=== PATIENT | female | born 1965 | race Caucasian/White ===

== ENCOUNTER 2022-08-24 14:33 | Outpatient (CLI) | payer OTHER, SELFPAY ==
--- NOTE | ~2022-08-24 | XR_ITS ---
XR abdomen/kub 1V DATE: 08/24/2022 15:13 INDICATION: Right flank pain, right groin pain TECHNIQUE: 3 supine AP views COMPARISON: None FINDINGS: Surgical clips overlie the right pelvic area. There is a prominent amount of fecal material in the colon. No bowel obstruction is evident. Associat ed as are intact. No visceromegaly is detected. The lung bases appear clear of infiltrate or consolidation. Heart size appears within normal range. There is asymmetric severe right hip osteoarthritis with suggestion of possible avascular necrosis ri ght femoral head. Moderately severe left hip osteoarthritis. There is mild rotatory dextroscoliosis and prominent multilevel degenerative disc disease of the lumb ar spine. There is degenerative spurring of the lower thoracic spine. IMPRESSION: Prominent amount of fecal material within the colon Surgical clips, right pelvic area Bilateral hip osteoarthritis, very severe the right, moderately severe on the left Suggestion of avascular necrosis of right femoral head Reviewed, dictated and finalized at [facility]. Reviewed, dictated and finalized at location A. 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
--- NOTE | ~2022-08-24 | XR_ITS ---
XR hip RT min 2V DATE: 08/24/2022 15:13 INDICATION: Fall one and half years ago with right groin pain for last few months TECHNIQUE: AP and lateral views of right COMPARISON: 02/16/2010 pelvis FINDINGS: There is severe right hip joint space narrowing, the joint space virtually obliterated. The re is degenerative spurring at the acetabulum and femoral head. There is extensive degenerative cysti c change of the right acetabulum and right femoral head. No fracture or dislocation or bone destruction is noted otherwise. Surgical clips overlie the right pelvis. Right femoral artery prominent calcifications. IMPRESSION: Severe right hip osteoarthritis Reviewed, dictated and finalized at location A. N PEGGER
== END 2022-08-24 14:34 | disposition home or self-care (01) ==
LOC: CHSIMG 14:38
PROVIDERS: PCP Physician Assistant; Visit Provider Physician Assistant
DX: R10.31 Right lower quadrant pain (principal); M16.0 Bilateral primary osteoarthritis of hip; Z96.89 Presence of other specified functional implants
CPT/HCPCS: 73502; 74018

== ENCOUNTER 2023-01-22 15:53 | Outpatient (CLI) | payer OTHER, SELFPAY ==
[2023-01-22 16:33] LABS: Partial Thromboplastin Time 28.3 SEC (23.90-30.70); Prothrombin Time 10.9 Seconds (9.50-12.10)
== END 2023-01-22 15:54 | disposition home or self-care (01) ==
LOC: CHSLAB 15:56
PROVIDERS: PCP Physician Assistant
DX: M16.11 Unilateral primary osteoarthritis, right hip (principal); Z51.81 Encounter for therapeutic drug level monitoring
CPT/HCPCS: 36415; 85610; 85730; 87081

== ENCOUNTER 2023-04-30 13:51 | Outpatient (RCR) | payer OTHER, SELFPAY ==
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
--- NOTE | 2023-04-30 14:43 | OPREHPOC ---
Outpatient Therapy Plan of Care This is a Multidisciplinary Plan of Care that may contain components documented by all disciplines (PT, OT, and ST.) PT Problem 1 PT Problem #1 Knowledge Deficit PT Goal 1 Goal Indepnedent with a HEP addressing c-spine mobility and core strength Target Visit 2 PT Problem 2 PT Problem #2 Pain PT Goal 1 Goal Pt. will provide pain reports of 2/10 at worst with prolonged standing and sitting activities. Target Visit 12 PT Goal 2 Goal Pt. will improve her NDI score by 10-20% indicating improved function. Target Visit 12 PT Problem 3 PT Problem #3 Impaired Range of Motion PT Goal 1 Goal Pt. will present with 70 degrees right c-spine rotation and 35 degrees right lateral flexion of the c-spine to improve visual field. Target Visit 12 PT Problem 4 PT Problem #4 Impaired Strength PT Goal 1 Goal Pt. will improve neck strength to good (4/5) to allow for improved postural awareness.
== END 2023-05-14 23:59 | disposition home or self-care (01) ==
LOC: CHSPT 13:51
PROVIDERS: Visit Provider Physician Assistant
DX: M54.2 Cervicalgia (principal)
CPT/HCPCS: 97014; 97110; 97140; 97161; G0283

== ENCOUNTER 2023-05-22 18:33 | Inpatient (IN) | payer OTHER, SELFPAY ==
[2023-05-22] VITALS (7 sets, daily range): BP systolic 126–150; BP diastolic 67–100; PULSE 93–101; RESP 15–20; TEMP 36.6–37.2; O2SAT 97–100
--- NOTE | ~2023-05-22 | XR_ITS ---
EXAMINATION: XR ankle RT 2V INDICATION: Right ankle pain TECHNIQUE: Two views of the right ankle are obtained. COMPARISON: None available FINDINGS: There are changes of transmetatarsal amputation of the first toe. There is diffuse soft tis gonzalo swelling of the foot. There are advanced degenerative changes of the midfoot and at the talocalca rekha articulation. No definite fracture is identified. There is osteopenia of the calcaneus. IMPRESSION: 1. Advanced degenerative changes of the foot, changes of prior amputation in the toes, and diffuse so ft tissue swelling with possible osteomyelitis of the calcaneus. Reviewed, dictated and finalized at location F. IMPRESSION: 1. Advanced degenerative changes of the foot, changes of prior amputation in th e toes, and diffuse soft tissue swelling with possible osteomyelitis of the velvet caneus.
--- NOTE | ~2023-05-22 | XR_ITS ---
EXAMINATION: XR foot RT 2V INDICATION: Right foot pain TECHNIQUE: Two views of the right foot are obtained. COMPARISON: None available FINDINGS: There are changes of transmetatarsal amputation of the first toe. There is amputation of th e second toe through the middle phalanx. There is diffuse soft tissue swelling of the foot. There are advanced degenerative changes of the midfoot and at the talocalcaneal articulation. No definite frac ture is identified. There is osteopenia of the calcaneus. IMPRESSION: 1. Advanced degenerative changes of the foot, changes of prior amputation in the toes, and diffuse so ft tissue swelling with possible osteomyelitis of the calcaneus. Reviewed, dictated and finalized at location F. IMPRESSION: 1. Advanced degenerative changes of the foot, changes of prior amputation in th e toes, and diffuse soft tissue swelling with possible osteomyelitis of the velvet caneus.
--- NOTE | ~2023-05-22 | XR_ITS ---
EXAMINATION: XR chest 1V portable INDICATION: Chest pain TECHNIQUE: Portable AP chest at 2036 hours COMPARISON: None available FINDINGS: The lungs are free of acute opacities. No pleural effusion or pneumothorax. The cardiomedia stinal silhouette is normal. IMPRESSION: 1. No acute cardiopulmonary abnormality. Reviewed, dictated and finalized at location F.
--- NOTE | ~2023-05-22 | XR_ITS ---
EXAMINATION: XR hip RT 2V w AP pelvis INDICATION: Right hip pain TECHNIQUE: AP view of the pelvis and two views of the right hip are obtained on four radiographs COMPARISON: 08/24/2022 FINDINGS: There are changes of interval right total hip arthroplasty. The femoral component is supero laterally dislocated relative to the acetabular component. No fracture is identified. There are surgi velvet clips in the right pelvis. Calcified atherosclerosis is noted. There is severe lumbar spondylosis . IMPRESSION: 1. Superolateral dislocation of the femoral component of the right hip arthroplasty. Reviewed, dictated and finalized at location F. IMPRESSION: 1. Superolateral dislocation of the femoral component of the right hip arthropl astmariza.
--- NOTE | ~2023-05-22 | XR_ITS ---
EXAMINATION: XR hip RT 1V INDICATION: Post reduction TECHNIQUE: AP view of the right hip is obtained. COMPARISON: 2033 hours FINDINGS: The previously described dislocated right hip arthroplasty has been reduced. Alignment is n ormal. No fracture is identified. There are surgical clips in the right pelvis. Calcified atheroscler osis is noted. IMPRESSION: 1. Reduced right hip arthroplasty dislocation. Reviewed, dictated and finalized at location F.
[2023-05-22] MEDS: fentaNYL CITRATE INJ (*CRX) 100 MCG/2 ML VIAL IV PUSH (18:54)
--- NOTE | 2023-05-22 19:32 | PC.NURSE ---
This RN assumed care of pt at this time.
--- NOTE | 2023-05-22 19:55 | ECG_ITS ---
Measurements Intervals Blessing Rate: 93 P: 56 MD: 200 QRS: 59 QRSD: 115 T: 62 QT: 383 QTc: 477 Interpretive Statements SINUS RHYTHM MODERATE INTRAVENTRICULAR CONDUCTION DELAY [105+ ms QRS DURATION, 80+ ms Q/S IN V1/V2, NO Q AND 60+ ms R IN I/aVL/V5/V6] ABNORMAL ECG NO PREVIOUS ECG AVAILABLE FOR COMPARISON Electronically Signed On 05-23-2023 10:28:21 CDT by Jesse Gilman M.D.
[2023-05-22 20:14] LABS: Basophils Percent Auto 0.5 % (0.2-1.2); Eosinophils Absolute Auto 0.1 K/mm3 (0-0.3); Eosinophils Percent Auto 1.8 % (0-4.4); Hematocrit 36.5 % (37.0-47.0); Hemoglobin 11.9 g/dL (12.0-15.0); Immature Granulocyte Absolute 0.01 K/mm3 (0.00-0.031); Immature Granulocyte Percent A 0.2 % (0-0.5); Lymphocytes Absolute Auto 0.93 K/mm3 (0.9-3.2); Lymphocytes Percent Auto 21.5 % (18.3-44.2); Mean Corpuscular HGB Conc 32.6 g/dl (32-36); Mean Corpuscular Hemoglobin 28.5 pg (26-34); Mean Corpuscular Volume 87.5 fl (80-100); Mean Platelet Volume 7.9 fl (7.4-10.4); Monocytes Absolute Auto 0.5 K/mm3 (0.1-0.6); Monocytes Percent Auto 10.9 % (2.6-8.5); Neutrophils Absolute Auto 2.8 K/mm3 (1.3-6.7); Neutrophils Percent Auto 65.1 % (45.5-73.1); Platelet Count Result 136 k/mm3 (150-375); Red Blood Count 4.17 M/mm3 (4.2-5.4); Red Cell Distribution Width 13.5 % (11.5-14.5); White Blood Count 4.3 K/mm3 (4.5-10.0)
[2023-05-22 20:24] LABS: Alanine Aminotransferase 25 U/L (6-35); Albumin Level 3.9 g/dL (3.5-5.1); Alkaline Phosphatase 112 U/L (38-126); Anion Gap 5 mmol/L (8-16); Aspartate Amino Transferase 55 U/L (14-36); Bilirubin,Total 1.1 mg/dL (0.2-1.3); Blood Urea Nitrogen 13 mg/dL (7-17); Calcium 8.9 mg/dL (8.4-10.2); Carbon Dioxide 29 mmol/L (22-30); Chloride 102 mmol/L (98-107); Estimated Glomerular Filt Rate > 60; Glucose 166 mg/dL (65-110); INR 1.2; Potassium 3.7 mmol/L (3.4-5.0); Prothrombin Time 15.8 Seconds (11.1-14.7); Sodium 136 mmol/L (137-145)
[2023-05-22 20:25] LABS: Partial Thromboplastin Time 33.6 SECONDS (22.3-36.8)
[2023-05-22 20:30] LABS: Ethanol < 10 mg/dL (<10)
--- NOTE | 2023-05-22 21:29 | ED.GENADULT ---
[facility] - General Adult General Chief complaint: Extremity Injury, Lower Stated complaint: HIP DISLOCATION Time Seen by Provider: 05/22/23 19:13 History of Present Illness HPI narrative: Patient brought to the emergency department by EMS. She is complaining of severe right hip pain. States she was getting out of her car when she felt a pop. She believes her hip is dislocated. Also is very swollen right foot appears deformed with scabbed over wounds. She states the wounds have been there for a long time. She is a history of diabetes. Patient appears very anxious and continues to twitch. Denies drug use. States it is from her psych medication Related Data Allergies Allergy/AdvReac Type Severity Reaction Status Date / Time naproxen Allergy Unknown Verified 04/24/23 13:57 Review of Systems Review of Systems: Review of systems negative except for what is documented in the [facility] Family History Family History (System 04/24/23 @ 13:57 by Serena Loaiza) Other Cerebrovascular accident Diabetes mellitus Family history of cardiovascular disease Family history of malignant neoplasm Hypertension Social History Social History (System 04/24/23 @ 13:57 by Serena Loaiza) Smoking status: Light tobacco smoker Alcohol intake: current Exam Narrative: GENERAL: Well-appearing, well-nourished, poor hygiene and twitching HEAD: Normocephalic, atraumatic. EYES: PERRLA and EOMI. ENT: Nares clear, no rhinorrhea or epistaxis. Mucous membranes moist. NECK: Supple. CHEST: Clear to auscultation. No respiratory distress. HEART: Regular rate and rhythm. ABDOMEN: Soft, nontender, nondistended. EXTREMITIEs right leg externally rotated. right foot. swollen with superficial wounds with matting in them SKIN: Warm, dry, no rash. NEURO: No focal deficits. Alert and oriented x3. PSYCH: Normal mood and affect. Course Vital Signs Vital signs: Vital Signs Temperature 36.6 C 05/22/23 18:33 Pulse Rate 93 05/22/23 18:33 Respiratory Rate 20 05/22/23 18:33 Blood Pressure 150/100 H 05/22/23 18:33 Pulse Oximetry 97 05/22/23 18:33 Oxygen Delivery Room Air 05/22/23 18:33 Temperature 36.7 C 05/22/23 23:30 Pulse Rate 98 05/23/23 00:21 Respiratory Rate 16 05/23/23 00:21 Blood Pressure 122/69 05/23/23 00:21 Pulse Oximetry 100 05/23/23 00:21 Oxygen Delivery Room Air 05/22/23 23:30 Procedures Orthopedic Joint Reduction Joint #1: Orthopedic Joint Reduction Date: 05/23/23 Analgesia: procedural sedation Pre-Procedure Neuro Vascular Exam: normal Shoulder Technique Used (if applicable): traction/counter-traction Post-reduction neuro exam: intact Post-reduction vascular: intact Post Reduction X-Ray Obtained: Yes Post Reduction X-Ray Results: reduced Splint Applied: No Patient Tolerated Procedure: well Procedural Sedation Procedural Sedation #1: Presedation Evaluation: Pt alert and oriented Procedure: right hip reduction Time Out: see RN note Informed Consent Obtained: yes Equipment in Room: bag and mask, capnography, monitor car operator, oxygen and pulse oximeter Fentanyl dose (mcg): 50 IV Etomidate dose (mg): 10 Patient Tolerated Procedure: well Complications: none Total Sedation Time (min): 8 Medical Decision Making MDM Narrative Medical decision making narrative: Superolateral dislocation of femoral component of the prosthesis on hip x-ray Foot x-ray shows likely osteomyelitis of calcaneus of right foot. Plan to sedate and reduce hip dislocation then admit for IV antibiotics for osteomyelitis [id number] Patient sedated with ketamine and fentanyl and then the right hip was reduced. Patient tolerated the sedation and procedure well. She continues to exhibit tweaking behavior. She became very aggressive stating that I accused her of using street drugs . Her
[2023-05-22] MEDS: fentaNYL CITRATE INJ (*CRX) 100 MCG/2 ML VIAL 50 MCG IV PUSH (23:00)
[2023-05-22 23:01] LABS: Appearance Urine Clear (Clear); Bacteria Urine None Seen /hpf; Bilirubin Urine Negative (Negative); Blood Urine 3+ (Negative); Color Urine Yellow (Yellow); Glucose Urine UA Negative (Negative); Ketones Urine Negative (Negative); Leukocyte Esterase Ur Negative LEU/UL (Negative); Nitrate Urine Negative (Negative); Non Pathogenic Casts 0-2; Protein Urine Negative (Negative); RBC Urine >100 /hpf (0-2); Squamous Epithelial Cell Urine None seen /hpf (Few); WBC Urine 0-5 /hpf
[2023-05-22 23:03] LABS: Add Urine Microscopic? YES
[2023-05-22] MEDS: ETOMIDATE 20 MG/10 ML AMPUL IV PUSH (23:08)
[2023-05-22 23:10] LABS: Barbiturate Screen Urine Negative (Negative); Benzodiazepines Screen Urine Negative (Negative)
[2023-05-22 23:14] LABS: Cannabinoid Screen Urine Positive (Negative); Cocaine Screen Urine Negative (Negative); Methadone Screen Urine Negative (Negative); Opiate Screen Urine Positive (Negative); Phencyclidine Screen Urine Negative (Negative)
[2023-05-22 23:42] LABS: Amphetamine Screen Urine Positive (Negative)
[2023-05-23 00:21] VITALS: BP 122/69; PULSE 98; RESP 16; O2SAT 100
[2023-05-23] MEDS: ENTER PT WEIGHT XX (00:21)
--- NOTE | 2023-05-23 01:50 | PM.IMHP ---
H&P: HPI History of Present Illness Date/Time: 05/23/23 01:50 Chief Complaint: Right hip pain Narrative: This is a 58-year-old female with past medical history significant for type 2 diabetes mellitus, dystonia, amphetamine use, right diabetic foot. Patient comes to the emergency room due to right hip pain. In emergency room patient was found to have a dislocated right hip was successfully reduced in the emergency room. PATIENT HAS BEEN IN HER USUAL STATE OF HEALTH, DENIES ANY FEVERS, RIGORS, CHILLS, NAUSEA, VOMITING, DIARRHEA. HOWEVER SHE WAS NOTED TO HAVE A RIGHT FOOT A SCAB AND SOME SWELLING AND REDNESS. X-RAY OF THE FOOT SHOWED OSTEOMYELITIS PATIENT IS BEEN ADMITTED FOR FURTHER EVALUATION MANAGEMENT AND TREATMENT. Review of Systems Review of Systems: Right hip dislocation, right hip pain. Constitutional: Constitutional: Denies chills, Denies fever(s), Denies malaise, Denies night sweats and Denies poor appetite Eyes: Eyes: Denies change in vision ENT: Denies dysphagia and Denies odynophagia Cardiovascular: Cardiovascular: Denies chest pain, Denies leg edema, Denies radiating jaw, neck or arm pain and Denies palpitations Gastrointestinal: Gastrointestinal: Denies abdominal pain, Denies dyspepsia, Denies diarrhea, Denies nausea and Denies vomiting Genitourinary: Genitourinary: Denies dysuria and Denies flank pain Musculoskeletal: Musculoskeletal: Denies back pain and Reports arthralgias Integumentary/Breasts: Skin/Breast: Denies rash Neurologic: Denies focal weakness and Denies Sensory deficit (Neuro) Psychiatric: Psychiatric: Reports no additional psychiatric complaints and Reports as per HPI Endocrine: Endocrine: Denies cold intolerance, Denies fatigue, Denies flushing, Denies heat intolerance, Denies polyphagia, Denies polydipsia and Denies palpitations Hematologic/Lymphatic: Hematologic/Lymphatic: Reports no additional hematologic/lymphatic complaints and Reports as per HPI Allergic/Immunologic: Allergic/Immunologic: Reports no additional allergic/immunologic complaints and Reports as per HPI PMF Family History Family History (System 04/24/23 @ 13:57 by Serena Loaiza) Other Cerebrovascular accident Diabetes mellitus Family history of cardiovascular disease Family history of malignant neoplasm Hypertension Social History Social History (System 04/24/23 @ 13:57 by Serena Loaiza) Smoking packs per day: 0.1 Smoking cigarettes per day: 2.0 Years smoked: 40 Smoking pack-years: 4.00 Smoking status: Current every day smoker Tobacco type: cigarettes Alcohol intake: never Substance use: current Substance use type: marijuana Lack of Transportation: No Lack of Food: Never True Current Housing: I Have Housing Concerned About Future Housing: No Difficulty Paying Gas/Electric Bills: No Difficulty Paying for Meds: No Currently Unemployed: No Education: High School Diploma/GED Difficulty w/ Childcare or Family Care: No Spiritual care concerns: No Meds Home Medications and Allergies Home Medications Medication Instructions Recorded Confirmed Type cyclobenzaprine 10 mg tablet 10 mg PO BID 05/23/23 05/23/23 History gabapentin 300 mg capsule 300 mg PO TID 05/23/23 05/23/23 History glipizide 10 mg tablet 10 mg PO BID 05/23/23 05/23/23 History insulin detemir U-100 100 unit/mL 10 unit subcut HS 05/23/23 05/23/23 History (3 mL) subcutaneous pen meloxicam 15 mg tablet 15 mg PO HS 05/23/23 05/23/23 History Allergies Allergy/AdvReac Type Severity Reaction Status Date / Time naproxen Allergy Unknown Verified 04/24/23 13:57 Vital Signs Vital Signs - 24 hr 05/22/23 18:33 05/22/23 19:22 05/22/23 23:04 Temperature 97.9 F Pulse Rate 93 96 99 Pulse Rate [Monitor] Respiratory Rate 20 20 15 Blood Pressure 150/100 H 144/93 H 133/76 Blood Pressure [Left Arm] Pulse Oximetry 97 100 97 Oxygen Delivery Room Air 05/22/23 23:06 05/22/23
[2023-05-23 01:56] VITALS: BMI 30.9
[2023-05-23 02:00] VITALS: BP 148/68; PULSE 105; RESP 18; TEMP 36.3; O2SAT 98
--- NOTE | 2023-05-23 02:00 | ADMGEN ---
This patient, Farzana Bran, was admitted to [facility] Surg Room 306-02. Patient/family oriented to hospital policies and general routines including ID bracelet, bed and alarms, visiting hours, pain management, procedures, bathroom and other care routines, personal items, smoking policy, room service/diet, and visiting hours. Information on how to activate the Rapid Response Team has been discussed. Patient/Family are encouraged to report perceived risks to care and to ask questions if they do not understand what they are told or what they should do.
--- NOTE | 2023-05-23 04:30 | PC.NURSE ---
Patient was escorted out of the facility by charge nurse and two PCT's. Security notified of AMA status and patient disposition.
--- NOTE | 2023-05-23 04:32 | PC.NURSE ---
patient became very agitated because she was not allowed to leave the floor and smoke a cigarette, patient stated she is a grown ass woman and should be able to do what she wants RN and other staff attempted to de-escalate situation, patient still was agitated and wanted to leave. RN gave AMA papers and explained the risks of leaving AMA, patient still wanted to leave, patient signed the papers, and RN removed IV. Patients ride wasn't going to be here until 0500, patient waited in room and started to become very belligerent with RN and staff, patient was cussing at staff, RN and staff escorted patient out, she refused a wheel chair and wanted to walk herself out and patient was screaming at staff i need more babysitters because i obviously don't have enough Patient was escorted from hospital, security was notified, along with mushroom press operator that patient was not allowed to enter the premise unless it was back through ED.
--- NOTE | 2023-05-24 19:52 | P.PNCROSS_ITS ---
Event Note Event Note Event Note: I WAS CALLED TO THE PATIENT'S ROOM AFTER PATIENT INSISTED IN SPEAKING TO THE DO CTOR SHE WAS WANTING TO GO OUTSIDE TO SMOKE A CIGARETTE SHE WAS ADVISED THAT OUR FACILITY IS A SMOKE-FREE FACILITY AND THAT WE CANNOT ALLOW HER TO GO OUTSIDE TO DO SUCH A THING PATIENT EXPRESSED THIS CONTENT AND DECIDED TO LEAVE AMA PATIENT WITH DECISION MAKING CAPACITY. I CAME TO THE ROOM I.E. BRIEFLY TALKED TO THE PATIENT I ASKED HER IF SHE WOULD LIKE A NICOTINE PATCH INSTEAD SHE SAID NO I WANT CIGARETTE . PATIENT LEFT AMA
== END 2023-05-23 04:30 | disposition left against medical advice (07) | DRG 349 ==
LOC: ANHED 05-23 00:51 → ANH3MEDSUR 05-23 01:15
PROVIDERS: Admitting Provider Internal Medicine; Emergency Provider Emergency Medicine; Visit Provider Internal Medicine
DX: T84.020A Dislocation of internal right hip prosthesis, initial encounter (principal); E11.69 Type 2 diabetes mellitus with other specified complication; M86.9 Osteomyelitis, unspecified; G24.9 Dystonia, unspecified; F15.90 Other stimulant use, unspecified, uncomplicated; F17.210 Nicotine dependence, cigarettes, uncomplicated; Z79.4 Long term (current) use of insulin
CPT/HCPCS: 27265; 36415; 71045; 73501; 73502; 73600; 73620; 80053; 80307; 81001; 85025; 85610; 85730; 93005; 96374; 96375; 96376; 99285; J3010; J7030

== ENCOUNTER 2024-04-21 19:42 | Emergency (ER) | payer MEDICARE, MEDICAID, SELFPAY ==
[2024-04-21] VITALS (17 sets, daily range): BP systolic 107–158; BP diastolic 61–78; PULSE 94–105; RESP 13–21; TEMP 36.6–36.7; O2SAT 93–98
--- NOTE | ~2024-04-21 | CT_ITS ---
EXAMINATION: CT brain wo con DATE: 04/21/2024 21:32 INDICATION: head injury . TECHNIQUE: Computed tomography (CT) of the head was performed without intravenous contrast. The mA wa s adjusted according to patient size. Iterative reconstruction technique was employed. The dose-lengt h product was 605.33 mGy-cm. COMPARISON: None. FINDINGS: No acute intracranial hemorrhage or extra-axial fluid collection. No hydrocephalus, mass, or herniation. No acute ischemic infarct. Unremarkable dural venous sinus attenuation. No acute osseous abnormality. The aerated spaces are clear. Bilateral lens replacements. Arterial intracranial calcifications. IMPRESSION: No acute intracranial process. Reviewed, dictated and finalized at location K.
--- NOTE | ~2024-04-21 | CT_ITS ---
EXAMINATION: CT lumbar spine wo con DATE: 04/21/2024 21:32 INDICATION: fall . TECHNIQUE: Computed tomography (CT) of the lumbar spine was performed without intravenous contrast. A utomated exposure control and iterative reconstruction technique were employed. The dose-length produ ct was 1399.35 mGy-cm. COMPARISON: None. FINDINGS: Vertically oriented fracture line through the anterior portion of the T11 vertebral body, j ust barely extending to the left lateral aspect of the vertebral body into the middle column. The ant erior portion of the fracture involves the superior and inferior endplates with extension into the T1 1-T12 disc space. Mild anterior wedging at this level. Vertebral body heights otherwise maintained. Moderate scoliosis. Multilevel moderate-severe degenerative disc disease, most pronounced at L4-5 and L5-S1. 12 mm anterolisthesis at L5-S1. Multilevel minimal grade 1 listheses at multiple additional l evels in the lumbar spine. Bilateral pars defects at L5. Multilevel mild and moderate degrees of mid and lower lumbar facet arthropathy. Severe bilateral neural foraminal narrowing at L5-S1 secondary to degenerative disc and facet changes. Severe central canal narrowing at L2-3 and L3-4 secondary to de generative disc and facet changes. Distended urinary bladder. Incompletely visualized right hip arthroplasty hardware. Surgical clips in the right pelvis. Mild right ureterectasis. Right adrenal adenoma. IMPRESSION: Split type vertebral body fracture involving T11, with marginal involvement of the middle column, pos sibly indicating an unstable injury, and likely traumatic involvement of the T11-T12 disc. Grade 2 anterolisthesis at L5-S1. Bilateral chronic appearing pars defects at L5. Multilevel severe d egenerative disc disease. Severe central canal narrowing at L2-3 and L3-4 secondary to degenerative c hanges. Severe bilateral neural foraminal narrowing at L5-S1 secondary to degenerative changes. Distended urinary bladder with right ureterectasis, correlate for clinical findings of urinary retent ion. Reviewed, dictated and finalized at location K. IMPRESSION: Split type vertebral body fracture involving T11, with marginal involvement of the middle column, possibly indicating an unstable injury, and likely traumatic involvement of the T11-T12 disc. Grade 2 anterolisthesis at L5-S1. Bilateral chronic appearing pars defects at L 5. Multilevel severe degenerative disc disease. Severe central canal narrowing at L2-3 and L3-4 secondary to degenerative changes. Severe bilateral neural for aminal narrowing at L5-S1 secondary to degenerative changes. Distended urinary bladder with right ureterectasis, correlate for clinical find ings of urinary retention.
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
[2024-04-21] MEDS: HYDROcodone/acetaminophen (*CRX) 7.5-325 MG TABLET 1 TAB PO (20:59)
[2024-04-21 21:13] LABS: Basophils Percent Auto 0.5 % (0.2-1.2); Eosinophils Absolute Auto 0.1 K/mm3 (0-0.3); Eosinophils Percent Auto 3.6 % (0-4.4); Hematocrit 38.9 % (37.0-47.0); Hemoglobin 12.8 g/dL (12.0-15.0); Immature Granulocyte Absolute 0.01 K/mm3 (0.00-0.031); Immature Granulocyte Percent A 0.3 % (0-0.5); Lymphocytes Absolute Auto 0.98 K/mm3 (0.9-3.2); Lymphocytes Percent Auto 25.3 % (18.3-44.2); Mean Corpuscular HGB Conc 32.9 g/dl (32-36); Mean Corpuscular Hemoglobin 28.4 pg (26-34); Mean Corpuscular Volume 86.3 fl (80-100); Monocytes Absolute Auto 0.5 K/mm3 (0.1-0.6); Monocytes Percent Auto 12.4 % (2.6-8.5); Neutrophils Absolute Auto 2.2 K/mm3 (1.3-6.7); Neutrophils Percent Auto 57.9 % (45.5-73.1); Platelet Count Result 128 k/mm3 (150-375); Red Blood Count 4.51 M/mm3 (4.2-5.4); Red Cell Distribution Width 13.9 % (11.5-14.5); White Blood Count 3.9 K/mm3 (4.5-10.0)
[2024-04-21 21:28] LABS: Alanine Aminotransferase 22 U/L (6-35); Albumin Level 3.7 g/dL (3.5-5.1); Alkaline Phosphatase 201 U/L (38-126); Anion Gap 8 mmol/L (4-12); Aspartate Amino Transferase 37 U/L (14-36); Bilirubin,Total 0.4 mg/dL (0.2-1.3); Blood Urea Nitrogen 9 mg/dL (7-17); Calcium 8.8 mg/dL (8.4-10.2); Carbon Dioxide 29 mmol/L (22-30); Chloride 99 mmol/L (98-107); Estimated CRCL calculation 108 ml/min; Estimated Glomerular Filt Rate > 60; Glucose 134 mg/dL (65-110); Potassium 3.8 mmol/L (3.4-5.0); Sodium 136 mmol/L (137-145)
--- NOTE | 2024-04-21 21:50 | PC.NURSE ---
Pt called out using call light stating she needed to use the restroom. Pt reports she stands and pivots to use restroom at home. This RN offered pt bedside commode, bedpan or external female catheter. Pt refuses to stand, roll over, or use purewick. Pt requests catheter being placed. Patient educated that if she is able to use restroom standing and pivoting at home we typically do not place catheters. EDP made aware.
[2024-04-22] VITALS (13 sets, daily range): BP systolic 101–129; BP diastolic 62–76; PULSE 100–106; RESP 13–25; O2SAT 98–99
[2024-04-22] MEDS: HYDROcodone/acetaminophen (*CRX) 7.5-325 MG TABLET 1 TAB PO (02:09)
== END 2024-04-22 03:45 ==
PROVIDERS: Emergency Provider Registered Nurse
DX: S06.0X9A Concussion with loss of consciousness of unspecified duration, initial encounter (principal); G89.29 Other chronic pain; W05.0XXA Fall from non-moving wheelchair, initial encounter
CPT/HCPCS: 36415; 70450; 72131; 80053; 85025; 99284; A9270

== ENCOUNTER 2024-08-16 12:14 | Emergency (ER) | payer MEDICARE, MEDICAID, SELFPAY ==
[2024-08-16] VITALS (16 sets, daily range): BP systolic 80–122; BP diastolic 49–72; PULSE 108–121; RESP 16–25; TEMP 37.9; O2SAT 89–97
--- NOTE | ~2024-08-16 | CT_ITS ---
EXAMINATION: CT brain wo con DATE: 08/16/2024 13:36 INDICATION: Unresponsive. Altered mental status. TECHNIQUE: Computed tomography (CT) of the head was performed without intravenous contrast. The mA wa s adjusted according to patient size. Iterative reconstruction technique was employed. Exam dose: 68 1.00 mGy-cm total exam DLP. COMPARISON: None FINDINGS: No intracranial mass lesion or hemorrhage, midline shift or mass effect. Normal ventricular size. No subdural or epidural hematoma. No fracture or bone destruction of the cranial vault. 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 IMPRESSION: No significant intracranial abnormality Reviewed, dictated and finalized at Location A. Reviewed, dictated and finalized at location A. UNICATIONS STATION MANAGER
--- NOTE | ~2024-08-16 | XR_ITS ---
XR chest 1V portable DATE: 08/16/2024 13:36 INDICATION: Hypoxia. Altered mental status. TECHNIQUE: Portable upright AP chest on 08/16/2024 at 1323 hours COMPARISON: 05/22/2023 AP portable chest FINDINGS: There is patchy consolidation in the left mid and particularly left lower lung field and to a lesser extent right lower lung. Bilateral pneumonia is suspected. Aspiration pneumonitis is less l ikely. Heart size appears normal. Mild aortic unfolding. No hilar or mediastinal enlargement. No pleural effusion or pulmonary vascular congestion or pneumothorax is detected. IMPRESSION: Left mid and bilateral lower lung infiltrates suggesting bilateral pneumonia Reviewed, dictated and finalized at location A. L MOLDER
--- NOTE | 2024-08-16 12:32 | ED_ITS ---
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 The patient received 2 mg of Narcan without any improvement mental status. On arrival to the ED the patient is awake. The patient is following verbal commands. She moves all her limbs. She is sluggish. -- right lower extremity wound measuring 2 cm-- crusted -- left lower extremity swelling -- Fever. Temperature was noted to be 37.9 in the ED. -- oxygen saturation was noted to be 88%. Patient denied shortness of breath the patient lives at home by herself and moves around using a wheelchair. When EMS went to her house they have found drug paraphernalia. She was noted to be unresponsive and lying in the bed. MD complaint: altered mental status Context: drug abuse Treatments prior to arrival: IV fluid, oxygen and other ( Narcan 2 mg) Related Data Home Medications ?Medication ?Instructions ?Recorded ?Confirmed ?Last Taken ?Type cyclobenzaprine 10 mg tablet 10 mg PO BID 05/23/23 05/23/23 Unknown History gabapentin 300 mg capsule 300 mg PO TID 05/23/23 05/23/23 Unknown History glipizide 10 mg tablet 10 mg PO BID 05/23/23 05/23/23 Unknown History insulin detemir U-100 100 unit/mL 10 unit subcut 05/23/23 05/23/23 Unknown History (3 mL) subcutaneous pen meloxicam 15 mg tablet 15 mg PO HS 05/23/23 05/23/23 Unknown History Allergies Allergy/AdvReac Type Severity Reaction Status Date / Time naproxen Allergy Unknown Hives Verified 08/16/24 13:08 Review of Systems 2 Review of Systems: in no distress. Constitutional: Constitutional: Reports as per HPI, Reports no additional constitutional complaints and Reports fever(s) Eyes: Eyes: Reports as per HPI and Reports no additional eye complaints ENT: Reports system reviewed and no additional complaints, except as documented and Reports as per HPI Cardiovascular: Cardiovascular: Reports as per HPI and Reports no additional cardiovascular complaints Respiratory: Respiratory: Reports as per HPI and Reports no additional respiratory complaints Gastrointestinal: Gastrointestinal: Reports as per HPI and Reports no additional gastrointestinal complaints Genitourinary: Genitourinary: Reports no additional female genitourinary complaints and Reports as per HPI Musculoskeletal: Musculoskeletal: Reports no additional musculoskeletal complaints and Reports as per HPI Comments: Chronic low back pain Integumentary/Breasts: Skin/Breast: Reports system reviewed and no additional complaints, except as docu Comments: right leg has a 2 cm ulcer Neurologic: Reports system reviewed and no additional complaints, except as documented, Reports as per HPI and Reports confusion Psychiatric: Psychiatric: Reports no additional psychiatric complaints and Reports as per HPI Endocrine: Endocrine: Reports no additional endocrine complaints and Reports as per HPI Hematologic/Lymphatic: Hematologic/Lymphatic: Reports no additional hematologic/lymphatic complaints and Reports as per HPI Allergic/Immunologic: Allergic/Immunologic: Reports no additional allergic/immunologic complaints and Reports as per HPI PMFSH Past Medical History Medical History (Updated 08/16/24 @ 16:07 by Antonio Goyal MD) Cervical vertebral fusion TBI (traumatic brain injury) Family History Family History Other Cerebrovascular accident Diabetes mellitus Family history of cardiovascular disease Family history of malignant neoplasm Hypertension Social History Social History Smoking packs per day: 0.1 Smoking cigarettes per day: 2.0 Years smoked: 40 Smoking pack-years: 4.00 Smoking status: Current every day smoker Tobacco type: cigarettes Alcohol intake: never Substance use: current Substance use type: marijuana Lack of Transportation: No Lack of Food: Never True Current Housing: I Have Housing Concerned About Future Housing: No Difficulty Paying Gas/Electric Bills: No Difficulty Paying for Meds: No Currently Unemployed: No Education: High School Diploma/GED Difficulty w/ Childcare or Family Care: No Spiritual care concerns: No Exam 2 Narrative: temperature of 37.9? oxygen saturation of 89% on room air pulse is 121. Blood pressure 122/59 Const: General: ill appearing Orientation/consciousness: patient oriented x3 Limitations: altered mental status Other: patient is drowsy and sluggish. HENMT: Head: normal to inspection Ears: external ears normal F michael/Nose/Sinus: Normal external nose present Face and sinus: normal facial exam Mouth: Yes dry mucous membranes ( Oral crusts which are erythematous.) Throat: posterior oropharynx normal Eyes: Conjunctivae: conjunctivae normal Pupils: Equal, round and reactive pupils present EOM: EOMs intact bilaterally Direct Ophthalmoscopy: no photophobia Neck: Neck: normal visual inspection, no lymphadenopathy and no meningeal signs Chest: Chest palpation & inspection: normal inspection of the chest Resp: Effort & Inspection: normal respiratory effort Auscultation: d iminished lung sounds Cardio: Rate: regular rate Rhythm: regular rhythm GI: GI Palp: Yes Soft to palpation Other: No tenderness/ rigidity /rebound. : General: Yes no CVA tenderness Back/Spine/Pelvis: Back: no CVA tenderness Skin: General skin exam: normal color Other: 2 cm ulcer in the right lower leg. Neuro: General: patient oriented x3, moves all extremities, no meningeal signs, no focal motor deficits and CN's II-XI intact bilaterally Cranial nerves: Yes Nystagmus not present Speech: normal speech Gait exam (Neuro): Normal gait present Extrem: Other: swelling of the left lower extremity Course Course Emergency Course: unresponsiveness-- with spontaneous resolution. CT of the head did not show any acute findings. Normal ammonia level. Sepsis secondary to UTI/bilateral lung infiltrates-- patient has been cultured and received vancomycin and cefepime. Patient was noted to have elevated lactate and received 3 L of IV fluids. Diabetes mellitus with hyperglycemia. No anion gap acute renal failure (secondary to prerenal, sepsis, rhabdo, NSAID)/ metabolic acidosis-- BUN/ creatinine was noted to be 38/1.8. Baseline creatinine is 0.6. acute hypoxic respiratory failure secondary to bilateral lung infiltrates /positive D-dimer. Negative for influenza/ RSV /COVID. elevated troponin of 74.5 / elevated proBNP of 3219. EKG did not show any acute findings. Vital Signs Vital signs: Vital Signs Temperature 37.9 C H 08/16/24 12:14 Pulse Rate 121 H 08/16/24 12:14 Respiratory Rate 16 08/16/24 12:14 Blood Pressure 122/59 L 08/16/24 12:14 Pulse Oximetry 89 L 08/16/24 12:14 Oxygen Delivery Room Air 08/16/24 12:14 Temperature 37.9 C H 08/16/24 12:14 Pulse Rate 109 H 08/16/24 16:01 Respiratory Rate 21 H 08/16/24 16:01 Blood Pressure 111/58 L 08/16/24 16:01 Pulse Oximetry 94 08/16/24 16:01 Oxygen Delivery Nasal Cannula 08/16/24 16:01 Oxygen Flow Rate 3 08/16/24 16:01 MDM - Altered Mental Status MDM Narrative Medical decision making narrative: Altered mental status sepsis secondary to UTI/ pneumonia acute renal failure acute hypoxic respiratory failure secondary to bilateral pneumonia, positive D-dimer elevated CK Differential Diagnosis Differential diagnosis: Likely alcoholic intoxication and altered mental status Medical Records Attestation: I reviewed the patient's medical records. Lab Data Attestation: I reviewed the patient's lab results. 08/16/24 12:57 08/16/24 15:27 Labs: Lab Results 08/16/24 08/16/24 08/16/24 Range/Units 12:57 13:45 15:27 WBC 16.6 H (4.8-10.8) K/mm3 RBC 4.53 (4.20-5.40) M/mm3 Hgb 12.9 (12.0-15.0) g/dL Hct 39.0 (35.0-49.0) % MCV 86.1 (78.0-102.0) fL MCH 28.5 (27.0-31.0) pg MCHC 33.1 (32-36) g/dL RDW 16.0 H (11.6-14.4) % Plt Count 111 L (150-420) K/mm3 MPV 9.4 (9.2-11.8) fl Immature Gran % (Auto) Not Reportable Neut % (Auto) Not Reportable Lymph % (Auto) Not Reportable [place] % (Auto) Not Reportable Eos % (Auto) Not Reportable Baso % (Auto) Not Reportable Lymph # (Auto) Not Reportable [place] # (Auto) Not Reportable Eos # (Auto) Not Reportable Baso # (Auto) Not Reportable Abs Immat Gran (auto) Not Reportable Absolute Neuts (auto) Not Reportable Absolute Nucleated RBC Not Reportable Total Counted 100 Neutrophils % (Manual) 84 H (46-73) % Band Neutrophils % 6 (0-6) % Lymphocytes % (Manual) 5 L (18-44) % Monocytes % (Manual) 4 (3-9) % Metamyelocytes % 1 % Nucleated RBC % Not Reportable Abs Neuts (Manual) 14.94 H (1.7-7.2) K/mm3 Abs Lymphs (Manual) 0.83 L (1.1-4.5) K/mm3 Abs Monocytes (Manual) 0.66 (0.1-0.90) K/mm3 Nucleated RBCs 1 % Platelet Estimate Slightly decreased (Adequate) Schistocytes Not Reportable PT 16.9 H (9.50-12.1) Seconds INR 1.6 APTT 33.2 H (23.9-30.70) Sec D-Dimer 11.83 H* (0.19-0.50) mg/L Sodium 135 L 138 (136-145) mmol/L Potassium 3.5 4.2 (3.5-5.1) mmol/L Chloride 98 102 (98-108) mmol/L Carbon Dioxide 20 L 24 (21-32) mmol/L Anion Gap 17 H 12 (4-12) mmol/L BUN 33 H 33 H (7-18) mg/dL Creatinine 1.80 H 1.78 H (0.55-1.02) mg/dL Estim Creat Clear Calc 37 38 ml/min Estimated GFR 29 L 29 L (59 - ) Glucose 260 H 252 H (70-99) mg/dL Calculated Osmolality 296 H 302 H (285-295) mOsm/kg Lactic Acid 6.3 H 6.1 H (0.4-2.0) mmol/L Calcium 8.3 L 7.9 L (8.5-10.1) mg/dL Magnesium 1.5 L (1.8-2.4) mg/dL Total Bilirubin 2.1 H (0.00-1.00) mg/dL AST 113 H (15-37) U/L ALT 35 (14-59) U/L Alkaline Phosphatase 118 H (46-116) U/L Ammonia 31 (11-32) umol/L Total Creatine Kinase 2251 H (26-192) U/L Troponin I 74.5 H* 65.3 H* (0.00-60.4) ng/L NT-Pro-B Natriuret Pep 3219 H (0-125) pg/mL Total Protein 7.8 (6.4-8.2) g/dL Albumin 2.4 L (3.4-5.0) g/dL Lipase 27 (16-77) U/L TSH 0.11 L (0.36-3.74) uIU/mL Urine Color Dark joseph (Yellow) Urine Appearance Cloudy A (Clear) Urine pH 5.5 (5.0-8.0) Ur Specific [place] >= 1.030 H (1.010-1.020) Urine Protein 3+ H (Negative) Urine Glucose (UA) Negative (Negative) Urine Ketones Trace H (Negative) Ur Blood (Man) 3+ H (Negative) Urine Nitrate Positive H (Negative) Urine Bilirubin 1+ H (Negative) Urine Urobilinogen 1.0 (0.2-1.0) mg/dL Leukocyte Esterase Rfl 1+ H (Negative) UDAY/UL Urine RBC 11-20 H (0-2) /hpf Urine WBC 21-30 H (0-3) /hpf Urine Bacteria 4+ H (None) /hpf Urine Opiates Screen Negative (Negative) Urine Methadone Screen Negative (Negative) Ur Barbiturates Screen Negative (Negative) Ur Phencyclidine Scrn Negative (Negative) Ur Amphetamine Screen Negative (Negative) U Benzodiazepines Scrn Negative (Negative) Urine Cocaine Screen Negative (Negative) U Cannabinoids Screen Negative (Negative) Influenza A (RT-PCR) Negative (Negative) Influenza B (RT-PCR) Negative (Negative) RSV (RT-PCR) Negative (Negative) SARS-CoV-2 RNA (RT-PCR) Negative (Negative) ABG Data ABG results: 08/16/24 12:57 Puncture Site Right radial ABG pH 7.46 H ABG pCO2 25.5 L ABG pO2 72.8 L ABG PO2/FiO2 Ratio Not Reportable ABG HCO3 17.9 L ABG O2 Saturation 94.0 L ABG O2 Content 18.1 ABG Base Excess -4.2 L A-a Gradient Not Reportable Oxyhemoglobin 93.2 L O2 Delivery Device Nasal cannula O2 Liters/Min 3.0 Discharge Plan Discharge Clinical Impression: Altered mental status Qualifiers: Altered mental status type: disorientation Qualified Code(s): R41.0 - Disorientation, unspecified Acute renal failure Qualifiers: Acute renal failure type: unspecified Qualified Code(s): N17.9 - Acute kidney failure, unspecified Acute respiratory failure Qualifiers: Respiratory failure complication: hypoxia Qualified Code(s): J96.01 - Acute respiratory failure with hypoxia Bilateral pneumonia Qualifiers: Pneumonia type: due to unspecified organism Lung location: unspecified part of lung Qualified Code(s): J18.9 - Pneumonia, unspecified organism Additional Instructions: transfer patient to [facility] Patient Language: Khmer Prescriptions: No Action cyclobenzaprine 10 mg tablet 10 mg PO BID meloxicam 15 mg tablet 15 mg PO HS glipizide 10 mg tablet 10 mg PO BID gabapentin 300 mg capsule 300 mg PO TID Levemir FlexTouch U100 Insulin 100 unit/mL (3 mL) insulin pen 10 unit SUBCUT HS Follow-up/Referrals: UNKNOWN,DOCTOR [Primary Care Provider] - Time of Disposition: 16:40
--- NOTE | 2024-08-16 12:32 | PC.NURSE ---
PATIENT IS NOW ANSWERING QUESTIONS, PATIENT OPEN EYES SPONTANEOUSLY. PATIENT DENIES DOING ANY DRUGS AT HOME.
--- NOTE | 2024-08-16 12:44 | ECG_ITS ---
Test Date: 2024-08-16 13:11:52 Measurements Intervals [place] Rate: 113 P: -20 NH: 153 QRS: 78 QRSD: 113 T: 52 QT: 371 QTc: 510 Interpretive Statements SINUS TACHYCARDIA MODERATE INTRAVENTRICULAR CONDUCTION DELAY [110+ ms QRS DURATION] No previous ECG available for comparison Electronically Signed On 08-19-2024 17:41:37 BALLISTIC TECHNICIAN by Jony Orellana M.D.
[2024-08-16] MEDS: LACTATED RINGERS 1,000 ML 999 ML IV CONT (13:00)
--- NOTE | 2024-08-16 13:03 | PC.NURSE ---
LAB HAS FINISHED DRAWING BLOOD AND ABG. REILLY BARRON, AT THE BEDSIDE COMPLETING EKG. WILL PAGE CT WHEN EKG IS FINISHED
[2024-08-16 13:11] LABS: Hemoglobin 12.9 g/dL (12.0-15.0); Mean Corpuscular HGB Conc 33.1 g/dL (32-36); Mean Corpuscular Hemoglobin 28.5 pg (27.0-31.0); Mean Corpuscular Volume 86.1 fL (78.0-102.0); Mean Platelet Volume 9.4 fl (9.2-11.8); Platelet Count Result 111 K/mm3 (150-420); Red Blood Count 4.53 M/mm3 (4.20-5.40); White Blood Count 16.6 K/mm3 (4.8-10.8)
[2024-08-16 13:12] LABS: Base Excess ABG -4.2 mmol/L (0-2); HCO3 ABG 17.9 mmol/L (23-29); Oxygen Content ABG 18.1 %vol (16.0-22.0); Oxyhemoglobin 93.2 % (94-100); PCO2 ABG 25.5 mmHg (35-45); PO2 ABG 72.8 mmHg (80-90); pH ABG 7.46 (7.35-7.45)
[2024-08-16 13:17] LABS: Device NASAL CANNULA; Modified Allen's Test Pass; Site Drawn RIGHT RADIAL
--- NOTE | 2024-08-16 13:21 | PC.NURSE ---
PATIENT TRANSPORTED TO CT VIA STRETCHER
[2024-08-16 13:27] LABS: Band Neutrophils Percent 6 % (0-6); Lymphocytes Absolute Manual 0.83 K/mm3 (1.1-4.5); Lymphocytes Percent Manual 5 % (18-44); Monocytes Absolute Manual 0.66 K/mm3 (0.1-0.90); Monocytes Percent Manual 4 % (3-9); Neutrophils Absolute Manual 14.94 K/mm3 (1.7-7.2); Neutrophils Percent Manual 84 % (46-73); Total Cells Counted 100
[2024-08-16 13:28] LABS: Lactic Acid Reflex 6.3 mmol/L (0.4-2.0); Metamyelocytes Percent 1 %; Nucleated Red Blood Cells 1 %; Platelet Estimate Slightly Decreased (Adequate)
[2024-08-16 13:29] LABS: INR 1.6; Partial Thromboplastin Time 33.2 Sec (23.9-30.70); Prothrombin Time 16.9 Seconds (9.50-12.1)
[2024-08-16 13:31] LABS: D Dimer 11.83 mg/L (0.19-0.50)
[2024-08-16 13:37] LABS: Alanine Aminotransferase 35 U/L (14-59); Albumin Level 2.4 g/dL (3.4-5.0); Alkaline Phosphatase 118 U/L (46-116); Ammonia 31 umol/L (11-32); Anion Gap 17 mmol/L (4-12); Aspartate Amino Transferase 113 U/L (15-37); Bilirubin,Total 2.1 mg/dL (0.00-1.00); Blood Urea Nitrogen 33 mg/dL (7-18); Calcium 8.3 mg/dL (8.5-10.1); Carbon Dioxide 20 mmol/L (21-32); Chloride 98 mmol/L (98-108); Creatine Kinase 2251 U/L (26-192); Estimated CRCL calculation 37 ml/min; Estimated Glomerular Filt Rate 29; Glucose 260 mg/dL (70-99); Lipase 27 U/L (16-77); Magnesium 1.5 mg/dL (1.8-2.4); NT Pro B Type Natriuretic Pept 3219 pg/mL (0-125); Osmolality Calculated 296 mOsm/kg (285-295); Potassium 3.5 mmol/L (3.5-5.1); Sodium 135 mmol/L (136-145); Thyroid Stimulating Hormone 0.11 uIU/mL (0.36-3.74); Total Protein 7.8 g/dL (6.4-8.2)
[2024-08-16 13:38] LABS: Troponin I 74.5 ng/L (0.00-60.4)
[2024-08-16 13:43] LABS: Influenza A QL RT-PCR Negative (Negative); Influenza B QL RT-PCR Negative (Negative); RSV RNA, RT-PCR Negative (Negative); SARS-CoV-2 RNA PCR Negative (Negative)
--- NOTE | 2024-08-16 13:45 | PC.NURSE ---
DAUGHTER CALLED AND SPOKE WITH MARKOS COSTA. REPORTS THAT INVOICE CODER WENT TO THE HOME TO CHECK ON HER AND SHE IS THE ONE WHO CALLED 911. EMS WENT TO HOME YESTERDAY FOR ASSIST UP.
[2024-08-16 13:50] LABS: Appearance Urine Cloudy (Clear); Bilirubin Urine 1+ (Negative); Blood Urine 3+ (Negative); Glucose Urine UA Negative (Negative); Ketones Urine Trace (Negative); Leukocyte Esterase Ur 1+ LEU/UL (Negative); Nitrate Urine Positive (Negative); Protein Urine 3+ (Negative); Specific Grav Ur >= 1.030 (1.010-1.020); pH Urine 5.5 (5.0-8.0)
[2024-08-16 13:54] LABS: Add Urine Microscopic? YES; Bacteria Urine 4+ /hpf; Color Urine Dark Amber (Yellow); WBC Urine 21-30 /hpf (0-3)
[2024-08-16 13:56] LABS: Amphetamine Screen Urine Negative (Negative); Barbiturate Screen Urine Negative (Negative); Benzodiazepines Screen Urine Negative (Negative); Cannabinoid Screen Urine Negative (Negative); Cocaine Screen Urine Negative (Negative); Methadone Screen Urine Negative (Negative); Opiate Screen Urine Negative (Negative); Phencyclidine Screen Urine Negative (Negative)
[2024-08-16] MEDS: SODIUM CHLORIDE 0.9% IV 1,000 ML 999 ML IV CONT (14:20)
[2024-08-16] MEDS: CEFEPIME 2 GM/NS 50 ML 2 GM/50 ML BAG IVPB (14:21)
--- NOTE | 2024-08-16 14:29 | PC.NURSE ---
PATIENT IS RESTING ON STRETCHER. SOLID WASTE FACILITY OPERATOR IN PLACE. ROLLINS CATHETER DRAINING DARK SOPHIE URINE. IV INFUSING TO LEFT WRIST. PATIENT RESPONSIVE TO PAINFUL STIMULI. ER PROVIDER AWARE OF ALL UPDATES AND VITAL SIGNS
[2024-08-16] MEDS: VANCOMYCIN 1,000 MG/NS 250 ML 1,000 MG/250 ML BAG 250 MG IVPB (15:02)
[2024-08-16] MEDS: INSULIN HUMAN REGULAR (*BKC) 1,000 UNITS/10 ML VIAL 8 UNITS SUB-Q (15:06)
--- NOTE | 2024-08-16 15:16 | PC.NURSE ---
NOTIFIED JENNIFER WITH LAB THAT THERE ARE BLOOD WORK ORDERS FOR 1500
[2024-08-16 15:51] LABS: Anion Gap 12 mmol/L (4-12); Blood Urea Nitrogen 33 mg/dL (7-18); Calcium 7.9 mg/dL (8.5-10.1); Carbon Dioxide 24 mmol/L (21-32); Chloride 102 mmol/L (98-108); Estimated CRCL calculation 38 ml/min; Estimated Glomerular Filt Rate 29; Glucose 252 mg/dL (70-99); Lactic Acid Reflex 6.1 mmol/L (0.4-2.0); Osmolality Calculated 302 mOsm/kg (285-295); Potassium 4.2 mmol/L (3.5-5.1); Sodium 138 mmol/L (136-145)
[2024-08-16 15:53] LABS: Troponin I 65.3 ng/L (0.00-60.4)
[2024-08-16 16:05] LABS: Reflex Lactic Acid Yes or No Add Lactic
--- NOTE | 2024-08-21 14:41 | PC.NURSE ---
PRELIMINARY BLOOD CULTURE RESULTS X2: NO GROWTH TO DATE
--- NOTE | 2024-08-21 14:49 | PC.NURSE ---
PRELIMINARY URINE CULTURE RESULTS: GREATER THAN 100,000 CFU/ML OS ESCHERICHIA COLI. JULISSA MON AT [facility] IN [place] NOTIFIED OF RESULTS. [phone].
--- NOTE | 2024-08-22 13:12 | PC.NURSE ---
FINAL URINE CULTURE REPORT; ESCHERICHIA COLI; PATIENT TRANSFERED TO [facility] IN [place]. FAXED REPORT TO [phone], PATIENT IS NOW IN ROOM 611
--- OUTSIDE RECORDS SUMMARY | 2024-08-23 18:33 | XMS_ITS | Encounter Summary ---
Author Organization [facility] Health Address [address] [place] [address] Care Team Providers Care [employer] Name Role Phone Unavailable Primary Care Provider Unavailabl e Encounter Details Date Type Department Care Team (Late st Contact Info) Description 12/18/2023 Orders Only [facility] 5N ACUTE [address] [place] [id number] Mignon Montoya MD [address] [place] [address] Pain, unspecified Social History Tobacco Use Types Packs/Day Years Used Date Smoking Tobacco: Every Day Cigarettes Smokeless Tobacco: Never Alcohol Use Standard Drinks/Week Comments Yes 0 (1 standard drink = 0.6 oz pur e alcohol) occ AUDIT-C Answer Date Recorded Q1: How often do you have a drink containing alc ohol? Monthly or less 12/17/2023 Q2: How many drinks containi ng alcohol do you have on a typical day when you are drinking? 3 or 4 12/17/2023 Q3: How often do you have si x or more drinks on one occasion? Monthly 12/17/2023 Overall Financial Resource Strain (CARDIA) Answe r Date Recorded How hard is it for you to pa y for the very basics like food, housing, medical care, and heating? Somewhat hard 12/17/2023 [facility] [place] [facility] Occupat ional [facility] - Occupational Stress Questionnaire Answer Date Recorded Do you feel stress - tense, restless, nervous, or anxious, or unable to sleep at night because your mind is troubled all the time - these days? Not at all 12/17/2023 Hunger Vital Sign Answer Date Recorded Within the past 12 months, y ou worried that your food would run out before you got the money to buy more. Sometimes true Within the past 12 months, t he food you bought just didn't last and you didn't have money to get more. Sometimes true 01/2024 PRAPARE - Transportation Answer Date Re corded In the past 12 months, has l ack of transportation kept you from medical appointments or from getting medications? No 01/2024 In the past 12 months, has l ack of transportation kept you from meetings, work, or from getting things needed for daily living? No 12/17/2023 Housing Stability Vital Sign Answer Compa e Recorded In the last 12 months, was t here a time when you were not able to pay the mortgage or rent on time? No 12/17/2023 In the last 12 months, how many places have you lived? 1 12/17/2023 In the last 12 months, was t here a time when you did not have a steady place to sleep or slept in a retirement (including now)? No 12/17/2023 Sex and Gender Information Value Date Recorded Sex Assigned at Not on file Gender Identity Not on file Sexual Orientation Not on file documented as of this encounter Functional Status Functional Status Response Date of Assess ment Is person deaf or have serious hearing difficult y? No 12/17/2023 Is person blind or have serious difficulty seein g? No 12/17/2023 Does person have serious dif ficulty walking/climbing stairs? Yes 12/17/2023 Does person have difficulty dressing/bathing? Ye s 12/17/2023 Does person have difficulty doing errands alone? Yes 12/17/2023 Cognitive Status Response Date of Assessm ent Does person have difficulty concentrating/remembering/making decisions? No 12/17/2023 documented as of this encounter Plan of Treatment Not on file documented as of this encounter Visit Diagnoses Diagnosis Pain, unspecified documented in this encounter Additional Health Concerns Infection Onset Date Last Indicated Resolved Time COVID-19 Under Investigation 12/14/2023 12/14/2023 12/25/2023 4:33 AM CDT MRSA Hx 12/17/2023 12/17/2023 documented as of this encounter
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
--- OUTSIDE RECORDS SUMMARY | 2024-08-23 18:33 | XMS_ITS | Encounter Summary ---
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 your treatment and rehabilitation. Here aresome steps you can take to make your adjustment easier: ?? Take good care of yourself. Get regular exercise and eat a healthy diet. Get regular hours of sleep. ?? Have an active social life. Let your friends and family become part of your recovery. Take advantage of their help and emotional support. ?? Find ways to reduce your stress. Ideas include deep breathing, recreation, massage, meditation, music, and spending quality time with loved ones. ?? Be patient with your recovery. Everybody?s brain recovers at its own pace. Give yourself more time to do the things you need to do. ?? Don?t treat your symptoms with alcohol or drugs. These substances make symptoms worse. And they'll slow down the healing process. Adjusting to life after TBI is hard. But it does get better. Remember that you're not alone. Work with your healthcare team and get support from friends and family. Let your healthcare provider know about any symptoms of adjustment disorder. Treatment is available and it works. Last Reviewed Date: 2021 ?? [id number] [employer]. All rights reserved. This information is not intended as a substitute for professional medical care. Always follow your healthcare professional's instructions. * Clinical References AVS - Jose Rafael Carreon APRN-CNP - 12/18/2023 3:25 PM CDT 12798 Substance Abuse and Traumatic Brain Injury A traumatic brain injury (TBI) is a shock or blow to your head that changes the way your brain works. A TBI can change the way you think, feel, and act. Substance abuse is using a substance, like alcohol or a drug, in an uncontrolled way that hurts you or those around you. Many people with a TBI also have problems with substance abuse. Substance abuse can lead to a TBI. Studies show that at least 3 in 10 people hospitalized for a TBIhave a history of substance abuse. This relationship can work in the opposite way, as well. Having a TBI can lead to substance abuse, even if you haven?t had a problem with substance abuse in the past. Alcohol is the most common type of substance abuse problem seen in people with a TBI. Why substance abuse leads to TBI Just like a TBI, substance abuse changes the way you think, act, and feel. Being intoxicated affects your vision, coordination, and judgment. This can lead to risky behavior and poor decisions that cause TBI accidents and injuries. Why TBI leads to substance abuse Symptoms of a TBI include slowed thinking, mood swings, depression, anxiety, and headaches. Living with these symptoms can be very frustrating. Some people try to ease their problems with alcohol or drugs. This is very dangerous. A TBI may make your brain more easily affected by alcohol and drugs. The dangers of misusing alcohol or drugs after a TBI If you've been diagnosed with a TBI, you need to know how dangerous it is to try to ease your symptoms with alcohol or drugs. Mixing a TBI with misuse of alcohol or drugs raises your risk for: ?? Slower recovery ?? TBI symptoms getting worse ?? Making bad decisions ?? Having another TBI ?? Seizures ?? Family and job problems ?? Suicide What to do Knowing the dangers of substance abuse after TBI is the first step. Many people who've had a substance abuse problem in the past actually stop using drugs and alcohol after a TBI because they understand the dangers. Here are ferro steps to take: ?? Be honest with your healthcare team. Let them know if you're having problems with alcohol or drugs. ?? Stick with your treatment program. People in supervised treatment are less likely to have substance abuse problems. ?? Don?t spend too much time alone. Have friends and family take part in your recovery. ?? Join a support group. Ask your healthcare provider if you need help finding one. ?? Don?t get discouraged. Knowing that the symptoms of TBI usually go away in time will help you have a successful recovery. It may be tempting to ease the symptoms and frustration of recovering from a TBI by drinking alcohol or taking drugs. But this only makes things worse. Be patient with your brain. It takes time to heal. Remember that most people do recover. Last Reviewed Date: 2021 ?? [id number] [employer]. All rights reserved. This information is not intended as a substitute for professional medical care. Always follow your healthcare professional's instructions. * Clinical References AVS - Jose Rafael Carreon APRN-CNP - 12/18/2023 3:25 PM CDT Images from the original note were not included. [id number] Head Trauma (Traumatic Brain Injury) Head trauma can be fatal. The effects caused by some types of head trauma may not appear right away. So, it?s important to get immediate medical attention and continued monitoring at home for any head injury. Don't move a person with a head injury unless it is necessary to save their life. Call 911 and waitfor help. Head trauma often comes with a severe neck injury. Sudden movements can result in paralysis. Call 911 Call 911 right away after a head blow that results in: ?? Prolonged loss of consciousness (more than a few seconds) or prolonged drowsiness ?? Memory problems or confusion ?? Severe headache ?? Nausea or vomiting ?? Pupils dilated or different sizes ?? Blurred or double vision ?? Severe bleeding ?? Blood or watery fluid leaking from the nose or ears ?? A broken skull or a soft spot on the skull ?? Slow breathing ?? Loss of balance, vertigo, or loss of coordination ?? Weakness of or trouble using an arm or leg ?? Slurred speech ?? Seizure ?? Sensitivity to light or sound ?? Hearing problems, such as ringing in the ears What to expect in the ER Here is what will happen: ?? A neurological exam is done. This is a series of simple questions and tests that evaluate the nervous system. During this exam, the following are assessed: o Reflexes o Movement o Response to commands o Vision, hearing, and speech o Coordination and balance o Response to pain o Mental state ?? The healthcare provider shines a bright light into the eyes to check how the pupils respond. This can reveal more about any head injuries. ?? A head CT scan may be done. This test combines X-rays and computer scans to create detailed images of the brain to detect bleeding, swelling, brain injury, and skull fractures. ?? An MRI scan may be done on the head. This test detects minute bleeding (micro hemorrhage), bruising, swelling, and scarring that may not be visible on CT scanning. ?? In some cases, a brain perfusion single photon emission computed tomography (SPECT) may be done.This measures cerebral blood flow and activity patterns to evaluate traumatic head injuries. Treatment for head trauma Many factors?including the size, severity, and location of the brain injury?affect how a TBI is treated and how quickly a person might recover. Here is what is generally done: ?? Sometimes, severe head injuries cause bleeding on or in the brain that needs to be treated rightaway with surgery. In certain cases, the injured person will be watched closely and taken for surgery only if the injuries become worse. After surgery, special care is needed to prevent further braindamage. ?? Minor head trauma may need little treatment beyond pain control and observation. The healthcare provider may suggest using cold packs to reduce swelling and pain. Once you are home After treatment for head trauma, know which symptoms to watch for. Then call for medical help. At home, call 911 right away if the affected person: ?? Becomes very drowsy or confused ?? Has a headache or trouble seeing ?? Has a stiff neck or muscle weakness ?? Vomits ?? Has seizures ?? Has bruising around the eyes or behind the ears ?? Has any blood or clear fluid coming out of the ears or nose Other considerations For mild head trauma, the person may need to take a short time off from work or school, although usually no more than 2 to 3 days. Ask their healthcare provider for written instructions about when they can safely return to work, school, sports, or other activities, such as driving a car, riding a bike, or working with heavy machinery. Make an appointment for a follow-up visit with their healthcare provider to check their progress. Ask their healthcare provider about new or persistent symptoms and how to treat them. Pay attention to any new signs or symptoms even if they seem unrelated to the injury (for example, mood swings or unusual feelings of irritability) These symptoms may be related even if they occurredseveral weeks after the injury. Last Reviewed Date: 2023 ?? [id number] [employer]. All rights reserved. This information is not intended as a substitute for professional medical care. Always follow your healthcare professional's instructions. documented in this encounter Plan of Treatment Scheduled Orders Name Type Priority Associated Diagnoses Orde r Schedule CT HEAD WO CONTRAST Imaging Routine Traumatic injury of head, initial encounter Expected: 01/15/2024, Expires: 12/14/2024 Scheduled Referrals Name Type Priority Associated Diagnoses Orde r Schedule Referral to Home Health Care Outpatient Referral Routine Post-traumatic subdural hematoma, without loss of consciousness, initial encounter (HCC) Traumatic brain injury, without loss of consciousness, initial encounter (HCC) Ordered: 12/18/2023 Ambulatory referral to Occupational Therapy Outpatient Referral Routine Subarachnoid hemorrhage (HCC) Traumatic brain injury, with loss of consciousness of 31 minutes to 59 minutes, sequela (HCC) 1 Occurrences starting 12/18/2023 until 12/17/2024 Referral to Physical Therapy Outpatient Referral Routine Subarachnoid hemorrhage (HCC) Traumatic brain injury, with loss of consciousness of 31 minutes to 59 minutes, sequela (HCC) Expected: 12/20/2023, Expires: 12/17/2024 Ref to [facility] Outpatient Referral Routine Diabetes mellitus due to underlying condition with hyperosmolarity without coma, without long-term current use of insulin (HCC) 1 Occurrences starting 12/18/2023 until 12/17/2024 documented as of this encounter Procedures Procedure Name Priority Date/Time Associated Diagnosis Comments GLUCOSE - POINT OF CARE Routine 12/18/2023 7:12 PM CDT GLUCOSE - POINT OF CARE Routine 12/18/2023 7:12 PM CDT GLUCOSE - POINT OF CARE Routine 12/18/2023 5:08 PM CDT GLUCOSE - POINT OF CARE Routine 12/18/2023 5:05 PM CDT GLUCOSE - POINT OF CARE Routine 12/18/2023 5:02 PM CDT GLUCOSE - POINT OF CARE Routine 12/18/2023 5:01 PM CDT GLUCOSE - POINT OF CARE Routine 12/18/2023 11:35 AM CDT GLUCOSE - POINT OF CARE Routine 12/18/2023 7:53 AM CDT GLUCOSE - POINT OF CARE Routine 12/18/2023 5:06 AM CDT GLUCOSE - POINT OF CARE Routine 12/18/2023 12:10 AM CDT GLUCOSE - POINT OF CARE Routine 12/17/2023 8:40 PM CDT GLUCOSE - POINT OF CARE Routine 12/17/2023 4:05 PM CDT GLUCOSE - POINT OF CARE Routine 12/17/2023 12:16 PM CDT GLUCOSE - POINT OF CARE Routine 12/17/2023 7:32 AM CDT GLUCOSE - POINT OF CARE Routine 12/16/2023 4:59 PM CDT GLUCOSE - POINT OF CARE Routine 12/16/2023 12:00 PM CDT GLUCOSE - POINT OF CARE Routine 12/16/2023 8:12 AM CDT GLUCOSE - POINT OF CARE Routine 12/16/2023 6:41 AM CDT GLUCOSE - POINT OF CARE Routine 12/15/2023 10:31 PM CDT GLUCOSE - POINT OF CARE Routine 12/15/2023 4:58 PM CDT GLUCOSE - POINT OF CARE Routine 12/15/2023 2:18 PM CDT GLUCOSE - POINT OF CARE Routine 12/15/2023 9:[address] HEAD WO CONTRAST STAT 12/15/2023 9 :42 AM CDT Traumatic injury of head, initial encounter GLUCOSE - POINT OF CARE Routine 12/14/2023 11:[address] HEAD WO CONTRAST STAT 12/14/2023 1 0:31 PM CDT Traumatic injury of head, initial encounter XR CHEST 1VW PORTABLE STAT 12/14/2023 8:52 PM CDT SOB (shortness of breath) CBC W AUTO DIFFERENTIAL STAT 12/14/2023 8:48 PM CDT COMPREHENSIVE METABOLIC PANEL STAT 12/14/2023 8:48 PM CDT PHOSPHORUS BLOOD STAT 12/14/2023 8:48 PM CDT MAGNESIUM BLOOD STAT 12/14/2023 8:48 PM CDT documented in this encounter Results * (ABNORMAL) GLUCOSE - POINT OF CARE (12/18/2023 7:12 PM CDT) Glucose WB/POC 118(H) 70 - 115 mg/dL 12/20/2023 11:37 AM CDT [facility] Specimen Type Arterial 12/20/2023 11:37 AM CDT [facility] Blood BLOOD SPECIMEN / Unknown 12/18/2023 7:12 PM CDT 12/20/2023 11:37 AM CDT Ho Parada MD LAB - POINT OF CARE ORDERABLES [facility] [address] [place] [address], [facility] [phone] * (ABNORMAL) GLUCOSE - POINT OF CARE (12/18/2023 7:12 PM CDT) Glucose WB/POC 118(H) 70 - 115 mg/dL 12/20/2023 11:36 AM CDT [facility] Specimen Type Arterial 12/20/2023 11:36 AM CDT [facility] Blood BLOOD SPECIMEN / Unknown 12/18/2023 7:12 PM CDT 12/20/2023 11:36 AM CDT Ho Parada MD LAB - POINT OF CARE ORDERABLES [address] [address], [place] [phone] * GLUCOSE - POINT OF CARE (12/18/2023 5:08 PM CDT) Glucose WB/POC 95 70 - 115 mg/dL 12/20/2023 11:37 AM CDT [facility] Specimen Type Arterial 12/20/2023 11:37 AM CDT [facility] Blood BLOOD SPECIMEN / Unknown 12/18/2023 5:08 PM CDT 12/20/2023 11:37 AM CDT Ho Parada MD LAB - POINT OF CARE ORDERABLES [address] [address], [place] [phone] * GLUCOSE - POINT OF CARE (12/18/2023 5:05 PM CDT) Glucose WB/POC 87 70 - 115 mg/dL 12/20/2023 11:38 AM CDT [facility] Specimen Type Arterial 12/20/2023 11:38 AM CDT [facility] Blood BLOOD SPECIMEN / Unknown 12/18/2023 5:05 PM CDT 12/20/2023 11:38 AM CDT Ho Parada MD LAB - POINT OF CARE ORDERABLES [address] [address], [place] [phone] * GLUCOSE - POINT OF CARE (12/18/2023 5:02 PM CDT) Glucose WB/POC 95 70 - 115 mg/dL 12/20/2023 11:38 AM CDT [facility] Specimen Type Arterial 12/20/2023 11:38 AM CDT [facility] Blood BLOOD SPECIMEN / Unknown 12/18/2023 5:02 PM CDT 12/20/2023 11:38 AM CDT Ho Parada MD LAB - POINT OF CARE ORDERABLES [address] [address], [place] [phone] * GLUCOSE - POINT OF CARE (12/18/2023 5:01 PM CDT) Glucose WB/POC 94 70 - 115 mg/dL 12/20/2023 11:38 AM CDT [facility] Specimen Type Arterial 12/20/2023 11:38 AM CDT [facility] Blood BLOOD SPECIMEN / Unknown 12/18/2023 5:01 PM CDT 12/20/2023 11:38 AM CDT Ho Parada MD LAB - POINT OF CARE ORDERABLES Performing Organization Address City/[facility]/ZIP Co de Phone Number [address] [address], [place] [phone] * (ABNORMAL) GLUCOSE - POINT OF CARE (12/18/2023 11:35 AM CDT) Glucose WB/POC 327(H) 70 - 115 mg/dL 12/18/2023 11:45 AM CDT [facility] Specimen Type Arterial 12/18/2023 11:45 AM CDT [facility] Blood BLOOD SPECIMEN / Unknown 12/18/2023 11:35 AM CDT 12/18/2023 11:45 AM CDT Ho Parada MD LAB - POINT OF CARE ORDERABLES [facility] [address] [place] [address], [place] [phone] * (ABNORMAL) GLUCOSE - POINT OF CARE (12/18/2023 7:53 AM CDT) Glucose WB/POC 277(H) 70 - 115 mg/dL 12/18/2023 8:07 AM CDT [facility] Specimen Type Arterial 12/18/2023 8:07 AM CDT [facility] Blood BLOOD SPECIMEN / Unknown 12/18/2023 7:53 AM CDT 12/18/2023 8:07 AM CDT Ho Parada MD LAB - POINT OF CARE ORDERABLES [address] [address], [place] [phone] * (ABNORMAL) GLUCOSE - POINT OF CARE (12/18/2023 5:06 AM CDT) Glucose WB/POC 336(H) 70 - 115 mg/dL 12/18/2023 5:08 AM CDT [facility] Specimen Type Cap Fingerstick 2023 5:08 AM CDT [facility] Blood BLOOD SPECIMEN / Unknown 12/18/2023 5:06 AM CDT 12/18/2023 5:08 AM CDT Ho Parada MD LAB - POINT OF CARE ORDERABLES [address] [address], [place] [phone] * (ABNORMAL) GLUCOSE - POINT OF CARE (12/18/2023 12:10 AM CDT) Glucose WB/POC 328(H) 70 - 115 mg/dL 12/18/2023 12:11 AM CDT [facility] Specimen Type Cap Fingerstick 2023 12:11 AM CDT [facility] Blood BLOOD SPECIMEN / Unknown 12/18/2023 12:10 AM CDT 12/18/2023 12:11 AM CDT Ho Parada MD LAB - POINT OF CARE ORDERABLES [facility] [address] [place] [address], [place] [phone] * (ABNORMAL) GLUCOSE - POINT OF CARE (12/17/2023 8:40 PM CDT) Glucose WB/POC 393(H) 70 - 115 mg/dL 12/17/2023 8:41 PM CDT [facility] Specimen Type Cap Fingerstick 2023 8:41 PM CDT [facility] Blood BLOOD SPECIMEN / Unknown 12/17/2023 8:40 PM CDT 12/17/2023 8:41 PM CDT Ho Parada MD LAB - POINT OF CARE ORDERABLES Performing Organization Address City/[facility]/ZIP Co de Phone Number [address] [address], [place] [phone] * (ABNORMAL) GLUCOSE - POINT OF CARE (12/17/2023 4:05 PM CDT) Glucose WB/POC 294(H) 70 - 115 mg/dL 12/17/2023 4:10 PM CDT [facility] Specimen Type Arterial 12/17/2023 4:10 PM CDT [facility] Blood BLOOD SPECIMEN / Unknown 12/17/2023 4:05 PM CDT 12/17/2023 4:10 PM CDT Ho Parada MD LAB - POINT OF CARE ORDERABLES [address] [address], [place] [phone] * (ABNORMAL) GLUCOSE - POINT OF CARE (12/17/2023 12:16 PM CDT) Glucose WB/POC 315(H) 70 - 115 mg/dL 12/17/2023 12:21 PM CDT [facility] Specimen Type Arterial 12/17/2023 12:21 PM CDT [facility] Blood BLOOD SPECIMEN / Unknown 12/17/2023 12:16 PM CDT 12/17/2023 12:21 PM CDT Ho Parada MD LAB - POINT OF CARE ORDERABLES [facility] [address] [place] [address], [place] [phone] * (ABNORMAL) GLUCOSE - POINT OF CARE (12/17/2023 7:32 AM CDT) Glucose WB/POC 278(H) 70 - 115 mg/dL 12/17/2023 7:37 AM CDT [facility] Specimen Type Arterial 12/17/2023 7:37 AM CDT [facility] Blood BLOOD SPECIMEN / Unknown 12/17/2023 7:32 AM CDT 12/17/2023 7:37 AM CDT Ho Parada MD LAB - POINT OF CARE ORDERABLES Performing Organization Address City/[facility]/ZIP Co de Phone Number [address] [address], [place] [phone] * (ABNORMAL) GLUCOSE - POINT OF CARE (12/16/2023 4:59 PM CDT) Glucose WB/POC 252(H) 70 - 115 mg/dL 12/16/2023 5:04 PM CDT [facility] Specimen Type Cap Fingerstick 2023 5:04 PM CDT [facility] Blood BLOOD SPECIMEN / Unknown 12/16/2023 4:59 PM CDT 12/16/2023 5:04 PM CDT Ho Parada MD LAB - POINT OF CARE ORDERABLES [facility] [address] [place] [address], [place] [phone] * (ABNORMAL) GLUCOSE - POINT OF CARE (12/16/2023 12:00 PM CDT) Glucose WB/POC 385(H) 70 - 115 mg/dL 12/16/2023 12:05 PM CDT [facility] Specimen Type Cap Fingerstick 2023 12:05 PM CDT [facility] Blood BLOOD SPECIMEN / Unknown 12/16/2023 12:00 PM CDT 12/16/2023 12:05 PM CDT Ho Parada MD LAB - POINT OF CARE ORDERABLES [facility] [address] [place] [address], [place] [phone] * (ABNORMAL) GLUCOSE - POINT OF CARE (12/16/2023 8:12 AM CDT) Glucose WB/POC 194(H) 70 - 115 mg/dL 12/16/2023 8:17 AM CDT [facility] Specimen Type Cap Fingerstick 2023 8:17 AM CDT [facility] Blood BLOOD SPECIMEN / Unknown 12/16/2023 8:12 AM CDT 12/16/2023 8:16 AM CDT Ho Parada MD LAB - POINT OF CARE ORDERABLES [facility] [address] [place] [address], [place] [phone] * (ABNORMAL) GLUCOSE - POINT OF CARE (12/16/2023 6:41 AM CDT) Glucose WB/POC 217(H) 70 - 115 mg/dL 12/16/2023 6:42 AM CDT [facility] Specimen Type Cap Fingerstick 2023 6:42 AM CDT [facility] Blood BLOOD SPECIMEN / Unknown 12/16/2023 6:41 AM CDT 12/16/2023 6:42 AM CDT Ho Parada MD LAB - POINT OF CARE ORDERABLES [facility] [address] [place] [address], [place] [phone] * (ABNORMAL) GLUCOSE - POINT OF CARE (12/15/2023 10:31 PM CDT) Glucose WB/POC 205(H) 70 - 115 mg/dL 12/15/2023 10:38 PM CDT [facility] Specimen Type Cap Fingerstick 2023 10:38 PM CDT [facility] Blood BLOOD SPECIMEN / Unknown 12/15/2023 10:31 PM CDT 12/15/2023 10:38 PM CDT Ho Parada MD LAB - POINT OF CARE ORDERABLES [address] [address], [place] [phone] * (ABNORMAL) GLUCOSE - POINT OF CARE (12/15/2023 4:58 PM CDT) Glucose WB/POC 218(H) 70 - 115 mg/dL 12/15/2023 5:03 PM CDT [facility] Specimen Type Arterial 12/15/2023 5:03 PM CDT [facility] Blood BLOOD SPECIMEN / Unknown 12/15/2023 4:58 PM CDT 12/15/2023 5:03 PM CDT Ho Parada MD LAB - POINT OF CARE ORDERABLES [address] [address], [place] [phone] * (ABNORMAL) GLUCOSE - POINT OF CARE (12/15/2023 2:18 PM CDT) Glucose WB/POC 240(H) 70 - 115 mg/dL 12/15/2023 2:23 PM CDT [facility] Specimen Type Cap Fingerstick 2023 2:23 PM CDT [facility] Blood BLOOD SPECIMEN / Unknown 12/15/2023 2:18 PM CDT 12/15/2023 2:23 PM CDT Ho Parada MD LAB - POINT OF CARE ORDERABLES [facility] [address] [place] [address], [place] [phone] * (ABNORMAL) GLUCOSE - POINT OF CARE (12/15/2023 9:47 AM CDT) Glucose WB/POC 253(H) 70 - 115 mg/dL 12/15/2023 9:52 AM CDT [facility] Specimen Type Arterial 12/15/2023 9:52 AM CDT [facility] Blood BLOOD SPECIMEN / Unknown 12/15/2023 9:47 AM CDT 12/15/2023 9:52 AM CDT Ho Parada MD LAB - POINT OF CARE ORDERABLES [facility] [address] [place] [address], [place] [phone] * CT HEAD WO CONTRAST (12/15/2023 9:42 AM CDT) Anatomical Region Laterality Modality Head Computed Tomogra phy 12/15/2023 10:5 6 AM CDT Impressions 12/15/2023 1:33 PM CDT IMPRESSION: 1. Grossly unchanged multi compartmental hemorrhages secondary to TBI with intraparenchymal hematoma/hemorrhagic contusion in the right frontal lobe as compared to 12/14/2023 measuring 1.4 x 0.7 cm with surrounding vasogenic edema. Local mass affect with effacement of the of the adjacent sylvian fissure/cistern. 2. Grossly unchanged small volume subarachnoid blood products along the right temporal lobe. 3. Multiple fractures are better visualized on prior CT facial bones dated 12/10/2023. Report dictated by Jeaneth Ferrari MD (marketing services vice president). I, Greg Molina MD have personally reviewed and interpreted this examination/study. > Interpreting Provider: Greg Molina MD on 12/15/2023 1:33 PM Narrative 12/15/2023 1:33 PM CDT PROCEDURE: ??CT HEAD WO CONTRAST, DATE/TIME OF EXAM: ??12/15/2023 9:42 AM, LOCATION ??[facility] INDICATION: [id number]: Traumatic injury of head, initial encounter ADDITIONAL CLINICAL INFORMATION: Ordering Provider Reason For Exam: ??r/o increased size of SDH EXAMINATION: Computed tomography (CT) of the head without contrast TECHNIQUE: CT of the head was performed without contrast according to standard protocol. COMPARISON: Comparison is made with a CT head dated 12/14/2023 FINDINGS: Grossly unchanged appearance of intraparenchymal hematoma in the right temporal lobe measuring 1.4 x 0.7 cm with surrounding vasogenic edema (series 3, image 14) previously measuring 1.4 x 0.7 cm (series 2, image 14) on similar remeasurement. Local mass effect is present with effacement of the adjacent sylvian fissure, grossly unchanged from prior. Small volume subarachnoid blood products are also seen along the right temporal lobe. Redemonstration of small foci of pneumocephalus along the right frontal convexity (series 5, image 55). There is mild cerebral volume loss with associated ex vacuo ventricular dilatation. The basal cisterns are patent. No midline shift is seen. The bryan-white matter differentiation is normal. There is vascular calcification of the carotid siphons. Mild opacification of the right frontal sinus, ethmoid air cells, right maxillary sinus and right sphenoid sinus, grossly unchanged from prior. 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 The visualized portions of the orbits. Redemonstration of multiple fractures previously described on CT facial bones dated 12/10/2023. Procedure Note Greg Molina MD - 12/15/2023 PROCEDURE: CT HEAD WO CONTRAST, DATE/TIME OF EXAM: 12/15/2023 9:42 AM, LOCATION [facility] INDICATION: S09.90XA: Traumatic injury of head, initial encounter ADDITIONAL CLINICAL INFORMATION: Ordering Provider Reason For Exam: r/o increased size of SDH EXAMINATION: Computed tomography (CT) of the head without contrast TECHNIQUE: CT of the head was performed without contrast according to standard protocol. COMPARISON: Comparison is made with a CT head dated 12/14/2023 FINDINGS: Grossly unchanged appearance of intraparenchymal hematoma in the right temporal lobe measuring 1.4 x 0.7 cm with surrounding vasogenic edema (series 3, image 14) previously measuring 1.4 x 0.7 cm (series 2, image14) on similar remeasurement. Local mass effect is present with effacementof the adjacent sylvian fissure, grossly unchanged from prior. Small volume subarachnoid blood products are also seen along the right temporal lobe. Redemonstration of small foci of pneumocephalus along the right frontal convexity (series 5, image 55). There is mild cerebral volume loss with associated ex vacuo ventricular dilatation. The basal cisterns are patent. No midline shift is seen. The bryan-white matter differentiation is normal. There is vascular calcification of the carotid siphons. Mild opacification of the right frontal sinus, ethmoid air cells, right maxillary sinus and right sphenoid sinus, grossly unchanged from prior. 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 The visualized portions of the orbits. Redemonstration of multiple fractures previously described on CT facial bones dated 12/10/2023. IMPRESSION: 1. Grossly unchanged multi compartmental hemorrhages secondary to TBIwith intraparenchymal hematoma/hemorrhagic contusion in the right frontallobe as compared to 12/14/2023 measuring 1.4 x 0.7 cm with surroundingvasogenic edema. Local mass affect with effacement of the of the adjacent sylvian fissure/cistern. 2. Grossly unchanged small volume subarachnoid blood products along the right temporal lobe. 3. Multiple fractures are better visualized on prior CT facial bonesdated 12/10/2023. Report dictated by Jeaneth Ferrari MD (marketing services vice president). I, Greg Molina MD have personally reviewed and interpreted this examination/study. > Interpreting Provider: Greg Molina MD on 12/15/2023 1:33 PM Frida Berrios SHORTS SIFTER-DIRECTOR OF SAFETY CT ORDERABLES * (ABNORMAL) GLUCOSE - POINT OF CARE (12/14/2023 11:42 PM CDT) Glucose WB/POC 297(H) 70 - 115 mg/dL 12/14/2023 11:43 PM CDT [facility] Specimen Type Cap Fingerstick 2023 11:43 PM CDT [facility] Blood BLOOD SPECIMEN / Unknown 12/14/2023 11:42 PM CDT 12/14/2023 11:43 PM CDT Ho Parada MD LAB - POINT OF CARE ORDERABLES [address] [address], [facility] [phone] * CT HEAD WO CONTRAST (12/14/2023 10:31 PM CDT) Anatomical Region Laterality Modality Head Computed Tomogra phy 12/14/2023 10:2 9 PM CDT Impressions 12/14/2023 10:58 PM CDT IMPRESSION: 1.Multi compartmental hemorrhages secondary to TBI with an interval increase in size of the intraparenchymal hematoma/hemorrhagic contusion in the right temporal lobe measuring 1.2 x 0.8 cm with surrounding vasogenic edema (series 3 image 26). 2.This is causing local mass effect with compression of the adjacent sylvian fissure/cistern. 3.Small volume subarachnoid blood products are also seen along the right temporal lobe. 4.Multiple fractures are better are better characterized on prior CT facial bones dated 12/10/2023. These findings were discussed in detail with the patient's care provider, Dr Ricardo by Dr. Lalita Roblero via telephone at 12/14/2023 10:40 PM with readback comprehension and verification. The report is dictated by Lalita Roblero Dr, MD (marketing services vice president) I, Greg Molina MD have personally reviewed and interpreted this examination/study. > Interpreting Provider: Greg Molina MD on 12/14/2023 10:58 PM Narrative 12/14/2023 10:58 PM CDT PROCEDURE: ??CT HEAD WO CONTRAST, DATE/TIME OF EXAM: ??12/14/2023 10:32 PM, LOCATION ??[facility] INDICATION: S09.90XA: Traumatic injury of head, initial encounter ADDITIONAL CLINICAL INFORMATION: Ordering Provider Reason For Exam: ??head trauma Technologist Note: Additional: EXAMINATION: Computed tomography (CT) of the head without contrast TECHNIQUE: CT of the head was performed without contrast according to standard protocol. CT dose reduction technique was used, including Automated Exposure Control. COMPARISON: CT head without contrast dated 12/11/2023. FINDINGS: Interval increase in size of the intraparenchymal hematoma in the right temporal lobe measuring 1.2 x 0.8 cm with surrounding vasogenic edema (series 3 image 26). This is causing local mass effect with compression of the adjacent sylvian fissure/cistern. Small volume subarachnoid blood products are also seen along the right temporal lobe. Redemonstration of a small foci of pneumocephalus along the right frontal lobe (series 4 image 56). There is mild cerebral volume loss with associated ex vacuo ventricular dilatation. Suprasellar cistern is patent. The bryan-white matter differentiation is normal. There is vascular calcification of the carotid siphons. The orbits appear normal. 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 Opacification of the right frontal sinus, ethmoid air cells,, sphenoid sinus and right maxillary sinus. The mastoid air cells are clear. No soft tissue abnormality is identified. Redemonstration of multiple fractures as described on prior CT facial bones dated 12/10/2023. Procedure Note Greg Molina MD - 12/14/2023 PROCEDURE: CT HEAD WO CONTRAST, DATE/TIME OF EXAM: 12/14/2023 10:32 PM, LOCATION [facility] INDICATION: S09.90XA: Traumatic injury of head, initial encounter ADDITIONAL CLINICAL INFORMATION: Ordering Provider Reason For Exam: head trauma Technologist Note: Additional: EXAMINATION: Computed tomography (CT) of the head without contrast TECHNIQUE: CT of the head was performed without contrast according to standard protocol. CT dose reduction technique was used, including Automated Exposure Control. COMPARISON: CT head without contrast dated 12/11/2023. FINDINGS: Interval increase in size of the intraparenchymal hematoma in the right temporal lobe measuring 1.2 x 0.8 cm with surrounding vasogenic edema (series 3 image 26). This is causing local mass effect with compressionof the adjacent sylvian fissure/cistern. Small volume subarachnoid blood products are also seen along the right temporal lobe. Redemonstration ofa small foci of pneumocephalus along the right frontal lobe (series 4image 56). There is mild cerebral volume loss with associated ex vacuo ventricular dilatation. Suprasellar cistern is patent. The bryan-white matter differentiation is normal. There is vascular calcification of thecarotid siphons. The orbits appear normal. 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 Opacification of the right frontal sinus, ethmoid air cells,, sphenoid sinus and right maxillary sinus. The mastoid air cells are clear. Nosoft tissue abnormality is identified. Redemonstration of multiple fractures as described on prior CT facialbones dated 12/10/2023. IMPRESSION: 1.Multi compartmental hemorrhages secondary to TBI with an interval increase in size of the intraparenchymal hematoma/hemorrhagic contusionin the right temporal lobe measuring 1.2 x 0.8 cm with surroundingvasogenic edema (series 3 image 26). 2.This is causing local mass effect with compression of the adjacent sylvian fissure/cistern. 3.Small volume subarachnoid blood products are also seen along the right temporal lobe. 4.Multiple fractures are better are better characterized on prior CTfacial bones dated 12/10/2023. These findings were discussed in detail with the patient's careprovider, Bi by Dr. Lalita Roblero via telephone at 12/14/2023 10:40 PM with readback comprehension and verification. The report is dictated by Lalita Roblero Dr, MD (marketing services vice president) I, Greg Molina MD have personally reviewed and interpreted this examination/study. > Interpreting Provider: Greg Molina MD on 12/14/2023 10:58 PM Fani Cao MD CT ORDERABLES * XR CHEST 1VW PORTABLE (12/14/2023 8:52 PM CDT) Anatomical Region Laterality Modality Chest Radiographic Evelina ging 12/14/2023 8:55 PM CDT Narrative 12/14/2023 8:58 PM CDT PROCEDURE: ??XR CHEST 1VW PORTABLE, DATE/TIME OF EXAM: ??12/14/2023 8:52 PM, LOCATION ??[facility] INDICATION: R06.02: SOB (shortness of breath) ADDITIONAL CLINICAL INFORMATION: Ordering Provider Reason For Exam: ??sob Technologist Note: Additional: COMPARISON: 12/10/2023 FINDINGS/IMPRESSION: Mild interstitial opacity could be pulmonary edema. No focal consolidation, pleural effusion, or pneumothorax. Report dictated by Deepak Goddard DO (marketing services vice president). Bernardino Linares MD have personally reviewed and interpreted this examination/study. > Interpreting Provider: Bernardino Key MD on 12/14/2023 8:58 PM Procedure Note Bernardino Key MD - 12/14/2023 PROCEDURE: XR CHEST 1VW PORTABLE, DATE/TIME OF EXAM: 12/14/2023 8:52 PM, LOCATION [facility] INDICATION: R06.02: SOB (shortness of breath) ADDITIONAL CLINICAL INFORMATION: Ordering Provider Reason For Exam: sob Technologist Note: Additional: COMPARISON: 12/10/2023 FINDINGS/IMPRESSION: Mild interstitial opacity could be pulmonary edema.No focal consolidation, pleural effusion, or pneumothorax. Report dictated by Deepak Goddard DO (marketing services vice president). Bernardino Linares MD have personally reviewed and interpreted this examination/study. > Interpreting Provider: Bernardino Key MD on 12/14/2023 8:58 PM Fani Cao MD DIAGNOSTIC IMAGING O RDERABLES * PHOSPHORUS BLOOD (12/14/2023 8:48 PM CDT) Phosphorus 3.4 2.9 - 5.1 mg/dL 12/14/2023 9:28 PM CDT [facility] Blood BLOOD SPECIMEN / Unknown Venipuncture / Unknown 12/14/2023 8:48 PM CDT 12/14/2023 8:57 PM CDT Omer Carr MD LAB - CHEMISTRY [facility] [address] [place] [address], [place] [phone] * MAGNESIUM BLOOD (12/14/2023 8:48 PM CDT) [facility] Magnesium 2.0 1.6 - 2.6 mg/dL 12/14/2023 9:28 PM [facility] Blood BLOOD SPECIMEN / Unknown Venipuncture / Unknown 12/14/2023 8:48 PM CDT 12/14/2023 8:57 PM CDT Omer Carr MD LAB - CHEMISTRY [facility] [address] [place] [address], [facility] [phone] * (ABNORMAL) COMPREHENSIVE METABOLIC PANEL (12/14/2023 8:48 PM CDT) [facility] BUN 24 7 - 26 mg/dL 12/14/2023 9:33 PM [facility] Creatinine 0.65 0.56 - 0.96 mg/dL 12/14/2023 9:33 PM [facility] Sodium 137 136 - 145 mmol/L 12/14/2023 9:33 PM [facility] Potassium 4.2 3.5 - 4.5 mmol/L 12/14/2023 9:33 PM [facility] Chloride 101 98 - 107 mmol/L 12/14/2023 9:33 PM [facility] CO2 26 22 - 29 mmol/L 12/14/2023 9:33 PM [facility] Glucose 246(H) 70 - 115 mg/dL 12/14/2023 9:33 PM [facility] Calcium 10.3(H) 8.4 - 10.2 mg/dL 12/14/2023 9:33 PM [facility] Protein Total 7.8 6.0 - 8.3 g/dL 12/14/2023 9:33 PM [facility] Albumin 3.1(L) 3.4 - 5.0 g/dL 12/14/2023 9:33 PM [facility] Bilirubin Total 0.6 0.2 - 1.2 mg/dL 12/14/2023 9:33 PM [facility] Alkaline Phosphatase 135 40 - 150 U/L 12/14/2023 9:33 PM [facility] ALT 17 5 - 55 U/L 12/14/2023 9:33 PM [facility] AST 26 5 - 34 U/L 12/14/2023 9:33 PM [facility] Anion Gap 10 6 - 16 12/14/2023 9:33 PM [facility] BUN/Creatinine Ratio 37(H) 7 - 23 12/14/2023 9:33 PM [facility] Osmolality Calculated 296(H) 275 - 295 mOsm/kg 12/14/2023 9:33 PM [facility] Albumin/Globulin Ratio 0.7(L) 1.1 - 2.3 12/14/2023 9:33 PM [facility] eGFR by CKD-EPI >90 >=90 mL/min/1.7 3 m2 12/14/2023 9:33 PM [facility] Blood BLOOD SPECIMEN / Unknown Venipuncture / Unknown 12/14/2023 8:48 PM CDT 12/14/2023 8:57 PM CDT Omer Carr MD LAB - CHEMISTRY [facility] Organization Address City/State/[facility] Co de Phone Number [facility] [address] [place] [id number], [facility] [phone] * CBC W AUTO DIFFERENTIAL (12/14/2023 8:48 PM CDT) WBC 7.8 4.0 - 10.7 x10E9/L 12/14/2023 9:03 PM [facility] RBC Count 4.21 3.90 - 5.20 x10E12/L 12/14/2023 9:03 PM [facility] Hemoglobin 12.6 11.9 - 15.8 g/dL 12/14/2023 9:03 PM [facility] Hematocrit 35.4 34.8 - 46.1 % 12/14/2023 9:03 PM [facility] MCV 84.1 80.0 - 98.0 fL 12/14/2023 9:03 PM [facility] MCH 29.9 26.7 - 33.6 pg 12/14/2023 9:03 PM [facility] MCHC 35.6 31.7 - 36.3 g/dL 12/14/2023 9:03 PM [facility] RDW-CV 13.4 11.3 - 14.8 % 12/14/2023 9:03 PM [facility] Platelet Count 227 150 - 420 x10E9/L 12/14/2023 9:03 PM [facility] MPV 8.6 7.8 - 11.4 fL 12/14/2023 9:03 PM [facility] Neutrophil % 64.1 41.0 - 74.0 % 12/14/2023 9:03 PM [facility] Lymphocyte % 24.6 17.0 - 47.0 % 12/14/2023 9:03 PM [facility] Monocyte % 9.3 3.0 - 11.0 % 12/14/2023 9:03 PM [facility] Eosinophil % 1.3 0.0 - 7.0 % 12/14/2023 9:03 PM [facility] Basophil % 0.4 0.0 - 1.6 % 12/14/2023 9:03 PM [facility] Immature Granulocytes % 0.3 0.0 - 1.0 % 12/14/2023 9:03 PM [facility] Neutrophil Absolute 4.98 1.60 - 7.50 x10E9/L 12/14/2023 9:03 PM [facility] Lymphocyte Absolute 1.91 1.00 - 4.40 x10E9/L 12/14/2023 9:03 PM [facility] Monocyte Absolute 0.72 0.15 - 1.00 x10E9/L 12/14/2023 9:03 PM [facility] Eosinophil Absolute 0.10 0.00 - 0.60 x10E9/L 12/14/2023 9:03 PM CDT [facility] Basophil Absolute 0.03 0.00 - 0.13 x10E9/L 12/14/2023 9:03 PM CDT [facility] Blood BLOOD SPECIMEN / Unknown Venipuncture / Unknown 12/14/2023 8:48 PM CDT 12/14/2023 8:57 PM CDT Omer Carr MD LAB - HEMATOLOGY ORD ERABLES [facility] [address] [place] [address], [facility] [phone] documented in this encounter Visit Diagnoses Diagnosis Acute pain- Primary SOB (shortness of breath) Shortness of breath Traumatic injury of head, initial encounter Post-traumatic subdural hematoma, without loss of consciousness, initial encounter (HCC) Traumatic brain injury, without loss of consciousness, initial encounter (HCC) Subarachnoid hemorrhage (HCC) Subarachnoid hemorrhage Traumatic brain injury, with loss of consciousness of 31 minutes to 59 minutes, sequela (HCC) Diabetes mellitus due to underlying condition with hyperosmolarity without coma, without long-term current use of insulin (HCC) SOB (shortness of breath) Shortness of breath Traumatic injury of head, initial encounter Impaired mobility and ADLs Mechanical problems with limbs documented in this encounter Administered Medications Inactive Administered Medications - up to 3 most recent administrations Medication Order MAR Action Action Date Dose Rate Site 0.9% NaCl injection 1-10 mL 1-10 mL, Intracatheter, PRN, Other, peripheral line flush, Starting on Sun12/14/23 at 2022, Until Sun12/18/23 at 1716, Flush peripheral IV catheter with 1-10 mL of normal saline before and after medications and prn to clear blood from the line or to verify patency. 0.9% NaCl injection 1-10 mL 1-10 mL, Intracatheter, PRN, Other, peripheral line flush, Starting on Sun12/14/23 at 2213, Until Sun12/18/23 at 1716, Flush peripheral IV catheter with 1-10 mL of normal saline before and after medications and prn to clear blood from the line or to verify patency. 0.9% NaCl injection 3 mL 3 mL, Intracatheter, EVERY 8 HOURS, First dose on Sun12/14/23 at 2200, Until Discontinued, Flush peripheral IV catheter with 3 mL of normal saline every 8 hours. $ Given 12/16/2023 8:10 PM CDT 3 mL $ Given 12/15/2023 8:25 PM CDT 3 mL $ Given 12/15/2023 2:22 PM CDT 3 mL 0.9% NaCl injection 3 mL 3 mL, Intracatheter, EVERY 8 HOURS, First dose on Sun12/14/23 at 2245, Until Discontinued, Flush peripheral IV catheter with 3 mL of normal saline every 8 hours. $ Given 12/17/2023 8:11 PM CDT 3 mL $ Given 12/16/2023 12:11 PM CDT 3 mL $ Given 12/16/2023 8:40 AM CDT 3 mL acetaminophen (Tylenol) tablet 650 mg 650 mg, Oral, EVERY 6 HOURS, First dose on Sun12/14/23 at 2300, Until Discontinued, Patient preference for lesser PRN pain meds may be honored when the patient requests a less strong medication, a lower dose, or a less intrusive route of administration when the lesser drug, dose and route have been ordered for the patient. This patient request must be documented in the MAR. If both oral and IV options are ordered for the same pain severity, give oral first unless patient cannot tolerate oral intake $ Given 12/17/2023 12:42 PM CDT 650 mg $ Given 12/16/2023 5:04 PM CDT 650 mg $ Given 12/16/2023 11:31 AM CDT 650 mg amoxicillin-clavulanate (Augmentin) tablet 875 mg 875 mg, Oral, 2 TIMES DAILY, 6 doses, First dose on Sun12/14/23 at 2300, Last dose on Sun12/17/23 at 0900, Administer with food to decrease GI side effects., Indication for anti-infective therapy: Risk of Infection $ Given 12/17/2023 9:38 AM CDT 875 mg $ Given 12/16/2023 8:07 PM CDT 875 mg $ Given 12/16/2023 8:42 AM CDT 875 mg bacitracin topical ointment Topical, 2 TIMES DAILY, First dose on Sun12/15/23 at 0900, Until Discontinued, Apply to face abrasions $ Given 12/18/2023 8:03 AM CDT $ Given 12/17/2023 8:10 PM CDT $ Given 12/17/2023 9:42 AM CDT dextrose 10 % IV bolus 12.5 g, at 468.75 mL/hr, Intravenous, PRN, Other, Bedside Glucose less than 70 mg/dL -If NOT able to eat and/or NPO and with IV Access, Starting on Sun12/14/23 at 2217, Until Sun12/18/23 at 1717, If NOT able to eat and/or NPO and with IV Access: For Bedside Glucose 54-69 mg/dL give 12.5 g Dextrose IV STAT For Bedside Glucose LESS than 54 mg/dl verify with a second Bedside Glucose (from a different site) and give 25 g Dextrose IV STAT Re-check and Re-treat blood glucose EVERY , 10-25 minutes until blood glucose GREATER than or equal to 80 mg/dl. NOTIFY PROVIDER OF HYPOGLYCEMIC EVENT. dextrose 10 % IV bolus 25 g, at 937.5 mL/hr, Intravenous, PRN, Other, Bedside Glucose less than 70 mg/dL -If NOT able to eat and/or NPO and with IV Access, Starting on Sun12/14/23 at 2217, Until Sun12/18/23 at 1717, If NOT able to eat and/or NPO and with IV Access: For Bedside Glucose 54-69 mg/dL - give 12.5 g Dextrose IV STAT For Bedside Glucose LESS than 54 mg/dl - verify with a second Bedside Glucose (from a different site) and give 25 g Dextrose IV STAT Re-check and Re-treat blood glucose EVERY - 10-25 minutes until blood glucose GREATER than or equal to 80 mg/dl. - If repeat bedside glucose 54-79 give 12.5 g Dextrose IV STAT NOTIFY PROVIDER OF HYPOGLYCEMIC EVENT. enoxaparin (Lovenox) injection 30 mg 30 mg, Subcutaneous, EVERY 12 HOURS, First dose (after last modification) on Sun12/16/23 at 0900, Until Discontinued, (for prefilled syringes) do not expel air bubble from the syringe prior to the injection Remind Patient to not rub injection site. Could cause hematoma. $ Given 12/17/2023 9:41 AM CDT 30 mg Abd Right Lower Quadrant $ Given 12/16/2023 8:39 AM CDT 30 mg Ab dominal Tissue enoxaparin (Lovenox) injection 40 mg 40 mg, Subcutaneous, DAILY, First dose on Sun12/15/23 at 0900, Until Discontinued, (for prefilled syringes) do not expel air bubble from the syringe prior to the injection Remind Patient to not rub injection site. Could cause hematoma. $ Given 12/15/2023 9:48 AM CDT 40 mg Abd Right Upper Quadrant glucagon (Glucagen) injection 1 mg 1 mg, Subcutaneous, PRN, Bedside Glucose less than 70 mg/dL - If NOT able to eat and/or NPO and withOUT IV Access, Starting on Sun12/14/23 at 2217, Until Sun12/18/23 at 1717, If NOT able to eat and/or NPO and NO IV Access: For Bedside glucose 54-69 mg/dL ? - Give 1 mg subcutaneous For Bedside Glucose LESS than 54 mg/dl ? -?verify with a second bedside glucose (from a different site) ? -?Give 1 mg subcutaneous Re-check and Re-treat blood glucose EVERY 10-25 minutes until blood glucose GREATER than or equal to 80 mg/dl.? NOTIFY PROVIDER OF HYPOGLYCEMIC EVENT. Reconstitute vial with 1 mL of sterile water for injection for a final concentration of 1 mg/mL; shake vial gently; use immediately and discard unused portion glucose (Diabetic Use) oral gel Oral, PRN, Other, Bedside Glucose less than 70 mg/dL, Starting on Sun12/14/23 at 2217, Until Sun12/18/23 at 1717, If able to take oral medications: For Bedside Glucose 54 - 69 mg/dL Give 15 grams of oral carbohydrates - 1 glucose gel (see MAR) If patient refuses glucose gel, then offer: - 4 ounces of fruit juice OR - 4 ounces non-diet soda OR - 8 ounces of fat-free milk For Bedside Glucose LESS than 54 mg/dL verify with a second Bedside Glucose (from a different site) - If pt is symptomatic, do not delay treatment - If accuracy of the POC glucose is in question, confirm glucose with a STAT laboratory test Give 30 grams of oral carbohydrates - 2 glucose gels (see MAR) If patient refuses glucose gel, then offer: - 8 ounces of fruit juice OR - 8 ounces non-diet soda OR - 16 ounces of fat-free milk Re-check and Re-treat blood glucose EVERY 10-25 minutes until blood glucose GREATER than or equal to 80 mg/dl. - If on recheck, bedside glucose 54-79 mg/dL - Give 15 grams of oral carbohydrates (see above for choices) NOTIFY PROVIDER OF HYPOGLYCEMIC EVENT. insulin aspart (NovoLOG) pen 0-12 Units 0-12 Units, Subcutaneous, 3 TIMES DAILY WITH MEALS, First dose on Sun12/15/23 at 0800, Until Discontinued, Low Dose: Correction Insulin Bedside glucose should be done within 30-60 minutes of correction insulin administration. BG (mg/dL) Corrective Action LESS than 70 follow Hypoglycemic guidelines, 70-180 NO Correction insulin, 181-220 GIVE 4 units of insulin, 221-260 GIVE 6 units of insulin, 261-300 GIVE 8 units of insulin, 301-350 GIVE 10 units of insulin, Greater than 350 GIVE 12 units of insulin and notify physician. If the patient is NPO: DO NOT HOLD correction insulin If patient is eating meals and has orders for Mealtime insulin, combine and give at the same time. $ Given 12/17/2023 5:05 PM CDT 8 Units Abd Left Upper Quadrant $ Given 12/17/2023 12:44 PM CDT 10 Units A bd Left Upper Quadrant $ Given 12/17/2023 9:39 AM CDT 8 Units Ab d Left Upper Quadrant insulin aspart (NovoLOG) pen 0-12 Units 0-12 Units, Subcutaneous, 3 TIMES DAILY WITH MEALS, First dose on Sun12/18/23 at 0800, Until Discontinued, Standard Dose: Correction Insulin Bedside glucose should be done within 30-60 minutes of correction insulin administration. BG (mg/dL) Corrective Action LESS than 70 follow Hypoglycemic guidelines, 70-140 NO Correction insulin, 141-180 GIVE 2 units of insulin, 181-220 GIVE 4 units of insulin, 221-260 GIVE 6 units of insulin, 261-300 GIVE 8 units of insulin, 301-350 GIVE 10 units of insulin Greater than 350 GIVE 12 units of insulin and notify physician., If the patient is NPO; DO NOT HOLD correction insulin If patient is eating meals and has orders for Mealtime insulin, combine and give at the same time. $ Given 12/18/2023 12:22 PM CDT 10 Units Abd Left Upper Quadrant $ Given 12/18/2023 8:02 AM CDT 8 Units Le ft Arm insulin aspart (NovoLOG) pen 0-5 Units 0-5 Units, Subcutaneous, AT BEDTIME, First dose on Sun12/18/23 at 2100, Until Discontinued, Standard Dose: Correction Insulin Bedside glucose should be done within 30-60 minutes of correction insulin administration. BG (mg/dL) Corrective Action LESS than 70 follow Hypoglycemic guidelines, 70-180 NO Correction insulin, 181-220 GIVE 1 units of insulin, 221-260 GIVE 2 units of insulin, 261-300 GIVE 3 units of insulin, 301-350 GIVE 4 units of insulin Greater than 350 GIVE 5 units of insulin and notify physician. If the patient is NPO; DO NOT HOLD correction insulin If patient is eating meals and has orders for Mealtime insulin, combine and give at the same time. insulin aspart (NovoLOG) pen 5 Units 5 Units, Subcutaneous, 3 TIMES DAILY WITH MEALS, First dose on Sun12/15/23 at 0800, Until Discontinued, Hold MEALTIME insulin if patient is NPO or eating less than 50% of meal -OR- If carb intake for the meal is less than 30 grams. $ Given 12/16/2023 5:00 PM CDT 5 Units Left Arm $ Given 12/16/2023 12:10 PM CDT 5 Units R ight Arm $ Given 12/16/2023 8:38 AM CDT 5 Units Le ft Arm insulin aspart (NovoLOG) pen 6 Units 6 Units, Subcutaneous, 3 TIMES DAILY WITH MEALS, First dose (after last modification) on Sun12/17/23 at 0800, Until Discontinued, Hold MEALTIME insulin if patient is NPO or eating less than 50% of meal. -OR- if carb intake for the meal is less than 30 grams. $ Given 12/17/2023 5:05 PM CDT 6 Units Right Arm $ Given 12/17/2023 12:44 PM CDT 6 Units L eft Arm $ Given 12/17/2023 9:40 AM CDT 6 Units Ab d Right Upper Quadrant insulin aspart (NovoLOG) pen 7 Units 7 Units (rounded from 6.545 Units = 0.07 Units/kg ? 93.5 kg), Subcutaneous, 3 TIMES DAILY WITH MEALS, First dose on Sun12/18/23 at 0800, Until Discontinued, Hold MEALTIME insulin if patient is NPO or eating less than 50% of meal. -OR- if carb intake for the meal is less than 30 grams. $ Given 12/18/2023 12:22 PM CDT 7 Units Abd Left Lower Quadr ant $ Given 12/18/2023 8:02 AM CDT 7 Units Le ft Arm insulin glargine (Lantus) pen 10 Units 10 Units, Subcutaneous, AT BEDTIME, First dose (after last modification) on Sun12/15/23 at 2100, Until Discontinued, Obtain current Blood Glucose if necessary . WASTE DISPOSAL INSTRUCTIONS: Black Bin Disposal required. $ Given 12/16/2023 8:08 PM CDT 10 Units Abdominal Tissue $ Given 12/15/2023 8:25 PM CDT 10 Units Ab dominal Tissue insulin glargine (Lantus) pen 14 Units 14 Units (rounded from 14.025 Units = 0.15 Units/kg ? 93.5 kg), Subcutaneous, AT BEDTIME, First dose on Sun12/17/23 at 2100, Until Discontinued, DO NOT HOLD even if patient is NPO . WASTE DISPOSAL INSTRUCTIONS: Black Bin Disposal required. $ Given 12/17/2023 8:10 PM CDT 14 Units Abdominal Tissue insulin glargine (Lantus) pen 19 Units 19 Units (rounded from 18.7 Units = 0.2 Units/kg ? 93.5 kg), Subcutaneous, AT BEDTIME, First dose on Sun12/18/23 at 2100, Until Discontinued, DO NOT HOLD even if patient is NPO Consider calling physician for dose reduction if patient is made NPO. . WASTE DISPOSAL INSTRUCTIONS: Black Bin Disposal required. insulin glargine (Lantus) pen 5 Units 5 Units, Subcutaneous, AT BEDTIME, First dose on Sun12/14/23 at 2300, Until Discontinued, Obtain current Blood Glucose if necessary . WASTE DISPOSAL INSTRUCTIONS: Black Bin Disposal required. $ Given 12/14/2023 11:42 PM CDT 5 Units Abdominal Tissue levETIRAcetam (Keppra) tablet 500 mg 500 mg, Oral, 2 TIMES DAILY, 14 doses, First dose on Sun12/15/23 at 1115, Last dose on Sun12/21/23 at 2100, Do not crush or chew because of TASTE only. $ Given 12/18/2023 8:03 AM CDT 500 mg $ Given 12/17/2023 8:10 PM CDT 500 mg $ Given 12/17/2023 9:38 AM CDT 500 mg OLANZapine (ZyPREXA) tablet 10 mg 10 mg, Oral, DAILY PRN, agitation and anxiety, Starting on 12/15/23 at 0549, Until 12/17/23 at 1422 $ Given 12/16/2023 8:07 PM CDT 10 mg $ Given 12/16/2023 8:38 AM CDT 10 mg $ Given 12/15/2023 8:24 PM CDT 10 mg OLANZapine (ZyPREXA) tablet 5 mg 5 mg, Oral, DAILY PRN, agitation and anxiety, Starting on Sun12/17/23 at 1421, Until Sun12/18/23 at 1717 ondansetron (disintegrating) (Zofran ODT) tablet 4 mg 4 mg, Oral, EVERY 6 HOURS PRN, Nausea/Vomiting, Starting on Sun12/14/23 at 2216, Until Sun12/18/23 at 1717, Dissolved orally on tongue ondansetron (Zofran) injection 4 mg 4 mg, Intravenous, EVERY 6 HOURS PRN, Nausea/Vomiting, Starting on Sun12/14/23 at 2216, Until Sun12/18/23 at 1717, Administer IV if patient is NPO, actively vomiting, or unable to swallow. oxyCODONE (immediate release) (Roxicodone) tablet 2.5 mg 2.5 mg, Oral, EVERY 4 HOURS PRN, Mild Pain, Starting on Sun12/14/23 at 2215, Until Sun12/18/23 at 1717, Patient preference for lesser PRN pain meds may be honored when the patient requests a less strong medication, a lower dose, or a less intrusive route of administration when the lesser drug, dose and route have been ordered for the patient. This patient request must be documented in the MAR. If both oral and IV options are ordered for the same pain severity, give oral first unless patient cannot tolerate oral intake oxyCODONE (immediate release) (Roxicodone) tablet 5 mg 5 mg, Oral, EVERY 4 HOURS PRN, Moderate Pain, Starting on Sun12/14/23 at 2215, Until Sun12/18/23 at 1717, Patient preference for lesser PRN pain meds may be honored when the patient requests a less strong medication, a lower dose, or a less intrusive route of administration when the lesser drug, dose and route have been ordered for the patient. This patient request must be documented in the MAR. If both oral and IV options are ordered for the same pain severity, give oral first unless patient cannot tolerate oral intake $ Given 12/16/2023 8:39 AM CDT 5 mg $ Given 12/15/2023 8:24 PM CDT 5 mg QUEtiapine (SEROquel) tablet 50 mg 50 mg, Oral, 2 TIMES DAILY, First dose on 12/15/23 at 0000, Until Discontinued $ Given 12/14/2023 11:35 PM CDT 50 m g senna (Senokot) tablet 8.6 mg 8.6 mg, Oral, DAILY, First dose on Sun12/17/23 at 0900, Until Discontinued $ Given 12/18/2023 8:03 AM CDT 8.6 mg $ Given 12/17/2023 9:38 AM CDT 8.6 mg traZODone (Desyrel) tablet 50 mg 50 mg, Oral, AT BEDTIME, First dose on 12/15/23 at 0000, Until Discontinued $ Given 12/17/2023 8:10 PM CDT 50 mg $ Given 12/16/2023 8:08 PM CDT 50 mg $ Given 12/15/2023 8:24 PM CDT 50 mg documented in this encounter Active and Recently Administered Medications Times are shown in CDT. Scheduled Medication Order 12/16/2023 12/17/2023 12/18/2023 0.9% NaCl injection 3 mL(Linked Group 1) 3 mL, Intracatheter, EVERY 8 HOURS, First dose on Sun12/14/23 at 2200, Until Discontinued, Flush peripheral IV catheter with 3 mL of normal saline every 8 hours. 0840 (Not Administered - Provider: Jose Luis Merlos RN - Reason: See Comments - Comment: double entry)1211 (Not Administered - Provider: Jose Luis Merlos RN - Reason: Other - Comment: double entry)2009 ($ Given - Provider: Italo Smith RN) 0942 (Not Administered - Provider: Shandra Arechiga RN - Reason: See Comments)1420 (Not Administered - Provider: Shandra Arechiga RN - Reason: See Comments) 0017 (Not Administered - Provider: Italo Smith RN - Reason: Other)0549 (Not Administered - Provider: Italo Smith RN - Reason: Patient sleeping)1412 (Not Administered - Provider: Mignon Rocha RN - Reason: Refused-Patient) 0.9% NaCl injection 3 mL(Linked Group 2) 3 mL, Intracatheter, EVERY 8 HOURS, First dose on Sun12/14/23 at 2245, Until Discontinued, Flush peripheral IV catheter with 3 mL of normal saline every 8 hours. 0840 ($ Given - Provider: Jose Luis Merlos RN)1211 ($ Given - Provider: Jose Luis Merlos RN)2015 (Not Administered - Provider: Italo Smith RN - Reason: Other) 0941 (Not Administered - Provider: Shandra Arechiga RN - Reason: See Comments)1420 (Not Administered - Provider: Shandra Arechiga RN - Reason: See Comments)2010 ($ Given - Provider: Italo Smith RN) 0549 (Not Administered - Provider: Italo Smith RN - Reason: Patient sleeping)1412 (Not Administered - Provider: Mignon Rocha RN - Reason: Refused-Patient) acetaminophen (Tylenol) tablet 650 mg 650 mg, Oral, EVERY 6 HOURS, First dose on Sun12/14/23 at 2300, Until Discontinued, Patient preference for lesser PRN pain meds may be honored when the patient requests a less strong medication, a lower dose, or a less intrusive route of administration when the lesser drug, dose and route have been ordered for the patient. This patient request must be documented in the MAR. If both oral and IV options are ordered for the same pain severity, give oral first unless patient cannot tolerate oral intake 0500 (Not Administered - Provider: Italo Smith RN - Reason: Other)1131 ($ Given - Provider: Jose Luis Merlos RN)1704 ($ Given - Provider: Jose Luis Merlos RN) 0333 (Not Administered - Provider: Italo Smith RN - Reason: Refused-Patient)0606 (Not Administered - Provider: Italo Smith RN - Reason: Other)1242 ($ Given - Provider: Shandra Arechiga RN)1707 (Not Administered - Provider: Shandra Arechiga RN - Reason: Refused-Patient) 0017 (Not Administered - Provider: Italo Smith RN - Reason: Refused-Patient)0527 (Not Administered - Provider: Italo Smith RN - Reason: Other)1119 (Not Administered - Provider: Mignon Rocha RN - Reason: Refused-Patient) amoxicillin-clavulanate (Augmentin) tablet 875 mg (COMPLETED) 875 mg, Oral, 2 TIMES DAILY, 6 doses, First dose on Sun12/14/23 at 2300, Last dose on Sun12/17/23 at 0900, Administer with food to decrease GI side effects., Indication for anti-infective therapy: Risk of Infection 0842 ($ Given - Provider: Jose Luis Merlos RN)2006 ($ Given - Provider: Italo Smith RN) 0938 ($ Given - Provider: Shandra Arechiga RN) bacitracin topical ointment Topical, 2 TIMES DAILY, First dose on Sun12/15/23 at 0900, Until Discontinued, Apply to face abrasions 0839 ($ Given - Provider: Jose Luis Merlos RN)2009 ($ Given - Provider: Italo Smith RN) 0942 ($ Given - Provider: Shandra Arechiga RN)2009 ($ Given - Provider: Italo Smith RN) 0803 ($ Given - Provider: Mignon Rocha RN) enoxaparin (Lovenox) injection 30 mg 30 mg, Subcutaneous, EVERY 12 HOURS, First dose (after last modification) on Sun12/16/23 at 0900, Until Discontinued, (for prefilled syringes) do not expel air bubble from the syringe prior to the injection Remind Patient to not rub injection site. Could cause hematoma. 0839 ($ Given - Provider: Jose Luis Merlos RN)2014 (Not Administered - Provider: Italo Smith RN - Reason: Refused-Patient) 0941 ($ Given - Provider: Shandra Arechiga RN)2010 (Not Administered - Provider: Italo Smith RN - Reason: Refused-Patient) 0803 (Not Administered - Provider: Mignon Rocha RN - Reason: Refused-Patient) insulin aspart (NovoLOG) pen 0-12 Units (CANCELED) 0-12 Units, Subcutaneous, 3 TIMES DAILY WITH MEALS, First dose on Sun12/15/23 at 0800, Until Discontinued, Low Dose: Correction Insulin Bedside glucose should be done within 30-60 minutes of correction insulin administration. BG (mg/dL) Corrective Action LESS than 70 follow Hypoglycemic guidelines, 70-180 NO Correction insulin, 181-220 GIVE 4 units of insulin, 221-260 GIVE 6 units of insulin, 261-300 GIVE 8 units of insulin, 301-350 GIVE 10 units of insulin, Greater than 350 GIVE 12 units of insulin and notify physician. If the patient is NPO: DO NOT HOLD correction insulin If patient is eating meals and has orders for Mealtime insulin, combine and give at the same time. 0838 ($ Given - Provider: Jose Luis Merlos RN)1210 ($ Given - Provider: Jose Luis Merlos RN)1701 ($ Given - Provider: Jose Luis Merols RN) 0939 ($ Given - Provider: Shandra Arechiga RN)1244 ($ Given - Provider: Shandra Arechiga RN)1705 ($ Given - Provider: Shandra Arechiga RN) insulin aspart (NovoLOG) pen 0-12 Units 0-12 Units, Subcutaneous, 3 TIMES DAILY WITH MEALS, First dose on Sun12/18/23 at 0800, Until Discontinued, Standard Dose: Correction Insulin Bedside glucose should be done within 30-60 minutes of correction insulin administration. BG (mg/dL) Corrective Action LESS than 70 follow Hypoglycemic guidelines, 70-140 NO Correction insulin, 141-180 GIVE 2 units of insulin, 181-220 GIVE 4 units of insulin, 221-260 GIVE 6 units of insulin, 261-300 GIVE 8 units of insulin, 301-350 GIVE 10 units of insulin Greater than 350 GIVE 12 units of insulin and notify physician., If the patient is NPO; DO NOT HOLD correction insulin If patient is eating meals and has orders for Mealtime insulin, combine and give at the same time. 0802 ($ Given - Provider: Mignon Rocha RN)1222 ($ Given - Provider: Mignon Rocha RN) insulin aspart (NovoLOG) pen 0-5 Units 0-5 Units, Subcutaneous, AT BEDTIME, First dose on Sun12/18/23 at 2100, Until Discontinued, Standard Dose: Correction Insulin Bedside glucose should be done within 30-60 minutes of correction insulin administration. BG (mg/dL) Corrective Action LESS than 70 follow Hypoglycemic guidelines, 70-180 NO Correction insulin, 181-220 GIVE 1 units of insulin, 221-260 GIVE 2 units of insulin, 261-300 GIVE 3 units of insulin, 301-350 GIVE 4 units of insulin Greater than 350 GIVE 5 units of insulin and notify physician. If the patient is NPO; DO NOT HOLD correction insulin If patient is eating meals and has orders for Mealtime insulin, combine and give at the same time. insulin aspart (NovoLOG) pen 5 Units (CANCELED) 5 Units, Subcutaneous, 3 TIMES DAILY WITH MEALS, First dose on Sun12/15/23 at 0800, Until Discontinued, Hold MEALTIME insulin if patient is NPO or eating less than 50% of meal -OR- If carb intake for the meal is less than 30 grams. 0838 ($ Given - Provider: Jose Luis Merlos RN)1210 ($ Given - Provider: Jose Luis Merlos RN)1700 ($ Given - Provider: Jose Luis Merlos RN) insulin aspart (NovoLOG) pen 6 Units (CANCELED) 6 Units, Subcutaneous, 3 TIMES DAILY WITH MEALS, First dose (after last modification) on Sun12/17/23 at 0800, Until Discontinued, Hold MEALTIME insulin if patient is NPO or eating less than 50% of meal. -OR- if carb intake for the meal is less than 30 grams. 0940 ($ Given - Provider: Shandra Arechiga RN)1244 ($ Given - Provider: Shandra Arechiga RN)1705 ($ Given - Provider: Shandra Arechiga, RN) insulin aspart (NovoLOG) pen 7 Units 7 Units (rounded from 6.545 Units = 0.07 Units/kg ? 93.5 kg), Subcutaneous, 3 TIMES DAILY WITH MEALS, First dose on Sun12/18/23 at 0800, Until Discontinued, Hold MEALTIME insulin if patient is NPO or eating less than 50% of meal. -OR- if carb intake for the meal is less than 30 grams. 0802 ($ Given - Provider: Mignon Rocha RN)1222 ($ Given - Provider: Mignon Aj, RN) insulin glargine (Lantus) pen 10 Units (CANCELED) 10 Units, Subcutaneous, AT BEDTIME, First dose (after last modification) on Sun12/15/23 at 2100, Until Discontinued, Obtain current Blood Glucose if necessary . WASTE DISPOSAL INSTRUCTIONS: Black Bin Disposal required. 2007 ($ Given - Provider: Italo Smith RN) insulin glargine (Lantus) pen 14 Units (CANCELED) 14 Units (rounded from 14.025 Units = 0.15 Units/kg ? 93.5 kg), Subcutaneous, AT BEDTIME, First dose on Sun12/17/23 at 2100, Until Discontinued, DO NOT HOLD even if patient is NPO . WASTE DISPOSAL INSTRUCTIONS: Black Bin Disposal required. 2009 ($ Given - Provider: Italo Smith RN) insulin glargine (Lantus) pen 19 Units 19 Units (rounded from 18.7 Units = 0.2 Units/kg ? 93.5 kg), Subcutaneous, AT BEDTIME, First dose on Sun12/18/23 at 2100, Until Discontinued, DO NOT HOLD even if patient is NPO Consider calling physician for dose reduction if patient is made NPO. . WASTE DISPOSAL INSTRUCTIONS: Black Bin Disposal required. levETIRAcetam (Keppra) tablet 500 mg 500 mg, Oral, 2 TIMES DAILY, 14 doses, First dose on Sun12/15/23 at 1115, Last dose on Sun12/21/23 at 2100, Do not crush or chew because of TASTE only. 0839 ($ Given - Provider: Jose Luis Merlos RN)2006 ($ Given - Provider: Italo Smith RN) 937 ($ Given - Provider: Shandra Arechiga, JULISSA)2009 ($ Given - Provider: Italo Smith RN) 802 ($ Given - Provider: Mignon Rocha, JULISSA) senna (Senokot) tablet 8.6 mg 8.6 mg, Oral, DAILY, First dose on Sun12/17/23 at 0900, Until Discontinued 937 ($ Given - Provider: Shandra Arechiga, RN) 802 ($ Given - Provider: Mignon Rocha, RN) traZODone (Desyrel) tablet 50 mg 50 mg, Oral, AT BEDTIME, First dose on Sun12/15/23 at 0000, Until Discontinued 2007 ($ Given - Provider: Italo Smith, RN) 2009 ($ Given - Provider: Italo Smith, RN) PRN Medication Order 12/16/2023 12/17/2023 12/18/2023 0.9% NaCl injection 1-10 mL(Linked Group 1) 1-10 mL, Intracatheter, PRN, Other, peripheral line flush, Starting on Sun12/14/23 at 2023, Until Sun12/18/23 at 1717, Flush peripheral IV catheter with 1-10 mL of normal saline before and after medications and prn to clear blood from the line or to verify patency. 0.9% NaCl injection 1-10 mL(Linked Group 2) 1-10 mL, Intracatheter, PRN, Other, peripheral line flush, Starting on Sun12/14/23 at 2214, Until Sun12/18/23 at 1717, Flush peripheral IV catheter with 1-10 mL of normal saline before and after medications and prn to clear blood from the line or to verify patency. dextrose 10 % IV bolus(Linked Group 3) 12.5 g, at 468.75 mL/hr, Intravenous, PRN, Other, Bedside Glucose less than 70 mg/dL -If NOT able to eat and/or NPO and with IV Access, Starting on Sun12/14/23 at 2217, Until Sun12/18/23 at 1717, If NOT able to eat and/or NPO and with IV Access: For Bedside Glucose 54-69 mg/dL give 12.5 g Dextrose IV STAT For Bedside Glucose LESS than 54 mg/dl verify with a second Bedside Glucose (from a different site) and give 25 g Dextrose IV STAT Re-check and Re-treat blood glucose EVERY , 10-25 minutes until blood glucose GREATER than or equal to 80 mg/dl. NOTIFY PROVIDER OF HYPOGLYCEMIC EVENT. dextrose 10 % IV bolus(Linked Group 3) 25 g, at 937.5 mL/hr, Intravenous, PRN, Other, Bedside Glucose less than 70 mg/dL -If NOT able to eat and/or NPO and with IV Access, Starting on Sun12/14/23 at 2217, Until Sun12/18/23 at 1717, If NOT able to eat and/or NPO and with IV Access: For Bedside Glucose 54-69 mg/dL - give 12.5 g Dextrose IV STAT For Bedside Glucose LESS than 54 mg/dl - verify with a second Bedside Glucose (from a different site) and give 25 g Dextrose IV STAT Re-check and Re-treat blood glucose EVERY - 10-25 minutes until blood glucose GREATER than or equal to 80 mg/dl. - If repeat bedside glucose 54-79 give 12.5 g Dextrose IV STAT NOTIFY PROVIDER OF HYPOGLYCEMIC EVENT. glucagon (Glucagen) injection 1 mg(Linked Group 3) 1 mg, Subcutaneous, PRN, Bedside Glucose less than 70 mg/dL - If NOT able to eat and/or NPO and withOUT IV Access, Starting on Sun12/14/23 at 2217, Until Sun12/18/23 at 1717, If NOT able to eat and/or NPO and NO IV Access: For Bedside glucose 54-69 mg/dL ? - Give 1 mg subcutaneous For Bedside Glucose LESS than 54 mg/dl ? -?verify with a second bedside glucose (from a different site) ? -?Give 1 mg subcutaneous Re-check and Re-treat blood glucose EVERY 10-25 minutes until blood glucose GREATER than or equal to 80 mg/dl.? NOTIFY PROVIDER OF HYPOGLYCEMIC EVENT. Reconstitute vial with 1 mL of sterile water for injection for a final concentration of 1 mg/mL; shake vial gently; use immediately and discard unused portion glucose (Diabetic Use) oral gel Oral, PRN, Other, Bedside Glucose less than 70 mg/dL, Starting on Sun12/14/23 at 2217, Until Sun12/18/23 at 1717, If able to take oral medications: For Bedside Glucose 54 - 69 mg/dL Give 15 grams of oral carbohydrates - 1 glucose gel (see MAR) If patient refuses glucose gel, then offer: - 4 ounces of fruit juice OR - 4 ounces non-diet soda OR - 8 ounces of fat-free milk For Bedside Glucose LESS than 54 mg/dL verify with a second Bedside Glucose (from a different site) - If pt is symptomatic, do not delay treatment - If accuracy of the POC glucose is in question, confirm glucose with a STAT laboratory test Give 30 grams of oral carbohydrates - 2 glucose gels (see MAR) If patient refuses glucose gel, then offer: - 8 ounces of fruit juice OR - 8 ounces non-diet soda OR - 16 ounces of fat-free milk Re-check and Re-treat blood glucose EVERY 10-25 minutes until blood glucose GREATER than or equal to 80 mg/dl. - If on recheck, bedside glucose 54-79 mg/dL - Give 15 grams of oral carbohydrates (see above for choices) NOTIFY PROVIDER OF HYPOGLYCEMIC EVENT. OLANZapine (ZyPREXA) tablet 10 mg (CANCELED) 10 mg, Oral, DAILY PRN, agitation and anxiety, Starting on 12/15/23 at 0549, Until 12/17/23 at 1422 0838 ($ Given - Provider: Jose Luis Merlos RN)2006 ($ Given - Provider: Italo Smith RN) OLANZapine (ZyPREXA) tablet 5 mg 5 mg, Oral, DAILY PRN, agitation and anxiety, Starting on Sun12/17/23 at 1421, Until Sun12/18/23 at 1717 ondansetron (disintegrating) (Zofran ODT) tablet 4 mg(Linked Group 4) 4 mg, Oral, EVERY 6 HOURS PRN, Nausea/Vomiting, Starting on Sun12/14/23 at 2216, Until Sun12/18/23 at 1717, Dissolved orally on tongue ondansetron (Zofran) injection 4 mg(Linked Group 4) 4 mg, Intravenous, EVERY 6 HOURS PRN, Nausea/Vomiting, Starting on Sun12/14/23 at 2216, Until Sun12/18/23 at 1717, Administer IV if patient is NPO, actively vomiting, or unable to swallow. oxyCODONE (immediate release) (Roxicodone) tablet 2.5 mg(Linked Group 5) 2.5 mg, Oral, EVERY 4 HOURS PRN, Mild Pain, Starting on Sun12/14/23 at 2215, Until Sun12/18/23 at 1717, Patient preference for lesser PRN pain meds may be honored when the patient requests a less strong medication, a lower dose, or a less intrusive route of administration when the lesser drug, dose and route have been ordered for the patient. This patient request must be documented in the MAR. If both oral and IV options are ordered for the same pain severity, give oral first unless patient cannot tolerate oral intake 0839 (See Alternative - Provider: Jose Luis Merlos RN) oxyCODONE (immediate release) (Roxicodone) tablet 5 mg(Linked Group 5) 5 mg, Oral, EVERY 4 HOURS PRN, Moderate Pain, Starting on Sun12/14/23 at 2215, Until Sun12/18/23 at 1717, Patient preference for lesser PRN pain meds may be honored when the patient requests a less strong medication, a lower dose, or a less intrusive route of administration when the lesser drug, dose and route have been ordered for the patient. This patient request must be documented in the MAR. If both oral and IV options are ordered for the same pain severity, give oral first unless patient cannot tolerate oral intake 0839 ($ Given - Provider: Jose Luis Merlos RN) Linked Groups Order Group 1: SALINE LOCK, INSERT AND MAINTAIN (CANCELED) Routine, CONTINUOUS, Starting on Sun12/14/23 at 2030, Until Specified, New collection, Task Completed: Yes And 0.9% NaCl injection 3 mLJump to med 3 mL, Intracatheter, EVERY 8 HOURS, First dose on Sun12/14/23 at 2200, Until Discontinued, Flush peripheral IV catheter with 3 mL of normal saline every 8 hours. And 0.9% NaCl injection 1-10 mLJump to med 1-10 mL, Intracatheter, PRN, Other, peripheral line flush, Starting on Sun12/14/23 at 2023, Until Sun12/18/23 at 1717, Flush peripheral IV catheter with 1-10 mL of normal saline before and after medications and prn to clear blood from the line or to verify patency. Group 2: SALINE LOCK, INSERT AND MAINTAIN (CANCELED) Routine, CONTINUOUS, Starting on Sun12/14/23 at 2215, Until Specified, New collection, Task Completed: Yes And 0.9% NaCl injection 3 mLJump to med 3 mL, Intracatheter, EVERY 8 HOURS, First dose on Sun12/14/23 at 2245, Until Discontinued, Flush peripheral IV catheter with 3 mL of normal saline every 8 hours. And 0.9% NaCl injection 1-10 mLJump to med 1-10 mL, Intracatheter, PRN, Other, peripheral line flush, Starting on Sun12/14/23 at 2214, Until Sun12/18/23 at 171, Flush peripheral IV catheter with 1-10 mL of normal saline before and after medications and prn to clear blood from the line or to verify patency. Group 3: dextrose 10 % IV bolusJump to med 12.5 g, at 468.75 mL/hr, Intravenous, PRN, Other, Bedside Glucose less than 70 mg/dL -If NOT able to eat and/or NPO and with IV Access, Starting on Sun12/14/23 at 2217, Until Sun12/18/23 at 1716, If NOT able to eat and/or NPO and with IV Access: For Bedside Glucose 54-69 mg/dL give 12.5 g Dextrose IV STAT For Bedside Glucose LESS than 54 mg/dl verify with a second Bedside Glucose (from a different site) and give 25 g Dextrose IV STAT Re-check and Re-treat blood glucose EVERY , 10-25 minutes until blood glucose GREATER than or equal to 80 mg/dl. NOTIFY PROVIDER OF HYPOGLYCEMIC EVENT. Or dextrose 10 % IV bolusJump to med 25 g, at 937.5 mL/hr, Intravenous, PRN, Other, Bedside Glucose less than 70 mg/dL -If NOT able to eat and/or NPO and with IV Access, Starting on Sun12/14/23 at 2217, Until Sun12/18/23 at 1716, If NOT able to eat and/or NPO and with IV Access: For Bedside Glucose 54-69 mg/dL - give 12.5 g Dextrose IV STAT For Bedside Glucose LESS than 54 mg/dl - verify with a second Bedside Glucose (from a different site) and give 25 g Dextrose IV STAT Re-check and Re-treat blood glucose EVERY - 10-25 minutes until blood glucose GREATER than or equal to 80 mg/dl. - If repeat bedside glucose 54- 79 give 12.5 g Dextrose IV STAT NOTIFY PROVIDER OF HYPOGLYCEMIC EVENT. Or glucagon (Glucagen) injection 1 mgJump to med 1 mg, Subcutaneous, PRN, Bedside Glucose less than 70 mg/dL - If NOT able to eat and/or NPO and withOUT IV Access, Starting on Sun12/14/23 at 2217, Until Sun12/18/23 at 1716, If NOT able to eat and/or NPO and NO IV Access: For Bedside glucose 54-69 mg/dL ? - Give 1 mg subcutaneous For Bedside Glucose LESS than 54 mg/dl ? -?verify with a second bedside glucose (from a different site) ? - ?Give 1 mg subcutaneous Re-check and Re-treat blood glucose EVERY 10-25 minutes until blood glucose GREATER than or equal to 80 mg/dl.? NOTIFY PROVIDER OF HYPOGLYCEMIC EVENT. Reconstitute vial with 1 mL of sterile water for injection for a final concentration of 1 mg/mL; shake vial gently; use immediately and discard unused portion Group 4: ondansetron (disintegrating) (Zofran ODT) tablet 4 mgJump to med 4 mg, Oral, EVERY 6 HOURS PRN, Nausea/Vomiting, Starting on Sun12/14/23 at 2216, Until Sun12/18/23 at 1717, Dissolved orally on tongue Or ondansetron (Zofran) injection 4 mgJump to med 4 mg, Intravenous, EVERY 6 HOURS PRN, Nausea/Vomiting, Starting on Sun12/14/23 at 2216, Until Sun12/18/23 at 1717, Administer IV if patient is NPO, actively vomiting, or unable to swallow. Group 5: oxyCODONE (immediate release) (Roxicodone) tablet 2.5 mgJump to med 2.5 mg, Oral, EVERY 4 HOURS PRN, Mild Pain, Starting on Sun12/14/23 at 2215, Until Sun12/18/23 at 1717, Patient preference for lesser PRN pain meds may be honored when the patient requests a less strong medication, a lower dose, or a less intrusive route of administration when the lesser drug, dose and route have been ordered for the patient. This patient request must be documented in the MAR. If both oral and IV options are ordered for the same pain severity, give oral first unless patient cannot tolerate oral intake Or oxyCODONE (immediate release) (Roxicodone) tablet 5 mgJump to med 5 mg, Oral, EVERY 4 HOURS PRN, Moderate Pain, Starting on Sun12/14/23 at 2215, Until Sun12/18/23 at 1717, Patient preference for lesser PRN pain meds may be honored when the patient requests a less strong medication, a lower dose, or a less intrusive route of administration when the lesser drug, dose and route have been ordered for the patient. This patient request must be documented in the MAR. If both oral and IV options are ordered for the same pain severity, give oral first unless patient cannot tolerate oral intake documented in this encounter Additional Health Concerns Infection Onset Date Last Indicated Resolved Time COVID-19 Under Investigation 12/14/2023 12/14/2023 12/25/2023 4:33 AM CDT MRSA Hx 12/17/2023 12/17/2023 documented as of this encounter
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
--- OUTSIDE RECORDS SUMMARY | 2024-08-23 18:33 | XMS_ITS | Encounter Summary ---
Author Organization [facility] Address [address] [place] [address] Care Team Providers Care Meter Reading Clerk Name Role Phone Unavailable Primary Care Provider Unavailabl e Reason for Visit * Reason Onset Date Comments Transitional Care 12/20/2023 This RN contac phill patient to ensure she had follow up. Patient states she is going to see PCP, Wiliam Pacheco, couldn't give details. Encounter Details Date Type Department Care Team (Late st Contact Info) Description 12/20/2023 Telephone Transitional Care at [address] [address] Ruba Mary, educational aide (This RN contacted patient to ensure she had follow up. Patient states she is going to see PCP, Wiliam Pacheco, couldn't give details.) Social History Tobacco Use Types Packs/Day Years [...] medical care, and heating? Somewhat hard 12/17/2023 [facility] [place] of Occupat ional Health - Occupational Stress [...] place to sleep or slept in a m[facility]p (including now)? No 12/17/2023 Sex and Gender [...] documented as of this encounter Visit Diagnoses Not on filedocumented in this encounter Additional Health Concerns Infection Onset Date Last Indicated Resolved Time COVID-19 Under Investigation 12/14/2023 12/14/2023 12/25/2023 4:33 AM CDT MRSA Hx 12/17/2023 12/17/2023 documented as of this encounter
--- OUTSIDE RECORDS SUMMARY | 2024-08-23 18:33 | XMS_ITS | Encounter Summary ---
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 Somewhat hard 12/17/[address] [facility] [place] of Occupat ional Health - Occupational Stress [...] No 12/17/2023 documented as of this encounter Miscellaneous Notes * Telephone Encounter - Sabrina Fu RNFA - 12/24/2023 10:07 AM CDT Returning patients call. M. PRS contact information given. ERICA Tong 12/24/2023 10:07 AM documented in this encounter Plan of Treatment Not on file documented as of this encounter Visit Diagnoses Not on filedocumented in this encounter Additional Health Concerns Infection Onset Date Last Indicated Resolved Time COVID-19 Under Investigation 12/14/2023 12/14/2023 12/25/2023 4:33 AM CDT MRSA Hx 12/17/2023 12/17/2023 documented as of this encounter
--- OUTSIDE RECORDS SUMMARY | 2024-08-23 18:33 | XMS_ITS | Encounter Summary ---
Author Organization [facility] Address [address] [place] [address] Care Team Providers Care Hr Manager Name Role Phone Unavailable Primary Care Provider Unavailabl e Reason for Visit * Reason Comments Transitional Care Encounter Details Date Type Department Care Team (Late st Contact Info) Description 12/19/2023 Transitional Care Transitional Care at [address] [address] Ruba Mary, care services manager Social History Tobacco Use Types Packs/Day Years [...] medical care, and heating? Somewhat hard 12/17/2023 [facility] [place] of Occupat ional Health - Occupational Stress [...] place to sleep or slept in a skilled nursing (including now)? No 12/17/2023 Sex and Gender [...] encounter Miscellaneous Notes * Telephone Encounter - Ruba Mary RN - 12/19/2023 10:45 AM CDT RN 48 hour post discharge follow-up contact by telephone: Patient with recent IP discharge from [facility] on 12/18/23 . This RN contacted Farzana Bran by telephone ([phone]) to complete 48 hour post-discharge follow-up contact for [facility] appointment. 1) How are you feeling? Patient states she is feeling ok 2) How is your mobility? Patient states mobility is limited 3) New concerns or problems? No 4) Have you had to go the ER for any reason? No 5) Any questions about your discharge diagnosis and instructions? No 6) Do you have a follow up appointment made? Patient is contacting her PCP today and trying to set up inpatient rehab. This RN to call back tomorrow. 7) Do you currently have home health, any questions about home care? No 8) Have you filled all of your RX's? Yes 9) Any questions or concerns that we can help you with? No Farzana Bran denied any questions related to diet, medications, or condition at this time. Patient was encouraged to call this teletypewriter operator with questions, concerns, barriers to care, and/or additional resources if needed. Patient verbalized understanding and agreement with plan. This RN will continue to provide post-discharge monitoring until patient completes [facility] follow up. Call Duration: 5 min Ruba Mary RN, BSN [employer], [facility] Office: [phone] 12/19/2023 documented in this encounter Plan of Treatment Not on file documented as of this encounter Visit Diagnoses Not on filedocumented in this encounter Additional Health Concerns Infection Onset Date Last Indicated Resolved Time COVID-19 Under Investigation 12/14/2023 12/14/2023 12/25/2023 4:33 AM CDT MRSA Hx 12/17/2023 12/17/2023 documented as of this encounter
--- OUTSIDE RECORDS SUMMARY | 2024-08-23 18:33 | XMS_ITS | Referral Summary ---
Author Organization [facility] Address [address] [place] [address] Care Team Providers Care College Associate Name Role Phone Unavailable Primary Care Provider Unavailabl e Source Comments [facility],non-owned Affiliates and Associated Physician Practices is amultiple site organization consisting of ambulatory clinics and hospital sitesin [place], [place], [place] and [place]. This disclosure is being madepursuant to the Care Everywhere program and may not contain all information available regarding this patient. Last updated 18.[facility] [employer] Allergies Active Allergy Reactions Criticality Noted Date [...] medical care, and heating? Somewhat hard 12/17/2023 [facility] [place] of Occupat ional Health - Occupational Stress [...] place to sleep or slept in a nursing home (including now)? No 12/17/2023 Sex and Gender [...] Mass Index 29.57 12/14/2023 11:39 PM CDT Functional Status Functional Status Response Date of [...] person have difficulty concentrating/remembering/making decisions? No 12/17/2023 Plan of Treatment Not on file Procedures Procedure Name Priority Date/Time Associated Diagnosis Comments GLUCOSE - POINT OF CARE Routine 12/18/2023 12:10 AM CDT from Last 3 Months or Most Recently Relevant to Health Maintenance Results * (ABNORMAL) GLUCOSE - POINT OF CARE (12/18/2023 12:10 AM CDT) Glucose WB/POC 328(H) 70 - 115 mg/dL 12/18/2023 12:11 AM CDT [facility] Specimen Type Cap Fingerstick 2023 12:11 AM CDT [facility] Blood BLOOD SPECIMEN / Unknown 12/18/2023 12:10 AM CDT 12/18/2023 12:11 AM CDT Ho Parada MD LAB - POINT OF CARE ORDERABLES [facility] [address] [place] [address], [facility] [phone] from Last 3 Months or Most Recently [...]
--- OUTSIDE RECORDS SUMMARY | 2024-08-23 18:33 | XMS_ITS | Patient Health Summary ---
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 TECHNIQUE: CT of the temporal bones was performed without contrast according to standard protocol. CT dose reduction technique was used, including Automated Exposure Control. COMPARISON: No prior study is available for comparison at the time ofthis dictation. FINDINGS: Right temporal bone: The mastoid air cells are clear. the externalauditory canal and auricle appear normal. The tympanic membrane is normal. The middle ear cavity including the middle ear ossicles, scutum andPrussak's space appear normal. The bony labyrinth including the cochlea and the semicircular canals, internal auditory canal, and petrous apex appear normal. The carotid canal, jugular foramen, and course of the facialnerve appear normal. Left temporal bone: The mastoid air cells are clear. the externalauditory canal and auricle appear normal. The tympanic membrane is normal. The middle ear cavity including the middle ear ossicles, scutum andPrussak's space appear normal. The bony labyrinth including the cochlea and the semicircular canals, internal auditory canal, and petrous apex appear normal. The carotid canal, jugular foramen, and course of the facialnerve appear normal. Please refer to prior CTs for detail evaluation of the right-sidedmiddle cranial fossa fractures of fractures along the right greater wing of the sphenoid, right maxillofacial fractures. IMPRESSION: 1.No evidence of acute fracture of the bilateral temporal bones. The report is dictated by Juventino Pierre MD, (Cytologist) I, Gosia Wilson MD have personally reviewed and interpreted this examination/study. > Interpreting Provider: Gosia Wilson MD on 12/11/2023 2:13 PM Snehal Miller MD CT ORDERABLES * (ABNORMAL) HEMOGLOBIN A1C (12/11/2023 5:13 AM CDT) Hemoglobin A1c 8.4(H) <=5.6 % 12/11/2023 9:24 AM CDT [facility] Estimated Average Glucose 194 mg/dL 12/11/2023 9:24 AM CDT [facility] Comment: HbA1c Interpretation: Normal : < 5.7% Pre-diabetes: 5.7-6.4% Diabetes: Equal to or greater than 6.5% Test results diagnostic of diabetes should be repeated for confirmation. Treatment target values recommended by ADA and other clinical organizations should be used to evaluate metabolic control in patients. Reference: [place] [employer], Standards of Care in Diabetes -2020 In patients 70 years and older consider HbA1c target range of 7.0-7.5% (Reference: Mata Flowers, et al. JAMDA. 2012) The Sebia assay for the measurement of HbA1c is a National Glycohemoglobin Standardization Program (NGSP) certified method. Blood BLOOD SPECIMEN / Unknown Venipuncture / Unknown 12/11/2023 5:13 AM CDT 12/11/2023 5:26 AM CDT Ganesh Diaz MD LAB - CHEMISTRY ORD ERABLES [facility] [address] [place] [id number], [facility] [phone] * (ABNORMAL) URINE DRUG SCREEN IMMUNOASSAY (12/10/2023 10:30 PM CDT) Amphetamines Screen Urine Positive(A) Negative : < 1000 ng/mL 12/10/2023 10:53 PM CDT [facility] Comment: Positive urine amphetamine screening results should be confirmed by another generally accepted non-immunological method such as gas chromatography or mass spectrometry. ? Barbiturates Screen Urine Negative Negative : < 200 ng/mL 12/10/2023 10:53 PM [facility] Benzodiazepine Screen Urine Positive(A) Negative : < 200 ng/mL 12/10/2023 10:53 PM [facility] Comment: Positive urine benzodiazepine screening results should be confirmed by another generally accepted non-immunological method such as gas chromatography or mass spectrometry. ? Opiates Urine Negative Negative : < 300 ng/mL 12/10/2023 10:53 PM [facility] Cocaine Metabolites Urine Negative Negative : < 300 ng/mL 12/10/2023 10:53 PM [facility] Phencyclidine Screen Urine Negative Negative : < 25 ng/ml 12/10/2023 10:53 PM [facility] Cannabinoids Screen Urine Positive(A) Negative : <50 ng/mL 12/10/2023 10:53 PM [facility] Comment:Positive urine canna binoids (THC) screening results should be confirmed by another generally accepted non-immunological method such as gas chromatography or mass spectrometry. Methadone Screen Urine Negative Negative : < 300 ng/mL 12/10/2023 10:53 PM [facility] Fentanyl Screen Urine Negative Negative : <1.5 ng/mL 12/10/2023 10:53 PM [facility] Urine URINE / Unknown Collection / Unknown 12/10/2023 10:30 PM CDT 12/10/2023 10:33 PM CDT [facility] - 12/10/2023 10:53 PM CDT The Urine Toxicology Screening Panel does not screen for Propoxyphene, Meprobamate, Carisoprodol, Trazodone, [id number] medications and/or volatiles (Acetone, Isopropanol, Methanol or Ethylene Glycol). Ethanol, Salicylate, Acetaminophen, Tricyclic Antidepressants and several therapeutic drugs may be individually assayed in serum or plasma specimen. Toxicology testing by the [facility] is an aid to medical diagnosis and treatment of patients. No documented chain of custody was maintained. Results are intended to be used for clinical purposes only. ? Francois Osborn MD LAB - URINE CHEMISTR Y ORDERABLES Performing Organization Address [facility] de Phone Number [facility] [address] [place] [address], [place] [phone] * BLOOD TYPE VERIFICATION (12/10/2023 8:09 PM CDT) ABO Rh O NEG 12/10/2023 8:4 9 PM CDT [facility] Blood Bank BLOOD SPECIMEN / Unknown Lab Venipuncture / Unknown 12/10/2023 8:09 PM CDT 12/10/2023 8:26 PM CDT Chichi Peña MD LAB - BLOOD BANK ORD ERABLES Performing Organization Address [facility] de Phone Number [facility] [address] [place] [address], [place] [phone] * CT CHEST ABDOMEN PELVIS W CONT - Abdomen-pelvis trauma, blunt or penetrating (12/10/2023 7:56 PM CDT) Anatomical Region Laterality Modality Chest, Abdomen, Pelvis Computed Tomography 12/10/2023 7:53 PM CDT Impressions 12/10/2023 8:46 PM CDT Impression: 1.No acute visceral, vascular, or osseus injury identified in the chest, abdomen, or pelvis. 2.Chronic bilateral L5 pars interarticularis defects. 3.The liver is shrunken with a nodular surface contour. In conjunction with splenic varices and splenomegaly, findings may represent diffuse hepatic parenchymal disease and elevated portal venous pressures. 4.Indeterminant adrenal lesions bilaterally measuring 1.9 cm on the left and 1.7 cm on the right respectively. Adrenal protocol CT/MRI can be obtained for further evaluation if clinically appropriate. > Dictated by Jimmy Murphy DO (vice president network). I, Jamshid Geller MD have personally reviewed and interpreted this examination/study. > Interpreting Provider: Jamshid Geller MD on 12/10/2023 8:46 PM Narrative 12/10/2023 8:46 PM CDT PROCEDURE: ??CT CHEST ABDOMEN PELVIS W CONT, DATE/TIME OF EXAM: ??12/10/2023 7:58 PM, LOCATION ??[facility] INDICATION: Trauma ADDITIONAL CLINICAL INFORMATION: Ordering Provider Reason For Exam: Technologist Note: Additional: COMPARISON: None. TECHNIQUE: CT of the chest, abdomen, and pelvis was performed after the uneventful administration of 100 mL of Isovue 370 intravenous contrast according to standard protocol. Findings: Chest: Lower Neck and Axillae: Hypoattenuating lesion in the right thyroid lobe measuring up to 0.9 cm (series 3, image 24). No axillary lymphadenopathy. Lungs: Mild bibasilar subsegmental atelectasis is present. No focal consolidation. Calcified granuloma in the right middle lobe (series 3, image 93). No suspicious pulmonary nodules are identified. No pleural fluid or pneumothorax is present. Heart and Pericardium: The cardiac chambers are normal in size. No pericardial fluid or thickening is present. The coronary arteries are atherosclerotic. Mediastinum and Nidhi: No mediastinal hemorrhage is present. No enlarged lymph nodes are present. Thoracic Vasculature: The aorta and its branch vessels are atherosclerotic. Abdomen/pelvis: Liver: The liver is shrunken with a nodular surface contour. The left hemiliver is hypertrophied. No focal hepatic lesion is identified. Gallbladder and Bile Ducts: Multiple gallstones are seen. No wall thickening or pericholecystic fluid. Spleen: Multiple calcified granulomas are noted in the spleen, likely sequelae of prior granulomatous disease. The spleen is enlarged measuring up to 15 cm in maximum craniocaudal dimension. Pancreas: Fatty atrophy of the pancreas. Adrenals: Left adrenal lesion measuring 1.9 cm (series 7, image 41). Right adrenal lesion measuring 1.7 cm (series 7, image 33). Kidneys: Normal. Gastrointestinal: The stomach and visualized loops of large and small bowel are unremarkable. Normal appendix. Mesentery/Peritoneum/Retroperitoneum: No free intraperitoneal air. No free fluid in the abdomen or pelvis. Multiple clips are noted in the right pelvis. Bladder: Normal. Reproductive Organs: The uterus is normal. Abdominal Vasculature: Extensive atherosclerotic calcification of the aorta and its branch vessels. Splenic varices are noted. Bones: Bone windows demonstrate no suspicious lytic or blastic lesions. The visible osseous structures are intact. Degenerative changes are seen in the spine. Chronic bilateral L5 pars interarticularis defects. Grade 1 anterolisthesis of L5 on S1. Retrolisthesis of L4 on L5. Right hip prosthesis with adjacent streak artifact obscuring soft tissue and osseous detail. Soft tissues: Normal. Procedure Note Jamshid Geller MD - 12/10/2023 PROCEDURE: CT CHEST ABDOMEN PELVIS W CONT, DATE/TIME OF EXAM:12/10/2023 7:58 PM, LOCATION [facility] INDICATION: Trauma ADDITIONAL CLINICAL INFORMATION: Ordering Provider Reason For Exam: Technologist Note: Additional: COMPARISON: None. TECHNIQUE: CT of the chest, abdomen, and pelvis was performed after the uneventful administration of 100 mL of Isovue 370 intravenous contrast according to standard protocol. Findings: Chest: Lower Neck and Axillae: Hypoattenuating lesion in the right thyroid lobe measuring up to 0.9 cm (series 3, image 24). No axillary lymphadenopathy. Lungs: Mild bibasilar subsegmental atelectasis is present. No focalconsolidation. Calcified granuloma in the right middle lobe (series 3, image 93). No suspicious pulmonary nodules are identified. No pleural fluid or pneumothorax is present. Heart and Pericardium: The cardiac chambers are normal in size. No pericardial fluid orthickening is present. The coronary arteries are atherosclerotic. Mediastinum and Nidhi: No mediastinal hemorrhage is present. No enlarged lymph nodes arepresent. Thoracic Vasculature: The aorta and its branch vessels are atherosclerotic. Abdomen/pelvis: Liver: The liver is shrunken with a nodular surface contour. The left hemiliveris hypertrophied. No focal hepatic lesion is identified. Gallbladder and Bile Ducts: Multiple gallstones are seen. No wall thickening or pericholecystic fluid. Spleen: Multiple calcified granulomas are noted in the spleen, likely sequelaeof prior granulomatous disease. The spleen is enlarged measuring up to 15cm in maximum craniocaudal dimension. Pancreas: Fatty atrophy of the pancreas. Adrenals: Left adrenal lesion measuring 1.9 cm (series 7, image 41). Right adrenal lesion measuring 1.7 cm (series 7, image 33). Kidneys: Normal. Gastrointestinal: The stomach and visualized loops of large and small bowel areunremarkable. Normal appendix. Mesentery/Peritoneum/Retroperitoneum: No free intraperitoneal air. No free fluid in the abdomen or pelvis. Multiple clips are noted in the right pelvis. Bladder: Normal. Reproductive Organs: The uterus is normal. Abdominal Vasculature: Extensive atherosclerotic calcification of the aorta and its branch vessels. Splenic varices are noted. Bones: Bone windows demonstrate no suspicious lytic or blastic lesions. The visible osseous structures are intact. Degenerative changes are seen inthe spine. Chronic bilateral L5 pars interarticularis defects. Grade 1 anterolisthesis of L5 on S1. Retrolisthesis of L4 on L5. Right hip prosthesis with adjacent streak artifact obscuring soft tissue andosseous detail. Soft tissues: Normal. Impression: 1.No acute visceral, vascular, or osseus injury identified in the chest, abdomen, or pelvis. 2.Chronic bilateral L5 pars interarticularis defects. 3.The liver is shrunken with a nodular surface contour. In conjunctionwith splenic varices and splenomegaly, findings may represent diffuse hepatic parenchymal disease and elevated portal venous pressures. 4.Indeterminant adrenal lesions bilaterally measuring 1.9 cm on the left and 1.7 cm on the right respectively. Adrenal protocol CT/MRI can be obtained for further evaluation if clinically appropriate. > Dictated by Jimmy Murphy DO (vice president network). I, Jamshid Geller MD have personally reviewed and interpreted this examination/study. > Interpreting Provider: Jamshid Geller MD on 12/10/2023 8:46 PM Francois Osborn MD CT ORDERABLES * CT LUMBAR SPINE WO CONTRAST - T/L-spine trauma, Spine fracture (12/10/2023 7:56 PM CDT) Anatomical Region Laterality Modality Spine Computed Tomogra phy 12/10/2023 8:01 PM CDT Impressions 12/11/2023 12:03 AM CDT IMPRESSION: 1.Sequela of TBI with multi-compartmental intracranial [...] detail with the patient's care provider, Drs. ??Chan and Marck by Dr. Ferrari via telephone at 12/10/2023 8:50 PM with readback comprehension and verification. ?? The report is dictated by Jeaneth Ferrari MD (vice president network) I, Giovani Wynne MD have personally reviewed and interpreted this examination/study. > Interpreting Provider: Giovani Wynne MD on 12/11/2023 12:03 AM Narrative 12/11/2023 12:03 AM CDT PROCEDURE: ??CT HEAD WO CONTRAST, CT FACIAL BONES WO CONTRAST, CT LUMBAR SPINE WO CONTRAST, CT THORACIC SPINE WO CONTRAST, CT CERVICAL SPINE WO CONTRAST, DATE/TIME OF EXAM: ??12/10/2023 7:58 PM, LOCATION ??[facility] INDICATION: Trauma EXAMINATION: 1.Computed tomography (CT) of the head without contrast 2.CT of the maxillofacial bones, orbits, and paranasal sinuses without contrast 3.CT of the cervical spine without contrast 4.CT of the thoracic spine without contrast 5.CT of the lumbar spine without contrast TECHNIQUE: CT of the head, cervical spine, and maxillofacial bones, orbits, and paranasal sinuses was performed without contrast according to standard protocol. Reformatted axial, sagittal, and coronal images of the thoracic and lumbar spine were obtained by the technologist from a concurrently performed body CT and sent to the workstation for review. CT dose reduction technique was used, including Automated Exposure Control. COMPARISON: No prior study is available for comparison at the time of this dictation. FINDINGS: Head: Sequela of TBI with multi-compartmental intracranial hemorrhages and hemorrhagic contusions, including small volume subarachnoid hemorrhage along the left cerebral convexity sulci and the posterior left temporal lobe, series 2, image 17) small volume hemorrhagic contusions, extra-axial hemorrhages, and small foci of gas are seen along the anterior right frontal orbital region, (series 3, image 22). Similar finding is also hemorrhagic contusions, extra-axial hemorrhages and foci of gas are noted along the anterior right temporal convexity. Additional small volume diffuse subarachnoid hemorrhages are suspected along the right cerebral convexity sulci. Small volume extra-axial hemorrhages are suspected along the anterior left frontal convexity, with associated small focus of extra-axial pneumocephalus and associated with hemorrhagic contusion. Small volume extra-axial, subdural hemorrhage along the left frontal convexity measuring approximately 3-4 mm, (series 6, image 23). Small volume subdural hemorrhage adjacent to the gyri recti. As mentioned above, there are multiple foci of pneumocephalus present in the bilateral frontal lobes adjacent to the lesser wing of the sphenoid. There is mild effacement of the frontal horn of the right lateral ventricle. The basal cisterns are slightly effaced. Borderline low-lying cerebellar tonsils with subtle crowding at the level of the foramen magnum but normal enoc tonsillar herniation. No midline shift is seen. The bryan-white matter differentiation otherwise appears normal. Periventricular white matter hypoattenuation is a nonspecific finding that may be indicative of chronic small vessel ischemic disease. There is atherosclerotic calcification of the carotid siphons. There is a mildly displaced fracture of the right frontal bone, involving the anterior and the lateral miranda of the right frontal sinus, extending along the right frontal bone and the squamous portion of the right temporal bone. There are multiple, nondisplaced or minimally displaced fractures of the floor of the anterior cranial fossa. There are multiple fractures of the central skull base involving the sphenoid bones. There are minimally displaced fractures of the posterior skull base, involving the left jugular foramen and adjacent temporal occipital bone. There are multiple comminuted fractures of the squamous portion of the right temporal bone, extending along the floor of the anterior cranial fossa and the roof of the right orbit. Maxillofacial: There are multiple craniofacial fractures as follows: *Foci of gas along the floor of the left anterior cranial fossa overlaying the left orbital roof suggestive of an occult fracture of the left orbital roof. *There are minimally displaced fractures of the left cribriform plate of ethmoid bone. *There is a minimally displaced fracture of the jhon nereida. *Suspected nondisplaced or minimally displaced fractures of the nasal bones. *There are multiple, mildly displaced fractures of the central skull base involving the miranda of the sphenoid sinus, worse on the right side with mildly displaced fractures, involving the miranda of the right sphenoid sinus and the right foramen ovale. There is fracture involvement of the right carotid canal. *There are mildly or moderately displaced fractures of the floor of the right anterior cranial fossa, involving the roof of the right orbit, extending near 0 right orbital apex. There is possibly a fracture of the anterior clinoid processes. Small amount of gas and fat stranding/small hemorrhage along the extraconal space along the roof of the right orbit. *There are fractures of the right sphenoid wing, involving the lateral wall of the right orbit and the miranda of the right optic canal *There are multiple fractures of the floor of the right middle cranial fossa. *There are multiple, comminuted, angulated, depressed fractures of the anterior wall of the right maxillary sinus. *There are comminuted, moderately displaced fractures of the posterolateral wall of the right maxillary sinus with displaced bone fragments inside the sinus and extensive hemorrhage and foci of gas within the right maxillary sinus. Extensive soft tissue swelling and lacerations overlaying the right cheek/right premaxillary region. *There are comminuted minimally displaced fractures of the medial wall of the right maxillary sinus. There are minimally displaced or nondisplaced fractures of the floor of the right maxillary sinus. There is chronic periosteal thickening of the right maxillary sinus. *There is a comminuted, mildly displaced blowout fracture of the right inferior orbital wall, involving the infraorbital foramen. Extra ocular fat stranding and extraocular gas are seen along the inferior portion of the right orbit. No extra ocular muscle entrapment. *Suspected fracture of the right lamina papyracea. *Acute fracture of the right zygomatic process extending to the temporal bone and frontal process of the temporal bone. *As mentioned above, there is a mildly displaced fracture through the greater wing of the sphenoid and temporal fossa with associated foci of pneumocephalus. *Mildly displaced fracture of the body of the sphenoid, as explained above. *There is a minimally displaced or nondisplaced fracture of the right temporal bone. Opacification and small foci of air of the right maxillary sinus, bilateral sphenoid sinuses, ethmoid air cells and right frontal sinus likely representing blood products. Small foci of air within the right foramen rotundum. There several foci of air and fat stranding of the right retrobulbar fat. There is a facial soft tissue swelling, involving the right face and the right right periorbital region as well as the right temporal region with associated subcutaneous emphysema. 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 The the globes, left optic nerve, left retrobulbar fat and extraocular muscles appear normal. The nasal septum is deviated to the left with a septal spur in contact with the medial wall of the left maxillary sinus. Findings dental caries, missing teeth, and prevertebral lucencies. The hard palate, mandible, and temporomandibular joints appear normal. The mastoid air cells are clear. Cervical spine: Straightening of the cervical lordosis. Trace anterolisthesis of C4 on C5. The alignment is otherwise maintained. The prevertebral soft tissue is normal in thickness. The bones are mildly osteopenic. Vertebral bodies are normal in height without evidence of acute fracture. Multiple foci of air are present within the vertebral bodies of C5, C6 . Other than middle atlantoaxial joint osteoarthritis, the craniocervical junction appears normal. There is moderate to severe multilevel degenerative disc disease. Borderline developmental cervical spinal canal stenosis and superimposed multilevel degenerative disc and joint disease resulting in moderate spinal canal stenosis at multiple levels.. There are varying degrees of moderate to severe multiple facet osteoarthritis. There are varying degrees of moderate to severe multilevel uncovertebral joint osteoarthritis with the same degree of neural foraminal stenosis at these levels. There is atherosclerotic calcification of the carotid bifurcations. There is paraseptal emphysema in the lung apices. Thoracic spine: There is mild dextrocurvature of the thoracic spine. The mineralization of the bones is normal. Vertebral bodies are normal in height without evidence of acute fracture. There is advanced multilevel degenerative disc disease most notable at T2-T3. Vacuum phenomenon is present at multiple levels in the lower thoracic spine. The high-grade central canal is patent. There are varying degrees of up to moderate facet osteoarthritis with the same degree of neural foraminal stenosis at these levels. Apical centrilobular emphysema is present. Lumbar spine: There is mild dextrocurvature of the lumbar spine. Minimal levocurvature of the lumbosacral junction. Grade 1 anterolisthesis of L4 on L5. Grade 1 anterolisthesis of L5 on S1. Bilateral L5 pars interarticulares defects. The bones are mildly osteopenic. Vertebral bodies are normal in height without evidence of acute fracture. There is up to severe multilevel degenerative disc disease with vacuum phenomenon at multiple levels. The central canal is moderately stenotic at with posterior syndesmophytes present at L2-L3 and L5-L6. There are varying degrees of up to moderate facet osteoarthritis with the same degree of neural foraminal stenosis at these levels. There is atherosclerotic calcification of the abdominal aorta and its branch vessels. Partially visualized right hip arthroplasty. Atherosclerosis of the abdominal aorta and bilateral common iliacs. Procedure Note Giovani Wynne MD - 12/11/2023 PROCEDURE: CT HEAD WO CONTRAST, CT FACIAL BONES WO CONTRAST, CT LUMBAR SPINE WO CONTRAST, CT THORACIC SPINE WO CONTRAST, CT CERVICAL SPINE WO CONTRAST, DATE/TIME OF EXAM: 12/10/2023 7:58 PM, LOCATION [facility] INDICATION: Trauma EXAMINATION: 1.Computed tomography (CT) of the head without contrast 2.CT of the maxillofacial bones, orbits, and paranasal sinuses without contrast 3.CT of the cervical spine without contrast 4.CT of the thoracic spine without contrast 5.CT of the lumbar spine without contrast TECHNIQUE: CT of the head, cervical spine, and maxillofacial bones,orbits, and paranasal sinuses was performed without contrast according tostandard protocol. Reformatted axial, sagittal, and coronal images of thethoracic and lumbar spine were obtained by the technologist from a concurrently performed body CT and sent to the workstation for review. CT dosereduction technique was used, including Automated Exposure Control. COMPARISON: No prior study is available for comparison at the time ofthis dictation. FINDINGS: Head: Sequela of TBI with multi-compartmental intracranial hemorrhages and hemorrhagic contusions, including small volume subarachnoid hemorrhage along the left cerebral convexity sulci and the posterior left temporal lobe, series 2, image 17) small volume hemorrhagic contusions,extra-axial hemorrhages, and small foci of gas are seen along the anterior right frontal orbital region, (series 3, image 22). Similar finding is also hemorrhagic contusions, extra-axial hemorrhages and foci of gas arenoted along the anterior right temporal convexity. Additional small volume diffuse subarachnoid hemorrhages are suspected along the right cerebral convexity sulci. Small volume extra-axial hemorrhages are suspectedalong the anterior left frontal convexity, with associated small focus of extra-axial pneumocephalus and associated with hemorrhagic contusion.Small volume extra-axial, subdural hemorrhage along the left frontal convexity measuring approximately 3-4 mm, (series 6, image 23). Small volumesubdural hemorrhage adjacent to the gyri recti. As mentioned above, there are multiple foci of pneumocephalus present in the bilateral frontal lobes adjacent to the lesser wing of the sphenoid. There is mild effacement of the frontal horn of the right lateral ventricle. The basal cisterns are slightly effaced. Borderline low-lying cerebellar tonsils with subtle crowding at the level of the foramenmagnum but normal enoc tonsillar herniation. No midline shift is seen. The bryan-white matter differentiation otherwise appears normal.Periventricular white matter hypoattenuation is a nonspecific finding that may be indicative of chronic small vessel ischemic disease. There is atherosclerotic calcification of the carotid siphons. There is a mildly displaced fracture of the right frontal bone, involving the anterior and the lateral miranda of the right frontal sinus, extending along the right frontal bone and the squamous portion of the right temporal bone. Thereare multiple, nondisplaced or minimally displaced fractures of the floor ofthe anterior cranial fossa. There are multiple fractures of the centralskull base involving the sphenoid bones. There are minimally displacedfractures of the posterior skull base, involving the left jugular foramen and adjacent temporal occipital bone. There are multiple comminutedfractures of the squamous portion of the right temporal bone, extending along the floor of the anterior cranial fossa and the roof of the right orbit. Maxillofacial: There are multiple craniofacial fractures as follows: *Foci of gas along the floor of the left anterior cranial fossaoverlaying the left orbital roof suggestive of an occult fracture of the leftorbital roof. *There are minimally displaced fractures of the left cribriform plate of ethmoid bone. *There is a minimally displaced fracture of the jhon nereida. *Suspected nondisplaced or minimally displaced fractures of the nasal bones. *There are multiple, mildly displaced fractures of the central skullbase involving the miranda of the sphenoid sinus, worse on the right side with mildly displaced fractures, involving the miranda of the right sphenoidsinus and the right foramen ovale. There is fracture involvement of the right carotid canal. *There are mildly or moderately displaced fractures of the floor of the right anterior cranial fossa, involving the roof of the right orbit, extending near 0 right orbital apex. There is possibly a fracture of the anterior clinoid processes. Small amount of gas and fat stranding/small hemorrhage along the extraconal space along the roof of the right orbit. *There are fractures of the right sphenoid wing, involving the lateralwall of the right orbit and the miranda of the right optic canal *There are multiple fractures of the floor of the right middle cranial fossa. *There are multiple, comminuted, angulated, depressed fractures of the anterior wall of the right maxillary sinus. *There are comminuted, moderately displaced fractures of theposterolateral wall of the right maxillary sinus with displaced bone fragments insidethe sinus and extensive hemorrhage and foci of gas within the rightmaxillary sinus. Extensive soft tissue swelling and lacerations overlaying theright cheek/right premaxillary region. *There are comminuted minimally displaced fractures of the medial wallof the right maxillary sinus. There are minimally displaced or nondisplaced fractures of the floor of the right maxillary sinus. There is chronic periosteal thickening of the right maxillary sinus. *There is a comminuted, mildly displaced blowout fracture of the right inferior orbital wall, involving the infraorbital foramen. Extra ocularfat stranding and extraocular gas are seen along the inferior portion of the right orbit. No extra ocular muscle entrapment. *Suspected fracture of the right lamina papyracea. *Acute fracture of the right zygomatic process extending to the temporal bone and frontal process of the temporal bone. *As mentioned above, there is a mildly displaced fracture through the greater wing of the sphenoid and temporal fossa with associated foci of pneumocephalus. *Mildly displaced fracture of the body of the sphenoid, as explainedabove. *There is a minimally displaced or nondisplaced fracture of the right temporal bone. Opacification and small foci of air of the right maxillary sinus,bilateral sphenoid sinuses, ethmoid air cells and right frontal sinus likely representing blood products. Small foci of air within the right foramen rotundum. There several foci of air and fat stranding of the right retrobulbar fat. There is a facial soft tissue swelling, involving the right face and the right right periorbital region as well as the right temporal region with associated subcutaneous emphysema. 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 The the globes, left optic nerve, left retrobulbar fat and extraocular muscles appear normal. The nasal septum is deviated to the left with a septal spur in contact with the medial wall of the left maxillary sinus. Findings dental caries, missing teeth, and prevertebral lucencies. Thehard palate, mandible, and temporomandibular joints appear normal. Themastoid air cells are clear. Cervical spine: Straightening of the cervical lordosis. Trace anterolisthesis of C4 onC5. The alignment is otherwise maintained. The prevertebral soft tissue is normal in thickness. The bones are mildly osteopenic. Vertebral bodiesare normal in height without evidence of acute fracture. Multiple foci ofair are present within the vertebral bodies of C5, C6 . Other than middle atlantoaxial joint osteoarthritis, the craniocervical junction appears normal. There is moderate to severe multilevel degenerative discdisease. Borderline developmental cervical spinal canal stenosis and superimposed multilevel degenerative disc and joint disease resulting in moderatespinal canal stenosis at multiple levels.. There are varying degrees ofmoderate to severe multiple facet osteoarthritis. There are varying degrees of moderate to severe multilevel uncovertebral joint osteoarthritis withthe same degree of neural foraminal stenosis at these levels. There is atherosclerotic calcification of the carotid bifurcations.There is paraseptal emphysema in the lung apices. Thoracic spine: There is mild dextrocurvature of the thoracic spine. The mineralizationof the bones is normal. Vertebral bodies are normal in height withoutevidence of acute fracture. There is advanced multilevel degenerative discdisease most notable at T2-T3. Vacuum phenomenon is present at multiple levelsin the lower thoracic spine. The high-grade central canal is patent. Thereare varying degrees of up to moderate facet osteoarthritis with the samedegree of neural foraminal stenosis at these levels. Apical centrilobular emphysema is present. Lumbar spine: There is mild dextrocurvature of the lumbar spine. Minimal levocurvatureof the lumbosacral junction. Grade 1 anterolisthesis of L4 on L5. Grade 1 anterolisthesis of L5 on S1. Bilateral L5 pars interarticulares defects. The bones are mildly osteopenic. Vertebral bodies are normal in height without evidence of acute fracture. There is up to severe multilevel degenerative disc disease with vacuum phenomenon at multiple levels. The central canal is moderately stenotic at with posterior syndesmophytes present at L2-L3 and L5-L6. There are varying degrees of up to moderate facet osteoarthritis with the same degree of neural foraminal stenosisat these levels. There is atherosclerotic calcification of the abdominal aorta and its branch vessels. Partially visualized right hip arthroplasty. Atherosclerosis of the abdominal aorta and bilateral common iliacs. 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 No midline shift is identified. 2.Multiple cranial and the skull base fractures as detailed above. 3.Extensive facial bone fractures, including right zygomaticomaxillary complex spectrum, and multiple right orbital wall fractures with right inferior orbital wall blowout fracture, involving the right infraorbital foramen as well as suspected right temporal bone fracture. A dedicatedCT of the temporal bones is recommended for further evaluation. 4.Multilevel changes as described above in the cervical, thoracic and lumbar spine without acute findings. These findings were discussed in detail with the patient's careprovider, Drs. Giles and Marck by Dr. Ferrari via telephone at 12/10/2023 8:50 PM with readback comprehension and verification. The report is dictated by Jeaneth Frerari MD (vice president network) I, Giovani Wynne MD have personally reviewed and interpretedthis examination/study. > Interpreting Provider: Giovani Wynne MD on 12/11/2023 12:03 AM Francois Osborn MD CT ORDERABLES * CT THORACIC SPINE WO CONTRAST - T/L-spine trauma, spine fracture (12/10/2023 7:56 PM CDT) Anatomical Region Laterality Modality Spine Computed Tomogra phy 12/10/2023 8:01 PM CDT Impressions 12/11/2023 12:03 AM CDT IMPRESSION: 1.Sequela of TBI with multi-compartmental intracranial [...] detail with the patient's care provider, Drs. ??Chan and Marck by Dr. Ferrari via telephone at 12/10/2023 8:50 PM with readback comprehension and verification. ?? The report is dictated by Jeaneth Ferrari MD (vice president network) I, Giovani Wynne MD have personally reviewed and interpreted this examination/study. > Interpreting Provider: Giovani Wynne MD on 12/11/2023 12:03 AM Narrative 12/11/2023 12:03 AM CDT PROCEDURE: ??CT HEAD WO CONTRAST, CT FACIAL BONES WO CONTRAST, CT LUMBAR SPINE WO CONTRAST, CT THORACIC SPINE WO CONTRAST, CT CERVICAL SPINE WO CONTRAST, DATE/TIME OF EXAM: ??12/10/2023 7:58 PM, LOCATION ??[facility] INDICATION: Trauma EXAMINATION: 1.Computed tomography (CT) of the head without contrast 2.CT of the maxillofacial bones, orbits, and paranasal sinuses without contrast 3.CT of the cervical spine without contrast 4.CT of the thoracic spine without contrast 5.CT of the lumbar spine without contrast TECHNIQUE: CT of the head, cervical spine, and maxillofacial bones, orbits, and paranasal sinuses was performed without contrast according to standard protocol. Reformatted axial, sagittal, and coronal images of the thoracic and lumbar spine were obtained by the technologist from a concurrently performed body CT and sent to the workstation for review. CT dose reduction technique was used, including Automated Exposure Control. COMPARISON: No prior study is available for comparison at the time of this dictation. FINDINGS: Head: Sequela of TBI with multi-compartmental intracranial hemorrhages and hemorrhagic contusions, including small volume subarachnoid hemorrhage along the left cerebral convexity sulci and the posterior left temporal lobe, series 2, image 17) small volume hemorrhagic contusions, extra-axial hemorrhages, and small foci of gas are seen along the anterior right frontal orbital region, (series 3, image 22). Similar finding is also hemorrhagic contusions, extra-axial hemorrhages and foci of gas are noted along the anterior right temporal convexity. Additional small volume diffuse subarachnoid hemorrhages are suspected along the right cerebral convexity sulci. Small volume extra-axial hemorrhages are suspected along the anterior left frontal convexity, with associated small focus of extra-axial pneumocephalus and associated with hemorrhagic contusion. Small volume extra-axial, subdural hemorrhage along the left frontal convexity measuring approximately 3-4 mm, (series 6, image 23). Small volume subdural hemorrhage adjacent to the gyri recti. As mentioned above, there are multiple foci of pneumocephalus present in the bilateral frontal lobes adjacent to the lesser wing of the sphenoid. There is mild effacement of the frontal horn of the right lateral ventricle. The basal cisterns are slightly effaced. Borderline low-lying cerebellar tonsils with subtle crowding at the level of the foramen magnum but normal enoc tonsillar herniation. No midline shift is seen. The bryan-white matter differentiation otherwise appears normal. Periventricular white matter hypoattenuation is a nonspecific finding that may be indicative of chronic small vessel ischemic disease. There is atherosclerotic calcification of the carotid siphons. There is a mildly displaced fracture of the right frontal bone, involving the anterior and the lateral miranda of the right frontal sinus, extending along the right frontal bone and the squamous portion of the right temporal bone. There are multiple, nondisplaced or minimally displaced fractures of the floor of the anterior cranial fossa. There are multiple fractures of the central skull base involving the sphenoid bones. There are minimally displaced fractures of the posterior skull base, involving the left jugular foramen and adjacent temporal occipital bone. There are multiple comminuted fractures of the squamous portion of the right temporal bone, extending along the floor of the anterior cranial fossa and the roof of the right orbit. Maxillofacial: There are multiple craniofacial fractures as follows: *Foci of gas along the floor of the left anterior cranial fossa overlaying the left orbital roof suggestive of an occult fracture of the left orbital roof. *There are minimally displaced fractures of the left cribriform plate of ethmoid bone. *There is a minimally displaced fracture of the jhon nereida. *Suspected nondisplaced or minimally displaced fractures of the nasal bones. *There are multiple, mildly displaced fractures of the central skull base involving the miranda of the sphenoid sinus, worse on the right side with mildly displaced fractures, involving the miranda of the right sphenoid sinus and the right foramen ovale. There is fracture involvement of the right carotid canal. *There are mildly or moderately displaced fractures of the floor of the right anterior cranial fossa, involving the roof of the right orbit, extending near 0 right orbital apex. There is possibly a fracture of the anterior clinoid processes. Small amount of gas and fat stranding/small hemorrhage along the extraconal space along the roof of the right orbit. *There are fractures of the right sphenoid wing, involving the lateral wall of the right orbit and the miranda of the right optic canal *There are multiple fractures of the floor of the right middle cranial fossa. *There are multiple, comminuted, angulated, depressed fractures of the anterior wall of the right maxillary sinus. *There are comminuted, moderately displaced fractures of the posterolateral wall of the right maxillary sinus with displaced bone fragments inside the sinus and extensive hemorrhage and foci of gas within the right maxillary sinus. Extensive soft tissue swelling and lacerations overlaying the right cheek/right premaxillary region. *There are comminuted minimally displaced fractures of the medial wall of the right maxillary sinus. There are minimally displaced or nondisplaced fractures of the floor of the right maxillary sinus. There is chronic periosteal thickening of the right maxillary sinus. *There is a comminuted, mildly displaced blowout fracture of the right inferior orbital wall, involving the infraorbital foramen. Extra ocular fat stranding and extraocular gas are seen along the inferior portion of the right orbit. No extra ocular muscle entrapment. *Suspected fracture of the right lamina papyracea. *Acute fracture of the right zygomatic process extending to the temporal bone and frontal process of the temporal bone. *As mentioned above, there is a mildly displaced fracture through the greater wing of the sphenoid and temporal fossa with associated foci of pneumocephalus. *Mildly displaced fracture of the body of the sphenoid, as explained above. *There is a minimally displaced or nondisplaced fracture of the right temporal bone. Opacification and small foci of air of the right maxillary sinus, bilateral sphenoid sinuses, ethmoid air cells and right frontal sinus likely representing blood products. Small foci of air within the right foramen rotundum. There several foci of air and fat stranding of the right retrobulbar fat. There is a facial soft tissue swelling, involving the right face and the right right periorbital region as well as the right temporal region with associated subcutaneous emphysema. 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 The the globes, left optic nerve, left retrobulbar fat and extraocular muscles appear normal. The nasal septum is deviated to the left with a septal spur in contact with the medial wall of the left maxillary sinus. Findings dental caries, missing teeth, and prevertebral lucencies. The hard palate, mandible, and temporomandibular joints appear normal. The mastoid air cells are clear. Cervical spine: Straightening of the cervical lordosis. Trace anterolisthesis of C4 on C5. The alignment is otherwise maintained. The prevertebral soft tissue is normal in thickness. The bones are mildly osteopenic. Vertebral bodies are normal in height without evidence of acute fracture. Multiple foci of air are present within the vertebral bodies of C5, C6 . Other than middle atlantoaxial joint osteoarthritis, the craniocervical junction appears normal. There is moderate to severe multilevel degenerative disc disease. Borderline developmental cervical spinal canal stenosis and superimposed multilevel degenerative disc and joint disease resulting in moderate spinal canal stenosis at multiple levels.. There are varying degrees of moderate to severe multiple facet osteoarthritis. There are varying degrees of moderate to severe multilevel uncovertebral joint osteoarthritis with the same degree of neural foraminal stenosis at these levels. There is atherosclerotic calcification of the carotid bifurcations. There is paraseptal emphysema in the lung apices. Thoracic spine: There is mild dextrocurvature of the thoracic spine. The mineralization of the bones is normal. Vertebral bodies are normal in height without evidence of acute fracture. There is advanced multilevel degenerative disc disease most notable at T2-T3. Vacuum phenomenon is present at multiple levels in the lower thoracic spine. The high-grade central canal is patent. There are varying degrees of up to moderate facet osteoarthritis with the same degree of neural foraminal stenosis at these levels. Apical centrilobular emphysema is present. Lumbar spine: There is mild dextrocurvature of the lumbar spine. Minimal levocurvature of the lumbosacral junction. Grade 1 anterolisthesis of L4 on L5. Grade 1 anterolisthesis of L5 on S1. Bilateral L5 pars interarticulares defects. The bones are mildly osteopenic. Vertebral bodies are normal in height without evidence of acute fracture. There is up to severe multilevel degenerative disc disease with vacuum phenomenon at multiple levels. The central canal is moderately stenotic at with posterior syndesmophytes present at L2-L3 and L5-L6. There are varying degrees of up to moderate facet osteoarthritis with the same degree of neural foraminal stenosis at these levels. There is atherosclerotic calcification of the abdominal aorta and its branch vessels. Partially visualized right hip arthroplasty. Atherosclerosis of the abdominal aorta and bilateral common iliacs. Procedure Note Giovani Wynne MD - 12/11/2023 PROCEDURE: CT HEAD WO CONTRAST, CT FACIAL BONES WO CONTRAST, CT LUMBAR SPINE WO CONTRAST, CT THORACIC SPINE WO CONTRAST, CT CERVICAL SPINE WO CONTRAST, DATE/TIME OF EXAM: 12/10/2023 7:58 PM, LOCATION [facility] INDICATION: Trauma EXAMINATION: 1.Computed tomography (CT) of the head without contrast 2.CT of the maxillofacial bones, orbits, and paranasal sinuses without contrast 3.CT of the cervical spine without contrast 4.CT of the thoracic spine without contrast 5.CT of the lumbar spine without contrast TECHNIQUE: CT of the head, cervical spine, and maxillofacial bones,orbits, and paranasal sinuses was performed without contrast according tostandard protocol. Reformatted axial, sagittal, and coronal images of thethoracic and lumbar spine were obtained by the technologist from a concurrently performed body CT and sent to the workstation for review. CT dosereduction technique was used, including Automated Exposure Control. COMPARISON: No prior study is available for comparison at the time ofthis dictation. FINDINGS: Head: Sequela of TBI with multi-compartmental intracranial hemorrhages and hemorrhagic contusions, including small volume subarachnoid hemorrhage along the left cerebral convexity sulci and the posterior left temporal lobe, series 2, image 17) small volume hemorrhagic contusions,extra-axial hemorrhages, and small foci of gas are seen along the anterior right frontal orbital region, (series 3, image 22). Similar finding is also hemorrhagic contusions, extra-axial hemorrhages and foci of gas arenoted along the anterior right temporal convexity. Additional small volume diffuse subarachnoid hemorrhages are suspected along the right cerebral convexity sulci. Small volume extra-axial hemorrhages are suspectedalong the anterior left frontal convexity, with associated small focus of extra-axial pneumocephalus and associated with hemorrhagic contusion.Small volume extra-axial, subdural hemorrhage along the left frontal convexity measuring approximately 3-4 mm, (series 6, image 23). Small volumesubdural hemorrhage adjacent to the gyri recti. As mentioned above, there are multiple foci of pneumocephalus present in the bilateral frontal lobes adjacent to the lesser wing of the sphenoid. There is mild effacement of the frontal horn of the right lateral ventricle. The basal cisterns are slightly effaced. Borderline low-lying cerebellar tonsils with subtle crowding at the level of the foramenmagnum but normal enoc tonsillar herniation. No midline shift is seen. The bryan-white matter differentiation otherwise appears normal.Periventricular white matter hypoattenuation is a nonspecific finding that may be indicative of chronic small vessel ischemic disease. There is atherosclerotic calcification of the carotid siphons. There is a mildly displaced fracture of the right frontal bone, involving the anterior and the lateral miranda of the right frontal sinus, extending along the right frontal bone and the squamous portion of the right temporal bone. Thereare multiple, nondisplaced or minimally displaced fractures of the floor ofthe anterior cranial fossa. There are multiple fractures of the centralskull base involving the sphenoid bones. There are minimally displacedfractures of the posterior skull base, involving the left jugular foramen and adjacent temporal occipital bone. There are multiple comminutedfractures of the squamous portion of the right temporal bone, extending along the floor of the anterior cranial fossa and the roof of the right orbit. Maxillofacial: There are multiple craniofacial fractures as follows: *Foci of gas along the floor of the left anterior cranial fossaoverlaying the left orbital roof suggestive of an occult fracture of the leftorbital roof. *There are minimally displaced fractures of the left cribriform plate of ethmoid bone. *There is a minimally displaced fracture of the jhon nereida. *Suspected nondisplaced or minimally displaced fractures of the nasal bones. *There are multiple, mildly displaced fractures of the central skullbase involving the miranda of the sphenoid sinus, worse on the right side with mildly displaced fractures, involving the miranda of the right sphenoidsinus and the right foramen ovale. There is fracture involvement of the right carotid canal. *There are mildly or moderately displaced fractures of the floor of the right anterior cranial fossa, involving the roof of the right orbit, extending near 0 right orbital apex. There is possibly a fracture of the anterior clinoid processes. Small amount of gas and fat stranding/small hemorrhage along the extraconal space along the roof of the right orbit. *There are fractures of the right sphenoid wing, involving the lateralwall of the right orbit and the miranda of the right optic canal *There are multiple fractures of the floor of the right middle cranial fossa. *There are multiple, comminuted, angulated, depressed fractures of the anterior wall of the right maxillary sinus. *There are comminuted, moderately displaced fractures of theposterolateral wall of the right maxillary sinus with displaced bone fragments insidethe sinus and extensive hemorrhage and foci of gas within the rightmaxillary sinus. Extensive soft tissue swelling and lacerations overlaying theright cheek/right premaxillary region. *There are comminuted minimally displaced fractures of the medial wallof the right maxillary sinus. There are minimally displaced or nondisplaced fractures of the floor of the right maxillary sinus. There is chronic periosteal thickening of the right maxillary sinus. *There is a comminuted, mildly displaced blowout fracture of the right inferior orbital wall, involving the infraorbital foramen. Extra ocularfat stranding and extraocular gas are seen along the inferior portion of the right orbit. No extra ocular muscle entrapment. *Suspected fracture of the right lamina papyracea. *Acute fracture of the right zygomatic process extending to the temporal bone and frontal process of the temporal bone. *As mentioned above, there is a mildly displaced fracture through the greater wing of the sphenoid and temporal fossa with associated foci of pneumocephalus. *Mildly displaced fracture of the body of the sphenoid, as explainedabove. *There is a minimally displaced or nondisplaced fracture of the right temporal bone. Opacification and small foci of air of the right maxillary sinus,bilateral sphenoid sinuses, ethmoid air cells and right frontal sinus likely representing blood products. Small foci of air within the right foramen rotundum. There several foci of air and fat stranding of the right retrobulbar fat. There is a facial soft tissue swelling, involving the right face and the right right periorbital region as well as the right temporal region with associated subcutaneous emphysema. 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 The the globes, left optic nerve, left retrobulbar fat and extraocular muscles appear normal. The nasal septum is deviated to the left with a septal spur in contact with the medial wall of the left maxillary sinus. Findings dental caries, missing teeth, and prevertebral lucencies. Thehard palate, mandible, and temporomandibular joints appear normal. Themastoid air cells are clear. Cervical spine: Straightening of the cervical lordosis. Trace anterolisthesis of C4 onC5. The alignment is otherwise maintained. The prevertebral soft tissue is normal in thickness. The bones are mildly osteopenic. Vertebral bodiesare normal in height without evidence of acute fracture. Multiple foci ofair are present within the vertebral bodies of C5, C6 . Other than middle atlantoaxial joint osteoarthritis, the craniocervical junction appears normal. There is moderate to severe multilevel degenerative discdisease. Borderline developmental cervical spinal canal stenosis and superimposed multilevel degenerative disc and joint disease resulting in moderatespinal canal stenosis at multiple levels.. There are varying degrees ofmoderate to severe multiple facet osteoarthritis. There are varying degrees of moderate to severe multilevel uncovertebral joint osteoarthritis withthe same degree of neural foraminal stenosis at these levels. There is atherosclerotic calcification of the carotid bifurcations.There is paraseptal emphysema in the lung apices. Thoracic spine: There is mild dextrocurvature of the thoracic spine. The mineralizationof the bones is normal. Vertebral bodies are normal in height withoutevidence of acute fracture. There is advanced multilevel degenerative discdisease most notable at T2-T3. Vacuum phenomenon is present at multiple levelsin the lower thoracic spine. The high-grade central canal is patent. Thereare varying degrees of up to moderate facet osteoarthritis with the samedegree of neural foraminal stenosis at these levels. Apical centrilobular emphysema is present. Lumbar spine: There is mild dextrocurvature of the lumbar spine. Minimal levocurvatureof the lumbosacral junction. Grade 1 anterolisthesis of L4 on L5. Grade 1 anterolisthesis of L5 on S1. Bilateral L5 pars interarticulares defects. The bones are mildly osteopenic. Vertebral bodies are normal in height without evidence of acute fracture. There is up to severe multilevel degenerative disc disease with vacuum phenomenon at multiple levels. The central canal is moderately stenotic at with posterior syndesmophytes present at L2-L3 and L5-L6. There are varying degrees of up to moderate facet osteoarthritis with the same degree of neural foraminal stenosisat these levels. There is atherosclerotic calcification of the abdominal aorta and its branch vessels. Partially visualized right hip arthroplasty. Atherosclerosis of the abdominal aorta and bilateral common iliacs. 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 No midline shift is identified. 2.Multiple cranial and the skull base fractures as detailed above. 3.Extensive facial bone fractures, including right zygomaticomaxillary complex spectrum, and multiple right orbital wall fractures with right inferior orbital wall blowout fracture, involving the right infraorbital foramen as well as suspected right temporal bone fracture. A dedicatedCT of the temporal bones is recommended for further evaluation. 4.Multilevel changes as described above in the cervical, thoracic and lumbar spine without acute findings. These findings were discussed in detail with the patient's careprovider, Drs. Giles and Marck by Dr. Ferrari via telephone at 12/10/2023 8:50 PM with readback comprehension and verification. The report is dictated by Jeaneth Ferrari MD (vice president network) I, Giovani Wynne MD have personally reviewed and interpretedthis examination/study. > Interpreting Provider: Giovani Wynne MD on 12/11/2023 12:03 AM Francois Osborn MD CT ORDERABLES * CT CERVICAL SPINE WO CONTRAST - C-Spine Trauma, Spine fracture (12/10/2023 7:56 PM CDT) Anatomical Region Laterality Modality Spine Computed Tomogra phy 12/10/2023 8:01 PM CDT Impressions 12/11/2023 12:03 AM CDT IMPRESSION: 1.Sequela of TBI with multi-compartmental intracranial [...] detail with the patient's care provider, Drs. ??Chan and Marck by Dr. Ferrari via telephone at 12/10/2023 8:50 PM with readback comprehension and verification. ?? The report is dictated by Jeaneth Ferrari MD (vice president network) I, Giovani Wynne MD have personally reviewed and interpreted this examination/study. > Interpreting Provider: Giovani Wynne MD on 12/11/2023 12:03 AM Narrative 12/11/2023 12:03 AM CDT PROCEDURE: ??CT HEAD WO CONTRAST, CT FACIAL BONES WO CONTRAST, CT LUMBAR SPINE WO CONTRAST, CT THORACIC SPINE WO CONTRAST, CT CERVICAL SPINE WO CONTRAST, DATE/TIME OF EXAM: ??12/10/2023 7:58 PM, LOCATION ??[facility] INDICATION: Trauma EXAMINATION: 1.Computed tomography (CT) of the head without contrast 2.CT of the maxillofacial bones, orbits, and paranasal sinuses without contrast 3.CT of the cervical spine without contrast 4.CT of the thoracic spine without contrast 5.CT of the lumbar spine without contrast TECHNIQUE: CT of the head, cervical spine, and maxillofacial bones, orbits, and paranasal sinuses was performed without contrast according to standard protocol. Reformatted axial, sagittal, and coronal images of the thoracic and lumbar spine were obtained by the technologist from a concurrently performed body CT and sent to the workstation for review. CT dose reduction technique was used, including Automated Exposure Control. COMPARISON: No prior study is available for comparison at the time of this dictation. FINDINGS: Head: Sequela of TBI with multi-compartmental intracranial hemorrhages and hemorrhagic contusions, including small volume subarachnoid hemorrhage along the left cerebral convexity sulci and the posterior left temporal lobe, series 2, image 17) small volume hemorrhagic contusions, extra-axial hemorrhages, and small foci of gas are seen along the anterior right frontal orbital region, (series 3, image 22). Similar finding is also hemorrhagic contusions, extra-axial hemorrhages and foci of gas are noted along the anterior right temporal convexity. Additional small volume diffuse subarachnoid hemorrhages are suspected along the right cerebral convexity sulci. Small volume extra-axial hemorrhages are suspected along the anterior left frontal convexity, with associated small focus of extra-axial pneumocephalus and associated with hemorrhagic contusion. Small volume extra-axial, subdural hemorrhage along the left frontal convexity measuring approximately 3-4 mm, (series 6, image 23). Small volume subdural hemorrhage adjacent to the gyri recti. As mentioned above, there are multiple foci of pneumocephalus present in the bilateral frontal lobes adjacent to the lesser wing of the sphenoid. There is mild effacement of the frontal horn of the right lateral ventricle. The basal cisterns are slightly effaced. Borderline low-lying cerebellar tonsils with subtle crowding at the level of the foramen magnum but normal enoc tonsillar herniation. No midline shift is seen. The bryan-white matter differentiation otherwise appears normal. Periventricular white matter hypoattenuation is a nonspecific finding that may be indicative of chronic small vessel ischemic disease. There is atherosclerotic calcification of the carotid siphons. There is a mildly displaced fracture of the right frontal bone, involving the anterior and the lateral miranda of the right frontal sinus, extending along the right frontal bone and the squamous portion of the right temporal bone. There are multiple, nondisplaced or minimally displaced fractures of the floor of the anterior cranial fossa. There are multiple fractures of the central skull base involving the sphenoid bones. There are minimally displaced fractures of the posterior skull base, involving the left jugular foramen and adjacent temporal occipital bone. There are multiple comminuted fractures of the squamous portion of the right temporal bone, extending along the floor of the anterior cranial fossa and the roof of the right orbit. Maxillofacial: There are multiple craniofacial fractures as follows: *Foci of gas along the floor of the left anterior cranial fossa overlaying the left orbital roof suggestive of an occult fracture of the left orbital roof. *There are minimally displaced fractures of the left cribriform plate of ethmoid bone. *There is a minimally displaced fracture of the jhon nereida. *Suspected nondisplaced or minimally displaced fractures of the nasal bones. *There are multiple, mildly displaced fractures of the central skull base involving the miranda of the sphenoid sinus, worse on the right side with mildly displaced fractures, involving the miranda of the right sphenoid sinus and the right foramen ovale. There is fracture involvement of the right carotid canal. *There are mildly or moderately displaced fractures of the floor of the right anterior cranial fossa, involving the roof of the right orbit, extending near 0 right orbital apex. There is possibly a fracture of the anterior clinoid processes. Small amount of gas and fat stranding/small hemorrhage along the extraconal space along the roof of the right orbit. *There are fractures of the right sphenoid wing, involving the lateral wall of the right orbit and the miranda of the right optic canal *There are multiple fractures of the floor of the right middle cranial fossa. *There are multiple, comminuted, angulated, depressed fractures of the anterior wall of the right maxillary sinus. *There are comminuted, moderately displaced fractures of the posterolateral wall of the right maxillary sinus with displaced bone fragments inside the sinus and extensive hemorrhage and foci of gas within the right maxillary sinus. Extensive soft tissue swelling and lacerations overlaying the right cheek/right premaxillary region. *There are comminuted minimally displaced fractures of the medial wall of the right maxillary sinus. There are minimally displaced or nondisplaced fractures of the floor of the right maxillary sinus. There is chronic periosteal thickening of the right maxillary sinus. *There is a comminuted, mildly displaced blowout fracture of the right inferior orbital wall, involving the infraorbital foramen. Extra ocular fat stranding and extraocular gas are seen along the inferior portion of the right orbit. No extra ocular muscle entrapment. *Suspected fracture of the right lamina papyracea. *Acute fracture of the right zygomatic process extending to the temporal bone and frontal process of the temporal bone. *As mentioned above, there is a mildly displaced fracture through the greater wing of the sphenoid and temporal fossa with associated foci of pneumocephalus. *Mildly displaced fracture of the body of the sphenoid, as explained above. *There is a minimally displaced or nondisplaced fracture of the right temporal bone. Opacification and small foci of air of the right maxillary sinus, bilateral sphenoid sinuses, ethmoid air cells and right frontal sinus likely representing blood products. Small foci of air within the right foramen rotundum. There several foci of air and fat stranding of the right retrobulbar fat. There is a facial soft tissue swelling, involving the right face and the right right periorbital region as well as the right temporal region with associated subcutaneous emphysema. 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 The the globes, left optic nerve, left retrobulbar fat and extraocular muscles appear normal. The nasal septum is deviated to the left with a septal spur in contact with the medial wall of the left maxillary sinus. Findings dental caries, missing teeth, and prevertebral lucencies. The hard palate, mandible, and temporomandibular joints appear normal. The mastoid air cells are clear. Cervical spine: Straightening of the cervical lordosis. Trace anterolisthesis of C4 on C5. The alignment is otherwise maintained. The prevertebral soft tissue is normal in thickness. The bones are mildly osteopenic. Vertebral bodies are normal in height without evidence of acute fracture. Multiple foci of air are present within the vertebral bodies of C5, C6 . Other than middle atlantoaxial joint osteoarthritis, the craniocervical junction appears normal. There is moderate to severe multilevel degenerative disc disease. Borderline developmental cervical spinal canal stenosis and superimposed multilevel degenerative disc and joint disease resulting in moderate spinal canal stenosis at multiple levels.. There are varying degrees of moderate to severe multiple facet osteoarthritis. There are varying degrees of moderate to severe multilevel uncovertebral joint osteoarthritis with the same degree of neural foraminal stenosis at these levels. There is atherosclerotic calcification of the carotid bifurcations. There is paraseptal emphysema in the lung apices. Thoracic spine: There is mild dextrocurvature of the thoracic spine. The mineralization of the bones is normal. Vertebral bodies are normal in height without evidence of acute fracture. There is advanced multilevel degenerative disc disease most notable at T2-T3. Vacuum phenomenon is present at multiple levels in the lower thoracic spine. The high-grade central canal is patent. There are varying degrees of up to moderate facet osteoarthritis with the same degree of neural foraminal stenosis at these levels. Apical centrilobular emphysema is present. Lumbar spine: There is mild dextrocurvature of the lumbar spine. Minimal levocurvature of the lumbosacral junction. Grade 1 anterolisthesis of L4 on L5. Grade 1 anterolisthesis of L5 on S1. Bilateral L5 pars interarticulares defects. The bones are mildly osteopenic. Vertebral bodies are normal in height without evidence of acute fracture. There is up to severe multilevel degenerative disc disease with vacuum phenomenon at multiple levels. The central canal is moderately stenotic at with posterior syndesmophytes present at L2-L3 and L5-L6. There are varying degrees of up to moderate facet osteoarthritis with the same degree of neural foraminal stenosis at these levels. There is atherosclerotic calcification of the abdominal aorta and its branch vessels. Partially visualized right hip arthroplasty. Atherosclerosis of the abdominal aorta and bilateral common iliacs. Procedure Note Giovani Wynne MD - 12/11/2023 PROCEDURE: CT HEAD WO CONTRAST, CT FACIAL BONES WO CONTRAST, CT LUMBAR SPINE WO CONTRAST, CT THORACIC SPINE WO CONTRAST, CT CERVICAL SPINE WO CONTRAST, DATE/TIME OF EXAM: 12/10/2023 7:58 PM, LOCATION [facility] INDICATION: Trauma EXAMINATION: 1.Computed tomography (CT) of the head without contrast 2.CT of the maxillofacial bones, orbits, and paranasal sinuses without contrast 3.CT of the cervical spine without contrast 4.CT of the thoracic spine without contrast 5.CT of the lumbar spine without contrast TECHNIQUE: CT of the head, cervical spine, and maxillofacial bones,orbits, and paranasal sinuses was performed without contrast according tostandard protocol. Reformatted axial, sagittal, and coronal images of thethoracic and lumbar spine were obtained by the technologist from a concurrently performed body CT and sent to the workstation for review. CT dosereduction technique was used, including Automated Exposure Control. COMPARISON: No prior study is available for comparison at the time ofthis dictation. FINDINGS: Head: Sequela of TBI with multi-compartmental intracranial hemorrhages and hemorrhagic contusions, including small volume subarachnoid hemorrhage along the left cerebral convexity sulci and the posterior left temporal lobe, series 2, image 17) small volume hemorrhagic contusions,extra-axial hemorrhages, and small foci of gas are seen along the anterior right frontal orbital region, (series 3, image 22). Similar finding is also hemorrhagic contusions, extra-axial hemorrhages and foci of gas arenoted along the anterior right temporal convexity. Additional small volume diffuse subarachnoid hemorrhages are suspected along the right cerebral convexity sulci. Small volume extra-axial hemorrhages are suspectedalong the anterior left frontal convexity, with associated small focus of extra-axial pneumocephalus and associated with hemorrhagic contusion.Small volume extra-axial, subdural hemorrhage along the left frontal convexity measuring approximately 3-4 mm, (series 6, image 23). Small volumesubdural hemorrhage adjacent to the gyri recti. As mentioned above, there are multiple foci of pneumocephalus present in the bilateral frontal lobes adjacent to the lesser wing of the sphenoid. There is mild effacement of the frontal horn of the right lateral ventricle. The basal cisterns are slightly effaced. Borderline low-lying cerebellar tonsils with subtle crowding at the level of the foramenmagnum but normal enoc tonsillar herniation. No midline shift is seen. The bryan-white matter differentiation otherwise appears normal.Periventricular white matter hypoattenuation is a nonspecific finding that may be indicative of chronic small vessel ischemic disease. There is atherosclerotic calcification of the carotid siphons. There is a mildly displaced fracture of the right frontal bone, involving the anterior and the lateral miranda of the right frontal sinus, extending along the right frontal bone and the squamous portion of the right temporal bone. Thereare multiple, nondisplaced or minimally displaced fractures of the floor ofthe anterior cranial fossa. There are multiple fractures of the centralskull base involving the sphenoid bones. There are minimally displacedfractures of the posterior skull base, involving the left jugular foramen and adjacent temporal occipital bone. There are multiple comminutedfractures of the squamous portion of the right temporal bone, extending along the floor of the anterior cranial fossa and the roof of the right orbit. Maxillofacial: There are multiple craniofacial fractures as follows: *Foci of gas along the floor of the left anterior cranial fossaoverlaying the left orbital roof suggestive of an occult fracture of the leftorbital roof. *There are minimally displaced fractures of the left cribriform plate of ethmoid bone. *There is a minimally displaced fracture of the jhon nereida. *Suspected nondisplaced or minimally displaced fractures of the nasal bones. *There are multiple, mildly displaced fractures of the central skullbase involving the miranda of the sphenoid sinus, worse on the right side with mildly displaced fractures, involving the miranda of the right sphenoidsinus and the right foramen ovale. There is fracture involvement of the right carotid canal. *There are mildly or moderately displaced fractures of the floor of the right anterior cranial fossa, involving the roof of the right orbit, extending near 0 right orbital apex. There is possibly a fracture of the anterior clinoid processes. Small amount of gas and fat stranding/small hemorrhage along the extraconal space along the roof of the right orbit. *There are fractures of the right sphenoid wing, involving the lateralwall of the right orbit and the miranda of the right optic canal *There are multiple fractures of the floor of the right middle cranial fossa. *There are multiple, comminuted, angulated, depressed fractures of the anterior wall of the right maxillary sinus. *There are comminuted, moderately displaced fractures of theposterolateral wall of the right maxillary sinus with displaced bone fragments insidethe sinus and extensive hemorrhage and foci of gas within the rightmaxillary sinus. Extensive soft tissue swelling and lacerations overlaying theright cheek/right premaxillary region. *There are comminuted minimally displaced fractures of the medial wallof the right maxillary sinus. There are minimally displaced or nondisplaced fractures of the floor of the right maxillary sinus. There is chronic periosteal thickening of the right maxillary sinus. *There is a comminuted, mildly displaced blowout fracture of the right inferior orbital wall, involving the infraorbital foramen. Extra ocularfat stranding and extraocular gas are seen along the inferior portion of the right orbit. No extra ocular muscle entrapment. *Suspected fracture of the right lamina papyracea. *Acute fracture of the right zygomatic process extending to the temporal bone and frontal process of the temporal bone. *As mentioned above, there is a mildly displaced fracture through the greater wing of the sphenoid and temporal fossa with associated foci of pneumocephalus. *Mildly displaced fracture of the body of the sphenoid, as explainedabove. *There is a minimally displaced or nondisplaced fracture of the right temporal bone. Opacification and small foci of air of the right maxillary sinus,bilateral sphenoid sinuses, ethmoid air cells and right frontal sinus likely representing blood products. Small foci of air within the right foramen rotundum. There several foci of air and fat stranding of the right retrobulbar fat. There is a facial soft tissue swelling, involving the right face and the right right periorbital region as well as the right temporal region with associated subcutaneous emphysema. 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 The the globes, left optic nerve, left retrobulbar fat and extraocular muscles appear normal. The nasal septum is deviated to the left with a septal spur in contact with the medial wall of the left maxillary sinus. Findings dental caries, missing teeth, and prevertebral lucencies. Thehard palate, mandible, and temporomandibular joints appear normal. Themastoid air cells are clear. Cervical spine: Straightening of the cervical lordosis. Trace anterolisthesis of C4 onC5. The alignment is otherwise maintained. The prevertebral soft tissue is normal in thickness. The bones are mildly osteopenic. Vertebral bodiesare normal in height without evidence of acute fracture. Multiple foci ofair are present within the vertebral bodies of C5, C6 . Other than middle atlantoaxial joint osteoarthritis, the craniocervical junction appears normal. There is moderate to severe multilevel degenerative discdisease. Borderline developmental cervical spinal canal stenosis and superimposed multilevel degenerative disc and joint disease resulting in moderatespinal canal stenosis at multiple levels.. There are varying degrees ofmoderate to severe multiple facet osteoarthritis. There are varying degrees of moderate to severe multilevel uncovertebral joint osteoarthritis withthe same degree of neural foraminal stenosis at these levels. There is atherosclerotic calcification of the carotid bifurcations.There is paraseptal emphysema in the lung apices. Thoracic spine: There is mild dextrocurvature of the thoracic spine. The mineralizationof the bones is normal. Vertebral bodies are normal in height withoutevidence of acute fracture. There is advanced multilevel degenerative discdisease most notable at T2-T3. Vacuum phenomenon is present at multiple levelsin the lower thoracic spine. The high-grade central canal is patent. Thereare varying degrees of up to moderate facet osteoarthritis with the samedegree of neural foraminal stenosis at these levels. Apical centrilobular emphysema is present. Lumbar spine: There is mild dextrocurvature of the lumbar spine. Minimal levocurvatureof the lumbosacral junction. Grade 1 anterolisthesis of L4 on L5. Grade 1 anterolisthesis of L5 on S1. Bilateral L5 pars interarticulares defects. The bones are mildly osteopenic. Vertebral bodies are normal in height without evidence of acute fracture. There is up to severe multilevel degenerative disc disease with vacuum phenomenon at multiple levels. The central canal is moderately stenotic at with posterior syndesmophytes present at L2-L3 and L5-L6. There are varying degrees of up to moderate facet osteoarthritis with the same degree of neural foraminal stenosisat these levels. There is atherosclerotic calcification of the abdominal aorta and its branch vessels. Partially visualized right hip arthroplasty. Atherosclerosis of the abdominal aorta and bilateral common iliacs. 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 No midline shift is identified. 2.Multiple cranial and the skull base fractures as detailed above. 3.Extensive facial bone fractures, including right zygomaticomaxillary complex spectrum, and multiple right orbital wall fractures with right inferior orbital wall blowout fracture, involving the right infraorbital foramen as well as suspected right temporal bone fracture. A dedicatedCT of the temporal bones is recommended for further evaluation. 4.Multilevel changes as described above in the cervical, thoracic and lumbar spine without acute findings. These findings were discussed in detail with the patient's careprovider, Drs. Giles and Marck by Dr. Ferrari via telephone at 12/10/2023 8:50 PM with readback comprehension and verification. The report is dictated by Jeaneth Ferrari MD (vice president network) I, Giovani Wynne MD have personally reviewed and interpretedthis examination/study. > Interpreting Provider: Giovani Wynne MD on 12/11/2023 12:03 AM Francois Osborn MD CT ORDERABLES * CT FACIAL BONES WO CONTRAST - Facial trauma, fx suspected, blunt (12/10/2023 7:56 PM CDT) Anatomical Region Laterality Modality Head Computed Tomogra phy 12/10/2023 8:01 PM CDT Impressions 12/11/2023 12:03 AM CDT IMPRESSION: 1.Sequela of TBI with multi-compartmental intracranial [...] detail with the patient's care provider, Drs. ??Chan and Marck by Dr. Ferrari via telephone at 12/10/2023 8:50 PM with readback comprehension and verification. ?? The report is dictated by Jeaneth Ferrari MD (vice president network) I, Giovani Wynne MD have personally reviewed and interpreted this examination/study. > Interpreting Provider: Giovani Wynne MD on 12/11/2023 12:03 AM Narrative 12/11/2023 12:03 AM CDT PROCEDURE: ??CT HEAD WO CONTRAST, CT FACIAL BONES WO CONTRAST, CT LUMBAR SPINE WO CONTRAST, CT THORACIC SPINE WO CONTRAST, CT CERVICAL SPINE WO CONTRAST, DATE/TIME OF EXAM: ??12/10/2023 7:58 PM, LOCATION ??[facility] INDICATION: Trauma EXAMINATION: 1.Computed tomography (CT) of the head without contrast 2.CT of the maxillofacial bones, orbits, and paranasal sinuses without contrast 3.CT of the cervical spine without contrast 4.CT of the thoracic spine without contrast 5.CT of the lumbar spine without contrast TECHNIQUE: CT of the head, cervical spine, and maxillofacial bones, orbits, and paranasal sinuses was performed without contrast according to standard protocol. Reformatted axial, sagittal, and coronal images of the thoracic and lumbar spine were obtained by the technologist from a concurrently performed body CT and sent to the workstation for review. CT dose reduction technique was used, including Automated Exposure Control. COMPARISON: No prior study is available for comparison at the time of this dictation. FINDINGS: Head: Sequela of TBI with multi-compartmental intracranial hemorrhages and hemorrhagic contusions, including small volume subarachnoid hemorrhage along the left cerebral convexity sulci and the posterior left temporal lobe, series 2, image 17) small volume hemorrhagic contusions, extra-axial hemorrhages, and small foci of gas are seen along the anterior right frontal orbital region, (series 3, image 22). Similar finding is also hemorrhagic contusions, extra-axial hemorrhages and foci of gas are noted along the anterior right temporal convexity. Additional small volume diffuse subarachnoid hemorrhages are suspected along the right cerebral convexity sulci. Small volume extra-axial hemorrhages are suspected along the anterior left frontal convexity, with associated small focus of extra-axial pneumocephalus and associated with hemorrhagic contusion. Small volume extra-axial, subdural hemorrhage along the left frontal convexity measuring approximately 3-4 mm, (series 6, image 23). Small volume subdural hemorrhage adjacent to the gyri recti. As mentioned above, there are multiple foci of pneumocephalus present in the bilateral frontal lobes adjacent to the lesser wing of the sphenoid. There is mild effacement of the frontal horn of the right lateral ventricle. The basal cisterns are slightly effaced. Borderline low-lying cerebellar tonsils with subtle crowding at the level of the foramen magnum but normal enoc tonsillar herniation. No midline shift is seen. The bryan-white matter differentiation otherwise appears normal. Periventricular white matter hypoattenuation is a nonspecific finding that may be indicative of chronic small vessel ischemic disease. There is atherosclerotic calcification of the carotid siphons. There is a mildly displaced fracture of the right frontal bone, involving the anterior and the lateral miranda of the right frontal sinus, extending along the right frontal bone and the squamous portion of the right temporal bone. There are multiple, nondisplaced or minimally displaced fractures of the floor of the anterior cranial fossa. There are multiple fractures of the central skull base involving the sphenoid bones. There are minimally displaced fractures of the posterior skull base, involving the left jugular foramen and adjacent temporal occipital bone. There are multiple comminuted fractures of the squamous portion of the right temporal bone, extending along the floor of the anterior cranial fossa and the roof of the right orbit. Maxillofacial: There are multiple craniofacial fractures as follows: *Foci of gas along the floor of the left anterior cranial fossa overlaying the left orbital roof suggestive of an occult fracture of the left orbital roof. *There are minimally displaced fractures of the left cribriform plate of ethmoid bone. *There is a minimally displaced fracture of the jhon nereida. *Suspected nondisplaced or minimally displaced fractures of the nasal bones. *There are multiple, mildly displaced fractures of the central skull base involving the miranda of the sphenoid sinus, worse on the right side with mildly displaced fractures, involving the miranda of the right sphenoid sinus and the right foramen ovale. There is fracture involvement of the right carotid canal. *There are mildly or moderately displaced fractures of the floor of the right anterior cranial fossa, involving the roof of the right orbit, extending near 0 right orbital apex. There is possibly a fracture of the anterior clinoid processes. Small amount of gas and fat stranding/small hemorrhage along the extraconal space along the roof of the right orbit. *There are fractures of the right sphenoid wing, involving the lateral wall of the right orbit and the miranda of the right optic canal *There are multiple fractures of the floor of the right middle cranial fossa. *There are multiple, comminuted, angulated, depressed fractures of the anterior wall of the right maxillary sinus. *There are comminuted, moderately displaced fractures of the posterolateral wall of the right maxillary sinus with displaced bone fragments inside the sinus and extensive hemorrhage and foci of gas within the right maxillary sinus. Extensive soft tissue swelling and lacerations overlaying the right cheek/right premaxillary region. *There are comminuted minimally displaced fractures of the medial wall of the right maxillary sinus. There are minimally displaced or nondisplaced fractures of the floor of the right maxillary sinus. There is chronic periosteal thickening of the right maxillary sinus. *There is a comminuted, mildly displaced blowout fracture of the right inferior orbital wall, involving the infraorbital foramen. Extra ocular fat stranding and extraocular gas are seen along the inferior portion of the right orbit. No extra ocular muscle entrapment. *Suspected fracture of the right lamina papyracea. *Acute fracture of the right zygomatic process extending to the temporal bone and frontal process of the temporal bone. *As mentioned above, there is a mildly displaced fracture through the greater wing of the sphenoid and temporal fossa with associated foci of pneumocephalus. *Mildly displaced fracture of the body of the sphenoid, as explained above. *There is a minimally displaced or nondisplaced fracture of the right temporal bone. Opacification and small foci of air of the right maxillary sinus, bilateral sphenoid sinuses, ethmoid air cells and right frontal sinus likely representing blood products. Small foci of air within the right foramen rotundum. There several foci of air and fat stranding of the right retrobulbar fat. There is a facial soft tissue swelling, involving the right face and the right right periorbital region as well as the right temporal region with associated subcutaneous emphysema. 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 The the globes, left optic nerve, left retrobulbar fat and extraocular muscles appear normal. The nasal septum is deviated to the left with a septal spur in contact with the medial wall of the left maxillary sinus. Findings dental caries, missing teeth, and prevertebral lucencies. The hard palate, mandible, and temporomandibular joints appear normal. The mastoid air cells are clear. Cervical spine: Straightening of the cervical lordosis. Trace anterolisthesis of C4 on C5. The alignment is otherwise maintained. The prevertebral soft tissue is normal in thickness. The bones are mildly osteopenic. Vertebral bodies are normal in height without evidence of acute fracture. Multiple foci of air are present within the vertebral bodies of C5, C6 . Other than middle atlantoaxial joint osteoarthritis, the craniocervical junction appears normal. There is moderate to severe multilevel degenerative disc disease. Borderline developmental cervical spinal canal stenosis and superimposed multilevel degenerative disc and joint disease resulting in moderate spinal canal stenosis at multiple levels.. There are varying degrees of moderate to severe multiple facet osteoarthritis. There are varying degrees of moderate to severe multilevel uncovertebral joint osteoarthritis with the same degree of neural foraminal stenosis at these levels. There is atherosclerotic calcification of the carotid bifurcations. There is paraseptal emphysema in the lung apices. Thoracic spine: There is mild dextrocurvature of the thoracic spine. The mineralization of the bones is normal. Vertebral bodies are normal in height without evidence of acute fracture. There is advanced multilevel degenerative disc disease most notable at T2-T3. Vacuum phenomenon is present at multiple levels in the lower thoracic spine. The high-grade central canal is patent. There are varying degrees of up to moderate facet osteoarthritis with the same degree of neural foraminal stenosis at these levels. Apical centrilobular emphysema is present. Lumbar spine: There is mild dextrocurvature of the lumbar spine. Minimal levocurvature of the lumbosacral junction. Grade 1 anterolisthesis of L4 on L5. Grade 1 anterolisthesis of L5 on S1. Bilateral L5 pars interarticulares defects. The bones are mildly osteopenic. Vertebral bodies are normal in height without evidence of acute fracture. There is up to severe multilevel degenerative disc disease with vacuum phenomenon at multiple levels. The central canal is moderately stenotic at with posterior syndesmophytes present at L2-L3 and L5-L6. There are varying degrees of up to moderate facet osteoarthritis with the same degree of neural foraminal stenosis at these levels. There is atherosclerotic calcification of the abdominal aorta and its branch vessels. Partially visualized right hip arthroplasty. Atherosclerosis of the abdominal aorta and bilateral common iliacs. Procedure Note Giovani Wynne MD - 12/11/2023 PROCEDURE: CT HEAD WO CONTRAST, CT FACIAL BONES WO CONTRAST, CT LUMBAR SPINE WO CONTRAST, CT THORACIC SPINE WO CONTRAST, CT CERVICAL SPINE WO CONTRAST, DATE/TIME OF EXAM: 12/10/2023 7:58 PM, LOCATION [facility] INDICATION: Trauma EXAMINATION: 1.Computed tomography (CT) of the head without contrast 2.CT of the maxillofacial bones, orbits, and paranasal sinuses without contrast 3.CT of the cervical spine without contrast 4.CT of the thoracic spine without contrast 5.CT of the lumbar spine without contrast TECHNIQUE: CT of the head, cervical spine, and maxillofacial bones,orbits, and paranasal sinuses was performed without contrast according tostandard protocol. Reformatted axial, sagittal, and coronal images of thethoracic and lumbar spine were obtained by the technologist from a concurrently performed body CT and sent to the workstation for review. CT dosereduction technique was used, including Automated Exposure Control. COMPARISON: No prior study is available for comparison at the time ofthis dictation. FINDINGS: Head: Sequela of TBI with multi-compartmental intracranial hemorrhages and hemorrhagic contusions, including small volume subarachnoid hemorrhage along the left cerebral convexity sulci and the posterior left temporal lobe, series 2, image 17) small volume hemorrhagic contusions,extra-axial hemorrhages, and small foci of gas are seen along the anterior right frontal orbital region, (series 3, image 22). Similar finding is also hemorrhagic contusions, extra-axial hemorrhages and foci of gas arenoted along the anterior right temporal convexity. Additional small volume diffuse subarachnoid hemorrhages are suspected along the right cerebral convexity sulci. Small volume extra-axial hemorrhages are suspectedalong the anterior left frontal convexity, with associated small focus of extra-axial pneumocephalus and associated with hemorrhagic contusion.Small volume extra-axial, subdural hemorrhage along the left frontal convexity measuring approximately 3-4 mm, (series 6, image 23). Small volumesubdural hemorrhage adjacent to the gyri recti. As mentioned above, there are multiple foci of pneumocephalus present in the bilateral frontal lobes adjacent to the lesser wing of the sphenoid. There is mild effacement of the frontal horn of the right lateral ventricle. The basal cisterns are slightly effaced. Borderline low-lying cerebellar tonsils with subtle crowding at the level of the foramenmagnum but normal enoc tonsillar herniation. No midline shift is seen. The bryan-white matter differentiation otherwise appears normal.Periventricular white matter hypoattenuation is a nonspecific finding that may be indicative of chronic small vessel ischemic disease. There is atherosclerotic calcification of the carotid siphons. There is a mildly displaced fracture of the right frontal bone, involving the anterior and the lateral miranda of the right frontal sinus, extending along the right frontal bone and the squamous portion of the right temporal bone. Thereare multiple, nondisplaced or minimally displaced fractures of the floor ofthe anterior cranial fossa. There are multiple fractures of the centralskull base involving the sphenoid bones. There are minimally displacedfractures of the posterior skull base, involving the left jugular foramen and adjacent temporal occipital bone. There are multiple comminutedfractures of the squamous portion of the right temporal bone, extending along the floor of the anterior cranial fossa and the roof of the right orbit. Maxillofacial: There are multiple craniofacial fractures as follows: *Foci of gas along the floor of the left anterior cranial fossaoverlaying the left orbital roof suggestive of an occult fracture of the leftorbital roof. *There are minimally displaced fractures of the left cribriform plate of ethmoid bone. *There is a minimally displaced fracture of the jhon nereida. *Suspected nondisplaced or minimally displaced fractures of the nasal bones. *There are multiple, mildly displaced fractures of the central skullbase involving the miranda of the sphenoid sinus, worse on the right side with mildly displaced fractures, involving the miranda of the right sphenoidsinus and the right foramen ovale. There is fracture involvement of the right carotid canal. *There are mildly or moderately displaced fractures of the floor of the right anterior cranial fossa, involving the roof of the right orbit, extending near 0 right orbital apex. There is possibly a fracture of the anterior clinoid processes. Small amount of gas and fat stranding/small hemorrhage along the extraconal space along the roof of the right orbit. *There are fractures of the right sphenoid wing, involving the lateralwall of the right orbit and the miranda of the right optic canal *There are multiple fractures of the floor of the right middle cranial fossa. *There are multiple, comminuted, angulated, depressed fractures of the anterior wall of the right maxillary sinus. *There are comminuted, moderately displaced fractures of theposterolateral wall of the right maxillary sinus with displaced bone fragments insidethe sinus and extensive hemorrhage and foci of gas within the rightmaxillary sinus. Extensive soft tissue swelling and lacerations overlaying theright cheek/right premaxillary region. *There are comminuted minimally displaced fractures of the medial wallof the right maxillary sinus. There are minimally displaced or nondisplaced fractures of the floor of the right maxillary sinus. There is chronic periosteal thickening of the right maxillary sinus. *There is a comminuted, mildly displaced blowout fracture of the right inferior orbital wall, involving the infraorbital foramen. Extra ocularfat stranding and extraocular gas are seen along the inferior portion of the right orbit. No extra ocular muscle entrapment. *Suspected fracture of the right lamina papyracea. *Acute fracture of the right zygomatic process extending to the temporal bone and frontal process of the temporal bone. *As mentioned above, there is a mildly displaced fracture through the greater wing of the sphenoid and temporal fossa with associated foci of pneumocephalus. *Mildly displaced fracture of the body of the sphenoid, as explainedabove. *There is a minimally displaced or nondisplaced fracture of the right temporal bone. Opacification and small foci of air of the right maxillary sinus,bilateral sphenoid sinuses, ethmoid air cells and right frontal sinus likely representing blood products. Small foci of air within the right foramen rotundum. There several foci of air and fat stranding of the right retrobulbar fat. There is a facial soft tissue swelling, involving the right face and the right right periorbital region as well as the right temporal region with associated subcutaneous emphysema. 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 The the globes, left optic nerve, left retrobulbar fat and extraocular muscles appear normal. The nasal septum is deviated to the left with a septal spur in contact with the medial wall of the left maxillary sinus. Findings dental caries, missing teeth, and prevertebral lucencies. Thehard palate, mandible, and temporomandibular joints appear normal. Themastoid air cells are clear. Cervical spine: Straightening of the cervical lordosis. Trace anterolisthesis of C4 onC5. The alignment is otherwise maintained. The prevertebral soft tissue is normal in thickness. The bones are mildly osteopenic. Vertebral bodiesare normal in height without evidence of acute fracture. Multiple foci ofair are present within the vertebral bodies of C5, C6 . Other than middle atlantoaxial joint osteoarthritis, the craniocervical junction appears normal. There is moderate to severe multilevel degenerative discdisease. Borderline developmental cervical spinal canal stenosis and superimposed multilevel degenerative disc and joint disease resulting in moderatespinal canal stenosis at multiple levels.. There are varying degrees ofmoderate to severe multiple facet osteoarthritis. There are varying degrees of moderate to severe multilevel uncovertebral joint osteoarthritis withthe same degree of neural foraminal stenosis at these levels. There is atherosclerotic calcification of the carotid bifurcations.There is paraseptal emphysema in the lung apices. Thoracic spine: There is mild dextrocurvature of the thoracic spine. The mineralizationof the bones is normal. Vertebral bodies are normal in height withoutevidence of acute fracture. There is advanced multilevel degenerative discdisease most notable at T2-T3. Vacuum phenomenon is present at multiple levelsin the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
--- OUTSIDE RECORDS SUMMARY | 2024-08-23 18:34 | XMS_ITS | Encounter Summary ---
Author Organization [facility] Health Address [address] [facility] [address] [facility] [place] [address] Care Team Providers Care Housing Coordinator Name Role Phone Unavailable Primary Care Provider Unavailabl e Encounter Details Date Type Department Care Team (Late st Contact Info) Description 12/10/2023 Ophth Exam [facility] - Ophthalmology [address] [place] [address] Ho Anthony MD [address] [facility] [place] [address] Social History Tobacco Use Types Packs/Day Years Used Date Smoking Tobacco: Every Day Cigarettes Smokeless Tobacco: Never Alcohol Use Standard Drinks/Week Comments Yes 0 (1 standard drink = 0.6 oz pur e alcohol) occ AUDIT-C Answer Date Recorded Q1: How often do you have a drink containing alc ohol? 2-4 times a month 12/10/2023 Q2: How many drinks containi ng alcohol do you have on a typical day when you are drinking? 1 or 2 12/10/2023 Q3: How often do you have si x or more drinks on one occasion? Never 12/10/2023 Overall Financial Resource Strain (CARDIA) Answe r Date Recorded How hard is it for you to pa y for the very basics like food, housing, medical care, and heating? Somewhat hard 12/11/2023 [facility] [place] [facility] - Occupational Stress Questionnaire Answer Date Recorded Do you feel stress - tense, restless, nervous, or anxious, or unable to sleep at night because your mind is troubled all the time - these days? Not at all 12/11/2023 Hunger Vital Sign Answer Date Recorded Within the past 12 months, y ou worried that your food would run out before you got the money to buy more. Sometimes true Within the past 12 months, t he food you bought just didn't last and you didn't have money to get more. Sometimes true PRAPARE - Transportation Answer Date Re corded In the past 12 months, has l ack of transportation kept you from medical appointments or from getting medications? No 11/13 In the past 12 months, has l ack of transportation kept you from meetings, work, or from getting things needed for daily living? No 12/11/2023 Housing Stability Vital Sign Answer Compa e Recorded In the last 12 months, was t here a time when you were not able to pay the mortgage or rent on time? No 12/11/2023 In the last 12 months, how many places have you lived? 1 12/11/2023 In the last 12 months, was t here a time when you did not have a steady place to sleep or slept in a care home (including now)? No 12/11/2023 Sex and Gender Information Value Date Recorded Sex Assigned at Not on file Gender Identity Not on file Sexual Orientation Not on file documented as of this encounter Plan of Treatment Not on file documented as of this encounter Visit Diagnoses Not on filedocumented in this encounter Additional Health Concerns Infection Onset Date Last Indicated Resolved Time COVID-19 Under Investigation 12/14/2023 12/14/2023 12/25/2023 4:33 AM CDT MRSA Hx 12/17/2023 12/17/2023 documented as of this encounter
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
--- OUTSIDE RECORDS SUMMARY | 2024-08-23 18:34 | XMS_ITS | Encounter Summary ---
Author Organization [facility] Address [address] [place] [address]. 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 Gender Identity Not on file Sexual Orientation Not on file documented as of this encounter Plan of Treatment Not on file documented as of this encounter Procedures Procedure Name Priority Date/Time Associated Diagnosis Comments URINALYSIS Nurse Collected Priority 12/09/2015 12:10 PM CDT documented in this encounter Results * (ABNORMAL) URINALYSIS (12/09/2015 12:10 PM CDT) COLOR (U) YELLOW 12/09/2015 12:55 PM CDT [facility] TRANSPARENCY HAZY 12/09/2015 12:55 PM CDT [facility] SPECIFIC GRAVITY (U) 1.016 1.002 - 1.035 12/09/2015 12:55 PM CDT [facility] U PH 5.0 5 - 8 12/09/2015 12:55 PM CDT [facility] PROTEIN (U) NEGATIVE NEGATIVE 12/09/2015 12:55 PM CDT [facility] URINE GLUCOSE NEGATIVE NEGATIVE MG/DL 12/09/2015 12:55 PM CDT [facility] KETONES MG/DL (U) TRACE(A) NEGATIVE 12/09/2015 12:55 PM CDT [facility] BILIRUBIN (U) NEGATIVE NEGATIVE 12/09/2015 12:55 PM CDT [facility] BLOOD (U) SMALL(A) NEGATIVE 12/09/2015 12:55 PM CDT [facility] NITRITES POSITIVE(A) NEGATIVE 12/09/2015 12:55 PM CDT [facility] UROBILINOGEN NORMAL 0 - 1 EU/DL 12/09/2015 12:55 PM CDT [facility] LEUKOCYTES (U) SMALL(A) NEGATIVE 12/09/2015 12:55 PM CDT [facility] RBC/HPF 4 /HPF 12/09/2015 12:55 PM CDT [facility] WBC/HPF 74 /HPF 12/09/2015 12:55 PM CDT [facility] BACTERIA (U) PRESENT /HPF 12/09/2015 12:55 PM CDT [facility] SQUAMOUS EPITHELIALS 4 12/09/2015 12:55 PM CDT [facility] URINE SPECIMEN / Unknown 12/09/2015 12:10 PM CDT 12/09/2015 12:33 PM CDT us Generic Conversion Md BENNETT URINE ORDERABLES Final Result [facility] [place] [address], [id number] documented in this encounter Visit Diagnoses Not on filedocumented in this encounter Additional Health Concerns Infection Onset Date Last Indicated Resolved Time MRSA 07/06/2017 07/06/2017 documented as of this encounter
--- OUTSIDE RECORDS SUMMARY | 2024-08-23 18:34 | XMS_ITS | Encounter Summary ---
Author Organization [facility] Address [address] [place] [address]. 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
--- OUTSIDE RECORDS SUMMARY | 2024-08-23 18:34 | XMS_ITS | Encounter Summary ---
Author Organization [facility] Address [address] [place] [address]. 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 Gender Identity Not on file Sexual Orientation Not on file documented as of this encounter Plan of Treatment Not on file documented as of this encounter Procedures Procedure Name Priority Date/Time Associated Diagnosis Comments BMP WITHOUT GLUCOSE STAT 12/09/2015 1 2:10 PM CDT documented in this encounter Results * (ABNORMAL) BMP WITHOUT GLUCOSE (12/09/2015 12:10 PM CDT) SODIUM S/P/B 136 135 - 147 MMOL/L 12/09/2015 12:58 PM CDT [facility] POTASSIUM S/P/B 4.1 3.5 - 5.0 MMOL/L 12/09/2015 12:58 PM CDT [facility] CHLORIDE S/P/B 102 98 - 107 MMOL/L 12/09/2015 12:58 PM CDT [facility] CO2 20.0(L) 22 - 29 MMOL/L 12/09/2015 12:58 PM CDT [facility] BUN 9 7 - 19 MG/DL 12/09/2015 12:58 PM CDT [facility] CREATININE S/P/B 0.72 0.60 - 1.10 MG/DL 12/09/2015 12:58 PM CDT [facility] CALCIUM S/P/B 9.7 8.4 - 10.2 MG/DL 12/09/2015 12:58 PM CDT [facility] ANION GAP 14.0 MMOL/L 12/09/2015 12:58 PM CDT [facility] EGFR NON-AFR. AMER. 86 >60 ML/MIN/1.7 3 M2 12/09/2015 12:58 PM CDT [facility] EGFR AFR. AMER. 105 >60 ML/MIN/1.7 3 M2 12/09/2015 12:58 PM CDT [facility] PLASMA SPECIMEN / Unknown 12/09/2015 12:10 PM CDT 12/09/2015 12:32 PM CDT us Generic Conversion Md [facility] Final R esult [facility] [place] [address], [id number] documented in this encounter Visit Diagnoses Not on filedocumented in this encounter Additional Health Concerns Infection Onset Date Last Indicated Resolved Time MRSA 07/06/2017 07/06/2017 documented as of this encounter
--- OUTSIDE RECORDS SUMMARY | 2024-08-23 18:34 | XMS_ITS | Encounter Summary ---
Author Organization [facility] Address [address] [place] [address]. [place] [address] [place] [address] Care Team Providers Care Hospice Care Consultant Name Role Phone Unavailable Primary Care Provider Unavailabl e Encounter Details Date Type Department Care Team (Late st Contact Info) Description 01/09/[address] 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
--- OUTSIDE RECORDS SUMMARY | 2024-08-23 18:34 | XMS_ITS | Encounter Summary ---
Author Organization [facility] Address [address] [place] [address]. 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
--- OUTSIDE RECORDS SUMMARY | 2024-08-23 18:34 | XMS_ITS | Encounter Summary ---
Author Organization [facility] Address [address] [place] [address]. 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
--- OUTSIDE RECORDS SUMMARY | 2024-08-23 18:34 | XMS_ITS | Encounter Summary ---
Author Organization [facility] Address [address] [place] [address]. 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
--- OUTSIDE RECORDS SUMMARY | 2024-08-23 18:34 | XMS_ITS | Encounter Summary ---
Author Organization [facility] Address [address] [place] [address]. 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
--- OUTSIDE RECORDS SUMMARY | 2024-08-23 18:34 | XMS_ITS | Encounter Summary ---
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 (CANCELED) 0-12 Units, Subcutaneous, EVERY 6 HOURS, First dose on Sun12/11/23 at 0000, Until Discontinued, Standard Dose: Correction Insulin BG (mg/dL) Corrective Action LESS than 70 follow Hypoglycemic guidelines 70-140 NO Correction insulin 141-180 GIVE 2 units of insulin 181-220 GIVE 4 units of insulin 221-260 GIVE 6 units of insulin 261-300 GIVE 8 units of insulin 301-350 GIVE 10 units of insulin Greater than 350 GIVE 12 units of insulin and notify physician. DO NOT HOLD if Patient is NPO. If patient has orders for Mealtime insulin combine and give at same time 0208 ($ Given - Provider: Kenzie Lang, RN)0641 ($ Given - Provider: Kenzie Lang, RN) insulin aspart (NovoLOG) pen 0-12 Units 0-12 Units, Subcutaneous, 3 TIMES DAILY WITH MEALS, First dose (after last modification) on Sun12/12/23 at 1200, Until Discontinued, Standard Dose: Correction Insulin BG (mg/dL) Corrective Action LESS than 70 follow Hypoglycemic guidelines 70-140 NO Correction insulin 141-180 GIVE 2 units of insulin 181-220 GIVE 4 units of insulin 221-260 GIVE 6 units of insulin 261-300 GIVE 8 units of insulin 301-350 GIVE 10 units of insulin Greater than 350 GIVE 12 units of insulin and notify physician. DO NOT HOLD if Patient is NPO. If patient has orders for Mealtime insulin combine and give at same time 1246 ($ Given - Provider: Beka Peters RN)1713 ($ Given - Provider: Beka Peters RN) 0902 (Not Administered - Provider: Mignon Rocha RN - Reason: Other - Comment: bs 134)1238 ($ Given - Provider: Mignon Rocha RN)1644 (Not Administered - Provider: Mignon Rocha RN - Reason: Other - Comment: patient is violent and yelling at staff) 0833 ($ Given - Provider: Sveta Monroy RN)1215 ($ Given - Provider: Sveta Monroy RN)1728 ($ Given - Provider: Sveta Monroy RN) insulin aspart (NovoLOG) pen 5 Units 5 Units, Subcutaneous, 3 TIMES DAILY WITH MEALS, First dose on Sun12/14/23 at 1800, Until Discontinued, Hold MEALTIME insulin if patient is NPO or eating less than 50% of meal -OR- If carb intake for the meal is less than 30 grams. 1728 ($ Given - Provider: Sveta Monroy RN) insulin glargine (Lantus) pen 5 Units 5 Units, Subcutaneous, AT BEDTIME, First dose on Sun12/14/23 at 2100, Until Discontinued, Obtain current Blood Glucose if necessary . WASTE DISPOSAL INSTRUCTIONS: Black Bin Disposal required. melatonin tablet 6 mg 6 mg, Oral, AT BEDTIME, First dose on Sun12/14/23 at 2100, Until Discontinued nicotine (Nicoderm CQ) patch 21 mg 21 mg, Administer over 24 Hours, DAILY, First dose on Sun12/13/23 at 1630, Until Discontinued, Remove old patch before applying new patch. This patch may contain metal and is not compatible with MRI. Notify radiology of patch location upon arrival to MRI. . WASTE DISPOSAL INSTRUCTIONS: P-Listed item. Special Disposal Required. . 1625 ($ Applied - Provider: Mignon Rocha RN - Comment: daughter hugged and placed it) 0826 (Not Administered - Provider: Sveta Monroy RN - Reason: Refused-Patient)0835 (Not Administered - Provider: Sveta Monroy RN - Reason: See Comments - Comment: not on) OLANZapine (ZyPREXA) injection 5 mg (COMPLETED) 5 mg, Intramuscular, ONCE, 1 dose, On Sun12/13/23 at 1630, Monitor for orthostatic hypotension prior to the administration. Reconstitute with 2.1 mL of sterile water to give approximately 5 mg/mL concentration. 1626 ($ Given - Provider: Mignon Rocha RN) OLANZapine (ZyPREXA) injection 5 mg (COMPLETED) 5 mg, Intramuscular, ONCE, 1 dose, On Sun12/14/23 at 1400, Monitor for orthostatic hypotension prior to the administration. Reconstitute with 2.1 mL of sterile water to give approximately 5 mg/mL concentration. 1351 ($ Given - Provider: Sveta Monroy, RN) polyethylene glycol 3350 (Miralax) packet 17 g 17 g, Oral, DAILY, First dose on Sun12/11/23 at 0900, Until Discontinued, Mix in 8 ounces of water, juice, soda, coffee or tea prior to administration 0815 ($ Given - Provider: Beka Peters RN) 0900 ($ Given - Provider: Mignon Rocha RN) 0835 ($ Given - Provider: Sveta Monroy, JULISSA) senna-docusate (Senokot-S) tablet 1 tablet 1 tablet, Oral, DAILY, First dose on Sun12/13/23 at 0900, Until Discontinued 0900 ($ Given - Provider: Mignon Rocha RN) 0826 ($ Given - Provider: Sveta Monroy RN) sodium phosphate 15 mmol in dextrose 5 % 255 mL bolus (COMPLETED) 15 mmol, at 42.5 mL/hr, Administer over 6 Hours, Intravenous, ONCE, 1 dose, On Sun12/12/23 at 0700 0824 ($ New Bag/Syringe - Provider: Beka Peters RN)1446 (Stopped - Provider: Beka Peters RN) traZODone (Desyrel) tablet 50 mg 50 mg, Oral, AT BEDTIME, First dose on Sun12/14/23 at 2100, Until Discontinued PRN Medication Order 12/12/2023 12/13/2023 12/14/2023 0.9% NaCl injection 1-10 mL(Linked Group 1) 1-10 mL, Intracatheter, PRN, Other, peripheral line flush, Starting on Sun12/10/23 at 1913, Until Sun12/14/23 at 2007, Flush peripheral IV catheter with 1-10 mL of normal saline before and after medications and prn to clear blood from the line or to verify patency. acetaminophen (Tylenol) tablet 650 mg 650 mg, Oral, EVERY 6 HOURS PRN, Mild Pain, Starting on Sun12/10/23 at 2201, Until Sun12/14/23 at 2006, Patient preference for lesser PRN pain meds [...] first unless patient cannot tolerate oral intake 0819 ($ Given - Provider: Beka Peters, RN) 0058 ($ Given - Provider: Isabella Richter, JULISSA) 0826 ($ Given - Provider: Sveta Monroy RN) cyclobenzaprine (Flexeril) tablet 10 mg 10 mg, Oral, 3 TIMES DAILY PRN, Muscle Spasms, Starting on Sun12/12/23 at 0638, Until Sun12/14/23 at 2006 dextrose 10 % IV bolus(Linked Group 2) 12.5 g, at 468.75 mL/hr, Intravenous, PRN, Other, Bedside Glucose less than 70 mg/dL -If NOT able to eat and/or NPO and with IV Access, Starting on Sun12/10/23 at 2222, Until Sun12/14/23 at 2006, If NOT able to eat and/or NPO [...] EVENT. dextrose 10 % IV bolus(Linked Group 2) 25 g, at 937.5 mL/hr, Intravenous, PRN, Other, Bedside Glucose less than 70 mg/dL -If NOT able to eat and/or NPO and with IV Access, Starting on Sun12/10/23 at 2222, Until Sun12/14/23 at 2006, If NOT able to eat and/or NPO [...] EVENT. glucagon (Glucagen) injection 1 mg(Linked Group 2) 1 mg, Subcutaneous, PRN, Bedside Glucose less than 70 mg/dL - If NOT able to eat and/or NPO and withOUT IV Access, Starting on Sun12/10/23 at 2222, Until Sun12/14/23 at 2006, If NOT able to eat and/or NPO [...] Glucose less than 70 mg/dL, Starting on Sun12/10/23 at 2222, Until Sun12/14/23 at 2006, If able to take oral medications: For [...] for choices) NOTIFY PROVIDER OF HYPOGLYCEMIC EVENT. hydrOXYzine HCl (Atarax) tablet 25 mg 25 mg, Oral, 3 TIMES DAILY PRN, Anxiety, Starting on Sun12/10/23 at 2229, Until Sun12/14/23 at 2006 2149 ($ Given - Provider: Isabella Richter, JULISSA) OLANZapine (ZyPREXA) injection 10 mg(Linked Group 3) 10 mg, Intramuscular, EVERY 6 HOURS PRN, Agitation, severe non-redirectable agitation, Starting on Sun12/14/23 at 1347, Until Sun12/14/23 at 2006, Monitor for orthostatic hypotension prior to the administration. Reconstitute with 2.1 mL of sterile water to give approximately 5 mg/mL concentration. OLANZapine (ZyPREXA) tablet 10 mg(Linked Group 3) 10 mg, Oral, EVERY 6 HOURS PRN, severe non-redirectable agitation, Starting on Sun12/14/23 at 1347, Until Sun12/14/23 at 2006 oxyCODONE (immediate release) (Roxicodone) tablet 10 mg(Linked Group 4) 10 mg, Oral, EVERY 4 HOURS PRN, Severe Pain, Starting on Sun12/10/23 at 2200, Until Sun12/14/23 at 2006, Patient preference for lesser PRN pain meds [...] first unless patient cannot tolerate oral intake 0645 (See Alternative - Provider: Kenzie Lang RN) 8 (See Alternative - Provider: Isabella Richter RN) oxyCODONE (immediate release) (Roxicodone) tablet 5 mg(Linked Group 4) 5 mg, Oral, EVERY 4 HOURS PRN, Moderate Pain, Starting on Sun12/10/23 at 2200, Until Sun12/14/23 at 2006, Patient preference for lesser PRN pain meds [...] first unless patient cannot tolerate oral intake 0645 ($ Given - Provider: Kenzie Lang, RN) 2148 ($ Given - Provider: Isabella Richter, JULISSA) No Frequency Medication Order 12/12/2023 12/13/2023 12/14/2023 sterile water for injection (preservative free) injection ADS Med (COMPLETED) 1 dose, Starting on Sun12/14/23 at 1345, Until Sun12/14/23 at 1351, Created by cabinet override 1351 ($ New Bag/Syri nge - Provider: Sveta Monroy RN) Linked Groups Order Group 1: SALINE LOCK, INSERT AND MAINTAIN (CANCELED) Routine, CONTINUOUS, Starting on Sun12/10/23 at 1915, Until Specified, New collection, Task Completed: Yes And 0.9% NaCl injection 3 mLJump to med 3 mL, Intracatheter, EVERY 8 HOURS, First dose on Sun12/10/23 at 2200, Until Discontinued, Flush peripheral IV catheter with 3 mL of normal saline every 8 hours. And 0.9% NaCl injection 1-10 mLJump to med 1-10 mL, Intracatheter, PRN, Other, peripheral line flush, Starting on Sun12/10/23 at 1913, Until Sun12/14/23 at 2006, Flush peripheral IV catheter with 1-10 mL of normal saline before and after medications and prn to clear blood from the line or to verify patency. Group 2: dextrose 10 % IV bolusJump to med 12.5 g, at 468.75 mL/hr, Intravenous, PRN, Other, Bedside Glucose less than 70 mg/dL -If NOT able to eat and/or NPO and with IV Access, Starting on Sun12/10/23 at 2222, Until Sun12/14/23 at 2006, If NOT able to eat and/or NPO [...] NPO and with IV Access, Starting on Sun12/10/23 at 2222, Until Sun12/14/23 at 2006, If NOT able to eat and/or NPO [...] NPO and withOUT IV Access, Starting on Sun12/10/23 at 2222, Until Sun12/14/23 at 2006, If NOT able to eat and/or NPO and NO IV Access: For Bedside glucose 54- 69 mg/dL ? - Give 1 mg subcutaneous [...] use immediately and discard unused portion Group 3: OLANZapine (ZyPREXA) injection 10 mgJump to med 10 mg, Intramuscular, EVERY 6 HOURS PRN, Agitation, severe non-redirectable agitation, Starting on Sun12/14/23 at 1347, Until Sun12/14/23 at 2006, Monitor for orthostatic hypotension prior to the administration. Reconstitute with 2.1 mL of sterile water to give approximately 5 mg/mL concentration. Or OLANZapine (ZyPREXA) tablet 10 mgJump to med 10 mg, Oral, EVERY 6 HOURS PRN, severe non-redirectable agitation, Starting on Sun12/14/23 at 1347, Until Sun12/14/23 at 2006 Group 4: oxyCODONE (immediate release) (Roxicodone) tablet 5 mgJump to med 5 mg, Oral, EVERY 4 HOURS PRN, Moderate Pain, Starting on Sun12/10/23 at 2200, Until Sun12/14/23 at 2006, Patient preference for lesser PRN pain meds [...] intake Or oxyCODONE (immediate release) (Roxicodone) tablet 10 mgJump to med 10 mg, Oral, EVERY 4 HOURS PRN, Severe Pain, Starting on Sun12/10/23 at 2200, Until Sun12/14/23 at 2006, Patient preference for lesser PRN pain meds [...] Investigation 12/14/2023 12/14/2023 12/25/2023 4:33 AM CDT documented as of this encounter
--- OUTSIDE RECORDS SUMMARY | 2024-08-23 18:34 | XMS_ITS | Encounter Summary ---
Author Organization [facility] Address [address] [place] [address]. 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
--- OUTSIDE RECORDS SUMMARY | 2024-08-23 18:34 | XMS_ITS | Clinical Summary ---
Author Organization [facility] Address [address] [place] [address]. [place], [place] [address] [place] [address] Care Team Providers Care Car Seat Coverer Name Role Phone Nayana Garber Primary Care Provider [phone] Allergies Active Allergy Reactions Criticality Noted Date Comments Naproxen Hives 12/07/2023 Medications gabapentin (NEURONTIN) 300 MG capsule Take 2 capsules (600 mg total) by mouth 3 (three) times daily as needed. Active meloxicam (MOBIC) 15 MG tablet Take 1 tablet (15 mg total) by mouth daily. Active cyclobenzaprine (FLEXERIL) 10 MG tablet Take 1 tablet (10 mg total) by mouth 2 (two) times daily as needed for Muscle Spasms. Active glipiZIDE XL 10 MG 24 hr tablet Take 1 tablet (10 mg total) by mouth 2 (two) times a day. Do not break or crush tablet Active Multiple Vitamin (MULTIVITAMIN ADULT OR) Take 1 tablet by mouth daily. Active insulin glargine (LANTUS SOLOSTAR) 100 UNIT/ML injection (PEN) Inject 10 Units into the skin nightly at bedtime. 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 Gender Identity Not on file Sexual [...] Mass Index 27.9 01/14/2024 8:00 AM CDT Plan of Treatment Health Maintenance Due Date Last Done Comments Cervical Cancer Screening Pa p Smear (Age 30 to 64) Every 3 Years 1967 Colorectal Cancer Screening Colonoscopy (10 Years) 1967 Annual Physical 1970 Hepatitis C 1985 Hepatitis B Vaccines (1 of 3 - 19+ 3-dose series) 1986 Cervical Cancer Screening Pa p with HPV Testing (Age 30 to 64) Every 5 Years 1997 Cervical Cancer Screening wi th HPV 1997 Mammogram Screening 2007 Lung Cancer Screening 2017 Zoster Vaccines (1 of 2) 2017 COVID-19 Vaccine ( - 2023-2 5 season) 2024 08/17/2022, 04/07/2022, 03/14/2022 Influenza Adult (#1) 2024 08/17/2022, 07/24/2017, 05/25/2016 DTaP, Tdap and Td Vaccines ( 2 - Td or Tdap) 12/09/2033 12/10/2023 Meningococcal Vaccine Aged Out No mayela reymundo eligible based on patient's age to complete this topic Pneumococcal Vaccine: Pediatrics (0 to 5 Years) and At-Risk Patients (6 to 64 Years) Aged Out No longer eligible b ased on patient's age to complete this topic RSV Immunizations Under 20 Months Aged Out No longer eligible b ased on patient's age to complete this topic Additional Health Concerns Infection Onset Date Last Indicated MRSA 07/06/2017 07/06/[address] [place] [address] Care Teams Car Seat Coverer Relationship Specialty Start Date End Date Nayana Garber PA [address] [place] [address] PCP - General PHYSICIAN SUPERVISOR MELT [employer]SE 12/07/23
--- OUTSIDE RECORDS SUMMARY | 2024-08-23 18:34 | XMS_ITS | Encounter Summary ---
Author Organization [facility] Address [address] [place] [address]. 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 Gender Identity Not on file Sexual Orientation Not on file documented as of this encounter Plan of Treatment Not on file documented as of this encounter Procedures Procedure Name Priority Date/Time Associated Diagnosis Comments POCT GLUCOSE - BUSH DOCKED DEVICE Routine 12/09/2015 12:09 PM CDT documented in this encounter Results * (ABNORMAL) POCT glucose (12/09/2015 12:09 PM CDT) GLUCOSE POC 205(H) 70 - 109 12/10/2015 6:28 AM CDT [facility] ORDERS INTERFACE WHOLE BLOOD SPECIMEN / Unknown 12/09/2015 12:09 PM CDT 12/10/2015 6:28 AM CDT us Generic Conversion Md BENNETT POCT ORDERABLES - DEVIC E Final Result [facility] [place] [address], documented in this encounter Visit Diagnoses Not on filedocumented in this encounter Additional Health Concerns Infection Onset Date Last Indicated Resolved Time MRSA 07/06/2017 07/06/2017 documented as of this encounter
--- OUTSIDE RECORDS SUMMARY | 2024-08-23 18:34 | XMS_ITS | Encounter Summary ---
Author Organization [facility] Address [address] [place] [address]. 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
--- OUTSIDE RECORDS SUMMARY | 2024-08-23 18:34 | XMS_ITS | Encounter Summary ---
Author Organization [facility] Address [address] [place] [address]. [place] [address] [place] [address] Care Team Providers Care Project Systems Engineer Name Role Phone Nayana Garber Primary Care Provider [phone] Reason for Visit * Auth/Cert Specialty Diagnoses / Procedures Referred By Rebekah geiger Referred To Contact Diagnoses BONE SPUR M25.775 Procedures RESECTION OF BONE LEFT GREAT TOE Marcell Caceres DPM [address] [place] [address] Phone: tel: fax: Referral ID Status Reason Start Date Expiration Date Visits Re quested Visits Authorized [id number] 1 1 Encounter Details Date Type Department Care Team (Latest Contact Info) Description 01/14/2024 7:34 AM CDT - 01/14/2024 9:50 AM CDT Hospital Encounter [facility] [place], [place] [id number] Marcell Caceres DPM [address] [place] [address] Discharge Disposition: Home or Self Care (Routine Discharge) Social History Tobacco Use Types Packs/Day Years Used Date Smoking Tobacco: Former Cigarettes 1 30 1 - 2020 Smokeless Tobacco: Never Alcohol Use Standard Drinks/Week Comments Not Currently 0 (1 standard drink = 0.6 oz pur e alcohol) Comments No Sex and Gender Information Value Date Recorded Sex Assigned at Not on file 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 Exam Filed Vitals: 12/07/23 1126 Weight: 88.5 kg (195 lb) Height: [...] documented in this encounter Nursing Notes * Cindy Pizano RN - 01/14/2024 9:14 AM CDT Patient's daughter, Malinda, called and updated on procedure completion. CINDY PIZANO RN documented in this encounter OR Notes * Op Note - Marcell Ccaeres DPM - 01/14/2024 9:25 AM CDT Post-Operative Note Surgeon: Dr. MRACELL CACERES DPM Preoperative Diagnosis: Hypertrohpic bone left [...] 12/13 LCS CXD 12/13SCHED BY FAX 11/27/2023 YOANDY Special Needs LOCAL POCT GLUCOSE - BUSH DOCKED DEVICE Routine 01/14/2024 8:28 AM CDT documented in this encounter Results * (ABNORMAL) POCT glucose (01/14/2024 8:28 AM CDT) GLUCOSE POC 138(H) 70 - 99 mg/dL 01/14/2024 8:31 AM CDT [facility] 01/14/2024 8:28 AM CDT us Marcell Caceres DPM POCT ORDERABLES - DEVICE Final Result [facility] [address] [place] [address], documented in this encounter Visit Diagnoses Diagnosis Bone spur- Primary Exostosis of unspecified site documented in this encounter Administered Medications documented in this encounter Active and Recently [...] documented as of this encounter Care Teams Project Systems Engineer Relationship Specialty Start Date End Date Nayana Garber PA [address] [place] [address] PCP - General PHYSICIAN HORSE TRADER 12/07/23 documented as of this encounter
--- OUTSIDE RECORDS SUMMARY | 2024-08-23 18:34 | XMS_ITS | Encounter Summary ---
Author Organization [facility] Address [address] [place] [address]. 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
--- OUTSIDE RECORDS SUMMARY | 2024-08-23 18:34 | XMS_ITS | Encounter Summary ---
Author Organization [facility] Address [address] [place] [address]. 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
--- OUTSIDE RECORDS SUMMARY | 2024-08-23 18:34 | XMS_ITS | Encounter Summary ---
Author Organization [facility] Address [address] [facility] [place] [address] Care Team Providers Care Care Program Resident Name Role Phone Unavailable Primary Care Provider Unavailabl e Encounter Details Date Type Department Care Team (Latest Contact Info) Description 12/11/2023 Travel Social History Tobacco Use Types Packs/Day [...] medical care, and heating? Somewhat hard 12/11/2023 [facility] [place] [facility] - Occupational Stress [...] place to sleep or slept in a alf (including now)? No 12/11/2023 Sex and Gender Information Value Date Recorded Sex Assigned at Not on file Gender Identity Not on file Sexual Orientation Not on file documented as of this encounter Plan of Treatment Not on file documented as of this encounter Visit Diagnoses Not on filedocumented in this encounter
--- OUTSIDE RECORDS SUMMARY | 2024-08-23 18:34 | XMS_ITS | Encounter Summary ---
Author Organization [facility] Address [address] [place] [address]. 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
--- OUTSIDE RECORDS SUMMARY | 2024-08-23 18:34 | XMS_ITS | Encounter Summary ---
Author Organization [facility] Address [address] [place] [address]. 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1 36.0 - 47.0 % 12/09/2015 12:48 PM CDT HS LAB ORDERS INTERFACE MCV 89.9 78.0 - 100.0 FL 12/09/2015 12:48 PM CDT HS LAB ORDERS INTERFACE MCH 30.6 27.0 - 31.0 PG 12/09/2015 12:[address] [facility] ORDERS INTERFACE MCHC 34.0 33.0 - 36.0 G/DL 12/09/2015 12:[address] [facility] ORDERS INTERFACE RDW 13.2 11.5 - 14.5 % 12/09/2015 12:[address] [facility] ORDERS INTERFACE PLT 179 150 - 350 x10'3/uL 12/09/2015 12:[address] [facility] ORDERS INTERFACE MPV 9.1 7.4 - 10.4 FL 12/09/2015 12:[address] [facility] ORDERS INTERFACE ABS. NEUTROPHILS TOTAL 5.16 1.60 - 8.30 x10'3/uL 12/09/2015 12:[address] [facility] ORDERS INTERFACE ABS. LYMPHOCYTES 2.14 0.80 - 4.70 x10'3/uL 12/09/2015 12:[address] [facility] ORDERS INTERFACE ABS. MONOCYTES 0.61 0.00 - 1.50 x10'3/uL 12/09/2015 12:[address] [facility] ORDERS INTERFACE ABS. EOSINOPHILS 0.13 0.00 - 0.40 x10'3/uL 12/09/2015 12:[address] [facility] ORDERS INTERFACE ABS. BASOPHILS 0.05 0.00 - 0.20 x10'3/uL 12/09/2015 12:[address] [facility] ORDERS INTERFACE ABS. IMMATURE GRANULOCYTES 0.03 0.00 - 0.03 x10'3/uL 12/09/2015 12:[address] [facility] ORDERS INTERFACE ABS. NUCLEATED RBC'S 0.00 0.0 x10'3/uL 12/09/2015 12:[address] [facility] LAB ORDERS INTERFACE PLASMA SPECIMEN / Unknown 12/09/2015 12:10 PM CDT 12/09/2015 12:32 PM CDT us Generic Conversion [facility] Final R esult [facility] [place] [address], documented in this encounter Visit Diagnoses Not on filedocumented in this encounter Additional Health Concerns Infection Onset Date Last Indicated Resolved Time MRSA 07/06/2017 07/06/2017 documented as of this encounter
--- OUTSIDE RECORDS SUMMARY | 2024-08-23 18:34 | XMS_ITS | Encounter Summary ---
Author Organization [facility] Address [address] [place] [address] Care Team Providers Care Electrical Tester Name Role Phone Unavailable Primary Care Provider Unavailabl e Encounter Details Date Type Department Care Team (Late st Contact Info) Description 12/11/2023 Ophth Exam [facility] - Ophthalmology [address] [place] [phone] Miya Crooks MD [address] [place] [phone] Social History Tobacco Use Types Packs/Day Years [...] medical care, and heating? Somewhat hard 12/11/2023 [facility] [place] of Occupat ional Health - Occupational Stress [...] place to sleep or slept in a half-way (including now)? No 12/11/2023 Sex and Gender [...]
--- OUTSIDE RECORDS SUMMARY | 2024-08-23 18:34 | XMS_ITS | Encounter Summary ---
Author Organization [facility] Address [address] [place] [address]. 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
--- OUTSIDE RECORDS SUMMARY | 2024-08-23 18:34 | XMS_ITS | Encounter Summary ---
Author Organization [facility] Address [address] [place] [address]. 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
--- OUTSIDE RECORDS SUMMARY | 2024-08-23 18:34 | XMS_ITS | Encounter Summary ---
Author Organization [facility] Address [address] [place] [address]. 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
--- OUTSIDE RECORDS SUMMARY | 2024-08-23 18:34 | XMS_ITS | Encounter Summary ---
Author Organization [facility] Address [address] [place] [address]. 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
--- OUTSIDE RECORDS SUMMARY | 2024-08-23 18:34 | XMS_ITS | Encounter Summary ---
Author Organization [facility] Address [address] [place] [address]. 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
--- OUTSIDE RECORDS SUMMARY | 2024-08-23 18:36 | XMS_ITS | Encounter Summary ---
Author Organization [facility] Healthcare Address [address] [place] [address] Care Team Providers Care Cross Tie Turner Name Role Phone No, Physician Primary Care Provider [phone] Reason for Referral * Diagnostic Imaging (Routine) - Closed Specialty Diagnoses / Procedures Referred By Contac t Referred To Contact Diagnoses S/P cervical spinal fusion Procedures XR Spine Cervical 2 or 3 Views Craol Monae NP [address] [place] [address] Phone: tel: fax: [address] [address] [place] [address] Referral ID Status Reason Start Date Expiration Date Visits Re quested Visits Authorized [id number] Closed 05/22/2024 06/21/2025 1 1 Reason for Visit * Diagnostic Imaging (Routine) - Closed Specialty Diagnoses / Procedures Referred By Contac t Referred To Contact Diagnoses S/P cervical spinal fusion Procedures XR Spine Cervical 2 or 3 Views Carol Monae NP [address] [place] [address] Phone: tel: fax: [address] [place] [address] Referral ID Status Reason Start Date Expiration Date Visits Re quested Visits Authorized [id number] Closed 05/22/2024 06/21/2025 1 1 Encounter Details Date Type Department Care Team (Latest Contact Info) Description 06/06/2024 12:28 PM CDT - 06/06/2024 11:59 PM CDT Hospital Encounter [id number] [address] [facility] [address] [place] [address] S/P cervical spinal fusion Discharge Disposition: Discharge to home or self care Social History Tobacco Use Types Packs/Day Years Used Date Smoking Tobacco: Former Cigarettes [facility] Utilities Answer Date Recorded In the past 12 months has th e electric, gas, oil, or water [employer] threatened to shut off services in your home? No 04/10/2024 Social Connection and Isolat ion Panel [NHANES] Answer Date Recorded In a typical week, how many times do you talk on the phone with family, friends, or neighbors? More than three times a week 04/10/2024 How often do you get togethe r with friends or relatives? More than three times a week 04/10/2024 How often do you attend [facility] or jainism services? Patient unable to answer 04/10/2024 Do you belong to any clubs o r organizations such as hindu groups, unions, fraternal or athletic groups, or school groups? Patient declined 04/10/2024 How often do you attend meet ings of the clubs or organizations you belong to? Patient declined 04/10/2024 Are you , , di vorced, , never , or living with a partner? 04/10/2024 Overall Financial Resource Strain (CARDIA) Answe r Date Recorded How hard is it for you to pa y for the very basics like food, housing, medical care, and heating? Hard 04/10/2024 PHQ-2 Answer Date Recorded PHQ-2 Total Score 0 03/12/2024 Hunger Vital Sign Answer Date Recorded Within the past 12 months, y ou worried that your food would run out before you got the money to buy more. Patient unable to answer 03/12/2024 Within the past 12 months, t he food you bought just didn't last and you didn't have money to get more. Patient unable to answer 03/12/2024 PRAPARE - Transportation Answer Date Re corded In the past 12 months, has l ack of transportation kept you from medical appointments or from getting medications? No 03/14 In the past 12 months, has l ack of transportation kept you from meetings, work, or from getting things needed for daily living? No 04/10/2024 Housing Stability Vital Sign Answer Compa e Recorded In the last 12 months, was t here a time when you were not able to pay the mortgage or rent on time? Patient unable to answer 03/12/2024 In the past 12 months, how m any times have you moved where you were living? 0 03/12/2024 At any time in the past 12 m [facility], were you homeless or living in a [place] [facility] (including now)? Patient unable to answer 03/12/2024 Personal Safety Answer Date Recorded Have you ever been in or are you currently in a harmful physical or emotional relationship or is someone making you feel afraid or unsafe? 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 04/08/2024 bacitracin 500 unit/gram ointment Apply 1 Application topically 3 (three) times a day 12/14/2023 blood glucose diagnostic (glucose blood) strip Use as directed up to four times a day. 04/08/2024 blood-glucose meter (OneTouch Ultra2 Meter) [facility] Inject 1 Units under the skin 2 (two) times a day 11/12/2023 blood-glucose meter kit Use as directed. 04/08/2024 cyclobenzaprine (FLEXERIL) 10 mg tablet Take 1 tablet (10 mg total) by mouth 3 (three) times a day as needed for muscle spasms 02/12/2024 glipiZIDE (GLUCOTROL) 10 mg tablet Take 1 tablet (10 mg total) by mouth 2 (two) times a day before breakfast and lunch 02/29/2024 glucose 4 gram chewable tablet Chew 4 tablets as directed by provider for low blood sugar. My repeat every 15 minutes as needed. 04/08/2024 hydrOXYzine (ATARAX) 50 mg tablet Take 1 tablet (50 mg total) by mouth every 4 (four) hours as needed for itching or anxiety 04/08/2024 insulin glargine (LANTUS) 100 unit/mL (3 mL) pen for injection Inject 25 Units under the skin daily 04/08/2024 insulin lispro (HumaLOG) 100 unit/mL pen for injection Inject 15 Units under the skin 3 (three) times a day with meals (plus blood glucose mg/dL 150-199: 2 units, 200-249: 4 units, 250-299: 6 units, 300-349: 8 units, 350 or greater: 10 units. Notify provider for blood glucose greater than 299 mg/dL. Max daily dose 75) Refer to After Visit Summary for Sliding Scale Insulin Instructions. 04/08/2024 lancets misc Use as directed up to 4 times a day. 04/08/2024 lidocaine (ASPERCREME) 4 % adhesive patch,medicated Place 2 patches on the skin daily 04/09/2024 meloxicam (MOBIC) 15 mg tablet Take 1 tablet (15 mg total) by mouth daily 02/29/2024 methocarbamoL (ROBAXIN) 750 mg tablet Take 1 tablet (750 mg total) by mouth 4 (four) times a day as needed for muscle spasms 20 tablet 04/08/2024 omeprazole (PriLOSEC) 40 mg capsule Take 1 capsule (40 mg total) by mouth daily 02/29/2024 OneTouch Ultra Test strip 1 each by other route 3 (three) times a day 11/15/2023 oxyCODONE (ROXICODONE) 15 mg immediate release tabletIndication s:Pain Take 0.5 tablets (7.5 mg total) by mouth every 6 (six) hours as needed for pain 15 tablet 04/18/2024 pen needle, diabetic (Pen Needle) 31 gauge x 5/16 needle Use as directed once a day 04/08/2024 pen needle, diabetic 31 gauge x 5/16 needle Use as directed 3 times a day 04/08/2024 polyethylene glycol (MIRALAX) 17 gram packet Take 1 packet (17 g total) by mouth 2 (two) times a day 04/08/2024 pregabalin (LYRICA) 150 mg capsule Take 1 capsule (150 mg total) by mouth 3 (three) times a day 90 capsule 1 04/08/2024 senna-docusate (PERICOLACE) 8.6-50 mg Take 1 tablet by mouth 2 (two) times a day 04/08/2024 documented as of this encounter Discharge Disposition Disposition Code Departure Means Destination Discharge to home or self care documented in this encounter Plan of Treatment Not on file documented as of this encounter Procedures Procedure Name Priority Date/Time Associated Diagnosis Comments XR SPINE CERVICAL 2 OR 3 VIEWS Schedule Routine, Read Routine (OP Routine) 06/06/2024 12:47 PM CDT S/P cervical spinal fusion documented in this encounter Results * XR Spine Cervical 2 or 3 Views (06/06/2024 12:47 PM CDT) Anatomical Region Laterality Modality Spine N/A Computed Radiogr aphy 06/06/2024 2:01 PM CDT Impressions 06/06/2024 2:15 PM CDT Unchanged posterior decompression and instrumented spinal fusion of C2-T2. ?? Dictated by: Ping Kenney M.D. The radiology attending physician has personally reviewed this study, and had reviewed and/or edited this written report and agrees with it. Electronically signed by: Deepak Goddard D.O. Narrative 06/06/2024 2:15 PM CDT EXAMINATION: XR SPINE CERVICAL 2 OR 3 VIEWS HISTORY: ??Neck pain FINDINGS: 3 radiographs of the cervical spine are read with comparison to 05/07/2024. Unchanged posterior decompression and instrumented spinal fusion of C2-T2. ??Instrumentation is intact. ??Prevertebral soft tissues are within normal limits. ??Vertebral body heights are maintained. Procedure Note Deepak Goddard, - 06/06/2024 EXAMINATION: XR SPINE CERVICAL 2 OR 3 VIEWS HISTORY: Neck pain FINDINGS: 3 radiographs of the cervical spine are read with comparison to 05/07/2024. Unchanged posterior decompression and instrumented spinal fusion of C2-T2. Instrumentation is intact. Prevertebral soft tissues are within normal limits. Vertebral body heights are maintained. IMPRESSION: Unchanged posterior decompression and instrumented spinal fusion of C2-T2. Dictated by: Ping Kenney M.D. The radiology attending physician has personally reviewed this study, and had reviewed and/or edited this written report and agrees with it. Electronically signed by: Deepak Goddard D.O. us Carol Monae NP IMG XR PROCEDURES Final Result documented in this encounter Visit Diagnoses Diagnosis S/P cervical spinal fusion Arthrodesis status documented in this encounter Additional Health Concerns Infection Onset Date Last Indicated Resolved Time MRSA Comment:IP reviewed 03/10/2024 [facility] Added from external infection. Source: [facility]. 07/06/2017 documented as of this encounter Care Teams Cross Tie Turner Relationship Specialty Start Date End Date No, Physician PCP - General 04/10/24 documented as of this encounter
--- OUTSIDE RECORDS SUMMARY | 2024-08-23 18:36 | XMS_ITS | Encounter Summary ---
Author Organization [facility] Healthcare Address [address] [place] [address] Care Team Providers Care Visitor Services Associate Name Role Phone No, Physician Primary Care Provider [phone] Encounter Details Date Type Department Care Team (Latest Contact Info) Description 04/10/2024 1:47 AM CDT - 04/10/2024 11:59 PM CDT Hospital Encounter [facility] Emergency, Room R Discharge Disposition: Discharge to home or self care Social History Tobacco Use Types Packs/Day Years Used Date Smoking Tobacco: Every Day Cigarettes [facility] Utilities Answer Date Recorded In the past 12 months has [employer] electric, gas, oil, or water company threatened to shut off services in your [...] week 04/10/2024 How often do you attend chur ch or spiritism services? Patient unable to answer 04/10/2024 Do you belong to any clubs o r organizations such as worship groups, unions, fraternal or athletic groups, or [...] any time in the past 12 m [facility], were you homeless or living in a [facility] (including now)? Patient unable to answer 03/12/2024 Personal Safety Answer Date Recorded Have you ever been in or are you currently in a harmful physical or emotional relationship or is someone making you feel afraid or unsafe? 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 04/08/2024 blood-glucose meter (OneTouch Ultra2 Meter) misc Inject 1 Units under the skin 2 [...] times a day 90 capsule 1 04/08/2024 semaglutide 0.25 mg or 0.5 mg (2 mg/3 mL) pen injector injectionIndicat ions:type 2 diabetes mellitus Inject 0.25 mg under the skin every 7 days 03/17/2024 senna-docusate (PERICOLACE) 8.6-50 mg Take 1 tablet by mouth 2 (two) times a day 04/08/2024 traZODone (DESYREL) 50 mg tablet Take 1 tablet (50 mg total) by mouth nightly 04/08/2024 insulin glargine (LANTUS, SEMGLEE) 100 unit/mL vial for injectionIndicat ions:Diabetes Mellitus Inject 30 Units under the skin every morning 04/09/2024 oxyCODONE (ROXICODONE) 15 mg immediate release tabletIndication s:Pain Take 0.5 tablets (7.5 mg total) by mouth every 6 (six) hours as needed for pain 15 tablet 04/08/2024 4 documented as of this encounter Discharge Disposition Disposition Code Departure Means Destination Discharge to home or self care documented in this encounter Plan of Treatment Not on file documented as of this encounter Visit Diagnoses Not on filedocumented in this encounter Additional Health Concerns Infection Onset Date Last Indicated Resolved Time MRSA Comment:IP reviewed 03/10/2024 Postive last at [facility] on 01/23/24 Added from external infection. Source: [facility] - [facility], [facility]. 07/06/2017 Ring Surveillance 03/29/2024 03/29/2024 04/18/2024 12:36 PM CDT documented as of this encounter Care Teams Visitor Services Associate Relationship Specialty Start Date End Date No, Physician PCP - General 04/10/24 documented as of this encounter
--- OUTSIDE RECORDS SUMMARY | 2024-08-23 18:36 | XMS_ITS | Encounter Summary ---
Author Organization [facility] Address [address] [facility] [address] [place] [address] Phone Care Team Providers Care Steward/Stewardess Railroad Dining Car Name Role Phone No, Physician Primary Care Provider Reason for Referral * Consultation (Routine) - Pending Review Specialty Diagnoses / Procedures Referred By Rebekah geiger Referred To Contact Physical Therapy Diagnoses S/P cervical spinal fusion Marcio Tapia MD [address] [place] [address] Phone: tel: fax: External Order Referral ID Status Reason Start Date Expiration Date Visits Requested Visits Authorized [id number] Pending Review Specialty Services Required 05/08/2024 06/07/2025 24 24 Question Answer PTRFR PT Evaluate and Treat Therapy options discussed with patient? Yes Location provided for therapy services is: Patient requested/Patient preferred Please select the performing region: External Order [171] # of visits: 24 Comments Right hand strengthen Encounter Details Date Type Department Care Team (Late st Contact Info) Description 05/07/[address] [place] [id number] [facility] Medical Office [address] [place] [address] Marcio Tapia MD [address] [place] [address] Social History Tobacco Use Types Packs/Day Years Used Date Smoking Tobacco: Every Day Cigarettes [facility] Utilities Answer Date Recorded In the past 12 months has th e electric, gas, oil, or water company threatened [...] often do you attend chur ch or uatsdin services? Patient unable to answer 04/10/2024 Do you belong to any clubs o r organizations such as anglican groups, unions, fraternal or athletic groups, or [...] any time in the past 12 m [facility], were you homeless or living in a correction (including now)? Patient unable to answer 03/12/2024 Personal Safety Answer Date Recorded Have you ever been in or are you currently in a harmful physical or emotional relationship or is someone making you feel afraid or unsafe? 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 - 06/03/2024 2:45 PM CDT Pt called and requesting to send text message for her appt details, Thanks * Telephone Encounter - Aida Mari CMA - 05/08/2024 1:13 PM CDT Attempted to speak with patient to schedule 4 wk f/u appt w MR Felix GARCIA for pt to call back to confirmappt details Appointment reminder and PT script has been mailed to address on file * Telephone Encounter - Aida Mari CMA - 05/07/2024 9:03 AM CDT Per the patient's most recent office visit, the provider's plan is as follows... Follow-up: 4 wk f/u with an [facility] In Person ... with XR Cervical AP and LAT at next appointment. Imaging/Diagnostics: XR Cervical AP and LAT Indication - 4 wk post op Protocol - General/Normal Location - [facility] Expected Time Frame - day of appt Other orders: Referral to Physical Therapy (for right hand strengthen) - Location: EXT and Referralfor Home Health - if transportation issues for PT HOME PT to be placed if patient has issues w regular PT due to transportation. Pt would like to be notified of their scheduled appointments via Phone call documented in this encounter Plan of Treatment Scheduled Referrals Name Type Priority Associated Diagnoses Order Schedule Ambulatory referral order to Physical Therapy - Outpatient Referral Routine S/P cervical spinal fusion Expected: 05/22/2024 (Approximate), Expires: 05/08/2025 documented as of this encounter Visit Diagnoses Diagnosis S/P cervical spinal fusion- Primary Arthrodesis status documented in this encounter Additional Health Concerns Infection Onset Date Last Indicated Resolved Time MRSA Comment:IP reviewed 03/10/2024 Postive last at [facility] on 01/23/24 Added from external infection. Source: [facility] - [facility]. 07/06/2017 documented as of this encounter Care Teams Steward/Stewardess Railroad Dining Car Relationship Specialty Start Date End Date No, Physician PCP - General 04/10/24 documented as of this encounter
--- OUTSIDE RECORDS SUMMARY | 2024-08-23 18:36 | XMS_ITS | Encounter Summary ---
Author Organization [facility] Address [address] [place] [address] Phone Care Team Providers Care Refrigerating Engineer Head Name Role Phone No, Physician Primary Care Provider [phone] Reason for Referral * Diagnostic Imaging (Routine) - Closed Specialty Diagnoses / Procedures Referred By Rebekah t Referred To Contact Diagnoses S/P cervical spinal fusion Procedures XR Spine Cervical 2 or 3 Views Carol Monae NP [address] [place] [address] Phone: tel: fax: [address] [address] Referral ID Status Reason Start Date Expiration Date Visits Re quested Visits Authorized [id number] Closed 05/22/2024 06/21/2025 1 1 Encounter Details Date Type Department Care Team (Late st Contact Info) Description 05/22/2024 Orders Only [facility] [address] [facility] Medical Office [address] [place] [address] Carol Monae NP [address] [place] [address] S/P cervical spinal fusion (Primary Dx) Social History Tobacco Use Types Packs/Day Years Used Date Smoking Tobacco: Every Day Cigarettes [facility] Utilities Answer Date Recorded In the past [...] often do you attend chur ch or confucianism services? 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 Procedure Note Deepak Goddard, DO - 06/06/2024 EXAMINATION: XR SPINE CERVICAL 2 [...] by: Deepak Goddard D.O. us Carol Monae ENVIRONMENTAL ASSOCIATE IMG XR PROCEDURES Final Result documented in this encounter Visit Diagnoses Diagnosis S/P cervical spinal fusion- Primary Arthrodesis status S/P cervical spinal fusion Arthrodesis status documented in this encounter Additional Health Concerns Infection Onset Date Last Indicated Resolved Time MRSA Comment:IP reviewed 03/10/2024 Postive last at [facility] on 01/23/24 Added from external infection. Source: [facility] - [facility], [facility]. 07/06/2017 documented as of this encounter Care Teams Refrigerating Engineer Head Relationship Specialty Start Date End Date No, Physician PCP - General 04/10/24 documented as of this encounter
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
--- OUTSIDE RECORDS SUMMARY | 2024-08-23 18:36 | XMS_ITS | Encounter Summary ---
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 function Outcome: Progressing Flowsheets (Taken 04/17/20242099) Maintains or returns to baseline bowel function: Assess bowel function, evaluate bowel sounds and signs of abdominal distention Goal: Maintains adequate nutritional intake Outcome: Progressing Flowsheets (Taken 04/17/20242099) Maintains adequate nutritional intake: Assist with meals as needed Problem: Infection Goal: Absence of infection during hospitalization Outcome: Progressing Flowsheets (Taken 04/17/20242099) Absence of infection during hospitalization: Monitor lab/diagnostic results * Plan of Care - Nayana Chacon RN - 04/17/2024 6:30 PM CDT Problem: Discharge Planning Goal: Understanding discharge needs will improve Outcome: Ongoing Flowsheets (Taken 04/17/2024845) Understanding of discharge needs will improve: Identify discharge learning needs (meds, wound care,etc.) Problem: Skin Integrity Impairment Risk Goal: Mobility will improve Outcome: Ongoing Flowsheets (Taken 04/17/2024845) Mobility will improve: Encourage mobilization to extent of ability, assist with range of motion as needed Goal: Understanding of ways to prevent future skin breakdown will improve Outcome: Ongoing Flowsheets (Taken 04/17/2024845) Understanding of ways to prevent future skin breakdown will improve: Discuss treatments to protect skin integrity Goal: Nutritional status will improve Outcome: Ongoing Flowsheets (Taken 04/17/2024845) Nutritional status will improve: Assess nutritional status Goal: Risk for impaired skin integrity will decrease Outcome: Ongoing Flowsheets (Taken 04/17/2024845) Risk for impaired skin integrity will decrease: Identify risk factors for impaired skin integrity and/or pressure injuries Problem: Fall Risk Goal: Ability to state ways to decrease the risk of falls will improve Outcome: Ongoing Flowsheets (Taken 04/17/2024845) Ability to state ways to decrease the risk of falls will improve: Teach fall prevention measures Goal: Will remain free from falls Outcome: Ongoing Flowsheets (Taken 04/17/2024845) Will remain free from falls: Assess risk factors for falls Goal: Will remain free from injury from falls Outcome: Ongoing Flowsheets (Taken 04/17/2024845) Will remain free from injury from falls: Provide safe environment for conduction of activities of daily living in hospital environment Problem: Neurosensory Goal: Achieves stable or improved neurological status Outcome: Ongoing Flowsheets (Taken 04/17/2024845) Achieves Stable or Improved Neurological Status: Assess for and report changes in neurological status Goal: Achieves maximal functionality and self care Outcome: Ongoing Flowsheets (Taken 04/17/2024845) Achieves maximal functionality and self care: Encourage and assist patient to increase activity andself care with guidance from therapies Problem: Lack of Knowledge Goal: Ability to develop a pain control plan will improve Outcome: Ongoing Flowsheets (Taken 04/17/2024845) Ability to develop a pain control plan will improve: Explain causes of pain and how long pain can be expected to last Problem: Medication Goal: Satisfaction with pain management medication regimen will improve Outcome: Ongoing Flowsheets (Taken 04/17/2024845) Satisfaction with pain management medication regimen will improve: Evaluate medication effects Problem: Sensory Goal: Ability to identify factors that increase pain levels will improve while working to decrease the patient's pain levels Outcome: Ongoing Flowsheets (Taken 04/17/2024845) Ability to identify factors that increase pain levels will improve while working to decrease patients pain levels: Assess pain status Problem: Coping Goal: Ability to cope will improve Outcome: Ongoing Flowsheets (Taken 04/17/2024845) Ability to cope will Improve: Assess beliefs of pain Problem: Health Behavior Goal: Identification of resources available to assist in meeting health care needs will improve Outcome: Ongoing Problem: Lack of Knowledge Goal: Ability to describe self care measures that may prevent or decrease complications related to Type 2 Diabetes will improve Outcome: Ongoing Problem: Health Nutrition Goal: Nutritional intake and knowledge related to Diabetes will improve Outcome: Ongoing Problem: Skin/Tissue Integrity Goal: Skin integrity remains intact Outcome: Ongoing Flowsheets (Taken 04/17/2024845) Skin integrity remains intact: Assess and document risk factors for pressure injury development Goal: Incisions, wounds, or drain sites healing without S/S of infection Outcome: Ongoing Flowsheets (Taken 04/17/2024845) Incision(s), Wound(s) or Drain Site(s) healing without S/S of infection: Assess and document risk factors for pressure injury development Problem: Musculoskeletal Goal: Return mobility to safest level of function Outcome: Ongoing Flowsheets (Taken 04/17/2024845) Return mobility to safest level of function: Assist with transfers and ambulation using safe patient handling equipment as needed Goal: Maintain proper alignment of affected body part Outcome: Ongoing Flowsheets (Taken 04/17/2024845) Maintain proper alignment of affected body part: Support and protect limb and body alignment per provider's orders Goal: Mobility, ROM and muscle strength will improve Outcome: Ongoing Flowsheets (Taken 04/17/2024845) Mobility, ROM and muscle strength will improve: Encourage mobilization to extent of ability Problem: Gastrointestinal Goal: Maintains or returns to baseline bowel function Outcome: Ongoing Flowsheets (Taken 04/17/2024845) Maintains or returns to baseline bowel function: Assess bowel function, evaluate bowel sounds and signs of abdominal distention Goal: Maintains adequate nutritional intake Outcome: Ongoing Flowsheets (Taken 04/17/2024845) Maintains adequate nutritional intake: Assist with meals as needed Problem: Infection Goal: Absence of infection during hospitalization Outcome: Ongoing Flowsheets (Taken 04/17/2024845) Absence of infection during hospitalization: Monitor lab/diagnostic results Goals: Clinical Goals for the Shift: will tolerate food and fluids well and will 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 Patient has been medicated for pain as requested * Plan of Care - Lay Mckeon MSW - 04/17/2024 2:12 PM CDT [facility] spoke with admissions (Elizabeth ) from [facility] in regards of referral. Elizabeth states to [facility] they are able to accept pt. For SNF pending pt.'s insurance authorization through pt.'s insurance ([facility]). [employer]PER met with pt. At outside to discuss DC plans. Pt. States to [facility] she is agreeable for [facility]. Elizabeth (Admissions) with [place], [place] is starting authorization from pt.'s insurance ([facility]) today 04/17/24. [employer] HELPER will f/u. * [facility] Note - Lay Mckeon MSW - 04/17/2024 11:16 AM CDT Images from the original note were not included. Patient Information: Meds and Admin Active Only All Meds/Most Recent Administrations acetaminophen (TYLENOL) tablet 1,000 mg [[id number]] Ordering Provider: Deya Meredith MD Status: Completed (Past End Date/Time) Ordered On: 04/10/24220 Starts/Ends: 04/10/24221 - 04/10/24235 Ordered Dose (Remaining/Total): 1,000 mg (0/1) Route: oral Frequency: Once Ordered Rate/Order Duration: -- / -- Timestamps Action Dose Route Other Information 04/10/24235 Given 1,000 mg oral Performed by: Sveta Ward RN Scanned Package: 69785-234-02, 17506-678-37 HYDROmorphone (DILAUDID) injection 1 mg [[id number]] Ordering Provider: Deya Meredith MD Status: Completed (Past End Date/Time) Ordered On: 04/10/24220 Starts/Ends: 04/10/24221 - 04/10/24237 Ordered Dose (Remaining/Total): 1 mg (0/1) Route: intravenous Frequency: Once Ordered Rate/Order Duration: -- / 2 Minutes Line Med Link Info Comment Peripheral IV 04/10/24 20 G Anterior;Left Forearm 04/10/24235 by Sveta Ward RN -- Timestamps Action Dose / Duration Route Other Information 04/10/24235 Given 1 mg 2 Minutes intravenous Performed by: Sveta Ward RN Scanned Package: 5813-8986-65 pregabalin (LYRICA) capsule 100 mg [[id number]] Ordering Provider: Deya Meredith MD Status: Dispensed Ordered On: 04/10/24223 Start: 04/10/24224 Ordered Dose (Remaining/Total): 100 mg (--/--) Route: oral Frequency: 3 times daily Ordered Rate/Order Duration: -- / -- Timestamps Action Dose Route Other Information 04/17/2447 Given 100 mg oral Performed by: Nayana Chacon RN Scanned Package: 28267-414-66 methocarbamoL (ROBAXIN) tablet 750 mg [[id number]] Ordering Provider: Deya Meredith MD Status: Dispensed Ordered On: 04/10/24223 Start: 04/10/24224 Ordered Dose (Remaining/Total): 750 mg (--/--) Route: oral Frequency: 3 times daily Ordered Rate/Order Duration: -- / -- Timestamps Action Dose Route Other Information 04/17/24846 Given 750 mg oral Performed by: Nayana Chacon RN Scanned Package: 29237-561-05, 87756-297-63 acetaminophen (TYLENOL) tablet 1,000 mg [[id number]] Ordering Provider: Deya Meredith MD Status: Dispensed Ordered On: 04/10/24224 Start: 04/10/24225 Ordered Dose (Remaining/Total): 1,000 mg (--/--) Route: oral Frequency: Every 6 hours Ordered Rate/Order Duration: -- / -- Timestamps Action Dose Route Other Information 04/17/24846 Given 1,000 mg oral Performed by: Nayana Chacon RN Scanned Package: 20547-497-21, 99551-075-55 polyethylene glycol (MIRALAX) packet 17 g [[id number]] Ordering Provider: Deya Meredith MD Status: Verified Ordered On: 04/10/24557 Start: 04/10/24557 Ordered Dose (Remaining/Total): 17 g (--/--) Route: oral Frequency: Daily PRN Ordered Rate/Order Duration: -- / -- (No admins scheduled or recorded for this medication) sodium chloride 0.9% flush 0.5-20 mL [[id number]] Ordering Provider: Zara Beckman MD Status: Verified Ordered On: 04/10/24613 Start: 04/10/24 1400 Ordered Dose (Remaining/Total): 0.5-20 mL (--/--) Route: intra-catheter Frequency: Every 8 hours Ordered Rate/Order Duration: -- / -- Admin Instructions: Flush volume based on line type and size. Timestamps Action Dose Route Other Information 04/17/24613 Given 10 mL intra-catheter Performed by: Becky Orellana RN sodium chloride 0.9% flush 0.5-20 mL [[id number]] Ordering Provider: Zara Beckman MD Status: Verified Ordered On: 04/10/24613 Start: 04/10/24613 Ordered Dose (Remaining/Total): 0.5-20 mL (--/--) Route: intra-catheter Frequency: As needed Ordered Rate/Order Duration: -- / -- Admin Instructions: Flush volume based on line type and size. Flush before and after each use. (No admins scheduled or recorded for this medication) lidocaine (LIDODERM) 5 % patch 2 patch [[id number]] Ordering Provider: Deya Meredith MD Status: Dispensed Ordered On: 04/10/24623 Start: 04/10/242099 Ordered Dose (Remaining/Total): 2 patch (--/--) Route: transdermal Frequency: Nightly Ordered Rate/Order Duration: -- / 12 Hours Admin Instructions: Do not cover the holes on the top side of the patch. Question Answer Comment Apply to affected area:: chest -- Timestamps Action Dose / Duration Route / Site Other Information 04/16/242026 Medication Applied 2 patch 12 Hours transdermal Right Shoulder Performed by: Becky Orellana RN Scanned Package: [id number], [address]-1 dextrose gel in packet 15 g [[id number]] Ordering Provider: Kelle Arauz MD Status: Verified Ordered On: 04/10/24727 Start: 04/10/24722 Ordered Dose (Remaining/Total): 15 g (--/--) Route: oral Frequency: Every 15 min PRN Ordered Rate/Order Duration: -- / -- Admin Instructions: If patient is alert and able to eat/drink, give 15 gm glucose or one juice (4 fluid ounces) NOT ORANGE JUICE. After treatment for hypoglycemia, recheck BG followed by treatment every 15 minutes until the BG is greater than 100 mg/dL. Then check BG 1 hour post-treatment. If BG isless than 100 mg/dL, repeat Q15 minute BG checks and treatment. Call MD for each episode of hypoglycemia. (No admins scheduled or recorded for this medication) dextrose (D10W) 10% bolus 250 mL [[id number]] Ordering Provider: Kelle Arauz MD Status: Verified Ordered On: 04/10/24727 Start: 04/10/24722 Ordered Dose (Remaining/Total): 250 mL (--/--) Route: intravenous Frequency: Every 15 min PRN Ordered Rate/Order Duration: 1,000 mL/hr / 15 Minutes Admin Instructions: After treatment for hypoglycemia, recheck BG followed by treatment every 15 minutes until the BG is greater than 100 mg/dL. Then check BG 1 hour post treatment. If BG is less anjr086 mg/dL, repeat Q15 minute BG checks and treatment. Call MD for each episode of hypoglycemia. (No admins scheduled or recorded for this medication) glucagon injection 1 mg [[id number]] Ordering Provider: Kelle Arauz MD Status: Verified Ordered On: 04/10/24727 Start: 04/10/24722 Ordered Dose (Remaining/Total): 1 mg (--/--) Route: intramuscular Frequency: Every 30 min PRN Ordered Rate/Order Duration: -- / -- Admin Instructions: After Glucagon is administered, position patient on side if possible to avoid aspiration. Obtain IV access. Follow glucagon treatment with glucose treatment or IV dextrose. After treatment for hypoglycemia, recheck BG followed by treatment every 15 minutes until the BG isgreater than 100 mg/dL. Then check BG 1 hour post treatment. If BG is less than 100 mg/dL, repeat Q15 minute BG checks and treatment. Call MD for each episode of hypoglycemia. Reconstitute 1 mg vial with 1 mL SWFI. Use immediately following reconstitution. (No admins scheduled or recorded for this medication) insulin glargine (LANTUS, SEMGLEE) 100 unit/mL injection 20 Units [[id number]] Ordering Provider: Kelle Arauz MD Status: Dispensed Ordered On: 04/10/24727 Start: 04/10/242099 Ordered Dose (Remaining/Total): 20 Units (--/--) Route: subcutaneous Frequency: Nightly Ordered Rate/Order Duration: -- / -- Admin Instructions: Do not hold if NPO. Do not mix with other insulins Timestamps Action Dose Route / Site Other Information 04/16/242025 Given 20 Units subcutaneous Left Upper Arm Performed by: Becky Orellana RN Scanned Package: [id number] insulin lispro (HumaLOG, ADMELOG) 100 unit/mL injection 10 Units [[id number]] Ordering Provider: Kelle Arauz MD Status: Dispensed Ordered On: 04/10/24 0728 Start: 04/10/24 0800 Ordered Dose (Remaining/Total): 10 Units (--/--) Route: subcutaneous Frequency: 3 times daily with meals Ordered Rate/Order Duration: -- / -- Admin Instructions: If BG greater than or equal to 100 mg/dL, give dose with meals when tray arrives in the room. If BG less than 100 mg/dL or history of poor intake, give after meals. If patient eating less than 50% of meal, call MD for holding or reducing meal insulin dose. Hold prandial insulin if NPO, unable to eat, or if BG less than 70 mg/dL. Timestamps Action Dose Route / Site Other Information 04/17/24 0847 Given 10 Units subcutaneous Left Upper Arm Performed by: Nayana Chacon RN Scanned Package: [id number] enoxaparin (LOVENOX) syringe 40 mg [[id number]] Ordering Provider: Radha Aguilar MD Status: Dispensed Ordered On: 04/10/24 171 Start: 04/10/24 2100 Ordered Dose (Remaining/Total): 40 mg (--/--) Route: subcutaneous Frequency: Daily (for enoxaparin) Ordered Rate/Order Duration: -- / -- Timestamps Action Dose Route / Site Other Information 04/16/242026 Given 40 mg subcutaneous Left Upper Abdomen Performed by: Becky Orellana RN Scanned Package: [id number] insulin lispro (HumaLOG, ADMELOG) 100 unit/mL injection 0-10 Units [[id number]] Ordering Provider: Geetha Mario MD Status: Dispensed Ordered On: 04/11/24 1233 Start: 04/11/24 1800 Ordered Dose (Remaining/Total): 0-10 Units (--/--) Route: subcutaneous Frequency: 3 times daily with meals Ordered Rate/Order Duration: -- / -- Admin Instructions: Blood glucose mg/dL: 149 or less: No insulin 150-199: add 2 unit 200-249: add 4 units 250-299: add 6 units 300-349: add 8 units and notify physician for adjustment of insulin orders. 350-399: add 10 units and notify physician for adjustment of insulin orders. Over 400: Notify physician for adjustment of insulin orders. Do NOT hold for NPO Status Timestamps Action Dose Route / Site Other Information 04/16/24 1701 Given 6 Units subcutaneous Left Upper Arm Performed by: Nayana Chacon RN Scanned Package: [id number] insulin lispro (HumaLOG, ADMELOG) 100 unit/mL injection 0-5 Units [[id number]] Ordering Provider: Geetha Mario MD Status: Dispensed Ordered On: 04/11/24 1233 Start: 04/11/242099 Ordered Dose (Remaining/Total): 0-5 Units (--/--) Route: subcutaneous Frequency: Nightly Ordered Rate/Order Duration: -- / -- Admin Instructions: Blood glucose mg/dL: 149 or less: No insulin 150-199: add 1 unit 200-249: add 2 units 250-299: add 3 units 300-349: add 4 units and notify physician for adjustment of insulin orders. 350-399: add 5 units and notify physician for adjustment of insulin orders. Over 400: Notify physician for adjustment of insulin orders. Do NOT hold for NPO Status Timestamps Action Dose Route / Site Other Information 04/15/242014 Given 1 Units subcutaneous Right Lower Abdomen Performed by: Marizol Quezada RN Scanned Package: [id number] oxyCODONE (ROXICODONE) tablet 7.5 mg [[id number]] Ordering Provider: Kelle Arauz MD Status: Dispensed Ordered On: 04/15/24 175 Start: 04/15/24 175 Ordered Dose (Remaining/Total): 7.5 mg (--/--) Route: oral Frequency: Every 6 hours PRN Ordered Rate/Order Duration: -- / -- Timestamps Action Dose Route Other Information 04/17/24 0952 Given 7.5 mg oral Performed by: Nayana Chacon RN Scanned Package: [id number] , Wound Info Only Active Wound Assessment Active Wound / Pressure injury / Stevenson / Negative Pressure Wound / Incision Wound 03/09/24 Toe D1, great Anterior;Left Ulceration (non-pressure ulcer) wound assessed 03/10/24--will not follow Date First Assessed 03/09/24 Site Toe D1, great Time First Assessed 0600 Days 39 Location Orientation: Anterior;Left Additional wound location identifiers: Ulceration (non-pressureulcer) wound assessed 03/10/24--will not follow Assessments Row Name 04/17/24 0845 04/16/24 1945 04/16/24 0845 04/15/24 2100 04/15/241999 Dressing Status Clean/Dry/Intact New -- New;Changed Clean/Dry/Intact Site Assessment -- Clean -- -- -- Interventions -- -- -- Cleansed -- Dressing Gauze Gauze Gauze Gauze;Other (Comment) -- Wound 03/13/24 Incision Back Date First Assessed 03/13/24 Site Back Time First Assessed 2138 Days 34 Primary Wound Type: Incision Assessments Wound 03/18/24 MASD (Moisture associated skin damage) Groin Anterior;Left Date First Assessed 03/18/24 Site Groin Time First Assessed 1703 Days 29 Present on Original Admission: N Primary Wound Type: MASD Location Orientation: Anterior;Left Assessments Wound 03/19/24 MASD (Moisture associated skin damage) Perineum Posterior redness, tender Date First Assessed 03/19/24 Site Perineum Time First Assessed 1200 Days 28 Present on Original Admission: N per pt Primary Wound Type: MASD Location Orientation: Posterior Additional wound location identifiers: redness, tender Assessments , Vitals Info Only Vital Signs 04/16 0704/17 0659 04/17 0704/17 1116 Most Recent Temp (??C) 36.1 - 36.4 36.5 36.5 (97.7) 04/17 729 Pulse 86 - 95 89 89 04/17 729 Resp 16 - 20 18 18 04/17 729 SpO2 (%) 96 - 98 94 94 04/17 729 BP 103/72 - 137/71 118/65 118/65 04/17 729 MAP (mmHg) 80 - 87 76 76 04/17 729 , Oxygen Info Only Default Flowsheet Data (most recent) Endurance Tests No documentation. 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 Problem: Discharge Planning Goal: Understanding discharge needs will improve Outcome: Progressing Flowsheets (Taken 04/16/20241944) Understanding of discharge needs will improve: Identify discharge learning needs (meds, wound care,etc.) Problem: Skin Integrity Impairment Risk Goal: Mobility will improve Outcome: Progressing Flowsheets (Taken 04/16/20241944) Mobility will improve: Encourage mobilization to extent of ability, assist with range of motion as needed Goal: Understanding of ways to prevent future skin breakdown will improve Outcome: Progressing Flowsheets (Taken 04/16/20241944) Understanding of ways to prevent future skin breakdown will improve: Discuss treatments to protect skin integrity Goal: Nutritional status will improve Outcome: Progressing Flowsheets (Taken 04/16/20241944) Nutritional status will improve: Assess nutritional status Goal: Risk for impaired skin integrity will decrease Outcome: Progressing Flowsheets (Taken 04/16/20241944) Risk for impaired skin integrity will decrease: Identify risk factors for impaired skin integrity and/or pressure injuries Problem: Fall Risk Goal: Ability to state ways to decrease the risk of falls will improve Outcome: Progressing Flowsheets (Taken 04/16/20241944) Ability to state ways to decrease the risk of falls will improve: Teach fall prevention measures Goal: Will remain free from falls Outcome: Progressing Flowsheets (Taken 04/16/20241944) Will remain free from falls: Assess risk factors for falls Goal: Will remain free from injury from falls Outcome: Progressing Flowsheets (Taken 04/16/20241944) Will remain free from injury from falls: Provide safe environment for conduction of activities of daily living in hospital environment Problem: Neurosensory Goal: Achieves stable or improved neurological status Outcome: Progressing Flowsheets (Taken 04/16/20241944) Achieves Stable or Improved Neurological Status: Assess for and report changes in neurological status Goal: Achieves maximal functionality and self care Outcome: Progressing Flowsheets (Taken 04/16/20241944) Achieves maximal functionality and self care: Encourage and assist patient to increase activity andself care with guidance from therapies Problem: Lack of Knowledge Goal: Ability to develop a pain control plan will improve Outcome: Progressing Flowsheets (Taken 04/16/20241944) Ability to develop a pain control plan will improve: Explain causes of pain and how long pain can be expected to last Problem: Medication Goal: Satisfaction with pain management medication regimen will improve Outcome: Progressing Flowsheets (Taken 04/16/20241944) Satisfaction with pain management medication regimen will improve: Evaluate medication effects Problem: Sensory Goal: Ability to identify factors that increase pain levels will improve while working to decrease the patient's pain levels Outcome: Progressing Flowsheets (Taken 04/16/20241944) Ability to identify factors that increase pain levels will improve while working to decrease patients pain levels: Assess pain status Problem: Coping Goal: Ability to cope will improve Outcome: Progressing Flowsheets (Taken 04/16/20241944) Ability to cope will Improve: Assess beliefs of pain Problem: Health Behavior Goal: Identification of resources available to assist in meeting health care needs will improve Outcome: Progressing Flowsheets (Taken 04/13/2024837 by Angie Rodriguez RN) Identification of resources available to assist in meeting health care needs will improve: Collaborate with all therapies Problem: Lack of Knowledge Goal: Ability to describe self care measures that may prevent or decrease complications related to Type 2 Diabetes will improve Outcome: Progressing Flowsheets (Taken 04/13/2024837 by Angie Rodriguez, JULISSA) Ability to describe self care measures that may prevent or decrease complications related to Type 2Diabetes will improve: Teach risks of complications of diabetes Problem: Health Nutrition Goal: Nutritional intake and knowledge related to Diabetes will improve Outcome: Progressing Flowsheets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 to assist in meeting health care needs will improve Outcome: Progressing Problem: Lack of Knowledge Goal: Ability to describe self care measures that may prevent or decrease complications related to Type 2 Diabetes will improve Outcome: Progressing Problem: Health Nutrition Goal: Nutritional intake and knowledge related to Diabetes will improve Outcome: Progressing Problem: Skin/Tissue Integrity Goal: Skin integrity remains intact Outcome: Progressing Goal: Incisions, wounds, or drain sites healing without S/S of infection Outcome: Progressing Problem: Musculoskeletal Goal: Return mobility to safest level of function Outcome: Progressing Goal: Maintain proper alignment of affected body part Outcome: Progressing Goal: Mobility, ROM and muscle strength will improve Outcome: Progressing Problem: Gastrointestinal Goal: Maintains or returns to baseline bowel function Outcome: Progressing Goal: Maintains adequate nutritional intake Outcome: Progressing Problem: Infection Goal: Absence of infection during hospitalization Outcome: Progressing Goals: Clinical Goals for the Shift: Pain adequately controlled, VS stable, labs wnl, no skin breakdown, no falls or injuries. [facility] Patient Centered Goal for Treatment: return to baseline Summary: Medicated for pain as ordered with mod relief noted. VS stable overnight. Pt turns well inbed, wore c-collar through night. Blood sugars in mid-high 100s. Continue with current plan of care, assist with ADLs as needed, notify MD as needed of changes. * Plan of Aaron - Angie Rodriguez RN - 04/12/2024 5:42 PM CDT Problem: Discharge Planning Goal: Understanding discharge needs will improve Outcome: Ongoing Problem: Skin Integrity Impairment Risk Goal: Mobility will improve Outcome: Ongoing Goal: Understanding of ways to prevent future skin breakdown will improve Outcome: Ongoing Goal: Nutritional status will improve Outcome: Ongoing Goal: Risk for impaired skin integrity will decrease Outcome: Ongoing Problem: Fall Risk Goal: Ability to state ways to decrease the risk of falls will improve Outcome: Ongoing Goal: Will remain free from falls Outcome: Ongoing Goal: Will remain free from injury from falls Outcome: Ongoing Problem: Neurosensory Goal: Achieves stable or improved neurological status Outcome: Ongoing Goal: Achieves maximal functionality and self care Outcome: Ongoing Problem: Lack of Knowledge Goal: Ability to develop a pain control plan will improve Outcome: Ongoing Problem: Medication Goal: Satisfaction with pain management medication regimen will improve Outcome: Ongoing Problem: Sensory Goal: Ability to identify factors that increase pain levels will improve while working to decrease the patient's pain levels Outcome: Ongoing Problem: Coping Goal: Ability to cope will improve Outcome: Ongoing Problem: Health Behavior Goal: Identification of resources available to assist in meeting health care needs will improve Outcome: Ongoing Problem: Lack of Knowledge Goal: Ability to describe self care measures that may prevent or decrease complications related to Type 2 Diabetes will improve Outcome: Ongoing Problem: Health Nutrition Goal: Nutritional intake and knowledge related to Diabetes will improve Outcome: Ongoing Problem: Skin/Tissue Integrity Goal: Skin integrity remains intact Outcome: Ongoing Goal: Incisions, wounds, or drain sites healing without S/S of infection Outcome: Ongoing Problem: Musculoskeletal Goal: Return mobility to safest level of function Outcome: Ongoing Goal: Maintain proper alignment of affected body part Outcome: Ongoing Goal: Mobility, ROM and muscle strength will improve Outcome: Ongoing Problem: Gastrointestinal Goal: Maintains or returns to baseline bowel function Outcome: Ongoing Goal: Maintains adequate nutritional intake Outcome: Ongoing Problem: Infection Goal: Absence of infection during hospitalization Outcome: Ongoing Goals: Clinical Goals for the Shift: Stable vital signs, adequate pain control, improved activity tolerance, free from fall or injury. [employer] Specialist Patient Centered Goal for Treatment: return to baseline Summary: Took over care of pt at approximately 1400. Pt had complaints of pain, PRN and scheduled medications given for relief. Wound dressing change done this shift. Pt free of falls and injuries since receiving care. Pt currently resting comfortably in bed with call light within reach. * Plan of Care - Kalpana Jackson RN - 04/11/2024 3:33 PM CDT Problem: Discharge Planning Goal: Understanding discharge needs will improve Outcome: Progressing Flowsheets (Taken 04/11/2024425 by Haley Pablo RN) Understanding of discharge needs will improve: Discuss information regarding discharge instructions Problem: Skin Integrity Impairment Risk Goal: Mobility will improve Outcome: Progressing Flowsheets (Taken 04/11/2024425 by Haley Pablo, JULISSA) Mobility will improve: Encourage turning and repositioning, assist as needed Goal: Understanding of ways to prevent future skin breakdown will improve Outcome: Progressing Flowsheets (Taken 04/11/2024425 by Haley Pablo, JULISSA) Understanding of ways to prevent future skin breakdown will improve: Discuss treatments to protect skin integrity Goal: Nutritional status will improve Outcome: Progressing Flowsheets (Taken 04/11/2024425 by Haley Pablo, JULISSA) Nutritional status will improve: Monitor intake and output Goal: Risk for impaired skin integrity will decrease Outcome: Progressing Flowsheets (Taken 04/11/2024425 by Haley Pablo, JULISSA) Risk for impaired skin integrity will decrease: Identify risk factors for impaired skin integrity and/or pressure injuries Problem: Fall Risk Goal: Ability to state ways to decrease the risk of falls will improve Outcome: Progressing Flowsheets (Taken 04/11/2024425 by Haley Pablo, JULISSA) Ability to state ways to decrease the risk of falls will improve: Teach fall prevention measures Goal: Will remain free from falls Outcome: Progressing Flowsheets (Taken 04/11/2024425 by Haley Pablo RN) Will remain free from falls: Assess risk factors for falls Goal: Will remain free from injury from falls Outcome: Progressing Flowsheets (Taken 04/11/2024425 by Haley Pablo RN) Will remain free from injury from falls: Provide safe environment for conduction of activities of daily living in hospital environment Problem: Neurosensory Goal: Achieves stable or improved neurological status Outcome: Progressing Meganharman (Taken 04/11/2024425 by Haley Pablo RN) Achieves Stable or Improved Neurological Status: Assess for and report changes in neurological status Goal: Achieves maximal functionality and self care Outcome: Progressing Flowsheets (Taken 04/10/2024 1359) Achieves maximal functionality and self care: Monitor swallowing and airway patency with patient fatigue and changes in neurological status Encourage and assist patient to increase activity and self care with guidance from therapies Problem: Lack of Knowledge Goal: Ability to develop a pain control plan will improve Outcome: Progressing Flowsharman (Taken 04/11/2024425 by Haley Pablo RN) Ability to develop a pain control plan will improve: Educate pain scale for assessing level of pain Problem: Medication Goal: Satisfaction with pain management medication regimen will improve Outcome: Progressing Flowsharman (Taken 04/11/2024425 by Haley Pablo RN) Satisfaction with pain management medication regimen will improve: Evaluate medication effects Problem: Sensory Goal: Ability to identify factors that increase pain levels will improve while working to decrease the patient's pain levels Outcome: Progressing Flowsharman (Taken 04/11/2024425 by Haley Pablo, RN) Ability to identify factors that increase pain levels will improve while working to decrease patients pain levels: Assess pain status Problem: Coping Goal: Ability to cope will improve Outcome: Progressing Flowsharman (Taken 04/11/2024425 by Haley Pablo RN) Ability to cope will Improve: Provide emotional support Problem: Health Behavior Goal: Identification of resources available to assist in meeting health care needs will improve Outcome: Progressing Flowsharman (Taken 04/11/2024425 by Haley Pablo, JULISSA) Identification of resources available to assist in meeting health care needs will improve: Collaborate with all therapies Goals: Clinical Goals for the Shift: vss, safety, comfort [employer] Specialist Patient Centered Goal for Treatment: regain and keep control of pain, re establish goals with PT, discharge to an approprate rehab facility who can also maintain contol over pain Summary: No injuries this shift. Up in wheelchair most of the day. C- collar and clam shell type ofback brace in place when up. Medicated for pain with scheduled and PRN medications. To complete dressing to great toe. Working well with all therapy. Tolerating diet well. FSBS as ordered. Sliding scale parameters adjusted. * [facility] Note - Lay Mckeon MSW - 04/11/2024 12:05 PM CDT Images from the original note were not included. Patient Information: Meds and Admin Active Only All Meds/Most Recent Administrations acetaminophen (TYLENOL) tablet 1,000 mg [[id number]] Ordering Provider: Deya Meredith MD Status: Completed (Past End Date/Time) Ordered On: 04/10/24220 Starts/Ends: 04/10/24221 - 04/10/24235 Ordered Dose (Remaining/Total): 1,000 mg (0/1) Route: oral Frequency: Once Ordered Rate/Order Duration: -- / -- Timestamps Action Dose Route Other Information 04/10/24235 Given 1,000 mg oral Performed by: Sveta Ward RN Scanned Package: 96303-827-40, 24400-606-36 HYDROmorphone (DILAUDID) injection 1 mg [[id number]] Ordering Provider: Deya Meredith MD Status: Completed (Past End Date/Time) Ordered On: 04/10/24220 Starts/Ends: 04/10/24221 - 04/10/24237 Ordered Dose (Remaining/Total): 1 mg (0/1) Route: intravenous Frequency: Once Ordered Rate/Order Duration: -- / 2 Minutes Line Med Link Info Comment Peripheral IV 04/10/24 20 G Anterior;Left Forearm 04/10/24235 by Sveta Ward RN -- Timestamps Action Dose / Duration Route Other Information 04/10/24235 Given 1 mg 2 Minutes intravenous Performed by: Sveta Ward RN Scanned Package: 9765-0668-41 pregabalin (LYRICA) capsule 100 mg [[id number]] Ordering Provider: Deya Meredith MD Status: Dispensed Ordered On: 04/10/24223 Start: 04/10/24224 Ordered Dose (Remaining/Total): 100 mg (--/--) Route: oral Frequency: 3 times daily Ordered Rate/Order Duration: -- / -- Timestamps Action Dose Route Other Information 04/11/24800 Given 100 mg oral Performed by: Kalpana Jackson RN Scanned Package: 36182-642-99 methocarbamoL (ROBAXIN) tablet 750 mg [[id number]] Ordering Provider: Deya Meredith MD Status: Dispensed Ordered On: 04/10/24223 Start: 04/10/24224 Ordered Dose (Remaining/Total): 750 mg (--/--) Route: oral Frequency: 3 times daily Ordered Rate/Order Duration: -- / -- Timestamps Action Dose Route Other Information 04/11/24800 Given 750 mg oral Performed by: Kalpana Jackson RN Scanned Package: 60779-422-70, 39925-135-91 oxyCODONE (ROXICODONE) tablet 7.5 mg [[id number]] Ordering Provider: Deya Meredith MD Status: Dispensed Ordered On: 04/10/24223 Start: 04/10/24222 Ordered Dose (Remaining/Total): 7.5 mg (--/--) Route: oral Frequency: Every 8 hours PRN Ordered Rate/Order Duration: -- / -- Timestamps Action Dose Route Other Information 04/11/24800 Given 7.5 mg oral Performed by: Kalpana Jackson RN Scanned Package: 73316-132-39, 15277-219-46 acetaminophen (TYLENOL) tablet 1,000 mg [[id number]] Ordering Provider: Deya Meredith MD Status: Dispensed Ordered On: 04/10/24224 Start: 04/10/24225 Ordered Dose (Remaining/Total): 1,000 mg (--/--) Route: oral Frequency: Every 6 hours Ordered Rate/Order Duration: -- / -- Timestamps Action Dose Route Other Information 04/11/24 0801 Given 1,000 mg oral Performed by: Kalpana Jackson RN Scanned Package: 30222-012-07, 29053-391-60 polyethylene glycol (MIRALAX) packet 17 g [[id number]] Ordering Provider: Deya Meredith MD Status: Verified Ordered On: 04/10/24557 Start: 04/10/24557 Ordered Dose (Remaining/Total): 17 g (--/--) Route: oral Frequency: Daily PRN Ordered Rate/Order Duration: -- / -- (No admins scheduled or recorded for this medication) sodium chloride 0.9% flush 0.5-20 mL [[id number]] Ordering Provider: Zara Beckman MD Status: Verified Ordered On: 04/10/24613 Start: 04/10/24 1400 Ordered Dose (Remaining/Total): 0.5-20 mL (--/--) Route: intra-catheter Frequency: Every 8 hours Ordered Rate/Order Duration: -- / -- Admin Instructions: Flush volume based on line type and size. Timestamps Action Dose Route Other Information 04/10/242151 Given 10 mL intra-catheter Performed by: Haley Pablo RN Scanned Package: [id number] sodium chloride 0.9% flush 0.5-20 mL [[id number]] Ordering Provider: Zara Beckman MD Status: Verified Ordered On: 04/10/24613 Start: 04/10/24613 Ordered Dose (Remaining/Total): 0.5-20 mL (--/--) Route: intra-catheter Frequency: As needed Ordered Rate/Order Duration: -- / -- Admin Instructions: Flush volume based on line type and size. Flush before and after each use. (No admins scheduled or recorded for this medication) lidocaine (LIDODERM) 5 % patch 2 patch [[id number]] Ordering Provider: Deya Meredith MD Status: Dispensed Ordered On: 04/10/24623 Start: 04/10/24 2100 Ordered Dose (Remaining/Total): 2 patch (--/--) Route: transdermal Frequency: Nightly Ordered Rate/Order Duration: -- / 12 Hours Admin Instructions: Do not cover the holes on the top side of the patch. Question Answer Comment Apply to affected area:: chest -- Timestamps Action Dose / Duration Route / Site Other Information 04/10/242145 Medication Applied 2 patch 12 Hours transdermal Right Arm Performed by: Haley Pablo RN Comments: right arm right back/shoulder Scanned Package: [address]-3 dextrose gel in packet 15 g [[id number]] Ordering Provider: Kelle Arauz MD Status: Verified Ordered On: 04/10/24727 Start: 04/10/24722 Ordered Dose (Remaining/Total): 15 g (--/--) Route: oral Frequency: Every 15 min PRN Ordered Rate/Order Duration: -- / -- Admin Instructions: If patient is alert and able to eat/drink, give 15 gm glucose or one juice (4 fluid ounces) NOT ORANGE JUICE. After treatment for hypoglycemia, recheck BG followed by treatment every 15 minutes until the BG is greater than 100 mg/dL. Then check BG 1 hour post-treatment. If BG isless than 100 mg/dL, repeat Q15 minute BG checks and treatment. Call MD for each episode of hypoglycemia. (No admins scheduled or recorded for this medication) dextrose (D10W) 10% bolus 250 mL [[id number]] Ordering Provider: Kelle Arauz MD Status: Verified Ordered On: 04/10/24727 Start: 04/10/24722 Ordered Dose (Remaining/Total): 250 mL (--/--) Route: intravenous Frequency: Every 15 min PRN Ordered Rate/Order Duration: 1,000 mL/hr / 15 Minutes Admin Instructions: After treatment for hypoglycemia, recheck BG followed by treatment every 15 minutes until the BG is greater than 100 mg/dL. Then check BG 1 hour post treatment. If BG is less [id number] mg/dL, repeat Q15 minute BG checks and treatment. Call MD for each episode of hypoglycemia. (No admins scheduled or recorded for this medication) glucagon injection 1 mg [[id number]] Ordering Provider: Kelle Arauz MD Status: Verified Ordered On: 04/10/24727 Start: 04/10/24722 Ordered Dose (Remaining/Total): 1 mg (--/--) Route: intramuscular Frequency: Every 30 min PRN Ordered Rate/Order Duration: -- / -- Admin Instructions: After Glucagon is administered, position patient on side if possible to avoid aspiration. Obtain IV access. Follow glucagon treatment with glucose treatment or IV dextrose. After treatment for hypoglycemia, recheck BG followed by treatment every 15 minutes until the BG isgreater than 100 mg/dL. Then check BG 1 hour post treatment. If BG is less than 100 mg/dL, repeat Q15 minute BG checks and treatment. Call MD for each episode of hypoglycemia. Reconstitute 1 mg vial with 1 mL SWFI. Use immediately following reconstitution. (No admins scheduled or recorded for this medication) insulin glargine (LANTUS, SEMGLEE) 100 unit/mL injection 20 Units [[id number]] Ordering Provider: Kelle Arauz MD Status: Dispensed Ordered On: 04/10/24727 Start: 04/10/242099 Ordered Dose (Remaining/Total): 20 Units (--/--) Route: subcutaneous Frequency: Nightly Ordered Rate/Order Duration: -- / -- Admin Instructions: Do not hold if NPO. Do not mix with other insulins Timestamps Action Dose Route / Site Other Information 04/10/242146 Given 20 Units subcutaneous Left Lower Abdomen Performed by: Haley Pablo RN Scanned Package: [id number] insulin lispro (HumaLOG, ADMELOG) 100 unit/mL injection 10 Units [[id number]] Ordering Provider: Kelle Arauz MD Status: Dispensed Ordered On: 04/10/24727 Start: 04/10/24 08 Ordered Dose (Remaining/Total): 10 Units (--/--) Route: subcutaneous Frequency: 3 times daily with meals Ordered Rate/Order Duration: -- / -- Admin Instructions: If BG greater than or equal to 100 mg/dL, give dose with meals when tray arrives in the room. If BG less than 100 mg/dL or history of poor intake, give after meals. If patient eating less than 50% of meal, call MD for holding or reducing meal insulin dose. Hold prandial insulin if NPO, unable to eat, or if BG less than 70 mg/dL. Timestamps Action Dose Route / Site Other Information 04/11/24 1153 Given 10 Units subcutaneous Left Upper Arm Performed by: Kalpana Jackson RN Scanned Package: [id number] insulin lispro (HumaLOG, ADMELOG) 100 unit/mL injection 0-5 Units [[id number]] Ordering Provider: Kelle Arauz MD Status: Dispensed Ordered On: 04/10/24727 Start: 04/10/24 0800 Ordered Dose (Remaining/Total): 0-5 Units (--/--) Route: subcutaneous Frequency: 3 times daily with meals Ordered Rate/Order Duration: -- / -- Admin Instructions: Blood glucose mg/dL: 149 or less: No insulin 150-199: add 1 unit 200-249: add 2 units 250-299: add 3 units 300-349: add 4 units and notify physician for adjustment of insulin orders. 350-399: add 5 units and notify physician for adjustment of insulin orders. Over 400: Notify physician for adjustment of insulin orders. Do NOT hold for NPO Status Timestamps Action Dose Route / Site Other Information 04/11/24 115 Given 1 Units subcutaneous Left Upper Arm Performed by: Kalpana Jackson RN Scanned Package: [id number] insulin lispro (HumaLOG, ADMELOG) 100 unit/mL injection 0-4 Units [[id number]] Ordering Provider: Kelle Arauz MD Status: Dispensed Ordered On: 04/10/24727 Start: 04/10/24 2100 Ordered Dose (Remaining/Total): 0-4 Units (--/--) Route: subcutaneous Frequency: Nightly Ordered Rate/Order Duration: -- / -- Admin Instructions: Blood glucose mg/dL: 199 or less: No insulin 200-249: add 1 unit 250-299: add 2 units 300-349: add 3 units and notify physician for adjustment of insulin orders. 350- 399: add 4 units and notify physician for adjustment of insulin orders. Over 400: Notify physician for adjustment of insulin orders. Do NOT hold for NPO Status Timestamps Action Dose Route / Site Other Information 04/10/24 2145 Given 1 Units subcutaneous Left Lower Abdomen Performed by: Haley Pablo RN Scanned Package: [id number] enoxaparin (LOVENOX) syringe 40 mg [[id number]] Ordering Provider: Radha Aguilar MD Status: Dispensed Ordered On: 04/10/24 1713 Start: 04/10/24 2100 Ordered Dose (Remaining/Total): 40 mg (--/--) Route: subcutaneous Frequency: Daily (for enoxaparin) Ordered Rate/Order Duration: -- / -- Timestamps Action Dose Route / Site Other Information 04/10/24 2145 Given 40 mg subcutaneous Left Lower Abdomen Performed by: Haley Pablo RN Scanned Package: 29409-760-03 , Wound Info Only Active Wound Assessment Active Wound / Pressure injury / Stevenson / Negative Pressure Wound / Incision Wound 03/09/24 Toe D1, great Anterior;Left Ulceration (non-pressure ulcer) wound assessed 03/10/24--will not follow Date First Assessed 03/09/24 Site Toe D1, great Time First Assessed 0600 Days 33 Location Orientation: Anterior;Left Additional wound location identifiers: Ulceration (non-pressureulcer) wound assessed 03/10/24--will not follow Wound 03/13/24 Incision Back Date First Assessed 03/13/24 Site Back Time First Assessed 2138 Days 28 Primary Wound Type: Incision Wound 03/18/24 MASD (Moisture associated skin damage) Groin Anterior;Left Date First Assessed 03/18/24 Site Groin Time First Assessed 1703 Days 23 Present on Original Admission: N Primary Wound Type: MASD Location Orientation: Anterior;Left Wound 03/19/24 MASD (Moisture associated skin damage) Perineum Posterior redness, tender Date First Assessed 03/19/24 Site Perineum Time First Assessed 1200 Days 23 Present on Original Admission: N per pt Primary Wound Type: MASD Location Orientation: Posterior Additional wound location identifiers: redness, tender Wound 03/22/24 Blister Flank Right;Lower;Lateral Date First Assessed 03/22/24 Site Flank Time First Assessed 0900 Days 20 Primary Wound Type: Blister Location Orientation: Right;Lower;Lateral , Vitals Info Only Vital Signs 04/10 0704/11 0659 04/11 0704/11 1205 Most Recent Temp (??C) 36.2 - 36.7 36.2 36.2 (97.2) 04/11 801 Pulse 81 - 99 89 89 04/11 801 Resp 16 - 18 18 18 04/11 801 SpO2 (%) 98 98 98 04/11 801 BP 120/71 - 136/88 130/78 130/78 04/11 801 , Oxygen Info Only Default Flowsheet Data (most recent) Endurance Tests No documentation. Default Flowsheet Data (Last 48 Hours) Oxygen Row Name 04/11/24 0805 04/11/24 0801 04/10/24 2318 04/10/24 1357 04/10/24 0817 Oxygen Therapy/Pulse Ox O2 Therapy None (Room air) None (Room air) None (Room air) None (Room air) None (Room air) SpO2 -- 98 % -- 98 % 98 % Patient Activity At rest -- -- -- -- Row Name 04/10/24 0620 04/10/24 0555 04/10/24 0215 Oxygen Therapy/Pulse Ox O2 Therapy None (Room air) -- None (Room air) SpO2 98 % 95 % 96 % * Plan of Care - Lay Mckeon MSW - 04/11/2024 12:00 PM CDT VENEER CLIPPER HELPER met with pt. At bedside to discuss DC plans. VENEER CLIPPER HELPER states PT and OT are recommending inpatient acute rehab. Pt. States she is agreeable for inpatient acute rehab. Pt. Voiced she would like a referral sent to [facility] in [place], [place] for acute rehab. VENEER CLIPPER HELPER will send a referral to [facility] in [place], [place]. Pt. States if she can't get into acute rehab then she would like to go to a SNF where her daughter (Malinda) lives in [place], [place] or [place], [place]. VENEER CLIPPER HELPER will f/u. * Plan of Care - Haley Pablo RN - 04/11/2024 4:28 AM CDT Problem: Discharge Planning Goal: Understanding discharge needs will improve Outcome: Ongoing Flowsheets (Taken 04/11/2024425) Understanding of discharge needs will improve: Discuss information regarding discharge instructions Problem: Skin Integrity Impairment Risk Goal: Mobility will improve Outcome: Ongoing Flowsheets (Taken 04/11/2024425) Mobility will improve: Encourage turning and repositioning, assist as needed Goal: Understanding of ways to prevent future skin breakdown will improve Outcome: Ongoing Flowsheets (Taken 04/11/2024425) Understanding of ways to prevent future skin breakdown will improve: Discuss treatments to protect skin integrity Goal: Nutritional status will improve Outcome: Ongoing Flowsheets (Taken 04/11/2024425) Nutritional status will improve: Monitor intake and output Goal: Risk for impaired skin integrity will decrease Outcome: Ongoing Flowsheets (Taken 04/11/2024425) Risk for impaired skin integrity will decrease: Identify risk factors for impaired skin integrity and/or pressure injuries Problem: Fall Risk Goal: Ability to state ways to decrease the risk of falls will improve Outcome: Ongoing Flowsheets (Taken 04/11/2024425) Ability to state ways to decrease the risk of falls will improve: Teach fall prevention measures Goal: Will remain free from falls Outcome: Ongoing Flowsheets (Taken 04/11/2024425) Will remain free from falls: Assess risk factors for falls Goal: Will remain free from injury from falls Outcome: Ongoing Flowsheets (Taken 04/11/2024425) Will remain free from injury from falls: Provide safe environment for conduction of activities of daily living in hospital environment Problem: Neurosensory Goal: Achieves stable or improved neurological status Outcome: Ongoing Flowsheets (Taken 04/11/2024425) Achieves Stable or Improved Neurological Status: Assess for and report changes in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 POCT GLUCOSE DEVICE Routine 04/14/2024 8 :06 AM CDT POCT GLUCOSE DEVICE Routine 04/14/2024 2 :42 AM CDT POCT GLUCOSE DEVICE Routine 04/13/2024 1 0:32 PM CDT POCT GLUCOSE DEVICE Routine 04/13/2024 4 :35 PM CDT POCT GLUCOSE DEVICE Routine 04/13/2024 1 1:39 AM CDT POCT GLUCOSE DEVICE Routine 04/13/2024 8 :25 AM CDT POCT GLUCOSE DEVICE Routine 04/13/2024 2 :39 AM CDT POCT GLUCOSE DEVICE Routine 04/12/2024 9 :00 PM CDT POCT GLUCOSE DEVICE Routine 04/12/2024 4 :48 PM CDT POCT GLUCOSE DEVICE Routine 04/12/2024 1 2:15 PM CDT POCT GLUCOSE DEVICE Routine 04/12/2024 8 :18 AM CDT POCT GLUCOSE DEVICE Routine 04/12/2024 2 :11 AM CDT POCT GLUCOSE DEVICE Routine 04/11/2024 8 :46 PM CDT POCT GLUCOSE DEVICE Routine 04/11/2024 5 :00 PM CDT POCT GLUCOSE DEVICE Routine 04/11/2024 1 1:16 AM CDT POCT GLUCOSE DEVICE Routine 04/11/2024 8 :12 AM CDT POCT GLUCOSE DEVICE Routine 04/11/2024 2 :03 AM CDT POCT GLUCOSE DEVICE Routine 04/10/2024 9 :40 PM CDT POCT GLUCOSE DEVICE Routine 04/10/2024 5 :03 PM CDT POCT GLUCOSE DEVICE Routine 04/10/2024 1 0:59 AM CDT POCT GLUCOSE DEVICE Routine 04/10/2024 8 :50 AM CDT EGFR STAT 04/10/2024 4:23 AM CDT DIFFERENTIAL AUTO STAT 04/10/2024 4:2 3 AM CDT CBC WITH AUTO DIFFERENTIAL STAT 04/10/2024 4:23 AM CDT COMPREHENSIVE METABOLIC PANEL STAT 04/10/2024 4:23 AM CDT POCT GLUCOSE DEVICE Routine 04/10/2024 3 :00 AM CDT documented in this encounter Results * POCT glucose (04/18/2024 11:42 AM CDT) Glucose, POC 150 70 - 199 mg/dL Blood 04/18/2024 11:4 2 AM CDT 04/18/2024 11:42 AM CDT us Ho Miller Jr., MD LAB POCT ORDERABLES - DEVICE Final Result [facility] ([place]) [address] [place] [address] [email or web address] [address] * (ABNORMAL) POCT glucose (04/18/2024 7:43 AM CDT) Glucose, POC 224(H) 70 - 199 mg/dL Blood 04/18/2024 7:43 AM CDT 04/18/2024 7:43 AM CDT us Ho Miller Jr., MD LAB POCT ORDERABLES - DEVICE Final Result [facility] ([place]) 1 [facility] [place] [address] * POCT glucose (04/18/2024 2:09 AM CDT) Glucose, POC 186 70 - 199 mg/dL Blood 04/18/2024 2:09 AM CDT 04/18/2024 2:09 AM CDT Ho Miller Jr., MD LAB POCT ORDERABLES - DEVICE Final Result Performing Organization Address [facility] de Phone Number [facility] ([place]) 1 [facility] [place] [address] * POCT glucose (04/17/2024 8:28 PM CDT) Glucose, POC 195 70 - 199 mg/dL Blood 04/17/2024 8:28 PM CDT 04/17/2024 8:28 PM CDT Ho Miller Jr., MD LAB POCT ORDERABLES - DEVICE Final Result Performing Organization Address [facility] de Phone Number [facility] ([place]) 1 [facility] [place] [address] * (ABNORMAL) POCT glucose (04/17/2024 4:25 PM CDT) Glucose, POC 239(H) 70 - 199 mg/dL Blood 04/17/2024 4:25 PM CDT 04/17/2024 4:25 PM CDT Ho Miller Jr., MD LAB POCT ORDERABLES - DEVICE Final Result Performing Organization Address [facility] de Phone Number [facility] ([place]) 1 [facility] [place] [address] * POCT glucose (04/17/2024 11:47 AM CDT) Glucose, POC 199 70 - 199 mg/dL Blood 04/17/2024 11:4 7 AM CDT 04/17/2024 11:47 AM CDT Ho Miller Jr., MD LAB POCT ORDERABLES - DEVICE Final Result [facility] ([place]) 1 [facility] [place] [address] * POCT glucose (04/17/2024 7:31 AM CDT) Glucose, POC 144 70 - 199 mg/dL Blood 04/17/2024 7:31 AM CDT 04/17/2024 7:31 AM CDT us Ho Miller Jr., MD LAB POCT ORDERABLES - DEVICE Final Result Performing Organization Address [facility] Co de Phone Number [facility] ([place]) 1 [facility] [place] [address] * POCT glucose (04/17/2024 1:57 AM CDT) Glucose, POC 144 70 - 199 mg/dL Blood 04/17/2024 1:57 AM CDT 04/17/2024 1:57 AM CDT us Ho Miller Jr., MD LAB POCT ORDERABLES - DEVICE Final Result Performing Organization Address City/[facility]/ZIP Co de Phone Number [facility] ([place]) 1 [facility] [place] [address] * POCT glucose (04/16/2024 8:03 PM CDT) Glucose, POC 135 70 - 199 mg/dL Blood 04/16/2024 8:03 PM CDT 04/16/2024 8:03 PM CDT Ho Miller Jr., MD LAB POCT ORDERABLES - DEVICE Final Result [facility] ([place]) 1 [facility] [place] [address] * (ABNORMAL) POCT glucose (04/16/2024 4:30 PM CDT) Glucose, POC 264(H) 70 - 199 mg/dL Blood 04/16/2024 4:30 PM CDT 04/16/2024 4:30 PM CDT Ho Miller Jr., MD LAB POCT ORDERABLES - DEVICE Final Result Performing Organization Address City/[facility]/ZIP Co de Phone Number [facility] ([place]) 1 [facility] [place] [address] * POCT glucose (04/16/2024 11:36 AM CDT) Glucose, POC 146 70 - 199 mg/dL Blood 04/16/2024 11:3 6 AM CDT 04/16/2024 11:36 AM CDT us Ho Miller Jr., MD LAB POCT ORDERABLES - DEVICE Final Result Performing Organization Address [facility] de Phone Number [facility] ([place]) 1 [facility] [place] [address] * POCT glucose (04/16/2024 7:40 AM CDT) Glucose, POC 161 70 - 199 mg/dL Blood 04/16/2024 7:40 AM CDT 04/16/2024 7:40 AM CDT Ho Miller Jr., MD LAB POCT ORDERABLES - DEVICE Final Result Performing Organization Address [facility] Co de Phone Number [facility] ([place]) 1 [facility] [place] [address] * POCT glucose (04/16/2024 2:03 AM CDT) Glucose, POC 149 70 - 199 mg/dL Blood 04/16/2024 2:03 AM CDT 04/16/2024 2:03 AM CDT Ho Miller Jr., MD LAB POCT ORDERABLES - DEVICE Final Result Performing Organization Address [facility] Co de Phone Number [facility] ([place]) 1 [facility] [place] [address] * POCT glucose (04/15/2024 8:03 PM CDT) Glucose, POC 160 70 - 199 mg/dL Blood 04/15/2024 8:03 PM CDT 04/15/2024 8:03 PM CDT us oH Miller Jr., MD LAB POCT ORDERABLES - DEVICE Final Result Performing Organization Address [facility] Phone Number [facility] ([place]) 1 [facility] [place] [address] * POCT glucose (04/15/2024 5:07 PM CDT) Glucose, POC 137 70 - 199 mg/dL Blood 04/15/2024 5:07 PM CDT 04/15/2024 5:07 PM CDT us Ho Miller Jr., MD LAB POCT ORDERABLES - DEVICE Final Result Performing Organization Address [facility] Co de Phone Number [facility] ([place]) 1 [facility] [place] [address] * POCT glucose (04/15/2024 11:44 AM CDT) Glucose, POC 181 70 - 199 mg/dL Blood 04/15/2024 11:4 4 AM CDT 04/15/2024 11:44 AM CDT Ho Miller Jr., MD LAB POCT ORDERABLES - DEVICE Final Result Performing Organization Address [facility] de Phone Number [facility] ([place]) 1 [facility] [place] [address] * eGFR (04/15/2024 9:33 AM CDT) [facility] eGFR >90 >=60 mL/min/1. 73 m2 Comment: [...] LAB BLOOD ORDERABLE S Final Result [facility] ([place]) 1 [facility] [place] [address] * Differential, auto (04/15/2024 9:33 AM CDT) Pathologist [facility] Neutrophil abs 1.9 1.5 - 6.5 K/cumm Imm gran abs 0.0 0.0 - 0.1 K/cumm [facility] ([place]) Lymphocyte abs 1.0 0.8 - 3.3 K/cumm [facility] ([place]) Monocyte abs 0.3 0.2 - 0.8 K/cumm [facility] ([place]) Eosinophil abs 0.1 0.0 - 0.5 K/cumm [facility] ([place]) Basophil abs 0.0 0.0 - 0.1 K/cumm [facility] ([place]) Neutrophil pct 56.6 % [facility] ([place]) Comment: Interpretive Data Percent cell count reference ranges are not reported, since discordance with absolute values may lead to misinterpretation of CBC data. Current Interpretive Data was last revised on 2017. Imm gran pct 0.0 % [facility] ([place]) Comment: Interpretive Data Percent cell count reference ranges are not reported, since discordance with absolute values may lead to misinterpretation of CBC data. Current Interpretive Data was last revised on 2017. Lymphocyte pct 30.6 % [facility] ([place]) Comment: Interpretive Data Percent cell count reference ranges are not reported, since discordance with absolute values may lead to misinterpretation of CBC data. Current Interpretive Data was last revised on 2017. Monocyte pct 9.2 % [facility] ([place]) Comment: Interpretive Data Percent cell count reference ranges are not reported, since discordance with absolute values may lead to misinterpretation of CBC data. Current Interpretive Data was last revised on 2017. Eosinophil pct 3.0 % [facility] ([place]) Comment: Interpretive Data Percent cell count reference ranges are not reported, since discordance with absolute values may lead to misinterpretation of CBC data. Current Interpretive Data was last revised on 2017. Basophil pct 0.6 % [facility] ([place]) Comment: Interpretive Data Percent cell count reference ranges are not reported, since discordance with absolute values may lead to misinterpretation of CBC data. Current Interpretive Data was last revised on 2017. Blood 04/15/2024 9:33 AM CDT 04/15/2024 9:38 AM CDT us Ho Miller Jr., MD LAB BLOOD ORDERABLE S Final Result [facility] ([place]) 1 [facility] [email or web address] [address] * (ABNORMAL) Basic metabolic panel (04/15/2024 9:33 AM CDT) Sodium 135 135 - 145 mmol/L Potassium, pl 4.1 3.3 - 4.9 mmol/L [facility] ([place]) Chloride 102 97 - 110 mmol/L [facility] ([place]) CO2 22 22 - 32 mmol/L [facility] ([place]) Anion gap 11 2 - 15 mmol/L [facility] ([place]) BUN 11 6 - 25 mg/dL [facility] ([place]) Creatinine 0.49(L) 0.60 - 1.10 mg/dL [facility] ([place]) Glucose 267(H) 70 - 199 mg/dL [facility] ([place]) Comment: Interpretive Data Fasting glucose >/= 126 mg/dl is diagnostic for diabetes. ?? Fasting is defined as no caloric intake for at least 8 hours. Fasting glucose between 100 mg/dl to 125 mg/dl is diagnostic of prediabetes. In a patient with classic symptoms of hyperglycemia or hyperglycemic crisis, a random glucose >/= 200 mg/dl is diagnostic for diabetes. In the absence of unequivocal hyperglycemia, results should be confirmed by repeat testing. The classification and Diagnosis of Diabetes Diabetes Care 2021; 46: S19-S40. Current interpretive data was last revised 2022. Calcium 8.9 8.5 - 10.3 mg/dL [facility] ([place]) Blood 04/15/2024 9:33 AM CDT 04/15/2024 9:38 AM CDT us Ho Miller Jr., MD LAB BLOOD ORDERABLE S Final Result [facility] ([place]) 1 [facility] [place] [address] * (ABNORMAL) CBC with auto differential (04/15/2024 9:33 AM CDT) WBC 3.4(L) 3.8 - 9.9 K/cumm Hgb 12.0 11.9 - 15.5 g/dL [facility] ([place]) Hct 36.0 35.6 - 45.5 % [facility] ([place]) Plt 168 150 - 400 K/cumm [facility] ([place]) MPV 8.0(L) 9.1 - 12.3 fL [facility] ([place]) RBC 4.27 3.90 - 5.20 M/cumm [facility] ([place]) MCV 84.3 81.3 - 96.4 fL [facility] ([place]) MCH 28.1 27.1 - 33.3 pg [facility] ([place]) MCHC 33.3 32.3 - 35.7 g/dL [facility] ([place]) RDW CV 14.3 11.1 - 14.9 % [facility] RDW SD 43.7 35.7 - 48.1 fL [facility] NRBC abs 0.00 0.00 - 0.01 K/cumm [facility] Blood 04/15/2024 9:33 AM CDT 04/15/2024 9:38 AM CDT us Ho Miller Jr., MD LAB BLOOD ORDERABLE S Final Result Performing Organization Address [facility]/ZIP Co de Phone Number [facility] ([place]) 1 [facility] [place] [address] * POCT glucose (04/15/2024 8:09 AM CDT) Glucose, POC 161 70 - 199 mg/dL Blood 04/15/2024 8:09 AM CDT 04/15/2024 8:09 AM CDT us Ho Miller Jr., MD LAB POCT ORDERABLES - DEVICE Final Result Performing Organization Address [facility]/ZIP Co de Phone Number [facility] ([place]) 1 [facility] [place] [address] * POCT glucose (04/15/2024 2:31 AM CDT) Glucose, POC 155 70 - 199 mg/dL Blood 04/15/2024 2:31 AM CDT 04/15/2024 2:31 AM CDT Geetha Mario MD LAB POCT ORDERABLES - DEV ICE Final Result [facility] ([place]) [address] [place] [address] * POCT glucose (04/14/2024 8:55 PM CDT) Glucose, POC 184 70 - 199 mg/dL Blood 04/14/2024 8:55 PM CDT 04/14/2024 8:55 PM CDT Geetha Mario MD LAB POCT ORDERABLES - DEV ICE Final Result Performing Organization Address [facility]/ZIP Co de Phone Number [facility] ([place]) 1 [facility] [place] [address] * POCT glucose (04/14/2024 4:57 PM CDT) Glucose, POC 162 70 - 199 mg/dL Blood 04/14/2024 4:57 PM CDT 04/14/2024 4:57 PM CDT Geetha Mario MD LAB POCT ORDERABLES - DEV ICE Final Result [facility] ([place]) 1 [facility] [place] [address] * POCT glucose (04/14/2024 11:47 AM CDT) Glucose, POC 172 70 - 199 mg/dL Blood 04/14/2024 11:4 7 AM CDT 04/14/2024 11:47 AM CDT Geetha Mario MD LAB POCT ORDERABLES - DEV ICE Final Result Performing Organization Address [facility]/ZIP Co de Phone Number [facility] ([place]) 1 [facility] [place] [address] * POCT glucose (04/14/2024 8:06 AM CDT) Glucose, POC 189 70 - 199 mg/dL Blood 04/14/2024 8:06 AM CDT 04/14/2024 8:06 AM CDT Geetha Mario MD LAB POCT ORDERABLES - DEV ICE Final Result Performing Organization Address [facility] Co de Phone Number [facility] ([place]) 1 [facility] [place] [address] * POCT glucose (04/14/2024 2:42 AM CDT) Glucose, POC 138 70 - 199 mg/dL Blood 04/14/2024 2:42 AM CDT 04/14/2024 2:42 AM CDT Geetha Mario MD LAB POCT ORDERABLES - DEV ICE Final Result Performing Organization Address [facility]/ZIP Co de Phone Number [facility] ([place]) 1 [facility] [place] [address] * POCT glucose (04/13/2024 10:32 PM CDT) Glucose, POC 94 70 - 199 mg/dL Blood 04/13/2024 10:3 2 PM CDT 04/13/2024 10:32 PM CDT Geetha Mario MD LAB POCT ORDERABLES - DEV ICE Final Result [facility] ([place]) 1 [facility] [place] [address] * (ABNORMAL) POCT glucose (04/13/2024 4:35 PM CDT) Glucose, POC 314(H) 70 - 199 mg/dL Blood 04/13/2024 4:35 PM CDT 04/13/2024 4:35 PM CDT Geetha Mario MD LAB POCT ORDERABLES - DEV ICE Final Result Performing Organization Address [facility]/ZIP Co de Phone Number [facility] ([place]) 1 [facility] [place] [address] * POCT glucose (04/13/2024 11:39 AM CDT) Glucose, POC 185 70 - 199 mg/dL Blood 04/13/2024 11:3 9 AM CDT 04/13/2024 11:39 AM CDT Geetha Mario MD LAB POCT ORDERABLES - DEV ICE Final Result [facility] ([place]) 1 [facility] [place] [address] * POCT glucose (04/13/2024 8:25 AM CDT) Glucose, POC 171 70 - 199 mg/dL Blood 04/13/2024 8:25 AM CDT 04/13/2024 8:25 AM CDT Geetha Mario MD LAB POCT ORDERABLES - DEV ICE Final Result [facility] ([place]) [address] [place] [address] * POCT glucose (04/13/2024 2:39 AM CDT) Glucose, POC 192 70 - 199 mg/dL Blood 04/13/2024 2:39 AM CDT 04/13/2024 2:39 AM CDT Geetha Mario MD LAB POCT ORDERABLES - DEV ICE Final Result [facility] ([place]) [address] [place] [address] * POCT glucose (04/12/2024 9:00 PM CDT) Glucose, POC 168 70 - 199 mg/dL Blood 04/12/2024 9:00 PM CDT 04/12/2024 9:00 PM CDT Geetha Mario MD LAB POCT ORDERABLES - DEV ICE Final Result [facility] ([place]) 1 [facility] [place] [address] * POCT glucose (04/12/2024 4:48 PM CDT) Glucose, POC 127 70 - 199 mg/dL Blood 04/12/2024 4:48 PM CDT 04/12/2024 4:48 PM CDT Geetha Mario MD LAB POCT ORDERABLES - DEV ICE Final Result [facility] ([place]) 1 [facility] [place] [address] * (ABNORMAL) POCT glucose (04/12/2024 12:15 PM CDT) Glucose, POC 249(H) 70 - 199 mg/dL Blood 04/12/2024 12:1 5 PM CDT 04/12/2024 12:15 PM CDT us Geetha Mario MD LAB POCT ORDERABLES - DEV ICE Final Result Performing Organization Address [facility] Co de Phone Number [facility] ([place]) 1 [facility] [place] [address] * POCT glucose (04/12/2024 8:18 AM CDT) Glucose, POC 152 70 - 199 mg/dL Blood 04/12/2024 8:18 AM CDT 04/12/2024 8:18 AM CDT us Geetha Mario MD LAB POCT ORDERABLES - DEV ICE Final Result Performing Organization Address [facility] Co de Phone Number [facility] ([place]) 1 [facility] [place] [address] * POCT glucose (04/12/2024 2:11 AM CDT) Glucose, POC 175 70 - 199 mg/dL Blood 04/12/2024 2:11 AM CDT 04/12/2024 2:11 AM CDT us Geetha Mario MD LAB POCT ORDERABLES - DEV ICE Final Result Performing Organization Address [facility] Co de Phone Number [facility] ([place]) 1 [facility] [place] [address] * POCT glucose (04/11/2024 8:46 PM CDT) Glucose, POC 193 70 - 199 mg/dL Blood 04/11/2024 8:46 PM CDT 04/11/2024 8:46 PM CDT us Geetha Mario MD LAB POCT ORDERABLES - DEV ICE Final Result [facility] ([place]) 1 [facility] [place] [address] * POCT glucose (04/11/2024 5:00 PM CDT) Glucose, POC 186 70 - 199 mg/dL Blood 04/11/2024 5:00 PM CDT 04/11/2024 5:00 PM CDT us Geetha Mario MD LAB POCT ORDERABLES - DEV ICE Final Result Performing Organization Address [facility]/ZIP Co de Phone Number [facility] ([place]) 1 [facility] [place] [address] * POCT glucose (04/11/2024 11:16 AM CDT) Glucose, POC 154 70 - 199 mg/dL Blood 04/11/2024 11:1 6 AM CDT 04/11/2024 11:16 AM CDT Geetha Mario MD LAB POCT ORDERABLES - DEV ICE Final Result Performing Organization Address [facility]/ZIP Co de Phone Number [facility] ([place]) 1 [facility] [place] [address] * (ABNORMAL) POCT glucose (04/11/2024 8:12 AM CDT) Glucose, POC 201(H) 70 - 199 mg/dL Blood 04/11/2024 8:12 AM CDT 04/11/2024 8:12 AM CDT Geetha Mario MD LAB POCT ORDERABLES - DEV ICE Final Result [facility] ([place]) 1 [facility] [place] [address] * POCT glucose (04/11/2024 2:03 AM CDT) Glucose, POC 136 70 - 199 mg/dL Blood 04/11/2024 2:03 AM CDT 04/11/2024 2:03 AM CDT Geetha Mario MD LAB POCT ORDERABLES - DEV ICE Final Result [facility] ([place]) 1 [facility] [place] [address] * (ABNORMAL) POCT glucose (04/10/2024 9:40 PM CDT) Glucose, POC 207(H) 70 - 199 mg/dL Blood 04/10/2024 9:40 PM CDT 04/10/2024 9:40 PM CDT Geetha Mario MD LAB POCT ORDERABLES - DEV ICE Final Result Performing Organization Address [facility]/ZIP Co de Phone Number [facility] ([place]) 1 [facility] [place] [address] * (ABNORMAL) POCT glucose (04/10/2024 5:03 PM CDT) Glucose, POC 200(H) 70 - 199 mg/dL Blood 04/10/2024 5:03 PM CDT 04/10/2024 5:03 PM CDT Geetha Mario MD LAB POCT ORDERABLES - DEV ICE Final Result [facility] ([place]) 1 [facility] [place] [address] * POCT glucose (04/10/2024 10:59 AM CDT) Glucose, POC 156 70 - 199 mg/dL Blood 04/10/2024 10:5 9 AM CDT 04/10/2024 10:59 AM CDT Geetha Mario MD LAB POCT ORDERABLES - DEV ICE Final Result Performing Organization Address [facility] Co de Phone Number [facility] ([place]) 1 [facility] [place] [address] * POCT glucose (04/10/2024 8:50 AM CDT) Glucose, POC 175 70 - 199 mg/dL Blood 04/10/2024 8:50 AM CDT 04/10/2024 8:50 AM CDT Geetha Mario MD LAB POCT ORDERABLES - DEV ICE Final Result Performing Organization Address [facility] de Phone Number [facility] ([place]) 1 [facility] [place] [address] * eGFR (04/10/2024 4:23 AM CDT) eGFR >90 >=60 mL/min/1. 73 [...] glomerular filtration rate is determined by the 2021 CKD-EPI equation recommended by the National Kidney [...] interpretive data was last reviewed 2021. Blood 04/10/2024 4:23 AM CDT 04/10/2024 4:35 AM CDT us Deya Meredith MD LAB BLOOD ORDERABLES Fin al Result [facility] ([place]) 1 [facility] [place] [address] * Differential, auto (04/10/2024 4:23 AM CDT) Neutrophil abs 2.3 1.5 - 6.5 K/cumm Imm gran abs 0.0 0.0 - 0.1 K/cumm [facility] ([place]) Lymphocyte abs 1.2 0.8 - 3.3 K/cumm [facility] ([place]) Monocyte abs 0.5 0.2 - 0.8 K/cumm [facility] ([place]) Eosinophil abs 0.1 0.0 - 0.5 K/cumm [facility] ([place]) Basophil abs 0.0 0.0 - 0.1 K/cumm [facility] ([place]) Neutrophil pct 55.3 % [facility] ([place]) Comment: Interpretive Data Percent cell count reference ranges are not reported, since discordance with absolute values may lead to misinterpretation of CBC data. Current Interpretive Data was last revised on 2017. Imm gran pct 0.2 % [facility] ([place]) Comment: Interpretive Data Percent cell count reference ranges are not reported, since discordance with absolute values may lead to misinterpretation of CBC data. Current Interpretive Data was last revised on 2017. Lymphocyte pct 29.7 % [facility] ([place]) Comment: Interpretive Data Percent cell count reference ranges are not reported, since discordance with absolute values may lead to misinterpretation of CBC data. Current Interpretive Data was last revised on 2017. Monocyte pct 12.4 % [facility] ([place]) Comment: Interpretive Data Percent cell count reference ranges are not reported, since discordance with absolute values may lead to misinterpretation of CBC data. Current Interpretive Data was last revised on 2017. Eosinophil pct 1.9 % [facility] ([place]) Comment: Interpretive Data Percent cell count reference ranges are not reported, since discordance with absolute values may lead to misinterpretation of CBC data. Current Interpretive Data was last revised on 2017. Basophil pct 0.5 % [facility] ([place]) Comment: Interpretive Data Percent cell count reference ranges are not reported, since discordance with absolute values may lead to misinterpretation of CBC data. Current Interpretive Data was last revised on 2017. Blood 04/10/2024 4:23 AM CDT 04/10/2024 4:35 AM CDT Deya Meredith MD LAB BLOOD ORDERABLES Fin al Result [facility] ([place]) 1 [facility] Department [place] [address] * (ABNORMAL) Comprehensive metabolic panel (04/10/2024 4:23 AM CDT) Sodium 139 135 - 145 mmol/L Potassium, pl 3.6 3.3 - 4.9 mmol/L [facility] ([place] Chloride 103 97 - 110 mmol/L [facility]) CO2 23 22 - 32 mmol/L [facility] ([place]) Anion gap 13 2 - 15 mmol/L [facility] ([place]) BUN 12 6 - 25 mg/dL [facility] ([place]) Creatinine 0.45(L) 0.60 - 1.10 mg/dL [facility] ([place] Glucose 145 70 - 199 mg/dL [facility] ([place] Comment: Interpretive Data Fasting glucose >/= 126 mg/dl is diagnostic for diabetes. ?? Fasting is defined as no caloric intake for at least 8 hours. Fasting glucose between 100 mg/dl to 125 mg/dl is diagnostic of prediabetes. In a patient with classic symptoms of hyperglycemia or hyperglycemic crisis, a random glucose >/= 200 mg/dl is diagnostic for diabetes. In the absence of unequivocal hyperglycemia, results should be confirmed by repeat testing. The classification and Diagnosis of Diabetes Diabetes Care 2021; 46: S19-S40. Current interpretive data was last revised 2022. Calcium 8.8 8.5 - 10.3 mg/dL [facility] ([place]) Bilirubin, total 0.5 0.1 - 1.2 mg/dL [facility] ([place]) Protein, pl 7.4 6.5 - 8.5 g/dL [facility] ([place]) Albumin 3.5 3.5 - 5.0 g/dL [facility] ([place]) Alk phos 215(H) 40 - 130 Units/L [facility] ([place]) ALT 20 7 - 45 Units/L [facility] ([place]) AST 25 10 - 45 Units/L [facility] ([place]) Blood 04/10/2024 4:23 AM CDT 04/10/2024 4:35 AM CDT us Deya Meredith MD LAB BLOOD ORDERABLES Fin al Result [facility] ([place]) 1 [facility] Department [place] [address] * (ABNORMAL) CBC with auto differential (04/10/2024 4:23 AM CDT) WBC 4.2 3.8 - 9.9 K/cumm Hgb 11.4(L) 11.9 - 15.5 g/dL [facility] ([place]) Hct 34.0(L) 35.6 - 45.5 % [facility] ([place]) Plt 158 150 - 400 K/cumm [facility] ([place]) MPV 8.6(L) 9.1 - 12.3 fL [facility] ([place]) RBC 4.08 3.90 - 5.20 M/cumm [facility] ([place]) MCV 83.3 81.3 - 96.4 fL [facility] ([place]) MCH 27.9 27.1 - 33.3 pg [facility] ([place]) MCHC 33.5 32.3 - 35.7 g/dL [facility] ([place]) RDW CV 14.6 11.1 - 14.9 % [facility] ([place]) RDW SD 44.7 35.7 - 48.1 fL [facility] ([place]) NRBC abs 0.00 0.00 - 0.01 K/cumm [facility] ([place]) Blood 04/10/2024 4:23 AM CDT 04/10/2024 4:35 AM CDT Deya Meredith MD LAB BLOOD ORDERABLES Fin al Result [facility] ([place]) 1 [facility] [email or web address] [address] * POCT glucose (04/10/2024 3:00 AM CDT) Glucose, POC 150 70 - 199 mg/dL Blood 04/10/2024 3:00 AM CDT 04/10/2024 3:00 AM CDT Deya Meredith MD LAB POCT ORDERABLES - DE VICE Final Result Performing Organization Address City/[facility]/ZIP Co de Phone Number [facility] ([place]) 1 [facility] [email or web address] [address] documented in this encounter Visit Diagnoses Diagnosis Uncontrolled pain- Primary Uncontrolled pain Other closed nondisplaced fracture of fifth cervical vertebra, initial encounter (HCC) Closed unstable burst fracture of eleventh thoracic vertebra with routine healing, subsequent encounter Multiple rib fractures involving four or more ribs Type 2 diabetes mellitus with diabetic neuropathy, with long-term current use of insulin (HCC) Chronic anemia Unspecified anemia Other closed nondisplaced fracture of fifth cervical vertebra with routine healing, subsequent encounter [S12.371D] Multiple rib fractures involving four or more ribs Closed unstable burst fracture of T11 vertebra (HCC) Closed fracture of cervical vertebra (CMS/HCC) (HCC) Closed fracture of cervical vertebra, unspecified level without mention of spinal cord injury Type 2 diabetes mellitus with diabetic neuropathy, with long-term current use of insulin (HCC) Chronic anemia Unspecified anemia documented in this encounter Admitting Diagnoses Diagnosis Uncontrolled pain documented in this encounter Administered Medications Inactive Administered Medications - up to 3 most recent administrations Medication Order MAR Action Action Date Dose Rate Site acetaminophen (TYLENOL) tablet 1,000 mg 1,000 mg, oral, Once, On Sarah 04/10/24 at 0222, For 1 dose Given 04/10/2024 2:36 AM CDT 1,000 mg acetaminophen (TYLENOL) tablet 1,000 mg 1,000 mg, oral, Every 6 hours, First dose on Sarah 04/10/24 at 0226 Given 04/18/2024 1:59 PM CDT 1,000 mg Given 04/18/2024 8:20 AM CDT 1,000 mg Given 04/17/2024 3:29 PM CDT 1,000 mg dextrose (D10W) 10% bolus 250 mL 250 mL, intravenous, at 1,000 mL/hr, Administer over 15 Minutes, Every 15 min PRN, blood glucose less than 70 mg/dL and UNABLE to swallow/take PO glucose/juice., Starting on Sarah 04/10/24 at 0723, After treatment for hypoglycemia, recheck BG followed by treatment every 15 minutes until the BG is greater than 100 mg/dL. Then check BG 1 hour post treatment. If BG is less than 100 mg/dL, repeat Q15 minute BG checks and treatment. Call MD for each episode of hypoglycemia., Indications: hypoglycemic disorderIndications:hypoglycemi c disorder dextrose gel in packet 15 g 15 g, oral, Every 15 min PRN, low blood sugar, blood glucose less than 70 mg/dL, Starting on Sarah 04/10/24 at 0723, If patient is alert and able to eat/drink, give 15 gm glucose or one juice (4 fluid ounces) NOT ORANGE JUICE. After treatment for hypoglycemia, recheck BG followed by treatment every 15 minutes until the BG is greater than 100 mg/dL. Then check BG 1 hour post-treatment. If BG is less than 100 mg/dL, repeat Q15 minute BG checks and treatment. Call MD for each episode of hypoglycemia., Indications: hypoglycemic disorderIndications:hypoglycemi c disorder enoxaparin (LOVENOX) syringe 40 mg 40 mg, subcutaneous, Daily (for enoxaparin), First dose on Sun04/10/24 at 2100, Indications: Deep Vein Thrombosis PreventionIndications:Deep Vein Thrombosis Prevention Given 04/17/2024 8:35 PM CDT 40 mg Left Upper Abdomen Given 04/16/2024 8:27 PM CDT 40 mg Le ft Upper Abdomen Given 04/15/2024 8:08 PM CDT 40 mg Ri ght Lower Abdomen glucagon injection 1 mg 1 mg, intramuscular, Every 30 min PRN, low blood sugar, blood glucose less than 70 mg/dL AND no IV access AND unable to take PO glucose/juice., Starting on Sun04/10/24 at 0723, After Glucagon is administered, position patient on side if possible to avoid aspiration. Obtain IV access. Follow glucagon treatment with glucose treatment or IV dextrose. After treatment for hypoglycemia, recheck BG followed by treatment every 15 minutes until the BG is greater than 100 mg/dL. Then check BG 1 hour post treatment. If BG is less than 100 mg/dL, repeat Q15 minute BG checks and treatment. Call MD for each episode of hypoglycemia. Reconstitute 1 mg vial with 1 mL SWFI. Use immediately following reconstitution. HYDROmorphone (DILAUDID) injection 1 mg 1 mg, intravenous, Administer over 2 Minutes, Once, On Sun04/10/24 at 0222, For 1 dose, Indications: PainIndications:Pain Given 04/10/2024 2:36 AM CDT 1 mg insulin glargine (LANTUS, SEMGLEE) 100 unit/mL injection 20 Units 20 Units, subcutaneous, Nightly, First dose on Sun04/10/24 at 2100, Do not hold if NPO. Do not mix with other insulins, Indications: Diabetes MellitusIndications:Diabetes Mellitus Given 04/17/2024 8:35 PM CDT 20 Units Right Upper Arm Given 04/16/2024 8:26 PM CDT 20 Units Le ft Upper Arm Given 04/15/2024 8:08 PM CDT 20 Units Ri ght Lower Abdomen insulin lispro (HumaLOG, ADMELOG) 100 unit/mL injection 0-10 Units 0-10 Units, subcutaneous, 3 times daily with meals, First dose on Sun04/11/24 at 1800, Blood glucose mg/dL: 149 or less: No insulin 150-199: add 2 unit 200-249: add 4 units 250-299: add 6 units 300-349: add 8 units and notify physician for adjustment of insulin orders. 350-399: add 10 units and notify physician for adjustment of insulin orders. Over 400: Notify physician for adjustment of insulin orders. Do NOT hold for NPO Status, Indications: Diabetes MellitusIndications:Diabetes Mellitus Given 04/18/2024 12:11 PM CDT 2 Units Left Lower Abdomen Given 04/18/2024 8:20 AM CDT 4 Units Le ft Lower Abdomen Given 04/17/2024 5:01 PM CDT 4 Units Le ft Upper Arm insulin lispro (HumaLOG, ADMELOG) 100 unit/mL injection 0-4 Units 0-4 Units, subcutaneous, Nightly, First dose on Sarah 04/10/24 at 2100, Blood glucose mg/dL: 199 or less: No insulin 200-249: add 1 unit 250-299: add 2 units 300-349: add 3 units and notify physician for adjustment of insulin orders. 350-399: add 4 units and notify physician for adjustment of insulin orders. Over 400: Notify physician for adjustment of insulin orders. Do NOT hold for NPO Status, Indications: Diabetes MellitusIndications:Diabetes Mellitus Given 04/10/2024 9:45 PM CDT 1 Units Left Lower Abdomen insulin lispro (HumaLOG, ADMELOG) 100 unit/mL injection 0-5 Units 0-5 Units, subcutaneous, 3 times daily with meals, First dose on Sarah 04/10/24 at 0800, Blood glucose mg/dL: 149 or less: No insulin 150-199: add 1 unit 200-249: add 2 units 250-299: add 3 units 300-349: add 4 units and notify physician for adjustment of insulin orders. 350-399: add 5 units and notify physician for adjustment of insulin orders. Over 400: Notify physician for adjustment of insulin orders. Do NOT hold for NPO Status, Indications: Diabetes MellitusIndications:Diabetes Mellitus Given 04/11/2024 11:53 AM CDT 1 Units Left Upper Arm Given 04/11/2024 8:36 AM CDT 2 Units Le ft Upper Arm Given 04/10/2024 5:23 PM CDT 2 Units Le ft Upper Arm insulin lispro (HumaLOG, ADMELOG) 100 unit/mL injection 0-5 Units 0-5 Units, subcutaneous, Nightly, First dose on Sun04/11/24 at 2100, Blood glucose mg/dL: 149 or less: No insulin 150-199: add 1 unit 200-249: add 2 units 250-299: add 3 units 300-349: add 4 units and notify physician for adjustment of insulin orders. 350-399: add 5 units and notify physician for adjustment of insulin orders. Over 400: Notify physician for adjustment of insulin orders. Do NOT hold for NPO Status, Indications: Diabetes MellitusIndications:Diabetes Mellitus Given 04/17/2024 8:36 PM CDT 1 Units Left Upper Abdomen Given 04/15/2024 8:15 PM CDT 1 Units Ri ght Lower Abdomen Given 04/14/2024 8:59 PM CDT 1 Units Ri ght Upper Arm insulin lispro (HumaLOG, ADMELOG) 100 unit/mL injection 10 Units 10 Units, subcutaneous, 3 times daily with meals, First dose on Sun04/10/24 at 0800, If BG greater than or equal to 100 mg/dL, give dose with meals when tray arrives in the room. If BG less than 100 mg/dL or history of poor intake, give after meals. If patient eating less than 50% of meal, call MD for holding or reducing meal insulin dose. Hold prandial insulin if NPO, unable to eat, or if BG less than 70 mg/dL., Indications: Diabetes MellitusIndications:Diabetes Mellitus Given 04/18/2024 12:10 PM CDT 10 Units Left Lower Abdomen Given 04/18/2024 8:20 AM CDT 10 Units Le ft Lower Abdomen Given 04/17/2024 5:01 PM CDT 10 Units Le ft Upper Arm lidocaine (LIDODERM) 5 % patch 2 patch 2 patch, transdermal, Administer over 12 Hours, Every 24 hours, First dose on Sun04/10/24 at 0225, Do not cover the holes on the top side of the patch., Apply to affected area: chest Medication Applied 04/10/2024 2:35 AM CDT 2 patches Back lidocaine (LIDODERM) 5 % patch 2 patch 2 patch, transdermal, Administer over 12 Hours, Nightly, First dose (after last modification) on Sun04/10/24 at 2100, Do not cover the holes on the top side of the patch., Apply to affected area: chest Medication Applied 04/17/2024 8:36 PM CDT 2 patches Right Shoulder Medication Applied 04/16/2024 8:27 PM CDT 2 patches Right Shoulder Medication Applied 04/15/2024 8:09 PM CDT 2 patches Right Arm methocarbamoL (ROBAXIN) tablet 750 mg 750 mg, oral, 3 times daily, First dose on Sun04/10/24 at 0225 Given 04/18/2024 8:20 AM CDT 750 mg Given 04/17/2024 8:35 PM CDT 750 mg Given 04/17/2024 3:29 PM CDT 750 mg oxyCODONE (ROXICODONE) tablet 7.5 mg 7.5 mg, oral, Every 8 hours PRN, 1st line for pain, Starting on Sun04/10/24 at 0223, Indications: PainIndications:Pain Given 04/15/2024 5:54 PM CDT 7.5 mg Given 04/15/2024 9:48 AM CDT 7.5 mg Given 04/15/2024 1:25 AM CDT 7.5 mg oxyCODONE (ROXICODONE) tablet 7.5 mg 7.5 mg, oral, Every 6 hours PRN, 1st line for pain, Starting on Sun04/15/24 at 1759, Indications: PainIndications:Pain Given 04/18/2024 2:40 PM CDT 7.5 mg Given 04/18/2024 8:46 AM CDT 7.5 mg Given 04/18/2024 2:42 AM CDT 7.5 mg pregabalin (LYRICA) capsule 100 mg 100 mg, oral, 3 times daily, First dose on Sun04/10/24 at 0225 Given 04/18/2024 8:20 AM CDT 100 mg Given 04/17/2024 8:35 PM CDT 100 mg Given 04/17/2024 3:30 PM CDT 100 mg sodium chloride 0.9% flush 0.5-20 mL 0.5-20 mL, intra-catheter, Every 8 hours, First dose on Sun04/10/24 at 1400, Flush volume based on line type and size. Given 04/18/2024 5:52 AM CDT 10 mL Given 04/17/2024 8:36 PM CDT 10 mL Given 04/17/2024 3:33 PM CDT 10 mL sodium chloride 0.9% flush 0.5-20 mL 0.5-20 mL, intra-catheter, As needed, line care, Starting on Sarah 04/10/24 at 0614, Flush volume based on line type and size. Flush before and after each use. documented in this encounter Discontinued Medications Medication Sig Discontinue Reason Start Date End Da te gabapentin (NEURONTIN) 300 mg capsule Take 1 capsule (300 mg total) by mouth 3 (three) times a day Alternate therapy 02/29/2024 04/10/2024 oxyCODONE (ROXICODONE) 15 mg immediate release tabletIndications:Pain Take 0.5 tablets (7.5 mg total) by mouth every 6 (six) hours as needed for pain 04/08/2024 04/18/2024 insulin glargine (LANTUS, SEMGLEE) 100 unit/mL vial for injectionIndications:D iabetes Mellitus Inject 30 Units under the skin every morning Stop Taking at Discharge 04/09/2024 04/18/2024 documented as of this encounter Active and Recently Administered Medications Times are shown in CDT. Scheduled Medication Order 04/16/2024 04/17/2024 04/18/2024 acetaminophen (TYLENOL) tablet 1,000 mg 1,000 mg, oral, Every 6 hours, First dose on Sarah 04/10/24 at 0226 0706 (Given - Provider: Marizol Quezada RN)0837 (Given - Provider: Nayana Chacon RN)1424 (Given - Provider: Stefania Yanez)2024 (Given - Provider: Becky Orellana, JULISSA) 0145 (Not Given - Provider: Becky Orellana RN - Reason: Patient/family refused - Comment: oxycodone given as per patient's request.)0847 (Given - Provider: Nayana Chacon RN)1529 (Given - Provider: Nayana Chacon RN)2033 (Not Given - Provider: Becky Orellana RN - Reason: Patient/family refused - Comment: oxycodone given) 0243 (Not Given - Provider: Becky Orellana RN - Reason: Patient/family refused - Comment: oxycodone given)0820 (Given - Provider: Alexus Parnell, JULISSA)1359 (Given - Provider: Alexus Parnell, RN) enoxaparin (LOVENOX) syringe 40 mg 40 mg, subcutaneous, Daily (for enoxaparin), First dose on Sun04/10/24 at 2100, Indications: Deep Vein Thrombosis Prevention 2026 (Given - Provider: Becky Orellana, JULISSA) 2034 (Given - Provider: Becky Orellana, JULISSA) insulin glargine (LANTUS, SEMGLEE) 100 unit/mL injection 20 Units 20 Units, subcutaneous, Nightly, First dose on Sun04/10/24 at 2100, Do not hold if NPO. Do not mix with other insulins, Indications: Diabetes Mellitus 2025 (Given - Provider: Becky Orellana RN) 2034 (Given - Provider: Bceky Orellana, JULISSA) insulin lispro (HumaLOG, ADMELOG) 100 unit/mL injection 0-10 Units 0-10 Units, subcutaneous, 3 times daily with meals, First dose on Sun04/11/24 at 1800, Blood glucose mg/dL: 149 or less: No insulin 150-199: add 2 unit 200-249: add 4 units 250-299: add 6 units 300-349: add 8 units and notify physician for adjustment of insulin orders. 350-399: add 10 units and notify physician for adjustment of insulin orders. Over 400: Notify physician for adjustment of insulin orders. Do NOT hold for NPO Status, Indications: Diabetes Mellitus 0841 (Given - Provider: Nayana Chacon RN)1155 (Not Given - Provider: Nayana Chacon RN - Reason: Order parameters not met)1701 (Given - Provider: Nayana Chacon RN) 0848 (Not Given - Provider: Nayana Chacon RN - Reason: Order parameters not met)1211 (Given - Provider: Nayana Chacon RN)1701 (Given - Provider: Nayana Chacon RN) 0820 (Given - Provider: Alexus Parnell, JULISSA)1211 (Given - Provider: Alexus Parnell, RN) insulin lispro (HumaLOG, ADMELOG) 100 unit/mL injection 0-5 Units 0-5 Units, subcutaneous, Nightly, First dose on Sun04/11/24 at 2100, Blood glucose mg/dL: 149 or less: No insulin 150-199: add 1 unit 200-249: add 2 units 250-299: add 3 units 300-349: add 4 units and notify physician for adjustment of insulin orders. 350-399: add 5 units and notify physician for adjustment of insulin orders. Over 400: Notify physician for adjustment of insulin orders. Do NOT hold for NPO Status, Indications: Diabetes Mellitus 2015 (Not Given - Provider: Becky Orellana RN - Reason: Order parameters not met) 2035 (Given - Provider: Becky Orellana, RN) insulin lispro (HumaLOG, ADMELOG) 100 unit/mL injection 10 Units 10 Units, subcutaneous, 3 times daily with meals, First dose on Sun04/10/24 at 0800, If BG greater than or equal to 100 mg/dL, give dose with meals when tray arrives in the room. If BG less than 100 mg/dL or history of poor intake, give after meals. If patient eating less than 50% of meal, call MD for holding or reducing meal insulin dose. Hold prandial insulin if NPO, unable to eat, or if BG less than 70 mg/dL., Indications: Diabetes Mellitus 0840 (Given - Provider: Nayana Chacon RN)1225 (Given - Provider: Nayana Chacon RN)1701 (Given - Provider: Nayana Chacon RN) 0847 (Given - Provider: Nayana Chacon, JULISSA)1211 (Given - Provider: Nayana Chacon RN)1701 (Given - Provider: Nayana Chacon RN) 0820 (Given - Provider: Alexus Parnell, RN)1210 (Given - Provider: Alexus Parnell, RN) lidocaine (LIDODERM) 5 % patch 2 patch 2 patch, transdermal, Administer over 12 Hours, Nightly, First dose (after last modification) on Sarah 04/10/24 at 2100, Do not cover the holes on the top side of the patch., Apply to affected area: chest 0840 (Medication Removed - Provider: Nayana Chacon RN)2026 (Medication Applied - Provider: Becky Orellana, JULISSA) 0954 (Medication Removed - Provider: Nayana Chacon RN)2035 (Medication Applied - Provider: Becky Orellana RN) 0826 (Medication Removed - Provider: Alexus Parnell, JULISSA) methocarbamoL (ROBAXIN) tablet 750 mg 750 mg, oral, 3 times daily, First dose on Sarah 04/10/24 at 0225 0838 (Given - Provider: Nayana Chacon RN)1600 (Given - Provider: Stefania Yanez)2025 (Given - Provider: Becky Orellana RN) 0847 (Given - Provider: Nayana Chacon RN)1529 (Given - Provider: Nayana Chacon RN)2034 (Given - Provider: Becky Orellana RN) 0820 (Given - Provider: Alexus Parnell, JULISSA) pregabalin (LYRICA) capsule 100 mg 100 mg, oral, 3 times daily, First dose on Sarah 04/10/24 at 0225 0840 (Given - Provider: Nayana Chacon RN)1600 (Given - Provider: Stefania Yanez)2025 (Given - Provider: Becky Orellana RN) 0847 (Given - Provider: Nayana Chacon RN)1530 (Given - Provider: Nayana Chacon RN)2034 (Given - Provider: Becky Orellana, JULISSA) 0820 (Given - Provider: Alexus Parnell RN) sodium chloride 0.9% flush 0.5-20 mL 0.5-20 mL, intra-catheter, Every 8 hours, First dose on Sarah 04/10/24 at 1400, Flush volume based on line type and size. 0642 (Not Given - Provider: Marizol Quezada RN - Reason: Other - Comment: pt sleeping)1227 (Given - Provider: Nayana Chacon, JULISSA)2026 (Given - Provider: Becky Orellana, RN) 0614 (Given - Provider: Becky Orellana, JULISSA)1533 (Given - Provider: Nayana Chacon RN - Comment: pt off the floor)2035 (Given - Provider: Becky Orellana, RN) 0552 (Given - Provider: Becky Orellana, JULISSA)1422 (Not Given - Provider: Alexus Parnell RN - Reason: Loss of IV access) PRN Medication Order 04/16/2024 04/17/2024 04/18/2024 dextrose (D10W) 10% bolus 250 mL(Linked Group 1) 250 mL, intravenous, at 1,000 mL/hr, Administer over 15 Minutes, Every 15 min PRN, blood glucose less than 70 mg/dL and UNABLE to swallow/take PO glucose/juice., Starting on Sarah 04/10/24 at 0723, After treatment for hypoglycemia, recheck BG followed by treatment every 15 minutes until the BG is greater than 100 mg/dL. Then check BG 1 hour post treatment. If BG is less than 100 mg/dL, repeat Q15 minute BG checks and treatment. Call MD for each episode of hypoglycemia., Indications: hypoglycemic disorder dextrose gel in packet 15 g(Linked Group 1) 15 g, oral, Every 15 min PRN, low blood sugar, blood glucose less than 70 mg/dL, Starting on Sarah 04/10/24 at 0723, If patient is alert and able to eat/drink, give 15 gm glucose or one juice (4 fluid ounces) NOT ORANGE JUICE. After treatment for hypoglycemia, recheck BG followed by treatment every 15 minutes until the BG is greater than 100 mg/dL. Then check BG 1 hour post-treatment. If BG is less than 100 mg/dL, repeat Q15 minute BG checks and treatment. Call MD for each episode of hypoglycemia., Indications: hypoglycemic disorder glucagon injection 1 mg 1 mg, intramuscular, Every 30 min PRN, low blood sugar, blood glucose less than 70 mg/dL AND no IV access AND unable to take PO glucose/juice., Starting on Sarah 04/10/24 at 0723, After Glucagon is administered, position patient on side if possible to avoid aspiration. Obtain IV access. Follow glucagon treatment with glucose treatment or IV dextrose. After treatment for hypoglycemia, recheck BG followed by treatment every 15 minutes until the BG is greater than 100 mg/dL. Then check BG 1 hour post treatment. If BG is less than 100 mg/dL, repeat Q15 minute BG checks and treatment. Call MD for each episode of hypoglycemia. Reconstitute 1 mg vial with 1 mL SWFI. Use immediately following reconstitution. oxyCODONE (ROXICODONE) tablet 7.5 mg 7.5 mg, oral, Every 6 hours PRN, 1st line for pain, Starting on Sun04/15/24 at 1759, Indications: Pain 0158 (Given - Provider: Marizol Quezada, RN)0839 (Given - Provider: Nayana Chacon, JULISSA)1600 (Given - Provider: Stefania Yanez) 0143 (Given - Provider: Becky Orellana, JULISSA)0952 (Given - Provider: Nayana Chacon, JULISSA)1529 (Given - Provider: Nayana Chacon RN)2035 (Given - Provider: Becky Orellana, JULISSA) 0242 (Given - Provider: Becky Orellana, JULISSA)0846 (Given - Provider: Alexus Parnell, JULISSA)1440 (Given - Provider: Alexus Parnell, JULISSA) polyethylene glycol (MIRALAX) packet 17 g 17 g, oral, Daily PRN, constipation, Starting on Sun04/10/24 at 0558, Indications: constipation sodium chloride 0.9% flush 0.5-20 mL 0.5-20 mL, intra-catheter, As needed, line care, Starting on Sun04/10/24 at 0614, Flush volume based on line type and size. Flush before and after each use. Linked Groups Order Group 1: dextrose gel in packet 15 gJump to med 15 g, oral, Every 15 min PRN, low blood sugar, blood glucose less than 70 mg/dL, Starting on Sun04/10/24 at 0723, If patient is alert and able to eat/drink, give 15 gm glucose or one juice (4 fluid ounces) NOT ORANGE JUICE. After treatment for hypoglycemia, recheck BG followed by treatment every 15 minutes until the BG is greater than 100 mg/dL. Then check BG 1 hour post-treatment. If BG is less than 100 mg/dL, repeat Q15 minute BG checks and treatment. Call MD for each episode of hypoglycemia., Indications: hypoglycemic disorder Or dextrose (D10W) 10% bolus 250 mLJump to med 250 mL, intravenous, at 1,000 mL/hr, Administer over 15 Minutes, Every 15 min PRN, blood glucose less than 70 mg/dL and UNABLE to swallow/take PO glucose/juice., Starting on Sarah 04/10/24 at 0723, After treatment for hypoglycemia, recheck BG followed by treatment every 15 minutes until the BG is greater than 100 mg/dL. Then check BG 1 hour post treatment. If BG is less than 100 mg/dL, repeat Q15 minute BG checks and treatment. Call MD for each episode of hypoglycemia., Indications: hypoglycemic disorder documented in this encounter Orders Medications Ordered That Taco ht Not Have Been Administered Count Last Ordered Date First Ordered Date dextrose (D10W) 10% bolus 250 mL 04/10/20 dextrose gel in packet 15 g 04/10/2024 glucagon injection 1 mg 04/10/2024 polyethylene glycol (MIRALAX) packet 17 g 04/10/2024 sodium chloride 0.9% flush 0.5-20 mL 03/14 Lab Orders Without Results Count Last Ordered D ate First Ordered Date POCT GLUCOSE DEVICE 30 04/17/2024 04/10/20 Nursing Count Last Ordered Date First Orde red Date DISCHARGE ACTIVITY 04/18/2024 DISCHARGE CALL PROVIDER 8 04/18/2024 DISCHARGE INSTRUCTIONS 04/18/2024 MISCELLANEOUS NURSING CARE ORDER (SPECIFY) 04/10/2024 NOTIFY PROVIDER (SPECIFY) 04/10/[address]24 PL[address] SEQUENTIAL COMPRESSION DEVICE 04/10 WEIGH PATIENT 1 04/10/2024 Admission Count Last Ordered Date First Orde red Date ADMIT TO INPATIENT 1 04/12/2024 INITIATE OBSERVATION SERVICES 04/10/2024 Discharge Count Last Ordered Date First Orde red Date DISCHARGE PATIENT 1 04/18/2024 CORE MEASURES Count Last Ordered Date First Ord ered Date REASON FOR NO VTE PROPHYLAXI S - HOSPITAL ADMISSION - MEDICATIONS 04/10/2024 documented in this encounter Additional Health Concerns Infection Onset Date Last Indicated Resolved Time MRSA Comment:IP reviewed 03/10/2024 Postive last at [facility] on 01/23/24 Added from external infection. Source: [facility] - [facility], [facility]. 07/06/2017 Ring Surveillance 03/29/2024 03/29/2024 04/18/2024 12:36 PM CDT documented as of this encounter Care Teams Orthotic Technician Relationship Specialty Start Date End Date No, Physician PCP - General 04/10/24 documented as of this encounter
--- OUTSIDE RECORDS SUMMARY | 2024-08-23 18:36 | XMS_ITS | Encounter Summary ---
Author Organization [facility] Healthcare Address [address] [place] [address] Care Team Providers Care Sheet Ironworker Name Role Phone No, Physician Primary Care Provider [phone] Reason for Referral * Diagnostic Imaging (Routine) - Closed Specialty Diagnoses / Procedures Referred By Contac t Referred To Contact Diagnoses S/P cervical spinal fusion Procedures XR Spine Cervical 2 or 3 Views Marcio Tapia MD [address] [place] [address] Phone: tel: fax: [place] [address] [place] [address] Referral ID Status Reason Start Date Expiration Date Visits Re quested Visits Authorized [id number] Closed 04/21/2024 05/21/2025 1 1 Reason for Visit * Diagnostic Imaging (Routine) - Closed Specialty Diagnoses / Procedures Referred By Contac t Referred To Contact Diagnoses S/P cervical spinal fusion Procedures XR Spine Cervical 2 or 3 Views Marcio Tapia MD [address] [place] [address] Phone: tel: fax: [place] [address] [place] [address] Referral ID Status Reason Start Date Expiration Date Visits Re quested Visits Authorized [id number] Closed 04/21/2024 05/21/2025 1 1 Encounter Details Date Type Department Care Team (Latest Contact Info) Description 05/07/2024 12:30 PM CDT - 05/07/2024 11:59 PM CDT Hospital Encounter [id number] [address] [facility] [address] [place] [address] S/P cervical spinal fusion Discharge Disposition: Discharge to home or self care Social History Tobacco Use Types Packs/Day Years Used Date Smoking Tobacco: Every Day Cigarettes [facility] Utilities Answer Date Recorded In the past 12 months has th e [employer], gas, oil, or water company threatened to [...] 04/10/2024 How often do you attend chur or alevism services? Patient unable to answer 04/10/2024 Do you belong to any clubs o r organizations such as uatsdin groups, unions, fraternal or athletic groups, or [...] any time in the past 12 m [facility], were you homeless or living in a retirement (including now)? Patient unable to answer 03/12/2024 Personal Safety Answer Date Recorded Have you ever been in or are you currently in a harmful physical or emotional relationship or is someone making you feel afraid or unsafe? 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 04/08/2024 blood-glucose meter (OneTouch Ultra2 Meter) mis Inject 1 Units under the skin 2 [...] nightly 04/08/2024 documented as of this encounter Discharge Disposition Disposition Code Departure Means Destination Discharge to home or self care documented in this encounter Plan of Treatment Not on file documented as of this encounter Procedures Procedure Name Priority Date/Time Associated Diagnosis Comments XR SPINE CERVICAL 2 OR 3 VIEWS Schedule Routine, Read Routine (OP Routine) 05/07/2024 1:25 PM CDT S/P cervical spinal fusion documented in this encounter Results * XR Spine Cervical 2 or 3 Views (05/07/2024 1:25 PM CDT) Anatomical Region Laterality Modality Spine N/A Computed Radiogr aphy 05/07/2024 2:29 PM CDT Impressions 05/07/2024 2:53 PM CDT Unchanged posterior decompression and instrumented spinal fusion of C2-T2. Dictated by: Ping Kenney M.D. The radiology attending physician has personally reviewed this study, and had reviewed and/or edited this written report and agrees with it. Electronically signed by: Robin Orta D.O. Narrative 05/07/2024 2:53 PM CDT EXAMINATION: XR SPINE CERVICAL 2 OR 3 VIEWS HISTORY: Postoperative evaluation for cervical spinal fusion, history of C5, C6 transverse foramina fracture and C7 lamina fracture. FINDINGS: 3 views of the cervical spine are read with comparison to 03/15/2024. Unchanged posterior decompression and instrumented spinal fusion of C2-T2. Instrumentation is intact. ??Drain has been removed in the interim. ??No significant prevertebral soft tissue swelling. ??Body heights are maintained. ??Bulky anterior cervical osteophytes. Procedure Note Robin Orta, - 05/07/2024 EXAMINATION: XR SPINE CERVICAL 2 OR 3 VIEWS HISTORY: Postoperative evaluation for cervical spinal fusion, history of C5, C6 transverse foramina fracture and C7 lamina fracture. FINDINGS: 3 views of the cervical spine are read with comparison to 03/15/2024. Unchanged posterior decompression and instrumented spinal fusion of C2-T2. Instrumentation is intact. Drain has been removed in the interim. No significant prevertebral soft tissue swelling. Body heights are maintained. Bulky anterior cervical osteophytes. IMPRESSION: Unchanged posterior decompression and instrumented spinal fusion of C2-T2. Dictated by: Ping Kenney M.D. The radiology attending physician has personally reviewed this study, and had reviewed and/or edited this written report and agrees with it. Electronically signed by: Robin Orta D.O. Marcio Tapia MD IMG XR PROCEDURES Final Result documented in this encounter Visit Diagnoses Diagnosis S/P cervical spinal fusion Arthrodesis status documented in this encounter Additional Health Concerns Infection Onset Date Last Indicated Resolved Time MRSA Comment:IP reviewed 03/10/2024 Postive last at [facility] on 01/23/24 Added from external infection. Source: [facility] - [facility], [facility]. 07/06/2017 documented as of this encounter Care Teams Sheet Ironworker Relationship Specialty Start Date End Date No, Physician PCP - General 04/10/24 documented as of this encounter
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
--- OUTSIDE RECORDS SUMMARY | 2024-08-23 18:36 | XMS_ITS | Encounter Summary ---
Author Organization [facility] Address [address] [facility] [address] [place] [address] Phone Care Team Providers Care Insole And Outsole Preparer Name Role Phone No, Physician Primary Care Provider [phone] Reason for Referral * Diagnostic Imaging (Routine) - Closed Specialty Diagnoses / Procedures Referred By Contac t Referred To Contact Diagnoses S/P cervical spinal fusion Procedures XR Spine Cervical 2 or 3 Views Marcio Tapia MD [address] [place] [address] Phone: tel: fax: [address] [address] Referral ID Status Reason Start Date Expiration Date Visits Re quested Visits Authorized [id number] Closed 04/21/2024 05/21/2025 1 1 Encounter Details Date Type Department Care Team (Late st Contact Info) Description 04/21/2024 Orders Only [facility] Neurosurgery [facility] [address] [place] [address] Marcio Tapia MD [address] [place] [address] S/P cervical spinal fusion (Primary Dx) Social History Tobacco Use Types Packs/Day Years Used Date Smoking Tobacco: Every Day Cigarettes [employer] Utilities Answer Date Recorded In the past [...] often do you attend chur ch or rastafarian services? Patient unable to answer 04/10/2024 Do [...] any time in the past 12 m [facility], were you homeless or living in a long-term (including now)? Patient unable to answer 03/12/2024 Personal Safety Answer Date Recorded Have you ever been in or are you currently in a harmful physical or emotional relationship or is someone making you feel afraid or unsafe? 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 Procedure Note Robin Orta, DO - 05/07/2024 EXAMINATION: XR SPINE CERVICAL 2 [...] MRSA Comment:IP reviewed 03/10/2024 Postive last at [facility] on 01/23/24 Added from external infection. Source: [facility] - [facility], [facility]. 07/06/2017 documented as of this encounter Care Teams Insole And Outsole Preparer Relationship Specialty Start Date End Date No, Physician PCP - General 04/10/24 documented as of this encounter
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
--- OUTSIDE RECORDS SUMMARY | 2024-08-23 18:36 | XMS_ITS | Encounter Summary ---
Author Organization [facility] Address [address] [place] [address] Care Team Providers Care Milk Collector Name Role Phone No, Physician Primary Care Provider [phone] Encounter Details Date Type Department Care Team (Latest Contact Info) Description 04/18/2024 3:57 PM CDT - 04/18/2024 11:59 PM CDT Hospital Encounter [facility] Emergency, Room R Discharge Disposition: Discharge to home or self care Social History Tobacco Use Types Packs/Day Years Used Date Smoking Tobacco: Every Day Cigarettes [facility] Utilities Answer Date Recorded In the past 12 months has [employer] electric, gas, oil, or water company threatened [...] often do you attend chur ch or yazidi services? 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 Source: [facility] - [facility], [facility]. 07/06/2017 documented as of this encounter Care Teams Milk Collector Relationship Specialty Start Date End Date No, Physician PCP - General 04/10/24 documented as of this encounter
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
--- OUTSIDE RECORDS SUMMARY | 2024-08-23 18:38 | XMS_ITS | Encounter Summary ---
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 Outcome: Progressing 04/06/2024 050 by Lila Barclay RN Outcome: Progressing Goal: Ability to maintain intracranial pressure will improve 04/06/2024 0502 by Lila Barclay RN Outcome: Progressing 04/06/2024 050 by Lila Barclay RN Outcome: Progressing Problem: Musculoskeletal Goal: Maintain proper alignment of affected body part 04/06/2024 0502 by Lila Barclay RN Outcome: Progressing 04/06/2024 050 by Lila Barclay RN Outcome: Progressing Goal: Return mobility to safest level of function 04/06/2024 0502 by Lila Barclay RN Outcome: Progressing 04/06/2024 050 by Lila Barclay RN Outcome: Progressing Goal: Return ADL status to a safe level of function 04/06/2024 0502 by Lila Barclay RN Outcome: Progressing 04/06/2024 050 by Lila Barclay RN Outcome: Progressing Goal: Ability to perform activities at highest level will improve 04/06/2024 0502 by Lila Barclay RN Outcome: Progressing 04/06/2024 050 by Lila Barclay RN Outcome: Progressing Goal: Mobility, ROM and muscle strength will improve 04/06/2024 0502 by Lila Barclay RN Outcome: Progressing 04/06/2024 050 by Lila Braclay RN Outcome: Progressing Problem: Infection Goal: Absence of infection during hospitalization 04/06/2024 0502 by Lila Barclay RN Outcome: Progressing 04/06/2024 050 by Lila Barclay RN Outcome: Progressing Goal: Absence of fever/infection during anticipated neutropenic period 04/06/2024 0502 by Lila Barclay RN Outcome: Progressing 04/06/2024 050 by Lila Barclay RN Outcome: Progressing Problem: Metabolic/Fluid and Electrolytes Goal: Glucose maintained within prescribed range 04/06/2024 0502 by Lila Barclay RN Outcome: Progressing 04/06/2024 050 by Lila Barclay RN Outcome: Progressing Problem: Skin/Tissue Integrity Goal: Skin integrity remains intact 04/06/2024 0502 by Lila Barclay RN Outcome: Progressing 04/06/2024 050 by Lila Barclay RN Outcome: Progressing Goal: Incisions, wounds, or drain sites healing without S/S of infection 04/06/2024 0502 by Lila Barclay RN Outcome: Progressing 04/06/2024 050 by Lila Barclay RN Outcome: Progressing Problem: Activity Goal: Patient's tolerance of increased activity will improve 04/06/2024 050 by Lila Barclay RN Outcome: Progressing 04/06/2024 050 by Lila Barclay RN Outcome: Progressing Goal: Patient will maintain or regain ADL function 04/06/2024 050 by Lila Barclay RN Outcome: Progressing 04/06/2024 050 by Lila Barclay RN Outcome: Progressing Goals: Clinical Goals for the Shift: pain management, q2 turn, monitor vitals, and Blood glucose. [facility] Goal for Treatment: Mobility, Pain management Summary: Pt is awake and resting. Pain management provided. VSS, Blood glucose staple. pt is A&Ox4. * Plan of Care - Brooke Junior RN - 04/05/2024 4:30 PM CDT Goals: Clinical Goals for the Shift: VSS, Prevent Falls,Pain Control, Promote rest, monitor wounds [facility] Goal for Treatment: Mobility, Pain management Summary: VSS, safety maintained, [place] in place and aligned, pain controlled by medication, pt call light within reach, pt denies needs at this time. Problem: Discharge Planning Goal: Understanding discharge needs will improve Outcome: Progressing Problem: Skin Integrity Impairment Risk Goal: Mobility will improve Outcome: Progressing Goal: Understanding of ways to prevent future skin breakdown will improve Outcome: Progressing Goal: Nutritional status will improve Outcome: Progressing Goal: Risk for impaired skin integrity will decrease Outcome: Progressing Problem: Lack of Knowledge Goal: [...] prevent or decrease complications related to Type 1 Diabetes will improve Outcome: Progressing Goal: Ability to describe self care measures that may prevent or decrease complications related to Type 2 Diabetes will improve Outcome: Progressing Problem: Health Nutrition Goal: Nutritional intake and knowledge related to Diabetes will improve Outcome: Progressing Problem: Neurosensory Goal: Achieves stable or improved neurological status Outcome: Progressing Goal: Remains free of injury related to seizures activity Outcome: Progressing Goal: Achieves maximal functionality and self care Outcome: Progressing Goal: Ability to maintain intracranial pressure will improve Outcome: Progressing Problem: Musculoskeletal Goal: Maintain proper alignment of affected body part Outcome: Progressing Goal: Return mobility to safest level of function Outcome: Progressing Goal: Return ADL status to a safe level of function Outcome: Progressing Goal: Ability to perform activities at highest level will improve Outcome: Progressing Goal: Mobility, ROM and muscle strength will improve Outcome: Progressing Problem: Infection Goal: Absence of infection during hospitalization Outcome: Progressing Goal: Absence of fever/infection during anticipated neutropenic period Outcome: Progressing Problem: Metabolic/Fluid and Electrolytes Goal: Glucose maintained within prescribed range Outcome: Progressing Problem: Fall Risk Goal: Ability to state ways to decrease the risk of falls will improve Outcome: Progressing Goal: Will remain free from falls Outcome: Progressing Goal: Will remain free from injury from falls Outcome: Progressing Problem: Skin/Tissue Integrity Goal: Skin integrity remains intact Outcome: Progressing Goal: Incisions, wounds, or drain sites healing without S/S of infection Outcome: Progressing Problem: Activity Goal: Patient's tolerance of increased activity will improve Outcome: Progressing Goal: Patient will maintain or regain ADL function Outcome: Progressing * Plan of Care - Aditi Pandya RN - 04/05/2024 3:31 AM CDT Problem: Discharge Planning Goal: Understanding discharge needs will improve Outcome: Ongoing Flowsheets (Taken 04/04/2024444) Understanding of discharge needs will improve: Discuss information regarding discharge instructions Identify discharge learning needs (meds, wound care, etc.) Arrange for needed discharge resources and transportation as appropriate Identify discharge barriers Problem: Skin Integrity Impairment Risk Goal: Mobility will improve Outcome: Ongoing Flowsheets (Taken 04/04/2024444) Mobility will improve: Encourage turning and repositioning, assist as needed Encourage mobilization to extent of ability, assist with range of motion as needed Assess circulation, sensation and/or motion of extremity Goal: Understanding of ways to prevent future skin breakdown will improve Outcome: Ongoing Flowsheets (Taken 03/30/2024 2341 by Leighann Solitario) Understanding of ways to prevent future skin breakdown will improve: Discuss treatments to protect skin integrity Discuss treatment plan for related conditions Goal: Nutritional status will improve Outcome: Ongoing Goal: Risk for impaired skin integrity will decrease Outcome: Ongoing Flowsheets (Taken 04/04/2024444) Risk for impaired skin integrity will decrease: Identify risk factors for impaired skin integrity and/or pressure injuries Monitor skin integrity, appearance and temperature Implement precautions to protect skin integrity Use moisturizing agent to dry skin Float heels off surface Problem: Fall Risk Goal: Ability to state ways to decrease the risk of falls will improve Outcome: Ongoing Goal: Will remain free from falls Outcome: Ongoing Goal: Will remain free from injury from falls Outcome: Ongoing Problem: Medication Goal: Satisfaction with pain management medication regimen will improve Outcome: Ongoing Problem: Sensory Goal: Ability to identify factors that increase pain levels will improve while working to decrease the patient's pain levels Outcome: Ongoing Goals: Clinical Goals for the Shift: VSS, Prevent Falls,Pain Control, Promote rest, monitor wounds [facility] Goal for Treatment: Mobility, Pain management Summary: * Plan of Care - Desi Wang RN - 04/04/2024 9:43 AM CDT CM placed call to [place] at [phone], asked for Akanksha. No answer. Left voicemail message. CM to bedside to discuss discharge planning. Patient currently working with staff in room. CM to follow for discharge needs. * Plan of Care - Aditi Pandya RN - 04/04/2024 4:47 AM CDT Problem: Skin Integrity Impairment Risk Goal: Mobility will improve Outcome: Progressing Flowsheets (Taken 04/04/2024444) Mobility will improve: Encourage turning and repositioning, assist as needed Encourage mobilization to extent of ability, assist with range of motion as needed Assess circulation, sensation and/or motion of extremity Goal: Understanding of ways to prevent future skin breakdown will improve Outcome: Progressing Flowsheets (Taken 03/30/2024 234 by Leighann Solitario) Understanding of ways to prevent future skin breakdown will improve: Discuss treatments to protect skin integrity Discuss treatment plan for related conditions Goal: Nutritional status will improve Outcome: Progressing Goal: Risk for impaired skin integrity will decrease Outcome: Progressing Flowsheets (Taken 04/04/2024444) Risk for impaired skin integrity will decrease: Identify risk factors for impaired skin integrity and/or pressure injuries Monitor skin integrity, appearance and temperature Implement precautions to protect skin integrity Use moisturizing agent to dry skin Float heels off surface Problem: Fall Risk Goal: Ability to state ways to decrease the risk of falls will improve Outcome: Progressing Flowsheets (Taken 04/04/2024444) Ability to state ways to decrease the risk of falls will improve: Teach fall prevention measures Goal: Will remain free from falls Outcome: Progressing Flowsheets (Taken 03/30/2024 234 by Leighann Solitario) Will remain free from falls: Assess risk factors for falls Implement fall prevention measures Goal: Will remain free from injury from falls Outcome: Progressing Flowsheets (Taken 03/30/2024 1056 by Buffy Washington) Will remain free from injury from falls: Provide safe environment for conduction of activities of daily living in hospital environment Problem: Lack of Knowledge Goal: Ability to develop a pain control plan will improve Outcome: Progressing Flowsheets (Taken 04/04/2024444) Ability to develop a pain control plan will improve: Explain causes of pain and how long pain can be expected to last Teach information regarding pain management Educate pain scale for assessing level of pain Problem: Medication Goal: Satisfaction with pain management medication regimen will improve Outcome: Progressing Flowsheets (Taken 04/04/2024444) Satisfaction with pain management medication regimen will improve: Monitor patient controlled analgesia or anesthesia Manage analgesics Problem: Sensory Goal: Ability to identify factors that increase pain levels will improve while working to decrease the patient's pain levels Outcome: Progressing Flowsheets (Taken 04/04/2024444) Ability to identify factors that increase pain levels will improve while working to decrease patients pain levels: Assess pain status Problem: Health Behavior Goal: Identification of resources available to assist in meeting health care needs will improve Outcome: Progressing Problem: Lack of Knowledge Goal: Ability to describe self care measures that may prevent or decrease complications related to Type 1 Diabetes will improve Outcome: Progressing Goal: Ability to describe self care measures that may prevent or decrease complications related to Type 2 Diabetes will improve Outcome: Progressing Problem: Health Nutrition Goal: Nutritional intake and knowledge related to Diabetes will improve Outcome: Progressing Problem: Musculoskeletal Goal: Maintain proper alignment of affected body part Outcome: Progressing Flowsheets (Taken 04/04/2024444) Maintain proper alignment of affected body part: Support and protect limb and body alignment per provider's orders Instruct and reinforce with patient and family use of appropriate assistive device and precautions (e.g. spinal or hip dislocation precautions) Goal: Return mobility to safest level of function Outcome: Progressing Goal: Return ADL status to a safe level of function Outcome: Progressing Goal: Ability to perform activities at highest level will improve Outcome: Progressing Goal: Mobility, ROM and muscle strength will improve Outcome: Progressing Problem: Infection Goal: Absence of infection during hospitalization Outcome: Progressing Goal: Absence of fever/infection during anticipated neutropenic period Outcome: Progressing Problem: Metabolic/Fluid and Electrolytes Goal: Glucose maintained within prescribed range Outcome: Progressing Problem: Skin/Tissue Integrity Goal: Skin integrity remains intact Outcome: Progressing Flowsheets (Taken 04/04/2024444) Skin integrity remains intact: Assess and document risk factors for pressure injury development Assess and document skin integrity Monitor for areas of redness and/or skin breakdown Goal: Incisions, wounds, or drain sites healing without S/S of infection Outcome: Progressing Problem: Activity Goal: Patient's tolerance of increased activity will improve Outcome: Progressing Goal: Patient will maintain or regain ADL function Outcome: Progressing Goals: Clinical Goals for the Shift: VSS, Prevent Falls,Pain Control, Promote rest, monitor wounds [facility] Goal for Treatment: Mobility, Pain management * Plan of Care - Joaquina Cox - 04/02/2024 10:29 PM CDT Goals: Clinical Goals for the Shift: VSS, Prevent Falls,Pain Control, Promote rest, monitor wounds [facility] Goal for Treatment: Mobility, Pain management Summary: No new changes. Problem: Discharge Planning Goal: Understanding discharge needs [...] from injury from falls Outcome: Progressing Problem: Lack of Knowledge Goal: [...] care needs will improve Outcome: Progressing Problem: Health Nutrition Goal: Nutritional intake and knowledge related to Diabetes will improve Outcome: Progressing Problem: Neurosensory Goal: Achieves stable or improved neurological status Outcome: Progressing Goal: Remains free of injury related to seizures activity Outcome: Progressing Goal: Achieves maximal functionality and self care Outcome: Progressing Goal: Ability to maintain intracranial pressure will improve Outcome: Progressing Problem: Musculoskeletal Goal: Maintain proper alignment of affected body part Outcome: Progressing Goal: Return mobility to safest level of function Outcome: Progressing Goal: Return ADL status to a safe level of function Outcome: Progressing Goal: Ability to perform activities at highest level will improve Outcome: Progressing Goal: Mobility, ROM and muscle strength will improve Outcome: Progressing Problem: Infection Goal: Absence of infection during hospitalization Outcome: Progressing Goal: Absence of fever/infection during anticipated neutropenic period Outcome: Progressing Problem: Metabolic/Fluid and Electrolytes Goal: Glucose maintained within prescribed range Outcome: Progressing Problem: Skin/Tissue Integrity Goal: Skin integrity remains intact Outcome: Progressing Goal: Incisions, wounds, or drain sites healing without S/S of infection Outcome: Progressing Problem: Activity Goal: Patient's tolerance of increased activity will improve Outcome: Progressing Goal: Patient will maintain or regain ADL function Outcome: Progressing * [facility]IN Note - Desi Wang RN - 04/02/2024 4:25 PM CDT Images from the original note were not included. Patient Information: Wound Info Only Active Wound Assessment Active Wound / Pressure injury / [place] / Negative Pressure Wound / Incision Wound 03/09/24 Toe D1, great Anterior;Left Ulceration (non-pressure ulcer) wound assessed 03/10/24--will not follow Date First Assessed 03/09/24 Site Toe D1, great Time First Assessed 0600 Days 24 Location Orientation: Anterior;Left Additional wound location identifiers: Ulceration (non-pressureulcer) wound assessed 03/10/24--will not follow Assessments Row Name 04/02/24 0800 04/01/24 0900 Dressing Status Clean/Dry/Intact Clean/Dry/Intact;Changed Site Assessment HOLLY Clean;Color appropriate for ethnicity Wound 03/13/24 Incision Back Date First Assessed 03/13/24 Site Back Time First Assessed 8 Days 19 Primary Wound Type: Incision Assessments Row Name 04/02/24 0800 04/01/24 0900 Dressing Status Clean/Dry/Intact Clean/Dry/Intact Wound 03/18/24 MASD (Moisture associated skin damage) Groin Anterior;Left Date First Assessed 03/18/24 Site Groin Time First Assessed 1703 Days 14 Present on Original Admission: N Primary Wound Type: MASD Location Orientation: Anterior;Left Assessments Row Name 04/02/24 0800 04/01/24 0900 Dressing Status Open to Air Open to Air Site Assessment Intact;[place] Red;Intact Wound 03/19/24 MASD (Moisture associated skin damage) Perineum Posterior redness, tender Date First Assessed 03/19/24 Site Perineum Time First Assessed 1200 Days 14 Present on Original Admission: N per pt Primary Wound Type: MASD Location Orientation: Posterior Additional wound location identifiers: redness, tender Assessments Row Name 04/02/24 0800 04/01/24 0900 Dressing Status Open to Air Open to Air Site Assessment Dusky;Excoriated;Fragile Dusky;Excoriated;Fragile Wound 03/22/24 Blister Flank Right;Lower;Lateral Date First Assessed 03/22/24 Site Flank Time First Assessed 0900 Days 11 Primary Wound Type: Blister Location Orientation: Right;Lower;Lateral Assessments * [facility]IN Note - Desi Wang RN - 04/02/2024 4:25 PM CDT Images from the original note were not included. Patient Information: OT Eval and Treat Last 72 Hours OT Evaluation No documentation. OT Treatment Row Name 04/02/24 1456 04/01/24 1442 03/31/24 1330 03/26/24 1635 Session Type Treatment -ER Treatment -ER Treatment -ER -- OT Received On 04/02/24 -ER 04/01/24 -ER 03/31/24 -ER -- Safe Environment Arm band checked;Patient found in supine;Gait belt utilized for all out of bed mobility -ER Arm band checked;Patient found in supine;Gait belt utilized for all out of bed mobility -ER Arm band checked;Patient found in supine;Gait belt utilized for all out of bed mobility -ER -- Subjective Agreeable to Therapy -ER Agreeable to Therapy -ER Agreeable to Therapy -ER -- OT Missed Visit Reason -- -- -- Other (comment) -CE Family/Caregiver Present No -ER No -ER No -ER -- Precautions Fall risk;Cervical spine;Spinal/Back -ER Fall risk;Spinal/Back;Cervical spine -ER Fall risk;Cervical spine;Spinal/Back -ER -- Weight Bearing Restrictions Yes -ER Yes -ER Yes -ER -- RUE Weight Bearing WBAT -ER WBAT -ER WBAT -ER -- LUE Weight Bearing WBAT -ER WBAT -ER WBAT -ER -- RLE Weight Bearing WBAT -ER WBAT -ER WBAT -ER -- LLE Weight Bearing WBAT -ER WBAT -ER WBAT with post-op shoe -ER -- Braces/Orthoses Other CTLSO, bilateral post op shoes -ER Other CTLSO, bilateral post op shoes -ER Other CTLSO -ER -- Precaution Handout Issued No -ER No -ER No -ER -- Precaution Comments pt demonstrates understanding of precautions -ER reviewed precautions; pt demonstrates understanding of precautions -ER verbally reviewed precautions and states understanding -ER -- Pain Assessment 0-10 -ER 0-10 -ER 0-10 -ER -- Pain Score 8 -ER 4 -ER 9 -ER -- Pain Location Arm -ER Arm -ER Back (Lumbar) -ER -- Pain Interventions RN Notified -LOGISTICS OFFICER Notified -LOGISTICS OFFICER Notified -ER -- Balance Yes -ER Yes -ER Yes -ER -- Static Sitting-Balance Support Feet supported -ER Feet supported -ER Feet supported -ER -- Static Sitting-Sitting Surface Chair -ER Chair -ER Chair -ER -- Static Sitting-Level of Assistance Independent -ER Distant supervision -ER Distant supervision -ER -- Static Sitting-Comment/# of Minutes -- safety -ER safety -ER -- Dynamic Sitting-Balance Support Feet supported -ER Feet supported -ER Feet supported -ER -- Dynamic Sitting-Balance Reaching for objects -ER Reaching for objects -ER Reaching for objects -ER -- Dynamic Sitting-Sitting Surface Chair -ER Chair -ER Chair -ER -- Dynamic Sitting-Level of Assistance Distant supervision -ER Distant supervision -ER Distant supervision -ER -- Dynamic Sitting-Comments safety -ER safety -ER safety -ER -- Static Standing-Balance Support Bilateral upper extremity supported -ER Bilateral upper extremity supported -ER Bilateral upper extremity supported -ER -- Static Standing-Standing Surface Floor -ER Floor -ER Floor -ER -- Static Standing-Level of Assistance Distant supervision -ER Close supervision - ER Close supervision-ER -- Static Standing-Comment/# of Minutes safety -ER safety -ER safety -ER -- Dynamic Standing-Balance Support Bilateral upper extremity supported -ER Bilateral upper extremity supported -ER Bilateral upper extremity supported -ER -- Dynamic Standing-Balance Forward lean;Reaching for objects -ER Forward lean;Reaching for objects -ER Forward lean -ER -- Dynamic Standing-Standing Surface Floor -ER Floor -ER Floor -ER -- Dynamic Standing-Level of Assistance Close supervision -ER Close supervision -ER Contact guard -ER -- Dynamic Standing-Comments safety -ER safety -ER safety/steayding -ER -- ADLS (WDL) X -ER X -ER X -ER -- Grooming: Where assessed Standing at sink -ER Standing at sink -ER -- -- Grooming: Level of assistance Standby Assist -ER Contact Guard Assist -ER -- -- Grooming: Assistance with Safety -ER Increased time to complete;Balance -ER -- -- LE Dressing: Where assessed -- -- Chair -ER -- LE Dressing: Level of assistance -- -- Maximum Assist -ER -- LE Dressing: Assistance with -- -- Increased time to complete;Supervision/safety;Verbal cueing;Requires assistive device for steadying;Don/doff R sock;Don/doff L sock;Thread RLE into pants;Thread LLEinto pants;Thread RLE into underwear;Thread LLE into underwear;Pull up over hips;Maintains precautions -ER -- Toileting: Where assessed -- Bedside Commode -ER -- -- Toileting: Level of assistance -- Standby Assist -ER -- -- Toileting: Assistance with -- Increased time to complete;Balance -ER -- -- Room Mobility: Where assessed chair <> bathroom -ER chair <> bathroom sink -ER chair <> door way -ER -- Health Management: Equipment Walker -ER Walker -ER Walker -ER -- Room Mobility: Level of Assistance Contact Guard Assist -ER Contact Guard Assist -ER Contact Guard Assist -ER -- Room Mobility comment safety/steadying -ER safety/steadying -ER safety/steadying -ER -- Bed Mobility No -ER No -ER No -ER -- Transfer Yes -ER Yes -ER Yes -ER -- Transfer From 1 Sit -ER Sit -ER Sit -ER -- Transfer Type 1 To and from -ER To and from -ER To and from -ER -- Transfer to 1 Stand -ER Stand -ER Stand -ER -- Technique 1 Sit to stand;Stand to sit -ER Sit to stand;Stand to sit -ER Sit to stand;Stand to sit -ER -- Transfer Device 1 Wheeled walker -ER Wheeled walker -ER Wheeled walker -ER -- Transfer Level of Assistance 1 Standby Assist -ER Standby Assist -ER Contact Guard Assist -ER -- Trials/Comments 1 safety -ER safety -ER safety/steadying -ER -- Toilet Transfer From -- Chair with arms -ER -- -- Toilet Transfer Type -- To and from -ER -- -- Toilet Transfer to -- Standard bedside commode -ER -- -- Toilet Transfer Technique -- Ambulating -ER -- -- Toilet Transfer: Equipment -- Wheeled walker -ER -- -- Toilet Transfers -- Contact guard -ER -- -- Toilet Transfers Comments -- safety/steayding -ER -- -- Arousal/Alertness Alert -ER Alert -ER Alert -ER -- Attention Span Appears intact -ER Appears intact -ER Appears intact -ER -- Memory Appears intact -ER Appears intact -ER Appears intact -ER -- Current communication Appears Intact -ER Appears Intact -ER Appears Intact -ER -- Orientation Oriented X4 (person, place, time, situation) -ER Oriented X4 (person, place, time, situation) -ER Oriented X4 (person, place, time, situation) -ER -- Following Commands Follows all commands and directions without difficulty -ER Follows all commands and directions without difficulty -ER Follows all commands and directions without difficulty -ER -- Safety Judgment Good awareness of safety precautions -ER Good awareness of safety precautions -ER Good awareness of safety precautions -ER -- Awareness of Errors Good awareness of errors made -ER Good awareness of errors made -ER Good awareness of errors made -ER -- Insight Fully aware of deficits -ER Fully aware of deficits -ER Fully aware of deficits -ER -- Problem Solving Able to problem solve independently -ER Able to problem solve independently -ER Able to problem solve independently -ER -- Compliance/Behavior Easy to engage;Tearful -ER Easy to engage -ER Easy to engage -ER -- Perseveration Not present -ER Not present -ER Not present -ER -- Comments -- -- Further mobility and ADL intervention limited this session 2/2 pt's elevated pain and emotions. Pt tearful when talking about a recent family loss and her frustration with her RUE weakness. RN notified and states team is aware of pt's RUE weakness/pain. Will continue to follow pt forOT services to progress functional mobiltiy and independence with ADLs -ER Patient declined therapyon this date d/t family emergency. Upon therapist entering room, patient stated I have had a horrible day. I got the news earlier that my nephew was found in his house. Patient was very upset.Therapist asked if patient would like to see spiritual care, and she said she already saw them thismorning. Will attempt to see again at another time/date. -CE Putting on and taking off regular lower body clothing 2 -ER 2 -ER 2 -ER -- Bathing 2 -ER 2 -ER 2 -ER -- Toileting 3 -ER 3 -ER 2 -ER -- Putting on and taking off upper body clothing 3 -ER 3 -ER 2 -ER -- Personal Grooming 3 -ER 3 -ER 3 -ER -- Eating Meals 4 -ER 4 -ER 4 -ER -- Total Score (range 6-24) 17 -ER 17 -ER 15 -ER -- Score Interpretation 37.26 -ER 37.26 -ER 34.69 -ER -- Safe Environment End of Therapy Session Patient left in recliner;Chair alarm in place and activated;Call light within reach;Overbed table within reach -ER Patient left in recliner;Chair alarm in place and activated;RN notified;Call light within reach;Overbed table within reach -ER Patient left in recliner;RN notified;Call light within reach;Overbed table within reach;Chair alarm in place and activated -ER -- Problem List Decreased upper extremity range of motion;Decreased upper extremity strength;Decreasedendurance;Decreased balance;Decreased functional mobility;Decreased ADL independence;Decreased IADLindependence;Decreased fine motor control;Decreased frequency/variety of movement;Pain -ER Decreased upper extremity range of motion;Decreased upper extremity strength;Decreased endurance;Decreased balance;Decreased functional mobility;Decreased ADL independence;Decreased IADL independence;Decreased fine motor control;Decreased frequency/variety of movement;Pain -ER Decreased upper extremity range of motion;Decreased upper extremity strength;Decreased endurance;Decreased balance;Decreased functional mobility;Decreased ADL independence;Decreased IADL independence;Decreased fine motor control;Decreased frequency/variety of movement;Pain -ER -- Barriers to Discharge Current Mobility Status;Current ADL Status;Decreased caregiver support -ER Current Mobility Status;Current ADL Status;Decreased caregiver support -ER Current Mobility Status;Current ADL Status;Decreased caregiver support -ER -- Barrier Comments fall risk -ER fall risk -ER fall risk -ER -- Plan Continue with current plan;If this is the last note, consider this the discharge summary -ER Continue with current plan;If this is the last note, consider this the discharge summary -ER Continuewith current plan;If this is the last note, consider this the discharge summary -ER -- OT Recommendation Alf Facility -ER Alf Facility -ER Alf Facility -ER -- Patient at high risk for Falls;Readmission;Injury due to decreased ability to care for self;Injury due to reduced functional status;Injury due to balance deficits;Injury at home as patient has not returned to prior level of function;Developing impaired skin integrity -ER Falls;Readmission;Injury due to decreased ability to care for self;Injury due to reduced functional status;Injury due to balance deficits;Injury at home as patient has not returned to prior level of function;Developing impairedskin integrity -ER Falls;Readmission;Injury due to decreased ability to care for self;Injury due to reduced functional status;Injury due to balance deficits;Injury at home as patient has not returnedto prior level of function;Developing impaired skin integrity -ER -- Recommend SNF due to Risk of injury at home;Unable to safely care for self in the home;Skilled therapy needed to address care for self in the home;Skilled therapy needed to address functional deficits;Skilled therapy needed for patient to return to prior level of independence -ER Risk of injury at home;Unable to safely care for self in the home;Skilled therapy needed to address care for self in the home;Skilled therapy needed to address functional deficits;Skilled therapy needed for patient to return to prior level of independence -ER Risk of injury at home;Unable to safely care for self in the home;Skilled therapy needed to address care for self in the home;Skilled therapy needed to address functional deficits;Skilled therapy needed for patient to return to prior level of independence -ER -- OT Frequency during current admission 5-7x/wk -ER 5-7x/wk -ER 5-7x/wk -ER -- Treatment/Interventions during current admission ADL/IADL retraining;Balance Training;Bed mobility;Compensatory technique education;Endurance training;Functional activity;Functional mobility training;Functional transfer training;Strengthening;Therapeutic exercise;Therapeutic activity;Transfer traini ng -ER ADL/IADL retraining;Balance Training;Bed mobility;Compensatory technique education;Endurancetraining;Functional activity;Functional mobility training;Functional transfer training;Strengthening;Therapeutic exercise;Therapeutic activity;Transfer training -ER ADL/IADL retraining;Balance Training;Bed mobility;Compensatory technique education;Endurance training;Functional activity;Functional mobility training;Functional transfer training;Strengthening;Therapeutic exercise;Therapeutic activity;Transfer training -ER -- Progress during current admission Progressing toward goals -ER Progressing toward goals -ER Progressing toward goals -ER -- OT - Next Appointment 04/03/24 -ER 04/02/24 -ER 04/01/24 -ER -- OT Evaluation Complete Yes -ER Yes -ER Yes -ER -- Start Time 1456 -ER 1442 -ER 1330 -ER -- Stop Time 1519 -ER 1505 -ER 1357 -ER -- Time Calculation (min) 23 min -ER 23 min -ER 27 min -ER -- User Ferro (r) = Recorded By, (t) = Taken By, (c) = Cosigned By Initials Name Effective Dates ER Karuna Justice, OT 07/02/23 - CE Montse Marte 01/29/24 - OT Notes 03/31/2024 3:56 PM Progress Notes signed by Karuna Justice OT 04/01/2024 3:43 PM Progress Notes signed by Karuna Justice, OT 04/02/2024 3:54 PM Progress Notes signed by Karuna Justice, OT , PT Eval and Treat Last 72 Hours PT Evaluation No documentation. PT TREATMENT (Last 168 Hours) PT Treatment Row Name 04/02/24 0943 04/01/24 1139 04/01/24 0841 03/31/24 0954 03/30/24 1156 PT Last Visit Session Type Treatment -AK Treatment -AK -- Treatment - -- Safe Environment Arm band checked;Gait belt utilized for all out of bed mobility;Patient found in supine -AK Arm band checked;Gait belt utilized for all out of bed mobility;Patient found sitting at edge of bed -AK -- Patient found in supine;Arm band checked;Session completed bedside;Gait belt not utilized, see comment d/t TLSO -MH -- Subjective Agreeable to Therapy -AK Agreeable to Therapy -AK -- Agreeable to Therapy -MH -- Subjective Comment -- -- -- My right arm is hurting a lot. It has been hurting for a couple of days. I am limited in how far I can straighten it due to pain. -MH -- PT Missed Visit Reason -- -- Patient declined due to timing (before breakfast), stated WAREHOUSE STOCK CLERK could return after breakfast -AK -- Patient declined Pat in tears & reported being in significant pain 04/22, 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 -AK Family/Caregiver Present No -AK No -AK -- No - -- Precautions Precautions Fall risk;Cervical spine;Spinal/Back -AK Fall risk;Spinal/Back;Cervical spine -AK -- Fall risk;Cervical spine;Spinal/Back - -- Weight Bearing Restrictions Yes -AK Yes -AK -- Yes - -- RUE Weight Bearing WBAT -AK WBAT -AK -- WBAT - -- LUE Weight Bearing WBAT -AK WBAT -AK -- WBAT - -- RLE Weight Bearing WBAT -AK WBAT -AK -- WBAT - -- LLE Weight Bearing WBAT -AK WBAT -AK -- WBAT in post op shoe - -- Braces/Orthoses Other CTLSO, bilateral post op shoes -WY Other CTLSO, was donned prior to WAREHOUSE STOCK CLERK entering room, donned throughout session; Bilat post-op shoes -WY -- Other CTLSO - -- Precaution Comments Pat able to state & demonstrate spinal precautions -WY reviewed precautionsprior to mobility -WY -- Verbally reviewed precautions and states understanding. - -- Activity Tolerance Activity Tolerance Comments kendell 13 -AK kendell not assessed -WY -- Kendell: SH () - -- Pain Assessment Pain Assessment 0-10 -WY 0-10 -WY -- -- -- Pain Interventions RN Notified [facility]x -PHU RN Notified [facility] (by Pat) -WY -- -- -- Cognition Arousal/Alertness -- -- -- Alert;Appropriate responses to stimuli - -- Orientation -- -- -- Oriented X4 (person, place, time, situation) - -- Following Commands -- -- -- Follows all commands and directions without difficulty - -- Balance Balance -- Yes -AK -- -- -- Static Sitting Balance Static Sitting-Balance Support -- -- -- Feet supported;No upper extremity supported - -- Static Sitting-Sitting Surface -- -- -- Chair;Bed - -- Static Sitting-Level of Assistance -- -- -- Distant supervision - -- Static Sitting-Comment/# of Minutes -- -- -- safety - -- Static Standing Balance Static Standing-Balance Support -- Bilateral upper extremity supported WW -WY -- Bilateral upper extremity supported - -- Static Standing-Standing Surface -- Floor -AK -- Floor - -- Static Standing-Level of Assistance -- Close supervision -WY -- Close supervision - -- Static Standing-Comment/# of Minutes -- safety -WY -- safety, with walker - -- Dynamic Standing Balance Dynamic Standing-Balance Support -- Unilateral upper extremity supported WW -AK -- -- -- Dynamic Standing-Balance -- Forward lean;Reaching for objects -AK -- -- -- Dynamic Standing-Standing Surface -- Floor -AK -- -- -- Dynamic Standing-Level of Assistance -- Minimum assistance -WY -- -- -- Dynamic Standing-Comments -- assist with balance as Pat reaching for items on counter -WY -- -- -- Bed Mobility Bed Mobility Yes -AK No -AK -- -- -- Bed Mobility 1 Bed Mobility From 1 Supine -AK -- -- Supine - -- Bed Mobility Type 1 To and from -WY -- -- To and from - -- Bed Mobility to 1 Rolling right;Rolling left -WY -- -- Rolling right;Rolling left - -- Level of Assistance 1 Standby Assist;Minimal verbal cues;Minimal tactile cues - WY -- -- Standby Assist;Minimal verbal cues - -- Bed Mobility Comments 1 HOB flat, cues for logroll technique -AK -- -- cues for positioning - -- Bed Mobility 2 Bed Mobility From 2 Supine -AK -- -- Side lying-left - -- Bed Mobility Type 2 To -AK -- -- To - -- Bed Mobility to 2 Edge of Bed -AK -- -- Edge of Bed - -- Level of Assistance 2 Minimum Assist;Minimal verbal cues;Minimal tactile cues - WY -- -- Minimum Assist;Minimal verbal cues - -- Bed Mobility Comments 2 HOB flat; cues for logroll technique; assist with force production for roll, trunk elevation -AK -- -- assist maneuvering BLE and trunk - -- Transfers Transfer Yes -AK Yes -AK -- -- -- Transfer 1 Transfer From 1 Bed;Commode-[place] -[place] Sit -AK -- Sit - -- Transfer Type 1 To -AK To and from -AK -- To and from - -- Transfer to 1 Commode-standard;Chair with arms -AK Stand -WY -- Stand - -- Technique 1 Ambulation -AK Sit to stand;Stand to sit -AK -- Sit to stand;Stand to sit - -- Transfer Device 1 Wheeled walker -AK Wheeled walker -AK -- Wheeled walker - -- Transfer Level of Assistance 1 Standby Assist -WY Contact Guard Assist;Minimal verbal cues -WY -- Minimum Assist;Minimal verbal cues - -- Trials/Comments 1 cues for technique, hand placement, no LOB with mobility this date; WAREHOUSE STOCK CLERK performedperineal care. -WY safety, cues for technique & proper WW fit; x2 reps -WY -- assist with forceproduction, balance, and cues for positioning. -MH -- Transfers 2 Transfer From 2 -- -- -- Bed - -- Transfer Type 2 -- -- -- To - -- Transfer to 2 -- -- -- Commode-standard - -- Technique 2 -- -- -- Stand and step - -- Transfer Device 2 -- -- -- Wheeled walker - -- Transfer Level of Assistance 2 -- -- -- Minimum Assist;Minimal verbal cues - -- Trials/Comments 2 -- -- -- assist steadying - -- Ambulation Functional Ambulation Category 3 -AK 2 -AK -- 2 -MH -- Ambulation Yes -AK Yes -AK -- Yes - -- Ambulation 1 Distance (ft) 1 100 -AK 50 -AK -- 40 -MH -- Surface 1 Level tile -AK Level tile -AK -- Level tile - -- Device 1 Wheeled walker -AK Wheeled walker -WY -- Wheeled walker - -- Assistance 1 Standby Assist;Minimal verbal cues -WY Minimum Assist;Minimal verbal cues -WY -- Minimum Assist;Minimal verbal cues - -- Gait: Requires assist with 1 -- Maintaining balance -WY -- Maintaining balance - -- Gait: Requires verbal cues to 1 Use assistive device safely;Improve upright posture;Pace activity -WY Use assistive device safely;Pace activity -WY -- Use assistive device safely;Improve upright posture - -- Gait Deviations 1 Antalgic;Base of support - decreased;[place] - decreased;Heel strike - decreased;Step length - decreased -AK Antalgic;[place] - decreased;Step length - decreased;Turns - difficulty -AK -- Antalgic;[place] - decreased;Posture - flexed;Step length - decreased - -- Ambulation Comments 1 1 seated break while using toilet -AK 2 LOB during turns & reaching for objects on couter -AK -- limited distance d/t RUE pain. RN and team notified - -- Stairs Stairs No -AK No -AK -- No - -- Basic Mobility - 6 Click How much difficulty does the patient have: Turning over in bed 3 -AK 3 -AK -- 3 -MH -- How much difficulty does the patient currently have: Sitting down and standing up from a chair witharms? 3 -AK 3 -AK -- 3 -MH -- How much difficulty does the patient have: Moving from lying on back to sitting on the side of the bed? 3 -AK 3 -AK -- 3 -MH -- How much difficulty does the patient have: Moving to and from a bed to a chair including wheelchair? 3 -AK 3 -AK -- 3 -MH -- How much help does the patient currently need: Walk in hospital room? 3 -AK 3 - AK -- 3 -MH -- How much help from another person does the patient currently need: Climbing 3-5 steps with a railing? 2 -AK 2 -AK -- 2 - -- Total 6 Click Score (range 6-24) 17 -AK 17 -AK -- 17 - -- Score Interpretation -- -- -- 39.67 - -- Safe Environment End of Therapy Session Safe Environment End of Therapy Session -- Patient left in chair;Chair alarm in place and activated;RN notified;Call light within reach;Overbed table within reach -AK -- Patient left in recliner;RN notified;Chair alarm in place and activated;Call light within reach;Overbed table within reach - -- Assessment Prognosis -- -- -- Good - -- Problem List -- -- -- Gait deviations;Impaired balance;Decreased mobility;Pain;Orthopedic restrictions - -- Barriers to Discharge -- -- -- Current Mobility Status - -- Plan Plan Continue with current plan -[place] Continue with current plan -[place] -- Continue with current plan;Ifthis is the last note, consider this the discharge summary - -- Recommendation/Plan PT Recommendation/Plan Alf Facility per PT -AK Alf Facility per PT -AK -- Alf Facility - -- Patient at high risk for -- -- -- Falls;Readmission;Injury due to reduced functional status;Injury at home as patient has not returned to prior level of function - -- Recommend Inpatient Rehab/Acute Rehab due to -- -- -- -- - -- Recommend SNF due to -- -- -- Risk of injury at home;Unable to safely care for self in the home;Skilled therapy needed to address functional deficits;Skilled therapy needed for patient to return to prior level of independence - -- PT Recommendation/Plan Comments -- -- -- Patient agreeable with PT POC - -- PT Frequency during current admission 5-7x/wk per PT -AK 5-7x/wk per PT -[place] -- 5-7x/wk - -- Treatment/Interventions during current admission -- -- -- Balance Training;Bed mobility;Functional transfer training;Gait training;Stair training;Therapeutic exercise;Therapeutic activity - -- Progress during current admission -- -- -- No functional improvements - -- Time Calculation Start Time 0943 -W[place] 1139 -AK -- 0954 - -- Stop Time 1011 -AK 1208 -AK -- 1032 - -- Time Calculation (min) 28 min -WY 29 min -W[place] -- 38 min - -- Row Name 03/28/24 1431 03/27/24 1353 PT Last Visit Session Type Treatment -SETH (r) MS (c) -- Safe Environment Patient found sitting in chair;Arm band checked;Gait belt utilized for all out of bed mobility -SETH (r) MS (c) -- Subjective Agreeable to Therapy -SETH (r) MS (c) -- PT Missed Visit Reason -- Patient declined pt nephew and she states she feels too sad to participate in therapy today. -NG Family/Caregiver Present No -SETH (r) MS (c) -- Current Functional Status PT Functional Mobility Interventions: Transfers, education, body mechanics, and therapeutic exercise. -SETH (r) MS (c) -- Precautions Precautions Fall risk;Cervical spine;Spinal/Back -SETH (r) MS (c) -- Weight Bearing Restrictions Yes -SETH (r) MS (c) -- RUE Weight Bearing WBAT -SETH (r) MS (c) -- LUE Weight Bearing WBAT -SETH (r) MS (c) -- RLE Weight Bearing WBAT -SETH (r) MS (c) -- LLE Weight Bearing WBAT post-op shoe -SETH (r) MS (c) -- Braces/Orthoses -- CTLSO, donned prior to treatment session -SETH (r) MS (c) -- Precaution Handout Issued No -SETH (r) MS (c) -- Precaution Comments Verbally reviewed and maintained precautions throughout treatment session -SETH (r) MS (c) -- Cognition Arousal/Alertness Alert;Appropriate responses to stimuli -SETH (r) MS (c) -- Balance Balance Yes -SETH (r) MS (c) -- Static Sitting Balance Static Sitting-Balance Support No upper extremity supported -SETH (r) MS (c) -- Static Sitting-Sitting Surface Chair -SETH (r) MS (c) -- Static Sitting-Level of Assistance Distant supervision -SETH (r) MS (c) -- Static Sitting-Comment/# of Minutes Safety -SETH (r) MS (c) -- Static Standing Balance Static Standing-Balance Support Bilateral upper extremity supported WW -SETH (r) MS (c) -- Static Standing-Standing Surface Floor -SETH (r) MS (c) -- Static Standing-Level of Assistance Close supervision -SETH (r) MS (c) -- Static Standing-Comment/# of Minutes Safety -SETH (r) MS (c) -- Seated Seated-Exercises Lower extremity;Specific exercises -SETH (r) MS (c) -- Seated-Exercise Type Ankle pumps;Glut sets;Long arc quads B LE -SETH (r) MS (c) -- Reps/Sets 1x10 -SETH (r) MS (c) -- Seated-Motion AROM -SETH (r) MS (c) -- Seated-Exercise Comments 5 sec hold for glute sets -SETH (r) MS (c) -- Bed Mobility Bed Mobility No -SETH (r) MS (c) -- Transfers Transfer Yes -SETH (r) MS (c) -- Transfer 1 Transfer From 1 Sit -SETH (r) MS (c) -- Transfer Type 1 To and from -SETH (r) MS (c) -- Transfer to 1 Stand -SETH (r) MS (c) -- Technique 1 Sit to stand;Stand to sit -SETH (r) MS (c) -- Transfer Device 1 Wheeled walker -SETH (r) MS (c) -- Transfer Level of Assistance 1 Contact Guard Assist -SETH (r) MS (c) -- Trials/Comments 1 CGA for safety and cueing for use of WW -SETH (r) MS (c) -- Ambulation Functional Ambulation Category 2 -SETH (r) MS (c) -- Ambulation Yes -SETH (r) MS (c) -- Ambulation 1 Distance (ft) 1 80 -SETH (r) MS (c) -- Surface 1 Level tile -SETH (r) MS (c) -- Device 1 Wheeled walker -SETH (r) MS (c) -- Assistance 1 Minimum Assist -SETH (r) MS (c) -- Gait: Requires assist with 1 Maintaining balance -SETH (r) MS (c) -- Gait: Requires verbal cues to 1 Pace activity;Improve upright posture -SETH (r) MS (c) -- Gait Deviations 1 Antalgic;Base of support - decreased;Laurel - decreased;Heel strike - decreased;Posture - flexed;Step length - decreased;Turns - difficulty - SETH (r) MS (c) -- Quality of Gait 1 Reciprocal gait pattern -SETH (r) MS (c) -- Ambulation Comments 1 Pt noted slight fatique but also reported wanting to walk further next time -SETH (r) MS (c) -- Stairs Stairs No -SETH (r) MS (c) -- Basic Mobility - 6 Click How much difficulty does the patient have: Turning over in bed 3 -SETH (r) MS (c) -- How much difficulty does the patient currently have: Sitting down and standing up from a chair witharms? 4 -SETH (r) MS (c) -- How much difficulty does the patient have: Moving from lying on back to sitting on the side of the bed? 3 -SETH (r) MS (c) -- How much difficulty does the patient have: Moving to and from a bed to a chair including wheelchair? 3 -SETH (r) MS (c) -- How much help does the patient currently need: Walk in hospital room? 3 -SETH (r) MS (c) -- How much help from another person does the patient currently need: Climbing 3-5 steps with a railing? 2 -SETH (r) MS (c) -- Total 6 Click Score (range 6-24) 18 -SETH -- Score Interpretation 41.05 -SETH (r) MS (c) -- Safe Environment End of Therapy Session Safe Environment End of Therapy Session Patient left in chair;Chair alarm in place and activated;Call light within reach;Overbed table within reach -SETH (r) MS (c) -- Assessment Prognosis Good -SETH (r) MS (c) -- Problem List Gait deviations;Decreased strength;Decreased range of motion;Decreased endurance;Impaired balance;Decreased mobility -SETH (r) MS (c) -- Barriers to Discharge Current Mobility Status -SETH (r) MS (c) -- Plan Plan Continue with current plan;If this is the last note, consider this the discharge summary -SETH (r) MS (c) -- Recommendation/Plan PT Recommendation/Plan Alf Facility -SETH (r) MS (c) -- Patient at high risk for Falls;Readmission;Injury due to decreased ability to care for self;Injury due to reduced functional status;Injury at home as patient has not returned to prior level of function -SETH (r) MS (c) -- Recommend SNF due to Risk of injury at home;Unable to safely care for self in the home;Skilled therapy needed to address functional deficits;Skilled therapy needed for patient to return to prior level of independence -SETH (r) MS (c) -- PT Frequency during current admission 5-7x/wk -SETH (r) MS (c) -- Treatment/Interventions during current admission Balance Training;Functional transfer training;Gaittraining;Therapeutic activity;Strengthening -SETH (r) MS (c) -- PT Equipment Recommended Other (Comment) To be determined at next continuum of care -SETH (r) MS (c) -- Progress during current admission Progressing toward goals -SETH (r) MS (c) -- Time Calculation Start Time 1431 -SETH (r) MS (c) -- Stop Time 1458 -SETH (r) MS (c) -- Time Calculation (min) 27 min -SETH -- User Ferro (r) = Recorded By, (t) = Taken By, (c) = Cosigned By Initials Name Effective Dates [place] Mignon Toussaint, WAREHOUSE STOCK CLERK 07/14/19 - [facility] Wilber Skinner 02/05/24 - Mukul Quigley, PT 12/22/21 - Johan Amezcua, PT 05/05/19 - Moira Padilla, PT 07/21/20 - PT Notes 03/31/2024 11:22 AM Progress Notes signed by Mukul Quigley, PT * [facility] Note - Desi Wang RN - 04/02/2024 4:24 PM CDT Patient Information: Meds and Admin Active Only All Meds/Most Recent Administrations acetaminophen (TYLENOL) tablet 1,000 mg [[id number]] Ordering Provider: Rosalio Calixto MD Status: Completed (Past End Date/Time) Ordered On: 03/08/241836 Starts/Ends: 03/08/241837 - 03/08/241855 Ordered Dose (Remaining/Total): 1,000 mg (0/1) Route: oral Frequency: Once Ordered Rate/Order Duration: -- / -- Timestamps Action Dose Route Other Information 03/08/241855 Given 1,000 mg oral Performed by: Brionna Pitt RN Scanned Package: 0356-8065-59, 1460-3380-92 droPERidol (INAPSINE) injection 1.25 mg [[id number]] Ordering Provider: Rosalio Calixto MD Status: Completed (Past End Date/Time) Ordered On: 03/08/241838 Starts/Ends: 03/08/241839 - 03/08/241855 Ordered Dose (Remaining/Total): 1.25 mg (0/1) Route: intravenous Frequency: Once Ordered Rate/Order Duration: -- / -- Admin Instructions: If administered IV push, administer over 5 min for adults. Line Med Link Info Comment Peripheral IV 03/08/24 20 G Distal;Left;Posterior Forearm 03/08/241855 by Brionna Pitt RN -- Timestamps Action Dose Route Other Information 03/08/241855 Given 1.25 mg intravenous Performed by: Brionna Pitt RN Scanned Package: 3670-8646-14 fentaNYL (SUBLIMAZE) preservative free injection 50 mcg [[id number]] Ordering Provider: Rosalio Calixto MD Status: Completed (Past End Date/Time) Ordered On: 03/08/241845 Starts/Ends: 03/08/241845 - 03/09/24302 Ordered Dose (Remaining/Total): 50 mcg (0/3) Route: intravenous Frequency: Every 1 hour PRN Ordered Rate/Order Duration: -- / -- Line Med Link Info Comment Peripheral IV 03/08/24 20 G Distal;Left;Posterior Forearm 03/08/242139 by Brionna Pitt RN -- Timestamps Action Dose Route Other Information 03/09/24302 Given 50 mcg intravenous Performed by: Brionna Pitt RN Scanned Package: 3234-2315-42 ioversoL (OPTIRAY 350) syringe 100 mL [[id number]] Ordering Provider: Rosalio Calixto MD Status: Completed (Past End Date/Time) Ordered On: 03/08/242000 Starts/Ends: 03/08/242000 - 03/08/242000 Ordered Dose (Remaining/Total): 100 mL (0/1) Route: intravenous Frequency: Once in imaging Ordered Rate/Order Duration: -- / -- Line Med Link Info Comment Peripheral IV 03/08/24 20 G Distal;Left;Posterior Forearm 03/08/242000 by Chayo Diaz, RT -- Timestamps Action Dose Route Other Information 03/08/242000 Contrast Given 100 mL intravenous Performed by: Chayo Diaz RT ioversoL (OPTIRAY 350) syringe 125 mL [[id number]] Ordering Provider: Rosalio Calixto MD Status: Completed (Past End Date/Time) Ordered On: 03/08/242321 Starts/Ends: 03/08/242321 - 03/08/242353 Ordered Dose (Remaining/Total): 125 mL (0/1) Route: intravenous Frequency: Once in imaging Ordered Rate/Order Duration: -- / -- Line Med Link Info Comment Peripheral IV 03/08/24 20 G Distal;Left;Posterior Forearm 03/08/242353 by Sheyla Hill RT -- Timestamps Action Dose Route Other Information 03/08/242353 Contrast Given 120 mL intravenous Performed by: Sheyla Hill, RT gadoterate meglumine injection 14 mL [[id number]] Ordering Provider: Rosalio Calixto MD Status: Completed (Past End Date/Time) Ordered On: 03/09/24203 Starts/Ends: 03/09/24203 - 03/09/24203 Ordered Dose (Remaining/Total): 14 mL (0/1) Route: intravenous Frequency: Once in imaging Ordered Rate/Order Duration: -- / -- Line Med Link Info Comment Peripheral IV 03/08/24 20 G Distal;Left;Posterior Forearm 03/09/24203 by Haley Hart RT -- Timestamps Action Dose Route Other Information 03/09/24203 Contrast Given 14 mL intravenous Performed by: Haley Hart RT insulin lispro (HumaLOG, ADMELOG) 100 unit/mL injection 4 Units [[id number]] Ordering Provider: Ho An MD Status: Completed (Past End Date/Time) Ordered On: 03/09/24332 Starts/Ends: 03/09/24333 - 03/09/24342 Ordered Dose (Remaining/Total): 4 Units (0/1) Route: subcutaneous Frequency: Once Ordered Rate/Order Duration: -- / -- Timestamps Action Dose Route / Site Other Information 03/09/24342 Given 4 Units subcutaneous Left Lower Abdomen Performed by: Brionna Pitt RN Scanned Package: 4609-1608-40 droPERidol (INAPSINE) injection 1.25 mg [[id number]] Ordering Provider: Ho An MD Status: Completed (Past End Date/Time) Ordered On: 03/09/24423 Starts/Ends: 03/09/24424 - 03/09/24426 Ordered Dose (Remaining/Total): 1.25 mg (0/1) Route: intravenous Frequency: Once Ordered Rate/Order Duration: -- / -- Admin Instructions: If administered IV push, administer over 5 min for adults. Line Med Link Info Comment Peripheral IV 03/09/24 20 G Left Antecubital 03/09/24426 by Odilia Vega RN -- Timestamps Action Dose Route Other Information 03/09/24426 Given 1.25 mg intravenous Performed by: Odilia Vega RN Scanned Package: 6351-7833-88 sodium chloride 0.9% flush 0.5-20 mL [[id number]] Ordering Provider: Ericka Estes MD Status: Verified Ordered On: 03/09/24608 Start: 03/09/24644 Ordered Dose (Remaining/Total): 0.5-20 mL (--/--) Route: intra-catheter Frequency: Every 8 hours scheduled Ordered Rate/Order Duration: -- / -- Admin Instructions: Flush volume based on line type and size. Timestamps Action Dose Route Other Information 04/01/24 06 Given 10 mL intra-catheter Performed by: Jose Arechiga RN Scanned Package: [id number] sodium chloride 0.9% flush 0.5-20 mL [[id number]] Ordering Provider: Ericka Estes MD Status: Verified Ordered On: 03/09/24608 Start: 03/09/24606 Ordered Dose (Remaining/Total): 0.5-20 mL (--/--) Route: intra-catheter Frequency: As needed Ordered Rate/Order Duration: -- / -- Admin Instructions: Flush volume based on line type and size. Flush before and after each use. Timestamps Action Dose Route Other Information 03/25/24 0635 Given 10 mL intra-catheter Performed by: Isha Cox RN Scanned Package: [id number] Carrier Fluids for Secondary Infusion - 0.9% Sodium Chloride [[id number]] Ordering Provider: Ericka Estes MD Status: Dispensed Ordered On: 03/09/24 0609 Start: 03/09/24 0607 Ordered Dose (Remaining/Total): 30 mL (--/--) Route: intravenous Frequency: As needed Ordered Rate/Order Duration: -- / -- Admin Instructions: 0-250 ml/hr to flush line after IV infusions when no maintenance IV ordered. Infuse 30mL at the same rate as the secondary infusion. Run as primary IV, not intended for KVO. Line Med Link Info Comment Peripheral IV 03/11/24 20 G Left Forearm 03/11/24 1233 by Soco Schwarz RN -- Timestamps Action Dose Route Other Information 03/11/24 123 Given 3 mL intravenous Performed by: Soco Schwarz RN Comments: art line set up lidocaine (PF) (XYLOCAINE) 10 mg/mL (1 %) preservative free injection 200 mg [[id number]] Ordering Provider: Varun Song MD Status: Completed (Past End Date/Time) Ordered On: 03/09/24 1240 Starts/Ends: 03/09/24 1315 - 03/09/24 1312 Ordered Dose (Remaining/Total): 20 mL (0/1) Route: infiltration Frequency: Once Ordered Rate/Order Duration: -- / -- Timestamps Action Dose Route Other Information 03/09/24 1312 Given 200 mg infiltration Performed by: Keyonna Hernandez RN HYDROmorphone (DILAUDID) injection 0.5 mg [[id number]] Ordering Provider: Varun Song MD Status: Completed (Past End Date/Time) Ordered On: 03/09/24 1309 Starts/Ends: 03/09/24 1345 - 03/09/24 1314 Ordered Dose (Remaining/Total): 0.5 mg (0/1) Route: intravenous Frequency: Once Ordered Rate/Order Duration: -- / 2 Minutes Timestamps Action Dose / Duration Route Other Information 03/09/24 1312 Given 0.5 mg 2 Minutes intravenous Performed by: Keyonna Hernandez RN Comments: halo placement droPERidol (INAPSINE) injection 1.25 mg [[id number]] Ordering Provider: Varun Song MD Status: Dispensed (Past End Date/Time) Ordered On: 03/09/241335 Starts/Ends: 03/09/241414 - 03/10/241414 Ordered Dose (Remaining/Total): 1.25 mg (1/1) Route: intravenous Frequency: Once Ordered Rate/Order Duration: -- / -- Admin Instructions: If administered IV push, administer over 5 min for adults. (No admins scheduled or recorded for this medication) HYDROmorphone (DILAUDID) injection 0.5 mg [[id number]] Ordering Provider: Varun Song MD Status: Completed (Past End Date/Time) Ordered On: 03/09/241336 Starts/Ends: 03/09/241414 - 03/09/241335 Ordered Dose (Remaining/Total): 0.5 mg (0/1) Route: intravenous Frequency: Once Ordered Rate/Order Duration: -- / 2 Minutes Timestamps Action Dose / Duration Route Other Information 03/09/241333 Given 0.5 mg 2 Minutes intravenous Performed by: Keyonna Hernandez RN Comments: halo placement methocarbamoL (ROBAXIN) tablet 500 mg [[id number]] Ordering Provider: Bernardino Gleason MD Status: Completed (Past End Date/Time) Ordered On: 03/09/242042 Starts/Ends: 03/09/242114 - 03/09/242122 Ordered Dose (Remaining/Total): 500 mg (0/1) Route: oral Frequency: Once Ordered Rate/Order Duration: -- / -- Timestamps Action Dose Route Other Information 03/09/242122 Given 500 mg oral Performed by: Haley Varner RN Scanned Package: 41340-157-03 magnesium sulfate 2 g/50 mL in water (premix) 2 g [[id number]] Ordering Provider: Bernardino Gleason MD Status: Completed (Past End Date/Time) Ordered On: 03/09/242134 Starts/Ends: 03/09/242214 - 03/09/242326 Ordered Dose (Remaining/Total): 2 g (0/1) Route: intravenous Frequency: Once Ordered Rate/Order Duration: -- / 60 Minutes Timestamps Action Dose / Duration Route Other Information 03/09/242226 New Bag 2 g 60 Minutes intravenous Performed by: Haley Varner RN Scanned Package: 56271-766-27 potassium chloride (KLOR-CON) packet 20 mEq [[id number]] Ordering Provider: Bernardino Gleason MD Status: Completed (Past End Date/Time) Ordered On: 03/09/242134 Starts/Ends: 03/09/242214 - 03/10/24 0514 Ordered Dose (Remaining/Total): 20 mEq (0/3) Route: feeding tube Frequency: Every 4 hours Ordered Rate/Order Duration: -- / -- Admin Instructions: Total dose = 60 mEq. Recommend to dilute each 15 mL with at least 6 ounces of water or juice prior to administration. Dissolve one packet in at least 120 mL of cold water or otherbeverage prior to administration. Timestamps Action Dose Route Other Information 03/10/24 0514 Given 20 mEq feeding tube Performed by: Haley Varner RN Scanned Package: [address]-5 HYDROmorphone (DILAUDID) injection 0.5 mg [[id number]] Ordering Provider: Bernardino Gleason MD Status: Completed (Past End Date/Time) Ordered On: 03/10/24 0507 Starts/Ends: 03/10/24 0545 - 03/10/24 0516 Ordered Dose (Remaining/Total): 0.5 mg (0/1) Route: intravenous Frequency: Once Ordered Rate/Order Duration: -- / 2 Minutes Timestamps Action Dose / Duration Route Other Information 03/10/24 0514 Given 0.5 mg 2 Minutes intravenous Performed by: Haley Varner RN Scanned Package: 04955-298-28 magnesium sulfate 2 g/50 mL in water (premix) 2 g [[id number]] Ordering Provider: Yunier Leach MD Status: Completed (Past End Date/Time) Ordered On: 03/10/24 1309 Starts/Ends: 03/10/24 1345 - 03/10/24 1537 Ordered Dose (Remaining/Total): 2 g (0/1) Route: intravenous Frequency: Once Ordered Rate/Order Duration: -- / 60 Minutes Line Med Link Info Comment Peripheral IV 03/09/24 20 G Left Antecubital 03/10/24 1437 by Darius Ghosh RN -- Timestamps Action Dose / Duration Route Other Information 03/10/24 1437 New Bag 2 g 60 Minutes intravenous Performed by: Darius Ghosh RN Scanned Package: 52420-644-10 potassium chloride (KLOR-CON) packet 40 mEq [[id number]] Ordering Provider: Yunier Leach MD Status: Completed (Past End Date/Time) Ordered On: 03/10/24 1430 Starts/Ends: 03/10/24 174 - 03/10/242042 Ordered Dose (Remaining/Total): 40 mEq (0/2) Route: oral Frequency: Every 4 hours Ordered Rate/Order Duration: -- / -- Admin Instructions: Total dose = 120 mEq. Recommend to dilute each 15 mL with at least 6 ounces of water or juice prior to administration. Dissolve one packet in at least 120 mL of cold water or other beverage prior to administration. Timestamps Action Dose Route Other Information 03/10/242042 Given 40 mEq oral Performed by: Janett Ledezma RN Scanned Package: [address]-3, [address]-1 sodium chloride 0.9% bolus 1,000 mL [[id number]] Ordering Provider: Eloise Knapp MD Status: Completed (Past End Date/Time) Ordered On: 03/11/24 1045 Starts/Ends: 03/11/24 113 - 03/11/24 113 Ordered Dose (Remaining/Total): 1,000 mL (0/1) Route: intravenous Frequency: Once Ordered Rate/Order Duration: -- / -- Line Med Link Info Comment Peripheral IV 03/09/24 20 G Left Antecubital 03/11/24 1139 by Soco Schwarz RN-- Timestamps Action Dose Route Other Information 03/11/24 113 New Bag 1,000 mL intravenous Performed by: Soco Schwarz RN Scanned Package: 2001-9208-58, 7802-1349-61 magnesium sulfate 2 g/50 mL in water (premix) 2 g [[id number]] Ordering Provider: Jane Hoover MD Status: Completed (Past End Date/Time) Ordered On: 03/12/24 0132 Starts/Ends: 03/12/24 0215 - 03/12/24 0341 Ordered Dose (Remaining/Total): 2 g (0/1) Route: intravenous Frequency: Once Ordered Rate/Order Duration: -- / 60 Minutes Line Med Link Info Comment Peripheral IV 03/08/24 20 G Distal;Left;Posterior Forearm 03/12/24 024 by Janett Ledezma RN -- Timestamps Action Dose / Duration Route Other Information 03/12/24 024 New Bag 2 g 60 Minutes intravenous Performed by: Janett Ledezma RN Scanned Package: 45804-045-53 senna-docusate (PERICOLACE) 8.6-50 mg per tablet 1 tablet [[id number]] Ordering Provider: Ericka Estes MD Status: Dispensed Ordered On: 03/12/24 0954 Start: 03/12/24 2100 Ordered Dose (Remaining/Total): 1 tablet (--/--) Route: oral Frequency: 2 times daily Ordered Rate/Order Duration: -- / -- Timestamps Action Dose Route Other Information 04/02/24 0915 Given 1 tablet oral Performed by: Alyx Ma RN Scanned Package: 1416-3368-95 lidocaine (PF) (XYLOCAINE) 10 mg/mL (1 %) preservative free injection 10-20 mg [[id number]] Ordering Provider: Jane Hoover MD Status: Completed (Past End Date/Time) Ordered On: 03/12/24 1832 Starts/Ends: 03/12/24 191 - 03/12/24 213 Ordered Dose (Remaining/Total): 1-2 mL (0/1) Route: subcutaneous Frequency: Once Ordered Rate/Order Duration: -- / -- Admin Instructions: Administer to insertion site prior to procedure of local anesthesia. Administervolume needed to infiltrate site. Timestamps Action Dose Route / Site Other Information 03/12/242129 Given by Other 20 mg subcutaneous Left Forearm Performed by: Janett Ledezma RN Comments: IV Therapy PICC sodium chloride 0.9% flush 5-10 mL [[id number]] Ordering Provider: Ericka Estes MD Status: Verified Ordered On: 03/12/241831 Start: 03/12/242099 Ordered Dose (Remaining/Total): 5-10 mL (--/--) Route: intra-catheter Frequency: Every 12 hours scheduled Ordered Rate/Order Duration: -- / -- Admin Instructions: Flush volume based on line type, size, and protocol. Timestamps Action Dose Route Other Information 03/27/242139 Given 10 mL intra-catheter Performed by: Clifford Lindsey RN sodium chloride 0.9% flush 5-20 mL [[id number]] Ordering Provider: Ericka Estes MD Status: Verified Ordered On: 03/12/241831 Start: 03/12/241827 Ordered Dose (Remaining/Total): 5-20 mL (--/--) Route: intra-catheter Frequency: As needed Ordered Rate/Order Duration: -- / -- Admin Instructions: Flush volume based on line type, size, and protocol. (No admins scheduled or recorded for this medication) sodium chloride 0.9% flush 5-10 mL [[id number]] Ordering Provider: Ericka Estes MD Status: Verified Ordered On: 03/12/241831 Start: 03/12/242099 Ordered Dose (Remaining/Total): 5-10 mL (--/--) Route: intra-catheter Frequency: Every 12 hours scheduled Ordered Rate/Order Duration: -- / -- Admin Instructions: Flush volume based on line type, size, and protocol. Timestamps Action Dose Route Other Information 03/27/242139 Given 10 mL intra-catheter Performed by: Clifford Lindsey RN sodium chloride 0.9% flush 5-20 mL [[id number]] Ordering Provider: Ericka Estes MD Status: Verified Ordered On: 03/12/241831 Start: 03/12/241830 Ordered Dose (Remaining/Total): 5-20 mL (--/--) Route: intra-catheter Frequency: As needed Ordered Rate/Order Duration: -- / -- Admin Instructions: Flush volume based on line type, size, and protocol. (No admins scheduled or recorded for this medication) acetaminophen (TYLENOL) tablet 1,000 mg [[id number]] Ordering Provider: Ericka Estes MD Status: Dispensed Ordered On: 03/13/24 1120 Start: 03/13/24 1200 Ordered Dose (Remaining/Total): 1,000 mg (--/--) Route: oral Frequency: Every 6 hours scheduled Ordered Rate/Order Duration: -- / -- Timestamps Action Dose Route Other Information 04/02/24 1156 Given 1,000 mg oral Performed by: Alyx Ma RN Scanned Package: [id number], 1346-4386-72 magnesium sulfate 2 g/50 mL in water (premix) 2 g [[id number]] Ordering Provider: Johnny Corcoran MD Status: Completed (Past End Date/Time) Ordered On: 03/13/24 1122 Starts/Ends: 03/13/24 1200 - 03/13/24 1306 Ordered Dose (Remaining/Total): 2 g (0/1) Route: intravenous Frequency: Once Ordered Rate/Order Duration: -- / 60 Minutes Timestamps Action Dose / Duration Route Other Information 03/13/24 1206 New Bag 2 g 60 Minutes intravenous Performed by: Kenyatta Dumont RN Scanned Package: 41365-203-33 ceFAZolin (ANCEF) 1 gram/10 mL in sterile water (premix) 1,000 mg [[id number]] Ordering Provider: Ericka Estes MD Status: Completed (Past End Date/Time) Ordered On: 03/14/24 1101 Starts/Ends: 03/14/24 1130 - 03/15/24 0556 Ordered Dose (Remaining/Total): 1,000 mg (0/3) Route: intravenous Frequency: Every 8 hours scheduled Ordered Rate/Order Duration: 200 mL/hr / 3 Minutes Timestamps Action Dose / Rate / Duration Route Other Information 03/15/24 0553 Given 1,000 mg 200 mL/hr 3 Minutes intravenous Performed by: June Guerrero RN Scanned Package: 3972-5824-83 miconazole (SECURA THICK) 2 % cream [[id number]] Ordering Provider: Linda Haile MD Status: Verified (Past End Date/Time) Ordered On: 03/14/24 0011 Starts/Ends: 03/14/24 0045 - 03/27/242058 Ordered Dose (Remaining/Total): -- (03/09) Route: topical Frequency: 2 times daily Ordered Rate/Order Duration: -- / -- Question Answer Comment Apply to affected area:: rash -- Timestamps Action Dose / Rate / Duration Route Other Information 03/27/24 0831 Given -- topical Performed by: Mala Lion Scanned Package: 73776-452-73 haloperidol (HALDOL) 5 mg/mL injection - ADS Override Pull [[id number]] Status: Dispensed (Past End Date/Time) Ordered On: 03/14/24451 Starts/Ends: 03/14/24 045 - 03/14/241658 Ordered Dose (Remaining/Total): -- (08/13) Route: -- Frequency: -- Ordered Rate/Order Duration: -- / -- Admin Instructions: Created by cabinet override Note to pharmacy: Created by cabinet override (No admins scheduled or recorded for this medication) linezolid (ZYVOX) tablet 600 mg [[id number]] Ordering Provider: Vince Allen MD Status: Completed (Past End Date/Time) Ordered On: 03/14/24 1155 Starts/Ends: 03/14/24 1230 - 03/14/242113 Ordered Dose (Remaining/Total): 600 mg (0/2) Route: oral Frequency: 2 times daily Ordered Rate/Order Duration: -- / -- Timestamps Action Dose Route Other Information 03/14/242113 Given 600 mg oral Performed by: June Guerrero RN Scanned Package: 30158-527-83 benzocaine-menthoL (CHLORASEPTIC) lozenge 1 lozenge [[id number]] Ordering Provider: Linda Haile MD Status: Dispensed Ordered On: 03/15/24436 Start: 03/15/24436 Ordered Dose (Remaining/Total): 1 lozenge (--/--) Route: mouth/throat Frequency: Every 3 hours PRN Ordered Rate/Order Duration: -- / -- Timestamps Action Dose Route Other Information 03/25/24 1224 Given 1 lozenge mouth/throat Performed by: Liberty Taylor RN Scanned Package: [id number] dextrose gel in packet 15 g [[id number]] Ordering Provider: Linda Haile MD Status: Verified Ordered On: 03/16/24850 Start: 03/16/24845 Ordered Dose (Remaining/Total): 15 g (--/--) Route: [...] medication) dextrose (D10W) 10% bolus 250 mL [[id number]] Ordering Provider: Linda Haile MD Status: Verified Ordered On: 03/16/24850 Start: 03/16/24845 Ordered Dose (Remaining/Total): 250 mL (--/--) Route: intravenous Frequency: Every 15 min PRN Ordered Rate/Order Duration: 1,000 mL/hr / 15 Minutes Admin Instructions: After treatment for hypoglycemia, recheck BG followed by treatment every 15 minutes until the BG is greater than 100 mg/dL. Then check BG 1 hour post treatment. If BG is less [id number] mg/dL, repeat Q15 minute BG checks and treatment. Call MD for each episode of hypoglycemia. (No admins scheduled or recorded for this medication) glucagon injection 1 mg [[id number]] Ordering Provider: Linda Haile MD Status: Verified Ordered On: 03/16/24850 Start: 03/16/24845 Ordered Dose (Remaining/Total): 1 mg (--/--) Route: [...] admins scheduled or recorded for this medication) oxyCODONE (ROXICODONE) tablet 7.5 mg [[id number]] Ordering Provider: Vince Allen MD Status: Dispensed Ordered On: 03/17/24 1037 Start: 03/17/24 1036 Ordered Dose (Remaining/Total): 7.5 mg (--/--) Route: oral Frequency: Every 4 hours PRN Ordered Rate/Order Duration: -- / -- Timestamps Action Dose Route Other Information 04/02/24 1321 Given 7.5 mg oral Performed by: Alyx Ma RN Scanned Package: 25386-675-67 hydrOXYzine (ATARAX) tablet 50 mg [[id number]] Ordering Provider: Demetri Serrano MD Status: Dispensed Ordered On: 03/17/24 1634 Start: 03/17/24 1634 Ordered Dose (Remaining/Total): 50 mg (--/--) Route: oral Frequency: Every 4 hours PRN Ordered Rate/Order Duration: -- / -- Timestamps Action Dose Route Other Information 03/30/24 2025 Given 50 mg oral Performed by: Leighann Solitario Scanned Package: [id number], 59217-388-62 enoxaparin (LOVENOX) syringe 30 mg [[id number]] Ordering Provider: Xochitl Esquivel NP Status: Dispensed Ordered On: 03/18/24 1152 Start: 03/18/24 2100 Ordered Dose (Remaining/Total): 30 mg (--/--) Route: subcutaneous Frequency: Every 12 hours scheduled Ordered Rate/Order Duration: -- / -- Timestamps Action Dose Route / Site Other Information 04/02/24 0915 Given 30 mg subcutaneous Right Lower Abdomen Performed by: Alyx Ma RN Scanned Package: 11092-451-41 lidocaine (ASPERCREME) 4 % patch 2 patch [[id number]] Ordering Provider: Xochitl Esquivel NP Status: Dispensed Ordered On: 03/18/24 1152 Start: 03/18/24 1230 Ordered Dose (Remaining/Total): 2 patch (--/--) Route: transdermal Frequency: Every 24 hours Ordered Rate/Order Duration: -- / 12 Hours Question Answer Comment Apply to affected area:: shoulder -- Laterality: Bilateral -- Timestamps Action Dose / Duration Route / Site Other Information 04/02/24 1320 Medication Applied 2 patch 12 Hours transdermal Right Arm Performed by: Alyx Ma RN Scanned Package: 0526-4346-70, 3549-4058-43 traZODone (DESYREL) tablet 50 mg [[id number]] Ordering Provider: Xochitl Esquivel NP Status: Dispensed Ordered On: 03/18/24 1529 Start: 03/18/24 2100 Ordered Dose (Remaining/Total): 50 mg (--/--) Route: oral Frequency: Nightly Ordered Rate/Order Duration: -- / -- Timestamps Action Dose Route Other Information 04/01/24 214 Given 50 mg oral Performed by: Jose Arechiga RN Scanned Package: 21943-023-26 polyethylene glycol (MIRALAX) packet 17 g [[id number]] Ordering Provider: Xochitl Esquivel NP Status: Dispensed Ordered On: 03/19/24 0903 Start: 03/19/24 2100 Ordered Dose (Remaining/Total): 17 g (--/--) Route: oral Frequency: 2 times daily Ordered Rate/Order Duration: -- / -- Timestamps Action Dose Route Other Information 04/02/24 0915 Given 17 g oral Performed by: Alyx Ma RN Scanned Package: 34531-860-79 bisacodyL (DULCOLAX) suppository 10 mg [[id number]] Ordering Provider: Xochitl Esquivel NP Status: Dispensed (Past End Date/Time) Ordered On: 03/19/24 0915 Starts/Ends: 03/19/24 1000 - 03/20/24 1000 Ordered Dose (Remaining/Total): 10 mg (1/1) Route: rectal Frequency: Once Ordered Rate/Order Duration: -- / -- (No admins scheduled or recorded for this medication) HYDROmorphone (DILAUDID) injection 0.2 mg [[id number]] Ordering Provider: Demetri Serrano MD Status: Completed (Past End Date/Time) Ordered On: 03/21/24 0528 Starts/Ends: 03/21/24 06 - 03/21/24 0545 Ordered Dose (Remaining/Total): 0.2 mg (0/1) Route: intravenous Frequency: Once Ordered Rate/Order Duration: -- / 2 Minutes Timestamps Action Dose / Duration Route Other Information 03/21/24 0543 Given 0.2 mg 2 Minutes intravenous Performed by: Elizabeth Bell RN Scanned Package: 10556-514-56 insulin glargine (LANTUS, SEMGLEE) 100 unit/mL injection 2 Units [[id number]] Ordering Provider: Demetri Serrano MD Status: Completed (Past End Date/Time) Ordered On: 03/23/24 132 Starts/Ends: 03/23/24 1322 - 03/23/24 1338 Ordered Dose (Remaining/Total): 2 Units (0/1) Route: subcutaneous Frequency: Once Ordered Rate/Order Duration: -- / -- Admin Instructions: Do not hold if NPO. Do not mix with other insulins Timestamps Action Dose Route / Site Other Information 03/23/24 1338 Given 2 Units subcutaneous Right Upper Arm Performed by: Dilcia Torres, JULISSA Scanned Package: [id number] insulin glargine (LANTUS, SEMGLEE) 100 unit/mL injection 30 Units [[id number]] Ordering Provider: Ximena Diaz NP Status: Dispensed Ordered On: 03/25/24 0725 Start: 03/25/24 09 Ordered Dose (Remaining/Total): 30 Units (--/--) Route: subcutaneous Frequency: Every morning Ordered Rate/Order Duration: -- / -- Admin Instructions: Do not hold if NPO. Do not mix with other insulins Timestamps Action Dose Route / Site Other Information 04/02/24 0918 Given 30 Units subcutaneous Left Upper Abdomen Performed by: Alyx Ma RN Scanned Package: [id number] insulin lispro (HumaLOG, ADMELOG) 100 unit/mL injection 2 Units [[id number]] Ordering Provider: Ximena Diaz NP Status: Verified Ordered On: 03/25/24 0737 Start: 03/25/24 0734 Ordered Dose (Remaining/Total): 2 Units (--/--) Route: subcutaneous Frequency: Every 6 hours PRN Ordered Rate/Order Duration: -- / -- Admin Instructions: Please give with snacks. (No admins scheduled or recorded for this medication) insulin lispro (HumaLOG, ADMELOG) 100 unit/mL injection 20 Units [[id number]] Ordering Provider: Ximena Diaz NP Status: Dispensed Ordered On: 03/25/2445 Start: 03/25/24829 Ordered Dose (Remaining/Total): 20 Units (--/--) Route: subcutaneous Frequency: 3 times [...] Action Dose Route / Site Other Information 04/02/24 1321 Given 20 Units subcutaneous Right Upper Arm Performed by: Alyx Ma RN Scanned Package: 2596-6932-71 oxyCODONE (ROXICODONE) tablet 5 mg [[id number]] Ordering Provider: Demetri Serrano MD Status: Completed (Past End Date/Time) Ordered On: 03/28/24 1127 Starts/Ends: 03/28/24 1200 - 03/28/24 1214 Ordered Dose (Remaining/Total): 5 mg (0/1) Route: oral Frequency: Once Ordered Rate/Order Duration: -- / -- Timestamps Action Dose Route Other Information 03/28/24 1214 Given 5 mg oral Performed by: Lorena Acevedo RN Scanned Package: 01287-289-09 methocarbamoL (ROBAXIN) tablet 1,000 mg [[id number]] Ordering Provider: Karuna Mitchell NP Status: Dispensed Ordered On: 03/28/24 1352 Start: 03/28/24 1700 Ordered Dose (Remaining/Total): 1,000 mg (--/--) Route: oral Frequency: 4 times daily Ordered Rate/Order Duration: -- / -- Timestamps Action Dose Route Other Information 04/02/24 1606 Given 1,000 mg oral Performed by: Alyx Ma RN Scanned Package: 82381-542-33, 77712-969-53 insulin lispro (HumaLOG, ADMELOG) 100 unit/mL injection 0-10 Units [[id number]] Ordering Provider: Messi Hummel MD Status: Dispensed Ordered On: 03/29/24 1006 Start: 03/29/24 1200 Ordered Dose (Remaining/Total): 0-10 Units (--/--) Route: subcutaneous Frequency: 5 times daily (with meals, nightly, and 0200) Ordered Rate/Order Duration: -- / -- Admin [...] Action Dose Route / Site Other Information 04/02/24 1323 Given 2 Units subcutaneous Right Upper Arm Performed by: Alyx Ma RN Scanned Package: [id number] miconazole 2 % cream [[id number]] Ordering Provider: Riki Isidro MD Status: Dispensed (Past End Date/Time) Ordered On: 08/18/24 2154 Starts/Ends: 03/30/24 2230 - 03/31/24 0859 Ordered Dose (Remaining/Total): -- (08/13) Route: topical Frequency: 2 times daily Ordered Rate/Order Duration: -- / -- Question Answer Comment Apply to affected area:: diaper area -- (No admins scheduled or recorded for this medication) pregabalin (LYRICA) capsule 150 mg [[id number]] Ordering Provider: Johan Ulloa MD Status: Dispensed Ordered On: 03/31/24 1102 Start: 03/31/24 1600 Ordered Dose (Remaining/Total): 150 mg (--/--) Route: oral Frequency: 3 times daily Ordered Rate/Order Duration: -- / -- Timestamps Action Dose Route Other Information 04/02/24 1606 Given 150 mg oral Performed by: Alyx Ma RN Scanned Package: [id number] * Plan of Care - Desi Wang RN - 04/02/2024 4:20 PM CDT CM placed call to [facility] at [phone]. Spoke with Akanksha. Updates sent via [employer], refaxed to [phone]. Will review today & follow up with CM tomorrow. * Plan of Care - Jose Arechiga RN - 04/02/2024 4:02 AM CDT Goals: Clinical Goals for the Shift: vss, prevent falls/ injury, control pain, esnure rest, monitor las/ 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 Goal for Treatment: Mobility, Pain management Summary: Problem: Skin Integrity Impairment Risk Goal: Mobility [...] from injury from falls Outcome: Progressing Problem: Lack of Knowledge Goal: Ability to develop a pain control plan will improve Outcome: Progressing Problem: Sensory Goal: Ability to identify factors that increase pain levels will improve while working to decrease the patient's pain levels Outcome: Progressing Problem: Coping Goal: Ability to cope will improve Outcome: Progressing Problem: Lack of Knowledge Goal: Ability to describe self care measures that may prevent or decrease complications related to Type 1 Diabetes will improve Outcome: Progressing Goal: Ability to describe self care measures that may prevent or decrease complications related to Type 2 Diabetes will improve Outcome: Progressing Problem: Neurosensory Goal: Achieves stable or improved neurological status Outcome: Progressing Goal: Remains free of injury related to seizures activity Outcome: Progressing Goal: Achieves maximal functionality and self care Outcome: Progressing Goal: Ability to maintain intracranial pressure will improve Outcome: Progressing Problem: Musculoskeletal Goal: Maintain proper alignment of affected body part Outcome: Progressing Goal: Return mobility to safest level of function Outcome: Progressing Goal: Return ADL status to a safe level of function Outcome: Progressing Goal: Ability to perform activities at highest level will improve Outcome: Progressing Goal: Mobility, ROM and muscle strength will improve Outcome: Progressing Problem: Activity Goal: Patient's tolerance of increased activity will improve Outcome: Progressing Goal: Patient will maintain or regain ADL function Outcome: Progressing * Plan of Aaron - Alyx Ma RN - 04/01/2024 6:05 PM CDT Problem: Discharge Planning Goal: Understanding discharge needs will improve Outcome: Progressing Problem: Skin Integrity Impairment Risk Goal: Mobility will improve Outcome: Progressing Goal: Understanding of ways to prevent future skin breakdown will improve Outcome: Progressing Goal: Nutritional status will improve Outcome: Progressing Goal: Risk for impaired skin integrity will decrease Outcome: Progressing Problem: Lack of Knowledge Goal: [...] prevent or decrease complications related to Type 1 Diabetes will improve Outcome: Progressing Goal: Ability to describe self care measures that may prevent or decrease complications related to Type 2 Diabetes will improve Outcome: Progressing Problem: Health Nutrition Goal: Nutritional intake and knowledge related to Diabetes will improve Outcome: Progressing Problem: Neurosensory Goal: Achieves stable or improved neurological status Outcome: Progressing Goal: Remains free of injury related to seizures activity Outcome: Progressing Goal: Achieves maximal functionality and self care Outcome: Progressing Goal: Ability to maintain intracranial pressure will improve Outcome: Progressing Problem: Musculoskeletal Goal: Maintain proper alignment of affected body part Outcome: Progressing Goal: Return mobility to safest level of function Outcome: Progressing Goal: Return ADL status to a safe level of function Outcome: Progressing Goal: Ability to perform activities at highest level will improve Outcome: Progressing Goal: Mobility, ROM and muscle strength will improve Outcome: Progressing Problem: Infection Goal: Absence of infection during hospitalization Outcome: Progressing Goal: Absence of fever/infection during anticipated neutropenic period Outcome: Progressing Problem: Metabolic/Fluid and Electrolytes Goal: Glucose maintained within prescribed range Outcome: Progressing Problem: Fall Risk Goal: Ability to state ways to decrease the risk of falls will improve Outcome: Progressing Goal: Will remain free from falls Outcome: Progressing Goal: Will remain free from injury from falls Outcome: Progressing Problem: Skin/Tissue Integrity Goal: Skin integrity remains intact Outcome: Progressing Goal: Incisions, wounds, or drain sites healing without S/S of infection Outcome: Progressing Problem: Activity Goal: Patient's tolerance of increased activity will improve Outcome: Progressing Goal: Patient will maintain or regain ADL function Outcome: Progressing Goals: Clinical Goals for the Shift: vss, prevent falls/ injury, control pain, esnure rest, monitor las/ 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 Goal for Treatment: Mobility, Pain management * Plan of Care - Jose Arechiga RN - 04/01/2024 2:35 AM CDT Goals: Clinical Goals for the Shift: vss, prevent falls/ injury, control pain, esnure rest, monitor las/ surgical wounds [facility] Goal for Treatment: Mobility, Pain management Summary: Problem: Skin Integrity Impairment Risk Goal: Mobility will improve 04/01/2024 023 by Jose Arechiga RN Outcome: Progressing 04/01/2024 023 by Jose Arechiga RN Outcome: Progressing Goal: Understanding of ways to prevent future skin breakdown will improve 04/01/2024 023 by Jose Arechiga RN Outcome: Progressing 04/01/2024 023 by Jose Arechiga RN Outcome: Progressing Goal: Nutritional status will improve 04/01/2024 023 by Jose Arechiga RN Outcome: Progressing 04/01/2024 023 by Jose Arechiga RN Outcome: Progressing Goal: Risk for impaired skin integrity will decrease 04/01/2024234 by Jose Arechiga RN Outcome: Progressing 04/01/2024233 by Jose Arechiga RN Outcome: Progressing Problem: Fall Risk Goal: Ability to state ways to decrease the risk of falls will improve 04/01/2024234 by Jose Arechiga RN Outcome: Progressing 04/01/2024 023 by Jose Arechiga RN Outcome: Progressing Goal: Will remain free from falls 04/01/2024 023 by Jose Arechiga RN Outcome: Progressing 04/01/2024 023 by Jose Arechiga RN Outcome: Progressing Goal: Will remain free from injury from falls 04/01/2024234 by Jose Arechiga RN Outcome: Progressing 04/01/2024 023 by Jose Arechiga RN Outcome: Progressing Problem: Lack of Knowledge Goal: Ability to develop a pain control plan will improve 04/01/2024234 by Jose Arechiga RN Outcome: Progressing 04/01/2024 023 by Jose Arechiga RN Outcome: Progressing Problem: Sensory Goal: Ability to identify factors that increase pain levels will improve while working to decrease the patient's pain levels 04/01/2024234 by Jose Arechiga RN Outcome: Progressing 04/01/2024 023 by Jose Arechiga RN Outcome: Progressing Problem: Medication Goal: Satisfaction with pain management medication regimen will improve 04/01/2024234 by Jose Arechiga RN Outcome: Progressing 04/01/2024233 by Jose Arechiga RN Outcome: Progressing Problem: Health Behavior Goal: Identification of resources available to assist in meeting health care needs will improve 04/01/2024234 by Arechiga, Jose, RN Outcome: Progressing 04/01/2024233 by Jose Arechiga RN Outcome: Progressing Problem: Lack of Knowledge Goal: Ability to describe self care measures that may prevent or decrease complications related to Type 1 Diabetes will improve 04/01/2024234 by Jose Arechiga RN Outcome: Progressing 04/01/2024233 by Jose Arechiga RN Outcome: Progressing Goal: Ability to describe self care measures that may prevent or decrease complications related to Type 2 Diabetes will improve 04/01/2024234 by Jose Arechiga RN Outcome: Progressing 04/01/2024233 by Jose Arechiga RN Outcome: Progressing Problem: Health Nutrition Goal: Nutritional intake and knowledge related to Diabetes will improve 04/01/2024234 by Jose Arechiga RN Outcome: Progressing 04/01/2024233 by Jose Arechiga RN Outcome: Progressing Problem: Neurosensory Goal: Achieves stable or improved neurological status 04/01/2024234 by Jose Arechiga RN Outcome: Progressing 04/01/2024233 by Jose Arechiga RN Outcome: Progressing Goal: Remains free of injury related to seizures activity 04/01/2024234 by Jose Arechiga RN Outcome: Progressing 04/01/2024233 by Jose Arechiga RN Outcome: Progressing Goal: Achieves maximal functionality and self care 04/01/2024234 by Jose Arechiga RN Outcome: Progressing 04/01/2024233 by Jose Arechiga RN Outcome: Progressing Goal: Ability to maintain intracranial pressure will improve 04/01/2024234 by Jose Arechiga RN Outcome: Progressing 04/01/2024233 by Jose Arechiga RN Outcome: Progressing Problem: Musculoskeletal Goal: Maintain proper alignment of affected body part 04/01/2024234 by Jose Arechiga RN Outcome: Ongoing 04/01/2024233 by Jose Arechiga RN Outcome: Progressing Goal: Return mobility to safest level of function 04/01/2024234 by Jose Arechiga RN Outcome: Ongoing 04/01/2024233 by Jose Arechiga RN Outcome: Ongoing Goal: Return ADL status to a safe level of function 04/01/2024234 by Jose Arechiga RN Outcome: Ongoing 04/01/2024233 by Jose Arechiga RN Outcome: Progressing Goal: Ability to perform activities at highest level will improve 04/01/2024234 by Jose Arechiga RN Outcome: Ongoing 04/01/2024233 by Jose Arechiga RN Outcome: Progressing Goal: Mobility, ROM and muscle strength will improve 04/01/2024234 by Jose Arechiga RN Outcome: Ongoing 04/01/2024233 by Jose Arechiga RN Outcome: Progressing Problem: Infection Goal: Absence of infection during hospitalization 04/01/2024 023 by Jose Arechiga RN Outcome: Progressing 04/01/2024233 by Jose Arechiga RN Outcome: Progressing Goal: Absence of fever/infection during anticipated neutropenic period 04/01/2024 023 by Jose Arechiga RN Outcome: Progressing 04/01/2024 023 by Jose Arechiga RN Outcome: Progressing Problem: Skin/Tissue Integrity Goal: Skin integrity remains intact 04/01/2024234 by Jose Arechiga RN Outcome: Progressing 04/01/2024233 by Jose Arechiga RN Outcome: Progressing Goal: Incisions, wounds, or drain sites healing without S/S of infection 04/01/2024234 by Jose Arechiga RN Outcome: Progressing 04/01/2024233 by Jose Arechiga RN Outcome: Progressing Problem: Activity Goal: Patient's tolerance of increased activity will improve 04/01/2024234 by Jose Arechiga RN Outcome: Progressing 04/01/2024233 by Jose Arechiga RN Outcome: Progressing Goal: Patient will maintain or regain ADL function 04/01/2024234 by Jose Arechiga RN Outcome: Progressing 04/01/2024233 by Jose Arechiga RN Outcome: Progressing * Plan of Care - Alyx Ma RN - 03/31/2024 5:31 PM CDT Problem: Discharge Planning Goal: Understanding discharge needs will improve Outcome: Progressing Problem: Skin Integrity Impairment Risk Goal: Mobility will improve Outcome: Progressing Goal: Understanding of ways to prevent future skin breakdown will improve Outcome: Progressing Goal: Nutritional status will improve Outcome: Progressing Goal: Risk for impaired skin integrity will decrease Outcome: Progressing Problem: Lack of Knowledge Goal: [...] prevent or decrease complications related to Type 1 Diabetes will improve Outcome: Progressing Goal: Ability to describe self care measures that may prevent or decrease complications related to Type 2 Diabetes will improve Outcome: Progressing Problem: Health Nutrition Goal: Nutritional intake and knowledge related to Diabetes will improve Outcome: Progressing Problem: Neurosensory Goal: Achieves stable or improved neurological status Outcome: Progressing Goal: Remains free of injury related to seizures activity Outcome: Progressing Goal: Achieves maximal functionality and self care Outcome: Progressing Goal: Ability to maintain intracranial pressure will improve Outcome: Progressing Problem: Musculoskeletal Goal: Maintain proper alignment of affected body part Outcome: Progressing Goal: Return mobility to safest level of function Outcome: Progressing Goal: Return ADL status to a safe level of function Outcome: Progressing Goal: Ability to perform activities at highest level will improve Outcome: Progressing Goal: Mobility, ROM and muscle strength will improve Outcome: Progressing Problem: Infection Goal: Absence of infection during hospitalization Outcome: Progressing Goal: Absence of fever/infection during anticipated neutropenic period Outcome: Progressing Problem: Metabolic/Fluid and Electrolytes Goal: Glucose maintained within prescribed range Outcome: Progressing Problem: Fall Risk Goal: Ability to state ways to decrease the risk of falls will improve Outcome: Progressing Goal: Will remain free from falls Outcome: Progressing Goal: Will remain free from injury from falls Outcome: Progressing Problem: Skin/Tissue Integrity Goal: Skin integrity remains intact Outcome: Progressing Goal: Incisions, wounds, or drain sites healing without S/S of infection Outcome: Progressing Problem: Activity Goal: Patient's tolerance of increased activity will improve Outcome: Progressing Goal: Patient will maintain or regain ADL function Outcome: Progressing Goals: Clinical Goals for the Shift: vss, prevent falls/ injury, control pain, esnure rest, monitor las/ surgical wounds [facility] Goal for Treatment: Mobility, Pain management * SHONDA Peña - Desi Wang RN - 03/31/2024 10:24 AM CDT Images from the original note were not included. Patient Information: Wound Info Only Active Wound Assessment Active Wound / Pressure injury / Stevenson / Negative Pressure Wound / Incision Wound 03/09/24 Toe D1, great Anterior;Left Ulceration (non-pressure ulcer) wound assessed 03/10/24--will not follow Date First Assessed 03/09/24 Site Toe D1, great Time First Assessed 0600 Days 22 Location Orientation: Anterior;Left Additional wound location identifiers: Ulceration (non-pressureulcer) wound assessed 03/10/24--will not follow Assessments Row Name 03/30/24193903/30/24 16003/30/2484103/29/242036 Dressing Status Clean/Dry/Intact Changed Clean/Dry/Intact -- Site Assessment HOLLY Eschar HOLLY HOLLY Natalie-wound Assessment HOLLY Dry;Calloused HOLLY HOLLY Interventions -- Cleansed -- -- Dressing -- Other (Comment) foam, kerlix, tape Foam;Gauze -- Wound 03/13/24 Incision Back Date First Assessed 03/13/24 Site Back Time First Assessed 2138 Days 17 Primary Wound Type: Incision Assessments Row Name 03/30/24193903/30/24 16003/30/2484103/29/242036 Dressing Status Clean/Dry/Intact -- Clean/Dry/Intact -- Site Assessment HOLLY -- HOLLY HOLLY Natalie-wound Assessment HOLLY -- HOLLY HOLLY Wound 03/18/24 MASD (Moisture associated skin damage) Groin Anterior;Left Date First Assessed 03/18/24 Site Groin Time First Assessed 1703 Days 12 Present on Original Admission: N Primary Wound Type: MASD Location Orientation: Anterior;Left Assessments Row Name 03/30/24193903/30/24 1602 03/30/2442 03/29/242036 Dressing Status Open to Air -- -- -- Site Assessment [place];Red -- [place];Brown HOLLY Natalie-wound Assessment HOLLY -- -- HOLLY Interventions Cleansed;Site care;Protective ointment -- Cleansed;Site care -- Dressing Open to air -- Open to air -- Wound Status Evolving -- Healing -- Wound 03/19/24 MASD (Moisture associated skin damage) Perineum Posterior redness, tender Date First Assessed 03/19/24 Site Perineum Time First Assessed 1200 Days 11 Present on Original Admission: N per pt Primary Wound Type: MASD Location Orientation: Posterior Additional wound location identifiers: redness, tender Assessments Row Name 03/30/24 1940 03/30/24 1602 03/30/24 0842 03/29/242036 Dressing Status Dry;Intact -- -- -- Site Assessment [place] -- [place];Brown HOLLY Natalie-wound Assessment HOLLY -- -- HOLLY Interventions Cleansed;Site care;Protective ointment -- Cleansed;Site care -- Dressing Open to air -- Open to air -- Wound Status Evolving -- Healing -- Wound 03/22/24 Blister Flank Right;Lower;Lateral Date First Assessed 03/22/24 Site Flank Time First Assessed 0900 Days 9 Primary Wound Type: Blister Location Orientation: Right;Lower;Lateral Assessments Row Name 03/30/24193903/30/24 16003/30/24 0842 03/29/242036 Site Assessment Dry;Intact -- -- HOLLY Natalie-wound Assessment Color appropriate for ethnicity -- -- HOLLY Dressing Open to air -- -- -- * [facility]IN Note - Desi Wang RN - 03/31/2024 10:24 AM CDT Images from the original note were not included. Patient Information: OT Eval and Treat Last 72 Hours OT Evaluation No documentation. OT Treatment Row Name 03/26/24 1635 03/24/24 1112 Session Type -- Treatment - OT Received On -- 03/24/24 - Safe Environment -- Arm band checked;Patient found sitting in chair;Gait belt not utilized, see comment Spinal precautions - Subjective -- Agreeable to Therapy - OT Missed Visit Reason Other (comment) -CE -- Family/Caregiver Present -- No - Precautions -- Fall risk;Cervical spine - Weight Bearing Restrictions -- Yes - LLE Weight Bearing -- WBAT Post op shoe donned - Braces/Orthoses -- Other CTLSO brace donned throughout entirety of session - Precaution Comments -- Verbally reviewed precautions; Patient demonstrated carryover during ADLs/mobility with minimal cues. - Pain Assessment -- 0-10 - Pain Score -- 4 - Pain Location -- Back (Lumbar) - Pain Interventions -- Other (Comment) Declined, patient reports pain is controlled at this time - Static Sitting-Balance Support -- No upper extremity supported;Feet supported - Static Sitting-Sitting Surface -- Chair - Static Sitting-Level of Assistance -- Distant supervision - Dynamic Sitting-Balance Support -- No upper extremity supported;Feet supported - Dynamic Sitting-Balance -- Lateral lean;Forward lean;Reaching for objects;Reaching across midline - Dynamic Sitting-Sitting Surface -- Chair - Dynamic Sitting-Level of Assistance -- Close supervision - Static Standing-Balance Support -- Bilateral upper extremity supported - Static Standing-Standing Surface -- Floor - Static Standing-Level of Assistance -- Contact guard - Static Standing-Comment/# of Minutes -- Guarding assistance for instability affecting balance - Dynamic Standing-Balance Support -- No upper extremity supported;Unilateral upper extremity supported Prop support on elbows with prolonged activity - Dynamic Standing-Balance -- Lateral lean;Forward lean;Reaching for objects;Reaching across midline Standing during grooming task - Dynamic Standing-Standing Surface -- Floor - Dynamic Standing-Level of Assistance -- Minimum assistance - Dynamic Standing-Comments -- LE weakness/balance; Post op shoe affecting balance as shoe not available - Grooming: Where assessed -- Standing at sink - Grooming: Level of assistance -- Minimum Assist Set up task; Decreased dexterity/ROM/coordination of R UE; Min balance - Grooming: Assistance with -- Balance;Safety;Increased time to complete - LE Dressing: Where assessed -- Sitting;Chair - LE Dressing: Level of assistance -- Maximum Assist Max task; Min balance - LE Dressing: Assistance with -- Don/doff R sock;Don/doff L sock;Thread RLE into pants;Thread LLE into pants;Fasteners;Balance;Safety;Use of adaptive equipment - Toileting: Where assessed -- Bedside Commode - Toileting: Level of assistance -- Moderate Assist Mod task Min balance - Toileting: Assistance with -- Clothing management up;Clothing management down;Posterior;Balance;Safety -MD Room Mobility: Where assessed -- To/from doorway and around room -MD Health Management: Equipment -- Walker -MD Room Mobility: Level of Assistance -- Minimum Assist -MD Room Mobility comment -- Assist for balance/unsteadiness -MD Bed Mobility -- No -MD Transfer -- Yes -MD Transfer From 1 -- Sit -MD Transfer Type 1 -- To and from -MD Transfer to 1 -- Stand -MD Technique 1 -- Sit to stand;Stand to sit -MD Transfer Device 1 -- Wheeled walker -MD Transfer Level of Assistance 1 -- Minimum Assist -MD Trials/Comments 1 -- Assist for balance, controlled descent and force production -MD Toilet Transfer From -- Chair with arms -MD Toilet Transfer Type -- To and from -MD Toilet Transfer to -- Standard bedside commode -MD Toilet Transfer Technique -- Ambulating -MD Toilet Transfer: Equipment -- Wheeled walker -MD Toilet Transfers -- Minimal assistance -MD Toilet Transfers Comments -- Assist for balance, controlled descent and force production -MD Arousal/Alertness -- Alert;Appropriate responses to stimuli -MD Attention Span -- Appears intact -MD Current communication -- Appears Intact -MD Orientation -- Oriented X4 (person, place, time, situation) -MD Following Commands -- Follows all commands and directions without difficulty -MD Safety Judgment -- Good awareness of safety precautions -MD Awareness of Errors -- Good awareness of errors made -MD Insight -- Fully aware of deficits -MD Problem Solving -- Able to problem solve independently -MD Compliance/Behavior -- Easy to engage -MD Comments Patient declined therapy on this date d/t family emergency. Upon therapist entering room, patient stated I have had a horrible day. I got the news earlier that my nephew was found in his house. Patient was very upset. Therapist asked if patient would like to see spiritual care, and she said she already saw them this morning. Will attempt to see again at another time/date. -CE Patient would continue to benefit from continued skilled OT to address functional deficits during acute stay. -MD Putting on and taking off regular lower body clothing -- 2 -MD Bathing -- 2 -MD Toileting -- 2 -MD Putting on and taking off upper body clothing -- 2 -MD Personal Grooming -- 3 -MD Eating Meals -- 4 -MD Total Score (range 6-24) -- 15 -MD Score Interpretation -- 34.69 -MD Safe Environment End of Therapy Session -- Patient left in chair;Call light within reach;Overbed table within reach - Problem List -- Decreased upper extremity strength;Decreased upper extremity range of motion;Decreased balance;Decreased sensation;Decreased fine motor control;Decreased functional mobility;DecreasedADL independence;Decreased IADL independence;Decreased UE function -MD Barriers to Discharge -- Current Mobility Status;Current ADL Status - Barrier Comments -- Fall risk -MD Plan -- Continue with current plan;If this is the last note, consider this the discharge summary - OT Recommendation -- Alf Facility -MD Patient at high risk for -- Falls;Readmission;Injury due to decreased ability to care for self;Injury due to reduced functional status;Injury due to balance deficits;Injury at home as patient has notreturned to prior level of function -MD Recommend SNF due to -- Risk of injury at home;Unable to safely care for self in the home;Skilled therapy needed to address care for self in the home;Skilled therapy needed to address functional deficits;Skilled therapy needed for patient to return to prior level of independence - OT Frequency during current admission -- 5-7x/wk -MD Treatment/Interventions during current admission -- ADL/IADL retraining;Balance Training;Functionalactivity;Functional mobility training;Functional transfer training;Strengthening;Therapeutic activity;Therapeutic exercise - Progress during current admission -- Progressing toward goals - OT - Next Appointment -- 03/25/24 - OT - OK to Discharge -- No -MD Start Time -- 111 - Stop Time -- 1150 - Time Calculation (min) -- 38 min - User Ferro (r) = Recorded By, (t) = Taken By, (c) = Cosigned By Initials Name Effective Dates Montse Raines 01/29/24 - Ana Martin, OT 05/05/19 - OT Notes Notes from 03/29/24 through 03/31/24 No notes of this type exist for this encounter. , PT Eval and Treat Last 72 Hours PT Evaluation Row Name 03/25/24 1112 Session Type Treatment -LM Subjective Agreeable to Therapy -LM User Ferro (r) = Recorded By, (t) = Taken By, (c) = Cosigned By Initials Name Effective Dates LM Micheal Ruba L., PT 07/14/19 - PT TREATMENT (Last 168 Hours) PT Treatment Row Name 03/30/24 1156 03/28/24 1431 03/27/24 1353 03/25/24 1112 PT Last Visit Session Type -- Treatment -SETH (r) MS (c) -- -- Safe Environment -- Patient found sitting in chair;Arm band checked;Gait belt utilized for all out of bed mobility -SETH (r) MS (c) -- Arm band checked;Patient found in supine;Gait belt utilized for all out of bed mobility -LM Subjective -- Agreeable to Therapy -SETH (r) MS (c) -- -- PT Missed Visit Reason Patient declined Pat in tears & reported being in significant pain 04/22,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 -AK -- Patient declined pt nephew and she states she feels too sad to participate in therapy today. -NG -- Family/Caregiver Present -- No -SETH (r) MS (c) -- No -LM Current Functional Status PT Functional Mobility -- Interventions: Transfers, education, body mechanics, and therapeutic exercise. -SETH (r) MS (c) -- -- Precautions Precautions -- Fall risk;Cervical spine;Spinal/Back -SETH (r) MS (c) -- Fall risk;Cervical spine;Spinal/Back -LM Weight Bearing Restrictions -- Yes -SETH (r) MS (c) -- Yes -LM RUE Weight Bearing -- WBAT -SETH (r) MS (c) -- -- LUE Weight Bearing -- WBAT -SETH (r) MS (c) -- -- RLE Weight Bearing -- WBAT -SETH (r) MS (c) -- -- LLE Weight Bearing -- WBAT post-op shoe -SETH (r) MS (c) -- WBAT with post op shoe -LM Braces/Orthoses -- -- CTLSO, donned prior to treatment session -SETH (r) MS (c) -- Other CTLSO, mari prior to OOB mobility -LM Precaution Handout Issued -- No -SETH (r) MS (c) -- -- Precaution Comments -- Verbally reviewed and maintained precautions throughout treatment session -SETH (r) MS (c) -- verbally reviewed precautions with patient -LM Activity Tolerance Activity Tolerance Comments -- -- -- kendell: somewhat hard -LM Pain Assessment Pain Assessment -- -- -- 0-10 -LM Pain Score -- -- -- 8 -LM Pain Location -- -- -- Neck -LM Pain Interventions -- -- -- Declines -LM Cognition Arousal/Alertness -- Alert;Appropriate responses to stimuli -SETH (r) MS (c) -- Alert -LM Orientation -- -- -- Oriented X4 (person, place, time, situation) -LM Following Commands -- -- -- Follows all commands and directions without difficulty -LM Compliance/Behavior -- -- -- Easy to engage -LM Balance Balance -- Yes -SETH (r) MS (c) -- -- Static Sitting Balance Static Sitting-Balance Support -- No upper extremity supported -SETH (r) MS (c) -- Bilateral upper extremity supported;Feet supported -LM Static Sitting-Sitting Surface -- Chair -SETH (r) MS (c) -- Bed;Chair -LM Static Sitting-Level of Assistance -- Distant supervision -SETH (r) MS (c) -- Distant supervision -LM Static Sitting-Comment/# of Minutes -- Safety -SETH (r) MS (c) -- for safety -LM Static Standing Balance Static Standing-Balance Support -- Bilateral upper extremity supported WW -SETH (r) MS (c) -- Bilateral upper extremity supported with walker -LM Static Standing-Standing Surface -- Floor -SETH (r) MS (c) -- Floor -LM Static Standing-Level of Assistance -- Close supervision -SETH (r) MS (c) -- Close supervision -LM Static Standing-Comment/# of Minutes -- Safety -SETH (r) MS (c) -- for safety -LM Seated Seated-Exercises -- Lower extremity;Specific exercises -SETH (r) MS (c) -- -- Seated-Exercise Type -- Ankle pumps;Glut sets;Long arc quads B LE -SETH (r) MS (c) -- -- Reps/Sets -- 1x10 -SETH (r) MS (c) -- -- Seated-Motion -- AROM -SETH (r) MS (c) -- -- Seated-Exercise Comments -- 5 sec hold for glute sets -SETH (r) MS (c) -- -- Bed Mobility Bed Mobility -- No -SETH (r) MS (c) -- -- Bed Mobility 1 Bed Mobility From 1 -- -- -- Supine -LM Bed Mobility Type 1 -- -- -- To and from -LM Bed Mobility to 1 -- -- -- Rolling right;Rolling left -LM Level of Assistance 1 -- -- -- Minimum Assist;Minimal verbal cues -LM Bed Mobility Comments 1 -- -- -- 2 reps to right and 1 rep to left; requires min assist to roll to left for trunk rotation due to R arm weakness; able to roll to right with SBA -LM Bed Mobility 2 Bed Mobility From 2 -- -- -- Side lying-right -LM Bed Mobility Type 2 -- -- -- To -LM Bed Mobility to 2 -- -- -- Edge of Bed -LM Level of Assistance 2 -- -- -- Minimum Assist;Minimal verbal cues -LM Bed Mobility Comments 2 -- -- -- with HOB flat; assist to elevate trunk; limited due to right arm weakness -LM Transfers Transfer -- Yes -SETH (r) MS (c) -- -- Transfer 1 Transfer From 1 -- Sit -SETH (r) MS (c) -- Sit -LM Transfer Type 1 -- To and from -SETH (r) MS (c) -- To and from -LM Transfer to 1 -- Stand -SETH (r) MS (c) -- Stand -LM Technique 1 -- Sit to stand;Stand to sit -SETH (r) MS (c) -- -- Transfer Device 1 -- Wheeled walker -SETH (r) MS (c) -- Wheeled walker -LM Transfer Level of Assistance 1 -- Contact Guard Assist -SETH (r) MS (c) -- Minimum Assist;Minimal verbal cues -LM Trials/Comments 1 -- CGA for safety and cueing for use of WW -SETH (r) MS (c) -- with UE support; assist for force production and to control descent -LM Ambulation Functional Ambulation Category -- 2 -SETH (r) MS (c) -- -- Ambulation -- Yes -SETH (r) MS (c) -- -- Ambulation 1 Distance (ft) 1 -- 80 -SETH (r) MS (c) -- 20 -LM Surface 1 -- Level tile -SETH (r) MS (c) -- Level tile -LM Device 1 -- Wheeled walker -SETH (r) MS (c) -- Wheeled walker -LM Assistance 1 -- Minimum Assist -SETH (r) MS (c) -- Minimum Assist;Minimal verbal cues -LM Gait: Requires assist with 1 -- Maintaining balance -SETH (r) MS (c) -- Maintaining balance -LM Gait: Requires verbal cues to 1 -- Pace activity;Improve upright posture -SETH (r) MS (c) -- Pace activity -LM Gait Deviations 1 -- Antalgic;Base of support - decreased;Laurel - decreased;Heel strike - decreased;Posture - flexed;Step length - decreased;Turns - difficulty -SETH (r) MS (c) -- Antalgic;Base of support - decreased;[place] - decreased;Heel strike - decreased;Posture - flexed;Step length - decreased;Turns - difficulty -LM Quality of Gait 1 -- Reciprocal gait pattern -SETH (r) MS (c) -- requires cues to improve upright posture -LM Ambulation Comments 1 -- Pt noted slight fatique but also reported wanting to walk further next time -SETH (r) MS (c) -- Gait distance limited by c/o fatigue and patient reports discomfort from walkingwith L post op shoe and no shoe to right foot. -LM Stairs Stairs -- No -SETH (r) MS (c) -- No -LM Other Comments Other PT Comments -- -- -- Patient states she has been waiting on family or friends to bring her shoes, but they've been unable. Therapist contacted [employer] to order post-op shoe for right foot in order to correct leg length discrepancy from left post op shoe and to make ambulation more comfortable. -LM Basic Mobility - 6 Click How much difficulty does the patient have: Turning over in bed -- 3 -SETH (r) MS (c) -- 3 -LM How much difficulty does the patient currently have: Sitting down and standing up from a chair witharms? -- 4 -SETH (r) MS (c) -- 3 -LM How much difficulty does the patient have: Moving from lying on back to sitting on the side of the bed? -- 3 -SETH (r) MS (c) -- 3 -LM How much difficulty does the patient have: Moving to and from a bed to a chair including wheelchair? -- 3 -SETH (r) MS (c) -- 3 -LM How much help does the patient currently need: Walk in hospital room? -- 3 -SETH (r) MS (c) -- 3 -LM How much help from another person does the patient currently need: Climbing 3-5 steps with a railing? -- 2 -SETH (r) MS (c) -- 2 -LM Total 6 Click Score (range 6-24) -- 18 -SETH -- 17 -LM Score Interpretation -- 41.05 -SETH (r) MS (c) -- -- Safe Environment End of Therapy Session Safe Environment End of Therapy Session -- Patient left in chair;Chair alarm in place and activated;Call light within reach;Overbed table within reach -SETH (r) MS (c) -- Patient left in recliner;RN notified;Chair alarm in place and activated;Call light within reach;Overbed table within reach - Assessment Prognosis -- Good -SETH (r) MS (c) -- -- Problem List -- Gait deviations;Decreased strength;Decreased range of motion;Decreased endurance;Impaired balance;Decreased mobility -SETH (r) MS (c) -- -- Barriers to Discharge -- Current Mobility Status -SETH (r) MS (c) -- -- Plan Plan -- Continue with current plan;If this is the last note, consider this the discharge summary -SETH (r) MS (c) -- Continue with current plan;If this is the last note, consider this the discharge summary -LM Recommendation/Plan PT Recommendation/Plan -- Alf Facility -SETH (r) MS (c) -- Alf Facility - Patient at high risk for -- Falls;Readmission;Injury due to decreased ability to care for self;Injury due to reduced functional status;Injury at home as patient has not returned to prior level of function -SETH (r) MS (c) -- Falls;Readmission;Injury due to decreased ability to care for self;Injury due to reduced functional status;Injury at home as patient has not returned to prior level of function-LM Recommend SNF due to -- Risk of injury at home;Unable to safely care for self in the home;Skilled therapy needed to address functional deficits;Skilled therapy needed for patient to return to prior level of independence -SETH (r) MS (c) -- Risk of injury at home;Unable to safely care for self in the home;Skilled therapy needed to address functional deficits;Skilled therapy needed for patient to return to prior level of independence -LM PT Frequency during current admission -- 5-7x/wk -SETH (r) MS (c) -- 5-7x/wk -LM Treatment/Interventions during current admission -- Balance Training;Functional transfer training;Gait training;Therapeutic activity;Strengthening -SETH (r) MS (c) -- -- PT Equipment Recommended -- Other (Comment) To be determined at next continuum of care -SETH (r) MS (c) -- -- Progress during current admission -- Progressing toward goals -SETH (r) MS (c) -- Slow progress, decreased activity tolerance -LM Time Calculation Start Time -- 1431 -SETH (r) MS (c) -- 1112 -LM Stop Time -- 1458 -SETH (r) MS (c) -- 1142 -LM Time Calculation (min) -- 27 min -SETH -- 30 min -LM User Ferro (r) = Recorded By, (t) = Taken By, (c) = Cosigned By Initials Name Effective Dates [place] NorbertMignon, WAREHOUSE STOCK CLERK 07/14/19 - SETH Wilber SkinnerFelix 02/05/24 - MS Johan Garcia, PT 05/05/19 - NG Moira Mobley, PT 07/21/20 - LM Ruba Burton, PT 07/14/19 - PT Notes Notes from 03/29/24 through 03/31/24 No notes of this type exist for this encounter. * [facility] Note - Desi Wang RN - 03/31/2024 10:24 AM CDT Patient Information: Meds and Admin Active Only All Meds/Most Recent Administrations acetaminophen (TYLENOL) tablet 1,000 mg [[id number]] Ordering Provider: Rosalio Calixto MD Status: Completed (Past End Date/Time) Ordered On: 03/08/241836 Starts/Ends: 03/08/241837 - 03/08/241855 Ordered Dose (Remaining/Total): 1,000 mg (0/1) Route: oral Frequency: Once Ordered Rate/Order Duration: -- / -- Timestamps Action Dose Route Other Information 03/08/241855 Given 1,000 mg oral Performed by: Brionna Pitt RN Scanned Package: 1425-3687-04, 4809-2156-12 droPERidol (INAPSINE) injection 1.25 mg [[id number]] Ordering Provider: Rosalio Calixto MD Status: Completed (Past End Date/Time) Ordered On: 03/08/241838 Starts/Ends: 03/08/241839 - 03/08/241855 Ordered Dose (Remaining/Total): 1.25 mg (0/1) Route: intravenous Frequency: Once Ordered Rate/Order Duration: -- / -- Admin Instructions: If administered IV push, administer over 5 min for adults. Line Med Link Info Comment Peripheral IV 03/08/24 20 G Distal;Left;Posterior Forearm 03/08/241855 by Brionna Pitt RN -- Timestamps Action Dose Route Other Information 03/08/241855 Given 1.25 mg intravenous Performed by: Brionna Pitt RN Scanned Package: 2057-9626-82 fentaNYL (SUBLIMAZE) preservative free injection 50 mcg [[id number]] Ordering Provider: Rosalio Calixto MD Status: Completed (Past End Date/Time) Ordered On: 03/08/241845 Starts/Ends: 03/08/241845 - 03/09/24 0303 Ordered Dose (Remaining/Total): 50 mcg (0/3) Route: intravenous Frequency: Every 1 hour PRN Ordered Rate/Order Duration: -- / -- Line Med Link Info Comment Peripheral IV 03/08/24 20 G Distal;Left;Posterior Forearm 03/08/242139 by Brionna Pitt RN -- Timestamps Action Dose Route Other Information 03/09/24 0303 Given 50 mcg intravenous Performed by: Brionna Pitt RN Scanned Package: 8473-8614-99 ioversoL (OPTIRAY 350) syringe 100 mL [[id number]] Ordering Provider: Rosalio Calixto MD Status: Completed (Past End Date/Time) Ordered On: 03/08/242000 Starts/Ends: 03/08/242000 - 03/08/242000 Ordered Dose (Remaining/Total): 100 mL (0/1) Route: intravenous Frequency: Once in imaging Ordered Rate/Order Duration: -- / -- Line Med Link Info Comment Peripheral IV 03/08/24 20 G Distal;Left;Posterior Forearm 03/08/242000 by Chayo Diaz RT -- Timestamps Action Dose Route Other Information 03/08/242000 Contrast Given 100 mL intravenous Performed by: Chayo Diaz RT ioversoL (OPTIRAY 350) syringe 125 mL [[id number]] Ordering Provider: Rosalio Calixto MD Status: Completed (Past End Date/Time) Ordered On: 03/08/242321 Starts/Ends: 03/08/242321 - 03/08/242353 Ordered Dose (Remaining/Total): 125 mL (0/1) Route: intravenous Frequency: Once in imaging Ordered Rate/Order Duration: -- / -- Line Med Link Info Comment Peripheral IV 03/08/24 20 G Distal;Left;Posterior Forearm 03/08/242353 by Sheyla Hill RT -- Timestamps Action Dose Route Other Information 03/08/242353 Contrast Given 120 mL intravenous Performed by: Sheyla Hill, RT gadoterate meglumine injection 14 mL [[id number]] Ordering Provider: Rosalio Calixto MD Status: Completed (Past End Date/Time) Ordered On: 03/09/24203 Starts/Ends: 03/09/24203 - 03/09/24203 Ordered Dose (Remaining/Total): 14 mL (0/1) Route: intravenous Frequency: Once in imaging Ordered Rate/Order Duration: -- / -- Line Med Link Info Comment Peripheral IV 03/08/24 20 G Distal;Left;Posterior Forearm 03/09/24203 by Haley Hart RT -- Timestamps Action Dose Route Other Information 03/09/24203 Contrast Given 14 mL intravenous Performed by: Haley Hart RT insulin lispro (HumaLOG, ADMELOG) 100 unit/mL injection 4 Units [[id number]] Ordering Provider: Ho An MD Status: Completed (Past End Date/Time) Ordered On: 03/09/24332 Starts/Ends: 03/09/24333 - 03/09/24342 Ordered Dose (Remaining/Total): 4 Units (0/1) Route: subcutaneous Frequency: Once Ordered Rate/Order Duration: -- / -- Timestamps Action Dose Route / Site Other Information 03/09/24342 Given 4 Units subcutaneous Left Lower Abdomen Performed by: Brionna Pitt RN Scanned Package: 8806-2999-58 droPERidol (INAPSINE) injection 1.25 mg [[id number]] Ordering Provider: Ho An MD Status: Completed (Past End Date/Time) Ordered On: 03/09/24423 Starts/Ends: 03/09/24424 - 03/09/24426 Ordered Dose (Remaining/Total): 1.25 mg (0/1) Route: intravenous Frequency: Once Ordered Rate/Order Duration: -- / -- Admin Instructions: If administered IV push, administer over 5 min for adults. Line Med Link Info Comment Peripheral IV 03/09/24 20 G Left Antecubital 03/09/24426 by Odilia Vega RN -- Timestamps Action Dose Route Other Information 03/09/24426 Given 1.25 mg intravenous Performed by: Odilia Vega RN Scanned Package: 1529-6009-96 sodium chloride 0.9% flush 0.5-20 mL [[id number]] Ordering Provider: Ericka Estes MD Status: Verified Ordered On: 03/09/24608 Start: 03/09/24644 Ordered Dose (Remaining/Total): 0.5-20 mL (--/--) Route: intra-catheter Frequency: Every 8 hours scheduled Ordered Rate/Order Duration: -- / -- Admin Instructions: Flush volume based on line type and size. Timestamps Action Dose Route Other Information 03/28/24 0536 Given 10 mL intra-catheter Performed by: Clifford Lindsey RN sodium chloride 0.9% flush 0.5-20 mL [[id number]] Ordering Provider: Ericka Estes MD Status: Verified Ordered On: 03/09/24 06 Start: 03/09/24 06 Ordered Dose (Remaining/Total): 0.5-20 mL (--/--) Route: intra-catheter Frequency: As needed Ordered Rate/Order Duration: -- / -- Admin Instructions: Flush volume based on line type and size. Flush before and after each use. Timestamps Action Dose Route Other Information 03/25/24 0635 Given 10 mL intra-catheter Performed by: Isha Cox RN Scanned Package: [id number] Carrier Fluids for Secondary Infusion - 0.9% Sodium Chloride [[id number]] Ordering Provider: Ericka Estes MD Status: Dispensed Ordered On: 03/09/24608 Start: 03/09/24606 Ordered Dose (Remaining/Total): 30 mL (--/--) Route: intravenous Frequency: As needed Ordered Rate/Order Duration: -- / -- Admin Instructions: 0-250 ml/hr to flush line after IV infusions when no maintenance IV ordered. Infuse 30mL at the same rate as the secondary infusion. Run as primary IV, not intended for KVO. Line Med Link Info Comment Peripheral IV 03/11/24 20 G Left Forearm 03/11/24 1233 by Soco Schwarz RN -- Timestamps Action Dose Route Other Information 03/11/24 1233 Given 3 mL intravenous Performed by: Soco Schwarz RN Comments: art line set up lidocaine (PF) (XYLOCAINE) 10 mg/mL (1 %) preservative free injection 200 mg [[id number]] Ordering Provider: Varun Song MD Status: Completed (Past End Date/Time) Ordered On: 03/09/24 1240 Starts/Ends: 03/09/24 1315 - 03/09/24 1312 Ordered Dose (Remaining/Total): 20 mL (0/1) Route: infiltration Frequency: Once Ordered Rate/Order Duration: -- / -- Timestamps Action Dose Route Other Information 03/09/24 1312 Given 200 mg infiltration Performed by: Keyonna Hernandez RN HYDROmorphone (DILAUDID) injection 0.5 mg [[id number]] Ordering Provider: Varun Song MD Status: Completed (Past End Date/Time) Ordered On: 03/09/24 1309 Starts/Ends: 03/09/24 1345 - 03/09/24 1314 Ordered Dose (Remaining/Total): 0.5 mg (0/1) Route: intravenous Frequency: Once Ordered Rate/Order Duration: -- / 2 Minutes Timestamps Action Dose / Duration Route Other Information 03/09/24 131 Given 0.5 mg 2 Minutes intravenous Performed by: Keyonna Hernandez RN Comments: halo placement droPERidol (INAPSINE) injection 1.25 mg [[id number]] Ordering Provider: Varun Song MD Status: Dispensed (Past End Date/Time) Ordered On: 03/09/24 133 Starts/Ends: 03/09/24 141 - 03/10/24 141 Ordered Dose (Remaining/Total): 1.25 mg (1) Route: intravenous Frequency: Once Ordered Rate/Order Duration: -- / -- Admin Instructions: If administered IV push, administer over 5 min for adults. (No admins scheduled or recorded for this medication) HYDROmorphone (DILAUDID) injection 0.5 mg [[id number]] Ordering Provider: Varun Song MD Status: Completed (Past End Date/Time) Ordered On: 03/09/24 1337 Starts/Ends: 03/09/24 141 - 03/09/24 133 Ordered Dose (Remaining/Total): 0.5 mg (0/1) Route: intravenous Frequency: Once Ordered Rate/Order Duration: -- / 2 Minutes Timestamps Action Dose / Duration Route Other Information 03/09/24 133 Given 0.5 mg 2 Minutes intravenous Performed by: Keyonna Hernandez RN Comments: halo placement methocarbamoL (ROBAXIN) tablet 500 mg [[id number]] Ordering Provider: Bernardino Gleason MD Status: Completed (Past End Date/Time) Ordered On: 03/09/242042 Starts/Ends: 03/09/242114 - 03/09/242122 Ordered Dose (Remaining/Total): 500 mg (0/1) Route: oral Frequency: Once Ordered Rate/Order Duration: -- / -- Timestamps Action Dose Route Other Information 03/09/242122 Given 500 mg oral Performed by: Haley Varner RN Scanned Package: 29771-762-56 magnesium sulfate 2 g/50 mL in water (premix) 2 g [[id number]] Ordering Provider: Bernardino Gleason MD Status: Completed (Past End Date/Time) Ordered On: 03/09/242134 Starts/Ends: 03/09/242214 - 03/09/242326 Ordered Dose (Remaining/Total): 2 g (0/1) Route: intravenous Frequency: Once Ordered Rate/Order Duration: -- / 60 Minutes Timestamps Action Dose / Duration Route Other Information 03/09/242226 New Bag 2 g 60 Minutes intravenous Performed by: Haley Varner RN Scanned Package: 67482-722-88 potassium chloride (KLOR-CON) packet 20 mEq [[id number]] Ordering Provider: Bernardino Gleason MD Status: Completed (Past End Date/Time) Ordered On: 03/09/242134 Starts/Ends: 03/09/242214 - 03/10/24513 Ordered Dose (Remaining/Total): 20 mEq (0/3) Route: feeding tube Frequency: Every 4 hours Ordered Rate/Order Duration: -- / -- Admin Instructions: Total dose = 60 mEq. Recommend to dilute each 15 mL with at least 6 ounces of water or juice prior to administration. Dissolve one packet in at least 120 mL of cold water or otherbeverage prior to administration. Timestamps Action Dose Route Other Information 03/10/24513 Given 20 mEq feeding tube Performed by: Haley Varner RN Scanned Package: [address]-7 HYDROmorphone (DILAUDID) injection 0.5 mg [[id number]] Ordering Provider: Bernardino Gleason MD Status: Completed (Past End Date/Time) Ordered On: 03/10/24 0507 Starts/Ends: 03/10/24 0545 - 03/10/24 0516 Ordered Dose (Remaining/Total): 0.5 mg (0/1) Route: intravenous Frequency: Once Ordered Rate/Order Duration: -- / 2 Minutes Timestamps Action Dose / Duration Route Other Information 03/10/24 0514 Given 0.5 mg 2 Minutes intravenous Performed by: Haley Varner RN Scanned Package: 29829-343-62 magnesium sulfate 2 g/50 mL in water (premix) 2 g [[id number]] Ordering Provider: Yunier Leach MD Status: Completed (Past End Date/Time) Ordered On: 03/10/24 1309 Starts/Ends: 03/10/24 1345 - 03/10/24 1537 Ordered Dose (Remaining/Total): 2 g (0/1) Route: intravenous Frequency: Once Ordered Rate/Order Duration: -- / 60 Minutes Line Med Link Info Comment Peripheral IV 03/09/24 20 G Left Antecubital 03/10/24 1437 by Darius Ghosh RN -- Timestamps Action Dose / Duration Route Other Information 03/10/24 1437 New Bag 2 g 60 Minutes intravenous Performed by: Darius Ghosh RN Scanned Package: 61628-716-61 potassium chloride (KLOR-CON) packet 40 mEq [[id number]] Ordering Provider: Yunier Leach MD Status: Completed (Past End Date/Time) Ordered On: 03/10/24 1430 Starts/Ends: 03/10/24 1745 - 03/10/242042 Ordered Dose (Remaining/Total): 40 mEq (0/2) Route: oral Frequency: Every 4 hours Ordered Rate/Order Duration: -- / -- Admin Instructions: Total dose = 120 mEq. Recommend to dilute each 15 mL with at least 6 ounces of water or juice prior to administration. Dissolve one packet in at least 120 mL of cold water or other beverage prior to administration. Timestamps Action Dose Route Other Information 03/10/242042 Given 40 mEq oral Performed by: Janett Ledezma RN Scanned Package: [address]-1, [address]-3 sodium chloride 0.9% bolus 1,000 mL [[id number]] Ordering Provider: Eloise Knapp MD Status: Completed (Past End Date/Time) Ordered On: 03/11/24 1045 Starts/Ends: 03/11/24 1130 - 03/11/24 1139 Ordered Dose (Remaining/Total): 1,000 mL (0/1) Route: intravenous Frequency: Once Ordered Rate/Order Duration: -- / -- Line Med Link Info Comment Peripheral IV 03/09/24 20 G Left Antecubital 03/11/24 1139 by Soco Schwarz RN-- Timestamps Action Dose Route Other Information 03/11/24 113 New Bag 1,000 mL intravenous Performed by: Soco Schwarz RN Scanned Package: 0297-2016-84, 9064-3546-28 magnesium sulfate 2 g/50 mL in water (premix) 2 g [[id number]] Ordering Provider: Jane Hoover MD Status: Completed (Past End Date/Time) Ordered On: 03/12/24 0132 Starts/Ends: 03/12/24 0215 - 03/12/24 0341 Ordered Dose (Remaining/Total): 2 g (0/1) Route: intravenous Frequency: Once Ordered Rate/Order Duration: -- / 60 Minutes Line Med Link Info Comment Peripheral IV 03/08/24 20 G Distal;Left;Posterior Forearm 03/12/24 0241 by Janett Ledezma RN -- Timestamps Action Dose / Duration Route Other Information 03/12/24 0241 New Bag 2 g 60 Minutes intravenous Performed by: Janett Ledezma RN Scanned Package: 29551-089-13 senna-docusate (PERICOLACE) 8.6-50 mg per tablet 1 tablet [[id number]] Ordering Provider: Ericka Estes MD Status: Dispensed Ordered On: 03/12/24 0954 Start: 03/12/24 2100 Ordered Dose (Remaining/Total): 1 tablet (--/--) Route: oral Frequency: 2 times daily Ordered Rate/Order Duration: -- / -- Timestamps Action Dose Route Other Information 03/31/24 0908 Given 1 tablet oral Performed by: Alyx Ma RN Scanned Package: 3259-9756-97 lidocaine (PF) (XYLOCAINE) 10 mg/mL (1 %) preservative free injection 10-20 mg [[id number]] Ordering Provider: Jane Hoover MD Status: Completed (Past End Date/Time) Ordered On: 03/12/241831 Starts/Ends: 03/12/241914 - 03/12/242129 Ordered Dose (Remaining/Total): 1-2 mL (0/1) Route: subcutaneous Frequency: Once Ordered Rate/Order Duration: -- / -- Admin Instructions: Administer to insertion site prior to procedure of local anesthesia. Administervolume needed to infiltrate site. Timestamps Action Dose Route / Site Other Information 03/12/242129 Given by Other 20 mg subcutaneous Left Forearm Performed by: Janett Ledezma RN Comments: IV Therapy PICC sodium chloride 0.9% flush 5-10 mL [[id number]] Ordering Provider: Ericka Estes MD Status: Verified Ordered On: 03/12/241831 Start: 03/12/242099 Ordered Dose (Remaining/Total): 5-10 mL (--/--) Route: intra-catheter Frequency: Every 12 hours scheduled Ordered Rate/Order Duration: -- / -- Admin Instructions: Flush volume based on line type, size, and protocol. Timestamps Action Dose Route Other Information 03/27/242139 Given 10 mL intra-catheter Performed by: Clifford Lindsey, JULISSA sodium chloride 0.9% flush 5-20 mL [[id number]] Ordering Provider: Ericka Estes MD Status: Verified Ordered On: 03/12/241831 Start: 03/12/241827 Ordered Dose (Remaining/Total): 5-20 mL (--/--) Route: intra-catheter Frequency: As needed Ordered Rate/Order Duration: -- / -- Admin Instructions: Flush volume based on line type, size, and protocol. (No admins scheduled or recorded for this medication) sodium chloride 0.9% flush 5-10 mL [[id number]] Ordering Provider: Ericka Estes MD Status: Verified Ordered On: 03/12/241831 Start: 03/12/24 2100 Ordered Dose (Remaining/Total): 5-10 mL (--/--) Route: intra-catheter Frequency: Every 12 hours scheduled Ordered Rate/Order Duration: -- / -- Admin Instructions: Flush volume based on line type, size, and protocol. Timestamps Action Dose Route Other Information 03/27/242139 Given 10 mL intra-catheter Performed by: Clifford Lindsey RN sodium chloride 0.9% flush 5-20 mL [[id number]] Ordering Provider: Ericka Estes MD Status: Verified Ordered On: 03/12/241831 Start: 03/12/241830 Ordered Dose (Remaining/Total): 5-20 mL (--/--) Route: intra-catheter Frequency: As needed Ordered Rate/Order Duration: -- / -- Admin Instructions: Flush volume based on line type, size, and protocol. (No admins scheduled or recorded for this medication) acetaminophen (TYLENOL) tablet 1,000 mg [[id number]] Ordering Provider: Ericka Estes MD Status: Dispensed Ordered On: 03/13/241119 Start: 03/13/24 1200 Ordered Dose (Remaining/Total): 1,000 mg (--/--) Route: oral Frequency: Every 6 hours scheduled Ordered Rate/Order Duration: -- / -- Timestamps Action Dose Route Other Information 03/31/24 0602 Given 1,000 mg oral Performed by: Leighann Solitario Scanned Package: 5585-7051-34, 3192-3990-99 magnesium sulfate 2 g/50 mL in water (premix) 2 g [[id number]] Ordering Provider: Johnny Corcoran MD Status: Completed (Past End Date/Time) Ordered On: 03/13/24 112 Starts/Ends: 03/13/24 1200 - 03/13/24 1306 Ordered Dose (Remaining/Total): 2 g (0/1) Route: intravenous Frequency: Once Ordered Rate/Order Duration: -- / 60 Minutes Timestamps Action Dose / Duration Route Other Information 03/13/24 1206 New Bag 2 g 60 Minutes intravenous Performed by: Kenyatta Dumont RN Scanned Package: 17387-934-66 ceFAZolin (ANCEF) 1 gram/10 mL in sterile water (premix) 1,000 mg [[id number]] Ordering Provider: Ericka Estes MD Status: Completed (Past End Date/Time) Ordered On: 03/14/24 1101 Starts/Ends: 03/14/24 1130 - 03/15/24 0556 Ordered Dose (Remaining/Total): 1,000 mg (0/3) Route: intravenous Frequency: Every 8 hours scheduled Ordered Rate/Order Duration: 200 mL/hr / 3 Minutes Timestamps Action Dose / Rate / Duration Route Other Information 03/15/24 0553 Given 1,000 mg 200 mL/hr 3 Minutes intravenous Performed by: June Guerrero RN Scanned Package: 4223-9658-82 miconazole (SECURA THICK) 2 % cream [[id number]] Ordering Provider: Linda Haile MD Status: Verified (Past End Date/Time) Ordered On: 03/14/24 0011 Starts/Ends: 03/14/24 0045 - 03/27/24 205 Ordered Dose (Remaining/Total): -- (03/09) Route: topical Frequency: 2 times daily Ordered Rate/Order Duration: -- / -- Question Answer Comment Apply to affected area:: rash -- Timestamps Action Dose / Rate / Duration Route Other Information 03/27/24 0831 Given -- topical Performed by: Mala Lion Scanned Package: 36899-840-12 haloperidol (HALDOL) 5 mg/mL injection - ADS Override Pull [[id number]] Status: Dispensed (Past End Date/Time) Ordered On: 03/14/24 045 Starts/Ends: 03/14/24 045 - 03/14/24 1659 Ordered Dose (Remaining/Total): -- (08/13) Route: -- Frequency: -- Ordered Rate/Order Duration: -- / -- Admin Instructions: Created by cabinet override Note to pharmacy: Created by cabinet override (No admins scheduled or recorded for this medication) linezolid (ZYVOX) tablet 600 mg [[id number]] Ordering Provider: Vince Allen MD Status: Completed (Past End Date/Time) Ordered On: 03/14/24 1155 Starts/Ends: 03/14/24 1230 - 03/14/242113 Ordered Dose (Remaining/Total): 600 mg (0/2) Route: oral Frequency: 2 times daily Ordered Rate/Order Duration: -- / -- Timestamps Action Dose Route Other Information 03/14/242113 Given 600 mg oral Performed by: June Guerrero RN Scanned Package: 83046-739-10 benzocaine-menthoL (CHLORASEPTIC) lozenge 1 lozenge [[id number]] Ordering Provider: Linda Haile MD Status: Dispensed Ordered On: 03/15/24436 Start: 03/15/24436 Ordered Dose (Remaining/Total): 1 lozenge (--/--) Route: mouth/throat Frequency: Every 3 hours PRN Ordered Rate/Order Duration: -- / -- Timestamps Action Dose Route Other Information 03/25/24 1224 Given 1 lozenge mouth/throat Performed by: Liberty Taylor RN Scanned Package: [id number] dextrose gel in packet 15 g [[id number]] Ordering Provider: Linda Haile MD Status: Verified Ordered On: 03/16/24 0851 Start: 03/16/24 0846 Ordered Dose (Remaining/Total): 15 g (--/--) Route: [...] medication) dextrose (D10W) 10% bolus 250 mL [[id number]] Ordering Provider: Linda Haile MD Status: Verified Ordered On: 03/16/24850 Start: 03/16/24845 Ordered Dose (Remaining/Total): 250 mL (--/--) Route: intravenous Frequency: Every 15 min PRN Ordered Rate/Order Duration: 1,000 mL/hr / 15 Minutes Admin Instructions: After treatment for hypoglycemia, recheck BG followed by treatment every 15 minutes until the BG is greater than 100 mg/dL. Then check BG 1 hour post treatment. If BG is less [id number] mg/dL, repeat Q15 minute BG checks and treatment. Call MD for each episode of hypoglycemia. (No admins scheduled or recorded for this medication) glucagon injection 1 mg [[id number]] Ordering Provider: Linda Haile MD Status: Verified Ordered On: 03/16/24850 Start: 03/16/24845 Ordered Dose (Remaining/Total): 1 mg (--/--) Route: [...] admins scheduled or recorded for this medication) oxyCODONE (ROXICODONE) tablet 7.5 mg [[id number]] Ordering Provider: Vince Allen MD Status: Dispensed Ordered On: 03/17/24 1037 Start: 03/17/24 1036 Ordered Dose (Remaining/Total): 7.5 mg (--/--) Route: oral Frequency: Every 4 hours PRN Ordered Rate/Order Duration: -- / -- Timestamps Action Dose Route Other Information 03/31/24 1008 Given 7.5 mg oral Performed by: Alyx Ma RN Scanned Package: 33468-980-69 hydrOXYzine (ATARAX) tablet 50 mg [[id number]] Ordering Provider: Demetri Serrano MD Status: Dispensed Ordered On: 03/17/24 1634 Start: 03/17/24 1634 Ordered Dose (Remaining/Total): 50 mg (--/--) Route: oral Frequency: Every 4 hours PRN Ordered Rate/Order Duration: -- / -- Timestamps Action Dose Route Other Information 03/30/242024 Given 50 mg oral Performed by: Leighann Solitario Scanned Package: 34363-585-14, 26787-995-49 enoxaparin (LOVENOX) syringe 30 mg [[id number]] Ordering Provider: Xochitl Esquivel NP Status: Dispensed Ordered On: 03/18/24 1152 Start: 03/18/242099 Ordered Dose (Remaining/Total): 30 mg (--/--) Route: subcutaneous Frequency: Every 12 hours scheduled Ordered Rate/Order Duration: -- / -- Timestamps Action Dose Route / Site Other Information 03/31/24 0908 Given 30 mg subcutaneous Left Upper Arm Performed by: Alyx Ma RN Scanned Package: 46352-709-79 lidocaine (ASPERCREME) 4 % patch 2 patch [[id number]] Ordering Provider: Xochitl Esquivel NP Status: Dispensed Ordered On: 03/18/24 1152 Start: 03/18/24 1230 Ordered Dose (Remaining/Total): 2 patch (--/--) Route: transdermal Frequency: Every 24 hours Ordered Rate/Order Duration: -- / 12 Hours Question Answer Comment Apply to affected area:: shoulder -- Laterality: Bilateral -- Timestamps Action Dose / Duration Route / Site Other Information 03/30/24 1114 Medication Applied 2 patch 12 Hours transdermal Other (Comment) Performed by: Buffy Washington Scanned Package: 5642-5342-37, 0612-1355-84 traZODone (DESYREL) tablet 50 mg [[id number]] Ordering Provider: Xochitl Esquivel NP Status: Dispensed Ordered On: 03/18/24 1529 Start: 03/18/24 2100 Ordered Dose (Remaining/Total): 50 mg (--/--) Route: oral Frequency: Nightly Ordered Rate/Order Duration: -- / -- Timestamps Action Dose Route Other Information 03/30/242023 Given 50 mg oral Performed by: Leighann Solitario Scanned Package: 66105-360-53 polyethylene glycol (MIRALAX) packet 17 g [[id number]] Ordering Provider: Xochitl Esquivel NP Status: Dispensed Ordered On: 03/19/24 0903 Start: 03/19/24 2100 Ordered Dose (Remaining/Total): 17 g (--/--) Route: oral Frequency: 2 times daily Ordered Rate/Order Duration: -- / -- Timestamps Action Dose Route Other Information 03/22/24 0837 Given 17 g oral Performed by: Chichi Mitchell Scanned Package: 20025-074-24 bisacodyL (DULCOLAX) suppository 10 mg [[id number]] Ordering Provider: Xochitl Esquivel NP Status: Dispensed (Past End Date/Time) Ordered On: 03/19/24 0915 Starts/Ends: 03/19/24 1000 - 03/20/24 1000 Ordered Dose (Remaining/Total): 10 mg (1/1) Route: rectal Frequency: Once Ordered Rate/Order Duration: -- / -- (No admins scheduled or recorded for this medication) HYDROmorphone (DILAUDID) injection 0.2 mg [[id number]] Ordering Provider: Demetri Serrano MD Status: Completed (Past End Date/Time) Ordered On: 03/21/24 0528 Starts/Ends: 03/21/24 0600 - 03/21/24 0545 Ordered Dose (Remaining/Total): 0.2 mg (0/1) Route: intravenous Frequency: Once Ordered Rate/Order Duration: -- / 2 Minutes Timestamps Action Dose / Duration Route Other Information 03/21/24 0543 Given 0.2 mg 2 Minutes intravenous Performed by: Elizabeth Bell RN Scanned Package: 41483-637-31 pregabalin (LYRICA) capsule 100 mg [[id number]] Ordering Provider: Shi Levi MD Status: Dispensed Ordered On: 03/21/24 0730 Start: 03/21/24 09 Ordered Dose (Remaining/Total): 100 mg (--/--) Route: oral Frequency: 3 times daily Ordered Rate/Order Duration: -- / -- Timestamps Action Dose Route Other Information 03/31/24 09 Given 100 mg oral Performed by: Alyx Ma RN Scanned Package: 82218-242-03 insulin glargine (LANTUS, SEMGLEE) 100 unit/mL injection 2 Units [[id number]] Ordering Provider: Demetri Serrano MD Status: Completed (Past End Date/Time) Ordered On: 03/23/241321 Starts/Ends: 03/23/241321 - 03/23/241337 Ordered Dose (Remaining/Total): 2 Units (0/1) Route: subcutaneous Frequency: Once Ordered Rate/Order Duration: -- / -- Admin Instructions: Do not hold if NPO. Do not mix with other insulins Timestamps Action Dose Route / Site Other Information 03/23/241337 Given 2 Units subcutaneous Right Upper Arm Performed by: Dilcia Torres RN Scanned Package: 43572-109-14 insulin glargine (LANTUS, SEMGLEE) 100 unit/mL injection 30 Units [[id number]] Ordering Provider: Ximena Diaz NP Status: Dispensed Ordered On: 03/25/24724 Start: 03/25/24899 Ordered Dose (Remaining/Total): 30 Units (--/--) Route: subcutaneous Frequency: Every morning Ordered Rate/Order Duration: -- / -- Admin Instructions: Do not hold if NPO. Do not mix with other insulins Timestamps Action Dose Route / Site Other Information 03/31/24907 Given 30 Units subcutaneous Right Upper Arm Performed by: Alyx Ma RN Scanned Package: 37521-111-80 insulin lispro (HumaLOG, ADMELOG) 100 unit/mL injection 2 Units [[id number]] Ordering Provider: Ximena Diaz NP Status: Verified Ordered On: 03/25/24 0737 Start: 03/25/24 0734 Ordered Dose (Remaining/Total): 2 Units (--/--) Route: subcutaneous Frequency: Every 6 hours PRN Ordered Rate/Order Duration: -- / -- Admin Instructions: Please give with snacks. (No admins scheduled or recorded for this medication) insulin lispro (HumaLOG, ADMELOG) 100 unit/mL injection 20 Units [[id number]] Ordering Provider: Ximena Diaz NP Status: Dispensed Ordered On: 03/25/24 0745 Start: 03/25/24 0830 Ordered Dose (Remaining/Total): 20 Units (--/--) Route: subcutaneous Frequency: 3 times [...] Action Dose Route / Site Other Information 03/31/24 0923 Given 20 Units subcutaneous Left Lower Abdomen Performed by: Alyx Ma RN Scanned Package: 9303-5314-22 oxyCODONE (ROXICODONE) tablet 5 mg [[id number]] Ordering Provider: Demetri Serrano MD Status: Completed (Past End Date/Time) Ordered On: 03/28/24 1127 Starts/Ends: 03/28/24 1200 - 03/28/24 1214 Ordered Dose (Remaining/Total): 5 mg (0/1) Route: oral Frequency: Once Ordered Rate/Order Duration: -- / -- Timestamps Action Dose Route Other Information 03/28/24 1214 Given 5 mg oral Performed by: Lorena Acevedo RN Scanned Package: [id number] methocarbamoL (ROBAXIN) tablet 1,000 mg [[id number]] Ordering Provider: Karuna Mitchell NP Status: Dispensed Ordered On: 03/28/24 1352 Start: 03/28/24 1700 Ordered Dose (Remaining/Total): 1,000 mg (--/--) Route: oral Frequency: 4 times daily Ordered Rate/Order Duration: -- / -- Timestamps Action Dose Route Other Information 03/31/24 0942 Given 1,000 mg oral Performed by: Alyx Ma RN Scanned Package: [id number], [id number] insulin lispro (HumaLOG, ADMELOG) 100 unit/mL injection 0-10 Units [[id number]] Ordering Provider: Messi Hummel MD Status: Dispensed Ordered On: 03/29/24 1006 Start: 03/29/24 1200 Ordered Dose (Remaining/Total): 0-10 Units (--/--) Route: subcutaneous Frequency: 5 times daily (with meals, nightly, and 0200) Ordered Rate/Order Duration: -- / -- Admin [...] Action Dose Route / Site Other Information 03/31/24 0924 Given 2 Units subcutaneous Left Lower Abdomen Performed by: Alyx Ma RN Scanned Package: [id number] miconazole 2 % cream [[id number]] Ordering Provider: Riki Isidro MD Status: Dispensed (Past End Date/Time) Ordered On: 03/30/242153 Starts/Ends: 03/30/242229 - 03/31/24 0859 Ordered Dose (Remaining/Total): -- (08/13) Route: topical Frequency: 2 times daily Ordered Rate/Order Duration: -- / -- Question Answer Comment Apply to affected area:: diaper area -- (No admins scheduled or recorded for this medication) * Plan of Care - Leighann Solitario - 03/30/2024 11:43 PM CDT Goals: Clinical Goals for the Shift: vss, prevent falls/ injury, control pain, esnure rest, monitor las/ 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 Patient Centered Goal for Treatment: Mobility, Pain management Summary: pt rested well, purewick used for part of the night, pt was provided CHG bath and full linen changed, pain controlled with prn oxycodone and scheduled APAP, no falls/ no injury Problem: Discharge Planning Goal: Understanding discharge needs will improve Outcome: Progressing Flowsheets (Taken 03/22/2024 1000 by Chichi Mitchell) Understanding of discharge needs will improve: Discuss information regarding discharge instructions Identify discharge learning needs (meds, wound care, etc.) Arrange for needed discharge resources and transportation as appropriate Identify discharge barriers Problem: Skin Integrity Impairment Risk Goal: Mobility will improve Outcome: Progressing Flowsheets (Taken 03/30/2024 1056 by Buffy Washington) Mobility will improve: Encourage mobilization to extent of ability, assist with range of motion as needed Assess circulation, sensation and/or motion of extremity Encourage turning and repositioning, assist as needed Encourage ambulation Collaborate with physical therapy Goal: Understanding of ways to prevent future skin breakdown will improve Outcome: Progressing Flowsheets (Taken 03/30/2024 2341) Understanding of ways to prevent future skin breakdown will improve: Discuss treatments to protect skin integrity Discuss treatment plan for related conditions Goal: Nutritional status will improve Outcome: Progressing Flowsheets (Taken 03/22/2024 1000 by Chichi Mitchell) Nutritional status will improve: Assess nutritional status Encourage nutritional intake Monitor intake and output Encourage fluid intake Assist with appropriate dietary choices Discuss dietary adjustments Goal: Risk for impaired skin integrity will decrease Outcome: Progressing Flowsheets (Taken 03/30/2024 2341) Risk for impaired skin integrity will decrease: Identify risk factors for impaired skin integrity and/or pressure injuries Monitor skin integrity, appearance and temperature Implement precautions to protect skin integrity Use moisturizing agent to dry skin Perform cleansing of skin when soiled Provide pressure-redistribution bed, mattress and/or chair cushion Apply skin protectant to elbows and heels Float heels off surface Problem: Lack of Knowledge Goal: Ability to develop a pain control plan will improve Outcome: Progressing Flowsheets (Taken 03/30/2024 1056 by Buffy Washington) Ability to develop a pain control plan will improve: Explain causes of pain and how long pain can be expected to last Teach information regarding pain management Educate pain scale for assessing level of pain Teach notification to healthcare provider of episodes of pain Problem: Medication Goal: Satisfaction with pain management medication regimen will improve Outcome: Progressing Flowsheets (Taken 03/30/2024 1056 by Buffy Washington) Satisfaction with pain management medication regimen will improve: Provide administration of medications prior to painful activities Assess satisfaction with pain management regimen Evaluate medication effects Manage analgesics Report inadequate pain control to healthcare provider Problem: Sensory Goal: Ability to identify factors that increase pain levels will improve while working to decrease the patient's pain levels Outcome: Progressing Flowsheets (Taken 03/23/2024 2100 by Dilcia Torres, RN) Ability to identify factors that increase pain levels will improve while working to decrease patients pain levels: Assess pain status Encourage distraction activities Evaluate treatment plan for related conditions Problem: Coping Goal: Ability to cope will improve Outcome: Progressing Flowsheets (Taken 03/23/2024 2100 by Dilcia Torres, RN) Ability to cope will Improve: Encourage vebalization of feelings surrounding pain Problem: Health Behavior Goal: Identification of resources available to assist in meeting health care needs will improve Outcome: Progressing Flowsheets (Taken 03/30/2024 2341) Identification of resources available to assist in meeting health care needs will improve: Collaborate with pain management Problem: Lack of Knowledge Goal: Ability to describe self care measures that may prevent or decrease complications related to Type 1 Diabetes will improve Outcome: Progressing Flowsheets (Taken 03/22/2024 1000 by Chichi Mitchell) Ability to describe self care measures that may prevent or decrease complications related to Type 1Diabetes will improve: Discuss diabetic foot care Teach risks of complications of diabetes Teach blood glucose measurement Teach urine ketone monitoring Teach signs and symptoms of hyperglycemia Teach signs and symptoms of hypoglycemia Discuss diabetes sick day management Teach/demonstrate insulin injections Discuss signs/symptoms/risks of Diabetic Ketoacidosis (DKA) Goal: Ability to describe self care measures that may prevent or decrease complications related to Type 2 Diabetes will improve Outcome: Progressing Flowsheets (Taken 03/30/2024 1056 by Buffy Washington) Ability to describe self care measures that may prevent or decrease complications related to Type 2Diabetes will improve: Teach blood glucose measurement Teach signs and symptoms of hypoglycemia Teach/demonstrate insulin injections Problem: Health Nutrition Goal: Nutritional intake and knowledge related to Diabetes will improve Outcome: Progressing Flowsheets (Taken 03/30/2024 1056 by Buffy Washington) Nutritional intake and knowledge related to Diabetes will improve: Collaborate with cartridge maker for diabetes evaluation and/or teaching Instruct on counting carbohydrates Problem: Neurosensory Goal: Achieves stable or improved neurological status Outcome: Progressing Flowsheets (Taken 03/30/2024 1056 by Buffy Washington) Achieves Stable or Improved Neurological Status: Assess for and report changes in neurological status Goal: Remains free of injury related to seizures activity Outcome: Progressing Flowsheets (Taken 03/30/2024 2341) Remains free of injury related to seizures activity: Maintain airway, patient safety, and administer oxygen as ordered Goal: Achieves maximal functionality and self care Outcome: Progressing Flowsheets (Taken 03/23/2024 2100 by Dilcia Torres, JULISSA) Achieves maximal functionality and self care: Encourage and assist patient to increase activity andself care with guidance from therapies Goal: Ability to maintain intracranial pressure will improve Outcome: Progressing Flowsheets (Taken 03/30/2024 234) Ability to maintain intracranial pressure will improve: Assess signs and symptoms of increased intracranial pressure Problem: Musculoskeletal Goal: Maintain proper alignment of affected body part Outcome: Progressing Flowsheets (Taken 03/30/2024 1056 by Buffy Washington) Maintain proper alignment of affected body part: Support and protect limb and body alignment per provider's orders Goal: Return mobility to safest level of function Outcome: Progressing Flowsheets (Taken 03/30/2024 1056 by Buffy Washington) Return mobility to safest level of function: Obtain PT/OT consults as needed Assist with transfers and ambulation using safe patient handling equipment as needed Assess patient stability and activity tolerance for standing, transferring and ambulating with or without assistive devices Ensure adequate protection for wounds/incisions during mobilization Instruct patient/family in ordered activity level Goal: Return ADL status to a safe level of function Outcome: Progressing Flowsheets (Taken 03/24/2024 0900 by Maryuri Limon, JULISSA) Return activities of daily living status to a safe level of function: Assess patient's activities of daily living deficits and provide assistive devices as needed Goal: Ability to perform activities at highest level will improve Outcome: Progressing Flowsheets (Taken 03/30/2024 234) Ability to perform activities at highest level will improve: Implement use of braces, orthotics Provide diversional activities Collaborate with rehabilitation services Goal: Mobility, ROM and muscle strength will improve Outcome: Progressing Flowsheets (Taken 03/23/2024 2100 by Dilcia Torres, JULISSA) Mobility, ROM and muscle strength will improve: Provide proper bed mobility techniques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 HS - lispro 2 units PRN q6 with snacks - POC glucoses TID AC, HS, 2AM when eating - Consistent carb diet when eating; no juices, no regular soda - please have community nutrition educator meet with patient - please have account advisor meet with patient- needs further education on food/snack choices - When NPO, continue glargine, hold mealtime lispro, change correctional (sliding scale) lispro andPOC glucoses to Q4hr - Consider D5/0.45NS 100 mls/hr or D10 50 ml/hr if prolonged NPO (>12hrs) - If he has severe hyperglycemia (>300), use the hyperglycemia urgency order set (make NPO, IV insulin, re-check in 1 hour) > The biological half-life of IV insulin is ~40 minutes; it's safer than giving multiple doses of subQ insulin (can last ~4 hours & builds up if given repeatedly). ## Discharge Planning Use ???Adult END Diabetes Discharge?? Order Set F/u with PCP on discharge Likely basal/bolus + Mounjaro -- Karuna Hurst NP Endocrinology, Metabolism, & Lipid Research Contact Info: New Consults: [phone]) General Endocrine (Non-Diabetes): [phone] (Check 'Treatment Team' assignment for Diabetes 1 vs 2 vs 3) Diabetes After-Hours & Weekends: Diabetes Fellow [phone] or [phone] * Plan of Care - Radha Campos RN - 03/28/2024 9:05 AM CDT Akanksha of [facility] ([phone]) left voicemail after hours requesting additional information for patient. Left message with Akanksha to call CM back. Spoke to Akanksha of [facility]. Akanksha informed CM she will review referral with corporate nurse and will call back. Spoke to Moustapha of [facility]. Declined patient at this time due to patient not actively participating in therapy and complex needs. Will follow up with patient to request additional referrals. UPDATE Attempted to update patient on above. Staff currently working with patient. * Plan of Care - Radha Campos RN - 03/27/2024 11:59 AM CDT [facility] unable to accept patient due to patient's care needs exceeding current capacity. Patient requested referral be re-sent to [facility]. CM sent updates to this facility and [facility] and [facility] and [facility] in [place], [place]. Spoke to Maday of [facility] in [place], [place]. Unable to accept patient due to patient's care needs exceeding current capacity. Spoke to admissions of [facility] and [facility] ([phone]). Was informed to fax referral to [phone]. This was completed. * ECIN Note - Radha Campos RN - 03/27/2024 11:57 AM CDT Images from the original note were not included. Patient Information: OT Eval and Treat Last 72 Hours OT Evaluation No documentation. OT Treatment Row Name 03/26/24 1635 03/24/24 1112 Session Type -- Treatment -MD OT Received On -- 03/24/24 - Safe Environment -- Arm band checked;Patient found sitting in chair;Gait belt not utilized, see comment Spinal precautions - Subjective -- Agreeable to Therapy - OT Missed Visit Reason Other (comment) -CE -- Family/Caregiver Present -- No - Precautions -- Fall risk;Cervical spine - Weight Bearing Restrictions -- Yes - LLE Weight Bearing -- WBAT Post op shoe donned - Braces/Orthoses -- Other CTLSO brace donned throughout entirety of session - Precaution Comments -- Verbally reviewed precautions; Patient demonstrated carryover during ADLs/mobility with minimal cues. - Pain Assessment -- 0-10 - Pain Score -- 4 -MD Pain Location -- Back (Lumbar) - Pain Interventions -- Other (Comment) Declined, patient reports pain is controlled at this time - Static Sitting-Balance Support -- No upper extremity supported;Feet supported - Static Sitting-Sitting Surface -- Chair - Static Sitting-Level of Assistance -- Distant supervision - Dynamic Sitting-Balance Support -- No upper extremity supported;Feet supported - Dynamic Sitting-Balance -- Lateral lean;Forward lean;Reaching for objects;Reaching across midline - Dynamic Sitting-Sitting Surface -- Chair -NY Dynamic Sitting-Level of Assistance -- Close supervision - Static Standing-Balance Support -- Bilateral upper extremity supported -NY Static Standing-Standing Surface -- Floor -NY Static Standing-Level of Assistance -- Contact guard - Static Standing-Comment/# of Minutes -- Guarding assistance for instability affecting balance - Dynamic Standing-Balance Support -- No upper extremity supported;Unilateral upper extremity supported Prop support on elbows with prolonged activity - Dynamic Standing-Balance -- Lateral lean;Forward lean;Reaching for objects;Reaching across midline Standing during grooming task - Dynamic Standing-Standing Surface -- Floor -NY Dynamic Standing-Level of Assistance -- Minimum assistance - Dynamic Standing-Comments -- LE weakness/balance; Post op shoe affecting balance as shoe not available - Grooming: Where assessed -- Standing at sink - Grooming: Level of assistance -- Minimum Assist Set up task; Decreased dexterity/ROM/coordination of R UE; Min balance - Grooming: Assistance with -- Balance;Safety;Increased time to complete - LE Dressing: Where assessed -- Sitting;Chair - LE Dressing: Level of assistance -- Maximum Assist Max task; Min balance - LE Dressing: Assistance with -- Don/doff R sock;Don/doff L sock;Thread RLE into pants;Thread LLE into pants;Fasteners;Balance;Safety;Use of adaptive equipment - Toileting: Where assessed -- Bedside Commode - Toileting: Level of assistance -- Moderate Assist Mod task Min balance - Toileting: Assistance with -- Clothing management up;Clothing management down;Posterior;Balance;Safety - Room Mobility: Where assessed -- To/from doorway and around room - Health Management: Equipment -- Walker - Room Mobility: Level of Assistance -- Minimum Assist - Room Mobility comment -- Assist for balance/unsteadiness - Bed Mobility -- No -MD Transfer -- Yes -MD Transfer From 1 -- Sit -MD Transfer Type 1 -- To and from -MD Transfer to 1 -- Stand -MD Technique 1 -- Sit to stand;Stand to sit -MD Transfer Device 1 -- Wheeled walker -MD Transfer Level of Assistance 1 -- Minimum Assist -MD Trials/Comments 1 -- Assist for balance, controlled descent and force production -MD Toilet Transfer From -- Chair with arms -MD Toilet Transfer Type -- To and from -MD Toilet Transfer to -- Standard bedside commode -MD Toilet Transfer Technique -- Ambulating -MD Toilet Transfer: Equipment -- Wheeled walker -MD Toilet Transfers -- Minimal assistance -MD Toilet Transfers Comments -- Assist for balance, controlled descent and force production -MD Arousal/Alertness -- Alert;Appropriate responses to stimuli -MD Attention Span -- Appears intact -MD Current communication -- Appears Intact -MD Orientation -- Oriented X4 (person, place, time, situation) -MD Following Commands -- Follows all commands and directions without difficulty -MD Safety Judgment -- Good awareness of safety precautions -MD Awareness of Errors -- Good awareness of errors made -MD Insight -- Fully aware of deficits -MD Problem Solving -- Able to problem solve independently -MD Compliance/Behavior -- Easy to engage -MD Comments Patient declined therapy on this date d/t family emergency. Upon therapist entering room, patient stated I have had a horrible day. I got the news earlier that my nephew was found in his house. Patient was very upset. Therapist asked if patient would like to see spiritual care, and she said she already saw them this morning. Will attempt to see again at another time/date. -CE Patient would continue to benefit from continued skilled OT to address functional deficits during acute stay. -MD Putting on and taking off regular lower body clothing -- 2 -MD Bathing -- 2 -MD Toileting -- 2 -MD Putting on and taking off upper body clothing -- 2 -MD Personal Grooming -- 3 -MD Eating Meals -- 4 -MD Total Score (range 6-24) -- 15 -MD Score Interpretation -- 34.69 -MD Safe Environment End of Therapy Session -- Patient left in chair;Call light within reach;Overbed table within reach -MD Problem List -- Decreased upper extremity strength;Decreased upper extremity range of motion;Decreased balance;Decreased sensation;Decreased fine motor control;Decreased functional mobility;DecreasedADL independence;Decreased IADL independence;Decreased UE function -MD Barriers to Discharge -- Current Mobility Status;Current ADL Status - Barrier Comments -- Fall risk -MD Plan -- Continue with current plan;If this is the last note, consider this the discharge summary - OT Recommendation -- Alf Facility -MD Patient at high risk for -- Falls;Readmission;Injury due to decreased ability to care for self;Injury due to reduced functional status;Injury due to balance deficits;Injury at home as patient has notreturned to prior level of function -MD Recommend SNF due to -- Risk of injury at home;Unable to safely care for self in the home;Skilled therapy needed to address care for self in the home;Skilled therapy needed to address functional deficits;Skilled therapy needed for patient to return to prior level of independence - OT Frequency during current admission -- 5-7x/wk - Treatment/Interventions during current admission -- ADL/IADL retraining;Balance Training;Functionalactivity;Functional mobility training;Functional transfer training;Strengthening;Therapeutic activity;Therapeutic exercise - Progress during current admission -- Progressing toward goals - OT - Next Appointment -- 03/25/24 - OT - OK to Discharge -- No -MD Start Time -- 111 - Stop Time -- 1150 - Time Calculation (min) -- 38 min - User Ferro (r) = Recorded By, (t) = Taken By, (c) = Cosigned By Initials Name Effective Dates Montse Raines 01/29/24 - Ana Martin, OT 05/05/19 - OT Notes Notes from 03/25/24 through 03/27/24 No notes of this type exist for this encounter. , PT Eval and Treat Last 72 Hours PT Evaluation Row Name 03/25/24 1112 03/22/24 1146 Session Type Treatment -LM Treatment -LM Subjective Agreeable to Therapy -LM Agreeable to Therapy -LM User Ferro (r) = Recorded By, (t) = Taken By, (c) = Cosigned By Initials Name Effective Dates LM Ruba Burton, PT 07/14/19 - PT TREATMENT (Last 168 Hours) PT Treatment Row Name 03/25/24 1112 03/24/24 0930 03/22/24 1146 03/20/24 1413 PT Last Visit Session Type -- Treatment -NB -- Treatment -SM Safe Environment Arm band checked;Patient found in supine;Gait belt utilized for all out of bed mobility -LM Arm band checked;Gait belt utilized for all out of bed mobility;Patient found sitting in chair -NB Arm band checked;Patient found in supine -LM Arm band checked;Patient found sitting at edgeof bed;Session completed bedside;Gait belt not utilized, see comment No gait belt due to spinal incisions -SM Subjective -- Agreeable to Therapy -NB -- Agreeable to Therapy -SM Subjective Comment -- -- Patient reports no one has been able to bring her shoes yet. -LM -- Family/Caregiver Present No -LM No -NB No -LM No -SM Precautions Precautions Fall risk;Cervical spine;Spinal/Back -LM Fall risk;Cervical spine;Spinal/Back -NB Cervical spine;Spinal/Back;Fall risk -LM Cervical spine;Spinal/Back -SM Weight Bearing Restrictions Yes -LM Yes -NB -- No -SM LLE Weight Bearing WBAT with post op shoe -LM WBAT in post op shoe -NB -- -- Braces/Orthoses Other CTLSO, mari prior to OOB mobility -LM Other CTLSO donned prior to mobility -NB -- CTLSO -LM Cervical collar;TLSO -SM Precaution Handout Issued -- -- -- No -SM Precaution Comments verbally reviewed precautions with patient -LM reviewed precautions prior to mobility -NB Verbally reviewed precautions with patient. - LM Verbally reviewed spinal/cervical precautions prior to mobility -SM Activity Tolerance Activity Tolerance Comments kendell: somewhat hard -LM KENDELL: moderate -NB kendell: fairly light -LM Kendell:medium -SM Pain Assessment Pain Assessment 0-10 -LM No/denies pain -NB No/denies pain -LM 0-10 -SM Pain Score 8 -LM -- -- 7 -SM Pain Location Neck -LM -- -- Arm -SM Pain Orientation -- -- -- Right -SM Pain Interventions Declines -LM -- -- Repositioned;Rest -SM Cognition Arousal/Alertness Alert -LM -- Alert -LM Alert;Appropriate responses to stimuli -SM Orientation Oriented X4 (person, place, time, situation) -LM -- Oriented X4 (person, place, time, situation) -LM Oriented X4 (person, place, time, situation) -SM Following Commands Follows all commands and directions without difficulty -LM -- Follows all commands and directions without difficulty -LM Follows all commands and directions without difficulty -SM Compliance/Behavior Easy to engage -LM -- Easy to engage -LM Easy to engage -SM Balance Balance -- -- -- Yes -SM Static Sitting Balance Static Sitting-Balance Support Bilateral upper extremity supported;Feet supported -LM Bilateral upper extremity supported;Feet supported -NB Bilateral upper extremity supported;Feet supported -LM Feet supported;No upper extremity supported -SM Static Sitting-Sitting Surface Bed;Chair -LM Chair -NB Bed -LM Bed -SM Static Sitting-Level of Assistance Distant supervision -LM Close supervision -NB Distant supervision -LM Close supervision -SM Static Sitting-Comment/# of Minutes for safety -LM safety -NB safety -LM For safety -SM Static Standing Balance Static Standing-Balance Support Bilateral upper extremity supported with walker -LM Bilateral upperextremity supported WW -NB Bilateral upper extremity supported with walker -LM Bilateral upper extremity supported -SM Static Standing-Standing Surface Floor -LM Floor -NB Floor -LM Floor -SM Static Standing-Level of Assistance Close supervision -LM Contact guard -NB Close supervision -LM Contact guard -SM Static Standing-Comment/# of Minutes for safety -LM safety/balance -NB for safety -LM CGA for balance/safety -SM Bed Mobility Bed Mobility -- No -NB -- Yes -SM Bed Mobility 1 Bed Mobility From 1 Supine -LM -- Supine -LM Edge of bed - Bed Mobility Type 1 To and from -LM -- To and from -LM To -SM Bed Mobility to 1 Rolling right;Rolling left -LM -- Rolling right;Rolling left - LM Supine -SM Level of Assistance 1 Minimum Assist;Minimal verbal cues -LM -- Minimum Assist;Minimal verbal cues -LM Minimum Assist -SM Bed Mobility Comments 1 2 reps to right and 1 rep to left; requires min assist to roll to left for trunk rotation due to R arm weakness; able to roll to right with SBA -LM -- 1 rep to left and 2 reps to right; with bed rail; min assist to rotate hips and minimal cues for log roll technique - Roseann to control trunk descent - Bed Mobility 2 Bed Mobility From 2 Side lying-right -LM -- Side lying-right -LM -- Bed Mobility Type 2 To -LM -- To -LM -- Bed Mobility to 2 Edge of Bed -LM -- Edge of Bed -LM -- Level of Assistance 2 Minimum Assist;Minimal verbal cues -LM -- Minimum Assist;Minimal verbal cues -LM -- Bed Mobility Comments 2 with HOB flat; assist to elevate trunk; limited due to right arm weakness -LM -- with HOB flat; assist to elevate trunk and cues for technique -LM -- Transfers Transfer -- Yes -NB -- Yes -SM Transfer 1 Transfer From 1 Sit -LM Sit -NB Sit -LM Sit -SM Transfer Type 1 To and from -LM To and from -NB To and from -LM To and from -SM Transfer to 1 Stand -LM Stand -NB Stand -LM Stand -SM Technique 1 -- Stand to sit;Sit to stand -NB -- Sit to stand;Stand to sit -SM Transfer Device 1 Wheeled walker -LM Wheeled walker -NB Wheeled walker -LM Wheeled walker -SM Transfer Level of Assistance 1 Minimum Assist;Minimal verbal cues -LM Minimum Assist -NB Contact Guard Assist -LM Minimum Assist -SM Trials/Comments 1 with UE support; assist for force production and to control descent -LM assist for safety, balance, force production. 2 reps, cueing for hand placement -NB 2 reps; with UE support; CGA for safety. patient demonstrates decreased force production -LM min A for force production and balance. 4 reps total. -SM Transfers 2 Transfer From 2 -- -- Bed -LM -- Transfer Type 2 -- -- To -LM -- Transfer to 2 -- -- Chair with arms -LM -- Technique 2 -- -- Stand and step -LM -- Transfer Device 2 -- -- Wheeled walker -LM -- Transfer Level of Assistance 2 -- -- Minimum Assist;Minimal verbal cues;Minimal tactile cues -LM -- Trials/Comments 2 -- -- assist for balance; cues for positioning -LM -- Ambulation Ambulation -- Yes -NB No -LM No deferred due to feeling unsteady with post-op shoe on one foot and no shoe on other foot. Pt states that son or her friend may bring her a shoe tomorrow. -SM Ambulation 1 Distance (ft) 1 20 -LM 20 -NB -- -- Surface 1 Level tile -LM Level tile -NB -- -- Device 1 Wheeled walker -LM Wheeled walker -NB -- -- Assistance 1 Minimum Assist;Minimal verbal cues -LM Minimum Assist -NB -- -- Gait: Requires assist with 1 Maintaining balance -LM Maintaining balance -NB -- -- Gait: Requires verbal cues to 1 Pace activity -LM Use assistive device safely;Utilize appropriate gait sequencing;Improve upright posture;Utilize pursed lip breathing -NB -- -- Gait Deviations 1 Antalgic;Base of support - decreased;Laurel - decreased;Heel strike - decreased;Posture - flexed;Step length - decreased;Turns - difficulty - LM Base of support - decreased;Laurel - decreased;Posture - flexed;Step length - decreased;Turns - difficulty;Heel strike - decreased -NB -- -- Quality of Gait 1 requires cues to improve upright posture -LM -- -- -- Ambulation Comments 1 Gait distance limited by c/o fatigue and patient reports discomfort from walking with L post op shoe and no shoe to right foot. -LM pt declined further mobility 2/2 fatigue -NB Patient declined to attempt ambulation due to feeling unsteady and uncomfortable walking with L postop shoe and no shoe on right foot. -LM -- Stairs Stairs No -LM No -NB No -LM -- Other Comments Other PT Comments Patient states she has been waiting on family or friends to bring her shoes, but they've been unable. Therapist contacted [employer] to order post- op shoe for right foot in order to correctleg length discrepancy from left post op shoe and to make ambulation more comfortable. -LM -- Patient requires increased time for mobility; tolerates activity fairly well. - pt is motivated to workwith therapy and wants to ambulate, but is anxious and feels unsteady with the post-op shoe on one foot and none on the other. -SM Basic Mobility - 6 Click How much difficulty does the patient have: Turning over in bed 3 -LM 3 -NB 3 -LM 3 -SM How much difficulty does the patient currently have: Sitting down and standing up from a chair witharms? 3 -LM 3 -NB 3 -LM 3 -SM How much difficulty does the patient have: Moving from lying on back to sitting on the side of the bed? 3 -LM 3 -NB 3 -LM 3 -SM How much difficulty does the patient have: Moving to and from a bed to a chair including wheelchair? 3 -LM 3 -NB 3 -LM 3 -SM How much help does the patient currently need: Walk in hospital room? 3 -LM 3 - NB 3 -LM 2 -SM How much help from another person does the patient currently need: Climbing 3-5 steps with a railing? 2 -LM 2 -NB 2 -LM 2 -SM Total 6 Click Score (range 6-24) 17 -LM 17 -NB 17 -LM 16 -SM Score Interpretation -- 39.67 -NB -- -- Safe Environment End of Therapy Session Safe Environment End of Therapy Session Patient left in recliner;RN notified;Chair alarm in place and activated;Call light within reach;Overbed table within reach -LM Patient left in recliner;RN notified;Call light within reach;Overbed table within reach;Chair alarm in place and activated -NB Patient left in chair;Chair alarm in place and activated;RN notified;Call light within reach;Overbed table within reach -LM Patient left supine in bed;Call light within reach;Overbed table within reach -SM Assessment Prognosis -- Good -NB -- Good -SM Problem List -- Gait deviations;Decreased strength;Decreased range of motion;Decreased endurance;Impaired balance;Decreased mobility -NB -- Gait deviations;Decreased strength;Decreased endurance;Impaired balance;Decreased mobility;Pain;Orthopedic restrictions -SM Barriers to Discharge -- Current Mobility Status -NB -- Current Mobility Status;Decreased caregiversupport -SM Plan Plan Continue with current plan;If this is the last note, consider this the discharge summary -LM Continue with current plan;If this is the last note, consider this the discharge summary -NB Continuewith current plan;If this is the last note, consider this the discharge summary -LM Continue with current plan;If this is the last note, consider this the discharge summary -SM Recommendation/Plan PT Recommendation/Plan Alf Facility -LM Alf Facility -NB Alf Facility -LM Alf Facility -SM Patient at high risk for Falls;Readmission;Injury due to decreased ability to care for self;Injury due to reduced functional status;Injury at home as patient has not returned to prior level of function -LM Falls;Readmission;Injury due to decreased ability to care for self;Injury due to reduced functional status;Injury due to balance deficits;Developing secondary complications: poor health management -NB Readmission;Falls;Injury due to decreased ability to care for self;Injury due to reduced functional status;Injury at home as patient has not returned to prior level of function -LM Falls;Readmission;Injury due to balance deficits;Injury due to reduced functional status -SM Recommend SNF due to Risk of injury at home;Unable to safely care for self in the home;Skilled therapy needed to address functional deficits;Skilled therapy needed for patient to return to prior level of independence -LM Risk of injury at home;Unable to safely care for self in the home;Skilled therapy needed to address care for self in the home;Skilled therapy needed to address functional deficits;Skilled therapy needed for patient to return to prior level of independence -NB Risk of injury at home;Skilled therapy needed to address functional deficits;Skilled therapy needed for patient to return to prior level of independence -LM Risk of injury at home;Skilled therapy needed to address functional deficits;Skilled therapy needed for patient to return to prior level of independence -SM PT Frequency during current admission 5-7x/wk -LM 5-7x/wk -NB 5-7x/wk -LM 5- 7x/wk -SM Treatment/Interventions during current admission -- Balance Training;Functional transfer training;Gait training;Therapeutic activity;Strengthening - -- Balance Training;Bed mobility;Endurance training;Functional activity;Functional transfer training;Gait training;Neuromuscular re-education;Stair t raining;Strengthening;Therapeutic activity;Therapeutic exercise;Transfer training - Progress during current admission Slow progress, decreased activity tolerance - LM Progressing toward goals -NB Slow progress, decreased activity tolerance -LM -- Time Calculation Start Time 1112 -LM 0930 -NB 1146 -LM 1413 -SM Stop Time 1142 -LM 1003 -NB 1216 -LM 1443 -SM Time Calculation (min) 30 min -LM 33 min -NB 30 min -LM 30 min -SM User Ferro (r) = Recorded By, (t) = Taken By, (c) = Cosigned By Initials Name Effective Dates NB David Ruano, PT 12/27/21 - SM Antonio Warren, PT 01/30/24 - LM Ruba Burton, PT 07/14/19 - PT Notes 03/25/2024 4:33 PM Progress Notes signed by Ruba Burton, PT * [facility] Note - Radha Campos RN - 03/27/2024 11:56 AM CDT Patient Information: Meds and Admin Active Only All Meds/Most Recent Administrations acetaminophen (TYLENOL) tablet 1,000 mg [[id number]] Ordering Provider: Rosalio Calixto MD Status: Completed (Past End Date/Time) Ordered On: 03/08/241836 Starts/Ends: 03/08/241837 - 03/08/241855 Ordered Dose (Remaining/Total): 1,000 mg (0/1) Route: oral Frequency: Once Ordered Rate/Order Duration: -- / -- Timestamps Action Dose Route Other Information 03/08/241855 Given 1,000 mg oral Performed by: Brionna iPtt RN Scanned Package: 7461-6249-85, 2557-7963-56 droPERidol (INAPSINE) injection 1.25 mg [[id number]] Ordering Provider: Rosalio Calixto MD Status: Completed (Past End Date/Time) Ordered On: 03/08/241838 Starts/Ends: 03/08/241839 - 03/08/241855 Ordered Dose (Remaining/Total): 1.25 mg (0/1) Route: intravenous Frequency: Once Ordered Rate/Order Duration: -- / -- Admin Instructions: If administered IV push, administer over 5 min for adults. Line Med Link Info Comment Peripheral IV 03/08/24 20 G Distal;Left;Posterior Forearm 03/08/241855 by Brionna Pitt RN -- Timestamps Action Dose Route Other Information 03/08/241855 Given 1.25 mg intravenous Performed by: Brionna Pitt RN Scanned Package: 4309-0267-78 fentaNYL (SUBLIMAZE) preservative free injection 50 mcg [[id number]] Ordering Provider: Rosalio Calixto MD Status: Completed (Past End Date/Time) Ordered On: 03/08/241845 Starts/Ends: 03/08/241845 - 03/09/24302 Ordered Dose (Remaining/Total): 50 mcg (0/3) Route: intravenous Frequency: Every 1 hour PRN Ordered Rate/Order Duration: -- / -- Line Med Link Info Comment Peripheral IV 03/08/24 20 G Distal;Left;Posterior Forearm 03/08/242139 by Brionna Pitt RN -- Timestamps Action Dose Route Other Information 03/09/24 030 Given 50 mcg intravenous Performed by: Brionna Pitt RN Scanned Package: 2221-4514-70 ioversoL (OPTIRAY 350) syringe 100 mL [[id number]] Ordering Provider: Rosalio Calixto MD Status: Completed (Past End Date/Time) Ordered On: 03/08/242000 Starts/Ends: 03/08/242000 - 03/08/242000 Ordered Dose (Remaining/Total): 100 mL (0/1) Route: intravenous Frequency: Once in imaging Ordered Rate/Order Duration: -- / -- Line Med Link Info Comment Peripheral IV 03/08/24 20 G Distal;Left;Posterior Forearm 03/08/242000 by Chayo Diaz RT -- Timestamps Action Dose Route Other Information 03/08/242000 Contrast Given 100 mL intravenous Performed by: Chayo Diaz RT ioversoL (OPTIRAY 350) syringe 125 mL [[id number]] Ordering Provider: Rosalio Calixto MD Status: Completed (Past End Date/Time) Ordered On: 03/08/242321 Starts/Ends: 03/08/242321 - 03/08/242353 Ordered Dose (Remaining/Total): 125 mL (0/1) Route: intravenous Frequency: Once in imaging Ordered Rate/Order Duration: -- / -- Line Med Link Info Comment Peripheral IV 03/08/24 20 G Distal;Left;Posterior Forearm 03/08/242353 by Sheyla Hill RT -- Timestamps Action Dose Route Other Information 03/08/242353 Contrast Given 120 mL intravenous Performed by: Sheyla Hill, RT gadoterate meglumine injection 14 mL [[id number]] Ordering Provider: Rosalio Calixto MD Status: Completed (Past End Date/Time) Ordered On: 03/09/24203 Starts/Ends: 03/09/24203 - 03/09/24203 Ordered Dose (Remaining/Total): 14 mL (0/1) Route: intravenous Frequency: Once in imaging Ordered Rate/Order Duration: -- / -- Line Med Link Info Comment Peripheral IV 03/08/24 20 G Distal;Left;Posterior Forearm 03/09/24203 by Haley Hart RT -- Timestamps Action Dose Route Other Information 03/09/24203 Contrast Given 14 mL intravenous Performed by: Haley Hart RT insulin lispro (HumaLOG, ADMELOG) 100 unit/mL injection 4 Units [[id number]] Ordering Provider: Ho An MD Status: Completed (Past End Date/Time) Ordered On: 03/09/24332 Starts/Ends: 03/09/24333 - 03/09/24342 Ordered Dose (Remaining/Total): 4 Units (0/1) Route: subcutaneous Frequency: Once Ordered Rate/Order Duration: -- / -- Timestamps Action Dose Route / Site Other Information 03/09/24342 Given 4 Units subcutaneous Left Lower Abdomen Performed by: Brionna Pitt RN Scanned Package: 1742-2292-47 droPERidol (INAPSINE) injection 1.25 mg [[id number]] Ordering Provider: Ho An MD Status: Completed (Past End Date/Time) Ordered On: 03/09/24423 Starts/Ends: 03/09/24424 - 03/09/24426 Ordered Dose (Remaining/Total): 1.25 mg (0/1) Route: intravenous Frequency: Once Ordered Rate/Order Duration: -- / -- Admin Instructions: If administered IV push, administer over 5 min for adults. Line Med Link Info Comment Peripheral IV 03/09/24 20 G Left Antecubital 03/09/24426 by Odilia Vega RN -- Timestamps Action Dose Route Other Information 03/09/24426 Given 1.25 mg intravenous Performed by: Odilia Vega RN Scanned Package: 5773-6775-03 sodium chloride 0.9% flush 0.5-20 mL [[id number]] Ordering Provider: Ericka Estes MD Status: Verified Ordered On: 03/09/24608 Start: 03/09/24 0645 Ordered Dose (Remaining/Total): 0.5-20 mL (--/--) Route: intra-catheter Frequency: Every 8 hours scheduled Ordered Rate/Order Duration: -- / -- Admin Instructions: Flush volume based on line type and size. Timestamps Action Dose Route Other Information 03/26/245 Given 10 mL intra-catheter Performed by: Mary Zarate Scanned Package: [id number] sodium chloride 0.9% flush 0.5-20 mL [[id number]] Ordering Provider: Ericka Estes MD Status: Verified Ordered On: 03/09/24608 Start: 03/09/24606 Ordered Dose (Remaining/Total): 0.5-20 mL (--/--) Route: intra-catheter Frequency: As needed Ordered Rate/Order Duration: -- / -- Admin Instructions: Flush volume based on line type and size. Flush before and after each use. Timestamps Action Dose Route Other Information 03/25/24 0635 Given 10 mL intra-catheter Performed by: Isha Cox RN Scanned Package: [id number] Carrier Fluids for Secondary Infusion - 0.9% Sodium Chloride [[id number]] Ordering Provider: Ericka Estes MD Status: Dispensed Ordered On: 03/09/24608 Start: 03/09/24606 Ordered Dose (Remaining/Total): 30 mL (--/--) Route: intravenous Frequency: As needed Ordered Rate/Order Duration: -- / -- Admin Instructions: 0-250 ml/hr to flush line after IV infusions when no maintenance IV ordered. Infuse 30mL at the same rate as the secondary infusion. Run as primary IV, not intended for KVO. Line Med Link Info Comment Peripheral IV 03/11/24 20 G Left Forearm 03/11/24 1233 by Soco Schwarz RN -- Timestamps Action Dose Route Other Information 03/11/24 1233 Given 3 mL intravenous Performed by: Soco Schwarz, JULISSA Comments: art line set up lidocaine (PF) (XYLOCAINE) 10 mg/mL (1 %) preservative free injection 200 mg [[id number]] Ordering Provider: Varun Song MD Status: Completed (Past End Date/Time) Ordered On: 03/09/24 1240 Starts/Ends: 03/09/24 1315 - 03/09/24 1312 Ordered Dose (Remaining/Total): 20 mL (0/1) Route: infiltration Frequency: Once Ordered Rate/Order Duration: -- / -- Timestamps Action Dose Route Other Information 03/09/24 1312 Given 200 mg infiltration Performed by: Keyonna Hernandez RN HYDROmorphone (DILAUDID) injection 0.5 mg [[id number]] Ordering Provider: Varun Song MD Status: Completed (Past End Date/Time) Ordered On: 03/09/24 1309 Starts/Ends: 03/09/24 1345 - 03/09/24 1314 Ordered Dose (Remaining/Total): 0.5 mg (0/1) Route: intravenous Frequency: Once Ordered Rate/Order Duration: -- / 2 Minutes Timestamps Action Dose / Duration Route Other Information 03/09/24 1312 Given 0.5 mg 2 Minutes intravenous Performed by: Keyonna Hernandez RN Comments: halo placement droPERidol (INAPSINE) injection 1.25 mg [[id number]] Ordering Provider: Varun Song MD Status: Dispensed (Past End Date/Time) Ordered On: 03/09/24 1336 Starts/Ends: 03/09/24 1415 - 03/10/24 1415 Ordered Dose (Remaining/Total): 1.25 mg (1/1) Route: intravenous Frequency: Once Ordered Rate/Order Duration: -- / -- Admin Instructions: If administered IV push, administer over 5 min for adults. (No admins scheduled or recorded for this medication) HYDROmorphone (DILAUDID) injection 0.5 mg [[id number]] Ordering Provider: Varun Song MD Status: Completed (Past End Date/Time) Ordered On: 03/09/247 Starts/Ends: 03/09/24 141 - 03/09/24 1336 Ordered Dose (Remaining/Total): 0.5 mg (0/1) Route: intravenous Frequency: Once Ordered Rate/Order Duration: -- / 2 Minutes Timestamps Action Dose / Duration Route Other Information 03/09/24 1334 Given 0.5 mg 2 Minutes intravenous Performed by: Keyonna Hernandez RN Comments: halo placement methocarbamoL (ROBAXIN) tablet 500 mg [[id number]] Ordering Provider: Bernardino Gleason MD Status: Completed (Past End Date/Time) Ordered On: 03/09/242042 Starts/Ends: 03/09/242114 - 03/09/242122 Ordered Dose (Remaining/Total): 500 mg (0/1) Route: oral Frequency: Once Ordered Rate/Order Duration: -- / -- Timestamps Action Dose Route Other Information 03/09/242122 Given 500 mg oral Performed by: Haley Varner RN Scanned Package: 34073-816-06 magnesium sulfate 2 g/50 mL in water (premix) 2 g [[id number]] Ordering Provider: Bernardino Gleason MD Status: Completed (Past End Date/Time) Ordered On: 03/09/242134 Starts/Ends: 03/09/242214 - 03/09/242326 Ordered Dose (Remaining/Total): 2 g (0/1) Route: intravenous Frequency: Once Ordered Rate/Order Duration: -- / 60 Minutes Timestamps Action Dose / Duration Route Other Information 03/09/242226 New Bag 2 g 60 Minutes intravenous Performed by: Haley Varner RN Scanned Package: 59952-167-63 potassium chloride (KLOR-CON) packet 20 mEq [[id number]] Ordering Provider: Bernardino Gleason MD Status: Completed (Past End Date/Time) Ordered On: 03/09/242134 Starts/Ends: 03/09/242214 - 03/10/24 0514 Ordered Dose (Remaining/Total): 20 mEq (0/3) Route: feeding tube Frequency: Every 4 hours Ordered Rate/Order Duration: -- / -- Admin Instructions: Total dose = 60 mEq. Recommend to dilute each 15 mL with at least 6 ounces of water or juice prior to administration. Dissolve one packet in at least 120 mL of cold water or otherbeverage prior to administration. Timestamps Action Dose Route Other Information 03/10/24 0514 Given 20 mEq feeding tube Performed by: Haley Varner RN Scanned Package: [address]-0 HYDROmorphone (DILAUDID) injection 0.5 mg [[id number]] Ordering Provider: Bernardino Gleason MD Status: Completed (Past End Date/Time) Ordered On: 03/10/24 0507 Starts/Ends: 03/10/24 0545 - 03/10/24 0516 Ordered Dose (Remaining/Total): 0.5 mg (0/1) Route: intravenous Frequency: Once Ordered Rate/Order Duration: -- / 2 Minutes Timestamps Action Dose / Duration Route Other Information 03/10/2414 Given 0.5 mg 2 Minutes intravenous Performed by: Haley Varner RN Scanned Package: 02951-061-56 magnesium sulfate 2 g/50 mL in water (premix) 2 g [[id number]] Ordering Provider: Yunier Leach MD Status: Completed (Past End Date/Time) Ordered On: 03/10/24 1309 Starts/Ends: 03/10/24 1345 - 03/10/24 1537 Ordered Dose (Remaining/Total): 2 g (0/1) Route: intravenous Frequency: Once Ordered Rate/Order Duration: -- / 60 Minutes Line Med Link Info Comment Peripheral IV 03/09/24 20 G Left Antecubital 03/10/24 1437 by Darius Ghosh RN -- Timestamps Action Dose / Duration Route Other Information 03/10/24 1437 New Bag 2 g 60 Minutes intravenous Performed by: Darius Ghosh RN Scanned Package: 65426-002-62 potassium chloride (KLOR-CON) packet 40 mEq [[id number]] Ordering Provider: Yunier Leach MD Status: Completed (Past End Date/Time) Ordered On: 03/10/24 1430 Starts/Ends: 03/10/24 1745 - 03/10/242042 Ordered Dose (Remaining/Total): 40 mEq (0/2) Route: oral Frequency: Every 4 hours Ordered Rate/Order Duration: -- / -- Admin Instructions: Total dose = 120 mEq. Recommend to dilute each 15 mL with at least 6 ounces of water or juice prior to administration. Dissolve one packet in at least 120 mL of cold water or other beverage prior to administration. Timestamps Action Dose Route Other Information 03/10/242042 Given 40 mEq oral Performed by: Janett Ledezma RN Scanned Package: [address]-3, [address]-5 sodium chloride 0.9% bolus 1,000 mL [[id number]] Ordering Provider: Eloise Knapp MD Status: Completed (Past End Date/Time) Ordered On: 03/11/24 1045 Starts/Ends: 03/11/24 1130 - 03/11/24 1139 Ordered Dose (Remaining/Total): 1,000 mL (0/1) Route: intravenous Frequency: Once Ordered Rate/Order Duration: -- / -- Line Med Link Info Comment Peripheral IV 03/09/24 20 G Left Antecubital 03/11/24 1139 by Soco Schwarz RN-- Timestamps Action Dose Route Other Information 03/11/24 1139 New Bag 1,000 mL intravenous Performed by: Soco Schwarz RN Scanned Package: 7154-8628-54, 2626-7836-99 magnesium sulfate 2 g/50 mL in water (premix) 2 g [[id number]] Ordering Provider: Jane Hoover MD Status: Completed (Past End Date/Time) Ordered On: 03/12/24 0132 Starts/Ends: 03/12/24 0215 - 03/12/24 0341 Ordered Dose (Remaining/Total): 2 g (0/1) Route: intravenous Frequency: Once Ordered Rate/Order Duration: -- / 60 Minutes Line Med Link Info Comment Peripheral IV 03/08/24 20 G Distal;Left;Posterior Forearm 03/12/24 0241 by Janett Ledezma RN -- Timestamps Action Dose / Duration Route Other Information 03/12/24 0241 New Bag 2 g 60 Minutes intravenous Performed by: Janett Ledezma RN Scanned Package: [id number] senna-docusate (PERICOLACE) 8.6-50 mg per tablet 1 tablet [[id number]] Ordering Provider: Ericka Estes MD Status: Dispensed Ordered On: 03/12/24 0954 Start: 03/12/242099 Ordered Dose (Remaining/Total): 1 tablet (--/--) Route: oral Frequency: 2 times daily Ordered Rate/Order Duration: -- / -- Timestamps Action Dose Route Other Information 03/27/24 0827 Given 1 tablet oral Performed by: Mala Lion Scanned Package: 6862-6006-56 lidocaine (PF) (XYLOCAINE) 10 mg/mL (1 %) preservative free injection 10-20 mg [[id number]] Ordering Provider: Jane Hoover MD Status: Completed (Past End Date/Time) Ordered On: 03/12/241831 Starts/Ends: 03/12/241914 - 03/12/242129 Ordered Dose (Remaining/Total): 1-2 mL (0/1) Route: subcutaneous Frequency: Once Ordered Rate/Order Duration: -- / -- Admin Instructions: Administer to insertion site prior to procedure of local anesthesia. Administervolume needed to infiltrate site. Timestamps Action Dose Route / Site Other Information 03/12/242129 Given by Other 20 mg subcutaneous Left Forearm Performed by: Janett Ledezma RN Comments: IV Therapy PICC sodium chloride 0.9% flush 5-10 mL [[id number]] Ordering Provider: Ericka Estes MD Status: Verified Ordered On: 03/12/241831 Start: 03/12/242099 Ordered Dose (Remaining/Total): 5-10 mL (--/--) Route: intra-catheter Frequency: Every 12 hours scheduled Ordered Rate/Order Duration: -- / -- Admin Instructions: Flush volume based on line type, size, and protocol. Timestamps Action Dose Route Other Information 03/25/24 1226 Given 10 mL intra-catheter Performed by: Liberty Taylor RN Scanned Package: [id number] sodium chloride 0.9% flush 5-20 mL [[id number]] Ordering Provider: Ericka Estes MD Status: Verified Ordered On: 03/12/241831 Start: 03/12/241827 Ordered Dose (Remaining/Total): 5-20 mL (--/--) Route: intra-catheter Frequency: As needed Ordered Rate/Order Duration: -- / -- Admin Instructions: Flush volume based on line type, size, and protocol. (No admins scheduled or recorded for this medication) sodium chloride 0.9% flush 5-10 mL [[id number]] Ordering Provider: Ericka Estes MD Status: Verified Ordered On: 03/12/241831 Start: 03/12/242099 Ordered Dose (Remaining/Total): 5-10 mL (--/--) Route: intra-catheter Frequency: Every 12 hours scheduled Ordered Rate/Order Duration: -- / -- Admin Instructions: Flush volume based on line type, size, and protocol. Timestamps Action Dose Route Other Information 03/25/24 1226 Given 10 mL intra-catheter Performed by: Liberty Taylor RN Scanned Package: [id number] sodium chloride 0.9% flush 5-20 mL [[id number]] Ordering Provider: Ericka Estes MD Status: Verified Ordered On: 03/12/241831 Start: 03/12/241830 Ordered Dose (Remaining/Total): 5-20 mL (--/--) Route: intra-catheter Frequency: As needed Ordered Rate/Order Duration: -- / -- Admin Instructions: Flush volume based on line type, size, and protocol. (No admins scheduled or recorded for this medication) acetaminophen (TYLENOL) tablet 1,000 mg [[id number]] Ordering Provider: Ericka Estes MD Status: Dispensed Ordered On: 03/13/24 1120 Start: 03/13/24 1200 Ordered Dose (Remaining/Total): 1,000 mg (--/--) Route: oral Frequency: Every 6 hours scheduled Ordered Rate/Order Duration: -- / -- Timestamps Action Dose Route Other Information 03/27/24 0604 Given 1,000 mg oral Performed by: Mary Zarate Scanned Package: [id number], [id number] magnesium sulfate 2 g/50 mL in water (premix) 2 g [[id number]] Ordering Provider: Johnny Corcoran MD Status: Completed (Past End Date/Time) Ordered On: 03/13/24 1122 Starts/Ends: 03/13/24 1200 - 03/13/24 1306 Ordered Dose (Remaining/Total): 2 g (0/1) Route: intravenous Frequency: Once Ordered Rate/Order Duration: -- / 60 Minutes Timestamps Action Dose / Duration Route Other Information 03/13/24 1206 New Bag 2 g 60 Minutes intravenous Performed by: Kenyatta Dumont RN Scanned Package: [id number] ceFAZolin (ANCEF) 1 gram/10 mL in sterile water (premix) 1,000 mg [[id number]] Ordering Provider: Ericka Estes MD Status: Completed (Past End Date/Time) Ordered On: 03/14/24 1101 Starts/Ends: 03/14/24 1130 - 03/15/24 0556 Ordered Dose (Remaining/Total): 1,000 mg (0/3) Route: intravenous Frequency: Every 8 hours scheduled Ordered Rate/Order Duration: 200 mL/hr / 3 Minutes Timestamps Action Dose / Rate / Duration Route Other Information 03/15/24 0553 Given 1,000 mg 200 mL/hr 3 Minutes intravenous Performed by: June Guerrero RN Scanned Package: [id number] miconazole (SECURA THICK) 2 % cream [[id number]] Ordering Provider: iLnda Haile MD Status: Verified Ordered On: 03/14/24 0011 Starts/Ends: 03/14/24 0045 - 03/27/242058 Ordered Dose (Remaining/Total): -- (03/09) Route: topical Frequency: 2 times daily Ordered Rate/Order Duration: -- / -- Question Answer Comment Apply to affected area:: rash -- Timestamps Action Dose / Rate / Duration Route Other Information 03/27/24 0831 Given -- topical Performed by: Mala Lion Scanned Package: [id number] haloperidol (HALDOL) 5 mg/mL injection - ADS Override Pull [[id number]] Status: Dispensed (Past End Date/Time) Ordered On: 03/14/24451 Starts/Ends: 03/14/24451 - 03/14/24 1659 Ordered Dose (Remaining/Total): -- (08/13) Route: -- Frequency: -- Ordered Rate/Order Duration: -- / -- Admin Instructions: Created by cabinet override Note to pharmacy: Created by cabinet override (No admins scheduled or recorded for this medication) linezolid (ZYVOX) tablet 600 mg [[id number]] Ordering Provider: Vince Allen MD Status: Completed (Past End Date/Time) Ordered On: 03/14/24 1155 Starts/Ends: 03/14/241229 - 03/14/242113 Ordered Dose (Remaining/Total): 600 mg (0) Route: oral Frequency: 2 times daily Ordered Rate/Order Duration: -- / -- Timestamps Action Dose Route Other Information 03/14/242113 Given 600 mg oral Performed by: June Guerrero RN Scanned Package: [id number] benzocaine-menthoL (CHLORASEPTIC) lozenge 1 lozenge [[id number]] Ordering Provider: Linda Haile MD Status: Dispensed Ordered On: 03/15/247 Start: 03/15/24 0437 Ordered Dose (Remaining/Total): 1 lozenge (--/--) Route: mouth/throat Frequency: Every 3 hours PRN Ordered Rate/Order Duration: -- / -- Timestamps Action Dose Route Other Information 03/25/24 1224 Given 1 lozenge mouth/throat Performed by: Liberty Taylor RN Scanned Package: [id number] dextrose gel in packet 15 g [[id number]] Ordering Provider: Linda Haile MD Status: Verified Ordered On: 03/16/24 0851 Start: 03/16/24 0846 Ordered Dose (Remaining/Total): 15 g (--/--) Route: [...] medication) dextrose (D10W) 10% bolus 250 mL [[id number]] Ordering Provider: Linda Haile MD Status: Verified Ordered On: 03/16/24850 Start: 03/16/24845 Ordered Dose (Remaining/Total): 250 mL (--/--) Route: intravenous Frequency: Every 15 min PRN Ordered Rate/Order Duration: 1,000 mL/hr / 15 Minutes Admin Instructions: After treatment for hypoglycemia, recheck BG followed by treatment every 15 minutes until the BG is greater than 100 mg/dL. Then check BG 1 hour post treatment. If BG is less arfh310 mg/dL, repeat Q15 minute BG checks and treatment. Call MD for each episode of hypoglycemia. (No admins scheduled or recorded for this medication) glucagon injection 1 mg [[id number]] Ordering Provider: Linda Haile MD Status: Verified Ordered On: 03/16/24850 Start: 03/16/24845 Ordered Dose (Remaining/Total): 1 mg (--/--) Route: [...] (HumaLOG, ADMELOG) 100 unit/mL injection 0-10 Units [[id number]] Ordering Provider: Linda Haile MD Status: Dispensed Ordered On: 03/16/24 0851 Start: 03/16/24 1200 Ordered Dose (Remaining/Total): 0-10 Units (--/--) Route: [...] Action Dose Route / Site Other Information 03/27/24 0827 Given 4 Units subcutaneous Right Upper Arm Performed by: Mala Lion Scanned Package: [id number] insulin lispro (HumaLOG, ADMELOG) 100 unit/mL injection 0-5 Units [[id number]] Ordering Provider: Linda Haile MD Status: Dispensed Ordered On: 03/16/24 0851 Start: 03/16/24 2100 Ordered Dose (Remaining/Total): 0-5 Units (--/--) [...] Action Dose Route / Site Other Information 03/26/24 2143 Given 2 Units subcutaneous Left Lower Abdomen Performed by: Mary Zarate Scanned Package: 0543-8988-02 oxyCODONE (ROXICODONE) tablet 7.5 mg [[id number]] Ordering Provider: Vince Allen MD Status: Dispensed Ordered On: 03/17/24 1037 Start: 03/17/24 1036 Ordered Dose (Remaining/Total): 7.5 mg (--/--) Route: oral Frequency: Every 4 hours PRN Ordered Rate/Order Duration: -- / -- Timestamps Action Dose Route Other Information 03/27/24 0827 Given 7.5 mg oral Performed by: Mala Lion Scanned Package: [id number] hydrOXYzine (ATARAX) tablet 50 mg [[id number]] Ordering Provider: Demetri Serrano MD Status: Dispensed Ordered On: 03/17/24 1634 Start: 03/17/24 163 Ordered Dose (Remaining/Total): 50 mg (--/--) Route: oral Frequency: Every 4 hours PRN Ordered Rate/Order Duration: -- / -- Timestamps Action Dose Route Other Information 03/27/24 0827 Given 50 mg oral Performed by: Mala Lion Scanned Package: 83190-733-95, 49590-993-74 enoxaparin (LOVENOX) syringe 30 mg [[id number]] Ordering Provider: Xochitl Esquivel NP Status: Dispensed Ordered On: 03/18/24 1152 Start: 03/18/24 2100 Ordered Dose (Remaining/Total): 30 mg (--/--) Route: subcutaneous Frequency: Every 12 hours scheduled Ordered Rate/Order Duration: -- / -- Timestamps Action Dose Route / Site Other Information 03/27/24 0827 Given 30 mg subcutaneous Right Upper Abdomen Performed by: Mala Lion Scanned Package: [id number] lidocaine (ASPERCREME) 4 % patch 2 patch [[id number]] Ordering Provider: Xochitl Esquivel NP Status: Dispensed Ordered On: 03/18/24 1152 Start: 03/18/24 1230 Ordered Dose (Remaining/Total): 2 patch (--/--) Route: transdermal Frequency: Every 24 hours Ordered Rate/Order Duration: -- / 12 Hours Question Answer Comment Apply to affected area:: shoulder -- Laterality: Bilateral -- Timestamps Action Dose / Duration Route / Site Other Information 03/26/24 1235 Medication Applied 2 patch 12 Hours transdermal Other (Comment) Performed by: Mala Lion Comments: r arm r shoulder Scanned Package: [id number], 3769-4064-42 methocarbamoL (ROBAXIN) tablet 750 mg [[id number]] Ordering Provider: Xochitl Esquivel NP Status: Dispensed Ordered On: 03/18/24 1152 Start: 03/18/24 1600 Ordered Dose (Remaining/Total): 750 mg (--/--) Route: oral Frequency: 3 times daily Ordered Rate/Order Duration: -- / -- Timestamps Action Dose Route Other Information 03/27/24 0827 Given 750 mg oral Performed by: Mala Lion Scanned Package: [id number] traZODone (DESYREL) tablet 50 mg [[id number]] Ordering Provider: Xochitl Esquivel NP Status: Dispensed Ordered On: 03/18/24 1529 Start: 03/18/24 2100 Ordered Dose (Remaining/Total): 50 mg (--/--) Route: oral Frequency: Nightly Ordered Rate/Order Duration: -- / -- Timestamps Action Dose Route Other Information 03/26/24 2144 Given 50 mg oral Performed by: Mary Zarate Scanned Package: 50990-391-36 polyethylene glycol (MIRALAX) packet 17 g [[id number]] Ordering Provider: Xochitl Esquivel NP Status: Dispensed Ordered On: 03/19/24 0903 Start: 03/19/24 2100 Ordered Dose (Remaining/Total): 17 g (--/--) Route: oral Frequency: 2 times daily Ordered Rate/Order Duration: -- / -- Timestamps Action Dose Route Other Information 03/22/24 0837 Given 17 g oral Performed by: Chichi Mitchell Scanned Package: 50152-925-86 bisacodyL (DULCOLAX) suppository 10 mg [[id number]] Ordering Provider: Xochitl Esquivel NP Status: Dispensed (Past End Date/Time) Ordered On: 03/19/24 0915 Starts/Ends: 03/19/24 1000 - 03/20/24 1000 Ordered Dose (Remaining/Total): 10 mg (08/13) Route: rectal Frequency: Once Ordered Rate/Order Duration: -- / -- (No admins scheduled or recorded for this medication) HYDROmorphone (DILAUDID) injection 0.2 mg [[id number]] Ordering Provider: Demetri Serrano MD Status: Completed (Past End Date/Time) Ordered On: 03/21/24 0528 Starts/Ends: 03/21/24 0600 - 03/21/24 0545 Ordered Dose (Remaining/Total): 0.2 mg (0/1) Route: intravenous Frequency: Once Ordered Rate/Order Duration: -- / 2 Minutes Timestamps Action Dose / Duration Route Other Information 03/21/24 0543 Given 0.2 mg 2 Minutes intravenous Performed by: Elizabeth Bell RN Scanned Package: [id number] pregabalin (LYRICA) capsule 100 mg [[id number]] Ordering Provider: Shi Levi MD Status: Dispensed Ordered On: 03/21/24 0730 Start: 03/21/24 0900 Ordered Dose (Remaining/Total): 100 mg (--/--) Route: oral Frequency: 3 times daily Ordered Rate/Order Duration: -- / -- Timestamps Action Dose Route Other Information 03/27/24 0827 Given 100 mg oral Performed by: Mala Lion Scanned Package: [id number] insulin glargine (LANTUS,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 intravenous Frequency: Once Ordered Rate/Order Duration: -- / -- Line Med Link Info Comment Peripheral IV 03/09/24 20 G Left Antecubital 03/11/24 1139 by Soco Schwarz RN-- Timestamps Action Dose Route Other Information 03/11/24 1139 New Bag 1,000 mL intravenous Performed by: Soco Schwarz RN Scanned Package: 5133-1248-29 magnesium sulfate 2 g/50 mL in water (premix) 2 g [[id number]] Ordering Provider: Jane Hoover MD Status: Completed (Past End Date/Time) Ordered On: 03/12/24 0132 Starts/Ends: 03/12/24 0215 - 03/12/24 0341 Ordered Dose (Remaining/Total): 2 g (0/1) Route: intravenous Frequency: Once Ordered Rate/Order Duration: -- / 60 Minutes Line Med Link Info Comment Peripheral IV 03/08/24 20 G Distal;Left;Posterior Forearm 03/12/24 0241 by Janett Ledezma RN -- Timestamps Action Dose / Duration Route Other Information 03/12/24 0241 New Bag 2 g 60 Minutes intravenous Performed by: Janett Ledezma RN Scanned Package: 69448-662-90 senna-docusate (PERICOLACE) 8.6-50 mg per tablet 1 tablet [[id number]] Ordering Provider: Ericka Estes MD Status: Dispensed Ordered On: 03/12/24 0954 Start: 03/12/24 2100 Ordered Dose (Remaining/Total): 1 tablet (--/--) Route: oral Frequency: 2 times daily Ordered Rate/Order Duration: -- / -- Timestamps Action Dose Route Other Information 03/20/24 0821 Given 1 tablet oral Performed by: Maryuri Limon RN Scanned Package: 1202-9101-04, 7353-8258-40 lidocaine (PF) (XYLOCAINE) 10 mg/mL (1 %) preservative free injection 10-20 mg [[id number]] Ordering Provider: Jane Hoover MD Status: Completed (Past End Date/Time) Ordered On: 03/12/241831 Starts/Ends: 03/12/241914 - 03/12/242129 Ordered Dose (Remaining/Total): 1-2 mL (0/1) Route: subcutaneous Frequency: Once Ordered Rate/Order Duration: -- / -- Admin Instructions: Administer to insertion site prior to procedure of local anesthesia. Administervolume needed to infiltrate site. Timestamps Action Dose Route / Site Other Information 03/12/242129 Given by Other 20 mg subcutaneous Left Forearm Performed by: Janett Ledezma RN Comments: IV Therapy PICC sodium chloride 0.9% flush 5-10 mL [[id number]] Ordering Provider: Ericka Estes MD Status: Verified Ordered On: 03/12/241831 Start: 03/12/242099 Ordered Dose (Remaining/Total): 5-10 mL (--/--) Route: intra-catheter Frequency: Every 12 hours scheduled Ordered Rate/Order Duration: -- / -- Admin Instructions: Flush volume based on line type, size, and protocol. Timestamps Action Dose Route Other Information 03/19/242331 Given 10 mL intra-catheter Performed by: Rosana Mahoney, JULISSA sodium chloride 0.9% flush 5-20 mL [[id number]] Ordering Provider: Ericka Estes MD Status: Verified Ordered On: 03/12/241831 Start: 03/12/241827 Ordered Dose (Remaining/Total): 5-20 mL (--/--) Route: intra-catheter Frequency: As needed Ordered Rate/Order Duration: -- / -- Admin Instructions: Flush volume based on line type, size, and protocol. (No admins scheduled or recorded for this medication) sodium chloride 0.9% flush 5-10 mL [[id number]] Ordering Provider: Ericka Estes MD Status: Verified Ordered On: 03/12/241831 Start: 03/12/242099 Ordered Dose (Remaining/Total): 5-10 mL (--/--) Route: intra-catheter Frequency: Every 12 hours scheduled Ordered Rate/Order Duration: -- / -- Admin Instructions: Flush volume based on line type, size, and protocol. Timestamps Action Dose Route Other Information 03/19/24 2332 Given 10 mL intra-catheter Performed by: Rosana Mahoney RN sodium chloride 0.9% flush 5-20 mL [[id number]] Ordering Provider: Ericka Estes MD Status: Verified Ordered On: 03/12/241831 Start: 03/12/24 183 Ordered Dose (Remaining/Total): 5-20 mL (--/--) Route: intra-catheter Frequency: As needed Ordered Rate/Order Duration: -- / -- Admin Instructions: Flush volume based on line type, size, and protocol. (No admins scheduled or recorded for this medication) acetaminophen (TYLENOL) tablet 1,000 mg [[id number]] Ordering Provider: Ericka Estes MD Status: Dispensed Ordered On: 03/13/241119 Start: 03/13/24 1200 Ordered Dose (Remaining/Total): 1,000 mg (--/--) Route: oral Frequency: Every 6 hours scheduled Ordered Rate/Order Duration: -- / -- Timestamps Action Dose Route Other Information 03/20/24 0548 Given 1,000 mg oral Performed by: Rosana Mahoney RN Scanned Package: 3064-9011-08, 4118-4805-45 magnesium sulfate 2 g/50 mL in water (premix) 2 g [[id number]] Ordering Provider: Johnny Corcoran MD Status: Completed (Past End Date/Time) Ordered On: 03/13/24 112 Starts/Ends: 03/13/24 1200 - 03/13/24 1306 Ordered Dose (Remaining/Total): 2 g (0/1) Route: intravenous Frequency: Once Ordered Rate/Order Duration: -- / 60 Minutes Timestamps Action Dose / Duration Route Other Information 03/13/24 1206 New Bag 2 g 60 Minutes intravenous Performed by: Kenyatta Dumont RN Scanned Package: 81127-804-53 ceFAZolin (ANCEF) 1 gram/10 mL in sterile water (premix) 1,000 mg [[id number]] Ordering Provider: Ericka Estes MD Status: Completed (Past End Date/Time) Ordered On: 03/14/24 1101 Starts/Ends: 03/14/24 1130 - 03/15/24 0556 Ordered Dose (Remaining/Total): 1,000 mg (0/3) Route: intravenous Frequency: Every 8 hours scheduled Ordered Rate/Order Duration: 200 mL/hr / 3 Minutes Timestamps Action Dose / Rate / Duration Route Other Information 03/15/24 0553 Given 1,000 mg 200 mL/hr 3 Minutes intravenous Performed by: June Guerrero RN miconazole (SECURA THICK) 2 % cream [[id number]] Ordering Provider: Linda Haile MD Status: Verified Ordered On: 03/14/24 0011 Starts/Ends: 03/14/24 0045 - 03/27/242058 Ordered Dose (Remaining/Total): -- () Route: topical Frequency: 2 times daily Ordered Rate/Order Duration: -- / -- Question Answer Comment Apply to affected area:: rash -- Timestamps Action Dose / Rate / Duration Route Other Information 03/19/24 2218 Given -- topical Performed by: Rosana Mahoney RN haloperidol (HALDOL) 5 mg/mL injection - ADS Override Pull [[id number]] Status: Dispensed (Past End Date/Time) Ordered On: 03/14/24 0452 Starts/Ends: 03/14/24 0452 - 03/14/24 1659 Ordered Dose (Remaining/Total): -- (08/13) Route: -- Frequency: -- Ordered Rate/Order Duration: -- / -- Admin Instructions: Created by cabinet override Note to pharmacy: Created by cabinet override (No admins scheduled or recorded for this medication) linezolid (ZYVOX) tablet 600 mg [[id number]] Ordering Provider: Vince Allen MD Status: Completed (Past End Date/Time) Ordered On: 03/14/24 1155 Starts/Ends: 03/14/24 1230 - 03/14/24 2114 Ordered Dose (Remaining/Total): 600 mg (0/2) Route: oral Frequency: 2 times daily Ordered Rate/Order Duration: -- / -- Timestamps Action Dose Route Other Information 03/14/24 2114 Given 600 mg oral Performed by: June Guerrero RN Scanned Package: 00315-783-40 benzocaine-menthoL (CHLORASEPTIC) lozenge 1 lozenge [[id number]] Ordering Provider: Linda Haile MD Status: Dispensed Ordered On: 03/15/24436 Start: 03/15/24436 Ordered Dose (Remaining/Total): 1 lozenge (--/--) Route: mouth/throat Frequency: Every 3 hours PRN Ordered Rate/Order Duration: -- / -- Timestamps Action Dose Route Other Information 03/17/24 180 Given 1 lozenge mouth/throat Performed by: Liberty Taylor RN Scanned Package: [id number] dextrose gel in packet 15 g [[id number]] Ordering Provider: Linda Haile MD Status: Verified Ordered On: 03/16/24850 Start: 03/16/24845 Ordered Dose (Remaining/Total): 15 g (--/--) Route: [...] medication) dextrose (D10W) 10% bolus 250 mL [[id number]] Ordering Provider: Linda Haile MD Status: Verified Ordered On: 03/16/24850 Start: 03/16/24845 Ordered Dose (Remaining/Total): 250 mL (--/--) Route: intravenous Frequency: Every 15 min PRN Ordered Rate/Order Duration: 1,000 mL/hr / 15 Minutes Admin Instructions: After treatment for hypoglycemia, recheck BG followed by treatment every 15 minutes until the BG is greater than 100 mg/dL. Then check BG 1 hour post treatment. If BG is less [id number] mg/dL, repeat Q15 minute BG checks and treatment. Call MD for each episode of hypoglycemia. (No admins scheduled or recorded for this medication) glucagon injection 1 mg [[id number]] Ordering Provider: Linda Haile MD Status: Verified Ordered On: 03/16/24850 Start: 03/16/24845 Ordered Dose (Remaining/Total): 1 mg (--/--) Route: [...] (HumaLOG, ADMELOG) 100 unit/mL injection 0-10 Units [[id number]] Ordering Provider: Linda Haile MD Status: Dispensed Ordered On: 03/16/24850 Start: 03/16/241199 Ordered Dose (Remaining/Total): 0-10 Units (--/--) Route: [...] Action Dose Route / Site Other Information 03/20/24819 Given 2 Units subcutaneous Left Lower Abdomen Performed by: Maryuri Limon RN Scanned Package: 8005-6690-42 insulin lispro (HumaLOG, ADMELOG) 100 unit/mL injection 0-5 Units [[id number]] Ordering Provider: Linda Haile MD Status: Dispensed Ordered On: 03/16/24 0851 Start: 03/16/24 2100 Ordered Dose (Remaining/Total): 0-5 Units (--/--) [...] Action Dose Route / Site Other Information 03/18/24 2207 Given 2 Units subcutaneous Left Upper Arm Performed by: Rosana Mahoney RN Scanned Package: 7365-6526-56 oxyCODONE (ROXICODONE) tablet 7.5 mg [[id number]] Ordering Provider: Vince Allen MD Status: Dispensed Ordered On: 03/17/24 1037 Start: 03/17/24 1036 Ordered Dose (Remaining/Total): 7.5 mg (--/--) Route: oral Frequency: Every 4 hours PRN Ordered Rate/Order Duration: -- / -- Timestamps Action Dose Route Other Information 03/20/24 0548 Given 7.5 mg oral Performed by: Rosana Mahoney RN Scanned Package: 87879-098-28 insulin lispro (HumaLOG, ADMELOG) 100 unit/mL injection 12 Units [[id number]] Ordering Provider: Vince Allen MD Status: Dispensed Ordered On: 03/17/24 1139 Start: 03/17/24 1215 Ordered Dose (Remaining/Total): 12 Units (--/--) Route: subcutaneous Frequency: 3 times [...] Action Dose Route / Site Other Information 03/20/24 0820 Given 12 Units subcutaneous Left Lower Abdomen Performed by: Maryuri Limon RN Scanned Package: 6816-5774-27 hydrOXYzine (ATARAX) tablet 50 mg [[id number]] Ordering Provider: Demetri Serrano MD Status: Dispensed Ordered On: 03/17/24 1634 Start: 03/17/24 1634 Ordered Dose (Remaining/Total): 50 mg (--/--) Route: oral Frequency: Every 4 hours PRN Ordered Rate/Order Duration: -- / -- Timestamps Action Dose Route Other Information 03/19/24 2101 Given 50 mg oral Performed by: Rosana Mahoney RN Scanned Package: 42902-487-38, 92687-214-18 insulin glargine (LANTUS, SEMGLEE) 100 unit/mL injection 22 Units [[id number]] Ordering Provider: Ximena Diaz NP Status: Dispensed Ordered On: 03/18/24 1137 Start: 03/19/24 0900 Ordered Dose (Remaining/Total): 22 Units (--/--) Route: subcutaneous Frequency: Every morning Ordered Rate/Order Duration: -- / -- Admin Instructions: Do not hold if NPO. Do not mix with other insulins Timestamps Action Dose Route / Site Other Information 03/20/24 0820 Given 22 Units subcutaneous Left Lower Abdomen Performed by: Maryuri Limon RN Scanned Package: 72192-992-21 enoxaparin (LOVENOX) syringe 30 mg [[id number]] Ordering Provider: Xochitl Esquivel NP Status: Dispensed Ordered On: 03/18/24 1152 Start: 03/18/24 2100 Ordered Dose (Remaining/Total): 30 mg (--/--) Route: subcutaneous Frequency: Every 12 hours scheduled Ordered Rate/Order Duration: -- / -- Timestamps Action Dose Route / Site Other Information 03/20/24 0821 Given 30 mg subcutaneous Right Lower Abdomen Performed by: Maryuri Limon RN Scanned Package: 28174-805-04 lidocaine (ASPERCREME) 4 % patch 2 patch [[id number]] Ordering Provider: Xochitl Esquivel NP Status: Dispensed Ordered On: 03/18/24 1152 Start: 03/18/24 1230 Ordered Dose (Remaining/Total): 2 patch (--/--) Route: transdermal Frequency: Every 24 hours Ordered Rate/Order Duration: -- / 12 Hours Question Answer Comment Apply to affected area:: shoulder -- Laterality: Bilateral -- Timestamps Action Dose / Duration Route / Site Other Information 03/19/24 1310 Medication Applied 2 patch 12 Hours transdermal Back Performed by: Liberty Taylor RN Scanned Package: 5215-5071-74, 6491-1330-85 methocarbamoL (ROBAXIN) tablet 750 mg [[id number]] Ordering Provider: Xochitl Esquivel NP Status: Dispensed Ordered On: 03/18/24 1152 Start: 03/18/24 1600 Ordered Dose (Remaining/Total): 750 mg (--/--) Route: oral Frequency: 3 times daily Ordered Rate/Order Duration: -- / -- Timestamps Action Dose Route Other Information 03/19/24 210 Given 750 mg oral Performed by: Rosana Mahoney RN Scanned Package: 14283-520-82 traZODone (DESYREL) tablet 50 mg [[id number]] Ordering Provider: Xochitl Esquivel NP Status: Dispensed Ordered On: 03/18/24 1529 Start: 03/18/24 2100 Ordered Dose (Remaining/Total): 50 mg (--/--) Route: oral Frequency: Nightly Ordered Rate/Order Duration: -- / -- Timestamps Action Dose Route Other Information 03/19/24 210 Given 50 mg oral Performed by: Rosana Mahoney RN Scanned Package: 75522-649-75 pregabalin (LYRICA) capsule 75 mg [[id number]] Ordering Provider: Judit Harper MD Status: Dispensed Ordered On: 03/19/24 0902 Start: 03/19/24 0945 Ordered Dose (Remaining/Total): 75 mg (--/--) Route: oral Frequency: 3 times daily Ordered Rate/Order Duration: -- / -- Timestamps Action Dose Route Other Information 03/20/24 0821 Given 75 mg oral Performed by: Maryuri Limon RN Scanned Package: [id number] polyethylene glycol (MIRALAX) packet 17 g [[id number]] Ordering Provider: Xochitl Esquivel NP Status: Dispensed Ordered On: 03/19/24 0903 Start: 03/19/24 2100 Ordered Dose (Remaining/Total): 17 g (--/--) Route: oral Frequency: 2 times daily Ordered Rate/Order Duration: -- / -- (No admins scheduled or recorded for this medication) bisacodyL (DULCOLAX) suppository 10 mg [[id number]] Ordering Provider: Xochitl Esquivel NP Status: Dispensed Ordered On: 03/19/24 0915 Starts/Ends: 03/19/24 1000 - 03/20/24 1000 Ordered Dose (Remaining/Total): 10 mg (08/13) Route: rectal Frequency: Once Ordered Rate/Order Duration: -- / -- (No admins scheduled or recorded for this medication) * [facility] Note - Radha Campos RN - 03/20/2024 9:43 AM CDT Images from the original note were not included. 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) Code Status: FULL Ht: 167.6 cm (5' 6 ) Wt: 98.8 kg (217 lb 13 oz) Admission Cmt: None Principal Problem: Closed unstable burst fracture of T11 vertebra (HCC) [S22.082A] Elopement Risk Date/Time Risk/Reason for Elopement User 03/08/24 1817 No risk JDP Intake/Output 03/17/24 07 - 03/18/24 0659 03/18/24699 - 03/19/24 0659 03/19/24 0700 - 03/20/24 0659 03/20/24 07 - 03/21/24 0659 Total Total 7760-1537 4695-4489 9286-8169 Total 0039-9575 1046-2039 4941-8921 Total Intake (ml) 866.7 1000 240 427 787 7610 -- -- -- -- Output (ml) 7205 6470 2175 4145 384 4614 500 -- -- 500 Net (ml) -6338.3 -5470 -1935 -268 105 -2098 -500 -- -- -500 Patient Lines/Drains/Airways Status Active Airway / Central venous catheter / Drain / Epidural cathether / Intraosseous line / Peripherally inserted central catheter / Peripheral intravenous line / Arterial line Name Placement date Placement time Site Days PICC Triple Lumen 03/12/24 Non-tunneled Power #1 Red, #2 White, #3 [place], Left Basilic 03/12/24 2141Basilic 7 Active Wound Assessment Active Wound / Pressure injury / Stevenson / Negative Pressure Wound / Incision Wound 03/09/24 Ulceration (non-pressure ulcer) Anterior;Left Toe (Comment which one) wound assessed03/10/24--will not follow Date First Assessed 03/09/24 Site Toe (Comment which one) Big Toe Time First Assessed 0600 Days 11 Wound Type: Ulceration (non-pressure ulcer) Location Orientation: Anterior;Left Wound Description (Comments): wound assessed 03/10/24--will not follow Assessments Row Name 03/19/24199903/19/24 1600 03/19/24 1200 03/19/24 0803/18/241999 Wound Status Healing Healing some scabbing Healing some scabbing Healing some scabbing Healing Site Assessment Clean;Dry Clean;Dry Clean;Dry Clean;Dry HOLLY Natalie-wound Assessment Dry;Intact Dry;Intact Dry;Intact Dry;Intact HOLLY Margins Defined edges Defined edges Defined edges Defined edges HOLLY Closure -- -- -- -- Unable to assess Drainage Amount Scant Small Small Small HOLLY Drainage Description Serosanguineous Sanguineous Sanguineous Sanguineous HOLLY Drainage Odor No odor No odor No odor No odor No odor Dressing Status Clean/Dry/Intact Changed Changed Changed Clean/Dry/Intact Dressing Foam;Gauze rolled Foam;Gauze rolled vashe, polymem Foam;Gauze rolled vashe, polymem Foam;Gauze rolled vashe, polymem Foam Interventions -- -- -- Cleansed -- Row Name 03/18/24 1700 Wound Status Healing Site Assessment Clean;Dry;Intact Natalie-wound Assessment Dry;Intact Margins -- Closure -- Drainage Amount -- Drainage Description -- Drainage Odor -- Dressing Status Clean/Dry/Intact Dressing Foam polymem Interventions -- Wound 03/18/24 MASD (Moisture associated skin damage) Anterior;Left Groin Date First Assessed 03/18/24 Site Groin Time First Assessed 1703 Days 1 Present on Hospital Admission: No Wound Type: MASD (Moisture associated skin damage) Location Orientation: Anterior;Left Assessments Row Name 03/19/24199903/19/24159903/19/24119903/19/2479903/18/241999 Wound Status Evolving Evolving Evolving Evolving Healing Site Assessment Red;Moist Red;Moist Red;Moist Red;Moist Red Natalie-wound Assessment Dry;Intact Dry;Intact Dry;Intact Dry;Intact Fragile Drainage Amount None None None None -- Dressing Status Open to Air Open to Air Open to Air Open to Air Open to Air Dressing Protective barrier Protective barrier Protective barrier Protective barrier Protective barrier Interventions Cleansed -- -- Cleansed -- Row Name 03/18/241699 Wound Status Healing Site Assessment Red Natalie-wound Assessment Fragile Drainage Amount -- Dressing Status Open to Air Dressing Protective barrier Interventions Cleansed Wound 03/19/24 MASD (Moisture associated skin damage) Posterior;Other (Comment) Perineum redness, tender Date First Assessed 03/19/24 Site Perineum anus, lower coccyx Time First Assessed 1200 Days less than 1 Present on Hospital Admission: No per pt Wound Type: MASD (Moisture associated skin damage) Location Orientation: Posterior;Other (Comment) Wound Description (Comments): redness, tender Assessments Row Name 03/19/24199903/19/24159903/19/24119903/19/2479903/18/241999 Wound Status Evolving Evolving Evolving -- -- Site Assessment Red;[place] Red;[place] Red;[place] -- -- Natalie-wound Assessment Dry;Intact Dry;Intact Dry;Intact -- -- Closure Open to air Open to air Open to air -- -- Drainage Amount None None None -- -- Dressing Status Open to Air Open to Air Open to Air -- -- Dressing Moisture barrier Moisture barrier Moisture barrier -- -- Interventions Cleansed;Topical barrier cream -- Cleansed;Topical barrier cream -- -- Row Name 03/18/24 1700 Wound Status -- Site Assessment -- Natalie-wound Assessment -- Closure -- Drainage Amount -- Dressing Status -- Dressing -- Interventions -- Surgical Site 03/13/24 Back Date First Assessed 03/13/24 Site Back Time First Assessed 2138 Days 6 Assessments Row Name 03/19/24199903/19/24 1600 03/19/24 1200 03/19/24 0800 03/18/241999 Site Assessment HOLLY HOLLY HOLLY HOLLY HOLLY Natalie-wound Assessment HOLLY HOLLY HOLLY HOLLY HOLLY Closure Unable to assess Unable to assess Unable to assess Unable to assess Unable to assess Drainage Amount HOLLY HOLLY HOLLY HOLLY HOLLY Drainage Description HOLLY HOLLY HOLLY HOLLY HOLLY Drainage Odor No odor No odor No odor No odor No odor Dressing Status Clean, dry, intact Clean, dry, intact Clean, dry, intact Clean, dry, intact Clean, dry, intact Dressing [place] Dressing;Transparent film [place] Dressing;Transparent film [place] Dressing;Transparent film [place] Dressing;Transparent film [place] Dressing Row Name 03/18/24 1700 Site Assessment -- Natalie-wound Assessment -- Closure -- Drainage Amount -- Drainage Description -- Drainage Odor -- Dressing Status -- Dressing -- Da Silva Fall Risk Flowsheet Row Most Recent Value Prior Fall Event (Autopopulated from EMR) None found ............filed at 03/19/20241999 History of Falling 0 ............filed at 03/19/20241999 Secondary Diagnosis 15 ............filed at 03/19/20241999 Ambulatory Aids 15 ............filed at 03/19/20241999 Intravenous Therapy/Heparin/Saline Lock 20 ............filed at 03/19/20241999 Gait/Transferring 10 ............filed at 03/19/20241999 Mental Status 0 ............filed at 03/19/20241999 Da Silva Fall Risk Score 60 ............filed at 03/19/20241999 Vital Signs 03/19 0703/20 0659 03/20 0703/20 0944 Most Recent Temp (??C) 36.6 - 36.8 36.6 36.6 (97.9) 03/20 718 Pulse 87 - 100 86 86 03/20 718 Resp 16 16 16 03/20 718 SpO2 (%) 92 - 95 96 96 03/20 718 BP 105/79 - 129/66 122/56 122/56 03/20 718 MAP (mmHg) 65 - 84 74 74 03/20 718 Default Flowsheet Data (most recent) Endurance Tests No documentation. Nursing Nutrition Feeding Level of Assistance 03/18 1310 Needs assist Appetite 03/18 1310 Good Nursing Mobility Activity 03/20 07 Turn;Resting in bed 03/20 07 Resting in bed 03/20 06 Resting in bed 03/20 0500 Resting in bed 03/20 0405 Resting in bed;Sleeping 03/20 0300 Resting in bed 03/20 0200 Resting in bed 03/20 0100 Resting in bed 03/20 0000 Resting in bed 03/19 230 Resting in bed 03/19 230 Resting in bed 03/19 2200 Resting in bed 03/19 2100 Resting in bed 03/19 2000 Resting in bed 03/19 1946 Resting in bed 03/19 1900 Resting in bed 03/19 1612 Sleeping 03/19 1455 Sleeping 03/19 1415 Sleeping 03/19 1300 Resting in bed 03/19 1200 Commode 03/19 1105 Resting in bed 03/19 1000 Chair;Turn 03/19 0800 Chair 03/19 0740 Resting in bed 03/19 0600 Resting in bed 03/19 0531 Resting in bed 03/19 0500 Resting in bed;Turn 03/19 0433 Resting in bed 03/19 0400 Resting in bed;Turn 03/19 0300 Resting in bed 03/19 0200 Resting in bed 03/19 0100 Resting in bed 03/19 0011 Resting in bed 03/19 0000 Resting in bed 03/18 2200 Resting in bed 03/18 2100 Resting in bed 03/18 2032 Resting in bed 03/18 2000 Resting in bed 03/18 1900 Resting in bed 03/18 1653 Resting in bed 03/18 1600 Resting in bed 03/18 1534 Resting in bed 03/18 1423 Sleeping 03/18 1340 Resting in bed 03/18 1300 Turn;Resting in bed 03/18 1100 Resting in bed 03/18 0900 Resting in bed 03/18 0747 Resting in bed 03/18 0746 Resting in bed 03/18 0600 Resting in bed 03/18 0500 Resting in bed 03/18 0417 Resting in bed;Sleeping 03/18 0300 Resting in bed 03/18 0200 Resting in bed 03/18 0100 Resting in bed 03/17 2352 Resting in bed 03/17 2300 Resting in bed 03/17 2200 Resting in bed 03/17 2100 Resting in bed 03/17 2009 Resting in bed;Sleeping 03/17 2000 Resting in bed 03/17 1900 Resting in bed 03/17 1456 Stand at bedside;Resting in bed 03/17 1400 Chair (Comment: wheelchair resting while room is prepped, VS taken) Patient Assistance 03/19 08 Contact guard assist, steadying assist 03/18 1100 Moderate assist, patient does 50-74% 03/18 900 Moderate assist, patient does 50-74% 03/17 1456 Contact guard assist, steadying assist Assistive Device/Equipment Needed 03/19 08 Walker 03/18 1300 Gait belt;Walker 03/18 900 Walker 03/17 1456 Walker Ambulation Response 03/19 800 Tolerated well 03/18 1300 Tolerated well 03/18 09 Tolerated well 03/17 145 Tolerated fairly well Repositioned 03/19 2200 Pillow support;Left Side 03/19 0531 Supine 03/19 0400 Pillow support;Left Side 03/18 2200 Supine 03/18 1300 Supine 03/18 09 Supine 03/18 06 Supine 03/17 1456 Semi-fowlers Head of Bed Elevated 03/18 1300 HOB 30 03/18 0900 HOB 30 Heels/Feet 03/18 1300 Foot of bed elevated 03/18 0900 Foot of bed elevated 03/17 1456 Foot of bed elevated Range of Motion 03/19 2000 Active;All extremities 03/19 1600 Active;All extremities 03/19 1200 Active;All extremities 03/19 0800 Active;All extremities 03/18 2000 Active;All extremities 03/18 1300 Active;All extremities 08/06 0900 Active;All extremities 03/17 2000 Active;All extremities 03/17 1456 Active;All extremities Type of Device 03/19 800 Mechanical compression 03/17 1400 Mechanical compression Mechanical Compression Site 03/19 2000 Bilateral 03/19 800 Bilateral 03/18 2000 Bilateral 03/18 800 Bilateral 03/17 2000 Bilateral 03/17 1400 Bilateral Mechanical Compression Type 03/19 2000 IPC/SCD 03/19 800 IPC/SCD 03/18 2000 IPC/SCD 03/18 800 IPC/SCD 03/17 2000 IPC/SCD 03/17 1400 IPC/SCD Mechanical Compression Status 03/19 2000 Off 03/18 2000 Off 03/18 800 Off 03/17 2000 Off * Plan of Care - Rosana Mahoney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 VIEWS ED 03/08/2024 8:22 PM CDT XR RADIUS ULNA RIGHT 2 VIEWS ED 03/08/2024 8:[address] RECON THORACIC AND LUMBAR SPINE W CONTRAST ED 03/08/2024 8:[address] CHEST ABDOMEN PELVIS W CONTRAST ED 03/08/2024 8:[address] HEAD CERVICAL FACIAL WO CONTRAST ED 03/08/2024 8:00 PM CDT POCT CREATININE - DEVICE Routine 03/08/2024 7:12 PM CDT EGFR STAT 03/08/2024 7:04 PM CDT DIFFERENTIAL AUTO STAT 03/08/2024 7:0 4 PM CDT CBC WITH AUTO DIFFERENTIAL STAT 03/08/2024 7:04 PM CDT TYPE AND SCREEN STAT 03/08/2024 7:04 PM CDT ETHANOL STAT 03/08/2024 7:04 PM CDT COMPREHENSIVE METABOLIC PANEL STAT 03/08/2024 7:04 PM CDT POCT GLUCOSE DEVICE Routine 03/08/2024 6 :14 PM CDT POCT KETONE, BLOOD Routine 03/08/2024 6: 14 PM CDT SPINAL CORD MONITORING Closed unstable burst fracture of eleventh thoracic vertebra, initial encounter (HCC) FUSION SPINAL - POSTERIOR LUMBAR/THORACIC WITH INSTRUMENTATION Closed unstable burst fracture of eleventh thoracic vertebra, initial encounter ([facility]) documented in this encounter Results * (ABNORMAL) POCT glucose (04/08/2024 11:35 AM CDT) Glucose, POC 249(H) 70 - 199 mg/dL Comment:Glu2: RN/MD Notified Glucose comment 1 Glu2: RN/MD Notified [facility] Blood 04/08/2024 11:3 5 AM CDT 04/08/2024 11:35 AM CDT Chadd Toledo DO LAB POCT ORDERABLES - DEVICE Final Result Performing Organization Address City/[facility]/ZIP Co de Phone Number [facility] [employer] [place] [place] [address] * POCT glucose (04/08/2024 8:03 AM CDT) Glucose, POC 181 70 - 199 mg/dL Blood 04/08/2024 8:03 AM CDT 04/08/2024 8:03 AM CDT Chadd Toledo DO LAB POCT ORDERABLES - DEVICE Final Result Performing Organization Address City/[facility]/ZIP Co de Phone Number [facility] [place] [address] * POCT glucose (04/08/2024 2:19 AM CDT) Glucose, POC 164 70 - 199 mg/dL Blood 04/08/2024 2:19 AM CDT 04/08/2024 2:19 AM CDT Chadd Toledo DO LAB POCT ORDERABLES - DEVICE Final Result Performing Organization Address [facility] de Phone Number [facility] [employer] [place] [address] * POCT glucose (04/07/2024 9:47 PM CDT) Glucose, POC 168 70 - 199 mg/dL Blood 04/07/2024 9:47 PM CDT 04/07/2024 9:47 PM CDT Chadd Toledo DO LAB POCT ORDERABLES - DEVICE Final Result Performing Organization Address [facility] de Phone Number [facility] [employer] [place] [address] * POCT glucose (04/07/2024 6:10 PM CDT) Glucose, POC 146 70 - 199 mg/dL Blood 04/07/2024 6:10 PM CDT 04/07/2024 6:10 PM CDT Chadd Toledo DO LAB POCT ORDERABLES - DEVICE Final Result Performing Organization Address [facility] de Phone Number [facility] [employer] [place] [address] * (ABNORMAL) POCT glucose (04/07/2024 12:23 PM CDT) Glucose, POC 227(H) 70 - 199 mg/dL Blood 04/07/2024 12:2 3 PM CDT 04/07/2024 12:23 PM CDT us Chadd Toledo DO LAB POCT ORDERABLES - DEVICE Final Result Performing Organization Address [facility] Co de Phone Number [facility] [employer] [place] [address] * POCT glucose (04/07/2024 7:45 AM CDT) Glucose, POC 195 70 - 199 mg/dL Blood 04/07/2024 7:45 AM CDT 04/07/2024 7:45 AM CDT us Chadd Toledo DO LAB POCT ORDERABLES - DEVICE Final Result Performing Organization Address [facility] Co de Phone Number [facility] [place] [address] * POCT glucose (04/07/2024 2:11 AM CDT) Glucose, POC 183 70 - 199 mg/dL Blood 04/07/2024 2:11 AM CDT 04/07/2024 2:11 AM CDT us Chadd Toledo DO LAB POCT ORDERABLES - DEVICE Final Result Performing Organization Address [facility] Co de Phone Number [facility] [employer] [place] [address] * POCT glucose (04/06/2024 9:43 PM CDT) Glucose, POC 172 70 - 199 mg/dL Blood 04/06/2024 9:43 PM CDT 04/06/2024 9:43 PM CDT us Chadd Toledo DO LAB POCT ORDERABLES - DEVICE Final Result Performing Organization Address City/[facility] Co de Phone Number [facility] [employer] [place] [address] * POCT glucose (04/06/2024 5:24 PM CDT) Glucose, POC 163 70 - 199 mg/dL Blood 04/06/2024 5:24 PM CDT 04/06/2024 5:24 PM CDT Chadd Toledo DO LAB POCT ORDERABLES - DEVICE Final Result Performing Organization Address City/[facility] Co de Phone Number [facility] [place] [address] * POCT glucose (04/06/2024 12:33 PM CDT) Glucose, POC 186 70 - 199 mg/dL Blood 04/06/2024 12:3 3 PM CDT 04/06/2024 12:33 PM CDT Chadd Toledo DO LAB POCT ORDERABLES - DEVICE Final Result Performing Organization Address [facility] Co de Phone Number [facility] [place] [address] * POCT glucose (04/06/2024 8:22 AM CDT) Glucose, POC 149 70 - 199 mg/dL Blood 04/06/2024 8:22 AM CDT 04/06/2024 8:22 AM CDT Chadd Toledo DO LAB POCT ORDERABLES - DEVICE Final Result Performing Organization Address City/[facility] Co de Phone Number [facility] [employer] [place] [place] [address] * Infection Prevention Sonya auris PCR, surveillance Axilla/Groin (04/06/2024 8:16 AM CDT) Pathologist [facility] Sonya auris DNA Not Detected Not Detected [facility] Comment: Interpretive Data Testing performed by [facility] using the [employer] MDX Sonya auris assay. ??This assay detects DNA from Sonya auris using Real-Time PCR. ??This assay is laboratory developed and is not cleared by the [facility] Food and Drug Administration. ??The performance characteristics have been verified by the [facility]. Interpretive data was last reviewed on 12/05/2023 Axilla/Groin 04/06/2024 8:16 AM CDT 04/06/2024 9:24 AM CDT Tano Menezes MD LAB MICROBIOLOGY - GENERAL OR DERABLES Final Result Performing Organization Address [facility] Co de Phone Number [facility] [employer] [place] [address] [facility] * POCT glucose (04/05/2024 10:01 PM CDT) Glucose, POC 154 70 - 199 mg/dL Blood 04/05/2024 10:0 1 PM CDT 04/05/2024 10:01 PM CDT Chadd Toledo DO LAB POCT ORDERABLES - DEVICE Final Result Performing Organization Address [facility] Co de Phone Number [facility] [employer] [place] [address] * POCT glucose (04/05/2024 5:00 PM CDT) Glucose, POC 130 70 - 199 mg/dL Blood 04/05/2024 5:00 PM CDT 04/05/2024 5:00 PM CDT Chadd Toledo DO LAB POCT ORDERABLES - DEVICE Final Result Performing Organization Address [facility] Co de Phone Number [facility] [place] [address] * (ABNORMAL) POCT glucose (04/05/2024 12:02 PM CDT) Glucose, POC 225(H) 70 - 199 mg/dL Blood 04/05/2024 12:0 2 PM CDT 04/05/2024 12:02 PM CDT Chadd Toledo DO LAB POCT ORDERABLES - DEVICE Final Result Performing Organization Address [facility] Co de Phone Number [facility] [employer] [place] [address] * POCT glucose (04/05/2024 8:22 AM CDT) Glucose, POC 154 70 - 199 mg/dL Blood 04/05/2024 8:22 AM CDT 04/05/2024 8:22 AM CDT Chadd Toledo DO LAB POCT ORDERABLES - DEVICE Final Result Performing Organization Address [facility] de Phone Number [facility] [employer] [place] [place] [address] * POCT glucose (04/05/2024 1:50 AM CDT) Glucose, POC 173 70 - 199 mg/dL Blood 04/05/2024 1:50 AM CDT 04/05/2024 1:50 AM CDT Chadd Toledo DO LAB POCT ORDERABLES - DEVICE Final Result Performing Organization Address [facility] de Phone Number [facility] [employer] [place] [place] [address] * POCT glucose (04/05/2024 1:32 AM CDT) Glucose, POC 185 70 - 199 mg/dL Blood 04/05/2024 1:32 AM CDT 04/05/2024 1:32 AM CDT Chadd Griffin Efetorres DO LAB POCT ORDERABLES - DEVICE Final Result Performing Organization Address [facility] de Phone Number [facility] [place] [address] * (ABNORMAL) POCT glucose (04/04/2024 8:04 PM CDT) Glucose, POC 231(H) 70 - 199 mg/dL Blood 04/04/2024 8:04 PM CDT 04/04/2024 8:04 PM CDT Chadd Griffin Efetorres LAB POCT ORDERABLES - DEVICE Final Result Performing Organization Address [facility] de Phone Number [facility] [place] [address] * (ABNORMAL) POCT glucose (04/04/2024 5:22 PM CDT) Glucose, POC 212(H) 70 - 199 mg/dL Comment:Glu2: RN/MD Notified Glucose comment 1 Glu2: RN/MD Notified [facility] Blood 04/04/2024 5:22 PM CDT 04/04/2024 5:22 PM CDT Chadd Griffin Efetorres DO LAB POCT ORDERABLES - DEVICE Final Result Performing Organization Address [facility] [place] [address] * POCT glucose (04/04/2024 11:36 AM CDT) Glucose, POC 185 70 - 199 mg/dL Blood 04/04/2024 11:3 6 AM CDT 04/04/2024 11:36 AM CDT us Chadd Toledo DO LAB POCT ORDERABLES - DEVICE Final Result Performing Organization Address City/[facility]/ZIP Co de Phone Number [facility] [employer] [place] [place] [address] * POCT glucose (04/04/2024 7:51 AM CDT) Glucose, POC 178 70 - 199 mg/dL Blood 04/04/2024 7:51 AM CDT 04/04/2024 7:51 AM CDT us Chadd Toledo DO LAB POCT ORDERABLES - DEVICE Final Result Performing Organization Address [facility] Co de Phone Number [facility] [place] [address] * POCT glucose (04/03/2024 11:04 PM CDT) Glucose, POC 196 70 - 199 mg/dL Blood 04/03/2024 11:0 4 PM CDT 04/03/2024 11:04 PM CDT Chadd Toledo DO LAB POCT ORDERABLES - DEVICE Final Result Performing Organization Address City/[facility] Co de Phone Number [facility] [employer] [place] [place] [address] * POCT glucose (04/03/2024 8:30 PM CDT) Glucose, POC 176 70 - 199 mg/dL Blood 04/03/2024 8:30 PM CDT 04/03/2024 8:30 PM CDT us Chadd Toledo DO LAB POCT ORDERABLES - DEVICE Final Result Performing Organization Address City/[facility]/ZIP Co de Phone Number [facility] [employer] [place] [address] * POCT glucose (04/03/2024 7:11 PM CDT) Glucose, POC 120 70 - 199 mg/dL Blood 04/03/2024 7:11 PM CDT 04/03/2024 7:11 PM CDT Chaddtorres Griffin Efetorres DO LAB POCT ORDERABLES - DEVICE Final Result Performing Organization Address [facility] Co de Phone Number [facility] [place] [address] * POCT glucose (04/03/2024 5:27 PM CDT) Glucose, POC 83 70 - 199 mg/dL Blood 04/03/2024 5:27 PM CDT 04/03/2024 5:27 PM CDT Chadd Griffin Efetorres DO LAB POCT ORDERABLES - DEVICE Final Result Performing Organization Address [facility] de Phone Number [facility] [place] [address] * (ABNORMAL) POCT glucose (04/03/2024 11:31 AM CDT) [facility] Glucose, POC 205(H) 70 - 199 mg/dL Comment:Glu2: RN/MD Notified Glucose comment 1 Glu2: RN/MD Notified [facility] Blood 04/03/2024 11:3 1 AM CDT 04/03/2024 11:31 AM CDT Chadd Elias Tre DO LAB POCT ORDERABLES - DEVICE Final Result Performing Organization Address [facility] Co de Phone Number [facility] [place] [address] * (ABNORMAL) POCT glucose (04/03/2024 7:51 AM CDT) [facility] Glucose, POC 202(H) 70 - 199 mg/dL Comment:Glu2: RN/MD Notified Glucose comment 1 Glu2: RN/MD Notified [facility] Blood 04/03/2024 7:51 AM CDT 04/03/2024 7:51 AM CDT Chadd Toledo DO LAB POCT ORDERABLES - DEVICE Final Result Performing Organization Address [facility] Co de Phone Number [facility] Department [place] [address] * Infection Prevention Sonya auris PCR, surveillance Axilla/Groin (04/03/2024 6:54 AM CDT) [facility] Sonya auris DNA Not Detected Not Detected [facility] Comment: Interpretive Data Testing performed by [facility] using the [employer] MDX Sonya auris assay. ??This assay detects DNA from Sonya auris using Real-Time PCR. ??This assay is laboratory developed and is not cleared by the [facility] Food and Drug Administration. ??The performance characteristics have been verified by the [facility]. Interpretive data was last reviewed on 12/05/2023 Axilla/Groin 04/03/2024 6:54 AM CDT 04/03/2024 7:34 AM CDT Francois Estrada MD LAB MICROBIOLOGY - GENERAL OR DERABLES Final Result Performing Organization Address [facility] Co de Phone Number [facility] Department [place] [address] [facility] * POCT glucose (04/03/2024 2:04 AM CDT) [facility] Glucose, POC 158 70 - 199 mg/dL Blood 04/03/2024 2:04 AM CDT 04/03/2024 2:04 AM CDT us Chadd Toledo DO LAB POCT ORDERABLES - DEVICE Final Result Performing Organization Address [facility] Co de Phone Number [facility] [place] [address] * POCT glucose (04/02/2024 8:23 PM CDT) Glucose, POC 162 70 - 199 mg/dL Comment:Glu2: RN/MD Notified Glucose comment 1 Glu2: RN/MD Notified [facility] Blood 04/02/2024 8:23 PM CDT 04/02/2024 8:23 PM CDT us Chadd Toledo DO LAB POCT ORDERABLES - DEVICE Final Result Performing Organization Address [facility] Co de Phone Number [facility] [place] [address] * POCT glucose (04/02/2024 4:37 PM CDT) Glucose, POC 171 70 - 199 mg/dL Blood 04/02/2024 4:37 PM CDT 04/02/2024 4:37 PM CDT us Chadd Toledo DO LAB POCT ORDERABLES - DEVICE Final Result Performing Organization Address [facility] Co de Phone Number [facility] [place] [address] * POCT glucose (04/02/2024 12:24 PM CDT) Glucose, POC 160 70 - 199 mg/dL Blood 04/02/2024 12:2 4 PM CDT 04/02/2024 12:24 PM CDT us Chadd Toledo DO LAB POCT ORDERABLES - DEVICE Final Result Performing Organization Address [facility] [place] [address] * POCT glucose (04/02/2024 8:20 AM CDT) Glucose, POC 179 70 - 199 mg/dL Blood 04/02/2024 8:20 AM CDT 04/02/2024 8:20 AM CDT us Chadd Toledo DO LAB POCT ORDERABLES - DEVICE Final Result Performing Organization Address City/[facility] [place] [address] * POCT glucose (04/02/2024 2:36 AM CDT) Glucose, POC 148 70 - 199 mg/dL Blood 04/02/2024 2:36 AM CDT 04/02/2024 2:36 AM CDT us Chadd Toledo DO LAB POCT ORDERABLES - DEVICE Final Result Performing Organization Address City/[facility] [place] [address] * POCT glucose (04/01/2024 9:32 PM CDT) Glucose, POC 110 70 - 199 mg/dL Blood 04/01/2024 9:32 PM CDT 04/01/2024 9:32 PM CDT Chadd Toledo DO LAB POCT ORDERABLES - DEVICE Final Result Performing Organization Address City/[facility]/ZIP [place] [address] * POCT glucose (04/01/2024 4:28 PM CDT) Glucose, POC 128 70 - 199 mg/dL Blood 04/01/2024 4:28 PM CDT 04/01/2024 4:28 PM CDT Chadd Elias Tre DO LAB POCT ORDERABLES - DEVICE Final Result Performing Organization Address [facility] de Phone Number [facility] [employer] [place] [place] [address] * (ABNORMAL) POCT glucose (04/01/2024 12:18 PM CDT) Glucose, POC 216(H) 70 - 199 mg/dL Blood 04/01/2024 12:1 8 PM CDT 04/01/2024 12:18 PM CDT Chadd Toledo DO LAB POCT ORDERABLES - DEVICE Final Result Performing Organization Address [facility] de Phone Number [facility] [employer] [place] [place] [address] * POCT glucose (04/01/2024 8:01 AM CDT) Glucose, POC 176 70 - 199 mg/dL Blood 04/01/2024 8:01 AM CDT 04/01/2024 8:01 AM CDT Chadd Toledo DO LAB POCT ORDERABLES - DEVICE Final Result Performing Organization Address [facility] [place] [address] * POCT glucose (04/01/2024 2:06 AM CDT) Glucose, POC 178 70 - 199 mg/dL Blood 04/01/2024 2:06 AM CDT 04/01/2024 2:06 AM CDT Chadd Toledo DO LAB POCT ORDERABLES - DEVICE Final Result Performing Organization Address [facility] [place] [address] * POCT glucose (03/31/2024 8:48 PM CDT) Glucose, POC 128 70 - 199 mg/dL Blood 03/31/2024 8:48 PM CDT 03/31/2024 8:48 PM CDT Chadd Elias Tre DO LAB POCT ORDERABLES - DEVICE Final Result Performing Organization Address [facility] [place] [address] * POCT glucose (03/31/2024 4:17 PM CDT) Glucose, POC 139 70 - 199 mg/dL Blood 03/31/2024 4:17 PM CDT 03/31/2024 4:17 PM CDT Chadd Elias Tre DO LAB POCT ORDERABLES - DEVICE Final Result Performing Organization Address [facility] Co de Phone Number [facility] [employer] [place] [place] [address] * POCT glucose (03/31/2024 12:25 PM CDT) Glucose, POC 169 70 - 199 mg/dL Blood 03/31/2024 12:2 5 PM CDT 03/31/2024 12:25 PM CDT Chadd Elias Tre DO LAB POCT ORDERABLES - DEVICE Final Result Performing Organization Address City/[facility] Co de Phone Number [facility] [employer] [place] [place] [address] * POCT glucose (03/31/2024 9:00 AM CDT) Glucose, POC 179 70 - 199 mg/dL Blood 03/31/2024 9:00 AM CDT 03/31/2024 9:00 AM CDT Chadd Toledo DO LAB POCT ORDERABLES - DEVICE Final Result Performing Organization Address [facility] de Phone Number [facility] [place] [address] * Infection Prevention Sonya auris PCR, surveillance Axilla/Groin (03/31/2024 6:44 AM CDT) [facility] Sonya auris DNA Not Detected Not Detected [facility] Comment: Interpretive Data Testing performed by [facility] using the [employer] MDX Sonya auris assay. ??This assay detects DNA from Sonya auris using Real-Time PCR. ??This assay is laboratory developed and is not cleared by the [facility] Food and Drug Administration. ??The performance characteristics have been verified by the [facility]. Interpretive data was last reviewed on 12/05/2023 Axilla/Groin 03/31/2024 6:44 AM CDT 03/31/2024 7:34 AM CDT Francois Estrada MD LAB MICROBIOLOGY - GENERAL OR DERABLES Final Result Performing Organization Address [facility] de Phone Number [facility] Department [place] [address] [facility] * POCT glucose (03/31/2024 1:48 AM CDT) Glucose, POC 179 70 - 199 mg/dL Blood 03/31/2024 1:48 AM CDT 03/31/2024 1:48 AM CDT Chadd Toledo DO LAB POCT ORDERABLES - DEVICE Final Result Performing Organization Address [facility] Co de Phone Number [facility] [place] [address] * POCT glucose (03/30/2024 8:22 PM CDT) Glucose, POC 119 70 - 199 mg/dL Blood 03/30/2024 8:22 PM CDT 03/30/2024 8:22 PM CDT us Chadd Toledo DO LAB POCT ORDERABLES - DEVICE Final Result Performing Organization Address [facility] Co de Phone Number [facility] [place] [address] * POCT glucose (03/30/2024 5:54 PM CDT) Glucose, POC 153 70 - 199 mg/dL Blood 03/30/2024 5:54 PM CDT 03/30/2024 5:54 PM CDT Chadd Toledo DO LAB POCT ORDERABLES - DEVICE Final Result Performing Organization Address [facility] de Phone Number [facility] Department [place] [address] * (ABNORMAL) POCT glucose (03/30/2024 12:15 PM CDT) Glucose, POC 213(H) 70 - 199 mg/dL Comment:Glu2: RN/MD Notified Glucose comment 1 Glu2: RN/MD Notified [facility] Blood 03/30/2024 12:1 5 PM CDT 03/30/2024 12:15 PM CDT Chadd Toledo DO LAB POCT ORDERABLES - DEVICE Final Result Performing Organization Address [facility] Co de Phone Number [facility] [place] [address] * POCT glucose (03/30/2024 8:04 AM CDT) Glucose, POC 145 70 - 199 mg/dL Blood 03/30/2024 8:04 AM CDT 03/30/2024 8:04 AM CDT us Chadd Toledo DO LAB POCT ORDERABLES - DEVICE Final Result Performing Organization Address [facility]/ZIP [place] [address] * (ABNORMAL) POCT glucose (03/30/2024 3:03 AM CDT) Glucose, POC 200(H) 70 - 199 mg/dL Blood 03/30/2024 3:03 AM CDT 03/30/2024 3:03 AM CDT Chadd Toledo DO LAB POCT ORDERABLES - DEVICE Final Result Performing Organization Address [facility]/ZIP Co de Phone Number [employer] [facility] [place] [address] * POCT glucose (03/29/2024 8:48 PM CDT) Glucose, POC 142 70 - 199 mg/dL Blood 03/29/2024 8:48 PM CDT 03/29/2024 8:48 PM CDT Chadd Toledo DO LAB POCT ORDERABLES - DEVICE Final Result Performing Organization Address [facility]/ZIP [place] [address] * (ABNORMAL) POCT glucose (03/29/2024 4:48 PM CDT) Glucose, POC 226(H) 70 - 199 mg/dL Comment:Glu2: RN/ Notified Glucose comment 1 Glu2: RN/ Notified [facility] Blood 03/29/2024 4:48 PM CDT 03/29/2024 4:48 PM CDT Chadd Toledo DO LAB POCT ORDERABLES - DEVICE Final Result Performing Organization Address [facility] de Phone Number [facility] of [employer] [place] [place] [address] * POCT glucose (03/29/2024 11:41 AM CDT) Glucose, POC 161 70 - 199 mg/dL Blood 03/29/2024 11:4 1 AM CDT 03/29/2024 11:41 AM CDT Chadd Elias Tre DO LAB POCT ORDERABLES - DEVICE Final Result Performing Organization Address [facility] de Phone Number [facility] [employer] [place] [place] [address] * (ABNORMAL) POCT glucose (03/29/2024 7:45 AM CDT) Glucose, POC 250(H) 70 - 199 mg/dL Comment:Glu2: RN/ Notified Glucose comment 1 Glu2: RN/ Notified [facility] Blood 03/29/2024 7:45 AM CDT 03/29/2024 7:45 AM CDT Chadd Elias Tre DO LAB POCT ORDERABLES - DEVICE Final Result Performing Organization Address [facility] [place] [address] * POCT glucose (03/29/2024 2:45 AM CDT) Glucose, POC 175 70 - 199 mg/dL Blood 03/29/2024 2:45 AM CDT 03/29/2024 2:45 AM CDT Chadd Toledo DO LAB POCT ORDERABLES - DEVICE Final Result Performing Organization Address [facility] de Phone Number [facility] [employer] [place] [place] [address] * (ABNORMAL) POCT glucose (03/28/2024 9:03 PM CDT) Glucose, POC 333(H) 70 - 199 mg/dL Blood 03/28/2024 9:03 PM CDT 03/28/2024 9:03 PM CDT Chadd Toledo DO LAB POCT ORDERABLES - DEVICE Final Result Performing Organization Address [facility] de Phone Number [facility] [employer] [place] [place] [address] * POCT glucose (03/28/2024 5:10 PM CDT) Glucose, POC 119 70 - 199 mg/dL Blood 03/28/2024 5:10 PM CDT 03/28/2024 5:10 PM CDT Chadd Toledo DO LAB POCT ORDERABLES - DEVICE Final Result Performing Organization Address [facility] [place] [address] * POCT glucose (03/28/2024 12:03 PM CDT) Glucose, POC 171 70 - 199 mg/dL Blood 03/28/2024 12:0 3 PM CDT 03/28/2024 12:03 PM CDT Chadd Elias Craft DO LAB POCT ORDERABLES - DEVICE Final Result Performing Organization Address City/[facility] Co de Phone Number [employer] [facility] [employer] [place] [place] [address] * (ABNORMAL) POCT glucose (03/28/2024 8:04 AM CDT) Glucose, POC 201(H) 70 - 199 mg/dL Blood 03/28/2024 8:04 AM CDT 03/28/2024 8:04 AM CDT Chadd Toledo DO LAB POCT ORDERABLES - DEVICE Final Result Performing Organization Address [facility] Co de Phone Number [employer] [facility] [employer] [place] [place] [address] * (ABNORMAL) POCT glucose (03/27/2024 8:03 PM CDT) Glucose, POC 245(H) 70 - 199 mg/dL Blood 03/27/2024 8:03 PM CDT 03/27/2024 8:03 PM CDT Chadd Toledo DO LAB POCT ORDERABLES - DEVICE Final Result Performing Organization Address [facility] Co de Phone Number [facility] of [employer] [place] [place] [address] * POCT glucose (03/27/2024 4:14 PM CDT) Glucose, POC 173 70 - 199 mg/dL Blood 03/27/2024 4:14 PM CDT 03/27/2024 4:14 PM CDT Chadd Toledo DO LAB POCT ORDERABLES - DEVICE Final Result Performing Organization Address City/[facility]/ZIP Co de Phone Number [employer] [facility] [employer] [place] [place] [address] * POCT glucose (03/27/2024 12:21 PM CDT) Glucose, POC 106 70 - 199 mg/dL Blood 03/27/2024 12:2 1 PM CDT 03/27/2024 12:21 PM CDT Chadd Toledo DO LAB POCT ORDERABLES - DEVICE Final Result Performing Organization Address [facility] Co de Phone Number [facility] of [employer] [place] [place] [address] * (ABNORMAL) POCT glucose (03/27/2024 7:48 AM CDT) Glucose, POC 229(H) 70 - 199 mg/dL Blood 03/27/2024 7:48 AM CDT 03/27/2024 7:48 AM CDT Chadd Toledo DO LAB POCT ORDERABLES - DEVICE Final Result Performing Organization Address [facility] Co de Phone Number [facility] [employer] [place] [place] [address] * (ABNORMAL) POCT glucose (03/26/2024 8:55 PM CDT) Glucose, POC 211(H) 70 - 199 mg/dL Blood 03/26/2024 8:55 PM CDT 03/26/2024 8:55 PM CDT Chadd Toledo DO LAB POCT ORDERABLES - DEVICE Final Result Performing Organization Address [facility] Co de Phone Number [facility] [employer] [place] [place] [address] * POCT glucose (03/26/2024 5:31 PM CDT) Glucose, POC 138 70 - 199 mg/dL Blood 03/26/2024 5:31 PM CDT 03/26/2024 5:31 PM CDT Chadd Toledo DO LAB POCT ORDERABLES - DEVICE Final Result Performing Organization Address [facility] de Phone Number [facility] [employer] [place] [place] [address] * POCT glucose (03/26/2024 11:43 AM CDT) Glucose, POC 186 70 - 199 mg/dL Blood 03/26/2024 11:4 3 AM CDT 03/26/2024 11:43 AM CDT Chadd Toledo DO LAB POCT ORDERABLES - DEVICE Final Result Performing Organization Address [facility] de Phone Number [facility] of [employer] [place] [place] [address] * POCT glucose (03/26/2024 8:00 AM CDT) Glucose, POC 183 70 - 199 mg/dL Blood 03/26/2024 8:00 AM CDT 03/26/2024 8:00 AM CDT Chadd Toledo DO LAB POCT ORDERABLES - DEVICE Final Result Performing Organization Address [facility] de Phone Number [facility] [employer] [place] [place] [address] * (ABNORMAL) POCT glucose (03/25/2024 7:53 PM CDT) Glucose, POC 206(H) 70 - 199 mg/dL Blood 03/25/2024 7:53 PM CDT 03/25/2024 7:53 PM CDT Chadd Toledo DO LAB POCT ORDERABLES - DEVICE Final Result Performing Organization Address [facility] Co de Phone Number [facility] [place] [address] * POCT glucose (03/25/2024 4:53 PM CDT) Glucose, POC 143 70 - 199 mg/dL Blood 03/25/2024 4:53 PM CDT 03/25/2024 4:53 PM CDT Chadd Toledo DO LAB POCT ORDERABLES - DEVICE Final Result Performing Organization Address [facility] [place] [address] * POCT glucose (03/25/2024 11:50 AM CDT) Glucose, POC 178 70 - 199 mg/dL Blood 03/25/2024 11:5 0 AM CDT 03/25/2024 11:50 AM CDT Chadd Toledo DO LAB POCT ORDERABLES - DEVICE Final Result Performing Organization Address [facility] Co de Phone Number [facility] of [employer] [place] [place] [address] * (ABNORMAL) POCT glucose (03/25/2024 7:54 AM CDT) Glucose, POC 269(H) 70 - 199 mg/dL Blood 03/25/2024 7:54 AM CDT 03/25/2024 7:54 AM CDT Chadd Toledo DO LAB POCT ORDERABLES - DEVICE Final Result Performing Organization Address [facility] Co de Phone Number [facility] [place] [address] * (ABNORMAL) POCT glucose (03/24/2024 8:53 PM CDT) Glucose, POC 304(H) 70 - 199 mg/dL Blood 03/24/2024 8:53 PM CDT 03/24/2024 8:53 PM CDT Chadd Toledo DO LAB POCT ORDERABLES - DEVICE Final Result Performing Organization Address [facility] Co de Phone Number [facility] [place] [address] * (ABNORMAL) POCT glucose (03/24/2024 5:03 PM CDT) Glucose, POC 249(H) 70 - 199 mg/dL Blood 03/24/2024 5:03 PM CDT 03/24/2024 5:03 PM CDT Chadd Toledo LAB POCT ORDERABLES - DEVICE Final Result Performing Organization Address [facility] de Phone Number [facility] of [employer] [place] [place] [address] * (ABNORMAL) POCT glucose (03/24/2024 11:52 AM CDT) Glucose, POC 218(H) 70 - 199 mg/dL Blood 03/24/2024 11:5 2 AM CDT 03/24/2024 11:52 AM CDT Chadd Toledo DO LAB POCT ORDERABLES - DEVICE Final Result Performing Organization Address [facility] Co de Phone Number [facility] [employer] [place] [place] [address] * (ABNORMAL) POCT glucose (03/24/2024 8:29 AM CDT) Glucose, POC 251(H) 70 - 199 mg/dL Blood 03/24/2024 8:29 AM CDT 03/24/2024 8:29 AM CDT Chadd Toledo DO LAB POCT ORDERABLES - DEVICE Final Result Performing Organization Address [facility] Co de Phone Number [facility] [place] [address] * (ABNORMAL) POCT glucose (03/23/2024 9:17 PM CDT) Glucose, POC 203(H) 70 - 199 mg/dL Blood 03/23/2024 9:17 PM CDT 03/23/2024 9:17 PM CDT Chadd Toledo DO LAB POCT ORDERABLES - DEVICE Final Result Performing Organization Address [facility] de Phone Number [facility] [place] [address] * (ABNORMAL) POCT glucose (03/23/2024 7:46 PM CDT) Glucose, POC 215(H) 70 - 199 mg/dL Blood 03/23/2024 7:46 PM CDT 03/23/2024 7:46 PM CDT Result [facility] Chadd Toledo DO LAB POCT ORDERABLES - DEVICE Final Result Performing Organization Address [facility] de Phone Number [facility] [place] [address] * (ABNORMAL) POCT glucose (03/23/2024 4:51 PM CDT) Glucose, POC 245(H) 70 - 199 mg/dL Blood 03/23/2024 4:51 PM CDT 03/23/2024 4:51 PM CDT Chadd Toledo DO LAB POCT ORDERABLES - DEVICE Final Result Performing Organization Address [facility] Co de Phone Number [employer] [facility] [employer] [place] [place] [address] * (ABNORMAL) POCT glucose (03/23/2024 11:00 AM CDT) Glucose, POC 232(H) 70 - 199 mg/dL Blood 03/23/2024 11:0 0 AM CDT 03/23/2024 11:00 AM CDT Chadd Toledo DO LAB POCT ORDERABLES - DEVICE Final Result Performing Organization Address [facility] Co de Phone Number [employer] [facility] [employer] [place] [place] [address] * (ABNORMAL) POCT glucose (03/23/2024 8:24 AM CDT) Glucose, POC 297(H) 70 - 199 mg/dL Blood 03/23/2024 8:24 AM CDT 03/23/2024 8:24 AM CDT Chadd Toledo DO LAB POCT ORDERABLES - DEVICE Final Result Performing Organization Address [facility] Co de Phone Number [facility] [employer] [place] [place] [address] * (ABNORMAL) POCT glucose (03/22/2024 7:48 PM CDT) Glucose, POC 290(H) 70 - 199 mg/dL Blood 03/22/2024 7:48 PM CDT 03/22/2024 7:48 PM CDT Chadd Toledo DO LAB POCT ORDERABLES - DEVICE Final Result Performing Organization Address [facility] Co de Phone Number [employer] [facility] [place] [address] * (ABNORMAL) POCT glucose (03/22/2024 4:50 PM CDT) Glucose, POC 248(H) 70 - 199 mg/dL Blood 03/22/2024 4:50 PM CDT 03/22/2024 4:50 PM CDT Chadd Toledo DO LAB POCT ORDERABLES - DEVICE Final Result Performing Organization Address [facility] [place] [address] * (ABNORMAL) POCT glucose (03/22/2024 12:10 PM CDT) Glucose, POC 204(H) 70 - 199 mg/dL Blood 03/22/2024 12:1 0 PM CDT 03/22/2024 12:10 PM CDT Chadd Toledo DO LAB POCT ORDERABLES - DEVICE Final Result Performing Organization Address [facility] [place] [address] * (ABNORMAL) POCT glucose (03/22/2024 8:17 AM CDT) Glucose, POC 218(H) 70 - 199 mg/dL Blood 03/22/2024 8:17 AM CDT 03/22/2024 8:17 AM CDT Chadd Toledo DO LAB POCT ORDERABLES - DEVICE Final Result Performing Organization Address City/[facility] Co de Phone Number AJIT [facility] [place] [address] * POCT glucose (03/21/2024 8:44 PM CDT) Glucose, POC 175 70 - 199 mg/dL Blood 03/21/2024 8:44 PM CDT 03/21/2024 8:44 PM CDT Chadd Toledo DO LAB POCT ORDERABLES - DEVICE Final Result Performing Organization Address [facility] de Phone Number [facility] [employer] [place] [place] [address] * POCT glucose (03/21/2024 5:01 PM CDT) Glucose, POC 172 70 - 199 mg/dL Blood 03/21/2024 5:01 PM CDT 03/21/2024 5:01 PM CDT Chadd Toledo DO LAB POCT ORDERABLES - DEVICE Final Result Performing Organization Address [facility] de Phone Number [facility] [employer] [place] [place] [address] * (ABNORMAL) POCT glucose (03/21/2024 11:33 AM CDT) Glucose, POC 221(H) 70 - 199 mg/dL Blood 03/21/2024 11:3 3 AM CDT 03/21/2024 11:33 AM CDT Chadd Toledo DO LAB POCT ORDERABLES - DEVICE Final Result Performing Organization Address [facility] de Phone Number [facility] [employer] [place] [place] [address] * (ABNORMAL) POCT glucose (03/21/2024 7:54 AM CDT) Glucose, POC 208(H) 70 - 199 mg/dL Blood 03/21/2024 7:54 AM CDT 03/21/2024 7:54 AM CDT Chaddtorres Griffin Efetorres DO LAB POCT ORDERABLES - DEVICE Final Result Performing Organization Address [facility] Co de Phone Number [facility] [place] [address] * (ABNORMAL) POCT glucose (03/20/2024 8:02 PM CDT) Glucose, POC 212(H) 70 - 199 mg/dL Blood 03/20/2024 8:02 PM CDT 03/20/2024 8:02 PM CDT Chaddtorres Griffin Efetorres DO LAB POCT ORDERABLES - DEVICE Final Result Performing Organization Address [facility] de Phone Number JAIT [facility] [place] [address] * POCT glucose (03/20/2024 4:48 PM CDT) Glucose, POC 156 70 - 199 mg/dL Blood 03/20/2024 4:48 PM CDT 03/20/2024 4:48 PM CDT Chadd Elias Tre DO LAB POCT ORDERABLES - DEVICE Final Result Performing Organization Address [facility] de Phone Number AJIT [facility] Department [place] [address] * (ABNORMAL) POCT glucose (03/20/2024 12:11 PM CDT) Glucose, POC 223(H) 70 - 199 mg/dL Blood 03/20/2024 12:1 1 PM CDT 03/20/2024 12:11 PM CDT Chadd Toledo DO LAB POCT ORDERABLES - DEVICE Final Result Performing Organization Address [facility] Co de Phone Number AJIT [facility] Department [place] [address] * POCT glucose (03/20/2024 7:21 AM CDT) Glucose, POC 195 70 - 199 mg/dL Blood 03/20/2024 7:21 AM CDT 03/20/2024 7:21 AM CDT Chadd Toledo DO LAB POCT ORDERABLES - DEVICE Final Result AJIT [facility] Department [place] [address] * eGFR (03/19/2024 11:12 PM CDT) eGFR >90 >=60 mL/min/1. 73 m2 [...] interpretive data was last reviewed 2021. Blood 03/19/2024 11:1 2 PM CDT 03/20/2024 12:05 AM CDT Chadd Toledo DO LAB BLOOD ORDERABLES Final Result AJIT [facility] Department [place] [address] * (ABNORMAL) CBC without differential (03/19/2024 11:12 PM CDT) WBC 4.9 3.8 - 9.9 K/cumm Hgb 9.8(L) 11.9 - 15.5 g/dL [facility] Hct 29.7(L) 35.6 - 45.5 % [facility] Plt 173 150 - 400 K/cumm [facility] MPV 8.7(L) 9.1 - 12.3 fL [facility] RBC 3.46(L) 3.90 - 5.20 M/cumm [facility] MCV 85.8 81.3 - 96.4 fL [facility] MCH 28.3 27.1 - 33.3 pg [facility] MCHC 33.0 32.3 - 35.7 g/dL [facility] RDW CV 15.9(H) 11.1 - 14.9 % [facility] RDW SD 47.0 35.7 - 48.1 fL [facility] NRBC abs 0.00 0.00 - 0.01 K/cumm [facility] Blood 03/19/2024 11:1 2 PM CDT 03/20/2024 12:05 AM CDT Chadd Toledo DO LAB BLOOD ORDERABLES Final Result [facility] Department [place] [address] * Phosphorus (03/19/2024 11:12 PM CDT) Phosphorus, pl 3.4 2.3 - 4.5 mg/dL Blood 03/19/2024 11:1 2 PM CDT 03/20/2024 12:05 AM CDT Chadd Toledo DO LAB BLOOD ORDERABLES Final Result Performing Organization Address City/State/[facility] Co de Phone Number [facility] [place] [address] * Magnesium (03/19/2024 11:12 PM CDT) Pathologist [facility] Magnesium 1.8 1.4 - 2.5 mg/dL Blood 03/19/2024 11:1 2 PM CDT 03/20/2024 12:05 AM CDT Chadd Toledo DO LAB BLOOD ORDERABLES Final Result Performing Organization Address [facility] de Phone Number [facility] [place] [address] * (ABNORMAL) Basic metabolic panel (03/19/2024 11:12 PM CDT) Pathologist [facility] Sodium 138 135 - 145 mmol/L Potassium, pl 3.8 3.3 - 4.9 mmol/L [facility] Chloride 102 97 - 110 mmol/L [facility] CO2 28 22 - 32 mmol/L [facility] Anion gap 8 2 - 15 mmol/L [facility] BUN 15 6 - 25 mg/dL [facility] Creatinine 0.71 0.60 - 1.10 mg/dL [facility] Glucose 201(H) 70 - 199 mg/dL [facility] Comment: Interpretive Data Fasting glucose >/= 126 [...] classification and Diagnosis of Diabetes Diabetes Care 202; 46: S19-S40. Current interpretive data was last revised 2022. Calcium 8.7 8.5 - 10.3 mg/dL [facility] Blood 03/19/2024 11:1 2 PM CDT 03/20/2024 12:05 AM CDT Chadd Toledo DO LAB BLOOD ORDERABLES Final Result Performing Organization Address [facility] Co de Phone Number [facility] [employer] [place] [address] * POCT glucose (03/19/2024 7:45 PM CDT) Glucose, POC 146 70 - 199 mg/dL Blood 03/19/2024 7:45 PM CDT 03/19/2024 7:45 PM CDT Chadd Toledo DO LAB POCT ORDERABLES - DEVICE Final Result Performing Organization Address [facility] de Phone Number [facility] [employer] [place] [place] [address] * POCT glucose (03/19/2024 4:53 PM CDT) Glucose, POC 151 70 - 199 mg/dL Blood 03/19/2024 4:53 PM CDT 03/19/2024 4:53 PM CDT Chadd Toledo DO LAB POCT ORDERABLES - DEVICE Final Result Performing Organization Address [facility] de Phone Number [facility] [employer] [place] [place] [address] * (ABNORMAL) POCT glucose (03/19/2024 11:59 AM CDT) Glucose, POC 204(H) 70 - 199 mg/dL Blood 03/19/2024 11:5 9 AM CDT 03/19/2024 11:59 AM CDT Chaddtorres Toledo DO LAB POCT ORDERABLES - DEVICE Final Result Performing Organization Address City/[facility] Co de Phone Number [facility] [employer] [place] [address] * (ABNORMAL) POCT glucose (03/19/2024 7:42 AM CDT) Glucose, POC 229(H) 70 - 199 mg/dL Blood 03/19/2024 7:42 AM CDT 03/19/2024 7:42 AM CDT Chadd Toledo DO LAB POCT ORDERABLES - DEVICE Final Result Performing Organization Address [facility] de Phone Number [facility] [place] [address] * eGFR (03/18/2024 10:07 PM CDT) eGFR >90 >=60 mL/min/1. 73 m2 [...] interpretive data was last reviewed 2021. Blood 03/18/2024 10:0 7 PM CDT 03/18/2024 10:39 PM CDT us Chadd Toledo DO LAB BLOOD ORDERABLES Final Result [facility] Department [place] [address] * (ABNORMAL) CBC without differential (03/18/2024 10:07 PM CDT) WBC 4.3 3.8 - 9.9 K/cumm Hgb 9.9(L) 11.9 - 15.5 g/dL [facility] Hct 30.2(L) 35.6 - 45.5 % [facility] Plt 147(L) 150 - 400 K/cumm [facility] MPV 8.3(L) 9.1 - 12.3 fL [facility] RBC 3.54(L) 3.90 - 5.20 M/cumm [facility] MCV 85.3 81.3 - 96.4 fL [facility] MCH 28.0 27.1 - 33.3 pg [facility] MCHC 32.8 32.3 - 35.7 g/dL [facility] RDW CV 15.7(H) 11.1 - 14.9 % [facility] RDW SD 46.8 35.7 - 48.1 fL [facility] NRBC abs 0.00 0.00 - 0.01 K/cumm [facility] Blood 03/18/2024 10:0 7 PM CDT 03/18/2024 10:38 PM CDT us Chadd Toledo DO LAB BLOOD ORDERABLES Final Result [facility] [place] [address] * Phosphorus (03/18/2024 10:07 PM CDT) [facility] Phosphorus, pl 2.9 2.3 - 4.5 mg/dL Blood 03/18/2024 10:0 7 PM CDT 03/18/2024 10:39 PM CDT Chadd Toledo DO LAB BLOOD ORDERABLES Final Result Performing Organization Address [facility] Co de Phone Number [facility] [place] [address] * Magnesium (03/18/2024 10:07 PM CDT) [facility] Magnesium 1.8 1.4 - 2.5 mg/dL Blood 03/18/2024 10:0 7 PM CDT 03/18/2024 10:39 PM CDT Chadd Toledo DO LAB BLOOD ORDERABLES Final Result Performing Organization Address [facility] Co de Phone Number [facility] [place] [address] * (ABNORMAL) Basic metabolic panel (03/18/2024 10:07 PM CDT) [facility] Sodium 137 135 - 145 mmol/L Potassium, pl 3.9 3.3 - 4.9 mmol/L [facility] Chloride 100 97 - 110 mmol/L [facility] CO2 29 22 - 32 mmol/L [facility] Anion gap 8 2 - 15 mmol/L [facility] BUN 12 6 - 25 mg/dL [facility] Creatinine 0.64 0.60 - 1.10 mg/dL [facility] Glucose 210(H) 70 - 199 mg/dL [facility] Comment: Interpretive Data Fasting glucose >/= 126 [...] 2022. Calcium 8.9 8.5 - 10.3 mg/dL [facility] Blood 03/18/2024 10:0 7 PM CDT 03/18/2024 10:39 PM CDT Chadd Toledo DO LAB BLOOD ORDERABLES Final Result Performing Organization Address [facility] Co de Phone Number [facility] Department [place] [address] * (ABNORMAL) POCT glucose (03/18/2024 8:40 PM CDT) Glucose, POC 236(H) 70 - 199 mg/dL Blood 03/18/2024 8:40 PM CDT 03/18/2024 8:40 PM CDT Chadd oTledo DO LAB POCT ORDERABLES - DEVICE Final Result Performing Organization Address [facility] Co de Phone Number [facility] Department of [employer] [place] [place] [address] * POCT glucose (03/18/2024 4:49 PM CDT) Glucose, POC 146 70 - 199 mg/dL Blood 03/18/2024 4:49 PM CDT 03/18/2024 4:49 PM CDT Chadd Toledo DO LAB POCT ORDERABLES - DEVICE Final Result Performing Organization Address [facility] de Phone Number [facility] Department [place] [address] * (ABNORMAL) POCT glucose (03/18/2024 11:55 AM CDT) Glucose, POC 247(H) 70 - 199 mg/dL Blood 03/18/2024 11:5 5 AM CDT 03/18/2024 11:55 AM CDT us Chadd Toledo DO LAB POCT ORDERABLES - DEVICE Final Result Performing Organization Address City/[facility]/ZIP Co de Phone Number [facility] [place] [address] * Osmolality, blood (03/18/2024 9:52 AM CDT) Pathologist [facility] Osmo 296 275 - 300 mOsm/kg Blood 03/18/2024 9:52 AM CDT 03/18/2024 10:02 AM CDT us Xochitl Esquivel [employer] LAB BLOOD ORDERABLES F inal Result Performing Organization Address [facility] Co de Phone Number [facility] [place] [address] * Sodium, urine, random (03/18/2024 9:52 AM CDT) Pathologist [facility] Sodium, ur 54 mmol/L Comment: Interpretive Data No reference range established. Current interpretive data was last revised 2018. Urine 03/18/2024 9:52 AM CDT 03/18/2024 10:02 AM CDT us Xochitl Esquivel [employer] LAB URINE ORDERABLES F inal Result Performing Organization Address City/[facility]/ZIP Co de Phone Number AJIT [facility] [place] [address] * Creatinine, urine, random (03/18/2024 9:52 AM CDT) Creatinine Ur 15.0 mg/dL Comment: Interpretive Data No reference range established. Current interpretive data was last revised 2018. Urine 03/18/2024 9:52 AM CDT 03/18/2024 10:02 AM CDT Xochitl Esquivel [employer] LAB URINE ORDERABLES F inal Result Performing Organization Address [facility] Co de Phone Number [facility] Department [place] [address] * Osmolality, urine (03/18/2024 9:52 AM CDT) Pathologist [facility] Osmo, ur 221 mOsm/kg Urine 03/18/2024 9:52 AM CDT 03/18/2024 10:02 AM CDT us Xochitl Esquivel P[employer] LAB URINE ORDERABLES F inal Result Performing Organization Address [facility] de Phone Number [facility] Department [place] [address] * (ABNORMAL) POCT glucose (03/18/2024 7:56 AM CDT) [facility] Glucose, POC 218(H) 70 - 199 mg/dL Blood 03/18/2024 7:56 AM CDT 03/18/2024 7:56 AM CDT us Chadd Toledo DO LAB POCT ORDERABLES - DEVICE Final Result Performing Organization Address [facility] de Phone Number [facility] [employer] [place] [place] [address] * Lidocaine level (03/18/2024 5:50 AM CDT) Pathologist [facility] Lidocaine (Xylocaine) 3.1 1.5 - 5.0 mcg/mL Blood 03/18/2024 5:50 AM CDT 03/18/2024 6:18 AM CDT Narrative AJIT [facility] - 03/18/2024 6:47 AM CDT Draw 24 hours after infusion started. Chadd Toledo DO LAB BLOOD ORDERABLES Final Result AJIT [facility] Department [place] [address] * eGFR (03/17/2024 11:15 PM CDT) eGFR >90 >=60 mL/min/1. 73 m2 [...] interpretive data was last reviewed 2021. Blood 03/17/2024 11:1 5 PM CDT 03/18/2024 12:35 AM CDT Chadd Toledo DO LAB BLOOD ORDERABLES Final Result Performing Organization Address [facility] de Phone Number [facility] [place] [address] * (ABNORMAL) CBC without differential (03/17/2024 11:15 PM CDT) [facility] WBC 3.9 3.8 - 9.9 K/cumm Hgb 9.7(L) 11.9 - 15.5 g/dL [facility] Hct 29.7(L) 35.6 - 45.5 % [facility] Plt 150 150 - 400 K/cumm [facility] MPV 8.6(L) 9.1 - 12.3 fL [facility] RBC 3.48(L) 3.90 - 5.20 M/cumm [facility] MCV 85.3 81.3 - 96.4 fL [facility] MCH 27.9 27.1 - 33.3 pg [facility] MCHC 32.7 32.3 - 35.7 g/dL [facility] RDW CV 15.6(H) 11.1 - 14.9 % [facility] RDW SD 46.0 35.7 - 48.1 fL [facility] NRBC abs 0.00 0.00 - 0.01 K/cumm [facility] Blood 03/17/2024 11:1 5 PM CDT 03/18/2024 12:34 AM CDT Chadd Toledo DO LAB BLOOD ORDERABLES Final Result Performing Organization Address [facility] Co de Phone Number [facility] Department [place] [address] * Phosphorus (03/17/2024 11:15 PM CDT) [facility] Phosphorus, pl 2.9 2.3 - 4.5 mg/dL Blood 03/17/2024 11:1 5 PM CDT 03/18/2024 12:35 AM CDT Chadd Toledo DO LAB BLOOD ORDERABLES Final Result Performing Organization Address City/[facility]/ZIP Co de Phone Number AJIT [facility] [employer] [place] [address] * Magnesium (03/17/2024 11:15 PM CDT) [facility] Magnesium 1.8 1.4 - 2.5 mg/dL Blood 03/17/2024 11:1 5 PM CDT 03/18/2024 12:35 AM CDT Chadd Toledo LAB BLOOD ORDERABLES Final Result Performing Organization Address [facility] de Phone Number AJIT [facility] [place] [address] * Basic metabolic panel (03/17/2024 11:15 PM CDT) [facility] Sodium 137 135 - 145 mmol/L Potassium, pl 3.9 3.3 - 4.9 mmol/L [facility] Chloride 100 97 - 110 mmol/L [facility] CO2 30 22 - 32 mmol/L [facility] Anion gap 7 2 - 15 mmol/L [facility] BUN 12 6 - 25 mg/dL [facility] Creatinine 0.63 0.60 - 1.10 mg/dL [facility] Glucose 180 70 - 199 mg/dL [facility] Comment: Interpretive Data Fasting glucose >/= 126 [...] interpretive data was last revised 2022. Calcium 9.0 8.5 - 10.3 mg/dL [facility] Blood 03/17/2024 11:1 5 PM CDT 03/18/2024 12:35 AM CDT Chadd Toledo DO LAB BLOOD ORDERABLES Final Result Performing Organization Address [facility] [place] [address] * Lidocaine level (03/17/2024 11:15 PM CDT) Lidocaine (Xylocaine) 2.7 1.5 - 5.0 mcg/mL Blood 03/17/2024 11:1 5 PM CDT 03/18/2024 12:27 AM CDT Narrative [facility] - 03/18/2024 1:00 AM CDT Draw 24 hours after infusion started. Result [facility] Chadd Toledo DO LAB BLOOD ORDERABLES Final Result Performing Organization Address [facility] [place] [address] * POCT glucose (03/17/2024 10:48 PM CDT) Glucose, POC 193 70 - 199 mg/dL Blood 03/17/2024 10:4 8 PM CDT 03/17/2024 10:48 PM CDT Result [facility] Chadd Toledo DO LAB POCT ORDERABLES - DEVICE Final Result Performing Organization Address [facility] [place] [address] * (ABNORMAL) POCT glucose (03/17/2024 8:15 PM CDT) Glucose, POC 227(H) 70 - 199 mg/dL Blood 03/17/2024 8:15 PM CDT 03/17/2024 8:15 PM CDT Chaddtorres Toledo DO LAB POCT ORDERABLES - DEVICE Final Result Performing Organization Address [facility] Co de Phone Number AJIT [facility] [employer] [place] [place] [address] * (ABNORMAL) POCT glucose (03/17/2024 6:05 PM CDT) Glucose, POC 221(H) 70 - 199 mg/dL Blood 03/17/2024 6:05 PM CDT 03/17/2024 6:05 PM CDT Chadd Toledo DO LAB POCT ORDERABLES - DEVICE Final Result Performing Organization Address [facility] de Phone Number AJIT [facility] [place] [address] * Critical Care (03/17/2024 2:09 PM CDT) Narrative Jesse Zhao MD - 03/17/2024 2:09 PM CDT Jesse Zhao MD ? 03/17/2024 ??2:09 PM Critical Care Performed by: Jesse Zhao MD Authorized by: Jesse Zhao MD ?? CRITICAL CARE: ??Team: ??SICU BLUE ??Shift: ??AM ??Level of Billing: ??Subsequent Hospital Visit Level 3 ??My time spent with this patient was 31 minutes: Critical Provider Statement: I have seen and examined the patient on this day of service. I have reviewed and confirmed the history, physical exam, laboratory, and radiographic data as documented in the ICU note. I have reviewed and discussed my treatment plan with the patient's team and other medical/programmer analyst consultant staff. This time was in addition to and separate from care provided by other practitioners on this day of service. ?? Jesse Zhao MD IN CLINIC/BEDSIDE ORDERABLE S Final Result * POCT glucose (03/17/2024 12:49 PM CDT) Glucose, POC 189 70 - 199 mg/dL Blood 03/17/2024 12:4 9 PM CDT 03/17/2024 12:49 PM CDT Chadd Toledo DO LAB POCT ORDERABLES - DEVICE Final Result Performing Organization Address [facility] de Phone Number AJIT [facility] [employer] [place] [place] [address] * (ABNORMAL) POCT glucose (03/17/2024 8:55 AM CDT) Glucose, POC 204(H) 70 - 199 mg/dL Blood 03/17/2024 8:55 AM CDT 03/17/2024 8:55 AM CDT Chadd Toledo DO LAB POCT ORDERABLES - DEVICE Final Result Performing Organization Address [facility] de Phone Number AJIT [facility] [employer] [place] [place] [address] * POCT glucose (03/17/2024 3:02 AM CDT) Glucose, POC 195 70 - 199 mg/dL Blood 03/17/2024 3:02 AM CDT 03/17/2024 3:02 AM CDT Chadd Toledo DO LAB POCT ORDERABLES - DEVICE Final Result Performing Organization Address [facility] de Phone Number AJIT [facility] [employer] [place] [place] [address] * eGFR (03/16/2024 10:09 PM CDT) eGFR >90 >=60 mL/min/1. 73 m2 [...] interpretive data was last reviewed 2021. Blood 03/16/2024 10:0 9 PM CDT 03/16/2024 10:28 PM CDT us Chadd Toledo DO LAB BLOOD ORDERABLES Final Result [facility] Department [place] [address] * (ABNORMAL) CBC without differential (03/16/2024 10:09 PM CDT) WBC 3.5(L) 3.8 - 9.9 K/cumm Hgb 9.5(L) 11.9 - 15.5 g/dL [facility] Hct 28.7(L) 35.6 - 45.5 % [facility] Plt 129(L) 150 - 400 K/cumm [facility] MPV 8.6(L) 9.1 - 12.3 fL [facility] RBC 3.40(L) 3.90 - 5.20 M/cumm [facility] MCV 84.4 81.3 - 96.4 fL [facility] MCH 27.9 27.1 - 33.3 pg [facility] MCHC 33.1 32.3 - 35.7 g/dL [facility] RDW CV 15.1(H) 11.1 - 14.9 % [facility] RDW SD 44.1 35.7 - 48.1 fL [facility] NRBC abs 0.00 0.00 - 0.01 K/cumm [facility] Blood 03/16/2024 10:0 9 PM CDT 03/16/2024 10:29 PM CDT Chadd Toledo DO LAB BLOOD ORDERABLES Final Result Performing Organization Address City/[facility]/ZIP Co de Phone Number [facility] [place] [address] * Phosphorus (03/16/2024 10:09 PM CDT) Phosphorus, pl 2.8 2.3 - 4.5 mg/dL Blood 03/16/2024 10:0 9 PM CDT 03/16/2024 10:28 PM CDT Chadd Toledo DO LAB BLOOD ORDERABLES Final Result Performing Organization Address [facility] Co de Phone Number [facility] [facility] [place] [address] * Magnesium (03/16/2024 10:09 PM CDT) Pathologist [facility] Magnesium 1.7 1.4 - 2.5 mg/dL Blood 03/16/2024 10:0 9 PM CDT 03/16/2024 10:28 PM CDT Chadd Toledo DO LAB BLOOD ORDERABLES Final Result Performing Organization Address City/[facility]/ZIP Co de Phone Number [facility] [place] [address] * (ABNORMAL) Basic metabolic panel (03/16/2024 10:09 PM CDT) Sodium 136 135 - 145 mmol/L Potassium, pl 4.0 3.3 - 4.9 mmol/L [facility] Chloride 97 97 - 110 mmol/L [facility] CO2 31 22 - 32 mmol/L [facility] Anion gap 8 2 - 15 mmol/L [facility] BUN 13 6 - 25 mg/dL [facility] Creatinine 0.71 0.60 - 1.10 mg/dL [facility] Glucose 222(H) 70 - 199 mg/dL [facility] Comment: Interpretive Data Fasting glucose >/= 126 [...] 2022. Calcium 8.8 8.5 - 10.3 mg/dL [facility] Blood 03/16/2024 10:0 9 PM CDT 03/16/2024 10:28 PM CDT us Chadd Toledo DO LAB BLOOD ORDERABLES Final Result Performing Organization Address [facility]/ZIP Co de Phone Number [facility] Department [place] [address] * (ABNORMAL) POCT glucose (03/16/2024 10:08 PM CDT) Glucose, POC 233(H) 70 - 199 mg/dL Blood 03/16/2024 10:0 8 PM CDT 03/16/2024 10:08 PM CDT Chadd Toledo DO LAB POCT ORDERABLES - DEVICE Final Result Performing Organization Address [facility]/State/[facility] Co de Phone Number [facility]IT [facility] Department [place] [address] * Critical Care (03/16/2024 8:11 PM CDT) Narrative Shandra Duarte MD - 03/16/2024 8:11 PM CDT Shandra Duarte MD ? 03/16/2024 ??8:14 PM Critical Care Performed by: Shandra Duarte MD Authorized by: Shandra Duarte MD ?? CRITICAL CARE: ??Team: ??SICU BLUE ??Shift: ??PM ??Level of Billing: ??Critical Care ??My time spent with this patient was 45 minutes: Critical Provider Statement: I have seen and examined the patient on this day of service. I have reviewed and confirmed the history, physical exam, laboratory and radiologic data as documented in the signed ICU note. I have reviewed and discussed my treatment plan with the ICU team and other medical/programmer analyst consultant staff, making frequent assessments and decisions regarding this patient's complex medical care. Critical Care time was exclusive of time spent performing separately billed procedures, treating other patients, and teaching. This time was in addition to and separate from critical care provided by other practitioners in my group on this day of service. Critical Care was necessary to treat or prevent imminent or life-threatening deterioration of the following conditions: ? Acute pain/acute postoperative pain ?? Facial fractures ?? Hypo- or Hyperglycemia ?? Spinal cord injury/spine fracture and Multiple rib fractures ??This time was spent by me doing the following: ? Serial laboratory checks, Serial bedside patient exams and Obtaining peripheral venous access or blood draws ?? Acute pain control ?? Active and frequent reassessment of respiratory status and oxygen requirements and Incentive spirometry, pulmonary toilet ?? Active and frequent monitoring of intake/output and volumen status and Glycemic control ?? I spent time reviewing and interpreting data from bedside monitors, laboratory results, and imaging, I spent time discussing the management of this critically ill patient with consultants and the medical staff and I spent time documenting in the medical record us Shandra Duarte MD IN CLINIC/BEDSIDE ORDERABLE S Final Result * (ABNORMAL) POCT glucose (03/16/2024 6:39 PM CDT) Glucose, POC 202(H) 70 - 199 mg/dL Blood 03/16/2024 6:39 PM CDT 03/16/2024 6:39 PM CDT Chadd Toledo DO LAB POCT ORDERABLES - DEVICE Final Result Performing Organization Address [facility] de Phone Number AJIT [facility] Department of [employer] [place] [address] * POCT glucose (03/16/2024 12:13 PM CDT) Glucose, POC 194 70 - 199 mg/dL Blood 03/16/2024 12:1 3 PM CDT 03/16/2024 12:13 PM CDT Chadd Elias Toledo DO LAB POCT ORDERABLES - DEVICE Final Result Performing Organization Address [facility] de Phone Number AJIT [facility] [employer] [place] [address] * Critical Care (03/16/2024 11:56 AM CDT) Narrative Jesse Zhao MD - 03/16/2024 11:56 AM CDT Jesse Zhao MD ? 03/16/2024 11:56 AM Critical Care Performed by: Jesse Zhao MD Authorized by: Jesse Zhao MD ?? CRITICAL CARE: ??Team: ??SICU BLUE ??Shift: ??AM ??Level of Billing: ??Critical Care ??My time spent with this patient was 31 minutes: Critical Provider Statement: I have seen and examined the patient on this day of service. I have reviewed and confirmed the history, physical exam, laboratory and radiologic data as documented in the signed ICU note. I have reviewed and discussed my treatment plan with the ICU team and other medical/programmer analyst consultant staff, making frequent assessments and decisions regarding this patient's complex medical care. Critical Care time was exclusive of time spent performing separately billed procedures, treating other patients, and teaching. This time was in addition to and separate from critical care provided by other practitioners in my group on this day of service. Critical Care was necessary to treat or prevent imminent or life-threatening deterioration of the following conditions: ?? us Jesse Zhao MD IN CLINIC/BEDSIDE ORDERABLE S Final Result * POCT glucose (03/16/2024 10:54 AM CDT) Glucose, POC 136 70 - 199 mg/dL Blood 03/16/2024 10:5 4 AM CDT 03/16/2024 10:54 AM CDT Chadd Toledo DO LAB POCT ORDERABLES - DEVICE Final Result Performing Organization Address [facility] de Phone Number [facility] Department [place] [address] * POCT glucose (03/16/2024 10:11 AM CDT) Glucose, POC 130 70 - 199 mg/dL Blood 03/16/2024 10:1 1 AM CDT 03/16/2024 10:11 AM CDT Chadd Toledo DO LAB POCT ORDERABLES - DEVICE Final Result Performing Organization Address [facility] de Phone Number [facility] Department [place] [address] * POCT glucose (03/16/2024 7:14 AM CDT) Glucose, POC 128 70 - 199 mg/dL Blood 03/16/2024 7:14 AM CDT 03/16/2024 7:14 AM CDT Chadd Toledo DO LAB POCT ORDERABLES - DEVICE Final Result Performing Organization Address [facility] Co de Phone [place] [address] * Lidocaine level (03/16/2024 6:01 AM CDT) Lidocaine (Xylocaine) 2.9 1.5 - 5.0 mcg/mL Blood 03/16/2024 6:01 AM CDT 03/16/2024 6:14 AM CDT Narrative AJIT TRAN - 03/16/2024 6:42 AM CDT Draw 24 hours after infusion started. Chadd Toledo DO LAB BLOOD ORDERABLES Final Result Performing Organization Address [facility]/[place] [address] * POCT glucose (03/16/2024 6:00 AM CDT) Glucose, POC 129 70 - 199 mg/dL Blood 03/16/2024 6:00 AM CDT 03/16/2024 6:00 AM CDT Chadd Toledo DO LAB POCT ORDERABLES - DEVICE Final Result Performing Organization Address [facility] [place] [address] * POCT glucose (03/16/2024 5:00 AM CDT) Glucose, POC 130 70 - 199 mg/dL Blood 03/16/2024 5:00 AM CDT 03/16/2024 5:00 AM CDT Chadd Toledo DO LAB POCT ORDERABLES - DEVICE Final Result Performing Organization Address [facility] [place] [address] * Critical Care (03/16/2024 4:44 AM CDT) Narrative Duarte, Shandra M., MD - 03/16/2024 4:44 AM CDT Shandra Duarte MD ? 03/16/2024 ??4:46 AM Critical Care Performed by: Shandra Duarte MD Authorized by: Shandra Duarte MD ?? CRITICAL CARE: ??Team: ??SICU BLUE ??Shift: ??PM ??Level of Billing: ??Critical Care ??My time spent with this patient was 35 minutes: Critical Provider Statement: I have seen and examined the patient on this day of service. I have reviewed and confirmed the history, physical exam, laboratory and radiologic data as documented in the signed ICU note. I have reviewed and discussed my treatment plan with the ICU team and other medical/programmer analyst consultant staff, making frequent assessments and decisions regarding this patient's complex medical care. Critical Care time was exclusive of time spent performing separately billed procedures, treating other patients, and teaching. This time was in addition to and separate from critical care provided by other practitioners in my group on this day of service. Critical Care was necessary to treat or prevent imminent or life-threatening deterioration of the following conditions: ? Hyperglycemia on Insulin gtt ?? Hypo- or Hyperglycemia ?? Multiple rib fractures, Spinal cord injury/spine fracture and Traumatic brain injury ??This time was spent by me doing the following: ? Serial laboratory checks, Serial bedside patient exams and Obtaining peripheral venous access or blood draws ?? Acute pain control and Anti-epileptic therapy ?? Active and frequent reassessment of respiratory status and oxygen requirements and Incentive spirometry, pulmonary toilet ?? Active and frequent monitoring of intake/output and volumen status and Glycemic control ?? I spent time reviewing and interpreting data from bedside monitors, laboratory results, and imaging, I spent time discussing the management of this critically ill patient with consultants and the medical staff and I spent time documenting in the medical record us Shandra Duarte MD IN CLINIC/BEDSIDE ORDERABLE S Final Result * POCT glucose (03/16/2024 4:10 AM CDT) Glucose, POC 146 70 - 199 mg/dL Blood 03/16/2024 4:10 AM CDT 03/16/2024 4:10 AM CDT Chadd Toledo DO LAB POCT ORDERABLES - DEVICE Final Result Performing Organization Address [facility] de Phone Number AJIT [facility] [place] [address] * POCT glucose (03/16/2024 3:01 AM CDT) Glucose, POC 154 70 - 199 mg/dL Blood 03/16/2024 3:01 AM CDT 03/16/2024 3:01 AM CDT Chadd Toledo DO LAB POCT ORDERABLES - DEVICE Final Result Performing Organization Address [facility] Phone Number [facility] [place] [address] * POCT glucose (03/16/2024 2:03 AM CDT) Glucose, POC 169 70 - 199 mg/dL Blood 03/16/2024 2:03 AM CDT 03/16/2024 2:03 AM CDT Chadd Toledo DO LAB POCT ORDERABLES - DEVICE Final Result Performing Organization Address [facility] [place] [address] * POCT glucose (03/16/2024 1:06 AM CDT) Glucose, POC 176 70 - 199 mg/dL Blood 03/16/2024 1:06 AM CDT 03/16/2024 1:06 AM CDT Chadd Toledo DO LAB POCT ORDERABLES - DEVICE Final Result Performing Organization Address [facility]/[place]IP [place] [address] * POCT glucose (03/16/2024 12:10 AM CDT) Glucose, POC 153 70 - 199 mg/dL Blood 03/16/2024 12:1 0 AM CDT 03/16/2024 12:10 AM CDT us Chadd Toledo DO LAB POCT ORDERABLES - DEVICE Final Result Performing Organization Address [facility] [place] [address] * POCT glucose (03/15/2024 11:09 PM CDT) Glucose, POC 122 70 - 199 mg/dL Blood 03/15/2024 11:0 9 PM CDT 03/15/2024 11:09 PM CDT Chadd Toledo DO LAB POCT ORDERABLES - DEVICE Final Result Performing Organization Address City/[facility] [place] [address] * POCT glucose (03/15/2024 9:59 PM CDT) Glucose, POC 130 70 - 199 mg/dL Blood 03/15/2024 9:59 PM CDT 03/15/2024 9:59 PM CDT Chadd Toledo DO LAB POCT ORDERABLES - DEVICE Final Result Performing Organization Address City/[facility] Co de Phone Number [facility] [place] [address] * POCT glucose (03/15/2024 8:53 PM CDT) Glucose, POC 161 70 - 199 mg/dL Blood 03/15/2024 8:53 PM CDT 03/15/2024 8:53 PM CDT us Chadd Toledo DO LAB POCT ORDERABLES - DEVICE Final Result [facility] Department [place] [address] * eGFR (03/15/2024 8:51 PM CDT) Pathologist [facility] eGFR >90 >=60 mL/min/1. 73 m2 Comment: [...] interpretive data was last reviewed 2021. Blood 03/15/2024 8:51 PM CDT 03/15/2024 9:04 PM CDT Chadd Toledo DO LAB BLOOD ORDERABLES Final Result Performing Organization Address [facility] Co de Phone Number [facility] Department [place] [address] * (ABNORMAL) CBC without differential (03/15/2024 8:51 PM CDT) [facility] WBC 4.8 3.8 - 9.9 K/cumm Hgb 9.4(L) 11.9 - 15.5 g/dL [facility] Hct 28.2(L) 35.6 - 45.5 % [facility] Plt 119(L) 150 - 400 K/cumm [facility] MPV 9.0(L) 9.1 - 12.3 fL [facility] RBC 3.35(L) 3.90 - 5.20 M/cumm [facility] MCV 84.2 81.3 - 96.4 fL [facility] MCH 28.1 27.1 - 33.3 pg [facility] MCHC 33.3 32.3 - 35.7 g/dL [facility] RDW CV 14.7 11.1 - 14.9 % [facility] RDW SD 43.4 35.7 - 48.1 fL [facility] NRBC abs 0.00 0.00 - 0.01 K/cumm [facility] Blood 03/15/2024 8:51 PM CDT 03/15/2024 9:04 PM CDT Chadd Toledo DO LAB BLOOD ORDERABLES Final Result Performing Organization Address [facility] Co de Phone Number [facility] Department [place] [address] * Phosphorus (03/15/2024 8:51 PM CDT) [facility] Phosphorus, pl 2.7 2.3 - 4.5 mg/dL Blood 03/15/2024 8:51 PM CDT 03/15/2024 9:04 PM CDT Chadd Toledo DO LAB BLOOD ORDERABLES Final Result [facility] Department [place] [address] * Magnesium (03/15/2024 8:51 PM CDT) Pathologist [facility] Magnesium 1.7 1.4 - 2.5 mg/dL Blood 03/15/2024 8:51 PM CDT 03/15/2024 9:04 PM CDT [facility] Final Result Performing Organization Address [facility] Co de Phone Number [facility] [place] [address] * Basic metabolic panel (03/15/2024 8:51 PM CDT) [facility] Sodium 136 135 - 145 mmol/L Potassium, pl 3.8 3.3 - 4.9 mmol/L [facility] Chloride 99 97 - 110 mmol/L [facility] CO2 31 22 - 32 mmol/L [facility] Anion gap 6 2 - 15 mmol/L [facility] BUN 15 6 - 25 mg/dL [facility] Creatinine 0.70 0.60 - 1.10 mg/dL [facility] Glucose 158 70 - 199 mg/dL [facility] Comment: Interpretive Data Fasting glucose >/= 126 [...] interpretive data was last revised 2022. Calcium 8.7 8.5 - 10.3 mg/dL [facility] Blood 03/15/2024 8:51 PM CDT 03/15/2024 9:04 PM CDT Chadd Toledo DO LAB BLOOD ORDERABLES Final Result Performing Organization Address [facility] Co de Phone Number [facility] [place] [address] * POCT glucose (03/15/2024 8:05 PM CDT) Glucose, POC 188 70 - 199 mg/dL Blood 03/15/2024 8:05 PM CDT 03/15/2024 8:05 PM CDT Chadd Toledo DO LAB POCT ORDERABLES - DEVICE Final Result Performing Organization Address [facility] de Phone Number AJIT [facility] [place] [address] * (ABNORMAL) POCT glucose (03/15/2024 7:04 PM CDT) Glucose, POC 221(H) 70 - 199 mg/dL Blood 03/15/2024 7:04 PM CDT 03/15/2024 7:04 PM CDT Chadd Toledo DO LAB POCT ORDERABLES - DEVICE Final Result Performing Organization Address [facility] de Phone Number [facility] [place] [address] * (ABNORMAL) POCT glucose (03/15/2024 6:09 PM CDT) Glucose, POC 217(H) 70 - 199 mg/dL Blood 03/15/2024 6:09 PM CDT 03/15/2024 6:09 PM CDT Chadd Toledo DO LAB POCT ORDERABLES - DEVICE Final Result Performing Organization Address [facility]/State/ZIP Co de Phone Number AJIT TRAN [facility] Department [place] [address] * (ABNORMAL) POCT glucose (03/15/2024 5:38 PM CDT) Glucose, POC 200(H) 70 - 199 mg/dL Blood 03/15/2024 5:38 PM CDT 03/15/2024 5:38 PM CDT us Chaddtorres Toledo DO LAB POCT ORDERABLES - DEVICE Final Result [facility] [place] [address] * Critical Care (03/15/2024 5:28 PM CDT) Narrative Jesse Zhao MD - 03/15/2024 5:28 PM CDT Jesse Zhao MD ? 03/15/2024 ??5:28 PM Critical Care Performed by: Jesse Zhao MD Authorized by: Jesse Zhao MD ?? CRITICAL CARE: ??Team: ??SICU BLUE ??Shift: ??AM ??Level of Billing: ??Critical Care ??My time spent with this patient was 35 minutes: Critical Provider Statement: I have seen and examined the patient on this day of service. I have reviewed and confirmed the history, physical exam, laboratory and radiologic data as documented in the signed ICU note. I have reviewed and discussed my treatment plan with the ICU team and other medical/programmer analyst consultant staff, making frequent assessments and decisions regarding this patient's complex medical care. Critical Care time was exclusive of time spent performing separately billed procedures, treating other patients, and teaching. This time was in addition to and separate from critical care provided by other practitioners in my group on this day of service. Critical Care was necessary to treat or prevent imminent or life-threatening deterioration of the following conditions: ?? us Jesse Zhao MD IN CLINIC/BEDSIDE ORDERABLE S Final Result * POCT glucose (03/15/2024 4:31 PM CDT) Glucose, POC 184 70 - 199 mg/dL Blood 03/15/2024 4:31 PM CDT 03/15/2024 4:31 PM CDT Chadd Toledo DO LAB POCT ORDERABLES - DEVICE Final Result Performing Organization Address [facility] Co de Phone Number [facility] [place] [address] * POCT glucose (03/15/2024 3:09 PM CDT) Glucose, POC 169 70 - 199 mg/dL Blood 03/15/2024 3:09 PM CDT 03/15/2024 3:09 PM CDT Chadd Toledo DO LAB POCT ORDERABLES - DEVICE Final Result Performing Organization Address [facility] de Phone Number [facility] [employer] [place] [address] * XR Spine Thoracic 3 Vw (03/15/2024 3:05 PM CDT) Anatomical Region Laterality Modality Spine N/A Computed Radiogr aphy 03/15/2024 4:50 PM CDT Impressions 03/15/2024 7:03 PM CDT 1. ??Unchanged C2-T2 posterior segment fusion. Dictated by: Deepak Goddard D.O. The radiology attending physician has personally reviewed this study, and had reviewed and/or edited this written report and agrees with it. Electronically signed by: Yi Tavarez MD Narrative 03/15/2024 7:03 PM CDT EXAMINATION: XR SPINE CERVICAL 2 OR 3 VIEWS, XR SPINE THORACIC 3 VIEWS HISTORY: ??Postop FINDINGS: 2 views of the cervical spine 3 views of the thoracic spine were obtained with comparison to CT cervical spine dated 03/13/2024. There is redemonstrated C2-T2 posterior instrumented fusion. ??The hardware is intact and the cervicothoracic alignment is unchanged. 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 ??Surgical drains project over the posterior neck soft tissues. Procedure Note Karmen Tavarez MD - 03/15/2024 EXAMINATION: XR SPINE CERVICAL 2 OR 3 [...] project over the posterior neck soft tissues. IMPRESSION: 1. Unchanged C2-T2 posterior segment fusion. Dictated by: Deepak Goddard D.O. The radiology attending physician has personally reviewed this study, and had reviewed and/or edited this written report and agrees with it. Electronically signed by: Yi Tavarez MD Chadd Toledo DO IMG XR PROCEDURES Fin al Result * XR Spine Cervical 2 or 3 Views (03/15/2024 3:05 PM CDT) Anatomical Region Laterality Modality Spine N/A Computed Radiogr aphy 03/15/2024 4:50 PM CDT Impressions 03/15/2024 7:03 PM CDT 1. ??Unchanged C2-T2 posterior segment fusion. Dictated by: Deepak Goddard D.O. The radiology attending physician has personally reviewed this study, and had reviewed and/or edited this written report and agrees with it. Electronically signed by: Yi Tavarez MD Narrative 03/15/2024 7:03 PM CDT EXAMINATION: XR SPINE CERVICAL 2 OR 3 VIEWS, XR SPINE THORACIC 3 VIEWS HISTORY: ??Postop FINDINGS: 2 views of the cervical spine 3 views of the thoracic spine were obtained with comparison to CT cervical spine dated 03/13/2024. There is redemonstrated C2-T2 posterior instrumented fusion. ??The hardware is intact and the cervicothoracic alignment is unchanged. 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 ??Surgical drains project over the posterior neck soft tissues. Procedure Note Karmen Tavarez MD - 03/15/2024 EXAMINATION: XR SPINE CERVICAL 2 OR 3 [...] project over the posterior neck soft tissues. IMPRESSION: 1. Unchanged C2-T2 posterior segment fusion. Dictated by: Deepak Goddard D.O. The radiology attending physician has personally reviewed this study, and had reviewed and/or edited this written report and agrees with it. Electronically signed by: Yi Tavarez MD Chadd Toledo DO IMG XR PROCEDURES Fin al Result * (ABNORMAL) POCT glucose (03/15/2024 1:02 PM CDT) Glucose, POC 204(H) 70 - 199 mg/dL Blood 03/15/2024 1:02 PM CDT 03/15/2024 1:02 PM CDT Chadd Toledo DO LAB POCT ORDERABLES - DEVICE Final Result Performing Organization Address [facility] Co de Phone Number [facility] Department [place] [address] * POCT glucose (03/15/2024 12:32 PM CDT) Glucose, POC 198 70 - 199 mg/dL Blood 03/15/2024 12:3 2 PM CDT 03/15/2024 12:32 PM CDT Chadd Toledo DO LAB POCT ORDERABLES - DEVICE Final Result Performing Organization Address [facility] Co de Phone Number [facility] [employer] [place] [address] * (ABNORMAL) POCT glucose (03/15/2024 11:07 AM CDT) Glucose, POC 208(H) 70 - 199 mg/dL Blood 03/15/2024 11:0 7 AM CDT 03/15/2024 11:07 AM CDT Chadd Toledo DO LAB POCT ORDERABLES - DEVICE Final Result Performing Organization Address [facility] Co de Phone Number [facility] [place] [address] * (ABNORMAL) POCT glucose (03/15/2024 10:05 AM CDT) Glucose, POC 217(H) 70 - 199 mg/dL Blood 03/15/2024 10:0 5 AM CDT 03/15/2024 10:05 AM CDT Chadd Toledo DO LAB POCT ORDERABLES - DEVICE Final Result Performing Organization Address [facility] Co de Phone Number [facility] [employer] [place] [place] [address] * POCT glucose (03/15/2024 8:13 AM CDT) Glucose, POC 95 70 - 199 mg/dL Blood 03/15/2024 8:13 AM CDT 03/15/2024 8:13 AM CDT Chadd Toledo DO LAB POCT ORDERABLES - DEVICE Final Result Performing Organization Address City/[facility] Co de Phone Number [facility] [place] [address] * POCT glucose (03/15/2024 7:16 AM CDT) Glucose, POC 84 70 - 199 mg/dL Blood 03/15/2024 7:16 AM CDT 03/15/2024 7:16 AM CDT Chaddtorres Griffin Efetorres DO LAB POCT ORDERABLES - DEVICE Final Result Performing Organization Address [facility] Co de Phone Number [facility] [employer] [place] [place] [address] * Lidocaine level (03/15/2024 6:00 AM CDT) Lidocaine (Xylocaine) 2.8 1.5 - 5.0 mcg/mL Blood 03/15/2024 6:00 AM CDT 03/15/2024 6:18 AM CDT Narrative [facility] - 03/15/2024 6:47 AM CDT Draw 24 hours after infusion started. Chadd Elias Efetorres LAB BLOOD ORDERABLES Final Result Performing Organization Address [facility] Co de Phone Number [facility] [employer] [place] [place] [address] * POCT glucose (03/15/2024 5:58 AM CDT) Glucose, POC 115 70 - 199 mg/dL Blood 03/15/2024 5:58 AM CDT 03/15/2024 5:58 AM CDT Chadd Elias Efetorres LAB POCT ORDERABLES - DEVICE Final Result Performing Organization Address City/[facility] Co de Phone Number [facility] [employer] [place] [place] [address] * POCT glucose (03/15/2024 4:58 AM CDT) Glucose, POC 135 70 - 199 mg/dL Blood 03/15/2024 4:58 AM CDT 03/15/2024 4:58 AM CDT Chadd Toledo DO LAB POCT ORDERABLES - DEVICE Final Result Performing Organization Address [facility] Co de Phone Number [facility] [employer] [place] [place] [address] * POCT glucose (03/15/2024 4:03 AM CDT) Glucose, POC 175 70 - 199 mg/dL Blood 03/15/2024 4:03 AM CDT 03/15/2024 4:03 AM CDT Chadd Toledo DO LAB POCT ORDERABLES - DEVICE Final Result Performing Organization Address [facility] de Phone Number [facility] [employer] [place] [address] * POCT glucose (03/15/2024 3:01 AM CDT) Glucose, POC 158 70 - 199 mg/dL Blood 03/15/2024 3:01 AM CDT 03/15/2024 3:01 AM CDT Chadd Toledo DO LAB POCT ORDERABLES - DEVICE Final Result Performing Organization Address [facility] [place] [address] * POCT glucose (03/15/2024 2:00 AM CDT) Glucose, POC 140 70 - 199 mg/dL Blood 03/15/2024 2:00 AM CDT 03/15/2024 2:00 AM CDT Chadd Toledo DO LAB POCT ORDERABLES - DEVICE Final Result Performing Organization Address [facility] Co de Phone Number [facility] [place] [address] * POCT glucose (03/15/2024 1:00 AM CDT) Glucose, POC 122 70 - 199 mg/dL Blood 03/15/2024 1:00 AM CDT 03/15/2024 1:00 AM CDT Chadd Toledo DO LAB POCT ORDERABLES - DEVICE Final Result Performing Organization Address [facility] Co de Phone Number [facility] [place] [address] * POCT glucose (03/14/2024 11:55 PM CDT) Glucose, POC 84 70 - 199 mg/dL Blood 03/14/2024 11:5 5 PM CDT 03/14/2024 11:55 PM CDT Chadd Toledo DO LAB POCT ORDERABLES - DEVICE Final Result Performing Organization Address [facility] Co de Phone Number [facility] [place] [address] * HI CRITICAL CARE ILL/INJURED PATIENT INIT 30-74 MIN (03/14/2024 11:20 PM CDT) Narrative Jack Wilks MD - 03/14/2024 11:20 PM CDT Jack Wilks MD ? 03/14/2024 11:21 PM Critical Care Performed by: Jack Wilks MD Authorized by: Jack Wilks MD ?? Critical care provider statement: As reflected in the history, physical exam, orders, notes, and/or MDM, I was personally present while the patient was critically ill and provided critical care services for 35 minutes, excluding time involved in separately billable procedures. ??Critical care was necessary to treat or prevent imminent or life-threatening deterioration of the following condition(s): ?? spinal cord injury/spine fracture and multiple rib fractures ??Critical care was time spent by me providing the following: ? continuous telemetry and continuous pulse oximetry ?? advanced imaging MRI ? supplemental oxygen ?? spinal immobilization ?? acute pain control ?? I provided emergent necessary critical care medicine services to this patient. I spent time discussing the management of this critically ill patient with consultants and the medical staff. I spent time documenting in the medical record. I admitted this patient to an Intensive Care unit (ICU) and discussed management with the admitting team. us Jack Wilks MD IN CLINIC/BEDSIDE ORDERABLES Final Result * Critical Care (03/14/2024 11:02 PM CDT) Narrative Shandra Duarte MD - 03/14/2024 11:02 PM CDT Shandra Duarte MD ? 03/17/2024 ??2:41 PM Critical Care Performed by: Shandra Duarte MD Authorized by: Shandra Duarte MD ?? CRITICAL CARE: ??Team: ??SICU BLUE ??Shift: ??PM ??Level of Billing: ??Critical Care ??My time spent with this patient was 45 minutes: Critical Provider Statement: I have seen and examined the patient on this day of service. I have reviewed and confirmed the history, physical exam, laboratory and radiologic data as documented in the signed ICU note. I have reviewed and discussed my treatment plan with the ICU team and other medical/programmer analyst consultant staff, making frequent assessments and decisions regarding this patient's complex medical care. Critical Care time was exclusive of time spent performing separately billed procedures, treating other patients, and teaching. This time was in addition to and separate from critical care provided by other practitioners in my group on this day of service. Critical Care was necessary to treat or prevent imminent or life-threatening deterioration of the following conditions: ? Acute pain/acute postoperative pain ?? Vasoplegic shock ?? Hypo- or Hyperglycemia ?? Thrombocytopenia ?? Multiple rib fractures and Spinal cord injury/spine fracture ??This time was spent by me doing the following: ? Serial laboratory checks and Serial bedside patient exams ?? Acute pain control ?? Initiation/active titration of vasoactive medications ?? Active and frequent reassessment of respiratory status and oxygen requirements and Incentive spirometry, pulmonary toilet ?? Active and frequent monitoring of intake/output and volumen status and Glycemic control ?? Acute fracture care and Spinal immobilization ?? I spent time reviewing and interpreting data from bedside monitors, laboratory results, and imaging, I spent time discussing the management of this critically ill patient with consultants and the medical staff and I spent time documenting in the medical record us Shandra Duarte MD IN CLINIC/BEDSIDE ORDERABLE S Edited Result - Final * POCT glucose (03/14/2024 10:15 PM CDT) Glucose, POC 125 70 - 199 mg/dL Blood 03/14/2024 10:1 5 PM CDT 03/14/2024 10:15 PM CDT Chadd Toledo DO LAB POCT ORDERABLES - DEVICE Final Result Performing Organization Address City/[facility]/ZIP Co de Phone Number [facility] [place] [employer] [place] [place] [address] * POCT glucose (03/14/2024 9:07 PM CDT) Glucose, POC 127 70 - 199 mg/dL Blood 03/14/2024 9:07 PM CDT 03/14/2024 9:07 PM CDT us Chadd Toledo DO LAB POCT ORDERABLES - DEVICE Final Result [facility] [employer] [place] [address] * POCT glucose (03/14/2024 7:57 PM CDT) Glucose, POC 149 70 - 199 mg/dL Blood 03/14/2024 7:57 PM CDT 03/14/2024 7:57 PM CDT us Chadd Toledo DO LAB POCT ORDERABLES - DEVICE Final Result Performing Organization Address [facility] Co de Phone Number [facility] [place] [employer] [place] [address] * eGFR (03/14/2024 7:55 PM CDT) eGFR >90 >=60 mL/min/1. 73 m2 [...] interpretive data was last reviewed 2021. Blood 03/14/2024 7:55 PM CDT 03/14/2024 8:19 PM CDT us Chadd Toledo DO LAB BLOOD ORDERABLES Final Result Performing Organization Address City/[facility] Co de Phone Number [facility] Department [place] [address] * Type and screen (03/14/2024 7:55 PM CDT) Pathologist [facility] ABO Rh O Negative Anselmo, indirect Negative [facility] Blood 03/14/2024 7:55 PM CDT 03/14/2024 8:24 PM CDT Narrative [facility] - 03/14/2024 9:09 PM CDT Has the patient had Daratumumab or Isatuximab in the past 6 months?->Unknown Chadd Toledo DO LAB BLOOD BANK TEST O RDERABLES Final Result Performing Organization Address City/[facility]/ZIP Co de Phone Number [facility] Department [place] [address] * (ABNORMAL) CBC without differential (03/14/2024 7:55 PM CDT) Pathologist [facility] WBC 5.0 3.8 - 9.9 K/cumm Hgb 9.9(L) 11.9 - 15.5 g/dL [facility] Hct 29.2(L) 35.6 - 45.5 % [facility] Plt 112(L) 150 - 400 K/cumm [facility] MPV 9.3 9.1 - 12.3 fL [facility] RBC 3.50(L) 3.90 - 5.20 M/cumm [facility] MCV 83.4 81.3 - 96.4 fL [facility] MCH 28.3 27.1 - 33.3 pg [facility] MCHC 33.9 32.3 - 35.7 g/dL [facility] RDW CV 14.6 11.1 - 14.9 % [facility] RDW SD 43.5 35.7 - 48.1 fL [facility] NRBC abs 0.00 0.00 - 0.01 K/cumm [facility] Blood 03/14/2024 7:55 PM CDT 03/14/2024 8:19 PM CDT Chadd Toledo DO LAB BLOOD ORDERABLES Final Result [facility] [place] [address] * Phosphorus (03/14/2024 7:55 PM CDT) [facility] Phosphorus, pl 3.0 2.3 - 4.5 mg/dL Blood 03/14/2024 7:55 PM CDT 03/14/2024 8:19 PM CDT Chadd Toledo DO LAB BLOOD ORDERABLES Final Result Performing Organization Address City/[facility] [place] [address] * Magnesium (03/14/2024 7:55 PM CDT) [facility] Magnesium 1.7 1.4 - 2.5 mg/dL Blood 03/14/2024 7:55 PM CDT 03/14/2024 8:19 PM CDT Chadd Toledo DO LAB BLOOD ORDERABLES Final Result Performing Organization Address [facility] de Phone Number [facility] [place] [address] * (ABNORMAL) Basic metabolic panel (03/14/2024 7:55 PM CDT) [facility] Sodium 135 135 - 145 mmol/L Potassium, pl 3.9 3.3 - 4.9 mmol/L [facility] Chloride 98 97 - 110 mmol/L [facility] CO2 33(H) 22 - 32 mmol/L [facility] Anion gap 4 2 - 15 mmol/L [facility] BUN 12 6 - 25 mg/dL [facility] Creatinine 0.53(L) 0.60 - 1.10 mg/dL [facility] Glucose 136 70 - 199 mg/dL [facility] Comment: Interpretive Data Fasting glucose >/= 126 [...] interpretive data was last revised 2022. Calcium 8.5 8.5 - 10.3 mg/dL [facility] Blood 03/14/2024 7:55 PM CDT 03/14/2024 8:19 PM CDT Chadd Toledo DO LAB BLOOD ORDERABLES Final Result Performing Organization Address [facility] Co de Phone Number [facility] [employer] [place] [address] * POCT glucose (03/14/2024 6:59 PM CDT) Glucose, POC 145 70 - 199 mg/dL Blood 03/14/2024 6:59 PM CDT 03/14/2024 6:59 PM CDT Chadd Toledo DO LAB POCT ORDERABLES - DEVICE Final Result Performing Organization Address [facility] Co de Phone Number [facility] [employer] [place] [address] * POCT glucose (03/14/2024 6:01 PM CDT) Glucose, POC 177 70 - 199 mg/dL Blood 03/14/2024 6:01 PM CDT 03/14/2024 6:01 PM CDT Chadd Toeldo DO LAB POCT ORDERABLES - DEVICE Final Result Performing Organization Address [facility] Co de Phone Number [facility] Department [place] [employer] [place] [place] [address] * POCT glucose (03/14/2024 5:21 PM CDT) Glucose, POC 196 70 - 199 mg/dL Blood 03/14/2024 5:21 PM CDT 03/14/2024 5:21 PM CDT Chadd Elias Efetorres DO LAB POCT ORDERABLES - DEVICE Final Result [facility] [place] [address] * (ABNORMAL) POCT glucose (03/14/2024 4:25 PM CDT) Glucose, POC 238(H) 70 - 199 mg/dL Blood 03/14/2024 4:25 PM CDT 03/14/2024 4:25 PM CDT Chadd Elias Tre CARR LAB POCT ORDERABLES - DEVICE Final Result Performing Organization Address City/[facility]/ZIP Co de Phone Number [facility] [place] [address] * (ABNORMAL) POCT glucose (03/14/2024 3:20 PM CDT) Glucose, POC 239(H) 70 - 199 mg/dL Blood 03/14/2024 3:20 PM CDT 03/14/2024 3:20 PM CDT Chadd Elias Efetorres DO LAB POCT ORDERABLES - DEVICE Final Result Performing Organization Address City/[facility]/ZIP [place] [address] * (ABNORMAL) POCT glucose (03/14/2024 2:00 PM CDT) Glucose, POC 271(H) 70 - 199 mg/dL Comment:Glu2: RN/MD Notified Glucose comment 1 Glu2: RN/MD Notified [facility] Blood 03/14/2024 2:00 PM CDT 03/14/2024 2:00 PM CDT Chadd Toledo DO LAB POCT ORDERABLES - DEVICE Final Result Performing Organization Address [facility] Co de Phone Number [facility] [employer] [place] [address] * (ABNORMAL) POCT glucose (03/14/2024 12:59 PM CDT) Glucose, POC 257(H) 70 - 199 mg/dL Blood 03/14/2024 12:5 9 PM CDT 03/14/2024 12:59 PM CDT Chadd Elias Tre LAB POCT ORDERABLES - DEVICE Final Result Performing Organization Address [facility] de Phone Number [facility] [employer] [place] [address] * (ABNORMAL) POCT glucose (03/14/2024 12:15 PM CDT) Glucose, POC 252(H) 70 - 199 mg/dL Blood 03/14/2024 12:1 5 PM CDT 03/14/2024 12:15 PM CDT Chadd Elias Efetorres DO LAB POCT ORDERABLES - DEVICE Final Result Performing Organization Address [facility] de Phone Number [facility] [employer] [place] [address] * (ABNORMAL) POCT glucose (03/14/2024 11:01 AM CDT) Glucose, POC 218(H) 70 - 199 mg/dL Blood 03/14/2024 11:0 1 AM CDT 03/14/2024 11:01 AM CDT Chadd Toledo DO LAB POCT ORDERABLES - DEVICE Final Result Performing Organization Address [facility] Co de Phone Number [facility] [employer] [place] [address] * POCT glucose (03/14/2024 9:56 AM CDT) Glucose, POC 153 70 - 199 mg/dL Blood 03/14/2024 9:56 AM CDT 03/14/2024 9:56 AM CDT Chadd Toledo DO LAB POCT ORDERABLES - DEVICE Final Result Performing Organization Address [facility] de Phone Number [facility] [employer] [place] [place] [address] * POCT glucose (03/14/2024 9:00 AM CDT) Glucose, POC 105 70 - 199 mg/dL Blood 03/14/2024 9:00 AM CDT 03/14/2024 9:00 AM CDT Chadd Toledo DO LAB POCT ORDERABLES - DEVICE Final Result Performing Organization Address [facility] [place] [address] * POCT glucose (03/14/2024 8:07 AM CDT) Glucose, POC 78 70 - 199 mg/dL Blood 03/14/2024 8:07 AM CDT 03/14/2024 8:07 AM CDT Chadd Toledo DO LAB POCT ORDERABLES - DEVICE Final Result [facility] Department [place] [address] * Critical Care (03/14/2024 7:38 AM CDT) Narrative Michelle Tellez MD - 03/14/2024 7:38 AM CDT Michelle Tellez MD ? 03/15/2024 11:00 AM Critical Care Performed by: Michelle Tellez MD Authorized by: Michelle Tellez MD ?? CRITICAL CARE: ??Team: ??SICU BLUE ??Shift: ??AM ??Level of Billing: ??Critical Care ??My time spent with this patient was 40 minutes: Critical Provider Statement: I have seen and examined the patient on this day of service. I have reviewed and confirmed the history, physical exam, laboratory and radiologic data as documented in the signed ICU note. I have reviewed and discussed my treatment plan with the ICU team and other medical/programmer analyst consultant staff, making frequent assessments and decisions regarding this patient's complex medical care. Critical Care time was exclusive of time spent performing separately billed procedures, treating other patients, and teaching. This time was in addition to and separate from critical care provided by other practitioners in my group on this day of service. Critical Care was necessary to treat or prevent imminent or life-threatening deterioration of the following conditions: ? Acute pain/acute postoperative pain ?? Hypo- or Hyperglycemia ?? Spinal cord injury/spine fracture and Multiple rib fractures ??This time was spent by me doing the following: ? Serial laboratory checks ?? Acute pain control ?? Initiation/active titration of vasoactive medications and Serial neurovascular exams ?? Active and frequent reassessment of respiratory status and oxygen requirements and Incentive spirometry, pulmonary toilet ?? Active and frequent monitoring of intake/output and volumen status and Glycemic control ?? Spinal immobilization ?? I spent time reviewing and interpreting data from bedside monitors, laboratory results, and imaging, I spent time discussing the management of this critically ill patient with consultants and the medical staff and I spent time documenting in the medical record us Michelle Tellez MD IN CLINIC/BEDSIDE NIDHI VIEIRA Final Result * POCT glucose (03/14/2024 7:12 AM CDT) Glucose, POC 95 70 - 199 mg/dL Blood 03/14/2024 7:12 AM CDT 03/14/2024 7:12 AM CDT Chadd Toledo DO LAB POCT ORDERABLES - DEVICE Final Result Performing Organization Address [facility] Co de Phone Number [facility] [employer] [place] [address] * POCT glucose (03/14/2024 6:10 AM CDT) Glucose, POC 127 70 - 199 mg/dL Blood 03/14/2024 6:10 AM CDT 03/14/2024 6:10 AM CDT Chaddtorres Griffin Efetorres DO LAB POCT ORDERABLES - DEVICE Final Result Performing Organization Address [facility] Co de Phone Number [facility] [employer] [place] [address] * POCT glucose (03/14/2024 5:11 AM CDT) Glucose, POC 138 70 - 199 mg/dL Blood 03/14/2024 5:11 AM CDT 03/14/2024 5:11 AM CDT Chadd Toledo DO LAB POCT ORDERABLES - DEVICE Final Result Performing Organization Address [facility] Co de Phone Number [facility] [employer] [place] [place] [address] * POCT glucose (03/14/2024 4:03 AM CDT) Glucose, POC 139 70 - 199 mg/dL Blood 03/14/2024 4:03 AM CDT 03/14/2024 4:03 AM CDT us Chadd Toeldo DO LAB POCT ORDERABLES - DEVICE Final Result Performing Organization Address [facility] Co de Phone Number [facility] [employer] [place] [place] [address] * POCT glucose (03/14/2024 3:11 AM CDT) Glucose, POC 173 70 - 199 mg/dL Blood 03/14/2024 3:11 AM CDT 03/14/2024 3:11 AM CDT us Chadd Toledo DO LAB POCT ORDERABLES - DEVICE Final Result Performing Organization Address [facility] [place] [address] * POCT glucose (03/14/2024 2:21 AM CDT) Glucose, POC 165 70 - 199 mg/dL Blood 03/14/2024 2:21 AM CDT 03/14/2024 2:21 AM CDT us Chadd Toledo DO LAB POCT ORDERABLES - DEVICE Final Result Performing Organization Address [facility] de Phone Number [facility] [employer] [place] [address] * POCT glucose (03/14/2024 1:15 AM CDT) Glucose, POC 192 70 - 199 mg/dL Blood 03/14/2024 1:15 AM CDT 03/14/2024 1:15 AM CDT Chadd Toledo DO LAB POCT ORDERABLES - DEVICE Final Result Performing Organization Address [facility] Co de Phone Number [facility] [employer] [place] [address] * CT Cervical Spine WO Contrast (03/14/2024 1:00 AM CDT) Anatomical Region Laterality Modality Spine N/A Computed Tomogra phy 03/14/2024 1:08 AM CDT Impressions 03/14/2024 10:42 AM CDT 1. Interval C7-T2 posterior instrumented fusion with likely expected subcutaneous and epidural air. ??Evaluation for cord patency is severely limited due to adjacent streak. ?? 2. Infection should be excluded clinically. Dictated by: Kieran Galloway M.D. The radiology attending physician has personally reviewed this study, and had reviewed and/or edited this written report and agrees with it. Electronically signed by: Jonny Sue M.D. Narrative 03/14/2024 10:42 AM CDT EXAMINATION: CT of the cervical spine without contrast HISTORY: Prior C7 fracture, multiple rib fractures, prior cervical spine stenosis, post surgery TECHNIQUE: CT of the cervical spine was performed according to the standard protocol without intravenous contrast. COMPARISON: 03/09/2024 MRI FINDINGS: Interval postsurgical changes of posterior fusion spanning from C2 to T2. ??There is a surgical drain which courses along the decompression bed. ??There is soft tissue gas, stranding and bone grafting material. There is small volume air within the dorsal epidural sac. ??No organized drainable fluid collection. ??Fracture of the inferior posterior C7 vertebral body extending to the posterior element is better seen on recent CT. ??Evaluation of the epidural cord, especially in the lower cervical spine is limited secondary to extensive adjacent streak artifact. Ill defined collection is most pronounced in the left C2 post surgical area with expected air and fluid tracking down.. Partially imaged foramen magnum is not crowded. ??Mastoid air cells and sphenoid sinuses are clear. ??Bilateral carotid bulb calcifications. ??Emphysematous changes within the partially imaged lungs. Procedure Note Jonny Sue MD - 03/14/2024 EXAMINATION: CT of the cervical spine without contrast HISTORY: Prior C7 fracture, multiple rib fractures, prior cervical spine stenosis, post surgery TECHNIQUE: CT of the cervical spine was performed according to the standard protocol without intravenous contrast. COMPARISON: 03/09/2024 MRI FINDINGS: Interval postsurgical changes of posterior fusion [...] adjacent streak artifact. Ill defined collection is most pronounced in the left C2 post surgical area with expected air and fluid tracking down.. Partially imaged foramen magnum is not crowded. Mastoid air cells and sphenoid sinuses are clear. Bilateral carotid bulb calcifications. Emphysematous changes within the partially imaged lungs. IMPRESSION: 1. Interval C7-T2 posterior instrumented fusion with likely expected subcutaneous and epidural air. Evaluation for cord patency is severely limited due to adjacent streak. 2. Infection should be excluded clinically. Dictated by: Kieran Galloawy M.D. The radiology attending physician has personally reviewed this study, and had reviewed and/or edited this written report and agrees with it. Electronically signed by: Jonny Sue M.D. Chadd Toledo DO IMG CT PROCEDURES Fin al Result * POCT glucose (03/14/2024 12:04 AM CDT) Pathologist [facility] Glucose, POC 192 70 - 199 mg/dL Blood 03/14/2024 12:0 4 AM CDT 03/14/2024 12:04 AM CDT Chadd Toledo DO LAB POCT ORDERABLES - DEVICE Final Result [facility] Department [place] [address] * ECG 12 lead (03/13/2024 11:58 PM CDT) Ventricular Rate EKG/Min 96 BPM [facility] Atrial Rate 96 BPM [facility] HI-Interval (MSEC) 208 ms [facility] QRS-Interval (MSEC) 112 ms [facility] QT-Interval (MSEC) 390 ms [facility] QTc 492 ms [facility] P [place] 71 degrees [facility] R [place] 63 degrees [facility] T [place] 64 degrees [facility] Diagnosis Normal sinus rhythm Prolonged QT Abnormal ECG No previous ECGs available Confirmed by CALEB MORALES M.D ([id number]) on 03/14/2024 5:29:02 PM [facility] 03/13/2024 11:5 8 PM CDT 03/14/2024 5:29 PM CDT us Chadd Toledo DO ECG ORDERABLES Final Result Performing Organization Address [facility] Co de Phone Number [facility] * (ABNORMAL) POCT glucose (03/13/2024 11:13 PM CDT) Glucose, POC 209(H) 70 - 199 mg/dL Blood 03/13/2024 11:1 3 PM CDT 03/13/2024 11:13 PM CDT Chadd Toledo DO LAB POCT ORDERABLES - DEVICE Final Result Performing Organization Address [facility] de Phone Number [facility] Department [place] [address] * POCT glucose (03/13/2024 10:08 PM CDT) Glucose, POC 196 70 - 199 mg/dL Blood 03/13/2024 10:0 8 PM CDT 03/13/2024 10:08 PM CDT Chadd Toledo DO LAB POCT ORDERABLES - DEVICE Final Result Performing Organization Address [facility] Co de Phone Number [facility] Department [place] [address] * aPTT (03/13/2024 10:04 PM CDT) aPTT 28 28 - 38 sec Comment: Interpretive Data Heparin therapeutic range: 66.0 - 100.0 seconds. Range based on correlation with therapeutic heparin activity range of 0.3 - 0.7 Units/mL. Current interpretive data was last revised on 2023. Blood 03/13/2024 10:0 4 PM CDT 03/13/2024 10:24 PM CDT Chadd Toledo DO LAB BLOOD ORDERABLES Final Result Performing Organization Address [facility] de Phone Number [facility] [employer] [place] [place] [address] * (ABNORMAL) Protime-INR (03/13/2024 10:04 PM CDT) Pathologist [facility] PT 13.7(H) 9.7 - 13.0 sec INR 1.26(H) 0.90 - 1.20 [facility] Comment: Interpretive data Oral anticoagulant therapeutic ranges: Venous thromboembolism prophylaxis or treatment: 2.0-3.0 CARDIOLOGY Standard range: 2.0-3.0 High-intensity range: 2.5-3.5 Refer to indication-specific guidelines for appropriate target ranges for prosthetic heart valve replacement. Current interpretive data was last revised on 2019. Blood 03/13/2024 10:0 4 PM CDT 03/13/2024 10:24 PM CDT Chadd Toledo DO LAB BLOOD ORDERABLES Final Result Performing Organization Address [facility] de Phone Number [facility] Department of [employer] [place] [address] * Critical Care (03/13/2024 10:00 PM CDT) Narrative Dieter Bass MD - 03/13/2024 10:00 PM CDT Dieter Bass MD ? 03/14/2024 ??3:45 AM Critical Care Performed by: Dieter Bass MD Authorized by: Dieter Bass MD ?? CRITICAL CARE: ??Team: ??SICU BLUE ??Shift: ??PM ??Level of Billing: ??Critical Care ??My time spent with this patient was 40 minutes: Critical Provider Statement: I have seen and examined the patient on this day of service. I have reviewed and confirmed the history, physical exam, laboratory and radiologic data as documented in the signed ICU note. I have reviewed and discussed my treatment plan with the ICU team and other medical/programmer analyst consultant staff, making frequent assessments and decisions regarding this patient's complex medical care. Critical Care time was exclusive of time spent performing separately billed procedures, treating other patients, and teaching. This time was in addition to and separate from critical care provided by other practitioners in my group on this day of service. Critical Care was necessary to treat or prevent imminent or life-threatening deterioration of the following conditions: ? Acute pain/acute postoperative pain ?? Acute respiratory insufficiency ?? Spinal cord injury/spine fracture and Multiple rib fractures ??This time was spent by me doing the following: ? Acute pain control and Frequent neurologic exams ?? Initiation/active titration of vasoactive medications ?? Active and frequent reassessment of respiratory status and oxygen requirements and Incentive spirometry, pulmonary toilet ?? Spinal immobilization ?? I spent time reviewing and interpreting data from bedside monitors, laboratory results, and imaging, I spent time discussing the management of this critically ill patient with consultants and the medical staff and I spent time documenting in the medical record us Dieter Bass MD IN CLINIC/BEDSIDE ORDERABLES Final Result * Lidocaine level (03/13/2024 10:00 PM CDT) Lidocaine (Xylocaine) 2.4 1.5 - 5.0 mcg/mL Blood 03/13/2024 10:0 0 PM CDT 03/13/2024 10:17 PM CDT us Chadd Toledo DO LAB BLOOD ORDERABLES Final Result [facility] Department [place] [address] * eGFR (03/13/2024 10:00 PM CDT) eGFR >90 >=60 mL/min/1. 73 m2 [...] interpretive data was last reviewed 2021. Blood 03/13/2024 10:0 0 PM CDT 03/13/2024 10:17 PM CDT us Chadd Toledo DO LAB BLOOD ORDERABLES Final Result [facility] Department [place] [address] * (ABNORMAL) CBC without differential (03/13/2024 10:00 PM CDT) Pathologist [facility] WBC 5.0 3.8 - 9.9 K/cumm Hgb 10.2(L) 11.9 - 15.5 g/dL [facility] Hct 30.8(L) 35.6 - 45.5 % [facility] Plt 107(L) 150 - 400 K/cumm [facility] MPV 8.4(L) 9.1 - 12.3 fL [facility] RBC 3.69(L) 3.90 - 5.20 M/cumm [facility] MCV 83.5 81.3 - 96.4 fL [facility] MCH 27.6 27.1 - 33.3 pg [facility] MCHC 33.1 32.3 - 35.7 g/dL [facility] RDW CV 14.1 11.1 - 14.9 % [facility] RDW SD 42.5 35.7 - 48.1 fL [facility] NRBC abs 0.00 0.00 - 0.01 K/cumm [facility] Blood 03/13/2024 10:0 0 PM CDT 03/13/2024 10:22 PM CDT Chadd Toledo LAB BLOOD ORDERABLES Final Result [facility] [employer] [place] [place] [address] * Phosphorus (03/13/2024 10:00 PM CDT) Phosphorus, pl 3.1 2.3 - 4.5 mg/dL Blood 03/13/2024 10:0 0 PM CDT 03/13/2024 10:17 PM CDT Chadd Toledo LAB BLOOD ORDERABLES Final Result [facility] [employer] [place] [place] [address] * Magnesium (03/13/2024 10:00 PM CDT) Magnesium 1.6 1.4 - 2.5 mg/dL Blood 03/13/2024 10:0 0 PM CDT 03/13/2024 10:17 PM CDT Chadd Toledo DO LAB BLOOD ORDERABLES Final Result [facility] Department [place] [address] * (ABNORMAL) Basic metabolic panel (03/13/2024 10:00 PM CDT) Pathologist [facility] Sodium 136 135 - 145 mmol/L Potassium, pl 4.3 3.3 - 4.9 mmol/L [facility] Chloride 100 97 - 110 mmol/L [facility] CO2 30 22 - 32 mmol/L [facility] Anion gap 6 2 - 15 mmol/L [facility] BUN 11 6 - 25 mg/dL [facility] Creatinine 0.49(L) 0.60 - 1.10 mg/dL [facility] Glucose 203(H) 70 - 199 mg/dL [facility] Comment: Interpretive Data Fasting glucose >/= 126 [...] interpretive data was last revised 2022. Calcium 8.6 8.5 - 10.3 mg/dL [facility] Blood 03/13/2024 10:0 0 PM CDT 03/13/2024 10:17 PM CDT us Chadd Toledo DO LAB BLOOD ORDERABLES Final Result Performing Organization Address City/[facility]/ZIP Co de Phone Number [facility] Department [place] [address] * FL Fluoroscopy < 1 Hour (03/13/2024 9:23 PM CDT) Narrative [email or web address] - 03/13/2024 9:23 PM CDT The images from this study are not interpreted by Radiology. ??Please refer to the physician's procedure / OR operative note. Marcio Tapia MD IMG FLUOROSCOPY PROCEDURES Komal l Result Performing Organization Address City/State/[facility] Co de Phone Number [email or web address] * (ABNORMAL) POC Blood Gas and Chemistries, Arterial - (03/13/2024 8:57 PM CDT) pH, Art POC 7.39 7.35 - 7.45 pCO2, Art POC 48(H) 35 - 45 mmHg [facility] pO2, Art POC 119(H) 83 - 108 mmHg [facility] Na, POC 134(L) 135 - 145 mmol/L [facility] K POC 4.2 3.3 - 4.9 mmol/L [facility] Comment: Interpretive Data Not all point of care methods assess for hemolysis. Confirm with instrument and retest K+ if not consistent with clinical signs and symptoms. Current Interpretive Data was last revised on 2023. Cl, POC 104 97 - 110 mmol/L [facility] Ionized Ca, POC 4.90 4.50 - 5.10 mg/dL [facility] Glucose, POC 226(H) 70 - 199 mg/dL [facility] Lactate, POC 1.6 0.7 - 2.2 mmol/L [facility] SO2 (caleb) arterial 99(H) 90 - 95 % [facility] Base excess, POC 3.5 mmol/L [facility] HCO3, Art POC 29 20 - 30 mmol/L [facility] Hct, POC 32.0(L) 36.3 - 45.3 % [facility] Total Hb, POC 10.7(L) 11.9 - 15.5 g/dL [facility] Blood 03/13/2024 8:57 PM CDT 03/13/2024 8:57 PM CDT Chadd Toledo DO LAB POCT ORDERABLES - DEVICE Final Result [facility] Department [place] [address] * XR Spine Cervical 2 or 3 Views (03/13/2024 8:51 PM CDT) Anatomical Region Laterality Modality Spine N/A Computed Radiogr aphy 03/13/2024 9:01 PM CDT Impressions 03/13/2024 9:05 PM CDT Posterior spinal instrumented fusion of C2-T3. ??The patient's known cervical and thoracic spinal fractures are not well visualized. ??A halo device is in place. ??An endotracheal tube terminates in the upper thoracic trachea. ??No metallic foreign body is seen. The Non Critical results were discussed with the OR staff by Dr. Hernandez on 03/13/2024 at 9:01 PM Dictated by: Robbin Hernandez MD The radiology attending physician has personally reviewed this study, and had reviewed and/or edited this written report and agrees with it. Electronically signed by: Sushil Contreras M.D. Narrative 03/13/2024 9:05 PM CDT EXAMINATION: XR SPINE CERVICAL 2 OR 3 VIEWS HISTORY: Concern for retained fragment of bone scalpel COMPARISON: Cervical spine radiographs 03/09/2024. Procedure Note Sushil Contreras MD - 03/13/2024 EXAMINATION: XR SPINE CERVICAL 2 OR 3 VIEWS HISTORY: Concern for retained fragment of bone scalpel COMPARISON: Cervical spine radiographs 03/09/2024. IMPRESSION: Posterior spinal instrumented fusion of C2-T3. The [...] agrees with it. Electronically signed by: Sushil Tahir Short, M.D. us Marcio Tapia MD IMG XR PROCEDURES Final Result * Transfuse RBC (03/13/2024 7:25 PM CDT) Blood Rafael Breaux MD BLOOD TRANSFUSION ORDERA BLES Final Result [facility] Department [place] [address] * (ABNORMAL) POC Blood Gas and Chemistries, Arterial - (03/13/2024 7:14 PM CDT) pH, Art POC 7.38 7.35 - 7.45 pCO2, Art POC 47(H) 35 - 45 mmHg [facility] pO2, Art POC 111(H) 83 - 108 mmHg [facility] Na, POC 135 135 - 145 mmol/L [facility] K POC 4.2 3.3 - 4.9 mmol/L [facility] Comment: Interpretive Data Not all point of care methods assess for hemolysis. Confirm with instrument and retest K+ if not consistent with clinical signs and symptoms. Current Interpretive Data was last revised on 2023. Cl, POC 104 97 - 110 mmol/L [facility] Ionized Ca, POC 5.50(H) 4.50 - 5.10 mg/dL [facility] Glucose, POC 218(H) 70 - 199 mg/dL [facility] Lactate, POC 1.7 0.7 - 2.2 mmol/L [facility] SO2 (caleb) arterial 98(H) 90 - 95 % [facility] Base excess, POC 2.2 mmol/L [facility] HCO3, Art POC 28 20 - 30 mmol/L [facility] Hct, POC 30.0(L) 36.3 - 45.3 % [facility] Total Hb, POC 9.9(L) 11.9 - 15.5 g/dL [facility] Blood 03/13/2024 7:1 4 PM CDT 03/13/2024 7:14 PM CDT Chadd Toledo DO LAB POCT ORDERABLES - DEVICE Final Result Performing Organization Address [facility] [place] [address] * Transfuse plasma (03/13/2024 6:12 PM CDT) Blood us Rafael Breaux MD BLOOD TRANSFUSION ORDERA BLES Final Result Performing Organization Address [facility] de Phone Number [facility] [employer] [place] [place] [address] * Transfuse RBC (03/13/2024 5:46 PM CDT) Blood Rafael Breaux MD BLOOD TRANSFUSION ORDERA BLES Final Result Performing Organization Address [facility] [place] [address] * Prepare plasma: 2 Units (03/13/2024 5:45 PM CDT) Product code [id number] Unit Number [id number] D [facility] Product Blood Type OPOS [facility] Dispense Status PRESUMED TRANSFUSED [facility] Blood (Blood, Venous) 03/13/2024 5:45 PM CDT 03/13/2024 5:45 PM CDT Narrative [facility] - 03/14/2024 12:46 AM CDT Date required:-[id number] FFP # of Units:-2-Units Reasons:-Immediate need for surgical intervention Rafael Breaux MD BLOOD BANK PRODUCT ORDER LAKESHIA Final Result Performing Organization Address [facility] Co de Phone Number [place], [place] [id number] * (ABNORMAL) POCT prothrombin time (03/13/2024 5:33 PM CDT) PT, POC 21.1(H) 11.7 - 16.6 sec INR, POC 1.6(H) 0.9 - 1.3 [facility] Blood 03/13/2024 5:33 PM CDT 03/13/2024 5:33 PM CDT Chadd Elias Toledo DO LAB POCT ORDERABLES - DEVICE Final Result Performing Organization Address [facility] Co de Phone Number [facility] [employer] [place] [place] [address] * (ABNORMAL) POCT Partial thromboplastin time (PTT) (03/13/2024 5:33 PM CDT) Pathologist [facility] APTT, POC 28.4(L) 32.5 - 46.1 sec Blood 03/13/2024 5:33 PM CDT 03/13/2024 5:33 PM CDT Chadd Elias Toledo DO LAB POCT ORDERABLES - DEVICE Final Result Performing Organization Address [facility] de Phone Number [facility] [employer] [place] [place] [address] * (ABNORMAL) POCT platelet count and hematocrit (03/13/2024 5:33 PM CDT) [facility] Hematocrit POC 31.3(L) 35.6 - 45.5 % Platelet POC 155 150 - 400 K/cumm [facility] Blood 03/13/2024 5:33 PM CDT 03/13/2024 5:33 PM CDT Chaddtorres Toledo DO LAB POCT ORDERABLES - DEVICE Final Result Performing Organization Address [facility] Co de Phone Number [facility] [employer] [place] [place] [address] * (ABNORMAL) POC Blood Gas and Chemistries, Arterial - (03/13/2024 5:33 PM CDT) pH, Art POC 7.39 7.35 - 7.45 pCO2, Art POC 45 35 - 45 mmHg [facility] pO2, Art POC 129(H) 83 - 108 mmHg [facility] Na, POC 135 135 - 145 mmol/L [facility] K POC 4.2 3.3 - 4.9 mmol/L [facility] Comment: Interpretive Data Not all point of care methods assess for hemolysis. Confirm with instrument and retest K+ if not consistent with clinical signs and symptoms. Current Interpretive Data was last revised on 2023. Cl, POC 104 97 - 110 mmol/L [facility] Ionized Ca, POC 4.62 4.50 - 5.10 mg/dL [facility] Glucose, POC 190 70 - 199 mg/dL [facility] Lactate, POC 1.8 0.7 - 2.2 mmol/L [facility] SO2 (caleb) arterial 100(H) 90 - 95 % [facility] Base excess, POC 1.8 mmol/L [facility] HCO3, Art POC 26 20 - 30 mmol/L [facility] Hct, POC 33.0(L) 36.3 - 45.3 % [facility] Total Hb, POC 10.9(L) 11.9 - 15.5 g/dL [facility] Blood 03/13/2024 5:33 PM CDT 03/13/2024 5:33 PM CDT Chdad Toledo DO LAB POCT ORDERABLES - DEVICE Final Result [facility] Department [place] [address] * Critical Care (03/13/2024 5:04 PM CDT) Narrative Carmen Martins MD - 03/13/2024 5:04 PM CDT Carmen Martins MD ? 03/13/2024 ??7:13 PM Critical Care Performed by: Carmen Martins MD Authorized by: Carmen Martins MD ?? CRITICAL CARE: ??Team: ??SICU BLUE ??Shift: ??AM ??Level of Billing: ??Critical Care ??My time spent with this patient was 40 minutes: Critical Provider Statement: I have seen and examined the patient on this day of service. I have reviewed and confirmed the history, physical exam, laboratory and radiologic data as documented in the signed ICU note. I have reviewed and discussed my treatment plan with the ICU team and other medical/programmer analyst consultant staff, making frequent assessments and decisions regarding this patient's complex medical care. Critical Care time was exclusive of time spent performing separately billed procedures, treating other patients, and teaching. This time was in addition to and separate from critical care provided by other practitioners in my group on this day of service. Critical Care was necessary to treat or prevent imminent or life-threatening deterioration of the following conditions: ? Acute pain/acute postoperative pain ?? Acute respiratory insufficiency ?? Spinal cord injury/spine fracture ??This time was spent by me doing the following: ? Serial bedside patient exams ?? Acute pain control ?? Initiation/active titration of vasoactive medications ?? Active and frequent reassessment of respiratory status and oxygen requirements and Incentive spirometry, pulmonary toilet ?? Spinal immobilization ?? I spent time reviewing and interpreting data from bedside monitors, laboratory results, and imaging, I spent time discussing the management of this critically ill patient with consultants and the medical staff and I spent time documenting in the medical record Carmen Martins MD IN CLINIC/BEDSIDE ORDER LAKESHIA Final Result * POCT glucose (03/13/2024 4:35 PM CDT) Glucose, POC 144 70 - 199 mg/dL Blood 03/13/2024 4:35 PM CDT 03/13/2024 4:35 PM CDT us Chadd Toledo DO LAB POCT ORDERABLES - DEVICE Final Result [facility] Department [place] [address] * Prepare RBC: 2 Units (03/13/2024 4:20 PM CDT) Product code [id number] Unit Number [id number] L [facility] Product Blood Type ONEG [facility] Dispense Status [facility]ED [facility] Product code [id number] [facility] Unit Number [id number]- Y [facility] Product Blood Type ONEG [facility] Dispense Status PRESUMED TRANSFUSED [facility] Blood 03/13/2024 4:20 PM CDT 03/13/2024 4:20 PM CDT Narrative [facility] - 03/14/2024 12:46 AM CDT Are special requirements needed? (All products are leukoreduced and CMV- safe)- >No Date required:-[id number] LRRBC # of [id number] Reasons:-Intra-op transfusion} Rafael Breaux MD BLOOD BANK PRODUCT ORDER LAKESHIA Final Result [facility] Department of [employer] [place] [place] [address] * POCT glucose (03/13/2024 2:53 PM CDT) [facility] Glucose, POC 101 70 - 199 mg/dL Blood 03/13/2024 2:53 PM CDT 03/13/2024 2:53 PM CDT Chadd Toledo DO LAB POCT ORDERABLES - DEVICE Final Result [facility] [employer] [place] [place] [address] * POCT glucose (03/13/2024 2:01 PM CDT) Pathologist [facility] Glucose, POC 114 70 - 199 mg/dL Blood 03/13/2024 2:01 PM CDT 03/13/2024 2:01 PM CDT Chadd Toledo DO LAB POCT ORDERABLES - DEVICE Final Result Performing Organization Address City/[facility] Co de Phone Number [facility] [employer] [place] [place] [address] * POCT glucose (03/13/2024 12:57 PM CDT) Glucose, POC 126 70 - 199 mg/dL Blood 03/13/2024 12:5 7 PM CDT 03/13/2024 12:57 PM CDT Chadd Toledo DO LAB POCT ORDERABLES - DEVICE Final Result Performing Organization Address [facility] [place] [address] * POCT glucose (03/13/2024 12:00 PM CDT) Glucose, POC 135 70 - 199 mg/dL Blood 03/13/2024 12:0 0 PM CDT 03/13/2024 12:00 PM CDT Chadd Toledo DO LAB POCT ORDERABLES - DEVICE Final Result Performing Organization Address [facility] Co de Phone Number [facility] [employer] [place] [place] [address] * POCT glucose (03/13/2024 10:57 AM CDT) Glucose, POC 138 70 - 199 mg/dL Blood 03/13/2024 10:5 7 AM CDT 03/13/2024 10:57 AM CDT Chadd Toledo DO LAB POCT ORDERABLES - DEVICE Final Result Performing Organization Address City/[facility] Co de Phone Number [facility] [employer] [place] [place] [address] * POCT glucose (03/13/2024 9:55 AM CDT) Glucose, POC 174 70 - 199 mg/dL Blood 03/13/2024 9:55 AM CDT 03/13/2024 9:55 AM CDT Chadd Toledo DO LAB POCT ORDERABLES - DEVICE Final Result Performing Organization Address City/[facility] [place] [address] * POCT glucose (03/13/2024 8:57 AM CDT) Glucose, POC 163 70 - 199 mg/dL Blood 03/13/2024 8:57 AM CDT 03/13/2024 8:57 AM CDT Chadd Toledo LAB POCT ORDERABLES - DEVICE Final Result Performing Organization Address [facility] [place] [address] * POCT glucose (03/13/2024 8:05 AM CDT) Glucose, POC 168 70 - 199 mg/dL Blood 03/13/2024 8:05 AM CDT 03/13/2024 8:05 AM CDT Chadd Toledo LAB POCT ORDERABLES - DEVICE Final Result Performing Organization Address [facility] [place] [address] * POCT glucose (03/13/2024 7:12 AM CDT) Glucose, POC 192 70 - 199 mg/dL Blood 03/13/2024 7:12 AM CDT 03/13/2024 7:12 AM CDT us Chadd Toledo DO LAB POCT ORDERABLES - DEVICE Final Result [facility] Department [place] [address] * XR Chest 1 View (03/13/2024 7:10 AM CDT) Anatomical Region Laterality Modality Body, Chest N/A Digital Radiogra phy 03/13/2024 10:1 9 AM CDT Impressions 03/13/2024 3:19 PM CDT The current study is compared with the prior radiograph dated 03/11/2024. Evaluation of the lungs is limited due to overlying instrumentation (Halo device). ??There is interval placement of a left peripherally inserted central catheter. ??Its course is difficult to appreciate but can be followed to the superior vena cava. The cardiomediastinal silhouette appears unchanged. ??There are hazy opacities the left lower lung which could be suggestive of a posterior layering pleural effusion. ??There is no pneumothorax. Dictated by: Anton Forrest M.D. The radiology attending physician has personally reviewed this study, and had reviewed and/or edited this written report and agrees with it. Electronically signed by: Tam Chou M.D. Narrative 03/13/2024 3:19 PM CDT EXAMINATION: 1 view chest radiograph Procedure Note Tam Chou MD - 03/13/2024 EXAMINATION: 1 view chest radiograph IMPRESSION: The current study is compared with the prior radiograph dated 03/11/2024. Evaluation of the lungs is limited due to overlying instrumentation (Halo device). There is interval placement of a left peripherally inserted central catheter. Its course [...] it. Electronically signed by: Tam Chou M.D. Chadd Toledo DO IMG XR PROCEDURES Fin al Result * (ABNORMAL) POCT glucose (03/13/2024 5:57 AM CDT) Glucose, POC 207(H) 70 - 199 mg/dL Blood 03/13/2024 5:57 AM CDT 03/13/2024 5:57 AM CDT Chadd Toledo DO LAB POCT ORDERABLES - DEVICE Final Result Performing Organization Address [facility] Co de Phone Number [facility] Department of [employer] [place] [place] [address] * Lidocaine level (03/13/2024 5:50 AM CDT) Lidocaine (Xylocaine) 2.1 1.5 - 5.0 mcg/mL Blood 03/13/2024 5:50 AM CDT 03/13/2024 6:05 AM CDT Narrative [facility] - 03/13/2024 6:29 AM CDT Draw 24 hours after infusion started. Chadd Toledo DO LAB BLOOD ORDERABLES Final Result Performing Organization Address [facility]/ZIP Co de Phone Number [facility] Department of [employer] [place] [address] * POCT glucose (03/13/2024 5:02 AM CDT) Glucose, POC 187 70 - 199 mg/dL Blood 03/13/2024 5:02 AM CDT 03/13/2024 5:02 AM CDT Chadd Elias Craft DO LAB POCT ORDERABLES - DEVICE Final Result Performing Organization Address City/[facility]/ZIP Co de Phone Number [facility] [employer] [place] [place] [address] * POCT glucose (03/13/2024 3:56 AM CDT) Glucose, POC 152 70 - 199 mg/dL Blood 03/13/2024 3:56 AM CDT 03/13/2024 3:56 AM CDT Chadd Toledo DO LAB POCT ORDERABLES - DEVICE Final Result Performing Organization Address [facility] [place] [address] * POCT glucose (03/13/2024 3:04 AM CDT) Glucose, POC 178 70 - 199 mg/dL Blood 03/13/2024 3:04 AM CDT 03/13/2024 3:04 AM CDT Chadd Toledo DO LAB POCT ORDERABLES - DEVICE Final Result Performing Organization Address [facility] Co de Phone Number [facility] [employer] [place] [address] * (ABNORMAL) POCT glucose (03/13/2024 1:55 AM CDT) Glucose, POC 203(H) 70 - 199 mg/dL Blood 03/13/2024 1:55 AM CDT 03/13/2024 1:55 AM CDT Chadd Toledo DO LAB POCT ORDERABLES - DEVICE Final Result Performing Organization Address City/[facility] Co de Phone Number [facility] [place] [address] * POCT glucose (03/13/2024 12:57 AM CDT) Glucose, POC 119 70 - 199 mg/dL Blood 03/13/2024 12:5 7 AM CDT 03/13/2024 12:57 AM CDT Chadd Toledo DO LAB POCT ORDERABLES - DEVICE Final Result Performing Organization Address [facility] de Phone Number [facility] [employer] [place] [address] * POCT glucose (03/12/2024 11:22 PM CDT) Glucose, POC 140 70 - 199 mg/dL Blood 03/12/2024 11:2 2 PM CDT 03/12/2024 11:22 PM CDT Chadd Toledo DO LAB POCT ORDERABLES - DEVICE Final Result Performing Organization Address [facility] de Phone Number [facility] [employer] [place] [address] * POCT glucose (03/12/2024 10:40 PM CDT) Glucose, POC 155 70 - 199 mg/dL Blood 03/12/2024 10:4 0 PM CDT 03/12/2024 10:40 PM CDT Chadd Toledo DO LAB POCT ORDERABLES - DEVICE Final Result Performing Organization Address [facility] de Phone Number [facility] [employer] [place] [address] * eGFR (03/12/2024 7:51 PM CDT) eGFR >90 >=60 mL/min/1. 73 m2 [...] interpretive data was last reviewed 2021. Blood 03/12/2024 7:51 PM CDT 03/12/2024 8:19 PM CDT us Chadd Toledo DO LAB BLOOD ORDERABLES Final Result [facility] Department [place] [address] * aPTT (03/12/2024 7:51 PM CDT) aPTT 29 28 - 38 sec Comment: Interpretive Data Heparin therapeutic range: 66.0 - 100.0 seconds. Range based on correlation with therapeutic heparin activity range of 0.3 - 0.7 Units/mL. Current interpretive data was last revised on 2023. Blood 03/12/2024 7:51 PM CDT 03/12/2024 8:33 PM CDT us Jane Hoover MD LAB BLOOD ORDERABLES Komal l Result Performing Organization Address [facility] de Phone Number [facility] [employer] [place] [address] * Protime-INR (03/12/2024 7:51 PM CDT) [facility] PT 12.9 9.7 - 13.0 sec INR 1.19 0.90 - 1.20 [facility] Comment: Interpretive data Oral anticoagulant therapeutic ranges: Venous thromboembolism prophylaxis or treatment: 2.0-3.0 CARDIOLOGY Standard range: 2.0-3.0 High-intensity range: 2.5-3.5 Refer to indication-specific guidelines for appropriate target ranges for prosthetic heart valve replacement. Current interpretive data was last revised on 2019. Blood 03/12/2024 7:51 PM CDT 03/12/2024 8:33 PM CDT Jane Hoover MD LAB BLOOD ORDERABLES Komal l Result Performing Organization Address [facility] de Phone Number [facility] Department of [employer] [place] [place] [address] * (ABNORMAL) CBC without differential (03/12/2024 7:51 PM CDT) [facility] WBC 4.8 3.8 - 9.9 K/cumm Hgb 10.5(L) 11.9 - 15.5 g/dL [facility] Hct 31.4(L) 35.6 - 45.5 % [facility] Plt 152 150 - 400 K/cumm [facility] MPV 9.1 9.1 - 12.3 fL [facility] RBC 3.79(L) 3.90 - 5.20 M/cumm [facility] MCV 82.8 81.3 - 96.4 fL [facility] MCH 27.7 27.1 - 33.3 pg [facility] MCHC 33.4 32.3 - 35.7 g/dL [facility] RDW CV 13.9 11.1 - 14.9 % [facility] RDW SD 41.3 35.7 - 48.1 fL [facility] NRBC abs 0.00 0.00 - 0.01 K/cumm [facility] Blood 03/12/2024 7:51 PM CDT 03/12/2024 8:19 PM CDT Chadd Elias Tre DO LAB BLOOD ORDERABLES Final Result Performing Organization Address City/[facility]/ZIP Co de Phone Number [facility] [employer] [place] [address] * Phosphorus (03/12/2024 7:51 PM CDT) Pathologist [facility] Phosphorus, pl 3.2 2.3 - 4.5 mg/dL Blood 03/12/2024 7:51 PM CDT 03/12/2024 8:19 PM CDT Chadd Toledo DO LAB BLOOD ORDERABLES Final Result Performing Organization Address [facility] Co de Phone Number [facility] [employer] [place] [place] [address] * Magnesium (03/12/2024 7:51 PM CDT) [facility] Magnesium 1.8 1.4 - 2.5 mg/dL Blood 03/12/2024 7:51 PM CDT 03/12/2024 8:19 PM CDT Chadd Elias Tre LAB BLOOD ORDERABLES Final Result Performing Organization Address City/[facility] Co de Phone Number [facility] [employer] [place] [address] * (ABNORMAL) Basic metabolic panel (03/12/2024 7:51 PM CDT) Pathologist [facility] Sodium 136 135 - 145 mmol/L Potassium, pl 4.0 3.3 - 4.9 mmol/L [facility] Chloride 98 97 - 110 mmol/L [facility] CO2 30 22 - 32 mmol/L [facility] Anion gap 8 2 - 15 mmol/L [facility] BUN 10 6 - 25 mg/dL [facility] Creatinine 0.69 0.60 - 1.10 mg/dL [facility] Glucose 224(H) 70 - 199 mg/dL [facility] Comment: Interpretive Data Fasting glucose >/= 126 [...] interpretive data was last revised 2022. Calcium 8.6 8.5 - 10.3 mg/dL [facility] Blood 03/12/2024 7:51 PM CDT 03/12/2024 8:19 PM CDT us Chadd Toledo DO LAB BLOOD ORDERABLES Final Result [facility] Department of [employer] [place] [place] [address] * (ABNORMAL) POCT glucose (03/12/2024 7:50 PM CDT) [facility] Glucose, POC 228(H) 70 - 199 mg/dL Blood 03/12/2024 7:50 PM CDT 03/12/2024 7:50 PM CDT Chadd Toledo DO LAB POCT ORDERABLES - DEVICE Final Result [facility] [place] [address] * POCT glucose (03/12/2024 5:58 PM CDT) Glucose, POC 167 70 - 199 mg/dL Blood 03/12/2024 5:58 PM CDT 03/12/2024 5:58 PM CDT Chaddtorres Toledo DO LAB POCT ORDERABLES - DEVICE Final Result Performing Organization Address [facility] Co de Phone Number [facility] [employer] [place] [address] * (ABNORMAL) POCT glucose (03/12/2024 5:01 PM CDT) Glucose, POC 221(H) 70 - 199 mg/dL Blood 03/12/2024 5:01 PM CDT 03/12/2024 5:01 PM CDT Chaddtorres Griffin Efetorres DO LAB POCT ORDERABLES - DEVICE Final Result Performing Organization Address [facility] Co de Phone Number [facility] [employer] [place] [address] * (ABNORMAL) POCT glucose (03/12/2024 4:19 PM CDT) Glucose, POC 215(H) 70 - 199 mg/dL Blood 03/12/2024 4:19 PM CDT 03/12/2024 4:19 PM CDT Chaddtorres Toledo DO LAB POCT ORDERABLES - DEVICE Final Result Performing Organization Address [facility] Co de Phone Number [facility] [employer] [place] [address] * (ABNORMAL) POCT glucose (03/12/2024 3:08 PM CDT) Glucose, POC 278(H) 70 - 199 mg/dL Blood 03/12/2024 3:08 PM CDT 03/12/2024 3:08 PM CDT us Chadd Toledo DO LAB POCT ORDERABLES - DEVICE Final Result [facility] Department [place] [address] * Critical Care (03/12/2024 2:30 PM CDT) Narrative Carmen Martins MD - 03/12/2024 2:30 PM CDT Carmen Martins MD ? 03/12/2024 ??2:34 PM Critical Care Performed by: Carmen Martins MD Authorized by: Carmen Martins MD ?? CRITICAL CARE: ??Team: ??SICU BLUE ??Shift: ??AM ??Level of Billing: ??Critical Care ??My time spent with this patient was 60 minutes: Critical Provider Statement: I have seen and examined the patient on this day of service. I have reviewed and confirmed the history, physical exam, laboratory and radiologic data as documented in the signed ICU note. I have reviewed and discussed my treatment plan with the ICU team and other medical/programmer analyst consultant staff, making frequent assessments and decisions regarding this patient's complex medical care. Critical Care time was exclusive of time spent performing separately billed procedures, treating other patients, and teaching. This time was in addition to and separate from critical care provided by other practitioners in my group on this day of service. Critical Care was necessary to treat or prevent imminent or life-threatening deterioration of the following conditions: ? Acute pain/acute postoperative pain ?? Spinal cord injury/spine fracture and Multiple rib fractures ??This time was spent by me doing the following: ? Serial bedside patient exams ?? Acute pain control ?? Initiation/active titration of vasoactive medications ?? Active and frequent reassessment of respiratory status and oxygen requirements and Incentive spirometry, pulmonary toilet ?? Spinal immobilization ?? I spent time discussing the management of this critically ill patient with consultants and the medical staff, I spent time documenting in the medical record and I spent time reviewing and interpreting data from bedside monitors, laboratory results, and imaging us Carmen Martins MD IN CLINIC/BEDSIDE ORDER LAKESHIA Final Result * POCT glucose (03/12/2024 1:06 PM CDT) Glucose, POC 161 70 - 199 mg/dL [facility] Blood 03/12/2024 1:06 PM CDT 03/12/2024 1:06 PM CDT us Chadd Toledo DO LAB POCT ORDERABLES - DEVICE Final Result [facility] Department [place] [address] * POCT glucose (03/12/2024 11:21 AM CDT) Glucose, POC 116 70 - 199 mg/dL [facility] Blood 03/12/2024 11:2 1 AM CDT 03/12/2024 11:21 AM CDT us Chadd Elias Tre DO LAB POCT ORDERABLES - DEVICE Final Result Performing Organization Address City/[facility]/ZIP Co de Phone Number [facility] Department of [employer] [place] [place] [address] * POCT glucose (03/12/2024 9:15 AM CDT) Glucose, POC 114 70 - 199 mg/dL Blood 03/12/2024 9:15 AM CDT 03/12/2024 9:15 AM CDT Chadd Elias Efetorres DO LAB POCT ORDERABLES - DEVICE Final Result Performing Organization Address City/[facility]/ZIP Co de Phone Number [facility] [employer] [place] [address] * POCT glucose (03/12/2024 7:11 AM CDT) Glucose, POC 127 70 - 199 mg/dL Blood 03/12/2024 7:11 AM CDT 03/12/2024 7:11 AM CDT Chadd Toledo DO LAB POCT ORDERABLES - DEVICE Final Result Performing Organization Address [facility] de Phone Number [facility] [place] [address] * Lidocaine level (03/12/2024 6:17 AM CDT) Lidocaine (Xylocaine) 1.7 1.5 - 5.0 mcg/mL Blood 03/12/2024 6:17 AM CDT 03/12/2024 6:44 AM CDT Narrative [facility] - 03/12/2024 8:45 AM CDT Draw 24 hours after infusion started. Chadd Toledo DO LAB BLOOD ORDERABLES Final Result Performing Organization Address [facility] Co de Phone Number [facility] [place] [address] * POCT glucose (03/12/2024 6:16 AM CDT) Glucose, POC 126 70 - 199 mg/dL Blood 03/12/2024 6:16 AM CDT 03/12/2024 6:16 AM CDT Chadd Toledo DO LAB POCT ORDERABLES - DEVICE Final Result Performing Organization Address [facility] [place] [address] * POCT glucose (03/12/2024 5:05 AM CDT) Glucose, POC 146 70 - 199 mg/dL Blood 03/12/2024 5:05 AM CDT 03/12/2024 5:05 AM CDT us Chadd Toledo DO LAB POCT ORDERABLES - DEVICE Final Result Performing Organization Address [facility] Co de Phone Number [facility] [employer] [place] [address] * POCT glucose (03/12/2024 4:19 AM CDT) Glucose, POC 155 70 - 199 mg/dL Blood 03/12/2024 4:19 AM CDT 03/12/2024 4:19 AM CDT Chadd Toledo DO LAB POCT ORDERABLES - DEVICE Final Result Performing Organization Address [facility] [place] [address] * POCT glucose (03/12/2024 3:10 AM CDT) Glucose, POC 195 70 - 199 mg/dL Blood 03/12/2024 3:10 AM CDT 03/12/2024 3:10 AM CDT Chadd Toledo DO LAB POCT ORDERABLES - DEVICE Final Result Performing Organization Address [facility] Co de Phone Number [facility] [employer] [place] [address] * POCT glucose (03/12/2024 1:07 AM CDT) Glucose, POC 165 70 - 199 mg/dL Blood 03/12/2024 1:07 AM CDT 03/12/2024 1:07 AM CDT us Chadd Toledo DO LAB POCT ORDERABLES - DEVICE Final Result Performing Organization Address [facility] Co de Phone Number [facility] [employer] [place] [address] * POCT glucose (03/12/2024 12:28 AM CDT) Glucose, POC 181 70 - 199 mg/dL Blood 03/12/2024 12:2 8 AM CDT 03/12/2024 12:28 AM CDT Chadd Toledo DO LAB POCT ORDERABLES - DEVICE Final Result Performing Organization Address [facility] Co de Phone Number [facility] [employer] [place] [address] * POCT glucose (03/11/2024 11:04 PM CDT) Glucose, POC 172 70 - 199 mg/dL Blood 03/11/2024 11:0 4 PM CDT 03/11/2024 11:04 PM CDT Chadd Toledo DO LAB POCT ORDERABLES - DEVICE Final Result Performing Organization Address [facility] de Phone Number [facility] [employer] [place] [place] [address] * (ABNORMAL) POCT glucose (03/11/2024 10:08 PM CDT) Glucose, POC 208(H) 70 - 199 mg/dL Blood 03/11/2024 10:0 8 PM CDT 03/11/2024 10:08 PM CDT Chadd Toledo DO LAB POCT ORDERABLES - DEVICE Final Result Performing Organization Address [facility] de Phone Number [facility] [employer] [place] [place] [address] * (ABNORMAL) POCT glucose (03/11/2024 9:06 PM CDT) Glucose, POC 245(H) 70 - 199 mg/dL Blood 03/11/2024 9:06 PM CDT 03/11/2024 9:06 PM CDT Chadd Toledo DO LAB POCT ORDERABLES - DEVICE Final Result Performing Organization Address [facility] [place] [address] * Type and screen (03/11/2024 9:03 PM CDT) Pathologist [facility] Anselmo, indirect Negative ABO Rh O Negative [facility] Blood 03/11/2024 9:03 PM CDT 03/11/2024 9:16 PM CDT Narrative [facility] - 03/11/2024 10:16 PM CDT Has the patient had Daratumumab or Isatuximab in the past 6 months?->Unknown Chadd Toledo DO LAB BLOOD BANK TEST O RDERABLES Final Result Performing Organization Address [facility] de Phone Number [facility] [place] [address] * (ABNORMAL) Hemoglobin A1c (03/11/2024 8:59 PM CDT) Pathologist [facility] Hgb A1C 8.9(H) 4.0 - 5.6 % Estimated Average Glucose 209 mg/dL [facility] Comment: The ADA recommends reporting an [...] Toledo DO LAB BLOOD ORDERABLES Final Result [facility] Department [place] [address] * eGFR (03/11/2024 8:59 PM CDT) [facility] eGFR >90 >=60 mL/min/1. 73 m2 Comment: [...] interpretive data was last reviewed 2021. Blood 03/11/2024 8:59 PM CDT 03/11/2024 9:18 PM CDT us Chadd Toledo DO LAB BLOOD ORDERABLES Final Result [facility] Department [place] [address] * Differential, auto (03/11/2024 8:59 PM CDT) [facility] Neutrophil abs 3.5 1.5 - 6.5 K/cumm Imm gran abs 0.0 0.0 - 0.1 K/cumm [facility] Lymphocyte abs 1.1 0.8 - 3.3 K/cumm [facility] Monocyte abs 0.4 0.2 - 0.8 K/cumm [facility] Eosinophil abs 0.1 0.0 - 0.5 K/cumm [facility] Basophil abs 0.0 0.0 - 0.1 K/cumm [facility] Neutrophil pct 69.6 % [facility] Comment: Interpretive Data Percent cell count reference ranges are not reported, since discordance with absolute values may lead to misinterpretation of CBC data. Current Interpretive Data was last revised on 2017. Imm gran pct 0.4 % [facility] Comment: Interpretive Data Percent cell count reference ranges are not reported, since discordance with absolute values may lead to misinterpretation of CBC data. Current Interpretive Data was last revised on 2017. Lymphocyte pct 20.9 % [facility] Comment: Interpretive Data Percent cell count reference ranges are not reported, since discordance with absolute values may lead to misinterpretation of CBC data. Current Interpretive Data was last revised on 2017. Monocyte pct 6.9 % [facility] Comment: Interpretive Data Percent cell count reference ranges are not reported, since discordance with absolute values may lead to misinterpretation of CBC data. Current Interpretive Data was last revised on 2017. Eosinophil pct 1.6 % [facility] Comment: Interpretive Data Percent cell count reference ranges are not reported, since discordance with absolute values may lead to misinterpretation of CBC data. Current Interpretive Data was last revised on 2017. Basophil pct 0.6 % [facility] Comment: Interpretive Data Percent cell count reference ranges are not reported, since discordance with absolute values may lead to misinterpretation of CBC data. Current Interpretive Data was last revised on 2017. Blood 03/11/2024 8:59 PM CDT 03/11/2024 9:18 PM CDT us Chadd Toledo DO LAB BLOOD ORDERABLES Final Result [facility] Department [place] [address] * (ABNORMAL) CBC with auto differential (03/11/2024 8:59 PM CDT) [facility] WBC 5.1 3.8 - 9.9 K/cumm Hgb 10.2(L) 11.9 - 15.5 g/dL [facility] Hct 30.6(L) 35.6 - 45.5 % [facility] Plt 145(L) 150 - 400 K/cumm [facility] MPV 8.9(L) 9.1 - 12.3 fL [facility] RBC 3.66(L) 3.90 - 5.20 M/cumm [facility] MCV 83.6 81.3 - 96.4 fL [facility] MCH 27.9 27.1 - 33.3 pg [facility] MCHC 33.3 32.3 - 35.7 g/dL [facility] RDW CV 13.6 11.1 - 14.9 % [facility] RDW SD 41.1 35.7 - 48.1 fL [facility] NRBC abs 0.00 0.00 - 0.01 K/cumm [facility] Blood 03/11/2024 8:59 PM CDT 03/11/2024 9:18 PM CDT Chadd Toledo DO LAB BLOOD ORDERABLES Final Result Performing Organization Address City/[facility]/ZIP Co de Phone Number [facility] Department of [employer] [place] [place] [address] * Phosphorus (03/11/2024 8:59 PM CDT) [facility] Phosphorus, pl 3.4 2.3 - 4.5 mg/dL Blood 03/11/2024 8:59 PM CDT 03/11/2024 9:18 PM CDT Chadd Toledo DO LAB BLOOD ORDERABLES Final Result [facility] Department [place] [address] * Magnesium (03/11/2024 8:59 PM CDT) [facility] Magnesium 1.7 1.4 - 2.5 mg/dL Blood 03/11/2024 8:59 PM CDT 03/11/2024 9:18 PM CDT Chadd Toledo DO LAB BLOOD ORDERABLES Final Result Performing Organization Address [facility] Co de Phone Number [facility] [place] [address] * (ABNORMAL) Basic metabolic panel (03/11/2024 8:59 PM CDT) [facility] Sodium 137 135 - 145 mmol/L Potassium, pl 4.0 3.3 - 4.9 mmol/L [facility] Chloride 102 97 - 110 mmol/L [facility] CO2 28 22 - 32 mmol/L [facility] Anion gap 7 2 - 15 mmol/L [facility] BUN 11 6 - 25 mg/dL [facility] Creatinine 0.55(L) 0.60 - 1.10 mg/dL [facility] Glucose 239(H) 70 - 199 mg/dL [facility] Comment: Interpretive Data Fasting glucose >/= 126 [...] classification and Diagnosis of Diabetes Diabetes Care 202; 46: S19-S40. Current interpretive data was last revised 2022. Calcium 8.4(L) 8.5 - 10.3 mg/dL [facility] Blood 03/11/2024 8:59 PM CDT 03/11/2024 9:18 PM CDT Chadd Toledo DO LAB BLOOD ORDERABLES Final Result Performing Organization Address [facility] Co de Phone Number AJIT [facility] [place] [address] * (ABNORMAL) POCT glucose (03/11/2024 7:53 PM CDT) Glucose, POC 242(H) 70 - 199 mg/dL Comment:Glu2: RN/MD Notified Glucose comment 1 Glu2: RN/MD Notified [facility] Blood 03/11/2024 7:53 PM CDT 03/11/2024 7:53 PM CDT Chaddtorres Griffin Efetorres CARR LAB POCT ORDERABLES - DEVICE Final Result Performing Organization Address [facility] Phone Number [facility] [place] [address] * XR Shoulder Right 2 or More Views (03/11/2024 7:43 PM CDT) Anatomical Region Laterality Modality Upper Extremities, Shoulder Right Comp uted Radiography 03/12/2024 6:23 AM CDT Impressions 03/12/2024 6:23 AM CDT No displaced right shoulder fracture on limited projections. Electronically signed by: Flynn Kwon M.D. Narrative 03/12/2024 6:23 AM CDT XR SHOULDER RIGHT 2 OR MORE VIEWS HISTORY: ??Right shoulder pain FINDINGS: ??3 views of the right shoulder are obtained and interpreted without comparison. Image quality is limited due to presence of a halo device. ??There is no displaced fracture. ??The glenohumeral joint is not well profiled. Soft tissues are normal. Procedure Note Flynn Kwon MD - 03/12/2024 XR SHOULDER RIGHT 2 OR MORE VIEWS HISTORY: Right shoulder pain FINDINGS: 3 views of the right shoulder are obtained and interpreted without comparison. Image quality is limited due to presence of a halo device. There is no displaced fracture. The glenohumeral joint is not well profiled. Soft tissues are normal. IMPRESSION: No displaced right shoulder fracture on limited projections. Electronically signed by: Flynn Kwon M.D. Chadd Toledo DO IMG XR PROCEDURES Fin al Result * POCT glucose (03/11/2024 7:24 PM CDT) Glucose, POC 179 70 - 199 mg/dL Blood 03/11/2024 7:24 PM CDT 03/11/2024 7:24 PM CDT Chadd Toledo DO LAB POCT ORDERABLES - DEVICE Final Result Performing Organization Address City/State/[facility] Co ma Phone Number [facility] Department [place] [address] * Critical Care (03/11/2024 6:42 PM CDT) Narrative Eloise Knapp MD - 03/11/2024 6:42 PM CDT Eloise Knapp MD ? 03/11/2024 ??6:43 PM Critical Care Performed by: Eloise Knapp MD Authorized by: Eloise Knapp MD ?? CRITICAL CARE: ??Team: ??SICU BLUE ??Shift: ??AM ??Level of Billing: ??Critical Care ??My time spent with this patient was 55 minutes: Critical Provider Statement: I have seen and examined the patient on this day of service. I have reviewed and confirmed the history, physical exam, laboratory and radiologic data as documented in the signed ICU note. I have reviewed and discussed my treatment plan with the ICU team and other medical/programmer analyst consultant staff, making frequent assessments and decisions regarding this patient's complex medical care. Critical Care time was exclusive of time spent performing separately billed procedures, treating other patients, and teaching. This time was in addition to and separate from critical care provided by other practitioners in my group on this day of service. Critical Care was necessary to treat or prevent imminent or life-threatening deterioration of the following conditions: ? Hypo- or Hyperglycemia ?? Spinal cord injury/spine fracture ??This time was spent by me doing the following: ? MAP augmentation ?? Glycemic control ?? I spent time reviewing and interpreting data from bedside monitors, laboratory results, and imaging, I spent time discussing the management of this critically ill patient with consultants and the medical staff and I spent time documenting in the medical record us Eloise Knapp MD IN CLINIC/BEDSIDE ORDERAB LES Final Result * POCT glucose (03/11/2024 5:53 PM CDT) Glucose, POC 182 70 - 199 mg/dL Blood 03/11/2024 5:53 PM CDT 03/11/2024 5:53 PM CDT us Chadd Toledo DO LAB POCT ORDERABLES - DEVICE Final Result Performing Organization Address City/State/[facility] Co de Phone Number [facility] Department [place] [address] * HI INSJ NON-TUNNELED CENTRAL VENOUS CATH AGE 7 YR/> (03/11/2024 5:11 PM CDT) Narrative Eloise Knapp MD - 03/11/2024 5:11 PM CDT Inge Pepper PA ? 03/11/2024 ??6:28 PM Central Line Insertion Date/Time: 03/11/2024 5:11 PM Performed by: Inge Pepper PA Authorized by: Inge Pepper PA ?? [place] Protocol: RN Notified of Procedure: yes ?? Informed consent: ??Risks, benefits, alternatives discussed Patient's stated name/ matches armband: ??Yes Allergies confirmed: yes ?? Consent form signed, dated, timed; matches correct patient, intended procedure and site: ??Yes Imaging: ??Pertinent imaging reviewed, correctly oriented and match to patient identifiers Lab/Diag test results: ??Pertinent lab/diag tests reviewed and match to patient identifiers Supplies, devices and special equipment are available: yes ?? Site/side marked: yes Immediately prior to the procedure a time out was called: a verbal verification by the procedure participants confirmed correct patient identity, correct site/side marked and visible (if applicable); agreement on procedure to be done; and correct patient positioning ?? Have non- routine considerations been assessed?: Yes ?? Indications: ??Administer vasoactive medications Anesthesia (see MAR for exact dosage) Anesthesia method: ??Local infiltration Local anesthetic: ??Lidocaine 1% Patient position: ??Flat Skin preparation: ??Skin prepped with 2% chlorhexidine Provider preparation: ??Cap, full body drape, gloves, gown, handwashing and mask Location: ??Left femoral Ultrasound guidance: ??Pre-procedure diagnostic and real-time needle guidance Assessment: ??Blood return through all ports and free fluid flow Catheter type: ??Quadruple lumen Catheter placed through introducer: ??Single Catheter size: ??8.5 Fr Needle inserted, vein idenitified then guidewire inserted easily into vein: Yes ?? Number of attempts: ??2 (First attempt in R femoral vein. Unable to thread guidewire due to resistance. Small clot noted on US. Switched to L femoral vein.) Successful placement: Yes ?? Catheter secured at (cm): ??20 Catheter length (cm): ??20 Line securement: ??Line sutured and dressing applied Patient tolerance: ??Patient tolerated the procedure well with no immediate complications Post Procedure Debrief: All guidewires, needles, sponges or other items are accounted for: yes ?? Any special post procedure monitoring, testing or other considerations: n/a ?? All specimens identified, labeled and matched to patient identification: n/a ?? Responsible green party for transporting specimen(s) to lab determined: n/a ?? us Inge SIFUENTES IN CLINIC/BEDSIDE ORDERA BLES Final Result * HI ARTL CATHJ/CANNULJ MNTR/TRANSFUSION SPX PRQ (03/11/2024 5:09 PM CDT) Narrative Eloise Knapp MD - 03/11/2024 5:09 PM CDT Inge Pepper PA ? 03/11/2024 ??5:11 PM Arterial Line Insertion Date/Time: 03/11/2024 5:09 PM Performed by: Inge Pepper PA Authorized by: Inge Pepper PA ?? [place] Protocol: RN Notified of Procedure: yes ?? Informed consent: ??Risks, benefits, alternatives discussed Patient's stated name/ matches armband: ??Yes Allergies confirmed: yes ?? Consent form signed, dated, timed; matches correct patient, intended procedure and site: ??Yes Supplies, devices and special equipment are available: yes ?? Immediately prior to the procedure a time out was called: a verbal verification by the procedure participants confirmed correct patient identity, correct site/side marked and visible (if applicable); agreement on procedure to be done; and correct patient positioning ?? Indications: hemodynamic monitoring ?? Location: ??Left radial Anesthesia: ??Local infiltration Local anesthetic: ??Lidocaine 1% Patient skin preparation: chlorhexidine ?? Ultrasound guidance: ??Pre-procedure diagnostic and real-time needle guidance Patient preparation: ??Cap, gloves, handwashing, mask, partial body drape and sterile probe cover Rickey's test normal?: Yes ?? Catheter gauge: ??20 Catheter length (cm): ??4 Single percutaneous needle puncture: Yes ?? Seldinger technique used: Yes ?? Number of attempts: ??1 Placement confirmed with arterial waveform: Yes ?? Post-procedure: ??Line sutured and dressing applied Post-procedure CMS: ??Unchanged Patient tolerance: ??Patient tolerated the procedure well with no immediate complications Complications: no complications noted during insertion ?? Post Procedure Debrief: All guidewires, needles, sponges or other items are accounted for: yes ?? Any special post procedure monitoring, testing or other considerations: n/a ?? All specimens identified, labeled and matched to patient identification: n/a ?? Responsible green party for transporting specimen(s) to lab determined: n/a ?? Inge SIFUENTES IV THERAPY ORDERABLES Fi nal Result * POCT glucose (03/11/2024 3:12 PM CDT) Glucose, POC 159 70 - 199 mg/dL Blood 03/11/2024 3:12 PM CDT 03/11/2024 3:12 PM CDT Chadd Toledo DO LAB POCT ORDERABLES - DEVICE Final Result Performing Organization Address [facility] Co de Phone Number AJIT [facility] [place] [address] * (ABNORMAL) CRP (acute phase) (03/11/2024 3:10 PM CDT) CRP 48.6(H) <=10.0 mg/L Blood 03/11/2024 3:10 PM CDT 03/11/2024 3:29 PM CDT Chadd Toledo DO LAB BLOOD ORDERABLES Final Result Performing Organization Address [facility] de Phone Number [facility] [place] [address] * Lactate (03/11/2024 3:10 PM CDT) Lactate 1.4 0.7 - 2.0 mmol/L Blood 03/11/2024 3:10 PM CDT 03/11/2024 3:29 PM CDT Chadd Toledo DO LAB BLOOD ORDERABLES Final Result Performing Organization Address [facility] de Phone Number AJIT [facility] Department [place] [address] * POCT glucose (03/11/2024 1:22 PM CDT) Glucose, POC 152 70 - 199 mg/dL Blood 03/11/2024 1:22 PM CDT 03/11/2024 1:22 PM CDT Chadd Toledo DO LAB POCT ORDERABLES - DEVICE Final Result Performing Organization Address [facility] Co de Phone Number [facility] [place] [address] * POCT glucose (03/11/2024 11:57 AM CDT) Glucose, POC 122 70 - 199 mg/dL Blood 03/11/2024 11:5 7 AM CDT 03/11/2024 11:57 AM CDT Chadd Toledo DO LAB POCT ORDERABLES - DEVICE Final Result Performing Organization Address [facility] [place] [address] * POCT glucose (03/11/2024 9:04 AM CDT) Glucose, POC 135 70 - 199 mg/dL Blood 03/11/2024 9:04 AM CDT 03/11/2024 9:04 AM CDT us Chadd Toledo DO LAB POCT ORDERABLES - DEVICE Final Result Performing Organization Address City/[facility] [place] [address] * POCT glucose (03/11/2024 7:18 AM CDT) Glucose, POC 98 70 - 199 mg/dL Blood 03/11/2024 7:18 AM CDT 03/11/2024 7:18 AM CDT Chadd Toledo DO LAB POCT ORDERABLES - DEVICE Final Result Performing Organization Address City/[facility] [place] [address] * XR Chest 1 View (03/11/2024 6:40 AM CDT) Anatomical Region Laterality Modality Body, Chest N/A Computed Radiogr aphy 03/11/2024 2:39 PM CDT Impressions 03/11/2024 3:42 PM CDT Comparison is made to chest radiograph 03/08/[address] 03/08/2024. There is interval placement of a partially imaged halo device. Additional partially wrenches project over the left lower chest. Evaluation of the lungs is limited due to the overlying instrumentation. ??There is mild bibasilar atelectasis. ??No pneumothorax or pleural effusion. ??The cardiomediastinal silhouette is similar compared to prior radiograph. ??The known rib fractures are better evaluated on prior CT. ??Possible nondisplaced distal left clavicle fracture. ??Recommend correlation with exam. Dictated by: Aiden More MD The radiology attending physician has personally reviewed this study, and had reviewed and/or edited this written report and agrees with it. Electronically signed by: Marcella Woodward M.D. Narrative 03/11/2024 3:42 PM CDT EXAMINATION: 1 view chest radiograph Procedure Note Marcella Woodward MD - 03/11/2024 EXAMINATION: 1 view chest radiograph IMPRESSION: Comparison is made to chest radiograph 03/08/[address] 03/08/2024. There is interval placement of a partially imaged halo device. Additional partially wrenches project over the left lower chest. Evaluation of the lungs is limited due to the overlying instrumentation. There is mild bibasilar atelectasis. No pneumothorax or pleural effusion. The cardiomediastinal silhouette is similar compared to prior radiograph. The known rib fractures are better evaluated on prior CT. Possible nondisplaced distal left clavicle fracture. Recommend correlation with exam. Dictated by: Aiden More MD The radiology attending physician has personally reviewed this study, and had reviewed and/or edited this written report and agrees with it. Electronically signed by: Marcella Woodward M.D. us Chadd Toledo DO IMG XR PROCEDURES Fin al Result * POCT glucose (03/11/2024 6:34 AM CDT) Glucose, POC 115 70 - 199 mg/dL Blood 03/11/2024 6:34 AM CDT 03/11/2024 6:34 AM CDT Chadd Toledo DO LAB POCT ORDERABLES - DEVICE Final Result Performing Organization Address [facility] de Phone Number [facility] [employer] [place] [place] [address] * POCT glucose (03/11/2024 5:16 AM CDT) Glucose, POC 84 70 - 199 mg/dL Blood 03/11/2024 5:16 AM CDT 03/11/2024 5:16 AM CDT Chadd Toledo DO LAB POCT ORDERABLES - DEVICE Final Result Performing Organization Address [facility] de Phone Number [facility] [employer] [place] [address] * POCT glucose (03/11/2024 3:00 AM CDT) Glucose, POC 102 70 - 199 mg/dL Blood 03/11/2024 3:00 AM CDT 03/11/2024 3:00 AM CDT Chadd Toledo DO LAB POCT ORDERABLES - DEVICE Final Result Performing Organization Address [facility] de Phone Number [facility] [employer] [place] [place] [address] * POCT glucose (03/11/2024 1:13 AM CDT) Glucose, POC 117 70 - 199 mg/dL Blood 03/11/2024 1:13 AM CDT 03/11/2024 1:13 AM CDT Chadd Toledo DO LAB POCT ORDERABLES - DEVICE Final Result [facility] Department [place] [address] * Critical Care (03/10/2024 11:48 PM CDT) Narrative Nestor Ruiz Jr., MD - 03/10/2024 11:48 PM CDT Nestor Ruiz Jr., MD ? 03/11/2024 ??2:31 AM Critical Care Performed by: Nestor Ruiz Jr., MD Authorized by: Nestor Ruiz Jr., MD ?? CRITICAL CARE: ??Team: ??SICU BLUE ??Shift: ??PM ??Level of Billing: ??Critical Care ??My time spent with this patient was 35 minutes: Critical Provider Statement: I have seen and examined the patient on this day of service. I have reviewed and confirmed the history, physical exam, laboratory and radiologic data as documented in the signed ICU note. I have reviewed and discussed my treatment plan with the ICU team and other medical/programmer analyst consultant staff, making frequent assessments and decisions regarding this patient's complex medical care. Critical Care time was exclusive of time spent performing separately billed procedures, treating other patients, and teaching. This time was in addition to and separate from critical care provided by other practitioners in my group on this day of service. Critical Care was necessary to treat or prevent imminent or life-threatening deterioration of the following conditions: ? Acute pain/acute postoperative pain ?? Hypo- or Hyperglycemia ?? Spinal cord injury/spine fracture and Multiple rib fractures ??This time was spent by me doing the following: ? Serial laboratory checks ?? Acute pain control ?? Serial neurovascular exams ?? Glycemic control ?? Spinal immobilization ?? I spent time reviewing and interpreting data from bedside monitors, laboratory results, and imaging, I spent time discussing the management of this critically ill patient with consultants and the medical staff and I spent time documenting in the medical record us Nestor Ruiz Jr., MD IN CLINIC/BEDSIDE ORDERABL ES Final Result * POCT glucose (03/10/2024 10:55 PM CDT) Glucose, POC 112 70 - 199 mg/dL Blood 03/10/2024 10:5 5 PM CDT 03/10/2024 10:55 PM CDT Chadd Toledo DO LAB POCT ORDERABLES - DEVICE Final Result Performing Organization Address [facility] de Phone Number [facility] [employer] [place] [address] * POCT glucose (03/10/2024 9:02 PM CDT) [facility] Glucose, POC 174 70 - 199 mg/dL Blood 03/10/2024 9:02 PM CDT 03/10/2024 9:02 PM CDT Result [facility] Chaddtorres Griffin Tre DO LAB POCT ORDERABLES - DEVICE Final Result Performing Organization Address [facility] de Phone Number AJIT [facility] [employer] [place] [place] [address] * eGFR (03/10/2024 7:44 PM CDT) [facility] eGFR >90 >=60 mL/min/1. 73 m2 Comment: [...] interpretive data was last reviewed 2021. Blood 03/10/2024 7:44 PM CDT 03/10/2024 8:00 PM CDT Chadd Toledo DO LAB BLOOD ORDERABLES Final Result Performing Organization Address City/[facility]/ZIP Co de Phone Number [facility] [employer] [place] [place] [address] * Phosphorus (03/10/2024 7:44 PM CDT) Phosphorus, pl 2.7 2.3 - 4.5 mg/dL Blood 03/10/2024 7:44 PM CDT 03/10/2024 8:00 PM CDT Chadd Toledo DO LAB BLOOD ORDERABLES Final Result Performing Organization Address [facility] Co de Phone Number [facility] Department [place] [address] * Magnesium (03/10/2024 7:44 PM CDT) Magnesium 2.0 1.4 - 2.5 mg/dL Blood 03/10/2024 7:44 PM CDT 03/10/2024 8:00 PM CDT Chadd Toledo DO LAB BLOOD ORDERABLES Final Result Performing Organization Address City/[facility] Co de Phone Number [facility] [place] [address] * (ABNORMAL) Basic metabolic panel (03/10/2024 7:44 PM CDT) [facility] Sodium 138 135 - 145 mmol/L Potassium, pl 4.3 3.3 - 4.9 mmol/L [facility] Chloride 104 97 - 110 mmol/L [facility] CO2 27 22 - 32 mmol/L [facility] Anion gap 7 2 - 15 mmol/L [facility] BUN 14 6 - 25 mg/dL [facility] Creatinine 0.49(L) 0.60 - 1.10 mg/dL [facility] Glucose 148 70 - 199 mg/dL [facility] Comment: Interpretive Data Fasting glucose >/= 126 [...] interpretive data was last revised 2022. Calcium 7.9(L) 8.5 - 10.3 mg/dL [facility] Blood 03/10/2024 7:44 PM CDT 03/10/2024 8:00 PM CDT us Chadd Toledo DO LAB BLOOD ORDERABLES Final Result [facility] Department [place] [address] * (ABNORMAL) CBC without differential (03/10/2024 7:44 PM CDT) [facility] WBC 4.6 3.8 - 9.9 K/cumm Hgb 10.3(L) 11.9 - 15.5 g/dL [facility] Hct 31.5(L) 35.6 - 45.5 % [facility] Plt 110(L) 150 - 400 K/cumm [facility] MPV 8.7(L) 9.1 - 12.3 fL [facility] RBC 3.71(L) 3.90 - 5.20 M/cumm [facility] MCV 84.9 81.3 - 96.4 fL [facility] MCH 27.8 27.1 - 33.3 pg [facility] MCHC 32.7 32.3 - 35.7 g/dL [facility] RDW CV 14.0 11.1 - 14.9 % [facility] RDW SD 43.5 35.7 - 48.1 fL [facility] NRBC abs 0.00 0.00 - 0.01 K/cumm [facility] Blood 03/10/2024 7:44 PM CDT 03/10/2024 8:00 PM CDT Chadd Toledo DO LAB BLOOD ORDERABLES Final Result Performing Organization Address [facility] de Phone Number [facility] Department [place] [address] * POCT glucose (03/10/2024 7:10 PM CDT) Glucose, POC 148 70 - 199 mg/dL Blood 03/10/2024 7:10 PM CDT 03/10/2024 7:10 PM CDT Chadd DE LA FUENTE POCT ORDERABLES - DEVICE Final Result Performing Organization Address [facility] de Phone Number [facility] Department of [employer] [place] [place] [address] * POCT glucose (03/10/2024 5:08 PM CDT) Glucose, POC 113 70 - 199 mg/dL Blood 03/10/2024 5:08 PM CDT 03/10/2024 5:08 PM CDT Chadd Toledo DO LAB POCT ORDERABLES - DEVICE Final Result Performing Organization Address [facility]/ZIP [place] [address] * POCT glucose (03/10/2024 4:03 PM CDT) Glucose, POC 109 70 - 199 mg/dL Blood 03/10/2024 4:03 PM CDT 03/10/2024 4:03 PM CDT Chadd Toledo DO LAB POCT ORDERABLES - DEVICE Final Result Performing Organization Address [facility] [place] [address] * POCT glucose (03/10/2024 3:12 PM CDT) Glucose, POC 123 70 - 199 mg/dL Blood 03/10/2024 3:12 PM CDT 03/10/2024 3:12 PM CDT Chadd Toledo DO LAB POCT ORDERABLES - DEVICE Final Result Performing Organization Address City/[facility] Co de Phone Number [facility] [employer] [place] [place] [address] * POCT glucose (03/10/2024 2:05 PM CDT) Glucose, POC 110 70 - 199 mg/dL Blood 03/10/2024 2:05 PM CDT 03/10/2024 2:05 PM CDT Chadd Toledo DO LAB POCT ORDERABLES - DEVICE Final Result Performing Organization Address City/[facility] [place] [address] * eGFR (03/10/2024 12:13 PM CDT) eGFR >90 >=60 mL/min/1. 73 m2 [...] interpretive data was last reviewed 2021. Blood 03/10/2024 12:1 3 PM CDT 03/10/2024 12:26 PM CDT Brooke SIFUENTES LAB BLOOD ORDERABLES F inal Result [facility] Department [place] [address] * (ABNORMAL) Basic metabolic panel (03/10/2024 12:13 PM CDT) Sodium 138 135 - 145 mmol/L Potassium, pl 3.3 3.3 - 4.9 mmol/L [facility] Chloride 105 97 - 110 mmol/L [facility] CO2 26 22 - 32 mmol/L [facility] Anion gap 7 2 - 15 mmol/L [facility] BUN 17 6 - 25 mg/dL [facility] Creatinine 0.49(L) 0.60 - 1.10 mg/dL [facility] Glucose 102 70 - 199 mg/dL [facility] Comment: Interpretive Data Fasting glucose >/= 126 [...] interpretive data was last revised 2022. Calcium 7.5(L) 8.5 - 10.3 mg/dL [facility] Blood 03/10/2024 12:1 3 PM CDT 03/10/2024 12:26 PM CDT Brooke SIFUENTES LAB BLOOD ORDERABLES F inal Result [facility] Department of [employer] [place] [address] * POCT glucose (03/10/2024 12:07 PM CDT) Glucose, POC 112 70 - 199 mg/dL Blood 03/10/2024 12:0 7 PM CDT 03/10/2024 12:07 PM CDT us Chadd Toledo DO LAB POCT ORDERABLES - DEVICE Final Result [facility] Department [employer] [place] [place] [address] * POCT glucose (03/10/2024 11:07 AM CDT) Glucose, POC 151 70 - 199 mg/dL Blood 03/10/2024 11:0 7 AM CDT 03/10/2024 11:07 AM CDT Chadd Toledo DO LAB POCT ORDERABLES - DEVICE Final Result Performing Organization Address [facility] [place] [address] * POCT glucose (03/10/2024 10:17 AM CDT) Glucose, POC 111 70 - 199 mg/dL Blood 03/10/2024 10:1 7 AM CDT 03/10/2024 10:17 AM CDT Chadd Toledo DO LAB POCT ORDERABLES - DEVICE Final Result Performing Organization Address [facility] de Phone Number [facility] [employer] [place] [address] * POCT glucose (03/10/2024 9:25 AM CDT) Glucose, POC 116 70 - 199 mg/dL Blood 03/10/2024 9:25 AM CDT 03/10/2024 9:25 AM CDT Chadd Toledo DO LAB POCT ORDERABLES - DEVICE Final Result Performing Organization Address [facility] [place] [address] * Critical Care (03/10/2024 8:55 AM CDT) Narrative Eloise Knapp MD - 03/10/2024 8:55 AM CDT Eloise Knapp MD ? 03/10/2024 ??3:57 PM Critical Care Performed by: Eloise Knapp MD Authorized by: Eloise Knapp MD ?? CRITICAL CARE: ??Team: ??SICU BLUE ??Shift: ??AM ??Level of Billing: ??Critical Care ??My time spent with this patient was 35 minutes: Critical Provider Statement: I have seen and examined the patient on this day of service. I have reviewed and confirmed the history, physical exam, laboratory and radiologic data as documented in the signed ICU note. I have reviewed and discussed my treatment plan with the ICU team and other medical/programmer analyst consultant staff, making frequent assessments and decisions regarding this patient's complex medical care. Critical Care time was exclusive of time spent performing separately billed procedures, treating other patients, and teaching. This time was in addition to and separate from critical care provided by other practitioners in my group on this day of service. Critical Care was necessary to treat or prevent imminent or life-threatening deterioration of the following conditions: ? Acute pain/acute postoperative pain ?? Hypo- or Hyperglycemia ?? Spinal cord injury/spine fracture ??This time was spent by me doing the following: ? Acute pain control ?? Glycemic control ?? Spinal immobilization ?? I spent time reviewing and interpreting data from bedside monitors, laboratory results, and imaging, I spent time discussing the management of this critically ill patient with consultants and the medical staff and I spent time documenting in the medical record us Eloise Knapp MD IN CLINIC/BEDSIDE ORDERAB LES Final Result * POCT glucose (03/10/2024 8:08 AM CDT) Glucose, POC 145 70 - 199 mg/dL Blood 03/10/2024 8:08 AM CDT 03/10/2024 8:08 AM CDT us Chadd Toledo DO LAB POCT ORDERABLES - DEVICE Final Result [facility] Department [place] [address] * POCT glucose (03/10/2024 7:21 AM CDT) Glucose, POC 128 70 - 199 mg/dL Blood 03/10/2024 7:21 AM CDT 03/10/2024 7:21 AM CDT Chadd Toledo DO LAB POCT ORDERABLES - DEVICE Final Result Performing Organization Address [facility] Co de Phone Number [facility] [employer] [place] [address] * POCT glucose (03/10/2024 6:10 AM CDT) Glucose, POC 120 70 - 199 mg/dL Blood 03/10/2024 6:10 AM CDT 03/10/2024 6:10 AM CDT Chadd Toledo DO LAB POCT ORDERABLES - DEVICE Final Result Performing Organization Address [facility] de Phone Number [facility]IT [facility] [employer] [place] [place] [address] * POCT glucose (03/10/2024 4:16 AM CDT) Glucose, POC 127 70 - 199 mg/dL Blood 03/10/2024 4:16 AM CDT 03/10/2024 4:16 AM CDT Chadd Toledo DO LAB POCT ORDERABLES - DEVICE Final Result Performing Organization Address [facility] Co de Phone Number [facility]IT [facility] [employer] [place] [place] [address] * POCT glucose (03/10/2024 3:23 AM CDT) Glucose, POC 114 70 - 199 mg/dL Blood 03/10/2024 3:23 AM CDT 03/10/2024 3:23 AM CDT Chadd Toledo DO LAB POCT ORDERABLES - DEVICE Final Result Performing Organization Address [facility] Co de Phone Number [employer] [place] [address] * POCT glucose (03/10/2024 2:07 AM CDT) Glucose, POC 109 70 - 199 mg/dL Blood 03/10/2024 2:07 AM CDT 03/10/2024 2:07 AM CDT Chadd Toledo DO LAB POCT ORDERABLES - DEVICE Final Result Performing Organization Address [facility] [place] [address] * POCT glucose (03/10/2024 1:00 AM CDT) Glucose, POC 95 70 - 199 mg/dL Blood 03/10/2024 1:00 AM CDT 03/10/2024 1:00 AM CDT Chadd Toledo DO LAB POCT ORDERABLES - DEVICE Final Result Performing Organization Address [facility] [place] [address] * Critical Care (03/09/2024 11:44 PM CDT) Narrative Nestor Ruiz Jr., MD - 03/09/2024 11:44 PM CDT Nestor Ruiz Jr., MD ? 03/10/2024 ??4:24 AM Critical Care Performed by: Nestor Ruiz Jr., MD Authorized by: Nestor Ruiz Jr., MD ?? CRITICAL CARE: ??Team: ??SICU BLUE ??Shift: ??PM ??Level of Billing: ??Critical Care ??My time spent with this patient was 35 minutes: Critical Provider Statement: I have seen and examined the patient on this day of service. I have reviewed and confirmed the history, physical exam, laboratory and radiologic data as documented in the signed ICU note. I have reviewed and discussed my treatment plan with the ICU team and other medical/programmer analyst consultant staff, making frequent assessments and decisions regarding this patient's complex medical care. Critical Care time was exclusive of time spent performing separately billed procedures, treating other patients, and teaching. This time was in addition to and separate from critical care provided by other practitioners in my group on this day of service. Critical Care was necessary to treat or prevent imminent or life-threatening deterioration of the following conditions: ? Acute pain/acute postoperative pain ?? Spinal cord injury/spine fracture and Multiple rib fractures ??This time was spent by me doing the following: ? Serial laboratory checks ?? Acute pain control ?? Active and frequent reassessment of respiratory status and oxygen requirements ?? Empiric broad coverage antibiotics ?? Spinal immobilization ?? I spent time reviewing and interpreting data from bedside monitors, laboratory results, and imaging, I spent time discussing the management of this critically ill patient with consultants and the medical staff and I spent time documenting in the medical record us Nestor Ruiz Jr., MD IN CLINIC/BEDSIDE ORDERABL ES Final Result * POCT glucose (03/09/2024 11:13 PM CDT) Glucose, POC 125 70 - 199 mg/dL Blood 03/09/2024 11:1 3 PM CDT 03/09/2024 11:13 PM CDT Chadd Toledo DO LAB POCT ORDERABLES - DEVICE Final Result Performing Organization Address [facility] Co de Phone Number [facility]IT [facility] Department [employer] [place] [place] [address] * POCT glucose (03/09/2024 10:21 PM CDT) Glucose, POC 121 70 - 199 mg/dL Blood 03/09/2024 10:2 1 PM CDT 03/09/2024 10:21 PM CDT Chadd Toledo DO LAB POCT ORDERABLES - DEVICE Final Result Performing Organization Address [facility] Co de Phone Number [facility] Department [place] [address] * POCT glucose (03/09/2024 9:17 PM CDT) Glucose, POC 111 70 - 199 mg/dL Blood 03/09/2024 9:17 PM CDT 03/09/2024 9:17 PM CDT Chaddtorres Toledo DO LAB POCT ORDERABLES - DEVICE Final Result [facility] Department [place] [address] * XR Spine Cervical 2 or 3 Views (03/09/2024 9:09 PM CDT) Anatomical Region Laterality Modality Spine N/A Computed Radiogr aphy 03/10/2024 6:26 AM CDT Impressions 03/10/2024 6:26 AM CDT Poorly characterized known cervical and thoracic fractures. ??Normal sagittal alignment in halo. Electronically signed by: Flynn Kwon M.D. Narrative 03/10/2024 6:26 AM CDT XR SPINE THORACIC 3 VIEWS, XR SPINE CERVICAL 2 OR 3 VIEWS HISTORY: ??Spinal fractures. ??Halo placement. FINDINGS: ??3 views each of the cervical and thoracic spine are obtained and compared with CT imaging 03/08/2024. There are redemonstrated C7, T1, and T11 fractures which are better characterized on recent CT and MR imaging. ??Mild thoracic dextrocurvature. ??Sagittal alignment is grossly normal in halo. ??Soft tissues are normal. Procedure Note Flynn Kwon MD - 03/10/2024 XR SPINE THORACIC 3 VIEWS, XR SPINE CERVICAL 2 OR 3 VIEWS HISTORY: Spinal fractures. Halo placement. FINDINGS: 3 views each of the cervical and thoracic spine are obtained and compared with CT imaging 03/08/2024. There are redemonstrated C7, T1, and T11 fractures which are better characterized on recent CT and MR imaging. Mild thoracic dextrocurvature. Sagittal alignment is grossly normal in halo. Soft tissues are normal. IMPRESSION: Poorly characterized known cervical and thoracic fractures. Normal sagittal alignment in halo. Electronically signed by: Flynn Kwon M.D. Chadd Elias Toledo DO IMG XR PROCEDURES Fin al Result * XR Spine Thoracic 3 Vw (03/09/2024 9:09 PM CDT) Anatomical Region Laterality Modality Spine N/A Computed Radiogr aphy 03/10/2024 6:26 AM CDT Impressions 03/10/2024 6:26 AM CDT Poorly characterized known cervical and thoracic fractures. ??Normal sagittal alignment in halo. Electronically signed by: Flynn Kwon M.D. Narrative 03/10/2024 6:26 AM CDT XR SPINE THORACIC 3 VIEWS, XR SPINE CERVICAL 2 OR 3 VIEWS HISTORY: ??Spinal fractures. ??Halo placement. FINDINGS: ??3 views each of the cervical and thoracic spine are obtained and compared with CT imaging 03/08/2024. There are redemonstrated C7, T1, and T11 fractures which are better characterized on recent CT and MR imaging. ??Mild thoracic dextrocurvature. ??Sagittal alignment is grossly normal in halo. ??Soft tissues are normal. Procedure Note Flynn Kwon MD - 03/10/2024 XR SPINE THORACIC 3 VIEWS, XR SPINE CERVICAL 2 OR 3 VIEWS HISTORY: Spinal fractures. Halo placement. FINDINGS: 3 views each of the cervical and thoracic spine are obtained and compared with CT imaging 03/08/2024. There are redemonstrated C7, T1, and T11 fractures which are better characterized on recent CT and MR imaging. Mild thoracic dextrocurvature. Sagittal alignment is grossly normal in halo. Soft tissues are normal. IMPRESSION: Poorly characterized known cervical and thoracic fractures. Normal sagittal alignment in halo. Electronically signed by: Flynn Kwon M.D. Chadd Toledo DO IMG XR PROCEDURES Fin al Result * Hepatitis panel, acute Blood (03/09/2024 7:59 PM CDT) [facility] Hep A IgM Nonreactive Nonreactive Hep B core IgM Nonreactive Nonreactive [facility] Hep C Ab Nonreactive Nonreactive [facility] Comment:Antibodies to HCV no t detected. Does NOT exclude the possibility of recent exposure to HCV. Current interpretive data was last revised on 22 HepBsAg Nonreactive Nonreactive [facility] Blood 03/09/2024 7:59 PM CDT 03/09/2024 8:07 PM CDT us Chadd Toledo DO LAB MICROBIOLOGY - GE NERAL ORDERABLES Final Result [facility] Department [place] [address] * eGFR (03/09/2024 7:59 PM CDT) [facility] eGFR >90 >=60 mL/min/1. 73 m2 Comment: [...] interpretive data was last reviewed 2021. Blood 03/09/2024 7:59 PM CDT 03/09/2024 8:21 PM CDT Chadd Toledo LAB BLOOD ORDERABLES Final Result Performing Organization Address [facility] de Phone Number [facility] [employer] [place] [address] * Phosphorus (03/09/2024 7:59 PM CDT) [facility] Phosphorus, pl 3.5 2.3 - 4.5 mg/dL Blood 03/09/2024 7:59 PM CDT 03/09/2024 8:21 PM CDT Chaddtorres Griffin Efetorres LAB BLOOD ORDERABLES Final Result Performing Organization Address [facility] de Phone Number [facility] [employer] [place] [address] * Magnesium (03/09/2024 7:59 PM CDT) [facility] Magnesium 1.8 1.4 - 2.5 mg/dL Blood 03/09/2024 7:59 PM CDT 03/09/2024 8:21 PM CDT Chadd Toledo LAB BLOOD ORDERABLES Final Result Performing Organization Address [facility] [place] [address] * (ABNORMAL) Basic metabolic panel (03/09/2024 7:59 PM CDT) [facility] Sodium 139 135 - 145 mmol/L Potassium, pl 3.5 3.3 - 4.9 mmol/L [facility] Chloride 103 97 - 110 mmol/L [facility] CO2 25 22 - 32 mmol/L [facility] Anion gap 11 2 - 15 mmol/L [facility] BUN 23 6 - 25 mg/dL [facility] Creatinine 0.54(L) 0.60 - 1.10 mg/dL [facility] Glucose 123 70 - 199 mg/dL [facility] Comment: Interpretive Data Fasting glucose >/= 126 [...] interpretive data was last revised 2022. Calcium 8.1(L) 8.5 - 10.3 mg/dL [facility] Blood 03/09/2024 7:59 PM CDT 03/09/2024 8:21 PM CDT us Chadd Toledo DO LAB BLOOD ORDERABLES Final Result [facility] Department [place] [address] * (ABNORMAL) CBC without differential (03/09/2024 7:59 PM CDT) Pathologist [facility] WBC 5.9 3.8 - 9.9 K/cumm Hgb 10.5(L) 11.9 - 15.5 g/dL [facility] Hct 32.1(L) 35.6 - 45.5 % [facility] Plt 118(L) 150 - 400 K/cumm [facility] MPV 9.0(L) 9.1 - 12.3 fL [facility] RBC 3.81(L) 3.90 - 5.20 M/cumm [facility] MCV 84.3 81.3 - 96.4 fL [facility] MCH 27.6 27.1 - 33.3 pg [facility] MCHC 32.7 32.3 - 35.7 g/dL [facility] RDW CV 14.3 11.1 - 14.9 % [facility] RDW SD 43.8 35.7 - 48.1 fL [facility] NRBC abs 0.00 0.00 - 0.01 K/cumm [facility] Blood 03/09/2024 7:59 PM CDT 03/09/2024 8:21 PM CDT us Chadd Toledo DO LAB BLOOD ORDERABLES Final Result Performing Organization Address [facility] Co de Phone Number [facility] [employer] [place] [address] * HIV 1/2 Antibody plus p24 Antigen Blood (03/09/2024 7:59 PM CDT) Pathologist [facility] HIV 1/2 ab + p24 ag Nonreactive Nonreactive Comment:Nonreactive for HIV- 1 antigen and HIV-1/HIV-2 antibodies. No laboratory evidence of HIV infection. If acute HIV infection is suspected, consider testing for HIV-1 RNA. Current interpretive data was last revised on 22. Blood 03/09/2024 7:59 PM CDT 03/09/2024 8:07 PM CDT Chadd Toledo DO LAB MICROBIOLOGY - GE NERAL ORDERABLES Final Result Performing Organization Address [facility] Co de Phone Number [facility] [employer] [place] [address] * POCT glucose (03/09/2024 7:57 PM CDT) Pathologist [facility] Glucose, POC 157 70 - 199 mg/dL Blood 03/09/2024 7:57 PM CDT 03/09/2024 7:57 PM CDT Chadd Toledo DO LAB POCT ORDERABLES - DEVICE Final Result Performing Organization Address [facility] [place] [address] * POCT glucose (03/09/2024 7:03 PM CDT) Glucose, POC 130 70 - 199 mg/dL Blood 03/09/2024 7:03 PM CDT 03/09/2024 7:03 PM CDT Chadd Toledo DO LAB POCT ORDERABLES - DEVICE Final Result Performing Organization Address [facility] [place] [address] * POCT glucose (03/09/2024 6:01 PM CDT) Glucose, POC 99 70 - 199 mg/dL Blood 03/09/2024 6:01 PM CDT 03/09/2024 6:01 PM CDT Chadd Toledo DO LAB POCT ORDERABLES - DEVICE Final Result Performing Organization Address [facility]/[place]IP [place] [address] * POCT glucose (03/09/2024 4:58 PM CDT) Glucose, POC 87 70 - 199 mg/dL Blood 03/09/2024 4:58 PM CDT 03/09/2024 4:58 PM CDT Chadd Toledo DO LAB POCT ORDERABLES - DEVICE Final Result Performing Organization Address [facility] [place] [address] * POCT glucose (03/09/2024 4:00 PM CDT) Glucose, POC 105 70 - 199 mg/dL Blood 03/09/2024 4:00 PM CDT 03/09/2024 4:00 PM CDT Chadd Toledo DO LAB POCT ORDERABLES - DEVICE Final Result Performing Organization Address [facility] Co de Phone Number [facility] [employer] [place] [address] * POCT glucose (03/09/2024 3:15 PM CDT) Glucose, POC 109 70 - 199 mg/dL Blood 03/09/2024 3:15 PM CDT 03/09/2024 3:15 PM CDT Chadd Toledo DO LAB POCT ORDERABLES - DEVICE Final Result Performing Organization Address [facility] de Phone Number [facility] [employer] [place] [address] * POCT glucose (03/09/2024 2:06 PM CDT) Glucose, POC 118 70 - 199 mg/dL Blood 03/09/2024 2:06 PM CDT 03/09/2024 2:06 PM CDT Result [facility] Chadd Toledo DO LAB POCT ORDERABLES - DEVICE Final Result Performing Organization Address [facility] de Phone Number [facility] [employer] [place] [address] * POCT glucose (03/09/2024 1:05 PM CDT) Glucose, POC 127 70 - 199 mg/dL Blood 03/09/2024 1:05 PM CDT 03/09/2024 1:05 PM CDT Chadd Toledo DO LAB POCT ORDERABLES - DEVICE Final Result Performing Organization Address [facility] Co de Phone Number [facility] [employer] [place] [address] * POCT glucose (03/09/2024 12:01 PM CDT) Glucose, POC 152 70 - 199 mg/dL Blood 03/09/2024 12:0 1 PM CDT 03/09/2024 12:01 PM CDT Chadd Toledo DO LAB POCT ORDERABLES - DEVICE Final Result Performing Organization Address [facility] de Phone Number [facility] [employer] [place] [address] * Critical Care (03/09/2024 11:03 AM CDT) Narrative Eloise Knapp MD - 03/09/2024 11:03 AM CDT Eloise Knapp MD ? 03/09/2024 ??2:31 PM Critical Care Performed by: Eloise Knapp MD Authorized by: Eloise Knapp MD ?? CRITICAL CARE: ??Team: ??SICU BLUE ??Shift: ??AM ??Level of Billing: ??Critical Care ??My time spent with this patient was 45 minutes: Critical Provider Statement: I have seen and examined the patient on this day of service. I have reviewed and confirmed the history, physical exam, laboratory and radiologic data as documented in the signed ICU note. I have reviewed and discussed my treatment plan with the ICU team and other medical/programmer analyst consultant staff, making frequent assessments and decisions regarding this patient's complex medical care. Critical Care time was exclusive of time spent performing separately billed procedures, treating other patients, and teaching. This time was in addition to and separate from critical care provided by other practitioners in my group on this day of service. Critical Care was necessary to treat or prevent imminent or life-threatening deterioration of the following conditions: ? Acute pain/acute postoperative pain ?? Hypo- or Hyperglycemia ?? Multiple rib fractures and Spinal cord injury/spine fracture ??This time was spent by me doing the following: ? Acute pain control ?? Glycemic control ?? Acute fracture care and Spinal immobilization ?? I spent time reviewing and interpreting data from bedside monitors, laboratory results, and imaging, I spent time discussing the management of this critically ill patient with consultants and the medical staff and I spent time documenting in the medical record Eloise Knapp MD IN CLINIC/BEDSIDE ORDERAB LES Final Result * (ABNORMAL) POCT glucose (03/09/2024 11:03 AM CDT) Glucose, POC 205(H) 70 - 199 mg/dL Blood 03/09/2024 11:0 3 AM CDT 03/09/2024 11:03 AM CDT Chadd Toledo DO LAB POCT ORDERABLES - DEVICE Final Result Performing Organization Address [facility] de Phone Number [facility] Department [place] [address] * (ABNORMAL) POCT glucose (03/09/2024 10:14 AM CDT) Glucose, POC 227(H) 70 - 199 mg/dL Blood 03/09/2024 10:1 4 AM CDT 03/09/2024 10:14 AM CDT Chadd Toledo DO LAB POCT ORDERABLES - DEVICE Final Result Performing Organization Address [facility] Co de Phone Number [facility] [employer] [place] [address] * (ABNORMAL) POCT glucose (03/09/2024 9:03 AM CDT) Glucose, POC 266(H) 70 - 199 mg/dL Blood 03/09/2024 9:03 AM CDT 03/09/2024 9:03 AM CDT Chadd Toledo DO LAB POCT ORDERABLES - DEVICE Final Result Performing Organization Address [facility] de Phone Number [facility] [employer] [place] [place] [address] * (ABNORMAL) POCT glucose (03/09/2024 8:01 AM CDT) Glucose, POC 302(H) 70 - 199 mg/dL Blood 03/09/2024 8:01 AM CDT 03/09/2024 8:01 AM CDT Chadd Toledo DO LAB POCT ORDERABLES - DEVICE Final Result Performing Organization Address [facility] de Phone Number [facility] [employer] [place] [place] [address] * (ABNORMAL) POCT glucose (03/09/2024 7:06 AM CDT) Glucose, POC 328(H) 70 - 199 mg/dL Blood 03/09/2024 7:06 AM CDT 03/09/2024 7:06 AM CDT Chadd Toledo DO LAB POCT ORDERABLES - DEVICE Final Result Performing Organization Address [facility] de Phone Number [facility] [employer] [place] [place] [address] * eGFR (03/09/2024 6:27 AM CDT) eGFR >90 >=60 mL/min/1. 73 [...] interpretive data was last reviewed 2021. Blood 03/09/2024 6:27 AM CDT 03/09/2024 6:46 AM CDT Chadd Toledo DO LAB BLOOD ORDERABLES Final Result [facility] Department [place] [address] * (ABNORMAL) CBC without differential (03/09/2024 6:27 AM CDT) WBC 6.5 3.8 - 9.9 K/cumm Hgb 11.2(L) 11.9 - 15.5 g/dL [facility] Hct 33.4(L) 35.6 - 45.5 % [facility] Plt 132(L) 150 - 400 K/cumm [facility] MPV 9.1 9.1 - 12.3 fL [facility] RBC 3.95 3.90 - 5.20 M/cumm [facility] MCV 84.6 81.3 - 96.4 fL [facility] MCH 28.4 27.1 - 33.3 pg [facility] MCHC 33.5 32.3 - 35.7 g/dL [facility] RDW CV 14.1 11.1 - 14.9 % [facility] RDW SD 43.6 35.7 - 48.1 fL [facility] NRBC abs 0.00 0.00 - 0.01 K/cumm [facility] Blood 03/09/2024 6:27 AM CDT 03/09/2024 6:45 AM CDT us Chaddtorres Wilkstorres DO LAB BLOOD ORDERABLES Final Result [facility] Department [place] [address] * (ABNORMAL) Comprehensive metabolic panel (03/09/2024 6:27 AM CDT) Sodium 139 135 - 145 mmol/L Potassium, pl 4.1 3.3 - 4.9 mmol/L [facility] Chloride 101 97 - 110 mmol/L [facility] CO2 27 22 - 32 mmol/L [facility] Anion gap 11 2 - 15 mmol/L [facility] BUN 20 6 - 25 mg/dL [facility] Creatinine 0.63 0.60 - 1.10 mg/dL [facility] Glucose 335(H) 70 - 199 mg/dL [facility] Comment: Interpretive Data Fasting glucose >/= 126 [...] 2022. Calcium 8.9 8.5 - 10.3 mg/dL [facility] Bilirubin, total 0.9 0.1 - 1.2 mg/dL [facility] Protein, pl 7.8 6.5 - 8.5 g/dL [facility] Albumin 3.7 3.5 - 5.0 g/dL [facility] Alk phos 149(H) 40 - 130 Units/L [facility] ALT 29 7 - 45 Units/L [facility] AST 79(H) 10 - 45 Units/L [facility] Blood 03/09/2024 6:27 AM CDT 03/09/2024 6:46 AM CDT Chadd Toledo DO LAB BLOOD ORDERABLES Final Result Performing Organization Address [facility] de Phone Number [facility] [place] [address] * (ABNORMAL) POCT glucose (03/09/2024 6:17 AM CDT) Glucose, POC 342(H) 70 - 199 mg/dL Comment:Glu2: RN/MD Notified Glucose comment 1 Glu2: RN/MD Notified [facility] Blood 03/09/2024 6:17 AM CDT 03/09/2024 6:17 AM CDT Chadd Toledo DO LAB POCT ORDERABLES - DEVICE Final Result Performing Organization Address [facility] de Phone Number [facility] Department [place] [address] * (ABNORMAL) POCT glucose (03/09/2024 5:07 AM CDT) Glucose, POC 376(H) 70 - 199 mg/dL Blood 03/09/2024 5:07 AM CDT 03/09/2024 5:07 AM CDT Chadd Toledo DO LAB POCT ORDERABLES - DEVICE Final Result Performing Organization Address [facility] de Phone Number [facility] [place] [address] * (ABNORMAL) Drugs of Abuse Screen, Urine without Confirmation (03/09/2024 4:46 AM CDT) [facility] Amphetamine, ur Screen Positive, presumptive (A) CutOff 500ng/mL Comment: Interpretive Data - Amphetamines: ??Samples containing greater than 500 ng/mL d-methamphetamine ??or other cross-reacting amphetamine compounds are reported as positive. ??Amphetamine immunoassays are subject to significant false positive rates due to cross-reactivity of non-amphetamine drugs. Confirmatory testing required for definitive results. Current Interpretive Data was last reviewed 2023. Barbiturates, ur Not Detected CutOff 200ng/mL [facility] Comment: Interpretive Data - Barbiturates: ??Samples containing greater than 200 ng/mL secobarbital or other cross-reacting barbiturate compounds are reported as positive. ??False positive and false negative results are possible. Confirmatory testing required for definitive results. Current Interpretive Data was last reviewed 2023. Benzodiazepines, ur Not Detected CutOff 100ng/mL [facility] Comment: Interpretive Data - Benzodiazepines: ??Samples containing greater than 100 ng/mL nordiazepam or other cross-reacting compounds are reported as positive. False positive and false negative results are possible. Confirmatory testing required for definitive results. Current Interpretive Data was last reviewed 2023. Cannabinoids, ur Not Detected CutOff 50 ng/mL [facility] Comment: Interpretive Data - Cannabinoids: ??Samples containing greater than 50 ng/mL delta-9 THC -COOH or other cross-reacting compounds are reported as positive. ??False positive and false negative results are possible. ??Confirmatory testing required for definitive results. Current Interpretive Data was last reviewed 2023. Cocaine, ur Not Detected CutOff 150ng/mL [facility] Comment: Interpretive Data - Cocaine: ??Samples containing greater than 150 ng/mL benzoylecgonine or other cross-reacting compounds are reported as positive. False positive and false negative results are possible. Confirmatory testing required for definitive results. Current Interpretive Data was last reviewed 2023. Fentanyl, Ur Screen Positive, presumptive (A) CutOff 5 ng/mL [facility] Comment: Interpretive Data - Fentanyl: ?? Samples containing greater than 5 ng/mL norfentanyl, fentanyl, or other cross-reacting fentanyl compounds are reported as positive. False positive and false negative results are possible. Confirmatory testing required for definitive results. Current Interpretive Data was last reviewed 2023. Methadone, ur Not Detected CutOff 300ng/mL [facility] Comment: Interpretive Data - Methadone: ??Samples containing greater than 300 ng/mL d,l-methadone or other cross-reacting compounds are reported as positive. ??False positive and false negative results are possible. Confirmatory testing required for definitive results. Current Interpretive Data was last reviewed 2023. Opiates, ur Not Detected CutOff 300ng/mL [facility] Comment: Interpretive Data - Opiates: ??Samples containing greater than 300 ng/mL morphine or other cross-reacting compounds are reported as positive. ??False positive and false negative results are possible. Confirmatory testing required for definitive results. Current Interpretive Data was last reviewed 2023. Oxycodone, ur Not Detected CutOff 100ng/mL [facility] Comment: Interpretive Data - Oxycodone: ??Samples containing greater than 100 ng/mL oxycodone or other cross-reacting compounds are reported as ??positive. ??False positive and false negative results are possible. Confirmatory testing required for definitive results. Current Interpretive Data was last reviewed 2023. Phencyclidine, ur Not Detected CutOff 25 ng/mL [facility] Comment: Interpretive Data - Phencyclidine: ??Samples containing greater than 25 ng/mL phencyclidine or other cross-reacting compounds are reported as positive. ??False positive and false negative results are possible. Confirmatory testing required for definitive results. Current Interpretive Data was last reviewed 2023. Urine Creatinine 47 mg/dL [facility] Comment: Interpretive Data Urine Creatinine: < 10 mg/dL is extremely dilute = or > 10 but < 20 mg/dL is dilute = or > 20 mg/dL is normal Current Interpretive Data was last revised on 2017. Urine 03/09/2024 4:46 AM CDT 03/09/2024 4:57 AM CDT Narrative [facility] - 03/09/2024 5:28 AM CDT Drug of Abuse screening is performed by immunoassay for medical purposes only. ??This is not to be used for Pain Management purposes. us Rosalio Calixto MD LAB URINE ORDERABLES Fin al Result Performing Organization Address [facility]/ZIP Co de Phone Number [facility] Department [place] [address] * (ABNORMAL) POCT glucose (03/09/2024 3:18 AM CDT) Glucose, POC 368(H) 70 - 199 mg/dL Blood 03/09/2024 3:18 AM CDT 03/09/2024 3:18 AM CDT us Jack Wilks MD LAB POCT ORDERABLES - DEVICE Final Result Performing Organization Address [facility] de Phone Number [facility] Department [place] [address] * MRI Spine Total Complete W WO Contrast (03/09/2024 2:03 AM CDT) Anatomical Region Laterality Modality Spine N/A Magnetic Resonan ce 03/09/2024 4:16 AM CDT Impressions 03/09/2024 6:09 PM CDT 1. ??Acute fracture of the inferior posterior C7 with extension into the posterior element, anterior widening of the C7-T1 space, 4 mm C7 on T1 anterolisthesis, ??associated disruption of the anterior longitudinal ligament and injury of the posterior ligamentous complex posterior longitudinal ligament. ??Questionable T2 signal within the spinal cord at level of C7, may represent cord contusion. 2. ??Acute displaced fractures of the anterior Inferior and superior endplates of T11 vertebral body with extension into the posterior elements/right articular facet with disruption of the anterior longitudinal ligament at that level. Questionable small dorsal epidural hematoma extending from T9 to T12 resulting in mild spinal canal canal stenosis at T10-T11 and T11-T12. Interspinous ligamentous injury at T11-T12. 3. ??Acute nondisplaced fractures of the posterior inferior T1 and posterior superior T2 vertebral bodies. 4. ??An indeterminate 16 mm focus of left paraspinal enhancement at the level of T9. ??This appears to abutting segmental arterial branch arising from the aorta which may represent pseudoaneurysm or nerve sheath tumor. ??Correlate with CT angiogram for further characterization. ?? 5. ??Multilevel degenerative change throughout the spine as detailed above. ??Severe spinal canal stenosis at L3-L4 and severe bilateral neuroforaminal stenosis at L5-S1. ??Moderate multilevel cervical spinal canal stenosis and T1-T2. Findings were communicated with Dr. Serrano on 03/09/2024 at 4:11 AM Dictated by: Kye Noel D.O. The radiology attending physician has personally reviewed this study, and had reviewed and/or edited this written report and agrees with it. Electronically signed by: Dewey Ladd M.D. Narrative 03/09/2024 6:09 PM CDT EXAMINATION: 1. Magnetic resonance imaging (MRI) of the cervical spine without and with contrast 2. Magnetic resonance imaging (MRI) of the thoracic spine without and with contrast 3. Magnetic resonance imaging (MRI) of the lumbar spine without and with contrast HISTORY: 11 fracture with 3 column involvement. TECHNIQUE: Multiplanar multi-weighted MRI of the cervical spine was performed without and with intravenous contrast using the standard protocol. Multiplanar multi-weighted MRI of the thoracic was performed without and with intravenous contrast using the standard protocol. Multiplanar multi-weighted MRI of the lumbar spine was performed without and with intravenous contrast using the standard protocol. Contrast information: 14 mL Gadoterate Meglumine COMPARISON: CT cervical spine and thoracic spine, CTA neck, and CT chest abdomen and pelvis 03/08/2024 FINDINGS: CERVICAL SPINE: There is straightening of the cervical lordosis. ?? Fracture of the inferior posterior C7 with extension into the posterior element with anterior widening of the C7-T1 space and associated edema. ??There is widening of the interspinous ligament with fluid signal concerning for interspinous ligament injury. Hyperintense T2 signal within the spinal cord at level of C7 seen on sagittal series 11 image 8. ??Lack of axial T2 images limits evaluation. There is overlying edema/fluid of the supraspinous ligament extending from the dome of C5-T1 concerning for supraspinous ligamentous injury. Acute nondisplaced fractures of the posterior inferior T1 and posterior superior T2 vertebral bodies. Known minimally displaced fractures of the right C6 transverse foramina, right C5 transverse foramen, and left C7 lamina are better seen on comparison CT. Severe multilevel degenerative changes of the cervical spine with disc bulges at C3-C4, C4-C5, C5-C6, and C6-C7. ??There is associated moderate spinal canal narrowing at C3-C4, C4-C5 and C5-C6. Multilevel neural foraminal stenosis, severe at the right C5-C6 and C6-C7. THORACIC SPINE: The alignment of the lumbar spine is normal. ?? Displaced fracture of the anterior Inferior and superior endplates of T11 vertebral body with extension into the posterior elements/right articular facet. Severe degenerative changes of the endplates of T1 and T2 with near-complete loss of the intervertebral disc. ??Disc osteophyte complex at this level results in moderate to severe spinal canal narrowing. ??There is associated hyperintense T2 signal at this level may represent myelomalacia versus edema. Previously visualized bilateral articular process fractures at T10 and right superior articular process fracture of T12 of air appreciated on comparison CT. Multilevel degenerative change of the thoracic spine most pronounced at T1-T2 with near complete loss of the intervertebral disc. Additionally there are multilevel disc desiccation throughout without significant height loss. ??There is calcification of the posterior longitudinal ligament at T10-T11 resulting in mild spinal canal narrowing. ??There is disc bulge at T11-T12 and T12-L1 without significant spinal canal narrowing. 16 mm focus of enhancement along the left paraspinal musculature at the level of T8-T9 (best seen on sagittal postcontrast series 33 image 17). ??Partially visualized posterior hematoma better better characterized on same day comparison CT chest/abdomen and pelvis. Disruption of the anterior longitudinal ligament at T11-T12.Interspinous ligamentous injury at T11-T12. Dorsal epidural hematoma extending from T9 to T12 resulting in mild spinal canal canal stenosis at T10-T11 and T11-T12. LUMBAR SPINE: Straightening of the lumbar lordosis. ??Grade 1 anterolisthesis of L5 over S1 with bilateral L5 pars defects. ??Mild retrolisthesis of L4 over L5. ??No acute fracture identified. The conus medullaris terminates at the level of L1-L2. The distal spinal cord signal intensity is normal. Multilevel disc desiccation with height loss most pronounced at L2 L3 L3 L4 L4 L5 and L5-S1. ??There is associated hyperintense T2 signal at L2-L3 L3-L4 and L5-S1 without enhancement. Annular fissures at L2-L3 L3-L4 . Limited views of the abdomen and pelvis show no soft tissue abnormality. Dense aortic calcifications. There is no abnormal contrast enhancement. L1-L2: The disc is normal in configuration. There is no facet arthropathy. There is no neuroforaminal stenosis. There is no spinal canal stenosis. L2-L3: Circumferential disc bulge. There is moderate bilateral facet arthropathy. There is severe left neural foraminal narrowing neuroforaminal stenosis. There is severe spinal canal stenosis. L3-L4: Circumferential disc bulge with superimposed disc protrusion There is moderate bilateral facet arthropathy. There is moderate left neuroforaminal stenosis. There is severe spinal canal stenosis. L4-L5: Circumferential disc bulge There is moderate bilateral facet arthropathy. There is mild bilateral neuroforaminal stenosis. There is mild to moderate spinal canal stenosis. L5-S1: Circumferential disc bulge There is moderate bilateral facet arthropathy. There is severe bilateral neuroforaminal stenosis. There is mild spinal canal stenosis. Suggestion of small dorsal epidural hematoma and C7-T2. Procedure Note Dewey Ladd MD - 03/09/2024 EXAMINATION: 1. Magnetic resonance imaging (MRI) of the cervical spine without and with contrast 2. Magnetic resonance imaging (MRI) of the thoracic spine without and with contrast 3. Magnetic resonance imaging (MRI) of the lumbar spine without and with contrast HISTORY: 11 fracture with 3 column involvement. TECHNIQUE: Multiplanar multi-weighted MRI of the cervical spine was performed without and with intravenous contrast using the standard protocol. Multiplanar multi-weighted MRI of the thoracic was performed without and with intravenous contrast using the standard protocol. Multiplanar multi-weighted MRI of the lumbar spine was performed without and with intravenous contrast using the standard protocol. Contrast information: 14 mL Gadoterate Meglumine COMPARISON: CT cervical spine and thoracic spine, CTA neck, and CT chest abdomen and pelvis 03/08/2024 FINDINGS: CERVICAL SPINE: There is straightening of the cervical lordosis. Fracture of the inferior posterior C7 with extension into the posterior element with anterior widening of the C7-T1 space and associated edema. There is widening of the interspinous ligament with fluid signal concerning for interspinous ligament injury. Hyperintense T2 signal within the spinal cord at level of C7 seen on sagittal series 11 image 8. Lack of axial T2 images limits evaluation. There is overlying edema/fluid of the supraspinous ligament extending from the dome of C5-T1 concerning for supraspinous ligamentous injury. Acute nondisplaced fractures of the posterior inferior T1 and posterior superior T2 vertebral bodies. Known minimally displaced fractures of the right C6 transverse foramina, right C5 transverse foramen, and left C7 lamina are better seen on comparison CT. Severe multilevel degenerative changes of the cervical spine with disc bulges at C3-C4, C4-C5, C5-C6, and C6-C7. There is associated moderate spinal canal narrowing at C3-C4, C4-C5 and C5-C6. Multilevel neural foraminal stenosis, severe at the right C5-C6 and C6-C7. THORACIC SPINE: The alignment of the lumbar spine is normal. Displaced fracture of the anterior Inferior and superior endplates of T11 vertebral body with extension into the posterior elements/right articular facet. Severe degenerative changes of the endplates of T1 and T2 with near-complete loss of the intervertebral disc. Disc osteophyte complex at this level results in moderate to severe spinal canal narrowing. There is associated hyperintense T2 signal at this level may represent myelomalacia versus edema. Previously visualized bilateral articular process fractures at T10 and right superior articular process fracture of T12 of air appreciated on comparison CT. Multilevel degenerative change of the thoracic spine most pronounced at T1-T2 with near complete loss of the intervertebral disc. Additionally there are multilevel disc desiccation throughout without significant height loss. There is calcification of the posterior longitudinal ligament at T10-T11 resulting in mild spinal canal narrowing. There is disc bulge at T11-T12 and T12-L1 without significant spinal canal narrowing. 16 mm focus of enhancement along the left paraspinal musculature at the level of T8-T9 (best seen on sagittal postcontrast series 33 image 17). Partially visualized posterior hematoma better better characterized on same day comparison CT chest/abdomen and pelvis. Disruption of the anterior longitudinal ligament at T11-T12.Interspinous ligamentous injury at T11-T12. Dorsal epidural hematoma extending from T9 to T12 resulting in mild spinal canal canal stenosis at T10-T11 and T11-T12. LUMBAR SPINE: Straightening of the lumbar lordosis. Grade 1 anterolisthesis of L5 over S1 with bilateral L5 pars defects. Mild retrolisthesis of L4 over L5. No acute fracture identified. The conus medullaris terminates at the level of L1-L2. The distal spinal cord signal intensity is normal. Multilevel disc desiccation with height loss most pronounced at L2 L3 L3 L4 L4 L5 and L5-S1. There is associated hyperintense T2 signal at L2-L3 L3-L4 and L5-S1 without enhancement. Annular fissures at L2-L3 L3-L4 . Limited views of the abdomen and pelvis show no soft tissue abnormality. Dense aortic calcifications. There is no abnormal contrast enhancement. L1-L2: The disc is normal in configuration. There is no facet arthropathy. There is no neuroforaminal stenosis. There is no spinal canal stenosis. L2-L3: Circumferential disc bulge. There is moderate bilateral facet arthropathy. There is severe left neural foraminal narrowing neuroforaminal stenosis. There is severe spinal canal stenosis. L3-L4: Circumferential disc bulge with superimposed disc protrusion There is moderate bilateral facet arthropathy. There is moderate left neuroforaminal stenosis. There is severe spinal canal stenosis. L4-L5: Circumferential disc bulge There is moderate bilateral facet arthropathy. There is mild bilateral neuroforaminal stenosis. There is mild to moderate spinal canal stenosis. L5-S1: Circumferential disc bulge There is moderate bilateral facet arthropathy. There is severe bilateral neuroforaminal stenosis. There is mild spinal canal stenosis. Suggestion of small dorsal epidural hematoma and C7-T2. IMPRESSION: 1. Acute fracture of the inferior posterior C7 with extension into the posterior element, anterior widening of the C7-T1 space, 4 mm C7 on T1 anterolisthesis, associated disruption of the anterior longitudinal ligament and injury of the posterior ligamentous complex posterior longitudinal ligament. Questionable T2 signal within the spinal cord at level of C7, may represent cord contusion. 2. Acute displaced fractures of the anterior Inferior and superior endplates of T11 vertebral body with extension into the posterior elements/right articular facet with disruption of the anterior longitudinal ligament at that level. Questionable small dorsal epidural hematoma extending from T9 to T12 resulting in mild spinal canal canal stenosis at T10-T11 and T11-T12. Interspinous ligamentous injury at T11-T12. 3. Acute nondisplaced fractures of the posterior inferior T1 and posterior superior T2 vertebral bodies. 4. An indeterminate 16 mm focus of left paraspinal enhancement at the level of T9. This appears to abutting segmental arterial branch arising from the aorta which may represent pseudoaneurysm or nerve sheath tumor. Correlate with CT angiogram for further characterization. 5. Multilevel degenerative change throughout the spine as detailed above. Severe spinal canal stenosis at L3-L4 and severe bilateral neuroforaminal stenosis at L5-S1. Moderate multilevel cervical spinal canal stenosis and T1-T2. Findings were communicated with Dr. Serrano on 03/09/2024 at 4:11 AM Dictated by: Kye Noel D.O. The radiology attending physician has personally reviewed this study, and had reviewed and/or edited this written report and agrees with it. Electronically signed by: Dewey Ladd M.D. us Rosalio Calixto MD IMG MRI PROCEDURES Final Result * aPTT (03/09/2024 12:24 AM CDT) aPTT 28 28 - 38 sec Comment: Interpretive Data Heparin therapeutic range: 66.0 - 100.0 seconds. Range based on correlation with therapeutic heparin activity range of 0.3 - 0.7 Units/mL. Current interpretive data was last revised on 2023. Blood 03/09/2024 12:2 4 AM CDT 03/09/2024 12:34 AM CDT us Jack Wilks MD LAB BLOOD ORDERABLES Final R esult [facility] Department [place] [address] * (ABNORMAL) Protime-INR (03/09/2024 12:24 AM CDT) PT 13.4(H) 9.7 - 13.0 sec INR 1.24(H) 0.90 - 1.20 [facility] Comment: Interpretive data Oral anticoagulant therapeutic ranges: Venous thromboembolism prophylaxis or treatment: 2.0-3.0 CARDIOLOGY Standard range: 2.0-3.0 High-intensity range: 2.5-3.5 Refer to indication-specific guidelines for appropriate target ranges for prosthetic heart valve replacement. Current interpretive data was last revised on 2019. Blood 03/09/2024 12:2 4 AM CDT 03/09/2024 12:34 AM CDT us Jack Wilks MD LAB BLOOD ORDERABLES Final R esult [facility] Department [place] [address] * HI CRITICAL CARE ILL/INJURED PATIENT INIT 30-74 MIN (03/08/2024 11:55 PM CDT) Narrative Rosalio Calixto MD - 03/08/2024 11:55 PM CDT Rosalio Calixto MD ? 03/21/2024 ??3:55 PM Critical Care Performed by: Rosalio Calixto MD Authorized by: Roslaio Calixto MD ?? Critical care provider statement: As reflected in the history, physical exam, orders, notes, and/or MDM, I was personally present while the patient was critically ill and provided critical care services for 39 minutes, excluding time involved in separately billable procedures. ??Critical care was necessary to treat or prevent imminent or life-threatening deterioration of the following condition(s): ?? spinal cord injury/spine fracture, multiple rib fractures, severe traumatic condition and traumatic brain injury ??Critical care was time spent by me providing the following: ? continuous telemetry, continuous pulse oximetry, continuous capnography, interpretation of bedside monitors, imaging, and arterial/venous lab draws, serial bedside patient exams and serial laboratory checks ?? frequent neurologic exams ?? spinal immobilization, serial neurovascular exams, management of limb weight bearing status and acute fracture care ?? acute pain control and sedatives and psychotropic medications ?? I provided emergent necessary critical care medicine services to this patient. I ordered and reviewed test results and/or imaging studies. I spent time discussing the management of this critically ill patient with consultants and the medical staff. I spent time discussing the management and therapeutic options for this critically ill patient with the patient themselves or with the appropriate designated surrogate decision-maker. I spent time documenting in the medical record. I admitted this patient to an Intensive Care unit (ICU) and discussed management with the admitting team. us Rosalio Calixto MD IN CLINIC/BEDSIDE ORDERA BLES Final Result * CTA Chest Abdomen Pelvis (03/08/2024 11:49 PM CDT) Anatomical Region Laterality Modality Body N/A Computed Tomogra phy 03/09/2024 12:2 4 AM CDT Impressions 03/09/2024 10:15 AM CDT 1. ??Acute T11 three- column fracture with grossly unchanged posterior mediastinal hematoma contacting the posterior aorta which is thickened, concerning for local aortic injury. ?? 2. There is vasospasm of the right lumbar artery without definite active extravasation. ??Mild increase in density of the hematoma on venous phase may represent interstitial excretion of contrast versus a low level lumbar venous injury for which close short-term follow-up is recommended. 3. ??Mildly displaced fractures of the left 4th through 8th ribs and possible right 4th and 5th ribs with small volume hematoma in the left upper neck that has mildly increased in size from earlier in the day. ??Subclavian artery is narrowed. 4. ??Cirrhosis, portal hypertension with unchanged hypoattenuating masslike area in the right hemiliver with capsular retraction. 5. ??Indeterminate bilateral adrenal partially enhancing nodules which may represent hematomas given their infiltrative appearance. 6. Increasing left chest wall hematoma with narrowing of the subclavian vasculature at this level, concerning for vascular injury. Dictated by: Kieran Galloway M.D. The radiology attending physician has personally reviewed this study, and had reviewed and/or edited this written report and agrees with it. Electronically signed by: Flynn Kwon M.D. Narrative 03/09/2024 10:15 AM CDT EXAMINATION: ??Computed tomography of the chest abdomen pelvis with and without intravenous contrast HISTORY: Concern for lumbar arterial injury TECHNIQUE: ??Transaxial computed tomographic images of the chest abdomen and pelvis ??were obtained with and without intravenous contrast according to the ischemic/GI bleeding protocol after the uneventful administration of 100 mL Opti-Ray 350 intravenous contrast. COMPARISON: Same day CT FINDINGS: ?? Chest: There left neck hematoma has mildly increased in size with mild narrowing of the left subclavian vein. Subcentimeter right thyroid nodule. Heart size unchanged. ??No hemopericardium. ??Main pulmonary artery and thoracic aorta are unchanged in caliber. Redemonstrated acute 3 column fracture of T11. ??The left lumbar artery is normal. ??The right lumbar artery, near a posterior mediastinal hematoma is not well opacified, possibly due to vasospasm. ??No definite extravasation. ??Interval improvement in the eccentric posterolateral lateral wall thickening of the aorta. ??There is compression of the distal hemiazygous vein. ??Mild increase in intrinsic density of the hematoma on venous phases may represent lumbar venous injury. Bibasilar aspiration changes. ??No pneumothorax, edema, suspicious mass, effusion. ??No acute tracheal injury. Abdomen/Pelvis: Hematoma involving the right diaphragmatic harpal. Unchanged right hemiliver hypoattenuating masslike area with capsular retraction. ??There is questionable delayed enhancement. ??Previously queried Satellite nodules are not apparent. ??Cirrhosis. 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 ??Findings suggestive portal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 mg gabapentin (NEURONTIN) capsule 300 mg 300 mg, oral, 2 times daily after meals (bkfst, lunch), First dose (after last modification) on Sun03/18/24 at 1230 Given 03/19/2024 9:04 AM CDT 300 mg Given 03/18/2024 12:52 PM CDT 300 mg gabapentin (NEURONTIN) tablet 600 mg 600 mg, oral, Nightly, First dose on Sun03/18/24 at 2100 Given 03/18/2024 8:40 PM CDT 600 mg gadoterate meglumine injection 14 mL 14 mL, intravenous, Once in imaging, contrast, Starting on Sun03/09/24 at 0204, For 1 dose Contrast Given 03/09/2024 2:04 AM CDT 14 mL glucagon injection 1 mg 1 mg, intramuscular, Every 30 min PRN, low blood sugar, blood glucose less than 70 mg/dL AND no IV access AND unable to take PO glucose/juice., Starting on Sun03/16/24 at 0846, After Glucagon is administered, position patient on [...] SWFI. Use immediately following reconstitution. HYDROmorphone (DILAUDID) 0.5 mg/0.5 mL injection - ADS Override Pull Starting on Sun03/09/24 at 1309, For 1 dose, Created by senaitt override HYDROmorphone (DILAUDID) injection 0.2 mg 0.2 mg, intravenous, Administer over 2 Minutes, Every 2 hours PRN, breakthrough pain, Starting on Sun03/09/24 at 0624, Indications: PainIndications:Pain Given 03/10/2024 12:05 PM CDT 0.2 mg Given 03/10/2024 10:41 AM CDT 0.2 mg Given 03/10/2024 8:16 AM CDT 0.2 mg HYDROmorphone (DILAUDID) injection 0.2 mg 0.2 mg, intravenous, Administer over 2 Minutes, Once, On Sun03/21/24 at 0600, For 1 dose Given 03/21/2024 5:43 AM CDT 0.2 mg HYDROmorphone (DILAUDID) injection 0.4 mg 0.4 mg, intravenous, Administer over 2 Minutes, Every 2 hours PRN, breakthrough pain, Starting on Sun03/10/24 at 1247, Indications: PainIndications:Pain Given 03/11/2024 7:12 AM CDT 0.4 mg Given 03/11/2024 3:44 AM CDT 0.4 mg Given 03/11/2024 2:09 AM CDT 0.4 mg HYDROmorphone (DILAUDID) injection 0.5 mg 0.5 mg, intravenous, Administer over 2 Minutes, Once, On Sun03/09/24 at 1345, For 1 dose Given 03/09/2024 1:12 PM CDT 0.5 mg HYDROmorphone (DILAUDID) injection 0.5 mg 0.5 mg, intravenous, Administer over 2 Minutes, Once, On Sun03/09/24 at 1415, For 1 dose Given 03/09/2024 1:34 PM CDT 0.5 mg HYDROmorphone (DILAUDID) injection 0.5 mg 0.5 mg, intravenous, Administer over 2 Minutes, Once, On Sun03/10/24 at 0545, For 1 dose Given 03/10/2024 5:14 AM CDT 0.5 mg HYDROmorphone (DILAUDID) injection 0.5 mg 0.5 mg, intravenous, Administer over 2 Minutes, Every 2 hours PRN, breakthrough pain, Starting on Sun03/11/24 at 1034, Indications: PainIndications:Pain Given 03/17/2024 11:17 AM CDT 0.5 mg Given 03/17/2024 5:01 AM CDT 0.5 mg Given 03/16/2024 10:09 PM CDT 0.5 mg hydrOXYzine (ATARAX) tablet 25 mg 25 mg, oral, Every 4 hours PRN, itching, anxiety, Starting on Sun03/10/24 at 2233 Given 03/17/2024 6:00 PM CDT 25 mg Given 03/16/2024 10:09 PM CDT 25 mg Given 03/15/2024 9:57 PM CDT 25 mg hydrOXYzine (ATARAX) tablet 50 mg 50 mg, oral, Every 4 hours PRN, itching, anxiety, Starting on Sun03/17/24 at 1634 Given 04/06/2024 3:47 AM CDT 50 m g Given 04/04/2024 8:19 PM CDT 50 mg Given 04/04/2024 9:30 AM CDT 50 mg insulin glargine (LANTUS, SEMGLEE) 100 unit/mL injection 2 Units 2 Units, subcutaneous, Once, On 03/23/24 at 1400, For 1 dose, Do not hold if NPO. Do not mix with other insulins, Indications: Diabetes MellitusIndications:Diabetes Mellitus Given 03/23/2024 1:38 PM CDT 2 Units Right Upper Arm insulin glargine (LANTUS, SEMGLEE) 100 unit/mL injection 20 Units 20 Units, subcutaneous, Every morning, First dose on 03/16/24 at 0930, Do not hold if NPO. Do not mix with other insulins, Indications: Diabetes MellitusIndications:Diabetes Mellitus Given 03/18/2024 9:41 AM CDT 20 Units Left Upper Abdomen Given 03/17/2024 8:35 AM CDT 20 Units Le ft Lower Abdomen Given 03/16/2024 9:04 AM CDT 20 Units Le ft Upper Abdomen insulin glargine (LANTUS, SEMGLEE) 100 unit/mL injection 22 Units 22 Units, subcutaneous, Every morning, First dose (after last modification) on Sun03/19/24 at 0900, Do not hold if NPO. Do not mix with other insulins, Indications: Diabetes MellitusIndications:Diabetes Mellitus Given 03/21/2024 8:18 AM CDT 22 Units Left Lower Abdomen Given 03/20/2024 8:20 AM CDT 22 Units Le ft Lower Abdomen Given 03/19/2024 8:00 AM CDT 22 Units Le ft Upper Abdomen insulin glargine (LANTUS, SEMGLEE) 100 unit/mL injection 24 Units 24 Units, subcutaneous, Every morning, First dose (after last modification) on Sun03/22/24 at 0900, Do not hold if NPO. Do not mix with other insulins, Indications: Diabetes MellitusIndications:Diabetes Mellitus Given 03/23/2024 8:52 AM CDT 24 Units Right Upper Arm Given 03/22/2024 8:36 AM CDT 24 Units Le ft Lower Abdomen insulin glargine (LANTUS, SEMGLEE) 100 unit/mL injection 26 Units 26 Units, subcutaneous, Every morning, First dose (after last modification) on Sun03/24/24 at 0900, Do not hold if NPO. Do not mix with other insulins, Indications: Diabetes MellitusIndications:Diabete s Mellitus Given 03/24/2024 8:30 AM CDT 26 Units Left Lower Abdomen insulin glargine (LANTUS, SEMGLEE) 100 unit/mL injection 30 Units 30 Units, subcutaneous, Every morning, First dose (after last modification) on Sun03/25/24 at 0900, Do not hold if NPO. Do not mix with other insulins, Indications: Diabetes MellitusIndications:Diabete s Mellitus Given 04/08/2024 8:49 AM CDT 30 Units Right Upper Abdomen Given 04/07/2024 8:45 AM CDT 30 Units Le ft Upper Arm Given 04/06/2024 8:21 AM CDT 30 Units Le ft Forearm insulin lispro (HumaLOG, ADMELOG) 100 unit/mL injection 0-10 Units 0-10 Units, subcutaneous, 3 times daily with meals, First dose on Sun03/16/24 at 1200, Blood glucose mg/dL: 149 or less: No [...] NPO Status, Indications: Diabetes MellitusIndications:Diabetes Mellitus Given 03/29/2024 9:14 AM CDT 6 Units Left Lower Abdomen Given 03/28/2024 12:15 PM CDT 2 Units R ight Lower Abdomen Given 03/28/2024 8:54 AM CDT 2 Units Le ft Lower Abdomen insulin lispro (HumaLOG, ADMELOG) 100 unit/mL injection 0-10 Units 0-10 Units, subcutaneous, 5 times daily (with meals, nightly, and 0200), First dose (after last modification) on 03/29/24 at 1200, Blood glucose mg/dL: 149 or less: No [...] NPO Status, Indications: Diabetes MellitusIndications:Diabetes Mellitus Given 04/08/2024 1:08 PM CDT 4 Units Right Upper Arm Given 04/08/2024 8:48 AM CDT 2 Units Le ft Upper Abdomen Given 04/08/2024 2:24 AM CDT 2 Units Le ft Lower Abdomen insulin lispro (HumaLOG, ADMELOG) 100 unit/mL injection 0-5 Units 0-5 Units, subcutaneous, Nightly, First dose on 03/16/24 at 2100, Blood glucose mg/dL: 149 or [...] NPO Status, Indications: Diabetes MellitusIndications:Diabetes Mellitus Given 03/28/2024 9:20 PM CDT 4 Units Left Upper Abdomen Given 03/27/2024 8:16 PM CDT 2 Units Le ft Lower Abdomen Given 03/26/2024 9:43 PM CDT 2 Units Le ft Lower Abdomen insulin lispro (HumaLOG, ADMELOG) 100 unit/mL injection 10 Units 10 Units, subcutaneous, 3 times daily with meals, First dose on 03/16/24 at 1200, If BG greater than or equal to [...] 70 mg/dL., Indications: Diabetes MellitusIndications:Diabetes Mellitus Given 03/17/2024 9:01 AM CDT 10 Units Left Lower Abdomen Given 03/16/2024 6:39 PM CDT 10 Units Le ft Upper Abdomen Given 03/16/2024 12:16 PM CDT 10 Units L eft Lower Abdomen insulin lispro (HumaLOG, ADMELOG) 100 unit/mL injection 12 Units 12 Units, subcutaneous, 3 times daily with meals, First dose (after last modification) on 03/17/24 at 1215, If BG greater than or equal to [...] 70 mg/dL., Indications: Diabetes MellitusIndications:Diabetes Mellitus Given 03/22/2024 8:36 AM CDT 12 Units Left Lower Abdomen Given 03/21/2024 5:30 PM CDT 12 Units Ri ght Upper Arm Given 03/21/2024 12:03 PM CDT 12 Units R ight Upper Arm insulin lispro (HumaLOG, ADMELOG) 100 unit/mL injection 14 Units 14 Units, subcutaneous, 3 times daily with meals, First dose (after last modification) on 03/22/24 at 1245, If BG greater than or equal to [...] 70 mg/dL., Indications: Diabetes MellitusIndications:Diabetes Mellitus Given 03/23/2024 8:57 AM CDT 14 Units Right Upper Arm Given 03/22/2024 6:17 PM CDT 14 Units Ri ght Upper Arm Given 03/22/2024 12:50 PM CDT 14 Units R ight Upper Arm insulin lispro (HumaLOG, ADMELOG) 100 unit/mL injection 16 Units 16 Units, subcutaneous, 3 times daily with meals, First dose (after last modification) on Sun03/23/24 at 1800, If BG greater than or equal to [...] 70 mg/dL., Indications: Diabetes MellitusIndications:Diabetes Mellitus Given 03/24/2024 5:56 PM CDT 16 Units Left Upper Arm Given 03/24/2024 12:01 PM CDT 16 Units L eft Lower Abdomen Given 03/24/2024 8:29 AM CDT 16 Units Le ft Lower Abdomen insulin lispro (HumaLOG, ADMELOG) 100 unit/mL injection 2 Units 2 Units, subcutaneous, Every 6 hours PRN, high blood sugar, with snacks, Starting on Sun03/25/24 at 0734, Please give with snacks., Indications: Diabetes MellitusIndications:Diabetes Mellitus Given 04/02/2024 9:11 PM CDT 2 Units Left Lower Abdomen insulin lispro (HumaLOG, ADMELOG) 100 unit/mL injection 20 Units 20 Units, subcutaneous, 3 times daily with meals, First dose (after last modification) on Sun03/25/24 at 0830, If BG greater than or equal to [...] 70 mg/dL., Indications: Diabetes MellitusIndications:Diabetes Mellitus Given 04/08/2024 1:08 PM CDT 20 Units Right Upper Arm Given 04/08/2024 8:49 AM CDT 20 Units Ri ght Lower Abdomen Given 04/07/2024 6:39 PM CDT 20 Units Ri ght Upper Arm insulin lispro (HumaLOG, ADMELOG) 100 unit/mL injection 4 Units 4 Units, subcutaneous, Once, On Sun03/09/24 at 0334, For 1 dose Given 03/09/2024 3:43 AM CDT 4 Units Left Lower Abdomen insulin regular bolus from bag 4-10 Units 4-10 Units, intravenous, As needed, high blood sugar, Starting on Sun03/09/24 at 0608, INITIATE INFUSION: Blood Glucose (mg/dL) 181 - 220: Give 4 units IV bolus and start infusion 1 unit/hour 221 - 280: Give 4 units IV bolus and start infusion 2 units/hour 281 - 330: Give 6 units IV bolus and start infusion 2 units/hour 331 - 380: Give 8 units IV bolus and start infusion 3 units/hour 381 - 430: Give 10 units IV bolus and start infusion 3 units/hour Greater than 430: Call MD for orders Use the instructions above if the insulin infusion needs to be restarted., Indications: HyperglycemiaIndications: Hyperglycemia Bolus from Bag 03/15/2024 6:16 PM CDT 4 Units Bolus from Bag 03/14/2024 12:16 PM CDT 4 Units Bolus from Bag 03/14/2024 11:04 AM CDT 4 Units insulin regular bolus from bag 4-6 Units 4-6 Units, intravenous, Every 1 hour PRN, high blood sugar per infusion instructions, Starting on Sun03/09/24 at 0608, Administer additional IV bolus doses as directed in insulin infusion order., Indications: HyperglycemiaIndications:Hyperglyce gregory Bolus from Bag 03/14/2024 2:03 PM CDT 4 Units Bolus from Bag 03/12/2024 5:00 PM CDT 4 Units Bolus from Bag 03/12/2024 3:09 PM CDT 4 Units insulin regular in 0.9% sodium chloride (MYXREDLIN) 100 unit/100 mL (1 unit/mL) infusion (premix) 0-30 Units/hr (0-30 mL/hr), 1 units/mL, intravenous, Titrated, Starting on Sun03/09/24 at 0645, Until Sun03/17/24 at 1308, Indications: Hyperglycemia, NON-WEIGHT BASED DOSING Blood Glucose (BG) - BG DECREASED OR SAME as last value: Less than 70 mg/dL - Stop insulin infusion *(see below for drip reinitiation instructions). Follow hypoglycemia orders. Notify covering MD. 70 - 100 mg/dL - Stop infusion *(see below for drip reinitiation instructions). Resume BG Q 1 hour. 101 - 160 mg/dL - If BG decreased by greater than or equal to 40 mg/dL, decrease infusion by 50% or stop infusion if less than or equal to 2 units/hour *(see below for drip reinitiation instructions). Resume BG Q 1 hour. If BG decreased less than 40 mg/dL, continue same rate. 161 - 200 mg/dL- If BG decreased by greater than or equal to 60 mg/dL, decrease infusion by 50% or stop infusion if less than or equal to 2 units/hour *(see below for drip reinitiation instructions). Resume BG Q 1 hour. If BG decreased less than 60 mg/dL, continue same rate. 201 - 250 mg/dl - If BG decreased by greater than or equal to 60 mg/dL continue same rate. If decreased by less than 60 mg/dL, increase by 1 unit/hr. 251 - 300 mg/dL - Increase by 2 units/hour. 301 - 349 mg/dL - Increase by 2 units/hour. 350 - 400 mg/dL - Increase by 3 units/hr. Greater than 400 mg/dL - Notify covering MD Blood Glucose (BG) - Blood glucose INCREASED since last value: 70 - 100 mg/dL - Continue to hold infusion 101 - 160 mg/dL - Maintain at present rate or if drip has been off, follow reinitiation instructions* 161 - 200 mg/dL- Increase by or restart at 1 unit/hour or if drip has been off, follow reinitiation instructions* 201 - 250 mg/dL- Give 4 units insulin IVP then increase infusion by 2 units/hour or if drip has been off, follow reinitiation instructions* 251 - 300 mg/dL - Give 4 units insulin IVP then increase infusion by 2 units/hour or if drip has been off, follow reinitiation instructions* 301 - 349 mg/dL - Give 6 units insulin IVP then increase infusion by 3 units/hour or if drip has been off, follow reinitiation instructions* 350 - 400 mg/dL - Give 6 units insulin IVP then increase infusion by 3 units/hour or if drip has been off, follow reinitiation instructions* Greater than 400 mg/dL - Notify covering MD. *Drip Reinitiation Instructions: Check BG Q 1 hour; when BG greater than 100 mg/dL, restart infusion at 50% of the most recent rate. If the most recent rate less than 2 units/hr, contact covering provider for reinitiation or transition plan. Patients with renal failure (CrCl less than 40 mL/min, urine output less than 30 mL/hr, or receiving dialysis) limit infusion rate increases to be NO SOONER THAN EVERY 3 HOURS. Contains a phosphorous buffer. Do not infuse (Y-Site) this medication with calcium or calcium-containing products, including TPN and LR. When new IV tubing is used, completely prime the tubing. Once primed, waste an additional 20 ml of insulin infusion using the IV pump prior to connecting to patient., RoutineIndications:Hyperglyc emia Rate/Dose Verify 03/16/2024 10:00 AM CDT 4 Units/hr 4 mL/hr Rate/Dose Verify 03/16/2024 9:00 AM CDT 4 Units/hr 4 mL/hr Rate/Dose Verify 03/16/2024 8:00 AM CDT 4 Units/hr 4 mL/hr ioversoL (OPTIRAY 350) syringe 100 mL 100 mL, intravenous, Once in imaging, contrast, Starting on 03/08/24 at 2001, For 1 dose Contrast Given 03/08/2024 8:01 PM CDT 100 mL ioversoL (OPTIRAY 350) syringe 125 mL 125 mL, intravenous, Once in imaging, contrast, Starting on 03/08/24 at 2322, For 1 dose Contrast Given 03/08/2024 11:54 PM CDT 120 mL lidocaine (ASPERCREME) 4 % patch 2 patch 2 patch, transdermal, Administer over 12 Hours, Every 24 hours, First dose on Sun03/18/24 at 1230, Apply to affected area: shoulder, Laterality: Bilateral Medication Applied 04/08/2024 11:36 AM CDT 2 patches Right Shoulder Medication Applied 04/07/2024 1:35 PM CDT 2 patches Other (Comment) Medication Applied 04/06/2024 12:45 PM CDT 2 patches Right Shoulder lidocaine (PF) (XYLOCAINE) 10 mg/mL (1 %) preservative free injection - ADS Override Pull Starting on Sun03/09/24 at 1241, For 1 dose, Created by cabinet override lidocaine (PF) (XYLOCAINE) 10 mg/mL (1 %) preservative free injection 10-20 mg 10-20 mg (1-2 mL), subcutaneous, Once, On Sun03/12/24 at 1915, For 1 dose, Administer to insertion site prior to procedure of local anesthesia. Administer volume needed to infiltrate site., Indications: Administration of Local AnesthesiaIndications:Ad ministration of Local Anesthesia Given by Other 03/12/2024 9:30 PM CDT 20 mg Left Forearm lidocaine (PF) (XYLOCAINE) 10 mg/mL (1 %) preservative free injection 200 mg 200 mg (20 mL), infiltration, Once, On Sun03/09/24 at 1315, For 1 dose, Indications: Administration of Local AnesthesiaIndications:Ad ministration of Local Anesthesia Given 03/09/2024 1:12 PM CDT 200 mg lidocaine in dextrose 5% 2 g/250 mL (8 mg/mL) infusion (premix) 1.5 mg/kg/hr ? 59.3 kg [place] weight (11.1188 mL/hr, rounded to 11.12 mL/hr), 8 mg/mL, intravenous, Continuous, Starting on Sun03/11/24 at 1115, Until Sun03/18/24 at 0741, Indications: Pain, I understand that a pain management consult is required and that this therapy can only be ordered by the Pain Service, Palliative Care Service, or ICU team. I attest that I/authorizing provider am an: ICU clinician that will order the pain management consult linked to this order, Call MD for symptoms of toxicity (ringing in ears, metallic taste, somnolence, numb lips) or lidocaine level greater than 5., RoutineIndications:Pain New Bag 03/17/2024 9:00 PM CDT 1.5 mg/kg/hr 11.12 mL/hr Rate/Dose Verify 03/17/2024 11:00 AM CDT 1.5 mg/kg/hr 11.1 2 mL/hr Rate/Dose Verify 03/17/2024 9:00 AM CDT 1.5 mg/kg/hr 11.12 mL/hr linezolid (ZYVOX) tablet 600 mg 600 mg, oral, 2 times daily, First dose on Sun03/14/24 at 1230, For 2 doses, Indications: Prophylaxis, SurgicalIndications:Prophylaxis, Surgical Given 03/14/2024 9:14 PM CDT 600 mg Given 03/14/2024 3:48 PM CDT 600 mg magnesium sulfate 2 g/50 mL in water (premix) 2 g 2 g, intravenous, Administer over 60 Minutes, Once, On Sun03/09/24 at 2215, For 1 dose New Bag 03/09/2024 10:27 PM CDT 2 g magnesium sulfate 2 g/50 mL in water (premix) 2 g 2 g, intravenous, Administer over 60 Minutes, Once, On Sun03/10/24 at 1345, For 1 dose New Bag 03/10/2024 2:37 PM CDT 2 g magnesium sulfate 2 g/50 mL in water (premix) 2 g 2 g, intravenous, Administer over 60 Minutes, Once, On Sun03/12/24 at 0215, For 1 dose, Indications: hypomagnesemiaIndications:hypomagnesemia New Bag 03/12/2024 2:41 AM CDT 2 g magnesium sulfate 2 g/50 mL in water (premix) 2 g 2 g, intravenous, Administer over 60 Minutes, Once, On Sun03/13/24 at 1200, For 1 dose New Bag 03/13/2024 12:06 PM CDT 2 g methocarbamoL (ROBAXIN) tablet 1,000 mg 1,000 mg, oral, 4 times daily, First dose (after last modification) on Sun03/28/24 at 1700 Given 04/07/2024 8:44 AM CDT 1,000 mg Given 04/06/2024 9:39 PM CDT 1,000 mg Given 04/06/2024 5:20 PM CDT 1,000 mg methocarbamoL (ROBAXIN) tablet 500 mg 500 mg, oral, Once, On Sun03/09/24 at 2115, For 1 dose Given 03/09/2024 9:23 PM CDT 500 mg methocarbamoL (ROBAXIN) tablet 500 mg 500 mg, oral, 3 times daily, First dose on Sun03/10/24 at 0945 Given 03/18/2024 9:41 AM CDT 500 mg Given 03/17/2024 8:57 PM CDT 500 mg Given 03/17/2024 3:38 PM CDT 500 mg methocarbamoL (ROBAXIN) tablet 750 mg 750 mg, oral, 3 times daily, First dose (after last modification) on Sun03/18/24 at 1600 Given 03/28/2024 8:56 AM CDT 750 mg Given 03/27/2024 8:17 PM CDT 750 mg Given 03/27/2024 4:34 PM CDT 750 mg methocarbamoL (ROBAXIN) tablet 750 mg 750 mg, oral, 4 times daily, First dose (after last modification) on Sun04/07/24 at 1700 Given 04/08/2024 11:36 AM CDT 750 mg Given 04/08/2024 8:12 AM CDT 750 mg Given 04/07/2024 9:57 PM CDT 750 mg miconazole (SECURA THICK) 2 % cream topical, 2 times daily, First dose (after last modification) on Sun03/14/24 at 0045, For 14 days, Apply to affected area: rash Given 03/27/2024 8:31 AM CDT Given 03/26/2024 9:45 PM CDT Given 03/26/2024 8:30 AM CDT norepinephrine in dextrose 5% (LEVOPHED) 8,000 mcg/250 mL (32 mcg/mL) infusion (premix) 0-2 mcg/kg/min ? 97.3 kg (0-364.875 mL/hr, rounded to 0-364.88 mL/hr), 32 mcg/mL, intravenous, Titrated, Starting on Sun03/11/24 at 1130, Until Sun03/14/24 at 1514, Initial rate: 0.05 mcg/kg/min, Titrate: Up/Down, Titrate by: 0.01 mcg/kg/min, Every: 2 minutes, Goal: MAP, MAP Goal: Other (comment) / 90 and >, Routine Rate/Dose Verify 03/14/2024 3:00 PM CDT 0.11 mcg/kg/min 20.1 mL/hr Rate/Dose Verify 03/14/2024 2:00 PM CDT 0.11 mcg/kg/min 20 .1 mL/hr Rate/Dose Verify 03/14/2024 1:00 PM CDT 0.11 mcg/kg/min 20 .1 mL/hr norepinephrine in dextrose 5% (LEVOPHED) 8,000 mcg/250 mL (32 mcg/mL) infusion (premix) 0-2 mcg/kg/min ? 97.3 kg (0-364.875 mL/hr, rounded to 0-364.88 mL/hr), 32 mcg/mL, intravenous, Titrated, Starting on Sun03/14/24 at 1545, Until Sun03/16/24 at 0844, Initial rate: 0.05 mcg/kg/min, Titrate: Up/Down, Titrate by: 0.01 mcg/kg/min, Every: 2 minutes, Goal: MAP, MAP Goal: 65-75 mmHg, Routine Rate/Dose Change 03/14/2024 7:30 PM CDT 0.01 mcg/kg/min 1.82 mL/hr Rate/Dose Verify 03/14/2024 7:00 PM CDT 0.02 mcg/kg/min 3. 65 mL/hr Rate/Dose Change 03/14/2024 6:15 PM CDT 0.02 mcg/kg/min 3. 65 mL/hr ondansetron (ZOFRAN) 4 mg/2 mL injection - ADS Override Pull Starting on Sun03/10/24 at 1531, For 1 dose, Created by cabinet override ondansetron (ZOFRAN) injection 4 mg 4 mg, intravenous, Administer over 2 Minutes, Every 6 hours PRN, nausea, vomiting, Starting on Sun03/10/24 at 1530 Given 03/10/2024 3:33 PM CDT 4 mg oxyCODONE (ROXICODONE) 1 mg/mL oral solution 5 mg 5 mg, oral, Every 4 hours PRN, 1st line for pain, Starting on Sun03/09/24 at 0624, Indications: PainIndications:Pain Given 03/10/2024 2:09 AM CDT 5 mg Given 03/09/2024 5:29 PM CDT 5 mg Given 03/09/2024 1:49 PM CDT 5 mg oxyCODONE (ROXICODONE) tablet 5 mg 5 mg, oral, Every 4 hours PRN, 1st line for pain, Starting on Sun03/10/24 at 0217, Indications: PainIndications:Pain Given 03/17/2024 6:29 AM CDT 5 mg Given 03/17/2024 2:24 AM CDT 5 mg Given 03/16/2024 8:16 PM CDT 5 mg oxyCODONE (ROXICODONE) tablet 5 mg 5 mg, oral, Once, On Sun03/28/24 at 1200, For 1 dose, Indications: PainIndications:Pain Given 03/28/2024 12:14 PM CDT 5 mg oxyCODONE (ROXICODONE) tablet 7.5 mg 7.5 mg, oral, Every 4 hours PRN, 1st line for pain, Starting on Sun03/17/24 at 1036, Indications: PainIndications:Pain Given 04/07/2024 10:55 AM CDT 7.5 mg Given 04/07/2024 6:55 AM CDT 7.5 mg Given 04/07/2024 2:13 AM CDT 7.5 mg oxyCODONE (ROXICODONE) tablet 7.5 mg 7.5 mg, oral, Every 8 hours PRN, 2nd line for pain, Starting on Sun04/07/24 at 1216, Indications: PainIndications:Pain Given 04/08/2024 9:36 AM CDT 7.5 mg Given 04/07/2024 11:39 PM CDT 7.5 mg Given 04/07/2024 2:35 PM CDT 7.5 mg polyethylene glycol (MIRALAX) packet 17 g 17 g, oral, Daily, First dose on Sun03/17/24 at 1115, Indications: constipationIndications:constipation Given 03/17/2024 11:17 AM CDT 17 g polyethylene glycol (MIRALAX) packet 17 g 17 g, oral, 2 times daily, First dose (after last modification) on Sun03/19/24 at 2100, Indications: constipationIndications:constipation Given 04/08/2024 8:11 AM CDT 17 g Given 04/06/2024 8:21 AM CDT 17 g Given 04/05/2024 8:54 AM CDT 17 g potassium chloride (KLOR-CON) packet 20 mEq 20 mEq, feeding tube, Every 4 hours, First dose on Sun03/09/24 at 2215, For 3 doses, Total dose = 60 mEq. Recommend to dilute each 15 mL with at least 6 ounces of water or juice prior to administration. Dissolve one packet in at least 120 mL of cold water or other beverage prior to administration. Given 03/10/2024 5:14 AM CDT 20 m Eq Given 03/10/2024 2:09 AM CDT 20 mEq Given 03/09/2024 10:27 PM CDT 20 mEq potassium chloride (KLOR-CON) packet 40 mEq 40 mEq, oral, Every 4 hours, First dose (after last modification) on Sun03/10/24 at 1745, For 2 doses, Total dose = 120 mEq. Recommend to dilute each 15 mL with at least 6 ounces of water or juice prior to administration. Dissolve one packet in at least 120 mL of cold water or other beverage prior to administration. Given 03/10/2024 8:43 PM CDT 40 mEq Given 03/10/2024 5:06 PM CDT 40 mEq pregabalin (LYRICA) capsule 100 mg 100 mg, oral, 3 times daily, First dose (after last modification) on Sun03/21/24 at 0900 Given 03/31/2024 9:08 AM CDT 100 mg Given 03/30/2024 8:25 PM CDT 100 mg Given 03/30/2024 5:07 PM CDT 100 mg pregabalin (LYRICA) capsule 150 mg 150 mg, oral, 3 times daily, First dose (after last modification) on Sun03/31/24 at 1600 Given 04/08/2024 8:12 AM CDT 150 mg Given 04/07/2024 9:57 PM CDT 150 mg Given 04/07/2024 5:11 PM CDT 150 mg pregabalin (LYRICA) capsule 75 mg 75 mg, oral, 3 times daily, First dose on Sun03/19/24 at 0945 Given 03/20/2024 9:05 PM CDT 75 mg Given 03/20/2024 3:31 PM CDT 75 mg Given 03/20/2024 8:21 AM CDT 75 mg senna-docusate (PERICOLACE) 8.6-50 mg per tablet 1 tablet 1 tablet, oral, Nightly, First dose on Sun03/09/24 at 2100 Given 03/11/2024 8:54 PM CDT 1 tablet Given 03/10/2024 7:33 PM CDT 1 tablet Given 03/09/2024 9:23 PM CDT 1 tablet senna-docusate (PERICOLACE) 8.6-50 mg per tablet 1 tablet 1 tablet, oral, 2 times daily, First dose (after last modification) on Sun03/12/24 at 2100 Given 04/08/2024 8:11 AM CDT 1 tablet Given 04/07/2024 9:57 PM CDT 1 tablet Given 04/07/2024 8:44 AM CDT 1 tablet sodium chloride 0.9% bolus 1,000 mL 1,000 mL, intravenous, Once, On Sun03/11/24 at 1130, For 1 dose New Bag 03/11/2024 11:39 AM CDT 1,000 mL sodium chloride 0.9% flush 0.5-20 mL 0.5-20 mL, intra-catheter, Every 8 hours scheduled, First dose on Sun03/09/24 at 0645, Flush volume based on line type and size. Given 04/01/2024 6:15 AM CDT 10 mL Given 03/31/2024 9:41 PM CDT 10 mL Given 03/28/2024 5:36 AM CDT 10 mL sodium chloride 0.9% flush 0.5-20 mL 0.5-20 mL, intra-catheter, As needed, line care, Starting on Sun03/09/24 at 0607, Flush volume based on line type and size. Flush before and after each use. Given 03/25/2024 6:35 AM CDT 10 mL Given 03/12/2024 5:10 AM CDT 10 mL sodium chloride 0.9% flush 5-10 mL 5-10 mL, intra-catheter, Every 12 hours scheduled, First dose on Sun03/12/24 at 2100, Flush volume based on line type, size, and protocol. Given 04/07/2024 8:47 AM CDT 10 mL Given 04/03/2024 9:38 AM CDT 10 mL Given 03/27/2024 9:40 PM CDT 10 mL sodium chloride 0.9% flush 5-10 mL 5-10 mL, intra-catheter, Every 12 hours scheduled, First dose on Sun03/12/24 at 2100, Flush volume based on line type, size, and protocol. Given 04/07/2024 8:47 AM CDT 10 mL Given 04/03/2024 9:38 AM CDT 10 mL Given 03/27/2024 9:40 PM CDT 10 mL sodium chloride 0.9% infusion 25 mL/hr, intravenous, Continuous, Starting on Sun03/09/24 at 1230 Rate/Dose Verify 03/12/2024 6:00 AM CDT 25 mL/hr 25 mL/hr Rate/Dose Verify 03/12/2024 5:00 AM CDT 25 mL/hr 25 mL/h r Rate/Dose Verify 03/12/2024 3:58 AM CDT 25 mL/hr 25 mL/h r sodium chloride 0.9% infusion 10 mL/hr, intravenous, Continuous, Starting on Sun03/12/24 at 1030 Rate/Dose Verify 03/17/2024 1:00 AM CDT 10 mL/hr 10 mL/hr Rate/Dose Verify 03/17/2024 12:00 AM CDT 10 mL/hr 10 mL/ hr Rate/Dose Verify 03/16/2024 11:00 PM CDT 10 mL/hr 10 mL/ hr traZODone (DESYREL) tablet 50 mg 50 mg, oral, Nightly, First dose on Sun03/18/24 at 2100 Given 04/07/2024 9:57 PM CDT 50 mg Given 04/06/2024 9:39 PM CDT 50 mg Given 04/05/2024 10:20 PM CDT 50 mg documented in this encounter Discontinued Medications Medication Sig Discontinue Reason Start Date End Da te acetaminophen (TYLENOL) 325 mg tablet Take 2 tablets (650 mg total) by mouth every 6 (six) hours as needed Stop Taking at Discharge 12/14/2023 04/08/2024 LANTUS 100 unit/mL (3 mL) pen for injection Inject 10 Units under the skin daily Stop Taking at Discharge 02/12/2024 04/08/2024 documented as of this encounter Historical Medications * This list may reflect changes made after this encounter. OneTouch Ultra Test strip 1 each by other route 3 (three) times a day 11/15/2023 omeprazole (PriLOSEC) 40 mg capsule Take 1 capsule (40 mg total) by mouth daily 02/29/2024 meloxicam (MOBIC) 15 mg tablet Take 1 tablet (15 mg total) by mouth daily 02/29/2024 glipiZIDE (GLUCOTROL) 10 mg tablet Take 1 tablet (10 mg total) by mouth 2 (two) times a day before breakfast and lunch 02/29/2024 cyclobenzaprine (FLEXERIL) 10 mg tablet Take 1 tablet (10 mg total) by mouth 3 (three) times a day as needed for muscle spasms 02/12/2024 blood-glucose meter (My[employer] MediaTouch Ultra2 Meter) misc Inject 1 Units under the skin 2 (two) times a day 11/12/2023 bacitracin 500 unit/gram ointment Apply 1 Application topically 3 (three) times a day 12/14/2023 LANTUS 100 unit/mL (3 mL) pen for injection Inject 10 Units under the skin daily 02/12/2024 gabapentin (NEURONTIN) 300 mg capsule Take 1 capsule (300 mg total) by mouth 3 (three) times a day 02/29/2024 acetaminophen (TYLENOL) 325 mg tablet Take 2 tablets (650 mg total) by mouth every 6 (six) hours as needed 12/14/2023 4 added in this encounter Active and Recently Administered Medications Times are shown in CDT. Scheduled Medication Order 04/06/2024 04/07/2024 04/08/2024 acetaminophen (TYLENOL) tablet 1,000 mg (CANCELED) 1,000 mg, oral, Every 6 hours scheduled, First dose (after last modification) on Sun03/13/24 at 1200 0044 (Given - Provider: Lila Barclay RN)0822 (Given - Provider: Brooke Junior RN)1247 (Given - Provider: Brooke Junior RN)1719 (Given - Provider: Brooke Junior RN) 0213 (Given - Provider: Leighann Solitario)0654 (Given - Provider: Leighann Solitario)1200 (Not Given - Provider: Diana Bowers RN - Reason: Order Discontinued) enoxaparin (LOVENOX) syringe 30 mg 30 mg, subcutaneous, Every 12 hours scheduled, First dose (after last modification) on Sun03/18/24 at 2100, Indications: VTE Prophylaxis 0822 (Given - Provider: Brooke Junior RN)2143 (Given - Provider: Leighann Solitario) 0844 (Given - Provider: Diana Bowers RN)2157 (Given - Provider: Jenifer Murillo RN) 0811 (Given - Provider: Chaim Pacheco RN) insulin glargine (LANTUS, SEMGLEE) 100 unit/mL injection 30 Units 30 Units, subcutaneous, Every morning, First dose (after last modification) on Sun03/25/24 at 0900, Do not hold if NPO. Do not mix with other insulins, Indications: Diabetes Mellitus 0821 (Given - Provider: Brooke Junior RN) 0845 (Given - Provider: Diana Bowers RN) 0849 (Given - Provider: Chaim Pacheco, RN) insulin lispro (HumaLOG, ADMELOG) 100 unit/mL injection 0-10 Units 0-10 Units, subcutaneous, 5 times daily (with meals, nightly, and 0200), First dose (after last modification) on Sun03/29/24 at 1200, Blood glucose mg/dL: 149 or less: No insulin 150-199: add 2 unit 200-249: add 4 units 250-299: add 6 units 300-349: add 8 units and notify physician for adjustment of insulin orders. 350-399: add 10 units and notify physician for adjustment of insulin orders. Over 400: Notify physician for adjustment of insulin orders. Do NOT hold for NPO Status, Indications: Diabetes Mellitus 0823 (Not Given - Provider: Brooke Junior RN - Reason: Order parameters not met)1246 (Given - Provider: Brooke Junior RN)1731 (Given - Provider: Brooke Junior RN)2149 (Given - Provider: Leighann Solitario) 0248 (Given - Provider: Leighann Solitario)0845 (Given - Provider: Diana Bowers RN)1334 (Given - Provider: Diana Bowers RN)1819 (Not Given - Provider: Diana Bowers RN - Reason: Order parameters not met)2157 (Given - Provider: Jenifer Murillo RN) 0224 (Given - Provider: Jenifer Murillo RN)0848 (Given - Provider: Chaim Pacheco, RN)1308 (Given - Provider: Chaim Pacheco, RN) insulin lispro (HumaLOG, ADMELOG) 100 unit/mL injection 20 Units 20 Units, subcutaneous, 3 times daily with meals, First dose (after last modification) on Sun03/25/24 at 0830, If BG greater than or equal to [...] less than 70 mg/dL., Indications: Diabetes Mellitus 0821 (Given - Provider: Brooke Junior RN)1246 (Given - Provider: Brooke Junior RN)1719 (Given - Provider: Brooke Junior RN) 0845 (Given - Provider: Diana Bowers RN)1334 (Given - Provider: Diana Bowers RN)1839 (Given - Provider: Diana Bowers RN) 0849 (Given - Provider: Chaim Pacheco, JULISSA)1308 (Given - Provider: Chaim Pacheco, JULISSA) lidocaine (ASPERCREME) 4 % patch 2 patch 2 patch, transdermal, Administer over 12 Hours, Every 24 hours, First dose on Sun03/18/24 at 1230, Apply to affected area: shoulder, Laterality: Bilateral 0130 (Medication Removed - Provider: Lila Barclay RN)1245 (Medication Applied - Provider: Brooke Junior RN) 0215 (Medication Removed - Provider: Leighann Solitario)1335 (Medication Applied - Provider: Diana Bowers RN - Comment: Back and leg)2342 (Medication Removed - Provider: Jenifer Murillo RN) 1136 (Medication Applied - Provider: Chaim Pacheco RN)1527 (Due: Medication Removed - Provider: Automatic Discharge Provider - Comment: Time automatically adjusted from order being discontinued) methocarbamoL (ROBAXIN) tablet 1,000 mg (CANCELED) 1,000 mg, oral, 4 times daily, First dose (after last modification) on Sun03/28/24 at 1700 0822 (Given - Provider: Brooke Junior RN)1246 (Given - Provider: Brooke Junior RN)1720 (Given - Provider: Brooke Junior RN)2139 (Given - Provider: Leighann Solitario) 0844 (Given - Provider: Diana Bowers RN)1200 (Not Given - Provider: Diana Bowers RN - Reason: Order Discontinued) methocarbamoL (ROBAXIN) tablet 750 mg 750 mg, oral, 4 times daily, First dose (after last modification) on Sun04/07/24 at 1700 1711 (Given - Provider: Diana Bowers RN)2156 (Given - Provider: Jenifer Murillo RN) 0812 (Given - Provider: Chaim Pacheco, JULISSA)1136 (Given - Provider: Chaim Pacheco, RN) polyethylene glycol (MIRALAX) packet 17 g 17 g, oral, 2 times daily, First dose (after last modification) on Sun03/19/24 at 2100, Indications: constipation 0130 (Not Given - Provider: Lila Barclay RN - Reason: Patient/family refused)08 (Given - Provider: Brooke Junior RN)2143 (Not Given - Provider: Leighann Solitario - Reason: Patient/family refused) 0844 (Not Given - Provider: Diana Bowers RN - Reason: Patient/family refused - Comment: patient stated she had a large Bm yesterday.)2157 (Not Given - Provider: Jenifer Murillo RN - Reason: Patient/family refused) 0811 (Given - Provider: Chaim Pacheco, JULISSA) pregabalin (LYRICA) capsule 150 mg 150 mg, oral, 3 times daily, First dose (after last modification) on Sun03/31/24 at 1600 0822 (Given - Provider: Brooke Junior RN)1542 (Given - Provider: Brooke Junior RN)2139 (Given - Provider: Leighann Solitario) 0844 (Given - Provider: Diana Bowers RN)171 (Given - Provider: Diana Bowers RN)215 (Given - Provider: Jenifer Murillo RN) 0812 (Given - Provider: Chaim Pacheco, JULISSA) senna-docusate (PERICOLACE) 8.6-50 mg per tablet 1 tablet 1 tablet, oral, 2 times daily, First dose (after last modification) on Sun03/12/24 at 2100 0822 (Given - Provider: Brooke Junior RN)214 (Given - Provider: Leighann Solitario) 0844 (Given - Provider: Diana Bowers RN)215 (Given - Provider: Jenifer Murillo RN) 0811 (Given - Provider: Chaim Pacheco RN) sodium chloride 0.9% flush 0.5-20 mL 0.5-20 mL, intra-catheter, Every 8 hours scheduled, First dose on Sun03/09/24 at 0645, Flush volume based on line type and size. 0823 (Not Given - Provider: Brooke Junior RN - Reason: Loss of IV access)1344 (Not Given - Provider: Brooke Junior RN - Reason: Loss of IV access)2155 (Not Given - Provider: Leighann Solitario - Reason: Patient/family refused) 0704 (Not Given - Provider: Leighann Solitario - Reason: Loss of IV access)1400 (Not Given - Provider: Diana Bowers RN - Reason: Loss of IV access)2159 (Not Given - Provider: Jenifer Murillo RN - Reason: Other - Comment: no access) 0517 (Not Given - Provider: Jenifer Murillo RN - Reason: Other)0813 (Not Given - Provider: Chaim Pacheco RN - Reason: Loss of IV access)1309 (Not Given - Provider: Chaim Pacheco RN - Reason: Loss of IV access) sodium chloride 0.9% flush 5-10 mL 5-10 mL, intra-catheter, Every 12 hours scheduled, First dose on Sun03/12/24 at 2100, Flush volume based on line type, size, and protocol. 0823 (Not Given - Provider: Brooke Junior RN - Reason: Loss of IV access)1927 (Not Given - Provider: Leighann Solitario - Reason: Loss of IV access) 0847 (Given - Provider: Diana Bowers RN)2159 (Not Given - Provider: Jenifer Murillo RN - Reason: Other - Comment: no access) 0814 (Not Given - Provider: Chaim Pacheco RN - Reason: Loss of IV access) sodium chloride 0.9% flush 5-10 mL 5-10 mL, intra-catheter, Every 12 hours scheduled, First dose on Sun03/12/24 at 2100, Flush volume based on line type, size, and protocol. 0823 (Not Given - Provider: Brooke Junior RN - Reason: Loss of IV access)1928 (Not Given - Provider: Leighann Solitario - Reason: Loss of IV access) 0847 (Given - Provider: Diana Bowers RN)2158 (Not Given - Provider: Jenifer Murillo RN - Reason: Other - Comment: no access) 0813 (Not Given - Provider: Chaim Pacheco RN - Reason: Loss of IV access) traZODone (DESYREL) tablet 50 mg 50 mg, oral, Nightly, First dose on Sun03/18/24 at 2100 2139 (Given - Provider: Leighann Solitario) 2157 (Given - Provider: Jenifer Murillo RN) PRN Medication Order 04/06/2024 04/07/2024 04/08/2024 acetaminophen (TYLENOL) tablet 1,000 mg 1,000 mg, oral, Every 6 hours PRN, 1st line for pain, Starting on Sun04/07/24 at 1215 1908 (Given - Provider: Diana Bowers RN) 0937 (Not Given - Provider: Chaim Pacheco RN - Reason: Patient/family refused)1147 (Given - Provider: Chaim Pacheco, JULISSA) benzocaine-menthoL (CHLORASEPTIC) lozenge 1 lozenge 1 lozenge, mouth/throat, Every 3 hours PRN, sore throat, Starting on 03/15/24 at 0437 Carrier Fluids for Secondary Infusion - 0.9% Sodium Chloride 30 mL, intravenous, As needed, For priming tubing and/or flushing, Starting on Sun03/09/24 at 0607, 0-250 ml/hr to flush line after IV infusions when no maintenance IV ordered. Infuse 30mL at the same rate as the secondary infusion. Run as primary IV, not intended for KVO. dextrose (D10W) 10% bolus 250 mL(Linked Group 1) 250 mL, intravenous, at 1,000 mL/hr, Administer over 15 Minutes, Every 15 min PRN, blood glucose less than 70 mg/dL and UNABLE to swallow/take PO glucose/juice., Starting on Sun03/16/24 at 0846, After treatment for hypoglycemia, recheck BG followed [...] glucose less than 70 mg/dL, Starting on Sun03/16/24 at 0846, If patient is alert and able to [...] unable to take PO glucose/juice., Starting on Sun03/16/24 at 0846, After Glucagon is administered, position patient on [...] 1 mL SWFI. Use immediately following reconstitution. hydrOXYzine (ATARAX) tablet 50 mg 50 mg, oral, Every 4 hours PRN, itching, anxiety, Starting on Sun03/17/24 at 1764 5047 (Given - Provider: Lila Barclay RN) insulin lispro (HumaLOG, ADMELOG) 100 unit/mL injection 2 Units 2 Units, subcutaneous, Every 6 hours PRN, high blood sugar, with snacks, Starting on Sun03/25/24 at 0734, Please give with snacks., Indications: Diabetes Mellitus oxyCODONE (ROXICODONE) tablet 7.5 mg (CANCELED) 7.5 mg, oral, Every 4 hours PRN, 1st line for pain, Starting on Sun03/17/24 at 1036, Indications: Pain 0347 (Given - Provider: Lila Barclay, JULISSA)0822 (Given - Provider: Brooke Junior, RN)1246 (Given - Provider: Brooke Junior, JULISSA)1720 (Given - Provider: Brooke Junior, RN)2149 (Given - Provider: Leighann Solitario) 0213 (Given - Provider: Leighann Solitario)0655 (Given - Provider: Leighann Solitario)1055 (Given - Provider: Diana Bowers RN) oxyCODONE (ROXICODONE) tablet 7.5 mg 7.5 mg, oral, Every 8 hours PRN, 2nd line for pain, Starting on Sun04/07/24 at 1216, Indications: Pain 1435 (Given - Provider: Diana Bowers RN)2339 (Given - Provider: Jenifer Murillo RN) 0936 (Given - Provider: Chaim Pacheco RN) Linked Groups Order Group 1: dextrose gel in packet 15 gJump to med 15 g, oral, Every 15 min PRN, low blood sugar, blood glucose less than 70 mg/dL, Starting on Sun03/16/24 at 0846, If patient is alert and able to [...] UNABLE to swallow/take PO glucose/juice., Starting on Sun03/16/24 at 0846, After treatment for hypoglycemia, recheck BG followed [...] Count Last Ordered Date First Ordered Date oxyCODONE (ROXICODONE) tablet 7.5 mg 1 03/14 miconazole 2 % cream 1 03/30/2024 gabapentin (NEURONTIN) capsule 300 mg 1 methocarbamoL (ROBAXIN) tablet 750 mg 1 insulin glargine (LANTUS, SE MGLEE) 100 unit/mL injection 28 Units 1 03/24/2024 insulin lispro (HumaLOG, ADM ELOG) 100 unit/mL injection 14 Units 1 03/22/2024 bisacodyL (DULCOLAX) suppository 10 mg 1 dextrose (D10W) 10% bolus 250 mL 2 03/16/20 24 03/09/2024 dextrose gel in packet 15 g 2 03/16/2024 03/09/2024 glucagon injection 1 mg 2 03/16/202402/11 enoxaparin (LOVENOX) syringe 40 mg 1 2023 haloperidol (HALDOL) 5 mg/mL injection - ADS Override Pull 1 03/14/2024 haloperidol (HALDOL) injection 5 mg 2 03/14 miconazole (SECURA THICK) 2 % cream 1 03/14 vancomycin 1500 mg/515 mL in sodium chloride 0.9% (premix) 1,500 mg 1 03/14/2024 methylPREDNISolone acetate ( DEPO-medrol) injection 1 03/13/2024 sodium chloride 0.9% irrigation 1 thrombin-recombinant 5,000 u nit topical solution 1 03/13/2024 vancomycin (VANCOCIN) 3,000 mg in sodium chloride 0.9% 3,000 mL irrigation solution 03/13/2024 vasopressin in 5% dextrose ( VASOSTRICT) 20 unit/100 mL (0.2 unit/mL) infusion 1 03/13/2024 magnesium sulfate 1 g/100 mL in dextrose 5% (premix) 1 g 1 03/12/2024 sodium chloride 0.9% flush 5-20 mL 2 2023 potassium chloride (KLOR-CON ) packet 40 mEq 1 03/10/2024 dextrose 5% and Lactated Ringer's infusion 1 03/09/2024 droPERidol (INAPSINE) injection 1.25 mg 1 0 03/09/2024 HYDROmorphone (DILAUDID) injection 0.5 mg 1 03/09/2024 insulin lispro (HumaLOG, ADM ELOG) 100 unit/mL injection 0-5 Units 1 03/09/2024 Lab Orders Without Results Count Last Ordered D ate First Ordered Date POCT GLUCOSE DEVICE 210 04/08/2024 03/08/20 24 HEMOGLOBIN A1C 2 03/12/2024 POCT CREATININE - DEVICE 1 03/08/2024 POCT KETONE, BLOOD 1 03/08/2024 Diet Count Last Ordered Date First Orde red Date ADULT DISCHARGE DIET 1 04/08/2024 Nursing Count Last Ordered Date First Orde red Date DISCHARGE ACTIVITY 1 04/08/2024 DISCHARGE CALL PROVIDER 6 04/08/2024 DISCHARGE DRESSING 3 04/08/2024 HEIGHT AND WEIGHT 1 03/24/2024 NURSING COMMUNICATION 2 03/18/20242023 DISCONTINUE VASCULAR ACCESS (SPECIFY) 1 09/2023 INSERT CASTANON CATHETER 1 03/09/2024 NOTIFY PROVIDER (SPECIFY) 3 03/09/2024 QTC MONITORING 1 03/09/2024 WEIGH PATIENT 1 03/09/2024 MISCELLANEOUS NURSING CARE ORDER (SPECIFY) 1 03/08/2024 Consult Count Last Ordered Date First Orde red Date AUTHORIZATION FOR POST-ACUTE CARE 1 024 IP CONSULT TO SENIOR RESEARCH ENGINEER 1 IP CONSULT TO NUTRITION SERVICES 1 03/26/20 24 IP CONSULT TO SPIRITUAL CARE 1 03/26/2024 CONSULT TO WOUND CARE 3 03/22/20242023 IP CONSULT TO SOCIAL WORK 1 03/18/2024 CONSULT TO ENDOCRINOLOGY DIABETES 1 024 IP CONSULT TO ANESTHESIOLOGY 1 03/12/2024 IP CONSULT TO VASCULAR ACCESS TEAM 1 2023 IP CONSULT TO ORAL AND MAXIL LOFACIAL SURGERY 1 03/10/2024 IP CONSULT TO ENT 1 03/09/2024 IP CONSULT TO VASCULAR SURGERY 1 03/09/2024 IP CONSULT TO NEUROSURGERY 1 03/08/2024 Admission Count Last Ordered Date First Orde red Date ADMIT TO INPATIENT 1 03/09/2024 Transfer Count Last Ordered Date First Orde red Date TRANSFER PATIENT TO NEW UNIT 2 03/20/2024 03/16/2024 Discharge Count Last Ordered Date First Orde red Date DISCHARGE PATIENT 1 04/08/2024 CORE MEASURES Count Last Ordered Date First Ord ered Date REASON FOR NO VTE PROPHYLAXI S - HOSPITAL ADMISSION - MECHANICAL 1 03/09/2024 REASON FOR NO VTE PROPHYLAXI S - HOSPITAL ADMISSION - MEDICATIONS 1 03/09/2024 ADT Patient Update Count Last Ordered Date Firs t Ordered Date UPDATE LEVEL OF CARE/SERVICE 1 03/09/2024 documented in this encounter Additional Health Concerns Infection Onset Date Last Indicated Resolved Time MRSA Comment:IP reviewed 03/10/2024 Postive last at [facility] on 01/23/24 Added from external infection. Source: [facility] - [facility], [facility]. 07/06/2017 Ring Surveillance 03/29/2024 03/29/2024 04/18/2024 12:36 PM CDT documented as of this encounter Care Teams Equipment Associate Relationship Specialty Start Date End Date Nayana Garber PA [address] [place] [id number] PCP - General Emergency Medicine 06/18/23 04/09/24 documented as of this encounter
--- OUTSIDE RECORDS SUMMARY | 2024-08-23 18:38 | XMS_ITS | Encounter Summary ---
Author Organization [facility] Address [address] [facility] [address] [place] [address] Phone Care Team Providers Care Trust Accounts Supervisor Name Role Phone Nayana Garber Primary Care Provider [phone] No, Physician Primary Care Provider [phone] Reason for Referral * Consultation (Routine) - Closed Specialty Diagnoses / Procedures Referred By Rebekah t Referred To Contact Neurosurgery Diagnoses S/P cervical spinal fusion Marcio Tapia MD [address] [place] [address] Phone: tel: fax: [facility] (All Locations) Referral ID Status Reason Start Date Expiration Date V isits Requested Visits Authorized [id number] Closed Specialty Services Required 03/25/2024 04/24/2025 1 1 Question Answer Please select the performing region: [facility] (All Locations) [167] # of visits: 1 Encounter Details Date Type Department Care Team (Late st Contact Info) Description 03/25/2024 Telephone [facility] Neurosurgery [facility] Medical Office Building [address] [place] [address] Marcio Tpaia MD [address] [place] [address] Social History Tobacco Use Types Packs/Day Years Used Date Smoking Tobacco: Every Day Cigarettes [facility] Utilities Answer Date Recorded In the [...] often do you attend chur ch or gnosticist services? Patient unable to answer 04/10/2024 Do you belong to any clubs o r organizations such as faith groups, unions, fraternal or athletic groups, or [...] any time in the past 12 m [facility], were you homeless or living in a custodial (including now)? Patient unable to answer 03/12/2024 Personal Safety Answer Date Recorded Have you ever been in or are you currently in a harmful physical or emotional relationship or is someone making you feel afraid or unsafe? 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 Reason for visit: Post Op (surgery within last 90 days) Date: 05/07/24 Time: 1pm [facility]: [facility] ([facility]) Provider Dr. Tapia Routed: ANITA Tapia Send Letter to PCP for Insurance Auth: No, no pcp on file to send to. Was tally used? N/A * Telephone Encounter - Inga Rodriguez RN - 03/25/2024 4:05 PM CDT Postop appt with CM scheduled 04/30. Appt to be listed on AVS at discharge. * Telephone Encounter - Inga Rodriguez RN - 03/25/2024 4:01 PM CDT ----- Message from Varun Mcneil MD sent at 03/25/2024 12:31 PM CDT ----- Regarding: follow up Please schedule a follow-up appointment for Farzana Bran (: 1965) to be seen by Willie in4-6 weeks with upright AP and lateral xrays of the cervical spine. Thank you Varun Mcneil MD documented in this encounter Plan of Treatment Scheduled Referrals Name Type Priority Associated Diagnoses Order Schedule Ambulatory referral to Neurosurgery Outpatient Referral Routine S/P cervical spinal fusion Expected: 04/08/2024 (Approximate), Expires: 03/25/2025 documented as of this encounter Visit Diagnoses Diagnosis S/P cervical spinal fusion- Primary Arthrodesis status documented in this encounter Additional Health Concerns Infection Onset Date Last Indicated Resolved Time MRSA Comment:IP reviewed 03/10/2024 Postive last at [facility] on 01/23/24 Added from external infection. Source: [facility] - [facility], [facility]. 07/06/2017 Ring Surveillance 03/29/2024 03/29/2024 04/18/2024 12:36 PM CDT documented as of this encounter Care Teams Trust Accounts Supervisor Relationship Specialty Start Date End Date Nayana Garber PA [address] [place] [id number] PCP - General Emergency Medicine 06/18/23 04/09/24 No, Physician PCP - General 04/10/24 documented as of this encounter
--- OUTSIDE RECORDS SUMMARY | 2024-08-23 18:39 | XMS_ITS | Encounter Summary ---
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 [id number] PCP - General Emergency Medicine 06/18/23 04/09/24 documented as of this encounter
--- OUTSIDE RECORDS SUMMARY | 2024-08-23 18:39 | XMS_ITS | Encounter Summary ---
Author Organization [facility] Healthcare Address [address] [place] [address] Care Team Providers Care Copy Holder Name Role Phone Nayana Garber Primary Care Provider + [phone] Encounter Details Date Type Department Care Team (Late st Contact Info) Description 03/09/2024 2:05 PM CDT Anesthesia Event [facility] Operating Room [address] [place] [address] Haley Pereira MD [address] [place] [address] Anesthesia Record Procedure Summary Procedure Name Responsible Anesthesiologist Anesthesia Start Time Anesthesia Stop Time T9-L2 posterior spinal fusion (Spine Lumbar) Events No events on file. Meds * Agents No agents on file. * Blood No blood administrations on file. Lines, Drains, and Airways Type Details Placement Removal Wound 03/09/24; 0600; Toe D1, great; Anterior, Left; Ulceration (non-pressure ulcer) wound assessed 03/10/24--will not follow 03/09/24 0600 by Justyna Villarreal RN Wound 03/13/24; 2137; Incision; Back 0 03/13/242137 by Justyna Villarreal, cat dog or other pet groomer 03/18/24; 1703; N; M ASD; Groin; Anterior, Left 03/18/241702 by Justyna Villarreal RN Wound 03/19/24; 1200; N (p er pt); MASD; Perineum; Posterior; redness, tender 03/19/24 1200 by Justyna Villarreal RN documented in this encounter Social History Tobacco Use Types Packs/Day Years Used Date Smoking Tobacco: Never Assessed [facility] Utilities Answer Date Recorded [...] answer 03/12/2024 How often do you attend chur ch or sikhism services? Patient unable to answer 03/12/2024 Do [...] any time in the past 12 m [facility], were you homeless or living in a assisted (including now)? Patient unable to answer 03/12/2024 Personal Safety Answer Date Recorded Have you ever been in or are you currently in a harmful physical or emotional relationship or is someone making you feel afraid or unsafe? Denies 03/08/2024 Comments Unknown Sex and Gender Information Value Date Recorded Sex Assigned at Not on file Legal Sex Female 10:11 AM [employer] Gender Identity Not on file Sexual Orientation Not on file documented as of this encounter OR Notes * Anesthesia Preprocedure Evaluation - Haley Pereira MD - 03/09/2024 12:11 AM CDT Anesthesia Evaluation Farzana Bran is a 59 y.o. female T9-L2 posterior spinal fusion (Spine Lumbar) SPINAL CORD MONITORING (Bilateral) Pre-Op Diagnosis Codes: * Closed unstable burst fracture of eleventh thoracic vertebra, initial encounter ([facility]) [S22.082A] HISTORY Past Medical History Information obtained from: chart. 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 Cardiovascular Cardiac system: negative Respiratory + Current smoker (vapes) Respiratory system: negative Hepatic / Heme + Liver disease (new imaging finding of cirrhosis/liver lesions possible cholangiocarcinoma, findings have not yet been discussed with patient given other acute injuries at this time) Renal / Renal/ system: negative Musculoskeletal/Pain Comments: Left 4th through 8th rib fractures Acute C5-C7 fractures (?right C5 transverse foramen, minimally displaced right C6 transverse foramen, mildly displaced left C7 lamina fracture suspected to be chronic) Endocrine / Other + Diabetes mellitus - Diabetes type 2. Diabetic complications: neuropathy. Outpatient insulin use: current. Pt reported HgA1c: 8.5. + Obesity (BMI >30) + Infectious disease (recent postoperative left great toe infection (MRSA), home IV vanc caused rash, switched to PO doxycycline with EOT date 03/12) - MRSA and wound infection. PAT Summary and Plans Cardiac risk classification of planned procedure: intermediate cardiac risk. Patient Active Problem List Diagnosis Date Noted ??? Closed unstable burst fracture of T11 vertebra (HCC) 03/08/2024 No past medical history on file. No past surgical history on file. OB History No obstetric history on file. Allergies Allergen Reactions ??? Naproxen Hives No medications on file. Current Facility-Administered Medications: ??? ampicillin-sulbactam (UNASYN) 3 g/110 mL in sodium chloride 0.9% (premix) 3 g, 3 g, intravenous, Q12H OLIVIA, 3 g at 03/08/24 2341 ??? fentaNYL (SUBLIMAZE) preservative free injection 50 mcg, 50 mcg, intravenous, Q1H PRN, 50 mcg at 03/08/24 2340 No current outpatient medications on file. Social History Tobacco Use Smoking Status Not on file Smokeless Tobacco Not on file Alcohol Use: Alcohol Misuse (12/17/2023) Received from [facility] AUDIT-C ??? Frequency of Alcohol Consumption: Monthly or less ??? Average Number of Drinks: 3 or 4 ??? Frequency of Binge Drinking: Monthly Substance and Sexual Activity Drug Use Not on file No family history on file. PAT Physical Exam Airway Exam: Cervical ROM: unable to evaluate and c-collar in place Vitals: 03/08/24 1930 03/08/24 2100 03/08/24 2200 BP: (!) 185/86 158/86 Pulse: 102 101 99 Resp: 16 16 Temp: SpO2: 93% 94% 93% PT: No results found for requested labs within last 30 days. INR: No results found for requested labs within last 30 days. APTT: No results found for requested labs within last 30 days. Hgb A1C: No results found for requested labs within last 30 days. CBC RBC: 03/08/2024: 4.29 M/cumm RDW: No results found for requested labs within last 30 days. MCHC: 03/08/2024: 32.8 g/dL MCH: 03/08/2024: 27.7 pg MCV: 03/08/2024: 84.6 fL Hct: 03/08/2024: 36.3 % Hgb: 03/08/2024: 11.9 g/dL WBC: 03/08/2024: 13.7 K/cumm (H) MPV: 03/08/2024: 9.6 fL Platelets: 03/08/2024: 196 K/cumm RDW CV: 03/08/2024: 14.7 % RDW Sd: 03/08/2024: 43.9 fL BMP Glucose: 03/08/2024: 276 mg/dL (H) Calcium: 03/08/2024: 8.9 mg/dL Sodium: 03/08/2024: 138 mmol/L Potassium: 03/08/2024: See Comment mmol/L CO2: 03/08/2024: 25 mmol/L Chloride: 03/08/2024: 102 mmol/L BUN: 03/08/2024: 20 mg/dL Creatinine: 03/08/2024: 0.6 mg/dL Anesthesia Plan ASA 3 Planned anesthesia: General TIVA Invasive Monitors Planned: Invasive monitors planned: arterial line. Induction: Induction: intravenous. Postoperative Plan: Postoperative administration opioids intended. No postoperative mechanical ventilation intended. Planned trial extubation. Consent and Attending signature: I and/or my [...] Diagnoses Not on filedocumented in this encounter Care Teams Copy Holder Relationship Specialty Start Date End Date Nayana Garber PA [address] [place] [address] PCP - General Emergency Medicine 06/18/23 04/09/24 documented as of this encounter
--- OUTSIDE RECORDS SUMMARY | 2024-08-23 18:39 | XMS_ITS | Encounter Summary ---
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 injection 50 mcg [[id number]] Ordering Provider: Rosalio Calixto MD Status: Completed [...] Performed by: Brionna Pitt RN Scanned Package: 4444-0979-24 ioversoL (OPTIRAY 350) syringe 100 mL [[id number]] Ordering Provider: Rosalio Calixto MD Status: Completed [...] RT ioversoL (OPTIRAY 350) syringe 125 mL [[id number]] Ordering Provider: Rosalio Calixto MD Status: Completed (Past End Date/Time) Ordered On: 03/08/242321 Starts/Ends: 03/08/242321 - 03/08/242353 Ordered Dose (Remaining/Total): 125 mL (0/1) Route: intravenous Frequency: Once in imaging Ordered Rate/Order Duration: -- / -- Line Med Link Info Comment Peripheral IV 03/08/24 20 G Distal;Left;Posterior Forearm 03/08/242353 by Sheyla Hill, RT -- Timestamps Action Dose Route Other Information 03/08/242353 Contrast Given 120 mL intravenous Performed by: Sheyla Hill, RT gadoterate meglumine injection 14 mL [[id number]] Ordering Provider: Rosalio Calixto MD Status: Completed [...] (HumaLOG, ADMELOG) 100 unit/mL injection 4 Units [[id number]] Ordering Provider: Ho An MD Status: Completed (Past End Date/Time) Ordered On: 03/09/24332 Starts/Ends: 03/09/24333 - 03/09/24342 Ordered Dose (Remaining/Total): 4 Units (0/1) Route: subcutaneous Frequency: Once Ordered Rate/Order Duration: -- / -- Timestamps Action Dose Route / Site Other Information 03/09/24342 Given 4 Units subcutaneous Left Lower Abdomen Performed by: Brionna Pitt RN Scanned Package: 2065-1280-71 droPERidol (INAPSINE) injection 1.25 mg [[id number]] Ordering Provider: Ho An MD Status: Completed [...] Performed by: Odilia Vega RN Scanned Package: 7498-5667-81 sodium chloride 0.9% flush 0.5-20 mL [[id number]] Ordering Provider: Ericka Estes MD Status: Verified Ordered On: 03/09/24608 Start: 03/09/24644 Ordered Dose (Remaining/Total): 0.5-20 mL (--/--) Route: intra-catheter Frequency: Every 8 hours scheduled Ordered Rate/Order Duration: -- / -- Admin Instructions: Flush volume based on line type and size. Timestamps Action Dose Route Other Information 04/01/24 0615 Given 10 mL intra-catheter Performed by: Jose Arechiga RN Scanned Package: [id number] sodium chloride 0.9% flush 0.5-20 mL [[id number]] Ordering Provider: Ericka Estes MD Status: Verified [...] Performed by: Isha Cox RN Scanned Package: [id number] Carrier Fluids for Secondary Infusion - 0.9% Sodium Chloride [[id number]] Ordering Provider: Ericka Estes MD Status: Dispensed [...] (1 %) preservative free injection 200 mg [[id number]] Ordering Provider: Varun Song MD Status: Completed (Past End Date/Time) Ordered On: 03/09/24 1240 Starts/Ends: 03/09/24 1315 - 03/09/24 1312 Ordered Dose (Remaining/Total): 20 mL (0/1) Route: infiltration Frequency: Once Ordered Rate/Order Duration: -- / -- Timestamps Action Dose Route Other Information 03/09/24 1312 Given 200 mg infiltration Performed by: Keyonna Hernandez RN HYDROmorphone (DILAUDID) injection 0.5 mg [[id number]] Ordering Provider: Varun Song MD Status: Completed [...] halo placement droPERidol (INAPSINE) injection 1.25 mg [[id number]] Ordering Provider: Varun Song MD Status: Dispensed (Past End Date/Time) Ordered On: 03/09/24 133 Starts/Ends: 03/09/24 141 - 03/10/24 141 Ordered Dose (Remaining/Total): 1.25 mg (1/1) Route: intravenous Frequency: Once Ordered Rate/Order Duration: -- / -- Admin Instructions: If administered IV push, administer over 5 min for adults. (No admins scheduled or recorded for this medication) HYDROmorphone (DILAUDID) injection 0.5 mg [[id number]] Ordering Provider: Varun Song MD Status: Completed (Past End Date/Time) Ordered On: 03/09/24 1337 Starts/Ends: 03/09/24 141 - 03/09/24 1336 Ordered Dose (Remaining/Total): 0.5 mg (0/1) Route: intravenous Frequency: Once Ordered Rate/Order Duration: -- / 2 Minutes Timestamps Action Dose / Duration Route Other Information 03/09/24 1334 Given 0.5 mg 2 Minutes intravenous Performed by: Keyonna Hernandez RN Comments: halo placement methocarbamoL (ROBAXIN) tablet 500 mg [[id number]] Ordering Provider: Bernardino Gleason MD Status: Completed (Past End Date/Time) Ordered On: 03/09/242042 Starts/Ends: 03/09/242114 - 03/09/242122 Ordered Dose (Remaining/Total): 500 mg (0/1) Route: oral Frequency: Once Ordered Rate/Order Duration: -- / -- Timestamps Action Dose Route Other Information 03/09/242122 Given 500 mg oral Performed by: Haley Varner RN Scanned Package: 11548-822-24 magnesium sulfate 2 g/50 mL in water (premix) 2 g [[id number]] Ordering Provider: Bernardino Gleason MD Status: Completed (Past End Date/Time) Ordered On: 03/09/242134 Starts/Ends: 03/09/242214 - 03/09/242326 Ordered Dose (Remaining/Total): 2 g (0/1) Route: intravenous Frequency: Once Ordered Rate/Order Duration: -- / 60 Minutes Timestamps Action Dose / Duration Route Other Information 03/09/242226 New Bag 2 g 60 Minutes intravenous Performed by: Haley Varner RN Scanned Package: 78737-537-83 potassium chloride (KLOR-CON) packet 20 mEq [[id number]] Ordering Provider: Bernardino Gleason MD Status: Completed [...] Performed by: Haley Varner RN Scanned Package: [address]-5 HYDROmorphone (DILAUDID) injection 0.5 mg [[id number]] Ordering Provider: Bernardino Gleason MD Status: Completed (Past End Date/Time) Ordered On: 03/10/24 0507 Starts/Ends: 03/10/24 0545 - 03/10/24 0516 Ordered Dose (Remaining/Total): 0.5 mg (0/1) Route: intravenous Frequency: Once Ordered Rate/Order Duration: -- / 2 Minutes Timestamps Action Dose / Duration Route Other Information 03/10/24 0514 Given 0.5 mg 2 Minutes intravenous Performed by: Haley Varner RN Scanned Package: 29833-491-93 magnesium sulfate 2 g/50 mL in water (premix) 2 g [[id number]] Ordering Provider: Yunier Leach MD Status: Completed [...] Performed by: Darius Ghosh RN Scanned Package: 07903-046-63 potassium chloride (KLOR-CON) packet 40 mEq [[id number]] Ordering Provider: Yunier Leach MD Status: Completed (Past End Date/Time) Ordered On: 03/10/24 1430 Starts/Ends: 03/10/24 1745 - 03/10/24 2043 Ordered Dose (Remaining/Total): 40 mEq (0/2) Route: [...] Performed by: Janett Ledezma RN Scanned Package: [address]-1, [address]-4 sodium chloride 0.9% bolus 1,000 mL [[id number]] Ordering Provider: Eloise Knapp MD Status: Completed (Past End Date/Time) Ordered On: 03/11/24 1045 Starts/Ends: 03/11/24 1130 - 03/11/24 113 Ordered Dose (Remaining/Total): 1,000 mL (0/1) Route: intravenous Frequency: Once Ordered Rate/Order Duration: -- / -- Line Med Link Info Comment Peripheral IV 03/09/24 20 G Left Antecubital 03/11/24 1139 by Soco Schwarz RN-- Timestamps Action Dose Route Other Information 03/11/24 113 New Bag 1,000 mL intravenous Performed by: Soco Schwarz RN Scanned Package: 7491-4658-39, 2521-9337-20 magnesium sulfate 2 g/50 mL in water (premix) 2 g [[id number]] Ordering Provider: Jane Hoover MD Status: Completed [...] Performed by: Janett Ledezma RN Scanned Package: 89968-649-85 senna-docusate (PERICOLACE) 8.6-50 mg per tablet 1 tablet [[id number]] Ordering Provider: Ericka Estes MD Status: Dispensed Ordered On: 03/12/24 0954 Start: 03/12/24 2100 Ordered Dose (Remaining/Total): 1 tablet (--/--) Route: oral Frequency: 2 times daily Ordered Rate/Order Duration: -- / -- Timestamps Action Dose Route Other Information 04/02/24 0915 Given 1 tablet oral Performed by: Alyx Ma RN Scanned Package: 4903-6990-34 lidocaine (PF) (XYLOCAINE) 10 mg/mL (1 %) preservative free injection 10-20 mg [[id number]] Ordering Provider: Jane Hoover MD Status: Completed [...] PICC sodium chloride 0.9% flush 5-10 mL [[id number]] Ordering Provider: Ericka Estes MD Status: Verified [...] RN sodium chloride 0.9% flush 5-20 mL [[id number]] Ordering Provider: Ericka Estes MD Status: Verified Ordered On: 03/12/241831 Start: 03/12/241827 Ordered Dose (Remaining/Total): 5-20 mL (--/--) Route: intra-catheter Frequency: As needed Ordered Rate/Order Duration: -- / -- Admin Instructions: Flush volume based on line type, size, and protocol. (No admins scheduled or recorded for this medication) sodium chloride 0.9% flush 5-10 mL [[id number]] Ordering Provider: Ericka Estes MD Status: Verified Ordered On: 03/12/241831 Start: 03/12/24 2100 Ordered Dose (Remaining/Total): 5-10 mL (--/--) Route: intra-catheter Frequency: Every 12 hours scheduled Ordered Rate/Order Duration: -- / -- Admin Instructions: Flush volume based on line type, size, and protocol. Timestamps Action Dose Route Other Information 03/27/24 2140 Given 10 mL intra-catheter Performed by: Clifford Lindsey RN sodium chloride 0.9% flush 5-20 mL [[id number]] Ordering Provider: Ericka Estes MD Status: Verified Ordered On: 03/12/241831 Start: 03/12/24 183 Ordered Dose (Remaining/Total): 5-20 mL (--/--) Route: intra-catheter Frequency: As needed Ordered Rate/Order Duration: -- / -- Admin Instructions: Flush volume based on line type, size, and protocol. (No admins scheduled or recorded for this medication) acetaminophen (TYLENOL) tablet 1,000 mg [[id number]] Ordering Provider: Ericka Estes MD Status: Dispensed Ordered On: 03/13/24 112 Start: 03/13/24 1200 Ordered Dose (Remaining/Total): 1,000 mg (--/--) Route: oral Frequency: Every 6 hours scheduled Ordered Rate/Order Duration: -- / -- Timestamps Action Dose Route Other Information 04/02/24 1156 Given 1,000 mg oral Performed by: Alyx Ma RN Scanned Package: 8695-4394-01, 0553-7948-02 magnesium sulfate 2 g/50 mL in water (premix) 2 g [[id number]] Ordering Provider: Johnny Corcoran MD Status: Completed (Past End Date/Time) Ordered On: 03/13/24 112 Starts/Ends: 03/13/24 1200 - 03/13/24 1306 Ordered Dose (Remaining/Total): 2 g (0/1) Route: intravenous Frequency: Once Ordered Rate/Order Duration: -- / 60 Minutes Timestamps Action Dose / Duration Route Other Information 03/13/24 1206 New Bag 2 g 60 Minutes intravenous Performed by: Kenyatta uDmont RN Scanned Package: 60254-368-15 ceFAZolin (ANCEF) 1 gram/10 mL in sterile water (premix) 1,000 mg [[id number]] Ordering Provider: Ericka Estes MD Status: Completed [...] Performed by: June Guerrero RN Scanned Package: 8931-5304-84 miconazole (SECURA THICK) 2 % cream [[id number]] Ordering Provider: Linda Haile MD Status: Verified (Past End Date/Time) Ordered On: 03/14/24 0011 Starts/Ends: 03/14/24 0045 - 03/27/24 2059 Ordered Dose (Remaining/Total): -- (03/09) Route: topical Frequency: 2 times daily Ordered Rate/Order Duration: -- / -- Question Answer Comment Apply to affected area:: rash -- Timestamps Action Dose / Rate / Duration Route Other Information 03/27/24 0831 Given -- topical Performed by: Mala Lion Scanned Package: 14831-777-28 haloperidol (HALDOL) 5 mg/mL injection - ADS Override Pull [[id number]] Status: Dispensed (Past End Date/Time) Ordered On: 03/14/24 0452 Starts/Ends: 03/14/24 0452 - 03/14/24 1659 Ordered Dose (Remaining/Total): -- (08/13) Route: -- Frequency: -- Ordered Rate/Order Duration: -- / -- Admin Instructions: Created by cabinet override Note to pharmacy: Created by cabinet override (No admins scheduled or recorded for this medication) linezolid (ZYVOX) tablet 600 mg [[id number]] Ordering Provider: Vince Allen MD Status: Completed (Past End Date/Time) Ordered On: 03/14/24 1155 Starts/Ends: 03/14/24 1230 - 03/14/242113 Ordered Dose (Remaining/Total): 600 mg (0/2) Route: oral Frequency: 2 times daily Ordered Rate/Order Duration: -- / -- Timestamps Action Dose Route Other Information 03/14/242113 Given 600 mg oral Performed by: June Guerrero RN Scanned Package: 62267-696-50 benzocaine-menthoL (CHLORASEPTIC) lozenge 1 lozenge [[id number]] Ordering Provider: Linda Haile MD Status: Dispensed Ordered On: 03/15/24 0437 Start: 03/15/24436 Ordered Dose (Remaining/Total): 1 lozenge (--/--) Route: mouth/throat Frequency: Every 3 hours PRN Ordered Rate/Order Duration: -- / -- Timestamps Action Dose Route Other Information 03/25/24 1224 Given 1 lozenge mouth/throat Performed by: Liberty Taylor RN Scanned Package: [id number] dextrose gel in packet 15 g [[id number]] Ordering Provider: Linda Haile MD Status: Verified [...] medication) dextrose (D10W) 10% bolus 250 mL [[id number]] Ordering Provider: Linda Haile MD Status: Verified [...] hour post treatment. If BG is less tozr445 mg/dL, repeat Q15 minute BG checks and treatment. Call MD for each episode of hypoglycemia. (No admins scheduled or recorded for this medication) glucagon injection 1 mg [[id number]] Ordering Provider: Linda Haile MD Status: Verified [...] this medication) oxyCODONE (ROXICODONE) tablet 7.5 mg [[id number]] Ordering Provider: Vince Allen MD Status: Dispensed Ordered On: 03/17/241036 Start: 03/17/24 1036 Ordered Dose (Remaining/Total): 7.5 mg (--/--) Route: oral Frequency: Every 4 hours PRN Ordered Rate/Order Duration: -- / -- Timestamps Action Dose Route Other Information 04/02/24 1321 Given 7.5 mg oral Performed by: Alyx Ma RN Scanned Package: 24470-104-89 hydrOXYzine (ATARAX) tablet 50 mg [[id number]] Ordering Provider: Demetri Serrano MD Status: Dispensed Ordered On: 03/17/24 1634 Start: 03/17/24 1634 Ordered Dose (Remaining/Total): 50 mg (--/--) Route: oral Frequency: Every 4 hours PRN Ordered Rate/Order Duration: -- / -- Timestamps Action Dose Route Other Information 03/30/242024 Given 50 mg oral Performed by: Leighann Solitario Scanned Package: 43869-504-09, 11227-486-40 enoxaparin (LOVENOX) syringe 30 mg [[id number]] Ordering Provider: Xochitl Esquivel NP Status: Dispensed Ordered On: 03/18/24 1152 Start: 03/18/24 2100 Ordered Dose (Remaining/Total): 30 mg (--/--) Route: subcutaneous Frequency: Every 12 hours scheduled Ordered Rate/Order Duration: -- / -- Timestamps Action Dose Route / Site Other Information 04/02/24 0915 Given 30 mg subcutaneous Right Lower Abdomen Performed by: Alyx Ma RN Scanned Package: 74941-953-02 lidocaine (ASPERCREME) 4 % patch 2 patch [[id number]] Ordering Provider: Xochitl Esquivel NP Status: Dispensed [...] Performed by: Alyx Ma RN Scanned Package: 4444-0643-20, 7808-2124-08 traZODone (DESYREL) tablet 50 mg [[id number]] Ordering Provider: Xochitl Esquivel NP Status: Dispensed Ordered On: 03/18/24 1529 Start: 03/18/24 2100 Ordered Dose (Remaining/Total): 50 mg (--/--) Route: oral Frequency: Nightly Ordered Rate/Order Duration: -- / -- Timestamps Action Dose Route Other Information 04/01/24 2148 Given 50 mg oral Performed by: Jose Arechiga RN Scanned Package: 42552-128-75 polyethylene glycol (MIRALAX) packet 17 g [[id number]] Ordering Provider: Xochitl Esquivel NP Status: Dispensed Ordered On: 03/19/24 0903 Start: 03/19/24 2100 Ordered Dose (Remaining/Total): 17 g (--/--) Route: oral Frequency: 2 times daily Ordered Rate/Order Duration: -- / -- Timestamps Action Dose Route Other Information 04/02/24 0915 Given 17 g oral Performed by: Alyx Ma RN Scanned Package: 17541-110-29 bisacodyL (DULCOLAX) suppository 10 mg [[id number]] Ordering Provider: Xochitl Esquivel NP Status: Dispensed (Past End Date/Time) Ordered On: 03/19/24 0915 Starts/Ends: 03/19/24 1000 - 03/20/24 1000 Ordered Dose (Remaining/Total): 10 mg (1/1) Route: rectal Frequency: Once Ordered Rate/Order Duration: -- / -- (No admins scheduled or recorded for this medication) HYDROmorphone (DILAUDID) injection 0.2 mg [[id number]] Ordering Provider: Demetri Serrano MD Status: Completed (Past End Date/Time) Ordered On: 03/21/24527 Starts/Ends: 03/21/24 0600 - 03/21/24 0545 Ordered Dose (Remaining/Total): 0.2 mg (01) Route: intravenous Frequency: Once Ordered Rate/Order Duration: -- / 2 Minutes Timestamps Action Dose / Duration Route Other Information 03/21/24 0543 Given 0.2 mg 2 Minutes intravenous Performed by: Elizabeth Bell RN Scanned Package: 20850-207-65 insulin glargine (LANTUS, SEMGLEE) 100 unit/mL injection 2 Units [[id number]] Ordering Provider: Demetri Serrano MD Status: Completed (Past End Date/Time) Ordered On: 03/23/241321 Starts/Ends: 03/23/24 1322 - 03/23/24 133 Ordered Dose (Remaining/Total): 2 Units (0/1) Route: subcutaneous Frequency: Once Ordered Rate/Order Duration: -- / -- Admin Instructions: Do not hold if NPO. Do not mix with other insulins Timestamps Action Dose Route / Site Other Information 03/23/24 133 Given 2 Units subcutaneous Right Upper Arm Performed by: Dilcia Torres, JULISSA Scanned Package: 10604-785-15 insulin glargine (LANTUS, SEMGLEE) 100 unit/mL injection 30 Units [[id number]] Ordering Provider: Ximena Diaz NP Status: Dispensed Ordered On: 03/25/24 0725 Start: 03/25/24 0900 Ordered Dose (Remaining/Total): 30 Units (--/--) Route: subcutaneous Frequency: Every morning Ordered Rate/Order Duration: -- / -- Admin Instructions: Do not hold if NPO. Do not mix with other insulins Timestamps Action Dose Route / Site Other Information 04/02/24 0918 Given 30 Units subcutaneous Left Upper Abdomen Performed by: Alyx Ma, JULISSA Scanned Package: 68024-178-73 insulin lispro (HumaLOG, ADMELOG) 100 unit/mL injection 2 Units [[id number]] Ordering Provider: Ximena Diaz NP Status: Verified Ordered On: 03/25/24 0737 Start: 03/25/24 0734 Ordered Dose (Remaining/Total): 2 Units (--/--) Route: subcutaneous Frequency: Every 6 hours PRN Ordered Rate/Order Duration: -- / -- Admin Instructions: Please give with snacks. (No admins scheduled or recorded for this medication) insulin lispro (HumaLOG, ADMELOG) 100 unit/mL injection 20 Units [[id number]] Ordering Provider: Ximena Diaz NP Status: Dispensed [...] Performed by: Alyx Ma RN Scanned Package: 4961-9915-15 oxyCODONE (ROXICODONE) tablet 5 mg [[id number]] Ordering Provider: Demetri Serrano MD Status: Completed (Past End Date/Time) Ordered On: 03/28/24 1127 Starts/Ends: 03/28/24 1200 - 03/28/24 1214 Ordered Dose (Remaining/Total): 5 mg (0/1) Route: oral Frequency: Once Ordered Rate/Order Duration: -- / -- Timestamps Action Dose Route Other Information 03/28/24 1214 Given 5 mg oral Performed by: Lorena Acevedo RN Scanned Package: 55120-342-42 methocarbamoL (ROBAXIN) tablet 1,000 mg [[id number]] Ordering Provider: Karuna Mitchell NP Status: Dispensed Ordered On: 03/28/24 1352 Start: 03/28/24 1700 Ordered Dose (Remaining/Total): 1,000 mg (--/--) Route: oral Frequency: 4 times daily Ordered Rate/Order Duration: -- / -- Timestamps Action Dose Route Other Information 04/02/24 1606 Given 1,000 mg oral Performed by: Alyx Ma RN Scanned Package: 28279-498-80, 72616-610-66 insulin lispro (HumaLOG, ADMELOG) 100 unit/mL injection 0-10 Units [[id number]] Ordering Provider: Messi Hummel MD Status: Dispensed [...] Performed by: Alyx Ma RN Scanned Package: 6527-8556-42 miconazole 2 % cream [[id number]] Ordering Provider: Riki Isidro MD Status: Dispensed (Past End Date/Time) Ordered On: 03/30/24 2154 Starts/Ends: 03/30/24 2230 - 03/31/24 0859 Ordered Dose (Remaining/Total): -- (08/13) Route: topical Frequency: 2 times daily Ordered Rate/Order Duration: -- / -- Question Answer Comment Apply to affected area:: diaper area -- (No admins scheduled or recorded for this medication) pregabalin (LYRICA) capsule 150 mg [[id number]] Ordering Provider: Johan Ulloa MD Status: Dispensed Ordered On: 03/31/24 1102 Start: 03/31/24 1600 Ordered Dose (Remaining/Total): 150 mg (--/--) Route: oral Frequency: 3 times daily Ordered Rate/Order Duration: -- / -- Timestamps Action Dose Route Other Information 04/02/24 1606 Given 150 mg oral Performed by: Alyx Ma RN Scanned Package: 86266-786-17 * Plan of Care - Desi Wang RN - 04/02/2024 4:20 PM CDT CM placed call to [place] at [phone]. Spoke with Akanksha. Updates sent via [employer], refaxed to [phone]. Will review today & follow up with CM tomorrow. 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[employer] Patient Centered Goal for Treatment: Mobility, Pain management Summary: Problem: Skin Integrity Impairment Risk Goal: Mobility will improve 04/01/2024 023 by Jose Arechiga RN Outcome: Progressing 04/01/2024233 by Jose Arechiga RN Outcome: Progressing Goal: Understanding of ways to prevent future skin breakdown will improve 04/01/2024234 by Jose Arechiga RN Outcome: Progressing 04/01/2024 023 by Jose Arechiga RN Outcome: Progressing Goal: Nutritional status will improve 04/01/2024 023 by Jose Arechiga RN Outcome: Progressing 04/01/2024 023 by Jose Arechiga RN Outcome: Progressing Goal: Risk for impaired skin integrity will decrease 04/01/2024 023 by Jose Arechiga RN Outcome: Progressing 04/01/2024233 by Jose Arechiga RN Outcome: Progressing Problem: Fall Risk Goal: Ability to state ways to decrease the risk of falls will improve 04/01/2024 023 by Jose Arechiga RN Outcome: Progressing 04/01/2024 023 by Jose Arechiga RN Outcome: Progressing Goal: Will remain free from falls 04/01/2024 023 by Jose Arechiga RN Outcome: Progressing 04/01/2024 023 by Jose Arechiga RN Outcome: Progressing Goal: Will remain free from injury from falls 04/01/2024 023 by Jose Arechiga [...] working to decrease the patient's pain levels 04/01/2024 023 by Jose Arechiga RN Outcome: Progressing 04/01/2024 023 by Jose Arechiga RN Outcome: Progressing Problem: Medication Goal: Satisfaction with pain management medication regimen will improve 04/01/2024234 by Jose Arechiga RN Outcome: Progressing 04/01/2024 023 by Jose Arechiga RN Outcome: Progressing Problem: Health Behavior Goal: Identification of resources available to assist in meeting health care needs will improve 04/01/2024234 by Jose Arechiga RN [...] related to Type 2 Diabetes will improve 04/01/2024 023 by Jose Arechiga [...] of affected body part 04/01/2024234 by Jose Arehciga RN Outcome: Ongoing 04/01/2024233 by Jose Arechiga [...] Infection Goal: Absence of infection during hospitalization 04/01/2024234 by Jose Arechiga RN Outcome: Progressing 04/01/2024233 by Jose Arechiga RN Outcome: Progressing Goal: Absence of fever/infection during anticipated neutropenic period 04/01/2024234 by Jose Arechiga RN Outcome: Progressing [...] pain, esnure rest, monitor las/ surgical wounds 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[employer] Patient 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 Goal for Treatment: Mobility, Pain management * [facility] Note - Desi Wang RN [...] assessed 03/10/24--will not follow Assessments Row Name 03/30/24 1940 03/30/24 1602 03/30/24 0842 03/29/242036 Dressing Status Clean/Dry/Intact Changed Clean/Dry/Intact -- Site Assessment HOLLY Eschar HOLLY HOLLY Natalie-wound Assessment HOLLY Dry;Calloused HOLLY HOLLY Interventions -- Cleansed -- -- Dressing -- Other (Comment) foam, kerlix, tape Foam;Gauze -- Wound 03/13/24 Incision Back Date First Assessed 03/13/24 Site Back Time First Assessed 2138 Days 17 Primary Wound Type: Incision Assessments Row Name 03/30/24193903/30/24 1602 03/30/2484103/29/242036 Dressing Status Clean/Dry/Intact -- Clean/Dry/Intact -- Site Assessment HOLLY -- HOLLY HOLLY Natalie-wound Assessment HOLLY -- HOLLY HOLLY Wound 03/18/24 MASD (Moisture associated skin damage) Groin Anterior;Left Date First Assessed 03/18/24 Site Groin Time First Assessed 1703 Days 12 Present on Original Admission: N Primary Wound Type: MASD Location Orientation: Anterior;Left Assessments Row Name 03/30/24193903/30/24 16003/30/2484103/29/242036 Dressing Status Open to Air -- -- -- Site Assessment [place];Red -- [place] HOLLY Natalie-wound Assessment HOLLY -- -- HOLLY [...] location identifiers: redness, tender Assessments Row Name 03/30/24193903/30/24 16003/30/2484103/29/242036 Dressing Status Dry;Intact -- -- -- Site Assessment [place] -- [place];Brown HOLLY Natalie-wound Assessment HOLLY -- -- HOLLY Interventions Cleansed;Site care;Protective ointment -- Cleansed;Site care -- Dressing Open to air -- Open to air -- Wound Status Evolving -- Healing -- Wound 03/22/24 Blister Flank Right;Lower;Lateral Date First Assessed 03/22/24 Site Flank Time First Assessed 0900 Days 9 Primary Wound Type: Blister Location Orientation: Right;Lower;Lateral Assessments Row Name 03/30/24193903/30/24 1602 03/30/2484103/29/242036 Site Assessment Dry;Intact -- -- HOLLY Natalie-wound [...] belt not utilized, see comment Spinal precautions -MD Subjective -- Agreeable to Therapy - OT Missed Visit Reason Other (comment) -CE -- Family/Caregiver Present -- No -MD Precautions -- Fall risk;Cervical spine - Weight Bearing Restrictions -- Yes - LLE Weight Bearing -- WBAT Post op shoe donned - Braces/Orthoses -- Other CTLSO brace donned throughout entirety of session - Precaution Comments -- Verbally reviewed precautions; Patient demonstrated carryover during ADLs/mobility with minimal cues. - Pain Assessment -- 0-10 -MD Pain Score -- 4 -MD Pain Location [...] task - Dynamic Standing-Standing Surface -- Floor -OK Dynamic Standing-Level of Assistance -- Minimum assistance -MD Dynamic Standing-Comments -- LE weakness/balance; Post op [...] - Toileting: Where assessed -- Bedside Commode -OK Toileting: Level of assistance -- Moderate Assist Mod task Min balance - Toileting: Assistance with -- Clothing management up;Clothing management down;Posterior;Balance;Safety - Room Mobility: Where assessed -- To/from doorway and around room - Health Management: Equipment -- Walker -MD Room Mobility: Level of Assistance -- Minimum Assist -MD Room Mobility comment -- Assist for balance/unsteadiness - Bed Mobility -- No -MD Transfer -- Yes -MD Transfer From 1 -- Sit -MD Transfer Type 1 -- To and from -MD Transfer to 1 -- Stand -MD Technique 1 -- Sit to stand;Stand to sit -OK Transfer Device 1 -- Wheeled walker -MD Transfer Level of Assistance 1 -- Minimum Assist -MD Trials/Comments 1 -- Assist for balance, controlled descent and force production -OK Toilet Transfer From -- Chair with arms -MD Toilet Transfer Type -- To and from -MD Toilet Transfer to -- Standard bedside commode -OK Toilet Transfer Technique -- Ambulating -MD Toilet [...] Discharge -- Current Mobility Status;Current ADL Status -MD Barrier Comments -- Fall risk -MD Plan -- Continue with current plan;If this is the last note, consider this the discharge summary -MD OT Recommendation -- Care Home Facility -MD Patient at high risk for [...] to return to prior level of independence -MD OT Frequency during current admission -- 5-7x/wk -MD Treatment/Interventions during current admission -- ADL/IADL retraining;Balance Training;Functionalactivity;Functional mobility training;Functional transfer training;Strengthening;Therapeutic activity;Therapeutic exercise - Progress during current admission -- Progressing toward goals - OT - Next Appointment -- 03/25/24 - OT - OK to Discharge -- No -MD Start Time -- 1112 - Stop Time -- 1150 -MD Time Calculation (min) -- 38 min -MD User Ferro (r) = Recorded By, (t) [...] = Cosigned By Initials Name Effective Dates Ruba Drew, PT 07/14/19 - PT TREATMENT (Last 168 [...] & reported being in significant pain 04/22,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 -AK -- Patient declined [...] reviewed and maintained precautions throughout treatment session -SEHT (r) MS (c) -- verbally reviewed precautions [...] shoes, but they've been unable. Therapist contacted PERIOPERATIVE EDUCATOR to order post-op shoe for right foot [...] the discharge summary - Recommendation/Plan PT Recommendation/Plan -- Care Home Facility -[facility] (r) MS (c) -- Care Home Facility - Patient at high risk for [...] has not returned to prior level of function- Recommend SNF due to -- Risk of [...] to prior level of independence - PT Frequency during current admission -- 5-7x/wk -[facility] (r) MS (c) -- 5-7x/wk - Treatment/Interventions during current admission -- Balance Training;Functional transfer training;Gait training;Therapeutic activity;Strengthening -[facility] (r) MS (c) -- -- PT Equipment Recommended -- Other (Comment) To be determined at next continuum of care -[facility] (r) MS (c) -- -- Progress during current admission -- Progressing toward goals -[facility] (r) MS (c) -- Slow progress, decreased activity tolerance - Time Calculation Start Time -- 1431 -[facility] (r) MS (c) -- 1112 -LM Stop Time -- 1458 -[facility] (r) MS (c) -- 1142 -LM Time Calculation (min) -- 27 min -[facility] -- 30 min -LM User Ferro (r) = Recorded By, (t) = Taken By, (c) = Cosigned By Initials Name Effective Dates [place] Mignon Toussaint, [employer] TRAVEL COUNSELOR 07/14/19 - SETH Wilber SkinnerFelix 02/05/24 - [...] Recent Administrations acetaminophen (TYLENOL) tablet 1,000 mg [[id number]] Ordering Provider: Rosalio Calixto MD Status: Completed (Past End Date/Time) Ordered On: 03/08/241836 Starts/Ends: 03/08/241837 - 03/08/241855 Ordered Dose (Remaining/Total): 1,000 mg (0/1) Route: oral Frequency: Once Ordered Rate/Order Duration: -- / -- Timestamps Action Dose Route Other Information 03/08/241855 Given 1,000 mg oral Performed by: Brionna Pitt RN Scanned Package: 3075-6147-56, 1315-6447-43 droPERidol (INAPSINE) injection 1.25 mg [[id number]] Ordering Provider: Rosalio Calixto MD Status: Completed [...] Performed by: Brionna Pitt RN Scanned Package: 4536-4170-52 fentaNYL (SUBLIMAZE) preservative free injection 50 mcg [[id number]] Ordering Provider: Rosalio Calixto MD Status: Completed [...] Performed by: Brionna Pitt RN Scanned Package: 3489-0570-01 ioversoL (OPTIRAY 350) syringe 100 mL [[id number]] Ordering Provider: Rosalio Calixto MD Status: Completed [...] RT ioversoL (OPTIRAY 350) syringe 125 mL [[id number]] Ordering Provider: Rosalio Calixto MD Status: Completed [...] Hill, RT gadoterate meglumine injection 14 mL [[id number]] Ordering Provider: Rosalio Calixto MD Status: Completed [...] Given 14 mL intravenous Performed by: Haley Hart, RT insulin lispro (HumaLOG, ADMELOG) 100 unit/mL injection 4 Units [[id number]] Ordering Provider: Ho An MD Status: Completed (Past End Date/Time) Ordered On: 03/09/24332 Starts/Ends: 03/09/24333 - 03/09/24342 Ordered Dose (Remaining/Total): 4 Units (0/1) Route: subcutaneous Frequency: Once Ordered Rate/Order Duration: -- / -- Timestamps Action Dose Route / Site Other Information 03/09/24342 Given 4 Units subcutaneous Left Lower Abdomen Performed by: Brionna Pitt RN Scanned Package: 8188-3942-33 droPERidol (INAPSINE) injection 1.25 mg [[id number]] Ordering Provider: Ho An MD Status: Completed [...] Performed by: Odilia Vega RN Scanned Package: 0284-2783-86 sodium chloride 0.9% flush 0.5-20 mL [[id number]] Ordering Provider: Ericka Estes MD Status: Verified Ordered On: 03/09/24608 Start: 03/09/24644 Ordered Dose (Remaining/Total): 0.5-20 mL (--/--) Route: intra-catheter Frequency: Every 8 hours scheduled Ordered Rate/Order Duration: -- / -- Admin Instructions: Flush volume based on line type and size. Timestamps Action Dose Route Other Information 03/28/24535 Given 10 mL intra-catheter Performed by: Clifford Lindsey RN sodium chloride 0.9% flush 0.5-20 mL [[id number]] Ordering Provider: Ericka Estes MD Status: Verified [...] Performed by: Isha Cox RN Scanned Package: [id number] Carrier Fluids for Secondary Infusion - 0.9% Sodium Chloride [[id number]] Ordering Provider: Ericka Estes MD Status: Dispensed [...] (1 %) preservative free injection 200 mg [[id number]] Ordering Provider: Varun Song MD Status: Completed (Past End Date/Time) Ordered On: 03/09/24 1240 Starts/Ends: 03/09/24 1315 - 03/09/24 1312 Ordered Dose (Remaining/Total): 20 mL (0/1) Route: infiltration Frequency: Once Ordered Rate/Order Duration: -- / -- Timestamps Action Dose Route Other Information 03/09/24 1312 Given 200 mg infiltration Performed by: Keyonna Hernandez RN HYDROmorphone (DILAUDID) injection 0.5 mg [[id number]] Ordering Provider: Varun Song MD Status: Completed [...] halo placement droPERidol (INAPSINE) injection 1.25 mg [[id number]] Ordering Provider: Varun Song MD Status: Dispensed (Past End Date/Time) Ordered On: 03/09/241335 Starts/Ends: 03/09/241414 - 03/10/241414 Ordered Dose (Remaining/Total): 1.25 mg (1/1) Route: intravenous Frequency: Once Ordered Rate/Order Duration: -- / -- Admin Instructions: If administered IV push, administer over 5 min for adults. (No admins scheduled or recorded for this medication) HYDROmorphone (DILAUDID) injection 0.5 mg [[id number]] Ordering Provider: Varun Song MD Status: Completed (Past End Date/Time) Ordered On: 03/09/241336 Starts/Ends: 03/09/241414 - 03/09/241335 Ordered Dose (Remaining/Total): 0.5 mg (0/1) Route: intravenous Frequency: Once Ordered Rate/Order Duration: -- / 2 Minutes Timestamps Action Dose / Duration Route Other Information 03/09/241333 Given 0.5 mg 2 Minutes intravenous Performed by: Keyonna Hernandez RN Comments: halo placement methocarbamoL (ROBAXIN) tablet 500 mg [[id number]] Ordering Provider: Bernardino Gleason MD Status: Completed (Past End Date/Time) Ordered On: 03/09/242042 Starts/Ends: 03/09/242114 - 03/09/242122 Ordered Dose (Remaining/Total): 500 mg (0/1) Route: oral Frequency: Once Ordered Rate/Order Duration: -- / -- Timestamps Action Dose Route Other Information 03/09/242122 Given 500 mg oral Performed by: Haley Varner RN Scanned Package: 72825-554-87 magnesium sulfate 2 g/50 mL in water (premix) 2 g [[id number]] Ordering Provider: Bernardino Gleason MD Status: Completed (Past End Date/Time) Ordered On: 03/09/242134 Starts/Ends: 03/09/242214 - 03/09/242326 Ordered Dose (Remaining/Total): 2 g (0/1) Route: intravenous Frequency: Once Ordered Rate/Order Duration: -- / 60 Minutes Timestamps Action Dose / Duration Route Other Information 03/09/247 New Bag 2 g 60 Minutes intravenous Performed by: Haley Varner RN Scanned Package: 81353-937-42 potassium chloride (KLOR-CON) packet 20 mEq [[id number]] Ordering Provider: Bernardino Gleason MD Status: Completed [...] Performed by: Haley Varner RN Scanned Package: [address]-0 HYDROmorphone (DILAUDID) injection 0.5 mg [[id number]] Ordering Provider: Bernardino Gleason MD Status: Completed (Past End Date/Time) Ordered On: 03/10/24 0507 Starts/Ends: 03/10/24 0545 - 03/10/24 0516 Ordered Dose (Remaining/Total): 0.5 mg (0/1) Route: intravenous Frequency: Once Ordered Rate/Order Duration: -- / 2 Minutes Timestamps Action Dose / Duration Route Other Information 03/10/24 0514 Given 0.5 mg 2 Minutes intravenous Performed by: Haley Varner RN Scanned Package: 81792-024-79 magnesium sulfate 2 g/50 mL in water (premix) 2 g [[id number]] Ordering Provider: Yunier Leach MD Status: Completed (Past End Date/Time) Ordered On: 03/10/24 1309 Starts/Ends: 03/10/24 1345 - 03/10/24 1537 Ordered Dose (Remaining/Total): 2 g (0/1) Route: intravenous Frequency: Once Ordered Rate/Order Duration: -- / 60 Minutes Line Med Link Info Comment Peripheral IV 03/09/24 20 G Left Antecubital 03/10/24 143 by Darius Ghosh RN -- Timestamps Action Dose / Duration Route Other Information 03/10/24 143 New Bag 2 g 60 Minutes intravenous Performed by: Darius Ghosh RN Scanned Package: 05551-860-02 potassium chloride (KLOR-CON) packet 40 mEq [[id number]] Ordering Provider: Yunier Leach MD Status: Completed [...] Performed by: Janett Ledezma RN Scanned Package: [address]-4, [address]-2 sodium chloride 0.9% bolus 1,000 mL [[id number]] Ordering Provider: Eloise Knapp MD Status: Completed [...] Performed by: Soco Schwarz RN Scanned Package: 3944-0698-51, 0721-8268-70 magnesium sulfate 2 g/50 mL in water (premix) 2 g [[id number]] Ordering Provider: Jane Hoover MD Status: Completed [...] Performed by: Janett Ledezma RN Scanned Package: 31234-160-39 senna-docusate (PERICOLACE) 8.6-50 mg per tablet 1 tablet [[id number]] Ordering Provider: Ericka Estes MD Status: Dispensed Ordered On: 03/12/24 0954 Start: 03/12/24 2100 Ordered Dose (Remaining/Total): 1 tablet (--/--) Route: oral Frequency: 2 times daily Ordered Rate/Order Duration: -- / -- Timestamps Action Dose Route Other Information 03/31/24 0908 Given 1 tablet oral Performed by: Alyx Ma RN Scanned Package: 7973-1965-15 lidocaine (PF) (XYLOCAINE) 10 mg/mL (1 %) preservative free injection 10-20 mg [[id number]] Ordering Provider: Jane Hoover MD Status: Completed (Past End Date/Time) Ordered On: 03/12/24 183 Starts/Ends: 03/12/241914 - 03/12/242129 Ordered Dose (Remaining/Total): [...] PICC sodium chloride 0.9% flush 5-10 mL [[id number]] Ordering Provider: Ericka Estes MD Status: Verified [...] RN sodium chloride 0.9% flush 5-20 mL [[id number]] Ordering Provider: Ericka Estes MD Status: Verified Ordered On: 03/12/241831 Start: 03/12/241827 Ordered Dose (Remaining/Total): 5-20 mL (--/--) Route: intra-catheter Frequency: As needed Ordered Rate/Order Duration: -- / -- Admin Instructions: Flush volume based on line type, size, and protocol. (No admins scheduled or recorded for this medication) sodium chloride 0.9% flush 5-10 mL [[id number]] Ordering Provider: Ericka Estes MD Status: Verified [...] RN sodium chloride 0.9% flush 5-20 mL [[id number]] Ordering Provider: Ericka Estes MD Status: Verified Ordered On: 03/12/241831 Start: 03/12/241830 Ordered Dose (Remaining/Total): 5-20 mL (--/--) Route: intra-catheter Frequency: As needed Ordered Rate/Order Duration: -- / -- Admin Instructions: Flush volume based on line type, size, and protocol. (No admins scheduled or recorded for this medication) acetaminophen (TYLENOL) tablet 1,000 mg [[id number]] Ordering Provider: Ericka Estes MD Status: Dispensed Ordered On: 03/13/24 1120 Start: 03/13/24 1200 Ordered Dose (Remaining/Total): 1,000 mg (--/--) Route: oral Frequency: Every 6 hours scheduled Ordered Rate/Order Duration: -- / -- Timestamps Action Dose Route Other Information 03/31/24 0602 Given 1,000 mg oral Performed by: Leighann Solitario Scanned Package: 6731-3247-40, 9695-2281-61 magnesium sulfate 2 g/50 mL in water (premix) 2 g [[id number]] Ordering Provider: Johnny Corcoran MD Status: Completed (Past End Date/Time) Ordered On: 03/13/24 1122 Starts/Ends: 03/13/24 1200 - 03/13/24 1306 Ordered Dose (Remaining/Total): 2 g (0/1) Route: intravenous Frequency: Once Ordered Rate/Order Duration: -- / 60 Minutes Timestamps Action Dose / Duration Route Other Information 03/13/24 1206 New Bag 2 g 60 Minutes intravenous Performed by: Kenyatta Dumont RN Scanned Package: 01108-362-66 ceFAZolin (ANCEF) 1 gram/10 mL in sterile water (premix) 1,000 mg [[id number]] Ordering Provider: Ericka Estes MD Status: Completed [...] Performed by: June Guerrero RN Scanned Package: 7831-5419-18 miconazole (SECURA THICK) 2 % cream [[id number]] Ordering Provider: Linda Haile MD Status: Verified [...] topical Performed by: Mala Lion Scanned Package: 53310-291-14 haloperidol (HALDOL) 5 mg/mL injection - ADS Override Pull [[id number]] Status: Dispensed (Past End Date/Time) Ordered On: 03/14/24451 Starts/Ends: 03/14/24 045 - 03/14/241658 Ordered Dose (Remaining/Total): -- (08/13) Route: -- Frequency: -- Ordered Rate/Order Duration: -- / -- Admin Instructions: Created by cabinet override Note to pharmacy: Created by cabinet override (No admins scheduled or recorded for this medication) linezolid (ZYVOX) tablet 600 mg [[id number]] Ordering Provider: Vince Allen MD Status: Completed (Past End Date/Time) Ordered On: 03/14/24 1155 Starts/Ends: 03/14/24 1230 - 03/14/242113 Ordered Dose (Remaining/Total): 600 mg (0/2) Route: oral Frequency: 2 times daily Ordered Rate/Order Duration: -- / -- Timestamps Action Dose Route Other Information 03/14/242113 Given 600 mg oral Performed by: June Guerrero RN Scanned Package: 15877-995-42 benzocaine-menthoL (CHLORASEPTIC) lozenge 1 lozenge [[id number]] Ordering Provider: Linda Haile MD Status: Dispensed Ordered On: 03/15/24436 Start: 03/15/24436 Ordered Dose (Remaining/Total): 1 lozenge (--/--) Route: mouth/throat Frequency: Every 3 hours PRN Ordered Rate/Order Duration: -- / -- Timestamps Action Dose Route Other Information 03/25/24 1224 Given 1 lozenge mouth/throat Performed by: Liberty Taylor RN Scanned Package: [id number] dextrose gel in packet 15 g [[id number]] Ordering Provider: Linda Haile MD Status: Verified [...] medication) dextrose (D10W) 10% bolus 250 mL [[id number]] Ordering Provider: Linda Haile MD Status: Verified [...] hour post treatment. If BG is less yndw387 mg/dL, repeat Q15 minute BG checks and treatment. Call MD for each episode of hypoglycemia. (No admins scheduled or recorded for this medication) glucagon injection 1 mg [[id number]] Ordering Provider: Linda Haile MD Status: Verified [...] this medication) oxyCODONE (ROXICODONE) tablet 7.5 mg [[id number]] Ordering Provider: Vince Allen MD Status: Dispensed Ordered On: 03/17/24 1037 Start: 03/17/24 1036 Ordered Dose (Remaining/Total): 7.5 mg (--/--) Route: oral Frequency: Every 4 hours PRN Ordered Rate/Order Duration: -- / -- Timestamps Action Dose Route Other Information 03/31/24 1008 Given 7.5 mg oral Performed by: Alyx Ma RN Scanned Package: 19758-977-10 hydrOXYzine (ATARAX) tablet 50 mg [[id number]] Ordering Provider: Demetri Serrano MD Status: Dispensed Ordered On: 03/17/24 1634 Start: 03/17/24 1634 Ordered Dose (Remaining/Total): 50 mg (--/--) Route: oral Frequency: Every 4 hours PRN Ordered Rate/Order Duration: -- / -- Timestamps Action Dose Route Other Information 03/30/24 2025 Given 50 mg oral Performed by: Leighann Solitario Scanned Package: 27802-340-73, 19251-903-96 enoxaparin (LOVENOX) syringe 30 mg [[id number]] Ordering Provider: Xochitl Esquivel NP Status: Dispensed Ordered On: 03/18/24 1152 Start: 03/18/24 2100 Ordered Dose (Remaining/Total): 30 mg (--/--) Route: subcutaneous Frequency: Every 12 hours scheduled Ordered Rate/Order Duration: -- / -- Timestamps Action Dose Route / Site Other Information 03/31/24 0908 Given 30 mg subcutaneous Left Upper Arm Performed by: Alyx Ma RN Scanned Package: 74626-051-24 lidocaine (ASPERCREME) 4 % patch 2 patch [[id number]] Ordering Provider: Xochitl Esquivel NP Status: Dispensed [...] (Comment) Performed by: Buffy Washington Scanned Package: 4743-0319-08, 4718-6401-11 traZODone (DESYREL) tablet 50 mg [[id number]] Ordering Provider: Xochitl Esquivel NP Status: Dispensed Ordered On: 03/18/24 1529 Start: 03/18/242099 Ordered Dose (Remaining/Total): 50 mg (--/--) Route: oral Frequency: Nightly Ordered Rate/Order Duration: -- / -- Timestamps Action Dose Route Other Information 03/30/242023 Given 50 mg oral Performed by: Leighann Solitario Scanned Package: 30120-018-87 polyethylene glycol (MIRALAX) packet 17 g [[id number]] Ordering Provider: Xochitl Esquivel NP Status: Dispensed Ordered On: 03/19/24 0903 Start: 03/19/242099 Ordered Dose (Remaining/Total): 17 g (--/--) Route: oral Frequency: 2 times daily Ordered Rate/Order Duration: -- / -- Timestamps Action Dose Route Other Information 03/22/24 0837 Given 17 g oral Performed by: Chichi Mitchell Scanned Package: 52259-526-17 bisacodyL (DULCOLAX) suppository 10 mg [[id number]] Ordering Provider: Xochitl Esquivel NP Status: Dispensed (Past End Date/Time) Ordered On: 03/19/24 0915 Starts/Ends: 03/19/24 1000 - 03/20/24 1000 Ordered Dose (Remaining/Total): 10 mg (1/1) Route: rectal Frequency: Once Ordered Rate/Order Duration: -- / -- (No admins scheduled or recorded for this medication) HYDROmorphone (DILAUDID) injection 0.2 mg [[id number]] Ordering Provider: Demetri Serrano MD Status: Completed (Past End Date/Time) Ordered On: 03/21/24 0528 Starts/Ends: 03/21/24 06 - 03/21/24 0545 Ordered Dose (Remaining/Total): 0.2 mg (0/1) Route: intravenous Frequency: Once Ordered Rate/Order Duration: -- / 2 Minutes Timestamps Action Dose / Duration Route Other Information 03/21/24 0543 Given 0.2 mg 2 Minutes intravenous Performed by: Elizabeth Bell RN Scanned Package: 10821-797-64 pregabalin (LYRICA) capsule 100 mg [[id number]] Ordering Provider: Shi Levi MD Status: Dispensed Ordered On: 03/21/24 0730 Start: 03/21/24 0900 Ordered Dose (Remaining/Total): 100 mg (--/--) Route: oral Frequency: 3 times daily Ordered Rate/Order Duration: -- / -- Timestamps Action Dose Route Other Information 03/31/24 0908 Given 100 mg oral Performed by: Alyx Ma RN Scanned Package: 20382-596-77 insulin glargine (LANTUS, SEMGLEE) 100 unit/mL injection 2 Units [[id number]] Ordering Provider: Demetri Serrano MD Status: Completed [...] Performed by: Dilcia Torres, JULISSA Scanned Package: 12315-808-44 insulin glargine (LANTUS, SEMGLEE) 100 unit/mL injection 30 Units [[id number]] Ordering Provider: Ximena Diaz NP Status: Dispensed Ordered On: 03/25/24 0725 Start: 03/25/24 0900 Ordered Dose (Remaining/Total): 30 Units (--/--) Route: subcutaneous Frequency: Every morning Ordered Rate/Order Duration: -- / -- Admin Instructions: Do not hold if NPO. Do not mix with other insulins Timestamps Action Dose Route / Site Other Information 03/31/24 0908 Given 30 Units subcutaneous Right Upper Arm Performed by: Alyx Ma RN Scanned Package: 79451-380-28 insulin lispro (HumaLOG, ADMELOG) 100 unit/mL injection 2 Units [[id number]] Ordering Provider: Ximena Diaz NP Status: Verified Ordered On: 03/25/24 0737 Start: 03/25/24 0734 Ordered Dose (Remaining/Total): 2 Units (--/--) Route: subcutaneous Frequency: Every 6 hours PRN Ordered Rate/Order Duration: -- / -- Admin Instructions: Please give with snacks. (No admins scheduled or recorded for this medication) insulin lispro (HumaLOG, ADMELOG) 100 unit/mL injection 20 Units [[id number]] Ordering Provider: Ximena Diaz NP Status: Dispensed Ordered On: 03/25/24 0745 Start: 03/25/24 08 Ordered Dose (Remaining/Total): 20 Units (--/--) Route: [...] Performed by: Alyx Ma RN Scanned Package: 0561-4354-85 oxyCODONE (ROXICODONE) tablet 5 mg [[id number]] Ordering Provider: Demetri Serrano MD Status: Completed (Past End Date/Time) Ordered On: 03/28/24 1127 Starts/Ends: 03/28/24 1200 - 03/28/24 1214 Ordered Dose (Remaining/Total): 5 mg (0/1) Route: oral Frequency: Once Ordered Rate/Order Duration: -- / -- Timestamps Action Dose Route Other Information 03/28/24 1214 Given 5 mg oral Performed by: Lorena Acevedo RN Scanned Package: 87889-414-55 methocarbamoL (ROBAXIN) tablet 1,000 mg [[id number]] Ordering Provider: Karuna Mithcell NP Status: Dispensed Ordered On: 03/28/24 1352 Start: 03/28/24 1700 Ordered Dose (Remaining/Total): 1,000 mg (--/--) Route: oral Frequency: 4 times daily Ordered Rate/Order Duration: -- / -- Timestamps Action Dose Route Other Information 03/31/24 0942 Given 1,000 mg oral Performed by: Alyx Ma RN Scanned Package: 00124-635-87, 27887-592-59 insulin lispro (HumaLOG, ADMELOG) 100 unit/mL injection 0-10 Units [[id number]] Ordering Provider: Messi Hummel MD Status: Dispensed [...] Performed by: Alyx Ma RN Scanned Package: 3004-3515-88 miconazole 2 % cream [[id number]] Ordering Provider: Riki Isidro MD Status: Dispensed [...] pain, esnure rest, monitor las/ surgical wounds Group Home Patient Centered Goal for Treatment: Mobility, Pain [...] related to Diabetes will improve: Collaborate with sleever for diabetes evaluation and/or teaching Instruct on [...] (Taken 03/23/2024 2100 by Dilcia Torres, RN) Achieves maximal functionality and self care: Encourage and assist patient to increase activity andself care with guidance from therapies Goal: Ability to maintain intracranial pressure will improve Outcome: Progressing Flowsheets (Taken 03/30/2024 2341) Ability to maintain intracranial pressure will improve: [...] (Taken 03/24/2024 0900 by Maryuri Limon, RN) Return activities of daily living status to a safe level of function: Assess patient's activities of daily living deficits and provide assistive devices as needed Goal: Ability to perform activities at highest level will improve Outcome: Progressing Flowsheets (Taken 03/30/2024 2341) Ability to perform activities at highest level [...] improve Outcome: Progressing Flowsheets (Taken 03/30/2024 1056) Understanding of ways to prevent future skin [...] improve Outcome: Progressing Flowsheets (Taken 03/30/2024 105) Nutritional intake and knowledge related to Diabetes will improve: Collaborate with sleever for diabetes evaluation and/or teaching Instruct on counting carbohydrates Problem: Neurosensory Goal: Achieves stable or improved neurological status Outcome: Progressing Flowsheets (Taken 03/30/2024 105) Achieves Stable or Improved Neurological Status: Assess for and report changes in neurological status Goal: Remains free of injury related to seizures activity Outcome: Progressing Problem: Musculoskeletal Goal: Maintain proper alignment of affected body part Outcome: Progressing Flowsheets (Taken 03/30/2024 105) Maintain proper alignment of affected body part: Support and protect limb and body alignment per provider's orders Goal: Return mobility to safest level of function Outcome: Progressing Flowsheets (Taken 03/30/2024 105) Return mobility to safest level of function: [...] during hospitalization Outcome: Progressing Flowsheets (Taken 03/30/2024 1056) Absence of infection during hospitalization: Assess and monitor for signs and symptoms of infection Problem: Metabolic/Fluid and Electrolytes Goal: Glucose maintained within prescribed range Outcome: Progressing Flowsheets (Taken 03/30/2024 1056) Glucose maintained within prescribed range: Assess for signs and symptoms of hyperglycemia and hypoglycemia, monitor glucose as ordered Administer ordered medications to maintain glucose within target range Assess barriers to adequate nutritional intake and initiate nutrition consult as needed Problem: Fall Risk Goal: Ability to state ways to decrease the risk of falls will improve Outcome: Progressing Flowsheets (Taken 03/30/2024 1056) Ability to state ways to decrease the risk of falls will improve: Teach fall prevention measures Goal: Will remain free from falls Outcome: Progressing Flowsheets (Taken 03/30/2024 1056) Will remain free from falls: Assess risk factors for falls Implement fall prevention measures Goal: Will remain free from injury from falls Outcome: Progressing Flowsheets (Taken 03/30/2024 1056) Will remain free from injury from falls: Provide safe environment for conduction of activities of daily living in hospital environment Problem: Skin/Tissue Integrity Goal: Incisions, wounds, or drain sites healing without S/S of infection Outcome: Progressing Flowsheets (Taken 03/30/2024 1056) Incision(s), Wound(s) or Drain Site(s) healing without [...] Contact Info: New Consults: Place order in [facility]; If URGENT, call Diabetes Fellow: [phone]. All consults will be seen within 24hrs Check 'Treatment Team' assignment for Diabetes 1 vs 2 vs 3 General Endocrinology (Non-Diabetes): [phone] Diabetes After-Hours & Weekends: Diabetes Fellow Patient: Farzana Bran, 59 y.o. female (: 1965) Room: [place] [address] ( ) LOS: 20 Farzana Bran is [...] comorbidities: <7% Diabetes Provider: PCP Insurance: Payor: [facility] MEDICARE / Plan: MEDICARE SOLUTIONS / Product Type: [facility] MEDICARE / Home regimen: Lantus 10 units [...] labs, pain, free from falls and injury. Group Home Patient Centered Goal for Treatment: Mobility, Pain management Summary: continue with plan of care * Consults, Subsequent - Messi Hummel MD - 03/29/2024 10:02 AM CDT Images from the original note were not included. Division of Endocrinology, Metabolism, & Lipid Research Contact Info: New Consults: Place order in [facility]; If URGENT, call Diabetes Fellow: [phone]. All consults will be seen within 24hrs Check 'Treatment Team' assignment for Diabetes 1 vs 2 vs 3 General Endocrinology (Non-Diabetes): [phone] Diabetes After-Hours & Weekends: Diabetes Fellow Endocrinology & Diabetes Brief Note Patient: Farzana Bran, 59 y.o. female (: 1965) Room: [place] [address] ( ) LOS: 20 Farzana Bran is [...] acute events overnight. Patient irritated by food runner. High yesterday attributed to pain. Summary from [...] comorbidities: <7% Diabetes Provider: PCP Insurance: Payor: [employer] MEDICARE / Plan: MEDICARE SOLUTIONS / Product Type: [facility] MEDICARE / Home regimen: Lantus 10 units [...] Pain management, ambulation, promote comfort and safety Supervisor Home Economics Patient Centered Goal for Treatment: Mobility, Pain [...] vertebra, unspecified cervical vertebral level, initial encounter ([facility])[S12.9XXA] Closed unstable burst fracture of eleventh thoracic vertebra, initial encounter ([facility]) [S22.082A] PMD: Nayana Garber PA Medication [...] yearly or sooner as indicated by your male infertility specialist Pending results for primary service or [...] Bran, 59 y.o. female (: 1965) Room: [place] [id number] ( ) LOS: 19 Farzana Bran is [...] Labs Lab Units 03/28/24 1203 03/28/24 0804 03/27/24200203/27/24 1614 03/27/24 1221 03/27/24 0748 03/26/24 2055 03/26/24 1731 03/26/24 1143 03/26/24 0800 POC GLUCOSE [...] comorbidities: <7% Diabetes Provider: PCP Insurance: Payor: [facility] MEDICARE / Plan: MEDICARE SOLUTIONS / Product Type: [facility] MEDICARE / Home regimen: Lantus 10 units [...] juices, no regular soda - please have clinical educator meet with patient - please have nuclear physics teacher meet with patient- needs further education on [...] with PCP on discharge Likely basal/bolus + Cristobalunkeya -- Karuna Hurst NP Endocrinology, Metabolism, & Lipid Research Contact Info: New Consults: [phone]) General Endocrine (Non-Diabetes): [phone] (Check 'Treatment Team' assignment for Diabetes 1 vs 2 vs 3) Diabetes After-Hours & Weekends: Diabetes Fellow [phone] or [phone] * Plan of Care - Radha Campos RN - 03/28/2024 9:05 AM CDT Akanksha of [facility] ([phone]) left voicemail after hours requesting additional information for patient. Left message with Akanksha to call CM back. Spoke to Akanksha of [facility]. Akanksha informed CM she will review referral with corporate nurse and will call back. Spoke to Moustapha of [facility]. Declined patient at this time due to patient not actively participating in therapy and complex needs. Will follow up with patient to request additional referrals. UPDATE Attempted to update patient on above. Staff currently working with patient. * Plan of Care - Radha Campos RN - 03/27/2024 11:59 AM CDT [facility] unable to accept patient due to patient's care needs exceeding current capacity. Patient requested referral be re-sent to [facility]. CM sent updates to this facility and [facility] and [facility] in [place], [place]. Spoke to Maday of [facility] in [place], [place]. Unable to accept patient due to patient's care needs exceeding current capacity. Spoke to admissions of [facility] ([phone]). Was informed to fax referral to [phone]. This was completed. * ECIN Note - [...] belt not utilized, see comment Spinal precautions -MD Subjective -- Agreeable to Therapy - OT Missed Visit Reason Other (comment) -CE -- Family/Caregiver Present -- No -MD Precautions -- Fall risk;Cervical spine - Weight [...] for balance, controlled descent and force production - Arousal/Alertness -- Alert;Appropriate responses to stimuli - Attention Span -- Appears intact - Current communication -- Appears Intact - Orientation -- Oriented X4 (person, place, time, situation) - Following Commands -- Follows all commands and directions without difficulty - Safety Judgment -- Good awareness of safety precautions - Awareness of Errors -- Good awareness of errors made - Insight -- Fully aware of deficits - Problem Solving -- Able to problem solve [...] last note, consider this the discharge summary -MD OT Recommendation -- Care Home Facility -MD Patient at high risk for [...] during current admission -- Progressing toward goals -MD OT - Next Appointment -- 03/25/24 -MD OT - OK to Discharge -- No -MD Start Time -- 1112 -MD Stop Time -- 1150 -MD Time Calculation (min) -- 38 min - [...] Easy to engage -LM Easy to engage - Balance Balance -- -- -- Yes -SM [...] -LM -- Supine -LM Edge of bed -SM Bed Mobility Type 1 To and from [...] -- 1 rep to left and 2 repsto right; with bed rail; min assist to [...] friend may bring her a shoe tomorrow. - Ambulation 1 Distance (ft) 1 20 -LM [...] flexed;Step length - decreased;Turns - difficulty -LM Base of support - decreased;[place]- decreased;Posture - flexed;Step length - decreased;Turns - difficulty;Heel strike - decreased -NB-- -- Quality of Gait 1 requires cues [...] shoes, but they've been unable. Therapist contacted PERIOPERATIVE EDUCATOR to order post- op shoe for right foot in order to correctleg length discrepancy from left post op shoe and to make ambulation more comfortable. -LM -- Patient requires increased time for mobility; tolerates activity fairly well. -LM pt is motivated to workwith therapy and [...] bed;Call light within reach;Overbed table within reach - Assessment Prognosis -- Good -NB -- Good -SM Problem List -- Gait deviations;Decreased strength;Decreased range of motion;Decreased endurance;Impaired balance;Decreased mobility -NB -- Gait deviations;Decreased strength;Decreased endurance;Impaired balance;Decreased mobility;Pain;Orthopedic restrictions - Barriers to Discharge -- Current Mobility Status -NB -- Current Mobility Status;Decreased caregiversupport - Plan Plan Continue with current plan;If [...] the discharge summary -SM Recommendation/Plan PT Recommendation/Plan Care Home Facility -LM Care Home Facility -NB Care Home Facility - Care Home Facility - Patient at high risk for Falls;Readmission;Injury due [...] of independence - Risk of injury at home;Unable to safely [...] to prior level of independence - PT Frequency during current admission 5-7x/wk -LM 5-7x/wk -NB 5-7x/wk -LM 5- 7x/wk -SM Treatment/Interventions during current admission -- Balance Training;Functional transfer training;Gait training;Therapeutic activity;Strengthening - -- Balance Training;Bed mobility;Endurance training;Functional activity;Functional transfer training;Gait training;Neuromuscular re-education;Stair t raining;Strengthening;Therapeutic activity;Therapeutic exercise;Transfer training -SM Progress during current admission Slow progress, decreased [...] Recent Administrations acetaminophen (TYLENOL) tablet 1,000 mg [[id number]] Ordering Provider: Rosalio Calixto MD Status: Completed (Past End Date/Time) Ordered On: 03/08/241836 Starts/Ends: 03/08/241837 - 03/08/241855 Ordered Dose (Remaining/Total): 1,000 mg (0/1) Route: oral Frequency: Once Ordered Rate/Order Duration: -- / -- Timestamps Action Dose Route Other Information 03/08/241855 Given 1,000 mg oral Performed by: Brionna Pitt RN Scanned Package: 3932-8168-42, 2458-6464-05 droPERidol (INAPSINE) injection 1.25 mg [[id number]] Ordering Provider: Rosalio Calixto MD Status: Completed [...] Performed by: Brionna Pitt RN Scanned Package: 7713-6848-02 fentaNYL (SUBLIMAZE) preservative free injection 50 mcg [[id number]] Ordering Provider: Rosalio Calixto MD Status: Completed [...] Performed by: Brionna Pitt RN Scanned Package: 0088-5588-84 ioversoL (OPTIRAY 350) syringe 100 mL [[id number]] Ordering Provider: Rosalio Calixto MD Status: Completed [...] RT ioversoL (OPTIRAY 350) syringe 125 mL [[id number]] Ordering Provider: Rosalio Calixto MD Status: Completed [...] Hill RT gadoterate meglumine injection 14 mL [[id number]] Ordering Provider: Rosalio Calixto MD Status: Completed [...] (HumaLOG, ADMELOG) 100 unit/mL injection 4 Units [[id number]] Ordering Provider: Ho An MD Status: Completed (Past End Date/Time) Ordered On: 03/09/24332 Starts/Ends: 03/09/24333 - 03/09/24342 Ordered Dose (Remaining/Total): 4 Units (0/1) Route: subcutaneous Frequency: Once Ordered Rate/Order Duration: -- / -- Timestamps Action Dose Route / Site Other Information 03/09/24 0343 Given 4 Units subcutaneous Left Lower Abdomen Performed by: Brionna Pitt RN Scanned Package: 2055-8277-96 droPERidol (INAPSINE) injection 1.25 mg [[id number]] Ordering Provider: Ho An MD Status: Completed [...] Performed by: Odilia Vega RN Scanned Package: 1138-7171-01 sodium chloride 0.9% flush 0.5-20 mL [[id number]] Ordering Provider: Ericka Estes MD Status: Verified Ordered On: 03/09/24608 Start: 03/09/24644 Ordered Dose (Remaining/Total): 0.5-20 mL (--/--) Route: intra-catheter Frequency: Every 8 hours scheduled Ordered Rate/Order Duration: -- / -- Admin Instructions: Flush volume based on line type and size. Timestamps Action Dose Route Other Information 03/26/242144 Given 10 mL intra-catheter Performed by: Mary Zarate Scanned Package: [id number] sodium chloride 0.9% flush 0.5-20 mL [[id number]] Ordering Provider: Ericka Estse MD Status: Verified Ordered On: 03/09/24608 Start: 03/09/24606 Ordered Dose (Remaining/Total): 0.5-20 mL (--/--) Route: intra-catheter Frequency: As needed Ordered Rate/Order Duration: -- / -- Admin Instructions: Flush volume based on line type and size. Flush before and after each use. Timestamps Action Dose Route Other Information 03/25/24 0635 Given 10 mL intra-catheter Performed by: Isha Cox RN Scanned Package: [id number] Carrier Fluids for Secondary Infusion - 0.9% Sodium Chloride [[id number]] Ordering Provider: Ericka Estes MD Status: Dispensed [...] (1 %) preservative free injection 200 mg [[id number]] Ordering Provider: Varun Song MD Status: Completed (Past End Date/Time) Ordered On: 03/09/24 1240 Starts/Ends: 03/09/24 1315 - 03/09/24 1312 Ordered Dose (Remaining/Total): 20 mL (0/1) Route: infiltration Frequency: Once Ordered Rate/Order Duration: -- / -- Timestamps Action Dose Route Other Information 03/09/24 1312 Given 200 mg infiltration Performed by: Keyonna Hernandez RN HYDROmorphone (DILAUDID) injection 0.5 mg [[id number]] Ordering Provider: Varun Song MD Status: Completed [...] halo placement droPERidol (INAPSINE) injection 1.25 mg [[id number]] Ordering Provider: Varun Song MD Status: Dispensed (Past End Date/Time) Ordered On: 03/09/241335 Starts/Ends: 03/09/241414 - 03/10/24 141 Ordered Dose (Remaining/Total): 1.25 mg (1/1) Route: intravenous Frequency: Once Ordered Rate/Order Duration: -- / -- Admin Instructions: If administered IV push, administer over 5 min for adults. (No admins scheduled or recorded for this medication) HYDROmorphone (DILAUDID) injection 0.5 mg [[id number]] Ordering Provider: Varun Song MD Status: Completed (Past End Date/Time) Ordered On: 03/09/241336 Starts/Ends: 03/09/24 141 - 03/09/24 133 Ordered Dose (Remaining/Total): 0.5 mg (0/1) Route: intravenous Frequency: Once Ordered Rate/Order Duration: -- / 2 Minutes Timestamps Action Dose / Duration Route Other Information 03/09/24 133 Given 0.5 mg 2 Minutes intravenous Performed by: Keyonna Hernandez RN Comments: halo placement methocarbamoL (ROBAXIN) tablet 500 mg [[id number]] Ordering Provider: Bernardino Gleason MD Status: Completed (Past End Date/Time) Ordered On: 03/09/242042 Starts/Ends: 03/09/242114 - 03/09/242122 Ordered Dose (Remaining/Total): 500 mg (0/1) Route: oral Frequency: Once Ordered Rate/Order Duration: -- / -- Timestamps Action Dose Route Other Information 03/09/242122 Given 500 mg oral Performed by: Haley Varner RN Scanned Package: 63901-006-69 magnesium sulfate 2 g/50 mL in water (premix) 2 g [[id number]] Ordering Provider: Bernardino Gleason MD Status: Completed (Past End Date/Time) Ordered On: 03/09/242134 Starts/Ends: 03/09/242214 - 03/09/242326 Ordered Dose (Remaining/Total): 2 g (0/1) Route: intravenous Frequency: Once Ordered Rate/Order Duration: -- / 60 Minutes Timestamps Action Dose / Duration Route Other Information 03/09/242226 New Bag 2 g 60 Minutes intravenous Performed by: Haley Varner RN Scanned Package: 56950-709-48 potassium chloride (KLOR-CON) packet 20 mEq [[id number]] Ordering Provider: Bernardino Gleason MD Status: Completed [...] administration. Timestamps Action Dose Route Other Information 03/10/2414 Given 20 mEq feeding tube Performed by: Haley Varner RN Scanned Package: [address]-6 HYDROmorphone (DILAUDID) injection 0.5 mg [[id number]] Ordering Provider: Bernardino Gleason MD Status: Completed (Past End Date/Time) Ordered On: 03/10/24 0507 Starts/Ends: 03/10/24544 - 03/10/24 0516 Ordered Dose (Remaining/Total): 0.5 mg (0/1) Route: intravenous Frequency: Once Ordered Rate/Order Duration: -- / 2 Minutes Timestamps Action Dose / Duration Route Other Information 03/10/24 0514 Given 0.5 mg 2 Minutes intravenous Performed by: Haley Varner RN Scanned Package: 00523-771-35 magnesium sulfate 2 g/50 mL in water (premix) 2 g [[id number]] Ordering Provider: Yunier Leach MD Status: Completed (Past End Date/Time) Ordered On: 03/10/24 1309 Starts/Ends: 03/10/24 1345 - 03/10/24 1537 Ordered Dose (Remaining/Total): 2 g (0/1) Route: intravenous Frequency: Once Ordered Rate/Order Duration: -- / 60 Minutes Line Med Link Info Comment Peripheral IV 03/09/24 20 G Left Antecubital 03/10/24 1437 by aDrius Ghosh RN -- Timestamps Action Dose / Duration Route Other Information 03/10/24 143 New Bag 2 g 60 Minutes intravenous Performed by: Darius Ghosh RN Scanned Package: 94019-545-01 potassium chloride (KLOR-CON) packet 40 mEq [[id number]] Ordering Provider: Yunier Leach MD Status: Completed (Past End Date/Time) Ordered On: 03/10/24 143 Starts/Ends: 03/10/24 174 - 03/10/242042 Ordered Dose [...] Performed by: Janett Ledezma RN Scanned Package: [address]-3, [address]-4 sodium chloride 0.9% bolus 1,000 mL [[id number]] Ordering Provider: Eloise Knapp MD Status: Completed [...] Performed by: Soco Schwarz RN Scanned Package: 8284-7845-52, 1386-2383-56 magnesium sulfate 2 g/50 mL in water (premix) 2 g [[id number]] Ordering Provider: Jane Hoover MD Status: Completed [...] Performed by: Janett Ledezma RN Scanned Package: 43955-046-23 senna-docusate (PERICOLACE) 8.6-50 mg per tablet 1 tablet [[id number]] Ordering Provider: Ericka Estes MD Status: Dispensed Ordered On: 03/12/24 0954 Start: 03/12/24 2100 Ordered Dose (Remaining/Total): 1 tablet (--/--) Route: oral Frequency: 2 times daily Ordered Rate/Order Duration: -- / -- Timestamps Action Dose Route Other Information 03/27/24 0827 Given 1 tablet oral Performed by: Mala Lion Scanned Package: 3133-8224-75 lidocaine (PF) (XYLOCAINE) 10 mg/mL (1 %) preservative free injection 10-20 mg [[id number]] Ordering Provider: Jane Hoover MD Status: Completed (Past End Date/Time) Ordered On: 03/12/24 1832 Starts/Ends: 03/12/241914 - 03/12/242129 Ordered Dose (Remaining/Total): [...] PICC sodium chloride 0.9% flush 5-10 mL [[id number]] Ordering Provider: Ericka Estes MD Status: Verified Ordered On: 03/12/241831 Start: 03/12/242099 Ordered Dose (Remaining/Total): 5-10 mL (--/--) Route: intra-catheter Frequency: Every 12 hours scheduled Ordered Rate/Order Duration: -- / -- Admin Instructions: Flush volume based on line type, size, and protocol. Timestamps Action Dose Route Other Information 03/25/24 122 Given 10 mL intra-catheter Performed by: Liberty Taylor RN Scanned Package: [id number] sodium chloride 0.9% flush 5-20 mL [[id number]] Ordering Provider: Ericka Estes MD Status: Verified Ordered On: 03/12/241831 Start: 03/12/241827 Ordered Dose (Remaining/Total): 5-20 mL (--/--) Route: intra-catheter Frequency: As needed Ordered Rate/Order Duration: -- / -- Admin Instructions: Flush volume based on line type, size, and protocol. (No admins scheduled or recorded for this medication) sodium chloride 0.9% flush 5-10 mL [[id number]] Ordering Provider: Ericka Estes MD Status: Verified Ordered On: 03/12/241831 Start: 03/12/242099 Ordered Dose (Remaining/Total): 5-10 mL (--/--) Route: intra-catheter Frequency: Every 12 hours scheduled Ordered Rate/Order Duration: -- / -- Admin Instructions: Flush volume based on line type, size, and protocol. Timestamps Action Dose Route Other Information 03/25/24 1226 Given 10 mL intra-catheter Performed by: Liberty Taylor RN Scanned Package: [id number] sodium chloride 0.9% flush 5-20 mL [[id number]] Ordering Provider: Eircka Estes MD Status: Verified Ordered On: 03/12/241831 Start: 03/12/241830 Ordered Dose (Remaining/Total): 5-20 mL (--/--) Route: intra-catheter Frequency: As needed Ordered Rate/Order Duration: -- / -- Admin Instructions: Flush volume based on line type, size, and protocol. (No admins scheduled or recorded for this medication) acetaminophen (TYLENOL) tablet 1,000 mg [[id number]] Ordering Provider: Ericka Estes MD Status: Dispensed Ordered On: 03/13/241119 Start: 03/13/24 1200 Ordered Dose (Remaining/Total): 1,000 mg (--/--) Route: oral Frequency: Every 6 hours scheduled Ordered Rate/Order Duration: -- / -- Timestamps Action Dose Route Other Information 03/27/24 0604 Given 1,000 mg oral Performed by: Mary Zarate Scanned Package: 9589-6573-36, 8982-6019-80 magnesium sulfate 2 g/50 mL in water (premix) 2 g [[id number]] Ordering Provider: Johnny Corcoran MD Status: Completed (Past End Date/Time) Ordered On: 03/13/24 112 Starts/Ends: 03/13/24 1200 - 03/13/24 1306 Ordered Dose (Remaining/Total): 2 g (0/1) Route: intravenous Frequency: Once Ordered Rate/Order Duration: -- / 60 Minutes Timestamps Action Dose / Duration Route Other Information 03/13/24 1206 New Bag 2 g 60 Minutes intravenous Performed by: Kenyatta Dumont RN Scanned Package: 40530-275-62 ceFAZolin (ANCEF) 1 gram/10 mL in sterile water (premix) 1,000 mg [[id number]] Ordering Provider: Ericka Estes MD Status: Completed [...] Performed by: June Guerrero RN Scanned Package: 2039-6656-62 miconazole (SECURA THICK) 2 % cream [[id number]] Ordering Provider: Linda Haile MD Status: Verified Ordered On: 03/14/24 0011 Starts/Ends: 03/14/24 0045 - 03/27/242058 Ordered Dose (Remaining/Total): -- (03/09) Route: topical Frequency: 2 times daily Ordered Rate/Order Duration: -- / -- Question Answer Comment Apply to affected area:: rash -- Timestamps Action Dose / Rate / Duration Route Other Information 03/27/24 0831 Given -- topical Performed by: Mala Lion Scanned Package: 06342-674-44 haloperidol (HALDOL) 5 mg/mL injection - ADS Override Pull [[id number]] Status: Dispensed (Past End Date/Time) Ordered On: 03/14/24 045 Starts/Ends: 03/14/24 0452 - 03/14/24 1659 Ordered Dose (Remaining/Total): -- (08/13) Route: -- Frequency: -- Ordered Rate/Order Duration: -- / -- Admin Instructions: Created by cabinet override Note to pharmacy: Created by cabinet override (No admins scheduled or recorded for this medication) linezolid (ZYVOX) tablet 600 mg [[id number]] Ordering Provider: Vince Allen MD Status: Completed (Past End Date/Time) Ordered On: 03/14/24 1155 Starts/Ends: 03/14/24 1230 - 03/14/24 2114 Ordered Dose (Remaining/Total): 600 mg (0/2) Route: oral Frequency: 2 times daily Ordered Rate/Order Duration: -- / -- Timestamps Action Dose Route Other Information 03/14/24 2114 Given 600 mg oral Performed by: June Guerrero RN Scanned Package: 13438-650-23 benzocaine-menthoL (CHLORASEPTIC) lozenge 1 lozenge [[id number]] Ordering Provider: Linda Haile MD Status: Dispensed Ordered On: 03/15/24436 Start: 03/15/24436 Ordered Dose (Remaining/Total): 1 lozenge (--/--) Route: mouth/throat Frequency: Every 3 hours PRN Ordered Rate/Order Duration: -- / -- Timestamps Action Dose Route Other Information 03/25/24 1224 Given 1 lozenge mouth/throat Performed by: Liberty Taylor RN Scanned Package: [id number] dextrose gel in packet 15 g [[id number]] Ordering Provider: Linda Haile MD Status: Verified [...] medication) dextrose (D10W) 10% bolus 250 mL [[id number]] Ordering Provider: Linda Haile MD Status: Verified Ordered On: 03/16/24 0851 Start: 03/16/24845 Ordered Dose (Remaining/Total): 250 mL (--/--) Route: intravenous Frequency: Every 15 min PRN Ordered Rate/Order Duration: 1,000 mL/hr / 15 Minutes Admin Instructions: After treatment for hypoglycemia, recheck BG followed by treatment every 15 minutes until the BG is greater than 100 mg/dL. Then check BG 1 hour post treatment. If BG is less myvt970 mg/dL, repeat Q15 minute BG checks and treatment. Call MD for each episode of hypoglycemia. (No admins scheduled or recorded for this medication) glucagon injection 1 mg [[id number]] Ordering Provider: Linda Haile MD Status: Verified Ordered On: 03/16/24850 Start: 03/16/24 0846 Ordered Dose (Remaining/Total): 1 mg (--/--) Route: [...] (HumaLOG, ADMELOG) 100 unit/mL injection 0-10 Units [[id number]] Ordering Provider: Linda Haile MD Status: Dispensed Ordered On: 03/16/24850 Start: 03/16/24 1200 Ordered Dose (Remaining/Total): 0-10 [...] Action Dose Route / Site Other Information 03/27/24826 Given 4 Units subcutaneous Right Upper Arm Performed by: Mala Lion Package: 8015-6247-61 insulin lispro (HumaLOG, ADMELOG) 100 unit/mL injection 0-5 Units [[id number]] Ordering Provider: Linda Haile MD Status: Dispensed [...] subcutaneous Left Lower Abdomen Performed by: Mary aZrate Scanned Package: 3310-7239-81 oxyCODONE (ROXICODONE) tablet 7.5 mg [[id number]] Ordering Provider: Vince Allen MD Status: Dispensed Ordered On: 03/17/24 1037 Start: 03/17/24 1036 Ordered Dose (Remaining/Total): 7.5 mg (--/--) Route: oral Frequency: Every 4 hours PRN Ordered Rate/Order Duration: -- / -- Timestamps Action Dose Route Other Information 03/27/24 0827 Given 7.5 mg oral Performed by: Mala Lion Scanned Package: 45721-239-71 hydrOXYzine (ATARAX) tablet 50 mg [[id number]] Ordering Provider: Demetri Serrano MD Status: Dispensed Ordered On: 03/17/24 1634 Start: 03/17/24 1634 Ordered Dose (Remaining/Total): 50 mg (--/--) Route: oral Frequency: Every 4 hours PRN Ordered Rate/Order Duration: -- / -- Timestamps Action Dose Route Other Information 03/27/24 0827 Given 50 mg oral Performed by: Mala Lion Scanned Package: 11678-257-02, 93111-214-21 enoxaparin (LOVENOX) syringe 30 mg [[id number]] Ordering Provider: Xochitl Esquivel NP Status: Dispensed Ordered On: 03/18/24 1152 Start: 03/18/24 2100 Ordered Dose (Remaining/Total): 30 mg (--/--) Route: subcutaneous Frequency: Every 12 hours scheduled Ordered Rate/Order Duration: -- / -- Timestamps Action Dose Route / Site Other Information 03/27/24 0827 Given 30 mg subcutaneous Right Upper Abdomen Performed by: Mala Lion Scanned Package: 52113-134-40 lidocaine (ASPERCREME) 4 % patch 2 patch [[id number]] Ordering Provider: Xochitl Esquivel NP Status: Dispensed Ordered On: 03/18/24 115 Start: 03/18/24 1230 Ordered Dose (Remaining/Total): 2 [...] Comments: r arm r shoulder Scanned Package: 5324-8692-73, 2896-2109-85 methocarbamoL (ROBAXIN) tablet 750 mg [[id number]] Ordering Provider: Xochitl Esquivel NP Status: Dispensed Ordered On: 03/18/24 115 Start: 03/18/24 1600 Ordered Dose (Remaining/Total): 750 mg (--/--) Route: oral Frequency: 3 times daily Ordered Rate/Order Duration: -- / -- Timestamps Action Dose Route Other Information 03/27/24 0827 Given 750 mg oral Performed by: Mala Lion Scanned Package: 20734-942-33 traZODone (DESYREL) tablet 50 mg [[id number]] Ordering Provider: Xochitl Esquivel NP Status: Dispensed Ordered On: 03/18/24 1529 Start: 03/18/24 2100 Ordered Dose (Remaining/Total): 50 mg (--/--) Route: oral Frequency: Nightly Ordered Rate/Order Duration: -- / -- Timestamps Action Dose Route Other Information 03/26/242143 Given 50 mg oral Performed by: Mary Zarate Scanned Package: 00501-830-68 polyethylene glycol (MIRALAX) packet 17 g [[id number]] Ordering Provider: Xochitl Esquivel NP Status: Dispensed Ordered On: 03/19/24 0903 Start: 03/19/24 2100 Ordered Dose (Remaining/Total): 17 g (--/--) Route: oral Frequency: 2 times daily Ordered Rate/Order Duration: -- / -- Timestamps Action Dose Route Other Information 03/22/24 0837 Given 17 g oral Performed by: Chichi Mitchell Scanned Package: 89608-372-14 bisacodyL (DULCOLAX) suppository 10 mg [[id number]] Ordering Provider: Xochitl Esquivel NP Status: Dispensed (Past End Date/Time) Ordered On: 03/19/24 0915 Starts/Ends: 03/19/24 1000 - 03/20/24 1000 Ordered Dose (Remaining/Total): 10 mg (1/1) Route: rectal Frequency: Once Ordered Rate/Order Duration: -- / -- (No admins scheduled or recorded for this medication) HYDROmorphone (DILAUDID) injection 0.2 mg [[id number]] Ordering Provider: Demetri Serrano MD Status: Completed (Past End Date/Time) Ordered On: 03/21/24 0528 Starts/Ends: 03/21/24 0600 - 03/21/24 0545 Ordered Dose (Remaining/Total): 0.2 mg (0/1) Route: intravenous Frequency: Once Ordered Rate/Order Duration: -- / 2 Minutes Timestamps Action Dose / Duration Route Other Information 03/21/24 0543 Given 0.2 mg 2 Minutes intravenous Performed by: Elizabeth Bell RN Scanned Package: 50844-141-24 pregabalin (LYRICA) capsule 100 mg [[id number]] Ordering Provider: Shi Levi MD Status: Dispensed Ordered On: 03/21/24 0730 Start: 03/21/24 0900 Ordered Dose (Remaining/Total): 100 mg (--/--) Route: oral Frequency: 3 times daily Ordered Rate/Order Duration: -- / -- Timestamps Action Dose Route Other Information 03/27/24 0827 Given 100 mg oral Performed by: Mala Lion Scanned Package: 93634-384-38 insulin glargine (LANTUS, SEMGLEE) 100 unit/mL injection 2 Units [[id number]] Ordering Provider: Demetri Serrano MD Status: Completed (Past End Date/Time) Ordered On: 03/23/241321 Starts/Ends: 03/23/24 132 - 03/23/241337 Ordered Dose (Remaining/Total): 2 Units (0/1) Route: subcutaneous Frequency: Once Ordered Rate/Order Duration: -- / -- Admin Instructions: Do not hold if NPO. Do not mix with other insulins Timestamps Action Dose Route / Site Other Information 03/23/241337 Given 2 Units subcutaneous Right Upper Arm Performed by: Dilcia Torres RN Scanned Package: 50546-841-32 insulin glargine (LANTUS, SEMGLEE) 100 unit/mL injection 30 Units [[id number]] Ordering Provider: Ximena Diaz NP Status: Dispensed Ordered On: 03/25/24 07 Start: 03/25/24 09 Ordered Dose (Remaining/Total): 30 Units (--/--) Route: subcutaneous Frequency: Every morning Ordered Rate/Order Duration: -- / -- Admin Instructions: Do not hold if NPO. Do not mix with other insulins Timestamps Action Dose Route / Site Other Information 03/27/24 0826 Given 30 Units subcutaneous Right Upper Arm Performed by: Mala Lion Scanned Package: 42073-689-16 insulin lispro (HumaLOG, ADMELOG) 100 unit/mL injection 2 Units [[id number]] Ordering Provider: Ximena Diaz NP Status: Verified Ordered On: 03/25/24 0737 Start: 03/25/24 0734 Ordered Dose (Remaining/Total): 2 Units (--/--) Route: subcutaneous Frequency: Every 6 hours PRN Ordered Rate/Order Duration: -- / -- Admin Instructions: Please give with snacks. (No admins scheduled or recorded for this medication) insulin lispro (HumaLOG, ADMELOG) 100 unit/mL injection 20 Units [[id number]] Ordering Provider: Ximena Diaz NP Status: Dispensed [...] Dose Route / Site Other Information 03/27/24 08 Given 20 Units subcutaneous Right Upper Arm Performed by: Mala Lion Scanned Package: 7626-4563-88 * ECIN Note - Radha Campos RN [...] 03/08/24 1817 No risk JDP Intake/Output 03/24/24 07 - 03/25/24 0659 03/25/24 0700 - 03/26/24 0659 03/26/24 07 - 03/27/24 0659 Total Total 5582-3665 2277-5216 7730-0039 Total Intake (ml) 520 637 -- 10 [...] assessed 03/10/24--will not follow Assessments Row Name 03/27/24 0827 03/26/24204403/26/24824 Dressing Status Clean/Dry/Intact;Changed Clean/Dry/Intact Clean/Dry/Intact;Changed Site Assessment Clean;Color appropriate for ethnicity;Dry Color appropriate for ethnicity;Dry Clean;Color appropriate for ethnicity;Dry Natalie-wound Assessment Dry;Intact Dry;Intact Dry;Intact Dressing Foam;Gauze vashe, foam, kerliix, tape Gauze;Foam vashe kerlix tape Foam;Gauze vashe, foam,kerliix, tape Wound 03/13/24 Incision Back Date First Assessed 03/13/24 Site Back Time First Assessed 2138 Days 13 Primary Wound Type: Incision Assessments Row Name 03/27/24 0827 03/26/24204403/26/2425 Dressing Status Clean/Dry/Intact Clean/Dry/Intact Clean/Dry/Intact Site Assessment [...] (Autopopulated from EMR) None found ............filed at 03/27/2024 08 History of Falling 0 ............filed at 03/27/2024 08 Secondary Diagnosis 15 ............filed at 03/27/2024 08 Ambulatory Aids 15 ............filed at 03/27/2024 08 Intravenous Therapy/Heparin/Saline Lock 20 ............filed at 03/27/2024 08 Gait/Transferring 10 ............filed at 03/27/2024 08 Mental Status 0 ............filed at 03/27/2024 08 Da Silva Fall Risk Score 60 ............filed at 03/27/2024 08 Vital Signs 03/26 0659 03/27 0703/27 1156 Most Recent Temp (??C) 36.4 - 36.8 36.4 36.4 (97.6) 03/27 700 Pulse 91 - 119 94 94 03/27 07 Resp 16 16 16 03/27 07 SpO2 (%) 93 - 100 94 94 03/27 700 BP 120/69 - 129/71 122/73 122/73 08/15 0700 MAP (mmHg) 71 - 83 84 84 03/27 0700 Default Flowsheet Data (most recent) Endurance Tests [...] Trendelenburg 03/25 0800 Pillow support Heels/Feet 03/25 08 Foot of bed elevated Range of Motion 03/27 0827 Active;All extremities 03/26 2045 Active;All extremities 03/26 0825 Active;All extremities 03/25 1945 Active;All extremities 03/25 1600 Active;All extremities 03/25 1200 Active;All extremities 03/25 0800 Active;All extremities 03/24 2000 Active;All extremities 03/24 1804 Active 03/24 1620 Active;All extremities Type of Device 03/25 08 Mechanical compression Mechanical Compression Site 03/27 08 Bilateral 03/26 2000 Bilateral 03/26 800 Bilateral 03/25 2000 Bilateral 03/25 800 Bilateral 03/24 2000 Bilateral Mechanical Compression Type 03/27 800 IPC/SCD 03/26 2000 IPC/SCD 03/26 800 IPC/SCD 03/25 2000 IPC/SCD 03/25 800 IPC/SCD 03/24 2000 IPC/SCD Mechanical Compression Status 03/27 08 Refused 03/26 2000 Refused 03/26 800 On 03/25 2000 On 03/24 2000 Off * Consults, Subsequent - Karuna Hurst NP - 03/27/2024 11:20 AM CDT Endocrinology & Diabetes Brief Note Patient: Farzana Bran, 59 y.o. female (: 1965) Room: [place] [address] ( ) LOS: 18 Farzana Bran is [...] comorbidities: <7% Diabetes Provider: PCP Insurance: Payor: [employer] MEDICARE / Plan: MEDICARE SOLUTIONS / Product [...] juices, no regular soda - please have clinical educator meet with patient - please have nuclear physics teacher meet with patient- needs further education on [...] & Lipid Research Contact Info: New Consults: [phone]) General Endocrine (Non-Diabetes): [phone] (Check 'Treatment Team' assignment for Diabetes 1 vs 2 vs 3) Diabetes After-Hours & Weekends: Diabetes Fellow [phone] or [phone] * Plan of Care - Radha Campos RN - 03/27/2024 9:04 AM CDT Per Rounds: Patient medically stable for discharge. ADD: pending accepting facility and insurance authorization Plan & referrals made/in place: Re[facility] out [facility]. Patient's Identified Problem/Goal Problem: Ensure acute medical needs are met and patient has a safe discharge plan. Goal: Secure a discharge plan that patient/family are agreeable with and ensure patient has continuum of care. Flour Tester will continue to follow and assist with discharge planning as needed * Consults, Subsequent - Viet Gary MD - 03/26/2024 2:49 PM CDT Endocrinology & Diabetes Brief Note Patient: Farzana Bran, 59 y.o. female (: 1965) Room: [id number] ( ) LOS: 17 Farzana Bran is [...] comorbidities: <7% Diabetes Provider: PCP Insurance: Payor: [facility] MEDIC[facility] / Plan: MEDICARE SOLUTIONS / Product Type: [facility] MED[facility]ARE / Home regimen: Lantus 10 units [...] juices, no regular soda - please have clinical educator meet with patient - please have nuclear physics teacher meet with patient- needs further education on [...] & Lipid Research Contact Info: New Consults: [phone]) General Endocrine (Non-Diabetes): [phone] (Check 'Treatment Team' assignment for Diabetes 1 vs 2 vs 3) Diabetes After-Hours & Weekends: Diabetes Fellow [phone] or [phone] * Plan of Care - Radha Campos RN - 03/26/2024 10:43 AM CDT Per Rounds: Patient medically stable for discharge ADD: pending accepting facility and insurance authorization Plan & referrals made/in place: Left voicemail with liaison Carmen of [facility] and [facility] ([phone]). Patient's Identified Problem/Goal Problem: Ensure acute medical needs are met and patient has a safe discharge plan. Goal: Secure a discharge plan that patient/family are agreeable with and ensure patient has continuum of care. Flour Tester will continue to follow and assist with discharge planning as needed UPDATE: Spoke to Carmen of [facility] and [facility]. Carmen stated referral is actively being reviewed. [...] for the Shift: ambulation, brace, BG monitoring Supervisor Home Economics Patient Centered Goal for Treatment: Mobility, Pain [...] Campos RN - 03/25/2024 9:38 AM CDT [facility] unable to accept patient due to patient care needs exceeds capacity. Re-faxed referral to patient's first choice [facility] to [phone]. UPDATE: Spoke to Alyx of [facility]. Confirmed referral has been received and will be reviewed today. * Consults, Subsequent - Ximena Diaz NP - 03/25/2024 7:38 AM CDT Endocrinology & Diabetes Brief Note Patient: Farzana Bran, 59 y.o. female (: 1965) Room: [id number] ( ) LOS: 16 Farzana Bran is [...] comorbidities: <7% Diabetes Provider: PCP Insurance: Payor: [facility] MEDIC[facility] / Plan: MEDICARE SOLUTIONS / Product [...] juices, no regular soda - please have clinical educator meet with patient - please have nuclear physics teacher meet with patient- needs further education on [...] & Lipid Research Contact Info: New Consults: [phone] (-[phone]) General Endocrine (Non-Diabetes): [phone] (Check 'Treatment Team' assignment for Diabetes 1 vs 2 vs 3) Diabetes After-Hours & Weekends: Diabetes Fellow [phone] or [phone] * Plan of Care - Maryuri Limon RN - 03/24/2024 5:15 PM CDT Goals: Clinical Goals for the Shift: OOB, monitor Glucose, monitor VS, encourage IS Supervisor Home Economics Patient Centered Goal for Treatment: Mobility, Pain [...] insurance authorization Plan & referrals made/in place: [facility] unable to accept due to patient care needs exceeds capacity Presented list of SNF rehabs. Patient chose following [facility] [place] [facility] and [facility] in [place]. Referrals sent through [facility]. Patient's Identified Problem/Goal Problem: Ensure acute medical needs are met and patient has a safe discharge plan. Goal: Secure a discharge plan that patient/family are agreeable with and ensure patient has continuum of care. Flour Tester will continue to follow and assist with discharge planning as needed * ECIN Note - Radha Campos RN - 03/24/2024 10:31 AM CDT Images from the original note were not included. Patient Information: OT Eval and Treat Last 72 Hours OT Evaluation Row Name 03/20/24 1120 03/20/24 0829 Session Type Treatment -NB -- OT Received [...] OT 07/14/19 - OT Treatment Row Name 03/20/24 1120 Precautions Cervical spine;Fall risk;Spinal/Back - Weight Bearing Restrictions Yes - LLE Weight Bearing WBAT with post-op shoe -NB Braces/Orthoses Other CTLSO donned upon OT arrival and was not removed - Precaution Comments Verbally reviewed cervical and spinal precautions with pt prior ot all ADLs andmobility. Pt verbalized and demonstrated understanding. - Pain Assessment 0-10 - Pain Score 10 - Worst possible pain - Pain Type Acute pain - Pain Location Arm - Pain Orientation Right - Pain Interventions Repositioned Pt reports receiving pain meds prior to OT arrival -NB Balance Yes - Static Sitting-Balance Support No upper extremity supported;Feet supported - Static Sitting-Sitting Surface Chair - Static Sitting-Level of Assistance Distant supervision - Static Sitting-Comment/# of Minutes Supervision for safety - Dynamic Sitting-Balance Support No upper extremity supported;Feet supported - Dynamic Sitting-Balance Forward lean;Reaching for objects;Reaching across midline LE dressing edge of chair - Dynamic Sitting-Sitting Surface Chair -NB Dynamic Sitting-Level of Assistance Close supervision - Dynamic Sitting-Comments Supervision for safety - Static Standing-Balance Support Bilateral upper extremity supported - Static Standing-Standing Surface Floor - Static Standing-Level of Assistance Minimum assistance - Static Standing-Comment/# of Minutes Min A for balance and safety - Dynamic Standing-Balance Support Unilateral upper extremity supported - Dynamic Standing-Balance Forward lean;Reaching for objects;Reaching across midline - Dynamic Standing-Standing Surface Floor -NB Dynamic Standing-Level of Assistance Moderate assistance - Dynamic Standing-Comments Mod A for balance and force production. - ADLS (WDL) X -NB Grooming: Where assessed Chair -NB Grooming: Level of assistance Maximum Assist Min A task, Unable to perform in standing - Grooming: Assistance with Increased time to complete;Balance;Safety;Reaching all areas of head/face - LE Dressing: Where assessed Chair - LE Dressing: Level of assistance Maximum Assist Max A task, mod A balance -NB LE Dressing: Assistance with Requires assistive device for steadying;Verbal cueing;Supervision/safety;Increased time to complete;Don/doff R sock;Don/doff L sock;Thread LLE into pants;Thread RLE into pants;Thread RLE into underwear;Thread LLE into underwear;Pull up over hips;Use of adaptive equipment ;Balance;Safety Difficulty utilizing sock aid 2/2 pedal edema. -NB LE Dressing: Equipment Utilized Surgical Appliances Salesperson;Sock aid;Dressing stick -NB Toileting: Where assessed Bedside [...] this the discharge summary -NB OT Recommendation Care Home Facility -NB Patient at high risk for [...] return to prior level of independence -NB OT Frequency during current admission 5-7x/wk -NB [...] By Initials Name Effective Dates NB Radha Talbot OT 07/14/19 - OT Notes Notes from 03/22/24 through 03/24/24 No notes of this type exist for this encounter. , PT Eval and Treat Last 72 Hours PT Evaluation Row Name 08/10/24 1146 03/19/24 0901 Chart Reviewed -- Yes [...] risk - Weight Bearing Restrictions -- No -SM Braces/Orthoses -- Cervical collar;TLSO CTLSO - Precaution Handout Issued -- Yes -SM Precaution Comments -- Educated on cervical/spinal precautions - Type of Home -- Mobile Home - Home Layout -- One level - Home Access -- Stairs to enter with rails - Entrance Stairs-Rails -- Both - Entrance Stairs-Number of Steps -- 5 - Home Mobility Equipment-Available -- 4-Wheeled walker - Home Mobility Equipment-Currently Using -- None - Level of [place] -- Independent with ADLs;Independent with ambulation;Independent with homemaking with ambulation - Lives With -- Alone - Receives Help From -- Friend(s) PT assistance available - Driving -- Yes - Fall within the last 6 months -- Yes - Fall within the last 6 months comment [...] spinal precautions and lack of ambulation -SM Balance -- Yes -SM Static Sitting-Balance Support -- Feet supported -SM Static Sitting-Sitting Surface -- Bed -SM Static Sitting-Level of Assistance -- Close supervision -SM Static Sitting-Comment/# of Minutes -- For safety -SM Static Standing-Balance Support -- Bilateral upper extremity supported ww -SM Static Standing-Standing Surface -- Floor -SM Static Standing-Level of Assistance -- Minimum assistance -SM Static Standing-Comment/# of Minutes -- min A for balance and safety -SM Bed Mobility -- Yes -SM Bed Mobility From 1 -- Supine -SM Bed Mobility Type 1 -- To -SM Bed Mobility to 1 -- Edge of bed - Level of Assistance 1 -- Moderate Assist -SM Bed Mobility Comments 1 -- Using log roll, mod A for trunk elevation -SM Bed Mobility From 2 -- Supine -SM Bed Mobility Type 2 -- To and from -SM Bed Mobility to 2 -- Rolling right;Rolling left - Level of Assistance 2 -- Minimum Assist -SM Bed Mobility Comments 2 -- min A for force production and maintaining precautions. -SM Transfer -- Yes -SM Transfer From 1 -- Sit -SM Transfer [...] -SM Technique 2 -- Stand and step - Transfer Device 2 -- Wheeled walker - Transfer Level of Assistance 2 -- Minimum Assist -SM Trials/Comments 2 -- min A for balance and safety -SM Ambulation -- No Deferred due to increased [...] due to mobility deficits and lack of organizational research consultant support. Pt would benefit from continued skilled therapy and SNF placement in order to help her improve her mobility so she can return home safely. - How much difficulty does the patient have: [...] table within reach - Prognosis -- Good - Problem List -- Gait deviations;Decreased strength;Decreased endurance;Impaired [...] the discharge summary - PT Recommendation/Plan -- Care Home Facility - Patient at high risk for [...] care - PT Evaluation Complete -- Yes -SM Start Time -- 900 -SM Stop Time -- 948 - Time Calculation (min) -- 48 min - User Ferro (r) = Recorded By, (t) = Taken By, (c) = Cosigned By Initials Name Effective Dates SM Antonio Warren, PT 01/30/24 - LM [...] Precautions Cervical spine;Spinal/Back;Fall risk - Cervical spine;Spinal/Back - Weight Bearing Restrictions -- No -SM Braces/Orthoses -- CTLSO - Cervical collar;TLSO - Precaution Handout Issued -- No -SM Precaution Comments Verbally reviewed precautions with patient. - Verbally reviewed spinal/cervical precautions prior to mobility - Activity Tolerance Activity Tolerance Comments kendell: fairly light -LM Kendell: medium -SM Pain Assessment Pain Assessment No/denies pain - 0-10 - Pain Score -- 7 -SM Pain Location -- Arm -SM Pain Orientation -- Right - Pain Interventions [...] Support Bilateral upper extremity supported;Feet supported -LM Feet supported;No upper extremity supported -SM Static Sitting-Sitting Surface Bed -LM Bed -SM Static Sitting-Level of Assistance Distant supervision -LM Close supervision -SM Static Sitting-Comment/# of Minutes safety -LM For safety -SM Static Standing Balance Static Standing-Balance Support Bilateral upper extremity supported with walker -LM Bilateral upperextremity supported -SM Static Standing-Standing Surface Floor -LM Floor -SM Static Standing-Level of Assistance Close supervision -LM Contact guard -SM Static Standing-Comment/# of Minutes for safety -LM CGA for balance/safety -SM Bed Mobility Bed Mobility -- Yes - Bed Mobility 1 Bed Mobility From 1 Supine -LM Edge of bed - Bed Mobility Type 1 To and from -LM To -SM Bed Mobility to 1 Rolling right;Rolling left -LM Supine -SM Level of Assistance 1 Minimum [...] Bed Mobility to 2 Edge of Bed - -- Level of Assistance 2 Minimum Assist;Minimal verbal cues - -- Bed Mobility Comments 2 with HOB flat; assist to elevate trunk and cues for technique - -- Transfers Transfer -- Yes - Transfer 1 Transfer From 1 Sit -LM Sit - Transfer Type 1 To and from -LM To and from -SM Transfer to 1 Stand -LM Stand - Technique 1 -- Sit to stand;Stand to sit -SM Transfer Device 1 Wheeled walker -LM Wheeled walker - Transfer Level of Assistance 1 Contact Guard Assist - Minimum Assist -SM Trials/Comments 1 2 reps; with UE support; CGA for safety. patient demonstrates decreased force production - min A for force production and balance. 4 reps total. -SM Transfers 2 Transfer From 2 Bed -LM -- Transfer Type 2 To -LM -- Transfer to 2 Chair with arms -LM -- Technique 2 Stand and step - -- Transfer Device 2 Wheeled walker - -- Transfer Level of Assistance 2 Minimum [...] -SM Barriers to Discharge -- Current Mobility Status;Decreased caregiver support -SM Plan Plan Continue with current plan;If this is the last note, consider this the discharge summary -LM Continue with current plan;If this is the last note, consider this the discharge summary -SM Recommendation/Plan PT Recommendation/Plan Care Home Facility - Care Home Facility - Patient at high risk for [...] - PT Frequency during current admission 5-7x/wk -LM 5-7x/wk - Treatment/Interventions during current admission -- Balance Training;Bed mobility;Endurance training;Functional activity;Functional transfer training;Gait training;Neuromuscular re-education;Stair tra ining;Strengthening;Therapeutic activity;Therapeutic exercise;Transfer training - Progress during current admission Slow progress, decreased activity tolerance - -- Time Calculation Start Time 1146 -LM 1413 - Stop Time 1216 -LM 1443 - Time Calculation (min) 30 min -LM 30 min - User Ferro (r) = Recorded By, (t) = Taken By, (c) = Cosigned By Initials Name Effective Dates Antonio Warren, PT 01/30/24 - LM Ruba Burton, PT 07/14/19 - PT Notes 03/22/2024 3:59 [...] Intake/Output 03/21/24 0700 - 03/22/24 0659 03/22/24 0700 - 03/23/24 0659 03/23/24 0700 - 03/24/24 0659 03/24/24 0700 - 03/25/24 0659 Total Total 0015-5268 9518-5958 6150-5138 Total 0597-3028 4300-9263 0402-9729 Total Intake (ml) -- -- -- -- [...] Vital Signs 03/23 0700 03/24 0659 03/24 0703/24 1031 Most Recent Temp (??C) 36.3 - 36.7 36.7 36.7 (98.1) 03/24 826 Pulse 88 - 107 95 95 03/24 08 Resp 16 - 17 16 16 03/24 08 SpO2 (%) 90 - 100 95 95 03/24 08 BP 122/61 - 135/66 118/60 118/60 03/24 0826 MAP (mmHg) 74 - 91 74 74 03/24 08 Default Flowsheet Data (most recent) Endurance Tests No documentation. Nursing Nutrition None Nursing Mobility Activity 03/24 08 Ambulate in room;Commode 03/24 0401 Resting in bed 03/23 2312 Resting in bed 03/23 2200 Sleeping 03/23 194 Resting in bed 03/23 1406 Ambulate in [...] of patient - no hands on 03/22 183 Moderate assist, patient does 50-74% 03/22 1500 [...] 0921 Brace (Comment) 03/22 1830 Brace (Comment);Walker 08/10 1500 Brace (Comment) 03/22 1230 Brace (Comment) [...] Heels/Feet 03/22 1830 Heels elevated off bed 03/22 1500 Heels elevated off bed 03/22 1230 Heels elevated off bed 03/22 1000 Heels elevated off bed 03/22 0856 Heels elevated off bed 03/22 0720 Heels elevated off bed Range of Motion 03/24 0830 Active;All extremities 03/23 1930 Active;All extremities 03/22 1945 Active;All extremities 03/22 0800 Active;All extremities 03/21 2000 Active;All extremities 03/21 1116 Active;All extremities Mechanical Compression Site 03/23 2000 Bilateral 03/22 2000 Bilateral 03/22 08 Bilateral 03/21 2000 Bilateral Mechanical Compression Type 03/23 2000 IPC/SCD 03/22 2000 IPC/SCD 03/22 800 IPC/SCD 03/21 2000 IPC/SCD Mechanical Compression Status 03/23 2000 On 03/22 2000 On 03/22 08 On 03/21 2000 Refused * Consults, Ximena Alvarez NP - 03/24/2024 10:10 AM CDT Endocrinology & Diabetes Progress Note Patient: Farzana Bran, 59 y.o. female (: 1965) Room: [id number] ( ) LOS: 15 Farzana Bran is [...] Labs Lab Units 03/24/24 0829 03/23/24 2117 03/23/24 1946 03/23/24 [...] , PTH , 25HYDROVITD , CPEPTIDE , [id number] , IA2AB Lab Results Component Value Date HGBA1C 8.9 (H) 03/11/2024 Assessment & Plan # Type 2 Diabetes Mellitus, Uncontrolled, complicated by Peripheral Neuropathy Current HbA1c and reliability: 8.9%, unreliable 2/2 anemia HbA1c goal based on comorbidities: <7% Diabetes Provider: PCP Insurance: Payor: [facility] MEDICARE / Plan: MEDICARE SOLUTIONS / Product [...] juices, no regular soda - please have clinical educator meet with patient - When NPO, [...] & Lipid Research Contact Info: New Consults: [phone]) General Endocrine (Non-Diabetes): [phone] (Check 'Treatment Team' assignment for Diabetes 1 vs 2 vs 3) Diabetes After-Hours & Weekends: Diabetes Fellow [phone] or [phone] * Plan of Care - Dilcia Torres RN - 03/23/2024 9:59 PM CDT Goals: Clinical Goals for the Shift: OOB, monitor Glucose, monitor VS, encourage IS Group Home Patient Centered Goal for Treatment: Mobility, Pain management Summary: Dilcia Torres RN * Consults, Erlinda - Shannon Mancilla MD - 03/23/2024 10:49 AM CDT Images from the original note were not included. Endocrinology & Diabetes Brief Note Patient: Farzana Bran, 59 y.o. female (: 1965) Room: [id number] ( ) LOS: 14 Interval Events & [...] & Lipid Research Contact Info: New Consults: [phone]) General Endocrine (Non-Diabetes): [phone] (Check 'Treatment Team' assignment for Diabetes 1 vs 2 vs 3) Diabetes After-Hours & Weekends: Diabetes Fellow [phone] or [phone] * Plan of Care - Chichi Mitchell - 03/22/2024 5:55 PM CDT Goals: Clinical Goals for the Shift: VSS, ambulate, pain management, wound care, monitor BS[facility] Group Home Patient Centered Goal for Treatment: Mobility, Pain [...] breakdown will improve Outcome: Progressing Flowsheets (Taken 03/22/2024999) Understanding of ways to prevent future skin breakdown will improve: Discuss treatments to protect skin integrity Discuss treatment plan for related conditions Goal: Nutritional status will improve Outcome: Progressing Flowsheets (Taken 03/22/2024999) Nutritional status will improve: Assess nutritional status [...] related to Diabetes will improve: Collaborate with sleever for diabetes evaluation and/or teaching Instruct on [...] level of function Outcome: Progressing Flowsheets (Taken 03/22/2024999) Return mobility to safest level of function: [...] Bran, 59 y.o. female (: 1965) Room: [id number] ( ) LOS: 13 Farzana Bran is [...] 2044 03/21/24 1701 03/21/24 1133 03/21/24 0754 03/20/24 2002 03/20/24 1648 03/20/24 1211 03/20/24 0721 03/19/24 2312 [...] comorbidities: <7% Diabetes Provider: PCP Insurance: Payor: [facility] / Plan: MEDICARE SOLUTIONS / Product Type: [facility] MEDIC[facility] / Home regimen: Lantus 10 units [...] & Lipid Research Contact Info: New Consults: [phone]) General Endocrine (Non-Diabetes): [phone] (Check 'Treatment Team' assignment for Diabetes 1 vs 2 vs 3) Diabetes After-Hours & Weekends: Diabetes Fellow [phone] or [phone] Cosigned by Shannon Mancilla MD at 03/22/2024 8:12 PM CDT * Plan of Care - Radha Campos RN - 03/21/2024 1:07 PM CDT Spoke to Chanell of admissions for [facility] ([phone] option 2). Chanell stated referral is currently being reviewed. Will follow. * Consults, Subsequent - Karuna Hurst NP - 03/21/2024 12:39 PM CDT Endocrinology & Diabetes Progress Note Patient: Farzana Bran, 59 y.o. female (: 1965) Room: [place] [address] ( ) LOS: 12 Farzana Bran is [...] Labs Lab Units 03/21/24 1133 03/21/24 0754 03/20/24 2002 03/20/24 1648 03/20/24 1211 03/20/24 0721 03/19/24 2312 [...] , PTH , 25HYDROVITD , CPEPTIDE , [id number] , IA2AB Lab Results Component Value Date HGBA1C 8.9 (H) 03/11/2024 Assessment & Plan # Type 2 Diabetes Mellitus, Uncontrolled, complicated by Peripheral Neuropathy Current HbA1c and reliability: 8.9%, unreliable 2/2 anemia HbA1c goal based on comorbidities: <7% Diabetes Provider: PCP Insurance: Payor: [facility] MEDICARE / Plan: MEDICARE SOLUTIONS / Product Type: [facility] MEDICARE / Home regimen: Lantus 10 units [...] juices, no regular soda - please have clinical educator meet with patient - When NPO, [...] & Lipid Research Contact Info: New Consults: [phone] (-[phone]) General Endocrine (Non-Diabetes): [phone] (Check 'Treatment Team' assignment for Diabetes 1 vs 2 vs 3) Diabetes After-Hours & Weekends: Diabetes Fellow [phone] or [phone] * Plan of Care - Radha Campos RN - 03/21/2024 9:36 AM CDT Per Rounds: Patient medically stable for discharge ADD: pending accepting facility and insurance authorizatoin Plan & referrals made/in place: Spoke to Chanell of admissions for [facility] ([phone]). Chanell requested additional documentation be faxed to her at [phone]. This was completed. Patient's Identified Problem/Goal Problem: Ensure acute medical needs are met and patient has a safe discharge plan. Goal: Secure a discharge plan that patient/family are agreeable with and ensure patient has continuum of care. Flour Tester will continue to follow and assist with discharge planning as needed * Plan of Care - Elizabeth Bell RN - 03/21/2024 3:46 AM CDT Goals: Clinical Goals for the Shift: Vital signs monitoring, pain control, safe in/out of bed Supervisor Home Economics Patient Centered Goal for Treatment: Mobility, Pain [...] regimen will improve Outcome: Progressing Flowsheets (Taken 03/21/2024299) Satisfaction with pain management medication regimen will improve: Assess satisfaction with pain management regimen Problem: Sensory Goal: Ability to identify factors that increase pain levels will improve while working to decrease the patient's pain levels Outcome: Progressing Problem: Coping Goal: Ability to cope will improve Outcome: Progressing Flowsheets (Taken 03/21/2024299) Ability to cope will Improve: Encourage vebalization [...] level of function Outcome: Progressing Flowsheets (Taken 03/21/2024299) Return mobility to safest level of function: [...] infection during hospitalization Outcome: Progressing Flowsheets (Taken 03/21/2024299) Absence of infection during hospitalization: Monitor lab/diagnostic results Goal: Absence of fever/infection during anticipated neutropenic period Outcome: Progressing Problem: Metabolic/Fluid and Electrolytes Goal: Glucose maintained within prescribed range Outcome: Progressing Flowsheets (Taken 03/21/2024299) Glucose maintained within prescribed range: Assess for [...] Bran, 59 y.o. female (: 1965) Room: [place] [address] ( ) LOS: 11 Farzana Bran is [...] , PTH , 25HYDROVITD , CPEPTIDE , [id number] , IA2AB Lab Results Component Value Date HGBA1C 8.9 (H) 03/11/2024 Assessment & Plan # Type 2 Diabetes Mellitus, Uncontrolled, complicated by Peripheral Neuropathy Current HbA1c and reliability: 8.9%, unreliable 2/2 anemia HbA1c goal based on comorbidities: <7% Diabetes Provider: PCP Insurance: Payor: [facility] / Plan: MEDICARE SOLUTIONS / Product [...] juices, no regular soda - please have clinical educator meet with patient - When NPO, [...] & Lipid Research Contact Info: New Consults: [phone]) General Endocrine (Non-Diabetes): [phone] (Check 'Treatment Team' assignment for Diabetes 1 vs 2 vs 3) Diabetes After-Hours & Weekends: Diabetes Fellow [phone] or [phone] * ECIN Note - Radha Campos RN [...] 03/19/24199903/19/24 1600 03/19/24 1200 03/19/24 0800 03/18/241999 Wound Status Healing Healing some scabbing Healing some scabbing Healing some scabbing Healing Site Assessment Clean;Dry Clean;Dry Clean;Dry Clean;Dry HOLLY Natalie-wound Assessment Dry;Intact Dry;Intact Dry;Intact Dry;Intact HOLLY Margins Defined edges Defined edges Defined edges Defined edges HOLLY Closure -- -- -- -- Unable to assess Drainage Amount Scant Small Small Small HOLYL Drainage Description Serosanguineous Sanguineous Sanguineous Sanguineous HOLLY Drainage Odor No odor No odor No odor No odor No odor Dressing Status Clean/Dry/Intact Changed Changed Changed Clean/Dry/Intact Dressing Foam;Gauze rolled Foam;Gauze rolled vashe, polymem Foam;Gauze rolled vashe, polymem Foam;Gauze rolled vashe, polymem Foam Interventions -- -- -- Cleansed -- Row Name 03/18/24 170 Wound Status Healing Site Assessment Clean;Dry;Intact Natalie-wound [...] damage) Location Orientation: Anterior;Left Assessments Row Name 03/19/24 2000 03/19/24 1600 03/19/24 1200 03/19/24 0800 03/18/241999 Wound Status Evolving Evolving Evolving Evolving Healing [...] Description (Comments): redness, tender Assessments Row Name 03/19/24199903/19/24 1600 03/19/24 1200 03/19/2479903/18/241999 Wound Status Evolving Evolving Evolving -- -- Site Assessment Red;[place] Red;[place] Red;[place] -- -- Natalie-wound Assessment Dry;Intact Dry;Intact Dry;Intact -- -- Closure Open to air Open to air Open to air -- -- Drainage Amount None None None -- -- Dressing Status Open to Air Open to Air Open to Air -- -- Dressing Moisture barrier Moisture barrier Moisture barrier -- -- Interventions Cleansed;Topical barrier cream -- Cleansed;Topical barrier cream -- -- Row Name 03/18/241699 Wound Status -- Site Assessment -- Natalie-wound Assessment -- Closure -- Drainage Amount -- Dressing Status -- Dressing -- Interventions -- Surgical Site 03/13/24 Back Date First Assessed 03/13/24 Site Back Time First Assessed 2138 Days 6 Assessments Row Name 03/19/24199903/19/24159903/19/24 1200 03/19/2479903/18/241999 Site Assessment HOLLY HOLLY HOLLY HOLLY HOLLY [...] Dressing;Transparent film [place] Dressing Row Name 03/18/24 170 Site Assessment -- Natalie-wound Assessment -- Closure [...] Using -- None -EL -- Level of [place] -- Independent with ADLs;Independent functional transfers;Independent with ambulation -EL -- Lives With -- Alone -EL -- Receives Help From -- Friend(s) parts counter salesperson assist available -EL -- ADL Assistance -- [...] -- 18 -EL -- Score Evaluation-Blind -- 18-22 Normal -EL -- Balance Tests -- Yes [...] = Cosigned By Initials Name Effective Dates MANDO Radha Talbot, OT 07/14/19 - Karuna Hernandez, OT 03/09/23 - OT Treatment No documentation. OT Notes Notes from 03/18/24 through 03/20/24 No notes of this type exist for this encounter. , PT Eval and Treat Last 72 Hours PT Evaluation Row Name 03/19/24 0901 03/14/24 1310 03/13/24 0959 Chart Reviewed Yes - -- -- Session Type Evaluation -SM -- -- Safe Environment Arm band checked;Patient found in supine;Session completed bedside;Gait belt not utilized, see comment - -- -- Subjective Agreeable to Therapy - -- -- PT Missed Visit Reason -- MD/RN Hold;Bedrest Bed rest pending arrival of bracing - MD/RN Hold;Procedure/testing/appointment OR -JT Additional Pertinent History L great tone bone spur s/p resection (01/14/24) c/b osteomyelitis s/p I&D (01/23/24); liver disease; DM2 -SM -- -- Family/Caregiver Present No -SM -- -- Physical Therapy-Patient Goal Return home - -- -- Precautions Cervical spine;Spinal/Back;Fall risk - -- -- Weight Bearing Restrictions No -SM -- -- Braces/Orthoses Cervical collar;TLSO CTLSO - -- -- Precaution Handout Issued Yes - -- -- Precaution Comments Educated on cervical/spinal precautions - -- -- Type of Home Mobile Home -SM -- -- Home Layout One level -SM -- -- Home Access Stairs to enter with rails -SM -- -- Entrance Stairs-Rails Both -SM -- -- Entrance Stairs-Number of Steps 5 - -- -- Home Mobility Equipment-Available 4-Wheeled walker - -- -- Home Mobility Equipment-Currently Using None -SM -- -- Level of [place] Independent with ADLs;Independent with ambulation;Independent with homemakingwith ambulation -SM -- -- Lives With Alone -SM -- -- Receives Help From Friend(s) PT assistance available - -- -- Driving Yes -SM -- -- Fall within the last 6 months Yes -SM -- -- Fall within the last 6 months comment One trip on wet grass - -- -- Pain Assessment 0-10 - -- -- Pain Score 8 -SM -- -- Pain Type Surgical pain -SM -- -- Pain Location Shoulder -SM -- -- Pain Orientation Right -SM -- -- Pain Interventions Repositioned;RN Notified;Rest;Cold pack -SM -- -- Arousal/Alertness Alert;Appropriate responses to stimuli -SM -- -- Orientation Oriented X4 (person, place, time, situation) -SM -- -- Following Commands Follows all commands and directions without difficulty - -- -- Compliance/Behavior Easy to engage - -- -- Light Touch WFL - -- -- Sensation Comments Bilateral LE skin integrity intact besides LLE which was covered with bandage -SM -- -- Balance Tests No Not performed due to spinal precautions and lack of ambulation - -- -- Balance Yes - -- -- Static Sitting-Balance Support Feet supported - -- -- Static Sitting-Sitting Surface Bed -SM -- -- Static Sitting-Level of Assistance Close supervision - -- -- Static Sitting-Comment/# of Minutes For safety - -- -- Static Standing-Balance Support Bilateral upper extremity supported ww -SM -- -- Static Standing-Standing Surface Floor - -- -- Static Standing-Level of Assistance Minimum assistance - -- -- Static Standing-Comment/# of Minutes min A for balance and safety - -- -- Bed Mobility Yes - -- -- Bed Mobility From 1 Supine -SM -- -- Bed Mobility Type 1 To - -- -- Bed Mobility to 1 Edge of bed -SM -- -- Level of Assistance 1 Moderate Assist - -- -- Bed Mobility Comments 1 Using log roll, mod A for trunk elevation - -- -- Bed Mobility From 2 Supine -SM -- -- Bed Mobility Type 2 To and from - -- -- Bed Mobility to 2 Rolling right;Rolling left - -- -- Level of Assistance 2 Minimum Assist - -- -- Bed Mobility Comments 2 min [...] point due to mobilitydeficits and lack of organizational research consultant support. Pt would benefit from continued skilled [...] in chair;Call light within reach;Overbed tablewithin reach - -- -- Prognosis Good - -- -- Problem List Gait deviations;Decreased strength;Decreased endurance;Impaired balance;Decreased mobility;Pain;Orthopedic restrictions - -- -- Problem List Comments PT Diagnosis: [...] full participation in home and community mobility - -- -- Barriers to Discharge Current Mobility Status;Decreased caregiver support - -- -- Plan Plan of care initiated;If this is the last note, consider this the discharge summary - -- -- PT Recommendation/Plan Care Home Facility - -- -- Patient at high risk for Falls;Readmission;Injury due to reduced functional status;Injury due to balance deficits;Injury at home as patient has not returned to prior level of function - -- -- Recommend SNF due to Risk [...] Yes - -- -- Start Time 900 - -- -- Stop Time 948 -- -- [...] Recent Administrations acetaminophen (TYLENOL) tablet 1,000 mg [[id number]] Ordering Provider: Rosalio Calixto MD Status: Completed (Past End Date/Time) Ordered On: 03/08/241836 Starts/Ends: 03/08/241837 - 03/08/241855 Ordered Dose (Remaining/Total): 1,000 mg (0/1) Route: oral Frequency: Once Ordered Rate/Order Duration: -- / -- Timestamps Action Dose Route Other Information 03/08/241855 Given 1,000 mg oral Performed by: Brionna Pitt RN Scanned Package: 5481-5494-59, 5854-2910-25 droPERidol (INAPSINE) injection 1.25 mg [[id number]] Ordering Provider: Rosalio Calixto MD Status: Completed [...] Performed by: Brionna Pitt RN Scanned Package: 7894-3229-71 fentaNYL (SUBLIMAZE) preservative free injection 50 mcg [[id number]] Ordering Provider: Rosalio Calixto MD Status: Completed [...] Performed by: Brionna Pitt RN Scanned Package: 3119-3114-43 ioversoL (OPTIRAY 350) syringe 100 mL [[id number]] Ordering Provider: Rosalio Calixto MD Status: Completed [...] RT ioversoL (OPTIRAY 350) syringe 125 mL [[id number]] Ordering Provider: Rosalio Calixto MD Status: Completed [...] Hill RT gadoterate meglumine injection 14 mL [[id number]] Ordering Provider: Rosalio Calixto MD Status: Completed [...] (HumaLOG, ADMELOG) 100 unit/mL injection 4 Units [[id number]] Ordering Provider: Ho An MD Status: Completed (Past End Date/Time) Ordered On: 03/09/24332 Starts/Ends: 03/09/24333 - 03/09/24342 Ordered Dose (Remaining/Total): 4 Units (0/1) Route: subcutaneous Frequency: Once Ordered Rate/Order Duration: -- / -- Timestamps Action Dose Route / Site Other Information 03/09/24342 Given 4 Units subcutaneous Left Lower Abdomen Performed by: Brionna Pitt RN Scanned Package: 2887-5160-50 droPERidol (INAPSINE) injection 1.25 mg [[id number]] Ordering Provider: Ho An MD Status: Completed [...] Performed by: Odilia Vega RN Scanned Package: 9946-1829-80 sodium chloride 0.9% flush 0.5-20 mL [[id number]] Ordering Provider: Ericka Estes MD Status: Verified Ordered On: 03/09/24608 Start: 03/09/24644 Ordered Dose (Remaining/Total): 0.5-20 mL (--/--) Route: intra-catheter Frequency: Every 8 hours scheduled Ordered Rate/Order Duration: -- / -- Admin Instructions: Flush volume based on line type and size. Timestamps Action Dose Route Other Information 03/19/24 2332 Given 20 mL intra-catheter Performed by: Rosana Mahoney RN sodium chloride 0.9% flush 0.5-20 mL [[id number]] Ordering Provider: Ericka Estes MD Status: Verified [...] Performed by: Janett Ledezma RN Scanned Package: [id number] Carrier Fluids for Secondary Infusion - 0.9% Sodium Chloride [[id number]] Ordering Provider: Ericka Estes MD Status: Dispensed [...] (1 %) preservative free injection 200 mg [[id number]] Ordering Provider: Varun Song MD Status: Completed (Past End Date/Time) Ordered On: 03/09/24 1240 Starts/Ends: 03/09/24 1315 - 03/09/24 1312 Ordered Dose (Remaining/Total): 20 mL (0/1) Route: infiltration Frequency: Once Ordered Rate/Order Duration: -- / -- Timestamps Action Dose Route Other Information 03/09/24 1312 Given 200 mg infiltration Performed by: Keyonna Hernandez RN HYDROmorphone (DILAUDID) injection 0.5 mg [[id number]] Ordering Provider: Varun Song MD Status: Completed [...] halo placement droPERidol (INAPSINE) injection 1.25 mg [[id number]] Ordering Provider: Varun Song MD Status: Dispensed (Past End Date/Time) Ordered On: 03/09/24 1336 Starts/Ends: 03/09/24 1415 - 03/10/24 1415 Ordered Dose (Remaining/Total): 1.25 mg (1/1) Route: intravenous Frequency: Once Ordered Rate/Order Duration: -- / -- Admin Instructions: If administered IV push, administer over 5 min for adults. (No admins scheduled or recorded for this medication) HYDROmorphone (DILAUDID) injection 0.5 mg [[id number]] Ordering Provider: Varun Song MD Status: Completed [...] halo placement methocarbamoL (ROBAXIN) tablet 500 mg [[id number]] Ordering Provider: Bernardino Gleason MD Status: Completed (Past End Date/Time) Ordered On: 03/09/242042 Starts/Ends: 03/09/242114 - 03/09/242122 Ordered Dose (Remaining/Total): 500 mg (0/1) Route: oral Frequency: Once Ordered Rate/Order Duration: -- / -- Timestamps Action Dose Route Other Information 03/09/242122 Given 500 mg oral Performed by: Haley Varner RN Scanned Package: 04114-068-38 magnesium sulfate 2 g/50 mL in water (premix) 2 g [[id number]] Ordering Provider: Bernardino Gleason MD Status: Completed (Past End Date/Time) Ordered On: 03/09/242134 Starts/Ends: 03/09/242214 - 03/09/242326 Ordered Dose (Remaining/Total): 2 g (0/1) Route: intravenous Frequency: Once Ordered Rate/Order Duration: -- / 60 Minutes Timestamps Action Dose / Duration Route Other Information 03/09/242226 New Bag 2 g 60 Minutes intravenous Performed by: Haley Varner RN Scanned Package: 50847-521-65 potassium chloride (KLOR-CON) packet 20 mEq [[id number]] Ordering Provider: Bernardino Gleason MD Status: Completed (Past End Date/Time) Ordered On: 03/09/242134 Starts/Ends: 03/09/24 2215 - 03/10/24 0514 Ordered Dose (Remaining/Total): 20 [...] Performed by: Haley Varner RN Scanned Package: [address]-0 HYDROmorphone (DILAUDID) injection 0.5 mg [[id number]] Ordering Provider: Bernardino Gleason MD Status: Completed (Past End Date/Time) Ordered On: 03/10/24 0507 Starts/Ends: 03/10/24 0545 - 03/10/24 0516 Ordered Dose (Remaining/Total): 0.5 mg (0/1) Route: intravenous Frequency: Once Ordered Rate/Order Duration: -- / 2 Minutes Timestamps Action Dose / Duration Route Other Information 03/10/24 0514 Given 0.5 mg 2 Minutes intravenous Performed by: Haley Vraner RN Scanned Package: 89066-792-07 magnesium sulfate 2 g/50 mL in water (premix) 2 g [[id number]] Ordering Provider: Yunier Leach MD Status: Completed [...] Performed by: Darius Ghosh RN Scanned Package: 26025-344-03 potassium chloride (KLOR-CON) packet 40 mEq [[id number]] Ordering Provider: Yunier Leach MD Status: Completed (Past End Date/Time) Ordered On: 03/10/24 1430 Starts/Ends: 03/10/241744 - 03/10/242042 Ordered Dose (Remaining/Total): [...] Performed by: Janett Ledezma RN Scanned Package: [address]-0, [address]-2 sodium chloride 0.9% bolus 1,000 mL [[id number]] Ordering Provider: Eloise Knapp MD Status: Completed (Past End Date/Time) Ordered On: 03/11/24 1045 Starts/Ends: 03/11/24 1130 - 03/11/24 113 Ordered Dose (Remaining/Total): 1,000 mL (0/1) Route: intravenous Frequency: Once Ordered Rate/Order Duration: -- / -- Line Med Link Info Comment Peripheral IV 03/09/24 20 G Left Antecubital 03/11/24 1139 by Soco Schwarz RN-- Timestamps Action Dose Route Other Information 03/11/24 1139 New Bag 1,000 mL intravenous Performed by: Soco Schwarz RN Scanned Package: 2128-4310-87 magnesium sulfate 2 g/50 mL in water (premix) 2 g [[id number]] Ordering Provider: Jane Hoover MD Status: Completed (Past End Date/Time) Ordered On: 03/12/24 0132 Starts/Ends: 03/12/24 0215 - 03/12/24 0341 Ordered Dose (Remaining/Total): 2 g (0/1) Route: intravenous Frequency: Once Ordered Rate/Order Duration: -- / 60 Minutes Line Med Link Info Comment Peripheral IV 03/08/24 20 G Distal;Left;Posterior Forearm 03/12/24240 by Janett Ledezma RN -- Timestamps Action Dose / Duration Route Other Information 03/12/24240 New Bag 2 g 60 Minutes intravenous Performed by: Janett Ledezma RN Scanned Package: 33951-136-27 senna-docusate (PERICOLACE) 8.6-50 mg per tablet 1 tablet [[id number]] Ordering Provider: Ericka Estes MD Status: Dispensed Ordered On: 03/12/24953 Start: 03/12/242099 Ordered Dose (Remaining/Total): 1 tablet (--/--) Route: oral Frequency: 2 times daily Ordered Rate/Order Duration: -- / -- Timestamps Action Dose Route Other Information 03/20/24 0821 Given 1 tablet oral Performed by: Maryuri Limon RN Scanned Package: 6019-0675-27, 4054-3261-73 lidocaine (PF) (XYLOCAINE) 10 mg/mL (1 %) preservative free injection 10-20 mg [[id number]] Ordering Provider: Jane Hoover MD Status: Completed [...] PICC sodium chloride 0.9% flush 5-10 mL [[id number]] Ordering Provider: Ericka Estes MD Status: Verified Ordered On: 03/12/241831 Start: 03/12/242099 Ordered Dose (Remaining/Total): 5-10 mL (--/--) Route: intra-catheter Frequency: Every 12 hours scheduled Ordered Rate/Order Duration: -- / -- Admin Instructions: Flush volume based on line type, size, and protocol. Timestamps Action Dose Route Other Information 03/19/24 233 Given 10 mL intra-catheter Performed by: Rosana Mahoney RN sodium chloride 0.9% flush 5-20 mL [[id number]] Ordering Provider: Ericka Estes MD Status: Verified Ordered On: 03/12/241831 Start: 03/12/241827 Ordered Dose (Remaining/Total): 5-20 mL (--/--) Route: intra-catheter Frequency: As needed Ordered Rate/Order Duration: -- / -- Admin Instructions: Flush volume based on line type, size, and protocol. (No admins scheduled or recorded for this medication) sodium chloride 0.9% flush 5-10 mL [[id number]] Ordering Provider: Ericka Estes MD Status: Verified Ordered On: 03/12/241831 Start: 03/12/24 2100 Ordered Dose (Remaining/Total): 5-10 mL (--/--) Route: intra-catheter Frequency: Every 12 hours scheduled Ordered Rate/Order Duration: -- / -- Admin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 Final Result Performing Organization Address [facility] Co de Phone Number AJIT [facility] [place] [address] * POCT glucose (03/27/2024 4:14 PM CDT) Glucose, POC 173 70 - 199 mg/dL Blood 03/27/2024 4:14 PM CDT 03/27/2024 4:14 PM CDT Chadd Toledo DO LAB POCT ORDERABLES - DEVICE Final Result Performing Organization Address [facility] de Phone Number [facility] [place] [address] * POCT glucose (03/27/2024 12:21 PM CDT) Glucose, POC 106 70 - 199 mg/dL Blood 03/27/2024 12:2 1 PM CDT 03/27/2024 12:21 PM CDT Chadd Toledo DO LAB POCT ORDERABLES - DEVICE Final Result Performing Organization Address [facility] de Phone Number AJIT [facility] [place] [address] * (ABNORMAL) POCT glucose (03/27/2024 7:48 AM CDT) Glucose, POC 229(H) 70 - 199 mg/dL Blood 03/27/2024 7:48 AM CDT 03/27/2024 7:48 AM CDT Chadd Toledo DO LAB POCT ORDERABLES - DEVICE Final Result Performing Organization Address [facility] [place] [address] * (ABNORMAL) POCT glucose (03/26/2024 8:55 PM CDT) Glucose, POC 211(H) 70 - 199 mg/dL Blood 03/26/2024 8:55 PM CDT 03/26/2024 8:55 PM CDT Chadd Elias Tre DO LAB POCT ORDERABLES - DEVICE Final Result Performing Organization Address [facility] [place] [address] * POCT glucose (03/26/2024 5:31 PM CDT) [facility] Signature Glucose, POC 138 70 - 199 mg/dL Blood 03/26/2024 5:31 PM CDT 03/26/2024 5:31 PM CDT Chadd Toledo DO LAB POCT ORDERABLES - DEVICE Final Result Performing Organization Address [facility] [place] [address] * POCT glucose (03/26/2024 11:43 AM CDT) Glucose, POC 186 70 - 199 mg/dL Blood 03/26/2024 11:4 3 AM CDT 03/26/2024 11:43 AM CDT Chadd Toledo DO LAB POCT ORDERABLES - DEVICE Final Result Performing Organization Address City/[facility] [place] [address] * POCT glucose (03/26/2024 8:00 AM CDT) Glucose, POC 183 70 - 199 mg/dL Blood 03/26/2024 8:00 AM CDT 03/26/2024 8:00 AM CDT Chaddtorres Toledo DO LAB POCT ORDERABLES - DEVICE Final Result Performing Organization Address [facility] de Phone Number [facility] [place] [address] * (ABNORMAL) POCT glucose (03/25/2024 7:53 PM CDT) Glucose, POC 206(H) 70 - 199 mg/dL Blood 03/25/2024 7:53 PM CDT 03/25/2024 7:53 PM CDT Chadd Toledo DO LAB POCT ORDERABLES - DEVICE Final Result Performing Organization Address [facility] de Phone Number [facility] [place] [address] * POCT glucose (03/25/2024 4:53 PM CDT) Glucose, POC 143 70 - 199 mg/dL Blood 03/25/2024 4:53 PM CDT 03/25/2024 4:53 PM CDT Chadd Elias Tre DO LAB POCT ORDERABLES - DEVICE Final Result Performing Organization Address [facility] de Phone Number [facility] [place] [address] * POCT glucose (03/25/2024 11:50 AM CDT) Glucose, POC 178 70 - 199 mg/dL Blood 03/25/2024 11:5 0 AM CDT 03/25/2024 11:50 AM CDT Chaddtorres Griffin Efetorres DO LAB POCT ORDERABLES - DEVICE Final Result Performing Organization Address [facility] Co de Phone Number [facility] [place] [address] * (ABNORMAL) POCT glucose (03/25/2024 7:54 AM CDT) Glucose, POC 269(H) 70 - 199 mg/dL Blood 03/25/2024 7:54 AM CDT 03/25/2024 7:54 AM CDT Chadd Toledo DO LAB POCT ORDERABLES - DEVICE Final Result Performing Organization Address [facility] de Phone Number AJIT [facility] [place] [address] * (ABNORMAL) POCT glucose (03/24/2024 8:53 PM CDT) Glucose, POC 304(H) 70 - 199 mg/dL Blood 03/24/2024 8:53 PM CDT 03/24/2024 8:53 PM CDT Chaddtorres Griffin Efetorres DO LAB POCT ORDERABLES - DEVICE Final Result Performing Organization Address [facility] Co de Phone Number AJIT [facility] [place] [address] * (ABNORMAL) POCT glucose (03/24/2024 5:03 PM CDT) Glucose, POC 249(H) 70 - 199 mg/dL Blood 03/24/2024 5:03 PM CDT 03/24/2024 5:03 PM CDT Chaddtorres Griffin Efetorres DO LAB POCT ORDERABLES - DEVICE Final Result Performing Organization Address [facility] Hospital/[facility] Co de Phone Number AJIT [facility] [place] [address] * (ABNORMAL) POCT glucose (03/24/2024 11:52 AM CDT) Glucose, POC 218(H) 70 - 199 mg/dL Blood 03/24/2024 11:5 2 AM CDT 03/24/2024 11:52 AM CDT Chadd Toledo DO LAB POCT ORDERABLES - [place] [address] * (ABNORMAL) POCT glucose (03/24/2024 8:29 AM CDT) Glucose, POC 251(H) 70 - 199 mg/dL Blood 03/24/2024 8:29 AM CDT 03/24/2024 8:29 AM CDT Chadd Toledo DO LAB POCT ORDERABLES - DEVICE Final Result Performing Organization Address City/[facility]/[place] [address] * (ABNORMAL) POCT glucose (03/23/2024 9:17 PM CDT) Glucose, POC 203(H) 70 - 199 mg/dL Blood 03/23/2024 9:17 PM CDT 03/23/2024 9:17 PM CDT Chadd Toledo DO LAB POCT ORDERABLES - DEVICE Final Result Performing Organization Address City/[facility]/ZIP Co de Phone Number AJIT [facility] [place] [address] * (ABNORMAL) POCT glucose (03/23/2024 7:46 PM CDT) Glucose, POC 215(H) 70 - 199 mg/dL Blood 03/23/2024 7:46 PM CDT 03/23/2024 7:46 PM CDT Chdad Toledo DO LAB POCT ORDERABLES - DEVICE Final Result Performing Organization Address [facility] Co de Phone Number [facility] [place] [address] * (ABNORMAL) POCT glucose (03/23/2024 4:51 PM CDT) Glucose, POC 245(H) 70 - 199 mg/dL Blood 03/23/2024 4:51 PM CDT 03/23/2024 4:51 PM CDT Chaddtorres Toledo DO LAB POCT ORDERABLES - DEVICE Final Result Performing Organization Address [facility] Co de Phone Number [facility] [place] [address] * (ABNORMAL) POCT glucose (03/23/2024 11:00 AM CDT) Glucose, POC 232(H) 70 - 199 mg/dL Blood 03/23/2024 11:0 0 AM CDT 03/23/2024 11:00 AM CDT Chadd Toledo DO LAB POCT ORDERABLES - DEVICE Final Result Performing Organization Address [facility] de Phone Number [facility] [place] [address] * (ABNORMAL) POCT glucose (03/23/2024 8:24 AM CDT) Glucose, POC 297(H) 70 - 199 mg/dL Blood 03/23/2024 8:2 4 AM CDT 03/23/2024 8:24 AM CDT Chaddtorres Griffin Efetorres DO LAB POCT ORDERABLES - DEVICE Final Result Performing Organization Address [facility] de Phone [facility] [place] [address] * (ABNORMAL) POCT glucose (03/22/2024 7:48 PM CDT) Glucose, POC 290(H) 70 - 199 mg/dL Blood 03/22/2024 7:48 PM CDT 03/22/2024 7:48 PM CDT Chadd Griffin Efetorres LAB POCT ORDERABLES - DEVICE Final Result Performing Organization Address [facility] de Phone Number [facility] [place] [address] * (ABNORMAL) POCT glucose (03/22/2024 4:50 PM CDT) Glucose, POC 248(H) 70 - 199 mg/dL Blood 03/22/2024 4:50 PM CDT 03/22/2024 4:50 PM CDT Result [facility] Chadd Elias Tre CARR LAB POCT ORDERABLES - DEVICE Final Result Performing Organization Address [facility] de Phone Number [facility] [place] [address] * (ABNORMAL) POCT glucose (03/22/2024 12:10 PM CDT) Glucose, POC 204(H) 70 - 199 mg/dL Blood 03/22/2024 12:1 0 PM CDT 03/22/2024 12:10 PM CDT Chadd Elias Tre DO LAB POCT ORDERABLES - DEVICE Final Result Performing Organization Address [facility] Co de Phone Number [facility] [place] [address] * (ABNORMAL) POCT glucose (03/22/2024 8:17 AM CDT) Glucose, POC 218(H) 70 - 199 mg/dL Blood 03/22/2024 8:17 AM CDT 03/22/2024 8:17 AM CDT Chadd Toledo DO LAB POCT ORDERABLES - DEVICE Final Result Performing Organization Address [facility] Co de Phone Number [facility] [place] [address] * POCT glucose (03/21/2024 8:44 PM CDT) Glucose, POC 175 70 - 199 mg/dL Blood 03/21/2024 8:44 PM CDT 03/21/2024 8:44 PM CDT Chadd Toledo DO LAB POCT ORDERABLES - DEVICE Final Result Performing Organization Address [facility] Co de Phone Number [facility] [place] [address] * POCT glucose (03/21/2024 5:01 PM CDT) Glucose, POC 172 70 - 199 mg/dL Blood 03/21/2024 5:01 PM CDT 03/21/2024 5:01 PM CDT Chadd Toledo DO LAB POCT ORDERABLES - DEVICE Final Result Performing Organization Address [facility] Co de Phone Number [facility] [place] [address] * (ABNORMAL) POCT glucose (03/21/2024 11:33 AM CDT) Glucose, POC 221(H) 70 - 199 mg/dL Blood 03/21/2024 11:3 3 AM CDT 03/21/2024 11:33 AM CDT Chadd Toledo DO LAB POCT ORDERABLES - DEVICE Final Result Performing Organization Address [facility] Co de Phone Number [facility] [place] [address] * (ABNORMAL) POCT glucose (03/21/2024 7:54 AM CDT) Glucose, POC 208(H) 70 - 199 mg/dL Blood 03/21/2024 7:54 AM CDT 03/21/2024 7:54 AM CDT Chadd Toledo DO LAB POCT ORDERABLES - DEVICE Final Result Performing Organization Address [facility] Co de Phone Number [facility] [place] [address] * (ABNORMAL) POCT glucose (03/20/2024 8:02 PM CDT) Glucose, POC 212(H) 70 - 199 mg/dL Blood 03/20/2024 8:02 PM CDT 03/20/2024 8:02 PM CDT Chadd Toledo DO LAB POCT ORDERABLES - DEVICE Final Result Performing Organization Address City/[facility] Co de Phone Number [facility]IT [facility] [place] [address] * POCT glucose (03/20/2024 4:48 PM CDT) Glucose, POC 156 70 - 199 mg/dL Blood 03/20/2024 4:48 PM CDT 03/20/2024 4:48 PM CDT Chadd Toledo DO LAB POCT ORDERABLES - DEVICE Final Result Performing Organization Address [facility] de Phone Number [facility]IT [facility] [place] [address] * (ABNORMAL) POCT glucose (03/20/2024 12:11 PM CDT) Glucose, POC 223(H) 70 - 199 mg/dL Blood 03/20/2024 12:1 1 PM CDT 03/20/2024 12:11 PM CDT Chadd Toledo DO LAB POCT ORDERABLES - DEVICE Final Result Performing Organization Address [facility] de Phone Number [facility]IT [facility] [place] [address] * POCT glucose (03/20/2024 7:21 AM CDT) Glucose, POC 195 70 - 199 mg/dL Blood 03/20/2024 7:21 AM CDT 03/20/2024 7:21 AM CDT Chadd Toledo DO LAB POCT ORDERABLES - DEVICE Final Result Performing Organization Address [facility] de Phone Number [facility] [place] [address] * eGFR (03/19/2024 11:12 PM CDT) eGFR [...] 2 PM CDT 03/20/2024 12:05 AM CDT us Chadd Toledo DO LAB BLOOD ORDERABLES Final Result [facility] Department [place] [address] * (ABNORMAL) CBC without differential (03/19/2024 11:12 PM CDT) WBC 4.9 3.8 - 9.9 K/cumm Hgb 9.8(L) 11.9 - 15.5 g/dL [facility] Hct 29.7(L) 35.6 - 45.5 % [facility] Plt 173 150 - 400 K/cumm [facility] MPV 8.7(L) 9.1 - 12.3 fL [facility] RBC 3.46(L) 3.90 - 5.20 M/cumm [facility] MCV 85.8 81.3 - 96.4 fL [facility] MCH 28.3 27.1 - 33.3 pg [facility] MCHC 33.0 32.3 - 35.7 g/dL [facility] RDW CV 15.9(H) 11.1 - 14.9 % [facility] RDW SD 47.0 35.7 - 48.1 fL [facility] NRBC abs 0.00 0.00 - 0.01 K/cumm [facility] Blood 03/19/2024 11:1 2 PM CDT 03/20/2024 12:05 AM CDT Chadd Elias Tre LAB BLOOD ORDERABLES Final Result Performing Organization Address City/[facility] [place] [place] [address] * Phosphorus (03/19/2024 11:12 PM CDT) Pathologist [facility] Phosphorus, pl 3.4 2.3 - 4.5 mg/dL Blood 03/19/2024 11:1 2 PM CDT 03/20/2024 12:05 AM CDT Chadd Toledo DO LAB BLOOD ORDERABLES Final Result Performing Organization Address City/[facility] Co de Phone Number [facility] [place] [address] * Magnesium (03/19/2024 11:12 PM CDT) [facility] Magnesium 1.8 1.4 - 2.5 mg/dL Blood 03/19/2024 11:1 2 PM CDT 03/20/2024 12:05 AM CDT Chadd Elias Tre LAB BLOOD ORDERABLES Final Result Performing Organization Address City/[facility] de Phone Number [facility] [place] [address] * (ABNORMAL) Basic metabolic panel (03/19/2024 11:12 PM CDT) Sodium 138 135 - 145 mmol/L Potassium, pl 3.8 3.3 - 4.9 mmol/L [facility] Chloride 102 97 - 110 mmol/L [facility] CO2 28 22 - 32 mmol/L [facility] Anion gap 8 2 - 15 mmol/L [facility] BUN 15 6 - 25 mg/dL [facility] Creatinine 0.71 0.60 - 1.10 mg/dL [facility] Glucose 201(H) 70 - 199 mg/dL [facility] Comment: Interpretive Data Fasting glucose >/= 126 [...] 2022. Calcium 8.7 8.5 - 10.3 mg/dL [facility] Blood 03/19/2024 11:1 2 PM CDT 03/20/2024 12:05 AM CDT Chadd Toledo DO LAB BLOOD ORDERABLES Final Result Performing Organization Address [facility]/ZIP Co de Phone Number [facility] [place] [address] * POCT glucose (03/19/2024 7:45 PM CDT) Glucose, POC 146 70 - 199 mg/dL Blood 03/19/2024 7:45 PM CDT 03/19/2024 7:45 PM CDT Chadd Toledo DO LAB POCT ORDERABLES - DEVICE Final Result Performing Organization Address [facility] Co de Phone Number [facility] [place] [address] * POCT glucose (03/19/2024 4:53 PM CDT) Glucose, POC 151 70 - 199 mg/dL Blood 03/19/2024 4:53 PM CDT 03/19/2024 4:53 PM CDT Chadd Toledo DO LAB POCT ORDERABLES - DEVICE Final Result Performing Organization Address City/[facility] Co de Phone Number [facility] [place] [address] * (ABNORMAL) POCT glucose (03/19/2024 11:59 AM CDT) Glucose, POC 204(H) 70 - 199 mg/dL Blood 03/19/2024 11:5 9 AM CDT 03/19/2024 11:59 AM CDT Chadd Toledo DO LAB POCT ORDERABLES - DEVICE Final Result Performing Organization Address [facility] de Phone Number AJIT [facility] [place] [address] * (ABNORMAL) POCT glucose (03/19/2024 7:42 AM CDT) Glucose, POC 229(H) 70 - 199 mg/dL Blood 03/19/2024 7:42 AM CDT 03/19/2024 7:42 AM CDT Chadd Toledo DO LAB POCT ORDERABLES - DEVICE Final Result Performing Organization Address [facility] Co de Phone Number [facility]IT [facility] [place] [address] * eGFR (03/18/2024 10:07 PM CDT) eGFR [...] Toledo DO LAB BLOOD ORDERABLES Final Result [facility] Department [place] [address] * (ABNORMAL) CBC without differential (03/18/2024 10:07 PM CDT) Pathologist [facility] WBC 4.3 3.8 - 9.9 K/cumm Hgb 9.9(L) 11.9 - 15.5 g/dL [facility] Hct 30.2(L) 35.6 - 45.5 % [facility] Plt 147(L) 150 - 400 K/cumm [facility] MPV 8.3(L) 9.1 - 12.3 fL [facility] RBC 3.54(L) 3.90 - 5.20 M/cumm [facility] MCV 85.3 81.3 - 96.4 fL [facility] MCH 28.0 27.1 - 33.3 pg [facility] MCHC 32.8 32.3 - 35.7 g/dL [facility] RDW CV 15.7(H) 11.1 - 14.9 % [facility] RDW SD 46.8 35.7 - 48.1 fL [facility] NRBC abs 0.00 0.00 - 0.01 K/cumm [facility] Blood 03/18/2024 10:0 7 PM CDT 03/18/2024 10:38 PM CDT Chadd Toledo DO LAB BLOOD ORDERABLES Final Result Performing Organization Address City/[facility]/ZIP Co de Phone Number [facility] Department [place] [address] * Phosphorus (03/18/2024 10:07 PM CDT) Phosphorus, pl 2.9 2.3 - 4.5 mg/dL Blood 03/18/2024 10:0 7 PM CDT 03/18/2024 10:39 PM CDT Chadd Toledo DO LAB BLOOD ORDERABLES Final Result [facility] [place] [address] * Magnesium (03/18/2024 10:07 PM CDT) Magnesium 1.8 1.4 - 2.5 mg/dL Blood 03/18/2024 10:0 7 PM CDT 03/18/2024 10:39 PM CDT Chadd Elias Craft DO LAB BLOOD ORDERABLES Final Result [facility] Department [place] [address] * (ABNORMAL) Basic metabolic panel (03/18/2024 10:07 PM CDT) Sodium 137 135 - 145 mmol/L Potassium, pl 3.9 3.3 - 4.9 mmol/L [facility] Chloride 100 97 - 110 mmol/L [facility] CO2 29 22 - 32 mmol/L [facility] Anion gap 8 2 - 15 mmol/L [facility] BUN 12 6 - 25 mg/dL [facility] Creatinine 0.64 0.60 - 1.10 mg/dL [facility] Glucose 210(H) 70 - 199 mg/dL [facility] Comment: Interpretive Data Fasting glucose >/= 126 [...] 2022. Calcium 8.9 8.5 - 10.3 mg/dL [facility] Blood 03/18/2024 10:0 7 PM CDT 03/18/2024 10:39 PM CDT us Chadd Toledo DO LAB BLOOD ORDERABLES Final Result [facility] Department [place] [address] * (ABNORMAL) POCT glucose (03/18/2024 8:40 PM CDT) Glucose, POC 236(H) 70 - 199 mg/dL Blood 03/18/2024 8:40 PM CDT 03/18/2024 8:40 PM CDT Chadd Toledo DO LAB POCT ORDERABLES - DEVICE Final Result Performing Organization Address [facility] de Phone Number [facility]IT [facility] [place] [address] * POCT glucose (03/18/2024 4:49 PM CDT) Glucose, POC 146 70 - 199 mg/dL Blood 03/18/2024 4:49 PM CDT 03/18/2024 4:49 PM CDT Chadd Toledo DO LAB POCT ORDERABLES - DEVICE Final Result Performing Organization Address [facility] Phone Number [facility] [place] [address] * (ABNORMAL) POCT glucose (03/18/2024 11:55 AM CDT) Glucose, POC 247(H) 70 - 199 mg/dL Blood 03/18/2024 11:5 5 AM CDT 03/18/2024 11:55 AM CDT Chadd DE LA FUENTE POCT ORDERABLES - DEVICE Final Result Performing Organization Address [facility] de Phone Number [facility] [place] [address] * Osmolality, blood (03/18/2024 9:52 AM CDT) Osmo 296 275 - 300 mOsm/kg Blood 03/18/2024 9:52 AM CDT 03/18/2024 10:02 AM CDT Xochitl Esquivel PERIOPERATIVE EDUCATOR LAB BLOOD ORDERABLES F inal Result Performing Organization Address City/[facility]/ZIP Co de Phone Number [facility]IT [facility] [place] [address] * Sodium, urine, random (03/18/2024 9:52 AM CDT) Sodium, ur 54 mmol/L Comment: Interpretive Data No reference range established. Current interpretive data was last revised 2018. Urine 03/18/2024 9:52 AM CDT 03/18/2024 10:02 AM CDT us Xochitl Esquivel PERIOPERATIVE EDUCATOR LAB URINE ORDERABLES F inal Result Performing Organization Address [facility] de Phone Number [facility] [place] [address] * Creatinine, urine, random (03/18/2024 9:52 AM CDT) Creatinine Ur 15.0 mg/dL Comment: Interpretive Data No reference range established. Current interpretive data was last revised 2018. Urine 03/18/2024 9:52 AM CDT 03/18/2024 10:02 AM CDT us Xochitl Esquivel PERIOPERATIVE EDUCATOR LAB URINE ORDERABLES F inal Result Performing Organization Address [facility] Co de Phone Number [facility] [place] [address] * Osmolality, urine (03/18/2024 9:52 AM CDT) Osmo, ur 221 mOsm/kg Urine 03/18/2024 9:5 2 AM CDT 03/18/2024 10:02 AM CDT us Xochitl Esquivel PERIOPERATIVE EDUCATOR LAB URINE ORDERABLES F inal Result Performing Organization Address [facility] Co de Phone Number [facility]IT [facility] [place] [address] * (ABNORMAL) POCT glucose (03/18/2024 7:56 AM CDT) [facility] Glucose, POC 218(H) 70 - 199 mg/dL Blood 03/18/2024 7:56 AM CDT 03/18/2024 7:56 AM CDT Chadd Toledo DO LAB POCT ORDERABLES - DEVICE Final Result Performing Organization Address [facility] [place] [address] * Lidocaine level (03/18/2024 5:50 AM CDT) [facility] Lidocaine (Xylocaine) 3.1 1.5 - 5.0 mcg/mL Blood 03/18/2024 5:50 AM CDT 03/18/2024 6:18 AM CDT Narrative [facility] - 03/18/2024 6:47 AM CDT Draw 24 hours after infusion started. Chadd Toledo DO LAB BLOOD ORDERABLES Final Result Performing Organization Address [facility] [place] [address] * eGFR (03/17/2024 11:15 PM CDT) [facility] eGFR >90 >=60 mL/min/1. 73 m2 [...] 5 PM CDT 03/18/2024 12:35 AM CDT us Chadd Toledo DO LAB BLOOD ORDERABLES Final Result [facility] Department [place] [address] * (ABNORMAL) CBC without differential (03/17/2024 11:15 PM CDT) WBC 3.9 3.8 - 9.9 K/cumm Hgb 9.7(L) 11.9 - 15.5 g/dL [facility] Hct 29.7(L) 35.6 - 45.5 % [facility] Plt 150 150 - 400 K/cumm [facility] MPV 8.6(L) 9.1 - 12.3 fL [facility] RBC 3.48(L) 3.90 - 5.20 M/cumm [facility] MCV 85.3 81.3 - 96.4 fL [facility] MCH 27.9 27.1 - 33.3 pg [facility] MCHC 32.7 32.3 - 35.7 g/dL [facility] RDW CV 15.6(H) 11.1 - 14.9 % [facility] RDW SD 46.0 35.7 - 48.1 fL [facility] NRBC abs 0.00 0.00 - 0.01 K/cumm [facility] Blood 03/17/2024 11:1 5 PM CDT 03/18/2024 12:34 AM CDT Chadd Elias Tre LAB BLOOD ORDERABLES Final Result Performing Organization Address City/[facility]/ZIP Co de Phone Number [facility] [place] [address] * Phosphorus (03/17/2024 11:15 PM CDT) [facility] Phosphorus, pl 2.9 2.3 - 4.5 mg/dL Blood 03/17/2024 11:1 5 PM CDT 03/18/2024 12:35 AM CDT Chadd Toledo LAB BLOOD ORDERABLES Final Result Performing Organization Address City/[facility] Co de Phone Number [facility] [place] [address] * Magnesium (03/17/2024 11:15 PM CDT) [facility] Magnesium 1.8 1.4 - 2.5 mg/dL Blood 03/17/2024 11:1 5 PM CDT 03/18/2024 12:35 AM CDT Chaddtorres Griffin Efetorres LAB BLOOD ORDERABLES Final Result Performing Organization Address City/[facility] [place] [address] * Basic metabolic panel (03/17/2024 11:15 PM CDT) [facility] Sodium 137 135 - 145 mmol/L Potassium, pl 3.9 3.3 - 4.9 mmol/L [facility] Chloride 100 97 - 110 mmol/L [facility] CO2 30 22 - 32 mmol/L [facility] Anion gap 7 2 - 15 mmol/L [facility] BUN 12 6 - 25 mg/dL [facility] Creatinine 0.63 0.60 - 1.10 mg/dL [facility] Glucose 180 70 - 199 mg/dL [facility] Comment: Interpretive Data Fasting glucose >/= 126 [...] 2022. Calcium 9.0 8.5 - 10.3 mg/dL [facility] Blood 03/17/2024 11:1 5 PM CDT 03/18/2024 12:35 AM CDT Chadd Toledo DO LAB BLOOD ORDERABLES Final Result Performing Organization Address City/[facility]/ZIP Co de Phone Number [facility] [place] [address] * Lidocaine level (03/17/2024 11:15 PM CDT) [facility] Signature Lidocaine (Xylocaine) 2.7 1.5 - 5.0 mcg/mL Blood 03/17/2024 11:1 5 PM CDT 03/18/2024 12:27 AM CDT Narrative [facility] - 03/18/2024 1:00 AM CDT Draw 24 hours after infusion started. Chadd Toledo DO LAB BLOOD ORDERABLES Final Result [facility] [place] [address] * POCT glucose (03/17/2024 10:48 PM CDT) Glucose, POC 193 70 - 199 mg/dL Blood 03/17/2024 10:4 8 PM CDT 03/17/2024 10:48 PM CDT Chadd Toledo DO LAB POCT ORDERABLES - DEVICE Final Result Performing Organization Address [facility] de Phone Number [facility] [place] [address] * (ABNORMAL) POCT glucose (03/17/2024 8:15 PM CDT) Glucose, POC 227(H) 70 - 199 mg/dL Blood 03/17/2024 8:15 PM CDT 03/17/2024 8:15 PM CDT Chadd Toledo DO LAB POCT ORDERABLES - DEVICE Final Result Performing Organization Address [facility] de Phone Number [facility] [place] [address] * (ABNORMAL) POCT glucose (03/17/2024 6:05 PM CDT) Glucose, POC 221(H) 70 - 199 mg/dL Blood 03/17/2024 6:05 PM CDT 03/17/2024 6:05 PM CDT Chadd Toledo DO LAB POCT ORDERABLES - DEVICE Final Result Performing Organization Address [facility] de Phone Number [facility] [place] [address] * Critical Care (03/17/2024 2:09 PM CDT) [...] plan with the patient's team and other medical/showroom consultant staff. This time was in addition to and separate from care provided by other practitioners on this day of service. ?? us Jesse Zhao MD IN CLINIC/BEDSIDE ORDERABLE S Final Result * POCT glucose (03/17/2024 12:49 PM CDT) Glucose, POC 189 70 - 199 mg/dL Blood 03/17/2024 12:4 9 PM CDT 03/17/2024 12:49 PM CDT Chadd Toledo DO LAB POCT ORDERABLES - DEVICE Final Result Performing Organization Address [facility] Co de Phone Number [facility] [place] [address] * (ABNORMAL) POCT glucose (03/17/2024 8:55 AM CDT) Glucose, POC 204(H) 70 - 199 mg/dL Blood 03/17/2024 8:55 AM CDT 03/17/2024 8:55 AM CDT Chadd Toledo DO LAB POCT ORDERABLES - DEVICE Final Result Performing Organization Address [facility]/ZIP Co de Phone Number [facility] Department [place] [address] * POCT glucose (03/17/2024 3:02 AM CDT) Glucose, POC 195 70 - 199 mg/dL Blood 03/17/2024 3:02 AM CDT 03/17/2024 3:02 AM CDT Chadd Toledo DO LAB POCT ORDERABLES - DEVICE Final Result [facility] Department [place] [address] * eGFR (03/16/2024 10:09 PM CDT) [facility] eGFR >90 >=60 mL/min/1. 73 m2 [...] BLOOD ORDERABLES Final Result Performing Organization Address [facility] de Phone Number [facility] [facility] [place] [address] * (ABNORMAL) CBC without differential (03/16/2024 10:09 PM CDT) Pathologist [facility] [place] WBC 3.5(L) 3.8 - 9.9 K/cumm Hgb 9.5(L) 11.9 - 15.5 g/dL [facility] Hct 28.7(L) 35.6 - 45.5 % [facility] Plt 129(L) 150 - 400 K/cumm [facility] MPV 8.6(L) 9.1 - 12.3 fL [facility] RBC 3.40(L) 3.90 - 5.20 M/cumm [facility] MCV 84.4 81.3 - 96.4 fL [facility] MCH 27.9 27.1 - 33.3 pg [facility] MCHC 33.1 32.3 - 35.7 g/dL [facility] RDW CV 15.1(H) 11.1 - 14.9 % [facility] RDW SD 44.1 35.7 - 48.1 fL [facility] NRBC abs 0.00 0.00 - 0.01 K/cumm [facility] Blood 03/16/2024 10:0 9 PM CDT 03/16/2024 10:29 PM CDT Chadd Toledo LAB BLOOD ORDERABLES Final Result Performing Organization Address [facility]/ZIP Co de Phone Number [facility] Department [place] [address] * Phosphorus (03/16/2024 10:09 PM CDT) Pathologist [facility] [place] Phosphorus, pl 2.8 2.3 - 4.5 mg/dL Blood 03/16/2024 10:0 9 PM CDT 03/16/2024 10:28 PM CDT Chadd Toledo DO LAB BLOOD ORDERABLES Final Result AJIT [facility] [place] [address] * Magnesium (03/16/2024 10:09 PM CDT) Pathologist [facility] [place] Magnesium 1.7 1.4 - 2.5 mg/dL Blood 03/16/2024 10:0 9 PM CDT 03/16/2024 10:28 PM CDT Chadd Toledo DO LAB BLOOD ORDERABLES Final Result Performing Organization Address [facility] Co de Phone Number AJIT [facility] [place] [address] * (ABNORMAL) Basic metabolic panel (03/16/2024 10:09 PM CDT) [facility] Sodium 136 135 - 145 mmol/L Potassium, pl 4.0 3.3 - 4.9 mmol/L [facility] Chloride 97 97 - 110 mmol/L [facility] CO2 31 22 - 32 mmol/L [facility] Anion gap 8 2 - 15 mmol/L [facility] BUN 13 6 - 25 mg/dL [facility] Creatinine 0.71 0.60 - 1.10 mg/dL [facility] Glucose 222(H) 70 - 199 mg/dL [facility] Comment: Interpretive Data Fasting glucose >/= 126 [...] 2022. Calcium 8.8 8.5 - 10.3 mg/dL [facility] Blood 03/16/2024 10:0 9 PM CDT 03/16/2024 10:28 PM CDT Chadd Toledo DO LAB BLOOD ORDERABLES Final Result Performing Organization Address City/[facility] Co de Phone Number AJIT [facility] Department [place] [address] * (ABNORMAL) POCT glucose (03/16/2024 10:08 PM CDT) [facility] Signature Glucose, POC 233(H) 70 - 199 mg/dL Blood 03/16/2024 10:0 8 PM CDT 03/16/2024 10:08 PM CDT Chaddtorres Griffin Tre DO LAB POCT ORDERABLES - DEVICE Final Result Performing Organization Address [facility] de Phone Number AJIT [facility] Department [place] [address] * Critical Care (03/16/2024 8:11 PM CDT) [...] plan with the ICU team and other medical/showroom consultant staff, making frequent assessments and decisions [...] - DEVICE Final Result Performing Organization Address [facility] Co de Phone Number [facility] [place] [address] * POCT glucose (03/16/2024 12:13 PM CDT) Glucose, POC 194 70 - 199 mg/dL Blood 03/16/2024 12:1 3 PM CDT 03/16/2024 12:13 PM CDT Chadd Toledo DO LAB POCT ORDERABLES - DEVICE Final Result Performing Organization Address [facility] Co de Phone Number AJIT [facility] Department [place] [address] * Critical Care (03/16/2024 11:56 AM CDT) [...] plan with the ICU team and other medical/showroom consultant staff, making frequent assessments and decisions [...] 4 AM CDT 03/16/2024 10:54 AM CDT us Chadd Toledo DO LAB POCT ORDERABLES - DEVICE Final Result AJIT [facility] Department [place] [address] * POCT glucose (03/16/2024 10:11 AM CDT) Glucose, POC 130 70 - 199 mg/dL Blood 03/16/2024 10:1 1 AM CDT 03/16/2024 10:11 AM CDT Chadd Toledo DO LAB POCT ORDERABLES - DEVICE Final Result Performing Organization Address [facility] de Phone Number [facility] [place] [address] * POCT glucose (03/16/2024 7:14 AM CDT) Glucose, POC 128 70 - 199 mg/dL Blood 03/16/2024 7:14 AM CDT 03/16/2024 7:14 AM CDT Chadd Toledo DO LAB POCT ORDERABLES - DEVICE Final Result Performing Organization Address [facility] de Phone Number [facility] [place] [address] * Lidocaine level (03/16/2024 6:01 AM CDT) Lidocaine (Xylocaine) 2.9 1.5 - 5.0 mcg/mL Blood 03/16/2024 6:01 AM CDT 03/16/2024 6:14 AM CDT Narrative AJIT [facility] - 03/16/2024 6:42 AM CDT Draw 24 hours after infusion started. Chadd Toledo DO LAB BLOOD ORDERABLES Final Result Performing Organization Address [facility] de Phone Number [facility] [place] [address] * POCT glucose (03/16/2024 6:00 AM CDT) Glucose, POC 129 70 - 199 mg/dL Blood 03/16/2024 6:00 AM CDT 03/16/2024 6:00 AM CDT us Chadd Toledo DO LAB POCT ORDERABLES - DEVICE Final Result Performing Organization Address [facility] Co de Phone Number AJIT [facility] [place] [address] * POCT glucose (03/16/2024 5:00 AM CDT) Glucose, POC 130 70 - 199 mg/dL Blood 03/16/2024 5:00 AM CDT 03/16/2024 5:00 AM CDT Chadd Toledo DO LAB POCT ORDERABLES - DEVICE Final Result Performing Organization Address [facility] de Phone Number [facility]IT [facility] [place] [address] * Critical Care (03/16/2024 4:44 AM CDT) Narrative Shandra Duarte MD - 03/16/2024 4:44 AM CDT Shandra [...] plan with the ICU team and other medical/showroom consultant staff, making frequent assessments and decisions [...] 4:10 AM CDT 03/16/2024 4:10 AM CDT us Chadd Toledo DO LAB POCT ORDERABLES - DEVICE Final Result Performing Organization Address [facility]/ZIP Co de Phone Number AJIT [facility] [place] [address] * POCT glucose (03/16/2024 3:01 AM CDT) Glucose, POC 154 70 - 199 mg/dL Blood 03/16/2024 3:01 AM CDT 03/16/2024 3:01 AM CDT us Chadd Toledo DO LAB POCT ORDERABLES - DEVICE Final Result Performing Organization Address [facility]/ZIP Co de Phone Number AJIT [facility] [place] [address] * POCT glucose (03/16/2024 2:03 AM CDT) Glucose, POC 169 70 - 199 mg/dL Blood 03/16/2024 2:03 AM CDT 03/16/2024 2:03 AM CDT us Chadd Toledo DO LAB POCT ORDERABLES - DEVICE Final Result Performing Organization Address [facility] de Phone Number [facility] [place] [address] * POCT glucose (03/16/2024 1:06 AM CDT) Glucose, POC 176 70 - 199 mg/dL Blood 03/16/2024 1:06 AM CDT 03/16/2024 1:06 AM CDT Chadd Toledo DO LAB POCT ORDERABLES - DEVICE Final Result Performing Organization Address [facility] de Phone Number [facility] [place] [address] * POCT glucose (03/16/2024 12:10 AM CDT) Glucose, POC 153 70 - 199 mg/dL Blood 03/16/2024 12:1 0 AM CDT 03/16/2024 12:10 AM CDT Chadd Toledo DO LAB POCT ORDERABLES - DEVICE Final Result Performing Organization Address [facility] [place] [address] * POCT glucose (03/15/2024 11:09 PM CDT) Glucose, POC 122 70 - 199 mg/dL Blood 03/15/2024 11:0 9 PM CDT 03/15/2024 11:09 PM CDT Chadd Elias Craft DO LAB POCT ORDERABLES - DEVICE Final Result Performing Organization Address [facility] de Phone Number [facility]IT [facility] Department [place] [address] * POCT glucose (03/15/2024 9:59 PM CDT) Glucose, POC 130 70 - 199 mg/dL Blood 03/15/2024 9:59 PM CDT 03/15/2024 9:59 PM CDT Chaddtorres Griffin Tre DO LAB POCT ORDERABLES - DEVICE Final Result Performing Organization Address [facility] de Phone Number [facility]IT [facility] [place] [address] * POCT glucose (03/15/2024 8:53 PM CDT) Pathologist [facility] [place] Glucose, POC 161 70 - 199 mg/dL Blood 03/15/2024 8:53 PM CDT 03/15/2024 8:53 PM CDT Chadd Toledo DO LAB POCT ORDERABLES - DEVICE Final Result Performing Organization Address [facility] de Phone Number [facility]IT [facility] Department [place] [address] * eGFR (03/15/2024 8:51 PM CDT) eGFR >90 >=60 mL/min/1. 73 [...] 8:51 PM CDT 03/15/2024 9:04 PM CDT us Chadd Toledo DO LAB BLOOD ORDERABLES Final Result [facility] Department [place] [address] * (ABNORMAL) CBC without differential (03/15/2024 8:51 PM CDT) WBC 4.8 3.8 - 9.9 K/cumm Hgb 9.4(L) 11.9 - 15.5 g/dL [facility] Hct 28.2(L) 35.6 - 45.5 % [facility] Plt 119(L) 150 - 400 K/cumm [facility] MPV 9.0(L) 9.1 - 12.3 fL [facility] RBC 3.35(L) 3.90 - 5.20 M/cumm [facility] MCV 84.2 81.3 - 96.4 fL [facility] MCH 28.1 27.1 - 33.3 pg [facility] MCHC 33.3 32.3 - 35.7 g/dL [facility] RDW CV 14.7 11.1 - 14.9 % [facility] RDW SD 43.4 35.7 - 48.1 fL [facility] NRBC abs 0.00 0.00 - 0.01 K/cumm [facility] Blood 03/15/2024 8:51 PM CDT 03/15/2024 9:04 PM CDT Chadd Elias Tre LAB BLOOD ORDERABLES Final Result Performing Organization Address City/[facility] Co de Phone Number [facility] [place] [address] * Phosphorus (03/15/2024 8:51 PM CDT) [facility] Phosphorus, pl 2.7 2.3 - 4.5 mg/dL Blood 03/15/2024 8:51 PM CDT 03/15/2024 9:04 PM CDT Chadd Toledo LAB BLOOD ORDERABLES Final Result Performing Organization Address City/[facility] [place] [address] * Magnesium (03/15/2024 8:51 PM CDT) [facility] Magnesium 1.7 1.4 - 2.5 mg/dL Blood 03/15/2024 8:51 PM CDT 03/15/2024 9:04 PM CDT Chadd Toledo LAB BLOOD ORDERABLES Final Result Performing Organization Address [facility] [place] [address] * Basic metabolic panel (03/15/2024 8:51 PM CDT) [facility] Sodium 136 135 - 145 mmol/L Potassium, pl 3.8 3.3 - 4.9 mmol/L [facility] Chloride 99 97 - 110 mmol/L [facility] CO2 31 22 - 32 mmol/L [facility] Anion gap 6 2 - 15 mmol/L [facility] BUN 15 6 - 25 mg/dL [facility] Creatinine 0.70 0.60 - 1.10 mg/dL [facility] Glucose 158 70 - 199 mg/dL [facility] Comment: Interpretive Data Fasting glucose >/= 126 [...] 2022. Calcium 8.7 8.5 - 10.3 mg/dL [facility] Blood 03/15/2024 8:51 PM CDT 03/15/2024 9:04 PM CDT Chadd Toledo DO LAB BLOOD ORDERABLES Final Result [facility] [place] [address] * POCT glucose (03/15/2024 8:05 PM CDT) Glucose, POC 188 70 - 199 mg/dL Blood 03/15/2024 8:05 PM CDT 03/15/2024 8:05 PM CDT Chadd Toledo DO LAB POCT ORDERABLES - DEVICE Final Result [facility] [place] [address] * (ABNORMAL) POCT glucose (03/15/2024 7:04 PM CDT) Glucose, POC 221(H) 70 - 199 mg/dL Blood 03/15/2024 7:04 PM CDT 03/15/2024 7:04 PM CDT Chadd Toledo DO LAB POCT ORDERABLES - DEVICE Final Result Performing Organization Address [facility] de Phone Number [facility] [place] [address] * (ABNORMAL) POCT glucose (03/15/2024 6:09 PM CDT) Glucose, POC 217(H) 70 - 199 mg/dL Blood 03/15/2024 6:09 PM CDT 03/15/2024 6:09 PM CDT Chadd Toledo DO LAB POCT ORDERABLES - DEVICE Final Result Performing Organization Address [facility] Phone Number [facility] [place] [address] * (ABNORMAL) POCT glucose (03/15/2024 5:38 PM CDT) Glucose, POC 200(H) 70 - 199 mg/dL Blood 03/15/2024 5:38 PM CDT 03/15/2024 5:38 PM CDT Chadd Toledo DO LAB POCT ORDERABLES - DEVICE Final Result Performing Organization Address [facility] [place] [address] * Critical Care (03/15/2024 5:28 PM CDT) [...] plan with the ICU team and other medical/showroom consultant staff, making frequent assessments and decisions [...] - DEVICE Final Result Performing Organization Address [facility] Co de Phone Number [facility] [place] [address] * POCT glucose (03/15/2024 3:09 PM CDT) Glucose, POC 169 70 - 199 mg/dL Blood 03/15/2024 3:09 PM CDT 03/15/2024 3:09 PM CDT Chadd Toledo DO LAB POCT ORDERABLES - DEVICE Final Result Performing Organization Address [facility] Co de Phone Number [facility] Department [place] [address] * XR Spine Thoracic 3 Vw (03/15/2024 [...] - DEVICE Final Result Performing Organization Address [facility] Co de Phone Number [facility] [place] [address] * POCT glucose (03/15/2024 12:32 PM CDT) Glucose, POC 198 70 - 199 mg/dL Blood 03/15/2024 12:3 2 PM CDT 03/15/2024 12:32 PM CDT Chadd Toledo DO LAB POCT ORDERABLES - DEVICE Final Result Performing Organization Address [facility] de Phone Number [facility] [place] [address] * (ABNORMAL) POCT glucose (03/15/2024 11:07 AM CDT) Glucose, POC 208(H) 70 - 199 mg/dL Blood 03/15/2024 11:0 7 AM CDT 03/15/2024 11:07 AM CDT Chadd Toledo DO LAB POCT ORDERABLES - DEVICE Final Result Performing Organization Address [facility] de Phone Number [facility] [place] [address] * (ABNORMAL) POCT glucose (03/15/2024 10:05 AM CDT) Glucose, POC 217(H) 70 - 199 mg/dL Blood 03/15/2024 10:0 5 AM CDT 03/15/2024 10:05 AM CDT Chadd Toledo DO LAB POCT ORDERABLES - DEVICE Final Result Performing Organization Address [facility] de Phone Number [facility] [place] [address] * POCT glucose (03/15/2024 8:13 AM CDT) Glucose, POC 95 70 - 199 mg/dL Blood 03/15/2024 8:13 AM CDT 03/15/2024 8:13 AM CDT Chadd Toledo DO LAB POCT ORDERABLES - DEVICE Final Result Performing Organization Address [facility] Phone Number [facility] [place] [address] * POCT glucose (03/15/2024 7:16 AM CDT) Glucose, POC 84 70 - 199 mg/dL Blood 03/15/2024 7:16 AM CDT 03/15/2024 7:16 AM CDT Chadd Toledo DO LAB POCT ORDERABLES - DEVICE Final Result Performing Organization Address [facility] de Phone Number [facility] [place] [address] * Lidocaine level (03/15/2024 6:00 AM CDT) Lidocaine (Xylocaine) 2.8 1.5 - 5.0 mcg/mL Blood 03/15/2024 6:00 AM CDT 03/15/2024 6:18 AM CDT Narrative [facility]IT [facility] - 03/15/2024 6:47 AM CDT Draw 24 hours after infusion started. Chadd Toledo DO LAB BLOOD ORDERABLES Final Result Performing Organization Address City/[facility]/[place] [address] * POCT glucose (03/15/2024 5:58 AM CDT) Glucose, POC 115 70 - 199 mg/dL Blood 03/15/2024 5:58 AM CDT 03/15/2024 5:58 AM CDT us Chadd Tloedo DO LAB POCT ORDERABLES - DEVICE Final Result Performing Organization Address [facility] [place] [address] * POCT glucose (03/15/2024 4:58 AM CDT) Glucose, POC 135 70 - 199 mg/dL Blood 03/15/2024 4:58 AM CDT 03/15/2024 4:58 AM CDT us Chadd DE LA FUENTE POCT ORDERABLES - DEVICE Final Result Performing Organization Address [facility] Co de Phone Number [facility] [place] [address] * POCT glucose (03/15/2024 4:03 AM CDT) Glucose, POC 175 70 - 199 mg/dL Blood 03/15/2024 4:03 AM CDT 03/15/2024 4:03 AM CDT Chadd Toledo DO LAB POCT ORDERABLES - DEVICE Final Result Performing Organization Address [facility] [place] [address] * POCT glucose (03/15/2024 3:01 AM CDT) Glucose, POC 158 70 - 199 mg/dL Blood 03/15/2024 3:01 AM CDT 03/15/2024 3:01 AM CDT Chadd Toledo DO LAB POCT ORDERABLES - DEVICE Final Result Performing Organization Address [facility] de Phone Number [facility] [place] [address] * POCT glucose (03/15/2024 2:00 AM CDT) Glucose, POC 140 70 - 199 mg/dL Blood 03/15/2024 2:00 AM CDT 03/15/2024 2:00 AM CDT Chadd Toledo DO LAB POCT ORDERABLES - DEVICE Final Result Performing Organization Address [facility] de Phone Number [facility] [place] [address] * POCT glucose (03/15/2024 1:00 AM CDT) Glucose, POC 122 70 - 199 mg/dL Blood 03/15/2024 1:00 AM CDT 03/15/2024 1:00 AM CDT Chadd Toledo DO LAB POCT ORDERABLES - DEVICE Final Result Performing Organization Address [facility] de Phone Number [facility] [place] [address] * POCT glucose (03/14/2024 11:55 PM CDT) Glucose, POC 84 70 - 199 mg/dL Blood 03/14/2024 11:5 5 PM CDT 03/14/2024 11:55 PM CDT Chadd Toledo DO LAB POCT ORDERABLES - DEVICE Final Result [facility]ERNER [facility] Department [place] [address] * GA CRITICAL CARE ILL/INJURED PATIENT INIT 30-74 MIN [...] plan with the ICU team and other medical/showroom consultant staff, making frequent assessments and decisions [...] 5 PM CDT 03/14/2024 10:15 PM CDT us Chadd Toledo DO LAB POCT ORDERABLES - DEVICE Final Result [facility] Department [place] [address] * POCT glucose (03/14/2024 9:07 PM CDT) Glucose, POC 127 70 - 199 mg/dL Blood 03/14/2024 9:07 PM CDT 03/14/2024 9:07 PM CDT Chaddtorres Griffin Efetorres DO LAB POCT ORDERABLES - DEVICE Final Result Performing Organization Address [facility] de Phone Number AJIT [facility] [place] [address] * POCT glucose (03/14/2024 7:57 PM CDT) Glucose, POC 149 70 - 199 mg/dL Blood 03/14/2024 7:57 PM CDT 03/14/2024 7:57 PM CDT Chaddtorres Griffin Tre DO LAB POCT ORDERABLES - DEVICE Final Result Performing Organization Address [facility] de Phone Number [facility] [place] [address] * eGFR (03/14/2024 7:55 PM CDT) eGFR [...] BLOOD ORDERABLES Final Result Performing Organization Address [facility] Co de Phone Number [facility] Department [place] [address] * Type and screen (03/14/2024 7:55 PM CDT) Pathologist [facility] ABO Rh O Negative Anselmo, indirect Negative [facility] Blood 03/14/2024 7:55 PM CDT 03/14/2024 8:24 PM CDT Narrative [facility] - 03/14/2024 9:09 PM CDT Has the patient had Daratumumab or Isatuximab in the past 6 months?->Unknown Chadd Toledo DO LAB BLOOD BANK TEST O RDERABLES Final Result Performing Organization Address City/[facility]/ZIP Co de Phone Number [facility] Department [place] [address] * (ABNORMAL) CBC without differential (03/14/2024 7:55 PM CDT) WBC 5.0 3.8 - 9.9 K/cumm Hgb 9.9(L) 11.9 - 15.5 g/dL [facility] Hct 29.2(L) 35.6 - 45.5 % [facility] Plt 112(L) 150 - 400 K/cumm [facility] MPV 9.3 9.1 - 12.3 fL [facility] RBC 3.50(L) 3.90 - 5.20 M/cumm [facility] MCV 83.4 81.3 - 96.4 fL [facility] MCH 28.3 27.1 - 33.3 pg [facility] MCHC 33.9 32.3 - 35.7 g/dL [facility] RDW CV 14.6 11.1 - 14.9 % [facility] RDW SD 43.5 35.7 - 48.1 fL [facility] NRBC abs 0.00 0.00 - 0.01 K/cumm [facility] Blood 03/14/2024 7:55 PM CDT 03/14/2024 8:19 PM CDT Chadd Toledo DO LAB BLOOD ORDERABLES Final Result Performing Organization Address City/[facility]/ZIP Co de Phone Number [facility] Department [place] [address] * Phosphorus (03/14/2024 7:55 PM CDT) Pathologist [facility] Phosphorus, pl 3.0 2.3 - 4.5 mg/dL Blood 03/14/2024 7:55 PM CDT 03/14/2024 8:19 PM CDT Chadd Toledo DO LAB BLOOD ORDERABLES Final Result [facility] [place] [address] * Magnesium (03/14/2024 7:55 PM CDT) Pathologist [facility] Magnesium 1.7 1.4 - 2.5 mg/dL Blood 03/14/2024 7:55 PM CDT 03/14/2024 8:19 PM CDT Chadd Elias Craft DO LAB BLOOD ORDERABLES Final Result [facility] [place] [address] * (ABNORMAL) Basic metabolic panel (03/14/2024 7:55 PM CDT) Sodium 135 135 - 145 mmol/L Potassium, pl 3.9 3.3 - 4.9 mmol/L [facility] Chloride 98 97 - 110 mmol/L [facility] CO2 33(H) 22 - 32 mmol/L [facility] Anion gap 4 2 - 15 mmol/L [facility] BUN 12 6 - 25 mg/dL [facility] Creatinine 0.53(L) 0.60 - 1.10 mg/dL [facility] Glucose 136 70 - 199 mg/dL [facility] Comment: Interpretive Data Fasting glucose >/= 126 [...] 2022. Calcium 8.5 8.5 - 10.3 mg/dL [facility] Blood 03/14/2024 7:55 PM CDT 03/14/2024 8:19 PM CDT Chadd Toledo DO LAB BLOOD ORDERABLES Final Result [facility]IT [facility] Department [place] [address] * POCT glucose (03/14/2024 6:59 PM CDT) Glucose, POC 145 70 - 199 mg/dL Blood 03/14/2024 6:59 PM CDT 03/14/2024 6:59 PM CDT Chadd Elias Tre DO LAB POCT ORDERABLES - DEVICE Final Result Performing Organization Address [facility] de Phone Number [facility] [place] [address] * POCT glucose (03/14/2024 6:01 PM CDT) Glucose, POC 177 70 - 199 mg/dL Blood 03/14/2024 6:01 PM CDT 03/14/2024 6:01 PM CDT Chadd Toledo DO LAB POCT ORDERABLES - DEVICE Final Result Performing Organization Address [facility] Phone Number [facility] [place] [address] * POCT glucose (03/14/2024 5:21 PM CDT) Glucose, POC 196 70 - 199 mg/dL Blood 03/14/2024 5:21 PM CDT 03/14/2024 5:21 PM CDT Chadd Toledo DO LAB POCT ORDERABLES - DEVICE Final Result Performing Organization Address [facility] de Phone Number [facility] [place] [address] * (ABNORMAL) POCT glucose (03/14/2024 4:25 PM CDT) Glucose, POC 238(H) 70 - 199 mg/dL Blood 03/14/2024 4:25 PM CDT 03/14/2024 4:25 PM CDT Chadd Toledo DO LAB POCT ORDERABLES - DEVICE Final Result Performing Organization Address [facility] Co de Phone Number AJIT [facility] [place] [address] * (ABNORMAL) POCT glucose (03/14/2024 3:20 PM CDT) Glucose, POC 239(H) 70 - 199 mg/dL Blood 03/14/2024 3:20 PM CDT 03/14/2024 3:20 PM CDT Chadd Toledo DO LAB POCT ORDERABLES - DEVICE Final Result Performing Organization Address [facility] [place] [address] * (ABNORMAL) POCT glucose (03/14/2024 2:00 PM CDT) Glucose, POC 271(H) 70 - 199 mg/dL Comment:Glu2: RN/MD Notified Glucose comment 1 Glu2: RN/MD Notified [facility] Blood 03/14/2024 2:00 PM CDT 03/14/2024 2:00 PM CDT Chadd Toledo DO LAB POCT ORDERABLES - DEVICE Final Result Performing Organization Address [facility] Co de Phone Number AJIT [facility] [place] [address] * (ABNORMAL) POCT glucose (03/14/2024 12:59 PM CDT) Glucose, POC 257(H) 70 - 199 mg/dL Blood 03/14/2024 12:5 9 PM CDT 03/14/2024 12:59 PM CDT Chadd Toledo DO LAB POCT ORDERABLES - DEVICE Final Result Performing Organization Address [facility] Co de Phone Number AJIT [facility] [place] [address] * (ABNORMAL) POCT glucose (03/14/2024 12:15 PM CDT) Glucose, POC 252(H) 70 - 199 mg/dL Blood 03/14/2024 12:1 5 PM CDT 03/14/2024 12:15 PM CDT Chadd Toledo DO LAB POCT ORDERABLES - DEVICE Final Result Performing Organization Address City/[facility] [place] [address] * (ABNORMAL) POCT glucose (03/14/2024 11:01 AM CDT) Glucose, POC 218(H) 70 - 199 mg/dL Blood 03/14/2024 11:0 1 AM CDT 03/14/2024 11:01 AM CDT Chadd Toledo DO LAB POCT ORDERABLES - DEVICE Final Result Performing Organization Address City/[facility] [place] [address] * POCT glucose (03/14/2024 9:56 AM CDT) Glucose, POC 153 70 - 199 mg/dL Blood 03/14/2024 9:56 AM CDT 03/14/2024 9:56 AM CDT Chadd Toledo DO LAB POCT ORDERABLES - DEVICE Final Result Performing Organization Address City/[facility] [place] [address] * POCT glucose (03/14/2024 9:00 AM CDT) Glucose, POC 105 70 - 199 mg/dL Blood 03/14/2024 9:00 AM CDT 03/14/2024 9:00 AM CDT Chadd Toledo DO LAB POCT ORDERABLES - DEVICE Final Result Performing Organization Address [facility] de Phone Number [facility] [place] [address] * POCT glucose (03/14/2024 8:07 AM CDT) Glucose, POC 78 70 - 199 mg/dL Blood 03/14/2024 8:07 AM CDT 03/14/2024 8:07 AM CDT Chadd Toledo DO LAB POCT ORDERABLES - DEVICE Final Result Performing Organization Address [facility] Phone Number [facility] [place] [address] * Critical Care (03/14/2024 7:38 AM CDT) [...] plan with the ICU team and other medical/showroom consultant staff, making frequent assessments and decisions [...] - DEVICE Final Result Performing Organization Address [facility] Co de Phone Number [facility] [place] [address] * POCT glucose (03/14/2024 6:10 AM CDT) Glucose, POC 127 70 - 199 mg/dL Blood 03/14/2024 6:10 AM CDT 03/14/2024 6:10 AM CDT us Chadd Toledo DO LAB POCT ORDERABLES - DEVICE Final Result Performing Organization Address [facility] Co de Phone Number AJIT [facility] [place] [address] * POCT glucose (03/14/2024 5:11 AM CDT) Glucose, POC 138 70 - 199 mg/dL Blood 03/14/2024 5:11 AM CDT 03/14/2024 5:11 AM CDT Chadd Toledo DO LAB POCT ORDERABLES - DEVICE Final Result Performing Organization Address City/[facility] [place] [address] * POCT glucose (03/14/2024 4:03 AM CDT) Glucose, POC 139 70 - 199 mg/dL Blood 03/14/2024 4:03 AM CDT 03/14/2024 4:03 AM CDT Chadd Toledo LAB POCT ORDERABLES - DEVICE Final Result Performing Organization Address [facility] [place] [address] * POCT glucose (03/14/2024 3:11 AM CDT) Glucose, POC 173 70 - 199 mg/dL Blood 03/14/2024 3:11 AM CDT 03/14/2024 3:11 AM CDT Chadd Toledo LAB POCT ORDERABLES - DEVICE Final Result Performing Organization Address [facility] [place] [address] * POCT glucose (03/14/2024 2:21 AM CDT) Glucose, POC 165 70 - 199 mg/dL Blood 03/14/2024 2:21 AM CDT 03/14/2024 2:21 AM CDT Chadd Toledo DO LAB POCT ORDERABLES - DEVICE Final Result Performing Organization Address City/[facility] Co de Phone Number AJIT TRAN [facility] [place] [address] * POCT glucose (03/14/2024 1:15 AM CDT) Glucose, POC 192 70 - 199 mg/dL Blood 03/14/2024 1:15 AM CDT 03/14/2024 1:15 AM CDT Chadd Toledo DO LAB POCT ORDERABLES - DEVICE Final Result Performing Organization Address [facility] [place] [address] * CT Cervical Spine WO Contrast (03/14/2024 [...] * POCT glucose (03/14/2024 12:04 AM CDT) Glucose, POC 192 70 - 199 mg/dL Blood 03/14/2024 12:0 4 AM CDT 03/14/2024 12:04 AM CDT Chadd Toledo DO LAB POCT ORDERABLES - DEVICE Final Result AJIT [facility] Department [place] [address] * ECG 12 lead (03/13/2024 11:58 PM CDT) Ventricular Rate EKG/Min 96 BPM [facility] Atrial Rate 96 BPM [facility] GA-Interval (MSEC) 208 ms [facility] QRS-Interval (MSEC) 112 ms [facility] QT-Interval (MSEC) 390 ms [facility] QTc 492 ms [facility] P [place] 71 degrees [facility] R [place] 63 degrees [facility] T [place] 64 degrees [facility] Diagnosis Normal sinus rhythm Prolonged QT Abnormal ECG No previous ECGs available Confirmed by CALEB MORALES M.D ([id number]) on 03/14/2024 5:29:02 PM [facility] 03/13/2024 11:5 8 PM CDT 03/14/2024 5:29 PM CDT Chadd Toledo DO ECG ORDERABLES Final Result Performing Organization Address City/[facility]/ZIP Co de Phone Number [facility] * (ABNORMAL) POCT glucose (03/13/2024 11:13 PM CDT) Glucose, POC 209(H) 70 - 199 mg/dL Blood 03/13/2024 11:1 3 PM CDT 03/13/2024 11:13 PM CDT Chadd Toledo DO LAB POCT ORDERABLES - DEVICE Final Result Performing Organization Address [facility] de [place] [address] * POCT glucose (03/13/2024 10:08 PM CDT) Glucose, POC 196 70 - 199 mg/dL Blood 03/13/2024 10:0 8 PM CDT 03/13/2024 10:08 PM CDT Chadd Toledo DO LAB POCT ORDERABLES - DEVICE Final Result Performing Organization Address [facility] [place] [address] * aPTT (03/13/2024 10:04 PM CDT) aPTT 28 28 - 38 sec Comment: Interpretive Data Heparin therapeutic range: 66.0 - 100.0 seconds. Range based on correlation with therapeutic heparin activity range of 0.3 - 0.7 Units/mL. Current interpretive data was last revised on 2023. Blood 03/13/2024 10:0 4 PM CDT 03/13/2024 10:24 PM CDT Chadd Toledo LAB BLOOD ORDERABLES Final Result Performing Organization Address [facility] de Phone Number AJIT TRAN One [facility] [place] [address] * (ABNORMAL) Protime-INR (03/13/2024 10:04 PM CDT) PT 13.7(H) 9.7 - 13.0 sec INR 1.26(H) 0.90 - 1.20 [facility] Comment: Interpretive data Oral anticoagulant therapeutic ranges: Venous thromboembolism prophylaxis or treatment: 2.0-3.0 CARDIOLOGY Standard range: 2.0-3.0 High-intensity range: 2.5-3.5 Refer to indication-specific guidelines for appropriate target ranges for prosthetic heart valve replacement. Current interpretive data was last revised on 2019. Blood 03/13/2024 10:0 4 PM CDT 03/13/2024 10:24 PM CDT us Chadd Toledo DO LAB BLOOD ORDERABLES Final Result AJIT [facility] Department [place] [address] * Critical Care (03/13/2024 10:00 PM CDT) [...] plan with the ICU team and other medical/showroom consultant staff, making frequent assessments and decisions [...] BLOOD ORDERABLES Final Result Performing Organization Address City/State/[facility] Co de Phone Number [facility] Department [place] [address] * eGFR (03/13/2024 10:00 PM CDT) eGFR [...] BLOOD ORDERABLES Final Result Performing Organization Address City/[facility]/ZIP Co de Phone Number [facility] Department [place] [address] * (ABNORMAL) CBC without differential (03/13/2024 10:00 PM CDT) WBC 5.0 3.8 - 9.9 K/cumm Hgb 10.2(L) 11.9 - 15.5 g/dL [facility] Hct 30.8(L) 35.6 - 45.5 % [facility] Plt 107(L) 150 - 400 K/cumm [facility] MPV 8.4(L) 9.1 - 12.3 fL [facility] RBC 3.69(L) 3.90 - 5.20 M/cumm [facility] MCV 83.5 81.3 - 96.4 fL [facility] MCH 27.6 27.1 - 33.3 pg [facility] MCHC 33.1 32.3 - 35.7 g/dL [facility] RDW CV 14.1 11.1 - 14.9 % [facility] RDW SD 42.5 35.7 - 48.1 fL [facility] NRBC abs 0.00 0.00 - 0.01 K/cumm [facility] Blood 03/13/2024 10:0 0 PM CDT 03/13/2024 10:22 PM CDT Chadd Toledo DO LAB BLOOD ORDERABLES Final Result Performing Organization Address City/[facility]/ZIP Co de Phone Number [facility] [place] [address] * Phosphorus (03/13/2024 10:00 PM CDT) [facility] Phosphorus, pl 3.1 2.3 - 4.5 mg/dL Blood 03/13/2024 10:0 0 PM CDT 03/13/2024 10:17 PM CDT Chaddtorres Griffin Efe DO LAB BLOOD ORDERABLES Final Result Performing Organization Address City/[facility]/[place] [address] * Magnesium (03/13/2024 10:00 PM CDT) [facility] Magnesium 1.6 1.4 - 2.5 mg/dL Blood 03/13/2024 10:0 0 PM CDT 03/13/2024 10:17 PM CDT Chadd Elias Tre DO LAB BLOOD ORDERABLES Final Result Performing Organization Address City/[facility] [place] [address] * (ABNORMAL) Basic metabolic panel (03/13/2024 10:00 PM CDT) [facility] Sodium 136 135 - 145 mmol/L Potassium, pl 4.3 3.3 - 4.9 mmol/L [facility] Chloride 100 97 - 110 mmol/L [facility] CO2 30 22 - 32 mmol/L [facility] Anion gap 6 2 - 15 mmol/L [facility] BUN 11 6 - 25 mg/dL [facility] Creatinine 0.49(L) 0.60 - 1.10 mg/dL [facility] Glucose 203(H) 70 - 199 mg/dL [facility] Comment: Interpretive Data Fasting glucose >/= 126 [...] 2022. Calcium 8.6 8.5 - 10.3 mg/dL [facility] Blood 03/13/2024 10:0 0 PM CDT 03/13/2024 10:17 PM CDT Chadd Toledo DO LAB BLOOD ORDERABLES Final Result [facility] Department [place] [address] * FL Fluoroscopy < 1 Hour (03/13/2024 9:23 PM CDT) Narrative RAD_PACS_[facility] - 03/13/2024 9:23 PM CDT The images from this study are not interpreted by Radiology. ??Please refer to the physician's procedure / OR operative note. Marcio Tapia MD IMG FLUOROSCOPY PROCEDURES Komal l Result RAD_PACS_[facility] * (ABNORMAL) POC Blood Gas and Chemistries, Arterial - (03/13/2024 8:57 PM CDT) pH, Art POC 7.39 7.35 - 7.45 pCO2, Art POC 48(H) 35 - 45 mmHg [facility] pO2, Art POC 119(H) 83 - 108 mmHg [facility] Na, POC 134(L) 135 - 145 mmol/L [facility] K POC 4.2 3.3 - 4.9 mmol/L [facility] Comment: Interpretive Data Not all point of care methods assess for hemolysis. Confirm with instrument and retest K+ if not consistent with clinical signs and symptoms. Current Interpretive Data was last revised on 2023. Cl, POC 104 97 - 110 mmol/L [facility] Ionized Ca, POC 4.90 4.50 - 5.10 mg/dL [facility] Glucose, POC 226(H) 70 - 199 mg/dL [facility] Lactate, POC 1.6 0.7 - 2.2 mmol/L [facility] SO2 (caleb) arterial 99(H) 90 - 95 % [facility] Base excess, POC 3.5 mmol/L [facility] HCO3, Art POC 29 20 - 30 mmol/L [facility] Hct, POC 32.0(L) 36.3 - 45.3 % [facility] Total Hb, POC 10.7(L) 11.9 - 15.5 g/dL [facility] Blood 03/13/2024 8:57 PM CDT 03/13/2024 8:57 PM CDT us Chadd Toledo DO LAB POCT ORDERABLES - DEVICE Final Result Performing Organization Address City/State/[facility] Co de Phone Number [facility] Department [place] [address] * XR Spine Cervical 2 or 3 [...] it. Electronically signed by: Sushil Contreras M.D. us Marcio Tapia MD IMG XR PROCEDURES Final Result * Transfuse RBC (03/13/2024 7:25 PM CDT) Blood us Rafael Breaux MD BLOOD TRANSFUSION ORDERA BLES Final Result [facility] Department [place] [address] * (ABNORMAL) POC Blood Gas and Chemistries, Arterial - (03/13/2024 7:14 PM CDT) pH, Art POC 7.38 7.35 - 7.45 pCO2, Art POC 47(H) 35 - 45 mmHg [facility] pO2, Art POC 111(H) 83 - 108 mmHg [facility] Na, POC 135 135 - 145 mmol/L [facility] K POC 4.2 3.3 - 4.9 mmol/L [facility] Comment: Interpretive Data Not all point of care methods assess for hemolysis. Confirm with instrument and retest K+ if not consistent with clinical signs and symptoms. Current Interpretive Data was last revised on 2023. Cl, POC 104 97 - 110 mmol/L [facility] Ionized Ca, POC 5.50(H) 4.50 - 5.10 mg/dL [facility] Glucose, POC 218(H) 70 - 199 mg/dL [facility] Lactate, POC 1.7 0.7 - 2.2 mmol/L [facility] SO2 (caleb) arterial 98(H) 90 - 95 % [facility] Base excess, POC 2.2 mmol/L [facility] HCO3, Art POC 28 20 - 30 mmol/L [facility] Hct, POC 30.0(L) 36.3 - 45.3 % [facility] Total Hb, POC 9.9(L) 11.9 - 15.5 g/dL [facility] Blood 03/13/2024 7:14 PM CDT 03/13/2024 7:14 PM CDT us Chadd Toledo DO LAB POCT ORDERABLES - DEVICE Final Result Performing Organization Address City/[facility]/ZIP Co de Phone Number [facility] Department [place] [address] * Transfuse plasma (03/13/2024 6:12 PM CDT) Blood us Rafael Breaux MD BLOOD TRANSFUSION ORDERA BLES Final Result Performing Organization Address City/[facility]/ZIP Co de Phone Number [facility] Department [place] [address] * Transfuse RBC (03/13/2024 5:46 PM CDT) Blood Rafael Breaux MD BLOOD TRANSFUSION ORDERA BLES Final Result Performing Organization Address City/[facility]/ZIP Co de Phone Number [facility] Department [place] [address] * Prepare plasma: 2 Units (03/13/2024 5:45 PM CDT) Pathologist [facility] Product code [id number] Unit Number [id number] [facility] Product Blood Type OPOS [facility] Dispense Status PRESUMED TRANSFUSED [facility] Blood (Blood, Venous) 03/13/2024 5:45 PM CDT 03/13/2024 5:45 PM CDT Narrative [facility] - 03/14/2024 12:46 AM CDT Date required:-20240313 FFP # of Units:-2-Units Reasons:-Immediate need for surgical intervention Rafael Breaux MD BLOOD BANK PRODUCT ORDER LAKESHIA Final Result [facility] Department [place] [address] * (ABNORMAL) POCT prothrombin time (03/13/2024 5:33 PM CDT) [facility] PT, POC 21.1(H) 11.7 - 16.6 sec INR, POC 1.6(H) 0.9 - 1.3 [facility] Blood 03/13/2024 5:33 PM CDT 03/13/2024 5:33 PM CDT Chadd Toledo DO LAB POCT ORDERABLES - DEVICE Final Result [facility] Department [place] [address] * (ABNORMAL) POCT Partial thromboplastin time (PTT) (03/13/2024 5:33 PM CDT) [facility] APTT, POC 28.4(L) 32.5 - 46.1 sec Blood 03/13/2024 5:33 PM CDT 03/13/2024 5:33 PM CDT Chadd Toledo DO LAB POCT ORDERABLES - DEVICE Final Result Performing Organization Address City/[facility]/ZIP Co de Phone Number [facility] Department [place] [address] * (ABNORMAL) POCT platelet count and hematocrit (03/13/2024 5:33 PM CDT) Hematocrit POC 31.3(L) 35.6 - 45.5 % Platelet POC 155 150 - 400 K/cumm [facility] Blood 03/13/2024 5:33 PM CDT 03/13/2024 5:33 PM CDT us Chadd Toledo DO LAB POCT ORDERABLES - DEVICE Final Result Performing Organization Address [facility] Co de Phone Number [facility] Department [place] [address] * (ABNORMAL) POC Blood Gas and Chemistries, Arterial - (03/13/2024 5:33 PM CDT) pH, Art POC 7.39 7.35 - 7.45 pCO2, Art POC 45 35 - 45 mmHg [facility] pO2, Art POC 129(H) 83 - 108 mmHg [facility] Na, POC 135 135 - 145 mmol/L [facility] K POC 4.2 3.3 - 4.9 mmol/L [facility] Comment: Interpretive Data Not all point of care methods assess for hemolysis. Confirm with instrument and retest K+ if not consistent with clinical signs and symptoms. Current Interpretive Data was last revised on 2023. Cl, POC 104 97 - 110 mmol/L [facility] Ionized Ca, POC 4.62 4.50 - 5.10 mg/dL [facility] Glucose, POC 190 70 - 199 mg/dL [facility] Lactate, POC 1.8 0.7 - 2.2 mmol/L [facility] SO2 (caleb) arterial 100(H) 90 - 95 % [facility] Base excess, POC 1.8 mmol/L [facility] HCO3, Art POC 26 20 - 30 mmol/L [facility] Hct, POC 33.0(L) 36.3 - 45.3 % [facility] Total Hb, POC 10.9(L) 11.9 - 15.5 g/dL [facility] Blood 03/13/2024 5:33 PM CDT 03/13/2024 5:33 PM CDT Chadd Toledo DO LAB POCT ORDERABLES - DEVICE Final Result [facility] Department [place] [address] * Critical Care (03/13/2024 5:04 PM CDT) [...] plan with the ICU team and other medical/showroom consultant staff, making frequent assessments and decisions [...] time documenting in the medical record us Carmen Martins MD IN CLINIC/BEDSIDE ORDER LAKESHIA Final Result * POCT glucose (03/13/2024 4:35 PM CDT) Glucose, POC 144 70 - 199 mg/dL Blood 03/13/2024 4:35 PM CDT 03/13/2024 4:35 PM CDT Chadd Toledo DO LAB POCT ORDERABLES - DEVICE Final Result Performing Organization Address [facility]/ZIP Co de Phone Number [facility] [place] [address] * Prepare RBC: 2 Units (03/13/2024 4:20 PM CDT) Pathologist [facility] Product code [id number] Unit Number [id number] [facility] Product Blood Type ONEG [facility] Dispense Status PRESUMED TRANSFUSED [facility] Product code [id number] [facility] Unit Number [id number] [facility] Product Blood Type ONEG [facility] Dispense Status PRESUMED TRANSFUSED [facility] Blood 03/13/2024 4:20 PM CDT 03/13/2024 4:20 PM CDT Narrative [facility] - 03/14/2024 12:46 AM CDT Are special requirements needed? (All products are leukoreduced and CMV- safe)- >No Date required:-[id number] LRRBC # of [id number] Reasons:-Intra-op transfusion} us Rafael Breaux MD BLOOD BANK PRODUCT ORDER LAKESHIA Final Result Performing Organization Address [facility]/ZIP Co de Phone Number [facility] [place] [address] * POCT glucose (03/13/2024 2:53 PM CDT) Glucose, POC 101 70 - 199 mg/dL Blood 03/13/2024 2:53 PM CDT 03/13/2024 2:53 PM CDT Chadd Toledo DO LAB POCT ORDERABLES - DEVICE Final Result Performing Organization Address [facility] Co de Phone Number [facility] [place] [address] * POCT glucose (03/13/2024 2:01 PM CDT) Glucose, POC 114 70 - 199 mg/dL Blood 03/13/2024 2:01 PM CDT 03/13/2024 2:01 PM CDT Chadd Toledo DO LAB POCT ORDERABLES - DEVICE Final Result Performing Organization Address [facility] Co de Phone Number [facility] [place] [address] * POCT glucose (03/13/2024 12:57 PM CDT) Glucose, POC 126 70 - 199 mg/dL Blood 03/13/2024 12:5 7 PM CDT 03/13/2024 12:57 PM CDT Chadd Toledo DO LAB POCT ORDERABLES - DEVICE Final Result Performing Organization Address City/[facility] Co de Phone Number [facility] [place] [address] * POCT glucose (03/13/2024 12:00 PM CDT) Glucose, POC 135 70 - 199 mg/dL Blood 03/13/2024 12:0 0 PM CDT 03/13/2024 12:00 PM CDT Chadd Toledo DO LAB POCT ORDERABLES - DEVICE Final Result Performing Organization Address [facility] Co de Phone Number AJIT [facility] [place] [address] * POCT glucose (03/13/2024 10:57 AM CDT) Glucose, POC 138 70 - 199 mg/dL Blood 03/13/2024 10:5 7 AM CDT 03/13/2024 10:57 AM CDT us Chadd Toledo DO LAB POCT ORDERABLES - DEVICE Final Result Performing Organization Address [place] [facility] de Phone Number [facility] [place] [address] * POCT glucose (03/13/2024 9:55 AM CDT) Glucose, POC 174 70 - 199 mg/dL Blood 03/13/2024 9:55 AM CDT 03/13/2024 9:55 AM CDT us Chadd Toledo DO LAB POCT ORDERABLES - DEVICE Final Result Performing Organization Address [facility] de Phone Number AJIT [facility] Department [place] [address] * POCT glucose (03/13/2024 8:57 AM CDT) Glucose, POC 163 70 - 199 mg/dL Blood 03/13/2024 8:57 AM CDT 03/13/2024 8:57 AM CDT Chadd Toledo DO LAB POCT ORDERABLES - DEVICE Final Result Performing Organization Address [facility] Co de Phone Number [facility] [place] [address] * POCT glucose (03/13/2024 8:05 AM CDT) Glucose, POC 168 70 - 199 mg/dL Blood 03/13/2024 8:05 AM CDT 03/13/2024 8:05 AM CDT Chaddtorres Griffin Efetorres DO LAB POCT ORDERABLES - DEVICE Final Result Performing Organization Address [facility] [place] [address] * POCT glucose (03/13/2024 7:12 AM CDT) Glucose, POC 192 70 - 199 mg/dL Blood 03/13/2024 7:12 AM CDT 03/13/2024 7:12 AM CDT Chadd Elias Tre DO LAB POCT ORDERABLES - DEVICE Final Result Performing Organization Address [facility] [place] [address] * XR Chest 1 View (03/13/2024 7:10 [...] POCT ORDERABLES - DEVICE Final Result AJIT [facility] [place] [address] * Lidocaine level (03/13/2024 5:50 AM CDT) Lidocaine (Xylocaine) 2.1 1.5 - 5.0 mcg/mL Blood 03/13/2024 5:50 AM CDT 03/13/2024 6:05 AM CDT Narrative AJIT [facility] 03/13/2024 6:29 AM CDT Draw 24 hours after infusion started. Chadd Elias Tre CARR LAB BLOOD ORDERABLES Final Result Performing Organization Address [facility] Co de Phone Number [facility] [place] [address] * POCT glucose (03/13/2024 5:02 AM CDT) Glucose, POC 187 70 - 199 mg/dL Blood 03/13/2024 5:02 AM CDT 03/13/2024 5:02 AM CDT Chadd Toledo DO LAB POCT ORDERABLES - DEVICE Final Result Performing Organization Address [facility] de Phone Number [facility] [place] [address] * POCT glucose (03/13/2024 3:56 AM CDT) Glucose, POC 152 70 - 199 mg/dL Blood 03/13/2024 3:56 AM CDT 03/13/2024 3:56 AM CDT Chadd Elias Tre CARR LAB POCT ORDERABLES - DEVICE Final Result Performing Organization Address [facility] [place] [address] * POCT glucose (03/13/2024 3:04 AM CDT) Glucose, POC 178 70 - 199 mg/dL Blood 03/13/2024 3:04 AM CDT 03/13/2024 3:04 AM CDT Chadd Toledo DO LAB POCT ORDERABLES - DEVICE Final Result Performing Organization Address [facility] Co de Phone Number AJIT [facility] [place] [address] * (ABNORMAL) POCT glucose (03/13/2024 1:55 AM CDT) Glucose, POC 203(H) 70 - 199 mg/dL Blood 03/13/2024 1:55 AM CDT 03/13/2024 1:55 AM CDT Chadd Toledo DO LAB POCT ORDERABLES - DEVICE Final Result Performing Organization Address [facility] [place] [address] * POCT glucose (03/13/2024 12:57 AM CDT) Glucose, POC 119 70 - 199 mg/dL Blood 03/13/2024 12:5 7 AM CDT 03/13/2024 12:57 AM CDT Chadd Toledo DO LAB POCT ORDERABLES - DEVICE Final Result Performing Organization Address [facility] de Phone Number AJIT [facility] [place] [address] * POCT glucose (03/12/2024 11:22 PM CDT) Glucose, POC 140 70 - 199 mg/dL Blood 03/12/2024 11:2 2 PM CDT 03/12/2024 11:22 PM CDT Chadd Toledo DO LAB POCT ORDERABLES - DEVICE Final Result Performing Organization Address [facility] Co de Phone Number AJIT [facility] [place] [address] * POCT glucose (03/12/2024 10:40 PM CDT) Glucose, POC 155 70 - 199 mg/dL Blood 03/12/2024 10:4 0 PM CDT 03/12/2024 10:40 PM CDT Chadd Toledo DO LAB POCT ORDERABLES - DEVICE Final Result AJIT [facility] Department [place] [address] * eGFR (03/12/2024 7:51 PM CDT) eGFR [...] BLOOD ORDERABLES Final Result Performing Organization Address [facility] Co de Phone Number [facility] [place] [address] * aPTT (03/12/2024 7:51 PM CDT) aPTT [...] ORDERABLES Komal l Result Performing Organization Address [facility] [place] [address] * Protime-INR (03/12/2024 7:51 PM CDT) PT 12.9 9.7 - 13.0 sec INR 1.19 0.90 - 1.20 [facility] Comment: Interpretive data Oral anticoagulant therapeutic ranges: Venous thromboembolism prophylaxis or treatment: 2.0-3.0 CARDIOLOGY Standard range: 2.0-3.0 High-intensity range: 2.5-3.5 Refer to indication-specific guidelines for appropriate target ranges for prosthetic heart valve replacement. Current interpretive data was last revised on 2019. Blood 03/12/2024 7:51 PM CDT 03/12/2024 8:33 PM CDT Jane Hoover MD LAB BLOOD ORDERABLES Komal l Result Performing Organization Address [facility] Co de Phone Number [place] [address] * (ABNORMAL) CBC without differential (03/12/2024 7:51 PM CDT) [facility] WBC 4.8 3.8 - 9.9 K/cumm Hgb 10.5(L) 11.9 - 15.5 g/dL [facility] Hct 31.4(L) 35.6 - 45.5 % [facility] Plt 152 150 - 400 K/cumm [facility] MPV 9.1 9.1 - 12.3 fL [facility] RBC 3.79(L) 3.90 - 5.20 M/cumm [facility] MCV 82.8 81.3 - 96.4 fL [facility] MCH 27.7 27.1 - 33.3 pg [facility] MCHC 33.4 32.3 - 35.7 g/dL [facility] RDW CV 13.9 11.1 - 14.9 % [facility] RDW SD 41.3 35.7 - 48.1 fL [facility] NRBC abs 0.00 0.00 - 0.01 K/cumm [facility] Blood 03/12/2024 7:51 PM CDT 03/12/2024 8:19 PM CDT Chadd Toledo DO LAB BLOOD ORDERABLES Final Result Performing Organization Address City/[facility] Co de Phone Number [facility] [place] [address] * Phosphorus (03/12/2024 7:51 PM CDT) [facility] Phosphorus, pl 3.2 2.3 - 4.5 mg/dL Blood 03/12/2024 7:51 PM CDT 03/12/2024 8:19 PM CDT Chadd Toledo DO LAB BLOOD ORDERABLES Final Result [facility] [place] [address] * Magnesium (03/12/2024 7:51 PM CDT) Pathologist [facility] Magnesium 1.8 1.4 - 2.5 mg/dL Blood 03/12/2024 7:51 PM CDT 03/12/2024 8:19 PM CDT Chadd Toledo DO LAB BLOOD ORDERABLES Final Result [facility] Department [place] [address] * (ABNORMAL) Basic metabolic panel (03/12/2024 7:51 PM CDT) [facility] Sodium 136 135 - 145 mmol/L Potassium, pl 4.0 3.3 - 4.9 mmol/L [facility] Chloride 98 97 - 110 mmol/L [facility] CO2 30 22 - 32 mmol/L [facility] Anion gap 8 2 - 15 mmol/L [facility] BUN 10 6 - 25 mg/dL [facility] Creatinine 0.69 0.60 - 1.10 mg/dL [facility] Glucose 224(H) 70 - 199 mg/dL [facility] Comment: Interpretive Data Fasting glucose >/= 126 [...] 2022. Calcium 8.6 8.5 - 10.3 mg/dL [facility] Blood 03/12/2024 7:51 PM CDT 03/12/2024 8:19 PM CDT Chadd Elias Craft DO LAB BLOOD ORDERABLES Final Result Performing Organization Address [facility] Co de Phone Number AJIT [facility] [place] [address] * (ABNORMAL) POCT glucose (03/12/2024 7:50 PM CDT) Glucose, POC 228(H) 70 - 199 mg/dL Blood 03/12/2024 7:50 PM CDT 03/12/2024 7:50 PM CDT Chadd Toledo DO LAB POCT ORDERABLES - DEVICE Final Result Performing Organization Address [facility] Co de Phone Number [facility] [place] [address] * POCT glucose (03/12/2024 5:58 PM CDT) Glucose, POC 167 70 - 199 mg/dL Blood 03/12/2024 5:58 PM CDT 03/12/2024 5:58 PM CDT Chadd Toledo DO LAB POCT ORDERABLES - DEVICE Final Result Performing Organization Address [facility] Co de Phone Number [facility] [place] [address] * (ABNORMAL) POCT glucose (03/12/2024 5:01 PM CDT) Glucose, POC 221(H) 70 - 199 mg/dL Blood 03/12/2024 5:01 PM CDT 03/12/2024 5:01 PM CDT Chadd Toledo DO LAB POCT ORDERABLES - DEVICE Final Result Performing Organization Address City/[facility]/ZIP Co de Phone Number AJIT [facility] [place] [address] * (ABNORMAL) POCT glucose (03/12/2024 4:19 PM CDT) Glucose, POC 215(H) 70 - 199 mg/dL Blood 03/12/2024 4:19 PM CDT 03/12/2024 4:19 PM CDT Chadd Toledo DO LAB POCT ORDERABLES - DEVICE Final Result Performing Organization Address [facility] Co de Phone Number [facility] [place] [address] * (ABNORMAL) POCT glucose (03/12/2024 3:08 PM CDT) Glucose, POC 278(H) 70 - 199 mg/dL Blood 03/12/2024 3:08 PM CDT 03/12/2024 3:08 PM CDT Chaddtorres Griffin Tre DO LAB POCT ORDERABLES - DEVICE Final Result Performing Organization Address [facility] de Phone Number [facility] [place] [address] * Critical Care (03/12/2024 2:30 PM CDT) [...] plan with the ICU team and other medical/showroom consultant staff, making frequent assessments and decisions [...] Glucose, POC 161 70 - 199 mg/dL [facility] Blood 03/12/2024 1:06 PM CDT 03/12/2024 1:06 PM CDT Chadd Toledo DO LAB POCT ORDERABLES - DEVICE Final Result Performing Organization Address [facility] Co de Phone Number [facility] Department [place] [address] * POCT glucose (03/12/2024 11:21 AM CDT) Glucose, POC 116 70 - 199 mg/dL [facility] Blood 03/12/2024 11:2 1 AM CDT 03/12/2024 11:21 AM CDT Chadd Toledo DO LAB POCT ORDERABLES - [place] [address] * POCT glucose (03/12/2024 9:15 AM CDT) Glucose, POC 114 70 - 199 mg/dL Blood 03/12/2024 9:15 AM CDT 03/12/2024 9:15 AM CDT Chadd Toledo DO LAB POCT ORDERABLES - DEVICE Final Result Performing Organization Address [facility] [place] [address] * POCT glucose (03/12/2024 7:11 AM CDT) Glucose, POC 127 70 - 199 mg/dL Blood 03/12/2024 7:11 AM CDT 03/12/2024 7:11 AM CDT Chadd Toledo DO LAB POCT ORDERABLES - DEVICE Final Result Performing Organization Address [facility] [place] [address] * Lidocaine level (03/12/2024 6:17 AM CDT) Lidocaine (Xylocaine) 1.7 1.5 - 5.0 mcg/mL Blood 03/12/2024 6:17 AM CDT 03/12/2024 6:44 AM CDT Narrative [facility] - 03/12/2024 8:45 AM CDT Draw 24 hours after infusion started. Chadd Toledo DO LAB BLOOD ORDERABLES Final Result Performing Organization Address City/[facility]/ZIP Co de Phone Number [facility] [place] [address] * POCT glucose (03/12/2024 6:16 AM CDT) Glucose, POC 126 70 - 199 mg/dL Blood 03/12/2024 6:16 AM CDT 03/12/2024 6:16 AM CDT Chadd Toledo DO LAB POCT ORDERABLES - DEVICE Final Result Performing Organization Address [facility] Co de Phone Number [facility] [place] [address] * POCT glucose (03/12/2024 5:05 AM CDT) Glucose, POC 146 70 - 199 mg/dL Blood 03/12/2024 5:05 AM CDT 03/12/2024 5:05 AM CDT Chadd Toledo DO LAB POCT ORDERABLES - DEVICE Final Result Performing Organization Address [facility] de Phone Number [facility] [place] [address] * POCT glucose (03/12/2024 4:19 AM CDT) Glucose, POC 155 70 - 199 mg/dL Blood 03/12/2024 4:19 AM CDT 03/12/2024 4:19 AM CDT Chadd Toledo DO LAB POCT ORDERABLES - DEVICE Final Result Performing Organization Address [facility] Co de Phone Number [facility] [place] [address] * POCT glucose (03/12/2024 3:10 AM CDT) Glucose, POC 195 70 - 199 mg/dL Blood 03/12/2024 3:10 AM CDT 03/12/2024 3:10 AM CDT us Chadd Toledo DO LAB POCT ORDERABLES - DEVICE Final Result Performing Organization Address [facility] Co de Phone Number AJIT [facility] [place] [address] * POCT glucose (03/12/2024 1:07 AM CDT) Glucose, POC 165 70 - 199 mg/dL Blood 03/12/2024 1:07 AM CDT 03/12/2024 1:07 AM CDT us Chadd Toledo DO LAB POCT ORDERABLES - DEVICE Final Result Performing Organization Address [facility] de Phone Number [facility] [place] [address] * POCT glucose (03/12/2024 12:28 AM CDT) Glucose, POC 181 70 - 199 mg/dL Blood 03/12/2024 12:2 8 AM CDT 03/12/2024 12:28 AM CDT us Chadd Toledo DO LAB POCT ORDERABLES - DEVICE Final Result Performing Organization Address [facility] Co de Phone Number AJIT [facility] Department [place] [address] * POCT glucose (03/11/2024 11:04 PM CDT) Glucose, POC 172 70 - 199 mg/dL Blood 03/11/2024 11:0 4 PM CDT 03/11/2024 11:04 PM CDT us Chadd Toledo DO LAB POCT ORDERABLES - DEVICE Final Result Performing Organization Address [facility] [place] [address] * (ABNORMAL) POCT glucose (03/11/2024 10:08 PM CDT) Glucose, POC 208(H) 70 - 199 mg/dL Blood 03/11/2024 10:0 8 PM CDT 03/11/2024 10:08 PM CDT Chadd Toledo DO LAB POCT ORDERABLES - DEVICE Final Result Performing Organization Address [facility]/[place] [address] * (ABNORMAL) POCT glucose (03/11/2024 9:06 PM CDT) [facility] Glucose, POC 245(H) 70 - 199 mg/dL Blood 03/11/2024 9:06 PM CDT 03/11/2024 9:06 PM CDT Chadd Toledo DO LAB POCT ORDERABLES - DEVICE Final Result Performing Organization Address [facility] [place] [address] * Type and screen (03/11/2024 9:03 PM CDT) [facility] Anselmo, indirect Negative ABO Rh O Negative [facility] Blood 03/11/2024 9:03 PM CDT 03/11/2024 9:16 PM CDT Narrative [facility] - 03/11/2024 10:16 PM CDT Has the patient had Daratumumab or Isatuximab in the past 6 months?->Unknown Chadd Toledo DO LAB BLOOD BANK TEST O RDERABLES Final Result Performing Organization Address City/[facility]/ZIP Co de Phone Number [facility] [place] [address] * (ABNORMAL) Hemoglobin A1c (03/11/2024 8:59 PM CDT) [facility] Hgb A1C 8.9(H) 4.0 - 5.6 % Estimated Average Glucose 209 mg/dL [facility]IT TRAN Comment: The ADA recommends reporting an estimated [...] BLOOD ORDERABLES Final Result Performing Organization Address City/State/[facility] Phone Number [facility] Department [place] [address] * eGFR (03/11/2024 8:59 PM CDT) [facility] eGFR >90 >=60 mL/min/1. 73 m2 [...] PM CDT 03/11/2024 9:18 PM CDT us Chaddtorres Griffin Tre DO LAB BLOOD ORDERABLES Final Result [facility] Department [place] [address] * Differential, auto (03/11/2024 8:59 PM CDT) Neutrophil abs 3.5 1.5 - 6.5 K/cumm Imm gran abs 0.0 0.0 - 0.1 K/cumm [facility] Lymphocyte abs 1.1 0.8 - 3.3 K/cumm [facility] Monocyte abs 0.4 0.2 - 0.8 K/cumm [facility] Eosinophil abs 0.1 0.0 - 0.5 K/cumm [facility] Basophil abs 0.0 0.0 - 0.1 K/cumm [facility] Neutrophil pct 69.6 % [facility] Comment: Interpretive Data Percent cell count reference ranges are not reported, since discordance with absolute values may lead to misinterpretation of CBC data. Current Interpretive Data was last revised on 2017. Imm gran pct 0.4 % [facility] Comment: Interpretive Data Percent cell count reference ranges are not reported, since discordance with absolute values may lead to misinterpretation of CBC data. Current Interpretive Data was last revised on 2017. Lymphocyte pct 20.9 % [facility] Comment: Interpretive Data Percent cell count reference ranges are not reported, since discordance with absolute values may lead to misinterpretation of CBC data. Current Interpretive Data was last revised on 2017. Monocyte pct 6.9 % [facility] Comment: Interpretive Data Percent cell count reference ranges are not reported, since discordance with absolute values may lead to misinterpretation of CBC data. Current Interpretive Data was last revised on 2017. Eosinophil pct 1.6 % [facility] Comment: Interpretive Data Percent cell count reference ranges are not reported, since discordance with absolute values may lead to misinterpretation of CBC data. Current Interpretive Data was last revised on 2017. Basophil pct 0.6 % [facility] Comment: Interpretive Data Percent cell count reference ranges are not reported, since discordance with absolute values may lead to misinterpretation of CBC data. Current Interpretive Data was last revised on 2017. Blood 03/11/2024 8:59 PM CDT 03/11/2024 9:18 PM CDT us Chadd Toledo DO LAB BLOOD ORDERABLES Final Result [facility] Department [place] [address] * (ABNORMAL) CBC with auto differential (03/11/2024 8:59 PM CDT) WBC 5.1 3.8 - 9.9 K/cumm Hgb 10.2(L) 11.9 - 15.5 g/dL [facility] Hct 30.6(L) 35.6 - 45.5 % [facility] Plt 145(L) 150 - 400 K/cumm [facility] MPV 8.9(L) 9.1 - 12.3 fL [facility] RBC 3.66(L) 3.90 - 5.20 M/cumm [facility] MCV 83.6 81.3 - 96.4 fL [facility] MCH 27.9 27.1 - 33.3 pg [facility] MCHC 33.3 32.3 - 35.7 g/dL [facility] RDW CV 13.6 11.1 - 14.9 % [facility] RDW SD 41.1 35.7 - 48.1 fL [facility] NRBC abs 0.00 0.00 - 0.01 K/cumm [facility] Blood 03/11/2024 8:59 PM CDT 03/11/2024 9:18 PM CDT Chaddtorres Toledo LAB BLOOD ORDERABLES Final Result Performing Organization Address [facility] de Phone Number [facility] [place] [address] * Phosphorus (03/11/2024 8:59 PM CDT) [facility] Phosphorus, pl 3.4 2.3 - 4.5 mg/dL Blood 03/11/2024 8:59 PM CDT 03/11/2024 9:18 PM CDT Chadd Elias Tre LAB BLOOD ORDERABLES Final Result Performing Organization Address [facility] de Phone Number [facility] Department [place] [address] * Magnesium (03/11/2024 8:59 PM CDT) [facility] Magnesium 1.7 1.4 - 2.5 mg/dL Blood 03/11/2024 8:59 PM CDT 03/11/2024 9:18 PM CDT Chadd Griffin Efetorres LAB BLOOD ORDERABLES Final Result Performing Organization Address [facility] de Phone Number [facility] [place] [address] * (ABNORMAL) Basic metabolic panel (03/11/2024 8:59 PM CDT) [facility] Sodium 137 135 - 145 mmol/L Potassium, pl 4.0 3.3 - 4.9 mmol/L [facility] Chloride 102 97 - 110 mmol/L [facility] CO2 28 22 - 32 mmol/L [facility] Anion gap 7 2 - 15 mmol/L [facility] BUN 11 6 - 25 mg/dL [facility] Creatinine 0.55(L) 0.60 - 1.10 mg/dL [facility] Glucose 239(H) 70 - 199 mg/dL [facility] Comment: Interpretive Data Fasting glucose >/= 126 [...] 2022. Calcium 8.4(L) 8.5 - 10.3 mg/dL [facility] Blood 03/11/2024 8:59 PM CDT 03/11/2024 9:18 PM CDT us Chadd Toledo DO LAB BLOOD ORDERABLES Final Result Performing Organization Address City/[facility]/ZIP Co de Phone Number [facility] [place] [address] * (ABNORMAL) POCT glucose (03/11/2024 7:53 PM CDT) [facility] Glucose, POC 242(H) 70 - 199 mg/dL Comment:Glu2: RN/MD Notified Glucose comment 1 Glu2: RN/MD Notified [facility] Blood 03/11/2024 7:53 PM CDT 03/11/2024 7:53 PM CDT Chadd Toledo DO LAB POCT ORDERABLES - DEVICE Final Result [facility] [place] [address] * XR Shoulder Right 2 or More [...] POCT ORDERABLES - DEVICE Final Result [facility]IT [facility] [place] [address] * Critical Care (03/11/2024 6:42 PM CDT) [...] plan with the ICU team and other medical/showroom consultant staff, making frequent assessments and decisions [...] LAB POCT ORDERABLES - DEVICE Final Result [facility] [place] [address] * GA INSJ NON-TUNNELED CENTRAL VENOUS CATH AGE 7 YR/> (03/11/2024 5:11 PM CDT) Narrative Eloise Knapp MD - 03/11/2024 5:11 PM CDT Inge Pepper PA ? 03/11/2024 ??6:28 PM Central Line Insertion Date/Time: 03/11/2024 5:11 PM Performed by: Inge Pepper PA Authorized by: Inge Pepper PA ?? [place] Protocol: RN Notified of Procedure: yes ?? [...] matched to patient identification: n/a ?? Responsible republican for transporting specimen(s) to lab determined: n/a ?? us Ineg SIFUENTES IN CLINIC/BEDSIDE ORDERA BLES Final Result * GA ARTL CATHJ/CANNULJ MNTR/TRANSFUSION SPX PRQ (03/11/2024 5:09 PM CDT) Narrative Eloise Knapp MD - 03/11/2024 5:09 PM CDT Inge Pepper PA ? 03/11/2024 ??5:11 PM Arterial Line Insertion Date/Time: 03/11/2024 5:09 PM Performed by: Inge Pepper PA Authorized by: Inge Pepper PA ?? [place] Protocol: RN Notified of Procedure: yes ?? [...] matched to patient identification: n/a ?? Responsible republican for transporting specimen(s) to lab determined: n/a ?? Inge SIFUENTES IV THERAPY ORDERABLES Fi nal Result * POCT glucose (03/11/2024 3:12 PM CDT) Glucose, POC 159 70 - 199 mg/dL Blood 03/11/2024 3:12 PM CDT 03/11/2024 3:12 PM CDT Chadd Toledo DO LAB POCT ORDERABLES - DEVICE Final Result AJIT [facility] [place] [address] * (ABNORMAL) CRP (acute phase) (03/11/2024 3:10 PM CDT) Pathologist [facility] [place] CRP 48.6(H) <=10.0 mg/L Blood 03/11/2024 3:10 PM CDT 03/11/2024 3:29 PM CDT Chadd Toledo DO LAB BLOOD ORDERABLES Final Result Performing Organization Address City/[facility]/ZIP Co de Phone Number AJIT [facility] [place] [address] * Lactate (03/11/2024 3:10 PM CDT) Lactate 1.4 0.7 - 2.0 mmol/L Blood 03/11/2024 3:10 PM CDT 03/11/2024 3:29 PM CDT Chadd Toledo DO LAB BLOOD ORDERABLES Final Result Performing Organization Address [facility] Co de Phone Number AJIT [facility] [place] [address] * POCT glucose (03/11/2024 1:22 PM CDT) Glucose, POC 152 70 - 199 mg/dL Blood 03/11/2024 1:22 PM CDT 03/11/2024 1:22 PM CDT us Chadd Toledo DO LAB POCT ORDERABLES - DEVICE Final Result Performing Organization Address [facility] de Phone Number [facility] [place] [address] * POCT glucose (03/11/2024 11:57 AM CDT) Glucose, POC 122 70 - 199 mg/dL Blood 03/11/2024 11:5 7 AM CDT 03/11/2024 11:57 AM CDT Chadd Toledo DO LAB POCT ORDERABLES - DEVICE Final Result Performing Organization Address [facility] [place] [address] * POCT glucose (03/11/2024 9:04 AM CDT) Glucose, POC 135 70 - 199 mg/dL Blood 03/11/2024 9:04 AM CDT 03/11/2024 9:04 AM CDT Chadd Toledo DO LAB POCT ORDERABLES - DEVICE Final Result AJIT TRAN [facility] Department [place] [address] * POCT glucose (03/11/2024 7:18 AM CDT) Glucose, POC 98 70 - 199 mg/dL Blood 03/11/2024 7:18 AM CDT 03/11/2024 7:18 AM CDT us Chadd Toledo DO LAB POCT ORDERABLES - DEVICE Final Result Performing Organization Address [facility] Co de Phone Number AJIT TRAN [facility] [place] [address] * XR Chest 1 View (03/11/2024 6:40 [...] it. Electronically signed by: Marcella Woodward M.D. Chadd Toledo DO IMG XR PROCEDURES Fin al Result * POCT glucose (03/11/2024 6:34 AM CDT) Glucose, POC 115 70 - 199 mg/dL Blood 03/11/2024 6:34 AM CDT 03/11/2024 6:34 AM CDT Chadd Toledo DO LAB POCT ORDERABLES - DEVICE Final Result Performing Organization Address [facility] de Phone Number [facility] [place] [address] * POCT glucose (03/11/2024 5:16 AM CDT) Glucose, POC 84 70 - 199 mg/dL Blood 03/11/2024 5:16 AM CDT 03/11/2024 5:16 AM CDT Chadd Toledo DO LAB POCT ORDERABLES - DEVICE Final Result Performing Organization Address [facility] de Phone Number [facility] [place] [address] * POCT glucose (03/11/2024 3:00 AM CDT) Glucose, POC 102 70 - 199 mg/dL Blood 03/11/2024 3:00 AM CDT 03/11/2024 3:00 AM CDT Chadd Toledo DO LAB POCT ORDERABLES - DEVICE Final Result Performing Organization Address [facility] de Phone Number [facility] Department [place] [address] * POCT glucose (03/11/2024 1:13 AM CDT) Glucose, POC 117 70 - 199 mg/dL Blood 03/11/2024 1:13 AM CDT 03/11/2024 1:13 AM CDT Chadd Elias Toledo DO LAB POCT ORDERABLES - DEVICE Final Result Performing Organization Address [facility] Phone Number [facility] [place] [address] * Critical Care (03/10/2024 11:48 PM CDT) [...] plan with the ICU team and other medical/showroom consultant staff, making frequent assessments and decisions [...] - DEVICE Final Result Performing Organization Address [facility] Co de Phone Number [facility] [place] [address] * POCT glucose (03/10/2024 9:02 PM CDT) Glucose, POC 174 70 - 199 mg/dL Blood 03/10/2024 9:02 PM CDT 03/10/2024 9:02 PM CDT Chadd Toledo DO LAB POCT ORDERABLES - DEVICE Final Result Performing Organization Address [facility] Co de Phone Number [facility] [place] [address] * eGFR (03/10/2024 7:44 PM CDT) eGFR >90 >=60 mL/min/1. 73 [...] DO LAB BLOOD ORDERABLES Final Result AJIT [facility] Department of Laboratories [place], [place] [id number] * Phosphorus (03/10/2024 7:44 PM CDT) Pathologist [facility] [place] Phosphorus, pl 2.7 2.3 - 4.5 mg/dL Blood 03/10/2024 7:44 PM CDT 03/10/2024 8:00 PM CDT Chadd Toledo DO LAB BLOOD ORDERABLES Final Result AJIT [facility] [place] [address] * Magnesium (03/10/2024 7:44 PM CDT) Pathologist [facility] [place] Magnesium 2.0 1.4 - 2.5 mg/dL Blood 03/10/2024 7:44 PM CDT 03/10/2024 8:00 PM CDT Chadd Toledo LAB BLOOD ORDERABLES Final Result Performing Organization Address [facility] Co de Phone Number AJIT [facility] [place] [address] * (ABNORMAL) Basic metabolic panel (03/10/2024 7:44 PM CDT) [facility] Sodium 138 135 - 145 mmol/L Potassium, pl 4.3 3.3 - 4.9 mmol/L [facility] Chloride 104 97 - 110 mmol/L [facility] CO2 27 22 - 32 mmol/L [facility] Anion gap 7 2 - 15 mmol/L [facility] BUN 14 6 - 25 mg/dL [facility] Creatinine 0.49(L) 0.60 - 1.10 mg/dL [facility] Glucose 148 70 - 199 mg/dL [facility] Comment: Interpretive Data Fasting glucose >/= 126 [...] 2022. Calcium 7.9(L) 8.5 - 10.3 mg/dL [facility] Blood 03/10/2024 7:44 PM CDT 03/10/2024 8:00 PM CDT Chadd Toledo DO LAB BLOOD ORDERABLES Final Result Performing Organization Address [facility] Co de Phone Number [facility] Department [place] [address] * (ABNORMAL) CBC without differential (03/10/2024 7:44 PM CDT) [facility] WBC 4.6 3.8 - 9.9 K/cumm Hgb 10.3(L) 11.9 - 15.5 g/dL [facility] Hct 31.5(L) 35.6 - 45.5 % [facility] Plt 110(L) 150 - 400 K/cumm [facility] MPV 8.7(L) 9.1 - 12.3 fL [facility] RBC 3.71(L) 3.90 - 5.20 M/cumm [facility] MCV 84.9 81.3 - 96.4 fL [facility] MCH 27.8 27.1 - 33.3 pg [facility] MCHC 32.7 32.3 - 35.7 g/dL [facility] RDW CV 14.0 11.1 - 14.9 % [facility] RDW SD 43.5 35.7 - 48.1 fL [facility] NRBC abs 0.00 0.00 - 0.01 K/cumm [facility] Blood 03/10/2024 7:44 PM CDT 03/10/2024 8:00 PM CDT Chadd Toledo DO LAB BLOOD ORDERABLES Final Result Performing Organization Address City/[facility]/ZIP Co de Phone Number [facility] Department [place] [address] * POCT glucose (03/10/2024 7:10 PM CDT) Pathologist [facility] [place] Glucose, POC 148 70 - 199 mg/dL Blood 03/10/2024 7:10 PM CDT 03/10/2024 7:10 PM CDT us Chadd Toledo DO LAB POCT ORDERABLES - DEVICE Final Result Performing Organization Address [facility] Co de Phone Number [facility] [place] [address] * POCT glucose (03/10/2024 5:08 PM CDT) Glucose, POC 113 70 - 199 mg/dL Blood 03/10/2024 5:08 PM CDT 03/10/2024 5:08 PM CDT us Chadd Toledo DO LAB POCT ORDERABLES - DEVICE Final Result Performing Organization Address [facility] de Phone Number [facility] [place] [address] * POCT glucose (03/10/2024 4:03 PM CDT) Glucose, POC 109 70 - 199 mg/dL Blood 03/10/2024 4:03 PM CDT 03/10/2024 4:03 PM CDT Chadd Toledo DO LAB POCT ORDERABLES - DEVICE Final Result Performing Organization Address [facility] de Phone Number [facility] [place] [address] * POCT glucose (03/10/2024 3:12 PM CDT) Glucose, POC 123 70 - 199 mg/dL Blood 03/10/2024 3:12 PM CDT 03/10/2024 3:12 PM CDT Chadd Toledo DO LAB POCT ORDERABLES - DEVICE Final Result AJIT TRAN [facility] Department [place] [address] * POCT glucose (03/10/2024 2:05 PM CDT) Pathologist [facility] [place] Glucose, POC 110 70 - 199 mg/dL Blood 03/10/2024 2:05 PM CDT 03/10/2024 2:05 PM CDT Chadd Toledo DO LAB POCT ORDERABLES - DEVICE Final Result Performing Organization Address [facility] Co de Phone Number AJIT TRAN [facility] Department [place] [address] * eGFR (03/10/2024 12:13 PM CDT) [facility] eGFR >90 >=60 mL/min/1. 73 m2 [...] SIFUENTES LAB BLOOD ORDERABLES F inal Result [facility] Department [place] [address] * (ABNORMAL) Basic metabolic panel (03/10/2024 12:13 PM CDT) [facility] Sodium 138 135 - 145 mmol/L Potassium, pl 3.3 3.3 - 4.9 mmol/L [facility] Chloride 105 97 - 110 mmol/L [facility] CO2 26 22 - 32 mmol/L [facility] Anion gap 7 2 - 15 mmol/L [facility] BUN 17 6 - 25 mg/dL [facility] Creatinine 0.49(L) 0.60 - 1.10 mg/dL [facility] Glucose 102 70 - 199 mg/dL [facility] Comment: Interpretive Data Fasting glucose >/= 126 [...] 2022. Calcium 7.5(L) 8.5 - 10.3 mg/dL [facility] Blood 03/10/2024 12:1 3 PM CDT 03/10/2024 12:26 PM CDT Brooke SIFUENTES LAB BLOOD ORDERABLES F inal Result Performing Organization Address City/[facility]/ZIP Co de Phone Number [facility] [place] [address] * POCT glucose (03/10/2024 12:07 PM CDT) Glucose, POC 112 70 - 199 mg/dL Blood 03/10/2024 12:0 7 PM CDT 03/10/2024 12:07 PM CDT Chadd Toledo DO LAB POCT ORDERABLES - [place] [address] * POCT glucose (03/10/2024 11:07 AM CDT) Glucose, POC 151 70 - 199 mg/dL Blood 03/10/2024 11:0 7 AM CDT 03/10/2024 11:07 AM CDT us Chadd Toledo DO LAB POCT ORDERABLES - DEVICE Final Result Performing Organization Address City/[facility]/[place] [address] * POCT glucose (03/10/2024 10:17 AM CDT) Glucose, POC 111 70 - 199 mg/dL Blood 03/10/2024 10:1 7 AM CDT 03/10/2024 10:17 AM CDT Chadd Toledo DO LAB POCT ORDERABLES - DEVICE Final Result Performing Organization Address City/[facility]/[place] [address] * POCT glucose (03/10/2024 9:25 AM CDT) Glucose, POC 116 70 - 199 mg/dL Blood 03/10/2024 9:25 AM CDT 03/10/2024 9:25 AM CDT us Chadd Toledo DO LAB POCT ORDERABLES - DEVICE Final Result CERNER [facility] Department [place] [address] * Critical Care (03/10/2024 8:55 AM CDT) [...] plan with the ICU team and other medical/showroom consultant staff, making frequent assessments and decisions [...] 8:08 AM CDT 03/10/2024 8:08 AM CDT Chadd Toledo DO LAB POCT ORDERABLES - DEVICE Final Result Performing Organization Address [facility] Co de Phone Number [facility] [place] [address] * POCT glucose (03/10/2024 7:21 AM CDT) Glucose, POC 128 70 - 199 mg/dL Blood 03/10/2024 7:21 AM CDT 03/10/2024 7:21 AM CDT Chadd Toledo DO LAB POCT ORDERABLES - DEVICE Final Result Performing Organization Address [facility] de Phone Number [facility] [place] [address] * POCT glucose (03/10/2024 6:10 AM CDT) Glucose, POC 120 70 - 199 mg/dL Blood 03/10/2024 6:10 AM CDT 03/10/2024 6:10 AM CDT Chadd Toledo DO LAB POCT ORDERABLES - DEVICE Final Result Performing Organization Address [facility] Co de Phone Number [facility] [place] [address] * POCT glucose (03/10/2024 4:16 AM CDT) Glucose, POC 127 70 - 199 mg/dL Blood 03/10/2024 4:16 AM CDT 03/10/2024 4:16 AM CDT us Chadd Toledo DO LAB POCT ORDERABLES - DEVICE Final Result Performing Organization Address [facility] Co de Phone Number AJIT [facility] [place] [address] * POCT glucose (03/10/2024 3:23 AM CDT) Glucose, POC 114 70 - 199 mg/dL Blood 03/10/2024 3:23 AM CDT 03/10/2024 3:23 AM CDT us Chadd Toledo DO LAB POCT ORDERABLES - DEVICE Final Result Performing Organization Address [facility] de Phone Number [facility] [place] [address] * POCT glucose (03/10/2024 2:07 AM CDT) Glucose, POC 109 70 - 199 mg/dL Blood 03/10/2024 2:07 AM CDT 03/10/2024 2:07 AM CDT us Chadd Toledo DO LAB POCT ORDERABLES - DEVICE Final Result Performing Organization Address [facility] Co de Phone Number AJIT [facility] Department [place] [address] * POCT glucose (03/10/2024 1:00 AM CDT) Glucose, POC 95 70 - 199 mg/dL Blood 03/10/2024 1:00 AM CDT 03/10/2024 1:00 AM CDT us Chadd Toledo DO LAB POCT ORDERABLES - DEVICE Final Result Performing Organization Address [facility] Co de Phone Number AJIT [facility] Department [place] [address] * Critical Care (03/09/2024 11:44 PM CDT) [...] plan with the ICU team and other medical/showroom consultant staff, making frequent assessments and decisions [...] - DEVICE Final Result Performing Organization Address [facility] Phone Number [facility] [place] [address] * POCT glucose (03/09/2024 10:21 PM CDT) Glucose, POC 121 70 - 199 mg/dL Blood 03/09/2024 10:2 1 PM CDT 03/09/2024 10:21 PM CDT Chadd Toledo DO LAB POCT ORDERABLES - DEVICE Final Result Performing Organization Address [facility] Phone Number [facility] [place] [address] * POCT glucose (03/09/2024 9:17 PM CDT) Glucose, POC 111 70 - 199 mg/dL Blood 03/09/2024 9:17 PM CDT 03/09/2024 9:17 PM CDT Chadd Toledo LAB POCT ORDERABLES - DEVICE Final Result Performing Organization Address [facility] [place] [address] * XR Spine Cervical 2 or 3 [...] panel, acute Blood (03/09/2024 7:59 PM CDT) [facility] Hep A IgM Nonreactive Nonreactive Hep B core IgM Nonreactive Nonreactive [facility] Hep C Ab Nonreactive Nonreactive [facility] Comment:Antibodies to HCV no t detected. Does NOT exclude the possibility of recent exposure to HCV. Current interpretive data was last revised on 22 HepBsAg Nonreactive Nonreactive [facility] Blood 03/09/2024 7:59 PM CDT 03/09/2024 8:07 PM CDT Chadd Toledo DO LAB MICROBIOLOGY - [facility] NERAL ORDERABLES Final Result [facility] Department [place] [address] * eGFR (03/09/2024 7:59 PM CDT) [facility] eGFR >90 >=60 mL/min/1. 73 m2 [...] CDT 03/09/2024 8:21 PM CDT Chadd Toledo DO LAB BLOOD ORDERABLES Final Result Performing Organization Address [facility] Co de Phone Number [facility] [place] [address] * Phosphorus (03/09/2024 7:59 PM CDT) Pathologist [facility] Phosphorus, pl 3.5 2.3 - 4.5 mg/dL Blood 03/09/2024 7:59 PM CDT 03/09/2024 8:21 PM CDT Chadd Toledo DO LAB BLOOD ORDERABLES Final Result Performing Organization Address [facility] Co de Phone Number AJIT [facility] [place] [address] * Magnesium (03/09/2024 7:59 PM CDT) Pathologist [facility] [place] Magnesium 1.8 1.4 - 2.5 mg/dL Blood 03/09/2024 7:59 PM CDT 03/09/2024 8:21 PM CDT Chadd Toledo DO LAB BLOOD ORDERABLES Final Result [facility] Department [place] [address] * (ABNORMAL) Basic metabolic panel (03/09/2024 7:59 PM CDT) [facility] Sodium 139 135 - 145 mmol/L Potassium, pl 3.5 3.3 - 4.9 mmol/L [facility] Chloride 103 97 - 110 mmol/L [facility] CO2 25 22 - 32 mmol/L [facility] Anion gap 11 2 - 15 mmol/L [facility] BUN 23 6 - 25 mg/dL [facility] Creatinine 0.54(L) 0.60 - 1.10 mg/dL [facility] Glucose 123 70 - 199 mg/dL [facility] Comment: Interpretive Data Fasting glucose >/= 126 [...] 2022. Calcium 8.1(L) 8.5 - 10.3 mg/dL [facility] Blood 03/09/2024 7:59 PM CDT 03/09/2024 8:21 PM CDT Chadd Elias Craft DO LAB BLOOD ORDERABLES Final Result Performing Organization Address [facility] Co de Phone Number [facility] Department [place] [address] * (ABNORMAL) CBC without differential (03/09/2024 7:59 PM CDT) [facility] WBC 5.9 3.8 - 9.9 K/cumm Hgb 10.5(L) 11.9 - 15.5 g/dL [facility] Hct 32.1(L) 35.6 - 45.5 % [facility] Plt 118(L) 150 - 400 K/cumm [facility] MPV 9.0(L) 9.1 - 12.3 fL [facility] RBC 3.81(L) 3.90 - 5.20 M/cumm [facility] MCV 84.3 81.3 - 96.4 fL [facility] MCH 27.6 27.1 - 33.3 pg [facility] MCHC 32.7 32.3 - 35.7 g/dL [facility] RDW CV 14.3 11.1 - 14.9 % [facility] RDW SD 43.8 35.7 - 48.1 fL [facility] NRBC abs 0.00 0.00 - 0.01 K/cumm [facility] Blood 03/09/2024 7:59 PM CDT 03/09/2024 8:21 PM CDT Chadd Toledo DO LAB BLOOD ORDERABLES Final Result Performing Organization Address [facility] Co de Phone Number [facility] Department [place] [address] * HIV 1/2 Antibody plus p24 Antigen Blood (03/09/2024 7:59 PM CDT) [facility] HIV 1/2 ab + p24 ag Nonreactive [...] NERAL ORDERABLES Final Result Performing Organization Address [facility] Co de Phone Number [facility] [place] [address] * POCT glucose (03/09/2024 7:57 PM CDT) Glucose, POC 157 70 - 199 mg/dL Blood 03/09/2024 7:57 PM CDT 03/09/2024 7:57 PM CDT Chadd DE LA FUENTE POCT ORDERABLES - DEVICE Final Result Performing Organization Address [facility] de Phone Number [facility] [place] [address] * POCT glucose (03/09/2024 7:03 PM CDT) Glucose, POC 130 70 - 199 mg/dL Blood 03/09/2024 7:03 PM CDT 03/09/2024 7:03 PM CDT Chadd DE LA FUENTE POCT ORDERABLES - DEVICE Final Result Performing Organization Address [facility] de Phone Number [facility] [place] [address] * POCT glucose (03/09/2024 6:01 PM CDT) Glucose, POC 99 70 - 199 mg/dL Blood 03/09/2024 6:01 PM CDT 03/09/2024 6:01 PM CDT Chadd Elias Craft DO LAB POCT ORDERABLES - DEVICE Final Result Performing Organization Address City/[facility]/[place] [address] * POCT glucose (03/09/2024 4:58 PM CDT) Glucose, POC 87 70 - 199 mg/dL Blood 03/09/2024 4:58 PM CDT 03/09/2024 4:58 PM CDT Chadd Toledo DO LAB POCT ORDERABLES - DEVICE Final Result Performing Organization Address [facility] [place] [address] * POCT glucose (03/09/2024 4:00 PM CDT) Glucose, POC 105 70 - 199 mg/dL Blood 03/09/2024 4:00 PM CDT 03/09/2024 4:00 PM CDT Chadd Toledo DO LAB POCT ORDERABLES - DEVICE Final Result Performing Organization Address [facility] Co de Phone Number [facility] [place] [address] * POCT glucose (03/09/2024 3:15 PM CDT) Glucose, POC 109 70 - 199 mg/dL Blood 03/09/2024 3:15 PM CDT 03/09/2024 3:15 PM CDT Chadd Toledo DO LAB POCT ORDERABLES - DEVICE Final Result Performing Organization Address City/[facility]/ZIP Co de Phone Number [facility] [place] [address] * POCT glucose (03/09/2024 2:06 PM CDT) Glucose, POC 118 70 - 199 mg/dL Blood 03/09/2024 2:06 PM CDT 03/09/2024 2:06 PM CDT Chadd Toledo DO LAB POCT ORDERABLES - DEVICE Final Result Performing Organization Address [facility] Co de Phone Number [facility] [place] [address] * POCT glucose (03/09/2024 1:05 PM CDT) Glucose, POC 127 70 - 199 mg/dL Blood 03/09/2024 1:05 PM CDT 03/09/2024 1:05 PM CDT Chadd Toledo DO LAB POCT ORDERABLES - DEVICE Final Result Performing Organization Address [facility] de Phone Number [facility] [place] [address] * POCT glucose (03/09/2024 12:01 PM CDT) Glucose, POC 152 70 - 199 mg/dL Blood 03/09/2024 12:0 1 PM CDT 03/09/2024 12:01 PM CDT Chadd Toledo DO LAB POCT ORDERABLES - DEVICE Final Result Performing Organization Address [facility] [place] [address] * Critical Care (03/09/2024 11:03 AM CDT) [...] plan with the ICU team and other medical/showroom consultant staff, making frequent assessments and decisions [...] (ABNORMAL) POCT glucose (03/09/2024 11:03 AM CDT) [facility] Signature Glucose, POC 205(H) 70 - 199 mg/dL Blood 03/09/2024 11:0 3 AM CDT 03/09/2024 11:03 AM CDT us Chadd Toledo DO LAB POCT ORDERABLES - DEVICE Final Result AJIT [facility] Department [place] [address] * (ABNORMAL) POCT glucose (03/09/2024 10:14 AM CDT) Glucose, POC 227(H) 70 - 199 mg/dL Blood 03/09/2024 10:1 4 AM CDT 03/09/2024 10:14 AM CDT Chadd Elias Efetorres DO LAB POCT ORDERABLES - DEVICE Final Result Performing Organization Address [facility] Co de Phone Number [facility] [place] [address] * (ABNORMAL) POCT glucose (03/09/2024 9:03 AM CDT) Glucose, POC 266(H) 70 - 199 mg/dL Blood 03/09/2024 9:03 AM CDT 03/09/2024 9:03 AM CDT Chadd Elias Tre DO LAB POCT ORDERABLES - DEVICE Final Result Performing Organization Address [facility] de Phone Number [facility] [place] [address] * (ABNORMAL) POCT glucose (03/09/2024 8:01 AM CDT) Glucose, POC 302(H) 70 - 199 mg/dL Blood 03/09/2024 8:01 AM CDT 03/09/2024 8:01 AM CDT Chadd Elias Efetorres DO LAB POCT ORDERABLES - DEVICE Final Result Performing Organization Address [facility] Co de Phone Number [facility] [place] [address] * (ABNORMAL) POCT glucose (03/09/2024 7:06 AM CDT) Glucose, POC 328(H) 70 - 199 mg/dL Blood 03/09/2024 7:06 AM CDT 03/09/2024 7:06 AM CDT us Chadd Toledo DO LAB POCT ORDERABLES - DEVICE Final Result Performing Organization Address [facility] Co de Phone Number AJIT [facility] Department [place] [address] * eGFR (03/09/2024 6:27 AM CDT) eGFR [...] 6:27 AM CDT 03/09/2024 6:46 AM CDT us Chadd Toledo DO LAB BLOOD ORDERABLES Final Result Performing Organization Address [facility] Co de Phone Number AJIT [facility] Department [place] [address] * (ABNORMAL) CBC without differential (03/09/2024 6:27 AM CDT) [facility] WBC 6.5 3.8 - 9.9 K/cumm Hgb 11.2(L) 11.9 - 15.5 g/dL [facility] Hct 33.4(L) 35.6 - 45.5 % [facility] Plt 132(L) 150 - 400 K/cumm [facility] MPV 9.1 9.1 - 12.3 fL [facility] RBC 3.95 3.90 - 5.20 M/cumm [facility] MCV 84.6 81.3 - 96.4 fL [facility] MCH 28.4 27.1 - 33.3 pg [facility] MCHC 33.5 32.3 - 35.7 g/dL [facility] RDW CV 14.1 11.1 - 14.9 % [facility] RDW SD 43.6 35.7 - 48.1 fL [facility] NRBC abs 0.00 0.00 - 0.01 K/cumm [facility] Blood 03/09/2024 6:27 AM CDT 03/09/2024 6:45 AM CDT us Chadd Toledo DO LAB BLOOD ORDERABLES Final Result [facility] Department [place] [address] * (ABNORMAL) Comprehensive metabolic panel (03/09/2024 6:27 AM CDT) [facility] Sodium 139 135 - 145 mmol/L Potassium, pl 4.1 3.3 -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 gel in packet 15 g 2 03/16/2024 03/09/2024 glucagon injection 1 mg 2 03/16/202402/11 insulin glargine (LANTUS, SE MGLEE) 100 unit/mL injection 20 Units 1 03/16/2024 insulin lispro (HumaLOG, ADM ELOG) 100 unit/mL injection 0-5 Units 2 03/16/2024 03/09/2024 insulin lispro (HumaLOG, ADM ELOG) 100 unit/mL injection 10 Units 1 03/16/2024 benzocaine-menthoL (CHLORASE PTIC) lozenge 1 lozenge 1 03/15/2024 enoxaparin (LOVENOX) syringe 40 mg 4 202303/10/2024 ceFAZolin (ANCEF) 1 gram/10 mL in sterile water (premix) 1,000 mg 1 03/14/2024 haloperidol (HALDOL) 5 mg/mL injection - ADS Override Pull 1 03/14/2024 haloperidol (HALDOL) injection 5 mg 2 03/14 linezolid (ZYVOX) tablet 600 mg 1 miconazole (SECURA THICK) 2 % cream 2 03/14 norepinephrine in dextrose 5 % (LEVOPHED) 8,000 mcg/250 mL (32 mcg/mL) infusion (premix) 2 03/14/2024 03/11/2024 vancomycin 1500 mg/515 mL in sodium chloride 0.9% (premix) 1,500 mg 1 03/14/2024 magnesium sulfate 2 g/50 mL in water (premix) 2 g 4 03/13/2024 03/09/2024 vasopressin in 5% dextrose ( VASOSTRICT) 20 unit/100 mL (0.2 unit/mL) infusion 1 03/13/2024 lidocaine (PF) (XYLOCAINE) 1 0 mg/mL (1 %) preservative free injection 10-20 mg 1 03/12/2024 magnesium sulfate 1 g/100 mL in dextrose 5% (premix) 1 g 1 03/12/2024 senna-docusate (PERICOLACE) 8.6-50 mg per tablet 1 tablet 2 03/12/2024 03/09/2024 sodium chloride 0.9% flush 5-10 mL 2 2023 sodium chloride 0.9% flush 5-20 mL 2 2023 sodium chloride 0.9% infusion 2 03/12/2024 03/09/2024 doxycycline (VIBRAMYCIN) tab let/capsule 100 mg 1 03/11/2024 HYDROmorphone (DILAUDID) injection 0.5 mg 5 03/11/2024 03/09/2024 lidocaine in dextrose 5% 2 g /250 mL (8 mg/mL) infusion (premix) 1 03/11/2024 sodium chloride 0.9% bolus 1,000 mL 1 03/11 HYDROmorphone (DILAUDID) injection 0.4 mg 1 03/10/2024 hydrOXYzine (ATARAX) tablet 25 mg 1 024 methocarbamoL (ROBAXIN) tablet 500 mg 2 03/09/2024 ondansetron (ZOFRAN) injection 4 mg 1 03/10 potassium chloride (KLOR-CON ) packet 40 mEq 2 03/10/2024 ampicillin-sulbactam (UNASYN ) 3 g/110 mL in sodium chloride 0.9% (premix) 3 g 2 03/09/2024 Carrier Fluids for Secondary Infusion - 0.9% Sodium Chloride 1 03/09/2024 dextrose 5% and Lactated Ringer's infusion 1 03/09/2024 dextrose 5% and sodium chlor usha 0.9% infusion (premix) 03/09/2024 doxycycline (VIBRAMYCIN) 100 mg in sodium chloride 0.9% 100 mL IVPB 1 03/09/2024 droPERidol (INAPSINE) injection 1.25 mg 3 0 03/09/2024 03/08/2024 gadoterate meglumine injection 14 mL 1 02/11 insulin lispro (HumaLOG, ADM ELOG) 100 unit/mL injection 4 Units 1 03/09/2024 insulin regular bolus from bag 4-10 Units 1 03/09/2024 insulin regular bolus from bag 4-6 Units 1 03/09/2024 insulin regular in 0.9% sodi um chloride (MYXREDLIN) 100 unit/100 mL (1 unit/mL) infusion (premix) 1 03/09/2024 lidocaine (PF) (XYLOCAINE) 1 0 mg/mL (1 %) preservative free injection 200 mg 1 03/09/2024 oxyCODONE (ROXICODONE) 1 mg/ mL oral solution 5 mg 1 03/09/2024 potassium chloride (KLOR-CON ) packet 20 mEq 1 03/09/2024 sodium chloride 0.9% flush 0.5-20 mL 2 02/11 fentaNYL (SUBLIMAZE) preserv ative free injection 50 mcg 1 03/08/2024 ioversoL (OPTIRAY 350) syringe 100 mL 1 ioversoL (OPTIRAY 350) syringe 125 mL 1 Lab Orders Without Results Count Last Ordered [...] POST-ACUTE CARE 1 024 IP CONSULT TO CHEMICAL PACKAGER 1 IP CONSULT TO NUTRITION SERVICES 1 03/26/20 IP CONSULT TO SPIRITUAL CARE 1 03/26/2024 [...] infection. Source: [facility] - [facility], [facility]. 07/06/2017 Ring Surveillance 03/29/2024 03/29/2024 04/18/2024 12:36 PM CDT documented as of this encounter Care Teams [employer] Relationship Specialty Start Date End Date Nayana Garber PA [address] [place] [id number] PCP - General Emergency Medicine 06/18/23 04/09/24 documented as of this encounter
--- OUTSIDE RECORDS SUMMARY | 2024-08-23 19:05 | XMS_ITS | Encounter Summary ---
Author Organization [facility] Address [address] [place] [address] Care Team Providers Care Rig Operator Name Role Phone Unavailable Primary Care Provider Unavailabl e Reason for Referral * Consultation (Urgent) - Closed Specialty Diagnoses / Procedures Referred By Contac t Referred To Contact Transitional Care Diagnoses Diabetes mellitus due to underlying condition with hyperosmolarity without coma, without long-term current use of insulin (HCC) Jose Rafael Carreon APRN-CNP [address] [facility] 2L [place] [address] [address] Referral ID Status Reason Start Date Expiration Date V isits Requested Visits Authorized [id number] Closed Specialty Services Required 12/18/2023 12/17/2024 1 1 * Evaluate & Treat (Routine) - Open Specialty Diagnoses / Procedures Referred By Contac t Referred To Contact Diagnoses Subarachnoid hemorrhage (HCC) Traumatic brain injury, with loss of consciousness of 31 minutes to 59 minutes, sequela (HCC) Jose Rafael Carreon APRN-CNP [address] [place] [address] Referral ID Status Reason Start Date Expiration Date V isits Requested Visits Authorized [id number] Open Specialty Services Required 12/20/2023 12/19/2024 1 1 * Evaluate & Treat (Routine) - Open Specialty Diagnoses / Procedures Referred By Rebekah t Referred To Contact Diagnoses Subarachnoid hemorrhage (HCC) Traumatic brain injury, with loss of consciousness of 31 minutes to 59 minutes, sequela (HCC) Jose Rafael Carreon APRN-CNP [address] [facility] [address] [place] [address] Referral ID Status Reason Start Date Expiration Date V isits Requested Visits Authorized [id number] Open Specialty Services Required 12/18/2023 12/17/2024 1 1 * Home Health Care (Routine) - Pending Review Specialty Diagnoses / Procedures Referred By Rebekah geiger Referred To Contact Home Health Services Diagnoses Post-traumatic subdural hematoma, without loss of consciousness, initial encounter (HCC) Traumatic brain injury, without loss of consciousness, initial encounter (HCC) Jose Rafael Carreon APRN-CNP [address] [facility] 2L [place] [address] Referral ID Status Reason Start Date Expiration Date Visits Requested Visits Authorized [id number] Pending Review Specialty Services Required 12/18/2023 12/17/2024 999 999 * Radiology Services (Routine) - Authorized Specialty Diagnoses / Procedures Referred By Rebeakh t Referred To Contact CT Scan Diagnoses Traumatic injury of head, initial encounter Procedures CT HEAD WO CONTRAST CT HEAD WO CONTRAST Ho Parada MD [address] [facility] 2L [place] [address] [facility] [address] [place] [address] Referral ID Status Reason Start Date Expiration Date V isits Requested Visits Authorized [id number] Authorized 01/15/2024 01/14/2025 1 1 Reason for [...] Expiration Date Visits Re quested Visits Authorized [id number] 1 1 Encounter Details Date Type Department Care Team (Late st Contact Info) Description 12/14/2023 8:25 PM CDT - 12/18/2023 4:17 PM CDT Hospital Encounter [facility] ACUTE [address] [place] [id number] Omer Carr MD [address] [facility] DIV OF EMERGENCY MEDICINE [place] Ho Parada MD [address] [facility] 2L [place] [id number] Trauma Discharge Disposition: Home Health Care Svc [...] medical care, and heating? Somewhat hard 12/17/2023 [facility] [facility] Occupat ional Health - Occupational Stress [...] place to sleep or slept in a usp (including now)? 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 Referrals made by social work. Vitals stable. Tolerating diet. SW made referrals 12/11. Awaiting rehab since 12/12. 12/13: Patient required Zyprexa IM x1 yesterday evening for agitation. No further agitation last night. Patient calm this AM. Awaiting Rehab placement. By agitated an yelling at times, bessie clemenst called. Patient wishing to go home and [...] Your Medications These medications were sent to [facility], [id number] [place], [place] [address] [facility] [id number] ?? oxyCODONE (immediate release) 5 MG tablet ?? sennosides 8.6 MG tablet Follow-up Information Eliel Aguayo MD . Specialty: Plastic and Reconstructive Surgery Contact information: [address] [place] [id number] Johnny Cuevas MD . Specialty: Otolaryngology Contact information: [address] [place] [address] DEPT OF OTOLARYNGOLOGY [facility] [address] Follow up with provider . Randy Jones MD . Specialty: Neurological Surgery Contact information: [address] [place] [address] DIV OF NEUROSURGERY [facility] [phone] Recommendation for Primary Care Physician follow up . Discharge Instructions If any problems develop or need any medication refills, please call the trauma office [phone] during the week. If after hours please call [phone] and ask to speak to the trauma resident correctional therapy teacher. Narcotic pain medication cannot be called in over the phone. To refill, an appointment will need to be made.. Make sure to call in enough time prior to running out if pain is persistent: [phone] during normal business hours. Signed: KRYSTEN Adame 12/18/2023 documented in this encounter Discharge Instructions * Discharge Instructions* Jose Rafael Carreon APRN-CNP - 12/18/2023 3:24 PM CDT If any problems develop or need any medication refills, please call the trauma office [phone] during the week. If after hours please call [phone] and ask to speak to the trauma resident correctional therapy teacher. Narcotic pain medication cannot be called in over the phone. To refill, an appointment will need to be made.. Make sure to call in enough time prior to running out if pain is persistent: [phone] during normal business hours. documented in this [...] questions, please contact the outpatient pharmacy at [phone]. Eddie Ma [facility] [address] [facility] First Floor [place], [place] [address] Hours of Operation Sunday - Sunday: 8:00am to 6:00pm Sunday: 9:00am to 1:00pm Epic: [facility], [facility] *Ensure the patient and clinic's nearby ZIP codes box is unchecked* * Mignon Rocha RN - 12/18/2023 4:14 PM CDT Iv removed and discharge instructions given. Patient sent discharge lounge, with all of her belonging, civil engineering manager , phone , perfume and clothes. * Elina Cabrera RN - 12/18/2023 4:04 PM CDT Case Management Progress Note Discharge Summary Doug Beal 1965 ?? Admit date: 12/14/2023 ?? Discharge date time: 12/18/23 Patient Disposition: Home with a referral to outpt therapy. CM and SW provided pt with list of outpt therapy locations in her area as well as in [place], [place] where her daughter lives. Cab voucher provided for transportation home per nursing. No other CM needs identified. Elina Cabrera RN [phone] Care Coordination Nurse Waterworks Supervisor * Radha Mercado RN - 12/18/2023 2:12 PM CDT Home care referral was received for the patient however the patient resides out of the agency's service area & the referral could not be accepted. Waterworks Supervisor is aware. Karla Mercado RN investigative writer Liaison [facility] [phone]?? * Mignon Rocha RN - 12/18/2023 1:22 [...] front for some fresh air. Nurse and managing partner were in the room with her when [...] - pt/ot recommend acute rehab - cleared FACILITY SECURITY OFFICER for home Skin: local wound with Vaseline to facial abrasiosn Lines: PIV PT/OT/ST: recommend acute rehab for restorative services SW: for dispo assistance DVT: LVX Jose Rafael Carreon, INVESTIGATIVE WRITER-MEDICAL PRACTICE ASSISTANT 12/18/2023 1:19 PM Patient seen on rounds with team Up in chair CV RRR Lungs clear Abdomen soft Periorbital/facial ecchymoses evolving Agree with assessment and plan as outlined * Sheyla Granado SLP - 12/18/2023 10:37 AM CDT [facility] [place] [facility] Cognitive Treatment Note Patient: Doug Beal Med Record Number: [id number] Date of : 1965 Age: [age] year old PPE: PPE donned by FACILITY SECURITY OFFICER during this session - N95 mask, barron cover, eye protection and gloves. Impression: Patient presents with good recall for generic/broad topic and basic information. Was able to recall ~50% of the information from completing the SLUMS assessment the day prior with a different FACILITY SECURITY OFFICER when not prompted to do so. Challenges noted when asked to complete tasks with unrelated subjects. Complex problem solving tasks and organizational tasks required extra time and mod cues. 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 Discharge Recommendations: ongoing [...] and use memory strategies for task completion. Alf Goal(s): Patient to be independent/baseline with speech/language/cognitive/swallowing to be able to safely discharge to prior level of care. If patient is discharged from the facility, this note serves as a discharge note if further speech therapy visits did not occur. Thank you, Sheyla Granado M.S. CCC-FACILITY SECURITY OFFICER Licensed Speech Language Pathologist * Alisa Batista PT - 12/18/2023 8:30 AM CDT [facility] Physical Medicine and Rehabilitation Physical Therapy Progress Note Patient: Doug Beal Med Record Number: [id number] Date of : 1965 Age: [age] year [...] date. Bed Mobility: Supine to Sit: Complete [place] with HOB in semi-fowlers position Transfers: Sit [...] will ascend/descend 6 steps with standby asist. Alf Goal(s): Patient to discharge to appropriate next [...] Douglass SLP - 12/17/2023 4:03 PM CDT [facility] [place] [facility] Cognitive Evaluation Patient: Doug Beal Med Record Number: [id number] Date of : 1965 Age: [age] year old In addition to the 1:1 evaluation of the patient, additional eval time was spent completing the chart review prior to the assessment, completing the multidisciplinary plan of care and education plan post evaluation and communicating results of the eval to other treatment team members. PPE: PPE donned by FACILITY SECURITY OFFICER during this session - N95 mask, eye [...] to demonstrate gains in problem solving/abstract reasoning. Alf Goals: Patient to be independent/baseline with speech/language/cognitive/swallowing [...] Discharge Plan: SW spoke to Ruba from [facility] regarding patient's admission. She stated that she needed updates to submit for auth. Updates sent. Orientation Level: Oriented X4: Family Support (Name and Phone): Extended Emergency Contact Information Primary Emergency Contact: Malinda Bela Mobile Relation: Daughter Preferred language: Cuban Patient Accounts Manager needed? No Secondary Emergency Contact: leónprashanth sloan Mobile Relation: Son Transportation at Discharge: : READMISSION RISK SCORE is N/A at 1:23 PM 12/17/2023.: Name: COLTON Tejeda [phone] * Alisa Batista, PT - 12/17/2023 11:27 AM CDT [facility] Physical Medicine and Rehabilitation Physical Therapy Progress Note Patient: Doug Beal Med Record Number: [id number] Date of : 1965 Age: [age] year [...] monitoring of vitals Modified Madelyn: Current Modified Gila Score: 4 AM-PAC 6 Clicks Mobility Raw [...] Patient will perform home exercise program independently Cardiac Nurse Goal(s): Patient to discharge to appropriate next [...] - pt/ot recommend acute rehab - cleared FACILITY SECURITY OFFICER for home Skin: local wound with Vaseline to facial abrasiosn Lines: PIV PT/OT/ST: recommend acute rehab SW: for dispo assistance DVT: LVX Jose Rafael Carreon APRN-MEDICAL PRACTICE ASSISTANT 12/17/2023 11:09 AM Patient not available for [...] of [place] - [address] [place] [address] [address] [place] [address] READMISSION RISK SCORE is N/A at 10:20 AM 12/17/2023. Family Support (name and phone): Extended Emergency Contact Information Primary Emergency Contact: Malinda Beal Mobile Relation: Daughter Preferred language: Cuban Patient Accounts Manager needed? No Secondary Emergency Contact: prashanth beal Mobile Relation: Son Patient or tax representative requests care coordination reach out to family or caregiver listed above regarding discharge planning and at time of discharge? Yes Patient/Family provided with list of resources? Yes Preferred Provider / High Quality Network List given?: Yes Reason for provider choice: Pt. choice - Physician driven Equipment at Home: Walker-2 Wheeled;Cane-Small Base Quad;Wheelchair- Standard;Grab Bars Astronomy Instructor Referral: Yes Will continue to follow. For any questions or needs please contact: Waterworks Supervisor Name/Phone number: Elina Cabrera RN [phone] * Alessandra Aponte, INVESTIGATIVE WRITER-MEDICAL PRACTICE ASSISTANT - 12/17/2023 7:34 AM CDT [facility] Psychiatry Consult Progress Note Doug Beal Age: [...] Response Team from the parking garage at [facility] after a ground level fall. daughter [...] ?? Short term risk of harm to [id number]-tdh-[id number] Risk factors: substance use, recent agitation, low frustration tolerance Protective factors: denies HI, calm on interview Overall Risk low/moderate ?? Based on review of the [place] Screening ,review of the medical record including nursing and social sciences instructor documentation, in my clinical judgment, the patient's [...] Garrett OT - 12/16/2023 1:18 PM CDT [facility] Physical Medicine and Rehabilitation Occupational Therapy Initial Evaluation Note Patient: Doug Beal [facility] Record Number: [id number] Date of : 1965 Age: [age] year [...] Steps to Enter: Other (Comment) (6 at [facility] and [facility] Handrails: Outdoor [...] activity this date. Bed Mobility: Rolling: Modified [place];Activity Does Not Occur Supine to Sit: Minimal [...] ACTIVITY TOLERANCE: Patient's activity tolerance: fair. Modified Gila: Current Modified Gila Score: 4 AM-PAC 6 Clicks Daily Activity [...] Patient will perform toileting with minimal assist Cardiac Nurse Goal(s): Patient to discharge to appropriate next [...] Lamb, PT - 12/16/2023 11:10 AM CDT [facility] Physical Medicine and Rehabilitation Physical Therapy Initial Evaluation Note Patient: Doug Beal Med Record Number: [id number] Date of : 1965 Age: [age] year [...] treatment team members. Nurse, Occupational Therapist and SONAR TECHNICIAN-PLUSH BRUSHER contacted regarding patient status and/or discharge plan. [...] activity this date. Bed Mobility: Rolling: Modified [place];Activity Does Not Occur Supine to Sit: Minimal [...] gait training and monitoring of vitals Modified Gila: Current Modified Gila Score: 4 AM-PAC 6 Clicks Mobility Raw [...] Patient will perform home exercise program independently Cardiac Nurse Goal(s): Patient to discharge to appropriate next [...] call light within reach. * Frida Berrios, INVESTIGATIVE WRITER-PHERESIS SPECIALIST - 12/16/2023 9:43 AM CDT Trauma Floor [...] bacitracin topical ointment Topical BID Frida Berrios APRN-PHERESIS SPECIALIST Given at 12/16/23838 ??? dextrose 10 % IV bolus 12.5 g Intravenous PRN Daryl Badillo MD Or ??? dextrose 10 % IV bolus 25 g Intravenous PRN Daryl Badillo MD Or ??? glucagon (Glucagen) injection 1 mg 1 mg Subcutaneous PRN Daryl Badillo MD ??? enoxaparin (Lovenox) injection 30 mg 30 mg Subcutaneous q12h Frida Berrios APRN-PHERESIS SPECIALIST 30 mg at12/16/23838 ??? glucose (Diabetic Use) [...] 10 Units Subcutaneous AT BEDTIME Frida Berrios APRN-PHERESIS SPECIALIST 10 Units at 12/15/232024 ??? levETIRAcetam (Keppra) tablet 500 mg 500 mg Oral BID Frida Berrios APRN- PHERESIS SPECIALIST 500 mg at 12/16/23838 ??? OLANZapine (ZyPREXA) [...] 0659 12/16/23 07 - 12/17/23 0659 Shift 0757-7417 9960-8688 24 Hour Total 4646-3002 3872-8139 24 Hour Total INTAKE P.O. 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 Frida Berrios APRN-PHERESIS SPECIALIST 12/16/2023 10:07 AM Associated attestation - Ho [...] follow up appointment, or they can call [phone]. Luis De Oliveira MD 12/15/2023 1:54 PM * Karuna Keene OT - 12/15/2023 1:25 PM CDT [facility] Department of Physical Medicine & Rehabilitation Progress Note Patient: Doug Beal [facility] Record Number: [id number] Date of : 1965 Age: [age] year old 12/15/23 0910 Missed Visit Missed Visit RN Cancel (Pt going off the floor to stat CT.) * Reyna Siegel SLP - 12/15/2023 11:04 AM CDT [facility] Department of Physical Medicine & Rehabilitation Progress Note Patient: Doug Beal [facility] Record Number: [id number] Date of : 1965 Age: [age] year old 12/15/23 1104 Missed Visit Missed Visit Other (Comment) (Pt sleeping soundly, not appropriate for cog eval at this time) Will re-attempt ST when pt is more alert. Speech-Language Pathologist * Dee Hoang, PT - 12/15/2023 9:27 AM CDT [facility] Department of Physical Medicine & Rehabilitation Progress Note Patient: Doug Beal [facility] Record Number: [id number] Date of : 1965 Age: [age] year old 12/15/23 0927 Missed Visit Patient off the floor Medical Imaging (stat CT) * Frida Berrios APRN-PHERESIS SPECIALIST - 12/15/2023 8:40 AM CDT Trauma Floor [...] bacitracin topical ointment Topical BID Frida Berrios APRN-PHERESIS SPECIALIST ??? dextrose 10 % IV bolus 12.5 [...] - 12/15/23 0612/15/23699 - 12/16/23 0659 Shift 3547-8604 1049-5767 24 Hour Total 0707-8677 2408-4603 24 Hour Total INTAKE P.O. 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. Needs repeat CThead and final recommendations from NSG. Frida Berrios APRN-PHERESIS SPECIALIST 12/15/2023 9:13 AM Associated attestation - Ho [...] No Stress: No Stress Concern Present (12/11/2023) [facility] [place] of Occupational Health - Occupational Stress Questionnaire [...] osteoarthritis. Report dictated by Simone Frey MD (president + publisher). Diane Linares MD have personally reviewed and interpreted this examination/study. > Interpreting Provider: Diane Wheeler MD on 12/11/2023 3:19 PM XR SHOULDER RIGHT 2VW OR MORE Result Date: 12/11/2023 IMPRESSION: No acute fracture or dislocation identified. Report dictated by Simone Frey MD (president + publisher). Diane Linares MD have personally reviewed and interpreted this examination/study. > Interpreting Provider: Diane Wheeler MD on 12/11/2023 3:[address] TEMPORAL BONES WO CONTRAST Result Date: 12/11/2023 IMPRESSION: 1.No evidence of acute fracture of the bilateral temporal bones. The report is dictatedby Juventino Pierre MD, (Pastrycook'S Assistant) Gosia Linares MD have personally reviewed and [...] described. Report dictated by Luis Nunez MD (president + publisher). Gosia Linares MD have personally reviewed and [...] unchanged. > Dictated by Juventino Pierre MD (Pastrycook'S Assistant) Gosia Linares MD have personally reviewed and [...] report is dictated by Jeaneth Ferrari MD (president + publisher) Giovani Linares MD have personally reviewed and [...] report is dictated by Jeaneth Ferrari MD (president + publisher) Giovani Linares MD have personally reviewed and [...] report is dictated by Jeaneth Ferrari MD (president + publisher) Giovani Linares MD have personally reviewed and [...] report is dictated by Jeaneth Ferrari MD (president + publisher) Giovani Linares MD have personally reviewed and [...] report is dictated by Jeaneth Ferrari MD (president + publisher) Giovani Linares MD have personally reviewed and [...] trauma. Report dictated by Jeaneth Ferrari MD (president + publisher). Jamshid Linares MD have personally reviewed and [...] appropriate. > Dictated by Jimmy Murphy DO (president + publisher). I, Jamshid Geller MD have personally reviewed [...] days -Erythromycin ointment to abrasions -f/u outpatient mold machine operator closer to home per patient preference ?? [...] with attending Dr. Parada. Daryl Badillo MD [facility] December 14, 2023 9:55 PM Associated [...] be found in assessment below Nutrition Plan: Vbsh-tj-elcf diet order Glucerna (220 kcals, 10 g [...] [facility]. PO intake appears adequate per jewel inserter. Noted one good intake of ONS doc'd. [...] Pain affecting intake: No Estimated Needs: KCAL: 3721-9466 (25-30 kcal/kg IBW) Protein (g): 102-171g (1.5-2.5 [...] DATE/TIME OF EXAM: 12/15/2023 9:42 AM, LOCATION [facility] INDICATION: S09.90XA: Traumatic injury of head, [...] 12/10/2023. Report dictated by Jeaneth Ferrari MD (president + publisher). I, Greg Molina MD have personally reviewed and interpreted this examination/study. > Interpreting Provider: Greg Molina MD on 12/15/2023 1:[address] HEAD WO CONTRAST Final Result PROCEDURE: CT HEAD WO CONTRAST, DATE/TIME OF EXAM: 12/14/2023 10:32 PM, LOCATION [facility] INDICATION: S09.90XA: Traumatic injury of head, [...] is dictated by Lalita Roblero Dr, MD (president + publisher) Greg Linares MD have personally reviewed and interpreted this examination/study. > Interpreting Provider: Greg Molina MD on 12/14/2023 10:58 PM XR CHEST 1VW PORTABLE Final Result PROCEDURE: XR CHEST 1VW PORTABLE, DATE/TIME OF EXAM: 12/14/2023 8:52 PM, LOCATION [facility] INDICATION: R06.02: SOB (shortness of breath) ADDITIONAL CLINICAL INFORMATION: Ordering Provider Reason For Exam: sob Technologist Note: Additional: COMPARISON: 12/10/2023 FINDINGS/IMPRESSION: Mild interstitial opacity could be pulmonary edema. No focal consolidation, pleural effusion, or pneumothorax. Report dictated by Deepak Goddard DO (president + publisher). Bernardino Linares MD have personally reviewed and [...] Injury Head Pt BIBRapid [facility]. Pt was pt [...] Response Team from the parking garage at [facility] after a ground level fall. Patient [...] Upon chart review, patient was seen at [facility] ED on 12/10/23 as a level 2 trauma due to a HALFWAY, imaging showed multiple facial fractures and was [...] No Stress: No Stress Concern Present (12/11/2023) [facility] [place] [facility] Occupational Health - Occupational Stress Questionnaire [...] nursing note reviewed. Exam conducted with a police booking officer present. Constitutional: General: She is not in [...] DATE/TIME OF EXAM: 12/14/2023 8:52 PM, LOCATION [facility] INDICATION: R06.02: SOB (shortness of breath) ADDITIONAL CLINICAL INFORMATION: Ordering Provider Reason For Exam: sob Technologist Note: Additional: COMPARISON: 12/10/2023 FINDINGS/IMPRESSION: Mild interstitial opacity could be pulmonary edema. No focal consolidation, pleural effusion, or pneumothorax. Report dictated by Deepak Goddard DO (president + publisher). I, Bernardino Key MD have personally reviewed [...] the video go to this web address: [email or web address] Or, scan this QR code with your smart phone ?? [employer]. * Clinical References Jose Rafael Peralta APRN-CNP - 12/18/2023 3:25 PM CDT 79929 Anxiety and Traumatic Brain Injury (TBI) A [...] TBI. Last Reviewed Date: 2023 ?? [employer]. All rights reserved. This information is not intended as a substitute for professional medical care. Always follow your healthcare professional's instructions. * Clinical References AVS - Jose Rafael Carreon APRN-CNP - 12/18/2023 3:25 PM CDT 79691 Caring for a Person with a Traumatic [...] thisby yourself. Last Reviewed Date: 2022 ?? 7037-8489 [employer]. All rights reserved. This information is not intended as a substitute for professional medical care. Always follow your healthcare professional's instructions. * Clinical References AVS - Jose Rafael Carreon APRN-CNP - 12/18/2023 3:25 PM CDT Images from the original note were not included. 49774 What Is Traumatic Brain Injury? A traumatic [...] well as afterward. A tool called the Waldo Coma Scale is often used to rate [...] with your healthcare provider first. This includes jold-pox-[id number] medicines. ?? Talk with your provider if [...] to heal. Last Reviewed Date: 2022 ?? 3513-3520 [employer]. All rights reserved. This information is not intended as a substitute for professional medical care. Always follow your healthcare professional's instructions. * Clinical References AVS - Jose Rafael Carreon APRN-CNP - 12/18/2023 3:25 PM CDT 28119 Depression and Traumatic Brain Injury Traumatic brain [...] way to treat depression by learning a piey-vm-cmgt approach to solving problems. ?? Antidepressant medicines. [...] 05/03. Last Reviewed Date: 2023 ?? [employer]. All rights reserved. This information is not [...] smart phone Last Reviewed Date: 2019 ?? [employer]. All rights reserved. This information is not intended as a substitute for professional medical care. Always follow your healthcare professional's instructions. * Clinical References AVS - Jose Rafael Carreon APRN-CNP - 12/18/2023 3:25 PM CDT 78109 Adjustment Disorder and Traumatic Brain Injury A [...] it works. Last Reviewed Date: 2021 ?? 4836-3172 [employer]. All rights reserved. This information is not intended as a substitute for professional medical care. Always follow your healthcare professional's instructions. * Clinical References AVS - Jose Rafael Carreon APRN-CNP - 12/18/2023 3:25 PM CDT 98994 Substance Abuse and Traumatic Brain Injury A [...] do recover. Last Reviewed Date: 2021 ?? 2087-0713 [employer]. All rights reserved. This information is not intended as a substitute for professional medical care. Always follow your healthcare professional's instructions. * Clinical References AVS - Jose Rafael Carreon APRN-CNP - 12/18/2023 3:25 PM CDT Images from the original note were not included. 35106 Head Trauma (Traumatic Brain Injury) Head trauma [...] the injury. Last Reviewed Date: 2023 ?? 1119-3726 [employer]. All rights reserved. This information is not [...] (HCC) Expected: 12/20/2023, Expires: 12/17/2024 Ref to [facility] Outpatient Referral Routine Diabetes mellitus [...] - 115 mg/dL 12/20/2023 11:37 AM CDT [facility] Specimen Type Arterial 12/20/2023 11:[address] [facility] Blood BLOOD SPECIMEN / Unknown 12/18/2023 7:12 PM CDT 12/20/2023 11:37 AM CDT Ho Parada MD LAB - POINT OF CARE ORDERABLES [facility] [address] [place] [address], [facility] [phone] * (ABNORMAL) GLUCOSE - POINT OF CARE (12/18/2023 7:12 PM CDT) Glucose WB/POC 118(H) 70 - 115 mg/dL 12/20/2023 11:[address] [facility] Specimen Type Arterial 12/20/2023 11:[address] [facility] Blood BLOOD SPECIMEN / Unknown 12/18/2023 7:12 PM CDT 12/20/2023 11:36 AM CDT Ho Parada MD LAB - POINT OF CARE ORDERABLES [address] [address], [place] [phone] * GLUCOSE - POINT OF CARE (12/18/2023 5:08 PM CDT) Glucose WB/POC 95 70 - 115 mg/dL 12/20/2023 11:[address] [facility] Specimen Type Arterial 12/20/2023 11:[address] [facility] Blood BLOOD SPECIMEN / Unknown 12/18/2023 5:08 PM CDT 12/20/2023 11:37 AM CDT Ho Parada MD LAB - POINT OF CARE ORDERABLES [address] [address], [place] [phone] * GLUCOSE - POINT OF CARE (12/18/2023 5:05 PM CDT) Glucose WB/POC 87 70 - 115 mg/dL 12/20/2023 11:[address] [facility] Specimen Type Arterial 12/20/2023 11:[address] [facility] Blood BLOOD SPECIMEN / Unknown 12/18/2023 5:05 PM CDT 12/20/2023 11:38 AM CDT Ho Parada MD LAB - POINT OF CARE ORDERABLES [address] [address], [place] [phone] * GLUCOSE - POINT OF CARE (12/18/2023 5:02 PM CDT) Glucose WB/POC 95 70 - 115 mg/dL 12/20/2023 11:38 AM CDT [facility] Specimen Type Arterial 12/20/2023 11:[address] [facility] Blood BLOOD SPECIMEN / Unknown 12/18/2023 5:02 PM CDT 12/20/2023 11:38 AM CDT Ho Parada MD LAB - POINT OF CARE ORDERABLES [address] [address], [place] [phone] * GLUCOSE - POINT OF CARE (12/18/2023 5:01 PM CDT) Glucose WB/POC 94 70 - 115 mg/dL 12/20/2023 11:38 AM CDT [facility] Specimen Type Arterial 12/20/2023 11:[address] [facility] Blood BLOOD SPECIMEN / Unknown 12/18/2023 5:01 PM CDT 12/20/2023 11:38 AM CDT Ho Parada MD LAB - POINT OF CARE ORDERABLES Performing Organization Address City/[facility]/ZIP Co de Phone Number [address] [address], [place] [phone] * (ABNORMAL) GLUCOSE - POINT OF CARE (12/18/2023 11:35 AM CDT) Glucose WB/POC 327(H) 70 - 115 mg/dL 12/18/2023 11:45 AM CDT [facility] Specimen Type Arterial 12/18/2023 11:[address] [facility] Blood BLOOD SPECIMEN / Unknown 12/18/2023 11:35 AM CDT 12/18/2023 11:45 AM CDT Ho Parada MD LAB - POINT OF CARE ORDERABLES [facility] [address] [place] [address], [place] [phone] * (ABNORMAL) GLUCOSE - POINT OF CARE (12/18/2023 7:53 AM CDT) Glucose WB/POC 277(H) 70 - 115 mg/dL 12/18/2023 8:07 AM CDT [facility] Specimen Type Arterial 12/18/2023 8:[address] [facility] Blood BLOOD SPECIMEN / Unknown 12/18/2023 7:53 AM CDT 12/18/2023 8:07 AM CDT Ho Parada MD LAB - POINT OF CARE ORDERABLES [address] [address], [place] [phone] * (ABNORMAL) GLUCOSE - POINT OF CARE (12/18/2023 5:06 AM CDT) Glucose WB/POC 336(H) 70 - 115 mg/dL 12/18/2023 5:[address] [facility] Specimen Type Cap Fingerstick 2023 5:[address] [facility] Blood BLOOD SPECIMEN / Unknown 12/18/2023 5:06 AM CDT 12/18/2023 5:08 AM CDT Ho Parada MD LAB - POINT OF CARE ORDERABLES [address] [address], [place] [phone] * (ABNORMAL) GLUCOSE - POINT OF CARE (12/18/2023 12:10 AM CDT) Glucose WB/POC 328(H) 70 - 115 mg/dL 12/18/2023 12:[address] [facility] Specimen Type Cap Fingerstick 2023 12:[address] [facility] Blood BLOOD SPECIMEN / Unknown 12/18/2023 12:10 AM CDT 12/18/2023 12:11 AM CDT Ho Parada MD LAB - POINT OF CARE ORDERABLES [facility] [address] [place] [address], [place] [phone] * (ABNORMAL) GLUCOSE - POINT OF CARE (12/17/2023 8:40 PM CDT) Glucose WB/POC 393(H) 70 - 115 mg/dL 12/17/2023 8:41 PM CDT [facility] Specimen Type Cap Fingerstick 2023 8:[address] [facility] Blood BLOOD SPECIMEN / Unknown 12/17/2023 8:40 PM CDT 12/17/2023 8:41 PM CDT Ho Parada MD LAB - POINT OF CARE ORDERABLES Performing Organization Address City/[facility]/ZIP Co de Phone Number [address] [address], [place] [phone] * (ABNORMAL) GLUCOSE - POINT OF CARE (12/17/2023 4:05 PM CDT) Glucose WB/POC 294(H) 70 - 115 mg/dL 12/17/2023 4:10 PM CDT [facility] Specimen Type Arterial 12/17/2023 4:[address] [facility] Blood BLOOD SPECIMEN / Unknown 12/17/2023 4:05 PM CDT 12/17/2023 4:10 PM CDT Ho Parada MD LAB - POINT OF CARE ORDERABLES [address] [address], [place] [phone] * (ABNORMAL) GLUCOSE - POINT OF CARE (12/17/2023 12:16 PM CDT) Glucose WB/POC 315(H) 70 - 115 mg/dL 12/17/2023 12:21 PM CDT [facility] Specimen Type Arterial 12/17/2023 12:[address] [facility] Blood BLOOD SPECIMEN / Unknown 12/17/2023 12:16 PM CDT 12/17/2023 12:21 PM CDT Ho Parada MD LAB - POINT OF CARE ORDERABLES [facility] [address] [place] [address], [place] [phone] * (ABNORMAL) GLUCOSE - POINT OF CARE (12/17/2023 7:32 AM CDT) Glucose WB/POC 278(H) 70 - 115 mg/dL 12/17/2023 7:[address] [facility] Specimen Type Arterial 12/17/2023 7:[address] [facility] Blood BLOOD SPECIMEN / Unknown 12/17/2023 7:32 AM CDT 12/17/2023 7:37 AM CDT Ho Parada MD LAB - POINT OF CARE ORDERABLES Performing Organization Address City/[facility]/ZIP Co de Phone Number [address] [address], [place] [phone] * (ABNORMAL) GLUCOSE - POINT OF CARE (12/16/2023 4:59 PM CDT) Glucose WB/POC 252(H) 70 - 115 mg/dL 12/16/2023 5:[address] [facility] Specimen Type Cap Fingerstick 2023 5:[address] [facility] Blood BLOOD SPECIMEN / Unknown 12/16/2023 4:59 PM CDT 12/16/2023 5:04 PM CDT Ho Parada MD LAB - POINT OF CARE ORDERABLES [facility] [address] [place] [address], [place] [phone] * (ABNORMAL) GLUCOSE - POINT OF CARE (12/16/2023 12:00 PM CDT) Glucose WB/POC 385(H) 70 - 115 mg/dL 12/16/2023 12:05 PM CDT [facility] Specimen Type Cap Fingerstick 2023 12:[address] [facility] Blood BLOOD SPECIMEN / Unknown 12/16/2023 12:00 PM CDT 12/16/2023 12:05 PM CDT Ho Parada MD LAB - POINT OF CARE ORDERABLES [facility] [address] [place] [address], [place] [phone] * (ABNORMAL) GLUCOSE - POINT OF CARE (12/16/2023 8:12 AM CDT) Glucose WB/POC 194(H) 70 - 115 mg/dL 12/16/2023 8:[address] [facility] Specimen Type Cap Fingerstick 2023 8:[address] [facility] Blood BLOOD SPECIMEN / Unknown 12/16/2023 8:12 AM CDT 12/16/2023 8:16 AM CDT Ho Parada MD LAB - POINT OF CARE ORDERABLES [facility] [address] [place] [address], [place] [phone] * (ABNORMAL) GLUCOSE - POINT OF CARE (12/16/2023 6:41 AM CDT) Glucose WB/POC 217(H) 70 - 115 mg/dL 12/16/2023 6:[address] [facility] Specimen Type Cap Fingerstick 2023 6:[address] [facility] Blood BLOOD SPECIMEN / Unknown 12/16/2023 6:41 AM CDT 12/16/2023 6:42 AM CDT Ho Parada MD LAB - POINT OF CARE ORDERABLES [facility] [address] [place] [address], [place] [phone] * (ABNORMAL) GLUCOSE - POINT OF CARE (12/15/2023 10:31 PM CDT) Glucose WB/POC 205(H) 70 - 115 mg/dL 12/15/2023 10:38 PM CDT [facility] Specimen Type Cap Fingerstick 2023 10:[address] [facility] Blood BLOOD SPECIMEN / Unknown 12/15/2023 10:31 PM CDT 12/15/2023 10:38 PM CDT Ho Parada MD LAB - POINT OF CARE ORDERABLES [address] [address], [place] [phone] * (ABNORMAL) GLUCOSE - POINT OF CARE (12/15/2023 4:58 PM CDT) Glucose WB/POC 218(H) 70 - 115 mg/dL 12/15/2023 5:03 PM CDT [facility] Specimen Type Arterial 12/15/2023 5:[address] [facility] Blood BLOOD SPECIMEN / Unknown 12/15/2023 4:58 PM CDT 12/15/2023 5:03 PM CDT Ho Parada MD LAB - POINT OF CARE ORDERABLES [address] [address], [place] [phone] * (ABNORMAL) GLUCOSE - POINT OF CARE (12/15/2023 2:18 PM CDT) Glucose WB/POC 240(H) 70 - 115 mg/dL 12/15/2023 2:[address] [facility] Specimen Type Cap Fingerstick 2023 2:[address] [facility] Blood BLOOD SPECIMEN / Unknown 12/15/2023 2:18 PM CDT 12/15/2023 2:23 PM CDT Ho Parada MD LAB - POINT OF CARE ORDERABLES [facility] [address] [place] [address], [place] [phone] * (ABNORMAL) GLUCOSE - POINT OF CARE (12/15/2023 9:47 AM CDT) Glucose WB/POC 253(H) 70 - 115 mg/dL 12/15/2023 9:[address] [facility] Specimen Type Arterial 12/15/2023 9:[address] [facility] Blood BLOOD SPECIMEN / Unknown 12/15/2023 9:47 AM CDT 12/15/2023 9:52 AM CDT Ho Parada MD LAB - POINT OF CARE ORDERABLES [facility] [address] [place] [address], [place] [phone] * CT HEAD WO CONTRAST (12/15/2023 9:42 [...] 12/10/2023. Report dictated by Jeaneth Ferrari MD (president + publisher). I, Greg Molina MD have personally reviewed and interpreted this examination/study. > Interpreting Provider: Greg Molina MD on 12/15/2023 1:33 PM Narrative 12/15/2023 1:33 PM CDT PROCEDURE: ??CT HEAD WO CONTRAST, DATE/TIME OF EXAM: ??12/15/2023 9:42 AM, LOCATION ??[facility] INDICATION: S09.90XA: Traumatic injury of head, [...] DATE/TIME OF EXAM: 12/15/2023 9:42 AM, LOCATION [facility] INDICATION: S09.90XA: Traumatic injury of head, [...] 12/10/2023. Report dictated by Jeaneth Ferrari MD (president + publisher). I, Greg Molina MD have personally reviewed and interpreted this examination/study. > Interpreting Provider: Greg Molina MD on 12/15/2023 1:33 PM Frida Berrios INVESTIGATIVE WRITER-PHERESIS SPECIALIST CT ORDERABLES * (ABNORMAL) GLUCOSE - POINT OF CARE (12/14/2023 11:42 PM CDT) Glucose WB/POC 297(H) 70 - 115 mg/dL 12/14/2023 11:43 PM CDT [facility] Specimen Type Cap Fingerstick 2023 11:[address] [facility] Blood BLOOD SPECIMEN / Unknown 12/14/2023 11:42 PM CDT 12/14/2023 11:43 PM CDT Ho Parada MD LAB - POINT OF CARE ORDERABLES [address] [address], [facility] [phone] * CT HEAD WO CONTRAST (12/14/2023 10:31 [...] and verification. The report is dictated by Llaita Roblero Dr, MD (president + publisher) I, Greg Molina MD have personally reviewed and interpreted this examination/study. > Interpreting Provider: Greg Molina MD on 12/14/2023 10:58 PM Narrative 12/14/2023 10:58 PM CDT PROCEDURE: ??CT HEAD WO CONTRAST, DATE/TIME OF EXAM: ??12/14/2023 10:32 PM, LOCATION ??[facility] INDICATION: S09.90XA: Traumatic injury of head, [...] DATE/TIME OF EXAM: 12/14/2023 10:32 PM, LOCATION [facility] INDICATION: S09.90XA: Traumatic injury of head, [...] is dictated by Lalita Roblero Dr, MD (president + publisher) I, Greg Molina MD have personally reviewed [...] DATE/TIME OF EXAM: ??12/14/2023 8:52 PM, LOCATION ??[facility] INDICATION: R06.02: SOB (shortness of breath) ADDITIONAL CLINICAL INFORMATION: Ordering Provider Reason For Exam: ??sob Technologist Note: Additional: COMPARISON: 12/10/2023 FINDINGS/IMPRESSION: Mild interstitial opacity could be pulmonary edema. No focal consolidation, pleural effusion, or pneumothorax. Report dictated by Deepak Goddard DO (president + publisher). Bernardino Linares MD have personally reviewed and interpreted this examination/study. > Interpreting Provider: Bernardino Key MD on 12/14/2023 8:58 PM Procedure Note Bernardino Key MD - 12/14/2023 PROCEDURE: XR CHEST 1VW PORTABLE, DATE/TIME OF EXAM: 12/14/2023 8:52 PM, LOCATION [facility] INDICATION: R06.02: SOB (shortness of breath) ADDITIONAL CLINICAL INFORMATION: Ordering Provider Reason For Exam: sob Technologist Note: Additional: COMPARISON: 12/10/2023 FINDINGS/IMPRESSION: Mild interstitial opacity could be pulmonary edema.No focal consolidation, pleural effusion, or pneumothorax. Report dictated by Deepak Goddard DO (president + publisher). Bernardino Linares MD have personally reviewed and interpreted this examination/study. > Interpreting Provider: Bernardino Key MD on 12/14/2023 8:58 PM Fani Cao MD DIAGNOSTIC IMAGING O RDERABLES * PHOSPHORUS BLOOD (12/14/2023 8:48 PM CDT) Phosphorus 3.4 2.9 - 5.1 mg/dL 12/14/2023 9:28 PM CDT [facility] Blood BLOOD SPECIMEN / Unknown Venipuncture / Unknown 12/14/2023 8:48 PM CDT 12/14/2023 8:57 PM CDT Omer Carr MD LAB - CHEMISTRY NIDHI VIEIRA [facility] [address] [place] [address], [place] [phone] * MAGNESIUM BLOOD (12/14/2023 8:48 PM CDT) [facility] Magnesium 2.0 1.6 - 2.6 mg/dL 12/14/2023 9:28 PM [facility] Blood BLOOD SPECIMEN / Unknown Venipuncture / Unknown 12/14/2023 8:48 PM CDT 12/14/2023 8:57 PM CDT Omer Carr MD LAB - CHEMISTRY NIDHI VIEIRA [facility] [address] [place] [address], [facility] [phone] * (ABNORMAL) COMPREHENSIVE METABOLIC PANEL (12/14/2023 8:48 PM CDT) [facility] BUN 24 7 - 26 mg/dL 12/14/2023 9:33 PM [facility] Creatinine 0.65 0.56 - 0.96 mg/dL 12/14/2023 9:33 PM [facility] Sodium 137 136 - 145 mmol/L 12/14/2023 9:33 PM [facility] Potassium 4.2 3.5 - 4.5 mmol/L 12/14/2023 9:33 PM [facility] Chloride 101 98 - 107 mmol/L 12/14/2023 9:33 PM [facility] CO2 26 22 - 29 mmol/L 12/14/2023 9:33 PM [facility] Glucose 246(H) 70 - 115 mg/dL 12/14/2023 9:33 PM [facility] Calcium 10.3(H) 8.4 - 10.2 mg/dL 12/14/2023 9:33 PM [facility] Protein Total 7.8 6.0 - 8.3 g/dL 12/14/2023 9:33 PM [facility] Albumin 3.1(L) 3.4 - 5.0 g/dL 12/14/2023 9:33 PM [facility] Bilirubin Total 0.6 0.2 - 1.2 mg/dL 12/14/2023 9:33 PM [facility] Alkaline Phosphatase 135 40 - 150 U/L 12/14/2023 9:33 PM [facility] ALT 17 5 - 55 U/L 12/14/2023 9:33 PM [facility] AST 26 5 - 34 U/L 12/14/2023 9:33 PM [facility] Anion Gap 10 6 - 16 12/14/2023 9:33 PM [facility] BUN/Creatinine Ratio 37(H) 7 - 23 12/14/2023 9:33 PM [facility] Osmolality Calculated 296(H) 275 - 295 mOsm/kg 12/14/2023 9:33 PM [facility] Albumin/Globulin Ratio 0.7(L) 1.1 - 2.3 12/14/2023 9:33 PM [facility] eGFR by CKD-EPI >90 >=90 mL/min/1.7 3 m2 12/14/2023 9:33 PM [facility] Blood BLOOD SPECIMEN / Unknown Venipuncture / Unknown 12/14/2023 8:48 PM CDT 12/14/2023 8:57 PM CDT Omer Carr MD LAB - CHEMISTRY NIDHI VIEIRA [facility] Organization Address City/State/[facility] Co de Phone Number [facility] [address] [place] [address], [facility] [phone] * CBC W AUTO DIFFERENTIAL (12/14/2023 8:48 PM CDT) WBC 7.8 4.0 - 10.7 x10E9/L 12/14/2023 9:03 PM [facility] RBC Count 4.21 3.90 - 5.20 x10E12/L 12/14/2023 9:03 PM [facility] Hemoglobin 12.6 11.9 - 15.8 g/dL 12/14/2023 9:03 PM [facility] Hematocrit 35.4 34.8 - 46.1 % 12/14/2023 9:03 PM [facility] MCV 84.1 80.0 - 98.0 fL 12/14/2023 9:03 PM [facility] MCH 29.9 26.7 - 33.6 pg 12/14/2023 9:03 PM [facility] MCHC 35.6 31.7 - 36.3 g/dL 12/14/2023 9:03 PM [facility] RDW-CV 13.4 11.3 - 14.8 % 12/14/2023 9:03 PM [facility] Platelet Count 227 150 - 420 x10E9/L 12/14/2023 9:03 PM [facility] MPV 8.6 7.8 - 11.4 fL 12/14/2023 9:03 PM [facility] Neutrophil % 64.1 41.0 - 74.0 % 12/14/2023 9:03 PM [facility] Lymphocyte % 24.6 17.0 - 47.0 % 12/14/2023 9:03 PM [facility] Monocyte % 9.3 3.0 - 11.0 % 12/14/2023 9:03 PM [facility] Eosinophil % 1.3 0.0 - 7.0 % 12/14/2023 9:03 PM [facility] Basophil % 0.4 0.0 - 1.6 % 12/14/2023 9:03 PM [facility] Immature Granulocytes % 0.3 0.0 - 1.0 % 12/14/2023 9:03 PM [facility] Neutrophil Absolute 4.98 1.60 - 7.50 x10E9/L 12/14/2023 9:03 PM [facility] Lymphocyte Absolute 1.91 1.00 - 4.40 x10E9/L 12/14/2023 9:03 PM [facility] Monocyte Absolute 0.72 0.15 - 1.00 x10E9/L 12/14/2023 9:03 PM [facility] Eosinophil Absolute 0.10 0.00 - 0.60 x10E9/L 12/14/2023 9:[address] [facility] Basophil Absolute 0.03 0.00 - 0.13 x10E9/L 12/14/2023 9:[address] [facility] Blood BLOOD SPECIMEN / Unknown Venipuncture / Unknown 12/14/2023 8:48 PM CDT 12/14/2023 8:57 PM CDT Omer Carr MD LAB - HEMATOLOGY ORD ERABLES [facility] [address] [place] [address], [facility] [phone] documented in this encounter Visit Diagnoses Diagnosis [...] RN)1701 ($ Given - Provider: Jose Luis Merlos RN) 0939 ($ Given - Provider: Shandra [...] Smith RN) 802 ($ Given - Provider: Mginon Rocha, JULISSA) senna (Senokot) tablet 8.6 mg [...]
--- OUTSIDE RECORDS SUMMARY | 2024-08-23 19:05 | XMS_ITS | Encounter Summary ---
Author Organization [facility] Address [address] [place] [address] Care Team Providers Care Vegetable Preparer Name Role Phone Unavailable Primary Care Provider Unavailabl e Reason for Visit * Reason Onset Date Comments Transitional Care 12/20/2023 This RN contac phill patient to ensure she had follow up. Patient states she is going to see PCP, Wiliam Pacheco, couldn't give details. Encounter Details Date Type Department Care Team (Late st Contact Info) Description 12/20/2023 Telephone Transitional Care at [address] [id number] Ruba Mary, classifier tender (This RN contacted patient to ensure she [...] medical care, and heating? Somewhat hard 12/17/2023 [facility] - Occupational Stress [...] place to sleep or slept in a assisted (including now)? No 12/17/2023 Sex and Gender [...]
--- OUTSIDE RECORDS SUMMARY | 2024-08-23 19:05 | XMS_ITS | Encounter Summary ---
Author Organization [facility] Address [address] [place] [address]. 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 Gender Identity Not on file Sexual Orientation Not on file documented as of this encounter Plan of Treatment Not on file documented as of this encounter Procedures Procedure Name Priority Date/Time Associated Diagnosis Comments URINALYSIS Nurse Collected Priority 12/09/2015 12:10 PM CDT documented in this encounter Results * (ABNORMAL) URINALYSIS (12/09/2015 12:10 PM CDT) COLOR (U) YELLOW 12/09/2015 12:55 PM CDT [facility] TRANSPARENCY HAZY 12/09/2015 12:55 PM CDT [facility] SPECIFIC GRAVITY (U) 1.016 1.002 - 1.035 12/09/2015 12:55 PM CDT [facility] U PH 5.0 5 - 8 12/09/2015 12:55 PM CDT [facility] PROTEIN (U) NEGATIVE NEGATIVE 12/09/2015 12:55 PM CDT [facility] URINE GLUCOSE NEGATIVE NEGATIVE MG/DL 12/09/2015 12:55 PM CDT [facility] KETONES MG/DL (U) TRACE(A) NEGATIVE 12/09/2015 12:55 PM CDT [facility] BILIRUBIN (U) NEGATIVE NEGATIVE 12/09/2015 12:55 PM CDT [facility] BLOOD (U) SMALL(A) NEGATIVE 12/09/2015 12:55 PM CDT [facility] NITRITES POSITIVE(A) NEGATIVE 12/09/2015 12:55 PM CDT [facility] UROBILINOGEN NORMAL 0 - 1 EU/DL 12/09/2015 12:55 PM CDT [facility] LEUKOCYTES (U) SMALL(A) NEGATIVE 12/09/2015 12:55 PM CDT [facility] RBC/HPF 4 /HPF 12/09/2015 12:55 PM CDT [facility] WBC/HPF 74 /HPF 12/09/2015 12:55 PM CDT [facility] BACTERIA (U) PRESENT /HPF 12/09/2015 12:55 PM CDT [facility] SQUAMOUS EPITHELIALS 4 12/09/2015 12:55 PM CDT [facility] URINE SPECIMEN / Unknown 12/09/2015 12:10 PM CDT 12/09/2015 12:33 PM CDT us Generic Conversion Md BENNETT URINE ORDERABLES Final Result [facility] [place] [address], [id number] documented in this encounter Visit Diagnoses Not on filedocumented in this encounter Additional Health Concerns Infection Onset Date Last Indicated Resolved Time MRSA 07/06/2017 07/06/2017 documented as of this encounter
--- OUTSIDE RECORDS SUMMARY | 2024-08-23 19:05 | XMS_ITS | Encounter Summary ---
Author Organization [facility] Address [address] [place] [address] Care Team Providers Care Pattern Room Attendant Name Role Phone Unavailable Primary Care Provider Unavailabl e Reason for Visit * Reason Comments Transitional Care Encounter Details Date Type Department Care Team (Late st Contact Info) Description 12/19/2023 Transitional Care Transitional Care at [address] [id number] Ruba Mary, chain mortiser operator Social History Tobacco Use Types Packs/Day Years [...] medical care, and heating? Somewhat hard 12/17/2023 [facility] [place] of Occupat ional Health - Occupational Stress [...] place to sleep or slept in a chcf (including now)? No 12/17/2023 Sex and Gender [...] telephone: Patient with recent IP discharge from [facility] on 12/18/23 . This RN contacted Farzana Bran by telephone ([phone]) to complete 48 hour post-discharge follow-up contact for [facility] appointment. 1) How are you feeling? Patient [...] time. Patient was encouraged to call this freelance copywriter with questions, concerns, barriers to care, and/or additional resources if needed. Patient verbalized understanding and agreement with plan. This RN will continue to provide post-discharge monitoring until patient completes [facility] follow up. Call Duration: 5 min Ruba Mary RN, BSN Polymerization Supervisor, [facility] Office: [phone] 12/19/2023 documented in this encounter Plan of Treatment Not on file documented as of this encounter Visit Diagnoses Not on filedocumented in this encounter Additional Health Concerns Infection Onset Date Last Indicated Resolved Time COVID-19 Under Investigation 12/14/2023 12/14/2023 12/25/2023 4:33 AM CDT MRSA Hx 12/17/2023 12/17/2023 documented as of this encounter
--- OUTSIDE RECORDS SUMMARY | 2024-08-23 19:05 | XMS_ITS | Encounter Summary ---
Author Organization [facility] Address [address] [place] [address]. [place] [address] [place] [address] Care Team Providers Care Hide Buyer Name Role Phone Nayana Garber Primary Care Provider [phone] Reason for Visit * Auth/Cert Specialty Diagnoses / Procedures Referred By Rebekah geiger Referred To Contact Diagnoses BONE SPUR M25.775 Procedures RESECTION OF BONE LEFT GREAT TOE Marcell Caceres DPM [address] [place] [address] Phone: tel: fax: Referral ID Status Reason Start Date Expiration Date Visits Re quested Visits Authorized [id number] 1 1 Encounter Details Date Type Department Care Team (Late st Contact Info) Description 01/14/2024 9:07 AM CDT - 01/14/2024 10:27 AM CDT Surgery [place] [place], [place] [id number] Marcell Caceres DPM [address] [place], [place] [id number] RESECTION OF BONE LEFT GREAT TOE Surgery [...] on file 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 Gender Identity Not on file Sexual Orientation [...] of the Foot or Toe Discharge Instructions (Nepali) documented in this encounter Medications at Time [...] 12/13 [facility] CXD 12/13SCHED BY FAX 11/27/2023 [facility] Special Needs LOCAL POCT GLUCOSE - BUSH DOCKED DEVICE Routine 01/14/2024 8:28 AM CDT documented in this encounter Results * (ABNORMAL) POCT glucose (01/14/2024 8:28 AM CDT) GLUCOSE POC 138(H) 70 - 99 mg/dL 01/14/2024 8:31 AM CDT [facility] 01/14/2024 8:28 AM CDT Marcell Caceres DPM POCT ORDERABLES - DEVICE Final Result [facility] [address] [place] [address], documented in this encounter Visit Diagnoses Not [...] documented as of this encounter Care Teams Hide Buyer Relationship Specialty Start Date End Date Nayana Garber PA [address] [place] [address] PCP - General PHYSICIAN DIMENSIONAL INSPECTOR 12/07/23 documented as of this encounter
--- OUTSIDE RECORDS SUMMARY | 2024-08-23 19:05 | XMS_ITS | Encounter Summary ---
Author Organization [facility] Address [address] [facility] [place] [address] Care Team Providers Care Termite Control Service Representative Name Role Phone Unavailable Primary Care Provider Unavailabl e Encounter Details Date Type Department Care Team (Late st Contact Info) Description 12/11/2023 Ophth Exam [facility] - Ophthalmology [address] [place] [id number] Miya Crooks MD [address] [place] [id number] Social History Tobacco Use Types Packs/Day Years [...] medical care, and heating? Somewhat hard 12/11/2023 [facility] [place] of Occupat ional Health - Occupational Stress [...] place to sleep or slept in a custodial (including now)? No 12/11/2023 Sex and Gender [...]
--- OUTSIDE RECORDS SUMMARY | 2024-08-23 19:05 | XMS_ITS | Encounter Summary ---
Author Organization [facility] Address [address] [place] [address]. 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 Gender Identity Not on file Sexual [...] - 147 MMOL/L 12/09/2015 12:58 PM CDT [facility] POTASSIUM S/P/B 4.1 3.5 - 5.0 MMOL/L 12/09/2015 12:58 PM CDT [facility] CHLORIDE S/P/B 102 98 - 107 MMOL/L 12/09/2015 12:58 PM CDT [facility] CO2 20.0(L) 22 - 29 MMOL/L 12/09/2015 12:58 PM CDT [facility] BUN 9 7 - 19 MG/DL 12/09/2015 12:58 PM CDT [facility] CREATININE S/P/B 0.72 0.60 - 1.10 MG/DL 12/09/2015 12:58 PM CDT [facility] CALCIUM S/P/B 9.7 8.4 - 10.2 MG/DL 12/09/2015 12:58 PM CDT [facility] ANION GAP 14.0 MMOL/L 12/09/2015 12:58 PM CDT [facility] EGFR NON-AFR. AMER. 86 >60 ML/MIN/1.7 3 M2 12/09/2015 12:58 PM CDT [facility] EGFR AFR. AMER. 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
--- OUTSIDE RECORDS SUMMARY | 2024-08-23 19:05 | XMS_ITS | Encounter Summary ---
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 [facility] Glucose 232(H) 70 - 115 mg/dL 12/10/2023 8:09 PM [facility] Calcium 10.0 8.4 - 10.2 mg/dL 12/10/2023 8:09 PM CDT [facility] Anion Gap 10 6 - 16 12/10/2023 8:09 PM T [facility] BUN/Creatinine Ratio 22 7 - 23 12/10/2023 8:09 PM T [facility] Osmolality Calculated 299(H) 275 - 295 mOsm/kg 12/10/2023 8:09 PM [facility] eGFR by CKD-EPI >90 >=90 mL/min/1.7 3 m2 12/10/2023 8:09 PM T [facility] Blood BLOOD SPECIMEN / Unknown Venipuncture / Unknown 12/10/2023 7:33 PM CDT 12/10/2023 7:38 PM CDT Francois Osborn MD LAB - CHEMISTRY ORDE ISHA [facility] [address] [place] [address], [facility] [phone] * ALCOHOL ETHYL BLOOD (12/10/2023 7:33 PM CDT) Ethanol (mg/dL) <10 <10 mg/dL 8:09 PM [facility] Ethanol Calculated (g/dL) <0.010 <=0.010 g/dL 12/10/2023 8:09 PM T [facility] Blood BLOOD SPECIMEN / Unknown Venipuncture / Unknown 12/10/2023 7:33 PM CDT 12/10/2023 7:38 PM CDT Narrative [facility] - 12/10/2023 8:09 PM CDT Ethanol Interp <10: None Detected. 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
--- OUTSIDE RECORDS SUMMARY | 2024-08-23 19:05 | XMS_ITS | Encounter Summary ---
Author Organization [facility] Address [address] [facility] [place] [address] Care Team Providers Care Director Of Corporate Marketing Name Role Phone Unavailable Primary Care Provider Unavailabl e Encounter Details Date Type Department Care Team (Late st Contact Info) Description 12/18/2023 Orders Only [facility] ACUTE [address] [place] [id number] Mignon Montoya MD [address] [place] [address] Pain, unspecified Social History Tobacco Use Types [...] medical care, and heating? Somewhat hard 12/17/2023 [facility] - Occupational Stress [...] place to sleep or slept in a fpc (including now)? No 12/17/2023 Sex and Gender [...]
--- OUTSIDE RECORDS SUMMARY | 2024-08-23 19:05 | XMS_ITS | Encounter Summary ---
Author Organization [facility] Address [address] [place] [address]. [place] [address] [place] [address] Care Team Providers Care Supervisor Border Department Name Role Phone Nayana Garber Primary Care Provider [phone] Reason for Visit * Auth/Cert Specialty Diagnoses / Procedures Referred By Rebekah geiger Referred To Contact Diagnoses BONE SPUR M25.775 Procedures RESECTION OF BONE LEFT GREAT TOE Marcell Caceres DPM [address] [place] [address] Phone: tel: fax: Referral ID Status Reason Start Date Expiration Date Visits Re quested Visits Authorized [id number] 1 1 Encounter Details Date Type Department Care Team (Latest Contact Info) Description 01/14/2024 7:34 AM CDT - 01/14/2024 9:50 AM CDT Hospital Encounter [facility] [place] [id number] Marcell Caceres DPM [address] [place] [address] Discharge Disposition: Home or Self [...] on file 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 Gender Identity Not on file Sexual Orientation [...] of the Foot or Toe Discharge Instructions (Kinyarwanda) documented in this encounter Medications at Time [...] - 99 mg/dL 01/14/2024 8:31 AM CDT [facility] 01/14/2024 8:28 AM CDT us Marcell Caceres DPM POCT ORDERABLES - DEVICE Final Result [facility] [address] [place] [address], documented in this encounter Visit Diagnoses Diagnosis [...] documented as of this encounter Care Teams Supervisor Border Department Relationship Specialty Start Date End Date Nayana Garber PA [address] [place] [address] PCP - General PHYSICIAN [employer]ED [employer] SPOT PICKER 12/07/23 documented as of this encounter
--- OUTSIDE RECORDS SUMMARY | 2024-08-23 19:05 | XMS_ITS | Patient Health Summary ---
Author Organization [facility] Address [address] 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 This disclosure is being madepursuant to the Care Everywhere program and may not contain all information available regarding this patient. Last updated 18.[facility] Allergies * Naproxen(Urticaria) -Medium Criticality Medications * [...] medical care, and heating? Somewhat hard 12/17/2023 [facility] Myra of Occupat ional Health - Occupational Stress [...] place to sleep or slept in a long-term (including now)? No 12/17/2023 Sex and Gender [...] HCG BETA BLOOD QUANTITATIVE(Performed 12/10/2023) * PT-INR [facility](Performed 12/10/2023) * CBC W AUTO DIFFERENTIAL(Performed 12/10/2023) * BASIC METABOLIC PANEL (CALCIUM TOTAL)(Performed 12/10/2023) * ALCOHOL ETHYL BLOOD(Performed 12/10/2023) Results * (ABNORMAL) GLUCOSE - POINT OF CARE (12/18/2023 7:12 PM CDT) Only the most recent of40 resultswithin the time period is included. Pathologist [facility] Glucose WB/POC 118(H) 70 - 115 mg/dL 12/20/2023 11:37 AM CDT [facility] Specimen Type Arterial 12/20/2023 11:37 AM [facility] Blood BLOOD SPECIMEN / Unknown 12/18/2023 7:12 PM CDT 12/20/2023 11:37 AM CDT Ho Parada MD LAB - POINT OF CARE ORDERABLES [id number] [place] [address], [facility] [phone] * CT HEAD WO CONTRAST (12/15/2023 9:42 [...] 12/10/2023. Report dictated by Jeaneth Ferrari MD (residential fee appraiser). I, Greg Molina MD have personally reviewed and interpreted this examination/study. > Interpreting Provider: Greg Molina MD on 12/15/2023 1:33 PM Narrative 12/15/2023 1:33 PM CDT PROCEDURE: ??CT HEAD WO CONTRAST, DATE/TIME OF EXAM: ??12/15/2023 9:42 AM, LOCATION ??[facility] INDICATION: S09.90XA: Traumatic injury of head, initial [...] DATE/TIME OF EXAM: 12/15/2023 9:42 AM, LOCATION [facility] INDICATION: S09.90XA: Traumatic injury of head, initial [...] 12/10/2023. Report dictated by Jeaneth Ferrari MD (residential fee appraiser). IGreg MD have personally reviewed and interpreted this examination/study. > Interpreting Provider: Greg Molina MD on 12/15/2023 1:33 PM FridaCastro Berrios SUPERVISOR [employer] DEPARTMENT-HEAD OF STORE OPERATIONS CT ORDERABLES * XR CHEST 1VW PORTABLE (12/14/2023 8:52 PM CDT) Only the most recent of2 resultswithin the time period is included. Anatomical Region Laterality Modality Chest Radiographic Evelina ging 12/14/2023 8:55 PM CDT Narrative 12/14/2023 8:58 PM CDT PROCEDURE: ??XR CHEST 1VW PORTABLE, DATE/TIME OF EXAM: ??12/14/2023 8:52 PM, LOCATION ??[facility] INDICATION: R06.02: SOB (shortness of breath) ADDITIONAL CLINICAL INFORMATION: Ordering Provider Reason For Exam: ??sob Technologist Note: Additional: COMPARISON: 12/10/2023 FINDINGS/IMPRESSION: Mild interstitial opacity could be pulmonary edema. No focal consolidation, pleural effusion, or pneumothorax. Report dictated by Deepak Goddard DO (residential fee appraiser). IBernardino MD have personally reviewed and interpreted this examination/study. > Interpreting Provider: Bernardino Key MD on 12/14/2023 8:58 PM Procedure Note Bernardino Key MD - 12/14/2023 PROCEDURE: XR CHEST 1VW PORTABLE, DATE/TIME OF EXAM: 12/14/2023 8:52 PM, LOCATION [facility] INDICATION: R06.02: SOB (shortness of breath) ADDITIONAL CLINICAL INFORMATION: Ordering Provider Reason For Exam: sob Technologist Note: Additional: COMPARISON: 12/10/2023 FINDINGS/IMPRESSION: Mild interstitial opacity could be pulmonary edema.No focal consolidation, pleural effusion, or pneumothorax. Report dictated by Deepak Goddard DO (residential fee appraiser). I, Bernardino Key MD have personally reviewed and interpreted this examination/study. > Interpreting Provider: Bernardino Key MD on 12/14/2023 8:58 PM Fani Cao MD DIAGNOSTIC IMAGING O RDERABLES * CBC W AUTO DIFFERENTIAL (12/14/2023 8:48 PM CDT) Only the most recent of2 resultswithin the time period is included. WBC 7.8 4.0 - 10.7 x10E9/L 12/14/2023 9:03 PM [facility] RBC Count 4.21 3.90 - 5.20 x10E12/L 12/14/2023 9:03 PM [facility] Hemoglobin 12.6 11.9 - 15.8 g/dL 12/14/2023 9:03 PM [facility] Hematocrit 35.4 34.8 - 46.1 % 12/14/2023 9:03 PM [facility] MCV 84.1 80.0 - 98.0 fL 12/14/2023 9:03 PM [facility] MCH 29.9 26.7 - 33.6 pg 12/14/2023 9:03 PM [facility] MCHC 35.6 31.7 - 36.3 g/dL 12/14/2023 9:03 PM [facility] RDW-CV 13.4 11.3 - 14.8 % 12/14/2023 9:03 PM [facility] Platelet Count 227 150 - 420 x10E9/L 12/14/2023 9:03 PM [facility] MPV 8.6 7.8 - 11.4 fL 12/14/2023 9:03 PM [facility] Neutrophil % 64.1 41.0 - 74.0 % 12/14/2023 9:03 PM [facility] Lymphocyte % 24.6 17.0 - 47.0 % 12/14/2023 9:03 PM [facility] Monocyte % 9.3 3.0 - 11.0 % 12/14/2023 9:03 PM [facility] Eosinophil % 1.3 0.0 - 7.0 % 12/14/2023 9:03 PM [facility] Basophil % 0.4 0.0 - 1.6 % 12/14/2023 9:03 PM [facility] Immature Granulocytes % 0.3 0.0 - 1.0 % 12/14/2023 9:03 PM [facility] Neutrophil Absolute 4.98 1.60 - 7.50 x10E9/L 12/14/2023 9:03 PM [facility] Lymphocyte Absolute 1.91 1.00 - 4.40 x10E9/L 12/14/2023 9:03 PM [facility] Monocyte Absolute 0.72 0.15 - 1.00 x10E9/L 12/14/2023 9:03 PM [facility] Eosinophil Absolute 0.10 0.00 - 0.60 x10E9/L 12/14/2023 9:03 PM [facility] Basophil Absolute 0.03 0.00 - 0.13 x10E9/L 12/14/2023 9:03 PM [facility] Blood BLOOD SPECIMEN / Unknown Venipuncture / Unknown 12/14/2023 8:48 PM CDT 12/14/2023 8:57 PM [facility] Omer Carr MD LAB - HEMATOLOGY ORD ERABLES [facility] [address] [place] [address], [facility] [phone] * (ABNORMAL) COMPREHENSIVE METABOLIC PANEL (12/14/2023 8:48 PM [facility]) [facility] BUN 24 7 - 26 mg/dL 12/14/2023 9:33 PM [facility] Creatinine 0.65 0.56 - 0.96 mg/dL 12/14/2023 9:33 PM [facility] Sodium 137 136 - 145 mmol/L 12/14/2023 9:33 PM [facility] Potassium 4.2 3.5 - 4.5 mmol/L 12/14/2023 9:33 PM [facility] Chloride 101 98 - 107 mmol/L 12/14/2023 9:33 PM [facility] CO2 26 22 - 29 mmol/L 12/14/2023 9:33 PM [facility] Glucose 246(H) 70 - 115 mg/dL 12/14/2023 9:33 PM [facility] Calcium 10.3(H) 8.4 - 10.2 mg/dL 12/14/2023 9:33 PM [facility] Protein Total 7.8 6.0 - 8.3 g/dL 12/14/2023 9:33 PM [facility] Albumin 3.1(L) 3.4 - 5.0 g/dL 12/14/2023 9:33 PM [facility] Bilirubin Total 0.6 0.2 - 1.2 mg/dL 12/14/2023 9:33 PM [facility] Alkaline Phosphatase 135 40 - 150 U/L 12/14/2023 9:33 PM [facility] ALT 17 5 - 55 U/L 12/14/2023 9:33 PM [facility] AST 26 5 - 34 U/L 12/14/2023 9:33 PM [facility] Anion Gap 10 6 - 16 12/14/2023 9:33 PM [facility] BUN/Creatinine Ratio 37(H) 7 - 23 12/14/2023 9:33 PM [facility] Osmolality Calculated 296(H) 275 - 295 mOsm/kg 12/14/2023 9:33 PM [facility] Albumin/Globulin Ratio 0.7(L) 1.1 - 2.3 12/14/2023 9:33 PM CDT [facility] eGFR by CKD-EPI >90 >=90 mL/min/1.7 3 m2 12/14/2023 9:33 PM CDT [facility] Blood BLOOD SPECIMEN / Unknown Venipuncture / Unknown 12/14/2023 8:48 PM CDT 12/14/2023 8:57 PM CDT Omer Carr MD LAB - CHEMISTRY [facility] [address] [address], [place] [phone] * PHOSPHORUS BLOOD (12/14/2023 8:48 PM CDT) Only the most recent of3 resultswithin the time period is included. Phosphorus 3.4 2.9 - 5.1 mg/dL 12/14/2023 9:28 PM CDT [facility] Blood BLOOD SPECIMEN / Unknown Venipuncture / Unknown 12/14/2023 8:48 PM CDT 12/14/2023 8:57 PM CDT Omer Carr MD LAB - CHEMISTRY [facility] Performing Organization Address City/[facility]/ZIP Co de Phone Number [address] [address], [place] [phone] * MAGNESIUM BLOOD (12/14/2023 8:48 PM CDT) Only the most recent of3 resultswithin the time period is included. Magnesium 2.0 1.6 - 2.6 mg/dL 12/14/2023 9:28 PM CDT [facility] Blood BLOOD SPECIMEN / Unknown Venipuncture / Unknown 12/14/2023 8:48 PM CDT 12/14/2023 8:57 PM CDT Omer Carr MD LAB - CHEMISTRY [facility] [place] [address] [place] [address], [facility] [phone] * (ABNORMAL) HEPATIC FUNCTION PANEL (12/13/2023 4:10 AM CDT) [facility] Protein Total 7.6 6.0 - 8.3 g/dL 5:02 AM [facility] Albumin 3.0(L) 3.4 - 5.0 g/dL 12/13/2023 5:02 AM [facility] Bilirubin Total 0.6 0.2 - 1.2 mg/dL 09/2023 5:02 AM [facility] Bilirubin Conjugated 0.3 0.1 - 0.5 mg/dL 12/13/2023 5:02 AM [facility] Bilirubin Unconjugated 0.3 Unconjugated Bilirubin is a calculated value: Reference ranges have not been established. mg/dL 12/13/2023 5:02 AM [facility] Alkaline Phosphatase 112 40 - 150 U/L 12/13/2023 5:02 AM [facility] ALT 11 5 - 55 U/L 12/13/2023 5:02 AM [facility] AST 19 5 - 34 U/L 12/13/2023 5:02 AM [facility] Albumin/Globulin Ratio 0.7(L) 1.1 - 2.3 12/13/2023 5:02 AM [facility] Blood BLOOD SPECIMEN / Unknown Lab Venipuncture / Unknown 12/13/2023 4:10 AM CDT 12/13/2023 4:43 AM CDT Jose Rafael Carreon SUPERVISOR [employer] DEPARTMENT-[facility] LAB - CHEMISTRY ORDERABLES [facility] [address] [place] [address], [facility] [phone] * (ABNORMAL) CBC W/O DIFFERENTIAL (12/12/2023 3:23 AM CDT) Only the most recent of2 resultswithin the time period is included. [facility] WBC 5.0 4.0 - 10.7 x10E9/L 12/12/2023 5:00 AM [facility] RBC Count 3.77(L) 3.90 - 5.20 x10E12/L 12/12/2023 5:00 AM [facility] Hemoglobin 11.2(L) 11.9 - 15.8 g/dL 12/12/2023 5:00 AM [facility] Hematocrit 32.8(L) 34.8 - 46.1 % 12/12/2023 5:00 AM [facility] MCV 87.0 80.0 - 98.0 fL 12/12/2023 5:00 AM [facility] MCH 29.7 26.7 - 33.6 pg 12/12/2023 5:00 AM [facility] MCHC 34.1 31.7 - 36.3 g/dL 12/12/2023 5:00 AM [facility] RDW-CV 13.6 11.3 - 14.8 % 12/12/2023 5:00 AM [facility] Platelet Count 214 150 - 420 x10E9/L 12/12/2023 5:00 AM [facility] MPV 8.8 7.8 - 11.4 fL 12/12/2023 5:00 AM [facility] Blood BLOOD SPECIMEN / Unknown Lab Venipuncture / Unknown 12/12/2023 3:23 AM CDT 12/12/2023 4:34 AM T Ganesh Diaz MD LAB - HEMATOLOGY OR DERABLES [facility] [address] [place] [address], [facility] [phone] * (ABNORMAL) BASIC METABOLIC PANEL (CALCIUM TOTAL) (12/12/2023 3:23 AM CDT) Only the most recent of3 resultswithin the time period is included. BUN 14 7 - 26 mg/dL 12/12/2023 5:02 AM [facility] Creatinine 0.56 0.56 - 0.96 mg/dL 12/12/2023 5:02 AM [facility] Sodium 134(L) 136 - 145 mmol/L 12/12/2023 5:02 AM [facility] Potassium 3.8 3.5 - 4.5 mmol/L 12/12/2023 5:02 AM [facility] Chloride 103 98 - 107 mmol/L 12/12/2023 5:02 AM [facility] CO2 25 22 - 29 mmol/L 12/12/2023 5:02 AM [facility] Glucose 191(H) 70 - 115 mg/dL 12/12/2023 5:02 AM [facility] Calcium 8.3(L) 8.4 - 10.2 mg/dL 12/12/2023 5:02 AM [facility] Anion Gap 6 6 - 16 12/12/2023 5:02 AM [facility] BUN/Creatinine Ratio 25(H) 7 - 23 12/12/2023 5:02 AM [facility] Osmolality Calculated 284 275 - 295 mOsm/kg 12/12/2023 5:02 AM [facility] eGFR by CKD-EPI >90 >=90 mL/min/1.7 3 m2 12/12/2023 5:02 AM [facility] Blood BLOOD SPECIMEN / Unknown Lab Venipuncture / Unknown 12/12/2023 3:23 AM CDT 12/12/2023 4:34 AM CDT Ganesh Diaz MD LAB - CHEMISTRY ORD ERABLES [facility] [address] [place] [address], [facility] [phone] * XR SHOULDER RIGHT 2VW OR MORE (12/11/2023 3:10 PM CDT) Anatomical Region Laterality Modality Upper Extremity Radiographic Evelina ging 12/11/2023 2:56 PM CDT Impressions 12/11/2023 3:17 PM CDT IMPRESSION: No acute fracture or dislocation identified. Report dictated by Simone Frey MD (residential fee appraiser). Diane Linares MD have personally reviewed and interpreted this examination/study. > Interpreting Provider: Diane Wheeler MD on 12/11/2023 3:17 PM Narrative 12/11/2023 3:17 PM CDT PROCEDURE: ??XR SHOULDER RIGHT 2VW OR MORE, DATE/TIME OF EXAM: ??12/11/2023 2:15 PM, LOCATION ??[facility] INDICATION: V00.831A: Fall from motorized [...] DATE/TIME OF EXAM: 12/11/2023 2:15 PM, LOCATION [facility] INDICATION: V00.831A: Fall from motorized [...] Report dictated by Simone Frey MD (residential fee appraiser). Diane Linares MD have personally reviewed and interpreted this examination/study. > Interpreting Provider: Diane Wheeler MD on 12/11/2023 3:17 PM Justyna Razo SUPERVISOR [employer] DEPARTMENT-[facility] DIAGNOSTIC IMAGIN G ORDERABLES * XR HAND LEFT 3VW OR MORE (12/11/2023 3:00 PM CDT) Anatomical Region Laterality Modality Wrist / Hand Radiographic Evelina ging 12/11/2023 2:58 PM CDT Impressions 12/11/2023 3:19 PM CDT IMPRESSION: 1.No acute fracture or dislocation identified. 2.Mild osteoarthritis. Report dictated by Simone Frey MD (residential fee appraiser). IDiane MD have personally reviewed and interpreted this examination/study. > Interpreting Provider: Diane Wheeler MD on 12/11/2023 3:19 PM Narrative 12/11/2023 3:19 PM CDT PROCEDURE: ??XR HAND LEFT 3VW OR MORE, DATE/TIME OF EXAM: ??12/11/2023 2:15 PM, LOCATION ??[facility] INDICATION: V00.831A: Fall from motorized [...] DATE/TIME OF EXAM: 12/11/2023 2:15 PM, LOCATION [facility] INDICATION: V00.831A: Fall from motorized [...] Report dictated by Simone Frey MD (residential fee appraiser). Diane Linares MD have personally reviewed and interpreted this examination/study. > Interpreting Provider: Diane Wheeler MD on 12/11/2023 3:19 PM Justyna Razo SUPERVISOR [employer] DEPARTMENT-[facility] DIAGNOSTIC IMAGIN G ORDERABLES * CT TEMPORAL BONES WO CONTRAST (12/11/2023 6:14 AM CDT) Anatomical Region Laterality Modality Head Computed Tomogra phy 12/11/2023 7:21 AM CDT Impressions 12/11/2023 2:13 PM CDT IMPRESSION: 1.No evidence of acute fracture of the bilateral temporal bones. The report is dictated by Juventino Pierre MD, (Supervisor Sewing Room) Gosia Linares MD have personally reviewed and interpreted this examination/study. > Interpreting Provider: Gosia Wilson MD on 12/11/2023 2:13 PM Narrative 12/11/2023 2:13 PM CDT PROCEDURE: ??CT TEMPORAL BONES WO CONTRAST, DATE/TIME OF EXAM: ??12/11/2023 6:14 AM, LOCATION ??[facility] INDICATION: V00.831A: Fall from motorized [...] DATE/TIME OF EXAM: 12/11/2023 6:14 AM, LOCATION [facility] INDICATION: V00.831A: Fall from motorized [...] report is dictated by Juventino Pierre MD, (Supervisor Sewing Room) I, Gosia Wilson MD have personally reviewed and interpreted this examination/study. > Interpreting Provider: Gosia Wilson MD on 12/11/2023 2:13 PM Snehal Miller MD CT ORDERABLES * (ABNORMAL) HEMOGLOBIN A1C (12/11/2023 5:13 AM CDT) Hemoglobin A1c 8.4(H) <=5.6 % 12/11/2023 9:24 AM CDT [facility] Estimated Average Glucose 194 mg/dL 12/11/2023 9:24 AM CDT [facility] Comment: HbA1c Interpretation: Normal : < 5.7% Pre-diabetes: 5.7-6.4% Diabetes: Equal to or greater than 6.5% Test results diagnostic of diabetes should be repeated for confirmation. Treatment target values recommended by ADA and other clinical organizations should be used to evaluate metabolic control in patients. Reference: [place] [employer], Standards of Care in Diabetes [...] Diaz MD LAB - CHEMISTRY ORD ERABLES [facility] [address] [place] [address], [facility] [phone] * (ABNORMAL) URINE DRUG SCREEN IMMUNOASSAY (12/10/2023 10:30 PM CDT) Amphetamines Screen Urine Positive(A) Negative : < 1000 ng/mL 12/10/2023 10:53 PM CDT [facility] Comment: Positive urine amphetamine screening results should be confirmed by another generally accepted non-immunological method such as gas chromatography or mass spectrometry. ? Barbiturates Screen Urine Negative Negative : < 200 ng/mL 12/10/2023 10:53 PM [facility] Benzodiazepine Screen Urine Positive(A) Negative : < 200 ng/mL 12/10/2023 10:53 PM [facility] Comment: Positive urine benzodiazepine screening results should be confirmed by another generally accepted non-immunological method such as gas chromatography or mass spectrometry. ? Opiates Urine Negative Negative : < 300 ng/mL 12/10/2023 10:53 PM [facility] Cocaine Metabolites Urine Negative Negative : < 300 ng/mL 12/10/2023 10:53 PM [facility] Phencyclidine Screen Urine Negative Negative : < 25 ng/ml 12/10/2023 10:53 PM [facility] Cannabinoids Screen Urine Positive(A) Negative : <50 ng/mL 12/10/2023 10:53 PM [facility] Comment:Positive urine canna binoids (THC) screening results should be confirmed by another generally accepted non-immunological method such as gas chromatography or mass spectrometry. Methadone Screen Urine Negative Negative : < 300 ng/mL 12/10/2023 10:53 PM [facility] Fentanyl Screen Urine Negative Negative : <1.5 ng/mL 12/10/2023 10:53 PM [facility] Urine URINE / Unknown Collection / Unknown 12/10/2023 10:30 PM CDT 12/10/2023 10:33 PM CDT [facility] - 12/10/2023 10:53 PM CDT The Urine Toxicology Screening Panel does not screen for Propoxyphene, Meprobamate, Carisoprodol, Trazodone, rqpz-axy-gumzvbi medications and/or volatiles (Acetone, Isopropanol, Methanol or Ethylene Glycol). Ethanol, Salicylate, Acetaminophen, Tricyclic Antidepressants and several therapeutic drugs may be individually assayed in serum or plasma specimen. Toxicology testing by the [facility] is an aid to medical diagnosis and treatment of patients. No documented chain of custody was maintained. Results are intended to be used for clinical purposes only. ? Francois Osborn MD LAB - URINE CHEMISTR Y ORDERABLES Performing Organization Address [facility] de Phone Number [facility] [address] [place] [address], [place] [phone] * BLOOD TYPE VERIFICATION (12/10/2023 8:09 PM CDT) ABO Rh O NEG 12/10/2023 8:4 9 PM CDT [facility] Blood Bank BLOOD SPECIMEN / Unknown Lab Venipuncture / Unknown 12/10/2023 8:09 PM CDT 12/10/2023 8:26 PM CDT Chichi Peña MD LAB - BLOOD BANK ORD ERABLES Performing Organization Address [facility] de Phone Number [facility] [address] [place] [address], [place] [phone] * CT CHEST ABDOMEN PELVIS W CONT [...] > Dictated by Jimmy Murphy DO (residential fee appraiser). I, Jamshid Geller MD have personally reviewed and interpreted this examination/study. > Interpreting Provider: Jamshid Geller MD on 12/10/2023 8:46 PM Narrative 12/10/2023 8:46 PM CDT PROCEDURE: ??CT CHEST ABDOMEN PELVIS W CONT, DATE/TIME OF EXAM: ??12/10/2023 7:58 PM, LOCATION ??[facility] INDICATION: Trauma ADDITIONAL CLINICAL INFORMATION: [...] CONT, DATE/TIME OF EXAM:12/10/2023 7:58 PM, LOCATION [facility] INDICATION: Trauma ADDITIONAL CLINICAL INFORMATION: [...] > Dictated by Jimmy Murphy DO (residential fee appraiser). I, Jamshid Geller MD have personally reviewed [...] is dictated by Jeaneth Ferrari MD (residential fee appraiser) I, Giovani Wynne MD have personally reviewed and interpreted this examination/study. > Interpreting Provider: Giovani Wynne MD on 12/11/2023 12:03 AM Narrative 12/11/2023 12:03 AM CDT PROCEDURE: ??CT HEAD WO CONTRAST, CT FACIAL BONES WO CONTRAST, CT LUMBAR SPINE WO CONTRAST, CT THORACIC SPINE WO CONTRAST, CT CERVICAL SPINE WO CONTRAST, DATE/TIME OF EXAM: ??12/10/2023 7:58 PM, LOCATION ??[facility] INDICATION: Trauma EXAMINATION: 1.Computed tomography [...] DATE/TIME OF EXAM: 12/10/2023 7:58 PM, LOCATION [facility] INDICATION: Trauma EXAMINATION: 1.Computed tomography [...] is dictated by Jeaneth Ferrari MD (residential fee appraiser) I, Giovani Wynne MD have personally reviewed [...] is dictated by Jeaneth Ferrari MD (residential fee appraiser) I, Giovani Wynne MD have personally reviewed and interpreted this examination/study. > Interpreting Provider: Giovani Wynne MD on 12/11/2023 12:03 AM Narrative 12/11/2023 12:03 AM CDT PROCEDURE: ??CT HEAD WO CONTRAST, CT FACIAL BONES WO CONTRAST, CT LUMBAR SPINE WO CONTRAST, CT THORACIC SPINE WO CONTRAST, CT CERVICAL SPINE WO CONTRAST, DATE/TIME OF EXAM: ??12/10/2023 7:58 PM, LOCATION ??[facility] INDICATION: Trauma EXAMINATION: 1.Computed tomography [...] DATE/TIME OF EXAM: 12/10/2023 7:58 PM, LOCATION [facility] INDICATION: Trauma EXAMINATION: 1.Computed tomography [...] is dictated by Jeaneth Ferrari MD (residential fee appraiser) I, Giovani Wynne MD have personally reviewed and interpretedthis examination/study. > Interpreting Provider: Giovani Wynne MD on 12/11/2023 12:03 AM Franocis Osborn MD CT ORDERABLES * CT CERVICAL [...] is dictated by Jeaneth Ferrari MD (residential fee appraiser) I, Giovani Wynne MD have personally reviewed and interpreted this examination/study. > Interpreting Provider: Giovani Wynne MD on 12/11/2023 12:03 AM Narrative 12/11/2023 12:03 AM CDT PROCEDURE: ??CT HEAD WO CONTRAST, CT FACIAL BONES WO CONTRAST, CT LUMBAR SPINE WO CONTRAST, CT THORACIC SPINE WO CONTRAST, CT CERVICAL SPINE WO CONTRAST, DATE/TIME OF EXAM: ??12/10/2023 7:58 PM, LOCATION ??[facility] INDICATION: Trauma EXAMINATION: 1.Computed tomography [...] DATE/TIME OF EXAM: 12/10/2023 7:58 PM, LOCATION [facility] INDICATION: Trauma EXAMINATION: 1.Computed tomography [...] is dictated by Jeaneth Ferrari MD (residential fee appraiser) I, Giovani Wynne MD have personally reviewed [...] is dictated by Jeaneth Ferrari MD (residential fee appraiser) I, Giovani Wynne MD have personally reviewed and interpreted this examination/study. > Interpreting Provider: Giovani Wynne MD on 12/11/2023 12:03 AM Narrative 12/11/2023 12:03 AM CDT PROCEDURE: ??CT HEAD WO CONTRAST, CT FACIAL BONES WO CONTRAST, CT LUMBAR SPINE WO CONTRAST, CT THORACIC SPINE WO CONTRAST, CT CERVICAL SPINE WO CONTRAST, DATE/TIME OF EXAM: ??12/10/2023 7:58 PM, LOCATION ??[facility] INDICATION: Trauma EXAMINATION: 1.Computed tomography [...] DATE/TIME OF EXAM: 12/10/2023 7:58 PM, LOCATION [facility] INDICATION: Trauma EXAMINATION: 1.Computed tomography [...] is dictated by Jeaneth Ferrari MD (residential fee appraiser) IGiovani MD have personally reviewed and interpretedthis [...] Report dictated by Jeaneth Ferrari MD (residential fee appraiser). Jamshid Linares MD have personally reviewed and [...] Report dictated by Jeaneth Ferrari MD (residential fee appraiser). I, Jamshid Geller MD have personally reviewed and interpreted this examination/study. > Interpreting Provider: Jamshid Geller MD on 12/10/2023 9:13 PM Francois Osborn MD DIAGNOSTIC IMAGING O RDERABLES * PT-INR [facility] (12/10/2023 7:33 PM CDT) PT 14.1 12.1 - 14.8 Seconds 12/10/2023 8:01 PM CDT [facility]OSP[facility] INR 1.1 See Comment 12/10/2023 8:01 PM CDT [facility] Comment:The suggested therap eutic range for standard coumadin (warfarin) therapy is an INR of 2.0-3.0. For high-risk patients (Mechanical Mitral Valve Prosthesis, etc.), the suggested prophylactic therapeutic range is an INR of 2.5-3.5. Blood BLOOD SPECIMEN / Unknown Venipuncture / Unknown 12/10/2023 7:33 PM CDT 12/10/2023 7:37 PM CDT Francois Osborn MD LAB - COAGULATION OR DERABLES Performing Organization Address City/[facility] Co de Phone Number [address] [address], [place] [phone] * TYPE + SCREEN PANEL (12/10/2023 7:33 PM CDT) Antibody Screen NEG 8:21 PM CDT [facility] BLOOD BANK LAB ABO Rh O NEG 12/10/2023 8:21 PM CDT [facility] B[facility]OD [facility]ANK LAB Blood Bank BLOOD SPECIMEN / Unknown Venipuncture / Unknown 12/10/2023 7:33 PM CDT 12/10/2023 7:41 PM CDT Francois Osborn MD LAB - BLOOD BANK ORD ERABLES Performing Organization Address [facility] Co de Phone Number [facility] BLOOD BANK LAB [address] [place] [address], [place] [phone] * HCG BETA BLOOD QUANTITATIVE (12/10/2023 7:33 PM CDT) [facility] Beta-hCG Total Quantitative 5 mIU/mL 12/10/2023 8:13 PM CDT [facility] Comment: HCG Numeric Result Interpretation: ? [...] - CHEMISTRY ORDE RABDAVID Performing Organization Address City/[facility]/ZIP Co de Phone Number [address] [address], [facility] [phone] * ALCOHOL ETHYL BLOOD (12/10/2023 7:33 PM CDT) Ethanol (mg/dL) <10 <10 mg/dL 8:09 PM CDT [facility] Ethanol Calculated (g/dL) <0.010 <=0.010 g/dL 12/10/2023 8:09 PM CDT [facility] Blood BLOOD SPECIMEN / Unknown Venipuncture / Unknown 12/10/2023 7:33 PM CDT 12/10/2023 7:38 PM CDT Narrative [facility] - 12/10/2023 8:09 PM CDT Ethanol Interp <10: None Detected. Depression of HEAD OF STORE OPERATIONS: >100 mg/dl Potentially Critical: >250 mg/dl Potentially [...] Organization Address City/State/ZIP Co de Phone Number [facility] [address] [place] [address], [facility] [phone]
--- OUTSIDE RECORDS SUMMARY | 2024-08-23 19:05 | XMS_ITS | Encounter Summary ---
Author Organization [facility] Address [address] [place] [address] Care Team Providers Care Tap Out Operator Name Role Phone Unavailable Primary Care Provider Unavailabl e Reason for Visit * Reason Onset Date Comments Question 12/24/2023 Encounter Details Date Type Department Care Team (Late st Contact Info) Description 12/24/2023 Telephone [facility] [address] [facility], [facility] [place] [phone] Cyndi Aguilar PA-C [facility] [place] [address] Question Social History Tobacco Use [...] medical care, and heating? Somewhat hard 12/17/2023 [facility] of Occupat ional Health - Occupational Stress [...] place to sleep or slept in a residential (including now)? No 12/17/2023 Sex and Gender [...]
--- OUTSIDE RECORDS SUMMARY | 2024-08-23 19:05 | XMS_ITS | Encounter Summary ---
Author Organization [facility] Address [address] [place] [address]. 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
--- OUTSIDE RECORDS SUMMARY | 2024-08-23 19:05 | XMS_ITS | Clinical Summary ---
Author Organization [facility] Address [address] [place] [address]. 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
--- OUTSIDE RECORDS SUMMARY | 2024-08-23 19:05 | XMS_ITS | Referral Summary ---
Author Organization [facility] Address [address] [place] [address] Care Team Providers Care Narrow Gauge Brakeman Name Role Phone Unavailable Primary Care Provider Unavailabl e Source Comments [facility],non-owned Affiliates and Associated Physician Practices is amultiple site organization consisting of ambulatory clinics and hospital sitesin [place], [place], [place]. This disclosure is being madepursuant to the Care Everywhere program and may not contain all information available regarding this patient. Last updated 18.[facility] Allergies Active Allergy Reactions Criticality Noted Date [...] medical care, and heating? Somewhat hard 12/17/2023 [facility] [place] of Occupat ional Health - Occupational Stress [...] place to sleep or slept in a penitentiary (including now)? No 12/17/2023 Sex and Gender [...] - 115 mg/dL 12/18/2023 12:11 AM CDT [facility] Specimen Type Cap Fingerstick 2023 12:11 AM CDT [facility] Blood BLOOD SPECIMEN / Unknown 12/18/2023 12:10 AM CDT 12/18/2023 12:11 AM CDT Ho Parada MD LAB - POINT OF CARE ORDERABLES [facility] [address] [place] [address], [facility] [phone] from Last 3 Months or Most Recently [...]
--- OUTSIDE RECORDS SUMMARY | 2024-08-23 19:05 | XMS_ITS | Encounter Summary ---
Author Organization [facility] Health Address [address] [facility] [place] [address] Care Team Providers Care Wool Hanker Name Role Phone Unavailable Primary Care Provider Unavailabl e Encounter Details Date Type Department Care Team (Late st Contact Info) Description 12/10/2023 Ophth Exam [facility] - [facility] [address] [place] [address] Ho Anthony MD [address] [facility] [place] [address] Social History Tobacco Use Types [...] care, and heating? Somewhat hard 12/11/2023 [facility] [place] of Occupat ional Health - Occupational Stress [...] place to sleep or slept in a longterm (including now)? No 12/11/2023 Sex and Gender [...]
--- OUTSIDE RECORDS SUMMARY | 2024-08-23 19:05 | XMS_ITS | Encounter Summary ---
Author Organization [facility] Address [address] [place] [address]. 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 NEUTROPHILS TOTAL 5.16 1.60 - 8.30 x10'3/uL 12/09/2015 12:48 PM CDT [facility] ORDERS INTERFACE ABS. LYMPHOCYTES 2.14 0.80 - 4.70 x10'3/uL 12/09/2015 12:48 PM CDT [facility] ORDERS INTERFACE ABS. MONOCYTES 0.61 0.00 - 1.50 x10'3/uL 12/09/2015 12:48 PM CDT [facility] ORDERS INTERFACE ABS. EOSINOPHILS 0.13 0.00 - 0.40 x10'3/uL 12/09/2015 12:48 PM CDT [facility] ORDERS INTERFACE ABS. BASOPHILS 0.05 0.00 - 0.20 x10'3/uL 12/09/2015 12:48 PM CDT [facility] ORDERS INTERFACE ABS. IMMATURE GRANULOCYTES 0.03 0.00 - 0.03 x10'3/uL 12/09/2015 12:48 PM CDT [facility] ORDERS INTERFACE ABS. NUCLEATED RBC'S 0.00 0.0 x10'3/uL 12/09/2015 12:48 PM CDT [facility] ORDERS INTERFACE PLASMA SPECIMEN / Unknown 12/09/2015 12:10 PM CDT 12/09/2015 12:32 PM CDT us Generic Conversion Md [facility] Final R esult [facility] [place] [address], documented in this encounter Visit Diagnoses Not on filedocumented in this encounter Additional Health Concerns Infection Onset Date Last Indicated Resolved Time MRSA 07/06/2017 07/06/2017 documented as of this encounter
--- OUTSIDE RECORDS SUMMARY | 2024-08-23 19:05 | XMS_ITS ---
Author Organization Unknown Address [address] [place] [id number] Phone Care Team Providers Care Claims Account Manager Name Role Phone TAMRA HUTCHINS Attending Unavailable [...] Frankie Mccoy M.D. KT: [id number] Report ID: [id number] Reading Location: [id number] Social History Type Status Start Date End [...]
--- OUTSIDE RECORDS SUMMARY | 2024-08-23 19:05 | XMS_ITS | Clinical Summary ---
Author Organization [facility] Address [address] [place] [address] Care Team Providers Care Transportation Maintenance Operator Name Role Phone Unavailable Primary Care Provider Unavailabl e Source Comments [facility],non-owned Affiliates and Associated Physician Practices is amultiple site organization consisting of ambulatory clinics and hospital sitesin [place], [place], [place] and [place]. This disclosure is being madepursuant to the Care Everywhere program and may not contain all information available regarding this patient. Last updated 18.[facility] [employer] Allergies Active Allergy Reactions Criticality Noted Date [...] medical care, and heating? Somewhat hard 12/17/2023 [facility] [place] of Occupat ional Health - Occupational Stress [...] - 115 mg/dL 12/18/2023 12:11 AM CDT [facility]OS[facility] Specimen Type Cap Fingerstick 2023 12:11 AM CDT [facility] Blood BLOOD SPECIMEN / Unknown 12/18/2023 12:10 AM CDT 12/18/2023 12:11 AM CDT Ho Parada MD LAB - POINT OF CARE ORDERABLES [facility] [address] [place] [address], [facility] [phone] from Last 3 Months or Most Recently [...]
--- OUTSIDE RECORDS SUMMARY | 2024-08-23 19:05 | XMS_ITS | Encounter Summary ---
Author Organization [facility] Health Address [address] [facility] [place] [address] Care Team Providers Care Minister Helper Name Role Phone Unavailable Primary Care Provider [...] medical care, and heating? Somewhat hard 12/11/2023 [facility] of Occupat ional Health - Occupational Stress [...]
--- OUTSIDE RECORDS SUMMARY | 2024-08-23 19:06 | XMS_ITS | Encounter Summary ---
Author Organization [facility] Address [address] [place] [address]. 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
--- OUTSIDE RECORDS SUMMARY | 2024-08-23 19:06 | XMS_ITS | Encounter Summary ---
Author Organization [facility] Address [address] [place] [address]. 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
--- OUTSIDE RECORDS SUMMARY | 2024-08-23 19:06 | XMS_ITS | Encounter Summary ---
Author Organization [facility] Address [address] [place] [address]. 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
--- OUTSIDE RECORDS SUMMARY | 2024-08-23 19:06 | XMS_ITS | Encounter Summary ---
Author Organization [facility] Address [address] [place] [address]. 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
--- OUTSIDE RECORDS SUMMARY | 2024-08-23 19:06 | XMS_ITS | Encounter Summary ---
Author Organization [facility] Address [address] [place] [address]. 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
--- OUTSIDE RECORDS SUMMARY | 2024-08-23 19:06 | XMS_ITS | Encounter Summary ---
Author Organization [facility] Address [address] [place] [address]. 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
--- OUTSIDE RECORDS SUMMARY | 2024-08-23 19:06 | XMS_ITS | Encounter Summary ---
Author Organization [facility] Address [address] [place] [address]. 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
--- OUTSIDE RECORDS SUMMARY | 2024-08-23 19:06 | XMS_ITS | Encounter Summary ---
Author Organization [facility] Address [address] [place] [address]. 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
--- OUTSIDE RECORDS SUMMARY | 2024-08-23 19:06 | XMS_ITS | Encounter Summary ---
Author Organization [facility] Address [address] [place] [address]. 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
--- OUTSIDE RECORDS SUMMARY | 2024-08-23 19:06 | XMS_ITS | Encounter Summary ---
Author Organization [facility] Address [address] [place] [address]. 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
--- OUTSIDE RECORDS SUMMARY | 2024-08-23 19:06 | XMS_ITS | Encounter Summary ---
Author Organization [facility] Address [address] [place] [address]. 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
--- OUTSIDE RECORDS SUMMARY | 2024-08-23 19:06 | XMS_ITS | Encounter Summary ---
Author Organization [facility] Address [address] [place] [address]. 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
--- OUTSIDE RECORDS SUMMARY | 2024-08-23 19:06 | XMS_ITS | Encounter Summary ---
Author Organization [facility] Address [address] [place] [address]. 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
--- OUTSIDE RECORDS SUMMARY | 2024-08-23 19:06 | XMS_ITS | Encounter Summary ---
Author Organization [facility] Address [address] [place] [address]. 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
--- OUTSIDE RECORDS SUMMARY | 2024-08-23 19:06 | XMS_ITS | Encounter Summary ---
Author Organization [facility] Address [address] [place] [address]. [place] [address] [place] [address] Care Team Providers Care Creative Designer Name Role Phone Unavailable Primary Care Provider Unavailabl e Encounter Details Date Type Department Care Team (Late st Contact Info) Description 01/09/[address] 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
--- OUTSIDE RECORDS SUMMARY | 2024-08-23 19:06 | XMS_ITS | Encounter Summary ---
Author Organization [facility] Address [address] [place] [address]. 

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
--- OUTSIDE RECORDS SUMMARY | 2024-08-23 19:07 | XMS_ITS | Encounter Summary ---
Author Organization [facility] Healthcare Address [address] [place] [address] Care Team Providers Care Biodiesel Plant Superintendent Name Role Phone No, Physician Primary Care Provider [phone] Encounter Details Date Type Department Care Team (Latest Contact Info) Description 04/10/2024 1:47 AM CDT - 04/10/2024 11:59 PM CDT Hospital Encounter [facility] Emergency, Room R Discharge Disposition: Discharge to home or self care Social History Tobacco Use Types Packs/Day Years Used Date Smoking Tobacco: Every Day Cigarettes [facility] Utilities Answer Date Recorded In the past 12 months has [employer], gas, oil, or water company threatened [...] often do you attend chur ch or jewish services? Patient unable to answer 04/10/2024 Do you belong to any clubs o r organizations such as mandaeism groups, unions, fraternal or athletic groups, or [...] any time in the past 12 m 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 Source: [facility] - [facility], [facility]. 07/06/2017 Ring Surveillance 03/29/2024 03/29/2024 04/18/2024 12:36 PM CDT documented as of this encounter Care Teams Biodiesel Plant Superintendent Relationship Specialty Start Date End Date No, Physician PCP - General 04/10/24 documented as of this encounter
--- OUTSIDE RECORDS SUMMARY | 2024-08-23 19:07 | XMS_ITS | Encounter Summary ---
Author Organization [facility] Address [address] [facility] [address] [place] [address] Phone Care Team Providers Care Knitting Teacher Name Role Phone No, Physician Primary Care Provider [phone] Reason for Referral * Diagnostic Imaging (Routine) - Closed Specialty Diagnoses / Procedures Referred By Contac t Referred To Contact Diagnoses S/P cervical spinal fusion Procedures XR Spine Cervical 2 or 3 Views Marcio Tapia MD [address] [place] [address] Phone: tel: fax: [address] [address] Referral ID Status Reason Start Date Expiration Date Visits Re quested Visits Authorized [id number] Closed 04/21/2024 05/21/2025 1 1 Encounter Details Date Type Department Care Team (Late st Contact Info) Description 04/21/2024 Orders Only [facility] Medical Office Building [address] [place] [address] Marcio Tapia MD [address] [place] [address] S/P cervical spinal fusion (Primary [...] often do you attend chur ch or mosque services? Patient unable to answer 04/10/2024 Do you belong to any clubs o r organizations such as synagogue groups, unions, fraternal or athletic groups, or [...] any time in the past 12 m [facility], were you homeless or living [...] Legal Sex Female 10:11 AM DIRECTOR OF ENTERPRISE STRATEGY Gender Identity Not on file Sexual Orientation [...] MRSA Comment:IP reviewed 03/10/2024 Postive last at [facility] on 01/23/24 Added from external infection. Source: [facility] - [facility], [facility]. 07/06/2017 documented as of this encounter Care Teams Knitting Teacher Relationship Specialty Start Date End Date No, Physician PCP - General 04/10/24 documented as of this encounter
--- OUTSIDE RECORDS SUMMARY | 2024-08-23 19:07 | XMS_ITS | Encounter Summary ---
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 199 mg/dL [facility] ([place]) Comment: Interpretive Data Fasting [...] Fin al Result [facility] ([place]) 1 [facility] [place] [address] * (ABNORMAL) CBC with auto differential (04/10/2024 [...] BLOOD ORDERABLES Fin al Result [facility] ([place]) 1 [facility] [place] [address] * POCT glucose (04/10/2024 3:00 AM CDT) Glucose, POC 150 70 - 199 mg/dL Blood 04/10/2024 3:00 AM CDT 04/10/2024 3:00 AM CDT Deya Meredith MD LAB POCT ORDERABLES - DE VICE Final Result Performing Organization Address City/[facility]/ZIP Co de Phone Number [facility] ([place]) 1 [facility] [place] [address] documented in this encounter Visit Diagnoses Diagnosis [...] cervical vertebra with routine healing, subsequent encounter [S12.001D] Multiple rib fractures involving four or more [...] hours, First dose on Sarah 04/10/24 at 0229 4329 (Given - Provider: Marizol Quezada RN)0837 (Given [...] Becky Orellana RN) 2034 (Given - Provider: Becky Orellana, JULISSA) insulin lispro (HumaLOG, ADMELOG) 100 [...] Chacon RN)2026 (Medication Applied - Provider: Becky rOellana, JULISSA) 0954 (Medication Removed - Provider: Nayana [...] MRSA Comment:IP reviewed 03/10/2024 Postive last at [facility] on 01/23/24 Added from external infection. Source: [facility] - [facility], [facility]. 07/06/2017 Ring Surveillance 03/29/2024 03/29/2024 04/18/2024 12:36 PM CDT documented as of this encounter Care Teams Memorandum Statement Clerk Relationship Specialty Start Date End Date No, Physician PCP - General 04/10/24 documented as of this encounter
--- OUTSIDE RECORDS SUMMARY | 2024-08-23 19:07 | XMS_ITS | Encounter Summary ---
Author Organization [facility] Healthcare Address [address] [place] [address] Care Team Providers Care Venue Attendant Name Role Phone No, Physician Primary Care Provider [phone] Reason for Referral * Diagnostic Imaging (Routine) - Closed Specialty Diagnoses / Procedures Referred By Contac t Referred To Contact Diagnoses S/P cervical spinal fusion Procedures XR Spine Cervical 2 or 3 Views Marcio Tapia MD [address] [place] [address] Phone: tel: fax: [place] [address] [place] [address] Referral ID Status Reason Start Date Expiration Date Visits Re quested Visits Authorized [id number] Closed 04/21/2024 05/21/2025 1 1 Reason for Visit * Diagnostic Imaging (Routine) - Closed Specialty Diagnoses / Procedures Referred By Contac t Referred To Contact Diagnoses S/P cervical spinal fusion Procedures XR Spine Cervical 2 or 3 Views Marcio Tapia MD [address] [place] [address] Phone: tel: fax: [place] [address] [place] [address] Referral ID Status Reason Start Date Expiration Date Visits Re quested Visits Authorized [id number] Closed 04/21/2024 05/21/2025 1 1 Encounter Details Date Type Department Care Team (Latest Contact Info) Description 05/07/2024 12:30 PM CDT - 05/07/2024 11:59 PM CDT Hospital Encounter [facility] Radiology [address] [facility] [address] [place] [address] S/P cervical spinal fusion Discharge Disposition: Discharge to home or self care Social History Tobacco Use Types Packs/Day Years Used Date Smoking Tobacco: Every Day Cigarettes [facility] Utilities Answer Date Recorded In the past 12 months has th e [employer], gas, oil, or water company threatened to [...] How often do you attend chur or lutheran services? 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 Marcio Taipa MD IMG XR PROCEDURES Final Result documented in this encounter Visit Diagnoses Diagnosis S/P cervical spinal fusion Arthrodesis status documented in this encounter Additional Health Concerns Infection Onset Date Last Indicated Resolved Time MRSA Comment:IP reviewed 03/10/[address] [facility] on 01/23/24 Added from external infection. Source: [facility] - [facility], [facility]. 07/06/2017 documented as of this encounter Care Teams Venue Attendant Relationship Specialty Start Date End Date No, Physician PCP - General 04/10/24 documented as of this encounter
--- OUTSIDE RECORDS SUMMARY | 2024-08-23 19:07 | XMS_ITS | Encounter Summary ---
Author Organization [facility] Address [address] [place] [address] Phone Care Team Providers Care Deputy Chief Sheriff Name Role Phone No, Physician Primary Care Provider [phone] Reason for Referral * Consultation (Routine) - Pending Review Specialty Diagnoses / Procedures Referred By Rebekah geiger Referred To Contact Occupational Therapy Diagnoses Right hand weakness Carol Monae NP [address] [place] [address] Phone: tel: fax: External Order Referral ID Status Reason Start Date Expiration Date Visits Requested Visits Authorized [id number] Pending Review Specialty Services Required 07/06/2025 24 [...] Monae NP [address] [place] [address] Phone: tel: fax: External Order Referral ID Status Reason Start Date Expiration Date Visits Requested Visits Authorized [id number] Pending Review Specialty Services Required 07/06/2025 24 [...] Description 06/06/2024 1:15 PM CDT Office Visit [facility] Neurosurgery [address] [facility] [address] [place] [phone] Carol Monae NP [address] [place] [address] S/P cervical spinal fusion (Primary Dx); Right hand weakness Social History Tobacco Use Types Packs/Day Years Used Date Smoking Tobacco: Former Cigarettes Tobacco Cessation:Counseling Given: No [employer] Utilities Answer Date Recorded In the past 12 months has [employer], gas, oil, or water [employer] threatened to shut off services in your [...] How often do you attend chur or mandaen services? Patient unable to answer 04/10/2024 Do you belong to any clubs o r organizations such as lutheran groups, unions, fraternal or athletic groups, or [...] any time in the past 12 m [facility], were you homeless or living in a mcfp (including now)? Patient unable to answer 03/12/2024 Personal Safety Answer Date Recorded Have you ever been in or are you currently in a harmful physical or emotional relationship or is someone making you feel afraid or unsafe? 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 Wrist extension: 2/5 strength.Wrist flexion: 2/5 strength.Rn Procedures: 1/5 strength.Hand intrinsics: 0/5 strength Left strength [...] [address] [facility], [place] [address] HOLA Moeller NP documented in this encounter [...] MRSA Comment:IP reviewed 03/10/2024 Postive last at [facility] on 01/23/24 Added from external infection. Source: [facility] - [facility], [facility]. 07/06/2017 documented as of this encounter Care Teams Deputy Chief Sheriff Relationship Specialty Start Date End Date No, Physician PCP - General 04/10/24 documented as of this encounter
--- OUTSIDE RECORDS SUMMARY | 2024-08-23 19:07 | XMS_ITS | Encounter Summary ---
Author Organization [facility] Healthcare Address [address] [place] [address] Care Team Providers Care Eight Arm Operator Name Role Phone No, Physician Primary Care Provider [phone] Encounter Details Date Type Department Care Team (Latest Contact Info) Description 04/18/2024 3:57 PM CDT - 04/18/2024 11:59 PM CDT Hospital Encounter [facility] Emergency, Room R Discharge Disposition: Discharge to home or self care Social History Tobacco Use Types Packs/Day Years Used Date Smoking Tobacco: Every Day Cigarettes [facility] Utilities Answer Date Recorded In the past 12 months has [employer], gas, oil, or water company threatened [...] often do you attend chur ch or yarsanism services? Patient unable to answer 04/10/2024 Do [...] any time in the past 12 m [facility], were you homeless or living in a senior care (including now)? Patient unable to answer 03/12/2024 Personal Safety Answer Date Recorded Have you ever been in or are you currently in a harmful physical or emotional relationship or is someone making you feel afraid or unsafe? 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 Source: [facility] - [facility], [facility]. 07/06/2017 documented as of this encounter Care Teams Eight Arm Operator Relationship Specialty Start Date End Date No, Physician PCP - General 04/10/24 documented as of this encounter
--- OUTSIDE RECORDS SUMMARY | 2024-08-23 19:07 | XMS_ITS | Encounter Summary ---
Author Organization [facility] Address [address] [place] [address] Phone Care Team Providers Care Administration Internship Name Role Phone No, Physician Primary Care Provider [phone] Reason for Referral * Diagnostic Imaging (Routine) - Closed Specialty Diagnoses / Procedures Referred By Rebekah t Referred To Contact Diagnoses S/P cervical spinal fusion Procedures XR Spine Cervical 2 or 3 Views Carol Monae NP [address] [place] [address] Phone: tel: fax: [address] [address] Referral ID Status Reason Start Date Expiration Date Visits Re quested Visits Authorized [id number] Closed 05/22/2024 06/21/2025 1 1 Encounter Details Date Type Department Care Team (Late st Contact Info) Description 05/22/2024 Orders Only [facility] Neurosurgery [address] [facility] [address] [place] [address] Carol Monae NP [address] [place] [address] S/P cervical spinal fusion (Primary Dx) Social History Tobacco Use Types Packs/Day Years Used Date Smoking Tobacco: Every Day Cigarettes [facility] Utilities Answer Date Recorded In [...] often do you attend chur ch or church services? Patient unable to answer 04/10/2024 Do [...] any time in the past 12 m [facility], were you homeless or living in a usp (including now)? Patient unable to answer 03/12/2024 Personal Safety Answer Date Recorded Have you ever been in or are you currently in a harmful physical or emotional relationship or is someone making you feel afraid or unsafe? 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 us Carol Monae LEARNING ENGINEER IMG XR PROCEDURES Final Result documented in this encounter Visit Diagnoses Diagnosis S/P cervical spinal fusion- Primary Arthrodesis status S/P cervical spinal fusion Arthrodesis status documented in this encounter Additional Health Concerns Infection Onset Date Last Indicated Resolved Time MRSA Comment:IP reviewed 03/10/2024 Postive last at [facility] on 01/23/24 Added from external infection. Source: [facility] - [facility], [facility]. 07/06/2017 documented as of this encounter Care Teams Administration Internship Relationship Specialty Start Date End Date No, Physician PCP - General 04/10/24 documented as of this encounter
--- OUTSIDE RECORDS SUMMARY | 2024-08-23 19:07 | XMS_ITS | Encounter Summary ---
Author Organization [facility] Address [address] [facility] [address] [place] [address] Phone Care Team Providers Care Aerial Photograph Interpreter Name Role Phone No, Physician Primary Care Provider [phone] Reason for Referral * Consultation (Routine) - Pending Review Specialty Diagnoses / Procedures Referred By Rebekah geiger Referred To Contact Physical Therapy Diagnoses S/P cervical spinal fusion Marcio Tapia MD [address] [place] [address] Phone: tel: fax: External Order Referral ID Status Reason Start Date Expiration Date Visits Requested Visits Authorized [id number] Pending Review Specialty Services Required 05/08/2024 06/07/2025 24 24 Question Answer PTRFR PT Evaluate and Treat Therapy options discussed with patient? Yes Location provided for therapy services is: Patient requested/Patient preferred Please select the performing region: External Order [171] # of visits: 24 Comments Right hand strengthen Encounter Details Date Type Department Care Team (Late st Contact Info) Description 05/07/2024 Telephone [place] [address] [facility] [address] [place] [address] Marcio Tapia MD [address] [place] [address] Social History Tobacco Use Types Packs/Day Years Used Date Smoking Tobacco: Every Day Cigarettes [facility] Utilities Answer Date Recorded In the past [...] often do you attend chur ch or religion services? 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 Source: [facility] - [facility], [facility]. 07/06/2017 documented as of this encounter Care Teams Aerial Photograph Interpreter Relationship Specialty Start Date End Date No, Physician PCP - General 04/10/24 documented as of this encounter
--- OUTSIDE RECORDS SUMMARY | 2024-08-23 19:07 | XMS_ITS | Encounter Summary ---
Author Organization [facility] Healthcare Address [address] [place] [address] Care Team Providers Care Turf Sales Person Name Role Phone No, Physician Primary Care Provider [phone] Reason for Referral * Diagnostic Imaging (Routine) - Closed Specialty Diagnoses / Procedures Referred By Contac t Referred To Contact Diagnoses S/P cervical spinal fusion Procedures XR Spine Cervical 2 or 3 Views Carol Monae NP [address] [place] [address] Phone: tel: fax: [place] [address] [place] [address] Referral ID Status Reason Start Date Expiration Date Visits Re quested Visits Authorized [id number] Closed 05/22/2024 06/21/2025 1 1 Reason for Visit * Diagnostic Imaging (Routine) - Closed Specialty Diagnoses / Procedures Referred By Contac t Referred To Contact Diagnoses S/P cervical spinal fusion Procedures XR Spine Cervical 2 or 3 Views Carol Monae NP [address] [place] [address] Phone: tel: fax: [place] [address] [place] [address] Referral ID Status Reason Start Date Expiration Date Visits Re quested Visits Authorized [id number] Closed 05/22/2024 06/21/2025 1 1 Encounter Details Date Type Department Care Team (Latest Contact Info) Description 06/06/2024 12:28 PM CDT - 06/06/2024 11:59 PM CDT Hospital Encounter [facility] Radiology [address] [facility] [address] [place] [address] S/P cervical spinal fusion Discharge Disposition: Discharge to home or self care Social History Tobacco Use Types Packs/Day Years Used Date Smoking Tobacco: Former Cigarettes [facility] Utilities Answer Date Recorded In the past 12 months has th e electric, gas, oil, or water [employer] threatened to shut off services in your [...] week 04/10/2024 How often do you attend [facility] or jainism services? Patient unable to answer 04/10/2024 Do you belong to any clubs o r organizations such as mormonism groups, unions, fraternal or athletic groups, or [...] any time in the past 12 m [facility], were you homeless or living in a fdc (including now)? Patient unable to answer 03/12/2024 Personal Safety Answer Date Recorded Have you ever been in or are you currently in a harmful physical or emotional relationship or is someone making you feel afraid or unsafe? 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 04/08/2024 blood-glucose meter (OneTouch Ultra2 Meter) [facility] Inject 1 Units under the skin 2 [...] MRSA Comment:IP reviewed 03/10/2024 Postive last at [facility] on 01/23/24 Added from external infection. Source: [facility] - [facility], [facility]. 07/06/2017 documented as of this encounter Care Teams Turf Sales Person Relationship Specialty Start Date End Date No, Physician PCP - General 04/10/24 documented as of this encounter
--- OUTSIDE RECORDS SUMMARY | 2024-08-23 19:07 | XMS_ITS | Encounter Summary ---
Author Organization [facility] Address [address] [facility] [address] [place] [address] Phone Care Team Providers Care Jig Borer Name Role Phone No, Physician Primary Care Provider [phone] Reason for Visit * Consultation (Routine) - Closed Specialty Diagnoses / Procedures Referred By Rebekah t Referred To Contact Neurosurgery Diagnoses S/P cervical spinal fusion Marcio Tapia MD [address] [place] [address] Phone: tel: fax: [facility] (All Locations) Referral ID Status Reason Start Date Expiration Date V isits Requested Visits Authorized [id number] Closed Specialty Services Required 03/25/2024 04/24/2025 1 1 Encounter Details Date Type Department Care Team (Late st Contact Info) Description 05/07/2024 1:00 PM CDT Office Visit [facility] Neurosurgery [facility] Building [address] [place] [address] Marcio Tapia MD [address] [place] [address] S/P cervical spinal fusion Social History Tobacco Use Types Packs/Day Years Used Date Smoking Tobacco: Every Day Cigarettes [facility] Utilities Answer Date Recorded In the past 12 months has [employer] electric, gas, oil, or water company threatened [...] often do you attend chur ch or episcopal services? Patient unable to answer 04/10/2024 Do you belong to any clubs o r organizations such as sikh groups, unions, fraternal or athletic groups, or [...] on file Legal Sex Female 10:11 AM [employer] Gender Identity Not on file Sexual [...] [facility], [facility]. 07/06/2017 documented as of this encounter Care Teams Jig Borer Relationship Specialty Start Date End Date No, Physician PCP - General 04/10/24 documented as of this encounter
--- OUTSIDE RECORDS SUMMARY | 2024-08-23 19:09 | XMS_ITS | Encounter Summary ---
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 Ordering Provider: Linda Haile MD Status: Dispensed Ordered On: 03/15/24436 Start: 03/15/24436 Ordered Dose (Remaining/Total): 1 lozenge (--/--) Route: mouth/throat Frequency: Every 3 hours PRN Ordered Rate/Order Duration: -- / -- Timestamps Action Dose Route Other Information 03/25/24 1224 Given 1 lozenge mouth/throat Performed by: Liberty Taylor RN Scanned Package: [id number] dextrose gel in packet 15 g [[id number]] Ordering Provider: Linda Haile MD Status: Verified [...] medication) dextrose (D10W) 10% bolus 250 mL [[id number]] Ordering Provider: Linda Haile MD Status: Verified [...] hour post treatment. If BG is less jatd431 mg/dL, repeat Q15 minute BG checks and treatment. Call MD for each episode of hypoglycemia. (No admins scheduled or recorded for this medication) glucagon injection 1 mg [[id number]] Ordering Provider: Linda Haile MD Status: Verified [...] this medication) oxyCODONE (ROXICODONE) tablet 7.5 mg [[id number]] Ordering Provider: Vince Allen MD Status: Dispensed Ordered On: 03/17/24 1037 Start: 03/17/24 1036 Ordered Dose (Remaining/Total): 7.5 mg (--/--) Route: oral Frequency: Every 4 hours PRN Ordered Rate/Order Duration: -- / -- Timestamps Action Dose Route Other Information 04/02/24 1321 Given 7.5 mg oral Performed by: Alyx Ma RN Scanned Package: 89600-654-79 hydrOXYzine (ATARAX) tablet 50 mg [[id number]] Ordering Provider: Demetri Serrano MD Status: Dispensed Ordered On: 03/17/24 1634 Start: 03/17/24 1634 Ordered Dose (Remaining/Total): 50 mg (--/--) Route: oral Frequency: Every 4 hours PRN Ordered Rate/Order Duration: -- / -- Timestamps Action Dose Route Other Information 03/30/24 2025 Given 50 mg oral Performed by: Leighann Solitario Scanned Package: 31675-571-12, 73729-856-02 enoxaparin (LOVENOX) syringe 30 mg [[id number]] Ordering Provider: Xochitl Esquivel NP Status: Dispensed Ordered On: 03/18/24 1152 Start: 03/18/24 2100 Ordered Dose (Remaining/Total): 30 mg (--/--) Route: subcutaneous Frequency: Every 12 hours scheduled Ordered Rate/Order Duration: -- / -- Timestamps Action Dose Route / Site Other Information 04/02/24 0915 Given 30 mg subcutaneous Right Lower Abdomen Performed by: Alyx Ma RN Scanned Package: 40759-485-90 lidocaine (ASPERCREME) 4 % patch 2 patch [[id number]] Ordering Provider: Xochitl Esquivel NP Status: Dispensed [...] Performed by: Alyx Ma RN Scanned Package: 6163-5008-22, 4059-3328-27 traZODone (DESYREL) tablet 50 mg [[id number]] Ordering Provider: Xochitl Esquivel NP Status: Dispensed Ordered On: 03/18/24 1529 Start: 03/18/24 2100 Ordered Dose (Remaining/Total): 50 mg (--/--) Route: oral Frequency: Nightly Ordered Rate/Order Duration: -- / -- Timestamps Action Dose Route Other Information 04/01/24 214 Given 50 mg oral Performed by: Jose Arechiga RN Scanned Package: 56889-158-18 polyethylene glycol (MIRALAX) packet 17 g [[id number]] Ordering Provider: Xochitl Esquivel NP Status: Dispensed Ordered On: 03/19/24 0903 Start: 03/19/24 2100 Ordered Dose (Remaining/Total): 17 g (--/--) Route: oral Frequency: 2 times daily Ordered Rate/Order Duration: -- / -- Timestamps Action Dose Route Other Information 04/02/24 0915 Given 17 g oral Performed by: Alyx Ma RN Scanned Package: 00306-768-06 bisacodyL (DULCOLAX) suppository 10 mg [[id number]] Ordering Provider: Xochitl Esquivel NP Status: Dispensed (Past End Date/Time) Ordered On: 03/19/24 0915 Starts/Ends: 03/19/24 1000 - 03/20/24 1000 Ordered Dose (Remaining/Total): 10 mg (1/1) Route: rectal Frequency: Once Ordered Rate/Order Duration: -- / -- (No admins scheduled or recorded for this medication) HYDROmorphone (DILAUDID) injection 0.2 mg [[id number]] Ordering Provider: Demetri Serrano MD Status: Completed (Past End Date/Time) Ordered On: 03/21/24 0528 Starts/Ends: 03/21/24 06 - 03/21/24 0545 Ordered Dose (Remaining/Total): 0.2 mg (0/1) Route: intravenous Frequency: Once Ordered Rate/Order Duration: -- / 2 Minutes Timestamps Action Dose / Duration Route Other Information 03/21/24 0543 Given 0.2 mg 2 Minutes intravenous Performed by: Elizabeth Bell RN Scanned Package: 21776-865-56 insulin glargine (LANTUS, SEMGLEE) 100 unit/mL injection 2 Units [[id number]] Ordering Provider: Demetri Serrano MD Status: Completed [...] Performed by: Dilcia Torres, JULISSA Scanned Package: 50916-951-88 insulin glargine (LANTUS, SEMGLEE) 100 unit/mL injection 30 Units [[id number]] Ordering Provider: Ximena Diaz NP Status: Dispensed [...] Performed by: Alyx Ma RN Scanned Package: 79188-684-85 insulin lispro (HumaLOG, ADMELOG) 100 unit/mL injection 2 Units [[id number]] Ordering Provider: Ximena Diaz NP Status: Verified Ordered On: 03/25/24 0737 Start: 03/25/24 0734 Ordered Dose (Remaining/Total): 2 Units (--/--) Route: subcutaneous Frequency: Every 6 hours PRN Ordered Rate/Order Duration: -- / -- Admin Instructions: Please give with snacks. (No admins scheduled or recorded for this medication) insulin lispro (HumaLOG, ADMELOG) 100 unit/mL injection 20 Units [[id number]] Ordering Provider: Ximena Diaz NP Status: Dispensed [...] Performed by: Alyx Ma RN Scanned Package: 2027-6764-13 oxyCODONE (ROXICODONE) tablet 5 mg [[id number]] Ordering Provider: Demetri Serrano MD Status: Completed (Past End Date/Time) Ordered On: 03/28/24 1127 Starts/Ends: 03/28/24 1200 - 03/28/24 1214 Ordered Dose (Remaining/Total): 5 mg (0/1) Route: oral Frequency: Once Ordered Rate/Order Duration: -- / -- Timestamps Action Dose Route Other Information 03/28/24 1214 Given 5 mg oral Performed by: Lorena Acevedo RN Scanned Package: 74298-006-27 methocarbamoL (ROBAXIN) tablet 1,000 mg [[id number]] Ordering Provider: Karuna Mitchell NP Status: Dispensed Ordered On: 03/28/24 1352 Start: 03/28/24 1700 Ordered Dose (Remaining/Total): 1,000 mg (--/--) Route: oral Frequency: 4 times daily Ordered Rate/Order Duration: -- / -- Timestamps Action Dose Route Other Information 04/02/24 1606 Given 1,000 mg oral Performed by: Alyx Ma RN Scanned Package: 78264-818-85, 25209-306-21 insulin lispro (HumaLOG, ADMELOG) 100 unit/mL injection 0-10 Units [[id number]] Ordering Provider: Messi Hummel MD Status: Dispensed [...] Performed by: Alyx Ma RN Scanned Package: 2027-9268-93 miconazole 2 % cream [[id number]] Ordering Provider: Riki Isidro MD Status: Dispensed (Past End Date/Time) Ordered On: 08/18/24 2154 Starts/Ends: 03/30/24 2230 - 03/31/24 0859 Ordered Dose (Remaining/Total): -- (08/13) Route: topical Frequency: 2 times daily Ordered Rate/Order Duration: -- / -- Question Answer Comment Apply to affected area:: diaper area -- (No admins scheduled or recorded for this medication) pregabalin (LYRICA) capsule 150 mg [[id number]] Ordering Provider: Johan Ulloa MD Status: Dispensed Ordered On: 03/31/24 1102 Start: 03/31/24 1600 Ordered Dose (Remaining/Total): 150 mg (--/--) Route: oral Frequency: 3 times daily Ordered Rate/Order Duration: -- / -- Timestamps Action Dose Route Other Information 04/02/24 1606 Given 150 mg oral Performed by: Alyx Ma RN Scanned Package: [id number] * Plan of Care - Desi Wang RN - 04/02/2024 4:20 PM CDT CM placed call to [place] at [phone]. Spoke with Akanksha. Updates sent via e[employer], refaxed to [phone]. Will review today & follow up with CM tomorrow. 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 Goal for Treatment: Mobility, Pain [...] pain, esnure rest, monitor las/ surgical wounds Diagnostic [facility] Specialist Patient Centered Goal for Treatment: Mobility, Pain management * Plan of Care - Jose Arechiga RN - 04/01/2024 2:35 AM CDT Goals: Clinical Goals for the Shift: vss, prevent falls/ injury, control pain, esnure rest, monitor las/ surgical wounds [facility] Patient Centered Goal for Treatment: Mobility, Pain [...] pain, esnure rest, monitor las/ surgical wounds [facility] Patient Centered Goal for Treatment: Mobility, Pain [...] to Air -- -- -- Site Assessment [facility];Red -- [facility];[place] Natalie-wound Assessment HOLLY -- -- HOLLY [...] Status Dry;Intact -- -- -- Site Assessment [facility] -- [facility];[place] Natalie-wound Assessment HOLLY -- -- HOLLY [...] the discharge summary - OT Recommendation -- [facility] -MD Patient at high risk for [...] & reported being in significant pain 04/22,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 -AK -- Patient declined [...] shoes, but they've been unable. Therapist contacted [facility] to order post-op shoe for right foot [...] discharge summary -LM Recommendation/Plan PT Recommendation/Plan -- [facility] -SETH (r) MS (c) -- [facility] - Patient at high risk for [...] By Initials Name Effective Dates [place] NorbertMignon, AEROSOL LINE OPERATOR 07/14/19 - SETH Wilber SkinnerFelix 02/05/24 - [...] Recent Administrations acetaminophen (TYLENOL) tablet 1,000 mg [[id number]] Ordering Provider: Rosalio Calixto MD Status: Completed (Past End Date/Time) Ordered On: 03/08/241836 Starts/Ends: 03/08/241837 - 03/08/241855 Ordered Dose (Remaining/Total): 1,000 mg (0/1) Route: oral Frequency: Once Ordered Rate/Order Duration: -- / -- Timestamps Action Dose Route Other Information 03/08/241855 Given 1,000 mg oral Performed by: Brionna Pitt RN Scanned Package: 3763-7600-77, 9533-2867-36 droPERidol (INAPSINE) injection 1.25 mg [[id number]] Ordering Provider: Rosalio Calixto MD Status: Completed [...] Performed by: Brionna Pitt RN Scanned Package: 3231-3161-86 fentaNYL (SUBLIMAZE) preservative free injection 50 mcg [[id number]] Ordering Provider: Rosalio Calixto MD Status: Completed [...] Performed by: Brionna Pitt RN Scanned Package: 5595-3492-12 ioversoL (OPTIRAY 350) syringe 100 mL [[id number]] Ordering Provider: Rosalio Calixto MD Status: Completed [...] RT ioversoL (OPTIRAY 350) syringe 125 mL [[id number]] Ordering Provider: Rosalio Calixto MD Status: Completed [...] Hill, RT gadoterate meglumine injection 14 mL [[id number]] Ordering Provider: Rosalio Calixto MD Status: Completed [...] (HumaLOG, ADMELOG) 100 unit/mL injection 4 Units [[id number]] Ordering Provider: Ho An MD Status: Completed (Past End Date/Time) Ordered On: 03/09/24332 Starts/Ends: 03/09/24333 - 03/09/24342 Ordered Dose (Remaining/Total): 4 Units (0/1) Route: subcutaneous Frequency: Once Ordered Rate/Order Duration: -- / -- Timestamps Action Dose Route / Site Other Information 03/09/24342 Given 4 Units subcutaneous Left Lower Abdomen Performed by: Brionna Pitt RN Scanned Package: 7325-9087-47 droPERidol (INAPSINE) injection 1.25 mg [[id number]] Ordering Provider: Ho An MD Status: Completed [...] Performed by: Odilia Vega RN Scanned Package: 0055-2506-99 sodium chloride 0.9% flush 0.5-20 mL [[id number]] Ordering Provider: Ericka Estes MD Status: Verified [...] RN sodium chloride 0.9% flush 0.5-20 mL [[id number]] Ordering Provider: Ericka Estes MD Status: Verified [...] Performed by: Isha Cox RN Scanned Package: [id number] Carrier Fluids for Secondary Infusion - 0.9% Sodium Chloride [[id number]] Ordering Provider: Ericka Estes MD Status: Dispensed [...] (1 %) preservative free injection 200 mg [[id number]] Ordering Provider: Varun Song MD Status: Completed (Past End Date/Time) Ordered On: 03/09/24 1240 Starts/Ends: 03/09/24 1315 - 03/09/24 1312 Ordered Dose (Remaining/Total): 20 mL (0/1) Route: infiltration Frequency: Once Ordered Rate/Order Duration: -- / -- Timestamps Action Dose Route Other Information 03/09/24 1312 Given 200 mg infiltration Performed by: Keyonna Hernandez RN HYDROmorphone (DILAUDID) injection 0.5 mg [[id number]] Ordering Provider: Varun Song MD Status: Completed [...] halo placement droPERidol (INAPSINE) injection 1.25 mg [[id number]] Ordering Provider: Varun Song MD Status: Dispensed (Past End Date/Time) Ordered On: 03/09/24 133 Starts/Ends: 03/09/24 141 - 03/10/24 141 Ordered Dose (Remaining/Total): 1.25 mg (1) Route: intravenous Frequency: Once Ordered Rate/Order Duration: -- / -- Admin Instructions: If administered IV push, administer over 5 min for adults. (No admins scheduled or recorded for this medication) HYDROmorphone (DILAUDID) injection 0.5 mg [[id number]] Ordering Provider: Varun Song MD Status: Completed [...] halo placement methocarbamoL (ROBAXIN) tablet 500 mg [[id number]] Ordering Provider: Bernardino Gleason MD Status: Completed (Past End Date/Time) Ordered On: 03/09/242042 Starts/Ends: 03/09/242114 - 03/09/242122 Ordered Dose (Remaining/Total): 500 mg (0/1) Route: oral Frequency: Once Ordered Rate/Order Duration: -- / -- Timestamps Action Dose Route Other Information 03/09/242122 Given 500 mg oral Performed by: Haley Varner RN Scanned Package: 30277-687-24 magnesium sulfate 2 g/50 mL in water (premix) 2 g [[id number]] Ordering Provider: Bernardino Gleason MD Status: Completed (Past End Date/Time) Ordered On: 03/09/242134 Starts/Ends: 03/09/242214 - 03/09/242326 Ordered Dose (Remaining/Total): 2 g (0/1) Route: intravenous Frequency: Once Ordered Rate/Order Duration: -- / 60 Minutes Timestamps Action Dose / Duration Route Other Information 03/09/242226 New Bag 2 g 60 Minutes intravenous Performed by: Haley Varner RN Scanned Package: 14622-485-50 potassium chloride (KLOR-CON) packet 20 mEq [[id number]] Ordering Provider: Bernardino Gleason MD Status: Completed [...] Performed by: Haley Varner RN Scanned Package: [address]-1 HYDROmorphone (DILAUDID) injection 0.5 mg [[id number]] Ordering Provider: Bernardino Gleason MD Status: Completed (Past End Date/Time) Ordered On: 03/10/24 0507 Starts/Ends: 03/10/24 0545 - 03/10/24 0516 Ordered Dose (Remaining/Total): 0.5 mg (0/1) Route: intravenous Frequency: Once Ordered Rate/Order Duration: -- / 2 Minutes Timestamps Action Dose / Duration Route Other Information 03/10/24 0514 Given 0.5 mg 2 Minutes intravenous Performed by: Haley Varner RN Scanned Package: 82416-819-59 magnesium sulfate 2 g/50 mL in water (premix) 2 g [[id number]] Ordering Provider: Yunier Leach MD Status: Completed [...] Performed by: Darius Ghosh RN Scanned Package: 71163-209-96 potassium chloride (KLOR-CON) packet 40 mEq [[id number]] Ordering Provider: Yunier Leach MD Status: Completed [...] Performed by: Janett Ledezma RN Scanned Package: [address]-5, [address]-0 sodium chloride 0.9% bolus 1,000 mL [[id number]] Ordering Provider: Eloise Knapp MD Status: Completed [...] Performed by: Soco Schwarz RN Scanned Package: 1276-3695-38, 5378-9521-71 magnesium sulfate 2 g/50 mL in water (premix) 2 g [[id number]] Ordering Provider: Jane Hoover MD Status: Completed [...] Performed by: Janett Ledezma RN Scanned Package: 33911-553-94 senna-docusate (PERICOLACE) 8.6-50 mg per tablet 1 tablet [[id number]] Ordering Provider: Ericka Estes MD Status: Dispensed Ordered On: 03/12/24 0954 Start: 03/12/24 2100 Ordered Dose (Remaining/Total): 1 tablet (--/--) Route: oral Frequency: 2 times daily Ordered Rate/Order Duration: -- / -- Timestamps Action Dose Route Other Information 03/31/24 0908 Given 1 tablet oral Performed by: Alyx Ma RN Scanned Package: 7327-7625-84 lidocaine (PF) (XYLOCAINE) 10 mg/mL (1 %) preservative free injection 10-20 mg [[id number]] Ordering Provider: Jane Hoover MD Status: Completed [...] PICC sodium chloride 0.9% flush 5-10 mL [[id number]] Ordering Provider: Ericka Estes MD Status: Verified [...] JULISSA sodium chloride 0.9% flush 5-20 mL [[id number]] Ordering Provider: Ericka Estes MD Status: Verified Ordered On: 03/12/241831 Start: 03/12/241827 Ordered Dose (Remaining/Total): 5-20 mL (--/--) Route: intra-catheter Frequency: As needed Ordered Rate/Order Duration: -- / -- Admin Instructions: Flush volume based on line type, size, and protocol. (No admins scheduled or recorded for this medication) sodium chloride 0.9% flush 5-10 mL [[id number]] Ordering Provider: Ericka Estes MD Status: Verified [...] RN sodium chloride 0.9% flush 5-20 mL [[id number]] Ordering Provider: Ericka Estes MD Status: Verified Ordered On: 03/12/241831 Start: 03/12/241830 Ordered Dose (Remaining/Total): 5-20 mL (--/--) Route: intra-catheter Frequency: As needed Ordered Rate/Order Duration: -- / -- Admin Instructions: Flush volume based on line type, size, and protocol. (No admins scheduled or recorded for this medication) acetaminophen (TYLENOL) tablet 1,000 mg [[id number]] Ordering Provider: Ericka Estes MD Status: Dispensed Ordered On: 03/13/241119 Start: 03/13/24 1200 Ordered Dose (Remaining/Total): 1,000 mg (--/--) Route: oral Frequency: Every 6 hours scheduled Ordered Rate/Order Duration: -- / -- Timestamps Action Dose Route Other Information 03/31/24 0602 Given 1,000 mg oral Performed by: Leighann Solitario Scanned Package: 8507-5545-17, 5759-0766-57 magnesium sulfate 2 g/50 mL in water (premix) 2 g [[id number]] Ordering Provider: Johnny Corcoran MD Status: Completed (Past End Date/Time) Ordered On: 03/13/24 112 Starts/Ends: 03/13/24 1200 - 03/13/24 1306 Ordered Dose (Remaining/Total): 2 g (0/1) Route: intravenous Frequency: Once Ordered Rate/Order Duration: -- / 60 Minutes Timestamps Action Dose / Duration Route Other Information 03/13/24 1206 New Bag 2 g 60 Minutes intravenous Performed by: Kenyatta Dumont RN Scanned Package: 08828-021-89 ceFAZolin (ANCEF) 1 gram/10 mL in sterile water (premix) 1,000 mg [[id number]] Ordering Provider: Ericka Estes MD Status: Completed [...] Performed by: June Guerrero RN Scanned Package: 2054-1322-79 miconazole (SECURA THICK) 2 % cream [[id number]] Ordering Provider: Linda Haile MD Status: Verified [...] topical Performed by: Mala Lion Scanned Package: 65678-641-48 haloperidol (HALDOL) 5 mg/mL injection - ADS Override Pull [[id number]] Status: Dispensed (Past End Date/Time) Ordered On: 03/14/24 045 Starts/Ends: 03/14/24 045 - 03/14/24 1659 Ordered Dose (Remaining/Total): -- (08/13) Route: -- Frequency: -- Ordered Rate/Order Duration: -- / -- Admin Instructions: Created by cabinet override Note to pharmacy: Created by cabinet override (No admins scheduled or recorded for this medication) linezolid (ZYVOX) tablet 600 mg [[id number]] Ordering Provider: Vince Allen MD Status: Completed (Past End Date/Time) Ordered On: 03/14/24 1155 Starts/Ends: 03/14/24 1230 - 03/14/242113 Ordered Dose (Remaining/Total): 600 mg (0/2) Route: oral Frequency: 2 times daily Ordered Rate/Order Duration: -- / -- Timestamps Action Dose Route Other Information 03/14/242113 Given 600 mg oral Performed by: June Guerrero RN Scanned Package: 63948-754-78 benzocaine-menthoL (CHLORASEPTIC) lozenge 1 lozenge [[id number]] Ordering Provider: Linda Haile MD Status: Dispensed Ordered On: 03/15/24436 Start: 03/15/24436 Ordered Dose (Remaining/Total): 1 lozenge (--/--) Route: mouth/throat Frequency: Every 3 hours PRN Ordered Rate/Order Duration: -- / -- Timestamps Action Dose Route Other Information 03/25/24 1224 Given 1 lozenge mouth/throat Performed by: Liberty Taylor RN Scanned Package: [id number] dextrose gel in packet 15 g [[id number]] Ordering Provider: Linda Haile MD Status: Verified [...] medication) dextrose (D10W) 10% bolus 250 mL [[id number]] Ordering Provider: Linda Haile MD Status: Verified [...] hour post treatment. If BG is less zrat276 mg/dL, repeat Q15 minute BG checks and treatment. Call MD for each episode of hypoglycemia. (No admins scheduled or recorded for this medication) glucagon injection 1 mg [[id number]] Ordering Provider: Linda Haile MD Status: Verified [...] this medication) oxyCODONE (ROXICODONE) tablet 7.5 mg [[id number]] Ordering Provider: Vince Allen MD Status: Dispensed Ordered On: 03/17/24 1037 Start: 03/17/24 1036 Ordered Dose (Remaining/Total): 7.5 mg (--/--) Route: oral Frequency: Every 4 hours PRN Ordered Rate/Order Duration: -- / -- Timestamps Action Dose Route Other Information 03/31/24 1008 Given 7.5 mg oral Performed by: Alyx Ma RN Scanned Package: 97524-039-08 hydrOXYzine (ATARAX) tablet 50 mg [[id number]] Ordering Provider: Demetri Serrano MD Status: Dispensed Ordered On: 03/17/24 1634 Start: 03/17/24 1634 Ordered Dose (Remaining/Total): 50 mg (--/--) Route: oral Frequency: Every 4 hours PRN Ordered Rate/Order Duration: -- / -- Timestamps Action Dose Route Other Information 03/30/242024 Given 50 mg oral Performed by: Leighann Solitario Scanned Package: 25716-858-67, 24836-118-08 enoxaparin (LOVENOX) syringe 30 mg [[id number]] Ordering Provider: Xochitl Esquivel NP Status: Dispensed Ordered On: 03/18/24 1152 Start: 03/18/242099 Ordered Dose (Remaining/Total): 30 mg (--/--) Route: subcutaneous Frequency: Every 12 hours scheduled Ordered Rate/Order Duration: -- / -- Timestamps Action Dose Route / Site Other Information 03/31/24 0908 Given 30 mg subcutaneous Left Upper Arm Performed by: Alyx Ma RN Scanned Package: 31565-933-16 lidocaine (ASPERCREME) 4 % patch 2 patch [[id number]] Ordering Provider: Xochitl Esquivel NP Status: Dispensed [...] (Comment) Performed by: Buffy Washington Scanned Package: 2832-4160-11, 9696-5702-51 traZODone (DESYREL) tablet 50 mg [[id number]] Ordering Provider: Xochitl Esquivel NP Status: Dispensed Ordered On: 03/18/24 1529 Start: 03/18/24 2100 Ordered Dose (Remaining/Total): 50 mg (--/--) Route: oral Frequency: Nightly Ordered Rate/Order Duration: -- / -- Timestamps Action Dose Route Other Information 03/30/242023 Given 50 mg oral Performed by: Leighann Solitario Scanned Package: 49585-458-51 polyethylene glycol (MIRALAX) packet 17 g [[id number]] Ordering Provider: Xochitl Esquivel NP Status: Dispensed Ordered On: 03/19/24 0903 Start: 03/19/24 2100 Ordered Dose (Remaining/Total): 17 g (--/--) Route: oral Frequency: 2 times daily Ordered Rate/Order Duration: -- / -- Timestamps Action Dose Route Other Information 03/22/24 0837 Given 17 g oral Performed by: Chichi Mitchell Scanned Package: 73828-665-59 bisacodyL (DULCOLAX) suppository 10 mg [[id number]] Ordering Provider: Xochitl Esquivel NP Status: Dispensed (Past End Date/Time) Ordered On: 03/19/24 0915 Starts/Ends: 03/19/24 1000 - 03/20/24 1000 Ordered Dose (Remaining/Total): 10 mg (1/1) Route: rectal Frequency: Once Ordered Rate/Order Duration: -- / -- (No admins scheduled or recorded for this medication) HYDROmorphone (DILAUDID) injection 0.2 mg [[id number]] Ordering Provider: Demetri Serrano MD Status: Completed (Past End Date/Time) Ordered On: 03/21/24 0528 Starts/Ends: 03/21/24 0600 - 03/21/24 0545 Ordered Dose (Remaining/Total): 0.2 mg (0/1) Route: intravenous Frequency: Once Ordered Rate/Order Duration: -- / 2 Minutes Timestamps Action Dose / Duration Route Other Information 03/21/24 0543 Given 0.2 mg 2 Minutes intravenous Performed by: Elizabeth Bell RN Scanned Package: 45475-896-84 pregabalin (LYRICA) capsule 100 mg [[id number]] Ordering Provider: Shi Levi MD Status: Dispensed Ordered On: 03/21/24 0730 Start: 03/21/24 09 Ordered Dose (Remaining/Total): 100 mg (--/--) Route: oral Frequency: 3 times daily Ordered Rate/Order Duration: -- / -- Timestamps Action Dose Route Other Information 03/31/24 09 Given 100 mg oral Performed by: Alyx Ma RN Scanned Package: 68522-170-50 insulin glargine (LANTUS, SEMGLEE) 100 unit/mL injection 2 Units [[id number]] Ordering Provider: Demetri Serrano MD Status: Completed [...] Performed by: Dilcia Torres RN Scanned Package: 80108-712-32 insulin glargine (LANTUS, SEMGLEE) 100 unit/mL injection 30 Units [[id number]] Ordering Provider: Ximena Diaz NP Status: Dispensed [...] Performed by: Alyx Ma RN Scanned Package: 70301-035-16 insulin lispro (HumaLOG, ADMELOG) 100 unit/mL injection 2 Units [[id number]] Ordering Provider: Ximena Diaz NP Status: Verified Ordered On: 03/25/24 0737 Start: 03/25/24 0734 Ordered Dose (Remaining/Total): 2 Units (--/--) Route: subcutaneous Frequency: Every 6 hours PRN Ordered Rate/Order Duration: -- / -- Admin Instructions: Please give with snacks. (No admins scheduled or recorded for this medication) insulin lispro (HumaLOG, ADMELOG) 100 unit/mL injection 20 Units [[id number]] Ordering Provider: Ximena Diaz NP Status: Dispensed [...] Performed by: Alyx Ma RN Scanned Package: 7645-3522-34 oxyCODONE (ROXICODONE) tablet 5 mg [[id number]] Ordering Provider: Demetri Serrano MD Status: Completed (Past End Date/Time) Ordered On: 03/28/24 1127 Starts/Ends: 03/28/24 1200 - 03/28/24 1214 Ordered Dose (Remaining/Total): 5 mg (0/1) Route: oral Frequency: Once Ordered Rate/Order Duration: -- / -- Timestamps Action Dose Route Other Information 03/28/24 1214 Given 5 mg oral Performed by: Lorena Acevedo RN Scanned Package: 42979-490-86 methocarbamoL (ROBAXIN) tablet 1,000 mg [[id number]] Ordering Provider: Karuna Mitchell NP Status: Dispensed Ordered On: 03/28/24 1352 Start: 03/28/24 1700 Ordered Dose (Remaining/Total): 1,000 mg (--/--) Route: oral Frequency: 4 times daily Ordered Rate/Order Duration: -- / -- Timestamps Action Dose Route Other Information 03/31/24 0942 Given 1,000 mg oral Performed by: Alyx Ma RN Scanned Package: 14505-994-82, 34561-497-25 insulin lispro (HumaLOG, ADMELOG) 100 unit/mL injection 0-10 Units [[id number]] Ordering Provider: Messi Hummel MD Status: Dispensed [...] Performed by: Alyx Ma RN Scanned Package: 2702-7098-75 miconazole 2 % cream [[id number]] Ordering Provider: Riki Isidro MD Status: Dispensed [...] pain, esnure rest, monitor las/ surgical wounds Diagnostic Sales Specialist Patient Centered Goal for Treatment: Mobility, Pain [...] related to Diabetes will improve: Collaborate with hip hop dance instructor for diabetes evaluation and/or teaching Instruct on [...] related to Diabetes will improve: Collaborate with hip hop dance instructor for diabetes evaluation and/or teaching Instruct on [...] Contact Info: New Consults: Place order in [facility]; If URGENT, call Diabetes Fellow: [phone]. All consults will be seen within 24hrs Check 'Treatment Team' assignment for Diabetes 1 vs 2 vs 3 General Endocrinology (Non-Diabetes): [phone] Diabetes After-Hours & Weekends: Diabetes Fellow Patient: Farzana Bran, 59 y.o. female (: 1965) Room: [place] [address] [address] ( ) LOS: 20 Farzana Bran is [...] comorbidities: <7% Diabetes Provider: PCP Insurance: Payor: [employer] MEDICARE / Plan: MEDICARE SOLUTIONS / Product Type: [facility] MEDICARE / Home regimen: Lantus 10 units [...] labs, pain, free from falls and injury. Diagnostic Sales Specialist Patient Centered Goal for Treatment: Mobility, Pain management Summary: continue with plan of care * Consults, Subsequent - Messi Hummel MD - 03/29/2024 10:02 AM CDT Images from the original note were not included. Division of Endocrinology, Metabolism, & Lipid Research Contact Info: New Consults: Place order in [facility]; If URGENT, call Diabetes Fellow: [phone]. All consults will be seen within 24hrs Check 'Treatment Team' assignment for Diabetes 1 vs 2 vs 3 General Endocrinology (Non-Diabetes): [phone] Diabetes After-Hours & Weekends: Diabetes Fellow Endocrinology & Diabetes Brief Note Patient: Farzana Bran, 59 y.o. female (: 1965) Room: [place] [id number] ( ) LOS: 20 Farzana Bran is [...] acute events overnight. Patient irritated by food analyst. High yesterday attributed to pain. Summary from [...] comorbidities: <7% Diabetes Provider: PCP Insurance: Payor: [facility] MEDICARE / Plan: MEDICARE SOLUTIONS / [...] Pain management, ambulation, promote comfort and safety [facility] Patient Centered Goal for Treatment: Mobility, Pain [...] fracture of eleventh thoracic vertebra, initial encounter ([facility]) [S22.082A] PMD: Nayana Garber PA Medication Recommendations [...] yearly or sooner as indicated by your artificial plastic eye maker Pending results for primary service or primary [...] Bran, 59 y.o. female (: 1965) Room: [id number] ( ) LOS: 19 Farzana Bran is [...] comorbidities: <7% Diabetes Provider: PCP Insurance: Payor: [facility] MEDICARE / Plan: MEDICARE SOLUTIONS / [...] juices, no regular soda - please have special educator meet with patient - please have animal pathologist meet with patient- needs further education on [...] & Lipid Research Contact Info: New Consults: [phone]) General Endocrine (Non-Diabetes): [phone] (Check 'Treatment Team' assignment for Diabetes 1 vs 2 vs 3) Diabetes After-Hours & Weekends: Diabetes Fellow [phone] or [phone] * Plan of Care - Radha Campos RN - 03/28/2024 9:05 AM CDT Akanksha of [facility] ([phone]) left voicemail after hours requesting additional information for patient. Left message with Akanksha to call CM back. Spoke to Akanksha of [facility]. Akanksha informed CM she will review referral with corporate nurse and will call back. Spoke to Moustapha of [facility]. Declined patient at this time due to patient not actively participating in therapy and complex needs. Will follow up with patient to request additional referrals. UPDATE Attempted to update patient on above. Staff currently working with patient. * Plan of Care - Radha Campos RN - 03/27/2024 11:59 AM CDT [facility] unable to accept patient due to patient's care needs exceeding current capacity. Patient requested referral be re-sent to [facility]. CM sent updates to this facility and [facility] and [facility] and [facility] in [place], [place]. Spoke to Maday of [facility] in [place], [place]. Unable to accept patient due to patient's care needs exceeding current capacity. Spoke to admissions of [facility] and [facility] ([phone]). Was informed to fax referral to [phone]. This was completed. * ECIN Note - [...] midline - Dynamic Sitting-Sitting Surface -- Chair -FL Dynamic Sitting-Level of Assistance -- Close supervision - Static Standing-Balance Support -- Bilateral upper extremity supported -FL Static Standing-Standing Surface -- Floor -FL Static Standing-Level of Assistance -- Contact guard - Static Standing-Comment/# of Minutes -- Guarding assistance for instability affecting balance - Dynamic Standing-Balance Support -- No upper extremity supported;Unilateral upper extremity supported Prop support on elbows with prolonged activity - Dynamic Standing-Balance -- Lateral lean;Forward lean;Reaching for objects;Reaching across midline Standing during grooming task - Dynamic Standing-Standing Surface -- Floor -FL Dynamic Standing-Level of Assistance -- Minimum assistance [...] the discharge summary - OT Recommendation -- Halfway Facility -MD Patient at high risk for [...] shoes, but they've been unable. Therapist contacted [facility] to order post- op shoe for right [...] the discharge summary -SM Recommendation/Plan PT Recommendation/Plan Halfway Facility -LM Halfway Facility -NB Halfway Facility -LM Halfway Facility -SM Patient at high risk for [...] Recent Administrations acetaminophen (TYLENOL) tablet 1,000 mg [[id number]] Ordering Provider: Rosalio Calixto MD Status: Completed (Past End Date/Time) Ordered On: 03/08/241836 Starts/Ends: 03/08/241837 - 03/08/241855 Ordered Dose (Remaining/Total): 1,000 mg (0/1) Route: oral Frequency: Once Ordered Rate/Order Duration: -- / -- Timestamps Action Dose Route Other Information 03/08/241855 Given 1,000 mg oral Performed by: Brionna Pitt RN Scanned Package: 0083-4835-74, 7549-9017-12 droPERidol (INAPSINE) injection 1.25 mg [[id number]] Ordering Provider: Rosalio Calixto MD Status: Completed [...] Performed by: Brionna Pitt RN Scanned Package: 5915-7512-54 fentaNYL (SUBLIMAZE) preservative free injection 50 mcg [[id number]] Ordering Provider: Rosalio Calixto MD Status: Completed [...] Performed by: Brionna Pitt RN Scanned Package: 3229-1678-74 ioversoL (OPTIRAY 350) syringe 100 mL [[id number]] Ordering Provider: Rosalio Calixto MD Status: Completed [...] RT ioversoL (OPTIRAY 350) syringe 125 mL [[id number]] Ordering Provider: Rosalio Calixto MD Status: Completed [...] Hill, RT gadoterate meglumine injection 14 mL [[id number]] Ordering Provider: Rosalio Calixto MD Status: Completed [...] (HumaLOG, ADMELOG) 100 unit/mL injection 4 Units [[id number]] Ordering Provider: Ho An MD Status: Completed (Past End Date/Time) Ordered On: 03/09/24332 Starts/Ends: 03/09/24333 - 03/09/24342 Ordered Dose (Remaining/Total): 4 Units (0/1) Route: subcutaneous Frequency: Once Ordered Rate/Order Duration: -- / -- Timestamps Action Dose Route / Site Other Information 03/09/24342 Given 4 Units subcutaneous Left Lower Abdomen Performed by: Brionna Pitt RN Scanned Package: 8914-0479-30 droPERidol (INAPSINE) injection 1.25 mg [[id number]] Ordering Provider: Ho An MD Status: Completed [...] Performed by: Odilia Vega RN Scanned Package: 8074-4486-12 sodium chloride 0.9% flush 0.5-20 mL [[id number]] Ordering Provider: Ericka Estes MD Status: Verified Ordered On: 03/09/24608 Start: 03/09/24 0645 Ordered Dose (Remaining/Total): 0.5-20 mL (--/--) Route: intra-catheter Frequency: Every 8 hours scheduled Ordered Rate/Order Duration: -- / -- Admin Instructions: Flush volume based on line type and size. Timestamps Action Dose Route Other Information 03/26/245 Given 10 mL intra-catheter Performed by: Mary Zarate Scanned Package: [id number] sodium chloride 0.9% flush 0.5-20 mL [[id number]] Ordering Provider: Ericka Estes MD Status: Verified [...] Performed by: Isha Cox RN Scanned Package: [id number] Carrier Fluids for Secondary Infusion - 0.9% Sodium Chloride [[id number]] Ordering Provider: Ericka Estes MD Status: Dispensed [...] (1 %) preservative free injection 200 mg [[id number]] Ordering Provider: Varun Song MD Status: Completed (Past End Date/Time) Ordered On: 03/09/24 1240 Starts/Ends: 03/09/24 1315 - 03/09/24 1312 Ordered Dose (Remaining/Total): 20 mL (0/1) Route: infiltration Frequency: Once Ordered Rate/Order Duration: -- / -- Timestamps Action Dose Route Other Information 03/09/24 1312 Given 200 mg infiltration Performed by: Keyonna Hernandez RN HYDROmorphone (DILAUDID) injection 0.5 mg [[id number]] Ordering Provider: Varun Song MD Status: Completed [...] halo placement droPERidol (INAPSINE) injection 1.25 mg [[id number]] Ordering Provider: Varun Song MD Status: Dispensed (Past End Date/Time) Ordered On: 03/09/24 1336 Starts/Ends: 03/09/24 1415 - 03/10/24 1415 Ordered Dose (Remaining/Total): 1.25 mg (1/1) Route: intravenous Frequency: Once Ordered Rate/Order Duration: -- / -- Admin Instructions: If administered IV push, administer over 5 min for adults. (No admins scheduled or recorded for this medication) HYDROmorphone (DILAUDID) injection 0.5 mg [[id number]] Ordering Provider: Varun Song MD Status: Completed [...] halo placement methocarbamoL (ROBAXIN) tablet 500 mg [[id number]] Ordering Provider: Bernardino Gleason MD Status: Completed (Past End Date/Time) Ordered On: 03/09/242042 Starts/Ends: 03/09/242114 - 03/09/242122 Ordered Dose (Remaining/Total): 500 mg (0/1) Route: oral Frequency: Once Ordered Rate/Order Duration: -- / -- Timestamps Action Dose Route Other Information 03/09/242122 Given 500 mg oral Performed by: Haley Varner RN Scanned Package: 03898-042-39 magnesium sulfate 2 g/50 mL in water (premix) 2 g [[id number]] Ordering Provider: Bernardino Gleason MD Status: Completed (Past End Date/Time) Ordered On: 03/09/242134 Starts/Ends: 03/09/242214 - 03/09/242326 Ordered Dose (Remaining/Total): 2 g (0/1) Route: intravenous Frequency: Once Ordered Rate/Order Duration: -- / 60 Minutes Timestamps Action Dose / Duration Route Other Information 03/09/242226 New Bag 2 g 60 Minutes intravenous Performed by: Haley Varner RN Scanned Package: 11483-368-18 potassium chloride (KLOR-CON) packet 20 mEq [[id number]] Ordering Provider: Bernardino Gleason MD Status: Completed [...] Performed by: Haley Varner RN Scanned Package: [address]-2 HYDROmorphone (DILAUDID) injection 0.5 mg [[id number]] Ordering Provider: Bernardino Gleason MD Status: Completed (Past End Date/Time) Ordered On: 03/10/24 0507 Starts/Ends: 03/10/24 0545 - 03/10/24 0516 Ordered Dose (Remaining/Total): 0.5 mg (0/1) Route: intravenous Frequency: Once Ordered Rate/Order Duration: -- / 2 Minutes Timestamps Action Dose / Duration Route Other Information 03/10/2414 Given 0.5 mg 2 Minutes intravenous Performed by: Haley Varner RN Scanned Package: 73877-614-71 magnesium sulfate 2 g/50 mL in water (premix) 2 g [[id number]] Ordering Provider: Yunier Leach MD Status: Completed [...] Performed by: Darius Ghosh RN Scanned Package: 09308-847-17 potassium chloride (KLOR-CON) packet 40 mEq [[id number]] Ordering Provider: Yunier Leach MD Status: Completed [...] Performed by: Janett Ledezma RN Scanned Package: [address]-5, [address]-3 sodium chloride 0.9% bolus 1,000 mL [[id number]] Ordering Provider: Eloise Knapp MD Status: Completed [...] Performed by: Soco Schwarz RN Scanned Package: 4065-9846-98, 4569-5798-75 magnesium sulfate 2 g/50 mL in water (premix) 2 g [[id number]] Ordering Provider: Jane Hoover MD Status: Completed [...] Performed by: Janett Ledezma RN Scanned Package: 82363-295-99 senna-docusate (PERICOLACE) 8.6-50 mg per tablet 1 tablet [[id number]] Ordering Provider: Ericka Estes MD Status: Dispensed Ordered On: 03/12/24 0954 Start: 03/12/242099 Ordered Dose (Remaining/Total): 1 tablet (--/--) Route: oral Frequency: 2 times daily Ordered Rate/Order Duration: -- / -- Timestamps Action Dose Route Other Information 03/27/24 0827 Given 1 tablet oral Performed by: Mala Lion Scanned Package: 3455-9470-38 lidocaine (PF) (XYLOCAINE) 10 mg/mL (1 %) preservative free injection 10-20 mg [[id number]] Ordering Provider: Jane Hoover MD Status: Completed [...] PICC sodium chloride 0.9% flush 5-10 mL [[id number]] Ordering Provider: Ericka Estes MD Status: Verified Ordered On: 03/12/241831 Start: 03/12/242099 Ordered Dose (Remaining/Total): 5-10 mL (--/--) Route: intra-catheter Frequency: Every 12 hours scheduled Ordered Rate/Order Duration: -- / -- Admin Instructions: Flush volume based on line type, size, and protocol. Timestamps Action Dose Route Other Information 03/25/24 1226 Given 10 mL intra-catheter Performed by: Liberty Taylor RN Scanned Package: [id number] sodium chloride 0.9% flush 5-20 mL [[id number]] Ordering Provider: Ericka Estes MD Status: Verified Ordered On: 03/12/241831 Start: 03/12/241827 Ordered Dose (Remaining/Total): 5-20 mL (--/--) Route: intra-catheter Frequency: As needed Ordered Rate/Order Duration: -- / -- Admin Instructions: Flush volume based on line type, size, and protocol. (No admins scheduled or recorded for this medication) sodium chloride 0.9% flush 5-10 mL [[id number]] Ordering Provider: Ericka Estes MD Status: Verified Ordered On: 03/12/241831 Start: 03/12/242099 Ordered Dose (Remaining/Total): 5-10 mL (--/--) Route: intra-catheter Frequency: Every 12 hours scheduled Ordered Rate/Order Duration: -- / -- Admin Instructions: Flush volume based on line type, size, and protocol. Timestamps Action Dose Route Other Information 03/25/24 1226 Given 10 mL intra-catheter Performed by: Liberty Taylor RN Scanned Package: [id number] sodium chloride 0.9% flush 5-20 mL [[id number]] Ordering Provider: Ericka Estes MD Status: Verified Ordered On: 03/12/241831 Start: 03/12/241830 Ordered Dose (Remaining/Total): 5-20 mL (--/--) Route: intra-catheter Frequency: As needed Ordered Rate/Order Duration: -- / -- Admin Instructions: Flush volume based on line type, size, and protocol. (No admins scheduled or recorded for this medication) acetaminophen (TYLENOL) tablet 1,000 mg [[id number]] Ordering Provider: Ericka Estes MD Status: Dispensed Ordered On: 03/13/24 1120 Start: 03/13/24 1200 Ordered Dose (Remaining/Total): 1,000 mg (--/--) Route: oral Frequency: Every 6 hours scheduled Ordered Rate/Order Duration: -- / -- Timestamps Action Dose Route Other Information 03/27/24 0604 Given 1,000 mg oral Performed by: Mary Zarate Scanned Package: 0098-4901-78, 9698-8359-02 magnesium sulfate 2 g/50 mL in water (premix) 2 g [[id number]] Ordering Provider: Johnny Corcoran MD Status: Completed (Past End Date/Time) Ordered On: 03/13/24 1122 Starts/Ends: 03/13/24 1200 - 03/13/24 1306 Ordered Dose (Remaining/Total): 2 g (0/1) Route: intravenous Frequency: Once Ordered Rate/Order Duration: -- / 60 Minutes Timestamps Action Dose / Duration Route Other Information 03/13/24 1206 New Bag 2 g 60 Minutes intravenous Performed by: Kenyatta Dumont RN Scanned Package: 03882-292-90 ceFAZolin (ANCEF) 1 gram/10 mL in sterile water (premix) 1,000 mg [[id number]] Ordering Provider: Ericka Estes MD Status: Completed [...] Performed by: June Guerrero RN Scanned Package: 9190-9594-04 miconazole (SECURA THICK) 2 % cream [[id number]] Ordering Provider: Linda Haile MD Status: Verified Ordered On: 03/14/24 0011 Starts/Ends: 03/14/24 0045 - 03/27/242058 Ordered Dose (Remaining/Total): -- (03/09) Route: topical Frequency: 2 times daily Ordered Rate/Order Duration: -- / -- Question Answer Comment Apply to affected area:: rash -- Timestamps Action Dose / Rate / Duration Route Other Information 03/27/24 0831 Given -- topical Performed by: Mala Lion Scanned Package: 39756-886-62 haloperidol (HALDOL) 5 mg/mL injection - ADS Override Pull [[id number]] Status: Dispensed (Past End Date/Time) Ordered On: 03/14/24451 Starts/Ends: 03/14/24451 - 03/14/24 1659 Ordered Dose (Remaining/Total): -- (08/13) Route: -- Frequency: -- Ordered Rate/Order Duration: -- / -- Admin Instructions: Created by cabinet override Note to pharmacy: Created by cabinet override (No admins scheduled or recorded for this medication) linezolid (ZYVOX) tablet 600 mg [[id number]] Ordering Provider: Vince Allen MD Status: Completed (Past End Date/Time) Ordered On: 03/14/24 1155 Starts/Ends: 03/14/241229 - 03/14/242113 Ordered Dose (Remaining/Total): 600 mg (0) Route: oral Frequency: 2 times daily Ordered Rate/Order Duration: -- / -- Timestamps Action Dose Route Other Information 03/14/242113 Given 600 mg oral Performed by: June Guerrero RN Scanned Package: 09848-308-22 benzocaine-menthoL (CHLORASEPTIC) lozenge 1 lozenge [[id number]] Ordering Provider: Linda Haile MD Status: Dispensed Ordered On: 03/15/247 Start: 03/15/24 0437 Ordered Dose (Remaining/Total): 1 lozenge (--/--) Route: mouth/throat Frequency: Every 3 hours PRN Ordered Rate/Order Duration: -- / -- Timestamps Action Dose Route Other Information 03/25/24 1224 Given 1 lozenge mouth/throat Performed by: Liberty Taylor RN Scanned Package: [id number] dextrose gel in packet 15 g [[id number]] Ordering Provider: Linda Haile MD Status: Verified [...] medication) dextrose (D10W) 10% bolus 250 mL [[id number]] Ordering Provider: Linda Haile MD Status: Verified [...] hour post treatment. If BG is less [id number] mg/dL, repeat Q15 minute BG checks and treatment. Call MD for each episode of hypoglycemia. (No admins scheduled or recorded for this medication) glucagon injection 1 mg [[id number]] Ordering Provider: Linda Haile MD Status: Verified [...] (HumaLOG, ADMELOG) 100 unit/mL injection 0-10 Units [[id number]] Ordering Provider: Linda Haile MD Status: Dispensed [...] Arm Performed by: Mala Lion Scanned Package: [id number] insulin lispro (HumaLOG, ADMELOG) 100 unit/mL injection 0-5 Units [[id number]] Ordering Provider: Linda Haile MD Status: Dispensed [...] Abdomen Performed by: Mary Zarate Scanned Package: [id number] oxyCODONE (ROXICODONE) tablet 7.5 mg [[id number]] Ordering Provider: Vince Allen MD Status: Dispensed Ordered On: 03/17/24 1037 Start: 03/17/24 1036 Ordered Dose (Remaining/Total): 7.5 mg (--/--) Route: oral Frequency: Every 4 hours PRN Ordered Rate/Order Duration: -- / -- Timestamps Action Dose Route Other Information 03/27/24 0827 Given 7.5 mg oral Performed by: Mala Lion Scanned Package: [id number] hydrOXYzine (ATARAX) tablet 50 mg [[id number]] Ordering Provider: Demetri Serrano MD Status: Dispensed Ordered On: 03/17/24 1634 Start: 03/17/24 163 Ordered Dose (Remaining/Total): 50 mg (--/--) Route: oral Frequency: Every 4 hours PRN Ordered Rate/Order Duration: -- / -- Timestamps Action Dose Route Other Information 03/27/24 0827 Given 50 mg oral Performed by: Mala Lion Scanned Package: 04828-566-15, 61568-768-73 enoxaparin (LOVENOX) syringe 30 mg [[id number]] Ordering Provider: Xochitl Esquivel NP Status: Dispensed Ordered On: 03/18/24 1152 Start: 03/18/24 2100 Ordered Dose (Remaining/Total): 30 mg (--/--) Route: subcutaneous Frequency: Every 12 hours scheduled Ordered Rate/Order Duration: -- / -- Timestamps Action Dose Route / Site Other Information 03/27/24 0827 Given 30 mg subcutaneous Right Upper Abdomen Performed by: Mala Lion Scanned Package: [id number] lidocaine (ASPERCREME) 4 % patch 2 patch [[id number]] Ordering Provider: Xochitl Esquivel NP Status: Dispensed [...] Comments: r arm r shoulder Scanned Package: 2791-5412-95, 8214-1010-39 methocarbamoL (ROBAXIN) tablet 750 mg [[id number]] Ordering Provider: Xochitl Esquivel NP Status: Dispensed Ordered On: 03/18/24 1152 Start: 03/18/24 1600 Ordered Dose (Remaining/Total): 750 mg (--/--) Route: oral Frequency: 3 times daily Ordered Rate/Order Duration: -- / -- Timestamps Action Dose Route Other Information 03/27/24 0827 Given 750 mg oral Performed by: Mala Lion Scanned Package: 70435-337-08 traZODone (DESYREL) tablet 50 mg [[id number]] Ordering Provider: Xochitl Esquivel NP Status: Dispensed Ordered On: 03/18/24 1529 Start: 03/18/24 2100 Ordered Dose (Remaining/Total): 50 mg (--/--) Route: oral Frequency: Nightly Ordered Rate/Order Duration: -- / -- Timestamps Action Dose Route Other Information 03/26/24 2144 Given 50 mg oral Performed by: Mary Zarate Scanned Package: 61818-008-02 polyethylene glycol (MIRALAX) packet 17 g [[id number]] Ordering Provider: Xochitl Esquivel NP Status: Dispensed Ordered On: 03/19/24 0903 Start: 03/19/24 2100 Ordered Dose (Remaining/Total): 17 g (--/--) Route: oral Frequency: 2 times daily Ordered Rate/Order Duration: -- / -- Timestamps Action Dose Route Other Information 03/22/24 0837 Given 17 g oral Performed by: Chichi Mitchell Scanned Package: 69260-379-29 bisacodyL (DULCOLAX) suppository 10 mg [[id number]] Ordering Provider: Xochitl Esquivel NP Status: Dispensed (Past End Date/Time) Ordered On: 03/19/24 0915 Starts/Ends: 03/19/24 1000 - 03/20/24 1000 Ordered Dose (Remaining/Total): 10 mg (08/13) Route: rectal Frequency: Once Ordered Rate/Order Duration: -- / -- (No admins scheduled or recorded for this medication) HYDROmorphone (DILAUDID) injection 0.2 mg [[id number]] Ordering Provider: Demetri Serrano MD Status: Completed (Past End Date/Time) Ordered On: 03/21/24 0528 Starts/Ends: 03/21/24 0600 - 03/21/24 0545 Ordered Dose (Remaining/Total): 0.2 mg (0/1) Route: intravenous Frequency: Once Ordered Rate/Order Duration: -- / 2 Minutes Timestamps Action Dose / Duration Route Other Information 03/21/24 0543 Given 0.2 mg 2 Minutes intravenous Performed by: Elizabeth Bell RN Scanned Package: 62493-781-00 pregabalin (LYRICA) capsule 100 mg [[id number]] Ordering Provider: Shi Levi MD Status: Dispensed Ordered On: 03/21/24 0730 Start: 03/21/24 0900 Ordered Dose (Remaining/Total): 100 mg (--/--) Route: oral Frequency: 3 times daily Ordered Rate/Order Duration: -- / -- Timestamps Action Dose Route Other Information 03/27/24 0827 Given 100 mg oral Performed by: Mala Lion Scanned Package: 38539-689-66 insulin glargine (LANTUS, SEMGLEE) 100 unit/mL injection 2 Units [[id number]] Ordering Provider: Demetri Serrano MD Status: Completed [...] Performed by: Dilcia Torres, JULISSA Scanned Package: 71099-091-63 insulin glargine (LANTUS, SEMGLEE) 100 unit/mL injection 30 Units [[id number]] Ordering Provider: Ximena Diaz NP Status: Dispensed [...] Arm Performed by: Mala Lion Scanned Package: 71364-219-50 insulin lispro (HumaLOG, ADMELOG) 100 unit/mL injection 2 Units [[id number]] Ordering Provider: Ximena Diaz NP Status: Verified Ordered On: 03/25/24736 Start: 03/25/24733 Ordered Dose (Remaining/Total): 2 Units (--/--) Route: subcutaneous Frequency: Every 6 hours PRN Ordered Rate/Order Duration: -- / -- Admin Instructions: Please give with snacks. (No admins scheduled or recorded for this medication) insulin lispro (HumaLOG, ADMELOG) 100 unit/mL injection 20 Units [[id number]] Ordering Provider: Ximena Diaz NP Status: Dispensed [...] Arm Performed by: Mala Lion Scanned Package: 8577-9847-48 * ECIN Note - Radha Campos RN - 03/27/2024 11:56 AM CDT Images from the original note were not included. 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 female (: 1965) Room: [id number] ( ) LOS: 18 Farzana Bran is [...] comorbidities: <7% Diabetes Provider: PCP Insurance: Payor: [facility] / Plan: MEDICARE SOLUTIONS / Product Type: [facility] MEDICARE / Home regimen: Lantus 10 units [...] juices, no regular soda - please have special educator meet with patient - please have animal pathologist meet with patient- needs further education on [...] & Lipid Research Contact Info: New Consults: [phone]) General Endocrine (Non-Diabetes): [phone] (Check 'Treatment Team' assignment for Diabetes 1 vs 2 vs 3) Diabetes After-Hours & Weekends: Diabetes Fellow [phone] or [phone] * Plan of Care - Radha Campos RN - 03/27/2024 9:04 AM CDT Per Rounds: Patient medically stable for discharge. ADD: pending accepting facility and insurance authorization Plan & referrals made/in place: Reached out to shashi Morales of [facility] regarding status of referral. Patient's Identified Problem/Goal Problem: Ensure acute medical needs are met and patient has a safe discharge plan. Goal: Secure a discharge plan that patient/family are agreeable with and ensure patient has continuum of care. Almond Huller will continue to follow and assist with discharge planning as needed * Consults, Subsequent - Viet Gary MD - 03/26/2024 2:49 PM CDT Endocrinology & Diabetes Brief Note Patient: Farzana Bran, 59 y.o. female (: 1965) Room: [id number] ( ) LOS: 17 Farzana Bran is [...] comorbidities: <7% Diabetes Provider: PCP Insurance: Payor: [facility] / Plan: MEDICARE SOLUTIONS / Product Type: [facility] MEDICARE / Home regimen: Lantus 10 units [...] juices, no regular soda - please have special educator meet with patient - please have animal pathologist meet with patient- needs further education on [...] & Lipid Research Contact Info: New Consults: [phone]) General Endocrine (Non-Diabetes): [phone] (Check 'Treatment Team' assignment for Diabetes 1 vs 2 vs 3) Diabetes After-Hours & Weekends: Diabetes Fellow [phone] or [phone] * Plan of Care - Radha Campos RN - 03/26/2024 10:43 AM CDT Per Rounds: Patient medically stable for discharge ADD: pending accepting facility and insurance authorization Plan & referrals made/in place: Left voicemail with liaison Carmen of [facility] ([phone]). Patient's Identified Problem/Goal Problem: Ensure acute medical needs are met and patient has a safe discharge plan. Goal: Secure a discharge plan that patient/family are agreeable with and ensure patient has continuum of care. Almond Huller will continue to follow and assist with discharge planning as needed UPDATE: Spoke to Carmen of [facility]. Carmen stated referral is actively [...] for the Shift: ambulation, brace, BG monitoring Mcc Patient Centered Goal for Treatment: Mobility, Pain [...] Campos RN - 03/25/2024 9:38 AM CDT [facility] unable to accept patient due to patient care needs exceeds capacity. Re-faxed referral to patient's first choice [facility] to [phone]. UPDATE: Spoke to Alyx of [facility]. Confirmed referral has been received and will be reviewed today. * Consults, Ximena Alvarez NP - 03/25/2024 7:38 AM CDT Endocrinology & Diabetes Brief Note Patient: Farzana Bran, 59 y.o. female (: 1965) [id number] ( ) LOS: 16 Farzana Bran is [...] comorbidities: <7% Diabetes Provider: PCP Insurance: Payor: [facility] / Plan: MEDICARE SOLUTIONS / Product Type: [facility] MEDICARE / Home regimen: Lantus 10 units [...] juices, no regular soda - please have special educator meet with patient - please have animal pathologist meet with patient- needs further education on [...] & Lipid Research Contact Info: New Consults: [phone]) General Endocrine (Non-Diabetes): [phone] (Check 'Treatment Team' assignment for Diabetes 1 vs 2 vs 3) Diabetes After-Hours & Weekends: Diabetes Fellow [phone] or [phone] * Plan of Care - Maryuri Limon RN - 03/24/2024 5:15 PM CDT Goals: Clinical Goals for the Shift: OOB, monitor Glucose, monitor VS, encourage IS Mcc Patient Centered Goal for Treatment: Mobility, Pain [...] insurance authorization Plan & referrals made/in place: [facility] unable to accept due to patient care needs exceeds capacity Presented list of SNF rehabs. [facility]. [facility] Patient's Identified Problem/Goal Problem: Ensure acute medical needs are met and patient has a safe discharge plan. Goal: Secure a discharge plan that patient/family are agreeable with and ensure patient has continuum of care. Almond Huller will continue to follow and assist with [...] pedal edema. -NB LE Dressing: Equipment Utilized Informatics Coordinator;Sock aid;Dressing stick -NB Toileting: Where assessed Bedside [...] this the discharge summary -NB OT Recommendation Halfway Facility -NB Patient at high risk for [...] Equipment-Currently Using -- None - Level of Canones -- Independent with ADLs;Independent with ambulation;Independent with [...] due to mobility deficits and lack of signal timer support. Pt would benefit from continued skilled [...] the discharge summary - PT Recommendation/Plan -- Halfway Facility - Patient at high risk for [...] the discharge summary - Recommendation/Plan PT Recommendation/Plan [facility]way Facility - [facility]way Facility - Patient at high risk for [...] 03/24/24 0700 - 03/25/24 0659 Total Total 6382-1955 1369-3610 2278-3547 Total 9021-9269 9121-7119 1560-3740 Total Intake (ml) -- -- -- -- [...] Bran, 59 y.o. female (: 1965) Room: [id number] ( ) LOS: 15 Farzana Bran is [...] , PTH , 25HYDROVITD , CPEPTIDE , CEF77TA , IA2AB Lab Results Component Value Date HGBA1C 8.9 (H) 03/11/2024 Assessment & Plan # Type 2 Diabetes Mellitus, Uncontrolled, complicated by Peripheral Neuropathy Current HbA1c and reliability: 8.9%, unreliable 2/2 anemia HbA1c goal based on comorbidities: <7% Diabetes Provider: PCP Insurance: Payor: [facility] / Plan: MEDICARE SOLUTIONS / Product Type: [facility] MEDICARE / Home regimen: Lantus 10 units [...] juices, no regular soda - please have special educator meet with patient - When NPO, [...] & Lipid Research Contact Info: New Consults: [phone]) General Endocrine (Non-Diabetes): [phone] (Check 'Treatment Team' assignment for Diabetes 1 vs 2 vs 3) Diabetes After-Hours & Weekends: Diabetes Fellow [phone] or [phone] * Plan of Care - Dilcia Torres RN - 03/23/2024 9:59 PM CDT Goals: Clinical Goals for the Shift: OOB, monitor Glucose, monitor VS, encourage IS Mcc Patient Centered Goal for Treatment: Mobility, Pain management Summary: Dilcia Torres RN * Consults, Subsequent - Shannon Mancilla MD - 03/23/2024 10:49 AM CDT Images from the original note were not included. Endocrinology & Diabetes Brief Note Patient: Farzana Bran, 59 y.o. female (: 1965) Room: [id number] ( ) LOS: 14 Interval Events & [...] & Lipid Research Contact Info: New Consults: [phone]) General Endocrine (Non-Diabetes): [phone] (Check 'Treatment Team' assignment for Diabetes 1 vs 2 vs 3) Diabetes After-Hours & Weekends: Diabetes Fellow [phone] or [phone] * Plan of Care - Chichi Mitchell - 03/22/2024 5:55 PM CDT Goals: Clinical Goals for the Shift: VSS, ambulate, pain management, wound care, monitor BSG Diagnostic Sales Specialist Patient Centered Goal for Treatment: Mobility, Pain [...] related to Diabetes will improve: Collaborate with hip hop dance instructor for diabetes evaluation and/or teaching Instruct on [...] Bran, 59 y.o. female (: 1965) Room: [id number] ( ) LOS: 13 Farzana Bran is [...] comorbidities: <7% Diabetes Provider: PCP Insurance: Payor: [facility] / Plan: MEDICARE SOLUTIONS / [...] & Lipid Research Contact Info: New Consults: [phone]) General Endocrine (Non-Diabetes): [phone] (Check 'Treatment Team' assignment for Diabetes 1 vs 2 vs 3) Diabetes After-Hours & Weekends: Diabetes Fellow [phone] or [phone] Cosigned by Shannon Mancilla MD at 03/22/2024 8:12 PM CDT * Plan of Care - Radha Campos RN - 03/21/2024 1:07 PM CDT Spoke to Chanell of admissions for [facility] ([phone] option [phone]). Chanell stated referral is currently being reviewed. Will follow. * Consults, Subsequent - Karuna Hurst NP - 03/21/2024 12:39 PM CDT Endocrinology & Diabetes Progress Note Patient: Farzana Bran, 59 y.o. female (: 1965) Room: [place] [id number] ( ) LOS: 12 Farzana Bran is [...] , PTH , 25HYDROVITD , CPEPTIDE , [id number] , IA2AB Lab Results Component Value Date HGBA1C 8.9 (H) 03/11/2024 Assessment & Plan # Type 2 Diabetes Mellitus, Uncontrolled, complicated by Peripheral Neuropathy Current HbA1c and reliability: 8.9%, unreliable 2/2 anemia HbA1c goal based on comorbidities: <7% Diabetes Provider: PCP Insurance: Payor: [employer] MEDICARE / Plan: MEDICARE SOLUTIONS / Product Type: [facility] MEDICARE / Home regimen: Lantus 10 units [...] juices, no regular soda - please have special educator meet with patient - When NPO, [...] & Lipid Research Contact Info: New Consults: [phone]) General Endocrine (Non-Diabetes): [phone] (Check 'Treatment Team' assignment for Diabetes 1 vs 2 vs 3) Diabetes After-Hours & Weekends: Diabetes Fellow [phone] or [phone] * Plan of Care - Radha Campos RN - 03/21/2024 9:36 AM CDT Per Rounds: Patient medically stable for discharge ADD: pending accepting facility and insurance authorizatoin Plan & referrals made/in place: Spoke to Chanell of admissions for [facility] ([phone]). Chanell requested additional documentation be faxed to her at [phone]. This was completed. Patient's Identified Problem/Goal Problem: Ensure acute medical needs are met and patient has a safe discharge plan. Goal: Secure a discharge plan that patient/family are agreeable with and ensure patient has continuum of care. Almond Huller will continue to follow and assist with discharge planning as needed * Plan of Care - Elizabeth Bell RN - 03/21/2024 3:46 AM CDT Goals: Clinical Goals for the Shift: Vital signs monitoring, pain control, safe in/out of bed Mcc Patient Centered Goal for Treatment: Mobility, Pain [...] Bran, 59 y.o. female (: 1965) Room: [place] [address] ( ) LOS: 11 Farzana Bran is [...] , PTH , 25HYDROVITD , CPEPTIDE , [id number] , IA2AB Lab Results Component Value Date HGBA1C 8.9 (H) 03/11/2024 Assessment & Plan # Type 2 Diabetes Mellitus, Uncontrolled, complicated by Peripheral Neuropathy Current HbA1c and reliability: 8.9%, unreliable 2/2 anemia HbA1c goal based on comorbidities: <7% Diabetes Provider: PCP Insurance: Payor: [facility] / Plan: MEDICARE SOLUTIONS / Product Type: [facility] MEDICARE / Home regimen: Lantus 10 units [...] juices, no regular soda - please have special educator meet with patient - When NPO, [...] & Lipid Research Contact Info: New Consults: [phone]) General Endocrine (Non-Diabetes): [phone] (Check 'Treatment Team' assignment for Diabetes 1 vs 2 vs 3) Diabetes After-Hours & Weekends: Diabetes Fellow [phone] or [phone] * ECIN Note - Radha Campos RN [...] Evolving Evolving Evolving -- -- Site Assessment Red;[place] Red;[facility] Red;[place] [facility] -- -- Natalie-wound Assessment Dry;Intact Dry;Intact Dry;Intact [...] Using -- None -EL -- Level of Canones -- Independent with ADLs;Independent functional transfers;Independent with ambulation -EL -- Lives With -- Alone -EL -- Receives Help From -- Friend(s) shoe parts caser assist available -EL -- ADL Assistance -- [...] Using None -SM -- -- Level of Canones Independent with ADLs;Independent with ambulation;Independent with homemakingwith [...] point due to mobilitydeficits and lack of signal timer support. Pt would benefit from continued skilled [...] discharge summary - -- -- PT Recommendation/Plan Halfway Facility -SM -- -- Patient at high [...] Recent Administrations acetaminophen (TYLENOL) tablet 1,000 mg [[id number]] Ordering Provider: Rosalio Calixto MD Status: Completed (Past End Date/Time) Ordered On: 03/08/241836 Starts/Ends: 03/08/241837 - 03/08/241855 Ordered Dose (Remaining/Total): 1,000 mg (0/1) Route: oral Frequency: Once Ordered Rate/Order Duration: -- / -- Timestamps Action Dose Route Other Information 03/08/241855 Given 1,000 mg oral Performed by: Brionna Pitt RN Scanned Package: 8652-2701-80, 9990-3222-76 droPERidol (INAPSINE) injection 1.25 mg [[id number]] Ordering Provider: Rosalio Calixto MD Status: Completed [...] Performed by: Brionna Pitt RN Scanned Package: 0408-7807-23 fentaNYL (SUBLIMAZE) preservative free injection 50 mcg [[id number]] Ordering Provider: Rosalio Calixto MD Status: Completed [...] Performed by: Brionna Pitt RN Scanned Package: 0298-1740-00 ioversoL (OPTIRAY 350) syringe 100 mL [[id number]] Ordering Provider: Rosalio Calixto MD Status: Completed [...] RT ioversoL (OPTIRAY 350) syringe 125 mL [[id number]] Ordering Provider: Rosalio Calixto MD Status: Completed [...] Hill RT gadoterate meglumine injection 14 mL [[id number]] Ordering Provider: Rosalio Calixto MD Status: Completed [...] (HumaLOG, ADMELOG) 100 unit/mL injection 4 Units [[id number]] Ordering Provider: Ho An MD Status: Completed (Past End Date/Time) Ordered On: 03/09/24332 Starts/Ends: 03/09/24 033 - 03/09/24342 Ordered Dose (Remaining/Total): 4 Units (0/1) Route: subcutaneous Frequency: Once Ordered Rate/Order Duration: -- / -- Timestamps Action Dose Route / Site Other Information 03/09/24342 Given 4 Units subcutaneous Left Lower Abdomen Performed by: Brionna Pitt RN Scanned Package: 9850-0227-88 droPERidol (INAPSINE) injection 1.25 mg [[id number]] Ordering Provider: Ho An MD Status: Completed [...] Performed by: Odilia Vega RN Scanned Package: 4749-5770-19 sodium chloride 0.9% flush 0.5-20 mL [[id number]] Ordering Provider: Ericka Estes MD Status: Verified Ordered On: 03/09/24608 Start: 03/09/24644 Ordered Dose (Remaining/Total): 0.5-20 mL (--/--) Route: intra-catheter Frequency: Every 8 hours scheduled Ordered Rate/Order Duration: -- / -- Admin Instructions: Flush volume based on line type and size. Timestamps Action Dose Route Other Information 03/19/242331 Given 20 mL intra-catheter Performed by: Rosana Mahoney RN sodium chloride 0.9% flush 0.5-20 mL [[id number]] Ordering Provider: Ericka Estes MD Status: Verified [...] Performed by: Janett Ledezma RN Scanned Package: [id number] Carrier Fluids for Secondary Infusion - 0.9% Sodium Chloride [[id number]] Ordering Provider: Ericka Estes MD Status: Dispensed [...] (1 %) preservative free injection 200 mg [[id number]] Ordering Provider: Varun Song MD Status: Completed (Past End Date/Time) Ordered On: 03/09/24 1240 Starts/Ends: 03/09/24 1315 - 03/09/24 1312 Ordered Dose (Remaining/Total): 20 mL (0/1) Route: infiltration Frequency: Once Ordered Rate/Order Duration: -- / -- Timestamps Action Dose Route Other Information 03/09/24 1312 Given 200 mg infiltration Performed by: Keyonna Hernandez RN HYDROmorphone (DILAUDID) injection 0.5 mg [[id number]] Ordering Provider: Varun Song MD Status: Completed [...] halo placement droPERidol (INAPSINE) injection 1.25 mg [[id number]] Ordering Provider: Varun Song MD Status: Dispensed (Past End Date/Time) Ordered On: 03/09/24 133 Starts/Ends: 03/09/24 141 - 03/10/24 1415 Ordered Dose (Remaining/Total): 1.25 mg (1/1) Route: intravenous Frequency: Once Ordered Rate/Order Duration: -- / -- Admin Instructions: If administered IV push, administer over 5 min for adults. (No admins scheduled or recorded for this medication) HYDROmorphone (DILAUDID) injection 0.5 mg [[id number]] Ordering Provider: Varun Song MD Status: Completed [...] halo placement methocarbamoL (ROBAXIN) tablet 500 mg [[id number]] Ordering Provider: Bernardino Gleason MD Status: Completed (Past End Date/Time) Ordered On: 03/09/242042 Starts/Ends: 03/09/242114 - 03/09/242122 Ordered Dose (Remaining/Total): 500 mg (0/1) Route: oral Frequency: Once Ordered Rate/Order Duration: -- / -- Timestamps Action Dose Route Other Information 03/09/242122 Given 500 mg oral Performed by: Haley Varner RN Scanned Package: 17961-178-51 magnesium sulfate 2 g/50 mL in water (premix) 2 g [[id number]] Ordering Provider: Bernardino Gleason MD Status: Completed (Past End Date/Time) Ordered On: 03/09/242134 Starts/Ends: 03/09/242214 - 03/09/242326 Ordered Dose (Remaining/Total): 2 g (0/1) Route: intravenous Frequency: Once Ordered Rate/Order Duration: -- / 60 Minutes Timestamps Action Dose / Duration Route Other Information 03/09/242226 New Bag 2 g 60 Minutes intravenous Performed by: Haley Varner RN Scanned Package: 35681-550-27 potassium chloride (KLOR-CON) packet 20 mEq [[id number]] Ordering Provider: Bernardino Gleason MD Status: Completed [...] Performed by: Haley Varner RN Scanned Package: [id number] HYDROmorphone (DILAUDID) injection 0.5 mg [[id number]] Ordering Provider: Bernardino Gleason MD Status: Completed (Past End Date/Time) Ordered On: 03/10/24 0507 Starts/Ends: 03/10/24 0545 - 03/10/24 0516 Ordered Dose (Remaining/Total): 0.5 mg (0/1) Route: intravenous Frequency: Once Ordered Rate/Order Duration: -- / 2 Minutes Timestamps Action Dose / Duration Route Other Information 03/10/24 0514 Given 0.5 mg 2 Minutes intravenous Performed by: Haley Varner RN Scanned Package: 04036-983-75 magnesium sulfate 2 g/50 mL in water (premix) 2 g [[id number]] Ordering Provider: Yunier Leach MD Status: Completed [...] Performed by: Darius Ghosh RN Scanned Package: 95107-709-83 potassium chloride (KLOR-CON) packet 40 mEq [[id number]] Ordering Provider: Yunier Leach MD Status: Completed [...] Performed by: Janett Ledezma RN Scanned Package: [address]-3, [address]-8 sodium chloride 0.9% bolus 1,000 mL [[id number]] Ordering Provider: Eloise Knapp MD Status: Completed [...] Performed by: Soco Schwarz RN Scanned Package: 9128-4594-82 magnesium sulfate 2 g/50 mL in water (premix) 2 g [[id number]] Ordering Provider: Jane Hoover MD Status: Completed (Past End Date/Time) Ordered On: 03/12/24 0132 Starts/Ends: 03/12/24 0215 - 03/12/24 0341 Ordered Dose (Remaining/Total): 2 g (0/1) Route: intravenous Frequency: Once Ordered Rate/Order Duration: -- / 60 Minutes Line Med Link Info Comment Peripheral IV 03/08/24 20 G Distal;Left;Posterior Forearm 03/12/24 0241 by aJnett Ledezma RN -- Timestamps Action Dose / Duration Route Other Information 03/12/24 0241 New Bag 2 g 60 Minutes intravenous Performed by: Janett Ledezma RN Scanned Package: 35677-020-14 senna-docusate (PERICOLACE) 8.6-50 mg per tablet 1 tablet [[id number]] Ordering Provider: Ericka Estes MD Status: Dispensed Ordered On: 03/12/24 0954 Start: 03/12/24 2100 Ordered Dose (Remaining/Total): 1 tablet (--/--) Route: oral Frequency: 2 times daily Ordered Rate/Order Duration: -- / -- Timestamps Action Dose Route Other Information 03/20/24 0821 Given 1 tablet oral Performed by: Maryuri Limon RN Scanned Package: 2434-7604-56, 5140-1198-09 lidocaine (PF) (XYLOCAINE) 10 mg/mL (1 %) preservative free injection 10-20 mg [[id number]] Ordering Provider: Jane Hoover MD Status: Completed [...] PICC sodium chloride 0.9% flush 5-10 mL [[id number]] Ordering Provider: Ericka Estes MD Status: Verified [...] JULISSA sodium chloride 0.9% flush 5-20 mL [[id number]] Ordering Provider: Ericka Estes MD Status: Verified Ordered On: 03/12/241831 Start: 03/12/241827 Ordered Dose (Remaining/Total): 5-20 mL (--/--) Route: intra-catheter Frequency: As needed Ordered Rate/Order Duration: -- / -- Admin Instructions: Flush volume based on line type, size, and protocol. (No admins scheduled or recorded for this medication) sodium chloride 0.9% flush 5-10 mL [[id number]] Ordering Provider: Ericka Estes MD Status: Verified [...] RN sodium chloride 0.9% flush 5-20 mL [[id number]] Ordering Provider: Ericka Estes MD Status: Verified Ordered On: 03/12/241831 Start: 03/12/24 183 Ordered Dose (Remaining/Total): 5-20 mL (--/--) Route: intra-catheter Frequency: As needed Ordered Rate/Order Duration: -- / -- Admin Instructions: Flush volume based on line type, size, and protocol. (No admins scheduled or recorded for this medication) acetaminophen (TYLENOL) tablet 1,000 mg [[id number]] Ordering Provider: Ericka Estes MD Status: Dispensed Ordered On: 03/13/241119 Start: 03/13/24 1200 Ordered Dose (Remaining/Total): 1,000 mg (--/--) Route: oral Frequency: Every 6 hours scheduled Ordered Rate/Order Duration: -- / -- Timestamps Action Dose Route Other Information 03/20/24 0548 Given 1,000 mg oral Performed by: Rosana Mahoney RN Scanned Package: 3677-1334-79, 8158-5294-18 magnesium sulfate 2 g/50 mL in water (premix) 2 g [[id number]] Ordering Provider: Johnny Corcoran MD Status: Completed (Past End Date/Time) Ordered On: 03/13/24 112 Starts/Ends: 03/13/24 1200 - 03/13/24 1306 Ordered Dose (Remaining/Total): 2 g (0/1) Route: intravenous Frequency: Once Ordered Rate/Order Duration: -- / 60 Minutes Timestamps Action Dose / Duration Route Other Information 03/13/24 1206 New Bag 2 g 60 Minutes intravenous Performed by: Kenyatta Dumont RN Scanned Package: 19094-613-28 ceFAZolin (ANCEF) 1 gram/10 mL in sterile water (premix) 1,000 mg [[id number]] Ordering Provider: Ericka Estes MD Status: Completed [...] RN miconazole (SECURA THICK) 2 % cream [[id number]] Ordering Provider: Linda Haile MD Status: Verified [...] 5 mg/mL injection - ADS Override Pull [[id number]] Status: Dispensed (Past End Date/Time) Ordered On: 03/14/24 0452 Starts/Ends: 03/14/24 0452 - 03/14/24 1659 Ordered Dose (Remaining/Total): -- (08/13) Route: -- Frequency: -- Ordered Rate/Order Duration: -- / -- Admin Instructions: Created by cabinet override Note to pharmacy: Created by cabinet override (No admins scheduled or recorded for this medication) linezolid (ZYVOX) tablet 600 mg [[id number]] Ordering Provider: Vince Allen MD Status: Completed (Past End Date/Time) Ordered On: 03/14/24 1155 Starts/Ends: 03/14/24 1230 - 03/14/24 2114 Ordered Dose (Remaining/Total): 600 mg (0/2) Route: oral Frequency: 2 times daily Ordered Rate/Order Duration: -- / -- Timestamps Action Dose Route Other Information 03/14/24 2114 Given 600 mg oral Performed by: June Guerrero RN Scanned Package: 19940-393-29 benzocaine-menthoL (CHLORASEPTIC) lozenge 1 lozenge [[id number]] Ordering Provider: Linda Haile MD Status: Dispensed Ordered On: 03/15/24436 Start: 03/15/24436 Ordered Dose (Remaining/Total): 1 lozenge (--/--) Route: mouth/throat Frequency: Every 3 hours PRN Ordered Rate/Order Duration: -- / -- Timestamps Action Dose Route Other Information 03/17/24 180 Given 1 lozenge mouth/throat Performed by: Liberty Taylor RN Scanned Package: [id number] dextrose gel in packet 15 g [[id number]] Ordering Provider: Linda Haile MD Status: Verified [...] medication) dextrose (D10W) 10% bolus 250 mL [[id number]] Ordering Provider: Linda Haile MD Status: Verified [...] hour post treatment. If BG is less gaqr680 mg/dL, repeat Q15 minute BG checks and treatment. Call MD for each episode of hypoglycemia. (No admins scheduled or recorded for this medication) glucagon injection 1 mg [[id number]] Ordering Provider: Linda Haile MD Status: Verified [...] (HumaLOG, ADMELOG) 100 unit/mL injection 0-10 Units [[id number]] Ordering Provider: Linda Haile MD Status: Dispensed [...] Performed by: Maryuri Limon RN Scanned Package: 1936-4828-61 insulin lispro (HumaLOG, ADMELOG) 100 unit/mL injection 0-5 Units [[id number]] Ordering Provider: Linda Haile MD Status: Dispensed [...] Performed by: Rosana Mahoney RN Scanned Package: 2298-5186-51 oxyCODONE (ROXICODONE) tablet 7.5 mg [[id number]] Ordering Provider: Vince Allen MD Status: Dispensed Ordered On: 03/17/24 1037 Start: 03/17/24 1036 Ordered Dose (Remaining/Total): 7.5 mg (--/--) Route: oral Frequency: Every 4 hours PRN Ordered Rate/Order Duration: -- / -- Timestamps Action Dose Route Other Information 03/20/24 0548 Given 7.5 mg oral Performed by: Rosana Mahoney RN Scanned Package: 53872-958-10 insulin lispro (HumaLOG, ADMELOG) 100 unit/mL injection 12 Units [[id number]] Ordering Provider: Vince Allen MD Status: Dispensed [...] Performed by: Maryuri Limon RN Scanned Package: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 Phone Number [facility] [place] [address] * (ABNORMAL) POCT glucose (04/03/2024 11:31 AM CDT) [facility] [address] Glucose, POC 205(H) 70 - 199 mg/dL Comment:Glu2: RN/MD Notified Glucose comment 1 Glu2: RN/MD Notified [facility] Blood 04/03/2024 11:3 1 AM CDT 04/03/2024 11:31 AM CDT Chadd Elias Tre DO LAB POCT ORDERABLES - DEVICE Final Result Performing Organization Address [facility] Co de Phone Number [facility] [place] [address] * (ABNORMAL) POCT glucose (04/03/2024 7:51 AM CDT) [facility] [address] Glucose, POC 202(H) 70 - 199 mg/dL Comment:Glu2: RN/MD Notified Glucose comment 1 Glu2: RN/MD Notified [facility] Blood 04/03/2024 7:51 AM CDT 04/03/2024 7:51 AM CDT Chadd Toledo DO LAB POCT ORDERABLES - DEVICE Final Result Performing Organization Address [facility] Co de Phone Number [facility] Department [place] [address] * Infection Prevention Sonya auris PCR, surveillance Axilla/Groin (04/03/2024 6:54 AM CDT) [facility] [address] Sonya auris DNA Not Detected Not Detected [facility] Comment: Interpretive Data Testing performed by [facility] using the Lights[employer] MDX Sonya auris assay. ??This assay detects DNA from Sonya auris using Real-Time PCR. ??This assay is laboratory developed and is not cleared by the [facility] Food and Drug Administration. ??The performance characteristics have been verified by the [facility]. Interpretive data was last reviewed on 12/05/2023 Axilla/Groin 04/03/2024 6:54 AM CDT 04/03/2024 7:34 AM CDT Francois Estrada MD LAB MICROBIOLOGY - GENERAL OR DERABLES Final Result Performing Organization Address [facility] Co de Phone Number [facility] Department [place] [address] [facility] * POCT glucose (04/03/2024 2:04 AM CDT) [facility] [address] Glucose, POC 158 70 - 199 mg/dL Blood 04/03/2024 2:04 AM CDT 04/03/2024 2:04 AM CDT us Chadd Toledo DO LAB POCT ORDERABLES - DEVICE Final Result Performing Organization Address [facility] Co de Phone Number [facility] [place] [address] * POCT glucose (04/02/2024 8:23 PM CDT) Glucose, POC 162 70 - 199 mg/dL Comment:Glu2: RN/MD Notified Glucose comment 1 Glu2: RN/MD Notified [facility] Blood 04/02/2024 8:23 PM CDT 04/02/2024 8:23 PM CDT us Chadd Toledo DO LAB POCT ORDERABLES - DEVICE Final Result Performing Organization Address [facility] Co de Phone Number [facility] [place] [address] * POCT glucose (04/02/2024 4:37 PM CDT) Glucose, POC 171 70 - 199 mg/dL Blood 04/02/2024 4:37 PM CDT 04/02/2024 4:37 PM CDT us Chadd Toledo DO LAB POCT ORDERABLES - DEVICE Final Result Performing Organization Address [facility] Co de Phone Number [facility] [place] [address] * POCT glucose (04/02/2024 12:24 PM CDT) Glucose, POC 160 70 - 199 mg/dL Blood 04/02/2024 12:2 4 PM CDT 04/02/2024 12:24 PM CDT us Chadd Toledo DO LAB POCT ORDERABLES - DEVICE Final Result Performing Organization Address [facility] [place] [address] * POCT glucose (04/02/2024 8:20 AM CDT) Glucose, POC 179 70 - 199 mg/dL Blood 04/02/2024 8:20 AM CDT 04/02/2024 8:20 AM CDT us Chadd Toledo DO LAB POCT ORDERABLES - DEVICE Final Result Performing Organization Address [facility] [place] [address] * POCT glucose (04/02/2024 2:36 AM CDT) Glucose, POC 148 70 - 199 mg/dL Blood 04/02/2024 2:36 AM CDT 04/02/2024 2:36 AM CDT us Chadd Toledo DO LAB POCT ORDERABLES - DEVICE Final Result Performing Organization Address [facility] [place] [address] * POCT glucose (04/01/2024 9:32 PM CDT) Glucose, POC 110 70 - 199 mg/dL Blood 04/01/2024 9:32 PM CDT 04/01/2024 9:32 PM CDT Chadd Toledo DO LAB POCT ORDERABLES - DEVICE Final Result Performing Organization Address City/[facility]/[place] [address] * POCT glucose (04/01/2024 4:28 PM CDT) Glucose, POC 128 70 - 199 mg/dL Blood 04/01/2024 4:28 PM CDT 04/01/2024 4:28 PM CDT Chadd Elias Tre DO LAB POCT ORDERABLES - DEVICE Final Result Performing Organization Address [facility] de Phone Number [facility] [place] [address] * (ABNORMAL) POCT glucose (04/01/2024 12:18 PM CDT) Glucose, POC 216(H) 70 - 199 mg/dL Blood 04/01/2024 12:1 8 PM CDT 04/01/2024 12:18 PM CDT Chadd Toledo DO LAB POCT ORDERABLES - DEVICE Final Result Performing Organization Address [facility] de Phone Number [facility] [place] [address] * POCT glucose (04/01/2024 8:01 AM CDT) Glucose, POC 176 70 - 199 mg/dL Blood 04/01/2024 8:01 AM CDT 04/01/2024 8:01 AM CDT Chadd Toledo DO LAB POCT ORDERABLES - DEVICE Final Result Performing Organization Address [facility] [place] [address] * POCT glucose (04/01/2024 2:06 AM CDT) Glucose, POC 178 70 - 199 mg/dL Blood 04/01/2024 2:06 AM CDT 04/01/2024 2:06 AM CDT Chadd Toledo DO LAB POCT ORDERABLES - DEVICE Final Result Performing Organization Address [facility] [place] [address] * POCT glucose (03/31/2024 8:48 PM CDT) Glucose, POC 128 70 - 199 mg/dL Blood 03/31/2024 8:48 PM CDT 03/31/2024 8:48 PM CDT Chadd Elias Tre DO LAB POCT ORDERABLES - DEVICE Final Result Performing Organization Address [facility] [place] [address] * POCT glucose (03/31/2024 4:17 PM CDT) Glucose, POC 139 70 - 199 mg/dL Blood 03/31/2024 4:17 PM CDT 03/31/2024 4:17 PM CDT Chadd Elias Tre DO LAB POCT ORDERABLES - DEVICE Final Result Performing Organization Address [facility] Co de Phone Number [facility] [place] [address] * POCT glucose (03/31/2024 12:25 PM CDT) Glucose, POC 169 70 - 199 mg/dL Blood 03/31/2024 12:2 5 PM CDT 03/31/2024 12:25 PM CDT Chadd Elias Tre DO LAB POCT ORDERABLES - DEVICE Final Result Performing Organization Address [facility] Co de Phone Number [facility] [place] [address] * POCT glucose (03/31/2024 9:00 AM CDT) Glucose, POC 179 70 - 199 mg/dL Blood 03/31/2024 9:00 AM CDT 03/31/2024 9:00 AM CDT Chadd Toledo DO LAB POCT ORDERABLES - DEVICE Final Result Performing Organization Address [facility] de Phone Number [facility] [place] [address] * Infection Prevention Sonya auris PCR, surveillance Axilla/Groin (03/31/2024 6:44 AM CDT) [facility] [address] Sonya auris DNA Not Detected Not Detected [facility] Comment: Interpretive Data Testing performed by [facility] using the Lights[employer] MDX Sonya auris assay. ??This assay detects DNA from Sonya auris using Real-Time PCR. ??This assay is laboratory developed and is not cleared by the [facility] Food and Drug Administration. ??The performance characteristics have been verified by the [facility]. Interpretive data was last reviewed on 12/05/2023 Axilla/Groin 03/31/2024 6:44 AM CDT 03/31/2024 7:34 AM CDT Francois Estrada MD LAB MICROBIOLOGY - GENERAL OR DERABLES Final Result Performing Organization Address [facility] de Phone Number [facility] Department [place] [address] [facility] * POCT glucose (03/31/2024 1:48 AM CDT) Glucose, POC 179 70 - 199 mg/dL Blood 03/31/2024 1:48 AM CDT 03/31/2024 1:48 AM CDT Chadd Toledo DO LAB POCT ORDERABLES - DEVICE Final Result Performing Organization Address [facility] Co de Phone Number [facility] [place] [address] * POCT glucose (03/30/2024 8:22 PM CDT) Glucose, POC 119 70 - 199 mg/dL Blood 03/30/2024 8:22 PM CDT 03/30/2024 8:22 PM CDT us Chadd Toledo DO LAB POCT ORDERABLES - DEVICE Final Result Performing Organization Address [facility] Co de Phone Number [facility] [place] [address] * POCT glucose (03/30/2024 5:54 PM CDT) Glucose, POC 153 70 - 199 mg/dL Blood 03/30/2024 5:54 PM CDT 03/30/2024 5:54 PM CDT Chadd Toledo DO LAB POCT ORDERABLES - DEVICE Final Result Performing Organization Address [facility] de Phone Number [facility] Department [place] [address] * (ABNORMAL) POCT glucose (03/30/2024 12:15 PM CDT) Glucose, POC 213(H) 70 - 199 mg/dL Comment:Glu2: RN/MD Notified Glucose comment 1 Glu2: RN/MD Notified [facility] Blood 03/30/2024 12:1 5 PM CDT 03/30/2024 12:15 PM CDT Chadd Toledo DO LAB POCT ORDERABLES - DEVICE Final Result Performing Organization Address [facility] Co de Phone Number [facility] Department [place] [address] * POCT glucose (03/30/2024 8:04 AM CDT) Glucose, POC 145 70 - 199 mg/dL Blood 03/30/2024 8:04 AM CDT 03/30/2024 8:04 AM CDT us Chadd Toledo DO LAB POCT ORDERABLES - DEVICE Final Result Performing Organization Address City/[facility]/ZIP Co [place] [address] * (ABNORMAL) POCT glucose (03/30/2024 3:03 AM CDT) Glucose, POC 200(H) 70 - 199 mg/dL Blood 03/30/2024 3:03 AM CDT 03/30/2024 3:03 AM CDT Chadd Toledo DO LAB POCT ORDERABLES - DEVICE Final Result Performing Organization Address City/[facility]/ZIP Co de Phone Number [facility] [address] * POCT glucose (03/29/2024 8:48 PM CDT) Glucose, POC 142 70 - 199 mg/dL Blood 03/29/2024 8:48 PM CDT 03/29/2024 8:48 PM CDT Chadd Toledo DO LAB POCT ORDERABLES - DEVICE Final Result Performing Organization Address [facility]/ZIP [place] [address] * (ABNORMAL) POCT glucose (03/29/2024 4:48 PM CDT) Glucose, POC 226(H) 70 - 199 mg/dL Comment:Glu2: RN/ Notified Glucose comment 1 Glu2: RN/ Notified [facility] Blood 03/29/2024 4:48 PM CDT 03/29/2024 4:48 PM CDT Chadd Toledo DO LAB POCT ORDERABLES - DEVICE Final Result Performing Organization Address [facility] de Phone Number [facility] [place] [address] * POCT glucose (03/29/2024 11:41 AM CDT) Glucose, POC 161 70 - 199 mg/dL Blood 03/29/2024 11:4 1 AM CDT 03/29/2024 11:41 AM CDT Chadd Elias Tre DO LAB POCT ORDERABLES - DEVICE Final Result Performing Organization Address [facility] de Phone Number [facility] [place] [address] * (ABNORMAL) POCT glucose (03/29/2024 7:45 AM CDT) Glucose, POC 250(H) 70 - 199 mg/dL Comment:Glu2: RN/ Notified Glucose comment 1 Glu2: RN/ Notified [facility] Blood 03/29/2024 7:45 AM CDT 03/29/2024 7:45 AM CDT Chadd Elias Tre DO LAB POCT ORDERABLES - DEVICE Final Result Performing Organization Address [facility] [place] [address] * POCT glucose (03/29/2024 2:45 AM CDT) Glucose, POC 175 70 - 199 mg/dL Blood 03/29/2024 2:45 AM CDT 03/29/2024 2:45 AM CDT Chadd Toledo DO LAB POCT ORDERABLES - DEVICE Final Result Performing Organization Address [facility] de Phone Number [facility] [place] [address] * (ABNORMAL) POCT glucose (03/28/2024 9:03 PM CDT) Glucose, POC 333(H) 70 - 199 mg/dL Blood 03/28/2024 9:03 PM CDT 03/28/2024 9:03 PM CDT Chadd Toledo DO LAB POCT ORDERABLES - DEVICE Final Result Performing Organization Address [facility] de Phone Number [facility] [place] [address] * POCT glucose (03/28/2024 5:10 PM CDT) Glucose, POC 119 70 - 199 mg/dL Blood 03/28/2024 5:10 PM CDT 03/28/2024 5:10 PM CDT Chadd Toledo DO LAB POCT ORDERABLES - DEVICE Final Result Performing Organization Address [facility] [place] [address] * POCT glucose (03/28/2024 12:03 PM CDT) Glucose, POC 171 70 - 199 mg/dL Blood 03/28/2024 12:0 3 PM CDT 03/28/2024 12:03 PM CDT Chadd Elias Craft DO LAB POCT ORDERABLES - DEVICE Final Result Performing Organization Address City/[facility] Co de Phone Number AJIT [facility] [place] [address] * (ABNORMAL) POCT glucose (03/28/2024 8:04 AM CDT) Glucose, POC 201(H) 70 - 199 mg/dL Blood 03/28/2024 8:04 AM CDT 03/28/2024 8:04 AM CDT Chadd Toledo DO LAB POCT ORDERABLES - DEVICE Final Result Performing Organization Address [facility] Co de Phone Number AJIT [facility] [place] [address] * (ABNORMAL) POCT glucose (03/27/2024 8:03 PM CDT) Glucose, POC 245(H) 70 - 199 mg/dL Blood 03/27/2024 8:03 PM CDT 03/27/2024 8:03 PM CDT Chadd Toledo DO LAB POCT ORDERABLES - DEVICE Final Result Performing Organization Address [facility] Co de Phone Number [facility] [place] [address] * POCT glucose (03/27/2024 4:14 PM CDT) Glucose, POC 173 70 - 199 mg/dL Blood 03/27/2024 4:14 PM CDT 03/27/2024 4:14 PM CDT Chadd Toledo DO LAB POCT ORDERABLES - DEVICE Final Result Performing Organization Address City/[facility]/ZIP Co de Phone Number JAIT [facility] [place] [address] * POCT glucose (03/27/2024 12:21 PM CDT) Glucose, POC 106 70 - 199 mg/dL Blood 03/27/2024 12:2 1 PM CDT 03/27/2024 12:21 PM CDT Chadd Toledo DO LAB POCT ORDERABLES - DEVICE Final Result Performing Organization Address City/[facility] Co de Phone Number [facility] [place] [address] * (ABNORMAL) POCT glucose (03/27/2024 7:48 AM CDT) Glucose, POC 229(H) 70 - 199 mg/dL Blood 03/27/2024 7:48 AM CDT 03/27/2024 7:48 AM CDT Chadd Toledo DO LAB POCT ORDERABLES - DEVICE Final Result Performing Organization Address [facility] Co de Phone Number [facility] [place] [address] * (ABNORMAL) POCT glucose (03/26/2024 8:55 PM CDT) Glucose, POC 211(H) 70 - 199 mg/dL Blood 03/26/2024 8:55 PM CDT 03/26/2024 8:55 PM CDT Chadd Toledo DO LAB POCT ORDERABLES - DEVICE Final Result Performing Organization Address [facility] Co de Phone Number [facility] [place] [address] * POCT glucose (03/26/2024 5:31 PM CDT) Glucose, POC 138 70 - 199 mg/dL Blood 03/26/2024 5:31 PM CDT 03/26/2024 5:31 PM CDT Chadd Toledo DO LAB POCT ORDERABLES - DEVICE Final Result Performing Organization Address [facility] de Phone Number [facility] [place] [address] * POCT glucose (03/26/2024 11:43 AM CDT) Glucose, POC 186 70 - 199 mg/dL Blood 03/26/2024 11:4 3 AM CDT 03/26/2024 11:43 AM CDT Chadd Toledo DO LAB POCT ORDERABLES - DEVICE Final Result Performing Organization Address [facility] de Phone Number [facility] [place] [address] * POCT glucose (03/26/2024 8:00 AM CDT) Glucose, POC 183 70 - 199 mg/dL Blood 03/26/2024 8:00 AM CDT 03/26/2024 8:00 AM CDT Chadd Toledo DO LAB POCT ORDERABLES - DEVICE Final Result Performing Organization Address [facility] de Phone Number [facility] [place] [address] * (ABNORMAL) POCT glucose (03/25/2024 7:53 PM CDT) Glucose, POC 206(H) 70 - 199 mg/dL Blood 03/25/2024 7:53 PM CDT 03/25/2024 7:53 PM CDT Chadd Toledo DO LAB POCT ORDERABLES - DEVICE Final Result Performing Organization Address City/[facility] Co de Phone Number [facility] [place] [address] * POCT glucose (03/25/2024 4:53 PM CDT) Glucose, POC 143 70 - 199 mg/dL Blood 03/25/2024 4:53 PM CDT 03/25/2024 4:53 PM CDT Chadd Toledo DO LAB POCT ORDERABLES - DEVICE Final Result Performing Organization Address [facility] [place] [address] * POCT glucose (03/25/2024 11:50 AM CDT) Glucose, POC 178 70 - 199 mg/dL Blood 03/25/2024 11:5 0 AM CDT 03/25/2024 11:50 AM CDT Chadd Toledo DO LAB POCT ORDERABLES - DEVICE Final Result Performing Organization Address [facility] Co de Phone Number [facility] [place] [address] * (ABNORMAL) POCT glucose (03/25/2024 7:54 AM CDT) Glucose, POC 269(H) 70 - 199 mg/dL Blood 03/25/2024 7:54 AM CDT 03/25/2024 7:54 AM CDT Chadd Toledo DO LAB POCT ORDERABLES - DEVICE Final Result Performing Organization Address City/[facility] Co de Phone Number [facility] [place] [address] * (ABNORMAL) POCT glucose (03/24/2024 8:53 PM CDT) Glucose, POC 304(H) 70 - 199 mg/dL Blood 03/24/2024 8:53 PM CDT 03/24/2024 8:53 PM CDT Chadd Toledo DO LAB POCT ORDERABLES - DEVICE Final Result Performing Organization Address [facility] Co de Phone Number [facility] [place] [address] * (ABNORMAL) POCT glucose (03/24/2024 5:03 PM CDT) Glucose, POC 249(H) 70 - 199 mg/dL Blood 03/24/2024 5:03 PM CDT 03/24/2024 5:03 PM CDT Chadd Toledo LAB POCT ORDERABLES - DEVICE Final Result Performing Organization Address [facility] de Phone Number [facility] [place] [address] * (ABNORMAL) POCT glucose (03/24/2024 11:52 AM CDT) Glucose, POC 218(H) 70 - 199 mg/dL Blood 03/24/2024 11:5 2 AM CDT 03/24/2024 11:52 AM CDT Chadd Toledo DO LAB POCT ORDERABLES - DEVICE Final Result Performing Organization Address [facility] Co de Phone Number [facility] [place] [address] * (ABNORMAL) POCT glucose (03/24/2024 8:29 AM CDT) Glucose, POC 251(H) 70 - 199 mg/dL Blood 03/24/2024 8:29 AM CDT 03/24/2024 8:29 AM CDT Chadd Toledo DO LAB POCT ORDERABLES - DEVICE Final Result Performing Organization Address [facility] Co de Phone Number [facility] [place] [address] * (ABNORMAL) POCT glucose (03/23/2024 9:17 PM CDT) Glucose, POC 203(H) 70 - 199 mg/dL Blood 03/23/2024 9:17 PM CDT 03/23/2024 9:17 PM CDT Chadd Toledo DO LAB POCT ORDERABLES - DEVICE Final Result Performing Organization Address [facility] de Phone Number [facility] [place] [address] * (ABNORMAL) POCT glucose (03/23/2024 7:46 PM CDT) Glucose, POC 215(H) 70 - 199 mg/dL Blood 03/23/2024 7:46 PM CDT 03/23/2024 7:46 PM CDT Result [facility] Chadd Toledo DO LAB POCT ORDERABLES - DEVICE Final Result Performing Organization Address [facility] de Phone Number [facility] [place] [address] * (ABNORMAL) POCT glucose (03/23/2024 4:51 PM CDT) Glucose, POC 245(H) 70 - 199 mg/dL Blood 03/23/2024 4:51 PM CDT 03/23/2024 4:51 PM CDT Chadd Toledo DO LAB POCT ORDERABLES - DEVICE Final Result Performing Organization Address [facility] Co de Phone Number [facility] [place] [address] * (ABNORMAL) POCT glucose (03/23/2024 11:00 AM CDT) Glucose, POC 232(H) 70 - 199 mg/dL Blood 03/23/2024 11:0 0 AM CDT 03/23/2024 11:00 AM CDT Chadd Toledo DO LAB POCT ORDERABLES - DEVICE Final Result Performing Organization Address [facility] Co de Phone Number [facility] [place] [address] * (ABNORMAL) POCT glucose (03/23/2024 8:24 AM CDT) Glucose, POC 297(H) 70 - 199 mg/dL Blood 03/23/2024 8:24 AM CDT 03/23/2024 8:24 AM CDT Chadd Toledo DO LAB POCT ORDERABLES - DEVICE Final Result Performing Organization Address [facility] Co de Phone [facility] [place] [address] * (ABNORMAL) POCT glucose (03/22/2024 7:48 PM CDT) Glucose, POC 290(H) 70 - 199 mg/dL Blood 03/22/2024 7:48 PM CDT 03/22/2024 7:48 PM CDT Chadd Toledo DO LAB POCT ORDERABLES - DEVICE Final Result Performing Organization Address City/[facility] Co de Phone Number [facility] [place] [address] * (ABNORMAL) POCT glucose (03/22/2024 4:50 PM CDT) Glucose, POC 248(H) 70 - 199 mg/dL Blood 03/22/2024 4:50 PM CDT 03/22/2024 4:50 PM CDT Chadd Toledo DO LAB POCT ORDERABLES - DEVICE Final Result Performing Organization Address City/[facility] [place] [address] * (ABNORMAL) POCT glucose (03/22/2024 12:10 PM CDT) Glucose, POC 204(H) 70 - 199 mg/dL Blood 03/22/2024 12:1 0 PM CDT 03/22/2024 12:10 PM CDT Chadd Toledo DO LAB POCT ORDERABLES - DEVICE Final Result Performing Organization Address [facility] [place] [address] * (ABNORMAL) POCT glucose (03/22/2024 8:17 AM CDT) Glucose, POC 218(H) 70 - 199 mg/dL Blood 03/22/2024 8:17 AM CDT 03/22/2024 8:17 AM CDT Chadd Toledo DO LAB POCT ORDERABLES - DEVICE Final Result Performing Organization Address City/[facility] Co de Phone Number [facility] [place] [address] * POCT glucose (03/21/2024 8:44 PM CDT) Glucose, POC 175 70 - 199 mg/dL Blood 03/21/2024 8:44 PM CDT 03/21/2024 8:44 PM CDT Chadd Toledo DO LAB POCT ORDERABLES - DEVICE Final Result Performing Organization Address [facility] de Phone Number [facility] [place] [address] * POCT glucose (03/21/2024 5:01 PM CDT) Glucose, POC 172 70 - 199 mg/dL Blood 03/21/2024 5:01 PM CDT 03/21/2024 5:01 PM CDT Chadd Toledo DO LAB POCT ORDERABLES - DEVICE Final Result Performing Organization Address [facility] de Phone Number [facility] [place] [address] * (ABNORMAL) POCT glucose (03/21/2024 11:33 AM CDT) Glucose, POC 221(H) 70 - 199 mg/dL Blood 03/21/2024 11:3 3 AM CDT 03/21/2024 11:33 AM CDT Chadd Toledo DO LAB POCT ORDERABLES - DEVICE Final Result Performing Organization Address [facility] de Phone Number [facility] [place] [address] * (ABNORMAL) POCT glucose (03/21/2024 7:54 AM CDT) Glucose, POC 208(H) 70 - 199 mg/dL Blood 03/21/2024 7:54 AM CDT 03/21/2024 7:54 AM CDT Chaddtorres Griffin Efetorres DO LAB POCT ORDERABLES - DEVICE Final Result Performing Organization Address [facility] Co de Phone Number [facility] [place] [address] * (ABNORMAL) POCT glucose (03/20/2024 8:02 PM CDT) Glucose, POC 212(H) 70 - 199 mg/dL Blood 03/20/2024 8:02 PM CDT 03/20/2024 8:02 PM CDT Chaddtorres Griffin Efetorres DO LAB POCT ORDERABLES - DEVICE Final Result Performing Organization Address [facility] de Phone Number [facility]IT [facility] [place] [address] * POCT glucose (03/20/2024 4:48 PM CDT) Glucose, POC 156 70 - 199 mg/dL Blood 03/20/2024 4:48 PM CDT 03/20/2024 4:48 PM CDT Chadd Elias Tre DO LAB POCT ORDERABLES - DEVICE Final Result Performing Organization Address [facility] de Phone Number [facility]IT [facility] Department [place] [address] * (ABNORMAL) POCT glucose (03/20/2024 12:11 PM CDT) Glucose, POC 223(H) 70 - 199 mg/dL Blood 03/20/2024 12:1 1 PM CDT 03/20/2024 12:11 PM CDT Chadd Toledo DO LAB POCT ORDERABLES - DEVICE Final Result Performing Organization Address [facility] Co de Phone Number [facility]IT [facility] Department [place] [address] * POCT glucose (03/20/2024 7:21 AM CDT) Glucose, POC 195 70 - 199 mg/dL Blood 03/20/2024 7:21 AM CDT 03/20/2024 7:21 AM CDT Chadd Toledo DO LAB POCT ORDERABLES - DEVICE Final Result [facility]IT [facility] Department [place] [address] * eGFR (03/19/2024 11:12 PM CDT) eGFR [...] DO LAB BLOOD ORDERABLES Final Result [facility] Department [place] [address] * (ABNORMAL) CBC without differential (03/19/2024 11:12 PM CDT) WBC 4.9 3.8 - 9.9 K/cumm Hgb 9.8(L) 11.9 - 15.5 g/dL [facility] Hct 29.7(L) 35.6 - 45.5 % [facility] Plt 173 150 - 400 K/cumm [facility] MPV 8.7(L) 9.1 - 12.3 fL [facility] RBC 3.46(L) 3.90 - 5.20 M/cumm [facility] MCV 85.8 81.3 - 96.4 fL [facility] MCH 28.3 27.1 - 33.3 pg [facility] MCHC 33.0 32.3 - 35.7 g/dL [facility] RDW CV 15.9(H) 11.1 - 14.9 % [facility] RDW SD 47.0 35.7 - 48.1 fL [facility] NRBC abs 0.00 0.00 - 0.01 K/cumm [facility] Blood 03/19/2024 11:1 2 PM CDT 03/20/2024 12:05 AM CDT Chadd Toledo DO LAB BLOOD ORDERABLES Final Result [facility] Department [place] [address] * Phosphorus (03/19/2024 11:12 PM CDT) Phosphorus, pl 3.4 2.3 - 4.5 mg/dL Blood 03/19/2024 11:1 2 PM CDT 03/20/2024 12:05 AM CDT Chadd Toledo DO LAB BLOOD ORDERABLES Final Result Performing Organization Address City/State/[facility] Co de Phone Number [facility] [place] [address] * Magnesium (03/19/2024 11:12 PM CDT) Pathologist [facility] Magnesium 1.8 1.4 - 2.5 mg/dL Blood 03/19/2024 11:1 2 PM CDT 03/20/2024 12:05 AM CDT Chadd Toledo DO LAB BLOOD ORDERABLES Final Result Performing Organization Address [facility] de Phone Number [facility] [place] [address] * (ABNORMAL) Basic metabolic panel (03/19/2024 11:12 PM CDT) Pathologist [facility] Sodium 138 135 - 145 mmol/L Potassium, pl 3.8 3.3 - 4.9 mmol/L [facility] Chloride 102 97 - 110 mmol/L [facility] CO2 28 22 - 32 mmol/L [facility] Anion gap 8 2 - 15 mmol/L [facility] BUN 15 6 - 25 mg/dL [facility] Creatinine 0.71 0.60 - 1.10 mg/dL [facility] Glucose 201(H) 70 - 199 mg/dL [facility] Comment: Interpretive Data Fasting glucose >/= [...] 2022. Calcium 8.7 8.5 - 10.3 mg/dL [facility] Blood 03/19/2024 11:1 2 PM CDT 03/20/2024 12:05 AM CDT Chadd Toledo DO LAB BLOOD ORDERABLES Final Result Performing Organization Address [facility] Co de Phone Number [facility] [place] [address] * POCT glucose (03/19/2024 7:45 PM CDT) Glucose, POC 146 70 - 199 mg/dL Blood 03/19/2024 7:45 PM CDT 03/19/2024 7:45 PM CDT Chadd Toledo DO LAB POCT ORDERABLES - DEVICE Final Result Performing Organization Address [facility] de Phone Number [facility] [place] [address] * POCT glucose (03/19/2024 4:53 PM CDT) Glucose, POC 151 70 - 199 mg/dL Blood 03/19/2024 4:53 PM CDT 03/19/2024 4:53 PM CDT Chadd Toledo DO LAB POCT ORDERABLES - DEVICE Final Result Performing Organization Address [facility] de Phone Number [facility] [place] [address] * (ABNORMAL) POCT glucose (03/19/2024 11:59 AM CDT) Glucose, POC 204(H) 70 - 199 mg/dL Blood 03/19/2024 11:5 9 AM CDT 03/19/2024 11:59 AM CDT Chaddtorres Toledo DO LAB POCT ORDERABLES - DEVICE Final Result Performing Organization Address City/[facility] Co de Phone Number [facility] [place] [address] * (ABNORMAL) POCT glucose (03/19/2024 7:42 AM CDT) Glucose, POC 229(H) 70 - 199 mg/dL Blood 03/19/2024 7:42 AM CDT 03/19/2024 7:42 AM CDT Chadd Toledo DO LAB POCT ORDERABLES - DEVICE Final Result Performing Organization Address [facility] de Phone Number [facility] [place] [address] * eGFR (03/18/2024 10:07 PM CDT) eGFR [...] Toledo DO LAB BLOOD ORDERABLES Final Result [facility] Department [place] [address] * (ABNORMAL) CBC without differential (03/18/2024 10:07 PM CDT) WBC 4.3 3.8 - 9.9 K/cumm Hgb 9.9(L) 11.9 - 15.5 g/dL [facility] Hct 30.2(L) 35.6 - 45.5 % [facility] Plt 147(L) 150 - 400 K/cumm [facility] MPV 8.3(L) 9.1 - 12.3 fL [facility] RBC 3.54(L) 3.90 - 5.20 M/cumm [facility] MCV 85.3 81.3 - 96.4 fL [facility] MCH 28.0 27.1 - 33.3 pg [facility] MCHC 32.8 32.3 - 35.7 g/dL [facility] RDW CV 15.7(H) 11.1 - 14.9 % [facility] RDW SD 46.8 35.7 - 48.1 fL [facility] NRBC abs 0.00 0.00 - 0.01 K/cumm [facility] Blood 03/18/2024 10:0 7 PM CDT 03/18/2024 10:38 PM CDT us Chadd Toledo DO LAB BLOOD ORDERABLES Final Result [facility] [place] [address] * Phosphorus (03/18/2024 10:07 PM CDT) [facility] [address] Phosphorus, pl 2.9 2.3 - 4.5 mg/dL Blood 03/18/2024 10:0 7 PM CDT 03/18/2024 10:39 PM CDT Chadd Toledo DO LAB BLOOD ORDERABLES Final Result Performing Organization Address [facility] Co de Phone Number [facility] [place] [address] * Magnesium (03/18/2024 10:07 PM CDT) [facility] [address] Magnesium 1.8 1.4 - 2.5 mg/dL Blood 03/18/2024 10:0 7 PM CDT 03/18/2024 10:39 PM CDT Chadd Toledo DO LAB BLOOD ORDERABLES Final Result Performing Organization Address [facility] Co de Phone Number [facility] [place] [address] * (ABNORMAL) Basic metabolic panel (03/18/2024 10:07 PM CDT) [facility] [address] Sodium 137 135 - 145 mmol/L Potassium, pl 3.9 3.3 - 4.9 mmol/L [facility] Chloride 100 97 - 110 mmol/L [facility] CO2 29 22 - 32 mmol/L [facility] Anion gap 8 2 - 15 mmol/L [facility] BUN 12 6 - 25 mg/dL [facility] Creatinine 0.64 0.60 - 1.10 mg/dL [facility] Glucose 210(H) 70 - 199 mg/dL [facility] Comment: Interpretive Data Fasting glucose >/= [...] 2022. Calcium 8.9 8.5 - 10.3 mg/dL [facility] Blood 03/18/2024 10:0 7 PM CDT 03/18/2024 10:39 PM CDT Chadd Toledo DO LAB BLOOD ORDERABLES Final Result Performing Organization Address [facility] Co de Phone Number [facility] Department [place] [address] * (ABNORMAL) POCT glucose (03/18/2024 8:40 PM CDT) Glucose, POC 236(H) 70 - 199 mg/dL Blood 03/18/2024 8:40 PM CDT 03/18/2024 8:40 PM CDT Chadd Toledo DO LAB POCT ORDERABLES - DEVICE Final Result Performing Organization Address [facility] Co de Phone Number [facility] [place] [address] * POCT glucose (03/18/2024 4:49 PM CDT) Glucose, POC 146 70 - 199 mg/dL Blood 03/18/2024 4:49 PM CDT 03/18/2024 4:49 PM CDT Chadd Toledo DO LAB POCT ORDERABLES - DEVICE Final Result Performing Organization Address [facility] de Phone Number [facility] Department [place] [address] * (ABNORMAL) POCT glucose (03/18/2024 11:55 AM CDT) Glucose, POC 247(H) 70 - 199 mg/dL Blood 03/18/2024 11:5 5 AM CDT 03/18/2024 11:55 AM CDT us Chadd Toledo DO LAB POCT ORDERABLES - DEVICE Final Result Performing Organization Address City/[facility]/ZIP Co de Phone Number [facility] [place] [address] * Osmolality, blood (03/18/2024 9:52 AM CDT) Pathologist [facility] Osmo 296 275 - 300 mOsm/kg Blood 03/18/2024 9:52 AM CDT 03/18/2024 10:02 AM CDT us Xochitl Esqu[facility] LAB BLOOD ORDERABLES F inal Result Performing Organization Address [facility] Co de Phone Number [facility] [place] [address] * Sodium, urine, random (03/18/2024 9:52 AM CDT) Pathologist [facility] Sodium, ur 54 mmol/L Comment: Interpretive Data No reference range established. Current interpretive data was last revised 2018. Urine 03/18/2024 9:52 AM CDT 03/18/2024 10:02 AM CDT us Xochitl Esquivel [facility] LAB URINE ORDERABLES F inal Result Performing Organization Address City/[facility]/ZIP Co de Phone Number AJIT [facility] [place] [address] * Creatinine, urine, random (03/18/2024 9:52 AM CDT) Creatinine Ur 15.0 mg/dL Comment: Interpretive Data No reference range established. Current interpretive data was last revised 2018. Urine 03/18/2024 9:52 AM CDT 03/18/2024 10:02 AM CDT Xochitl Esquivel HOSPICE HOME HEALTH AIDE LAB URINE ORDERABLES F inal Result Performing Organization Address [facility] Co de Phone Number [facility] Department [place] [address] * Osmolality, urine (03/18/2024 9:52 AM CDT) Pathologist [facility] Osmo, ur 221 mOsm/kg Urine 03/18/2024 9:52 AM CDT 03/18/2024 10:02 AM CDT us Xochitl Esquivel HOSPICE HOME HEALTH AIDE LAB URINE ORDERABLES F inal Result Performing Organization Address [facility] de Phone Number [facility] Department [place] [address] * (ABNORMAL) POCT glucose (03/18/2024 7:56 AM CDT) [facility] [address] Glucose, POC 218(H) 70 - 199 mg/dL Blood 03/18/2024 7:56 AM CDT 03/18/2024 7:56 AM CDT us Chadd Toledo DO LAB POCT ORDERABLES - DEVICE Final Result Performing Organization Address [facility] de Phone Number [facility] [place] [address] * Lidocaine level (03/18/2024 5:50 AM CDT) Pathologist [facility] Lidocaine (Xylocaine) 3.1 1.5 - 5.0 mcg/mL Blood 03/18/2024 5:50 AM CDT 03/18/2024 6:18 AM CDT Narrative AJIT [facility]ONT[facility]OT - 03/18/2024 6:47 AM CDT Draw 24 hours after infusion started. Chadd Toledo DO LAB BLOOD ORDERABLES Final Result AJIT TRAN [facility] Department [place] [address] * eGFR (03/17/2024 11:15 PM CDT) eGFR [...] BLOOD ORDERABLES Final Result Performing Organization Address [facility] de Phone Number [facility] [place] [address] * (ABNORMAL) CBC without differential (03/17/2024 11:15 PM CDT) [facility] [address] WBC 3.9 3.8 - 9.9 K/cumm Hgb 9.7(L) 11.9 - 15.5 g/dL [facility] Hct 29.7(L) 35.6 - 45.5 % [facility] Plt 150 150 - 400 K/cumm [facility] MPV 8.6(L) 9.1 - 12.3 fL [facility] RBC 3.48(L) 3.90 - 5.20 M/cumm [facility] MCV 85.3 81.3 - 96.4 fL [facility] MCH 27.9 27.1 - 33.3 pg [facility] MCHC 32.7 32.3 - 35.7 g/dL [facility] RDW CV 15.6(H) 11.1 - 14.9 % [facility] RDW SD 46.0 35.7 - 48.1 fL [facility] NRBC abs 0.00 0.00 - 0.01 K/cumm [facility] Blood 03/17/2024 11:1 5 PM CDT 03/18/2024 12:34 AM CDT Chadd Toledo DO LAB BLOOD ORDERABLES Final Result Performing Organization Address [facility] Co de Phone Number [facility] Department [place] [address] * Phosphorus (03/17/2024 11:15 PM CDT) [facility] [address] Phosphorus, pl 2.9 2.3 - 4.5 mg/dL Blood 03/17/2024 11:1 5 PM CDT 03/18/2024 12:35 AM CDT Chadd Toledo DO LAB BLOOD ORDERABLES Final Result Performing Organization Address City/[facility]/ZIP Co de Phone Number AJIT [facility] [place] [address] * Magnesium (03/17/2024 11:15 PM CDT) [facility] [address] Magnesium 1.8 1.4 - 2.5 mg/dL Blood 03/17/2024 11:1 5 PM CDT 03/18/2024 12:35 AM CDT Chadd Toledo LAB BLOOD ORDERABLES Final Result Performing Organization Address [facility] de Phone Number AJIT [facility] [place] [address] * Basic metabolic panel (03/17/2024 11:15 PM CDT) [facility] [address] Sodium 137 135 - 145 mmol/L Potassium, pl 3.9 3.3 - 4.9 mmol/L [facility] Chloride 100 97 - 110 mmol/L [facility] CO2 30 22 - 32 mmol/L [facility] Anion gap 7 2 - 15 mmol/L [facility] BUN 12 6 - 25 mg/dL [facility] Creatinine 0.63 0.60 - 1.10 mg/dL [facility] Glucose 180 70 - 199 mg/dL [facility] Comment: Interpretive Data Fasting glucose >/= [...] 2022. Calcium 9.0 8.5 - 10.3 mg/dL [facility] Blood 03/17/2024 11:1 5 PM CDT 03/18/2024 12:35 AM CDT Chadd Toledo DO LAB BLOOD ORDERABLES Final Result Performing Organization Address [facility] [place] [address] * Lidocaine level (03/17/2024 11:15 PM CDT) Lidocaine (Xylocaine) 2.7 1.5 - 5.0 mcg/mL Blood 03/17/2024 11:1 5 PM CDT 03/18/2024 12:27 AM CDT Narrative [facility] - 03/18/2024 1:00 AM CDT Draw 24 hours after infusion started. Result [facility] Chadd Toledo DO LAB BLOOD ORDERABLES Final Result Performing Organization Address [facility] [place] [address] * POCT glucose (03/17/2024 10:48 PM CDT) Glucose, POC 193 70 - 199 mg/dL Blood 03/17/2024 10:4 8 PM CDT 03/17/2024 10:48 PM CDT Result [facility] Chadd Toledo DO LAB POCT ORDERABLES - DEVICE Final Result Performing Organization Address [facility] [place] [address] * (ABNORMAL) POCT glucose (03/17/2024 8:15 PM CDT) Glucose, POC 227(H) 70 - 199 mg/dL Blood 03/17/2024 8:15 PM CDT 03/17/2024 8:15 PM CDT Chaddtorres Toledo DO LAB POCT ORDERABLES - DEVICE Final Result Performing Organization Address [facility] Co de Phone Number AJIT [facility] [place] [address] * (ABNORMAL) POCT glucose (03/17/2024 6:05 PM CDT) Glucose, POC 221(H) 70 - 199 mg/dL Blood 03/17/2024 6:05 PM CDT 03/17/2024 6:05 PM CDT Chadd Toledo DO LAB POCT ORDERABLES - DEVICE Final Result Performing Organization Address [facility] de Phone Number AJIT [facility] [place] [address] * Critical Care (03/17/2024 2:09 PM CDT) [...] plan with the patient's team and other medical/marketing regional consultant staff. This time was in addition [...] Final Result Performing Organization Address [facility] de Phone Number AJIT [facility] [place] [address] * (ABNORMAL) POCT glucose (03/17/2024 8:55 AM CDT) Glucose, POC 204(H) 70 - 199 mg/dL Blood 03/17/2024 8:55 AM CDT 03/17/2024 8:55 AM CDT Chadd Toledo DO LAB POCT ORDERABLES - DEVICE Final Result Performing Organization Address [facility] de Phone Number AJIT [facility] [place] [address] * POCT glucose (03/17/2024 3:02 AM CDT) Glucose, POC 195 70 - 199 mg/dL Blood 03/17/2024 3:02 AM CDT 03/17/2024 3:02 AM CDT Chadd Toledo DO LAB POCT ORDERABLES - DEVICE Final Result Performing Organization Address [facility] de Phone Number AJIT [facility] [place] [address] * eGFR (03/16/2024 10:09 PM CDT) eGFR [...] Toledo DO LAB BLOOD ORDERABLES Final Result [facility] Department [place] [address] * (ABNORMAL) CBC without differential (03/16/2024 10:09 PM CDT) WBC 3.5(L) 3.8 - 9.9 K/cumm Hgb 9.5(L) 11.9 - 15.5 g/dL [facility] Hct 28.7(L) 35.6 - 45.5 % [facility] Plt 129(L) 150 - 400 K/cumm [facility] MPV 8.6(L) 9.1 - 12.3 fL [facility] RBC 3.40(L) 3.90 - 5.20 M/cumm [facility] MCV 84.4 81.3 - 96.4 fL [facility] MCH 27.9 27.1 - 33.3 pg [facility] MCHC 33.1 32.3 - 35.7 g/dL [facility] RDW CV 15.1(H) 11.1 - 14.9 % [facility] RDW SD 44.1 35.7 - 48.1 fL [facility] NRBC abs 0.00 0.00 - 0.01 K/cumm [facility] Blood 03/16/2024 10:0 9 PM CDT 03/16/2024 10:29 PM CDT Chadd Toledo DO LAB BLOOD ORDERABLES Final Result Performing Organization Address City/[facility]/ZIP Co de Phone Number [facility] [place] [address] * Phosphorus (03/16/2024 10:09 PM CDT) Phosphorus, pl 2.8 2.3 - 4.5 mg/dL Blood 03/16/2024 10:0 9 PM CDT 03/16/2024 10:28 PM CDT Chadd Toledo DO LAB BLOOD ORDERABLES Final Result Performing Organization Address [facility] Co de Phone Number [facility] [place] [address] * Magnesium (03/16/2024 10:09 PM CDT) Pathologist [facility] Magnesium 1.7 1.4 - 2.5 mg/dL Blood 03/16/2024 10:0 9 PM CDT 03/16/2024 10:28 PM CDT Chadd Toledo DO LAB BLOOD ORDERABLES Final Result Performing Organization Address City/[facility]/ZIP Co de Phone Number [facility] [place] [address] * (ABNORMAL) Basic metabolic panel (03/16/2024 10:09 PM CDT) Sodium 136 135 - 145 mmol/L Potassium, pl 4.0 3.3 - 4.9 mmol/L [facility] Chloride 97 97 - 110 mmol/L [facility] CO2 31 22 - 32 mmol/L [facility] Anion gap 8 2 - 15 mmol/L [facility] BUN 13 6 - 25 mg/dL [facility] Creatinine 0.71 0.60 - 1.10 mg/dL [facility] Glucose 222(H) 70 - 199 mg/dL [facility] Comment: Interpretive Data Fasting glucose >/= [...] 2022. Calcium 8.8 8.5 - 10.3 mg/dL [facility] Blood 03/16/2024 10:0 9 PM CDT 03/16/2024 10:28 PM CDT us Chadd Toledo DO LAB BLOOD ORDERABLES Final Result Performing Organization Address [facility]/ZIP Co de Phone Number [facility] Department [place] [address] * (ABNORMAL) POCT glucose (03/16/2024 10:08 PM CDT) Glucose, POC 233(H) 70 - 199 mg/dL Blood 03/16/2024 10:0 8 PM CDT 03/16/2024 10:08 PM CDT Chadd Toledo DO LAB POCT ORDERABLES - DEVICE Final Result Performing Organization Address [facility]/State/[facility] Co de Phone Number AJIT TRANH [facility] Department [place] [address] * Critical Care (03/16/2024 8:11 PM CDT) [...] plan with the ICU team and other medical/marketing regional consultant staff, making frequent assessments and decisions [...] Final Result Performing Organization Address [facility] de Phone Number AJIT [facility] [place] [address] * POCT glucose (03/16/2024 12:13 PM CDT) Glucose, POC 194 70 - 199 mg/dL Blood 03/16/2024 12:1 3 PM CDT 03/16/2024 12:13 PM CDT Chadd Elias Toledo DO LAB POCT ORDERABLES - DEVICE Final Result Performing Organization Address [facility] de Phone Number AJIT [facility] [place] [address] * Critical Care (03/16/2024 11:56 AM CDT) [...] plan with the ICU team and other medical/marketing regional consultant staff, making frequent assessments and decisions [...] Final Result Performing Organization Address [facility] de Phone Number [facility] Department [place] [address] * POCT glucose (03/16/2024 10:11 AM CDT) Glucose, POC 130 70 - 199 mg/dL Blood 03/16/2024 10:1 1 AM CDT 03/16/2024 10:11 AM CDT Chadd Toledo DO LAB POCT ORDERABLES - DEVICE Final Result Performing Organization Address [facility] de Phone Number [facility] Department [place] [address] * POCT glucose (03/16/2024 7:14 AM CDT) Glucose, POC 128 70 - 199 mg/dL Blood 03/16/2024 7:14 AM CDT 03/16/2024 7:14 AM CDT Chadd Toledo DO LAB POCT ORDERABLES - DEVICE Final Result Performing Organization Address [facility] Co de Phone Number [place] [address] * Lidocaine level (03/16/2024 6:01 AM CDT) Lidocaine (Xylocaine) 2.9 1.5 - 5.0 mcg/mL Blood 03/16/2024 6:01 AM CDT 03/16/2024 6:14 AM CDT Narrative AJIT TRAN - 03/16/2024 6:42 AM CDT Draw 24 hours after infusion started. Chadd Toledo DO LAB BLOOD ORDERABLES Final Result Performing Organization Address [facility]/[place] [address] * POCT glucose (03/16/2024 6:00 AM CDT) Glucose, POC 129 70 - 199 mg/dL Blood 03/16/2024 6:00 AM CDT 03/16/2024 6:00 AM CDT Chadd Toledo DO LAB POCT ORDERABLES - DEVICE Final Result Performing Organization Address [facility] [place] [address] * POCT glucose (03/16/2024 5:00 AM CDT) Glucose, POC 130 70 - 199 mg/dL Blood 03/16/2024 5:00 AM CDT 03/16/2024 5:00 AM CDT Chadd Toledo DO LAB POCT ORDERABLES - DEVICE Final Result Performing Organization Address [facility] [place] [address] * Critical Care (03/16/2024 4:44 AM CDT) [...] plan with the ICU team and other medical/marketing regional consultant staff, making frequent assessments and decisions [...] Final Result Performing Organization Address [facility] de Phone Number AJIT [facility] [place] [address] * POCT glucose (03/16/2024 3:01 AM CDT) Glucose, POC 154 70 - 199 mg/dL Blood 03/16/2024 3:01 AM CDT 03/16/2024 3:01 AM CDT Chadd Toledo DO LAB POCT ORDERABLES - DEVICE Final Result Performing Organization Address [facility] Phone Number [facility] [place] [address] * POCT glucose (03/16/2024 2:03 AM CDT) Glucose, POC 169 70 - 199 mg/dL Blood 03/16/2024 2:03 AM CDT 03/16/2024 2:03 AM CDT Chadd Toledo DO LAB POCT ORDERABLES - DEVICE Final Result Performing Organization Address [facility] [place] [address] * POCT glucose (03/16/2024 1:06 AM CDT) Glucose, POC 176 70 - 199 mg/dL Blood 03/16/2024 1:06 AM CDT 03/16/2024 1:06 AM CDT Chadd Toledo DO LAB POCT ORDERABLES - DEVICE Final Result Performing Organization Address [facility]/[place] [address] * POCT glucose (03/16/2024 12:10 AM CDT) Glucose, POC 153 70 - 199 mg/dL Blood 03/16/2024 12:1 0 AM CDT 03/16/2024 12:10 AM CDT us Chadd Toledo DO LAB POCT ORDERABLES - DEVICE Final Result Performing Organization Address [facility] [place] [address] * POCT glucose (03/15/2024 11:09 PM CDT) Glucose, POC 122 70 - 199 mg/dL Blood 03/15/2024 11:0 9 PM CDT 03/15/2024 11:09 PM CDT Chadd Toledo DO LAB POCT ORDERABLES - DEVICE Final Result Performing Organization Address City/[facility] [place] [address] * POCT glucose (03/15/2024 9:59 PM CDT) Glucose, POC 130 70 - 199 mg/dL Blood 03/15/2024 9:59 PM CDT 03/15/2024 9:59 PM CDT Chadd Toledo DO LAB POCT ORDERABLES - DEVICE Final Result Performing Organization Address [facility] Co de Phone Number [facility] [place] [address] * POCT glucose (03/15/2024 8:53 PM CDT) Glucose, POC 161 70 - 199 mg/dL Blood 03/15/2024 8:53 PM CDT 03/15/2024 8:53 PM CDT us Chadd Toledo DO LAB POCT ORDERABLES - DEVICE Final Result [facility] Department [place] [address] * eGFR (03/15/2024 8:51 PM CDT) Pathologist [facility] eGFR >90 >=60 mL/min/1. 73 m2 Comment: [...] BLOOD ORDERABLES Final Result Performing Organization Address [facility] Co de Phone Number [facility] Department [place] [address] * (ABNORMAL) CBC without differential (03/15/2024 8:51 PM CDT) [facility] [address] WBC 4.8 3.8 - 9.9 K/cumm Hgb 9.4(L) 11.9 - 15.5 g/dL [facility] Hct 28.2(L) 35.6 - 45.5 % [facility] Plt 119(L) 150 - 400 K/cumm [facility] MPV 9.0(L) 9.1 - 12.3 fL [facility] RBC 3.35(L) 3.90 - 5.20 M/cumm [facility] MCV 84.2 81.3 - 96.4 fL [facility] MCH 28.1 27.1 - 33.3 pg [facility] MCHC 33.3 32.3 - 35.7 g/dL [facility] RDW CV 14.7 11.1 - 14.9 % [facility] RDW SD 43.4 35.7 - 48.1 fL [facility] NRBC abs 0.00 0.00 - 0.01 K/cumm [facility] Blood 03/15/2024 8:51 PM CDT 03/15/2024 9:04 PM CDT Chadd Toledo DO LAB BLOOD ORDERABLES Final Result Performing Organization Address [facility] Co de Phone Number [facility] Department [place] [address] * Phosphorus (03/15/2024 8:51 PM CDT) [facility] [address] Phosphorus, pl 2.7 2.3 - 4.5 mg/dL Blood 03/15/2024 8:51 PM CDT 03/15/2024 9:04 PM CDT Chadd Toledo DO LAB BLOOD ORDERABLES Final Result [facility] Department [place] [address] * Magnesium (03/15/2024 8:51 PM CDT) Pathologist [facility] Magnesium 1.7 1.4 - 2.5 mg/dL Blood 03/15/2024 8:51 PM CDT 03/15/2024 9:04 PM CDT [facility] BLOOD ORDERABLES Final Result Performing Organization Address [facility] Co de Phone Number [facility] [place] [address] * Basic metabolic panel (03/15/2024 8:51 PM CDT) [facility] [address] Sodium 136 135 - 145 mmol/L Potassium, pl 3.8 3.3 - 4.9 mmol/L [facility] Chloride 99 97 - 110 mmol/L [facility] CO2 31 22 - 32 mmol/L [facility] Anion gap 6 2 - 15 mmol/L [facility] BUN 15 6 - 25 mg/dL [facility] Creatinine 0.70 0.60 - 1.10 mg/dL [facility] Glucose 158 70 - 199 mg/dL [facility] Comment: Interpretive Data Fasting glucose >/= [...] 2022. Calcium 8.7 8.5 - 10.3 mg/dL [facility] Blood 03/15/2024 8:51 PM CDT 03/15/2024 9:04 PM CDT Chadd Toledo DO LAB BLOOD ORDERABLES Final Result Performing Organization Address [facility] Co de Phone Number [facility] [place] [address] * POCT glucose (03/15/2024 8:05 PM CDT) Glucose, POC 188 70 - 199 mg/dL Blood 03/15/2024 8:05 PM CDT 03/15/2024 8:05 PM CDT Chadd Toledo DO LAB POCT ORDERABLES - DEVICE Final Result Performing Organization Address [facility] de Phone Number AJIT [facility] [place] [address] * (ABNORMAL) POCT glucose (03/15/2024 7:04 PM CDT) Glucose, POC 221(H) 70 - 199 mg/dL Blood 03/15/2024 7:04 PM CDT 03/15/2024 7:04 PM CDT Chadd Toledo DO LAB POCT ORDERABLES - DEVICE Final Result Performing Organization Address [facility] de Phone Number [facility] [place] [address] * (ABNORMAL) POCT glucose (03/15/2024 6:09 PM CDT) Glucose, POC 217(H) 70 - 199 mg/dL Blood 03/15/2024 6:09 PM CDT 03/15/2024 6:09 PM CDT Chadd Toledo DO LAB POCT ORDERABLES - DEVICE Final Result Performing Organization Address [facility]/State/ZIP Co de Phone Number AJIT TRAN [facility] Department [place] [address] * (ABNORMAL) POCT glucose (03/15/2024 5:38 PM CDT) Glucose, POC 200(H) 70 - 199 mg/dL Blood 03/15/2024 5:38 PM CDT 03/15/2024 5:38 PM CDT us Chaddtorres Toledo DO LAB POCT ORDERABLES - DEVICE Final Result [facility]IT [facility] [place] [address] * Critical Care (03/15/2024 5:28 PM CDT) [...] plan with the ICU team and other medical/marketing regional consultant staff, making frequent assessments and decisions [...] Final Result Performing Organization Address [facility] Co de Phone Number [facility] [place] [address] * POCT glucose (03/15/2024 3:09 PM CDT) Glucose, POC 169 70 - 199 mg/dL Blood 03/15/2024 3:09 PM CDT 03/15/2024 3:09 PM CDT Chadd Toledo DO LAB POCT ORDERABLES - DEVICE Final Result Performing Organization Address [facility] de Phone Number [facility] [place] [address] * XR Spine Thoracic 3 Vw (03/15/2024 [...] Final Result Performing Organization Address [facility] Co de Phone Number CERNER [facility] Department [place] [address] * POCT glucose (03/15/2024 12:32 PM CDT) Glucose, POC 198 70 - 199 mg/dL Blood 03/15/2024 12:3 2 PM CDT 03/15/2024 12:32 PM CDT Chadd Toledo DO LAB POCT ORDERABLES - DEVICE Final Result Performing Organization Address [facility] Co de Phone Number [facility] [place] [address] * (ABNORMAL) POCT glucose (03/15/2024 11:07 AM CDT) Glucose, POC 208(H) 70 - 199 mg/dL Blood 03/15/2024 11:0 7 AM CDT 03/15/2024 11:07 AM CDT Chadd Toledo DO LAB POCT ORDERABLES - DEVICE Final Result Performing Organization Address [facility] Co de Phone Number [facility] [place] [address] * (ABNORMAL) POCT glucose (03/15/2024 10:05 AM CDT) Glucose, POC 217(H) 70 - 199 mg/dL Blood 03/15/2024 10:0 5 AM CDT 03/15/2024 10:05 AM CDT Chadd Toledo DO LAB POCT ORDERABLES - DEVICE Final Result Performing Organization Address [facility] Co de Phone Number [facility] [place] [address] * POCT glucose (03/15/2024 8:13 AM CDT) Glucose, POC 95 70 - 199 mg/dL Blood 03/15/2024 8:13 AM CDT 03/15/2024 8:13 AM CDT Chadd Toledo DO LAB POCT ORDERABLES - DEVICE Final Result Performing Organization Address City/[facility] Co de Phone Number [facility] [place] [address] * POCT glucose (03/15/2024 7:16 AM CDT) Glucose, POC 84 70 - 199 mg/dL Blood 03/15/2024 7:16 AM CDT 03/15/2024 7:16 AM CDT Chaddtorres Griffin Efetorres DO LAB POCT ORDERABLES - DEVICE Final Result Performing Organization Address [facility] Co de Phone Number [facility] [place] [address] * Lidocaine level (03/15/2024 6:00 AM CDT) Lidocaine (Xylocaine) 2.8 1.5 - 5.0 mcg/mL Blood 03/15/2024 6:00 AM CDT 03/15/2024 6:18 AM CDT Narrative [facility] - 03/15/2024 6:47 AM CDT Draw 24 hours after infusion started. Chadd Elias Efetorres LAB BLOOD ORDERABLES Final Result Performing Organization Address [facility] Co de Phone Number [facility] [place] [address] * POCT glucose (03/15/2024 5:58 AM CDT) Glucose, POC 115 70 - 199 mg/dL Blood 03/15/2024 5:58 AM CDT 03/15/2024 5:58 AM CDT Chadd Elias Efetorres LAB POCT ORDERABLES - DEVICE Final Result Performing Organization Address City/[facility] Co de Phone Number [facility] [place] [address] * POCT glucose (03/15/2024 4:58 AM CDT) Glucose, POC 135 70 - 199 mg/dL Blood 03/15/2024 4:58 AM CDT 03/15/2024 4:58 AM CDT Chadd Toledo DO LAB POCT ORDERABLES - DEVICE Final Result Performing Organization Address [facility] Co de Phone Number [facility] [place] [address] * POCT glucose (03/15/2024 4:03 AM CDT) Glucose, POC 175 70 - 199 mg/dL Blood 03/15/2024 4:03 AM CDT 03/15/2024 4:03 AM CDT Chadd Toledo DO LAB POCT ORDERABLES - DEVICE Final Result Performing Organization Address [facility] de Phone Number [facility] [place] [address] * POCT glucose (03/15/2024 3:01 AM CDT) Glucose, POC 158 70 - 199 mg/dL Blood 03/15/2024 3:01 AM CDT 03/15/2024 3:01 AM CDT Chadd Toledo DO LAB POCT ORDERABLES - DEVICE Final Result Performing Organization Address [facility] [place] [address] * POCT glucose (03/15/2024 2:00 AM CDT) Glucose, POC 140 70 - 199 mg/dL Blood 03/15/2024 2:00 AM CDT 03/15/2024 2:00 AM CDT Chadd Toledo DO LAB POCT ORDERABLES - DEVICE Final Result Performing Organization Address [facility] Co de Phone Number [facility] [place] [address] * POCT glucose (03/15/2024 1:00 AM CDT) Glucose, POC 122 70 - 199 mg/dL Blood 03/15/2024 1:00 AM CDT 03/15/2024 1:00 AM CDT Chadd Toledo DO LAB POCT ORDERABLES - DEVICE Final Result Performing Organization Address [facility] Co de Phone Number AJIT [facility] [place] [address] * POCT glucose (03/14/2024 11:55 PM CDT) Glucose, POC 84 70 - 199 mg/dL Blood 03/14/2024 11:5 5 PM CDT 03/14/2024 11:55 PM CDT Chdad Toledo DO LAB POCT ORDERABLES - DEVICE Final Result Performing Organization Address [facility] Co de Phone Number [facility] [place] [address] * [place] CRITICAL CARE ILL/INJURED PATIENT INIT 30-74 MIN [...] plan with the ICU team and other medical/marketing regional consultant staff, making frequent assessments and decisions [...] - DEVICE Final Result Performing Organization Address City/[facility]/ZIP Co de Phone Number [facility] [place] [address] * POCT glucose (03/14/2024 9:07 PM CDT) Glucose, POC 127 70 - 199 mg/dL Blood 03/14/2024 9:07 PM CDT 03/14/2024 9:07 PM CDT us Chadd Toledo DO LAB POCT ORDERABLES - DEVICE Final Result [facility] [place] [address] * POCT glucose (03/14/2024 7:57 PM CDT) Glucose, POC 149 70 - 199 mg/dL Blood 03/14/2024 7:57 PM CDT 03/14/2024 7:57 PM CDT us Chadd Toledo DO LAB POCT ORDERABLES - DEVICE Final Result Performing Organization Address [facility] Co de Phone Number AJIT [facility] [place] [address] * eGFR (03/14/2024 7:55 PM CDT) eGFR [...] BLOOD ORDERABLES Final Result Performing Organization Address City/[facility] Co de Phone Number AJIT [facility] Department [place] [address] * Type and screen (03/14/2024 7:55 PM CDT) Pathologist [facility] ABO Rh O Negative Anselmo, indirect Negative [facility] Blood 03/14/2024 7:55 PM CDT 03/14/2024 8:24 PM CDT Narrative [facility] - 03/14/2024 9:09 PM CDT Has the patient had Daratumumab or Isatuximab in the past 6 months?->Unknown Chadd Toledo DO LAB BLOOD BANK TEST O RDERABLES Final Result Performing Organization Address City/[facility]/ZIP Co de Phone Number [facility] Department [place] [address] * (ABNORMAL) CBC without differential (03/14/2024 7:55 PM CDT) Pathologist [facility] WBC 5.0 3.8 - 9.9 K/cumm Hgb 9.9(L) 11.9 - 15.5 g/dL [facility] Hct 29.2(L) 35.6 - 45.5 % [facility] Plt 112(L) 150 - 400 K/cumm [facility] MPV 9.3 9.1 - 12.3 fL [facility] RBC 3.50(L) 3.90 - 5.20 M/cumm [facility] MCV 83.4 81.3 - 96.4 fL [facility] MCH 28.3 27.1 - 33.3 pg [facility] MCHC 33.9 32.3 - 35.7 g/dL [facility] RDW CV 14.6 11.1 - 14.9 % [facility] RDW SD 43.5 35.7 - 48.1 fL [facility] NRBC abs 0.00 0.00 - 0.01 K/cumm [facility] Blood 03/14/2024 7:55 PM CDT 03/14/2024 8:19 PM CDT Chadd Toledo DO LAB BLOOD ORDERABLES Final Result [facility] [place] [address] * Phosphorus (03/14/2024 7:55 PM CDT) [facility] [address] Phosphorus, pl 3.0 2.3 - 4.5 mg/dL Blood 03/14/2024 7:55 PM CDT 03/14/2024 8:19 PM CDT Chadd Toledo DO LAB BLOOD ORDERABLES Final Result Performing Organization Address City/[facility] [place] [address] * Magnesium (03/14/2024 7:55 PM CDT) [facility] [address] Magnesium 1.7 1.4 - 2.5 mg/dL Blood 03/14/2024 7:55 PM CDT 03/14/2024 8:19 PM CDT Chadd Toledo DO LAB BLOOD ORDERABLES Final Result Performing Organization Address [facility] de Phone Number [facility] [place] [address] * (ABNORMAL) Basic metabolic panel (03/14/2024 7:55 PM CDT) [facility] [address] Sodium 135 135 - 145 mmol/L Potassium, pl 3.9 3.3 - 4.9 mmol/L [facility] Chloride 98 97 - 110 mmol/L [facility] CO2 33(H) 22 - 32 mmol/L [facility] Anion gap 4 2 - 15 mmol/L [facility] BUN 12 6 - 25 mg/dL [facility] Creatinine 0.53(L) 0.60 - 1.10 mg/dL [facility] Glucose 136 70 - 199 mg/dL [facility] Comment: Interpretive Data Fasting glucose >/= [...] 2022. Calcium 8.5 8.5 - 10.3 mg/dL [facility] Blood 03/14/2024 7:55 PM CDT 03/14/2024 8:19 PM CDT Chadd Toledo DO LAB BLOOD ORDERABLES Final Result Performing Organization Address [facility] Co de Phone Number [facility] [place] [address] * POCT glucose (03/14/2024 6:59 PM CDT) Glucose, POC 145 70 - 199 mg/dL Blood 03/14/2024 6:59 PM CDT 03/14/2024 6:59 PM CDT Chadd Toledo DO LAB POCT ORDERABLES - DEVICE Final Result Performing Organization Address [facility] Co de Phone Number [facility] [place] [address] * POCT glucose (03/14/2024 6:01 PM CDT) Glucose, POC 177 70 - 199 mg/dL Blood 03/14/2024 6:01 PM CDT 03/14/2024 6:01 PM CDT Chadd Toledo DO LAB POCT ORDERABLES - DEVICE Final Result Performing Organization Address [facility] Co de Phone Number [facility] [place] [address] * POCT glucose (03/14/2024 5:21 PM CDT) Glucose, POC 196 70 - 199 mg/dL Blood 03/14/2024 5:21 PM CDT 03/14/2024 5:21 PM CDT Chadd Elias Efetorres DO LAB POCT ORDERABLES - DEVICE Final Result [facility] [place] [address] * (ABNORMAL) POCT glucose (03/14/2024 4:25 PM CDT) Glucose, POC 238(H) 70 - 199 mg/dL Blood 03/14/2024 4:25 PM CDT 03/14/2024 4:25 PM CDT Chadd Elias Tre CARR LAB POCT ORDERABLES - DEVICE Final Result Performing Organization Address City/[facility]/ZIP Co de Phone Number [facility] [place] [address] * (ABNORMAL) POCT glucose (03/14/2024 3:20 PM CDT) Glucose, POC 239(H) 70 - 199 mg/dL Blood 03/14/2024 3:20 PM CDT 03/14/2024 3:20 PM CDT Chadd Elias Efetorres DO LAB POCT ORDERABLES - DEVICE Final Result Performing Organization Address City/[facility]/ZIP [place] [address] * (ABNORMAL) POCT glucose (03/14/2024 2:00 PM CDT) Glucose, POC 271(H) 70 - 199 mg/dL Comment:Glu2: RN/MD Notified Glucose comment 1 Glu2: RN/MD Notified [facility] Blood 03/14/2024 2:00 PM CDT 03/14/2024 2:00 PM CDT Chadd Toledo DO LAB POCT ORDERABLES - DEVICE Final Result Performing Organization Address [facility] Co de Phone Number [facility] [place] [address] * (ABNORMAL) POCT glucose (03/14/2024 12:59 PM CDT) Glucose, POC 257(H) 70 - 199 mg/dL Blood 03/14/2024 12:5 9 PM CDT 03/14/2024 12:59 PM CDT Chadd Elias Tre LAB POCT ORDERABLES - DEVICE Final Result Performing Organization Address [facility] de Phone Number [facility] [place] [address] * (ABNORMAL) POCT glucose (03/14/2024 12:15 PM CDT) Glucose, POC 252(H) 70 - 199 mg/dL Blood 03/14/2024 12:1 5 PM CDT 03/14/2024 12:15 PM CDT Chadd Elias Efetorres DO LAB POCT ORDERABLES - DEVICE Final Result Performing Organization Address [facility] de Phone Number [facility] [place] [address] * (ABNORMAL) POCT glucose (03/14/2024 11:01 AM CDT) Glucose, POC 218(H) 70 - 199 mg/dL Blood 03/14/2024 11:0 1 AM CDT 03/14/2024 11:01 AM CDT Chadd Toledo DO LAB POCT ORDERABLES - DEVICE Final Result Performing Organization Address [facility] Co de Phone Number [facility] [place] [address] * POCT glucose (03/14/2024 9:56 AM CDT) Glucose, POC 153 70 - 199 mg/dL Blood 03/14/2024 9:56 AM CDT 03/14/2024 9:56 AM CDT Chadd Toledo DO LAB POCT ORDERABLES - DEVICE Final Result Performing Organization Address [facility] de Phone Number [facility] [place] [address] * POCT glucose (03/14/2024 9:00 AM CDT) Glucose, POC 105 70 - 199 mg/dL Blood 03/14/2024 9:00 AM CDT 03/14/2024 9:00 AM CDT Chadd Toledo DO LAB POCT ORDERABLES - DEVICE Final Result Performing Organization Address [facility] [place] [address] * POCT glucose (03/14/2024 8:07 AM CDT) Glucose, POC 78 70 - 199 mg/dL Blood 03/14/2024 8:07 AM CDT 03/14/2024 8:07 AM CDT Chadd Toledo DO LAB POCT ORDERABLES - DEVICE Final Result [facility] Department [place] [address] * Critical Care (03/14/2024 7:38 AM CDT) [...] plan with the ICU team and other medical/marketing regional consultant staff, making frequent assessments and decisions [...] Final Result Performing Organization Address [facility] Co de Phone Number [facility] [place] [address] * POCT glucose (03/14/2024 6:10 AM CDT) Glucose, POC 127 70 - 199 mg/dL Blood 03/14/2024 6:10 AM CDT 03/14/2024 6:10 AM CDT Chaddtorres Griffin Efetorres DO LAB POCT ORDERABLES - DEVICE Final Result Performing Organization Address [facility] Co de Phone Number [facility] [place] [address] * POCT glucose (03/14/2024 5:11 AM CDT) Glucose, POC 138 70 - 199 mg/dL Blood 03/14/2024 5:11 AM CDT 03/14/2024 5:11 AM CDT Chadd Toledo DO LAB POCT ORDERABLES - DEVICE Final Result Performing Organization Address [facility] Co de Phone Number [facility] [place] [address] * POCT glucose (03/14/2024 4:03 AM CDT) Glucose, POC 139 70 - 199 mg/dL Blood 03/14/2024 4:03 AM CDT 03/14/2024 4:03 AM CDT us Chadd Toledo DO LAB POCT ORDERABLES - DEVICE Final Result Performing Organization Address [facility] Co de Phone Number [facility]IT [facility] [place] [address] * POCT glucose (03/14/2024 3:11 AM CDT) Glucose, POC 173 70 - 199 mg/dL Blood 03/14/2024 3:11 AM CDT 03/14/2024 3:11 AM CDT us Chadd Toledo DO LAB POCT ORDERABLES - DEVICE Final Result Performing Organization Address [facility] [place] [address] * POCT glucose (03/14/2024 2:21 AM CDT) Glucose, POC 165 70 - 199 mg/dL Blood 03/14/2024 2:21 AM CDT 03/14/2024 2:21 AM CDT us Chadd Toledo DO LAB POCT ORDERABLES - DEVICE Final Result Performing Organization Address [facility] de Phone Number [facility]IT [facility] [place] [address] * POCT glucose (03/14/2024 1:15 AM CDT) Glucose, POC 192 70 - 199 mg/dL Blood 03/14/2024 1:15 AM CDT 03/14/2024 1:15 AM CDT Chadd Toledo DO LAB POCT ORDERABLES - DEVICE Final Result Performing Organization Address [facility] Co de Phone Number [facility]IT [facility] [place] [address] * CT Cervical Spine WO Contrast (03/14/2024 [...] POCT glucose (03/14/2024 12:04 AM CDT) Pathologist [facility] Glucose, POC 192 70 - 199 mg/dL Blood 03/14/2024 12:0 4 AM CDT 03/14/2024 12:04 AM CDT Chadd Toledo DO LAB POCT ORDERABLES - DEVICE Final Result [facility] Department [place] [address] * ECG 12 lead (03/13/2024 11:58 PM CDT) Ventricular Rate EKG/Min 96 BPM [facility] Atrial Rate 96 BPM [facility] VT-Interval (MSEC) 208 ms [facility] QRS-Interval (MSEC) 112 ms [facility] QT-Interval (MSEC) 390 ms [facility] QTc 492 ms [facility] P [place] 71 degrees [facility] R [place] 63 degrees [facility] T [place] 64 degrees [facility] Diagnosis Normal sinus rhythm Prolonged QT Abnormal ECG No previous ECGs available Confirmed by CALEB MORALES M.D ([id number]) on 03/14/2024 5:29:02 PM [facility] 03/13/2024 11:5 8 PM CDT 03/14/2024 5:29 PM CDT us Chadd Toledo DO ECG ORDERABLES Final Result Performing Organization Address [facility] Co de Phone Number [facility] * (ABNORMAL) POCT glucose (03/13/2024 11:13 PM CDT) Glucose, POC 209(H) 70 - 199 mg/dL Blood 03/13/2024 11:1 3 PM CDT 03/13/2024 11:13 PM CDT Chadd Toledo DO LAB POCT ORDERABLES - DEVICE Final Result Performing Organization Address [facility] de Phone Number [facility] Department [place] [address] * POCT glucose (03/13/2024 10:08 PM CDT) Glucose, POC 196 70 - 199 mg/dL Blood 03/13/2024 10:0 8 PM CDT 03/13/2024 10:08 PM CDT Chadd Toledo DO LAB POCT ORDERABLES - DEVICE Final Result Performing Organization Address [facility] Co de Phone Number [facility] Department [place] [address] * aPTT (03/13/2024 10:04 PM CDT) aPTT [...] BLOOD ORDERABLES Final Result Performing Organization Address [facility] de Phone Number [facility] [place] [address] * (ABNORMAL) Protime-INR (03/13/2024 10:04 PM CDT) Pathologist [facility] PT 13.7(H) 9.7 - 13.0 sec INR 1.26(H) 0.90 - 1.20 [facility] Comment: Interpretive data Oral anticoagulant therapeutic ranges: Venous thromboembolism prophylaxis or treatment: 2.0-3.0 CARDIOLOGY Standard range: 2.0-3.0 High-intensity range: 2.5-3.5 Refer to indication-specific guidelines for appropriate target ranges for prosthetic heart valve replacement. Current interpretive data was last revised on 2019. Blood 03/13/2024 10:0 4 PM CDT 03/13/2024 10:24 PM CDT Chadd Toledo DO LAB BLOOD ORDERABLES Final Result Performing Organization Address [facility] de Phone Number [facility] [place] [address] * Critical Care (03/13/2024 10:00 PM CDT) [...] plan with the ICU team and other medical/marketing regional consultant staff, making frequent assessments and decisions [...] Toledo DO LAB BLOOD ORDERABLES Final Result [facility] Department [place] [address] * eGFR (03/13/2024 10:00 PM CDT) eGFR [...] Toledo DO LAB BLOOD ORDERABLES Final Result [facility] Department [place] [address] * (ABNORMAL) CBC without differential (03/13/2024 10:00 PM CDT) Pathologist [facility] WBC 5.0 3.8 - 9.9 K/cumm Hgb 10.2(L) 11.9 - 15.5 g/dL [facility] Hct 30.8(L) 35.6 - 45.5 % [facility] Plt 107(L) 150 - 400 K/cumm [facility] MPV 8.4(L) 9.1 - 12.3 fL [facility] RBC 3.69(L) 3.90 - 5.20 M/cumm [facility] MCV 83.5 81.3 - 96.4 fL [facility] MCH 27.6 27.1 - 33.3 pg [facility] MCHC 33.1 32.3 - 35.7 g/dL [facility] RDW CV 14.1 11.1 - 14.9 % [facility] RDW SD 42.5 35.7 - 48.1 fL [facility] NRBC abs 0.00 0.00 - 0.01 K/cumm [facility] Blood 03/13/2024 10:0 0 PM CDT 03/13/2024 10:22 PM CDT Chadd Toledo LAB BLOOD ORDERABLES Final Result [facility] [place] [address] * Phosphorus (03/13/2024 10:00 PM CDT) Phosphorus, pl 3.1 2.3 - 4.5 mg/dL Blood 03/13/2024 10:0 0 PM CDT 03/13/2024 10:17 PM CDT Chadd Toledo LAB BLOOD ORDERABLES Final Result [facility] [place] [address] * Magnesium (03/13/2024 10:00 PM CDT) Magnesium 1.6 1.4 - 2.5 mg/dL Blood 03/13/2024 10:0 0 PM CDT 03/13/2024 10:17 PM CDT Chadd Toledo DO LAB BLOOD ORDERABLES Final Result [facility] Department [place] [address] * (ABNORMAL) Basic metabolic panel (03/13/2024 10:00 PM CDT) Pathologist [facility] Sodium 136 135 - 145 mmol/L Potassium, pl 4.3 3.3 - 4.9 mmol/L [facility] Chloride 100 97 - 110 mmol/L [facility] CO2 30 22 - 32 mmol/L [facility] Anion gap 6 2 - 15 mmol/L [facility] BUN 11 6 - 25 mg/dL [facility] Creatinine 0.49(L) 0.60 - 1.10 mg/dL [facility] Glucose 203(H) 70 - 199 mg/dL [facility] Comment: Interpretive Data Fasting glucose >/= [...] 2022. Calcium 8.6 8.5 - 10.3 mg/dL [facility] Blood 03/13/2024 10:0 0 PM CDT 03/13/2024 10:17 PM CDT us Chadd Toledo DO LAB BLOOD ORDERABLES Final Result Performing Organization Address City/[facility]/ZIP Co de Phone Number AJIT [facility] Department [place] [address] * [place] Fluoroscopy < 1 Hour (03/13/2024 9:23 PM CDT) Narrative [email or web address] - 03/13/2024 9:23 PM CDT The images from this study are not interpreted by Radiology. ??Please refer to the physician's procedure / OR operative note. Marcio Tapia MD IMG FLUOROSCOPY PROCEDURES Komal l Result Performing Organization Address City/State/[facility] Co de Phone Number [email or web address] * (ABNORMAL) POC Blood Gas and Chemistries, Arterial - (03/13/2024 8:57 PM CDT) pH, Art POC 7.39 7.35 - 7.45 pCO2, Art POC 48(H) 35 - 45 mmHg [facility] pO2, Art POC 119(H) 83 - 108 mmHg [facility] Na, POC 134(L) 135 - 145 mmol/L [facility] K POC 4.2 3.3 - 4.9 mmol/L [facility] Comment: Interpretive Data Not all point of care methods assess for hemolysis. Confirm with instrument and retest K+ if not consistent with clinical signs and symptoms. Current Interpretive Data was last revised on 2023. Cl, POC 104 97 - 110 mmol/L [facility] Ionized Ca, POC 4.90 4.50 - 5.10 mg/dL [facility] Glucose, POC 226(H) 70 - 199 mg/dL [facility] Lactate, POC 1.6 0.7 - 2.2 mmol/L [facility] SO2 (caleb) arterial 99(H) 90 - 95 % [facility] Base excess, POC 3.5 mmol/L [facility] HCO3, Art POC 29 20 - 30 mmol/L [facility] Hct, POC 32.0(L) 36.3 - 45.3 % [facility] Total Hb, POC 10.7(L) 11.9 - 15.5 g/dL [facility] Blood 03/13/2024 8:57 PM CDT 03/13/2024 8:57 PM CDT Chadd Toledo DO LAB POCT ORDERABLES - DEVICE Final Result [facility] Department [place] [address] * XR Spine Cervical 2 or 3 [...] and agrees with it. Electronically signed by: uSshil Contreras M.D. Narrative 03/13/2024 9:05 PM CDT [...] MD BLOOD TRANSFUSION ORDERA BLES Final Result [facility] Department [place] [address] * (ABNORMAL) POC Blood Gas and Chemistries, Arterial - (03/13/2024 7:14 PM CDT) pH, Art POC 7.38 7.35 - 7.45 pCO2, Art POC 47(H) 35 - 45 mmHg [facility] pO2, Art POC 111(H) 83 - 108 mmHg [facility] Na, POC 135 135 - 145 mmol/L [facility] K POC 4.2 3.3 - 4.9 mmol/L [facility] Comment: Interpretive Data Not all point of care methods assess for hemolysis. Confirm with instrument and retest K+ if not consistent with clinical signs and symptoms. Current Interpretive Data was last revised on 2023. Cl, POC 104 97 - 110 mmol/L [facility] Ionized Ca, POC 5.50(H) 4.50 - 5.10 mg/dL [facility] Glucose, POC 218(H) 70 - 199 mg/dL [facility] Lactate, POC 1.7 0.7 - 2.2 mmol/L [facility] SO2 (caleb) arterial 98(H) 90 - 95 % [facility] Base excess, POC 2.2 mmol/L [facility] HCO3, Art POC 28 20 - 30 mmol/L [facility] Hct, POC 30.0(L) 36.3 - 45.3 % [facility] Total Hb, POC 9.9(L) 11.9 - 15.5 g/dL [facility] Blood 03/13/2024 7:1 4 PM CDT 03/13/2024 7:14 PM CDT Chadd Toledo DO LAB POCT ORDERABLES - DEVICE Final Result Performing Organization Address [facility] [place] [address] * Transfuse plasma (03/13/2024 6:12 PM CDT) Blood us Rafael Breaux MD BLOOD TRANSFUSION ORDERA BLES Final Result Performing Organization Address [facility] de Phone Number [facility] [place] [address] * Transfuse RBC (03/13/2024 5:46 PM CDT) Blood Rafael Breaux MD BLOOD TRANSFUSION ORDERA BLES Final Result Performing Organization Address [facility] [place] [address] * Prepare plasma: 2 Units (03/13/2024 5:45 PM CDT) Product code [id number] Unit Number [id number] [facility] Product Blood Type OPOS [facility] Dispense Status PRESUMED TRANSFUSED [facility] Blood (Blood, Venous) 03/13/2024 5:45 PM CDT 03/13/2024 5:45 PM CDT Narrative [facility] - 03/14/2024 12:46 AM CDT Date required:-[id number] FFP # of Units:-2-Units Reasons:-Immediate need for surgical intervention Rafael Breaux MD BLOOD BANK PRODUCT ORDER LAKESHIA Final Result Performing Organization Address [facility] Co de Phone Number [place], [place] [id number] * (ABNORMAL) POCT prothrombin time (03/13/2024 5:33 PM CDT) PT, POC 21.1(H) 11.7 - 16.6 sec INR, POC 1.6(H) 0.9 - 1.3 [facility] Blood 03/13/2024 5:33 PM CDT 03/13/2024 5:33 PM CDT Chadd Elias Toledo DO LAB POCT ORDERABLES - DEVICE Final Result Performing Organization Address [facility] Co de Phone Number [facility] [place] [address] * (ABNORMAL) POCT Partial thromboplastin time (PTT) (03/13/2024 5:33 PM CDT) Pathologist [facility] APTT, POC 28.4(L) 32.5 - 46.1 sec Blood 03/13/2024 5:33 PM CDT 03/13/2024 5:33 PM CDT Chadd Elias Toledo DO LAB POCT ORDERABLES - DEVICE Final Result Performing Organization Address [facility] de Phone Number [facility] [place] [address] * (ABNORMAL) POCT platelet count and hematocrit (03/13/2024 5:33 PM CDT) [facility] [address] Hematocrit POC 31.3(L) 35.6 - 45.5 % Platelet POC 155 150 - 400 K/cumm [facility] Blood 03/13/2024 5:33 PM CDT 03/13/2024 5:33 PM CDT Chaddtorres Toledo DO LAB POCT ORDERABLES - DEVICE Final Result Performing Organization Address [facility] Co de Phone Number [facility] [place] [address] * (ABNORMAL) POC Blood Gas and Chemistries, Arterial - (03/13/2024 5:33 PM CDT) pH, Art POC 7.39 7.35 - 7.45 pCO2, Art POC 45 35 - 45 mmHg [facility] pO2, Art POC 129(H) 83 - 108 mmHg [facility] Na, POC 135 135 - 145 mmol/L [facility] K POC 4.2 3.3 - 4.9 mmol/L [facility] Comment: Interpretive Data Not all point of care methods assess for hemolysis. Confirm with instrument and retest K+ if not consistent with clinical signs and symptoms. Current Interpretive Data was last revised on 2023. Cl, POC 104 97 - 110 mmol/L [facility] Ionized Ca, POC 4.62 4.50 - 5.10 mg/dL [facility] Glucose, POC 190 70 - 199 mg/dL [facility] Lactate, POC 1.8 0.7 - 2.2 mmol/L [facility] SO2 (caleb) arterial 100(H) 90 - 95 % [facility] Base excess, POC 1.8 mmol/L [facility] HCO3, Art POC 26 20 - 30 mmol/L [facility] Hct, POC 33.0(L) 36.3 - 45.3 % [facility] Total Hb, POC 10.9(L) 11.9 - 15.5 g/dL [facility] Blood 03/13/2024 5:33 PM CDT 03/13/2024 5:33 PM CDT Chadd oTledo DO LAB POCT ORDERABLES - DEVICE Final Result [facility] Department [place] [address] * Critical Care (03/13/2024 5:04 PM CDT) [...] plan with the ICU team and other medical/marketing regional consultant staff, making frequent assessments and decisions [...] LAB POCT ORDERABLES - DEVICE Final Result [facility] Department [place] [address] * Prepare RBC: 2 Units (03/13/2024 4:20 PM CDT) Product code [id number] Unit Number [id number] [facility] Product Blood Type [facility]G [facility] Dispense Status [facility] Product code [id number] [facility] Unit Number [id number] [facility] Product Blood Type ONEG [facility] Dispense Status PRESUMED TRANSFUSED [facility] Blood 03/13/2024 4:20 PM CDT 03/13/2024 4:20 PM CDT Narrative [facility] - 03/14/2024 12:46 AM CDT Are special requirements needed? (All products are leukoreduced and CMV- safe)- >No Date required:-[id number] LRRBC # of [id number] Reasons:-Intra-op transfusion} Rafael Breaux MD BLOOD BANK PRODUCT ORDER LAKESHIA Final Result [facility] Department [place] [address] * POCT glucose (03/13/2024 2:53 PM CDT) [facility] [address] Glucose, POC 101 70 - 199 mg/dL Blood 03/13/2024 2:53 PM CDT 03/13/2024 2:53 PM CDT Chadd Toledo DO LAB POCT ORDERABLES - DEVICE Final Result [facility] [place] [address] * POCT glucose (03/13/2024 2:01 PM CDT) Pathologist [facility] Glucose, POC 114 70 - 199 mg/dL Blood 03/13/2024 2:01 PM CDT 03/13/2024 2:01 PM CDT Chadd Toledo DO LAB POCT ORDERABLES - DEVICE Final Result Performing Organization Address City/[facility] Co de Phone Number [facility] [place] [address] * POCT glucose (03/13/2024 12:57 PM CDT) Glucose, POC 126 70 - 199 mg/dL Blood 03/13/2024 12:5 7 PM CDT 03/13/2024 12:57 PM CDT Chadd Toledo DO LAB POCT ORDERABLES - DEVICE Final Result Performing Organization Address [facility] [place] [address] * POCT glucose (03/13/2024 12:00 PM CDT) Glucose, POC 135 70 - 199 mg/dL Blood 03/13/2024 12:0 0 PM CDT 03/13/2024 12:00 PM CDT Chadd Toledo DO LAB POCT ORDERABLES - DEVICE Final Result Performing Organization Address [facility] Co de Phone Number [facility] [place] [address] * POCT glucose (03/13/2024 10:57 AM CDT) Glucose, POC 138 70 - 199 mg/dL Blood 03/13/2024 10:5 7 AM CDT 03/13/2024 10:57 AM CDT Chadd Toledo DO LAB POCT ORDERABLES - DEVICE Final Result Performing Organization Address City/[facility] Co de Phone Number [facility] [place] [address] * POCT glucose (03/13/2024 9:55 AM CDT) Glucose, POC 174 70 - 199 mg/dL Blood 03/13/2024 9:55 AM CDT 03/13/2024 9:55 AM CDT Chadd Toledo DO LAB POCT ORDERABLES - DEVICE Final Result Performing Organization Address City/[facility] [place] [address] * POCT glucose (03/13/2024 8:57 AM CDT) Glucose, POC 163 70 - 199 mg/dL Blood 03/13/2024 8:57 AM CDT 03/13/2024 8:57 AM CDT Chadd Toledo LAB POCT ORDERABLES - DEVICE Final Result Performing Organization Address [facility] [place] [address] * POCT glucose (03/13/2024 8:05 AM CDT) Glucose, POC 168 70 - 199 mg/dL Blood 03/13/2024 8:05 AM CDT 03/13/2024 8:05 AM CDT Chadd Toledo LAB POCT ORDERABLES - DEVICE Final Result Performing Organization Address [facility] [place] [address] * POCT glucose (03/13/2024 7:12 AM CDT) Glucose, POC 192 70 - 199 mg/dL Blood 03/13/2024 7:12 AM CDT 03/13/2024 7:12 AM CDT us Chadd Toledo DO LAB POCT ORDERABLES - DEVICE Final Result [facility] Department [place] [address] * XR Chest 1 View (03/13/2024 7:10 [...] Final Result Performing Organization Address [facility] Co de Phone Number [facility] [place] [address] * Lidocaine level (03/13/2024 5:50 AM CDT) Lidocaine (Xylocaine) 2.1 1.5 - 5.0 mcg/mL Blood 03/13/2024 5:50 AM CDT 03/13/2024 6:05 AM CDT Narrative [facility] - 03/13/2024 6:29 AM CDT Draw 24 hours after infusion started. Chadd Toledo DO LAB BLOOD ORDERABLES Final Result Performing Organization Address [facility]/ZIP Co de Phone Number [facility] [place] [address] * POCT glucose (03/13/2024 5:02 AM CDT) Glucose, POC 187 70 - 199 mg/dL Blood 03/13/2024 5:02 AM CDT 03/13/2024 5:02 AM CDT Chadd Elias Craft DO LAB POCT ORDERABLES - DEVICE Final Result Performing Organization Address City/[facility]/ZIP Co de Phone [facility] [place] [address] * POCT glucose (03/13/2024 3:56 AM CDT) Glucose, POC 152 70 - 199 mg/dL Blood 03/13/2024 3:56 AM CDT 03/13/2024 3:56 AM CDT Chadd Toledo DO LAB POCT ORDERABLES - DEVICE Final Result Performing Organization Address [facility] [place] [address] * POCT glucose (03/13/2024 3:04 AM CDT) Glucose, POC 178 70 - 199 mg/dL Blood 03/13/2024 3:04 AM CDT 03/13/2024 3:04 AM CDT Chadd Toledo DO LAB POCT ORDERABLES - DEVICE Final Result Performing Organization Address [facility] Co de Phone Number [facility] [place] [address] * (ABNORMAL) POCT glucose (03/13/2024 1:55 AM CDT) Glucose, POC 203(H) 70 - 199 mg/dL Blood 03/13/2024 1:55 AM CDT 03/13/2024 1:55 AM CDT Chadd Toledo DO LAB POCT ORDERABLES - DEVICE Final Result Performing Organization Address City/[facility] Co de Phone Number [facility] [place] [address] * POCT glucose (03/13/2024 12:57 AM CDT) Glucose, POC 119 70 - 199 mg/dL Blood 03/13/2024 12:5 7 AM CDT 03/13/2024 12:57 AM CDT Chadd Toledo DO LAB POCT ORDERABLES - DEVICE Final Result Performing Organization Address [facility] de Phone Number [facility] [place] [address] * POCT glucose (03/12/2024 11:22 PM CDT) Glucose, POC 140 70 - 199 mg/dL Blood 03/12/2024 11:2 2 PM CDT 03/12/2024 11:22 PM CDT Chadd Toledo DO LAB POCT ORDERABLES - DEVICE Final Result Performing Organization Address [facility] de Phone Number [facility] [place] [address] * POCT glucose (03/12/2024 10:40 PM CDT) Glucose, POC 155 70 - 199 mg/dL Blood 03/12/2024 10:4 0 PM CDT 03/12/2024 10:40 PM CDT Chadd Toledo DO LAB POCT ORDERABLES - DEVICE Final Result Performing Organization Address [facility] de Phone Number [facility] [place] [address] * eGFR (03/12/2024 7:51 PM CDT) eGFR [...] Toledo DO LAB BLOOD ORDERABLES Final Result [facility] Department [place] [address] * aPTT (03/12/2024 7:51 PM CDT) aPTT [...] ORDERABLES Komal l Result Performing Organization Address [facility] de Phone Number [facility] [place] [address] * Protime-INR (03/12/2024 7:51 PM CDT) [facility] [address] [facility] PT 12.9 9.7 - 13.0 sec INR 1.19 0.90 - 1.20 [facility] Comment: Interpretive data Oral anticoagulant therapeutic ranges: Venous thromboembolism prophylaxis or treatment: 2.0-3.0 CARDIOLOGY Standard range: 2.0-3.0 High-intensity range: 2.5-3.5 Refer to indication-specific guidelines for appropriate target ranges for prosthetic heart valve replacement. Current interpretive data was last revised on 2019. Blood 03/12/2024 7:51 PM CDT 03/12/2024 8:33 PM CDT Jane Hoover MD LAB BLOOD ORDERABLES Komal l Result Performing Organization Address [facility] de Phone Number [facility] Department [place] [address] * (ABNORMAL) CBC without differential (03/12/2024 7:51 PM CDT) [facility] [address] WBC 4.8 3.8 - 9.9 K/cumm Hgb 10.5(L) 11.9 - 15.5 g/dL [facility] Hct 31.4(L) 35.6 - 45.5 % [facility] Plt 152 150 - 400 K/cumm [facility] MPV 9.1 9.1 - 12.3 fL [facility] RBC 3.79(L) 3.90 - 5.20 M/cumm [facility] MCV 82.8 81.3 - 96.4 fL [facility] MCH 27.7 27.1 - 33.3 pg [facility] MCHC 33.4 32.3 - 35.7 g/dL [facility] RDW CV 13.9 11.1 - 14.9 % [facility] RDW SD 41.3 35.7 - 48.1 fL [facility] NRBC abs 0.00 0.00 - 0.01 K/cumm [facility] Blood 03/12/2024 7:51 PM CDT 03/12/2024 8:19 PM CDT Chadd Elias Tre DO LAB BLOOD ORDERABLES Final Result Performing Organization Address City/[facility]/ZIP Co de Phone Number [facility] [place] [address] * Phosphorus (03/12/2024 7:51 PM CDT) Pathologist [facility] Phosphorus, pl 3.2 2.3 - 4.5 mg/dL Blood 03/12/2024 7:51 PM CDT 03/12/2024 8:19 PM CDT Chadd Toledo DO LAB BLOOD ORDERABLES Final Result Performing Organization Address [facility] Co de Phone Number [facility] [place] [address] * Magnesium (03/12/2024 7:51 PM CDT) [facility] [address] [facility] Magnesium 1.8 1.4 - 2.5 mg/dL Blood 03/12/2024 7:51 PM CDT 03/12/2024 8:19 PM CDT Chadd Elias Tre LAB BLOOD ORDERABLES Final Result Performing Organization Address City/[facility] Co de Phone Number [facility] [place] [address] * (ABNORMAL) Basic metabolic panel (03/12/2024 7:51 PM CDT) Pathologist [facility] Sodium 136 135 - 145 mmol/L Potassium, pl 4.0 3.3 - 4.9 mmol/L [facility] Chloride 98 97 - 110 mmol/L [facility] CO2 30 22 - 32 mmol/L [facility] Anion gap 8 2 - 15 mmol/L [facility] BUN 10 6 - 25 mg/dL [facility] Creatinine 0.69 0.60 - 1.10 mg/dL [facility] Glucose 224(H) 70 - 199 mg/dL [facility] Comment: Interpretive Data Fasting glucose >/= [...] 2022. Calcium 8.6 8.5 - 10.3 mg/dL [facility] Blood 03/12/2024 7:51 PM CDT 03/12/2024 8:19 PM CDT us Chadd Toledo DO LAB BLOOD ORDERABLES Final Result [facility] [place] [address] * (ABNORMAL) POCT glucose (03/12/2024 7:50 PM CDT) [facility] [address] Glucose, POC 228(H) 70 - 199 mg/dL Blood 03/12/2024 7:50 PM CDT 03/12/2024 7:50 PM CDT Chadd Toledo DO LAB POCT ORDERABLES - DEVICE Final Result [facility] [place] [address] * POCT glucose (03/12/2024 5:58 PM CDT) Glucose, POC 167 70 - 199 mg/dL Blood 03/12/2024 5:58 PM CDT 03/12/2024 5:58 PM CDT Chaddtorres Toledo DO LAB POCT ORDERABLES - DEVICE Final Result Performing Organization Address [facility] Co de Phone Number [facility] [place] [address] * (ABNORMAL) POCT glucose (03/12/2024 5:01 PM CDT) Glucose, POC 221(H) 70 - 199 mg/dL Blood 03/12/2024 5:01 PM CDT 03/12/2024 5:01 PM CDT Chaddtorres Griffin Efetorres DO LAB POCT ORDERABLES - DEVICE Final Result Performing Organization Address [facility] Co de Phone Number [facility] [place] [address] * (ABNORMAL) POCT glucose (03/12/2024 4:19 PM CDT) Glucose, POC 215(H) 70 - 199 mg/dL Blood 03/12/2024 4:19 PM CDT 03/12/2024 4:19 PM CDT Chaddtorres Toledo DO LAB POCT ORDERABLES - DEVICE Final Result Performing Organization Address [facility] Co de Phone Number [facility] [place] [address] * (ABNORMAL) POCT glucose (03/12/2024 3:08 PM CDT) Glucose, POC 278(H) 70 - 199 mg/dL Blood 03/12/2024 3:08 PM CDT 03/12/2024 3:08 PM CDT us Chadd Toledo DO LAB POCT ORDERABLES - DEVICE Final Result [facility] Department [place] [address] * Critical Care (03/12/2024 2:30 PM CDT) [...] plan with the ICU team and other medical/marketing regional consultant staff, making frequent assessments and decisions [...] Glucose, POC 161 70 - 199 mg/dL [facility] Blood 03/12/2024 1:06 PM CDT 03/12/2024 1:06 PM CDT us Chadd Toledo DO LAB POCT ORDERABLES - DEVICE Final Result [facility] Department [place] [address] * POCT glucose (03/12/2024 11:21 AM CDT) Glucose, POC 116 70 - 199 mg/dL [facility] Blood 03/12/2024 11:2 1 AM CDT 03/12/2024 11:21 AM CDT us Chadd Elias Tre DO LAB POCT ORDERABLES - DEVICE Final Result Performing Organization Address City/[facility]/ZIP Co de Phone Number [facility] [place] [address] * POCT glucose (03/12/2024 9:15 AM CDT) Glucose, POC 114 70 - 199 mg/dL Blood 03/12/2024 9:15 AM CDT 03/12/2024 9:15 AM CDT Chadd Elias Efetorres DO LAB POCT ORDERABLES - DEVICE Final Result Performing Organization Address City/[facility]/ZIP Co de Phone Number [facility] [place] [address] * POCT glucose (03/12/2024 7:11 AM CDT) Glucose, POC 127 70 - 199 mg/dL Blood 03/12/2024 7:11 AM CDT 03/12/2024 7:11 AM CDT Chadd Toledo DO LAB POCT ORDERABLES - DEVICE Final Result Performing Organization Address [facility] de Phone Number [facility] [place] [address] * Lidocaine level (03/12/2024 6:17 AM CDT) Lidocaine (Xylocaine) 1.7 1.5 - 5.0 mcg/mL Blood 03/12/2024 6:17 AM CDT 03/12/2024 6:44 AM CDT Narrative [facility] - 03/12/2024 8:45 AM CDT Draw 24 hours after infusion started. Chadd Toledo DO LAB BLOOD ORDERABLES Final Result Performing Organization Address [facility] Co de Phone Number [facility] [place] [address] * POCT glucose (03/12/2024 6:16 AM CDT) Glucose, POC 126 70 - 199 mg/dL Blood 03/12/2024 6:16 AM CDT 03/12/2024 6:16 AM CDT Chadd Toledo DO LAB POCT ORDERABLES - DEVICE Final Result Performing Organization Address [facility] [place] [address] * POCT glucose (03/12/2024 5:05 AM CDT) Glucose, POC 146 70 - 199 mg/dL Blood 03/12/2024 5:05 AM CDT 03/12/2024 5:05 AM CDT us Chadd Toledo DO LAB POCT ORDERABLES - DEVICE Final Result Performing Organization Address City/[facility] Co de Phone Number [facility] [place] [address] * POCT glucose (03/12/2024 4:19 AM CDT) Glucose, POC 155 70 - 199 mg/dL Blood 03/12/2024 4:19 AM CDT 03/12/2024 4:19 AM CDT Chadd Toledo DO LAB POCT ORDERABLES - DEVICE Final Result Performing Organization Address [facility] [place] [address] * POCT glucose (03/12/2024 3:10 AM CDT) Glucose, POC 195 70 - 199 mg/dL Blood 03/12/2024 3:10 AM CDT 03/12/2024 3:10 AM CDT Chadd Toledo DO LAB POCT ORDERABLES - DEVICE Final Result Performing Organization Address [facility] Co de Phone Number [facility] [place] [address] * POCT glucose (03/12/2024 1:07 AM CDT) Glucose, POC 165 70 - 199 mg/dL Blood 03/12/2024 1:07 AM CDT 03/12/2024 1:07 AM CDT us Chadd Toledo DO LAB POCT ORDERABLES - DEVICE Final Result Performing Organization Address City/[facility] Co de Phone Number [facility] [place] [address] * POCT glucose (03/12/2024 12:28 AM CDT) Glucose, POC 181 70 - 199 mg/dL Blood 03/12/2024 12:2 8 AM CDT 03/12/2024 12:28 AM CDT Chadd Toledo DO LAB POCT ORDERABLES - DEVICE Final Result Performing Organization Address [facility] Co de Phone Number [facility] [place] [address] * POCT glucose (03/11/2024 11:04 PM CDT) Glucose, POC 172 70 - 199 mg/dL Blood 03/11/2024 11:0 4 PM CDT 03/11/2024 11:04 PM CDT Chadd Toledo DO LAB POCT ORDERABLES - DEVICE Final Result Performing Organization Address [facility] de Phone Number [facility] [place] [address] * (ABNORMAL) POCT glucose (03/11/2024 10:08 PM CDT) Glucose, POC 208(H) 70 - 199 mg/dL Blood 03/11/2024 10:0 8 PM CDT 03/11/2024 10:08 PM CDT Chadd Toledo DO LAB POCT ORDERABLES - DEVICE Final Result Performing Organization Address [facility] de Phone Number [facility] [place] [address] * (ABNORMAL) POCT glucose (03/11/2024 9:06 PM CDT) Glucose, POC 245(H) 70 - 199 mg/dL Blood 03/11/2024 9:06 PM CDT 03/11/2024 9:06 PM CDT Chadd Toledo DO LAB POCT ORDERABLES - DEVICE Final Result Performing Organization Address [facility] [place] [address] * Type and screen (03/11/2024 9:03 PM CDT) Pathologist [facility] Anselmo, indirect Negative ABO Rh O Negative [facility] Blood 03/11/2024 9:03 PM CDT 03/11/2024 9:16 PM CDT Narrative [facility] - 03/11/2024 10:16 PM CDT Has the patient had Daratumumab or Isatuximab in the past 6 months?->Unknown Chadd Toledo DO LAB BLOOD BANK TEST O RDERABLES Final Result Performing Organization Address [facility] de Phone Number [facility] [place] [address] * (ABNORMAL) Hemoglobin A1c (03/11/2024 8:59 PM CDT) Pathologist [facility] Hgb A1C 8.9(H) 4.0 - 5.6 % Estimated Average Glucose 209 mg/dL [facility] Comment: The ADA recommends reporting an [...] BLOOD ORDERABLES Final Result AJIT TRAN [facility] Department [place] [address] * eGFR (03/11/2024 8:59 PM CDT) [facility] [address] eGFR >90 >=60 mL/min/1. 73 m2 Comment: [...] BLOOD ORDERABLES Final Result AJIT TRAN [facility] Department [place] [address] * Differential, auto (03/11/2024 8:59 PM CDT) [facility] [address] Neutrophil abs 3.5 1.5 - 6.5 K/cumm Imm gran abs 0.0 0.0 - 0.1 K/cumm [facility] Lymphocyte abs 1.1 0.8 - 3.3 K/cumm [facility] Monocyte abs 0.4 0.2 - 0.8 K/cumm [facility] Eosinophil abs 0.1 0.0 - 0.5 K/cumm [facility] Basophil abs 0.0 0.0 - 0.1 K/cumm [facility] Neutrophil pct 69.6 % [facility] Comment: Interpretive Data Percent cell count reference ranges are not reported, since discordance with absolute values may lead to misinterpretation of CBC data. Current Interpretive Data was last revised on 2017. Imm gran pct 0.4 % [facility] Comment: Interpretive Data Percent cell count reference ranges are not reported, since discordance with absolute values may lead to misinterpretation of CBC data. Current Interpretive Data was last revised on 2017. Lymphocyte pct 20.9 % [facility] Comment: Interpretive Data Percent cell count reference ranges are not reported, since discordance with absolute values may lead to misinterpretation of CBC data. Current Interpretive Data was last revised on 2017. Monocyte pct 6.9 % [facility] Comment: Interpretive Data Percent cell count reference ranges are not reported, since discordance with absolute values may lead to misinterpretation of CBC data. Current Interpretive Data was last revised on 2017. Eosinophil pct 1.6 % [facility] Comment: Interpretive Data Percent cell count reference ranges are not reported, since discordance with absolute values may lead to misinterpretation of CBC data. Current Interpretive Data was last revised on 2017. Basophil pct 0.6 % [facility] Comment: Interpretive Data Percent cell count reference ranges are not reported, since discordance with absolute values may lead to misinterpretation of CBC data. Current Interpretive Data was last revised on 2017. Blood 03/11/2024 8:59 PM CDT 03/11/2024 9:18 PM CDT us Chadd Toledo DO LAB BLOOD ORDERABLES Final Result [facility] Department [place] [address] * (ABNORMAL) CBC with auto differential (03/11/2024 8:59 PM CDT) [facility] [address] WBC 5.1 3.8 - 9.9 K/cumm Hgb 10.2(L) 11.9 - 15.5 g/dL [facility] Hct 30.6(L) 35.6 - 45.5 % [facility] Plt 145(L) 150 - 400 K/cumm [facility] MPV 8.9(L) 9.1 - 12.3 fL [facility] RBC 3.66(L) 3.90 - 5.20 M/cumm [facility] MCV 83.6 81.3 - 96.4 fL [facility] MCH 27.9 27.1 - 33.3 pg [facility] MCHC 33.3 32.3 - 35.7 g/dL [facility] RDW CV 13.6 11.1 - 14.9 % [facility] RDW SD 41.1 35.7 - 48.1 fL [facility] NRBC abs 0.00 0.00 - 0.01 K/cumm [facility] Blood 03/11/2024 8:59 PM CDT 03/11/2024 9:18 PM CDT Chadd Toledo DO LAB BLOOD ORDERABLES Final Result Performing Organization Address City/[facility]/ZIP Co de Phone Number [facility] [place] [address] * Phosphorus (03/11/2024 8:59 PM CDT) [facility] [address] Phosphorus, pl 3.4 2.3 - 4.5 mg/dL Blood 03/11/2024 8:59 PM CDT 03/11/2024 9:18 PM CDT Chadd Toledo DO LAB BLOOD ORDERABLES Final Result [facility] Department [place] [address] * Magnesium (03/11/2024 8:59 PM CDT) [facility] [address] Magnesium 1.7 1.4 - 2.5 mg/dL Blood 03/11/2024 8:59 PM CDT 03/11/2024 9:18 PM CDT Chadd Toledo DO LAB BLOOD ORDERABLES Final Result Performing Organization Address [facility] Co de Phone Number [facility] [place] [address] * (ABNORMAL) Basic metabolic panel (03/11/2024 8:59 PM CDT) [facility] [address] Sodium 137 135 - 145 mmol/L Potassium, pl 4.0 3.3 - 4.9 mmol/L [facility] Chloride 102 97 - 110 mmol/L [facility] CO2 28 22 - 32 mmol/L [facility] Anion gap 7 2 - 15 mmol/L [facility] BUN 11 6 - 25 mg/dL [facility] Creatinine 0.55(L) 0.60 - 1.10 mg/dL [facility] Glucose 239(H) 70 - 199 mg/dL [facility] Comment: Interpretive Data Fasting glucose >/= [...] 2022. Calcium 8.4(L) 8.5 - 10.3 mg/dL [facility] Blood 03/11/2024 8:59 PM CDT 03/11/2024 9:18 PM CDT Chadd Toledo DO LAB BLOOD ORDERABLES Final Result Performing Organization Address [facility] Co de Phone Number AJIT [facility] [place] [address] * (ABNORMAL) POCT glucose (03/11/2024 7:53 PM CDT) Glucose, POC 242(H) 70 - 199 mg/dL Comment:Glu2: RN/MD Notified Glucose comment 1 Glu2: RN/MD Notified [facility] Blood 03/11/2024 7:53 PM CDT 03/11/2024 7:53 PM CDT Chaddtorres Griffin Efetorres CARR LAB POCT ORDERABLES - DEVICE Final Result Performing Organization Address [facility] Phone Number [facility] [place] [address] * XR Shoulder Right 2 or More [...] - DEVICE Final Result Performing Organization Address City/State/[facility] Co sc Phone Number [facility] Department [place] [address] * Critical Care (03/11/2024 6:42 PM CDT) [...] plan with the ICU team and other medical/marketing regional consultant staff, making frequent assessments and decisions [...] - DEVICE Final Result Performing Organization Address City/State/[facility] Co de Phone Number [facility] Department [place] [address] * VT INSJ NON-TUNNELED CENTRAL VENOUS CATH AGE 5 YR/> (03/11/2024 5:11 PM CDT) Narrative Eloise Knapp MD - 03/11/2024 5:11 PM CDT Inge Pepper PA ? 03/11/2024 ??6:28 PM Central Line Insertion Date/Time: 03/11/2024 5:11 PM Performed by: Inge Pepper PA Authorized by: Inge Pepper PA ?? [place] Protocol: RN Notified of Procedure: yes ?? [...] matched to patient identification: n/a ?? Responsible constitution party for transporting specimen(s) to lab determined: n/a ?? us Inge SIFUENTES IN CLINIC/BEDSIDE ORDERA BLES Final Result * VT ARTL CATHJ/CANNULJ MNTR/TRANSFUSION SPX PRQ (03/11/2024 5:09 PM CDT) Narrative Eloise Knapp MD - 03/11/2024 5:09 PM CDT Inge Pepper PA ? 03/11/2024 ??5:11 PM Arterial Line Insertion Date/Time: 03/11/2024 5:09 PM Performed by: Inge Pepper PA Authorized by: Inge Pepper PA ?? [place] Protocol: RN Notified of Procedure: yes ?? [...] matched to patient identification: n/a ?? Responsible constitution party for transporting specimen(s) to lab determined: n/a ?? Inge SIFUENTES IV THERAPY ORDERABLES Fi nal Result * POCT glucose (03/11/2024 3:12 PM CDT) Glucose, POC 159 70 - 199 mg/dL Blood 03/11/2024 3:12 PM CDT 03/11/2024 3:12 PM CDT Chadd Toledo DO LAB POCT ORDERABLES - DEVICE Final Result Performing Organization Address [facility] Co de Phone Number AJIT [facility] [place] [address] * (ABNORMAL) CRP (acute phase) (03/11/2024 3:10 PM CDT) CRP 48.6(H) <=10.0 mg/L Blood 03/11/2024 3:10 PM CDT 03/11/2024 3:29 PM CDT Chadd Toledo DO LAB BLOOD ORDERABLES Final Result Performing Organization Address [facility] de Phone Number [facility] [place] [address] * Lactate (03/11/2024 3:10 PM CDT) Lactate 1.4 0.7 - 2.0 mmol/L Blood 03/11/2024 3:10 PM CDT 03/11/2024 3:29 PM CDT Chadd Toledo DO LAB BLOOD ORDERABLES Final Result Performing Organization Address [facility] de Phone Number AJIT [facility] Department [place] [address] * POCT glucose (03/11/2024 1:22 PM CDT) Glucose, POC 152 70 - 199 mg/dL Blood 03/11/2024 1:22 PM CDT 03/11/2024 1:22 PM CDT Chadd Toledo DO LAB POCT ORDERABLES - DEVICE Final Result Performing Organization Address [facility] Co de Phone Number [facility] [place] [address] * POCT glucose (03/11/2024 11:57 AM CDT) Glucose, POC 122 70 - 199 mg/dL Blood 03/11/2024 11:5 7 AM CDT 03/11/2024 11:57 AM CDT Chadd Toledo DO LAB POCT ORDERABLES - DEVICE Final Result Performing Organization Address [facility] [place] [address] * POCT glucose (03/11/2024 9:04 AM CDT) Glucose, POC 135 70 - 199 mg/dL Blood 03/11/2024 9:04 AM CDT 03/11/2024 9:04 AM CDT us Chadd Toledo DO LAB POCT ORDERABLES - DEVICE Final Result Performing Organization Address City/[facility] [place] [address] * POCT glucose (03/11/2024 7:18 AM CDT) Glucose, POC 98 70 - 199 mg/dL Blood 03/11/2024 7:18 AM CDT 03/11/2024 7:18 AM CDT Chadd Toledo DO LAB POCT ORDERABLES - DEVICE Final Result Performing Organization Address City/[facility] [place] [address] * XR Chest 1 View (03/11/2024 6:40 [...] Final Result Performing Organization Address [facility] de Phone Number [facility] [place] [address] * POCT glucose (03/11/2024 5:16 AM CDT) Glucose, POC 84 70 - 199 mg/dL Blood 03/11/2024 5:16 AM CDT 03/11/2024 5:16 AM CDT Chadd Toledo DO LAB POCT ORDERABLES - DEVICE Final Result Performing Organization Address [facility] de Phone Number [facility] [place] [address] * POCT glucose (03/11/2024 3:00 AM CDT) Glucose, POC 102 70 - 199 mg/dL Blood 03/11/2024 3:00 AM CDT 03/11/2024 3:00 AM CDT Chadd Toledo DO LAB POCT ORDERABLES - DEVICE Final Result Performing Organization Address [facility] de Phone Number [facility] [place] [address] * POCT glucose (03/11/2024 1:13 AM CDT) Glucose, POC 117 70 - 199 mg/dL Blood 03/11/2024 1:13 AM CDT 03/11/2024 1:13 AM CDT Chadd Toledo DO LAB POCT ORDERABLES - DEVICE Final Result [facility] Department [place] [address] * Critical Care (03/10/2024 11:48 PM CDT) [...] plan with the ICU team and other medical/marketing regional consultant staff, making frequent assessments and decisions [...] Final Result Performing Organization Address [facility] de Phone Number [facility] [place] [address] * POCT glucose (03/10/2024 9:02 PM CDT) [facility] [address] [facility] Glucose, POC 174 70 - 199 mg/dL Blood 03/10/2024 9:02 PM CDT 03/10/2024 9:02 PM CDT Result [facility] Chaddtorres Griffin Tre DO LAB POCT ORDERABLES - DEVICE Final Result Performing Organization Address [facility] de Phone Number AJIT [facility] [place] [address] * eGFR (03/10/2024 7:44 PM CDT) [facility] [address] eGFR >90 >=60 mL/min/1. 73 m2 Comment: [...] BLOOD ORDERABLES Final Result Performing Organization Address City/[facility]/ZIP Co de Phone Number [facility] [place] [address] * Phosphorus (03/10/2024 7:44 PM CDT) Phosphorus, pl 2.7 2.3 - 4.5 mg/dL Blood 03/10/2024 7:44 PM CDT 03/10/2024 8:00 PM CDT Chadd Toledo DO LAB BLOOD ORDERABLES Final Result Performing Organization Address [facility] Co de Phone Number [facility] Department [place] [address] * Magnesium (03/10/2024 7:44 PM CDT) Magnesium 2.0 1.4 - 2.5 mg/dL Blood 03/10/2024 7:44 PM CDT 03/10/2024 8:00 PM CDT Chadd Toledo DO LAB BLOOD ORDERABLES Final Result Performing Organization Address City/[facility] Co de Phone Number [facility] [place] [address] * (ABNORMAL) Basic metabolic panel (03/10/2024 7:44 PM CDT) [facility] [address] Sodium 138 135 - 145 mmol/L Potassium, pl 4.3 3.3 - 4.9 mmol/L [facility] Chloride 104 97 - 110 mmol/L [facility] CO2 27 22 - 32 mmol/L [facility] Anion gap 7 2 - 15 mmol/L [facility] BUN 14 6 - 25 mg/dL [facility] Creatinine 0.49(L) 0.60 - 1.10 mg/dL [facility] Glucose 148 70 - 199 mg/dL [facility] Comment: Interpretive Data Fasting glucose >/= [...] 2022. Calcium 7.9(L) 8.5 - 10.3 mg/dL [facility] Blood 03/10/2024 7:44 PM CDT 03/10/2024 8:00 PM CDT us Chadd Toledo DO LAB BLOOD ORDERABLES Final Result [facility] Department [place] [address] * (ABNORMAL) CBC without differential (03/10/2024 7:44 PM CDT) [facility] [address] WBC 4.6 3.8 - 9.9 K/cumm Hgb 10.3(L) 11.9 - 15.5 g/dL [facility] Hct 31.5(L) 35.6 - 45.5 % [facility] Plt 110(L) 150 - 400 K/cumm [facility] MPV 8.7(L) 9.1 - 12.3 fL [facility] RBC 3.71(L) 3.90 - 5.20 M/cumm [facility] MCV 84.9 81.3 - 96.4 fL [facility] MCH 27.8 27.1 - 33.3 pg [facility] MCHC 32.7 32.3 - 35.7 g/dL [facility] RDW CV 14.0 11.1 - 14.9 % [facility] RDW SD 43.5 35.7 - 48.1 fL [facility] NRBC abs 0.00 0.00 - 0.01 K/cumm [facility] Blood 03/10/2024 7:44 PM CDT 03/10/2024 8:00 PM CDT Chadd Toledo DO LAB BLOOD ORDERABLES Final Result Performing Organization Address [facility] de Phone Number [facility] Department [place] [address] * POCT glucose (03/10/2024 7:10 PM CDT) Glucose, POC 148 70 - 199 mg/dL Blood 03/10/2024 7:10 PM CDT 03/10/2024 7:10 PM CDT Chadd DE LA FUENTE POCT ORDERABLES - DEVICE Final Result Performing Organization Address [facility] de Phone Number [facility] [place] [address] * POCT glucose (03/10/2024 5:08 PM CDT) Glucose, POC 113 70 - 199 mg/dL Blood 03/10/2024 5:08 PM CDT 03/10/2024 5:08 PM CDT Chadd Toledo DO LAB POCT ORDERABLES - DEVICE Final Result Performing Organization Address [facility]/[place] [address] * POCT glucose (03/10/2024 4:03 PM CDT) Glucose, POC 109 70 - 199 mg/dL Blood 03/10/2024 4:03 PM CDT 03/10/2024 4:03 PM CDT Chadd Toledo DO LAB POCT ORDERABLES - DEVICE Final Result Performing Organization Address [facility] [place] [address] * POCT glucose (03/10/2024 3:12 PM CDT) Glucose, POC 123 70 - 199 mg/dL Blood 03/10/2024 3:12 PM CDT 03/10/2024 3:12 PM CDT Chadd Toledo DO LAB POCT ORDERABLES - DEVICE Final Result Performing Organization Address City/[facility] Co de Phone Number [facility] [place] [address] * POCT glucose (03/10/2024 2:05 PM CDT) Glucose, POC 110 70 - 199 mg/dL Blood 03/10/2024 2:05 PM CDT 03/10/2024 2:05 PM CDT Chadd Toledo DO LAB POCT ORDERABLES - DEVICE Final Result Performing Organization Address City/[facility] [place] [address] * eGFR (03/10/2024 12:13 PM CDT) eGFR [...] SIFUENTES LAB BLOOD ORDERABLES F inal Result [facility] Department [place] [address] * (ABNORMAL) Basic metabolic panel (03/10/2024 12:13 PM CDT) Sodium 138 135 - 145 mmol/L Potassium, pl 3.3 3.3 - 4.9 mmol/L [facility] Chloride 105 97 - 110 mmol/L [facility] CO2 26 22 - 32 mmol/L [facility] Anion gap 7 2 - 15 mmol/L [facility] BUN 17 6 - 25 mg/dL [facility] Creatinine 0.49(L) 0.60 - 1.10 mg/dL [facility] Glucose 102 70 - 199 mg/dL [facility] Comment: Interpretive Data Fasting glucose >/= [...] 2022. Calcium 7.5(L) 8.5 - 10.3 mg/dL [facility] Blood 03/10/2024 12:1 3 PM CDT 03/10/2024 12:26 PM CDT Brooke SIFUENTES LAB BLOOD ORDERABLES F inal Result [facility] [place] [address] * POCT glucose (03/10/2024 12:07 PM CDT) Glucose, POC 112 70 - 199 mg/dL Blood 03/10/2024 12:0 7 PM CDT 03/10/2024 12:07 PM CDT us Chadd Toledo DO LAB POCT ORDERABLES - DEVICE Final Result [facility] [place] [address] * POCT glucose (03/10/2024 11:07 AM CDT) Glucose, POC 151 70 - 199 mg/dL Blood 03/10/2024 11:0 7 AM CDT 03/10/2024 11:07 AM CDT Chadd Toledo DO LAB POCT ORDERABLES - DEVICE Final Result Performing Organization Address [facility] [place] [address] * POCT glucose (03/10/2024 10:17 AM CDT) Glucose, POC 111 70 - 199 mg/dL Blood 03/10/2024 10:1 7 AM CDT 03/10/2024 10:17 AM CDT Chadd Toledo DO LAB POCT ORDERABLES - DEVICE Final Result Performing Organization Address [facility] de Phone Number [facility] [place] [address] * POCT glucose (03/10/2024 9:25 AM CDT) Glucose, POC 116 70 - 199 mg/dL Blood 03/10/2024 9:25 AM CDT 03/10/2024 9:25 AM CDT Chadd Toledo DO LAB POCT ORDERABLES - DEVICE Final Result Performing Organization Address [facility] [place] [address] * Critical Care (03/10/2024 8:55 AM CDT) Narrative lEoise Knapp MD - 03/10/2024 8:55 AM CDT [...] plan with the ICU team and other medical/marketing regional consultant staff, making frequent assessments and decisions [...] LAB POCT ORDERABLES - DEVICE Final Result [facility] Department [place] [address] * POCT glucose (03/10/2024 7:21 AM CDT) Glucose, POC 128 70 - 199 mg/dL Blood 03/10/2024 7:21 AM CDT 03/10/2024 7:21 AM CDT Chadd Toledo DO LAB POCT ORDERABLES - DEVICE Final Result Performing Organization Address [facility] Co de Phone Number [facility] [place] [address] * POCT glucose (03/10/2024 6:10 AM CDT) Glucose, POC 120 70 - 199 mg/dL Blood 03/10/2024 6:10 AM CDT 03/10/2024 6:10 AM CDT Chadd Toledo DO LAB POCT ORDERABLES - DEVICE Final Result Performing Organization Address [facility] de Phone Number AJIT [facility] [place] [address] * POCT glucose (03/10/2024 4:16 AM CDT) Glucose, POC 127 70 - 199 mg/dL Blood 03/10/2024 4:16 AM CDT 03/10/2024 4:16 AM CDT Chadd Toledo DO LAB POCT ORDERABLES - DEVICE Final Result Performing Organization Address [facility] Co de Phone Number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
--- OUTSIDE RECORDS SUMMARY | 2024-08-23 19:09 | XMS_ITS | Encounter Summary ---
Author Organization [facility] Address [address] [place] [address] Phone Care Team Providers Care Fire Protection Specialist Name Role Phone Nayana Garber Primary Care Provider [phone] No, Physician Primary Care Provider [phone] Reason for Referral * Consultation (Routine) - Closed Specialty Diagnoses / Procedures Referred By Rebekah t Referred To Contact Neurosurgery Diagnoses S/P cervical spinal fusion Marcio Tapia MD [address] [place] [address] Phone: tel: fax: [facility] (All Locations) Referral ID Status Reason Start Date Expiration Date V isits Requested Visits Authorized [id number] Closed Specialty Services Required 03/25/2024 04/24/2025 1 1 Question Answer Please select the performing region: [facility] (All Locations) [[id number]] # of visits: 1 Encounter Details Date Type Department Care Team (Late st Contact Info) Description 03/25/2024 Telephone [facility] Neurosurgery [facility] [address] [place] [address] Marcio Tapia MD [address] [place] [address] Social History Tobacco Use Types Packs/Day Years Used Date Smoking Tobacco: Every Day Cigarettes [facility] Utilities Answer Date Recorded In the [...] often do you attend chur ch or christian services? 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 Reason for visit: Post Op (surgery within last 90 days) Date: 05/07/24 Time: 1pm Location: [facility] ([facility]) Provider Dr. Tapia Routed: ANITA Tapia [...] external infection. Source: [facility] - [facility] [place], [facility]. 07/06/2017 Ring Surveillance 03/29/2024 03/29/2024 04/18/2024 12:36 PM CDT documented as of this encounter Care Teams Fire Protection Specialist Relationship Specialty Start Date End Date Nayana Garber PA [address] [place] [id number] PCP - General Emergency Medicine 06/18/23 04/09/24 No, Physician PCP - General 04/10/24 documented as of this encounter
--- OUTSIDE RECORDS SUMMARY | 2024-08-23 19:10 | XMS_ITS | Encounter Summary ---
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 Route / Site Other Information 03/09/24342 Given 4 Units subcutaneous Left Lower Abdomen Performed by: Brionna Pitt RN Scanned Package: 0996-3621-79 droPERidol (INAPSINE) injection 1.25 mg [[id number]] Ordering Provider: Ho An MD Status: Completed [...] 03/09/24426 Given 1.25 mg intravenous Performed by: Oidlia Vega RN Scanned Package: 2059-1417-88 sodium chloride 0.9% flush 0.5-20 mL [[id number]] Ordering Provider: Ericka Estes MD Status: Verified Ordered On: 03/09/24608 Start: 03/09/24644 Ordered Dose (Remaining/Total): 0.5-20 mL (--/--) Route: intra-catheter Frequency: Every 8 hours scheduled Ordered Rate/Order Duration: -- / -- Admin Instructions: Flush volume based on line type and size. Timestamps Action Dose Route Other Information 04/01/24 0615 Given 10 mL intra-catheter Performed by: Jose Arechiga RN Scanned Package: [id number] sodium chloride 0.9% flush 0.5-20 mL [[id number]] Ordering Provider: Ericka Estes MD Status: Verified [...] Performed by: Isha Cox RN Scanned Package: [id number] Carrier Fluids for Secondary Infusion - 0.9% Sodium Chloride [[id number]] Ordering Provider: Ericka Estes MD Status: Dispensed [...] (1 %) preservative free injection 200 mg [[id number]] Ordering Provider: Varun Song MD Status: Completed (Past End Date/Time) Ordered On: 03/09/24 1240 Starts/Ends: 03/09/24 1315 - 03/09/24 1312 Ordered Dose (Remaining/Total): 20 mL (0/1) Route: infiltration Frequency: Once Ordered Rate/Order Duration: -- / -- Timestamps Action Dose Route Other Information 03/09/24 1312 Given 200 mg infiltration Performed by: Keyonna Hernandez RN HYDROmorphone (DILAUDID) injection 0.5 mg [[id number]] Ordering Provider: Varun Song MD Status: Completed [...] halo placement droPERidol (INAPSINE) injection 1.25 mg [[id number]] Ordering Provider: Varun Song MD Status: Dispensed (Past End Date/Time) Ordered On: 03/09/24 133 Starts/Ends: 03/09/24 141 - 03/10/24 141 Ordered Dose (Remaining/Total): 1.25 mg (1/1) Route: intravenous Frequency: Once Ordered Rate/Order Duration: -- / -- Admin Instructions: If administered IV push, administer over 5 min for adults. (No admins scheduled or recorded for this medication) HYDROmorphone (DILAUDID) injection 0.5 mg [[id number]] Ordering Provider: Varun Song MD Status: Completed [...] halo placement methocarbamoL (ROBAXIN) tablet 500 mg [[id number]] Ordering Provider: Bernardino Gleason MD Status: Completed (Past End Date/Time) Ordered On: 03/09/242042 Starts/Ends: 03/09/242114 - 03/09/242122 Ordered Dose (Remaining/Total): 500 mg (0/1) Route: oral Frequency: Once Ordered Rate/Order Duration: -- / -- Timestamps Action Dose Route Other Information 03/09/242122 Given 500 mg oral Performed by: Haley Varner RN Scanned Package: 17477-420-50 magnesium sulfate 2 g/50 mL in water (premix) 2 g [[id number]] Ordering Provider: Bernardino Gleason MD Status: Completed (Past End Date/Time) Ordered On: 03/09/242134 Starts/Ends: 03/09/242214 - 03/09/242326 Ordered Dose (Remaining/Total): 2 g (0/1) Route: intravenous Frequency: Once Ordered Rate/Order Duration: -- / 60 Minutes Timestamps Action Dose / Duration Route Other Information 03/09/242226 New Bag 2 g 60 Minutes intravenous Performed by: Haley Varner RN Scanned Package: 90219-539-67 potassium chloride (KLOR-CON) packet 20 mEq [[id number]] Ordering Provider: Bernardino Gleason MD Status: Completed [...] Performed by: Haley Varner RN Scanned Package: [address]-2 HYDROmorphone (DILAUDID) injection 0.5 mg [[id number]] Ordering Provider: Bernardino Gleason MD Status: Completed (Past End Date/Time) Ordered On: 03/10/24 0507 Starts/Ends: 03/10/24 0545 - 03/10/24 0516 Ordered Dose (Remaining/Total): 0.5 mg (0/1) Route: intravenous Frequency: Once Ordered Rate/Order Duration: -- / 2 Minutes Timestamps Action Dose / Duration Route Other Information 03/10/24 0514 Given 0.5 mg 2 Minutes intravenous Performed by: Haley Varner RN Scanned Package: 00745-705-59 magnesium sulfate 2 g/50 mL in water (premix) 2 g [[id number]] Ordering Provider: Yunier Leach MD Status: Completed [...] Performed by: Darius Ghosh RN Scanned Package: 69569-996-31 potassium chloride (KLOR-CON) packet 40 mEq [[id number]] Ordering Provider: Yunier Leach MD Status: Completed [...] Performed by: Janett Ledezma RN Scanned Package: [address]-6, [address]-4 sodium chloride 0.9% bolus 1,000 mL [[id number]] Ordering Provider: Eloise Knapp MD Status: Completed [...] Performed by: Soco Schwarz RN Scanned Package: 9220-9305-35, 1486-8182-18 magnesium sulfate 2 g/50 mL in water (premix) 2 g [[id number]] Ordering Provider: Jane Hoover MD Status: Completed [...] Performed by: Janett Ledezma RN Scanned Package: 67602-389-28 senna-docusate (PERICOLACE) 8.6-50 mg per tablet 1 tablet [[id number]] Ordering Provider: Ericka Estes MD Status: Dispensed Ordered On: 03/12/24 0954 Start: 03/12/24 2100 Ordered Dose (Remaining/Total): 1 tablet (--/--) Route: oral Frequency: 2 times daily Ordered Rate/Order Duration: -- / -- Timestamps Action Dose Route Other Information 04/02/24 0915 Given 1 tablet oral Performed by: Alyx Ma RN Scanned Package: 9281-2489-71 lidocaine (PF) (XYLOCAINE) 10 mg/mL (1 %) preservative free injection 10-20 mg [[id number]] Ordering Provider: Jane Hoover MD Status: Completed [...] PICC sodium chloride 0.9% flush 5-10 mL [[id number]] Ordering Provider: Ericka Estes MD Status: Verified [...] JULISSA sodium chloride 0.9% flush 5-20 mL [[id number]] Ordering Provider: Ericka Estes MD Status: Verified Ordered On: 03/12/241831 Start: 03/12/241827 Ordered Dose (Remaining/Total): 5-20 mL (--/--) Route: intra-catheter Frequency: As needed Ordered Rate/Order Duration: -- / -- Admin Instructions: Flush volume based on line type, size, and protocol. (No admins scheduled or recorded for this medication) sodium chloride 0.9% flush 5-10 mL [[id number]] Ordering Provider: Ericka Estes MD Status: Verified [...] RN sodium chloride 0.9% flush 5-20 mL [[id number]] Ordering Provider: Ericka Estes MD Status: Verified Ordered On: 03/12/241831 Start: 03/12/241830 Ordered Dose (Remaining/Total): 5-20 mL (--/--) Route: intra-catheter Frequency: As needed Ordered Rate/Order Duration: -- / -- Admin Instructions: Flush volume based on line type, size, and protocol. (No admins scheduled or recorded for this medication) acetaminophen (TYLENOL) tablet 1,000 mg [[id number]] Ordering Provider: Ericka Estes MD Status: Dispensed Ordered On: 03/13/24 112 Start: 03/13/24 1200 Ordered Dose (Remaining/Total): 1,000 mg (--/--) Route: oral Frequency: Every 6 hours scheduled Ordered Rate/Order Duration: -- / -- Timestamps Action Dose Route Other Information 04/02/24 1156 Given 1,000 mg oral Performed by: Alyx Ma RN Scanned Package: 6654-8512-56, 2831-2564-44 magnesium sulfate 2 g/50 mL in water (premix) 2 g [[id number]] Ordering Provider: Johnny Corcoran MD Status: Completed (Past End Date/Time) Ordered On: 03/13/24 112 Starts/Ends: 03/13/24 1200 - 03/13/24 1306 Ordered Dose (Remaining/Total): 2 g (0/1) Route: intravenous Frequency: Once Ordered Rate/Order Duration: -- / 60 Minutes Timestamps Action Dose / Duration Route Other Information 03/13/24 1206 New Bag 2 g 60 Minutes intravenous Performed by: Kenyatta Dumont RN Scanned Package: 07873-737-30 ceFAZolin (ANCEF) 1 gram/10 mL in sterile water (premix) 1,000 mg [[id number]] Ordering Provider: Ericka Estes MD Status: Completed [...] Performed by: June Guerrero RN Scanned Package: 7309-2177-01 miconazole (SECURA THICK) 2 % cream [[id number]] Ordering Provider: Linda Haile MD Status: Verified [...] topical Performed by: Mala Lion Scanned Package: 13464-012-32 haloperidol (HALDOL) 5 mg/mL injection - ADS Override Pull [[id number]] Status: Dispensed (Past End Date/Time) Ordered On: 03/14/24 0452 Starts/Ends: 03/14/24 0452 - 03/14/24 1659 Ordered Dose (Remaining/Total): -- (08/13) Route: -- Frequency: -- Ordered Rate/Order Duration: -- / -- Admin Instructions: Created by cabinet override Note to pharmacy: Created by cabinet override (No admins scheduled or recorded for this medication) linezolid (ZYVOX) tablet 600 mg [[id number]] Ordering Provider: Vince Allen MD Status: Completed (Past End Date/Time) Ordered On: 03/14/24 1155 Starts/Ends: 03/14/24 1230 - 03/14/242113 Ordered Dose (Remaining/Total): 600 mg (0/2) Route: oral Frequency: 2 times daily Ordered Rate/Order Duration: -- / -- Timestamps Action Dose Route Other Information 03/14/242113 Given 600 mg oral Performed by: June Guerrero RN Scanned Package: 79359-637-14 benzocaine-menthoL (CHLORASEPTIC) lozenge 1 lozenge [[id number]] Ordering Provider: Linda Haile MD Status: Dispensed Ordered On: 03/15/24436 Start: 03/15/24436 Ordered Dose (Remaining/Total): 1 lozenge (--/--) Route: mouth/throat Frequency: Every 3 hours PRN Ordered Rate/Order Duration: -- / -- Timestamps Action Dose Route Other Information 03/25/24 1224 Given 1 lozenge mouth/throat Performed by: Liberty Taylor RN Scanned Package: [id number] dextrose gel in packet 15 g [[id number]] Ordering Provider: Linda Haile MD Status: Verified [...] medication) dextrose (D10W) 10% bolus 250 mL [[id number]] Ordering Provider: Linda Haile MD Status: Verified [...] hour post treatment. If BG is less [id number] mg/dL, repeat Q15 minute BG checks and treatment. Call MD for each episode of hypoglycemia. (No admins scheduled or recorded for this medication) glucagon injection 1 mg [[id number]] Ordering Provider: Linda Haile MD Status: Verified [...] this medication) oxyCODONE (ROXICODONE) tablet 7.5 mg [[id number]] Ordering Provider: Vince Allen MD Status: Dispensed Ordered On: 03/17/241036 Start: 03/17/24 1036 Ordered Dose (Remaining/Total): 7.5 mg (--/--) Route: oral Frequency: Every 4 hours PRN Ordered Rate/Order Duration: -- / -- Timestamps Action Dose Route Other Information 04/02/24 1321 Given 7.5 mg oral Performed by: Alyx Ma RN Scanned Package: 55996-370-94 hydrOXYzine (ATARAX) tablet 50 mg [[id number]] Ordering Provider: Demetri Serrano MD Status: Dispensed Ordered On: 03/17/24 1634 Start: 03/17/24 1634 Ordered Dose (Remaining/Total): 50 mg (--/--) Route: oral Frequency: Every 4 hours PRN Ordered Rate/Order Duration: -- / -- Timestamps Action Dose Route Other Information 03/30/242024 Given 50 mg oral Performed by: Leighann Solitario Scanned Package: 96123-491-96, 92150-319-76 enoxaparin (LOVENOX) syringe 30 mg [[id number]] Ordering Provider: Xochitl Esquivel NP Status: Dispensed Ordered On: 03/18/24 1152 Start: 03/18/24 2100 Ordered Dose (Remaining/Total): 30 mg (--/--) Route: subcutaneous Frequency: Every 12 hours scheduled Ordered Rate/Order Duration: -- / -- Timestamps Action Dose Route / Site Other Information 04/02/24 0915 Given 30 mg subcutaneous Right Lower Abdomen Performed by: Alyx Ma RN Scanned Package: 84752-592-43 lidocaine (ASPERCREME) 4 % patch 2 patch [[id number]] Ordering Provider: Xochitl Esquivel NP Status: Dispensed [...] Performed by: Alyx Ma RN Scanned Package: 4585-0756-44, 2441-9323-12 traZODone (DESYREL) tablet 50 mg [[id number]] Ordering Provider: Xochitl Esquivel NP Status: Dispensed Ordered On: 03/18/24 1529 Start: 03/18/24 2100 Ordered Dose (Remaining/Total): 50 mg (--/--) Route: oral Frequency: Nightly Ordered Rate/Order Duration: -- / -- Timestamps Action Dose Route Other Information 04/01/24 2148 Given 50 mg oral Performed by: Jose Arechiga RN Scanned Package: 33416-852-29 polyethylene glycol (MIRALAX) packet 17 g [[id number]] Ordering Provider: Xochitl Esquivel NP Status: Dispensed Ordered On: 03/19/24 0903 Start: 03/19/24 2100 Ordered Dose (Remaining/Total): 17 g (--/--) Route: oral Frequency: 2 times daily Ordered Rate/Order Duration: -- / -- Timestamps Action Dose Route Other Information 04/02/24 0915 Given 17 g oral Performed by: Alyx Ma RN Scanned Package: 99916-704-40 bisacodyL (DULCOLAX) suppository 10 mg [[id number]] Ordering Provider: Xochitl Esquivel NP Status: Dispensed (Past End Date/Time) Ordered On: 03/19/24 0915 Starts/Ends: 03/19/24 1000 - 03/20/24 1000 Ordered Dose (Remaining/Total): 10 mg (1/1) Route: rectal Frequency: Once Ordered Rate/Order Duration: -- / -- (No admins scheduled or recorded for this medication) HYDROmorphone (DILAUDID) injection 0.2 mg [[id number]] Ordering Provider: Demetri Serrano MD Status: Completed (Past End Date/Time) Ordered On: 03/21/24527 Starts/Ends: 03/21/24 0600 - 03/21/24 0545 Ordered Dose (Remaining/Total): 0.2 mg (0/1) Route: intravenous Frequency: Once Ordered Rate/Order Duration: -- / 2 Minutes Timestamps Action Dose / Duration Route Other Information 03/21/24 0543 Given 0.2 mg 2 Minutes intravenous Performed by: Elizabeth Bell RN Scanned Package: 52356-522-59 insulin glargine (LANTUS, SEMGLEE) 100 unit/mL injection 2 Units [[id number]] Ordering Provider: Demetri Serrano MD Status: Completed [...] Performed by: Dilcia Torres, JULISSA Scanned Package: 71397-216-60 insulin glargine (LANTUS, SEMGLEE) 100 unit/mL injection 30 Units [[id number]] Ordering Provider: Ximena Diaz NP Status: Dispensed [...] Performed by: Alyx Ma, JULISSA Scanned Package: 90952-489-92 insulin lispro (HumaLOG, ADMELOG) 100 unit/mL injection 2 Units [[id number]] Ordering Provider: Ximena Diaz NP Status: Verified Ordered On: 03/25/24 0737 Start: 03/25/24 0734 Ordered Dose (Remaining/Total): 2 Units (--/--) Route: subcutaneous Frequency: Every 6 hours PRN Ordered Rate/Order Duration: -- / -- Admin Instructions: Please give with snacks. (No admins scheduled or recorded for this medication) insulin lispro (HumaLOG, ADMELOG) 100 unit/mL injection 20 Units [[id number]] Ordering Provider: Ximena Diaz NP Status: Dispensed [...] Performed by: Alyx Ma RN Scanned Package: 4983-8474-06 oxyCODONE (ROXICODONE) tablet 5 mg [[id number]] Ordering Provider: Demetri Serrano MD Status: Completed (Past End Date/Time) Ordered On: 03/28/24 1127 Starts/Ends: 03/28/24 1200 - 03/28/24 1214 Ordered Dose (Remaining/Total): 5 mg (0/1) Route: oral Frequency: Once Ordered Rate/Order Duration: -- / -- Timestamps Action Dose Route Other Information 03/28/24 1214 Given 5 mg oral Performed by: Lorena Acevedo RN Scanned Package: 96490-681-98 methocarbamoL (ROBAXIN) tablet 1,000 mg [[id number]] Ordering Provider: Karuna Mitchell NP Status: Dispensed Ordered On: 03/28/24 1352 Start: 03/28/24 1700 Ordered Dose (Remaining/Total): 1,000 mg (--/--) Route: oral Frequency: 4 times daily Ordered Rate/Order Duration: -- / -- Timestamps Action Dose Route Other Information 04/02/24 1606 Given 1,000 mg oral Performed by: Alyx Ma RN Scanned Package: 10438-204-36, 76912-822-29 insulin lispro (HumaLOG, ADMELOG) 100 unit/mL injection 0-10 Units [[id number]] Ordering Provider: Messi Hummel MD Status: Dispensed [...] Performed by: Alyx Ma RN Scanned Package: 9471-5246-64 miconazole 2 % cream [[id number]] Ordering Provider: Riki Isidro MD Status: Dispensed (Past End Date/Time) Ordered On: 03/30/24 2154 Starts/Ends: 03/30/24 2230 - 03/31/24 0859 Ordered Dose (Remaining/Total): -- (08/13) Route: topical Frequency: 2 times daily Ordered Rate/Order Duration: -- / -- Question Answer Comment Apply to affected area:: diaper area -- (No admins scheduled or recorded for this medication) pregabalin (LYRICA) capsule 150 mg [[id number]] Ordering Provider: Johan Ulloa MD Status: Dispensed Ordered On: 03/31/24 1102 Start: 03/31/24 1600 Ordered Dose (Remaining/Total): 150 mg (--/--) Route: oral Frequency: 3 times daily Ordered Rate/Order Duration: -- / -- Timestamps Action Dose Route Other Information 04/02/24 1606 Given 150 mg oral Performed by: Alyx Ma RN Scanned Package: [id number] * Plan of Care - Desi Wang RN - 04/02/2024 4:20 PM CDT CM placed call to Pasha at [phone]. Spoke with Akanksha. Updates sent via [email or web address], refaxed to [phone]. Will review today & follow up with CM tomorrow. * Plan of Care - Jose Arechiga RN - 04/02/2024 4:02 AM CDT Goals: Clinical Goals for the Shift: vss, prevent falls/ injury, control pain, esnure rest, monitor las/ surgical wounds Cost Control Specialist Patient Centered Goal for Treatment: Mobility, [...] pain, esnure rest, monitor las/ surgical wounds Custodial Patient Centered Goal for Treatment: Mobility, Pain management * Plan of Care - Jose Arechiga RN - 04/01/2024 2:35 AM CDT Goals: Clinical Goals for the Shift: vss, prevent falls/ injury, control pain, esnure rest, monitor las/ surgical wounds Cost Control Specialist Patient Centered Goal for Treatment: Mobility, [...] pain, esnure rest, monitor las/ surgical wounds Cost Control Specialist Patient Centered Goal for Treatment: Mobility, [...] D1, great Time First Assessed 0600 Days Location Orientation: Anterior;Left Additional wound location identifiers: [...] to Air -- -- -- Site Assessment [place] -- [place] Natalie-wound Assessment HOLLY -- -- [place] [...] Status Dry;Intact -- -- -- Site Assessment [place] Natalie-wound Assessment [place] -- -- [place] [...] task - Dynamic Standing-Standing Surface -- Floor -HI Dynamic Standing-Level of Assistance -- Minimum assistance -HI Dynamic Standing-Comments -- LE weakness/balance; Post op [...] - Toileting: Where assessed -- Bedside Commode -HI Toileting: Level of assistance -- Moderate Assist [...] 1 -- Sit to stand;Stand to sit -HI Transfer Device 1 -- Wheeled walker -MD Transfer Level of Assistance 1 -- Minimum Assist - Trials/Comments 1 -- Assist for balance, controlled descent and force production -HI Toilet Transfer From -- Chair with arms -HI Toilet Transfer Type -- To and from -MD Toilet Transfer to -- Standard bedside commode -HI Toilet Transfer Technique -- Ambulating -MD Toilet [...] the discharge summary -MD OT Recommendation -- [facility] -MD Patient at high risk for [...] & reported being in significant pain 04/22,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 -AK -- Patient declined [...] shoes, but they've been unable. Therapist contacted ARCHIVES DIRECTOR to order post-op shoe for right foot [...] discharge summary - Recommendation/Plan PT Recommendation/Plan -- [facility] -SETH (r) MS (c) -- [facility] - Patient at high risk for [...] Initials Name Effective Dates [place] Mignon Toussaint, MEDICAL CODING TECHNICIAN 07/14/19 - SETH Wilber Skinner 02/05/24 - [place] Johan Garcia, PT 05/05/19 [...] Recent Administrations acetaminophen (TYLENOL) tablet 1,000 mg [[id number]] Ordering Provider: Rosalio Calixto MD Status: Completed (Past End Date/Time) Ordered On: 03/08/241836 Starts/Ends: 03/08/241837 - 03/08/241855 Ordered Dose (Remaining/Total): 1,000 mg (0/1) Route: oral Frequency: Once Ordered Rate/Order Duration: -- / -- Timestamps Action Dose Route Other Information 03/08/241855 Given 1,000 mg oral Performed by: Brionna Pitt RN Scanned Package: 7246-0300-99, 9439-5558-32 droPERidol (INAPSINE) injection 1.25 mg [[id number]] Ordering Provider: Rosalio Calixto MD Status: Completed [...] Performed by: Brionna Pitt RN Scanned Package: 2182-6308-64 fentaNYL (SUBLIMAZE) preservative free injection 50 mcg [[id number]] Ordering Provider: Rosalio Calixto MD Status: Completed [...] Performed by: Brionna Pitt RN Scanned Package: 9720-1566-24 ioversoL (OPTIRAY 350) syringe 100 mL [[id number]] Ordering Provider: Rosalio Calixto MD Status: Completed [...] RT ioversoL (OPTIRAY 350) syringe 125 mL [[id number]] Ordering Provider: Rosalio Calixto MD Status: Completed [...] Hill, RT gadoterate meglumine injection 14 mL [[id number]] Ordering Provider: Rosalio Calixto MD Status: Completed [...] (HumaLOG, ADMELOG) 100 unit/mL injection 4 Units [[id number]] Ordering Provider: Ho An MD Status: Completed (Past End Date/Time) Ordered On: 03/09/24332 Starts/Ends: 03/09/24333 - 03/09/24342 Ordered Dose (Remaining/Total): 4 Units (0/1) Route: subcutaneous Frequency: Once Ordered Rate/Order Duration: -- / -- Timestamps Action Dose Route / Site Other Information 03/09/24342 Given 4 Units subcutaneous Left Lower Abdomen Performed by: Brionna Pitt RN Scanned Package: 6425-2305-45 droPERidol (INAPSINE) injection 1.25 mg [[id number]] Ordering Provider: Ho An MD Status: Completed [...] Performed by: Odilia Vega RN Scanned Package: 9731-4607-67 sodium chloride 0.9% flush 0.5-20 mL [[id number]] Ordering Provider: Ericka Estes MD Status: Verified Ordered On: 03/09/24608 Start: 03/09/24644 Ordered Dose (Remaining/Total): 0.5-20 mL (--/--) Route: intra-catheter Frequency: Every 8 hours scheduled Ordered Rate/Order Duration: -- / -- Admin Instructions: Flush volume based on line type and size. Timestamps Action Dose Route Other Information 03/28/2436 Given 10 mL intra-catheter Performed by: Clifford Lindsey RN sodium chloride 0.9% flush 0.5-20 mL [[id number]] Ordering Provider: Ericka Estes MD Status: Verified [...] Performed by: Isha Cox RN Scanned Package: [id number] Carrier Fluids for Secondary Infusion - 0.9% Sodium Chloride [[id number]] Ordering Provider: Ericka Estes MD Status: Dispensed [...] (1 %) preservative free injection 200 mg [[id number]] Ordering Provider: Varun Song MD Status: Completed (Past End Date/Time) Ordered On: 03/09/24 1240 Starts/Ends: 03/09/24 1315 - 03/09/24 1312 Ordered Dose (Remaining/Total): 20 mL (0/1) Route: infiltration Frequency: Once Ordered Rate/Order Duration: -- / -- Timestamps Action Dose Route Other Information 03/09/24 1312 Given 200 mg infiltration Performed by: Keyonna Hernandez RN HYDROmorphone (DILAUDID) injection 0.5 mg [[id number]] Ordering Provider: Varun Song MD Status: Completed [...] halo placement droPERidol (INAPSINE) injection 1.25 mg [[id number]] Ordering Provider: Varun Song MD Status: Dispensed (Past End Date/Time) Ordered On: 03/09/241335 Starts/Ends: 03/09/241414 - 03/10/241414 Ordered Dose (Remaining/Total): 1.25 mg (1/1) Route: intravenous Frequency: Once Ordered Rate/Order Duration: -- / -- Admin Instructions: If administered IV push, administer over 5 min for adults. (No admins scheduled or recorded for this medication) HYDROmorphone (DILAUDID) injection 0.5 mg [[id number]] Ordering Provider: Varun Song MD Status: Completed (Past End Date/Time) Ordered On: 03/09/241336 Starts/Ends: 03/09/241414 - 03/09/241335 Ordered Dose (Remaining/Total): 0.5 mg (0/1) Route: intravenous Frequency: Once Ordered Rate/Order Duration: -- / 2 Minutes Timestamps Action Dose / Duration Route Other Information 03/09/241333 Given 0.5 mg 2 Minutes intravenous Performed by: Keyonna Hernandez RN Comments: halo placement methocarbamoL (ROBAXIN) tablet 500 mg [[id number]] Ordering Provider: Bernardino Gleason MD Status: Completed (Past End Date/Time) Ordered On: 03/09/242042 Starts/Ends: 03/09/242114 - 03/09/242122 Ordered Dose (Remaining/Total): 500 mg (0/1) Route: oral Frequency: Once Ordered Rate/Order Duration: -- / -- Timestamps Action Dose Route Other Information 03/09/242122 Given 500 mg oral Performed by: Haley Varner RN Scanned Package: 58268-204-18 magnesium sulfate 2 g/50 mL in water (premix) 2 g [[id number]] Ordering Provider: Bernardino Gleason MD Status: Completed (Past End Date/Time) Ordered On: 03/09/242134 Starts/Ends: 03/09/242214 - 03/09/242326 Ordered Dose (Remaining/Total): 2 g (0/1) Route: intravenous Frequency: Once Ordered Rate/Order Duration: -- / 60 Minutes Timestamps Action Dose / Duration Route Other Information 03/09/242226 New Bag 2 g 60 Minutes intravenous Performed by: Haley Varner RN Scanned Package: 64434-461-51 potassium chloride (KLOR-CON) packet 20 mEq [[id number]] Ordering Provider: Bernardino Gleason MD Status: Completed [...] Performed by: Haley Varner RN Scanned Package: [address]-7 HYDROmorphone (DILAUDID) injection 0.5 mg [[id number]] Ordering Provider: Bernardino Gleason MD Status: Completed (Past End Date/Time) Ordered On: 03/10/24 0507 Starts/Ends: 03/10/24 0545 - 03/10/24 0516 Ordered Dose (Remaining/Total): 0.5 mg (0/1) Route: intravenous Frequency: Once Ordered Rate/Order Duration: -- / 2 Minutes Timestamps Action Dose / Duration Route Other Information 03/10/24 0514 Given 0.5 mg 2 Minutes intravenous Performed by: Haley Varner RN Scanned Package: 77222-004-26 magnesium sulfate 2 g/50 mL in water (premix) 2 g [[id number]] Ordering Provider: Yunier Leach MD Status: Completed [...] Performed by: Darius Ghosh RN Scanned Package: 75986-466-82 potassium chloride (KLOR-CON) packet 40 mEq [[id number]] Ordering Provider: Yunier Leach MD Status: Completed [...] Performed by: Janett Ledezma RN Scanned Package: [address]-8, [address]-1 sodium chloride 0.9% bolus 1,000 mL [[id number]] Ordering Provider: Eloise Knapp MD Status: Completed [...] Performed by: Soco Schwarz RN Scanned Package: 9061-3003-65, 1773-5729-72 magnesium sulfate 2 g/50 mL in water (premix) 2 g [[id number]] Ordering Provider: Jane Hoover MD Status: Completed [...] Performed by: Janett Ledezma RN Scanned Package: 95125-151-44 senna-docusate (PERICOLACE) 8.6-50 mg per tablet 1 tablet [[id number]] Ordering Provider: Ericka Estes MD Status: Dispensed Ordered On: 03/12/24 0954 Start: 03/12/24 2100 Ordered Dose (Remaining/Total): 1 tablet (--/--) Route: oral Frequency: 2 times daily Ordered Rate/Order Duration: -- / -- Timestamps Action Dose Route Other Information 03/31/24 0908 Given 1 tablet oral Performed by: Alyx Ma RN Scanned Package: 7855-6050-73 lidocaine (PF) (XYLOCAINE) 10 mg/mL (1 %) preservative free injection 10-20 mg [[id number]] Ordering Provider: Jane Hoover MD Status: Completed [...] PICC sodium chloride 0.9% flush 5-10 mL [[id number]] Ordering Provider: Ericka Estes MD Status: Verified [...] RN sodium chloride 0.9% flush 5-20 mL [[id number]] Ordering Provider: Ericka Estes MD Status: Verified Ordered On: 03/12/241831 Start: 03/12/241827 Ordered Dose (Remaining/Total): 5-20 mL (--/--) Route: intra-catheter Frequency: As needed Ordered Rate/Order Duration: -- / -- Admin Instructions: Flush volume based on line type, size, and protocol. (No admins scheduled or recorded for this medication) sodium chloride 0.9% flush 5-10 mL [[id number]] Ordering Provider: Ericka Estes MD Status: Verified [...] RN sodium chloride 0.9% flush 5-20 mL [[id number]] Ordering Provider: Ericka Estes MD Status: Verified Ordered On: 03/12/241831 Start: 03/12/241830 Ordered Dose (Remaining/Total): 5-20 mL (--/--) Route: intra-catheter Frequency: As needed Ordered Rate/Order Duration: -- / -- Admin Instructions: Flush volume based on line type, size, and protocol. (No admins scheduled or recorded for this medication) acetaminophen (TYLENOL) tablet 1,000 mg [[id number]] Ordering Provider: Ericka Estes MD Status: Dispensed Ordered On: 03/13/24 1120 Start: 03/13/24 1200 Ordered Dose (Remaining/Total): 1,000 mg (--/--) Route: oral Frequency: Every 6 hours scheduled Ordered Rate/Order Duration: -- / -- Timestamps Action Dose Route Other Information 03/31/24 0602 Given 1,000 mg oral Performed by: Leighann Solitario Scanned Package: 6410-6083-15, 8539-4050-56 magnesium sulfate 2 g/50 mL in water (premix) 2 g [[id number]] Ordering Provider: Johnny Corcoran MD Status: Completed (Past End Date/Time) Ordered On: 03/13/24 1122 Starts/Ends: 03/13/24 1200 - 03/13/24 1306 Ordered Dose (Remaining/Total): 2 g (0/1) Route: intravenous Frequency: Once Ordered Rate/Order Duration: -- / 60 Minutes Timestamps Action Dose / Duration Route Other Information 03/13/24 1206 New Bag 2 g 60 Minutes intravenous Performed by: Kenyatta Dumont RN Scanned Package: 19162-243-68 ceFAZolin (ANCEF) 1 gram/10 mL in sterile water (premix) 1,000 mg [[id number]] Ordering Provider: Ericka Estes MD Status: Completed [...] Performed by: June Guerrero RN Scanned Package: 4297-7028-25 miconazole (SECURA THICK) 2 % cream [[id number]] Ordering Provider: Linda Haile MD Status: Verified [...] topical Performed by: Mala Lion Scanned Package: 72599-193-53 haloperidol (HALDOL) 5 mg/mL injection - ADS Override Pull [[id number]] Status: Dispensed (Past End Date/Time) Ordered On: 03/14/24451 Starts/Ends: 03/14/24 045 - 03/14/241658 Ordered Dose (Remaining/Total): -- (08/13) Route: -- Frequency: -- Ordered Rate/Order Duration: -- / -- Admin Instructions: Created by cabinet override Note to pharmacy: Created by cabinet override (No admins scheduled or recorded for this medication) linezolid (ZYVOX) tablet 600 mg [[id number]] Ordering Provider: Vince Allen MD Status: Completed (Past End Date/Time) Ordered On: 03/14/24 1155 Starts/Ends: 03/14/24 1230 - 03/14/242113 Ordered Dose (Remaining/Total): 600 mg (0/2) Route: oral Frequency: 2 times daily Ordered Rate/Order Duration: -- / -- Timestamps Action Dose Route Other Information 03/14/242113 Given 600 mg oral Performed by: June Guerrero RN Scanned Package: 93011-039-43 benzocaine-menthoL (CHLORASEPTIC) lozenge 1 lozenge [[id number]] Ordering Provider: Linda Haile MD Status: Dispensed Ordered On: 03/15/24436 Start: 03/15/24436 Ordered Dose (Remaining/Total): 1 lozenge (--/--) Route: mouth/throat Frequency: Every 3 hours PRN Ordered Rate/Order Duration: -- / -- Timestamps Action Dose Route Other Information 03/25/24 1224 Given 1 lozenge mouth/throat Performed by: Liberty Taylor RN Scanned Package: [id number] dextrose gel in packet 15 g [[id number]] Ordering Provider: Linda Haile MD Status: Verified [...] medication) dextrose (D10W) 10% bolus 250 mL [[id number]] Ordering Provider: Linda Haile MD Status: Verified [...] hour post treatment. If BG is less jnes697 mg/dL, repeat Q15 minute BG checks and treatment. Call MD for each episode of hypoglycemia. (No admins scheduled or recorded for this medication) glucagon injection 1 mg [[id number]] Ordering Provider: Linda Haile MD Status: Verified [...] this medication) oxyCODONE (ROXICODONE) tablet 7.5 mg [[id number]] Ordering Provider: Vince Allen MD Status: Dispensed Ordered On: 03/17/24 1037 Start: 03/17/24 1036 Ordered Dose (Remaining/Total): 7.5 mg (--/--) Route: oral Frequency: Every 4 hours PRN Ordered Rate/Order Duration: -- / -- Timestamps Action Dose Route Other Information 03/31/24 1008 Given 7.5 mg oral Performed by: Alyx Ma RN Scanned Package: 74977-882-72 hydrOXYzine (ATARAX) tablet 50 mg [[id number]] Ordering Provider: Demetri Serrano MD Status: Dispensed Ordered On: 03/17/24 1634 Start: 03/17/24 1634 Ordered Dose (Remaining/Total): 50 mg (--/--) Route: oral Frequency: Every 4 hours PRN Ordered Rate/Order Duration: -- / -- Timestamps Action Dose Route Other Information 03/30/24 202 Given 50 mg oral Performed by: Leighann Solitario Scanned Package: 91824-806-07, 59578-901-57 enoxaparin (LOVENOX) syringe 30 mg [[id number]] Ordering Provider: Xochitl Esquivel NP Status: Dispensed Ordered On: 03/18/24 1152 Start: 03/18/24 2100 Ordered Dose (Remaining/Total): 30 mg (--/--) Route: subcutaneous Frequency: Every 12 hours scheduled Ordered Rate/Order Duration: -- / -- Timestamps Action Dose Route / Site Other Information 03/31/24 0908 Given 30 mg subcutaneous Left Upper Arm Performed by: Alyx Ma RN Scanned Package: 87213-740-28 lidocaine (ASPERCREME) 4 % patch 2 patch [[id number]] Ordering Provider: Xochitl Esquivel NP Status: Dispensed [...] (Comment) Performed by: Buffy Washington Scanned Package: 3237-9123-29, 6001-9576-47 traZODone (DESYREL) tablet 50 mg [[id number]] Ordering Provider: Xochitl Esquivel NP Status: Dispensed Ordered On: 03/18/24 1529 Start: 03/18/242099 Ordered Dose (Remaining/Total): 50 mg (--/--) Route: oral Frequency: Nightly Ordered Rate/Order Duration: -- / -- Timestamps Action Dose Route Other Information 03/30/242023 Given 50 mg oral Performed by: Leighann Solitario Scanned Package: 97638-628-20 polyethylene glycol (MIRALAX) packet 17 g [[id number]] Ordering Provider: Xochitl Esquivel NP Status: Dispensed Ordered On: 03/19/24 0903 Start: 03/19/24 2100 Ordered Dose (Remaining/Total): 17 g (--/--) Route: oral Frequency: 2 times daily Ordered Rate/Order Duration: -- / -- Timestamps Action Dose Route Other Information 03/22/24 0837 Given 17 g oral Performed by: Chichi Mitchell Scanned Package: 88884-927-49 bisacodyL (DULCOLAX) suppository 10 mg [[id number]] Ordering Provider: Xochitl Esquivel NP Status: Dispensed (Past End Date/Time) Ordered On: 03/19/24 0915 Starts/Ends: 03/19/24 1000 - 03/20/24 1000 Ordered Dose (Remaining/Total): 10 mg (1/1) Route: rectal Frequency: Once Ordered Rate/Order Duration: -- / -- (No admins scheduled or recorded for this medication) HYDROmorphone (DILAUDID) injection 0.2 mg [[id number]] Ordering Provider: Demetri Serrano MD Status: Completed (Past End Date/Time) Ordered On: 03/21/24 0528 Starts/Ends: 03/21/24 0600 - 03/21/24 0545 Ordered Dose (Remaining/Total): 0.2 mg (0/1) Route: intravenous Frequency: Once Ordered Rate/Order Duration: -- / 2 Minutes Timestamps Action Dose / Duration Route Other Information 03/21/24 0543 Given 0.2 mg 2 Minutes intravenous Performed by: Elizabeth Bell RN Scanned Package: 74456-846-26 pregabalin (LYRICA) capsule 100 mg [[id number]] Ordering Provider: Shi Levi MD Status: Dispensed Ordered On: 03/21/24 0730 Start: 03/21/24 0900 Ordered Dose (Remaining/Total): 100 mg (--/--) Route: oral Frequency: 3 times daily Ordered Rate/Order Duration: -- / -- Timestamps Action Dose Route Other Information 03/31/24 0908 Given 100 mg oral Performed by: Alyx Ma RN Scanned Package: 35283-446-37 insulin glargine (LANTUS, SEMGLEE) 100 unit/mL injection 2 Units [[id number]] Ordering Provider: Demetri Serrano MD Status: Completed [...] Performed by: Dilcia Torres, JULISSA Scanned Package: 88991-415-87 insulin glargine (LANTUS, SEMGLEE) 100 unit/mL injection 30 Units [[id number]] Ordering Provider: Ximena Diaz NP Status: Dispensed [...] Performed by: Alyx Ma RN Scanned Package: 06462-193-56 insulin lispro (HumaLOG, ADMELOG) 100 unit/mL injection 2 Units [[id number]] Ordering Provider: Ximena Diaz NP Status: Verified Ordered On: 03/25/24 0737 Start: 03/25/24 0734 Ordered Dose (Remaining/Total): 2 Units (--/--) Route: subcutaneous Frequency: Every 6 hours PRN Ordered Rate/Order Duration: -- / -- Admin Instructions: Please give with snacks. (No admins scheduled or recorded for this medication) insulin lispro (HumaLOG, ADMELOG) 100 unit/mL injection 20 Units [[id number]] Ordering Provider: Ximena Diaz NP Status: Dispensed [...] Performed by: Alyx Ma RN Scanned Package: 9434-5004-88 oxyCODONE (ROXICODONE) tablet 5 mg [[id number]] Ordering Provider: Demetri Serrano MD Status: Completed (Past End Date/Time) Ordered On: 03/28/24 1127 Starts/Ends: 03/28/24 1200 - 03/28/24 1214 Ordered Dose (Remaining/Total): 5 mg (0/1) Route: oral Frequency: Once Ordered Rate/Order Duration: -- / -- Timestamps Action Dose Route Other Information 03/28/24 1214 Given 5 mg oral Performed by: Lorena Acevedo RN Scanned Package: 23384-958-27 methocarbamoL (ROBAXIN) tablet 1,000 mg [[id number]] Ordering Provider: Karuna Mitchell NP Status: Dispensed Ordered On: 03/28/24 1352 Start: 03/28/24 1700 Ordered Dose (Remaining/Total): 1,000 mg (--/--) Route: oral Frequency: 4 times daily Ordered Rate/Order Duration: -- / -- Timestamps Action Dose Route Other Information 03/31/24 0942 Given 1,000 mg oral Performed by: Alyx Ma RN Scanned Package: 82082-792-64, 81281-332-19 insulin lispro (HumaLOG, ADMELOG) 100 unit/mL injection 0-10 Units [[id number]] Ordering Provider: Messi Hummel MD Status: Dispensed [...] Performed by: Alyx Ma RN Scanned Package: 9457-1024-74 miconazole 2 % cream [[id number]] Ordering Provider: Riki Isidro MD Status: Dispensed [...] pain, esnure rest, monitor las/ surgical wounds Cost Control Specialist Patient Centered Goal for Treatment: Mobility, [...] related to Diabetes will improve: Collaborate with dietetics teacher for diabetes evaluation and/or teaching Instruct on [...] Progressing Flowsheets (Taken 03/24/2024 0900 by Maryuri Limon RN) Skin integrity remains intact: Assess and [...] improve Outcome: Progressing Flowsheets (Taken 03/30/2024 105) Ability to describe self care measures that may prevent or decrease complications related to Type 2Diabetes will improve: Teach blood glucose measurement Teach signs and symptoms of hypoglycemia Teach/demonstrate insulin injections Problem: Health Nutrition Goal: Nutritional intake and knowledge related to Diabetes will improve Outcome: Progressing Flowsheets (Taken 03/30/2024 105) Nutritional intake and knowledge related to Diabetes will improve: Collaborate with dietetics teacher for diabetes evaluation and/or teaching Instruct on [...] during hospitalization Outcome: Progressing Flowsheets (Taken 03/30/2024 105) Absence of infection during hospitalization: Assess and [...] Contact Info: New Consults: Place order in [facility]; If URGENT, call Diabetes Fellow: [phone]. All consults will be seen within 24hrs Check 'Treatment Team' assignment for Diabetes 1 vs 2 vs 3 General Endocrinology (Non-Diabetes): [phone] Diabetes After-Hours & Weekends: Diabetes Fellow Patient: Farzana Bran, 59 y.o. female (: 1965) Room: [place] [address] [address] ( ) LOS: 20 Farzana Bran is [...] comorbidities: <7% Diabetes Provider: PCP Insurance: Payor: [facility] [employer] / Plan: MEDICARE SOLUTIONS / Product Type: [facility] MEDICARE / Home regimen: Lantus 10 units [...] labs, pain, free from falls and injury. Custodial Patient Centered Goal for Treatment: Mobility, Pain management Summary: continue with plan of care * Consults, Subsequent - Messi Hummel MD - 03/29/2024 10:02 AM CDT Images from the original note were not included. Division of Endocrinology, Metabolism, & Lipid Research Contact Info: New Consults: Place order in [facility]; If URGENT, call Diabetes Fellow: [phone]. All consults will be seen within 24hrs Check 'Treatment Team' assignment for Diabetes 1 vs 2 vs 3 General Endocrinology (Non-Diabetes): [phone] Diabetes After-Hours & Weekends: Diabetes Fellow Endocrinology & Diabetes Brief Note Patient: Farzana Bran, 59 y.o. female (: 1965) Room: [place] [address] ( ) LOS: 20 Farzana Bran is [...] No acute events overnight. 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 High yesterday attributed to pain. Summary from [...] comorbidities: <7% Diabetes Provider: PCP Insurance: Payor: [employer] MEDICARE / Plan: MEDICARE SOLUTIONS / Product Type: [facility] MEDICARE / Home regimen: Lantus 10 units [...] Pain management, ambulation, promote comfort and safety Custodial Patient Centered Goal for Treatment: Mobility, Pain [...] cervical vertebral level, initial encounter ([facility])[S12.9XXA] Closed unstable burst fracture of eleventh thoracic vertebra, initial encounter ([facility]) [S22.082A] PMD: Nayana Garber PA Medication [...] yearly or sooner as indicated by your hook and eye sewing machine operator Pending results for primary service or primary [...] Bran, 59 y.o. female (: 1965) Room: [place] [id number] ( ) LOS: 19 Farzana Bran is [...] comorbidities: <7% Diabetes Provider: PCP Insurance: Payor: [facility] / Plan: MEDICARE SOLUTIONS / Product Type: [facility] MEDICARE / Home regimen: Lantus 10 units [...] juices, no regular soda - please have powder blender meet with patient - please have staff registered nurse meet with patient- needs further education on [...] & Lipid Research Contact Info: New Consults: [phone]) General Endocrine (Non-Diabetes): [phone] (Check 'Treatment Team' assignment for Diabetes 1 vs 2 vs 3) Diabetes After-Hours & Weekends: Diabetes Fellow [phone] or [phone] * Plan of Care - Radha Campos RN - 03/28/2024 9:05 AM CDT Akanksha of [facility] ([phone]) left voicemail after hours requesting additional information for patient. Left message with Akanksha to call CM back. Spoke to [facility] of [facility] [facility]. Akanksha informed CM she will review referral with corporate nurse and will call back. Spoke to Moustapha of [facility]. Declined patient at this time due to patient not actively participating in therapy and complex needs. Will follow up with patient to request additional referrals. UPDATE Attempted to update patient on above. Staff currently working with patient. * Plan of Care - Radha Campos RN - 03/27/2024 11:59 AM CDT [facility] unable to accept patient due to patient's care needs exceeding current capacity. Patient requested referral be re-sent to [facility]. CM sent updates to this facility and [facility] and [facility] in [place], [place]. Spoke to Maday of [facility] in [place], [place]. Unable to accept patient due to patient's care needs exceeding current capacity. Spoke to admissions of [facility] ([phone]). Was informed to fax referral to [phone]. This was completed. * ECIN Note - [...] - [facility] -- Fully aware of deficits -MD [...] the discharge summary -MD OT Recommendation -- [facility] Facility -MD Patient at high risk for [...] -- 111 - Stop Time -- 1150 -MD Time [...] shoes, but they've been unable. Therapist contacted ARCHIVES DIRECTOR to order post- op shoe for right [...] the discharge summary -SM Recommendation/Plan PT Recommendation/Plan [facility] Facility -LM [facility] Facility -NB [facility] Facility - [facility] Facility - Patient at high risk for Falls;Readmission;Injury due to decreased ability to care for self;Injury due to reduced functional status;Injury at home as patient has not returned to prior level of function -LM Falls;Readmission;Injury due to decreased ability to care for self;Injury due to reduced functional status;Injury due to balance deficits;Developing secondary complications: poor health management - Readmission;Falls;Injury due to decreased ability to care [...] 03/25/2024 4:33 PM Progress Notes signed by uRba Burton, PT * ECIN Note - Radha Campos RN - 03/27/2024 11:56 AM CDT Patient Information: Meds and Admin Active Only All Meds/Most Recent Administrations acetaminophen (TYLENOL) tablet 1,000 mg [[id number]] Ordering Provider: Rosalio Calixto MD Status: Completed (Past End Date/Time) Ordered On: 03/08/241836 Starts/Ends: 03/08/241837 - 03/08/241855 Ordered Dose (Remaining/Total): 1,000 mg (0/1) Route: oral Frequency: Once Ordered Rate/Order Duration: -- / -- Timestamps Action Dose Route Other Information 03/08/241855 Given 1,000 mg oral Performed by: Brionna Pitt RN Scanned Package: 2255-9926-75, 2321-0571-30 droPERidol (INAPSINE) injection 1.25 mg [[id number]] Ordering Provider: Rosalio Calixto MD Status: Completed [...] Performed by: Brionna Pitt RN Scanned Package: 9672-8185-27 fentaNYL (SUBLIMAZE) preservative free injection 50 mcg [[id number]] Ordering Provider: Rosalio Calixto MD Status: Completed [...] Performed by: Brionna Pitt RN Scanned Package: 5831-7775-98 ioversoL (OPTIRAY 350) syringe 100 mL [[id number]] Ordering Provider: Rosalio Calixto MD Status: Completed [...] RT ioversoL (OPTIRAY 350) syringe 125 mL [[id number]] Ordering Provider: Rosalio Calixto MD Status: Completed [...] Hill RT gadoterate meglumine injection 14 mL [[id number]] Ordering Provider: Rosalio Calixto MD Status: Completed [...] (HumaLOG, ADMELOG) 100 unit/mL injection 4 Units [[id number]] Ordering Provider: Ho An MD Status: Completed (Past End Date/Time) Ordered On: 03/09/24332 Starts/Ends: 03/09/24333 - 03/09/24342 Ordered Dose (Remaining/Total): 4 Units (0/1) Route: subcutaneous Frequency: Once Ordered Rate/Order Duration: -- / -- Timestamps Action Dose Route / Site Other Information 03/09/24 0343 Given 4 Units subcutaneous Left Lower Abdomen Performed by: Brionna Pitt RN Scanned Package: 4745-4883-23 droPERidol (INAPSINE) injection 1.25 mg [[id number]] Ordering Provider: Ho An MD Status: Completed [...] Performed by: Odilia Vega RN Scanned Package: 8084-1416-43 sodium chloride 0.9% flush 0.5-20 mL [[id number]] Ordering Provider: Ericka Estes MD Status: Verified Ordered On: 03/09/24608 Start: 03/09/24644 Ordered Dose (Remaining/Total): 0.5-20 mL (--/--) Route: intra-catheter Frequency: Every 8 hours scheduled Ordered Rate/Order Duration: -- / -- Admin Instructions: Flush volume based on line type and size. Timestamps Action Dose Route Other Information 03/26/242144 Given 10 mL intra-catheter Performed by: Mary Zarate Scanned Package: [id number] sodium chloride 0.9% flush 0.5-20 mL [[id number]] Ordering Provider: Ericka Estes MD Status: Verified [...] Performed by: Isha Cox RN Scanned Package: [id number] Carrier Fluids for Secondary Infusion - 0.9% Sodium Chloride [[id number]] Ordering Provider: Ericka Estes MD Status: Dispensed [...] (1 %) preservative free injection 200 mg [[id number]] Ordering Provider: Varun Song MD Status: Completed (Past End Date/Time) Ordered On: 03/09/24 1240 Starts/Ends: 03/09/24 1315 - 03/09/24 1312 Ordered Dose (Remaining/Total): 20 mL (0/1) Route: infiltration Frequency: Once Ordered Rate/Order Duration: -- / -- Timestamps Action Dose Route Other Information 03/09/24 1312 Given 200 mg infiltration Performed by: Keyonna Hernandez RN HYDROmorphone (DILAUDID) injection 0.5 mg [[id number]] Ordering Provider: Varun Song MD Status: Completed [...] halo placement droPERidol (INAPSINE) injection 1.25 mg [[id number]] Ordering Provider: Varun Song MD Status: Dispensed (Past End Date/Time) Ordered On: 03/09/241335 Starts/Ends: 03/09/24 141 - 03/10/24 141 Ordered Dose (Remaining/Total): 1.25 mg (1/1) Route: intravenous Frequency: Once Ordered Rate/Order Duration: -- / -- Admin Instructions: If administered IV push, administer over 5 min for adults. (No admins scheduled or recorded for this medication) HYDROmorphone (DILAUDID) injection 0.5 mg [[id number]] Ordering Provider: Varun Song MD Status: Completed [...] halo placement methocarbamoL (ROBAXIN) tablet 500 mg [[id number]] Ordering Provider: Bernardino Gleason MD Status: Completed (Past End Date/Time) Ordered On: 03/09/242042 Starts/Ends: 03/09/242114 - 03/09/242122 Ordered Dose (Remaining/Total): 500 mg (0/1) Route: oral Frequency: Once Ordered Rate/Order Duration: -- / -- Timestamps Action Dose Route Other Information 03/09/242122 Given 500 mg oral Performed by: Haley Varner RN Scanned Package: 07576-288-25 magnesium sulfate 2 g/50 mL in water (premix) 2 g [[id number]] Ordering Provider: Bernardino Gleason MD Status: Completed (Past End Date/Time) Ordered On: 03/09/242134 Starts/Ends: 03/09/242214 - 03/09/242326 Ordered Dose (Remaining/Total): 2 g (0/1) Route: intravenous Frequency: Once Ordered Rate/Order Duration: -- / 60 Minutes Timestamps Action Dose / Duration Route Other Information 03/09/242226 New Bag 2 g 60 Minutes intravenous Performed by: Haley Varner RN Scanned Package: 70313-224-90 potassium chloride (KLOR-CON) packet 20 mEq [[id number]] Ordering Provider: Bernardino Gleason MD Status: Completed [...] Performed by: Haley Varner RN Scanned Package: [address]-0 HYDROmorphone (DILAUDID) injection 0.5 mg [[id number]] Ordering Provider: Bernardino Gleason MD Status: Completed (Past End Date/Time) Ordered On: 03/10/24 0507 Starts/Ends: 03/10/24544 - 03/10/24 0516 Ordered Dose (Remaining/Total): 0.5 mg (0/1) Route: intravenous Frequency: Once Ordered Rate/Order Duration: -- / 2 Minutes Timestamps Action Dose / Duration Route Other Information 03/10/24 0514 Given 0.5 mg 2 Minutes intravenous Performed by: Haley Varner RN Scanned Package: 13408-426-79 magnesium sulfate 2 g/50 mL in water (premix) 2 g [[id number]] Ordering Provider: Yunier Leach MD Status: Completed [...] Performed by: Darius Ghosh RN Scanned Package: 23659-714-78 potassium chloride (KLOR-CON) packet 40 mEq [[id number]] Ordering Provider: Yunier Leach MD Status: Completed [...] Performed by: Janett Ledezma RN Scanned Package: [address]-8, [address]-2 sodium chloride 0.9% bolus 1,000 mL [[id number]] Ordering Provider: Eloise Knapp MD Status: Completed [...] Performed by: Soco Schwarz RN Scanned Package: 0862-4737-18, 3048-5684-33 magnesium sulfate 2 g/50 mL in water (premix) 2 g [[id number]] Ordering Provider: Jane Hoover MD Status: Completed [...] Performed by: Janett Ledezma RN Scanned Package: 50022-976-80 senna-docusate (PERICOLACE) 8.6-50 mg per tablet 1 tablet [[id number]] Ordering Provider: Ericka Estes MD Status: Dispensed Ordered On: 03/12/24 0954 Start: 03/12/24 2100 Ordered Dose (Remaining/Total): 1 tablet (--/--) Route: oral Frequency: 2 times daily Ordered Rate/Order Duration: -- / -- Timestamps Action Dose Route Other Information 03/27/24 0827 Given 1 tablet oral Performed by: Mala Lion Scanned Package: 4791-4321-54 lidocaine (PF) (XYLOCAINE) 10 mg/mL (1 %) preservative free injection 10-20 mg [[id number]] Ordering Provider: Jane Hoover MD Status: Completed [...] PICC sodium chloride 0.9% flush 5-10 mL [[id number]] Ordering Provider: Ericka Estes MD Status: Verified Ordered On: 03/12/241831 Start: 03/12/242099 Ordered Dose (Remaining/Total): 5-10 mL (--/--) Route: intra-catheter Frequency: Every 12 hours scheduled Ordered Rate/Order Duration: -- / -- Admin Instructions: Flush volume based on line type, size, and protocol. Timestamps Action Dose Route Other Information 03/25/241225 Given 10 mL intra-catheter Performed by: Liberty Taylor RN Scanned Package: [id number] sodium chloride 0.9% flush 5-20 mL [[id number]] Ordering Provider: Ericka Estes MD Status: Verified Ordered On: 03/12/241831 Start: 03/12/241827 Ordered Dose (Remaining/Total): 5-20 mL (--/--) Route: intra-catheter Frequency: As needed Ordered Rate/Order Duration: -- / -- Admin Instructions: Flush volume based on line type, size, and protocol. (No admins scheduled or recorded for this medication) sodium chloride 0.9% flush 5-10 mL [[id number]] Ordering Provider: Ericka Estes MD Status: Verified Ordered On: 03/12/241831 Start: 03/12/242099 Ordered Dose (Remaining/Total): 5-10 mL (--/--) Route: intra-catheter Frequency: Every 12 hours scheduled Ordered Rate/Order Duration: -- / -- Admin Instructions: Flush volume based on line type, size, and protocol. Timestamps Action Dose Route Other Information 03/25/24 1226 Given 10 mL intra-catheter Performed by: Liberty Taylor RN Scanned Package: [id number] sodium chloride 0.9% flush 5-20 mL [[id number]] Ordering Provider: Ericka Estes MD Status: Verified Ordered On: 03/12/241831 Start: 03/12/241830 Ordered Dose (Remaining/Total): 5-20 mL (--/--) Route: intra-catheter Frequency: As needed Ordered Rate/Order Duration: -- / -- Admin Instructions: Flush volume based on line type, size, and protocol. (No admins scheduled or recorded for this medication) acetaminophen (TYLENOL) tablet 1,000 mg [[id number]] Ordering Provider: Ericka Estes MD Status: Dispensed Ordered On: 03/13/241119 Start: 03/13/24 1200 Ordered Dose (Remaining/Total): 1,000 mg (--/--) Route: oral Frequency: Every 6 hours scheduled Ordered Rate/Order Duration: -- / -- Timestamps Action Dose Route Other Information 03/27/24 0604 Given 1,000 mg oral Performed by: Mary Zarate Scanned Package: 6304-6606-39, 2925-8469-08 magnesium sulfate 2 g/50 mL in water (premix) 2 g [[id number]] Ordering Provider: Johnny Corcoran MD Status: Completed (Past End Date/Time) Ordered On: 03/13/24 1122 Starts/Ends: 03/13/24 1200 - 03/13/24 1306 Ordered Dose (Remaining/Total): 2 g (0/1) Route: intravenous Frequency: Once Ordered Rate/Order Duration: -- / 60 Minutes Timestamps Action Dose / Duration Route Other Information 03/13/24 1206 New Bag 2 g 60 Minutes intravenous Performed by: Kenyatta Dumont RN Scanned Package: 87381-284-37 ceFAZolin (ANCEF) 1 gram/10 mL in sterile water (premix) 1,000 mg [[id number]] Ordering Provider: Ericka Estes MD Status: Completed [...] Performed by: June Guerrero RN Scanned Package: 6047-3020-58 miconazole (SECURA THICK) 2 % cream [[id number]] Ordering Provider: Linda Haile MD Status: Verified Ordered On: 03/14/24 0011 Starts/Ends: 03/14/24 0045 - 03/27/242058 Ordered Dose (Remaining/Total): -- (03/09) Route: topical Frequency: 2 times daily Ordered Rate/Order Duration: -- / -- Question Answer Comment Apply to affected area:: rash -- Timestamps Action Dose / Rate / Duration Route Other Information 03/27/24 0831 Given -- topical Performed by: Mala Lion Scanned Package: 57677-067-85 haloperidol (HALDOL) 5 mg/mL injection - ADS Override Pull [[id number]] Status: Dispensed (Past End Date/Time) Ordered On: 03/14/24 045 Starts/Ends: 03/14/24 0452 - 03/14/24 1659 Ordered Dose (Remaining/Total): -- (08/13) Route: -- Frequency: -- Ordered Rate/Order Duration: -- / -- Admin Instructions: Created by cabinet override Note to pharmacy: Created by cabinet override (No admins scheduled or recorded for this medication) linezolid (ZYVOX) tablet 600 mg [[id number]] Ordering Provider: Vince Allen MD Status: Completed (Past End Date/Time) Ordered On: 03/14/24 1155 Starts/Ends: 03/14/24 1230 - 03/14/24 2114 Ordered Dose (Remaining/Total): 600 mg (0/2) Route: oral Frequency: 2 times daily Ordered Rate/Order Duration: -- / -- Timestamps Action Dose Route Other Information 03/14/24 2114 Given 600 mg oral Performed by: June Guerrero RN Scanned Package: 10843-102-80 benzocaine-menthoL (CHLORASEPTIC) lozenge 1 lozenge [[id number]] Ordering Provider: Linda Haile MD Status: Dispensed Ordered On: 03/15/24436 Start: 03/15/24436 Ordered Dose (Remaining/Total): 1 lozenge (--/--) Route: mouth/throat Frequency: Every 3 hours PRN Ordered Rate/Order Duration: -- / -- Timestamps Action Dose Route Other Information 03/25/24 1224 Given 1 lozenge mouth/throat Performed by: Liberty Taylor RN Scanned Package: [id number] dextrose gel in packet 15 g [[id number]] Ordering Provider: Linda Haile MD Status: Verified [...] medication) dextrose (D10W) 10% bolus 250 mL [[id number]] Ordering Provider: Linda Haile MD Status: Verified [...] hour post treatment. If BG is less dlhs634 mg/dL, repeat Q15 minute BG checks and treatment. Call MD for each episode of hypoglycemia. (No admins scheduled or recorded for this medication) glucagon injection 1 mg [[id number]] Ordering Provider: Linda Haile MD Status: Verified [...] (HumaLOG, ADMELOG) 100 unit/mL injection 0-10 Units [[id number]] Ordering Provider: Linda Haile MD Status: Dispensed [...] Upper Arm Performed by: Mala Lion Package: 5120-8821-90 insulin lispro (HumaLOG, ADMELOG) 100 unit/mL injection 0-5 Units [[id number]] Ordering Provider: Linda Haile MD Status: Dispensed [...] Abdomen Performed by: Mary Zarate Scanned Package: 1825-9104-98 oxyCODONE (ROXICODONE) tablet 7.5 mg [[id number]] Ordering Provider: Vince Allen MD Status: Dispensed Ordered On: 03/17/24 1037 Start: 03/17/24 1036 Ordered Dose (Remaining/Total): 7.5 mg (--/--) Route: oral Frequency: Every 4 hours PRN Ordered Rate/Order Duration: -- / -- Timestamps Action Dose Route Other Information 03/27/24 0827 Given 7.5 mg oral Performed by: Mala Lion Scanned Package: 52395-032-04 hydrOXYzine (ATARAX) tablet 50 mg [[id number]] Ordering Provider: Demetri Serrano MD Status: Dispensed Ordered On: 03/17/24 1634 Start: 03/17/24 1634 Ordered Dose (Remaining/Total): 50 mg (--/--) Route: oral Frequency: Every 4 hours PRN Ordered Rate/Order Duration: -- / -- Timestamps Action Dose Route Other Information 03/27/24 0827 Given 50 mg oral Performed by: Mala Lion Scanned Package: 42431-481-84, 92045-708-68 enoxaparin (LOVENOX) syringe 30 mg [[id number]] Ordering Provider: Xochitl Esquivel NP Status: Dispensed Ordered On: 03/18/24 1152 Start: 03/18/24 2100 Ordered Dose (Remaining/Total): 30 mg (--/--) Route: subcutaneous Frequency: Every 12 hours scheduled Ordered Rate/Order Duration: -- / -- Timestamps Action Dose Route / Site Other Information 03/27/24 0827 Given 30 mg subcutaneous Right Upper Abdomen Performed by: Mala Lion Scanned Package: 97187-032-72 lidocaine (ASPERCREME) 4 % patch 2 patch [[id number]] Ordering Provider: Xochitl Esquivel NP Status: Dispensed [...] Comments: r arm r shoulder Scanned Package: 2408-6661-23, 9817-5231-40 methocarbamoL (ROBAXIN) tablet 750 mg [[id number]] Ordering Provider: Xochitl Esquivel NP Status: Dispensed Ordered On: 03/18/24 115 Start: 03/18/24 1600 Ordered Dose (Remaining/Total): 750 mg (--/--) Route: oral Frequency: 3 times daily Ordered Rate/Order Duration: -- / -- Timestamps Action Dose Route Other Information 03/27/24 0827 Given 750 mg oral Performed by: Mala Lion Scanned Package: 52240-074-06 traZODone (DESYREL) tablet 50 mg [[id number]] Ordering Provider: Xochitl Esquivel NP Status: Dispensed Ordered On: 03/18/24 1529 Start: 03/18/24 2100 Ordered Dose (Remaining/Total): 50 mg (--/--) Route: oral Frequency: Nightly Ordered Rate/Order Duration: -- / -- Timestamps Action Dose Route Other Information 03/26/242143 Given 50 mg oral Performed by: Mary Zarate Scanned Package: 17723-081-37 polyethylene glycol (MIRALAX) packet 17 g [[id number]] Ordering Provider: Xochitl Esquivel NP Status: Dispensed Ordered On: 03/19/24 0903 Start: 03/19/24 2100 Ordered Dose (Remaining/Total): 17 g (--/--) Route: oral Frequency: 2 times daily Ordered Rate/Order Duration: -- / -- Timestamps Action Dose Route Other Information 03/22/24 0837 Given 17 g oral Performed by: Chichi Mitchell Scanned Package: 73562-614-37 bisacodyL (DULCOLAX) suppository 10 mg [[id number]] Ordering Provider: Xochitl Esquivel NP Status: Dispensed (Past End Date/Time) Ordered On: 03/19/24 0915 Starts/Ends: 03/19/24 1000 - 03/20/24 1000 Ordered Dose (Remaining/Total): 10 mg (1/1) Route: rectal Frequency: Once Ordered Rate/Order Duration: -- / -- (No admins scheduled or recorded for this medication) HYDROmorphone (DILAUDID) injection 0.2 mg [[id number]] Ordering Provider: Demetri Serrano MD Status: Completed (Past End Date/Time) Ordered On: 03/21/24 0528 Starts/Ends: 03/21/24 0600 - 03/21/24 0545 Ordered Dose (Remaining/Total): 0.2 mg (0/1) Route: intravenous Frequency: Once Ordered Rate/Order Duration: -- / 2 Minutes Timestamps Action Dose / Duration Route Other Information 03/21/24 0543 Given 0.2 mg 2 Minutes intravenous Performed by: Elizabeth Bell RN Scanned Package: 37063-926-22 pregabalin (LYRICA) capsule 100 mg [[id number]] Ordering Provider: Shi Levi MD Status: Dispensed Ordered On: 03/21/24 0730 Start: 03/21/24 0900 Ordered Dose (Remaining/Total): 100 mg (--/--) Route: oral Frequency: 3 times daily Ordered Rate/Order Duration: -- / -- Timestamps Action Dose Route Other Information 03/27/24 0827 Given 100 mg oral Performed by: Mala Lion Scanned Package: 74628-615-30 insulin glargine (LANTUS, SEMGLEE) 100 unit/mL injection 2 Units [[id number]] Ordering Provider: Demetri Serrano MD Status: Completed [...] Performed by: Dilcia Torres RN Scanned Package: 22861-721-15 insulin glargine (LANTUS, SEMGLEE) 100 unit/mL injection 30 Units [[id number]] Ordering Provider: Ximena Diaz NP Status: Dispensed [...] Arm Performed by: Mala Lion Scanned Package: 33818-687-26 insulin lispro (HumaLOG, ADMELOG) 100 unit/mL injection 2 Units [[id number]] Ordering Provider: Ximena Diaz NP Status: Verified Ordered On: 03/25/24 0737 Start: 03/25/24 0734 Ordered Dose (Remaining/Total): 2 Units (--/--) Route: subcutaneous Frequency: Every 6 hours PRN Ordered Rate/Order Duration: -- / -- Admin Instructions: Please give with snacks. (No admins scheduled or recorded for this medication) insulin lispro (HumaLOG, ADMELOG) 100 unit/mL injection 20 Units [[id number]] Ordering Provider: Ximena Diaz NP Status: Dispensed [...] Arm Performed by: Mala Lion Scanned Package: 5868-6618-97 * ECIN Note - Radha Campos RN [...] 03/26/24 07 - 03/27/24 0659 Total Total 6251-6319 1140-5013 3374-1393 Total Intake (ml) 520 637 -- 10 [...] ............filed at 03/27/2024 08 Vital Signs 03/26 0703/27 0659 03/27 0703/27 1156 Most Recent Temp (??C) 36.4 - 36.8 36.4 36.4 (97.6) 03/27 700 Pulse 91 - 119 94 94 03/27 07 Resp 16 16 16 03/27 07 SpO2 (%) 93 - 100 94 94 03/27 700 BP 120/69 - 129/71 122/73 122/73 03/27 [...] Bran, 59 y.o. female (: 1965) Room: [place] [address] ( ) LOS: 18 Farzana Bran is [...] comorbidities: <7% Diabetes Provider: PCP Insurance: Payor: [employer]ARE / Plan: MEDICARE SOLUTIONS / [...] juices, no regular soda - please have powder blender meet with patient - please have staff registered nurse meet with patient- needs further education on [...] & Lipid Research Contact Info: New Consults: [phone]) General Endocrine (Non-Diabetes): [phone] (Check 'Treatment Team' assignment for Diabetes 1 vs 2 vs 3) Diabetes After-Hours & Weekends: Diabetes Fellow [phone] or [phone] * Plan of Care - Radha Campos RN - 03/27/2024 9:04 AM CDT Per Rounds: Patient medically stable for discharge. ADD: pending accepting facility and insurance authorization Plan & referrals made/in place: Reached out to liaison Carmen of [facility] regarding status of referral. Patient's Identified Problem/Goal Problem: Ensure acute medical needs are met and patient has a safe discharge plan. Goal: Secure a discharge plan that patient/family are agreeable with and ensure patient has continuum of care. Registered Clinical Dietitian will continue to follow and assist with discharge planning as needed * Consults, Subsequent - Viet Gary MD - 03/26/2024 2:49 PM CDT Endocrinology & Diabetes Brief Note Patient: Farzana Bran, 59 y.o. female (: 1965) Room: [id number] ( ) LOS: 17 Farzana Bran is [...] comorbidities: <7% Diabetes Provider: PCP Insurance: Payor: [facility] [employer]ICARE / Plan: MEDICARE SOLUTIONS / Product Type: [facility] MEDIC[facility] / Home regimen: Lantus 10 units [...] juices, no regular soda - please have powder blender meet with patient - please have staff registered nurse meet with patient- needs further education on [...] & Lipid Research Contact Info: New Consults: [phone]) General Endocrine (Non-Diabetes): [phone] (Check 'Treatment Team' assignment for Diabetes 1 vs 2 vs 3) Diabetes After-Hours & Weekends: Diabetes Fellow [phone] or [phone] * Plan of Care - Radha Campos RN - 03/26/2024 10:43 AM CDT Per Rounds: Patient medically stable for discharge ADD: pending accepting facility and insurance authorization Plan & referrals made/in place: Left voicemail with liaison Carmen of [facility] ([phone]). Patient's Identified Problem/Goal Problem: Ensure acute medical needs are met and patient has a safe discharge plan. Goal: Secure a discharge plan that patient/family are agreeable with and ensure patient has continuum of care. Registered Clinical Dietitian will continue to follow and assist with discharge planning as needed UPDATE: Spoke to Carmen of [facility]. Carmen stated referral is actively being reviewed. [...] for the Shift: ambulation, brace, BG monitoring Cost Control Specialist Patient Centered Goal for Treatment: Mobility, [...] Campos RN - 03/25/2024 9:38 AM CDT [facility] unable to accept patient due to patient care needs exceeds capacity. Re-faxed referral to patient's first choice [facility] to [phone]. UPDATE: Spoke to Alyx of [facility]. Confirmed referral has been received and will be reviewed today. * Consults, Subsequent - Ximena Diaz NP - 03/25/2024 7:38 AM CDT Endocrinology & Diabetes Brief Note Patient: Farzana Bran, 59 y.o. female (: 1965) Room: [id number] ( ) LOS: 16 Farzana Bran is [...] juices, no regular soda - please have powder blender meet with patient - please have staff registered nurse meet with patient- needs further education on [...] & Lipid Research Contact Info: New Consults: [phone]) General Endocrine (Non-Diabetes): [phone] (Check 'Treatment Team' assignment for Diabetes 1 vs 2 vs 3) Diabetes After-Hours & Weekends: Diabetes Fellow [phone] or [phone] * Plan of Care - Maryuri Limon RN - 03/24/2024 5:15 PM CDT Goals: Clinical Goals for the Shift: OOB, monitor Glucose, monitor VS, encourage IS Custodial Patient Centered Goal for Treatment: Mobility, Pain [...] insurance authorization Plan & referrals made/in place: [facility] unable to accept due to patient care needs exceeds capacity Presented list of SNF rehabs. Patient chose following [facility] [place] [facility] and [facility] in [place]. Referrals sent through [facility]. Patient's Identified Problem/Goal Problem: Ensure acute medical needs are met and patient has a safe discharge plan. Goal: Secure a discharge plan that patient/family are agreeable with and ensure patient has continuum of care. Registered Clinical Dietitian will continue to follow and assist with [...] extremity supported - Static Standing-Standing Surface Floor -NB Static Standing-Level of Assistance Minimum assistance - [...] Increased time to complete;Balance;Safety;Reaching all areas of head/face- LE Dressing: Where assessed Chair -NB LE [...] pedal edema. -NB LE Dressing: Equipment Utilized Skin Piler;Sock aid;Dressing stick -NB Toileting: Where assessed Bedside [...] this the discharge summary -NB OT Recommendation [facility] -NB Patient at high risk for [...] Equipment-Currently Using -- None - Level of [place] -- Independent with ADLs;Independent with ambulation;Independent with [...] due to mobility deficits and lack of director of instrumental music support. Pt would benefit from continued skilled [...] 6 Click Score (range 6-24) -- 16 - Score Interpretation -- 38.32 -SM Safe Environment [...] the discharge summary - PT Recommendation/Plan -- [facility] Facility - Patient at high risk for [...] Minimum Assist;Minimal verbal cues -LM Minimum Assist - Bed Mobility Comments 1 [...] technique -LM -- Transfers Transfer -- Yes - Transfer [...] the discharge summary -SM Recommendation/Plan PT Recommendation/Plan [facility] - [facility] - Patient at high risk for [...] Frequency during current admission 5-7x/wk -LM 5-7x/wk -SM Treatment/Interventions during current admission -- Balance Training;Bed mobility;Endurance training;Functional activity;Functional transfer training;Gait training;Neuromuscular re-education;Stair tra ining;Strengthening;Therapeutic activity;Therapeutic exercise;Transfer training - Progress during current admission Slow progress, decreased activity tolerance - -- Time Calculation Start Time 1146 -LM 1413 -SM Stop Time 1216 -LM 1443 -SM Time Calculation (min) 30 min -LM 30 [...] 0659 03/22/24 07 - 03/23/24 0659 03/23/24 0700 - 03/24/24 0659 03/24/24 0700 - 03/25/24 0659 Total Total 0379-9924 5232-8626 4849-9538 Total 6004-9745 0845-7397 7969-3753 Total Intake (ml) -- -- -- -- [...] 03/23 2000 IPC/SCD 03/22 2000 IPC/SCD 03/22 08 IPC/SCD 03/21 2000 IPC/SCD Mechanical Compression Status 03/23 2000 On 03/22 2000 On 03/22 08 On 03/21 2000 Refused * Consults, Ximena Alvarez NP - 03/24/2024 10:10 AM CDT Endocrinology & Diabetes Progress Note Patient: Farzana Bran, 59 y.o. female (: 1965) Room: [id number] ( ) LOS: 15 Farzana Bran is [...] , PTH , 25HYDROVITD , CPEPTIDE , [id number] , IA2AB Lab Results Component Value Date HGBA1C 8.9 (H) 03/11/2024 Assessment & Plan # Type 2 Diabetes Mellitus, Uncontrolled, complicated by Peripheral Neuropathy Current HbA1c and reliability: 8.9%, unreliable 2/2 anemia HbA1c goal based on comorbidities: <7% Diabetes Provider: PCP Insurance: Payor: [employer] / Plan: MEDICARE SOLUTIONS / [...] juices, no regular soda - please have powder blender meet with patient - When NPO, continue [...] & Lipid Research Contact Info: New Consults: [phone]) General Endocrine (Non-Diabetes): [phone] (Check 'Treatment Team' assignment for Diabetes 1 vs 2 vs 3) Diabetes After-Hours & Weekends: Diabetes Fellow [phone] or [phone] * Plan of Care - Dilcia Torres RN - 03/23/2024 9:59 PM CDT Goals: Clinical Goals for the Shift: OOB, monitor Glucose, monitor VS, encourage IS Cost Control Specialist Patient Centered Goal for Treatment: Mobility, Pain management Summary: Dilcia Torres RN * Consults, Shannon Hope MD - 03/23/2024 10:49 AM CDT Images from the original note were not included. Endocrinology & Diabetes Brief Note Patient: Farzana Bran, 59 y.o. female (: 1965) Room: [id number] ( ) LOS: 14 Interval Events & [...] & Lipid Research Contact Info: New Consults: [phone]) General Endocrine (Non-Diabetes): [phone] (Check 'Treatment Team' assignment for Diabetes 1 vs 2 vs 3) Diabetes After-Hours & Weekends: Diabetes Fellow [phone] or [phone] * Plan of Care - Chichi Mitchell - 03/22/2024 5:55 PM CDT Goals: Clinical Goals for the Shift: VSS, ambulate, pain management, wound care, monitor BSG Custodial Patient Centered Goal for Treatment: Mobility, Pain [...] integrity will decrease Outcome: Progressing Flowsheets (Taken 03/22/2024999) Risk for impaired skin integrity will decrease: [...] regimen will improve Outcome: Progressing Flowsheets (Taken 03/22/2024999) Satisfaction with pain management medication regimen will [...] related to Diabetes will improve: Collaborate with dietetics teacher for diabetes evaluation and/or teaching Instruct on [...] Bran, 59 y.o. female (: 1965) Room: [place] [id number] ( ) LOS: 13 Farzana Bran is [...] comorbidities: <7% Diabetes Provider: PCP Insurance: Payor: [facility] [employer] / Plan: MEDICARE SOLUTIONS / Product Type: [facility] MEDICARE / Home regimen: Lantus 10 units [...] & Lipid Research Contact Info: New Consults: [phone]) General Endocrine (Non-Diabetes): [phone] (Check 'Treatment Team' assignment for Diabetes 1 vs 2 vs 3) Diabetes After-Hours & Weekends: Diabetes Fellow [phone] or [phone] Cosigned by Shannon Mancilla MD at 03/22/2024 8:12 PM CDT * Plan of Care - Radha Campos RN - 03/21/2024 1:07 PM CDT Spoke to Chanell of admissions for [facility] ([phone] option 2). Chanell stated referral is currently being reviewed. Will follow. * Consults, Subsequent - Karuna Hurst NP - 03/21/2024 12:39 PM CDT Endocrinology & Diabetes Progress Note Patient: Farzana Bran, 59 y.o. female (: 1965) Room: [place] [address] ( ) LOS: 12 Farzana Barn is a 59 y.o. female with history [...] , PTH , 25HYDROVITD , CPEPTIDE , [id number] , IA2AB Lab Results Component Value Date HGBA1C 8.9 (H) 03/11/2024 Assessment & Plan # Type 2 Diabetes Mellitus, Uncontrolled, complicated by Peripheral Neuropathy Current HbA1c and reliability: 8.9%, unreliable 2/2 anemia HbA1c goal based on comorbidities: <7% Diabetes Provider: PCP Insurance: Payor: [employer]ICARE / Plan: MEDICARE SOLUTIONS / Product Type: [facility] MEDICARE / Home regimen: Lantus 10 units [...] juices, no regular soda - please have powder blender meet with patient - When NPO, continue [...] & Lipid Research Contact Info: New Consults: [phone]) General Endocrine (Non-Diabetes): [phone] (Check 'Treatment Team' assignment for Diabetes 1 vs 2 vs 3) Diabetes After-Hours & Weekends: Diabetes Fellow [phone] or [phone] * Plan of Care - Radha Campos RN - 03/21/2024 9:36 AM CDT Per Rounds: Patient medically stable for discharge ADD: pending accepting facility and insurance authorizatoin Plan & referrals made/in place: Spoke to Chanell of admissions for [facility] ([phone]). Chanell requested additional documentation be faxed to her at [phone]. This was completed. Patient's Identified Problem/Goal Problem: Ensure acute medical needs are met and patient has a safe discharge plan. Goal: Secure a discharge plan that patient/family are agreeable with and ensure patient has continuum of care. Registered Clinical Dietitian will continue to follow and assist with discharge planning as needed * Plan of Care - Elizabeth Bell RN - 03/21/2024 3:46 AM CDT Goals: Clinical Goals for the Shift: Vital signs monitoring, pain control, safe in/out of bed Custodial Patient Centered Goal for Treatment: Mobility, Pain [...] Bran, 59 y.o. female (: 1965) Room: [place] [address] ( ) LOS: 11 Farzana Bran is [...] , PTH , 25HYDROVITD , CPEPTIDE , YAQ91IT , IA2AB Lab Results Component Value Date HGBA1C 8.9 (H) 03/11/2024 Assessment & Plan # Type 2 Diabetes Mellitus, Uncontrolled, complicated by Peripheral Neuropathy Current HbA1c and reliability: 8.9%, unreliable 2/2 anemia HbA1c goal based on comorbidities: <7% Diabetes Provider: PCP Insurance: Payor: [facility] / Plan: MEDICARE SOLUTIONS / Product [...] juices, no regular soda - please have powder blender meet with patient - When NPO, continue [...] & Lipid Research Contact Info: New Consults: [phone]) General Endocrine (Non-Diabetes): [phone] (Check 'Treatment Team' assignment for Diabetes 1 vs 2 vs 3) Diabetes After-Hours & Weekends: Diabetes Fellow [phone] or [phone] * [facility] Note - Radha Campos RN [...] assessed 03/10/24--will not follow Assessments Row Name 03/19/24 2000 03/19/24 1600 [...] damage) Location Orientation: Anterior;Left Assessments Row Name 03/19/24199903/19/24 1600 03/19/24 1200 [...] Evolving Evolving Evolving -- -- Site Assessment Red;[place] Red[place] Red[place] -- -- Natalie-wound Assessment Dry;Intact Dry;Intact Dry;Intact [...] Row Name 03/19/24199903/19/24 1600 03/19/24 1200 03/19/2479903/18/241999 Site Assessment [place] [...] Using -- None -EL -- Level of [place] -- Independent with ADLs;Independent functional transfers;Independent with ambulation -EL -- Lives With -- Alone -EL -- Receives Help From -- Friend(s) supervisor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 Performing Organization Address [facility] [place] [address] * (ABNORMAL) POCT glucose (03/26/2024 8:55 PM CDT) Glucose, POC 211(H) 70 - 199 mg/dL Blood 03/26/2024 8:55 PM CDT 03/26/2024 8:55 PM CDT Chadd Toledo DO LAB POCT ORDERABLES - DEVICE Final Result Performing Organization Address [facility] [place] [address] * POCT glucose (03/26/2024 5:31 PM CDT) Glucose, POC 138 70 - 199 mg/dL Blood 03/26/2024 5:31 PM CDT 03/26/2024 5:31 PM CDT Chadd Toledo DO LAB POCT ORDERABLES - DEVICE Final Result Performing Organization Address [facility] [place] [address] * POCT glucose (03/26/2024 11:43 AM CDT) Glucose, POC 186 70 - 199 mg/dL Blood 03/26/2024 11:4 3 AM CDT 03/26/2024 11:43 AM CDT Chadd Toledo DO LAB POCT ORDERABLES - DEVICE Final Result Performing Organization Address City/[facility] [place] [address] * POCT glucose (03/26/2024 8:00 AM CDT) Glucose, POC 183 70 - 199 mg/dL Blood 03/26/2024 8:00 AM CDT 03/26/2024 8:00 AM CDT Chaddtorres Toledo DO LAB POCT ORDERABLES - DEVICE Final Result Performing Organization Address [facility] de Phone Number [facility] [place] [address] * (ABNORMAL) POCT glucose (03/25/2024 7:53 PM CDT) Glucose, POC 206(H) 70 - 199 mg/dL Blood 03/25/2024 7:53 PM CDT 03/25/2024 7:53 PM CDT Chadd Toledo DO LAB POCT ORDERABLES - DEVICE Final Result Performing Organization Address [facility] de Phone Number [facility] [place] [address] * POCT glucose (03/25/2024 4:53 PM CDT) Glucose, POC 143 70 - 199 mg/dL Blood 03/25/2024 4:53 PM CDT 03/25/2024 4:53 PM CDT Chadd Elias Tre DO LAB POCT ORDERABLES - DEVICE Final Result Performing Organization Address [facility] de Phone Number [facility] [place] [address] * POCT glucose (03/25/2024 11:50 AM CDT) Glucose, POC 178 70 - 199 mg/dL Blood 03/25/2024 11:5 0 AM CDT 03/25/2024 11:50 AM CDT Chaddtorres Griffin Efetorres DO LAB POCT ORDERABLES - DEVICE Final Result Performing Organization Address [facility] Co de Phone Number AJIT [facility] [place] [address] * (ABNORMAL) POCT glucose (03/25/2024 7:54 AM CDT) Glucose, POC 269(H) 70 - 199 mg/dL Blood 03/25/2024 7:54 AM CDT 03/25/2024 7:54 AM CDT Chaddtorres Griffin Efetorres DO LAB POCT ORDERABLES - DEVICE Final Result Performing Organization Address [facility] de Phone Number AJIT [facility] [place] [address] * (ABNORMAL) POCT glucose (03/24/2024 8:53 PM CDT) Glucose, POC 304(H) 70 - 199 mg/dL Blood 03/24/2024 8:53 PM CDT 03/24/2024 8:53 PM CDT Chadd Elias Efetorres DO LAB POCT ORDERABLES - DEVICE Final Result Performing Organization Address [facility] Co de Phone Number AJIT [facility] [place] [address] * (ABNORMAL) POCT glucose (03/24/2024 5:03 PM CDT) Glucose, POC 249(H) 70 - 199 mg/dL Blood 03/24/2024 5:03 PM CDT 03/24/2024 5:03 PM CDT Chaddtorres Griffin Efetorres DO LAB POCT ORDERABLES - DEVICE Final Result Performing Organization Address City/[facility] Co de Phone Number AJIT [facility] [place] [address] * (ABNORMAL) POCT glucose (03/24/2024 11:52 AM CDT) Glucose, POC 218(H) 70 - 199 mg/dL Blood 03/24/2024 11:5 2 AM CDT 03/24/2024 11:52 AM CDT Chadd Toledo DO LAB POCT ORDERABLES - [place] [address] * (ABNORMAL) POCT glucose (03/24/2024 8:29 AM CDT) Glucose, POC 251(H) 70 - 199 mg/dL Blood 03/24/2024 8:29 AM CDT 03/24/2024 8:29 AM CDT Chadd Toledo DO LAB POCT ORDERABLES - DEVICE Final Result Performing Organization Address City/[facility]/ZIP Co de Phone Number [facility] [place] [address] * (ABNORMAL) POCT glucose (03/23/2024 9:17 PM CDT) Glucose, POC 203(H) 70 - 199 mg/dL Blood 03/23/2024 9:17 PM CDT 03/23/2024 9:17 PM CDT Chadd Toledo DO LAB POCT ORDERABLES - DEVICE Final Result Performing Organization Address City/[facility]/ZIP Co de Phone Number AJIT [facility] [place] [address] * (ABNORMAL) POCT glucose (03/23/2024 7:46 PM CDT) Glucose, POC 215(H) 70 - 199 mg/dL Blood 03/23/2024 7:46 PM CDT 03/23/2024 7:46 PM CDT Chadd Toledo DO LAB POCT ORDERABLES - DEVICE Final Result Performing Organization Address [facility] Co de Phone Number [facility] [place] [address] * (ABNORMAL) POCT glucose (03/23/2024 4:51 PM CDT) Glucose, POC 245(H) 70 - 199 mg/dL Blood 03/23/2024 4:51 PM CDT 03/23/2024 4:51 PM CDT Chaddtorres Toledo DO LAB POCT ORDERABLES - DEVICE Final Result Performing Organization Address [facility] de Phone Number [facility] [place] [address] * (ABNORMAL) POCT glucose (03/23/2024 11:00 AM CDT) Glucose, POC 232(H) 70 - 199 mg/dL Blood 03/23/2024 11:0 0 AM CDT 03/23/2024 11:00 AM CDT Chadd Toledo DO LAB POCT ORDERABLES - DEVICE Final Result Performing Organization Address [facility] de Phone Number [facility] [place] [address] * (ABNORMAL) POCT glucose (03/23/2024 8:24 AM CDT) Glucose, POC 297(H) 70 - 199 mg/dL Blood 03/23/2024 8:24 AM CDT 03/23/2024 8:24 AM CDT Chadd Griffin Efetorres DO LAB POCT ORDERABLES - DEVICE Final Result Performing Organization Address [facility] de Phone Number [facility] [place] [address] * (ABNORMAL) POCT glucose (03/22/2024 7:48 PM CDT) Glucose, POC 290(H) 70 - 199 mg/dL Blood 03/22/2024 7:48 PM CDT 03/22/2024 7:48 PM CDT Chadd Toledo DO LAB POCT ORDERABLES - DEVICE Final Result Performing Organization Address [facility] de Phone Number [facility] [place] [address] * (ABNORMAL) POCT glucose (03/22/2024 4:50 PM CDT) Glucose, POC 248(H) 70 - 199 mg/dL Blood 03/22/2024 4:50 PM CDT 03/22/2024 4:50 PM CDT Chadd Elias Efetorres DO LAB POCT ORDERABLES - DEVICE Final Result Performing Organization Address [facility] de Phone Number [facility] [place] [address] * (ABNORMAL) POCT glucose (03/22/2024 12:10 PM CDT) Glucose, POC 204(H) 70 - 199 mg/dL Blood 03/22/2024 12:1 0 PM CDT 03/22/2024 12:10 PM CDT Chaddtorres Griffni Efetorres DO LAB POCT ORDERABLES - DEVICE Final Result Performing Organization Address [facility] Co de Phone Number [facility] [place] [address] * (ABNORMAL) POCT glucose (03/22/2024 8:17 AM CDT) Glucose, POC 218(H) 70 - 199 mg/dL Blood 03/22/2024 8:17 AM CDT 03/22/2024 8:17 AM CDT us Chadd Toledo DO LAB POCT ORDERABLES - DEVICE Final Result Performing Organization Address [facility] [place] [address] * POCT glucose (03/21/2024 8:44 PM CDT) Glucose, POC 175 70 - 199 mg/dL Blood 03/21/2024 8:44 PM CDT 03/21/2024 8:44 PM CDT us Chadd Toledo DO LAB POCT ORDERABLES - DEVICE Final Result Performing Organization Address [facility]/ZIP Co de Phone Number [facility] [place] [address] * POCT glucose (03/21/2024 5:01 PM CDT) Glucose, POC 172 70 - 199 mg/dL Blood 03/21/2024 5:01 PM CDT 03/21/2024 5:01 PM CDT us Chadd Toledo DO LAB POCT ORDERABLES - DEVICE Final Result Performing Organization Address City/[facility] Co de Phone Number [facility] [place] [address] * (ABNORMAL) POCT glucose (03/21/2024 11:33 AM CDT) Glucose, POC 221(H) 70 - 199 mg/dL Blood 03/21/2024 11:3 3 AM CDT 03/21/2024 11:33 AM CDT Chadd Toledo DO LAB POCT ORDERABLES - DEVICE Final Result Performing Organization Address [facility] Co de Phone Number [facility] [place] [address] * (ABNORMAL) POCT glucose (03/21/2024 7:54 AM CDT) Glucose, POC 208(H) 70 - 199 mg/dL Blood 03/21/2024 7:54 AM CDT 03/21/2024 7:54 AM CDT Chadd Toledo DO LAB POCT ORDERABLES - DEVICE Final Result Performing Organization Address [facility] Co de Phone Number [facility] [place] [address] * (ABNORMAL) POCT glucose (03/20/2024 8:02 PM CDT) Glucose, POC 212(H) 70 - 199 mg/dL Blood 03/20/2024 8:02 PM CDT 03/20/2024 8:02 PM CDT Chadd Toledo DO LAB POCT ORDERABLES - DEVICE Final Result Performing Organization Address [facility] Co de Phone Number [facility] [place] [address] * POCT glucose (03/20/2024 4:48 PM CDT) Glucose, POC 156 70 - 199 mg/dL Blood 03/20/2024 4:48 PM CDT 03/20/2024 4:48 PM CDT Chadd Toledo DO LAB POCT ORDERABLES - DEVICE Final Result Performing Organization Address [facility] de Phone Number [facility] [place] [address] * (ABNORMAL) POCT glucose (03/20/2024 12:11 PM CDT) Glucose, POC 223(H) 70 - 199 mg/dL Blood 03/20/2024 12:1 1 PM CDT 03/20/2024 12:11 PM CDT Chadd Toledo DO LAB POCT ORDERABLES - DEVICE Final Result Performing Organization Address [facility] de Phone Number [facility] [place] [address] * POCT glucose (03/20/2024 7:21 AM CDT) Glucose, POC 195 70 - 199 mg/dL Blood 03/20/2024 7:21 AM CDT 03/20/2024 7:21 AM CDT Chadd Toledo DO LAB POCT ORDERABLES - DEVICE Final Result Performing Organization Address [facility] de Phone Number [facility] [place] [address] * eGFR (03/19/2024 11:12 PM CDT) eGFR [...] Toledo DO LAB BLOOD ORDERABLES Final Result [facility] Department of Laboratories [place], [place] [id number] * (ABNORMAL) CBC without differential (03/19/2024 11:12 PM CDT) Pathologist [facility] WBC 4.9 3.8 - 9.9 K/cumm Hgb 9.8(L) 11.9 - 15.5 g/dL [facility] Hct 29.7(L) 35.6 - 45.5 % [facility] Plt 173 150 - 400 K/cumm [facility] MPV 8.7(L) 9.1 - 12.3 fL [facility] RBC 3.46(L) 3.90 - 5.20 M/cumm [facility] MCV 85.8 81.3 - 96.4 fL [facility] MCH 28.3 27.1 - 33.3 pg [facility] MCHC 33.0 32.3 - 35.7 g/dL [facility] RDW CV 15.9(H) 11.1 - 14.9 % [facility] RDW SD 47.0 35.7 - 48.1 fL [facility] NRBC abs 0.00 0.00 - 0.01 K/cumm [facility] Blood 03/19/2024 11:1 2 PM CDT 03/20/2024 12:05 AM CDT Chadd Toledo DO LAB BLOOD ORDERABLES Final Result Performing Organization Address [facility] Co de Phone Number [facility] [place] [address] * Phosphorus (03/19/2024 11:12 PM CDT) Pathologist [facility] Phosphorus, pl 3.4 2.3 - 4.5 mg/dL Blood 03/19/2024 11:1 2 PM CDT 03/20/2024 12:05 AM CDT Chadd Toledo DO LAB BLOOD ORDERABLES Final Result Performing Organization Address [facility] de Phone Number [facility] [place] [address] * Magnesium (03/19/2024 11:12 PM CDT) Pathologist [facility] Magnesium 1.8 1.4 - 2.5 mg/dL Blood 03/19/2024 11:1 2 PM CDT 03/20/2024 12:05 AM CDT Chadd Toledo LAB BLOOD ORDERABLES Final Result Performing Organization Address [facility] [place] [address] * (ABNORMAL) Basic metabolic panel (03/19/2024 11:12 PM CDT) Pathologist [facility] Sodium 138 135 - 145 mmol/L Potassium, pl 3.8 3.3 - 4.9 mmol/L [facility] Chloride 102 97 - 110 mmol/L [facility] CO2 28 22 - 32 mmol/L [facility] Anion gap 8 2 - 15 mmol/L [facility] BUN 15 6 - 25 mg/dL [facility] Creatinine 0.71 0.60 - 1.10 mg/dL [facility] Glucose 201(H) 70 - 199 mg/dL [facility] Comment: Interpretive Data Fasting glucose >/= 126 [...] 2022. Calcium 8.7 8.5 - 10.3 mg/dL [facility] Blood 03/19/2024 11:1 2 PM CDT 03/20/2024 12:05 AM CDT Chadd Toledo DO LAB BLOOD ORDERABLES Final Result Performing Organization Address City/[facility]/ZIP Co de Phone Number [facility] [place] [address] * POCT glucose (03/19/2024 7:45 PM CDT) [facility] [address] Glucose, POC 146 70 - 199 mg/dL Blood 03/19/2024 7:45 PM CDT 03/19/2024 7:45 PM CDT Chadd Toledo DO LAB POCT ORDERABLES - DEVICE Final Result Performing Organization Address [facility]/ZIP Co de Phone Number [facility] [place] [address] * POCT glucose (03/19/2024 4:53 PM CDT) Glucose, POC 151 70 - 199 mg/dL Blood 03/19/2024 4:53 PM CDT 03/19/2024 4:53 PM CDT Chadd Toledo DO LAB POCT ORDERABLES - DEVICE Final Result Performing Organization Address [facility] Co de Phone Number [facility] [place] [address] * (ABNORMAL) POCT glucose (03/19/2024 11:59 AM CDT) Glucose, POC 204(H) 70 - 199 mg/dL Blood 03/19/2024 11:5 9 AM CDT 03/19/2024 11:59 AM CDT Chadd Toledo DO LAB POCT ORDERABLES - DEVICE Final Result Performing Organization Address [facility] de Phone Number [facility] [place] [address] * (ABNORMAL) POCT glucose (03/19/2024 7:42 AM CDT) Glucose, POC 229(H) 70 - 199 mg/dL Blood 03/19/2024 7:42 AM CDT 03/19/2024 7:42 AM CDT Cahdd Toledo DO LAB POCT ORDERABLES - DEVICE Final Result Performing Organization Address [facility] Co de Phone Number [facility] [place] [address] * eGFR (03/18/2024 10:07 PM CDT) eGFR [...] [facility] Co de Phone Number [facility] [place] [address] * (ABNORMAL) CBC without differential (03/18/2024 10:07 PM CDT) WBC 4.3 3.8 - 9.9 K/cumm Hgb 9.9(L) 11.9 - 15.5 g/dL [facility] Hct 30.2(L) 35.6 - 45.5 % [facility] Plt 147(L) 150 - 400 K/cumm [facility] MPV 8.3(L) 9.1 - 12.3 fL [facility] RBC 3.54(L) 3.90 - 5.20 M/cumm [facility] MCV 85.3 81.3 - 96.4 fL [facility] MCH 28.0 27.1 - 33.3 pg [facility] MCHC 32.8 32.3 - 35.7 g/dL [facility] RDW CV 15.7(H) 11.1 - 14.9 % [facility] RDW SD 46.8 35.7 - 48.1 fL [facility] NRBC abs 0.00 0.00 - 0.01 K/cumm [facility] Blood 03/18/2024 10:0 7 PM CDT 03/18/2024 10:38 PM CDT Chadd Toledo DO LAB BLOOD ORDERABLES Final Result Performing Organization Address [facility]/ZIP Co de Phone Number [facility] [place] [address] * Phosphorus (03/18/2024 10:07 PM CDT) Phosphorus, pl 2.9 2.3 - 4.5 mg/dL Blood 03/18/2024 10:0 7 PM CDT 03/18/2024 10:39 PM CDT Chadd Toledo DO LAB BLOOD ORDERABLES Final Result Performing Organization Address City/[facility] Co de Phone Number [facility] [place] [address] * Magnesium (03/18/2024 10:07 PM CDT) Magnesium 1.8 1.4 - 2.5 mg/dL Blood 03/18/2024 10:0 7 PM CDT 03/18/2024 10:39 PM CDT Chadd Toledo DO LAB BLOOD ORDERABLES Final Result [facility] [place] [address] * (ABNORMAL) Basic metabolic panel (03/18/2024 10:07 PM CDT) Sodium 137 135 - 145 mmol/L Potassium, pl 3.9 3.3 - 4.9 mmol/L [facility] Chloride 100 97 - 110 mmol/L [facility] CO2 29 22 - 32 mmol/L [facility] Anion gap 8 2 - 15 mmol/L [facility] BUN 12 6 - 25 mg/dL [facility] Creatinine 0.64 0.60 - 1.10 mg/dL [facility] Glucose 210(H) 70 - 199 mg/dL [facility] Comment: Interpretive Data Fasting glucose >/= 126 [...] 2022. Calcium 8.9 8.5 - 10.3 mg/dL [facility] Blood 03/18/2024 10:0 7 PM CDT 03/18/2024 10:39 PM CDT us Chadd Toledo DO LAB BLOOD ORDERABLES Final Result [facility] [place] [address] * (ABNORMAL) POCT glucose (03/18/2024 8:40 PM CDT) Glucose, POC 236(H) 70 - 199 mg/dL Blood 03/18/2024 8:40 PM CDT 03/18/2024 8:40 PM CDT Chadd Toledo DO LAB POCT ORDERABLES - DEVICE Final Result Performing Organization Address [facility] de Phone Number [facility] [place] [address] * POCT glucose (03/18/2024 4:49 PM CDT) Glucose, POC 146 70 - 199 mg/dL Blood 03/18/2024 4:49 PM CDT 03/18/2024 4:49 PM CDT Chadd Toledo DO LAB POCT ORDERABLES - DEVICE Final Result Performing Organization Address [facility] Phone Number [facility] [place] [address] * (ABNORMAL) POCT glucose (03/18/2024 11:55 AM CDT) Glucose, POC 247(H) 70 - 199 mg/dL Blood 03/18/2024 11:5 5 AM CDT 03/18/2024 11:55 AM CDT Chadd DE LA FUENTE POCT ORDERABLES - DEVICE Final Result Performing Organization Address [facility] Phone Number [facility] [place] [address] * Osmolality, blood (03/18/2024 9:52 AM CDT) Osmo 296 275 - 300 mOsm/kg Blood 03/18/2024 9:52 AM CDT 03/18/2024 10:02 AM CDT us Xochitl Esquivel ARCHIVES DIRECTOR LAB BLOOD ORDERABLES F inal Result Performing Organization Address [facility]/State/ZIP Co de Phone Number [facility] [place] [address] * Sodium, urine, random (03/18/2024 9:52 AM CDT) Sodium, ur 54 mmol/L Comment: Interpretive Data No reference range established. Current interpretive data was last revised 2018. Urine 03/18/2024 9:52 AM CDT 03/18/2024 10:02 AM CDT Xochitl Esquivel ARCHIVES DIRECTOR LAB URINE ORDERABLES F inal Result Performing Organization Address [facility] de Phone Number [facility] [place] [address] * Creatinine, urine, random (03/18/2024 9:52 AM CDT) Creatinine Ur 15.0 mg/dL Comment: Interpretive Data No reference range established. Current interpretive data was last revised 2018. Urine 03/18/2024 9:52 AM CDT 03/18/2024 10:02 AM CDT us Xochitl Esquivel ARCHIVES DIRECTOR LAB URINE ORDERABLES F inal Result Performing Organization Address [facility] de Phone Number [facility] [place] [address] * Osmolality, urine (03/18/2024 9:52 AM CDT) Osmo, ur 221 mOsm/kg Urine 03/18/2024 9:52 AM CDT 03/18/2024 10:02 AM CDT us Xochitl Esquivel ARCHIVES DIRECTOR LAB URINE ORDERABLES F inal Result Performing Organization Address [facility] Co de Phone Number [facility] [place] [address] * (ABNORMAL) POCT glucose (03/18/2024 7:56 AM CDT) [facility] [address] Glucose, POC 218(H) 70 - 199 mg/dL Blood 03/18/2024 7:56 AM CDT 03/18/2024 7:56 AM CDT Chadd Toledo DO LAB POCT ORDERABLES - DEVICE Final Result Performing Organization Address [facility] [place] [address] * Lidocaine level (03/18/2024 5:50 AM CDT) [facility] [address] Lidocaine (Xylocaine) 3.1 1.5 - 5.0 mcg/mL Blood 03/18/2024 5:50 AM CDT 03/18/2024 6:18 AM CDT Narrative [facility] - 03/18/2024 6:47 AM CDT Draw 24 hours after infusion started. Chadd Toledo DO LAB BLOOD ORDERABLES Final Result Performing Organization Address [facility] [place] [address] * eGFR (03/17/2024 11:15 PM CDT) [facility] [address] eGFR >90 >=60 mL/min/1. 73 m2 [...] Toledo DO LAB BLOOD ORDERABLES Final Result [facility] [place] [address] * (ABNORMAL) CBC without differential (03/17/2024 11:15 PM CDT) WBC 3.9 3.8 - 9.9 K/cumm Hgb 9.7(L) 11.9 - 15.5 g/dL [facility] Hct 29.7(L) 35.6 - 45.5 % [facility] Plt 150 150 - 400 K/cumm [facility] MPV 8.6(L) 9.1 - 12.3 fL [facility] RBC 3.48(L) 3.90 - 5.20 M/cumm [facility] MCV 85.3 81.3 - 96.4 fL [facility] MCH 27.9 27.1 - 33.3 pg [facility] MCHC 32.7 32.3 - 35.7 g/dL [facility] RDW CV 15.6(H) 11.1 - 14.9 % [facility] RDW SD 46.0 35.7 - 48.1 fL [facility] NRBC abs 0.00 0.00 - 0.01 K/cumm [facility] Blood 03/17/2024 11:1 5 PM CDT 03/18/2024 12:34 AM CDT Chadd Toledo DO LAB BLOOD ORDERABLES Final Result Performing Organization Address City/[facility] Co de Phone Number [facility] [place] [address] * Phosphorus (03/17/2024 11:15 PM CDT) Pathologist [facility] Phosphorus, pl 2.9 2.3 - 4.5 mg/dL Blood 03/17/2024 11:1 5 PM CDT 03/18/2024 12:35 AM CDT Chadd Toledo LAB BLOOD ORDERABLES Final Result Performing Organization Address City/[facility] [place] [address] * Magnesium (03/17/2024 11:15 PM CDT) [facility] [address] Magnesium 1.8 1.4 - 2.5 mg/dL Blood 03/17/2024 11:1 5 PM CDT 03/18/2024 12:35 AM CDT Chadd Elias Tre LAB BLOOD ORDERABLES Final Result Performing Organization Address City/[facility] [place] [address] * Basic metabolic panel (03/17/2024 11:15 PM CDT) [facility] [address] Sodium 137 135 - 145 mmol/L Potassium, pl 3.9 3.3 - 4.9 mmol/L [facility] Chloride 100 97 - 110 mmol/L [facility] CO2 30 22 - 32 mmol/L [facility] Anion gap 7 2 - 15 mmol/L [facility] BUN 12 6 - 25 mg/dL [facility] Creatinine 0.63 0.60 - 1.10 mg/dL [facility] Glucose 180 70 - 199 mg/dL [facility] Comment: Interpretive Data Fasting glucose >/= 126 [...] 2022. Calcium 9.0 8.5 - 10.3 mg/dL [facility] Blood 03/17/2024 11:1 5 PM CDT 03/18/2024 12:35 AM CDT Chadd Toledo DO LAB BLOOD ORDERABLES Final Result [facility] [place] [address] * Lidocaine level (03/17/2024 11:15 PM CDT) [facility] [address] Lidocaine (Xylocaine) 2.7 1.5 - 5.0 mcg/mL Blood 03/17/2024 11:1 5 PM CDT 03/18/2024 12:27 AM CDT Narrative [facility] - 03/18/2024 1:00 AM CDT Draw 24 hours after infusion started. Chadd Toledo DO LAB BLOOD ORDERABLES Final Result [facility] [place] [address] * POCT glucose (03/17/2024 10:48 PM CDT) Glucose, POC 193 70 - 199 mg/dL Blood 03/17/2024 10:4 8 PM CDT 03/17/2024 10:48 PM CDT Chadd Toledo DO LAB POCT ORDERABLES - DEVICE Final Result Performing Organization Address [facility] Co de Phone Number [facility] [place] [address] * (ABNORMAL) POCT glucose (03/17/2024 8:15 PM CDT) Glucose, POC 227(H) 70 - 199 mg/dL Blood 03/17/2024 8:15 PM CDT 03/17/2024 8:15 PM CDT Chadd Toledo DO LAB POCT ORDERABLES - DEVICE Final Result Performing Organization Address [facility] de Phone Number [facility] [place] [address] * (ABNORMAL) POCT glucose (03/17/2024 6:05 PM CDT) Glucose, POC 221(H) 70 - 199 mg/dL Blood 03/17/2024 6:05 PM CDT 03/17/2024 6:05 PM CDT Chadd Toledo DO LAB POCT ORDERABLES - DEVICE Final Result Performing Organization Address [facility] de Phone Number [facility] [place] [address] * Critical Care (03/17/2024 2:09 PM CDT) [...] plan with the patient's team and other medical/direct sales consultant staff. This time was in addition [...] - DEVICE Final Result Performing Organization Address [facility]/ZIP Co de Phone Number [facility] [place] [address] * (ABNORMAL) POCT glucose (03/17/2024 8:55 AM CDT) Glucose, POC 204(H) 70 - 199 mg/dL Blood 03/17/2024 8:55 AM CDT 03/17/2024 8:55 AM CDT Chadd Toledo DO LAB POCT ORDERABLES - DEVICE Final Result Performing Organization Address City/[facility] Co de Phone Number [facility] [place] [address] * POCT glucose (03/17/2024 3:02 AM CDT) Glucose, POC 195 70 - 199 mg/dL Blood 03/17/2024 3:02 AM CDT 03/17/2024 3:02 AM CDT us Chadd Toledo DO LAB POCT ORDERABLES - DEVICE Final Result [facility] [place] [address] * eGFR (03/16/2024 10:09 PM CDT) Pathologist [facility] eGFR >90 >=60 mL/min/1. 73 m2 [...] BLOOD ORDERABLES Final Result Performing Organization Address [facility] Co de Phone Number [facility] Department [place] [address] * (ABNORMAL) CBC without differential (03/16/2024 10:09 PM CDT) Pathologist [facility] WBC 3.5(L) 3.8 - 9.9 K/cumm Hgb 9.5(L) 11.9 - 15.5 g/dL [facility] Hct 28.7(L) 35.6 - 45.5 % [facility] Plt 129(L) 150 - 400 K/cumm [facility] MPV 8.6(L) 9.1 - 12.3 fL [facility] RBC 3.40(L) 3.90 - 5.20 M/cumm [facility] MCV 84.4 81.3 - 96.4 fL [facility] MCH 27.9 27.1 - 33.3 pg [facility] MCHC 33.1 32.3 - 35.7 g/dL [facility] RDW CV 15.1(H) 11.1 - 14.9 % [facility] RDW SD 44.1 35.7 - 48.1 fL [facility] NRBC abs 0.00 0.00 - 0.01 K/cumm [facility] Blood 03/16/2024 10:0 9 PM CDT 03/16/2024 10:29 PM CDT us Chadd Toledo DO LAB BLOOD ORDERABLES Final Result Performing Organization Address [facility] Co de Phone Number [facility] [place] [address] * Phosphorus (03/16/2024 10:09 PM CDT) Pathologist [facility] Phosphorus, pl 2.8 2.3 - 4.5 mg/dL Blood 03/16/2024 10:0 9 PM CDT 03/16/2024 10:28 PM CDT us Chadd Toledo DO LAB BLOOD ORDERABLES Final Result [facility] One [facility] [place] [address] * Magnesium (03/16/2024 10:09 PM CDT) [facility] [address] Magnesium 1.7 1.4 - 2.5 mg/dL Blood 03/16/2024 10:0 9 PM CDT 03/16/2024 10:28 PM CDT Chadd Toledo LAB BLOOD ORDERABLES Final Result Performing Organization Address [facility] Co de Phone Number [facility] [place] [address] * (ABNORMAL) Basic metabolic panel (03/16/2024 10:09 PM CDT) [facility] [address] Sodium 136 135 - 145 mmol/L Potassium, pl 4.0 3.3 - 4.9 mmol/L [facility] Chloride 97 97 - 110 mmol/L [facility] CO2 31 22 - 32 mmol/L [facility] Anion gap 8 2 - 15 mmol/L [facility] BUN 13 6 - 25 mg/dL [facility] Creatinine 0.71 0.60 - 1.10 mg/dL [facility] Glucose 222(H) 70 - 199 mg/dL [facility] Comment: Interpretive Data Fasting glucose >/= 126 [...] 2022. Calcium 8.8 8.5 - 10.3 mg/dL [facility] Blood 03/16/2024 10:0 9 PM CDT 03/16/2024 10:28 PM CDT Chadd Griffin Efetorres DO LAB BLOOD ORDERABLES Final Result Performing Organization Address City/[facility] Co de Phone Number [facility] [place] [address] * (ABNORMAL) POCT glucose (03/16/2024 10:08 PM CDT) Glucose, POC 233(H) 70 - 199 mg/dL Blood 03/16/2024 10:0 8 PM CDT 03/16/2024 10:08 PM CDT Chadd Toledo DO LAB POCT ORDERABLES - DEVICE Final Result Performing Organization Address [facility] de Phone Number [facility] [place] [address] * Critical Care (03/16/2024 8:11 PM CDT) [...] plan with the ICU team and other medical/direct sales consultant staff, making frequent assessments and decisions [...] 6:39 PM CDT 03/16/2024 6:39 PM CDT us Chadd Toledo DO LAB POCT ORDERABLES - DEVICE Final Result Performing Organization Address [facility] de Phone Number [facility] [place] [address] * POCT glucose (03/16/2024 12:13 PM CDT) Glucose, POC 194 70 - 199 mg/dL Blood 03/16/2024 12:1 3 PM CDT 03/16/2024 12:13 PM CDT us Chadd Toledo DO LAB POCT ORDERABLES - DEVICE Final Result Performing Organization Address [facility] Co de Phone Number [facility] [place] [address] * Critical Care (03/16/2024 11:56 AM CDT) [...] plan with the ICU team and other medical/direct sales consultant staff, making frequent assessments and decisions [...] POCT ORDERABLES - DEVICE Final Result [facility] [facility] [place] [address] * POCT glucose (03/16/2024 10:11 AM CDT) Glucose, POC 130 70 - 199 mg/dL Blood 03/16/2024 10:1 1 AM CDT 03/16/2024 10:11 AM CDT us Chadd Toledo DO LAB POCT ORDERABLES - DEVICE Final Result Performing Organization Address [facility] de Phone Number AJIT [facility] [place] [address] * POCT glucose (03/16/2024 7:14 AM CDT) Glucose, POC 128 70 - 199 mg/dL Blood 03/16/2024 7:14 AM CDT 03/16/2024 7:14 AM CDT Chadd Toledo DO LAB POCT ORDERABLES - DEVICE Final Result Performing Organization Address [facility] [place] [address] * Lidocaine level (03/16/2024 6:01 AM CDT) Lidocaine (Xylocaine) 2.9 1.5 - 5.0 mcg/mL Blood 03/16/2024 6:01 AM CDT 03/16/2024 6:14 AM CDT Narrative AJIT [facility] - 03/16/2024 6:42 AM CDT Draw 24 hours after infusion started. Chadd Toledo DO LAB BLOOD ORDERABLES Final Result Performing Organization Address [facility] de Phone Number [facility] [place] [address] * POCT glucose (03/16/2024 6:00 AM CDT) Glucose, POC 129 70 - 199 mg/dL Blood 03/16/2024 6:00 AM CDT 03/16/2024 6:00 AM CDT Chadd Toledo DO LAB POCT ORDERABLES - DEVICE Final Result Performing Organization Address [facility] Co de Phone Number AJIT Wagner [facility] [place] [address] * POCT glucose (03/16/2024 5:00 AM CDT) Glucose, POC 130 70 - 199 mg/dL Blood 03/16/2024 5:00 AM CDT 03/16/2024 5:00 AM CDT Chadd Toledo DO LAB POCT ORDERABLES - DEVICE Final Result Performing Organization Address [facility] de Phone Number AJIT Wagner [facility] [place] [address] * Critical Care (03/16/2024 4:44 AM CDT) [...] plan with the ICU team and other medical/direct sales consultant staff, making frequent assessments and decisions [...] - DEVICE Final Result Performing Organization Address City/[facility]/ZIP Co de Phone Number [facility] [place] [address] * POCT glucose (03/16/2024 3:01 AM CDT) Glucose, POC 154 70 - 199 mg/dL Blood 03/16/2024 3:01 AM CDT 03/16/2024 3:01 AM CDT us Chadd Toledo DO LAB POCT ORDERABLES - DEVICE Final Result [facility] [place] [address] * POCT glucose (03/16/2024 2:03 AM CDT) Glucose, POC 169 70 - 199 mg/dL Blood 03/16/2024 2:03 AM CDT 03/16/2024 2:03 AM CDT us Chadd Toledo DO LAB POCT ORDERABLES - DEVICE Final Result Performing Organization Address [facility] Co de Phone Number [facility] [place] [address] * POCT glucose (03/16/2024 1:06 AM CDT) Glucose, POC 176 70 - 199 mg/dL Blood 03/16/2024 1:06 AM CDT 03/16/2024 1:06 AM CDT Chadd Toledo DO LAB POCT ORDERABLES - DEVICE Final Result Performing Organization Address [facility] de Phone Number [facility] [place] [address] * POCT glucose (03/16/2024 12:10 AM CDT) Glucose, POC 153 70 - 199 mg/dL Blood 03/16/2024 12:1 0 AM CDT 03/16/2024 12:10 AM CDT Chadd Toledo DO LAB POCT ORDERABLES - DEVICE Final Result Performing Organization Address [facility] Co de Phone Number [facility] [place] [address] * POCT glucose (03/15/2024 11:09 PM CDT) Glucose, POC 122 70 - 199 mg/dL Blood 03/15/2024 11:0 9 PM CDT 03/15/2024 11:09 PM CDT Chadd Toledo DO LAB POCT ORDERABLES - DEVICE Final Result Performing Organization Address [facility] Co de Phone Number [facility]IT [facility] [place] [address] * POCT glucose (03/15/2024 9:59 PM CDT) Glucose, POC 130 70 - 199 mg/dL Blood 03/15/2024 9:59 PM CDT 03/15/2024 9:59 PM CDT Chadd Toledo DO LAB POCT ORDERABLES - DEVICE Final Result Performing Organization Address [facility] Co de Phone Number [facility] [place] [address] * POCT glucose (03/15/2024 8:53 PM CDT) Pathologist [facility] Glucose, POC 161 70 - 199 mg/dL Blood 03/15/2024 8:53 PM CDT 03/15/2024 8:53 PM CDT Chadd Toledo DO LAB POCT ORDERABLES - DEVICE Final Result Performing Organization Address [facility] de Phone Number AJIT [facility] [place] [address] * eGFR (03/15/2024 8:51 PM CDT) eGFR [...] Toledo DO LAB BLOOD ORDERABLES Final Result [facility] [place] [address] * (ABNORMAL) CBC without differential (03/15/2024 8:51 PM CDT) WBC 4.8 3.8 - 9.9 K/cumm Hgb 9.4(L) 11.9 - 15.5 g/dL [facility] Hct 28.2(L) 35.6 - 45.5 % [facility] Plt 119(L) 150 - 400 K/cumm [facility] MPV 9.0(L) 9.1 - 12.3 fL [facility] RBC 3.35(L) 3.90 - 5.20 M/cumm [facility] MCV 84.2 81.3 - 96.4 fL [facility] MCH 28.1 27.1 - 33.3 pg [facility] MCHC 33.3 32.3 - 35.7 g/dL [facility] RDW CV 14.7 11.1 - 14.9 % [facility] RDW SD 43.4 35.7 - 48.1 fL [facility] NRBC abs 0.00 0.00 - 0.01 K/cumm [facility] Blood 03/15/2024 8:51 PM CDT 03/15/2024 9:04 PM CDT Chadd Toledo DO LAB BLOOD ORDERABLES Final Result Performing Organization Address City/[facility] Co de Phone Number [facility] [place] [address] * Phosphorus (03/15/2024 8:51 PM CDT) [facility] [address] Phosphorus, pl 2.7 2.3 - 4.5 mg/dL Blood 03/15/2024 8:51 PM CDT 03/15/2024 9:04 PM CDT Chadd Toledo LAB BLOOD ORDERABLES Final Result Performing Organization Address [facility] Co de Phone Number [facility] [place] [address] * Magnesium (03/15/2024 8:51 PM CDT) [facility] [address] Magnesium 1.7 1.4 - 2.5 mg/dL Blood 03/15/2024 8:51 PM CDT 03/15/2024 9:04 PM CDT Chadd Elias Tre DO LAB BLOOD ORDERABLES Final Result Performing Organization Address City/[facility] [place] [address] * Basic metabolic panel (03/15/2024 8:51 PM CDT) [facility] [address] Sodium 136 135 - 145 mmol/L Potassium, pl 3.8 3.3 - 4.9 mmol/L [facility] Chloride 99 97 - 110 mmol/L [facility] CO2 31 22 - 32 mmol/L [facility] Anion gap 6 2 - 15 mmol/L [facility] BUN 15 6 - 25 mg/dL [facility] Creatinine 0.70 0.60 - 1.10 mg/dL [facility] Glucose 158 70 - 199 mg/dL [facility] Comment: Interpretive Data Fasting glucose >/= 126 [...] 2022. Calcium 8.7 8.5 - 10.3 mg/dL [facility] Blood 03/15/2024 8:51 PM CDT 03/15/2024 9:04 PM CDT Chadd Toledo DO LAB BLOOD ORDERABLES Final Result Performing Organization Address City/[facility]/ZIP Co de Phone Number [facility] [place] [address] * POCT glucose (03/15/2024 8:05 PM CDT) Glucose, POC 188 70 - 199 mg/dL Blood 03/15/2024 8:05 PM CDT 03/15/2024 8:05 PM CDT Chadd Toledo DO LAB POCT ORDERABLES - DEVICE Final Result [facility] [place] [address] * (ABNORMAL) POCT glucose (03/15/2024 7:04 PM CDT) Glucose, POC 221(H) 70 - 199 mg/dL Blood 03/15/2024 7:04 PM CDT 03/15/2024 7:04 PM CDT Chadd Toledo DO LAB POCT ORDERABLES - DEVICE Final Result Performing Organization Address [facility] de Phone Number [facility] [place] [address] * (ABNORMAL) POCT glucose (03/15/2024 6:09 PM CDT) Glucose, POC 217(H) 70 - 199 mg/dL Blood 03/15/2024 6:09 PM CDT 03/15/2024 6:09 PM CDT Chadd Toledo DO LAB POCT ORDERABLES - DEVICE Final Result Performing Organization Address [facility] de Phone Number [facility] [place] [address] * (ABNORMAL) POCT glucose (03/15/2024 5:38 PM CDT) Glucose, POC 200(H) 70 - 199 mg/dL Blood 03/15/2024 5:38 PM CDT 03/15/2024 5:38 PM CDT Chadd Toledo DO LAB POCT ORDERABLES - DEVICE Final Result Performing Organization Address [facility] [place] [address] * Critical Care (03/15/2024 5:28 PM CDT) [...] plan with the ICU team and other medical/direct sales consultant staff, making frequent assessments and decisions [...] - DEVICE Final Result Performing Organization Address [facility] Co de Phone Number [facility] [place] [address] * POCT glucose (03/15/2024 3:09 PM CDT) Glucose, POC 169 70 - 199 mg/dL Blood 03/15/2024 3:09 PM CDT 03/15/2024 3:09 PM CDT Chadd Toledo DO LAB POCT ORDERABLES - DEVICE Final Result Performing Organization Address [facility] Co de Phone Number [facility] [place] [address] * XR Spine Thoracic 3 Vw (03/15/2024 [...] it. Electronically signed by: Yi Tavarez MD us Chadd Toledo DO IMG XR PROCEDURES [...] - DEVICE Final Result Performing Organization Address [facility] de Phone Number [facility] [place] [address] * POCT glucose (03/15/2024 12:32 PM CDT) Glucose, POC 198 70 - 199 mg/dL Blood 03/15/2024 12:3 2 PM CDT 03/15/2024 12:32 PM CDT Chadd Toledo DO LAB POCT ORDERABLES - DEVICE Final Result Performing Organization Address [facility] de Phone Number [facility] [place] [address] * (ABNORMAL) POCT glucose (03/15/2024 11:07 AM CDT) Glucose, POC 208(H) 70 - 199 mg/dL Blood 03/15/2024 11:0 7 AM CDT 03/15/2024 11:07 AM CDT Chadd Toledo DO LAB POCT ORDERABLES - DEVICE Final Result Performing Organization Address [facility] de Phone Number [facility] [place] [address] * (ABNORMAL) POCT glucose (03/15/2024 10:05 AM CDT) Glucose, POC 217(H) 70 - 199 mg/dL Blood 03/15/2024 10:0 5 AM CDT 03/15/2024 10:05 AM CDT Chadd Toledo DO LAB POCT ORDERABLES - DEVICE Final Result Performing Organization Address [facility] Co de Phone Number AJIT [facility] [place] [address] * POCT glucose (03/15/2024 8:13 AM CDT) Glucose, POC 95 70 - 199 mg/dL Blood 03/15/2024 8:13 AM CDT 03/15/2024 8:13 AM CDT Chadd Toledo DO LAB POCT ORDERABLES - DEVICE Final Result Performing Organization Address [facility] de Phone Number [facility] [place] [address] * POCT glucose (03/15/2024 7:16 AM CDT) Glucose, POC 84 70 - 199 mg/dL Blood 03/15/2024 7:16 AM CDT 03/15/2024 7:16 AM CDT Chadd Toledo DO LAB POCT ORDERABLES - DEVICE Final Result Performing Organization Address [facility] de Phone Number [facility] [place] [address] * Lidocaine level (03/15/2024 6:00 AM CDT) Lidocaine (Xylocaine) 2.8 1.5 - 5.0 mcg/mL Blood 03/15/2024 6:00 AM CDT 03/15/2024 6:18 AM CDT Narrative AJIT [facility] - 03/15/2024 6:47 AM CDT Draw 24 hours after infusion started. Chadd Toledo DO LAB BLOOD ORDERABLES [place] [address] * POCT glucose (03/15/2024 5:58 AM CDT) Glucose, POC 115 70 - 199 mg/dL Blood 03/15/2024 5:58 AM CDT 03/15/2024 5:58 AM CDT Chadd Toledo DO LAB POCT ORDERABLES - DEVICE Final Result Performing Organization Address [facility] [place] [address] * POCT glucose (03/15/2024 4:58 AM CDT) Glucose, POC 135 70 - 199 mg/dL Blood 03/15/2024 4:58 AM CDT 03/15/2024 4:58 AM CDT Chadd Toledo DO LAB POCT ORDERABLES - DEVICE Final Result Performing Organization Address [facility] Co de Phone Number [facility] [place] [address] * POCT glucose (03/15/2024 4:03 AM CDT) Glucose, POC 175 70 - 199 mg/dL Blood 03/15/2024 4:03 AM CDT 03/15/2024 4:03 AM CDT Chadd Toledo DO LAB POCT ORDERABLES - DEVICE Final Result Performing Organization Address City/[facility] Co [place] [address] * POCT glucose (03/15/2024 3:01 AM CDT) Glucose, POC 158 70 - 199 mg/dL Blood 03/15/2024 3:01 AM CDT 03/15/2024 3:01 AM CDT Chadd Toledo DO LAB POCT ORDERABLES - DEVICE Final Result Performing Organization Address [facility] de Phone Number [facility] [place] [address] * POCT glucose (03/15/2024 2:00 AM CDT) Glucose, POC 140 70 - 199 mg/dL Blood 03/15/2024 2:00 AM CDT 03/15/2024 2:00 AM CDT Chadd Toledo DO LAB POCT ORDERABLES - DEVICE Final Result Performing Organization Address [facility] de Phone Number [facility] [place] [address] * POCT glucose (03/15/2024 1:00 AM CDT) Glucose, POC 122 70 - 199 mg/dL Blood 03/15/2024 1:00 AM CDT 03/15/2024 1:00 AM CDT Chadd Toledo DO LAB POCT ORDERABLES - DEVICE Final Result Performing Organization Address [facility] [place] [address] * POCT glucose (03/14/2024 11:55 PM CDT) Glucose, POC 84 70 - 199 mg/dL Blood 03/14/2024 11:5 5 PM CDT 03/14/2024 11:55 PM CDT Chadd Elias Craft DO LAB POCT ORDERABLES - DEVICE Final Result [facility] [place] [address] * PA CRITICAL CARE ILL/INJURED PATIENT INIT 30-74 MIN [...] plan with the ICU team and other medical/direct sales consultant staff, making frequent assessments and decisions [...] * POCT glucose (03/14/2024 10:15 PM CDT) [facility] Glucose, POC 125 70 - 199 mg/dL Blood 03/14/2024 10:1 5 PM CDT 03/14/2024 10:15 PM CDT us Chadd Toledo DO LAB POCT ORDERABLES - DEVICE Final Result [facility] [place] [address] * POCT glucose (03/14/2024 9:07 PM CDT) Glucose, POC 127 70 - 199 mg/dL Blood 03/14/2024 9:07 PM CDT 03/14/2024 9:07 PM CDT Chadd Toledo DO LAB POCT ORDERABLES - DEVICE Final Result Performing Organization Address [facility] de Phone Number AJIT [facility] [place] [address] * POCT glucose (03/14/2024 7:57 PM CDT) Pathologist [facility] Glucose, POC 149 70 - 199 mg/dL Blood 03/14/2024 7:57 PM CDT 03/14/2024 7:57 PM CDT Chaddtorres Griffin Tre DO LAB POCT ORDERABLES - DEVICE Final Result Performing Organization Address [facility] de Phone Number AJIT [facility] [place] [address] * eGFR (03/14/2024 7:55 PM CDT) Pathologist [facility] eGFR >90 >=60 mL/min/1. 73 m2 [...] BLOOD ORDERABLES Final Result Performing Organization Address City/[facility] Co de Phone Number [facility] [place] [address] * Type and screen (03/14/2024 7:55 PM CDT) Pathologist [facility] ABO Rh O Negative Anselmo, indirect Negative [facility] Blood 03/14/2024 7:55 PM CDT 03/14/2024 8:24 PM CDT Narrative [facility] - 03/14/2024 9:09 PM CDT Has the patient had Daratumumab or Isatuximab in the past 6 months?->Unknown Chadd Toledo DO LAB BLOOD BANK TEST O RDERABLES Final Result Performing Organization Address City/State/[facility] Co de Phone Number [facility] [place] [address] * (ABNORMAL) CBC without differential (03/14/2024 7:55 PM CDT) Pathologist [facility] WBC 5.0 3.8 - 9.9 K/cumm Hgb 9.9(L) 11.9 - 15.5 g/dL [facility] Hct 29.2(L) 35.6 - 45.5 % [facility] Plt 112(L) 150 - 400 K/cumm [facility] MPV 9.3 9.1 - 12.3 fL [facility] RBC 3.50(L) 3.90 - 5.20 M/cumm [facility] MCV 83.4 81.3 - 96.4 fL [facility] MCH 28.3 27.1 - 33.3 pg [facility] MCHC 33.9 32.3 - 35.7 g/dL [facility] RDW CV 14.6 11.1 - 14.9 % [facility] RDW SD 43.5 35.7 - 48.1 fL [facility] NRBC abs 0.00 0.00 - 0.01 K/cumm [facility] Blood 03/14/2024 7:55 PM CDT 03/14/2024 8:19 PM CDT Chadd Toledo DO LAB BLOOD ORDERABLES Final Result Performing Organization Address [facility]/ZIP Co de Phone Number [facility] [place] [address] * Phosphorus (03/14/2024 7:55 PM CDT) Phosphorus, pl 3.0 2.3 - 4.5 mg/dL Blood 03/14/2024 7:55 PM CDT 03/14/2024 8:19 PM CDT Chadd Toledo DO LAB BLOOD ORDERABLES Final Result [facility] [place] [address] * Magnesium (03/14/2024 7:55 PM CDT) Magnesium 1.7 1.4 - 2.5 mg/dL Blood 03/14/2024 7:55 PM CDT 03/14/2024 8:19 PM CDT Chadd Elias Craft DO LAB BLOOD ORDERABLES Final Result [facility] [place] [address] * (ABNORMAL) Basic metabolic panel (03/14/2024 7:55 PM CDT) Sodium 135 135 - 145 mmol/L Potassium, pl 3.9 3.3 - 4.9 mmol/L [facility] Chloride 98 97 - 110 mmol/L [facility] CO2 33(H) 22 - 32 mmol/L [facility] Anion gap 4 2 - 15 mmol/L [facility] BUN 12 6 - 25 mg/dL [facility] Creatinine 0.53(L) 0.60 - 1.10 mg/dL [facility] Glucose 136 70 - 199 mg/dL [facility] Comment: Interpretive Data Fasting glucose >/= 126 [...] 2022. Calcium 8.5 8.5 - 10.3 mg/dL [facility] Blood 03/14/2024 7:55 PM CDT 03/14/2024 8:19 PM CDT us Chadd Elias Toledo DO LAB BLOOD ORDERABLES Final Result [facility]IT [facility] [place] [address] * POCT glucose (03/14/2024 6:59 PM CDT) Glucose, POC 145 70 - 199 mg/dL Blood 03/14/2024 6:59 PM CDT 03/14/2024 6:59 PM CDT Chadd Toledo DO LAB POCT ORDERABLES - DEVICE Final Result Performing Organization Address [facility] de Phone Number [facility]IT [facility] [place] [address] * POCT glucose (03/14/2024 6:01 PM CDT) Glucose, POC 177 70 - 199 mg/dL Blood 03/14/2024 6:01 PM CDT 03/14/2024 6:01 PM CDT Chadd Toledo DO LAB POCT ORDERABLES - DEVICE Final Result Performing Organization Address [facility] Phone Number [facility] [place] [address] * POCT glucose (03/14/2024 5:21 PM CDT) Glucose, POC 196 70 - 199 mg/dL Blood 03/14/2024 5:21 PM CDT 03/14/2024 5:21 PM CDT Chadd Toledo DO LAB POCT ORDERABLES - DEVICE Final Result Performing Organization Address [facility] Phone Number [facility]IT [facility] [place] [address] * (ABNORMAL) POCT glucose (03/14/2024 4:25 PM CDT) Glucose, POC 238(H) 70 - 199 mg/dL Blood 03/14/2024 4:25 PM CDT 03/14/2024 4:25 PM CDT Chadd Toledo DO LAB POCT ORDERABLES - DEVICE Final Result Performing Organization Address [facility]/State/ZIP Co de Phone Number AJIT [facility] [place] [address] * (ABNORMAL) POCT glucose (03/14/2024 3:20 PM CDT) Glucose, POC 239(H) 70 - 199 mg/dL Blood 03/14/2024 3:20 PM CDT 03/14/2024 3:20 PM CDT Chadd Toledo DO LAB POCT ORDERABLES - DEVICE Final Result Performing Organization Address [facility] [place] [address] * (ABNORMAL) POCT glucose (03/14/2024 2:00 PM CDT) Glucose, POC 271(H) 70 - 199 mg/dL Comment:Glu2: RN/MD Notified Glucose comment 1 Glu2: RN/MD Notified [facility] Blood 03/14/2024 2:00 PM CDT 03/14/2024 2:00 PM CDT Chadd Toledo DO LAB POCT ORDERABLES - DEVICE Final Result Performing Organization Address [facility]/ZIP Co de Phone Number [facility] [place] [address] * (ABNORMAL) POCT glucose (03/14/2024 12:59 PM CDT) Glucose, POC 257(H) 70 - 199 mg/dL Blood 03/14/2024 12:5 9 PM CDT 03/14/2024 12:59 PM CDT Chadd Toledo DO LAB POCT ORDERABLES - DEVICE Final Result Performing Organization Address City/[facility]/ZIP Co de Phone Number [facility] [place] [address] * (ABNORMAL) POCT glucose (03/14/2024 12:15 PM CDT) Glucose, POC 252(H) 70 - 199 mg/dL Blood 03/14/2024 12:1 5 PM CDT 03/14/2024 12:15 PM CDT Chadd Toledo DO LAB POCT ORDERABLES - DEVICE Final Result Performing Organization Address City/[facility] [place] [address] * (ABNORMAL) POCT glucose (03/14/2024 11:01 AM CDT) Glucose, POC 218(H) 70 - 199 mg/dL Blood 03/14/2024 11:0 1 AM CDT 03/14/2024 11:01 AM CDT Chadd Toledo DO LAB POCT ORDERABLES - DEVICE Final Result Performing Organization Address City/[facility] [place] [address] * POCT glucose (03/14/2024 9:56 AM CDT) Glucose, POC 153 70 - 199 mg/dL Blood 03/14/2024 9:56 AM CDT 03/14/2024 9:56 AM CDT Chadd Toledo DO LAB POCT ORDERABLES - DEVICE Final Result Performing Organization Address City/[facility] Co [place] [address] * POCT glucose (03/14/2024 9:00 AM CDT) Glucose, POC 105 70 - 199 mg/dL Blood 03/14/2024 9:00 AM CDT 03/14/2024 9:00 AM CDT Chadd Toledo DO LAB POCT ORDERABLES - DEVICE Final Result Performing Organization Address [facility] de Phone Number [facility] [place] [address] * POCT glucose (03/14/2024 8:07 AM CDT) [facility] Glucose, POC 78 70 - 199 mg/dL Blood 03/14/2024 8:07 AM CDT 03/14/2024 8:07 AM CDT Chadd Toledo DO LAB POCT ORDERABLES - DEVICE Final Result Performing Organization Address [facility] Phone Number [facility] [place] [address] * Critical Care (03/14/2024 7:38 AM CDT) [...] plan with the ICU team and other medical/direct sales consultant staff, making frequent assessments and decisions [...] 7:12 AM CDT 03/14/2024 7:12 AM CDT us Chadd Toledo DO LAB POCT ORDERABLES - DEVICE Final Result Performing Organization Address [facility] Co de Phone Number [facility] [place] [address] * POCT glucose (03/14/2024 6:10 AM CDT) Glucose, POC 127 70 - 199 mg/dL Blood 03/14/2024 6:10 AM CDT 03/14/2024 6:10 AM CDT us Chadd Toledo DO LAB POCT ORDERABLES - DEVICE Final Result Performing Organization Address [facility] Co de Phone Number AJIT [facility] [place] [address] * POCT glucose (03/14/2024 5:11 AM CDT) Glucose, POC 138 70 - 199 mg/dL Blood 03/14/2024 5:11 AM CDT 03/14/2024 5:11 AM CDT Chadd Toledo DO LAB POCT ORDERABLES - DEVICE Final Result Performing Organization Address City/[facility] Co de Phone Number [facility] [place] [address] * POCT glucose (03/14/2024 4:03 AM CDT) Glucose, POC 139 70 - 199 mg/dL Blood 03/14/2024 4:03 AM CDT 03/14/2024 4:03 AM CDT Chadd Toledo DO LAB POCT ORDERABLES - DEVICE Final Result Performing Organization Address [facility] de Phone Number [facility] [place] [address] * POCT glucose (03/14/2024 3:11 AM CDT) Glucose, POC 173 70 - 199 mg/dL Blood 03/14/2024 3:11 AM CDT 03/14/2024 3:11 AM CDT Chadd Toledo DO LAB POCT ORDERABLES - DEVICE Final Result Performing Organization Address [facility] de Phone Number [facility] [place] [address] * POCT glucose (03/14/2024 2:21 AM CDT) Glucose, POC 165 70 - 199 mg/dL Blood 03/14/2024 2:21 AM CDT 03/14/2024 2:21 AM CDT Chadd Toledo DO LAB POCT ORDERABLES - DEVICE Final Result Performing Organization Address City/[facility] Co de Phone Number AJIT [facility] [place] [address] * POCT glucose (03/14/2024 1:15 AM CDT) Glucose, POC 192 70 - 199 mg/dL Blood 03/14/2024 1:15 AM CDT 03/14/2024 1:15 AM CDT Chadd Toledo DO LAB POCT ORDERABLES - DEVICE Final Result Performing Organization Address [facility] Phone Number [facility] [place] [address] * CT Cervical Spine WO Contrast (03/14/2024 [...] it. Electronically signed by: Jonny Sue M.D. us Chadd Toledo DO IMG CT PROCEDURES Fin al Result * POCT glucose (03/14/2024 12:04 AM CDT) Glucose, POC 192 70 - 199 mg/dL Blood 03/14/2024 12:0 4 AM CDT 03/14/2024 12:04 AM CDT Chadd Toledo DO LAB POCT ORDERABLES - DEVICE Final Result Performing Organization Address City/[facility]/ZIP Co de Phone Number AJIT [facility] [place] [address] * ECG 12 lead (03/13/2024 11:58 PM CDT) [facility] [address] Ventricular Rate EKG/Min 96 BPM [facility] Atrial Rate 96 BPM [facility] PA-Interval (MSEC) 208 ms [facility] QRS-Interval (MSEC) 112 ms [facility] QT-Interval (MSEC) 390 ms [facility] QTc 492 ms [facility] P [place] 71 degrees [facility] R [place] 63 degrees [facility] T [place] 64 degrees [facility] Diagnosis Normal sinus rhythm Prolonged QT Abnormal ECG No previous ECGs available Confirmed by CALEB MORALES M.D ([id number]) on 03/14/2024 5:29:02 PM [facility] 03/13/2024 11:5 8 PM CDT 03/14/2024 5:29 PM CDT Chadd Toledo DO ECG ORDERABLES Final Result Performing Organization Address City/[facility]/ZIP Co de Phone Number [facility] * (ABNORMAL) POCT glucose (03/13/2024 11:13 PM CDT) Glucose, POC 209(H) 70 - 199 mg/dL Blood 03/13/2024 11:1 3 PM CDT 03/13/2024 11:13 PM CDT Chadd Toledo DO LAB POCT ORDERABLES - DEVICE Final Result Performing Organization Address [facility] [place] [address] * POCT glucose (03/13/2024 10:08 PM CDT) Glucose, POC 196 70 - 199 mg/dL Blood 03/13/2024 10:0 8 PM CDT 03/13/2024 10:08 PM CDT Chadd Toledo DO LAB POCT ORDERABLES - DEVICE Final Result Performing Organization Address [facility] [place] [address] * aPTT (03/13/2024 10:04 PM CDT) aPTT [...] BLOOD ORDERABLES Final Result Performing Organization Address [facility] de Phone Number AJIT TRAN One [facility] [place] [address] * (ABNORMAL) Protime-INR (03/13/2024 10:04 PM CDT) PT 13.7(H) 9.7 - 13.0 sec INR 1.26(H) 0.90 - 1.20 [facility] Comment: Interpretive data Oral anticoagulant therapeutic ranges: Venous thromboembolism prophylaxis or treatment: 2.0-3.0 CARDIOLOGY Standard range: 2.0-3.0 High-intensity range: 2.5-3.5 Refer to indication-specific guidelines for appropriate target ranges for prosthetic heart valve replacement. Current interpretive data was last revised on 2019. Blood 03/13/2024 10:0 4 PM CDT 03/13/2024 10:24 PM CDT us Chadd Toledo DO LAB BLOOD ORDERABLES Final Result AJIT [facility] [place] [address] * Critical Care (03/13/2024 10:00 PM CDT) [...] plan with the ICU team and other medical/direct sales consultant staff, making frequent assessments and decisions [...] [facility] Co de Phone Number [facility] [place] [address] * eGFR (03/13/2024 10:00 PM CDT) eGFR [...] BLOOD ORDERABLES Final Result Performing Organization Address City/[facility]/ZIP Co de Phone Number [facility] [place] [address] * (ABNORMAL) CBC without differential (03/13/2024 10:00 PM CDT) Pathologist [facility] WBC 5.0 3.8 - 9.9 K/cumm Hgb 10.2(L) 11.9 - 15.5 g/dL [facility] Hct 30.8(L) 35.6 - 45.5 % [facility] Plt 107(L) 150 - 400 K/cumm [facility] MPV 8.4(L) 9.1 - 12.3 fL [facility] RBC 3.69(L) 3.90 - 5.20 M/cumm [facility] MCV 83.5 81.3 - 96.4 fL [facility] MCH 27.6 27.1 - 33.3 pg [facility] MCHC 33.1 32.3 - 35.7 g/dL [facility] RDW CV 14.1 11.1 - 14.9 % [facility] RDW SD 42.5 35.7 - 48.1 fL [facility] NRBC abs 0.00 0.00 - 0.01 K/cumm [facility] Blood 03/13/2024 10:0 0 PM CDT 03/13/2024 10:22 PM CDT Chadd Toledo DO LAB BLOOD ORDERABLES Final Result Performing Organization Address City/[facility]/ZIP Co de Phone Number [facility] [place] [address] * Phosphorus (03/13/2024 10:00 PM CDT) [facility] [address] Phosphorus, pl 3.1 2.3 - 4.5 mg/dL Blood 03/13/2024 10:0 0 PM CDT 03/13/2024 10:17 PM CDT Chaddtorres Griffin Efe DO LAB BLOOD ORDERABLES Final Result Performing Organization Address City/[facility] Co de Phone Number [facility] [place] [address] * Magnesium (03/13/2024 10:00 PM CDT) [facility] [address] Magnesium 1.6 1.4 - 2.5 mg/dL Blood 03/13/2024 10:0 0 PM CDT 03/13/2024 10:17 PM CDT [facility] Griffin Tre LAB BLOOD ORDERABLES Final Result Performing Organization Address [facility] de Phone Number [facility] [place] [address] * (ABNORMAL) Basic metabolic panel (03/13/2024 10:00 PM CDT) [facility] [address] Sodium 136 135 - 145 mmol/L Potassium, pl 4.3 3.3 - 4.9 mmol/L [facility] Chloride 100 97 - 110 mmol/L [facility] CO2 30 22 - 32 mmol/L [facility] Anion gap 6 2 - 15 mmol/L [facility] BUN 11 6 - 25 mg/dL [facility] Creatinine 0.49(L) 0.60 - 1.10 mg/dL [facility] Glucose 203(H) 70 - 199 mg/dL [facility] Comment: Interpretive Data Fasting glucose >/= 126 [...] 2022. Calcium 8.6 8.5 - 10.3 mg/dL [facility] Blood 03/13/2024 10:0 0 PM CDT 03/13/2024 10:17 PM CDT us Chadd Toledo DO LAB BLOOD ORDERABLES Final Result Performing Organization Address City/[facility]/ZIP Co de Phone Number [facility] One [facility] [place] [address] * FL Fluoroscopy < 1 Hour (03/13/2024 9:23 PM CDT) Narrative RAD_PACS_[facility] - 03/13/2024 9:23 PM CDT The images from this study are not interpreted by Radiology. ??Please refer to the physician's procedure / OR operative note. Marcio Tapia MD IMG FLUOROSCOPY PROCEDURES Komal l Result Performing Organization Address [facility]/ZIP Co de Phone Number RAD_[email or web address]_[facility] * (ABNORMAL) POC Blood Gas and Chemistries, Arterial - (03/13/2024 8:57 PM CDT) pH, Art POC 7.39 7.35 - 7.45 pCO2, Art POC 48(H) 35 - 45 mmHg [facility] pO2, Art POC 119(H) 83 - 108 mmHg [facility] Na, POC 134(L) 135 - 145 mmol/L [facility] K POC 4.2 3.3 - 4.9 mmol/L [facility] Comment: Interpretive Data Not all point of care methods assess for hemolysis. Confirm with instrument and retest K+ if not consistent with clinical signs and symptoms. Current Interpretive Data was last revised on 2023. Cl, POC 104 97 - 110 mmol/L [facility] Ionized Ca, POC 4.90 4.50 - 5.10 mg/dL [facility] Glucose, POC 226(H) 70 - 199 mg/dL [facility] Lactate, POC 1.6 0.7 - 2.2 mmol/L [facility] SO2 (caleb) arterial 99(H) 90 - 95 % [facility] Base excess, POC 3.5 mmol/L [facility] HCO3, Art POC 29 20 - 30 mmol/L [facility] Hct, POC 32.0(L) 36.3 - 45.3 % [facility] Total Hb, POC 10.7(L) 11.9 - 15.5 g/dL [facility] Blood 03/13/2024 8:57 PM CDT 03/13/2024 8:57 PM CDT us Chadd Toledo DO LAB POCT ORDERABLES - DEVICE Final Result Performing Organization Address City/State/[facility] Co de Phone Number [facility] One [facility] [place] [address] * XR Spine Cervical 2 or 3 [...] MD BLOOD TRANSFUSION ORDERA BLES Final Result [facility] One [facility] [place] [address] * (ABNORMAL) POC Blood Gas and Chemistries, Arterial - (03/13/2024 7:14 PM CDT) pH, Art POC 7.38 7.35 - 7.45 pCO2, Art POC 47(H) 35 - 45 mmHg [facility] pO2, Art POC 111(H) 83 - 108 mmHg [facility] Na, POC 135 135 - 145 mmol/L [facility] K POC 4.2 3.3 - 4.9 mmol/L [facility] Comment: Interpretive Data Not all point of care methods assess for hemolysis. Confirm with instrument and retest K+ if not consistent with clinical signs and symptoms. Current Interpretive Data was last revised on 2023. Cl, POC 104 97 - 110 mmol/L [facility] Ionized Ca, POC 5.50(H) 4.50 - 5.10 mg/dL [facility] Glucose, POC 218(H) 70 - 199 mg/dL [facility] Lactate, POC 1.7 0.7 - 2.2 mmol/L [facility] SO2 (caleb) arterial 98(H) 90 - 95 % [facility] Base excess, POC 2.2 mmol/L [facility] HCO3, Art POC 28 20 - 30 mmol/L [facility] Hct, POC 30.0(L) 36.3 - 45.3 % [facility] Total Hb, POC 9.9(L) 11.9 - 15.5 g/dL [facility] Blood 03/13/2024 7:14 PM CDT 03/13/2024 7:14 PM CDT us Chadd Toledo DO LAB POCT ORDERABLES - DEVICE Final Result Performing Organization Address City/[facility] Co de Phone Number [facility] [place] [address] * Transfuse plasma (03/13/2024 6:12 PM CDT) Blood us Rafael Breaux MD BLOOD TRANSFUSION ORDERA BLES Final Result Performing Organization Address City/[facility]/ZIP Co de Phone Number [facility] [place] [address] * Transfuse RBC (03/13/2024 5:46 PM CDT) Blood Rafael Breaux MD BLOOD TRANSFUSION ORDERA BLES Final Result Performing Organization Address City/[facility] Co de Phone Number [facility] [place] [address] * Prepare plasma: 2 Units (03/13/2024 5:45 PM CDT) Product code [id number] Unit Number [id number] [facility] Product Blood Type OPOS [facility] Dispense Status PRESUMED TRANSFUSED [facility] Blood (Blood, Venous) 03/13/2024 5:45 PM CDT 03/13/2024 5:45 PM CDT Narrative [facility] - 03/14/2024 12:46 AM CDT Date required:-[id number] FFP # of Units:-2-Units Reasons:-Immediate need for surgical intervention us Rafael Breaux MD BLOOD BANK PRODUCT ORDER LAKESHIA Final Result Performing Organization Address [facility] Co de Phone Number [facility] [place] [address] * (ABNORMAL) POCT prothrombin time (03/13/2024 5:33 PM CDT) Pathologist [facility] PT, POC 21.1(H) 11.7 - 16.6 sec INR, POC 1.6(H) 0.9 - 1.3 [facility] Blood 03/13/2024 5:33 PM CDT 03/13/2024 5:33 PM CDT us Chadd Toledo DO LAB POCT ORDERABLES - DEVICE Final Result Performing Organization Address City/[facility]/ZIP Co de Phone Number [facility] [place] [address] * (ABNORMAL) POCT Partial thromboplastin time (PTT) (03/13/2024 5:33 PM CDT) Pathologist [facility] APTT, POC 28.4(L) 32.5 - 46.1 sec Blood 03/13/2024 5:33 PM CDT 03/13/2024 5:33 PM CDT Chadd Toledo DO LAB POCT ORDERABLES - DEVICE Final Result Performing Organization Address City/[facility]/ZIP Co de Phone Number [facility] [place] [address] * (ABNORMAL) POCT platelet count and hematocrit (03/13/2024 5:33 PM CDT) Hematocrit POC 31.3(L) 35.6 - 45.5 % Platelet POC 155 150 - 400 K/cumm [facility] Blood 03/13/2024 5:33 PM CDT 03/13/2024 5:33 PM CDT us Chadd Toledo DO LAB POCT ORDERABLES - DEVICE Final Result Performing Organization Address [facility] Co de Phone Number [facility] [place] [address] * (ABNORMAL) POC Blood Gas and Chemistries, Arterial - (03/13/2024 5:33 PM CDT) pH, Art POC 7.39 7.35 - 7.45 pCO2, Art POC 45 35 - 45 mmHg [facility] pO2, Art POC 129(H) 83 - 108 mmHg [facility] Na, POC 135 135 - 145 mmol/L [facility] K POC 4.2 3.3 - 4.9 mmol/L [facility] Comment: Interpretive Data Not all point of care methods assess for hemolysis. Confirm with instrument and retest K+ if not consistent with clinical signs and symptoms. Current Interpretive Data was last revised on 2023. Cl, POC 104 97 - 110 mmol/L [facility] Ionized Ca, POC 4.62 4.50 - 5.10 mg/dL [facility] Glucose, POC 190 70 - 199 mg/dL [facility] Lactate, POC 1.8 0.7 - 2.2 mmol/L [facility] SO2 (caleb) arterial 100(H) 90 - 95 % [facility] Base excess, POC 1.8 mmol/L [facility] HCO3, Art POC 26 20 - 30 mmol/L [facility] Hct, POC 33.0(L) 36.3 - 45.3 % [facility] Total Hb, POC 10.9(L) 11.9 - 15.5 g/dL [facility] Blood 03/13/2024 5:33 PM CDT 03/13/2024 5:33 PM CDT Chadd Toledo DO LAB POCT ORDERABLES - DEVICE Final Result [facility] One [facility] [place] [address] * Critical Care (03/13/2024 5:04 PM CDT) [...] plan with the ICU team and other medical/direct sales consultant staff, making frequent assessments and decisions [...] - DEVICE Final Result Performing Organization Address [facility]/ZIP Co de Phone Number [facility] [place] [address] * Prepare RBC: 2 Units (03/13/2024 4:20 PM CDT) Product code [id number] Unit Number [id number] [facility] Product Blood Type ONEG [facility] Dispense Status PRESUMED TRANSFUSED [facility] Product code [id number] [facility] Unit Number [id number] [facility] Product Blood Type ONEG [facility] Dispense Status PRESUMED TRANSFUSED [facility] Blood 03/13/2024 4:20 PM CDT 03/13/2024 4:20 PM CDT Narrative [facility] - 03/14/2024 12:46 AM CDT Are special requirements needed? (All products are leukoreduced and CMV- safe)- >No Date required:-[id number] LRRBC # of Ruhjn-0-Tbsdr Reasons:-Intra-op transfusion} us Rafael Breaux MD BLOOD BANK PRODUCT ORDER LAKESHIA Final Result Performing Organization Address [facility]/ZIP Co de Phone Number [facility] [place] [address] * POCT glucose (03/13/2024 2:53 PM CDT) Glucose, POC 101 70 - 199 mg/dL Blood 03/13/2024 2:53 PM CDT 03/13/2024 2:53 PM CDT Chadd Toledo DO LAB POCT ORDERABLES - DEVICE Final Result Performing Organization Address [facility] Co de Phone Number [facility] [place] [address] * POCT glucose (03/13/2024 2:01 PM CDT) Glucose, POC 114 70 - 199 mg/dL Blood 03/13/2024 2:01 PM CDT 03/13/2024 2:01 PM CDT Chadd Toledo DO LAB POCT ORDERABLES - DEVICE Final Result Performing Organization Address [facility] Co de Phone Number [facility] [place] [address] * POCT glucose (03/13/2024 12:57 PM CDT) Glucose, POC 126 70 - 199 mg/dL Blood 03/13/2024 12:5 7 PM CDT 03/13/2024 12:57 PM CDT Chadd Toledo DO LAB POCT ORDERABLES - DEVICE Final Result Performing Organization Address City/[facility] Co de Phone Number [facility] [place] [address] * POCT glucose (03/13/2024 12:00 PM CDT) Glucose, POC 135 70 - 199 mg/dL Blood 03/13/2024 12:0 0 PM CDT 03/13/2024 12:00 PM CDT us Chadd Toledo DO LAB POCT ORDERABLES - DEVICE Final Result Performing Organization Address [facility] Co de Phone Number AJIT [facility] [place] [address] * POCT glucose (03/13/2024 10:57 AM CDT) Glucose, POC 138 70 - 199 mg/dL Blood 03/13/2024 10:5 7 AM CDT 03/13/2024 10:57 AM CDT us Chadd Toledo DO LAB POCT ORDERABLES - DEVICE Final Result Performing Organization Address [facility] de Phone Number [facility] [place] [address] * POCT glucose (03/13/2024 9:55 AM CDT) Glucose, POC 174 70 - 199 mg/dL Blood 03/13/2024 9:55 AM CDT 03/13/2024 9:55 AM CDT us Chadd Toledo DO LAB POCT ORDERABLES - DEVICE Final Result Performing Organization Address [facility] Co de Phone Number [facility]IT [facility] [place] [address] * POCT glucose (03/13/2024 8:57 AM CDT) Glucose, POC 163 70 - 199 mg/dL Blood 03/13/2024 8:57 AM CDT 03/13/2024 8:57 AM CDT us Chadd Toledo DO LAB POCT ORDERABLES - DEVICE Final Result Performing Organization Address [facility] Co de Phone Number [facility] [place] [address] * POCT glucose (03/13/2024 8:05 AM CDT) Glucose, POC 168 70 - 199 mg/dL Blood 03/13/2024 8:05 AM CDT 03/13/2024 8:05 AM CDT Chadd Toledo DO LAB POCT ORDERABLES - DEVICE Final Result Performing Organization Address [facility] Co [place] [address] * POCT glucose (03/13/2024 7:12 AM CDT) Glucose, POC 192 70 - 199 mg/dL Blood 03/13/2024 7:12 AM CDT 03/13/2024 7:12 AM CDT Chaddtorres Griffin Tre DO LAB POCT ORDERABLES - DEVICE Final Result Performing Organization Address [facility] [place] [address] * XR Chest 1 View (03/13/2024 7:10 [...] agrees with it. Electronically signed by: Tam Chuo M.D. Narrative 03/13/2024 3:19 PM CDT EXAMINATION: [...] POCT ORDERABLES - DEVICE Final Result AJIT [facility] One [facility] [place] [address] * Lidocaine level (03/13/2024 5:50 AM CDT) Lidocaine (Xylocaine) 2.1 1.5 - 5.0 mcg/mL Blood 03/13/2024 5:50 AM CDT 03/13/2024 6:05 AM CDT Narrative AJIT [facility] - 03/13/2024 6:29 AM CDT Draw 24 hours after infusion started. us Chadd Toledo DO LAB BLOOD ORDERABLES Final Result Performing Organization Address [facility] Co de Phone Number [facility] [place] [address] * POCT glucose (03/13/2024 5:02 AM CDT) Glucose, POC 187 70 - 199 mg/dL Blood 03/13/2024 5:02 AM CDT 03/13/2024 5:02 AM CDT Chadd Toledo DO LAB POCT ORDERABLES - DEVICE Final Result Performing Organization Address [facility] de Phone Number [facility] [place] [address] * POCT glucose (03/13/2024 3:56 AM CDT) Glucose, POC 152 70 - 199 mg/dL Blood 03/13/2024 3:56 AM CDT 03/13/2024 3:56 AM CDT Chadd Toledo DO LAB POCT ORDERABLES - DEVICE Final Result Performing Organization Address [facility] Co de Phone Number [facility] [place] [address] * POCT glucose (03/13/2024 3:04 AM CDT) Glucose, POC 178 70 - 199 mg/dL Blood 03/13/2024 3:04 AM CDT 03/13/2024 3:04 AM CDT us Chadd Toledo DO LAB POCT ORDERABLES - DEVICE Final Result Performing Organization Address [facility] Co de Phone Number [facility] [place] [address] * (ABNORMAL) POCT glucose (03/13/2024 1:55 AM CDT) Glucose, POC 203(H) 70 - 199 mg/dL Blood 03/13/2024 1:55 AM CDT 03/13/2024 1:55 AM CDT Chadd Toledo DO LAB POCT ORDERABLES - DEVICE Final Result Performing Organization Address [facility] de Phone Number [place] [facility] [place] [address] * POCT glucose (03/13/2024 12:57 AM CDT) Glucose, POC 119 70 - 199 mg/dL Blood 03/13/2024 12:5 7 AM CDT 03/13/2024 12:57 AM CDT Chadd Toledo DO LAB POCT ORDERABLES - DEVICE Final Result Performing Organization Address [facility] de Phone Number [facility] [place] [address] * POCT glucose (03/12/2024 11:22 PM CDT) Glucose, POC 140 70 - 199 mg/dL Blood 03/12/2024 11:2 2 PM CDT 03/12/2024 11:22 PM CDT Chadd Toledo DO LAB POCT ORDERABLES - DEVICE Final Result Performing Organization Address [facility] Co de Phone Number [facility] [place] [address] * POCT glucose (03/12/2024 10:40 PM CDT) Glucose, POC 155 70 - 199 mg/dL Blood 03/12/2024 10:4 0 PM CDT 03/12/2024 10:40 PM CDT us Chadd Toledo DO LAB POCT ORDERABLES - DEVICE Final Result [facility] [place] [address] * eGFR (03/12/2024 7:51 PM CDT) eGFR [...] BLOOD ORDERABLES Final Result Performing Organization Address [facility] Co de Phone Number [facility] [place] [address] * aPTT (03/12/2024 7:51 PM CDT) aPTT [...] ORDERABLES Komal l Result Performing Organization Address [facility] de Phone Number [facility] [place] [address] * Protime-INR (03/12/2024 7:51 PM CDT) PT 12.9 9.7 - 13.0 sec INR 1.19 0.90 - 1.20 [facility] Comment: Interpretive data Oral anticoagulant therapeutic ranges: Venous thromboembolism prophylaxis or treatment: 2.0-3.0 CARDIOLOGY Standard range: 2.0-3.0 High-intensity range: 2.5-3.5 Refer to indication-specific guidelines for appropriate target ranges for prosthetic heart valve replacement. Current interpretive data was last revised on 2019. Blood 03/12/2024 7:51 PM CDT 03/12/2024 8:33 PM CDT Jane Hoover MD LAB BLOOD ORDERABLES Komal l Result Performing Organization Address [facility] Co de Phone Number [facility] [place] [phone] * (ABNORMAL) CBC without differential (03/12/2024 7:51 PM CDT) [facility] [address] WBC 4.8 3.8 - 9.9 K/cumm Hgb 10.5(L) 11.9 - 15.5 g/dL [facility] Hct 31.4(L) 35.6 - 45.5 % [facility] Plt 152 150 - 400 K/cumm [facility] MPV 9.1 9.1 - 12.3 fL [facility] RBC 3.79(L) 3.90 - 5.20 M/cumm [facility] MCV 82.8 81.3 - 96.4 fL [facility] MCH 27.7 27.1 - 33.3 pg [facility] MCHC 33.4 32.3 - 35.7 g/dL [facility] RDW CV 13.9 11.1 - 14.9 % [facility] RDW SD 41.3 35.7 - 48.1 fL [facility] NRBC abs 0.00 0.00 - 0.01 K/cumm [facility] Blood 03/12/2024 7:51 PM CDT 03/12/2024 8:19 PM CDT Chadd Toledo DO LAB BLOOD ORDERABLES Final Result Performing Organization Address [facility] [place] [address] * Phosphorus (03/12/2024 7:51 PM CDT) [facility] [address] Phosphorus, pl 3.2 2.3 - 4.5 mg/dL Blood 03/12/2024 7:51 PM CDT 03/12/2024 8:19 PM CDT Chadd Toledo DO LAB BLOOD ORDERABLES Final Result Performing Organization Address City/[facility] [place] [address] * Magnesium (03/12/2024 7:51 PM CDT) Pathologist [facility] Magnesium 1.8 1.4 - 2.5 mg/dL Blood 03/12/2024 7:51 PM CDT 03/12/2024 8:19 PM CDT Chadd Toledo DO LAB BLOOD ORDERABLES Final Result [facility] [place] [address] * (ABNORMAL) Basic metabolic panel (03/12/2024 7:51 PM CDT) Pathologist [facility] Sodium 136 135 - 145 mmol/L Potassium, pl 4.0 3.3 - 4.9 mmol/L [facility] Chloride 98 97 - 110 mmol/L [facility] CO2 30 22 - 32 mmol/L [facility] Anion gap 8 2 - 15 mmol/L [facility] BUN 10 6 - 25 mg/dL [facility] Creatinine 0.69 0.60 - 1.10 mg/dL [facility] Glucose 224(H) 70 - 199 mg/dL [facility] Comment: Interpretive Data Fasting glucose >/= 126 [...] 2022. Calcium 8.6 8.5 - 10.3 mg/dL [facility] Blood 03/12/2024 7:51 PM CDT 03/12/2024 8:19 PM CDT us Chadd Toledo DO LAB BLOOD ORDERABLES Final Result Performing Organization Address [facility]/ZIP Co de Phone Number [facility] [place] [address] * (ABNORMAL) POCT glucose (03/12/2024 7:50 PM CDT) Glucose, POC 228(H) 70 - 199 mg/dL Blood 03/12/2024 7:50 PM CDT 03/12/2024 7:50 PM CDT Chadd Toledo DO LAB POCT ORDERABLES - DEVICE Final Result Performing Organization Address [facility] Co de Phone Number [facility] [place] [address] * POCT glucose (03/12/2024 5:58 PM CDT) Glucose, POC 167 70 - 199 mg/dL Blood 03/12/2024 5:58 PM CDT 03/12/2024 5:58 PM CDT Chadd Toledo DO LAB POCT ORDERABLES - DEVICE Final Result Performing Organization Address [facility] Co de Phone Number [facility] [place] [address] * (ABNORMAL) POCT glucose (03/12/2024 5:01 PM CDT) Glucose, POC 221(H) 70 - 199 mg/dL Blood 03/12/2024 5:01 PM CDT 03/12/2024 5:01 PM CDT Chadd Toledo DO LAB POCT ORDERABLES - DEVICE Final Result Performing Organization Address City/[facility] Co de Phone Number [facility] [place] [address] * (ABNORMAL) POCT glucose (03/12/2024 4:19 PM CDT) Glucose, POC 215(H) 70 - 199 mg/dL Blood 03/12/2024 4:19 PM CDT 03/12/2024 4:19 PM CDT Chadd Toledo DO LAB POCT ORDERABLES - DEVICE Final Result Performing Organization Address [facility] Co de Phone Number [facility] [place] [address] * (ABNORMAL) POCT glucose (03/12/2024 3:08 PM CDT) Glucose, POC 278(H) 70 - 199 mg/dL Blood 03/12/2024 3:08 PM CDT 03/12/2024 3:08 PM CDT Chadd Toledo DO LAB POCT ORDERABLES - DEVICE Final Result Performing Organization Address [facility] de Phone Number [facility] [place] [address] * Critical Care (03/12/2024 2:30 PM CDT) [...] plan with the ICU team and other medical/direct sales consultant staff, making frequent assessments and decisions [...] Glucose, POC 161 70 - 199 mg/dL [facility] Blood 03/12/2024 1:06 PM CDT 03/12/2024 1:06 PM CDT us Chadd Toledo DO LAB POCT ORDERABLES - DEVICE Final Result Performing Organization Address [facility]/ZIP Co de Phone Number [facility] [place] [address] * POCT glucose (03/12/2024 11:21 AM CDT) Glucose, POC 116 70 - 199 mg/dL [facility] Blood 03/12/2024 11:2 1 AM CDT 03/12/2024 11:21 AM CDT Chadd Toledo DO LAB POCT ORDERABLES - DEVICE Final Result Performing Organization Address [facility]/[place] [address] * POCT glucose (03/12/2024 9:15 AM CDT) Glucose, POC 114 70 - 199 mg/dL Blood 03/12/2024 9:15 AM CDT 03/12/2024 9:15 AM CDT Chadd Toledo DO LAB POCT ORDERABLES - DEVICE Final Result Performing Organization Address [facility]/[place] [address] * POCT glucose (03/12/2024 7:11 AM CDT) Glucose, POC 127 70 - 199 mg/dL Blood 03/12/2024 7:11 AM CDT 03/12/2024 7:11 AM CDT Chadd Toledo DO LAB POCT ORDERABLES - DEVICE Final Result Performing Organization Address [facility] [place] [address] * Lidocaine level (03/12/2024 6:17 AM CDT) Lidocaine (Xylocaine) 1.7 1.5 - 5.0 mcg/mL Blood 03/12/2024 6:17 AM CDT 03/12/2024 6:44 AM CDT [facility] - 03/12/2024 8:45 AM CDT Draw 24 hours after infusion started. Chadd Toledo DO LAB BLOOD ORDERABLES Final Result Performing Organization Address City/[facility]/[place] [address] * POCT glucose (03/12/2024 6:16 AM CDT) Glucose, POC 126 70 - 199 mg/dL Blood 03/12/2024 6:16 AM CDT 03/12/2024 6:16 AM CDT Chaddtorres Griffin Efetorres DO LAB POCT ORDERABLES - DEVICE Final Result Performing Organization Address [facility] Co de Phone Number [facility] [place] [address] * POCT glucose (03/12/2024 5:05 AM CDT) Glucose, POC 146 70 - 199 mg/dL Blood 03/12/2024 5:05 AM CDT 03/12/2024 5:05 AM CDT Chadd Elias Tre DO LAB POCT ORDERABLES - DEVICE Final Result Performing Organization Address [facility] Co de Phone Number [facility] [place] [address] * POCT glucose (03/12/2024 4:19 AM CDT) Glucose, POC 155 70 - 199 mg/dL Blood 03/12/2024 4:19 AM CDT 03/12/2024 4:19 AM CDT Chadd Toledo DO LAB POCT ORDERABLES - DEVICE Final Result Performing Organization Address City/[facility] Co de Phone Number [facility] [place] [address] * POCT glucose (03/12/2024 3:10 AM CDT) Glucose, POC 195 70 - 199 mg/dL Blood 03/12/2024 3:10 AM CDT 03/12/2024 3:10 AM CDT us Chadd Toledo DO LAB POCT ORDERABLES - DEVICE Final Result Performing Organization Address [facility] Co de Phone Number [facility] [place] [address] * POCT glucose (03/12/2024 1:07 AM CDT) Glucose, POC 165 70 - 199 mg/dL Blood 03/12/2024 1:07 AM CDT 03/12/2024 1:07 AM CDT us Chadd Toledo DO LAB POCT ORDERABLES - DEVICE Final Result Performing Organization Address [facility] [place] [address] * POCT glucose (03/12/2024 12:28 AM CDT) Glucose, POC 181 70 - 199 mg/dL Blood 03/12/2024 12:2 8 AM CDT 03/12/2024 12:28 AM CDT us Chadd Toledo DO LAB POCT ORDERABLES - DEVICE Final Result Performing Organization Address [facility] Co de Phone Number [facility] [place] [address] * POCT glucose (03/11/2024 11:04 PM CDT) Glucose, POC 172 70 - 199 mg/dL Blood 03/11/2024 11:0 4 PM CDT 03/11/2024 11:04 PM CDT us Chadd Toledo DO LAB POCT ORDERABLES - DEVICE Final Result Performing Organization Address [facility] Co de Phone Number [place] [address] * (ABNORMAL) POCT glucose (03/11/2024 10:08 PM CDT) Glucose, POC 208(H) 70 - 199 mg/dL Blood 03/11/2024 10:0 8 PM CDT 03/11/2024 10:08 PM CDT Chadd Toledo DO LAB POCT ORDERABLES - [place] [address] * (ABNORMAL) POCT glucose (03/11/2024 9:06 PM CDT) Glucose, POC 245(H) 70 - 199 mg/dL Blood 03/11/2024 9:06 PM CDT 03/11/2024 9:06 PM CDT Chadd Toledo DO LAB POCT ORDERABLES - DEVICE Final Result Performing Organization Address [facility] [place] [address] * Type and screen (03/11/2024 9:03 PM CDT) Anselmo, indirect Negative ABO Rh O Negative [facility] Blood 03/11/2024 9:03 PM CDT 03/11/2024 9:16 PM CDT Narrative [facility] - 03/11/2024 10:16 PM CDT Has the patient had Daratumumab or Isatuximab in the past 6 months?->Unknown Chadd Toledo DO LAB BLOOD BANK TEST O RDERABLES Final Result Performing Organization Address City/[facility]/[place] [address] * (ABNORMAL) Hemoglobin A1c (03/11/2024 8:59 PM CDT) Pathologist [facility] Hgb A1C 8.9(H) 4.0 - 5.6 [...] TREATMENT CENTER Co de Phone Number [facility] [place] [address] * eGFR (03/11/2024 8:59 PM CDT) [facility] [address] eGFR >90 >=60 mL/min/1. 73 m2 [...] CDT 03/11/2024 9:18 PM CDT us Chadd Elias Tre DO LAB BLOOD ORDERABLES Final Result [facility] [place] [address] * Differential, auto (03/11/2024 8:59 PM CDT) Neutrophil abs 3.5 1.5 - 6.5 K/cumm Imm gran abs 0.0 0.0 - 0.1 K/cumm [facility] Lymphocyte abs 1.1 0.8 - 3.3 K/cumm [facility] Monocyte abs 0.4 0.2 - 0.8 K/cumm [facility] Eosinophil abs 0.1 0.0 - 0.5 K/cumm [facility] Basophil abs 0.0 0.0 - 0.1 K/cumm [facility] Neutrophil pct 69.6 % [facility] Comment: Interpretive Data Percent cell count reference ranges are not reported, since discordance with absolute values may lead to misinterpretation of CBC data. Current Interpretive Data was last revised on 2017. Imm gran pct 0.4 % [facility] Comment: Interpretive Data Percent cell count reference ranges are not reported, since discordance with absolute values may lead to misinterpretation of CBC data. Current Interpretive Data was last revised on 2017. Lymphocyte pct 20.9 % [facility] Comment: Interpretive Data Percent cell count reference ranges are not reported, since discordance with absolute values may lead to misinterpretation of CBC data. Current Interpretive Data was last revised on 2017. Monocyte pct 6.9 % [facility] Comment: Interpretive Data Percent cell count reference ranges are not reported, since discordance with absolute values may lead to misinterpretation of CBC data. Current Interpretive Data was last revised on 2017. Eosinophil pct 1.6 % [facility] Comment: Interpretive Data Percent cell count reference ranges are not reported, since discordance with absolute values may lead to misinterpretation of CBC data. Current Interpretive Data was last revised on 2017. Basophil pct 0.6 % [facility] Comment: Interpretive Data Percent cell count reference ranges are not reported, since discordance with absolute values may lead to misinterpretation of CBC data. Current Interpretive Data was last revised on 2017. Blood 03/11/2024 8:59 PM CDT 03/11/2024 9:18 PM CDT us Chadd Toledo DO LAB BLOOD ORDERABLES Final Result [facility] [place] [address] * (ABNORMAL) CBC with auto differential (03/11/2024 8:59 PM CDT) WBC 5.1 3.8 - 9.9 K/cumm Hgb 10.2(L) 11.9 - 15.5 g/dL [facility] Hct 30.6(L) 35.6 - 45.5 % [facility] Plt 145(L) 150 - 400 K/cumm [facility] MPV 8.9(L) 9.1 - 12.3 fL [facility] RBC 3.66(L) 3.90 - 5.20 M/cumm [facility] MCV 83.6 81.3 - 96.4 fL [facility] MCH 27.9 27.1 - 33.3 pg [facility] MCHC 33.3 32.3 - 35.7 g/dL [facility] RDW CV 13.6 11.1 - 14.9 % [facility] RDW SD 41.1 35.7 - 48.1 fL [facility] NRBC abs 0.00 0.00 - 0.01 K/cumm [facility] Blood 03/11/2024 8:59 PM CDT 03/11/2024 9:18 PM CDT Chadd Elias Tre LAB BLOOD ORDERABLES Final Result Performing Organization Address [facility] de Phone Number [facility] [place] [address] * Phosphorus (03/11/2024 8:59 PM CDT) [facility] [address] Phosphorus, pl 3.4 2.3 - 4.5 mg/dL Blood 03/11/2024 8:59 PM CDT 03/11/2024 9:18 PM CDT Chadd Toledo LAB BLOOD ORDERABLES Final Result Performing Organization Address [facility] de Phone Number [facility] [place] [address] * Magnesium (03/11/2024 8:59 PM CDT) [facility] [address] Magnesium 1.7 1.4 - 2.5 mg/dL Blood 03/11/2024 8:59 PM CDT 03/11/2024 9:18 PM CDT Chadd Elias Efetorres LAB BLOOD ORDERABLES Final Result Performing Organization Address [facility] de Phone Number [facility] [place] [address] * (ABNORMAL) Basic metabolic panel (03/11/2024 8:59 PM CDT) [facility] [address] Sodium 137 135 - 145 mmol/L Potassium, pl 4.0 3.3 - 4.9 mmol/L [facility] Chloride 102 97 - 110 mmol/L [facility] CO2 28 22 - 32 mmol/L [facility] Anion gap 7 2 - 15 mmol/L [facility] BUN 11 6 - 25 mg/dL [facility] Creatinine 0.55(L) 0.60 - 1.10 mg/dL [facility] Glucose 239(H) 70 - 199 mg/dL [facility] Comment: Interpretive Data Fasting glucose >/= 126 [...] 2022. Calcium 8.4(L) 8.5 - 10.3 mg/dL [facility] Blood 03/11/2024 8:59 PM CDT 03/11/2024 9:18 PM CDT us Chadd Toledo DO LAB BLOOD ORDERABLES Final Result Performing Organization Address City/[facility]/ZIP Co de Phone Number [facility] [place] [address] * (ABNORMAL) POCT glucose (03/11/2024 7:53 PM CDT) [facility] [address] Glucose, POC 242(H) 70 - 199 mg/dL Comment:Glu2: RN/MD Notified Glucose comment 1 Glu2: RN/MD Notified [facility] Blood 03/11/2024 7:53 PM CDT 03/11/2024 7:53 PM CDT Chadd Toledo DO LAB POCT ORDERABLES - DEVICE Final Result Performing Organization Address [facility]/ZIP Co de Phone Number [facility] [place] [address] * XR Shoulder Right 2 or More [...] POCT ORDERABLES - DEVICE Final Result [facility] [place] [address] * Critical Care (03/11/2024 6:42 PM CDT) [...] plan with the ICU team and other medical/direct sales consultant staff, making frequent assessments and decisions [...] POCT ORDERABLES - DEVICE Final Result [facility] [place] [address] * PA INSJ NON-TUNNELED CENTRAL VENOUS CATH AGE 7 YR/> (03/11/2024 5:11 PM CDT) Narrative Eloise Knapp MD - 03/11/2024 5:11 PM CDT Inge Pepper PA ? 03/11/2024 ??6:28 PM Central Line Insertion Date/Time: 03/11/2024 5:11 PM Performed by: Inge Pepper PA Authorized by: Inge Pepper PA ?? [place] Protocol: RN Notified of Procedure: yes ?? [...] matched to patient identification: n/a ?? Responsible libertarian for transporting specimen(s) to lab determined: n/a ?? us Inge SIFUENTES IN CLINIC/BEDSIDE ORDERA BLES Final Result * PA ARTL CATHJ/CANNULJ MNTR/TRANSFUSION SPX PRQ (03/11/2024 5:09 PM CDT) Narrative Eloise Knapp MD - 03/11/2024 5:09 PM CDT Inge Pepper PA ? 03/11/2024 ??5:11 PM Arterial Line Insertion Date/Time: 03/11/2024 5:09 PM Performed by: Inge Pepper PA Authorized by: Inge Pepper PA ?? [place] Protocol: RN Notified of Procedure: yes ?? [...] matched to patient identification: n/a ?? Responsible libertarian for transporting specimen(s) to lab determined: n/a ?? Inge SIFUENTES IV THERAPY ORDERABLES Fi nal Result * POCT glucose (03/11/2024 3:12 PM CDT) Glucose, POC 159 70 - 199 mg/dL Blood 03/11/2024 3:12 PM CDT 03/11/2024 3:12 PM CDT Chadd Toledo DO LAB POCT ORDERABLES - DEVICE Final Result Performing Organization Address [facility] Co de Phone Number [facility] [place] [address] * (ABNORMAL) CRP (acute phase) (03/11/2024 3:10 PM CDT) CRP 48.6(H) <=10.0 mg/L Blood 03/11/2024 3:10 PM CDT 03/11/2024 3:29 PM CDT Chadd Toledo DO LAB BLOOD ORDERABLES Final Result Performing Organization Address [facility] Co de Phone Number [facility] [place] [address] * Lactate (03/11/2024 3:10 PM CDT) Lactate 1.4 0.7 - 2.0 mmol/L Blood 03/11/2024 3:10 PM CDT 03/11/2024 3:29 PM CDT us Chadd Toledo DO LAB BLOOD ORDERABLES Final Result Performing Organization Address [facility] de Phone Number [facility] [place] [address] * POCT glucose (03/11/2024 1:22 PM CDT) Glucose, POC 152 70 - 199 mg/dL Blood 03/11/2024 1:22 PM CDT 03/11/2024 1:22 PM CDT us Chadd Toledo DO LAB POCT ORDERABLES - DEVICE Final Result Performing Organization Address [facility] de Phone Number [facility] [place] [address] * POCT glucose (03/11/2024 11:57 AM CDT) Glucose, POC 122 70 - 199 mg/dL Blood 03/11/2024 11:5 7 AM CDT 03/11/2024 11:57 AM CDT Chadd DE LA FUENTE POCT ORDERABLES - DEVICE Final Result Performing Organization Address [facility] de Phone Number [facility] [address] * POCT glucose (03/11/2024 9:04 AM CDT) Glucose, POC 135 70 - 199 mg/dL Blood 03/11/2024 9:04 AM CDT 03/11/2024 9:04 AM CDT Chadd Toledo DO LAB POCT ORDERABLES - DEVICE Final Result Performing Organization Address [facility] de Phone Number [facility]IT [facility] [place] [address] * POCT glucose (03/11/2024 7:18 AM CDT) Glucose, POC 98 70 - 199 mg/dL Blood 03/11/2024 7:18 AM CDT 03/11/2024 7:18 AM CDT us Chadd Toledo DO LAB POCT ORDERABLES - DEVICE Final Result Performing Organization Address [facility] Co de Phone Number [facility] Bernard [facility] [place] [address] * XR Chest 1 View (03/11/2024 6:40 [...] - DEVICE Final Result Performing Organization Address [facility] Co de Phone Number [facility] [place] [address] * POCT glucose (03/11/2024 5:16 AM CDT) Glucose, POC 84 70 - 199 mg/dL Blood 03/11/2024 5:16 AM CDT 03/11/2024 5:16 AM CDT Chadd Toledo DO LAB POCT ORDERABLES - DEVICE Final Result Performing Organization Address [facility] Co de Phone Number [facility] [place] [address] * POCT glucose (03/11/2024 3:00 AM CDT) Glucose, POC 102 70 - 199 mg/dL Blood 03/11/2024 3:00 AM CDT 03/11/2024 3:00 AM CDT Chadd Toledo DO LAB POCT ORDERABLES - DEVICE Final Result Performing Organization Address [facility] de Phone Number [facility] [place] [address] * POCT glucose (03/11/2024 1:13 AM CDT) Glucose, POC 117 70 - 199 mg/dL Blood 03/11/2024 1:13 AM CDT 03/11/2024 1:13 AM CDT Chadd Elias Toledo DO LAB POCT ORDERABLES - DEVICE Final Result Performing Organization Address [facility] Phone Number [facility] [place] [address] * Critical Care (03/10/2024 11:48 PM CDT) [...] plan with the ICU team and other medical/direct sales consultant staff, making frequent assessments and decisions [...] - DEVICE Final Result Performing Organization Address [facility] Co de Phone Number [facility] [place] [address] * POCT glucose (03/10/2024 9:02 PM CDT) Glucose, POC 174 70 - 199 mg/dL Blood 03/10/2024 9:02 PM CDT 03/10/2024 9:02 PM CDT Chadd Toledo DO LAB POCT ORDERABLES - DEVICE Final Result Performing Organization Address [facility] Co de Phone Number [facility] [place] [address] * eGFR (03/10/2024 7:44 PM CDT) Pathologist [facility] eGFR >90 >=60 mL/min/1. 73 m2 [...] DO LAB BLOOD ORDERABLES Final Result AJIT [facility] One [facility] [place] [address] * Phosphorus (03/10/2024 7:44 PM CDT) Pathologist [facility] Phosphorus, pl 2.7 2.3 - 4.5 mg/dL Blood 03/10/2024 7:44 PM CDT 03/10/2024 8:00 PM CDT us Chadd Toledo DO LAB BLOOD ORDERABLES Final Result Performing Organization Address City/[facility]/ZIP Co de Phone Number [facility] One [facility] [place] [address] * Magnesium (03/10/2024 7:44 PM CDT) [facility] [address] Magnesium 2.0 1.4 - 2.5 mg/dL Blood 03/10/2024 7:44 PM CDT 03/10/2024 8:00 PM CDT Chadd Toledo LAB BLOOD ORDERABLES Final Result Performing Organization Address [facility] Co de Phone Number [facility] [place] [address] * (ABNORMAL) Basic metabolic panel (03/10/2024 7:44 PM CDT) [facility] [address] Sodium 138 135 - 145 mmol/L Potassium, pl 4.3 3.3 - 4.9 mmol/L [facility] Chloride 104 97 - 110 mmol/L [facility] CO2 27 22 - 32 mmol/L [facility] Anion gap 7 2 - 15 mmol/L [facility] BUN 14 6 - 25 mg/dL [facility] Creatinine 0.49(L) 0.60 - 1.10 mg/dL [facility] Glucose 148 70 - 199 mg/dL [facility] Comment: Interpretive Data Fasting glucose >/= 126 [...] 2022. Calcium 7.9(L) 8.5 - 10.3 mg/dL [facility] Blood 03/10/2024 7:44 PM CDT 03/10/2024 8:00 PM CDT Chadd Toledo DO LAB BLOOD ORDERABLES Final Result [facility] Department [place] [address] * (ABNORMAL) CBC without differential (03/10/2024 7:44 PM CDT) Pathologist [facility] WBC 4.6 3.8 - 9.9 K/cumm Hgb 10.3(L) 11.9 - 15.5 g/dL [facility] Hct 31.5(L) 35.6 - 45.5 % [facility] Plt 110(L) 150 - 400 K/cumm [facility] MPV 8.7(L) 9.1 - 12.3 fL [facility] RBC 3.71(L) 3.90 - 5.20 M/cumm [facility] MCV 84.9 81.3 - 96.4 fL [facility] MCH 27.8 27.1 - 33.3 pg [facility] MCHC 32.7 32.3 - 35.7 g/dL [facility] RDW CV 14.0 11.1 - 14.9 % [facility] RDW SD 43.5 35.7 - 48.1 fL [facility] NRBC abs 0.00 0.00 - 0.01 K/cumm [facility] Blood 03/10/2024 7:44 PM CDT 03/10/2024 8:00 PM CDT Chadd Toledo DO LAB BLOOD ORDERABLES Final Result [facility] [place] [address] * POCT glucose (03/10/2024 7:10 PM CDT) Glucose, POC 148 70 - 199 mg/dL Blood 03/10/2024 7:10 PM CDT 03/10/2024 7:10 PM CDT Chadd Toledo DO LAB POCT ORDERABLES - DEVICE Final Result Performing Organization Address [facility] Co de Phone Number [facility] [place] [address] * POCT glucose (03/10/2024 5:08 PM CDT) Glucose, POC 113 70 - 199 mg/dL Blood 03/10/2024 5:08 PM CDT 03/10/2024 5:08 PM CDT Chadd Toledo DO LAB POCT ORDERABLES - DEVICE Final Result Performing Organization Address [facility] de Phone Number [facility] [place] [address] * POCT glucose (03/10/2024 4:03 PM CDT) Glucose, POC 109 70 - 199 mg/dL Blood 03/10/2024 4:03 PM CDT 03/10/2024 4:03 PM CDT Chadd Toledo DO LAB POCT ORDERABLES - DEVICE Final Result Performing Organization Address [facility] de Phone Number [facility] [place] [address] * POCT glucose (03/10/2024 3:12 PM CDT) Glucose, POC 123 70 - 199 mg/dL Blood 03/10/2024 3:12 PM CDT 03/10/2024 3:12 PM CDT Chadd Toledo DO LAB POCT ORDERABLES - DEVICE Final Result AJIT TRAN One [facility] Department [place] [address] * POCT glucose (03/10/2024 2:05 PM CDT) Glucose, POC 110 70 - 199 mg/dL Blood 03/10/2024 2:05 PM CDT 03/10/2024 2:05 PM CDT Chadd Toledo DO LAB POCT ORDERABLES - DEVICE Final Result Performing Organization Address [facility] Co de Phone Number AJIT TRAN [facility] Department [place] [address] * eGFR (03/10/2024 12:13 PM CDT) [facility] [address] eGFR >90 >=60 mL/min/1. 73 m2 [...] ORDERABLES F inal Result Performing Organization Address City/[facility]/ZIP Co de Phone Number [facility] Department [place] [address] * (ABNORMAL) Basic metabolic panel (03/10/2024 12:13 PM CDT) [facility] [address] Sodium 138 135 - 145 mmol/L Potassium, pl 3.3 3.3 - 4.9 mmol/L [facility] Chloride 105 97 - 110 mmol/L [facility] CO2 26 22 - 32 mmol/L [facility] Anion gap 7 2 - 15 mmol/L [facility] BUN 17 6 - 25 mg/dL [facility] Creatinine 0.49(L) 0.60 - 1.10 mg/dL [facility] Glucose 102 70 - 199 mg/dL [facility] Comment: Interpretive Data Fasting glucose >/= 126 [...] 2022. Calcium 7.5(L) 8.5 - 10.3 mg/dL [facility] Blood 03/10/2024 12:1 3 PM CDT 03/10/2024 12:26 PM CDT Brooke SIFUENTES LAB BLOOD ORDERABLES F inal Result Performing Organization Address [facility]/ZIP [place] [address] * POCT glucose (03/10/2024 12:07 PM CDT) Glucose, POC 112 70 - 199 mg/dL Blood 03/10/2024 12:0 7 PM CDT 03/10/2024 12:07 PM CDT us Cahdd Toledo DO LAB POCT ORDERABLES - DEVICE Final Result Performing Organization Address [facility]/[place] [address] * POCT glucose (03/10/2024 11:07 AM CDT) Glucose, POC 151 70 - 199 mg/dL Blood 03/10/2024 11:0 7 AM CDT 03/10/2024 11:07 AM CDT us Chadd Toledo DO LAB POCT ORDERABLES - DEVICE Final Result Performing Organization Address City/[facility]/[place] [address] * POCT glucose (03/10/2024 10:17 AM CDT) Glucose, POC 111 70 - 199 mg/dL Blood 03/10/2024 10:1 7 AM CDT 03/10/2024 10:17 AM CDT Chadd Toledo DO LAB POCT ORDERABLES - DEVICE Final Result Performing Organization Address City/[facility]/ZIP Co [place] [address] * POCT glucose (03/10/2024 9:25 AM CDT) Glucose, POC 116 70 - 199 mg/dL Blood 03/10/2024 9:25 AM CDT 03/10/2024 9:25 AM CDT us Chadd Toledo DO LAB POCT ORDERABLES - DEVICE Final Result [facility] Department [place] [address] * Critical Care (03/10/2024 8:55 AM CDT) [...] plan with the ICU team and other medical/direct sales consultant staff, making frequent assessments and decisions [...] - DEVICE Final Result Performing Organization Address [facility] Co de Phone Number [facility] [place] [address] * POCT glucose (03/10/2024 7:21 AM CDT) Glucose, POC 128 70 - 199 mg/dL Blood 03/10/2024 7:21 AM CDT 03/10/2024 7:21 AM CDT Chaddtorres Griffin Efetorres DO LAB POCT ORDERABLES - DEVICE Final Result Performing Organization Address [facility] de Phone Number [facility] [place] [address] * POCT glucose (03/10/2024 6:10 AM CDT) Glucose, POC 120 70 - 199 mg/dL Blood 03/10/2024 6:10 AM CDT 03/10/2024 6:10 AM CDT Chadd Toledo DO LAB POCT ORDERABLES - DEVICE Final Result Performing Organization Address [facility] Co de Phone Number [facility] [place] [address] * POCT glucose (03/10/2024 4:16 AM CDT) Glucose, POC 127 70 - 199 mg/dL Blood 03/10/2024 4:16 AM CDT 03/10/2024 4:16 AM CDT us Chadd Toledo DO LAB POCT ORDERABLES - DEVICE Final Result Performing Organization Address [facility] Co de Phone Number AJIT [facility] [place] [address] * POCT glucose (03/10/2024 3:23 AM CDT) Glucose, POC 114 70 - 199 mg/dL Blood 03/10/2024 3:23 AM CDT 03/10/2024 3:23 AM CDT us Chadd Toledo DO LAB POCT ORDERABLES - DEVICE Final Result Performing Organization Address [facility] de Phone Number [facility]IT [facility] [place] [address] * POCT glucose (03/10/2024 2:07 AM CDT) Glucose, POC 109 70 - 199 mg/dL Blood 03/10/2024 2:07 AM CDT 03/10/2024 2:07 AM CDT us Chadd Toledo DO LAB POCT ORDERABLES - DEVICE Final Result Performing Organization Address [facility] Co de Phone Number [facility] Department [place] [address] * POCT glucose (03/10/2024 1:00 AM CDT) Glucose, POC 95 70 - 199 mg/dL Blood 03/10/2024 1:0 0 AM CDT 03/10/2024 1:00 AM CDT us Chadd Toledo DO LAB POCT ORDERABLES - DEVICE Final Result Performing Organization Address [facility] Co de Phone Number [facility] Department [place] [address] * Critical Care (03/09/2024 11:44 PM CDT) [...] plan with the ICU team and other medical/direct sales consultant staff, making frequent assessments and decisions [...] - DEVICE Final Result Performing Organization Address [facility] de Phone Number [facility] [place] [address] * POCT glucose (03/09/2024 10:21 PM CDT) Glucose, POC 121 70 - 199 mg/dL Blood 03/09/2024 10:2 1 PM CDT 03/09/2024 10:21 PM CDT Chadd Griffin Efetorres DO LAB POCT ORDERABLES - DEVICE Final Result Performing Organization Address [facility] de Phone Number [facility] [place] [address] * POCT glucose (03/09/2024 9:17 PM CDT) Glucose, POC 111 70 - 199 mg/dL Blood 03/09/2024 9:17 PM CDT 03/09/2024 9:17 PM CDT Chadd Elias Tre CARR LAB POCT ORDERABLES - DEVICE Final Result Performing Organization Address [facility] [place] [address] * XR Spine Cervical 2 or 3 [...] PM CDT) [facility] [address] Hep A IgM Nonreactive Nonreactive Hep B core IgM Nonreactive Nonreactive [facility] Hep C Ab Nonreactive Nonreactive [facility] Comment:Antibodies to HCV no t detected. Does NOT exclude the possibility of recent exposure to HCV. Current interpretive data was last revised on 22 HepBsAg Nonreactive Nonreactive [facility] Blood 03/09/2024 7:59 PM CDT 03/09/2024 8:07 PM CDT Chadd Toledo DO LAB MICROBIOLOGY - [employer] NERAL ORDERABLES Final Result [facility] One [facility] Department [place] [address] * eGFR (03/09/2024 7:59 PM CDT) [facility] [address] eGFR >90 >=60 mL/min/1. 73 m2 [...] BLOOD ORDERABLES Final Result Performing Organization Address [facility] Co de Phone Number AJIT [facility] [place] [address] * Phosphorus (03/09/2024 7:59 PM CDT) Pathologist [facility] Phosphorus, pl 3.5 2.3 - 4.5 mg/dL Blood 03/09/2024 7:59 PM CDT 03/09/2024 8:21 PM CDT Chadd Toledo DO LAB BLOOD ORDERABLES Final Result Performing Organization Address [facility] Co de Phone Number AJIT [facility] [place] [address] * Magnesium (03/09/2024 7:59 PM CDT) Pathologist [facility] Magnesium 1.8 1.4 - 2.5 mg/dL Blood 03/09/2024 7:59 PM CDT 03/09/2024 8:21 PM CDT Chadd Toledo DO LAB BLOOD ORDERABLES Final Result Performing Organization Address City/State/[facility] Co de Phone Number [facility] One [facility] Department [place] [address] * (ABNORMAL) Basic metabolic panel (03/09/2024 7:59 PM CDT) [facility] [address] Sodium 139 135 - 145 mmol/L Potassium, pl 3.5 3.3 - 4.9 mmol/L [facility] Chloride 103 97 - 110 mmol/L [facility] CO2 25 22 - 32 mmol/L [facility] Anion gap 11 2 - 15 mmol/L [facility] BUN 23 6 - 25 mg/dL [facility] Creatinine 0.54(L) 0.60 - 1.10 mg/dL [facility] Glucose 123 70 - 199 mg/dL [facility] Comment: Interpretive Data Fasting glucose >/= 126 [...] 2022. Calcium 8.1(L) 8.5 - 10.3 mg/dL [facility] Blood 03/09/2024 7:59 PM CDT 03/09/2024 8:21 PM CDT Chadd Toledo DO LAB BLOOD ORDERABLES Final Result Performing Organization Address City/[facility] Co de Phone Number [facility] [place] [address] * (ABNORMAL) CBC without differential (03/09/2024 7:59 PM CDT) [facility] [address] WBC 5.9 3.8 - 9.9 K/cumm Hgb 10.5(L) 11.9 - 15.5 g/dL [facility] Hct 32.1(L) 35.6 - 45.5 % [facility] Plt 118(L) 150 - 400 K/cumm [facility] MPV 9.0(L) 9.1 - 12.3 fL [facility] RBC 3.81(L) 3.90 - 5.20 M/cumm [facility] MCV 84.3 81.3 - 96.4 fL [facility] MCH 27.6 27.1 - 33.3 pg [facility] MCHC 32.7 32.3 - 35.7 g/dL [facility] RDW CV 14.3 11.1 - 14.9 % [facility] RDW SD 43.8 35.7 - 48.1 fL [facility] NRBC abs 0.00 0.00 - 0.01 K/cumm [facility] Blood 03/09/2024 7:59 PM CDT 03/09/2024 8:21 PM CDT Chadd Toledo DO LAB BLOOD ORDERABLES Final Result Performing Organization Address [facility] Co de Phone Number [facility] [place] [address] * HIV 1/2 Antibody plus p24 Antigen Blood (03/09/2024 7:59 PM CDT) [facility] [address] HIV 1/2 ab + p24 ag Nonreactive [...] NERAL ORDERABLES Final Result Performing Organization Address [facility] de Phone Number [facility] [place] [address] * POCT glucose (03/09/2024 7:57 PM CDT) Glucose, POC 157 70 - 199 mg/dL Blood 03/09/2024 7:57 PM CDT 03/09/2024 7:57 PM CDT Chadd Toledo DO LAB POCT ORDERABLES - DEVICE Final Result Performing Organization Address [facility] Phone Number [facility] [place] [address] * POCT glucose (03/09/2024 7:03 PM CDT) Glucose, POC 130 70 - 199 mg/dL Blood 03/09/2024 7:03 PM CDT 03/09/2024 7:03 PM CDT Chadd DE LA FUENTE POCT ORDERABLES - DEVICE Final Result Performing Organization Address [facility] de Phone Number [facility] [place] [address] * POCT glucose (03/09/2024 6:01 PM CDT) Glucose, POC 99 70 - 199 mg/dL Blood 03/09/2024 6:01 PM CDT 03/09/2024 6:01 PM CDT Chadd Elias Craft DO LAB POCT ORDERABLES - DEVICE Final Result Performing Organization Address [facility] Co [place] [address] * POCT glucose (03/09/2024 4:58 PM CDT) Glucose, POC 87 70 - 199 mg/dL Blood 03/09/2024 4:58 PM CDT 03/09/2024 4:58 PM CDT us Chadd Toledo DO LAB POCT ORDERABLES - DEVICE Final Result Performing Organization Address [facility] [place] [address] * POCT glucose (03/09/2024 4:00 PM CDT) Glucose, POC 105 70 - 199 mg/dL Blood 03/09/2024 4:00 PM CDT 03/09/2024 4:00 PM CDT Chadd Toledo DO LAB POCT ORDERABLES - DEVICE Final Result Performing Organization Address [facility] Co de Phone Number [facility] [place] [address] * POCT glucose (03/09/2024 3:15 PM CDT) Glucose, POC 109 70 - 199 mg/dL Blood 03/09/2024 3:15 PM CDT 03/09/2024 3:15 PM CDT Chadd Toledo DO LAB POCT ORDERABLES - DEVICE Final Result Performing Organization Address City/[facility] Co de Phone Number [facility] [address] * POCT glucose (03/09/2024 2:06 PM CDT) Glucose, POC 118 70 - 199 mg/dL Blood 03/09/2024 2:06 PM CDT 03/09/2024 2:06 PM CDT Chadd Toledo DO LAB POCT ORDERABLES - DEVICE Final Result Performing Organization Address [facility] de Phone Number [facility] [place] [address] * POCT glucose (03/09/2024 1:05 PM CDT) Glucose, POC 127 70 - 199 mg/dL Blood 03/09/2024 1:05 PM CDT 03/09/2024 1:05 PM CDT Chadd Toledo DO LAB POCT ORDERABLES - DEVICE Final Result Performing Organization Address [facility] [place] [address] * POCT glucose (03/09/2024 12:01 PM CDT) Glucose, POC 152 70 - 199 mg/dL Blood 03/09/2024 12:0 1 PM CDT 03/09/2024 12:01 PM CDT Chadd Toledo DO LAB POCT ORDERABLES - DEVICE Final Result Performing Organization Address [facility] [place] [address] * Critical Care (03/09/2024 11:03 AM CDT) [...] plan with the ICU team and other medical/direct sales consultant staff, making frequent assessments and decisions [...] POCT ORDERABLES - DEVICE Final Result [facility] One [facility] [place] [address] * (ABNORMAL) POCT glucose (03/09/2024 10:14 AM CDT) Glucose, POC 227(H) 70 - 199 mg/dL Blood 03/09/2024 10:1 4 AM CDT 03/09/2024 10:14 AM CDT Chadd Elias Tre DO LAB POCT ORDERABLES - DEVICE Final Result Performing Organization Address [facility] Co de Phone Number [facility] [place] [address] * (ABNORMAL) POCT glucose (03/09/2024 9:03 AM CDT) Glucose, POC 266(H) 70 - 199 mg/dL Blood 03/09/2024 9:03 AM CDT 03/09/2024 9:03 AM CDT Chadd Toledo DO LAB POCT ORDERABLES - DEVICE Final Result Performing Organization Address [facility] Co de Phone Number [facility] [place] [address] * (ABNORMAL) POCT glucose (03/09/2024 8:01 AM CDT) Glucose, POC 302(H) 70 - 199 mg/dL Blood 03/09/2024 8:01 AM CDT 03/09/2024 8:01 AM CDT Chadd Elias Tre DO LAB POCT ORDERABLES - DEVICE Final Result Performing Organization Address [facility] Co de Phone Number [facility] [place] [address] * (ABNORMAL) POCT glucose (03/09/2024 7:06 AM CDT) Glucose, POC 328(H) 70 - 199 mg/dL Blood 03/09/2024 7:06 AM CDT 03/09/2024 7:06 AM CDT us Chadd Toledo DO LAB POCT ORDERABLES - DEVICE Final Result Performing Organization Address [facility] Co de Phone Number [facility]IT [facility] [place] [address] * eGFR (03/09/2024 6:27 AM CDT) eGFR [...] BLOOD ORDERABLES Final Result Performing Organization Address [facility] Co de Phone Number [facility]IT [facility] [place] [address] * (ABNORMAL) CBC without differential (03/09/2024 6:27 AM CDT) [facility] [address] WBC 6.5 3.8 - 9.9 K/cumm Hgb 11.2(L) 11.9 - 15.5 g/dL [facility] Hct 33.4(L) 35.6 - 45.5 % [facility] Plt 132(L) 150 - 400 K/cumm [facility] MPV 9.1 9.1 - 12.3 fL [facility] RBC 3.95 3.90 - 5.20 M/cumm [facility] MCV 84.6 81.3 - 96.4 fL [facility] MCH 28.4 27.1 - 33.3 pg [facility] MCHC 33.5 32.3 - 35.7 g/dL [facility] RDW CV 14.1 11.1 - 14.9 % [facility] RDW SD 43.6 35.7 - 48.1 fL [facility] NRBC abs 0.00 0.00 - 0.01 K/cumm [facility] Blood 03/09/2024 6:27 AM CDT 03/09/2024 6:45 AM CDT us Chadd Toledo DO LAB BLOOD ORDERABLES Final Result [facility] One [facility] [place] [address] * (ABNORMAL) Comprehensive metabolic panel (03/09/2024 6:27 AM CDT) [facility] [address] Sodium 139 135 - 145 mmol/L Potassium, pl 4.1 3.3 - 4.9 mmol/L [facility] Chloride 101 97 - 110 mmol/L [facility] CO2 27 22 - 32 mmol/L [facility] Anion gap 11 2 - 15 mmol/L [facility] BUN 20 6 - 25 mg/dL [facility] Creatinine 0.63 0.60 - 1.10 mg/dL [facility] Glucose 335(H) 70 - 199 mg/dL [facility] Comment: Interpretive Data Fasting glucose >/= 126 [...] 2022. Calcium 8.9 8.5 - 10.3 mg/dL [facility] Bilirubin, total 0.9 0.1 - 1.2 mg/dL [facility] Protein, pl 7.8 6.5 - 8.5 g/dL [facility] Albumin 3.7 3.5 - 5.0 g/dL [facility] Alk phos 149(H) 40 - 130 Units/L [facility] ALT 29 7 - 45 Units/L [facility] AST 79(H) 10 - 45 Units/L [facility] Blood 03/09/2024 6:27 AM CDT 03/09/2024 6:46 AM CDT Chadd Toledo DO LAB BLOOD ORDERABLES Final Result Performing Organization Address City/[facility]/ZIP Co de Phone Number [facility] One [facility] [place] [address] * (ABNORMAL) POCT glucose (03/09/2024 6:17 AM CDT) [facility] [address] Glucose, POC 342(H) 70 - 199 mg/dL Comment:Glu2: RN/MD Notified Glucose comment 1 Glu2: RN/MD Notified [facility] Blood 03/09/2024 6:17 AM CDT 03/09/2024 6:17 AM CDT Chadd Toledo DO LAB POCT ORDERABLES - DEVICE Final Result AJIT TRAN [facility] [place] [address] * (ABNORMAL) POCT glucose (03/09/2024 5:07 AM CDT) Glucose, POC 376(H) 70 - 199 mg/dL Blood 03/09/2024 5:07 AM CDT 03/09/2024 5:07 AM CDT Chadd Toledo DO LAB POCT ORDERABLES - DEVICE Final Result Performing Organization Address [facility] Co de Phone Number AJIT [facility] Bernard [facility] [place] [address] * (ABNORMAL) Drugs of Abuse Screen, Urine without Confirmation (03/09/2024 4:46 AM CDT) Pathologist [facility] Amphetamine, ur Screen Positive, presumptive (A) [...] Barbiturates, ur Not Detected CutOff 200ng/mL [facility] Comment: Interpretive Data - Barbiturates: ??Samples containing greater than 200 ng/mL secobarbital or other cross-reacting barbiturate compounds are reported as positive. ??False positive and false negative results are possible. Confirmatory testing required for definitive results. Current Interpretive Data was last reviewed 2023. Benzodiazepines, ur Not Detected CutOff 100ng/mL AJIT [facility] Comment: Interpretive Data - Benzodiazepines: ??Samples containing greater than 100 ng/mL nordiazepam or other cross-reacting compounds are reported as positive. False positive and false negative results are possible. Confirmatory testing required for definitive results. Current Interpretive Data was last reviewed 2023. Cannabinoids, ur Not Detected CutOff 50 ng/mL [facility] Comment: Interpretive Data - Cannabinoids: ??Samples containing greater than 50 ng/mL delta-9 THC -COOH or other cross-reacting compounds are reported as positive. ??False positive and false negative results are possible. ??Confirmatory testing required for definitive results. Current Interpretive Data was last reviewed 2023. Cocaine, ur Not Detected CutOff 150ng/mL [facility] Comment: Interpretive Data - Cocaine: ??Samples containing greater than 150 ng/mL benzoylecgonine or other cross-reacting compounds are reported as positive. False positive and false negative results are possible. Confirmatory testing required for definitive results. Current Interpretive Data was last reviewed 2023. Fentanyl, Ur Screen Positive, presumptive (A) CutOff 5 ng/mL [facility] Comment: Interpretive Data - Fentanyl: ?? Samples containing greater than 5 ng/mL norfentanyl, fentanyl, or other cross-reacting fentanyl compounds are reported as positive. False positive and false negative results are possible. Confirmatory testing required for definitive results. Current Interpretive Data was last reviewed 2023. Methadone, ur Not Detected CutOff 300ng/mL [facility] Comment: Interpretive Data - Methadone: ??Samples containing greater than 300 ng/mL d,l-methadone or other cross-reacting compounds are reported as positive. ??False positive and false negative results are possible. Confirmatory testing required for definitive results. Current Interpretive Data was last reviewed 2023. Opiates, ur Not Detected CutOff 300ng/mL [facility] Comment: Interpretive Data - Opiates: ??Samples containing greater than 300 ng/mL morphine or other cross-reacting compounds are reported as positive. ??False positive and false negative results are possible. Confirmatory testing required for definitive results. Current Interpretive Data was last reviewed 2023. Oxycodone, ur Not Detected CutOff 100ng/mL [facility] Comment: Interpretive Data - Oxycodone: ??Samples containing greater than 100 ng/mL oxycodone or other cross-reacting compounds are reported as ??positive. ??False positive and false negative results are possible. Confirmatory testing required for definitive results. Current Interpretive Data was last reviewed 2023. Phencyclidine, ur Not Detected CutOff 25 ng/mL [facility] Comment: Interpretive Data - Phencyclidine: ??Samples containing greater than 25 ng/mL phencyclidine or other cross-reacting compounds are reported as positive. ??False positive and false negative results are possible. Confirmatory testing required for definitive results. Current Interpretive Data was last reviewed 2023. Urine Creatinine 47 mg/dL [facility] Comment: Interpretive Data Urine Creatinine: < 10 mg/dL is extremely dilute = or > 10 but < 20 mg/dL is dilute = or > 20 mg/dL is normal Current Interpretive Data was last revised on 2017. Urine 03/09/2024 4:46 AM CDT 03/09/2024 4:57 AM CDT Narrative [facility] - 03/09/2024 5:28 AM CDT Drug of Abuse screening is performed by immunoassay for medical purposes only. ??This is not to be used for Pain Management purposes. us Rosalio Calixto MD LAB URINE ORDERABLES Fin al Result Performing Organization Address City/[facility] Co de Phone Number [facility] [place] [address] * (ABNORMAL) POCT glucose (03/09/2024 3:18 AM CDT) [facility] Glucose, POC 368(H) 70 - 199 mg/dL Blood 03/09/2024 3:18 AM CDT 03/09/2024 3:18 AM CDT us Jack Wilks MD LAB POCT ORDERABLES - DEVICE Final Result Performing Organization Address [facility] Co de Phone Number [facility] [place] [address] * MRI Spine Total Complete W WO [...] ORDERABLES Final R esult Performing Organization Address [facility] de Phone Number [facility] [place] [address] * (ABNORMAL) Protime-INR (03/09/2024 12:24 AM CDT) PT 13.4(H) 9.7 - 13.0 sec INR 1.24(H) 0.90 - 1.20 [facility] Comment: Interpretive data Oral anticoagulant therapeutic [...] ORDERABLES Final R esult Performing Organization Address [facility] de Phone Number [facility] [place] [address] * PA CRITICAL CARE ILL/INJURED PATIENT INIT 30-74 MIN [...] at 7:43 AM. ?? Dictated by: Julia Fielsd M.D. The radiology attending physician has personally [...] 11:31 PM CDT) ABO Rh O Negative [facility] HC[facility] OTHER 03/08/2024 11:3 1 PM CDT 03/08/2024 11:42 PM CDT Rosalio Calixto MD LAB BLOOD ORDERABLES Fin al Result AJIT [facility] One [facility] [place] [address] [facility] * XR Elbow Right 2 Views (03/08/2024 [...] Simran Larkin M.D. us Rosalio Calixto MD IM CT [...] POCT ORDERABLES - DE VICE Final Result [facility] One [facility] Department [place] [address] * eGFR (03/08/2024 7:04 PM CDT) Pathologist [facility] eGFR >90 >=60 mL/min/1. 73 m2 [...] LAB BLOOD ORDERABLES Fin al Result AJIT [facility] One [facility] [place] [address] * (ABNORMAL) Differential, auto (03/08/2024 7:04 PM CDT) Pathologist [facility] Neutrophil abs 11.4(H) 1.5 - 6.5 K/cumm Imm gran abs 0.2(H) 0.0 - 0.1 K/cumm [facility] Lymphocyte abs 1.0 0.8 - 3.3 K/cumm [facility] Monocyte abs 1.0(H) 0.2 - 0.8 K/cumm [facility] Eosinophil abs 0.1 0.0 - 0.5 K/cumm [facility] Basophil abs 0.0 0.0 - 0.1 K/cumm [facility] Neutrophil pct 83.5 % [facility] Comment: Interpretive Data Percent cell count reference ranges are not reported, since discordance with absolute values may lead to misinterpretation of CBC data. Current Interpretive Data was last revised on 2017. Imm gran pct 1.1 % [facility] Comment: Interpretive Data Percent cell count reference ranges are not reported, since discordance with absolute values may lead to misinterpretation of CBC data. Current Interpretive Data was last revised on 2017. Lymphocyte pct 7.6 % [facility] Comment: Interpretive Data Percent cell count reference ranges are not reported, since discordance with absolute values may lead to misinterpretation of CBC data. Current Interpretive Data was last revised on 2017. Monocyte pct 7.1 % [facility] Comment: Interpretive Data Percent cell count reference ranges are not reported, since discordance with absolute values may lead to misinterpretation of CBC data. Current Interpretive Data was last revised on 2017. Eosinophil pct 0.4 % [facility] Comment: Interpretive Data Percent cell count reference ranges are not reported, since discordance with absolute values may lead to misinterpretation of CBC data. Current Interpretive Data was last revised on 2017. Basophil pct 0.3 % [facility] Comment: Interpretive Data Percent cell count reference ranges are not reported, since discordance with absolute values may lead to misinterpretation of CBC data. Current Interpretive Data was last revised on 2017. Blood 03/08/2024 7:04 PM CDT 03/08/2024 7:15 PM CDT us Rosalio Calixto MD LAB BLOOD ORDERABLES Fin al Result [facility] [place] [address] * Ethanol (03/08/2024 7:04 PM CDT) Pathologist [facility] Ethanol <10 <=10 mg/dL Comment: Hemolyzed; result may be falsely decreased Interpretive Data Legal limit of intoxication > or = 80 mg/dL Levels > or = 400 mg/dL are potentially TOXIC. Current interpretive data was last revised on 2018. Blood 03/08/2024 7:04 PM CDT 03/08/2024 7:14 PM CDT Rsoalio Calixto MD LAB BLOOD ORDERABLES Fin al Result Performing Organization Address City/[facility] Co de Phone Number [facility] [place] [address] * Type and screen (03/08/2024 7:04 PM CDT) Pathologist [facility] Anselmo, indirect Negative ABO Rh O Negative [facility] Blood 03/08/2024 7:04 PM CDT 03/08/2024 7:23 PM CDT Narrative [facility] - 03/08/2024 8:14 PM CDT Has the patient had Daratumumab or Isatuximab in the past 6 months?->Unknown us Rosalio Calixto MD LAB BLOOD BANK TEST ORDE ISHA Final Result [facility] [place] [address] * (ABNORMAL) CBC with auto differential (03/08/2024 7:04 PM CDT) Pathologist [facility] WBC 13.7(H) 3.8 - 9.9 K/cumm Hgb 11.9 11.9 - 15.5 g/dL [facility] Hct 36.3 35.6 - 45.5 % [facility] Plt 196 150 - 400 K/cumm [facility] MPV 9.6 9.1 - 12.3 fL [facility] RBC 4.29 3.90 - 5.20 M/cumm [facility] MCV 84.6 81.3 - 96.4 fL [facility] MCH 27.7 27.1 - 33.3 pg [facility] MCHC 32.8 32.3 - 35.7 g/dL [facility] RDW CV 14.7 11.1 - 14.9 % [facility] RDW SD 43.9 35.7 - 48.1 fL [facility] NRBC abs 0.00 0.00 - 0.01 K/cumm [facility] Blood 03/08/2024 7:04 PM CDT 03/08/2024 7:15 PM CDT us Rosalio Calixto MD LAB BLOOD ORDERABLES Fin al Result [facility] One [facility] [place] [address] * (ABNORMAL) Comprehensive metabolic panel (03/08/2024 7:04 PM CDT) Sodium 138 135 - 145 mmol/L Potassium, pl See Comment 3.3 - 4.9 mmol/L [facility] Comment:Credited; Hemolyzed Specimen Chloride 102 97 - 110 mmol/L [facility] CO2 25 22 - 32 mmol/L [facility] Anion gap 11 2 - 15 mmol/L [facility] BUN 20 6 - 25 mg/dL [facility] Creatinine 0.61 0.60 - 1.10 mg/dL [facility] Glucose 276(H) 70 - 199 mg/dL [facility] Comment: Interpretive Data Fasting glucose >/= 126 [...] 2022. Calcium 8.9 8.5 - 10.3 mg/dL [facility] Bilirubin, total 0.7 0.1 - 1.2 mg/dL [facility] Protein, pl 8.0 6.5 - 8.5 g/dL [facility] Albumin 3.8 3.5 - 5.0 g/dL [facility] Alk phos 153(H) 40 - 130 Units/L [facility] Comment:Hemolyzed; result ma y be falsely decreased ALT See Comment 7 - 45 Units/L [facility] Comment:Credited; Hemolyzed Specimen AST See Comment 10 - 45 Units/L [facility] Comment:Credited; Hemolyzed Specimen Blood 03/08/2024 7:04 PM CDT 03/08/2024 7:14 PM CDT Rosalio Calixto MD LAB BLOOD ORDERABLES Fin al Result Performing Organization Address City/[facility]/ZIP Co de Phone Number [facility] [place] [address] * (ABNORMAL) POCT glucose (03/08/2024 6:14 PM CDT) Glucose, POC 223(H) 70 - 199 mg/dL Blood 03/08/2024 6:14 PM CDT 03/08/2024 6:14 PM CDT Notinfile Unknown LAB POCT ORDERABLES - DEVICE F inal Result Performing Organization Address City/[facility]/ZIP Co de Phone Number [facility] [place] [address] * POCT ketone, blood (03/08/2024 6:14 PM CDT) Ketones, Blood, POC 0.4 0.0 - 0.5 mmol/L Blood 03/08/2024 6:14 PM CDT 03/08/2024 6:14 PM CDT us Notinfile Unknown LAB POCT ORDERABLES - DEVICE F inal Result AJIT [facility] One [facility] [place] [address] documented in this encounter Visit Diagnoses Diagnosis [...] mL irrigation solution As needed, Starting on 03/13/24 at 1739, Intra-Op Given 03/13/2024 8:15 [...] Provider: Brooke Junior RN)2143 (Given - Provider: Lieghann Solitario) 0844 (Given - Provider: Diana Bowers [...] Jenifer Murillo RN)0848 (Given - Provider: Chaim Pacheco RN)1308 (Given - Provider: Chaim Pacheco, JULISSA) insulin [...] Diana Bowers RN)1334 (Given - Provider: Diana Bowers, JULISSA)1839 (Given - Provider: Diana Bowers RN) 0849 (Given - Provider: Chaim Pacheco RN)1308 (Given - Provider: Chaim Pacheco, JULISSA) lidocaine [...] and leg)2342 (Medication Removed - Provider: Jenifer Murillo, JULISSA) 1136 (Medication Applied - Provider: Chaim Pacheco, [...] Diana Bowers RN)2157 (Given - Provider: Jenifer Murillo, JULISSA) 0812 (Given - Provider: Chaim Pacheco, JULISSA)1136 [...] patient stated she had a large Bm yesterday.)215 (Not Given - Provider: Jenifer Murillo RN [...] 2100 0822 (Given - Provider: Brooke Junior RN)2149 (Given - Provider: Leighann Solitario) 0844 (Given - Provider: Diana Bowers RN)215 (Given - Provider: Jenifer Murillo RN) 0811 (Given - Provider: Chaim Pacheco, JULISSA) sodium chloride 0.9% flush 0.5-20 mL 0.5-20 [...] access) 0517 (Not Given - Provider: Jenifer Muirllo RN - Reason: Other)0813 (Not Given - [...] Murillo RN) 0936 (Given - Provider: Chaim Pacheco, JULISSA) Linked Groups Order Group 1: dextrose gel [...] 03/10/2024 hydrOXYzine (ATARAX) tablet 25 mg 1 methocarbamoL (ROBAXIN) tablet 500 mg 2 03/09/2024 ondansetron (ZOFRAN) injection 4 mg 1 03/10 potassium chloride (KLOR-CON ) packet 40 mEq 2 03/10/2024 ampicillin-sulbactam (UNASYN ) 3 g/110 mL in sodium chloride 0.9% (premix) 3 g 2 03/09/2024 Carrier Fluids for Secondary Infusion - 0.9% Sodium Chloride 1 03/09/2024 dextrose 5% and Lactated Ringer's infusion 03/09/2024 dextrose 5% and sodium chlor usha [...] POST-ACUTE CARE 1 024 IP CONSULT TO MEDIA REPORTER 1 IP CONSULT TO NUTRITION SERVICES 1 [...] MRSA Comment:IP reviewed 03/10/2024 Postive last at [facility] on 01/23/24 Added from external infection. Source: [facility] - [facility]. 07/06/2017 Ring Surveillance 03/29/2024 03/29/2024 04/18/2024 12:36 PM CDT documented as of this encounter Care Teams Meat And Seafood Clerk Relationship Specialty Start Date End Date Nayana Garber PA [address] [place] [address] PCP - General Emergency Medicine 06/18/23 04/09/24 documented as of this encounter
--- OUTSIDE RECORDS SUMMARY | 2024-08-23 19:11 | XMS_ITS | Encounter Summary ---
Author Organization [facility] Healthcare Address [address] [place] [address] Care Team Providers Care Shredding Specialist Name Role Phone Nayana Garber Primary Care Provider + [phone] Encounter Details Date Type Department Care Team (Late st Contact Info) Description 03/09/2024 2:05 PM CDT Anesthesia Event [facility] Operating Room [address] [place] [address] Haley Pereira MD [address] [place] [address] Anesthesia Record Procedure Summary Procedure Name Responsible [...] Incision; Back 0 03/13/242137 by Justyna Villarreal, school bus attendant 03/18/24; 1703; N; M ASD; Groin; Anterior, Left 03/18/241702 by Justyna Villarreal RN Wound 03/19/24; 1200; N (p er pt); MASD; Perineum; Posterior; redness, tender 03/19/24 1200 by Justyna Villarreal RN documented in this encounter Social History Tobacco Use Types Packs/Day Years Used Date Smoking Tobacco: Never Assessed [facility] Utilities Answer Date Recorded In [...] often do you attend chur ch or zoroastrianism services? 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 Health AUDIT-C ??? Frequency of Alcohol Consumption: [...] on filedocumented in this encounter Care Teams Shredding Specialist Relationship Specialty Start Date End Date Nayana Garber PA [address] [place] [address] PCP - General Emergency Medicine 06/18/23 04/09/24 documented as of this encounter
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
--- NOTE | 2024-08-25 12:19 | PC.NURSE ---
FINAL BLOOD CULTURE REPORT; NO GROWTH AFTER 5 DAYS X2, NO FURTHER ACTION OR CHANGE IN TREATMENT NEEDED.
== END 2024-08-16 17:58 | disposition short-term general hospital (02) ==
PROVIDERS: Emergency Provider Internal Medicine Critical Care Medicine
DX: N17.9 Acute kidney failure, unspecified (principal); J96.01 Acute respiratory failure with hypoxia; J18.9 Pneumonia, unspecified organism; R41.0 Disorientation, unspecified; E11.9 Type 2 diabetes mellitus without complications; S81.801A Unspecified open wound, right lower leg, initial encounter; X58.XXXA Exposure to other specified factors, initial encounter; Z87.820 Personal history of traumatic brain injury; Z79.84 Long term (current) use of oral hypoglycemic drugs; Z79.4 Long term (current) use of insulin; F17.210 Nicotine dependence, cigarettes, uncomplicated; F12.90 Cannabis use, unspecified, uncomplicated; Z20.822 Contact with and (suspected) exposure to COVID-19; Z79.899 Other long term (current) drug therapy
CPT/HCPCS: 36415; 36600; 70450; 71045; 80048; 80053; 80307; 81001; 82140; 82550; 82805; 83605; 83690; 83735; 83880; 84443; 84484; 85018; 85025; 85380; 85610; 85730; 87040; 87077; 87086; 87088; 87186; 87637; 93005; 96361; 96365; 96367; 99285; J0692; J1815; J3370; J7030; J7120

== ENCOUNTER 2024-11-15 09:19 | Emergency (ER) | payer MEDICARE, SELFPAY ==
[2024-11-15] VITALS (22 sets, daily range): BP systolic 147–158; BP diastolic 71–74; PULSE 102–114; RESP 18–25; TEMP 37.2; O2SAT 91–96
--- NOTE | ~2024-11-15 | XR_ITS ---
EXAMINATION: XR chest 1V portable DATE: 11/15/2024 09:40 INDICATION: Cough. Altered mental status. TECHNIQUE: frontal view of the chest was obtained. COMPARISON: Chest radiograph dated 08/16/2024 FINDINGS: The lungs are clear with no focal airspace opacities, pulmonary edema, pleural effusion or pneumothor ax. The cardiomediastinal silhouette is normal. Mild lower thoracic dextrocurvature with moderate spo ndylosis. Multilevel cervicothoracic posterior spinal fusion with bilateral vertical rods and lateral mass/pedicle screw fixation. IMPRESSION: 1. No acute cardiopulmonary disease. Reviewed, dictated and finalized at location A.
--- NOTE | ~2024-11-15 | CT_ITS ---
EXAMINATION: CT brain wo con DATE: 11/15/2024 10:16 INDICATION: Altered mental status. Unresponsiveness. TECHNIQUE: Computed tomography (CT) of the head was performed without intravenous contrast. Sagittal and coronal reconstructions were performed. The mA was adjusted according to patient size. Iterative reconstruction technique was employed. The dose-length product was 983.67 mGy-cm. COMPARISON: head CT dated 08/16/2024 FINDINGS: No acute intracranial hemorrhage, acute infarction or abnormal extra axial fluid collection. Ventricl es are normal and symmetric. No mass/mass effect. Mucosal thickening in the left maxillary sinus. 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 Changes of bilateral intraocular lens replacement. The orbits and mastoid air cells are normal. IMPRESSION: 1. Normal brain. No acute intracranial process. Reviewed, dictated and finalized at location A.
--- NOTE | 2024-11-15 09:21 | ED_ITS ---
HPI - Altered Mental Status General Chief Complaint: Altered Mental Status Stated Complaint: altered mental status Time Seen by Provider: 11/15/24 09:21 Source: patient and EMS Mode of arrival: EMS Limitations: altered mental status History of Present Illness HPI narrative: 59-year-old female with a history of drug use, TBI,, status post cervical fusion, diabetes mellitus, diabetic foot ulcers, peripheral vascular disease status post right big toe amputation, was brought in by EMS from home with -- altered mental status. The patient is arousable. She is very drowsy. She follows verbal commands. -- fall smelling right heel ulcer -- bilateral leg swelling/chronic venous stasis changes with ulcerations on right leg and left lateral foot patient is unable to provide any history. The patient has a caregiver who provided some history to EMS. blood sugar was noted to be 234. MD complaint: altered mental status Onset (ago): unknown Timing confirmed by: caregiver Consistency of symptoms: unknown Context: drug abuse Related Data Home Medications ?Medication ?Instructions ?Recorded ?Confirmed ?Last Taken ?Type cyclobenzaprine 10 mg tablet 10 mg PO BID 05/23/23 05/23/23 Unknown History gabapentin 300 mg capsule 300 mg PO TID 05/23/23 05/23/23 Unknown History glipizide 10 mg tablet 10 mg PO BID 05/23/23 05/23/23 Unknown History insulin detemir U-100 100 unit/mL 10 unit subcut HS 05/23/23 05/23/23 Unknown History (3 mL) subcutaneous pen meloxicam 15 mg tablet 15 mg PO HS 05/23/23 05/23/23 Unknown History Allergies Allergy/AdvReac Type Severity Reaction Status Date / Time naproxen Allergy Unknown Hives Verified 11/15/24 13:06 Review of Systems 2 Review of Systems: ROS unobtainable: Yes unobtainable due to mental status PMFSH Past Medical History Medical History Cervical vertebral fusion TBI (traumatic brain injury) Family History Family History Other Cerebrovascular accident Diabetes mellitus Family history of cardiovascular disease Family history of malignant neoplasm Hypertension Social History Social History Smoking packs per day: 0.1 Smoking cigarettes per day: 2.0 Years smoked: 40 Smoking pack-years: 4.00 Smoking status: Current every day smoker Tobacco type: cigarettes Alcohol intake: never Substance use: current Substance use type: marijuana Lack of Transportation: No Lack of Food: Never True Current Housing: I Have Housing Concerned About Future Housing: No Difficulty Paying Gas/Electric Bills: No Difficulty Paying for Meds: No Currently Unemployed: No Education: High School Diploma/GED Difficulty w/ Childcare or Family Care: No Spiritual care concerns: No Exam 2 Narrative: Afebrile. Vitals are stable. Oxygen saturation of 94% on room air. Const: General: ill appearing Limitations: altered mental status Other: Patient is very drowsy but arousable. She follows verbal commands. HENMT: Head: normal to inspection Ears: external ears normal F michael/Nose/Sinus: Normal external nose present Face and sinus: normal facial exam Mouth: Yes dry mucous membranes Teeth and gingiva: abnormal tooth and associated gingiva Throat: posterior oropharynx normal Eyes: Conjunctivae: conjunctivae normal Pupils: Equal, round and reactive pupils present EOM: EOMs intact bilaterally Neck: Neck: normal visual inspection, no lymphadenopathy and no meningeal signs Chest: Chest palpation & inspection: normal inspection of the chest Resp: Effort & Inspection: normal respiratory effort Auscultation: clear to auscultation bilaterally Cardio: Rate: tachycardic Rhythm: regular rhythm GI: GI Palp: Yes Soft to palpation Auscultation: normal bowel sounds O ther: No tenderness/ rigidity /rebound. : General: Yes no CVA tenderness Back/Spine/Pelvis: Back: no CVA tenderness Skin: Other: Ulcerations over right heel, left lateral foot and left leg. The right heel ulceration is deep and foul-smelling. Neuro: General: moves all extremities and no meningeal signs Other: Moves all her limbs. Extrem: General: edema Other: Right heel ulcer edema in bilateral lower extremities Course Course Emergency Course: UTI diabetic foot ulcer/ Peripheral vascular disease with history of right big toe amputation. Patient received vancomycin and cefepime. bronchitis -- chest x-ray did not show any acute findings. altered mental status-- urine positive for cocaine. CT of the head is negative. Vital Signs Vital signs: Vital Signs Pulse Rate 114 H 11/15/24 09:19 Temperature 37.2 C 11/15/24 09:29 Pulse Rate 104 H 11/15/24 13:00 Respiratory Rate 23 H 11/15/24 13:00 Blood Pressure 158/74 H 11/15/24 09:29 Pulse Oximetry 94 11/15/24 13:00 Oxygen Delivery Room Air 11/15/24 09:29 MDM - Altered Mental Status MDM Narrative Medical decision making narrative: sepsis secondary to UTI, diabetic foot bronchitis Renal insufficiency, hypo magnesemia hyperglycemia Urine positive for cocaine Differential Diagnosis Differential diagnosis: Likely delirium Medical Records Attestation: I reviewed the patient's medical records. Lab Data Attestation: I reviewed the patient's lab results. 11/15/24 09:48 11/15/24 09:48 Labs: Lab Results 11/15/24 11/15/24 11/15/24 Range/Units 09:23 09:24 09:48 WBC 11.3 H (4.8-10.8) K/mm3 RBC 4.23 (4.20-5.40) M/mm3 Hgb 11.7 L (12.0-15.0) g/dL Hct 36.5 (35.0-49.0) % MCV 86.3 (78.0-102.0) fL MCH 27.7 (27.0-31.0) pg MCHC 32.1 (32-36) g/dL RDW 16.6 H (11.6-14.4) % Plt Count 113 L (150-420) K/mm3 MPV 9.4 (9.2-11.8) fl Immature Gran % (Auto) 0.6 H (0.0-0.0) % Neut % (Auto) 88.6 H (50.0-70.0) % Lymph % (Auto) 5.0 L (18.0-42.0) % [place] % (Auto) 5.6 (2.0-11.0) % Eos % (Auto) 0.0 L (1.0-6.0) % Baso % (Auto) 0.2 (0.0-1.0) % Lymph # (Auto) 0.57 L (1.10-4.50) K/mm3 [place] # (Auto) 0.63 (0.10-0.90) K/mm3 Eos # (Auto) 0.00 L (0.02-0.50) K/mm3 Baso # (Auto) 0.02 (0.00-0.10) K/mm3 Abs Immat Gran (auto) 0.07 H (0.00-0.00) K/mm3 Absolute Neuts (auto) 10.03 H (1.70-7.20) K/mm3 Absolute Nucleated RBC 0.00 (0.00-0.00) K/mm3 Nucleated RBC % 0.0 (0-0.0) % ESR 14 (0-20) mm/hr PT 12.5 H (9.50-12.1) Seconds INR 1.1 APTT 31.0 H (23.9-30.70) Sec Sodium 134 L (136-145) mmol/L Potassium 3.7 (3.5-5.1) mmol/L Chloride 99 (98-108) mmol/L Carbon Dioxide 27 (21-32) mmol/L Anion Gap 8 (4-12) mmol/L BUN 28 H (7-18) mg/dL Creatinine 1.10 H (0.55-1.02) mg/dL Estim Creat Clear Calc 65 ml/min Estimated GFR 51 L (59 - ) Glucose 216 H (70-99) mg/dL POC Capillary Glucose 234 H (65-105) mg/dl Calculated Osmolality 290 (285-295) mOsm/kg Lactic Acid 2.8 H (0.4-2.0) mmol/L Calcium 8.9 (8.5-10.1) mg/dL Magnesium 1.7 L (1.8-2.4) mg/dL Total Bilirubin 1.3 H (0.00-1.00) mg/dL AST 37 (15-37) U/L ALT 16 (14-59) U/L Alkaline Phosphatase 170 H (46-116) U/L Total Creatine Kinase 109 (26-192) U/L Troponin I 27.2 (0.00-60.4) ng/L NT-Pro-B Natriuret Pep 208 H (0-125) pg/mL Total Protein 9.8 H (6.4-8.2) g/dL Albumin 3.0 L (3.4-5.0) g/dL Lipase 19 (16-77) U/L TSH 0.16 L (0.36-3.74) uIU/mL Urine Color Dark yellow (Yellow) Urine Appearance Clear (Clear) Urine pH 6.0 (5.0-8.0) Ur Specific [place] >= 1.030 H (1.010-1.020) Urine Protein 2+ H (Negative) Urine Glucose (UA) Negative (Negative) Urine Ketones Trace H (Negative) Ur Blood (Man) 3+ H (Negative) Urine Nitrate Positive H (Negative) Urine Bilirubin 1+ H (Negative) Urine Urobilinogen 0.2 (0.2-1.0) mg/dL Leukocyte Esterase Rfl Negative (Negative) UDAY/UL Urine RBC 11-20 H (0-2) /hpf Urine WBC None seen (0-3) /hpf Ur Squamous Epith Cells Few (Few) /hpf Urine Bacteria 3+ H (None) /hpf Urine Yeast (Budding) Present H (None) /hpf Ur Oval Fat Bodies None (None) /lpf Urine Opiates Screen Negative (Negative) Urine Methadone Screen Negative (Negative) Ur Barbiturates Screen Negative (Negative) Ur Phencyclidine Scrn Negative (Negative) Ur Amphetamine Screen Negative (Negative) U Benzodiazepines Scrn Negative (Negative) Urine Cocaine Screen Positive A (Negative) U Cannabinoids Screen Negative (Negative) Influenza A (RT-PCR) Negative (Negative) Influenza B (RT-PCR) Negative (Negative) RSV (RT-PCR) Negative (Negative) SARS-CoV-2 RNA (RT-PCR) Negative (Negative) 11/15/24 Range/Units 12:26 WBC (4.8-10.8) K/mm3 RBC (4.20-5.40) M/mm3 Hgb (12.0-15.0) g/dL Hct (35.0-49.0) % MCV (78.0-102.0) fL MCH (27.0-31.0) pg MCHC (32-36) g/dL RDW (11.6-14.4) % Plt Count (150-420) K/mm3 MPV (9.2-11.8) fl Immature Gran % (Auto) (0.0-0.0) % Neut % (Auto) (50.0-70.0) % Lymph % (Auto) (18.0-42.0) % [place] % (Auto) (2.0-11.0) % Eos % (Auto) (1.0-6.0) % Baso % (Auto) (0.0-1.0) % Lymph # (Auto) (1.10-4.50) K/mm3 [place] # (Auto) (0.10-0.90) K/mm3 Eos # (Auto) (0.02-0.50) K/mm3 Baso # (Auto) (0.00-0.10) K/mm3 Abs Immat Gran (auto) (0.00-0.00) K/mm3 Absolute Neuts (auto) (1.70-7.20) K/mm3 Absolute Nucleated RBC (0.00-0.00) K/mm3 Nucleated RBC % (0-0.0) % ESR (0-20) mm/hr PT (9.50-12.1) Seconds INR APTT (23.9-30.70) Sec Sodium (136-145) mmol/L Potassium (3.5-5.1) mmol/L Chloride (98-108) mmol/L Carbon Dioxide (21-32) mmol/L Anion Gap (4-12) mmol/L BUN (7-18) mg/dL Creatinine (0.55-1.02) mg/dL Estim Creat Clear Calc ml/min Estimated GFR (59 - ) Glucose (70-99) mg/dL POC Capillary Glucose (65-105) mg/dl Calculated Osmolality (285-295) mOsm/kg Lactic Acid 2.9 H (0.4-2.0) mmol/L Calcium (8.5-10.1) mg/dL Magnesium (1.8-2.4) mg/dL Total Bilirubin (0.00-1.00) mg/dL AST (15-37) U/L ALT (14-59) U/L Alkaline Phosphatase (46-116) U/L Total Creatine Kinase (26-192) U/L Troponin I (0.00-60.4) ng/L NT-Pro-B Natriuret Pep (0-125) pg/mL Total Protein (6.4-8.2) g/dL Albumin (3.4-5.0) g/dL Lipase (16-77) U/L TSH (0.36-3.74) uIU/mL Urine Color (Yellow) Urine Appearance (Clear) Urine pH (5.0-8.0) Ur Specific [place] (1.010-1.020) Urine Protein (Negative) Urine Glucose (UA) (Negative) Urine Ketones (Negative) Ur Blood (Man) (Negative) Urine Nitrate (Negative) Urine Bilirubin (Negative) Urine Urobilinogen (0.2-1.0) mg/dL Leukocyte Esterase Rfl (Negative) UDAY/UL Urine RBC (0-2) /hpf Urine WBC (0-3) /hpf Ur Squamous Epith Cells (Few) /hpf Urine Bacteria (None) /hpf Urine Yeast (Budding) (None) /hpf Ur Oval Fat Bodies (None) /lpf Urine Opiates Screen (Negative) Urine Methadone Screen (Negative) Ur Barbiturates Screen (Negative) Ur Phencyclidine Scrn (Negative) Ur Amphetamine Screen (Negative) U Benzodiazepines Scrn (Negative) Urine Cocaine Screen (Negative) U Cannabinoids Screen (Negative) Influenza A (RT-PCR) (Negative) Influenza B (RT-PCR) (Negative) RSV (RT-PCR) (Negative) SARS-CoV-2 RNA (RT-PCR) (Negative) ABG Data ABG results: 11/15/24 09:48 Puncture Site Left radial ABG pH 7.51 H ABG pCO2 31.4 L ABG pO2 56.2 L ABG HCO3 24.5 ABG O2 Saturation 90.1 L ABG Base Excess 2.1 H Oxyhemoglobin 88.7 L O2 Delivery Device Room air O2 Liters/Min 0.0 ECG Data EKG #1: ECG completion date: 11/15/24 ECG completion time: 09:23 Interpretation: Sinus tachycardia with heart rate of 113. Normal axis. No ST elevation. Discharge Plan Discharge Clinical Impression: Diabetic foot ulcer, UTI (urinary tract infection), Renal insufficiency, Altered mental status Patient Disposition: Still a Patient Condition: Stable Additional Instructions: transfer patient to [facility]. Patient Language: Pashto Prescriptions: No Action cyclobenzaprine 10 mg tablet 10 mg PO BID meloxicam 15 mg tablet 15 mg PO HS glipizide 10 mg tablet 10 mg PO BID gabapentin 300 mg capsule 300 mg PO TID Levemir FlexTouch U100 Insulin 100 unit/mL (3 mL) insulin pen 10 unit SUBCUT HS Follow-up/Referrals: UNKNOWN,DOCTOR [Primary Care Provider] - Time of Disposition: 13:15
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
--- OUTSIDE RECORDS SUMMARY | 2024-11-15 09:21 | XMS_ITS ---
Author Organization Unknown Address [address] [place] [phone] Phone Care Team Providers Care Crosstie Inspector Name Role Phone TAMRA HUTCHINS Attending Unavailable [...] Frankie Mccoy M.D. KT: URSULA Report ID: [id number] Reading Location: [id number] Social History Type Status Start Date End [...]
--- OUTSIDE RECORDS SUMMARY | 2024-11-15 09:21 | XMS_ITS | Encounter Summary ---
Author Organization [facility] Health Address [address] [place] [address] Care Team Providers Care Research Nurse Name Role Phone Unavailable Primary Care Provider Unavailabl e Encounter Details Date Type Department Care Team (Late st Contact Info) Description 12/10/2023 Ophth Exam [facility] - Ophthalmology [address] [place] [address] Ho Anthony MD [address] [facility] [place] [address] Social History Tobacco Use Types [...] medical care, and heating? Somewhat hard 12/11/2023 [facility] of Occupat ional Health - Occupational Stress [...] place to sleep or slept in a correction (including now)? No 12/11/2023 Sex and Gender [...]
--- OUTSIDE RECORDS SUMMARY | 2024-11-15 09:21 | XMS_ITS | Encounter Summary ---
Author Organization [facility] Healthcare Address [address] [place] [address] Care Team Providers Care Laboratory Cureman Name Role Phone No, Physician Primary Care Provider [phone] Encounter Details Date Type Department Care Team (Latest Contact Info) Description 11/13/2024 2:35 PM CDT - 11/13/2024 11:59 PM CDT Hospital Encounter [facility] [address] [place] [address] S/P cervical spinal fusion; Right hand weakness Discharge Disposition: Discharge to home or self care Social History Tobacco Use Types Packs/Day Years Used Date Smoking Tobacco: Former Cigarettes [facility] Utilities Answer Date Recorded In the past 12 months has [facility] electric, gas, oil, or water [employer] threatened to shut off services in your [...] often do you attend chur ch or episcopalian services? 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 04/08/2024 amoxicillin (AMOXIL) 875 mg tablet 10/13/2024 bacitracin 500 unit/gram ointment Apply 1 Application topically 3 (three) times a day 12/14/2023 blood glucose diagnostic (glucose blood) strip Use as directed up to four times a day. 04/08/2024 blood-glucose meter (OneTouch Ultra2 Meter) misc Inject 1 Units under the skin 2 (two) times a day 11/12/2023 blood-glucose meter kit Use as directed. 04/08/2024 cephalexin (KEFLEX) 500 mg capsule 08/26/2024 cyclobenzaprine (FLEXERIL) 10 mg tablet Take 1 tablet (10 mg total) by mouth 3 (three) times a day as needed for muscle spasms 02/12/2024 fluconazole (DIFLUCAN) 150 mg tablet 09/04/2024 glipiZIDE (GLUCOTROL) 10 mg tablet Take 1 [...] as needed for pain 15 tablet 04/18/2024 oxyCODONE-acetam inophen (PERCOCET) 7.5-325 mg per tablet 08/26/2024 pen needle, diabetic (Pen Needle) 31 gauge x 5/16 needle Use as directed once a day 04/08/2024 pen needle, diabetic 31 gauge x 5/16 needle Use as directed 3 times a day 04/08/2024 polyethylene glycol (MIRALAX) 17 gram packet Take 1 packet (17 g total) by mouth 2 (two) times a day 04/08/2024 senna-docusate (PERICOLACE) 8.6-50 mg Take 1 tablet by mouth 2 (two) times a day 04/08/2024 traMADoL (ULTRAM) 50 mg tablet 09/04/2024 documented as of this encounter Discharge Disposition [...] S/P cervical spinal fusion Right hand weakness documented in this encounter Results * XR Spine Cervical Complete 4 [...] fracture. Atherosclerotic vascular calcifications noted. Procedure Note Gpoal Marshall MD - 11/13/2024 EXAMINATION: XR SPINE [...] motion. Electronically signed by: Gopal Calderon M.D. Carol Monae AUT[employer]ATION CONTROLS EXPERT IMG XR PROCEDURES Final Result documented in this encounter Visit Diagnoses Diagnosis S/P cervical spinal fusion Arthrodesis status Right hand weakness Muscle weakness (generalized) documented in this encounter Care Teams Laboratory Cureman Relationship Specialty Start Date End Date No, Physician PCP - General 04/10/24 documented as of this encounter
--- OUTSIDE RECORDS SUMMARY | 2024-11-15 09:21 | XMS_ITS | Encounter Summary ---
Author Organization [facility] Health Address [address] [place] [address] Care Team Providers Care Ethics Manager Name Role Phone Unavailable Primary Care Provider Unavailabl e Encounter Details Date Type Department Care Team (Late st Contact Info) Description 12/11/2023 Ophth Exam [facility] - Op[facility]mology [address] [place] [phone] Miya Crooks MD [address] [place] [id number] Social History Tobacco Use Types Packs/Day Years [...] medical care, and heating? Somewhat hard 12/11/2023 [facility] [place] of Occupat ional Health - Occupational Stress [...] slept in a penitentiary (including now)? No 12/11/2023 Sex and Gender [...]
--- OUTSIDE RECORDS SUMMARY | 2024-11-15 09:21 | XMS_ITS | Clinical Summary ---
Author Organization [facility] Address [address] [place] [address] Care Team Providers Care Credit Collections Rep Name Role Phone Unavailable Primary Care Provider Unavailabl e Source Comments [facility],non-owned Affiliates and Associated Physician Practices is amultiple site organization consisting of ambulatory clinics and hospital sitesin [place], [place], [place] and [place]. This disclosure is being madepursuant to the Care Everywhere program and may not contain all information available regarding this patient. Last updated 18.[facility] Carmine Allergies Active Allergy Reactions Criticality Noted Date [...] medical care, and heating? Somewhat hard 12/17/2023 [facility] [place] of Occupat ional Health - Occupational Stress [...] 92 12/18/2023 11:37 AM CDT Temperature 36.6 C (97.8 F) 12/18/2023 7:53 AM CDT Respiratory Rate 17 12/17/2023 4:07 PM CDT [...] TESTING 1967 MAMMOGRAM 1967 PAP SMEAR 1967 HIV SCREENING 1982 HEPATITIS C SCREENING 02/26/1985 HEPATITIS B VACCINE (1 of 3 - 19+ 3-dose series) 1986 PNEUMOCOCCAL VACCINE 50+ (1 of 2 - PCV) 1986 ZOSTER VACCINE (1 of 2) 2017 COVID-19 VACCINE (4 - season) 2024 08/17/2022, 04/07/2022, 03/14/2022 INFLUENZA VACCINE (#1) 2024 3, 07/24/2017, 05/25/2016 DEPRESSION SCREENING 08/13/2024 MEDICARE AW CALENDAR YEAR 2024 SCREENING FOR DIABETES 12/17/2026 4, 12/18/2023, 12/18/2023, Additional history exists DTAP/TDAP/TD VACCINES (2 - Td or Tdap) 12/09/2033 12/10/2023 HIB VACCINE Aged Out No longer eligi ble based on patient's age to complete this topic HPV VACCINE Aged Out No longer eligi ble based on patient's age to complete this topic MENINGOCOCCAL (Group B) VACCINE SHARED DECISION-MAKING Aged Out No longer eligible based on patient's age to complete this topic MENINGOCOCCAL GROUPS A/C/Y/W VACCINE Aged Out No longer eligible based on patient's age to complete this topic Procedures Procedure Name Priority Date/Time Associated Diagnosis Comments GLUCOSE - POINT OF CARE Routine 12/18/2023 12:10 AM CDT from Last 3 Months or Most Recently Relevant to Health Maintenance Results * (ABNORMAL) GLUCOSE - POINT OF CARE (12/18/2023 12:10 AM CDT) Glucose WB/POC 328(H) 70 - 115 mg/dL 12/18/2023 12:11 AM CDT [facility] Specimen Type Cap Fingerstick 2023 12:11 AM CDT [facility] Blood BLOOD SPECIMEN / Unknown 12/18/2023 12:10 AM CDT 12/18/2023 12:11 AM CDT Ho Parada MD LAB - POINT OF CARE ORDERABLES [facility] [address] [place] [address], [facility] [phone] from Last 3 Months or Most Recently [...]
--- OUTSIDE RECORDS SUMMARY | 2024-11-15 09:21 | XMS_ITS | Clinical Summary ---
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 Gender Identity Not on file Sexual Orientation Not on file Last Filed Vital Signs Vital Sign Reading Time Taken Comments Blood Pressure 137/91 01/14/2024 9:25 AM CDT Pulse 85 01/14/2024 9:25 AM CDT Temperature 36.6 C (97.8 F) 01/14/2024 9:25 AM CDT Respiratory Rate 16 01/14/2024 9:25 AM CDT Oxygen Saturation 99% 01/14/2024 9:25 AM CDT Inhaled Oxygen Concentration - - Weight 85.7 kg (188 lb 15 oz) 01/14/2024 8:00 AM CDT Height 175.3 cm (5' 9 ) 01/14/2024 8:00 AM CDT Body Mass Index 27.9 01/14/2024 8:00 AM CDT Plan of Treatment Upcoming Encounters Date Type Department Care Team (Late st Contact Info) Description 11/17/2024 12:45 PM CDT Appointment [facility] [place] [address] Staci Floyd, RICHI [address] [facility] [address] [place] [address] Health Maintenance Due Date Last Done Comments [...] Vaccines (1 of 2) 2017 COVID-19 Vaccine (2023-2 5 season) 2024 08/17/2022, 04/07/2022, 03/14/2022 DTaP, Tdap and Td Vaccines ( 2 - Td or Tdap) 12/09/2033 12/10/2023 Meningococcal B Vaccine Aged Out No l onger eligible based on patient's age to complete this topic Meningococcal Vaccine Aged Out No mayela reymundo [...] Last Indicated MRSA 07/06/2017 07/06/[address] [place] [address] [place] [address] Care Teams Center Line Cutter Operator Relationship Specialty Start Date End Date Nayana Garber PA [address] [place] [address] PCP - General PHYSICIAN [facility]AP[facility]IN BAND WRAPPER 12/07/23
--- OUTSIDE RECORDS SUMMARY | 2024-11-15 09:21 | XMS_ITS | Referral Summary ---
Author Organization [facility] Address [address] [place] [address] Care Team Providers Care Industrial Servicer Name Role Phone No, Physician Primary Care Provider [phone] Encounters Date Type Department Care Team Description 11/13/2024 2:35 PM CDT - 11/13/2024 11:59 PM CDT Hospital Encounter [facility] [address] [place] [address] S/P cervical spinal fusion; Right hand weakness Discharge Disposition: Discharge to home or self care 11/13/2024 2:45 PM CDT Office Visit [facility] Neurosurgery [address] [place] [address] Advanced Medicine 6th [place] [address] [place] [id number] Carol Monae NP S/P cervical spinal fusion (Primary Dx) 11/05/2024 Telephone [facility] Scheduling [address] [place] [address] Carol Monae NP 08/18/2024 Orders Only [facility] Neurosurgery [address] [facility] [address] [place] [address] Carol Monae NP S/P cervical [...] by mouth 2 (two) times a day Active Additional Information Patient not taking.Reported on [...] Lispro increased 16u TID per Endocrine - Green Meat Packer consulted - Rn Hemo Dialysis consulted for further education on food/snack choices [...] no regular soda Discharge Planning Use A [facility] END Diabetes Discharge Order Set - Lantus 25 [...] Lispro increased 16u TID per Endocrine - Green Meat Packer consulted - Rn Hemo Dialysis consulted for further education on food/snack choices [...] MAP > 90 augmentation per nsgy - WINDSHIELD WIPER REPAIRER/TLSO brace, Montgomery J until custom WINDSHIELD WIPER REPAIRER/TLSO complete - Normotensive MAP goals, - Strict [...] has been staffed with Dr. Tapia. Custom WINDSHIELD WIPER REPAIRER/TLSO Follow Up Clinic in 4-6 weeks with [...] MAP > 90 augmentation per nsgy - WINDSHIELD WIPER REPAIRER/TLSO brace, Montgomery J until custom WINDSHIELD WIPER REPAIRER/TLSO complete - Normotensive MAP goals, - Strict [...] has been staffed with Dr. Tapia. Custom WINDSHIELD WIPER REPAIRER/TLSO Follow Up Clinic in 4-6 weeks with [...] MAP > 90 augmentation per nsgy - WINDSHIELD WIPER REPAIRER/TLSO brace, Montgomery J until custom WINDSHIELD WIPER REPAIRER/TLSO complete - Normotensive MAP goals, - Strict [...] MAP > 90 augmentation per nsgy - WINDSHIELD WIPER REPAIRER/TLSO brace, Montgomery J until custom WINDSHIELD WIPER REPAIRER/TLSO complete - Normotensive MAP goals, - Strict [...] initial encounter for closed fracture 12/10/2023 Immunizations Immunization Administration Dates Next Due Influenza, Quadrivalent, Split, Intramuscular Influenza, Quadrivalent, Spl it, Preservative Free, Intramuscular 08/17/2022,05/25/2016 Tdap 12/10/2023 Social History Tobacco Use Types Packs/Day Years Used Date Smoking Tobacco: Former Cigarettes Tobacco Cessation:Counseling Given: No [facility] Utilities Answer Date Recorded In the past 12 months has th e [employer], [employer], oil, or water [employer] threatened to shut off services in your [...] often do you attend chur ch or methodist services? Patient unable to answer 04/10/2024 Do you belong to any clubs o r organizations such as adventism groups, unions, fraternal or athletic groups, or [...] were you homeless or living in a jail (including now)? Patient unable to answer 03/12/2024 Personal Safety Answer Date Recorded Have you ever been in or are you currently in a harmful physical or emotional relationship or is someone making you feel afraid or unsafe? 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 Gender Identity Not on file Sexual [...] on file Medical Devices Implanted Type Area Reconsignment Clerk Device Identifier Shelf Expiration Date Model / Serial / Lot Allosource Canpac Allograft Frozen Nonpurge Graft 10cc Bone Cancellous [id number] - [id number] Implanted:Qty: 1 on 03/13/2024 by Marcio Tapia MD at [facility] Bone N/A: Cervical- Thoracic Spine Allosource 02/04/2029 [id number] / / [id number] Allosource Canpac Allograft Frozen Nonpurge Graft 10cc Bone Cancellous [id number] - [id number] Implanted:Qty: 1 on 03/13/2024 by Marcio Tapia MD at [facility] Bone N/A: Cervical- Thoracic Spine Allosource 01/31/2029 [id number] / / [id number] Allosource Canpac Allograft Frozen Nonpurge Graft 10cc Bone Cancellous [id number] - [id number] Implanted:Qty: 1 on 03/13/2024 by Marcio Tapia MD at [facility] Bone N/A: Cervical- Thoracic Spine Allosource 01/18/2029 [id number] / / [id number] Nuvasive Inc Wayne Spinal Posterior Cervical Prebent Reline [id number] Titanium [id number] - [id number] Implanted:Qty: 1 on 03/13/2024 by Marcio Tapia MD at [facility] N/A: Cervical- Thoracic Spine [employer] [id number] / / [employer] Wayne Spine Reline C Ti Straight [id number] - [id number] Implanted:Qty: 1 on 03/13/2024 by Marcio Tapia MD at [facility] N/A: Cervical- Thoracic Spine [employer]uv[employer] Inc [id number] / / Medtronic Inc Kit Graft Bone Sponge Xlg Infuse 8cc Granules [id number] - [id number] Implanted:Qty: 1 on 03/13/2024 by Marcio Tapia MD at [facility] N/A: Cervical- Thoracic Spine Medtronic Inc 02/10/2025 [id number] / / [id number] [employer] Graft Bone Magnetos 10cc 1-2mm Granules In Moldable Putty [id number] - [id number] Implanted:Qty: 1 on 03/13/2024 by Marcio Tapia MD at [facility] N/A: Cervical- Thoracic Spine [employer] [id number] 01/12/2028 [id number] / / [id number] Nuvasive Inc Screw Spine Reline C Lock Open Non-Sterile Latex Free [id number] - [id number] Implanted:Qty: 14 on 03/13/2024 by Marcio Tapia MD at [facility] N/A: Cervical- Thoracic Spine [employer]uv[employer] Inc [id number] / / Nuv[employer] Inc Screw Spine Reline C Ma 3.5x16mm Non-Sterile Latex Free [id number] - [id number] Implanted:Qty: 8 on 03/13/2024 by Marcio Tapia MD at [facility] N/A: Cervical- Thoracic Spine [employer]uv[employer] Inc [id number] / / Nuv[employer] Inc Reline C Screw 5.5x35mm Reduction Thor [id number] - [id number] Implanted:Qty: 4 on 03/13/2024 by Marcio Tapia MD at [facility] N/A: Cervical- Thoracic Spine [employer] Inc [id number] / / Nuv[employer] Inc Reline C Screw 3.5x28mm Reduction Fa [id number] - [id number] Implanted:Qty: 2 on 03/13/2024 by Marcio Tapia MD at [facility] N/A: Cervical- Thoracic Spine [employer] Inc [id number] / / Procedures Procedure Name Priority Date/Time [...] signed by: Gopal Calderon M.D. Carol Monae DRILLER PORTABLE IMG XR PROCEDURES Final Result * eGFR [...] ORDERABLE S Final Result Performing Organization Address City/[facility] Co de Phone Number [facility] [address] [facility] Department [place] [address] * (ABNORMAL) Hemoglobin A1c (03/11/2024 8:59 PM CDT) Hgb A1C 8.9(H) 4.0 - 5.6 % Estimated Average Glucose 209 mg/dL [facility] Comment: The ADA recommends reporting an estimated [...] Result Performing Organization Address City/[facility] Co de Phone Number [facility] Department [place] [address] * Hepatitis panel, acute Blood (03/09/2024 7:59 PM CDT) Hep A IgM Nonreactive Nonreactive Hep B core IgM Nonreactive Nonreactive [facility] Hep C Ab Nonreactive Nonreactive [facility] Comment:Antibodies to HCV no t detected. Does NOT exclude the possibility of recent exposure to HCV. Current interpretive data was last revised on 22 HepBsAg Nonreactive Nonreactive [facility] Blood 03/09/2024 7:59 PM CDT 03/09/2024 8:07 PM CDT Chadd Toledo DO LAB MICROBIOLOGY - GE NERAL ORDERABLES Final Result [facility] Department [place] [address] from Last 3 Months or Most Recently Relevant to Health Maintenance Insurance [id number] MEDICARE ADVANTAGE [id number] MEDICARE ADVANTAGE Advance Directives For more information, please contact: [phone] * Full Code (Latest Code Status on File) Date Activated Date Inactivated Comments 04/16/2024 7:23 AM 04/18/2024 8:03 PM * Full Code Date Activated Date Inactivated Comments 03/09/2024 6:10 AM 04/08/2024 7:32 PM Care Teams Industrial Servicer Relationship Specialty Start Date End Date No, Physician PCP - General 04/10/24
--- OUTSIDE RECORDS SUMMARY | 2024-11-15 09:22 | XMS_ITS | Clinical Summary ---
Author Organization [facility] Address [address] [place] [address] Phone Care Team Providers Care Vice President Payment Name Role Phone Nayana Garber [facility] Primary Care Provider + Allergies No known active allergies Medications meloxicam (MOBIC) 15 MG Tablet Take 15 mg by mouth daily. Active omeprazole (PriLOSEC) 40 MG CAPSULE DELAYED RELEASE Take 1 Capsule by mouth daily. 4 Active pregabalin (LYRICA) 150 MG Capsule Take 150 mg by mouth 2 times daily. 4 Active methocarbamol (ROBAXIN) 500 MG Tablet Take 1,000 mg by mouth 4 times daily. Active insulin glargine (LANTUS) 100 UNIT/ML Solution 12 Units by Subcutaneous route nightly. Active glipiZIDE (GLUCOTROL) 10 MG Tablet Take 10 mg by mouth 2 times daily. Active oxyCODONE-acet aminophen (PERCOCET) 7.5-325 MG TabletIndicati ons:Foot infection [The details of the medication are not available because there are pending changes by a home health clinician.] 30 Tablet 5 Active Additional Information Patient not taking.Reason: Other (therapy completed), Informant: Self, Reported on 10/28/2024 acetaminophen (TYLENOL) 500 MG Tablet Take 1,000 mg by mouth every 6 hours as needed for Mild or more severe pain. 5 Active fluconazole (DIFLUCAN) 150 MG Tablet Take 150 mg by mouth once. if symptoms due not resolve in 3 days, may take another tablet 025 Discontin ued(Thera py completed ) traMADol (ULTRAM) 50 MG Tablet Take 50 mg by mouth 2 times daily as needed for Mild or more severe pain or Moderate or more severe pain. 025 Discontin ued(Camilo py completed ) Active Problems Problem Noted Date Diagnosed Date Sepsis 08/19/2024 Foot infection 08/19/2024 Type 2 diabetes mellitus 08/19/2024 Substance abuse 08/19/2024 Encounters Date Type Department Care Team Description 11/12/2024 11:00 AM CDT Home Care Visit [address] [address] Perlita Wilson LPN SN - WOUND VISIT 11/05/2024 10:00 AM CDT Home Care Visit [address] [address] Perlita Wilson LPN SN - WOUND VISIT 10/29/2024 Plan of Care Documentation [address] [address] 10/28/2024 10:00 AM CDT Home Care Visit [address] [address] Serena Zaman RN SN - OASIS RECERTIFICATION 10/24/2024 1:00 PM CDT Home Care Visit [address] [address] Serena Zaman, JULISSA SN - WOUND VISIT 10/07/2024 10:00 AM FRANCHISE BROKER Home Care Visit [address] [address] Sheyla Mckeon RN SN - WOUND VISIT 10/01/2024 Home Care Visit [address] [address] Napoleon Weinstein, RN TELEPHONE ENCOUNTER 09/30/2024 10:30 AM FRANCHISE BROKER Home Care Visit [address] [address] Napoleon Weinstein, RN SN - WOUND VISIT 09/26/2024 2:30 PM FRANCHISE BROKER Home Care Visit [address] [address] Napoleon Weinstein, RN SN - WOUND VISIT 09/26/2024 12:30 PM FRANCHISE BROKER Home Care Visit [address] [address] Bree Raman OTA OT - DISCIPLINE DISCHARGE 09/26/2024 Home Care Visit [address] [address] Tanya Meléndez OT OT - DISCHARGE SUMMARY 09/26/2024 Home Care Visit [address] [address] Bree Raman OTA CASE COMMUNICATION 09/26/2024 Travel 09/22/2024 2:30 PM FRANCHISE BROKER Home Care Visit [address] [address] Napoleon Weinstein, RN SN - WOUND VISIT 09/22/2024 1:30 PM FRANCHISE BROKER Home Care Visit [address] [address] June Abreu, PT PT - DISCIPLINE DISCHARGE 09/19/2024 1:30 PM FRANCHISE BROKER Home Care Visit [address] [address] Maritza Mena, MICROGRINDER OPERATOR PT - HOME VISIT 09/19/2024 9:30 AM FRANCHISE BROKER Home Care Visit [address] [address] Bree Raman OTA OT - HOME VISIT 09/16/2024 1:30 PM FRANCHISE BROKER Home Care Visit [address] [address] Perlita Wilson LPN SN - WOUND VISIT 09/16/2024 12:30 PM FRANCHISE BROKER Home Care Visit [address] [address] Bree Raman OTA RESCHEDULED MISSED VISIT 09/16/2024 Home Care [place] [address] [place] [address] Frida Spence, MICROGRINDER OPERATOR TELEPHONE ENCOUNTER 09/16/2024 Home Care Visit [address] [address] Napoleon Weinstein, RN TELEPHONE ENCOUNTER 09/16/2024 Home Care Visit [address] [address] Napoleon Weinstein, RN TELEPHONE ENCOUNTER 09/16/2024 Home Care Visit [address] [address] Napoleon Weinstein, RN TELEPHONE ENCOUNTER 09/15/2024 2:30 PM FRANCHISE BROKER Home Care Visit [address] [address] Frida Spence, MICROGRINDER OPERATOR RESCHEDULED MISSED VISIT 09/15/2024 Home Care Visit [address] [address] Napoleon Weinstein, RN TELEPHONE ENCOUNTER 09/15/2024 Travel 09/12/2024 2:45 PM FRANCHISE BROKER Home Care Visit [address] [address] Tanya Meléndez, OT OT - NIELSEN SUPERVISORY VISIT 09/12/2024 Home Care Visit [address] [address] Napoleon Weinstein, RN TELEPHONE ENCOUNTER 09/11/2024 4:30 PM FRANCHISE BROKER Home Care Visit [address] [address] Napoleon Weinstein, RN SN - WOUND VISIT 09/11/2024 2:00 PM FRANCHISE BROKER Home Care Visit [address] [address] Frida Spence, MICROGRINDER OPERATOR PT - HOME VISIT 09/11/2024 Travel 09/10/2024 9:30 AM FRANCHISE BROKER Home Care Visit [address] [address] Bree Raman, WIND TECHNICIAN OT - HOME VISIT 09/10/2024 Home Care Visit [address] [address] Frida Spence, MICROGRINDER OPERATOR TELEPHONE ENCOUNTER 09/10/2024 Home Care Visit [address] [address] Napoleon Weinstein, RN TELEPHONE ENCOUNTER 09/09/2024 12:30 PM FRANCHISE BROKER Home Care Visit [address] [address] Frida Spence, MICROGRINDER OPERATOR PT - HOME VISIT 09/09/2024 Travel 09/09/2024 [place] [place] [id number] [facility] [place] [address] Nikole Ca RN 09/08/2024 2:00 PM FRANCHISE BROKER Home Care Visit [address] [address] Napoleon Weinstein, RN SN - WOUND VISIT 09/06/[address] [address] Sabrina Concepcion RN follow up 09/05/2024 11:00 AM FRANCHISE BROKER Home Care Visit [address] [address] Bree Raman, WIND TECHNICIAN OT - HOME VISIT 09/05/[address] [address] Kasey Camacho RN Follow-up 09/05/2024 Home Care Visit [address] [address] Mita Bullard RN SN - WOUND/OSTOMY CONSULTATION 09/05/2024 Home Care Visit [address] [address] Bree Raman, MILAD CASE COMMUNICATION 09/05/2024 Home Care [place] [address] [place] [address] Napoleon Weinstein, RN TELEPHONE ENCOUNTER 09/04/2024 1:00 AM FRANCHISE BROKER Home Care Visit [address] [address] Napoleon Weinstein, RN SN - WOUND VISIT 09/03/2024 12:30 PM FRANCHISE BROKER Home Care Visit [address] [address] Maritza Mena, MICROGRINDER OPERATOR PT - HOME VISIT 09/03/2024 Home Care Visit [address] [address] Ruba Ware, CRNA TELEPHONE ENCOUNTER 09/03/2024 Home Care Visit [address] [address] June Abreu, PT TELEPHONE ENCOUNTER 09/03/2024 Home Care Visit [address] [address] June Abreu, PT TELEPHONE ENCOUNTER 09/02/2024 11:45 AM FRANCHISE BROKER Home Care Visit [address] [address] Tanya Meléndez OT OT - INITIAL EVALUATION 09/01/2024 11:30 AM FRANCHISE BROKER Home Care Visit [address] [address] Napoleon Weinstein, RN SN - WOUND VISIT 09/01/2024 10:00 AM FRANCHISE BROKER Home Care Visit [address] [address] June Abreu, PT PT - INITIAL EVALUATION 08/30/2024 1:00 PM FRANCHISE BROKER Home Care Visit [address] [address] Sheyla Mckeon, RN SN - OASIS START OF CARE 08/30/2024 Plan of Care Documentation [address] [address] 08/30/2024 Telephone [facility] [address] [place] [address] Roshan De, RN Appointment 08/28/2024 [facility] [address] [place] [address] Carol Bowers, RN TELEPHONE ENCOUNTER 08/19/2024 12:37 PM FRANCHISE BROKER Anesthesia Event [address] [address] Reuben Tripp MD Mitchell, Christopher Dane, APRN, COKE LOADER 08/19/2024 11:45 AM FRANCHISE BROKER - 08/19/2024 12:45 PM FRANCHISE BROKER Surgery [address] [address] Eddie Raymond MD Irrigation and debridement left foot 08/16/2024 7:23 PM FRANCHISE BROKER - 08/26/2024 5:00 PM FRANCHISE BROKER [facility] [address] [place] [phone] Verenice Thibodeaux MD Vallumsetla, Nishanth, MD Hajal, Rizan, MD Elangwe, Patrick, MD Sundaram, [place], MD Karkatzounis, Ioannis, MD Kadia, Yannick Atehleme, MD Sepsis (HCC) Discharge Disposition: Home Health Care Svc from Last 3 Months Social History Tobacco Use Types Packs/Day Years Used Date Smoking Tobacco: Never Assessed [facility] Utilities Answer Date Recorded In the past 12 months has [employer], gas, oil, or water Runner threatened to shut off services in your home? No 08/16/2024 Social Connection and Isolat ion Panel [NHANES] Answer Date Recorded In a typical week, how many times do you talk on the phone with family, friends, or neighbors? More than three times a week 08/16/2024 How often do you get togethe r with friends or relatives? More than three times a week 08/16/2024 How often do you attend [facility] or [facility] services? 1 to 4 times per year 08/16/2024 Do you belong to any clubs o r organizations such as latter day groups, unions, fraternal or athletic groups, or school groups? No 08/16/2024 How often do you attend meet ings of the clubs or organizations you belong to? 1 to 4 times per year 08/16/2024 Are you , , di vorced, , never , or living with a partner? 08/16/2024 AUDIT-C Answer Date Recorded Q1: How often do you have a drink containing alcohol? Never 08/16/2024 Q2: How many drinks containi ng alcohol do you have on a typical day when you are drinking? Patient does not drink Q3: How often do you have si x or more drinks on one occasion? Never 08/16/2024 Overall Financial Resource Strain (CARDIA) Answe r Date Recorded How hard is it for you to pa y for the very basics like food, housing, medical care, and heating? Not hard at all 08/16/2024 [facility] - Occupational Stress Questionnaire Answer Date Recorded Do you feel stress - tense, restless, nervous, or anxious, or unable to sleep at night because your mind is troubled all the time - these days? Very much 08/16/2024 Exercise Vital Sign Answer Date Recorde d On average, how many days pe r week do you engage in moderate to strenuous exercise (like a brisk walk)? 0 days 08/16/2024 On average, how many minutes do you engage in exercise at this level? 0 min 08/16/2024 Hunger Vital Sign Answer Date Recorded Within the past 12 months, y ou worried that your food would run out before you got the money to buy more. Never true 08/16/19 25 Within the past 12 months, t he food you bought just didn't last and you didn't have money to get more. Never true 08/16/2024 PRAPARE - Transportation Answer Date Re corded In the past 12 months, has l ack of transportation kept you from medical appointments or from getting medications? No 11/2024 In the past 12 months, has l ack of transportation kept you from meetings, work, or from getting things needed for daily living? No 08/16/2024 Housing Stability Vital Sign Answer Compa e Recorded In the last 12 months, was t here a time when you were not able to pay the mortgage or rent on time? No 08/16/2024 In the past 12 months, how m any times have you moved where you were living? 0 08/16/2024 At any time in the past 12 m [facility], were you homeless or living in a retirement (including now)? No 08/16/2024 Comments Unknown Sex and Gender Information Value Date Recorded Sex Assigned at Not on file Legal Sex Female 11:42 AM CDT Gender Identity Not on file Sexual Orientation Not on file Last Filed Vital Signs Vital Sign Reading Time Taken Comments Blood Pressure 140/68 11/12/2024 11:32 AM CDT Pulse 99 11/12/2024 11:32 AM CDT Temperature 36.4 C (97.5 F) 11/12/2024 11:32 AM CDT Respiratory Rate 16 11/12/2024 11:32 AM CDT Oxygen Saturation 96% 11/12/2024 11:32 AM CDT Inhaled Oxygen Concentration - - Weight 95.3 kg (210 lb) 09/02/2024 12:33 PM FRANCHISE BROKER Height 180.3 cm (5' 11 ) 09/02/2024 12:33 PM FRANCHISE BROKER Body Mass Index 29.29 09/02/2024 12:33 PM FRANCHISE BROKER Plan of Treatment Upcoming Encounters Date Type Department Care Team (Late st Contact Info) Description 11/19/2024 1:00 AM CDT Home Care Visit [address] [address] Serena Zaman RN IN 11/26/2024 1:00 AM CDT Home Care Visit [address] [address] Serena Zaman RN IN 12/03/2024 1:00 AM CDT Home Care Visit [address] [address] Serena Zaman RN [place] 12/10/2024 1:00 AM CDT Home Care Visit [address] [address] Serena Zaman RN IN 12/17/2024 1:00 AM CDT Home Care Visit [facility] [address] [place] [address] Serena Zaman RN IN 12/24/2024 1:00 AM CDT Appointment [facility] [address] [place] [address] Serena Zaman RN IN Health Maintenance Due Date Last Done Comments Diabetes: Eye Exam 1967 Diabetes: Foot Exam 1967 Hepatitis C Virus (HCV) Screening 1967 Mammogram 1967 Hepatitis B Immunization (1 of 3 - 19+ 3-dose series) 1986 Pap Smear 1988 Cervical Cancer Screening (CCS) 1997 HPV/Cotest 1997 Colonoscopy 2012 Colorectal Cancer Screening 2012 Cologuard 2017 Immunochemical Fecal Occult Blood 2017 Zoster Immunization (1 of 2) 2017 SARS-COV-2 Immunization ( season) 2024 08/17/2022, 04/07/2022, 03/14/2022 Diabetes: Hemoglobin A1c 02/13/2025 025, 03/11/2024, 01/20/2024 Diabetes: Nephropathy Screening 08/26/2025 08/26/2024, 08/21/2024, 08/20/2024, Additional history exists Respiratory Syncytial Virus (RSV) Immunization (Adult) (1 - 1-dose 75+ series) 2042 TdaP Immunization Completed 12/10/2023 Influenza Immunization Completed , 08/17/2022, 07/24/2017, Additional history exists Pneumococcal Immunization (50+ years) Completed 07/30/2024 Meningococcal Immunization (ACWY) Aged Out No longer eligible based on patient's age to complete this topic Rotavirus Immunization Aged Out No lo nger eligible based on patient's age to complete this topic Procedures Procedure Name Priority Date/Time Associated Diagnosis Comments POCT GLUCOSE Routine 08/26/2024 5:18 PM FRANCHISE BROKER POCT GLUCOSE Routine 08/26/2024 12:15 PM FRANCHISE BROKER POCT GLUCOSE Routine 08/26/2024 7:44 AM FRANCHISE BROKER CBC WITH AUTO DIFFERENTIAL Routine 08/26/2024 5:34 AM FRANCHISE BROKER CMP (COMPREHENSIVE METABOLIC PANEL) Routine 08/26/2024 5:34 AM FRANCHISE BROKER COMPLETE BLOOD COUNT (CBC) WITH DIFF Routine 08/26/2024 5:34 AM FRANCHISE BROKER POCT GLUCOSE Routine 08/25/2024 9:10 PM FRANCHISE BROKER POCT GLUCOSE Routine 08/25/2024 4:41 PM FRANCHISE BROKER POCT GLUCOSE Routine 08/25/2024 11:42 AM FRANCHISE BROKER POCT GLUCOSE Routine 08/25/2024 7:01 AM FRANCHISE BROKER CBC WITH AUTO DIFFERENTIAL Routine 08/25/2024 6:00 AM FRANCHISE BROKER BASIC METABOLIC PANEL W/ CALCIUM TOTAL Routine 08/25/2024 6:00 AM FRANCHISE BROKER COMPLETE BLOOD COUNT (CBC) WITH DIFF Routine 08/25/2024 6:00 AM FRANCHISE BROKER POCT GLUCOSE Routine 08/24/2024 9:13 PM FRANCHISE BROKER POCT GLUCOSE Routine 08/24/2024 5:43 PM FRANCHISE BROKER POCT GLUCOSE Routine 08/24/2024 12:33 PM FRANCHISE BROKER US LEFT DUPLEX LOWER EXTREMITY VEINS Stat with Interpretation 08/24/2024 11:23 AM FRANCHISE BROKER POCT GLUCOSE Routine 08/24/2024 7:41 AM FRANCHISE BROKER CBC WITH AUTO DIFFERENTIAL Routine 08/24/2024 4:58 AM FRANCHISE BROKER BASIC METABOLIC PANEL W/ CALCIUM TOTAL STAT 08/24/2024 4:58 AM FRANCHISE BROKER COMPLETE BLOOD COUNT (CBC) WITH DIFF Routine 08/24/2024 4:58 AM FRANCHISE BROKER POCT GLUCOSE Routine 08/23/2024 8:27 PM FRANCHISE BROKER POCT GLUCOSE Routine 08/23/2024 5:45 PM FRANCHISE BROKER POCT GLUCOSE Routine 08/23/2024 10:43 AM FRANCHISE BROKER POCT GLUCOSE Routine 08/23/2024 7:59 AM FRANCHISE BROKER CBC WITH AUTO DIFFERENTIAL Routine 08/23/2024 5:01 AM FRANCHISE BROKER BASIC METABOLIC PANEL W/ CALCIUM TOTAL STAT 08/23/2024 5:01 AM FRANCHISE BROKER COMPLETE BLOOD COUNT (CBC) WITH DIFF Routine 08/23/2024 5:01 AM FRANCHISE BROKER POCT GLUCOSE Routine 08/22/2024 9:07 PM FRANCHISE BROKER POCT GLUCOSE Routine 08/22/2024 5:18 PM FRANCHISE BROKER POCT GLUCOSE Routine 08/22/2024 11:48 AM FRANCHISE BROKER POCT GLUCOSE Routine 08/22/2024 8:28 AM FRANCHISE BROKER CBC WITH AUTO DIFFERENTIAL Routine 08/22/2024 4:36 AM FRANCHISE BROKER VANCOMYCIN Timed 08/22/2024 4:36 AM FRANCHISE BROKER BASIC METABOLIC PANEL W/ CALCIUM TOTAL STAT 08/22/2024 4:36 AM FRANCHISE BROKER COMPLETE BLOOD COUNT (CBC) WITH DIFF Routine 08/22/2024 4:36 AM FRANCHISE BROKER PULMONARY TEST 08/22/2024 12:00 AM FRANCHISE BROKER POCT GLUCOSE Routine 08/21/2024 8:52 PM FRANCHISE BROKER POCT GLUCOSE Routine 08/21/2024 5:19 PM FRANCHISE BROKER POCT GLUCOSE Routine 08/21/2024 12:20 PM FRANCHISE BROKER POCT GLUCOSE Routine 08/21/2024 7:46 AM FRANCHISE BROKER CBC WITH AUTO DIFFERENTIAL Routine 08/21/2024 4:21 AM FRANCHISE BROKER CMP (COMPREHENSIVE METABOLIC PANEL) Routine 08/21/2024 4:21 AM FRANCHISE BROKER COMPLETE BLOOD COUNT (CBC) WITH DIFF Routine 08/21/2024 4:21 AM FRANCHISE BROKER POCT GLUCOSE Routine 08/20/2024 9:05 PM FRANCHISE BROKER POCT GLUCOSE Routine 08/20/2024 7:39 PM FRANCHISE BROKER POCT GLUCOSE Routine 08/20/2024 1:35 PM FRANCHISE BROKER POCT GLUCOSE Routine 08/20/2024 9:39 AM FRANCHISE BROKER CBC WITH AUTO DIFFERENTIAL Routine 08/20/2024 4:17 AM FRANCHISE BROKER PHOSPHORUS (PO4) Routine 08/20/2024 4:17 AM FRANCHISE BROKER CMP (COMPREHENSIVE METABOLIC PANEL) Routine 08/20/2024 4:17 AM FRANCHISE BROKER COMPLETE BLOOD COUNT (CBC) WITH DIFF Routine 08/20/2024 4:17 AM FRANCHISE BROKER POCT GLUCOSE Routine 08/19/2024 9:34 PM FRANCHISE BROKER POCT GLUCOSE Routine 08/19/2024 5:29 PM FRANCHISE BROKER POCT GLUCOSE Routine 08/19/2024 1:34 PM FRANCHISE BROKER CULTURE, AEROBIC ONLY Routine 08/19/2024 1:30 PM FRANCHISE BROKER CULTURE, ANAEROBIC Routine 08/19/2024 1: 30 PM FRANCHISE BROKER CULTURE, ANAEROBIC WITH CULTURE, AEROBIC Routine 08/19/2024 1:30 PM FRANCHISE BROKER SMEAR, GRAM STAIN Routine 08/19/2024 1:3 0 PM FRANCHISE BROKER CULTURE, AEROBIC ONLY Routine 08/19/2024 1:01 PM FRANCHISE BROKER CULTURE, ANAEROBIC Routine 08/19/2024 1: 01 PM FRANCHISE BROKER CULTURE, ANAEROBIC WITH CULTURE, AEROBIC Routine 08/19/2024 1:01 PM FRANCHISE BROKER SMEAR, GRAM STAIN Routine 08/19/2024 1:0 1 PM FRANCHISE BROKER IRRIGATION & DEBRIDEMENT LOWER EXTREMITY 08/19/2024 12:37 PM FRANCHISE BROKER ULCER, LEFT FOOT US ANKLE/BRACHIAL INDICES Routine 08/19/2024 11:03 AM FRANCHISE BROKER POCT GLUCOSE Routine 08/19/2024 8:45 AM FRANCHISE BROKER CBC WITH AUTO DIFFERENTIAL Routine 08/19/2024 5:21 AM FRANCHISE BROKER CMP (COMPREHENSIVE METABOLIC PANEL) Routine 08/19/2024 5:21 AM FRANCHISE BROKER MAGNESIUM (MG) STAT 08/19/2024 5:21 AM FRANCHISE BROKER PHOSPHORUS (PO4) STAT 08/19/2024 5:21 AM FRANCHISE BROKER VANCOMYCIN Timed 08/19/2024 5:21 AM FRANCHISE BROKER COMPLETE BLOOD COUNT (CBC) WITH DIFF Routine 08/19/2024 5:21 AM FRANCHISE BROKER POCT GLUCOSE Routine 08/18/2024 5:06 PM FRANCHISE BROKER PROCALCITONIN STAT 08/18/2024 4:23 PM FRANCHISE BROKER POCT GLUCOSE Routine 08/18/2024 1:08 PM FRANCHISE BROKER XR HUMERUS RIGHT Routine 08/18/2024 12:23 PM FRANCHISE BROKER ADULT TRANS THORACIC ECHO 2D COMPLT WWO CONT Routine 08/18/2024 11:07 AM FRANCHISE BROKER POCT GLUCOSE Routine 08/18/2024 9:02 AM FRANCHISE BROKER CBC WITH AUTO DIFFERENTIAL Routine 08/18/2024 4:42 AM FRANCHISE BROKER MAGNESIUM (MG) Routine 08/18/2024 4:42 AM FRANCHISE BROKER HEPATIC FUNCTION PANEL Routine 08/18/2024 4:42 AM FRANCHISE BROKER BASIC METABOLIC PANEL W/ CALCIUM TOTAL STAT 08/18/2024 4:42 AM FRANCHISE BROKER COMPLETE BLOOD COUNT (CBC) WITH DIFF Routine 08/18/2024 4:42 AM FRANCHISE BROKER POCT GLUCOSE Routine 08/17/2024 9:16 PM FRANCHISE BROKER POCT GLUCOSE Routine 08/17/2024 5:15 PM FRANCHISE BROKER THYROID SCREEN WITH REFLEX Routine 08/17/2024 3:17 PM FRANCHISE BROKER THYROXINE (T4) FREE Routine 08/17/2024 3 :17 PM FRANCHISE BROKER THYROID SCREEN WITH REFLEX Routine 08/17/2024 3:17 PM FRANCHISE BROKER US BILATERAL DUPLEX LOWER EXTREMITY VEINS STAT 08/17/2024 2:18 PM FRANCHISE BROKER LACTIC ACID (LACTATE) STAT 08/17/2024 1:45 PM FRANCHISE BROKER RSV,SARS-COV-2,INFL UENZA A&B BY PCR Routine 08/17/2024 1:18 PM FRANCHISE BROKER POCT GLUCOSE Routine 08/17/2024 11:52 AM FRANCHISE BROKER POCT GLUCOSE Routine 08/17/2024 7:44 AM FRANCHISE BROKER CBC WITH AUTO DIFFERENTIAL Routine 08/17/2024 4:41 AM FRANCHISE BROKER VANCOMYCIN Timed 08/17/2024 4:41 AM FRANCHISE BROKER BASIC METABOLIC PANEL W/ CALCIUM TOTAL STAT 08/17/2024 4:41 AM FRANCHISE BROKER CREATINE KINASE (CK) TOTAL Routine 08/17/2024 4:41 AM FRANCHISE BROKER COMPLETE BLOOD COUNT (CBC) WITH DIFF Routine 08/17/2024 4:[address] BILAT LOWER EXTREMITY W/ CONTRAST Routine 08/17/2024 1:37 AM FRANCHISE BROKER BASIC METABOLIC PANEL W/ CALCIUM TOTAL STAT 08/17/2024 12:14 AM FRANCHISE BROKER PROLACTIN Routine 08/17/2024 12:14 AM FRANCHISE BROKER LACTIC ACID (LACTATE) STAT 08/17/2024 12:14 AM FRANCHISE BROKER POCT GLUCOSE Routine 08/17/2024 12:01 AM FRANCHISE BROKER RHYTHM STRIP 08/17/2024 12:00 AM FRANCHISE BROKER HEMOGLOBIN A1C W/ ESTIMATED GLUCOSE Routine 08/16/2024 8:51 PM FRANCHISE BROKER from Last 3 Months or Most Recently Relevant to Health Maintenance Results * (ABNORMAL) POCT Glucose (08/26/2024 5:18 PM FRANCHISE BROKER) Only the most recent of39 resultswithin the time period is included. GLUCOSE,BEDSID E POCT 168(H) 70 - 99 mg/dL 08/26/2024 5:44 PM FRANCHISE BROKER [facility] Blood 08/26/2024 5:18 PM FRANCHISE BROKER 08/26/2024 5:44 PM FRANCHISE BROKER us None Provider POINT OF CARE TESTING Final Resu lt [facility] [address] [place] [address], [place] [phone] * (ABNORMAL) CBC with Auto Differential (08/26/2024 5:34 AM FRANCHISE BROKER) Only the most recent of10 resultswithin the time period is included. WBC 6.30 4.00 - 12.00 10(3)/mcL 08/26/2024 5:52 AM FRANCHISE BROKER [facility] RBC 3.53(L) 3.80 - 5.30 10(6)/mcL 08/26/2024 5:[address] [facility] HEMOGLOBIN (HGB) 10.3(L) 12.0 - 15.8 g/dL 08/26/2024 5:[address] [facility] HEMATOCRIT (HCT) 30.7(L) 36.0 - 47.0 % 08/26/2024 5:52 AM FRANCHISE BROKER [facility] MCV 86.8 82.0 - 96.0 fL 08/26/2024 5:52 AM FRANCHISE BROKER [facility] MCH 29.2 26.0 - 34.0 pg 08/26/2024 5:52 AM FRANCHISE BROKER [facility] MCHC 33.7 31.0 - 36.0 g/dL 08/26/2024 5:52 AM FRANCHISE BROKER [facility] PLATELET COUNT 194 140 - 440 10(3)/mcL 08/26/2024 5:52 AM FRANCHISE BROKER [facility] RDW 16.6(H) 11.8 - 15.5 % 08/26/2024 5:52 AM FRANCHISE BROKER [facility] MPV 7.2(L) 9.7 - 12.4 fL 08/26/2024 5:52 AM FRANCHISE BROKER [facility] NEUTROPHILS 68.0 47.0 - 73.0 % 08/26/2024 5:52 AM FRANCHISE BROKER [facility] LYMPHOCYTES 18.8 18.0 - 42.0 % 08/26/2024 5:[address] [facility] MONOCYTES 11.6 4.0 - 12.0 % 08/26/2024 5:52 AM FRANCHISE BROKER [facility] EOSINOPHILS 1.0 0.0 - 5.0 % 08/26/2024 5:52 AM FRANCHISE BROKER [facility] BASOPHILS 0.6 0.0 - 1.0 % 08/26/2024 5:52 AM FRANCHISE BROKER [facility] ABSOLUTE NEUTROPHILS 4.30 1.60 - 7.70 10(3)/[facility] 08/26/2024 5:[address] [facility] ABSOLUTE LYMPHOCYTES 1.20(L) 1.30 - 3.20 10(3)/[facility] 08/26/2024 5:52 AM FRANCHISE BROKER [facility] ABSOLUTE MONOCYTES 0.70 0.20 - 1.00 10(3)/[facility] 08/26/2024 5:52 AM FRANCHISE BROKER [facility] ABSOLUTE EOSINOPHIL 0.10 0.00 - 0.40 10(3)/[facility] 08/26/2024 5:[address] [facility] ABSOLUTE BASOPHILS 0.00 0.00 - 0.10 10(3)/[facility] 08/26/2024 5:[address] [facility] NRBC PER 100 WBC 0 08/26/19 5:[address] [facility] Blood Venipuncture / Unknown 08/26/2024 5:34 AM FRANCHISE BROKER 08/26/2024 5:34 AM FRANCHISE BROKER us Verenice Thibodeaux MD HEMATOLOGY ORDERABLES Final Resu lt [facility] [address] [place] [address], [place] [phone] * (ABNORMAL) CMP (Comprehensive Metabolic Panel) (08/26/2024 5:34 AM FRANCHISE BROKER) Only the most recent of4 resultswithin the time period is included. SODIUM 131(L) 136 - 145 mmol/L 08/26/2024 6:[address] [facility] POTASSIUM 4.2 3.5 - 5.1 mmol/L 08/26/2024 6:[address] [facility] CHLORIDE 102 98 - 107 mmol/L 08/26/2024 6:[address] [facility] CO2, VENOUS 22 22 - 30 mmol/L 08/26/2024 6:[address] [facility] ANION GAP 7.0 <18.0 mmol/L 08/26/2024 6:[address] [facility] GLUCOSE 205(H) 70 - 99 mg/dL 08/26/2024 6:[address] [facility] BUN 11 10 - 20 mg/dL 08/26/2024 6:[address] [facility] CREATININE, BLOOD 0.80 0.60 - 1.00 mg/dL 08/26/2024 6:[address] [facility] BUN/CREATININE RATIO 14 12 - 20 ratio 08/26/2024 6:[address] [facility] TOTAL PROTEIN 8.5(H) 6.3 - 8.2 g/dL 08/26/2024 6:[address] [facility] ALBUMIN 2.5(L) 3.5 - 5.0 g/dL 08/26/2024 6:[address] [facility] A/G RATIO 0.4(L) 1.0 - 2.2 08/26/2024 6:[address] [facility] CALCIUM 8.2(L) 8.7 - 10.5 mg/dL 08/26/2024 6:[address] [facility] T BILI 0.7 0.2 - 1.2 mg/dL 08/26/2024 6:[address] [facility] SGOT (AST) 29 5 - 34 U/L 08/26/2024 6:[address] [facility] SGPT (ALT) 13 0 - 55 U/L 08/26/2024 6:23 AM [facility] ALKALINE PHOSPHATASE 141 40 - 150 U/L 08/26/2024 6:23 AM [facility]OK[facility] GFR, ESTIMATED >60 >=60 08/26/2024 6:[address] [facility] Comment: Creatinine Clearance is the preferred criteria for selecting drug dose adjustments in renally impaired patients. The GFR is provided as additional pertinent clinical information. GFR is reported in mL/min/1.73 sq m. Calculation based on the Chronic Kidney Disease Epidemiology Collaboration (CKD- EPI) equation refit without adjustment for race. GFR, EST. >60 >=60 025 6:23 AM [facility]OK[facility] GFR, EST. NONAFRICAN >60 >=60 08/26/2024 6:[address] [facility] Blood Venipuncture / Unknown 08/26/2024 5:34 AM [facility] 08/26/2024 5:34 AM [facility] us Tyler Fermin MD CHEMISTRY ORDERABLES Fin al Result [facility] [address] [place] [address], [place] [phone] * (ABNORMAL) Basic Metabolic Panel w/ Calcium Total (08/25/2024 6:00 AM [facility]ISE BROKER) Only the most recent of7 resultswithin the time period is included. SODIUM 133(L) 136 - 145 mmol/L 08/25/2024 7:49 AM [facility] BROK[facility] POTASSIUM 4.0 3.5 - 5.1 mmol/L 08/25/2024 7:[address] [facility] CHLORIDE 105 98 - 107 mmol/L 08/25/2024 7:[address] [facility] CO2, VENOUS 22 22 - 30 mmol/L 08/25/2024 7:[address] [facility] ANION GAP 6.0 <18.0 mmol/L 08/25/2024 7:[address] [facility] GLUCOSE 185(H) 70 - 99 mg/dL 08/25/2024 7:[address] [facility] BUN 8(L) 10 - 20 mg/dL 08/25/2024 7:[address] [facility] CREATININE, BLOOD 0.71 0.60 - 1.00 mg/dL 08/25/2024 7:[address] [facility] BUN/CREATININE RATIO 11(L) 12 - 20 ratio 08/25/2024 7:[address] [facility] CALCIUM 8.4(L) 8.7 - 10.5 mg/dL 08/25/2024 7:[address] [facility] GFR, ESTIMATED >60 >=60 08/25/2024 7:[address] [facility] Comment: Creatinine Clearance is the preferred criteria for selecting drug dose adjustments in renally impaired patients. The GFR is provided as additional pertinent clinical information. GFR is reported in mL/min/1.73 sq m. Calculation based on the Chronic Kidney Disease Epidemiology Collaboration (CKD- EPI) equation refit without adjustment for race. GFR, EST. >60 >=60 025 7:[address] [facility] GFR, EST. NONAFRICAN >60 >=60 08/25/2024 7:[address] [facility] Blood Venipuncture / Unknown 08/25/2024 6:00 AM [facility] 08/25/2024 6:53 AM [facility] us Malik Marshall MD CHEMISTRY ORDERABLES Final Res ult [facility] [address] [place] [address], [place] [phone] * US LEFT DUPLEX LOWER EXTREMITY VEINS (08/24/2024 11:23 AM [facility]OKER) Anatomical Region Laterality Modality vascular Left Ultrasound 08/24/2024 11:2 3 AM [facility] Impressions 08/24/2024 11:38 AM [facility] IMPRESSION: 1. No deep venous thrombosis in the left lower extremity. Narrative 08/24/2024 11:38 AM [facility] DICTATING PHYSICIAN: Snehal Nicholson D.O. EXAM: Left lower extremity venous duplex, 08/24/2024 HISTORY: 59-year-old with left leg swelling. COMPARISON: None. FINDINGS: The left leg only was studied. Normal flow and compressibility were seen in the common femoral, profunda femoral, superficial femoral, popliteal, posterior tibial, peroneal, gastroc, and proximal greater saphenous veins. No echogenic material was seen within the vessel lumens. The medial popliteal fossa was examined to assess for the presence of a popliteal (Dunaway's) cyst. No popliteal cyst was seen. Nonspecific subcutaneous edema throughout the left leg. . Procedure Note Snehal Nicholson, DO - 08/24/2024 DICTATING PHYSICIAN: Snehal Nicholson D.O. EXAM: Left lower extremity venous duplex, 08/24/2024 HISTORY: 59-year-old with left leg swelling. COMPARISON: None. FINDINGS: The left leg only was studied. Normal flow and compressibilitywere seen in the common femoral, profunda femoral, superficial femoral,popliteal, posterior tibial, peroneal, gastroc, and proximal greatersaphenous veins. No echogenic material was seen within the vessel lumens. The medial popliteal fossa was examined to assess for the presence of apopliteal (Dunaway's) cyst. No popliteal cyst was seen. Nonspecificsubcutaneous edema throughout the left leg. . IMPRESSION: 1. No deep venous thrombosis in the left lower extremity. Malik Marshall MD [facility] [place] ORDERABLES Final Result * Vancomycin Level (08/22/2024 4:36 AM [facility] BROKER) Only the most recent of3 resultswithin the time period is included. VANCOMYCIN RESULT 23 20 - 40 mcg/mL 08/22/2024 6:06 AM [facility] BR[facility] Blood Venipuncture / Unknown 08/22/2024 4:36 AM [facility] BROKER 08/22/2024 5:26 AM [facility] Chadd Bardales MD CHEMISTRY ORDERABLES Final Re sult Performing Organization Address [facility]/ZIP Co de Phone Number [facility] [address] [place] [address], * PULMONARY TEST (08/22/2024 12:00 AM FR[facility]CHISE BROKER) 08/22/2024 us Provider Scan PFT ORDERABLES Final Result Performing Organization Address [facility]/ZIP Co de Phone Number SCAN * PHOSPHORUS (PO4) (08/20/2024 4:17 AM [facility]ISE BROKER) Only the most recent of2 resultswithin the time period is included. PHOSPHORUS 2.7 2.5 - 4.5 mg/dL 08/20/2024 6:24 AM [facility] BROK[facility] Blood Venipuncture / Unknown 08/20/2024 4:17 AM [facility]OK[facility] 08/20/2024 6:02 AM [facility] Garth Delaney MD CHEMISTRY ORDERABLES Final Resul t Performing Organization Address [facility] de Phone Number [facility] [address] [place] [address], * Smear, Gram Stain (08/19/2024 1:30 PM [facility] BROKER) Only the most recent of2 resultswithin the time period is included. GRAM STAIN No epithelial cells 08/20/2024 3:00 AM [facility]ISE BROKER [facility] GRAM STAIN No Segmented Neutrophils seen 08/20/2024 3:00 AM [facility] BROK[facility] GRAM STAIN No Organisms seen 08/20/2024 3:00 AM [facility] BROK[facility] Culture FOOT STRUCTURE / Unknown Non-Phlebotomy Collection / Unknown 08/19/2024 1:30 PM [facility] 08/19/2024 2:05 PM [facility] Eddie Raymond MD MICROBIOLOGY - GENERAL OR DERABLES Final Result Performing Organization Address City/[facility] Co de Phone Number [facility] [address] [place] [address], [place] * CULTURE, ANAEROBIC (08/19/2024 1:30 PM [facility]ISE BROKER) Only the most recent of2 resultswithin the time period is included. CULTURE RESULTS NO ANAEROBES ISOLATED 08/25/2024 7:18 AM [facility]ISE BROKER [facility] Culture FOOT STRUCTURE / Unknown Non-Phlebotomy Collection / Unknown 08/19/2024 1:30 PM [facility]OK[facility] Eddie Raymond MD MICROBIOLOGY - GENERAL OR DERABLES Final Result Performing Organization Address [facility] Co de Phone Number [facility] [address] [place] [address], [place] * CULTURE, AEROBIC (08/19/2024 1:30 PM FRANCHISE BROKER) Only the most recent of2 resultswithin the time period is included. CULTURE RESULTS No growth final 08/23/2024 6:29 AM [facility]CHISE BROKER [facility] Culture FOOT STRUCTURE / Unknown Non-Phlebotomy Collection / Unknown 08/19/2024 1:30 PM [facility] Eddie Raymond MD MICROBIOLOGY - GENERAL OR DERABLES Final Result Performing Organization Address [facility] de Phone Number [facility] [address] [place] [address], [place] * US ANKLE/BRACHIAL INDICES (08/19/2024 11:03 AM FR[facility]CHISE BROKER) Anatomical Region Laterality Modality vascular N/A Ultrasound 08/19/2024 11:0 3 AM [facility] Impressions 08/19/2024 11:24 AM [facility]ER IMPRESSION: 1. Right: The resting LUIS ALBERTO is 0.84, mild ischemia. 2. Left: The resting LUIS ALBERTO is 0.97 which is normal. 3. Waveforms at the ankle are normal. Narrative 08/19/2024 11:24 AM [facility] DICTATING PHYSICIAN: Darius Henry MD, [facility] EXAM: LUIS ALBERTO's, 08/19/2024 11:09 AM HISTORY: Discolored legs COMPARISON: None Brachial Artery Pressures: Right: 116 Left: 123 Waveforms: Right: Multiphasic posterior tibial and dorsalis pedis Left: Multiphasic posterior tibial and dorsalis pedis ABIs/TBIs: Right: Posterior Tibial brachial index is 0.85, Dorsalis Pedis brachial index is 0.84. Right TBI was not done Left: Posterior Tibial brachial index is 0.96, Dorsalis Pedis brachial index is 0.97 with a TBI of 0.71 with an absolute great toe pressure of 87 Pulse Volume Recordings: Right: Normal Left: Normal Procedure Note Darius Henry MD - 08/19/2024 DICTATING PHYSICIAN: Darius Henry MD, [facility] EXAM: LUIS ALBERTO's, 08/19/2024 11:09 AM HISTORY: Discolored legs COMPARISON: None Brachial Artery Pressures: Right: 116 Left: 123 Waveforms: Right: Multiphasic posterior tibial and dorsalis pedis Left: Multiphasic posterior tibial and dorsalis pedis ABIs/TBIs: Right: Posterior Tibial brachial index is 0.85, Dorsalis Pedis brachialindex is 0.84. Right TBI was not done Left: Posterior Tibial brachial index is 0.96, Dorsalis Pedis brachialindex is 0.97 with a TBI of 0.71 with an absolute great toe pressure of87 Pulse Volume Recordings: Right: Normal Left: Normal IMPRESSION: 1. Right: The resting LUIS ALBERTO is 0.84, mild ischemia. 2. Left: The resting LUIS ALBERTO is 0.97 which is normal. 3. Waveforms at the ankle are normal. us Verenice Thibodeaux MD G US ORDERABLES Final Result * MAGNESIUM (MG) (08/19/2024 5:21 AM [facility]CHISE BROKER) Only the most recent of2 resultswithin the time period is included. MAGNESIUM 1.7 1.6 - 2.6 mg/dL 08/19/2024 7:01 AM [facility] BROK[facility] Blood Venipuncture / Unknown 08/19/2024 5:21 AM [facility] BR[facility] 08/19/2024 6:23 AM [facility] Enrique Floyd MD CHEMISTRY ORDERABLES Fin al Result [facility] [address] [place] [id number], [place] [phone] * (ABNORMAL) Procalcitonin (08/18/2024 4:23 PM FR[facility]CHISE BROKER) PROCALCITONIN 9.87(H) <=0.25 ng/mL 08/18/2024 5:14 PM [facility] BROK[facility] Blood Venipuncture / Unknown 08/18/2024 4:23 PM [facility] BROKER 08/18/2024 4:42 PM [facility] BROKER Narrative [facility] - 08/18/2024 5:14 PM FR[facility]CHISE BROKER If the differential diagnosis is systemic bacterial infection, sepsis, or septic shock use these guidelines: <=0.25 ng/mL: Low risk for systemic bacterial infection, sepsis, or septic shock. Localized bacterial infection possible: Suggest re-testing in 24 hours >=0.50 ng/mL: Systemic bacterial infection, sepsis, or septic shock are possible: suggest re-testing in approximately 24 hours. If the differential diagnosis is suspected lower respiratory tract infection (LRTI) or there is confirmed LRTI: < 0.1 ng/mL: Suggests absence of bacterial infection. Antibiotic therapy strongly discouraged. 0.1-0.25 ng/mL: Suggests bacterial infection is unlikely. Antibiotic therapy discouraged. 0.26-0.5 ng/mL: Suggests possible bacterial infection. Antibiotic therapy encouraged. > 0.5 ng/mL: Suggests bacterial infection. Antibiotic therapy strongly encouraged Enrique Floyd MD IMMUNOLOGY ORDERABLES Fi nal Result [facility] [address] [place] [address], [place] [phone] * XR HUMERUS RIGHT (08/18/2024 12:23 PM FRANCHISE BROKER) Anatomical Region Laterality Modality UPPER EXTREMITY, Humerus Right Digital Radiography 08/18/2024 12:2 3 PM [facility]ER Impressions 08/18/2024 1:39 PM [facility] BROKER IMPRESSION: 1. No acute radiographic abnormality Narrative 08/18/2024 1:39 PM [facility]ER DICTATING PHYSICIAN: Choco Norris D.O. EXAM: XR HUMERUS RIGHT 08/18/2024 12:23 PM COMPARISON: None. HISTORY: Pain, possibly fell on r arm at home, please do right arm right shoulder FINDINGS: 2 views of the right humerus were obtained. Bones: Normal osseous mineralization. No lucent fracture line, cortical disruption, or periosteal reaction. Joints: Degenerative changes of the AC joint and elbow. Soft tissues: No foreign body or tendon calcification. Procedure Note Choco Norris, - 08/18/2024 DICTATING PHYSICIAN: Choco Norris D.O. EXAM: XR HUMERUS RIGHT 08/18/2024 12:23 PM COMPARISON: None. HISTORY: Pain, possibly fell on r arm at home, please do right arm rightshoulder FINDINGS: 2 views of the right humerus were obtained. Bones: Normal osseous mineralization. No lucent fracture line,cortical disruption, or periosteal reaction. Joints: Degenerative changes of the AC joint and elbow. Soft tissues: No foreign body or tendon calcification. IMPRESSION: 1. No acute radiographic abnormality Enrique Floyd MD IMG DIAGNOSTIC ORDERABLE S Final Result * ADULT TRANS THORACIC ECHO 2D COMPLT WWO CONT (08/18/2024 11:07 AM FRANCHISE BROKER) AV Peak Grad mmHg 8.76 mmHg RESULTING AGENCY Mean Aortic Valve Gradient (MAVG) 5 mmHg RESULTING AGENCY LV end sukh diam cm 4.48 cm RESULTING AGENCY LV end sys diam cm 3.09 cm RESULTING AGENCY LA vol index ml/m2 32 ml/m2 RESULTING AGENCY LVOT Peak Oleg m/sec 0.968 m/sec RESULTING AGENCY AV Peak Oleg m/sec 1.48 m/sec RESULTING AGENCY MV Mean Grad mmHg 3 mmHg RESULTING AGENCY E/A Ratio 1.06 RESULTING AGENCY E/E' 7.4 RESULTING AGENCY AV Area (VTI) cm2 2.36 cm2 RESULTING AGENCY SEPTUM DIASTOLIC CM 1.08 cm RESULTING AGENCY PW DIASTOLIC CM 0.99 cm RESU LTING AGENCY LA VOLUME 67.2 ml RESULTING AGENCY Anatomical Region Laterality Modality CARDIO N/A Ultrasound Narrative 08/19/2024 2:10 PM [facility]CHISE BROKER Transthoracic Echocardiography Report (TTE) Patient name BRYANT Mcdonuogh 1965 Patient ID (UPI) [id number] Indications: Dyspnea. Study Date08/18/2024 Type of Study: TTE procedure: M-Mode, Doppler , Color Doppler, Contrast study, Adult Trans Thoracic Echo 2D Complete WWO Cont, Myocardial Strain, LV Strain. Priority:RoutineHR: 107 bpmBP: 125/67 mmHg Contrast Medium: Lumason. Amount - 4 ml Conclusions Summary No prior echocardiogram for comparison. Transthoracic real-time echocardiogram, complete, with 2-D and m-mode recording, pulsed and continuous wave spectral doppler, and color flow velocity mapping performed, with the following findings: Left ventricular systolic function is normal. The right ventricle appears normal. There is no significant valve disease or atrial enlargement. Findings Mitral Valve The mitral valve is normal. There is no evidence of mitral stenosis. There is no significant mitral regurgitation. Aortic Valve The aortic valve appears trileaflet with normal leaflet excursion. There is no evidence of aortic valve stenosis. There is no significant aortic valve insufficiency. Tricuspid Valve The tricuspid valve is normal. There is no evidence of tricuspid stenosis. There is trace tricuspid regurgitation. There is no evidence of pulmonary hypertension. Pulmonic Valve The pulmonic valve is not well seen. There is no evidence of pulmonic stenosis. There is no significant pulmonic valve regurgitation. Left Atrium The left atrium size is normal. Left Ventricle Lumason ultrasound contrast agent was utilized to enhance visualization of endocardial borders. The left ventricle is normal in size. Normal LV wall thickness. Normal LV systolic function. 3D Heart Model EF is 54 %. Estimated LVEF is %. No evidence of left ventricle wall motion abnormalities. Normal LV diastolic function. Average global longitudinal strain (GLS) - 14.8%, utilizing Practice Management e-Tools software. Right Atrium The right atrium size is normal. Right Ventricle Normal right ventricular cavity size and normal systolic function. TAPSE is 1.69 cm. Pericardial Effusion No evidence of pericardial effusion. Pleural Effusion No pleural effusion noted. Miscellaneous Aortic root and proximal ascending aorta are normal in size. Atrial septum appears intact by color Doppler. IVC is normal in size and respiratory response. Valves Mitral Valve Peak E-Wave: 1.08 m/s Area (continuity): 2.8 cm^2 Peak A-Wave: 1.02 m/s Mean Velocity: 0.82 m/s Peak Gradient: 4.67 mmHg Mean Gradient: 3 mmHg Deceleration Time: 148 msec Tissue Doppler E' Velocity: 0.14 m/s E/E':7.4 E/A Ratio: 1.06 E/Lat E': 7.4 E/Med E':7 Aortic Valve Area (continuity): 2.36 cm^2 Mean Velocity: 1.03 m/s Area (VTI):2.36 cm^2 Mean Gradient: 5 mmHg Peak Velocity: 1.48 m/s AV VTI: 20.9 cm Peak Gradient: 8.76 mmHg Cusp Separation: 1.5 cm Tricuspid Valve Estimated RAP: 3 mmHg Pulmonic Valve Peak Velocity: 0.80 m/s Mean Velocity: 0.51 m/s Peak Gradient: 2.57 mmHg Mean Gradient: 1 mmHg LVOT Peak Velocity: 0.96 m/s Mean Velocity: 0.66 m/s Peak Gradient: 4 mmHg Mean Gradient: 3 mmHg LVOT Diameter: 2 cm LVOT VTI: 15.7 cm Stroke Volume: 49 ml Stroke Volume Index: 23.33 ml/m^2 Structures Left Ventricle Diastolic Dimension: 4.48 cm Systolic Dimension: 3.09 cm Septum Diastolic: 1.08 cm PW Diastolic: 0.99 cm CI: 2.51 l/min*m^2 CO: 5.27 l/min RWT: 0.44 FS: 31.03 % LVOT Diameter: 2 cm Global Longitudinal Strain:-14.8 Right Ventricle RVOT (PLAX) diameter:2.29 cm Tissue Doppler TAPSE: 1.69 cm Left Atrium LA Dimension: 3.6 cm LA Area: 19.4 cm^2 LA Systolic Pressure: 11.71 mmHg LA Volume: 67.2 ml LA Index: 32ml/m^2 Great Vessels Aorta Sinotubular junction: 2.81 cm Sinus of Valsalva: 3.4 cm Aortic root index:1.62 cm/m^2 Ascending Aorta: 3 cm Ascending Aorta Index:1.43 cm/m^2 Demographics Age 59 Gender Female Race Height 69.02 in. Weight 207.1 lbs. 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 [address] Interpreting Malgorzata Myers Referring Verenice Thibodeaux Physician Physician Annalisa Chowdhury Procedure Note Mukul Fang MD PhD - 08/19/2024 Transthoracic Echocardiography Report (TTE) Patient name BRYANT Argueta.O.B. 1965 Patient ID (UPI) [id number] Indications: Dyspnea. Study Date08/18/2024 Type of Study: TTE procedure: M-Mode, Doppler , Color Doppler, Contrast study, Adult Trans Thoracic Echo 2D Complete WWO Cont, Myocardial Strain, LV Strain. Priority:RoutineHR: 107 bpmBP: 125/67 mmHg Contrast Medium: Lumason. Amount - 4 ml Conclusions Summary No prior echocardiogram for comparison. Transthoracic real-time echocardiogram, complete, with 2-D and m-mode recording, pulsed and continuous wave spectral doppler, and color flow velocity mapping performed, with the following findings: Left ventricular systolic function is normal. The right ventricle appears normal. There is no significant valve disease or atrial enlargement. Findings Mitral Valve The mitral valve is normal. There is no evidence of mitral stenosis. There is no significant mitral regurgitation. Aortic Valve The aortic valve appears trileaflet with normal leaflet excursion. There is no evidence of aortic valve stenosis. There is no significant aortic valve insufficiency. Tricuspid Valve The tricuspid valve is normal. There is no evidence of tricuspid stenosis. There is trace tricuspid regurgitation. There is no evidence of pulmonary hypertension. Pulmonic Valve The pulmonic valve is not well seen. There is no evidence of pulmonic stenosis. There is no significant pulmonic valve regurgitation. Left Atrium The left atrium size is normal. Left Ventricle Lumason ultrasound contrast agent was utilized to enhance visualization of endocardial borders. The left ventricle is normal in size. Normal LV wall thickness. Normal LV systolic function. 3D Heart Model EF is 54 %. Estimated LVEF is %. No evidence of left ventricle wall motion abnormalities. Normal LV diastolic function. Average global longitudinal strain (GLS) - 14.8%, utilizing [employer] software. Right Atrium The right atrium size is normal. Right Ventricle Normal right ventricular cavity size and normal systolic function. TAPSE is 1.69 cm. Pericardial Effusion No evidence of pericardial effusion. Pleural Effusion No pleural effusion noted. Miscellaneous Aortic root and proximal ascending aorta are normal in size. Atrial septum appears intact by color Doppler. IVC is normal in size and respiratory response. Valves Mitral Valve Peak E-Wave: 1.08 m/s Area (continuity): 2.8 cm^2 Peak A-Wave: 1.02 m/s Mean Velocity: 0.82 m/s Peak Gradient: 4.67 mmHg Mean Gradient: 3 mmHg Deceleration Time: 148 msec Tissue Doppler E' Velocity: 0.14 m/s E/E':7.4 E/A Ratio: 1.06 E/Lat E': 7.4 E/Med E':7 Aortic Valve Area (continuity): 2.36 cm^2 Mean Velocity: 1.03 m/s Area (VTI):2.36 cm^2 Mean Gradient: 5 mmHg Peak Velocity: 1.48 m/s AV VTI: 20.9 cm Peak Gradient: 8.76 mmHg Cusp Separation: 1.5 cm Tricuspid Valve Estimated RAP: 3 mmHg Pulmonic Valve Peak Velocity: 0.80 m/s Mean Velocity: 0.51 m/s Peak Gradient: 2.57 mmHg Mean Gradient: 1 mmHg LVOT Peak Velocity: 0.96 m/s Mean Velocity: 0.66 m/s Peak Gradient: 4 mmHg Mean Gradient: 3 mmHg LVOT Diameter: 2 cm LVOT VTI: 15.7 cm Stroke Volume: 49 ml Stroke Volume Index: 23.33 ml/m^2 Structures Left Ventricle Diastolic Dimension: 4.48 cm Systolic Dimension: 3.09 cm Septum Diastolic: 1.08 cm PW Diastolic: 0.99 cm CI: 2.51 l/min*m^2 CO: 5.27 l/min RWT: 0.44 FS: 31.03 % LVOT Diameter: 2 cm Global Longitudinal Strain:-14.8 Right Ventricle RVOT (PLAX) diameter:2.29 cm Tissue Doppler TAPSE: 1.69 cm Left Atrium LA Dimension: 3.6 cm LA Area: 19.4 cm^2 LA Systolic Pressure: 11.71 mmHg LA Volume: 67.2 ml LA Index: 32ml/m^2 Great Vessels Aorta Sinotubular junction: 2.81 cm Sinus of Valsalva: 3.4 cm Aortic root index:1.62 cm/m^2 Ascending Aorta: 3 cm Ascending Aorta Index:1.43 cm/m^2 Demographics Age 59 Gender Female Race Height 69.02 in. Weight 207.1 lbs. 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 [address] Interpreting Malgorzata Myers Referring Verenice Thibodeaux Physician MD Physician Annalisa Chowdhury us Verenice Thibodeaux MD IMG ECHO ORDERABLES Final Result * (ABNORMAL) Hepatic Function Panel (08/18/2024 4:42 AM FRANCHISE BROKER) [facility] T BILI 1.5(H) 0.2 - 1.2 mg/dL 08/18/2024 6:05 AM FRANCHISE BROKER [facility] BILIRUBIN,DIRECT 0.9(H) 0.0 - 0.5 mg/dL 08/18/2024 6:05 AM FRANCHISE BROKER [facility] ALKALINE PHOSPHATASE 83 40 - 150 U/L 08/18/2024 6:05 AM FRANCHISE BROKER [facility] SGOT (AST) 88(H) 5 - 34 U/L 08/18/2024 6:[address] [facility] SGPT (ALT) 39 0 - 55 U/L 08/18/2024 6:[address] [facility] TOTAL PROTEIN 7.0 6.3 - 8.2 g/dL 08/18/2024 6:[address] [facility] ALBUMIN 2.5(L) 3.5 - 5.0 g/dL 08/18/2024 6:[address] [facility] Blood Venipuncture / Unknown 08/18/2024 4:42 AM FRANCHISE BROKER 08/18/2024 5:26 AM FRANCHISE BROKER Enrique Floyd MD CHEMISTRY ORDERABLES Fin al Result Performing Organization Address [facility]/ZIP Co de Phone Number [facility] [address] [place] [address], [place] [phone] * (ABNORMAL) THYROID SCREEN WITH REFLEX (08/17/2024 3:17 PM FRANCHISE BROKER) TSH 0.103(L) 0.300 - 5.000 mIU/L 08/17/2024 3:[address] [facility] Blood Venipuncture / Unknown 08/17/2024 3:17 PM FRANCHISE BROKER 08/17/2024 3:18 PM FRANCHISE BROKER Verenice Thibodeaux MD CHEMISTRY ORDERABLES Final Resul t Performing Organization Address [facility]/ZIP Co de Phone Number [facility] [address] [place] [address], [place] [phone] * THYROXINE (T4) FREE (08/17/2024 3:17 PM FRANCHISE BROKER) T4 FREE 0.9 0.7 - 1.9 ng/dL 08/18/2024 3:01 PM FRANCHISE BROKER [facility] Blood Venipuncture / Unknown 08/17/2024 3:17 PM FRANCHISE BROKER 08/17/2024 3:18 PM FRANCHISE BROKER us Verenice Thibodeaux MD CHEMISTRY ORDERABLES Final Resul t [facility] [address] [place] [address], [place] * US BILATERAL DUPLEX LOWER EXTREMITY VEINS (08/17/2024 2:18 PM FRANCHISE BROKER) Anatomical Region Laterality Modality vascular Bilateral Ultrasound 08/17/2024 2:18 PM FRANCHISE BROKER Impressions 08/17/2024 2:31 PM FRANCHISE BROKER IMPRESSION: 1. No DVT in the lower extremities. Narrative 08/17/2024 2:31 PM FRANCHISE BROKER DICTATING PHYSICIAN: Minnie Farley M.D. EXAMINATION: US BILATERAL DUPLEX LOWER EXTREMITY VEINS, 08/17/2024 2:18 PM COMPARISON: None CLINICAL HISTORY: Swelling PROCEDURE: A venous duplex exam of both lower extremities was performed. Color and spectral Doppler images were obtained. The deep veins were examined for compressibility, augmentation, waveforms, and echogenic intraluminal material. FINDINGS: RIGHT: Thigh veins: Common femoral, profunda femoral, and femoral veins are normal. Popliteal vein: Normal. Calf veins: Posterior tibial and peroneal veins are normal. Superficial veins: Proximal great saphenous vein in the thigh is normal. LEFT: Thigh veins: Common femoral, profunda femoral, and femoral veins are normal. Popliteal vein: Normal. Calf veins: Posterior tibial and peroneal veins are normal. Superficial veins: Proximal great saphenous vein in the thigh is normal. Waveforms: Normal. Grayscale: No popliteal cyst. Procedure Note Minnie Farley MD - 08/17/2024 DICTATING PHYSICIAN: Minnie Farley M.D. EXAMINATION: US BILATERAL DUPLEX LOWER EXTREMITY VEINS, 08/17/2024 2:18 PM COMPARISON: None CLINICAL HISTORY: Swelling PROCEDURE: A venous duplex exam of both lower extremities was performed.Color and spectral Doppler images were obtained. The deep veins wereexamined for compressibility, augmentation, waveforms, and echogenicintraluminal material. FINDINGS: RIGHT: Thigh veins: Common femoral, profunda femoral, and femoral veins arenormal. Popliteal vein: Normal. Calf veins: Posterior tibial and peroneal veins are normal. Superficial veins: Proximal great saphenous vein in the thigh is normal. LEFT: Thigh veins: Common femoral, profunda femoral, and femoral veins arenormal. Popliteal vein: Normal. Calf veins: Posterior tibial and peroneal veins are normal. Superficial veins: Proximal great saphenous vein in the thigh is normal. Waveforms: Normal. Grayscale: No popliteal cyst. IMPRESSION: 1. No DVT in the lower extremities. us Verenice Thibodeaux MD IMG US ORDERABLES Final Result * (ABNORMAL) Lactic Acid (Lactate) (08/17/2024 1:45 PM FRANCHISE BROKER) Only the most recent of2 resultswithin the time period is included. LACTIC ACID 2.7(H) 0.7 - 2.0 mmol/L 08/17/2024 2:02 PM FRANCHISE BROKER [facility] Blood Venipuncture / Unknown 08/17/2024 1:45 PM FRANCHISE BROKER 08/17/2024 1:47 PM FRANCHISE BROKER Verenice Thibodeaux MD CHEMISTRY ORDERABLES Final Resul t [facility] [address] [place] [address], [place] [phone] * RSV,SARS-COV-2,INFLUENZA A&B BY PCR (08/17/2024 1:18 PM FRANCHISE BROKER) FLU A Negative Negative [facility] CEPHEID GENEXPERT 08/17/2024 2:05 PM FRANCHISE BROKER [facility] FLU B Negative Negative [facility] CEPHEID GENEXPERT 08/17/2024 2:05 PM FRANCHISE BROKER [facility] RESP SYNC VIRUS Negative Negative, Invalid [facility] CEPHEID GENEXPERT 08/17/2024 2:05 PM FRANCHISE BROKER [facility] SARSCOV2 NOT DETECTED (Reference Range for this test is Not Detected) [facility] CEPHEID GENEXPERT 08/17/2024 2:05 PM FRANCHISE BROKER [facility] Comment:This test was perfor med by a Reverse [employer] Consultant PCR Method. Swab NASOPHARYNGEAL SWAB / Unknown Non-Phlebotomy Collection / Unknown 08/17/2024 1:18 PM FRANCHISE BROKER 08/17/2024 1:25 PM FRANCHISE BROKER Rupa Franklin MD MICROBIOLOGY - GENERAL OR DERABLES Final Result Performing Organization Address City/[facility]/ZIP Co de Phone Number [facility] [address] [place] [address], [place] [phone] * (ABNORMAL) Creatine Kinase (CK) Total (08/17/2024 4:41 AM FRANCHISE BROKER) CK (CPK) 1,584(H) 29 - 168 U/L 08/17/2024 5:37 AM FRANCHISE BROKER [facility] Blood Venipuncture / Unknown 08/17/2024 4:41 AM FRANCHISE BROKER 08/17/2024 4:56 AM FRANCHISE BROKER us Verenice Thibodeaux MD HEMATOLOGY ORDERABLES Final Resu lt Performing Organization Address [facility]/ZIP Co de Phone Number [facility] [address] [place] [address], [place] [phone] * CT BILAT LOWER EXTREMITY W/ CONTRAST (08/17/2024 1:37 AM FRANCHISE BROKER) Anatomical Region Laterality Modality LOWER EXTREMITY Bilateral Computed Tomogra phy 08/17/2024 1:37 AM FRANCHISE BROKER Impressions 08/17/2024 7:52 AM FRANCHISE BROKER IMPRESSION: Findings that can be seen with lower leg cellulitis, significantly more pronounced on the left. No well-defined rim-enhancing drainable abscess or soft tissue air. Narrative 08/17/2024 7:52 AM FRANCHISE BROKER DICTATING PHYSICIAN: Camron Ku MD. EXAM DATE: 08/17/2024 1:37 AM EXAM: CT BILAT LOWER EXTREMITY W/ CONTRAST COMPARISON: None. INDICATION: Lower leg swelling. PROCEDURE: Axial computed tomographic images of the lower legs were obtained after the administration of 93 mL of Isovue-300 intravenously. 2-dimensional coronal and sagittal reconstructions were performed. WMV=705 mGy-cm. Dose reduction techniques were utilized. FINDINGS: Diffuse subcutaneous edema and dermal thickening involving the lower legs, significantly more pronounced on the left. Findings can be seen in the clinical setting of cellulitis. No well-defined rim enhancing drainable fluid collection is identified. No soft tissue air. Asymmetric atrophy of the right lower leg musculature. Atherosclerosis. Mild osseous demineralization. No acute fracture. Prior amputation of the right great toe. No definite CT evidence for osteomyelitis. Please note that evaluation is suboptimal (especially of the toes) due to the large field of view. Degenerative arthritis both knees with left knee joint effusion. Degenerative arthritis both ankles and feet. Procedure Note Camron Ku MD - 08/17/2024 DICTATING PHYSICIAN: Camron Ku MD. EXAM DATE: 08/17/2024 1:37 AM EXAM: CT BILAT LOWER EXTREMITY W/ CONTRAST COMPARISON: None. INDICATION: Lower leg swelling. PROCEDURE: Axial computed tomographic images of the lower legs wereobtained after the administration of 93 mL of Isovue-300 intravenously.2-dimensional coronal and sagittal reconstructions were performed. MSX=[id number]. Dose reduction techniques were utilized. FINDINGS: Diffuse subcutaneous edema and dermal thickening involving the lower legs,significantly more pronounced on the left. Findings can be seen in theclinical setting of cellulitis. No well-defined rim enhancing drainablefluid collection is identified. No soft tissue air. Asymmetric atrophy ofthe right lower leg musculature. Atherosclerosis. Mild osseous demineralization. No acute fracture. Prior amputation of theright great toe. No definite CT evidence for osteomyelitis. Please notethat evaluation is suboptimal (especially of the toes) due to the largefield of view. Degenerative arthritis both knees with left knee jointeffusion. Degenerative arthritis both ankles and feet. IMPRESSION: Findings that can be seen with lower leg cellulitis, significantly morepronounced on the left. No well-defined rim-enhancing drainable abscess orsoft tissue air. Janak Butcher MD IMG CT ORDERABLES Final Resu lt * Prolactin (08/17/2024 12:14 AM FRANCHISE BROKER) Prolactin 6.2 1.2 - 29.9 ng/mL 08/17/2024 4:08 PM FRANCHISE BROKER [facility] Blood Venipuncture / Unknown 08/17/2024 12:14 AM FRANCHISE BROKER 08/17/2024 12:14 AM FRANCHISE BROKER us Janak Butcher MD CHEMISTRY ORDERABLES Final R esult Performing Organization Address City/[facility]/ZIP Co de Phone Number [facility] [address] [place] [address], [place] * RHYTHM STRIP (08/17/2024 12:00 AM FRANCHISE BROKER) 08/17/2024 us Provider Scan IMG ECG ORDERABLES Final Result Performing Organization Address [facility] Co de Phone Number RESULTING AGENCY * (ABNORMAL) Hemoglobin A1C (08/16/2024 8:51 PM FRANCHISE BROKER) HGB-A1C 9.4(H) 4.0 - 6.0 % 08/17/2024 4:09 AM FRANCHISE BROKER [facility] Est Average Glucose 223.1 mg/dL 08/17/2024 4:09 AM FRANCHISE BROKER [facility] Blood Venipuncture / Unknown 08/16/2024 8:51 PM FRANCHISE BROKER 08/16/2024 8:53 PM FRANCHISE BROKER Narrative [facility] - 08/17/2024 4:09 AM FRANCHISE BROKER Specimens containing greater than 5% of Hemoglobin F may result in lower than expected % HbA1c results. us Verenice Thibodeaux MD CHEMISTRY ORDERABLES Final Resul t Performing Organization Address [facility] Co de Phone Number [facility] [address] [place] [address], [place] from Last 3 Months or Most Recently Relevant to Health Maintenance Insurance MEDICAID [place] MEDICARE C [facility] Advance Directives * Full Code (Latest Code Status on File) Date Activated Date Inactivated Comments 08/16/2024 8:15 PM CPR-Full Treatm ent: FULL ARREST: Attempt Resuscitation/CPR wit intubation and mechanical ventilation. PRE-ARREST: Use entire range of life support measures to stabilize the patient. Care Teams Vice President Payment Relationship Specialty Start Date End Date Nayana Garber PAC [address] [place] [address] PCP - General Advanced Practice Nurse 08/17/24
--- NOTE | 2024-11-15 09:23 | ECG_ITS ---
Test Date: 2024-11-15 09:23:17 Measurements Intervals [place] Rate: 113 P: 21 IA: 171 QRS: 77 QRSD: 114 T: 75 QT: 357 QTc: 491 Interpretive Statements SINUS TACHYCARDIA INTRAVENTRICULAR CONDUCTION DELAY BORDERLINE T WAVE ABNORMALITY- HIGH LATERAL LEADS ABNORMAL ECG Compared to ECG 08/16/2024 13:11:52 NO SIGNIFICANT CHANGE Electronically Signed On 11-17-2024 06:22:09 CDT by Doug Huffman D.O.
[2024-11-15 09:27] LABS: Glucose Point of Care 234 mg/dl (65-105)
[2024-11-15] MEDS: LACTATED RINGERS 1,000 ML 999 ML IV CONT ×2 (09:42→11:30)
[2024-11-15] MEDS: NALOXONE HCL 0.4 MG/ML VIAL IV PUSH (09:42)
[2024-11-15 09:50] LABS: Base Excess ABG 2.1 mmol/L (0-2); HCO3 ABG 24.5 mmol/L (23-29); Oxygen Saturation ABG 90.1 % (95-97); Oxyhemoglobin 88.7 % (94-100); PCO2 ABG 31.4 mmHg (35-45); PO2 ABG 56.2 mmHg (80-90); pH ABG 7.51 (7.35-7.45)
[2024-11-15 09:52] LABS: Device ROOM AIR; Modified Allen's Test Pass; Site Drawn LEFT RADIAL
--- OUTSIDE RECORDS SUMMARY | 2024-11-15 09:54 | XMS_ITS ---
Author Organization Unknown Address [address] [place] [address] [phone] Phone Care Team Providers Care Customer Support Engineer Name Role Phone TAMRA HUTCHINS Attending Unavailable [...] Frankie Mccoy M.D. KT: [id number] Report ID: [id number] Reading Location: [id number] Social History Type Status Start Date End [...]
--- OUTSIDE RECORDS SUMMARY | 2024-11-15 09:54 | XMS_ITS | Clinical Summary ---
Author Organization [facility] Address [address] [place] [address] Care Team Providers Care Atmospheric Scientist Name Role Phone Unavailable Primary Care Provider Unavailabl e Source Comments [facility],non-owned Affiliates and Associated Physician Practices is amultiple site organization consisting of ambulatory clinics and hospital sitesin [place], [place], [place] and [place]. This disclosure is being madepursuant to the Care Everywhere program and may not contain all information available regarding this patient. Last updated 18.[facility] Allergies Active Allergy Reactions Criticality Noted Date [...] medical care, and heating? Somewhat hard 12/17/2023 [facility] [place] [facility] Occupat ional Health - Occupational Stress [...] place to sleep or slept in a intermediate (including now)? No 12/17/2023 Sex and Gender [...] - 115 mg/dL 12/18/2023 12:11 AM CDT [facility] Specimen Type Cap Fingerstick 2023 12:11 AM CDT [facility] Blood BLOOD SPECIMEN / Unknown 12/18/2023 12:10 AM CDT 12/18/2023 12:11 AM CDT Ho Parada MD LAB - POINT OF CARE ORDERABLES [facility] [address] [place] [address], [facility] [phone] from Last 3 Months or Most Recently [...]
--- OUTSIDE RECORDS SUMMARY | 2024-11-15 09:54 | XMS_ITS | Clinical Summary ---
Author Organization [facility] Address [address] [place] [address] Care Team Providers Care Live Source Operator Name Role Phone No, Physician Primary Care Provider Allergies Active Allergy Reactions Criticality Noted Date [...] Lispro increased 16u TID per Endocrine - Potato Chip Sacking Machine Operator consulted - Grounds Foreman consulted for further education on food/snack choices [...] no regular soda Discharge Planning Use A [facility] Diabetes Discharge Order Set - Lantus 25 [...] Lispro increased 16u TID per Endocrine - Potato Chip Sacking Machine Operator consulted - Grounds Foreman consulted for further education on food/snack choices [...] MAP > 90 augmentation per nsgy - LOCAL COORDINATOR/TLSO brace, [place] J until custom LOCAL COORDINATOR/TLSO complete - Normotensive MAP goals, - [...] has been staffed with Dr. Tapia. Custom LOCAL COORDINATOR/TLSO Follow Up Clinic in 4-6 weeks [...] MAP > 90 augmentation per nsgy - LOCAL COORDINATOR/TLSO brace, [place] J until custom LOCAL COORDINATOR/TLSO complete - Normotensive MAP goals, - [...] has been staffed with Dr. Tapia. Custom LOCAL COORDINATOR/TLSO Follow Up Clinic in 4-6 weeks [...] MAP > 90 augmentation per nsgy - LOCAL COORDINATOR/TLSO brace, [place] J until custom LOCAL COORDINATOR/TLSO complete - Normotensive MAP goals, - [...] MAP > 90 augmentation per nsgy - LOCAL COORDINATOR/TLSO brace, [place] J until custom LOCAL COORDINATOR/TLSO complete - Normotensive MAP goals, - [...] 11/13/2024 2:45 PM CDT Office Visit [facility] Neurosurgery [facility] 6th [place] [address] [place] [address] Carol Monae NP S/P cervical spinal fusion (Primary Dx) 11/13/2024 2:35 PM CDT - 11/13/2024 11:59 PM CDT Hospital Encounter [facility] [address] [place] [address] S/P cervical spinal fusion; Right hand weakness Discharge Disposition: Discharge to home or self care 11/05/2024 Telephone [facility] Scheduling [address] [place] [address] Carol Monae NP 08/18/2024 Orders Only [facility] Neurosurgery [address] [facility] [address] [place] [address] Carol Monae NP S/P cervical spinal fusion (Primary Dx); Right hand weakness from Last 3 Months Immunizations Immunization Administration Dates Next Due Influenza, Quadrivalent, Split, Intramuscular Influenza, Quadrivalent, Spl it, Preservative Free, Intramuscular 08/17/2022,05/25/2016 Tdap 12/10/2023 Social History Tobacco Use Types Packs/Day Years Used Date Smoking Tobacco: Former Cigarettes Tobacco Cessation:Counseling Given: No [facility] Utilities Answer Date Recorded In the past 12 months has th e [employer], [employer], oil, or water [employer] threatened to shut off services in your [...] often do you attend chur ch or restoration services? 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 Gender Identity Not on file Sexual Orientation [...] Completed 03/09/2024 Medical Devices Implanted Type Area Facepiece Line Supervisor Device Identifier Shelf Expiration Date Model / Serial / Lot Allosource Canpac Allograft Frozen Nonpurge Graft 10cc Bone Cancellous [id number] - [id number] Implanted:Qty: 1 on 03/13/2024 by Marcio Tapia MD at [facility] N/A: Cervical- Thoracic Spine Allosource 02/04/2029 [id number] / / [id number] Allosource Canpac Allograft Frozen Nonpurge Graft 10cc Bone Cancellous [id number] - [id number] Implanted:Qty: 1 on 03/13/2024 by Marcio Tapia MD at [facility] Bone N/A: Cervical- Thoracic Spine Allosource 01/31/2029 [id number] / / [id number] Allosource Canpac Allograft Frozen Nonpurge Graft 10cc Bone Cancellous [id number] - [id number] Implanted:Qty: 1 on 03/13/2024 by Marcio Tapia MD at [facility] Bone N/A: Cervical- Thoracic Spine Allosource 01/18/2029 [id number] / / [id number] Nuvasive Inc Wayne Spinal Posterior Cervical Prebent Reline 4.8c987iu Titanium [id number] - [id number] Implanted:Qty: 1 on 03/13/2024 by Marcio Tapia MD at [facility] N/A: Cervical- Thoracic Spine Nuvasive Inc [id number] / / Nuvasive Inc Wayne Spine Reline C Ti Straight 4.4z145ol [id number] - [id number] Implanted:Qty: 1 on 03/13/2024 by Marcio Tapia MD at [facility] N/A: Cervical- Thoracic Spine Nuvasive Inc [id number] / / Medtronic Inc Kit Graft Bone Sponge Xlg Infuse 8cc Granules [id number] - [id number] Implanted:Qty: 1 on 03/13/2024 by aMrcio Tapia MD at [facility] N/A: Cervical- Thoracic Spine Medtronic Inc 02/10/2025 [id number] / / [id number] [employer] Graft Bone Magnetos 10cc 1-2mm Granules In Moldable Putty 703-038-[id number] - [id number] Implanted:Qty: 1 on 03/13/2024 by Marcio Tapia MD at [facility] N/A: Cervical- Thoracic Spine [employer] [id number] 01/12/2028 [id number] / / [id number] Nuvasive Inc Screw Spine Reline C Lock Open Non-Sterile Latex Free [id number] - [id number] Implanted:Qty: 14 on 03/13/2024 by Marcio Tapia MD at [facility] N/A: Cervical- Thoracic Spine Nuvasive Inc [id number] / / Nuvasive Inc Screw Spine Reline C Ma 3.5x16mm Non-Sterile Latex Free [id number] - [id number] Implanted:Qty: 8 on 03/13/2024 by Marcio Tapia MD at [facility] N/A: Cervical- Thoracic Spine Nuvasive Inc [id number] / / Nuvasive Inc Reline C Screw 5.5x35mm Reduction Thor [id number] - [id number] Implanted:Qty: 4 on 03/13/2024 by Marcio Tapia MD at [facility] N/A: Cervical- Thoracic Spine Nuvasive Inc [id number] / / Nuvasive Inc Reline C Screw 3.5x28mm Reduction Fa [id number] - [id number] Implanted:Qty: 2 on 03/13/2024 by Marcio Tapia MD at [facility] N/A: Cervical- Thoracic Spine Nuv[employer] Inc [id number] / / Procedures Procedure Name Priority Date/Time [...] by: Gopal Calderon M.D. us Carol Monae COUNTY HOME DEMONSTRATOR IMG XR PROCEDURES Final Result * eGFR [...] BLOOD ORDERABLE S Final Result [facility] [place] [address] [facility] Department [place] [address] * (ABNORMAL) Hemoglobin A1c (03/11/2024 8:59 PM CDT) Hgb A1C 8.9(H) 4.0 - 5.6 % Estimated Average Glucose 209 mg/dL [facility] Comment: The ADA recommends reporting [...] BLOOD ORDERABLES Final Result Performing Organization Address [facility] Co de Phone Number [place] [address] * Hepatitis panel, acute Blood (03/09/2024 7:59 PM CDT) Hep A IgM Nonreactive Nonreactive Hep B core IgM Nonreactive Nonreactive [facility] Hep C Ab Nonreactive Nonreactive [facility] Comment:Antibodies to HCV no t detected. Does NOT exclude the possibility of recent exposure to HCV. Current interpretive data was last revised on 22 HepBsAg Nonreactive Nonreactive [facility] Blood 03/09/2024 7:59 PM CDT 03/09/2024 8:07 PM CDT Chadd Toledo DO LAB MICROBIOLOGY - GE NERAL ORDERABLES Final Result Performing Organization Address [facility] Co de Phone Number [facility] [place] [address] from Last 3 Months or Most Recently Relevant to Health Maintenance Insurance [facility] MEDICARE ADVANTAGE [employer] MEDICARE ADVANTAGE Advance Directives For more information, please contact: [phone] * Full Code (Latest Code Status on File) Date Activated Date Inactivated Comments 04/16/2024 7:23 AM 04/18/2024 8:03 PM * Full Code Date Activated Date Inactivated Comments 03/09/2024 6:10 AM 04/08/2024 7:32 PM Care Teams Live Source Operator Relationship Specialty Start Date End Date No, Physician PCP - General 04/10/24
--- OUTSIDE RECORDS SUMMARY | 2024-11-15 09:54 | XMS_ITS | Clinical Summary ---
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
--- OUTSIDE RECORDS SUMMARY | 2024-11-15 09:54 | XMS_ITS | Clinical Summary ---
Author Organization [facility] Address [address] [place] [address] Phone Care Team Providers Care Protective Services Case Worker Name Role Phone Nayana Garber [facility] Primary Care Provider + Allergies No [...] 11/12/2024 11:00 AM CDT Home Care Visit [address] [address] Perlita Wilson LPN SN - WOUND VISIT 11/05/2024 10:00 AM CDT Home Care Visit [address] [address] Perlita Wilson LPN SN - WOUND VISIT 10/29/2024 Plan of Care Documentation [address] [address] 10/28/2024 10:00 AM CDT Home Care Visit [address] [address] Serena Zaman RN SN - OASIS RECERTIFICATION 10/24/2024 1:00 PM CDT Home Care Visit [address] [address] Serena Zaman, JULISSA SN - WOUND VISIT 10/07/2024 10:00 AM TEXTILE WORKER Home Care Visit [address] [address] Sheyla Mckeon RN SN - WOUND VISIT 10/01/2024 Home Care Visit [address] [address] Napoleon Weinstein, RN TELEPHONE ENCOUNTER 09/30/2024 10:30 AM TEXTILE WORKER Home Care Visit [address] [address] Napoleon Weinstein, RN SN - WOUND VISIT 09/26/2024 2:30 PM TEXTILE WORKER Home Care Visit [address] [address] Napoleon Weinstein, RN SN - WOUND VISIT 09/26/2024 12:30 PM TEXTILE WORKER Home Care Visit [address] [address] Bree Raman OTA OT - DISCIPLINE DISCHARGE 09/26/2024 Home Care Visit [address] [address] Tanya Meléndez OT OT - DISCHARGE SUMMARY 09/26/2024 Home Care Visit [address] [address] Bree Raman OTA CASE COMMUNICATION 09/26/2024 Travel 09/22/2024 2:30 PM TEXTILE WORKER Home Care Visit [address] [address] Napoleon Weinstein, RN SN - WOUND VISIT 09/22/2024 1:30 PM TEXTILE WORKER Home Care Visit [address] [address] June Abreu, PT PT - DISCIPLINE DISCHARGE 09/19/2024 1:30 PM TEXTILE WORKER Home Care Visit [address] [address] Maritza Mena, CRISIS THERAPIST PT - HOME VISIT 09/19/2024 9:30 AM TEXTILE WORKER Home Care Visit [address] [address] Bree Raman OTA OT - HOME VISIT 09/16/2024 1:30 PM TEXTILE WORKER Home Care Visit [address] [address] Perlita Wilson LPN SN - WOUND VISIT 09/16/2024 12:30 PM TEXTILE WORKER Home Care Visit [address] [address] Bree Raman OTA RESCHEDULED MISSED VISIT 09/16/2024 Home Care [place] [address] [place] [address] Frida Spence, CRISIS THERAPIST TELEPHONE ENCOUNTER 09/16/2024 Home Care Visit [address] [address] Napoleon Weinstein, RN TELEPHONE ENCOUNTER 09/16/2024 Home Care Visit [address] [address] Napoleon Weinstein, RN TELEPHONE ENCOUNTER 09/16/2024 Home Care Visit [address] [address] Napoleon Weinstein, RN TELEPHONE ENCOUNTER 09/15/2024 2:30 PM TEXTILE WORKER Home Care Visit [address] [address] Frida Spence, CRISIS THERAPIST RESCHEDULED MISSED VISIT 09/15/2024 Home Care Visit [address] [address] Napoleon Weinstein, RN TELEPHONE ENCOUNTER 09/15/2024 Travel 09/12/2024 2:45 PM TEXTILE WORKER Home Care Visit [address] [address] Tanya Meléndez, OT OT - NIELSEN SUPERVISORY VISIT 09/12/2024 Home Care Visit [address] [address] Napoleon Weinstein, RN TELEPHONE ENCOUNTER 09/11/2024 4:30 PM TEXTILE WORKER Home Care Visit [address] [address] Napoleon Weinstein, RN SN - WOUND VISIT 09/11/2024 2:00 PM TEXTILE WORKER Home Care Visit [address] [address] Frida Spence, CRISIS THERAPIST PT - HOME VISIT 09/11/2024 Travel 09/10/2024 9:30 AM TEXTILE WORKER Home Care Visit [address] [address] Bree Raman, SENIOR DB2 SYSTEMS PROGRAMMER OT - HOME VISIT 09/10/2024 Home Care Visit [address] [address] Frida Spence, CRISIS THERAPIST TELEPHONE ENCOUNTER 09/10/2024 Home Care Visit [address] [address] Napoleon Weinstein, RN TELEPHONE ENCOUNTER 09/09/2024 12:30 PM TEXTILE WORKER Home Care Visit [address] [address] Frida Spence, CRISIS THERAPIST PT - HOME VISIT 09/09/2024 Travel 09/09/2024 [address]phone [place] [id number] [place] [address] Nikole Ca RN 09/08/2024 2:00 PM TEXTILE WORKER Home Care Visit [address] [address] Napoleon Weinstein, RN SN - WOUND VISIT 09/06/[address] [address] Sabrina Concepcion RN follow up 09/05/2024 11:00 AM TEXTILE WORKER Home Care Visit [address] [address] Bree Raman, SENIOR DB2 SYSTEMS PROGRAMMER OT - HOME VISIT 09/05/[address] [address] Kasey Camacho RN Follow-up 09/05/2024 Home Care Visit [address] [address] Mita Bullard RN SN - WOUND/OSTOMY CONSULTATION 09/05/2024 Home Care Visit [address] [address] Bree Raman, MILAD CASE COMMUNICATION 09/05/2024 Home Care Visit [address] [place] [address] Napoleon Weinstein, RN TELEPHONE ENCOUNTER 09/04/2024 1:00 AM TEXTILE WORKER Home Care Visit [address] [address] Napoleon Weinstein, RN SN - WOUND VISIT 09/03/2024 12:30 PM TEXTILE WORKER Home Care Visit [address] [address] Maritza Mena, CRISIS THERAPIST PT - HOME VISIT 09/03/2024 Home Care Visit [address] [address] Ruba Ware, NURSE'S ASSISTANT TELEPHONE ENCOUNTER 09/03/2024 Home Care Visit [address] [address] June Abreu, PT TELEPHONE ENCOUNTER 09/03/2024 Home Care Visit [address] [address] June Abreu, PT TELEPHONE ENCOUNTER 09/02/2024 11:45 AM TEXTILE WORKER Home Care Visit [address] [address] Tanya Meléndez OT OT - INITIAL EVALUATION 09/01/2024 11:30 AM TEXTILE WORKER Home Care Visit [address] [address] Napoleon Weinstein, RN SN - WOUND VISIT 09/01/2024 10:00 AM TEXTILE WORKER Home Care Visit [address] [address] June Abreu, PT PT - INITIAL EVALUATION 08/30/2024 1:00 PM TEXTILE WORKER Home Care Visit [address] [address] Sheyla Mckeon, RN SN - OASIS START OF CARE 08/30/2024 Plan of Care Documentation [address] [address] 08/30/2024 Telephone [facility] [address] [place] [address] Roshan De, RN Appointment 08/28/2024 [facility] [address] [place] [address] Carol Bowers, RN TELEPHONE ENCOUNTER 08/19/2024 12:37 PM TEXTILE WORKER Anesthesia Event [address] [address] Reuben Tripp MD Mitchell, Christopher Dane, APRN, COMPUTER LABORATORY TECHNICIAN 08/19/2024 11:45 AM TEXTILE WORKER - 08/19/2024 12:45 PM TEXTILE WORKER Surgery [address] [phone] Eddie Raymond MD Irrigation and debridement left foot 08/16/2024 7:23 PM TEXTILE WORKER - 08/26/2024 5:00 PM TEXTILE WORKER Hospital Encounter [facility] [address] [place] [phone] Verenice Thibodeaux MD Vallumsetla, Nishanth, MD Hajal, Rizan, MD Elangwe, Patrick, MD Sundaram, Sum[place], MD Karkatzounis, Ioannis, MD Kadia, Yannick Atehleme, MD Sepsis (HCC) Discharge Disposition: Home Health Care Svc from Last 3 Months Social History Tobacco Use Types Packs/Day Years Used Date Smoking Tobacco: Never Assessed [facility] Utilities Answer Date Recorded In the past 12 months has [employer], gas, oil, or water [employer] threatened to shut off services in your [...] week 08/16/2024 How often do you attend [facility] or sikh services? 1 to 4 times per year 08/16/2024 Do you belong to any clubs o r organizations such as sabianism groups, unions, fraternal or athletic groups, or [...] and heating? Not hard at all 08/16/2024 [facility] - Occupational Stress [...] in the past [address] [facility], were you homeless or living in a chcf (including now)? No 08/16/2024 Comments Unknown Sex [...] 95.3 kg (210 lb) 09/02/2024 12:33 PM TEXTILE WORKER Height 180.3 cm (5' 11 ) 09/02/2024 12:33 PM TEXTILE WORKER Body Mass Index 29.29 09/02/2024 12:33 PM TEXTILE WORKER Plan of Treatment Upcoming Encounters Date Type Department Care Team (Late st Contact Info) Description 11/19/2024 1:00 AM CDT Home Care Visit [address] [address] Serena Zaman RN ID 11/26/2024 1:00 AM CDT Home Care Visit [address] [address] Serena Zaman RN ID 12/03/2024 1:00 AM CDT Home Care Visit [address] [address] Serena Zaman RN ID 12/10/2024 1:00 AM CDT Home Care Visit [address] [address] Serena Zaman RN ID 12/17/2024 1:00 AM CDT Home Care Visit [facility] [address] [place] [address] Serena Zaman RN ID 12/24/2024 1:00 AM CDT Appointment [facility] [address] [place] [address] Serena Zaman RN ID Health Maintenance Due Date Last Done Comments [...] Comments POCT GLUCOSE Routine 08/26/2024 5:18 PM TEXTILE WORKER POCT GLUCOSE Routine 08/26/2024 12:15 PM TEXTILE WORKER POCT GLUCOSE Routine 08/26/2024 7:44 AM TEXTILE WORKER CBC WITH AUTO DIFFERENTIAL Routine 08/26/2024 5:34 AM TEXTILE WORKER CMP (COMPREHENSIVE METABOLIC PANEL) Routine 08/26/2024 5:34 AM TEXTILE WORKER COMPLETE BLOOD COUNT (CBC) WITH DIFF Routine 08/26/2024 5:34 AM TEXTILE WORKER POCT GLUCOSE Routine 08/25/2024 9:10 PM TEXTILE WORKER POCT GLUCOSE Routine 08/25/2024 4:41 PM TEXTILE WORKER POCT GLUCOSE Routine 08/25/2024 11:42 AM TEXTILE WORKER POCT GLUCOSE Routine 08/25/2024 7:01 AM TEXTILE WORKER CBC WITH AUTO DIFFERENTIAL Routine 08/25/2024 6:00 AM TEXTILE WORKER BASIC METABOLIC PANEL W/ CALCIUM TOTAL Routine 08/25/2024 6:00 AM TEXTILE WORKER COMPLETE BLOOD COUNT (CBC) WITH DIFF Routine 08/25/2024 6:00 AM TEXTILE WORKER POCT GLUCOSE Routine 08/24/2024 9:13 PM TEXTILE WORKER POCT GLUCOSE Routine 08/24/2024 5:43 PM TEXTILE WORKER POCT GLUCOSE Routine 08/24/2024 12:33 PM TEXTILE WORKER US LEFT DUPLEX LOWER EXTREMITY VEINS Stat with Interpretation 08/24/2024 11:23 AM TEXTILE WORKER POCT GLUCOSE Routine 08/24/2024 7:41 AM TEXTILE WORKER CBC WITH AUTO DIFFERENTIAL Routine 08/24/2024 4:58 AM TEXTILE WORKER BASIC METABOLIC PANEL W/ CALCIUM TOTAL STAT 08/24/2024 4:58 AM TEXTILE WORKER COMPLETE BLOOD COUNT (CBC) WITH DIFF Routine 08/24/2024 4:58 AM TEXTILE WORKER POCT GLUCOSE Routine 08/23/2024 8:27 PM TEXTILE WORKER POCT GLUCOSE Routine 08/23/2024 5:45 PM TEXTILE WORKER POCT GLUCOSE Routine 08/23/2024 10:43 AM TEXTILE WORKER POCT GLUCOSE Routine 08/23/2024 7:59 AM TEXTILE WORKER CBC WITH AUTO DIFFERENTIAL Routine 08/23/2024 5:01 AM TEXTILE WORKER BASIC METABOLIC PANEL W/ CALCIUM TOTAL STAT 08/23/2024 5:01 AM TEXTILE WORKER COMPLETE BLOOD COUNT (CBC) WITH DIFF Routine 08/23/2024 5:01 AM TEXTILE WORKER POCT GLUCOSE Routine 08/22/2024 9:07 PM TEXTILE WORKER POCT GLUCOSE Routine 08/22/2024 5:18 PM TEXTILE WORKER POCT GLUCOSE Routine 08/22/2024 11:48 AM TEXTILE WORKER POCT GLUCOSE Routine 08/22/2024 8:28 AM TEXTILE WORKER CBC WITH AUTO DIFFERENTIAL Routine 08/22/2024 4:36 AM TEXTILE WORKER VANCOMYCIN Timed 08/22/2024 4:36 AM TEXTILE WORKER BASIC METABOLIC PANEL W/ CALCIUM TOTAL STAT 08/22/2024 4:36 AM TEXTILE WORKER COMPLETE BLOOD COUNT (CBC) WITH DIFF Routine 08/22/2024 4:36 AM TEXTILE WORKER PULMONARY TEST 08/22/2024 12:00 AM TEXTILE WORKER POCT GLUCOSE Routine 08/21/2024 8:52 PM TEXTILE WORKER POCT GLUCOSE Routine 08/21/2024 5:19 PM TEXTILE WORKER POCT GLUCOSE Routine 08/21/2024 12:20 PM TEXTILE WORKER POCT GLUCOSE Routine 08/21/2024 7:46 AM TEXTILE WORKER CBC WITH AUTO DIFFERENTIAL Routine 08/21/2024 4:21 AM TEXTILE WORKER CMP (COMPREHENSIVE METABOLIC PANEL) Routine 08/21/2024 4:21 AM TEXTILE WORKER COMPLETE BLOOD COUNT (CBC) WITH DIFF Routine 08/21/2024 4:21 AM TEXTILE WORKER POCT GLUCOSE Routine 08/20/2024 9:05 PM TEXTILE WORKER POCT GLUCOSE Routine 08/20/2024 7:39 PM TEXTILE WORKER POCT GLUCOSE Routine 08/20/2024 1:35 PM TEXTILE WORKER POCT GLUCOSE Routine 08/20/2024 9:39 AM TEXTILE WORKER CBC WITH AUTO DIFFERENTIAL Routine 08/20/2024 4:17 AM TEXTILE WORKER PHOSPHORUS (PO4) Routine 08/20/2024 4:17 AM TEXTILE WORKER CMP (COMPREHENSIVE METABOLIC PANEL) Routine 08/20/2024 4:17 AM TEXTILE WORKER COMPLETE BLOOD COUNT (CBC) WITH DIFF Routine 08/20/2024 4:17 AM TEXTILE WORKER POCT GLUCOSE Routine 08/19/2024 9:34 PM TEXTILE WORKER POCT GLUCOSE Routine 08/19/2024 5:29 PM TEXTILE WORKER POCT GLUCOSE Routine 08/19/2024 1:34 PM TEXTILE WORKER CULTURE, AEROBIC ONLY Routine 08/19/2024 1:30 PM TEXTILE WORKER CULTURE, ANAEROBIC Routine 08/19/2024 1: 30 PM TEXTILE WORKER CULTURE, ANAEROBIC WITH CULTURE, AEROBIC Routine 08/19/2024 1:30 PM TEXTILE WORKER SMEAR, GRAM STAIN Routine 08/19/2024 1:3 0 PM TEXTILE WORKER CULTURE, AEROBIC ONLY Routine 08/19/2024 1:01 PM TEXTILE WORKER CULTURE, ANAEROBIC Routine 08/19/2024 1: 01 PM TEXTILE WORKER CULTURE, ANAEROBIC WITH CULTURE, AEROBIC Routine 08/19/2024 1:01 PM TEXTILE WORKER SMEAR, GRAM STAIN Routine 08/19/2024 1:0 1 PM TEXTILE WORKER IRRIGATION & DEBRIDEMENT LOWER EXTREMITY 08/19/2024 12:37 PM TEXTILE WORKER ULCER, LEFT FOOT US ANKLE/BRACHIAL INDICES Routine 08/19/2024 11:03 AM TEXTILE WORKER POCT GLUCOSE Routine 08/19/2024 8:45 AM TEXTILE WORKER CBC WITH AUTO DIFFERENTIAL Routine 08/19/2024 5:21 AM TEXTILE WORKER CMP (COMPREHENSIVE METABOLIC PANEL) Routine 08/19/2024 5:21 AM TEXTILE WORKER MAGNESIUM (MG) STAT 08/19/2024 5:21 AM TEXTILE WORKER PHOSPHORUS (PO4) STAT 08/19/2024 5:21 AM TEXTILE WORKER VANCOMYCIN Timed 08/19/2024 5:21 AM TEXTILE WORKER COMPLETE BLOOD COUNT (CBC) WITH DIFF Routine 08/19/2024 5:21 AM TEXTILE WORKER POCT GLUCOSE Routine 08/18/2024 5:06 PM TEXTILE WORKER PROCALCITONIN STAT 08/18/2024 4:23 PM TEXTILE WORKER POCT GLUCOSE Routine 08/18/2024 1:08 PM TEXTILE WORKER XR HUMERUS RIGHT Routine 08/18/2024 12:23 PM TEXTILE WORKER ADULT TRANS THORACIC ECHO 2D COMPLT WWO CONT Routine 08/18/2024 11:07 AM TEXTILE WORKER POCT GLUCOSE Routine 08/18/2024 9:02 AM TEXTILE WORKER CBC WITH AUTO DIFFERENTIAL Routine 08/18/2024 4:42 AM TEXTILE WORKER MAGNESIUM (MG) Routine 08/18/2024 4:42 AM TEXTILE WORKER HEPATIC FUNCTION PANEL Routine 08/18/2024 4:42 AM TEXTILE WORKER BASIC METABOLIC PANEL W/ CALCIUM TOTAL STAT 08/18/2024 4:42 AM TEXTILE WORKER COMPLETE BLOOD COUNT (CBC) WITH DIFF Routine 08/18/2024 4:42 AM TEXTILE WORKER POCT GLUCOSE Routine 08/17/2024 9:16 PM TEXTILE WORKER POCT GLUCOSE Routine 08/17/2024 5:15 PM TEXTILE WORKER THYROID SCREEN WITH REFLEX Routine 08/17/2024 3:17 PM TEXTILE WORKER THYROXINE (T4) FREE Routine 08/17/2024 3 :17 PM TEXTILE WORKER THYROID SCREEN WITH REFLEX Routine 08/17/2024 3:17 PM TEXTILE WORKER US BILATERAL DUPLEX LOWER EXTREMITY VEINS STAT 08/17/2024 2:18 PM TEXTILE WORKER LACTIC ACID (LACTATE) STAT 08/17/2024 1:45 PM TEXTILE WORKER RSV,SARS-COV-2,INFL UENZA A&B BY PCR Routine 08/17/2024 1:18 PM TEXTILE WORKER POCT GLUCOSE Routine 08/17/2024 11:52 AM TEXTILE WORKER POCT GLUCOSE Routine 08/17/2024 7:44 AM TEXTILE WORKER CBC WITH AUTO DIFFERENTIAL Routine 08/17/2024 4:41 AM TEXTILE WORKER VANCOMYCIN Timed 08/17/2024 4:41 AM TEXTILE WORKER BASIC METABOLIC PANEL W/ CALCIUM TOTAL STAT 08/17/2024 4:41 AM TEXTILE WORKER CREATINE KINASE (CK) TOTAL Routine 08/17/2024 4:41 AM TEXTILE WORKER COMPLETE BLOOD COUNT (CBC) WITH DIFF Routine 08/17/2024 4:[address] BILAT LOWER EXTREMITY W/ CONTRAST Routine 08/17/2024 1:37 AM TEXTILE WORKER BASIC METABOLIC PANEL W/ CALCIUM TOTAL STAT 08/17/2024 12:14 AM TEXTILE WORKER PROLACTIN Routine 08/17/2024 12:14 AM TEXTILE WORKER LACTIC ACID (LACTATE) STAT 08/17/2024 12:14 AM TEXTILE WORKER POCT GLUCOSE Routine 08/17/2024 12:01 AM TEXTILE WORKER RHYTHM STRIP 08/17/2024 12:00 AM TEXTILE WORKER HEMOGLOBIN A1C W/ ESTIMATED GLUCOSE Routine 08/16/2024 8:51 PM TEXTILE WORKER from Last 3 Months or Most Recently Relevant to Health Maintenance Results * (ABNORMAL) POCT Glucose (08/26/2024 5:18 PM TEXTILE WORKER) Only the most recent of39 resultswithin the time period is included. GLUCOSE,BEDSID E POCT 168(H) 70 - 99 mg/dL 08/26/2024 5:44 PM TEXTILE WORKER [facility] Blood 08/26/2024 5:18 PM TEXTILE WORKER 08/26/2024 5:44 PM TEXTILE WORKER us None Provider POINT OF CARE TESTING Final Resu lt [facility] [address] [place] [address], [place] [phone] * (ABNORMAL) CBC with Auto Differential (08/26/2024 5:34 AM TEXTILE WORKER) Only the most recent of10 resultswithin the time period is included. WBC 6.30 4.00 - 12.00 10(3)/mcL 08/26/2024 5:52 AM TEXTILE WORKER [facility] RBC 3.53(L) 3.80 - 5.30 10(6)/mcL 08/26/2024 5:52 AM [facility] HEMOGLOBIN (HGB) 10.3(L) 12.0 - 15.8 g/dL 08/26/2024 5:52 AM [facility] HEMATOCRIT (HCT) 30.7(L) 36.0 - 47.0 % 08/26/2024 5:52 AM TEXTILE WORKER [facility] MCV 86.8 82.0 - 96.0 fL 08/26/2024 5:52 AM TEXTILE WORKER [facility] MCH 29.2 26.0 - 34.0 pg 08/26/2024 5:52 AM TEXTILE WORKER [facility] MCHC 33.7 31.0 - 36.0 g/dL 08/26/2024 5:52 AM TEXTILE WORKER [facility] PLATELET COUNT 194 140 - 440 10(3)/mcL 08/26/2024 5:52 AM TEXTILE WORKER [facility] RDW 16.6(H) 11.8 - 15.5 % 08/26/2024 5:52 AM TEXTILE WORKER [facility] MPV 7.2(L) 9.7 - 12.4 fL 08/26/2024 5:52 AM TEXTILE WORKER [facility] NEUTROPHILS 68.0 47.0 - 73.0 % 08/26/2024 5:52 AM TEXTILE WORKER [facility] LYMPHOCYTES 18.8 18.0 - 42.0 % 08/26/2024 5:52 AM [facility] MONOCYTES 11.6 4.0 - 12.0 % 08/26/2024 5:52 AM TEXTILE WORKER [facility] EOSINOPHILS 1.0 0.0 - 5.0 % 08/26/2024 5:52 AM TEXTILE WORKER [facility] BASOPHILS 0.6 0.0 - 1.0 % 08/26/2024 5:52 AM TEXTILE WORKER [facility] ABSOLUTE NEUTROPHILS 4.30 1.60 - 7.70 10(3)/[facility] 08/26/2024 5:52 AM [facility] ABSOLUTE LYMPHOCYTES 1.20(L) 1.30 - 3.20 10(3)/[facility] 08/26/2024 5:52 AM TEXTILE WORKER [facility] ABSOLUTE MONOCYTES 0.70 0.20 - 1.00 10(3)/[facility] 08/26/2024 5:52 AM TEXTILE WORKER [facility] ABSOLUTE EOSINOPHIL 0.10 0.00 - 0.40 10(3)/[facility] 08/26/2024 5:52 AM [facility] ABSOLUTE BASOPHILS 0.00 0.00 - 0.10 10(3)/[facility] 08/26/2024 5:52 AM [facility] NRBC PER 100 WBC 0 08/26/19 5:52 AM [facility] Blood Venipuncture / Unknown 08/26/2024 5:34 AM TEXTILE WORKER 08/26/2024 5:34 AM TEXTILE WORKER us Verenice Thibodeaux MD HEMATOLOGY ORDERABLES Final Resu lt [facility] [address] [place] [address], [place] [phone] * (ABNORMAL) CMP (Comprehensive Metabolic Panel) (08/26/2024 5:34 AM TEXTILE WORKER) Only the most recent of4 resultswithin the time period is included. SODIUM 131(L) 136 - 145 mmol/L 08/26/2024 6:23 AM [facility] POTASSIUM 4.2 3.5 - 5.1 mmol/L 08/26/2024 6:23 AM [facility] CHLORIDE 102 98 - 107 mmol/L 08/26/2024 6:23 AM [facility] CO2, VENOUS 22 22 - 30 mmol/L 08/26/2024 6:23 AM [facility] ANION GAP 7.0 <18.0 mmol/L 08/26/2024 6:23 AM [facility] GLUCOSE 205(H) 70 - 99 mg/dL 08/26/2024 6:23 AM [facility] BUN 11 10 - 20 mg/dL 08/26/2024 6:23 AM [facility] CREATININE, BLOOD 0.80 0.60 - 1.00 mg/dL 08/26/2024 6:23 AM [facility] BUN/CREATININE RATIO 14 12 - 20 ratio 08/26/2024 6:23 AM [facility] TOTAL PROTEIN 8.5(H) 6.3 - 8.2 g/dL 08/26/2024 6:23 AM [facility] ALBUMIN 2.5(L) 3.5 - 5.0 g/dL 08/26/2024 6:23 AM [facility] A/G RATIO 0.4(L) 1.0 - 2.2 08/26/2024 6:23 AM [facility] CALCIUM 8.2(L) 8.7 - 10.5 mg/dL 08/26/2024 6:23 AM [facility] T BILI 0.7 0.2 - 1.2 mg/dL 08/26/2024 6:23 AM [facility] SGOT (AST) 29 5 - 34 U/L 08/26/2024 6:23 AM [facility] SGPT (ALT) 13 0 - 55 U/L 08/26/2024 6:23 AM TEXTILE WORKER [facility] ALKALINE PHOSPHATASE 141 40 - 150 U/L 08/26/2024 6:23 AM TEXTILE WORKER [facility] GFR, ESTIMATED >60 >=60 08/26/2024 6:23 AM [facility] Comment: Creatinine Clearance is the preferred criteria for selecting drug dose adjustments in renally impaired patients. The GFR is provided as additional pertinent clinical information. GFR is reported in mL/min/1.73 sq m. Calculation based on the Chronic Kidney Disease Epidemiology Collaboration (CKD- EPI) equation refit without adjustment for race. GFR, EST. >60 >=60 025 6:23 AM TEXTILE WORKER [facility] GFR, EST. NONAFRICAN >60 >=60 08/26/2024 6:23 AM [facility] Blood Venipuncture / Unknown 08/26/2024 5:34 AM TEXTILE WORKER 08/26/2024 5:34 AM TEXTILE WORKER us Tyler Fermin MD CHEMISTRY ORDERABLES Fin al Result [facility] [address] [place] [address], [place] [phone] * (ABNORMAL) Basic Metabolic Panel w/ Calcium Total (08/25/2024 6:00 AM TEXTILE WORKER) Only the most recent of7 resultswithin the time period is included. SODIUM 133(L) 136 - 145 mmol/L 08/25/2024 7:49 AM TEXTILE WORKER [facility] POTASSIUM 4.0 3.5 - 5.1 mmol/L 08/25/2024 7:49 AM [facility] CHLORIDE 105 98 - 107 mmol/L 08/25/2024 7:49 AM [facility] CO2, VENOUS 22 22 - 30 mmol/L 08/25/2024 7:49 AM [facility] ANION GAP 6.0 <18.0 mmol/L 08/25/2024 7:49 AM [facility] GLUCOSE 185(H) 70 - 99 mg/dL 08/25/2024 7:49 AM [facility] BUN 8(L) 10 - 20 mg/dL 08/25/2024 7:49 AM [facility] CREATININE, BLOOD 0.71 0.60 - 1.00 mg/dL 08/25/2024 7:49 AM [facility] BUN/CREATININE RATIO 11(L) 12 - 20 ratio 08/25/2024 7:49 AM [facility] CALCIUM 8.4(L) 8.7 - 10.5 mg/dL 08/25/2024 7:49 AM [facility] GFR, ESTIMATED >60 >=60 08/25/2024 7:49 AM [facility] Comment: Creatinine Clearance is the preferred criteria for selecting drug dose adjustments in renally impaired patients. The GFR is provided as additional pertinent clinical information. GFR is reported in mL/min/1.73 sq m. Calculation based on the Chronic Kidney Disease Epidemiology Collaboration (CKD- EPI) equation refit without adjustment for race. GFR, EST. >60 >=60 025 7:49 AM [facility] GFR, EST. NONAFRICAN >60 >=60 08/25/2024 7:49 AM [facility] Blood Venipuncture / Unknown 08/25/2024 6:00 AM TEXTILE WORKER 08/25/2024 6:53 AM TEXTILE WORKER us Malik Marshall MD CHEMISTRY ORDERABLES Final Res ult [facility] [address] [place] [address], [place] [phone] * US LEFT DUPLEX LOWER EXTREMITY VEINS (08/24/2024 11:23 AM TEXTILE WORKER) Anatomical Region Laterality Modality vascular Left Ultrasound 08/24/2024 11:2 3 AM TEXTILE WORKER Impressions 08/24/2024 11:38 AM TEXTILE WORKER IMPRESSION: 1. No deep venous thrombosis in the left lower extremity. Narrative 08/24/2024 11:38 AM TEXTILE WORKER DICTATING PHYSICIAN: Snehal Nicholson D.O. EXAM: Left [...] the left lower extremity. Malik Marshall MD [facility] [place] US ORDERABLES Final Result * Vancomycin Level (08/22/2024 4:36 AM TEXTILE WORKER) Only the most recent of3 resultswithin the time period is included. VANCOMYCIN RESULT 23 20 - 40 mcg/mL 08/22/2024 6:06 AM TEXTILE WORKER [facility] Blood Venipuncture / Unknown 08/22/2024 4:36 AM TEXTILE WORKER 08/22/2024 5:26 AM TEXTILE WORKER Chadd Bardales MD CHEMISTRY ORDERABLES Final Re sult Performing Organization Address [facility]/ZIP Co de Phone Number [facility] [address] [place] [address], * PULMONARY TEST (08/22/2024 12:00 AM TEXTILE WORKER) 08/22/2024 us Provider Scan PFT ORDERABLES Final Result Performing Organization Address [facility]/ZIP Co de Phone Number SCAN * PHOSPHORUS (PO4) (08/20/2024 4:17 AM TEXTILE WORKER) Only the most recent of2 resultswithin the time period is included. PHOSPHORUS 2.7 2.5 - 4.5 mg/dL 08/20/2024 6:24 AM TEXTILE WORKER [facility] Blood Venipuncture / Unknown 08/20/2024 4:17 AM TEXTILE WORKER 08/20/2024 6:02 AM TEXTILE WORKER Garth Delaney MD CHEMISTRY ORDERABLES Final Resul t Performing Organization Address [facility] de Phone Number [facility] [address] [place] [address], * Smear, Gram Stain (08/19/2024 1:30 PM TEXTILE WORKER) Only the most recent of2 resultswithin the time period is included. GRAM STAIN No epithelial cells 08/20/2024 3:00 AM TEXTILE WORKER [facility] GRAM STAIN No Segmented Neutrophils seen 08/20/2024 3:00 AM TEXTILE WORKER [facility] GRAM STAIN No Organisms seen 08/20/2024 3:00 AM TEXTILE WORKER [facility] Culture FOOT STRUCTURE / Unknown Non-Phlebotomy Collection / Unknown 08/19/2024 1:30 PM TEXTILE WORKER 08/19/2024 2:05 PM TEXTILE WORKER Eddie Raymond MD MICROBIOLOGY - GENERAL OR DERABLES Final Result Performing Organization Address City/[facility] Co de Phone Number [facility] [address] [place] [address], [place] * CULTURE, ANAEROBIC (08/19/2024 1:30 PM TEXTILE WORKER) Only the most recent of2 resultswithin the time period is included. CULTURE RESULTS NO ANAEROBES ISOLATED 08/25/2024 7:18 AM TEXTILE WORKER [facility] Culture FOOT STRUCTURE / Unknown Non-Phlebotomy Collection / Unknown 08/19/2024 1:30 PM TEXTILE WORKER Eddie Raymond MD MICROBIOLOGY - GENERAL OR DERABLES Final Result Performing Organization Address [facility] Co de Phone Number [facility] [address] [place] [address], [place] * CULTURE, AEROBIC (08/19/2024 1:30 PM TEXTILE WORKER) Only the most recent of2 resultswithin the time period is included. CULTURE RESULTS No growth final 08/23/2024 6:29 AM TEXTILE WORKER [facility] Culture FOOT STRUCTURE / Unknown Non-Phlebotomy Collection / Unknown 08/19/2024 1:30 PM TEXTILE WORKER Eddie Raymond MD MICROBIOLOGY - GENERAL OR DERABLES Final Result Performing Organization Address [facility] de Phone Number [facility] [address] [place] [address], [place] * US ANKLE/BRACHIAL INDICES (08/19/2024 11:03 AM TEXTILE WORKER) Anatomical Region Laterality Modality vascular N/A Ultrasound 08/19/2024 11:0 3 AM TEXTILE WORKER Impressions 08/19/2024 11:24 AM TEXTILE WORKER IMPRESSION: 1. Right: The resting LUIS ALBERTO is 0.84, mild ischemia. 2. Left: The resting LUIS ALBERTO is 0.97 which is normal. 3. Waveforms at the ankle are normal. Narrative 08/19/2024 11:24 AM TEXTILE WORKER DICTATING PHYSICIAN: Darius Henry MD, [facility] EXAM: LUIS ALBERTO's, 08/19/2024 11:09 [...] - 08/19/2024 DICTATING PHYSICIAN: Darius Henry MD, [facility] EXAM: LUIS ALBERTO's, 08/19/2024 11:09 AM [...] Result * MAGNESIUM (MG) (08/19/2024 5:21 AM TEXTILE WORKER) Only the most recent of2 resultswithin the time period is included. MAGNESIUM 1.7 1.6 - 2.6 mg/dL 08/19/2024 7:01 AM TEXTILE WORKER [facility] Blood Venipuncture / Unknown 08/19/2024 5:21 AM TEXTILE WORKER 08/19/2024 6:23 AM TEXTILE WORKER Enrique Floyd MD CHEMISTRY ORDERABLES Fin al Result [facility] [address] [place] [id number], [place] [phone] * (ABNORMAL) Procalcitonin (08/18/2024 4:23 PM TEXTILE WORKER) PROCALCITONIN 9.87(H) <=0.25 ng/mL 08/18/2024 5:14 PM TEXTILE WORKER [facility] Blood Venipuncture / Unknown 08/18/2024 4:23 PM TEXTILE WORKER 08/18/2024 4:42 PM TEXTILE WORKER Narrative [facility] - 08/18/2024 5:14 PM TEXTILE WORKER If the differential diagnosis is systemic bacterial [...] Floyd MD IMMUNOLOGY ORDERABLES Fi nal Result [facility] [address] [place] [address], [place] [phone] * XR HUMERUS RIGHT (08/18/2024 12:23 PM TEXTILE WORKER) Anatomical Region Laterality Modality UPPER EXTREMITY, Humerus Right Digital Radiography 08/18/2024 12:2 3 PM TEXTILE WORKER Impressions 08/18/2024 1:39 PM TEXTILE WORKER IMPRESSION: 1. No acute radiographic abnormality Narrative 08/18/2024 1:39 PM TEXTILE WORKER DICTATING PHYSICIAN: Choco Norris D.O. EXAM: XR [...] 2D COMPLT WWO CONT (08/18/2024 11:07 AM TEXTILE WORKER) AV Peak Grad mmHg 8.76 mmHg RESULTING [...] CARDIO N/A Ultrasound Narrative 08/19/2024 2:10 PM TEXTILE WORKER Transthoracic Echocardiography Report (TTE) Patient name BRYANT Mcdonough 1965 Patient ID (UPI) [id number] Indications: Dyspnea. Study Date08/18/2024 Type of Study: [...] global longitudinal strain (GLS) - 14.8%, utilizing [employer] software. Right Atrium The right atrium size [...] lbs. BMI (BSA) 30.57 kg/m^2 (2.1 m^2) Reel Operator [facility] Room [address] Interpreting Malgorzata Myers Referring Verenice Thibodeaux Physician Physician Annalisa Chowdhury Procedure Note Mukul Fang MD PhD - 08/19/2024 Transthoracic Echocardiography Report (TTE) Patient name BRYANT Argueta.O.B. 1965 Patient ID (UPI) [id number] Indications: Dyspnea. Study Date08/18/2024 Type of Study: [...] lbs. BMI (BSA) 30.57 kg/m^2 (2.1 m^2) Reel Operator [facility] Room [address] Interpreting Malgorzata Myers Referring Verenice Thibodeaux Physician MD Physician Annalisa Chowdhury us Verenice Thibodeaux MD IMG ECHO ORDERABLES Final Result * (ABNORMAL) Hepatic Function Panel (08/18/2024 4:42 AM TEXTILE WORKER) [facility] T BILI 1.5(H) 0.2 - 1.2 mg/dL 08/18/2024 6:05 AM TEXTILE WORKER [facility] BILIRUBIN,DIRECT 0.9(H) 0.0 - 0.5 mg/dL 08/18/2024 6:05 AM TEXTILE WORKER [facility] ALKALINE PHOSPHATASE 83 40 - 150 U/L 08/18/2024 6:05 AM TEXTILE WORKER [facility] SGOT (AST) 88(H) 5 - 34 U/L 08/18/2024 6:05 AM [facility] SGPT (ALT) 39 0 - 55 U/L 08/18/2024 6:05 AM [facility] TOTAL PROTEIN 7.0 6.3 - 8.2 g/dL 08/18/2024 6:05 AM [facility] ALBUMIN 2.5(L) 3.5 - 5.0 g/dL 08/18/2024 6:05 AM [facility] Blood Venipuncture / Unknown 08/18/2024 4:42 AM TEXTILE WORKER 08/18/2024 5:26 AM TEXTILE WORKER Enrique Floyd MD CHEMISTRY ORDERABLES Fin al Result Performing Organization Address [facility]/ZIP Co de Phone Number [facility] [address] [place] [address], [place] [phone] * (ABNORMAL) THYROID SCREEN WITH REFLEX (08/17/2024 3:17 PM TEXTILE WORKER) TSH 0.103(L) 0.300 - 5.000 mIU/L 08/17/2024 3:54 PM [facility] Blood Venipuncture / Unknown 08/17/2024 3:17 PM TEXTILE WORKER 08/17/2024 3:18 PM TEXTILE WORKER Verenice Thibodeaux MD CHEMISTRY ORDERABLES Final Resul t Performing Organization Address [facility]/ZIP Co de Phone Number [facility] [address] [place] [address], [place] [phone] * THYROXINE (T4) FREE (08/17/2024 3:17 PM TEXTILE WORKER) T4 FREE 0.9 0.7 - 1.9 ng/dL 08/18/2024 3:01 PM TEXTILE WORKER [facility] Blood Venipuncture / Unknown 08/17/2024 3:17 PM TEXTILE WORKER 08/17/2024 3:18 PM TEXTILE WORKER us Verenice Thibodeaux MD CHEMISTRY ORDERABLES Final Resul t [facility] [address] [place] [address], [place] * US BILATERAL DUPLEX LOWER EXTREMITY VEINS (08/17/2024 2:18 PM TEXTILE WORKER) Anatomical Region Laterality Modality vascular Bilateral Ultrasound 08/17/2024 2:18 PM TEXTILE WORKER Impressions 08/17/2024 2:31 PM TEXTILE WORKER IMPRESSION: 1. No DVT in the lower extremities. Narrative 08/17/2024 2:31 PM TEXTILE WORKER DICTATING PHYSICIAN: Minnie Farley M.D. EXAMINATION: US [...] (ABNORMAL) Lactic Acid (Lactate) (08/17/2024 1:45 PM TEXTILE WORKER) Only the most recent of2 resultswithin the time period is included. LACTIC ACID 2.7(H) 0.7 - 2.0 mmol/L 08/17/2024 2:02 PM TEXTILE WORKER [facility] Blood Venipuncture / Unknown 08/17/2024 1:45 PM TEXTILE WORKER 08/17/2024 1:47 PM TEXTILE WORKER Verenice Thibodeaux MD CHEMISTRY ORDERABLES Final Resul t [facility] [address] [place] [address], [place] [phone] * RSV,SARS-COV-2,INFLUENZA A&B BY PCR (08/17/2024 1:18 PM TEXTILE WORKER) FLU A Negative Negative [facility] CEPHEID GENEXPERT 08/17/2024 2:05 PM TEXTILE WORKER [facility] FLU B Negative Negative [facility] CEPHEID GENEXPERT 08/17/2024 2:05 PM TEXTILE WORKER [facility] RESP SYNC VIRUS Negative Negative, Invalid [facility]HE[facility] GENEXPERT 08/17/2024 2:05 PM TEXTILE WORKER [facility] SARSCOV2 NOT DETECTED (Reference Range for this test is Not Detected) [facility] CEPHEID GENEXPERT 08/17/2024 2:05 PM TEXTILE WORKER [facility] Comment:This test was perfor med by a Reverse Assistant [employer] PCR Method. Swab NASOPHARYNGEAL SWAB / Unknown Non-Phlebotomy Collection / Unknown 08/17/2024 1:18 PM TEXTILE WORKER 08/17/2024 1:25 PM TEXTILE WORKER Rupa Franklin MD MICROBIOLOGY - GENERAL OR DERABLES Final Result Performing Organization Address City/[facility]/ZIP Co de Phone Number [facility] [address] [place] [address], [place] [phone] * (ABNORMAL) Creatine Kinase (CK) Total (08/17/2024 4:41 AM TEXTILE WORKER) CK (CPK) 1,584(H) 29 - 168 U/L 08/17/2024 5:37 AM TEXTILE WORKER [facility] Blood Venipuncture / Unknown 08/17/2024 4:41 AM TEXTILE WORKER 08/17/2024 4:56 AM TEXTILE WORKER us Verenice Thibodeaux MD HEMATOLOGY ORDERABLES Final Resu lt Performing Organization Address [facility]/ZIP Co de Phone Number [facility] [address] [place] [address], [place] [phone] * CT BILAT LOWER EXTREMITY W/ CONTRAST (08/17/2024 1:37 AM TEXTILE WORKER) Anatomical Region Laterality Modality LOWER EXTREMITY Bilateral Computed Tomogra phy 08/17/2024 1:37 AM TEXTILE WORKER Impressions 08/17/2024 7:52 AM TEXTILE WORKER IMPRESSION: Findings that can be seen with lower leg cellulitis, significantly more pronounced on the left. No well-defined rim-enhancing drainable abscess or soft tissue air. Narrative 08/17/2024 7:52 AM TEXTILE WORKER DICTATING PHYSICIAN: Camron Ku MD. EXAM DATE: 08/17/2024 1:37 AM EXAM: CT BILAT LOWER EXTREMITY W/ CONTRAST COMPARISON: None. INDICATION: Lower leg swelling. PROCEDURE: Axial computed tomographic images of the lower legs were obtained after the administration of 93 mL of Isovue-300 intravenously. 2-dimensional coronal and sagittal reconstructions were performed. PYC=026 mGy-cm. Dose reduction techniques were utilized. FINDINGS: [...] intravenously.2-dimensional coronal and sagittal reconstructions were performed. FGW=[id number]. Dose reduction techniques were utilized. FINDINGS: Diffuse [...] Resu lt * Prolactin (08/17/2024 12:14 AM TEXTILE WORKER) Prolactin 6.2 1.2 - 29.9 ng/mL 08/17/2024 4:08 PM TEXTILE WORKER [facility] Blood Venipuncture / Unknown 08/17/2024 12:14 AM TEXTILE WORKER 08/17/2024 12:14 AM TEXTILE WORKER us Janak Butcher MD CHEMISTRY ORDERABLES Final R esult Performing Organization Address City/[facility]/ZIP Co de Phone Number [facility] [address] [place] [address], [place] * RHYTHM STRIP (08/17/2024 12:00 AM TEXTILE WORKER) 08/17/2024 us Provider Scan IMG ECG ORDERABLES Final Result Performing Organization Address [facility] Co de Phone Number RESULTING AGENCY * (ABNORMAL) Hemoglobin A1C (08/16/2024 8:51 PM TEXTILE WORKER) HGB-A1C 9.4(H) 4.0 - 6.0 % 08/17/2024 4:09 AM TEXTILE WORKER [facility] Est Average Glucose 223.1 mg/dL 08/17/2024 4:09 AM TEXTILE WORKER [facility] Blood Venipuncture / Unknown 08/16/2024 8:51 PM TEXTILE WORKER 08/16/2024 8:53 PM TEXTILE WORKER Narrative [facility] - 08/17/2024 4:09 AM TEXTILE WORKER Specimens containing greater than 5% of Hemoglobin F may result in lower than expected % HbA1c results. us Verenice Thibodeaux MD CHEMISTRY ORDERABLES Final Resul t Performing Organization Address [facility] Co de Phone Number [facility] [address] [place] [address], [place] from Last 3 Months or Most Recently Relevant to Health Maintenance Insurance MEDICAID [place] MEDICARE C [facility] Advance Directives * Full Code (Latest Code Status on File) Date Activated Date Inactivated Comments 08/16/2024 8:15 PM CPR-Full Treatm ent: FULL ARREST: Attempt Resuscitation/CPR wit intubation and mechanical ventilation. PRE-ARREST: Use entire range of life support measures to stabilize the patient. Care Teams Protective Services Case Worker Relationship Specialty Start Date End Date Nayana Garber PAC [address] [place] [address] PCP - General Advanced Practice Nurse 08/17/24
--- OUTSIDE RECORDS SUMMARY | 2024-11-15 09:54 | XMS_ITS | Encounter Summary ---
Author Organization [facility] Health Address [address] [place] [address] Care Team Providers Care Joy Loader Name Role Phone Unavailable Primary Care Provider Unavailabl e Encounter Details Date Type Department Care Team (Late st Contact Info) Description 12/10/2023 Ophth Exam [facility] - Ophthalmology [address] [place] [address] Ho Anthony MD [address] [facility] [place] [address] Social History Tobacco Use Types [...] medical care, and heating? Somewhat hard 12/11/2023 [facility] [place] of Occupat ional Health - Occupational Stress [...] place to sleep or slept in a long term (including now)? No 12/11/2023 Sex and Gender [...]
--- OUTSIDE RECORDS SUMMARY | 2024-11-15 09:54 | XMS_ITS | Encounter Summary ---
Author Organization [facility] Health Address [address] [facility] [place] [address] Care Team Providers Care Dining Room Busser Name Role Phone Unavailable Primary Care Provider Unavailabl e Encounter Details Date Type Department Care Team (Late st Contact Info) Description 12/11/2023 Ophth Exam [facility] - Ophthalmology [address] [place] [phone] Miya Crooks MD [address] [place] [id number] Social History Tobacco Use Types Packs/Day Years [...] medical care, and heating? Somewhat hard 12/11/2023 [facility] [place] of Occupat ional Health - Occupational Stress [...] place to sleep or slept in a group home (including now)? No 12/11/2023 Sex and [...]
--- OUTSIDE RECORDS SUMMARY | 2024-11-15 09:54 | XMS_ITS | Encounter Summary ---
Author Organization [facility] Healthcare Address [address] [place] [address] Care Team Providers Care Night Time Nanny Name Role Phone No, Physician Primary Care Provider [phone] Encounter Details Date Type Department Care Team (Latest Contact Info) Description 11/13/2024 2:35 PM CDT - 11/13/2024 11:59 PM CDT Hospital Encounter [facility] [address] [place] [address] S/P cervical spinal fusion; Right hand weakness Discharge Disposition: Discharge to home or self care Social History Tobacco Use Types Packs/Day Years Used Date Smoking Tobacco: Former Cigarettes [facility] Utilities Answer Date Recorded In the past 12 months has [email or web address] electric, gas, oil, or water [employer] threatened to shut off services in your [...] often do you attend chur ch or denominational services? 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 Carol Monae MANAGER DOMESTIC IMG XR PROCEDURES Final Result documented in this encounter Visit Diagnoses Diagnosis S/P cervical spinal fusion Arthrodesis status Right hand weakness Muscle weakness (generalized) documented in this encounter Care Teams Night Time Nanny Relationship Specialty Start Date End Date No, Physician PCP - General 04/10/24 documented as of this encounter
--- OUTSIDE RECORDS SUMMARY | 2024-11-15 09:54 | XMS_ITS | Referral Summary ---
Author Organization [facility] Address [address] [place] [address] Care Team Providers Care Boat Outboard Engine Mechanic Name Role Phone No, Physician Primary Care Provider [phone] Encounters Date Type Department Care Team Description 11/13/2024 2:35 PM CDT - 11/13/2024 11:59 PM CDT Hospital Encounter [facility] [address] [place] [address] S/P cervical spinal fusion; Right hand weakness Discharge Disposition: Discharge to home or self care 11/13/2024 2:45 PM CDT Office Visit [facility] Neurosurgery [address] [place] [address] Advanced Medicine 6th [place] [address] [place] [id number] Carol Monae NP S/P cervical spinal fusion (Primary Dx) 11/05/2024 Telephone [facility] Scheduling [address] [place] [address] Carol Monae NP 08/18/2024 Orders Only [facility] Neurosurgery [address] [facility] Medical Office Building [address] [place] [address] Carol Monae NP S/P cervical [...] Lispro increased 16u TID per Endocrine - Assistant Production Editor consulted - Vice President Of Compliance consulted for further education on food/snack choices [...] no regular soda Discharge Planning Use A [facility] Diabetes Discharge Order Set - Lantus [...] Lispro increased 16u TID per Endocrine - Assistant Production Editor consulted - Vice President Of Compliance consulted for further education on food/snack choices [...] MAP > 90 augmentation per nsgy - COMMUNITY PLACEMENT WORKER/TLSO brace, Phillips J until custom COMMUNITY PLACEMENT WORKER/TLSO complete - Normotensive MAP goals, - Strict [...] has been staffed with Dr. Tapia. Custom COMMUNITY PLACEMENT WORKER/TLSO Follow Up Clinic in 4-6 weeks with [...] MAP > 90 augmentation per nsgy - COMMUNITY PLACEMENT WORKER/TLSO brace, Phillips J until custom COMMUNITY PLACEMENT WORKER/TLSO complete - Normotensive MAP goals, - Strict [...] has been staffed with Dr. Tapia. Custom COMMUNITY PLACEMENT WORKER/TLSO Follow Up Clinic in 4-6 weeks with [...] MAP > 90 augmentation per nsgy - COMMUNITY PLACEMENT WORKER/TLSO brace, Phillips J until custom COMMUNITY PLACEMENT WORKER/TLSO complete - Normotensive MAP goals, - Strict [...] MAP > 90 augmentation per nsgy - COMMUNITY PLACEMENT WORKER/TLSO brace, Phillips J until custom COMMUNITY PLACEMENT WORKER/TLSO complete - Normotensive MAP goals, - Strict [...] Former Cigarettes Tobacco Cessation:Counseling Given: No [facility] Utilities Answer Date Recorded In the past 12 months has th e [employer], [employer], oil, or water [employer] threatened to shut off services in your [...] often do you attend chur ch or nondenominational services? Patient unable to answer 04/10/2024 Do you belong to any clubs o r organizations such as congregational groups, unions, fraternal or athletic groups, or [...] were you homeless or living in a mcc (including now)? Patient unable to answer 03/12/2024 Personal Safety Answer Date Recorded Have you ever been in or are you currently in a harmful physical or emotional relationship or is someone making you feel afraid or unsafe? 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 BAND SEPARATOR Gender Identity Not on file Sexual Orientation [...] on file Medical Devices Implanted Type Area Calibration Laboratory Technician Device Identifier Shelf Expiration Date Model / Serial / Lot Allosource Canpac Allograft Frozen Nonpurge Graft 10cc Bone Cancellous [id number] - [id number] Implanted:Qty: 1 on 03/13/2024 by Marcio Tapia MD at [facility] Bone N/A: Cervical- Thoracic Spine Allosource 02/04/2029 [id number] / / [id number] Allosource Canpac Allograft Frozen Nonpurge Graft 10cc Bone Cancellous [id number] - [id number] Implanted:Qty: 1 on 03/13/2024 by Marcio Tapia MD at [facility] Bone N/A: Cervical- Thoracic Spine Allosource 01/31/2029 [id number] / / [id number] Allosource Canpac Allograft Frozen Nonpurge Graft 10cc Bone Cancellous [id number] - [id number] Implanted:Qty: 1 on 03/13/2024 by Marcio Tapia MD at [facility] Bone N/A: Cervical- Thoracic Spine Allosource 01/18/2029 [id number] / / [id number] Nuvasive Inc Wayne Spinal Posterior Cervical Prebent Reline [id number] Titanium [id number] - [id number] Implanted:Qty: 1 on 03/13/2024 by Marcio Tapia MD at [facility] N/A: Cervical- Thoracic Spine Nuvasive Inc [id number] / / Nuvasive Inc Wayne Spine Reline C Ti Straight [id number] - [id number] Implanted:Qty: 1 on 03/13/2024 by Marcio Tapia MD at [facility] N/A: Cervical- Thoracic Spine Nuvasive Inc [id number] / / Medtronic Inc Kit Graft Bone Sponge Xlg Infuse 8cc Granules [id number] - [id number] Implanted:Qty: 1 on 03/13/2024 by Marcio Tapia MD at [facility] N/A: Cervical- Thoracic Spine Medtronic Inc 02/10/2025 [id number] / / [id number] [employer] Graft Bone Magnetos 10cc 1-2mm Granules In Moldable Putty 703-038-Us - [id number] Implanted:Qty: 1 on 03/13/2024 by Marcio Tapia MD at [facility] N/A: Cervical- Thoracic Spine [employer] [id number] 01/12/2028 [id number] / / [id number] Nuvasive Inc Screw Spine Reline C Lock Open Non-Sterile Latex Free [id number] - [id number] Implanted:Qty: 14 on 03/13/2024 by Marcio Tapia MD at [facility] N/A: Cervical- Thoracic Spine Nuvasive Inc [id number] / / Nuvasive Inc Screw Spine Reline C Ma 3.5x16mm Non-Sterile Latex Free [id number] - [id number] Implanted:Qty: 8 on 03/13/2024 by Marcio Tapia MD at [facility] N/A: Cervical- Thoracic Spine Nuvasive Inc [id number] / / Nuvasive Inc Reline C Screw 5.5x35mm Reduction Thor [id number] - [id number] Implanted:Qty: 4 on 03/13/2024 by Marcio Tapia MD at [facility] N/A: Cervical- Thoracic Spine Nuvasive Inc [id number] / / Nuvasive Inc Reline C Screw 3.5x28mm Reduction Fa [id number] - [id number] Implanted:Qty: 2 on 03/13/2024 by Marcio Tapia MD at [facility] N/A: Cervical- Thoracic Spine Nuvasive Inc [id number] / / Procedures Procedure Name Priority Date/Time [...] signed by: Gopal Calderon M.D. Carol Monae LEAD JANITOR IMG XR PROCEDURES Final Result * eGFR [...] ORDERABLE S Final Result Performing Organization Address City/[facility] Co de Phone Number [facility] Department [place] [address] * (ABNORMAL) Hemoglobin A1c (03/11/2024 8:59 PM [...] BLOOD ORDERABLES Final Result Performing Organization Address City/[facility] Co de Phone Number [facility] [place] [address] * Hepatitis panel, acute Blood (03/09/2024 7:59 PM CDT) Hep A IgM Nonreactive Nonreactive Hep B core IgM Nonreactive Nonreactive [facility] Hep C Ab Nonreactive Nonreactive [facility] Comment:Antibodies to HCV no t detected. Does NOT exclude the possibility of recent exposure to HCV. Current interpretive data was last revised on 22 HepBsAg Nonreactive Nonreactive [facility] Blood 03/09/2024 7:59 PM CDT 03/09/2024 8:07 PM CDT Chadd Toledo DO LAB MICROBIOLOGY - GE NERAL ORDERABLES Final Result [facility] Department [place] [address] from Last 3 Months or Most Recently Relevant to Health Maintenance Insurance [id number] MEDICARE ADVANTAGE [id number] MEDICARE ADVANTAGE Advance Directives For more information, please contact: [phone] * Full Code (Latest Code Status on File) Date Activated Date Inactivated Comments 04/16/2024 7:23 AM 04/18/2024 8:03 PM * Full Code Date Activated Date Inactivated Comments 03/09/2024 6:10 AM 04/08/2024 7:32 PM Care Teams Boat Outboard Engine Mechanic Relationship Specialty Start Date End Date No, Physician PCP - General 04/10/24
[2024-11-15 09:56] LABS: Basophils Absolute Auto 0.02 K/mm3 (0.00-0.10); Basophils Percent Auto 0.2 % (0.0-1.0); Hematocrit 36.5 % (35.0-49.0); Hemoglobin 11.7 g/dL (12.0-15.0); Immature Granulocyte Absolute 0.07 K/mm3 (0.00-0.00); Immature Granulocyte Percent A 0.6 % (0.0-0.0); Lymphocytes Absolute Auto 0.57 K/mm3 (1.10-4.50); Mean Corpuscular HGB Conc 32.1 g/dL (32-36); Mean Corpuscular Hemoglobin 27.7 pg (27.0-31.0); Mean Corpuscular Volume 86.3 fL (78.0-102.0); Mean Platelet Volume 9.4 fl (9.2-11.8); Monocytes Absolute Auto 0.63 K/mm3 (0.10-0.90); Monocytes Percent Auto 5.6 % (2.0-11.0); Neutrophils Absolute Auto 10.03 K/mm3 (1.70-7.20); Neutrophils Percent Auto 88.6 % (50.0-70.0); Platelet Count Result 113 K/mm3 (150-420); Red Blood Count 4.23 M/mm3 (4.20-5.40); Red Cell Distribution Width 16.6 % (11.6-14.4); White Blood Count 11.3 K/mm3 (4.8-10.8)
[2024-11-15 10:10] LABS: INR 1.1; Prothrombin Time 12.5 Seconds (9.50-12.1)
[2024-11-15 10:15] LABS: Lactic Acid Reflex 2.8 mmol/L (0.4-2.0)
[2024-11-15 10:22] LABS: Alanine Aminotransferase 16 U/L (14-59); Alkaline Phosphatase 170 U/L (46-116); Anion Gap 8 mmol/L (4-12); Aspartate Amino Transferase 37 U/L (15-37); Bilirubin,Total 1.3 mg/dL (0.00-1.00); Blood Urea Nitrogen 28 mg/dL (7-18); Calcium 8.9 mg/dL (8.5-10.1); Carbon Dioxide 27 mmol/L (21-32); Chloride 99 mmol/L (98-108); Estimated CRCL calculation 65 ml/min; Estimated Glomerular Filt Rate 51; Glucose 216 mg/dL (70-99); Lipase 19 U/L (16-77); NT Pro B Type Natriuretic Pept 208 pg/mL (0-125); Osmolality Calculated 290 mOsm/kg (285-295); Potassium 3.7 mmol/L (3.5-5.1); Sodium 134 mmol/L (136-145); Thyroid Stimulating Hormone 0.16 uIU/mL (0.36-3.74); Total Protein 9.8 g/dL (6.4-8.2); Troponin I 27.2 ng/L (0.00-60.4)
[2024-11-15 10:23] LABS: Creatine Kinase 109 U/L (26-192); Magnesium 1.7 mg/dL (1.8-2.4)
[2024-11-15] MEDS: CEFEPIME 2 GM/NS 50 ML 2 GM/50 ML BAG IVPB (10:36)
[2024-11-15] MEDS: SODIUM CHLORIDE 0.9% IV 1,000 ML 999 ML IV CONT (10:38)
[2024-11-15 10:41] LABS: Influenza A QL RT-PCR Negative (Negative); Influenza B QL RT-PCR Negative (Negative); RSV RNA, RT-PCR Negative (Negative); SARS-CoV-2 RNA PCR Negative (Negative)
[2024-11-15 10:52] LABS: Erythrocyte Sedimentation Rate 14 mm/hr (0-20)
[2024-11-15 11:07] LABS: Add Urine Microscopic? YES; Appearance Urine Clear (Clear); Bilirubin Urine 1+ (Negative); Blood Urine 3+ (Negative); Color Urine Dark Yellow (Yellow); Glucose Urine UA Negative (Negative); Ketones Urine Trace (Negative); Leukocyte Esterase Ur Negative LEU/UL (Negative); Nitrate Urine Positive (Negative); Protein Urine 2+ (Negative); Specific Grav Ur >= 1.030 (1.010-1.020); Urobilinogen Urine 0.2 mg/dL (0.2-1.0)
[2024-11-15] MEDS: MAGNESIUM SULF 2 GM/WATER 50ML 2 GM/50 ML BAG IVPB (11:19)
[2024-11-15 11:21] LABS: Squamous Epithelial Cell Urine Few /hpf (Few); WBC Urine None seen /hpf (0-3)
[2024-11-15 11:22] LABS: Bacteria Urine 3+ /hpf; Budding Yeast Urine Present /hpf
[2024-11-15 11:23] LABS: Amphetamine Screen Urine Negative (Negative); Barbiturate Screen Urine Negative (Negative); Benzodiazepines Screen Urine Negative (Negative); Cannabinoid Screen Urine Negative (Negative); Cocaine Screen Urine Positive (Negative); Methadone Screen Urine Negative (Negative); Opiate Screen Urine Negative (Negative); Phencyclidine Screen Urine Negative (Negative)
[2024-11-15 12:17] LABS: Reflex Lactic Acid Yes or No Add Lactic
[2024-11-15] MEDS: VANCOMYCIN 1,250 MG/NS 250 ML 1,250 MG/250 ML BAG 166.67 MG IVPB ×2 (12:27→13:39)
[2024-11-15 12:48] LABS: Lactic Acid 2.9 mmol/L (0.4-2.0)
--- NOTE | 2024-11-15 13:09 | PC.NURSE ---
ERP aware of pt's vital signs. No new orders.
--- NOTE | 2024-11-15 13:57 | PC.NURSE ---
Pt still A&O x 1. Able to give name and date. Thinks she is at [facility].
--- NOTE | 2024-11-15 14:09 | PC.NURSE ---
Daughter, Malinda Bran,
--- NOTE | 2024-11-15 14:24 | PC.NURSE ---
Spoke to pt's daughter. Gave her an update on pt's condition and transfer information.
--- NOTE | 2024-11-17 14:03 | PC.NURSE ---
PRELIMINARY BLOOD CULTURE NO GROWTH TO DATE
--- NOTE | 2024-11-17 14:03 | PC.NURSE ---
URINE CULTURE CLEAN CATCH FINAL NO GROWTH
== END 2024-11-15 15:15 | disposition short-term general hospital (02) ==
PROVIDERS: Emergency Provider Internal Medicine Critical Care Medicine
DX: E11.621 Type 2 diabetes mellitus with foot ulcer (principal); N39.0 Urinary tract infection, site not specified; N28.9 Disorder of kidney and ureter, unspecified; R41.82 Altered mental status, unspecified; F17.210 Nicotine dependence, cigarettes, uncomplicated; Z20.822 Contact with and (suspected) exposure to COVID-19; Z98.1 Arthrodesis status; Z79.899 Other long term (current) drug therapy
CPT/HCPCS: 36415; 36600; 70450; 71045; 80053; 80307; 81001; 82550; 82805; 82948; 83605; 83690; 83735; 83880; 84443; 84484; 85025; 85610; 85652; 85730; 87040; 87086; 87637; 93005; 96361; 96365; 96366; 96367; 96368; 96375; 99285; J0692; J2310; J3370; J3475; J7030; J7120

== ENCOUNTER 2025-01-27 12:42 | Outpatient (CLI) | payer MEDICARE, SELFPAY ==
--- NOTE | ~2025-01-27 | MM_ITS ---
EXAMINATION: MM screening millicent BI w sonali HISTORY: Screening TECHNIQUE: Craniocaudal and mediolateral oblique 3-D tomosynthesis images were obtained and synthetic 2-D images were generated. CAD analysis was submitted and interpreted. COMPARISON: No prior mammogram is available for comparison at this institution. BREAST PARENCHYMAL COMPOSITION: Not dense: There are scattered areas of fibroglandular density. FINDINGS: There is no evidence of suspicious mass, calcification, or architectural distortion to sugg est malignancy in either breast. There has been no suspicious interval change. IMPRESSION: 1. No mammographic evidence of malignancy. 2. Recommend routine screening mammography in one year. BI-RADS Category 1: Negative Reviewed, dictated and finalized at location A.
--- OUTSIDE RECORDS SUMMARY | 2025-01-27 13:10 | XMS_ITS | Encounter Summary ---
Author Organization [facility] Address [address] [facility] [place] [address] Care Team Providers Care Doctor Naturopathic Name Role Phone Unavailable Primary Care Provider Unavailabl e Encounter Details Date Type Department Care Team (Late st Contact Info) Description 12/10/2023 Ophth Exam [facility] - Op[facility]mology [address] [place] [address] Ho Anthony MD [address] [facility] [place] [address] Social History Tobacco Use Types [...] medical care, and heating? Somewhat hard 12/11/2023 [facility] [place] of Occupat ional Health - Occupational Stress [...] place to sleep or slept in a senior living (including now)? No 12/11/2023 Comments Unknown Sex and Gender Information Value Date Recorded Sex Assigned at Not on file Legal Sex Female 7:12 PM CDT Gender Identity Not on file Sexual Orientation Not on file documented as of this encounter Functional Status * Question Answer Date of Assessment Author Q1: How often do you have a drink containing alcohol? 2-4 times a month 12/10/2023 7:31 PM Roshan Rosario RN Q2: How many drinks containing alcohol do you have on a typical day when you are drinking? 1 or 2 12/10/2023 7:31 PM Roshan Rosario RN Q3: How often do you have six or more drinks on one occasion? Never 12/10/2023 7:31 PM Roshan Rosairo RN * Audit-C Score Answer Date of Assessment Author 2 12/10/2023 7:31 PM Bryan Rosario RN documented as of this encounter Plan of Treatment Not on file documented as of this encounter Visit Diagnoses Not on filedocumented in this encounter Additional Health Concerns Infection Onset Date Last Indicated Resolved Time COVID-19 Under Investigation 12/14/2023 12/14/2023 12/25/2023 4:33 AM CDT MRSA Hx 12/17/2023 12/17/2023 documented as of this encounter
--- OUTSIDE RECORDS SUMMARY | 2025-01-27 13:11 | XMS_ITS | Clinical Summary ---
Author Organization [facility] Address [address] [place] [address] Care Team Providers Care Rolloff Truck Driver Name Role Phone Unavailable Primary Care Provider Unavailabl e Source Comments [facility],non-owned Affiliates and Associated Physician Practices is amultiple site organization consisting of ambulatory clinics and hospital sitesin [place], [place], [place]. This disclosure is being madepursuant to the Care Everywhere program and may not contain all information available regarding this patient. Last updated 18.[facility] Allergies Active Allergy Reactions Criticality Noted Date Comments Naproxen Urticaria Medium 12/10/2023 Medications * Be aware that medications may not be up to date on this document. Alwaysverify current medications with the patient. acetaminophen (Tylenol) 325 MG tablet Take 2 (two) tablets by mouth every 6 hours as needed Maximum allowable Acetaminophen amount = 4 Grams (4000 mg) / 24 hours. 12/14/19 24 Active hydrOXYzine HCl (Atarax) 25 MG tablet Take 1 (one) tablet by mouth 3 times daily as needed 12/14/19 24 Active bacitracin ointment Apply to affected area 3 times daily 12/14/19 24 Active senna (Senokot) 8.6 MG tablet Take 1 (one) tablet by mouth once daily 30 tablet 12/19/19 24 Active glipiZIDE (Glucotrol) 10 MG tablet Take 1 (one) tablet by mouth 2 times daily, before breakfast and supper 12/18/19 24 Active Lantus SoloStar pen Inject 10 (ten) Units subcutaneously at bedtime 12/18/19 24 Active oxyCODONE, immediate release, (Roxicodone) 5 MG tabletIndicatio ns:Pain, unspecified TAKE ONE-HALF TABLET BY MOUTH EVERY 4 HOURS NEEDED 21 tablet 12/18/19 24 Active sennosides (Senokot) 8.6 MG tablet TAKE ONE TABLET BY MOUTH ONCE DAILY 30 tablet 12/18/19 24 Active Active Problems Problem Noted Date Diagnosed [...] 12/10/2023 Immunizations Immunization Administration Dates Next Due TDAP (7yrs+) 12/10/2023 [...] medical care, and heating? Somewhat hard 12/17/2023 [facility] [place] of Occupat ional Health - Occupational Stress [...] in a group home (including now)? No 12/17/2023 Comments Unknown Sex and Gender Information Value [...] 11:39 PM CDT Height 177.8 cm (5' 10) 12/14/2023 11:39 PM CDT Body Mass Index [...] (4 - season) 2024 08/17/2022, 04/07/2022, 03/14/2022 DEPRESSION SCREENING 08/13/2024 MEDICARE AWV CALENDAR YEAR 2024 INFLUENZA VACCINE (Season Ended) 2025 08/17/2022, 07/24/2017, 05/25/2016 SCREENING FOR DIABETES 12/17/2026 , 12/18/2023, 12/18/2023, Additional history exists DTAP/TDAP/TD VACCINES [...] - 115 mg/dL 12/18/2023 12:11 AM CDT [facility] Specimen Type Cap Fingerstick 2023 12:11 AM CDT [facility] Blood BLOOD SPECIMEN / Unknown 12/18/2023 12:10 AM CDT 12/18/2023 12:11 AM CDT Ho Parada MD LAB - POINT OF CARE ORDERABLES Final Result [facility] [address] [place] [address], [facility] [phone] from Last 3 Months or Most Recently Relevant to Health Maintenance Additional Health Concerns Infection Onset Date Last Indicated MRSA Hx 12/17/2023 12/17/2023 Insurance MEDICAID - [facility] MANAGED MEDICARE ADV [facility] THIRD ALLIANCE PARTY LIABILITY MEDICAID - [facility] MANAGED MEDICARE [facility] MANAGED MEDICARE ADV MEDICAID - [place] Advance Directives * Full Code (Latest Code Status on File) Date Activated Date Inactivated Comments 12/14/2023 10:20 PM 12/18/2023 5:17 PM * Full Code Date Activated Date Inactivated Comments 12/10/2023 10:01 PM 12/14/2023 8:07 PM
--- OUTSIDE RECORDS SUMMARY | 2025-01-27 13:11 | XMS_ITS ---
Author Organization Unknown Address [address] [place] [phone] Phone Care Team Providers Care Human Resources Office Assistant Name Role Phone TAMRA HUTCHINS Attending Unavailable [...] Frankie Mccoy M.D. KT: URSULA Report ID: [id number] Reading Location: [id number] Social History Type Status Start Date End [...]
--- OUTSIDE RECORDS SUMMARY | 2025-01-27 13:11 | XMS_ITS | Encounter Summary ---
Author Organization [facility] Address [address] [facility] [place] [address] Phone Care Team Providers Care Opto Mechanical Technician Name Role Phone Nayana Garber PAC Primary Care Provider + Encounter Details Date Type Department Care Team (Late st Contact Info) Description 12/15/2024 [facility] [address] [place] [phone] [place] [address] [place] [address] Local infection of the skin and subcutaneous tissue, unspecified Social History Tobacco Use Types Packs/Day Years Used Date Smoking Tobacco: Unknown [facility] Utilities Answer Date Recorded In the past 12 months has [employer] electric, gas, oil, or water company threatened to shut off services in your home? Patient declined 11/15/2024 Social Connection and Isolation Panel Answer Date Recorded In a typical week, how many times do you talk on the phone with family, friends, or neighbors? Patient declined 11/15/2024 How often do you get togethe r with friends or relatives? Patient declined 11/15/2024 How often do you attend pentecostalism or sabianist serv ices? Patient declined 11/15/2024 Do you belong to any clubs o r organizations such as pentecostalism groups, unions, fraternal or athletic groups, or school groups? Patient declined 11/15/2024 How often do you attend meet ings of the clubs or organizations you belong to? Patient declined 11/15/2024 Are you , , di vorced, , never , or living with a partner? Patient declined 11/15/2024 AUDIT-C Answer Date Recorded Q1: How often do you have a drink containing alc ohol? Patient declined 11/15/2024 Q2: How many drinks containi ng alcohol do you have on a typical day when you are drinking? Patient declined 11/15/2024 Q3: How often do you have si x or more drinks on one occasion? Patient declined 11/15/2024 Overall Financial Resource Strain (CARDIA) Answe r Date Recorded How hard is it for you to pa y for the very basics like food, housing, medical care, and heating? Patient declined 11/15/2024 [facility] of Occupat ional Health - Occupational Stress Questionnaire Answer Date Recorded Do you feel stress - tense, restless, nervous, or anxious, or unable to sleep at night because your mind is troubled all the time - these days? Patient declined 11/15/2024 Exercise Vital Sign Answer Date Recorde d On average, how many days pe r week do you engage in moderate to strenuous exercise (like a brisk walk)? Patient declined On average, how many minutes do you engage in exercise at this level? Patient declined 11/15/2024 Hunger Vital Sign Answer Date Recorded Within the past 12 months, y ou worried that your food would run out before you got the money to buy more. Patient declined Within the past 12 months, t he food you bought just didn't last and you didn't have money to get more. Patient declined 12/2024 PRAPARE - Transportation Answer Date Re corded In the past 12 months, has l ack of transportation kept you from medical appointments or from getting medications? Patient declined 11/15/2024 In the past 12 months, has l ack of transportation kept you from meetings, work, or from getting things needed for daily living? Patient declined 11/15/2024 Housing Stability Vital Sign Answer Compa e Recorded In the last 12 months, was t here a time when you were not able to pay the mortgage or rent on time? Patient declined 11/16/19 25 In the past 12 months, how m any times have you moved where you were living? 1 11/15/2024 At any time in the past 12 m [facility], were you homeless or living in a half-way (including now)? Patient declined 11/15/2024 Comments Unknown Sex and Gender Information Value Date Recorded Sex Assigned at Not on file Legal Sex Female 11:42 AM CDT Gender Identity Not on file Sexual Orientation Not on file documented as of this encounter Plan of Treatment Upcoming Encounters Date Type Department Care Team (Late st Contact Info) Description 01/28/2025 9:40 AM CDT [facility] [address] [place] [phone] Serjio Santoro MD [address] [place] [address] Discharge Disposition: Discharged to home or Selfcare documented as of this encounter Procedures Procedure Name Priority Date/Time Associated Diagnosis Comments CBC WITH AUTO DIFFERENTIAL Routine 12/15/2024 1:03 PM CDT Local infection of the skin and subcutaneous tissue, unspecified CMP (COMPREHENSIVE METABOLIC PANEL) Routine 12/15/2024 1:03 PM CDT Local infection of the skin and subcutaneous tissue, unspecified COMPLETE BLOOD COUNT (CBC) WITH DIFF Routine 12/15/2024 1:03 PM CDT Local infection of the skin and subcutaneous tissue, unspecified documented in this encounter Results * (ABNORMAL) CBC WITH AUTO DIFFERENTIAL (12/15/2024 1:03 PM CDT) WBC 4.18 4.00 - 12.00 10(3)/mcL 12/15/2024 2:20 PM CDT [facility] RBC 4.41 3.80 - 5.30 10(6)/mcL 12/15/2024 2:20 PM CDT [facility] HEMOGLOBIN (HGB) 12.1 12.0 - 15.8 g/dL 12/15/2024 2:20 PM CDT [facility] HEMATOCRIT (HCT) 38.2 36.0 - 47.0 % 12/15/2024 2:20 PM CDT [facility] MCV 86.6 82.0 - 96.0 fL 12/15/2024 2:20 PM CDT [facility] MCH 27.4 26.0 - 34.0 pg 12/15/2024 2:20 PM CDT [facility] MCHC 31.7 31.0 - 36.0 g/dL 12/15/2024 2:20 PM CDT [facility] PLATELET COUNT 130(L) 140 - 440 10(3)/mcL 12/15/2024 2:20 PM CDT [facility] RDW 15.9(H) 11.8 - 15.5 % 12/15/2024 2:20 PM CDT [facility] MPV 9.3(L) 9.7 - 12.4 fL 12/15/2024 2:20 PM CDT [facility] NEUTROPHILS 55.2 47.0 - 73.0 % 12/15/2024 2:20 PM CDT [facility] LYMPHOCYTES 28.0 18.0 - 42.0 % 12/15/2024 2:20 PM CDT [facility] MONOCYTES 14.1(H) 4.0 - 12.0 % 12/15/2024 2:20 PM CDT [facility] EOSINOPHILS 2.2 0.0 - 5.0 % 12/15/2024 2:20 PM CDT [facility] BASOPHILS 0.5 0.0 - 1.0 % 12/15/2024 2:20 PM CDT [facility] ABSOLUTE NEUTROPHILS 2.31 1.60 - 7.70 10(3)/mcL 12/15/2024 2:20 PM CDT [facility] ABSOLUTE LYMPHOCYTES 1.17(L) 1.30 - 3.20 10(3)/mcL 12/15/2024 2:20 PM CDT [facility] ABSOLUTE MONOCYTES 0.59 0.20 - 1.00 10(3)/mcL 12/15/2024 2:20 PM CDT [facility] ABSOLUTE EOSINOPHIL 0.09 0.00 - 0.40 10(3)/mcL 12/15/2024 2:20 PM CDT [facility] ABSOLUTE BASOPHILS 0.02 0.00 - 0.10 10(3)/mcL 12/15/2024 2:20 PM CDT [facility] NRBC PER 100 WBC 0 12/16/19 2:20 PM CDT [facility] Blood No Phlebotomy Charged / Unknown 12/15/2024 1:03 PM CDT 12/15/2024 2:09 PM CDT Jesse Wheeler MD HEMATOLOGY ORDERABLES Fi nal Result [facility] [address] [place] [address] * (ABNORMAL) CMP (COMPREHENSIVE METABOLIC PANEL) (12/15/2024 1:03 PM CDT) SODIUM 137 136 - 145 mmol/L 12/15/2024 2:30 PM CDT [facility] POTASSIUM 3.6 3.5 - 5.1 mmol/L 12/15/2024 2:30 PM CDT [facility] CHLORIDE 104 98 - 107 mmol/L 12/15/2024 2:30 PM CDT [facility] CO2, VENOUS 27 22 - 30 mmol/L 12/15/2024 2:30 PM CDT [facility] ANION GAP 9.6 <18.0 mmol/L 12/15/2024 2:30 PM CDT [facility] GLUCOSE 146(H) 70 - 99 mg/dL 12/15/2024 2:30 PM CDT [facility] BUN 16 10 - 20 mg/dL 12/15/2024 2:30 PM CDT [facility] CREATININE, BLOOD 0.67 0.60 - 1.00 mg/dL 12/15/2024 2:30 PM CDT [facility] BUN/CREATININE RATIO 24(H) 12 - 20 ratio 12/15/2024 2:30 PM CDT [facility] TOTAL PROTEIN 9.4(H) 6.0 - 8.0 g/dL 12/15/2024 2:30 PM CDT [facility] ALBUMIN 3.0(L) 3.5 - 5.0 g/dL 12/15/2024 2:30 PM CDT [facility] A/G RATIO 0.5(L) 1.0 - 2.2 12/15/2024 2:30 PM CDT [facility] CALCIUM 8.6(L) 8.7 - 10.5 mg/dL 12/15/2024 2:30 PM CDT [facility] T BILI 0.5 0.2 - 1.2 mg/dL 12/15/2024 2:30 PM CDT [facility] SGOT (AST) 57(H) <43 U/L 12/15/2024 2:30 PM CDT [facility] SGPT (ALT) 10 <56 U/L 12/15/2024 2:30 PM CDT [facility] ALKALINE PHOSPHATASE 175(H) 40 - 150 U/L 12/15/2024 2:30 PM CDT [facility] GFR, ESTIMATED >60 >=60 12/15/2024 2:30 PM [facility] Comment: Creatinine Clearance is the preferred criteria for selecting drug dose adjustments in renally impaired patients. The GFR is provided as additional pertinent clinical information. GFR is reported in mL/min/1.73 sq m. Calculation based on the Chronic Kidney Disease Epidemiology Collaboration (CKD- EPI) equation refit without adjustment for race. GFR, EST. >60 >=60 025 2:30 PM CDT [facility] GFR, EST. NONAFRICAN >60 >=60 12/15/2024 2:30 PM [facility] Blood No Phlebotomy Charged / Unknown 12/15/2024 1:03 PM CDT 12/15/2024 2:09 PM CDT Jesse Wheeler MD CHEMISTRY ORDERABLES Fin al Result [facility] [address] [place] [address] documented in this encounter Visit Diagnoses Diagnosis Local infection of the skin and subcutaneous tissue, unspecified documented in this encounter Additional Health Concerns Infection Onset Date Last Indicated Resolved Time MRSA 11/15/2024 11/15/2024 documented as of this encounter Care Teams Opto Mechanical Technician Relationship Specialty Start Date End Date Nayana Garber PAC [address] [place] [id number] PCP - General Advanced Practice Nurse 08/17/24 documented as of this encounter
--- OUTSIDE RECORDS SUMMARY | 2025-01-27 13:11 | XMS_ITS | Encounter Summary ---
Author Organization [facility] Address [address] [place] [address] Phone Care Team Providers Care Needle Molder Name Role Phone Nayana Garber PAC Primary Care Provider + Encounter Details Date Type Department Care Team (Late st Contact Info) Description 12/08/2024 [facility] [address] [place] [phone] [place] [address] [place] [address] Local infection of the skin and subcutaneous tissue, unspecified Social History Tobacco Use Types Packs/Day Years Used Date Smoking Tobacco: Unknown [facility] Utilities Answer Date Recorded In the past 12 months has [employer] electric, gas, oil, or water company threatened [...] declined 11/15/2024 How often do you attend adventism or mu-ism serv ices? Patient declined 11/15/2024 Do you [...] medical care, and heating? Patient declined 11/15/2024 [facility] of Occupat ional Health - Occupational Stress [...] any time in the past 12 m [facility], were you homeless or living in a alf (including now)? Patient declined 11/15/2024 Comments Unknown Sex and Gender Information Value Date Recorded Sex Assigned at Not on file Legal Sex Female 11:42 AM CDT Gender Identity Not on file Sexual Orientation Not on file documented as of this encounter Plan of Treatment Upcoming Encounters Date Type Department Care Team (Late st Contact Info) Description 01/28/2025 9:40 AM CDT [facility] [address] [place] [phone] Serjio Santoro MD [address] [place] [address] Discharge Disposition: Discharged to home or Selfcare documented as of this encounter Procedures Procedure Name Priority Date/Time Associated Diagnosis Comments CBC WITH AUTO DIFFERENTIAL Routine 12/08/2024 10:50 AM CDT Local infection of the skin and subcutaneous tissue, unspecified CMP (COMPREHENSIVE METABOLIC PANEL) Routine 12/08/2024 10:50 AM CDT Local infection of the skin and subcutaneous tissue, unspecified COMPLETE BLOOD COUNT (CBC) WITH DIFF Routine 12/08/2024 10:50 AM CDT Local infection of the skin and subcutaneous tissue, unspecified documented in this encounter Results * (ABNORMAL) CBC WITH AUTO DIFFERENTIAL (12/08/2024 10:50 AM CDT) WBC 4.04 4.00 - 12.00 10(3)/mcL 12/08/2024 11:44 AM CDT [facility] RBC 4.15 3.80 - 5.30 10(6)/mcL 12/08/2024 11:44 AM CDT [facility] HEMOGLOBIN (HGB) 11.5(L) 12.0 - 15.8 g/dL 12/08/2024 11:44 AM CDT [facility] HEMATOCRIT (HCT) 36.1 36.0 - 47.0 % 12/08/2024 11:44 AM CDT [facility] MCV 87.0 82.0 - 96.0 fL 12/08/2024 11:44 AM CDT [facility] MCH 27.7 26.0 - 34.0 pg 12/08/2024 11:44 AM CDT [facility] MCHC 31.9 31.0 - 36.0 g/dL 12/08/2024 11:44 AM CDT [facility] PLATELET COUNT 132(L) 140 - 440 10(3)/mcL 12/08/2024 11:44 AM CDT [facility] RDW 16.4(H) 11.8 - 15.5 % 12/08/2024 11:44 AM CDT [facility] MPV 9.1(L) 9.7 - 12.4 fL 12/08/2024 11:44 AM CDT [facility] NEUTROPHILS 54.5 47.0 - 73.0 % 12/08/2024 11:44 AM CDT [facility] LYMPHOCYTES 30.2 18.0 - 42.0 % 12/08/2024 11:44 AM CDT [facility] MONOCYTES 12.6(H) 4.0 - 12.0 % 12/08/2024 11:44 AM CDT [facility] EOSINOPHILS 2.0 0.0 - 5.0 % 12/08/2024 11:44 AM CDT [facility] BASOPHILS 0.7 0.0 - 1.0 % 12/08/2024 11:44 AM CDT [facility] ABSOLUTE NEUTROPHILS 2.20 1.60 - 7.70 10(3)/mcL 12/08/2024 11:44 AM CDT [facility] ABSOLUTE LYMPHOCYTES 1.22(L) 1.30 - 3.20 10(3)/mcL 12/08/2024 11:44 AM CDT [facility] ABSOLUTE MONOCYTES 0.51 0.20 - 1.00 10(3)/mcL 12/08/2024 11:44 AM CDT [facility] ABSOLUTE EOSINOPHIL 0.08 0.00 - 0.40 10(3)/mcL 12/08/2024 11:44 AM CDT [facility] ABSOLUTE BASOPHILS 0.03 0.00 - 0.10 10(3)/mcL 12/08/2024 11:44 AM CDT [facility] NRBC PER 100 WBC 0 12/09/19 11:44 AM CDT [facility] Blood No Phlebotomy Charged / Unknown 12/08/2024 10:50 AM CDT 12/08/2024 11:41 AM CDT us Jesse Wheeler MD HEMATOLOGY ORDERABLES Fi nal Result [facility] [address] [place] [address] * (ABNORMAL) CMP (COMPREHENSIVE METABOLIC PANEL) (12/08/2024 10:50 AM CDT) SODIUM 139 136 - 145 mmol/L 12/08/2024 12:06 PM CDT [facility] POTASSIUM 3.8 3.5 - 5.1 mmol/L 12/08/2024 12:06 PM CDT [facility] CHLORIDE 110(H) 98 - 107 mmol/L 12/08/2024 12:06 PM CDT [facility] CO2, VENOUS 23 22 - 30 mmol/L 12/08/2024 12:06 PM CDT [facility] ANION GAP 9.8 <18.0 mmol/L 12/08/2024 12:06 PM CDT [facility] GLUCOSE 70 70 - 99 mg/dL 12/08/2024 12:06 PM CDT [facility] BUN 11 10 - 20 mg/dL 12/08/2024 12:06 PM CDT [facility] CREATININE, BLOOD 0.66 0.60 - 1.00 mg/dL 12/08/2024 12:[address] [facility] BUN/CREATININE RATIO 17 12 - 20 ratio 12/08/2024 12:[address] [facility] TOTAL PROTEIN 9.4(H) 6.0 - 8.0 g/dL 12/08/2024 12:[address] [facility] ALBUMIN 2.8(L) 3.5 - 5.0 g/dL 12/08/2024 12:[address] [facility] A/G RATIO 0.4(L) 1.0 - 2.2 12/08/2024 12:[address] [facility] CALCIUM 8.3(L) 8.7 - 10.5 mg/dL 12/08/2024 12:[address] [facility] T BILI 0.7 0.2 - 1.2 mg/dL 12/08/2024 12:[address] [facility] SGOT (AST) 52(H) <43 U/L 12/08/2024 12:[address] [facility] SGPT (ALT) 8 <56 U/L 12/08/2024 12:[address] [facility] ALKALINE PHOSPHATASE 167(H) 40 - 150 U/L 12/08/2024 12:[address] [facility] GFR, ESTIMATED >60 >=60 12/08/2024 12:[address] [facility] Comment: Creatinine Clearance is the preferred criteria for selecting drug dose adjustments in renally impaired patients. The GFR is provided as additional pertinent clinical information. GFR is reported in mL/min/1.73 sq m. Calculation based on the Chronic Kidney Disease Epidemiology Collaboration (CKD- EPI) equation refit without adjustment for race. GFR, EST. >60 >=60 025 12:[address] [facility] GFR, EST. NONAFRICAN >60 >=60 12/08/2024 12:[address] [facility] Blood No Phlebotomy Charged / Unknown 12/08/2024 10:50 AM CDT 12/08/2024 11:40 AM CDT Jesse Wheeler MD CHEMISTRY ORDERABLES Fin al Result [facility] [address] [place] [address] documented in this encounter Visit Diagnoses Diagnosis Local infection of the skin and subcutaneous tissue, unspecified documented in this encounter Additional Health Concerns Infection Onset Date Last Indicated Resolved Time MRSA 11/15/2024 11/15/2024 documented as of this encounter Care Teams Needle Molder Relationship Specialty Start Date End Date Nayana Garber PAC [address] [place] [id number] PCP - General Advanced Practice Nurse 08/17/24 documented as of this encounter
--- OUTSIDE RECORDS SUMMARY | 2025-01-27 13:11 | XMS_ITS | Encounter Summary ---
Author Organization [facility] Address [address] [facility] [place] [address] Care Team Providers Care Back Tender Cloth Printing Name Role Phone Unavailable Primary Care Provider Unavailabl e Encounter Details Date Type Department Care Team (Late st Contact Info) Description 12/11/2023 Ophth [facility]am [facility] [address] [place] [phone] Miya Crooks MD [address] [place] [phone] Social History Tobacco Use Types Packs/Day Years [...] Somewhat hard 12/11/2023 [facility] of Occupat ional Health - Occupational Stress [...] [place] [facility] No 12/11/2023 Comments Unknown Sex [...]
--- OUTSIDE RECORDS SUMMARY | 2025-01-27 13:11 | XMS_ITS | Clinical Summary ---
Author Organization [facility] Address [address] [place] [address] Care Team Providers Care Safekeeping Clerk Name Role Phone No, Physician Primary Care Provider [phone] Allergies Active Allergy Reactions Criticality Noted Date [...] Lispro increased 16u TID per Endocrine - Tile Inspector consulted - Kelly Machine Operator consulted for further education on food/snack choices [...] no regular soda Discharge Planning Use A [facility] Diabetes Discharge Order Set - Lantus 25 [...] Lispro increased 16u TID per Endocrine - Tile Inspector consulted - Kelly Machine Operator consulted for further education on food/snack choices [...] MAP > 90 augmentation per nsgy - COURT OFFICER/TLSO brace, [place] until custom COURT OFFICER/TLSO complete - Normotensive MAP goals, - Strict [...] has been staffed with Dr. Tapia. Custom COURT OFFICER/TLSO Follow Up Clinic in 4-6 weeks with [...] MAP > 90 augmentation per nsgy - COURT OFFICER/TLSO brace, [place] until custom COURT OFFICER/TLSO complete - Normotensive MAP goals, - Strict [...] has been staffed with Dr. Tapia. Custom COURT OFFICER/TLSO Follow Up Clinic in 4-6 weeks with [...] MAP > 90 augmentation per nsgy - COURT OFFICER/TLSO brace, [place] until custom COURT OFFICER/TLSO complete - Normotensive MAP goals, - Strict [...] MAP > 90 augmentation per nsgy - COURT OFFICER/TLSO brace, [place] until custom COURT OFFICER/TLSO complete - Normotensive MAP goals, - Strict [...] Description 11/13/2024 2:45 PM CDT Office Visit [facility] [address] [facility] [address] [place] [address] [place] [address] Carol Monae NP S/P cervical spinal fusion (Primary Dx) 11/13/2024 2:35 PM CDT - 11/13/2024 11:59 PM CDT Hospital Encounter [facility] [address] [place] [id number] S/P cervical spinal fusion; Right hand weakness Discharge Disposition: Discharge to home or self care 11/05/2024 Telephone [facility] Scheduling [address] [place] [address] Carol Monae NP from Last 3 Months Immunizations Immunization Administration Dates Next Due Influenza, Quadrivalent, Split, Intramuscular Influenza, Quadrivalent, Spl it, Preservative Free, Intramuscular 08/17/2022,05/25/2016 Tdap 12/10/2023 Social History Tobacco Use Types Packs/Day Years Used Date Smoking Tobacco: Former Cigarettes Tobacco Cessation:Counseling Given: No [facility] Utilities Answer Date Recorded In the past [...] any clubs o r organizations such as episcopal groups, unions, fraternal or athletic groups, or [...] any time in the past [address] [facility] [facility] [place], were you homeless or living [...] on file Legal Sex Female 10:11 AM RN BIRTHING Gender Identity Not on file Sexual Orientation [...] 1:01 PM CDT Height 177.8 cm (5' 10) 06/06/2024 1:01 PM CDT Body Mass Index [...] 2023-2 5 season) 2024 08/17/2022, 04/07/2022, 03/14/2022 Hemoglobin A1C 09/12/2024 03/12/2024, 0708/2023, 03/11/2024, Additional history exists Depression Screening 03/08/2025 03/08/2024 Influenza Vaccine (Season Ended) 2025 08/17/2022, 07/24/2017, 05/25/2016 eGFR 04/15/2025 04/15/2024, 03/14, 03/19/2024, Additional history exists DTaP/Tdap/Td Vaccine (2 - Td or Tdap) 12/09/2033 12/10/2023 Hepatitis C Screening Completed 03/09/2024 Medical Devices Implanted Type Area Cna Ltc Device Identifier Shelf Expiration Date Model / Serial / Lot Allosource Canpac Allograft Frozen Nonpurge Graft 10cc Bone Cancellous [id number] - [id number] Implanted:Qty: 1 on 03/13/2024 by Marcio Tapia MD at [facility] Bone N/A: Cervical- Thoracic Spine Allosource 02/04/2029 [id number] / / [id number] Allosource Canpac Allograft Frozen Nonpurge Graft 10cc Bone Cancellous [id number] - [id number] Implanted:Qty: 1 on 03/13/2024 by Marcio Tapia MD at [facility] Bone N/A: Cervical- Thoracic Spine Allosource 01/31/2029 [id number] / / [id number] Allosource Canpac Allograft Frozen Nonpurge Graft 10cc Bone Cancellous [id number] - [id number] Implanted:Qty: 1 on 03/13/2024 by Marcio Tapia MD at [facility] Bone N/A: Cervical- Thoracic Spine Allosource 01/18/2029 [id number] / / [id number] Nuvasive Inc Wayne Spinal Posterior Cervical Prebent Reline 4.6d545mu Titanium [id number] - [id number] Implanted:Qty: 1 on 03/13/2024 by Marcio Tapia MD at [facility] N/A: Cervical- Thoracic Spine Nuvasive Inc [id number] / / Nuvasive Inc Wayne Spine Reline C Ti Straight 4.3u254sh [id number] - [id number] Implanted:Qty: 1 on 03/13/2024 by Marcio Tapia MD at [facility] N/A: Cervical- Thoracic Spine Nuvasive Inc [id number] / / Medtronic Inc Kit Graft Bone Sponge Xlg Infuse 8cc Granules [id number] - [id number] Implanted:Qty: 1 on 03/13/2024 by Marcio Tapia MD at [facility] N/A: Cervical- Thoracic Spine Medtronic Inc 02/10/2025 [id number] / / [id number] New Age Medical Graft Bone Magnetos 10cc 1-2mm Granules In Moldable Putty 703-038-[id number] - [id number] Implanted:Qty: 1 on 03/13/2024 by Marcio Tapia MD at [facility] N/A: Cervical- Thoracic Spine [employer] [id number] 01/12/2028 [id number] / / [id number] Nuvasive Inc Screw Spine Reline C Lock Open Non-Sterile Latex Free [id number] - [id number] Implanted:Qty: 14 on 03/13/2024 by Marcio Tapia MD at [facility] N/A: Cervical- Thoracic Spine Nuvasive Inc [id number] / / Nuvasive Inc Screw Spine Reline C Ma 3.5x16mm Non-Sterile Latex Free [id number] - [id number] Implanted:Qty: 8 on 03/13/2024 by Marcio Tapia MD at [facility] N/A: Cervical- Thoracic Spine Nuvasive Inc [id number] / / Nuvasive Inc Reline C Screw 5.5x35mm Reduction Thor [id number] - [id number] Implanted:Qty: 4 on 03/13/2024 by Marcio Tapia MD at [facility] N/A: Cervical- Thoracic Spine Nuvasive Inc [id number] / / Nuvasive Inc Reline C Screw 3.5x28mm Reduction Fa [id number] - [id number] Implanted:Qty: 2 on 03/13/2024 by Marcio Tapia MD at [facility] N/A: Cervical- Thoracic Spine Nuvasive Inc [id number] / / Procedures Procedure Name Priority Date/Time [...] by: Gopal Calderon M.D. us Carol Monae GRAVITY PROSPECTING SUPERVISOR IMG XR PROCEDURES Final Result * eGFR [...] ORDERABLE S Final Result Performing Organization Address City/State/[facility] Co de Phone Number [facility] [place] [address] [facility] Department of Laboratories [place], [place] [phone] * (ABNORMAL) Hemoglobin A1c (03/11/2024 8:59 PM CDT) Hgb A1C 8.9(H) 4.0 - 5.6 % Estimated Average Glucose 209 mg/dL [facility] Comment: The ADA recommends reporting an estimated [...] BLOOD ORDERABLES Final Result Performing Organization Address City/[facility]/ZIP Co de Phone Number [facility] [place] [address] * Hepatitis panel, acute Blood (03/09/2024 7:59 PM CDT) Hep A IgM Nonreactive Nonreactive Hep B core IgM Nonreactive Nonreactive [facility] Hep C Ab Nonreactive Nonreactive [facility] Comment:Antibodies to HCV no t detected. Does NOT exclude the possibility of recent exposure to HCV. Current interpretive data was last revised on 22 HepBsAg Nonreactive Nonreactive [facility] Blood 03/09/2024 7:59 PM CDT 03/09/2024 8:07 PM CDT Chadd Toledo DO LAB MICROBIOLOGY - GE NERAL ORDERABLES Final Result Performing Organization Address [facility] Co de Phone Number [facility] Department [place] [address] from Last 3 Months or Most Recently Relevant to Health Maintenance Insurance [facility] MEDICARE ADVANTAGE [facility] MEDICARE ADVANTAGE Advance Directives For more information, please contact: [phone] * Full Code (Latest Code Status on File) Date Activated Date Inactivated Comments 04/16/2024 7:23 AM 04/18/2024 8:03 PM * Full Code Date Activated Date Inactivated Comments 03/09/2024 6:10 AM 04/08/2024 7:32 PM Care Teams Safekeeping Clerk Relationship Specialty Start Date End Date No, Physician PCP - General 04/10/24
--- OUTSIDE RECORDS SUMMARY | 2025-01-27 13:11 | XMS_ITS | Encounter Summary ---
Author Organization [facility] Address [address] [place] [address] Phone Care Team Providers Care Spa Attendant Name Role Phone Nayana Garber PAC Primary Care Provider + Encounter Details Date Type Department Care Team (Late st Contact Info) Description 11/22/2024 Home Health Resumpti on of Care Planning [facility] [address] [place] [address] Social History Tobacco Use Types Packs/Day Years Used Date Smoking Tobacco: Unknown [facility] Utilities Answer Date Recorded In the past 12 months has [employer] electric, gas, oil, or water company threatened [...] declined 11/15/2024 How often do you attend faith or synagogue serv ices? Patient declined 11/15/2024 Do you [...] medical care, and heating? Patient declined 11/15/2024 [facility] [...] time in the past 12 m [facility] [place], were you homeless or living in a jail (including now)? Patient declined 11/15/2024 Comments Unknown Sex and Gender Information Value Date Recorded Sex Assigned at Not on file Legal Sex Female 11:42 AM CDT Gender Identity Not on file Sexual Orientation Not on file documented as of this encounter Plan of Treatment Upcoming Encounters Date Type Department Care Team ([facility] Contact Info) Description 01/28/2025 9:40 AM CDT Office Visit [facility] [address] [place] [address] Serjio Santoro MD [address] [place] [address] Discharge Disposition: Discharged to home or Selfcare documented as of this encounter Visit Diagnoses Not on filedocumented in this encounter Additional Health Concerns Infection Onset Date Last Indicated Resolved Time 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
--- OUTSIDE RECORDS SUMMARY | 2025-01-27 13:11 | XMS_ITS | Clinical Summary ---
Author Organization [facility] Address [address] [place] [address] Phone Care Team Providers Care Systems Coordinator Name Role Phone Nayana Garber [facility] Primary Care Provider + Allergies No known [...] 12 Units by Subcutaneous route nightly. Active acetaminophen (TYLENOL) 500 MG Tablet Take 1,000 mg by mouth every 6 hours as needed for Mild or more severe pain. 5 Active glipiZIDE (GLUCOTROL) 10 MG Tablet Take 0.5 Tablets by mouth daily for 90 days. 45 Tablet 5 02/20/20 25 Active baclofen (LIORESAL) 10 MG Tablet Take 1 Tablet by mouth every 8 hours as needed for Muscle spasms for up to 90 days. 90 Tablet 5 02/20/20 25 Active HYDROcodone-michael taminophen (NORCO) 5-325 MG TabletIndicatio ns:Foot infection Take 1 Tablet by mouth every 8 hours as needed for Moderate or more severe pain. 15 Tablet Active Active Problems Problem Noted Date Diagnosed Date DVT (deep venous thrombosis) 11/21/2024 Liver mass 11/21/2024 Peripheral vascular disease 11/21/2024 Sepsis 08/19/2024 Foot infection 08/19/2024 Type 2 diabetes mellitus 08/19/2024 Substance abuse 08/19/2024 Resolved Problems Problem Noted Date Diagnosed Date Resolved Date Acute infective cystitis 11/15/202406/2025 Encounters Date Type Department Care Team Description 01/13/2025 Telephone [facility] [address] [place] [address] Serjio Santoro MD 12/26/2024 11:00 AM CDT Home Care Visit [address] [address] Serena Zaman RN SN - OASIS DISCHARGE 12/22/2024 11:00 AM CDT Home Care Visit [address] [address] Serena Zaman RN SN - WOUND VISIT 12/19/2024 10:00 AM CDT Home Care Visit [address] [address] Serena Zaman, RN SN - WOUND VISIT 12/15/2024 11:00 AM CDT Home Care Visit [address] [address] Shayy Christopher RN SN - LAB 12/15/2024 Lab Requisition [facility] Services [address] [place] [address] Jesse Wheeler MD Local infection of the skin and subcutaneous tissue, unspecified 12/12/2024 11:00 AM CDT Home Care Visit [address] [address] Shayy Christopher RN SN - WOUND VISIT 12/08/2024 10:00 AM CDT Home Care Visit [address] [address] Serena Zaman, RN SN - LAB 12/08/2024 Lab Requisition [facility] [address] [place] [address] Jesse Wheeler MD Local infection of the skin and subcutaneous tissue, unspecified 12/05/2024 11:30 AM CDT Home Care Visit [address] [address] Nisreen Medel RN SN - WOUND VISIT 12/01/2024 10:00 AM CDT Home Care Visit [address] [address] Serena Zaman, RN SN - LAB 12/01/2024 Lab Requisition [facility] [address] [place] [address] Jesse Wheeler MD Local infection of the skin and subcutaneous tissue, unspecified 11/29/2024 1:00 AM CDT Home Care Visit [address] [address] Shayy Christopher RN SN - WOUND VISIT 11/28/[address] [address] Elizabeth Hedrick RN 11/28/[address] [address] Kasey Camacho RN Wound visit 11/26/2024 12:00 PM CDT Home Care Visit [address] [address] Ruba Ware, PROGRESSIVE DIE MAKER PROGRESSIVE DIE MAKER - INITIAL EVALUATION 11/26/2024 10:00 AM CDT Home Care Visit [address] [address] Serena Zaman RN SN - LAB 11/26/2024 Lab Requisition [facility] [address] [place] [address] Jesse Wheeler MD Local infection of the skin and subcutaneous tissue, unspecified 11/25/[address] [address] Elizabeth Hedrick RN 11/25/2024 Plan of Care Documentation [address] [address] 11/24/2024 12:00 PM CDT Home Care Visit [address] [address] Serena Zaman RN SN - OASIS RESUMPTION OF CARE Discharge Disposition: Discharged to home or Selfcare 11/22/[address] [address] Sabrina Concepcion RN Appointment 11/22/2024 Home Health Resumption of Care Planning [address] [address] 11/21/2024 1:30 PM CDT - 11/21/2024 2:12 PM CDT Surgery [facility] Cardiac Size Changer [address] [place] [address] [facility] Invasive PICC LEAF COVERER 11/17/2024 Home Care Visit [address] [address] Serena Bowen, RN SN - OASIS TRANSFER W/OUT DC 11/15/2024 4:23 PM CDT - 11/21/2024 6:07 PM CDT Hospital [facility] Med Surg [address] [place] [address] Chiara Orellana MD Dianati, Behfar, MD Acute infective cystitis Discharge Disposition: [place] Health [place] [facility] [place] Travel 11/12/2024 11:00 AM CDT [facility] [address] [place] [address] Perlita Wilson LPN SN - WOUND VISIT 11/05/2024 10:00 AM CDT [facility] [address] [place] [address] Perlita Wilson LPN SN - WOUND VISIT 10/29/2024 Plan of Care Documentation [address] [address] 10/28/2024 10:00 AM CDT Home Care Visit [address] [address] Serena Zaman RN SN - OASIS RECERTIFICATION from Last 3 Months Social History Tobacco Use Types Packs/Day Years Used Date Smoking Tobacco: Unknown Tobacco Cessation:Counseling Given: Not Answered [facility] Utilities Answer Date Recorded In the past 12 months has [employer], gas, oil, or water [employer] threatened to shut off services in your home? Patient declined 11/15/2024 Social Connection and Isolation Panel Answer Date Recorded In a typical week, how many times do you talk on the phone with family, friends, or neighbors? Patient declined 11/15/2024 How often do you get togethe r with friends or relatives? Patient declined 11/15/2024 How often do you attend baptism or hindu serv ices? Patient declined 11/15/2024 Do you belong to any clubs o r organizations such as baptism groups, unions, fraternal or athletic groups, or [...] heating? Patient declined 11/15/2024 [facility] - Occupational Stress Questionnaire Answer Date Recorded [...] any time in the past 12 m [facility], were you homeless or living in a [place] health care facility (including now)? Patient declined 11/15/2024 Comments Unknown Sex and Gender Information Value Date Recorded Sex Assigned at Not on file Legal Sex Female 11:42 AM CDT Gender Identity Not on file Sexual Orientation Not on file Last Filed Vital Signs Vital Sign Reading Time Taken Comments Blood Pressure 126/66 12/26/2024 1:11 PM CDT Pulse 80 12/26/2024 1:11 PM CDT Temperature 36.3 C (97.4 F) 12/26/2024 1:11 PM CDT Respiratory Rate 18 12/26/2024 1:11 PM CDT Oxygen Saturation 99% 12/26/2024 1:11 PM CDT Inhaled Oxygen Concentration - - Weight 91.2 kg (201 lb) 11/15/2024 5:55 PM CDT Height 177.8 cm (5' 10) 11/24/2024 2:35 PM CDT Body Mass Index 28.84 11/15/2024 5:55 PM CDT Plan of Treatment Upcoming Encounters Date Type Department Care Team (Late st Contact Info) Description 01/28/2025 9:40 AM CDT Office [facility] [address] [place] [address] Serjio Santoro MD [address] [place] [address] Discharge Disposition: Discharged to home or Selfcare Health Maintenance Due Date Last Done Comments Diabetes: Eye Exam 1967 Diabetes: Foot Exam 1967 Hepatitis C Virus (HCV) Screening 1967 Mammogram 1967 Hepatitis B Immunization (1 of 3 - 19+ 3-dose series) 1986 Pap Smear 1988 Cervical Cancer Screening (CCS) 1997 HPV/Cotest 1997 Cologuard 2012 Colonoscopy 2012 Colorectal Cancer Screening 2012 Immunochemical Fecal Occult Blood 2012 Zoster Immunization (1 of 2) 2017 SARS-COV-2 Immunization ( season) 2024 08/17/2022, 04/07/2022, 03/14/2022 Diabetes: Hemoglobin A1c 05/17/2025 025, 08/16/2024, 03/11/2024, Additional history exists Diabetes: Nephropathy Screening 12/15/2025 12/15/2024, 12/08/2024, 12/01/2024, Additional history exists Respiratory Syncytial Virus (RSV) Immunization (Adult) (1 - 1-dose 75+ series) 2042 TdaP Immunization Completed 12/10/2023 Influenza Immunization Completed , 08/17/2022, 07/24/2017, Additional history exists Pneumococcal Immunization (50+ years) Completed 07/30/2024 Human Papillomavirus (HPV) Immunization Aged Out No longer eligible based on patient's age to complete this topic Meningococcal Immunization (ACWY) Aged Out No longer [...] of the skin and subcutaneous tissue, unspecified CBC WITH AUTO DIFFERENTIAL Routine 12/08/2024 10:50 AM CDT Local infection of the skin and subcutaneous tissue, unspecified COMPLETE BLOOD COUNT (CBC) WITH DIFF Routine 12/08/2024 10:50 AM CDT Local infection of the skin and subcutaneous tissue, unspecified CMP (COMPREHENSIVE METABOLIC PANEL) Routine 12/08/2024 10:50 AM CDT Local infection of the skin and subcutaneous tissue, unspecified CBC WITH AUTO DIFFERENTIAL Routine 12/01/2024 11:40 AM CDT Local infection of the skin and subcutaneous tissue, unspecified COMPLETE BLOOD COUNT (CBC) WITH DIFF Routine 12/01/2024 11:40 AM CDT Local infection of the skin and subcutaneous tissue, unspecified CMP (COMPREHENSIVE METABOLIC PANEL) Routine 12/01/2024 11:40 AM CDT Local infection of the skin and subcutaneous tissue, unspecified CBC WITH AUTO DIFFERENTIAL Routine 11/26/2024 11:35 AM CDT Local infection of the skin and subcutaneous tissue, unspecified COMPLETE BLOOD COUNT (CBC) WITH DIFF Routine 11/26/2024 11:35 AM CDT Local infection of the skin and subcutaneous tissue, unspecified CMP (COMPREHENSIVE METABOLIC PANEL) Routine 11/26/2024 11:35 AM CDT Local infection of the skin and subcutaneous tissue, unspecified POCT GLUCOSE Routine 11/21/2024 3:39 PM CDT POCT GLUCOSE Routine 11/21/2024 11:06 AM CDT POCT GLUCOSE Routine 11/21/2024 7:47 AM CDT CBC WITH AUTO DIFFERENTIAL Routine 11/21/2024 4:21 AM CDT COMPLETE BLOOD COUNT (CBC) WITH DIFF Routine 11/21/2024 4:21 AM CDT BASIC METABOLIC PANEL W/ CALCIUM TOTAL Routine 11/21/2024 4:21 AM CDT RHYTHM STRIP 11/21/2024 12:00 AM CDT RHYTHM STRIP 11/21/2024 12:00 AM CDT POCT GLUCOSE Routine 11/20/2024 7:28 PM CDT POCT GLUCOSE Routine 11/20/2024 4:[address] RIGHT FOOT W CONTRAST Routine 11/20/2024 4:28 PM CDT POCT GLUCOSE Routine 11/20/2024 12:37 PM CDT XR FOOT 3 OR MORE VIEWS RIGHT Routine 11/20/2024 10:11 AM CDT POCT GLUCOSE Routine 11/20/2024 7:02 AM CDT CBC WITH AUTO DIFFERENTIAL Routine 11/20/2024 5:23 AM CDT COMPLETE BLOOD COUNT (CBC) WITH DIFF Routine 11/20/2024 5:23 AM CDT BASIC METABOLIC PANEL W/ CALCIUM TOTAL Routine 11/20/2024 5:23 AM CDT VANCOMYCIN Timed 11/20/2024 5:23 AM CDT RHYTHM STRIP 11/20/2024 12:00 AM CDT RHYTHM STRIP 11/20/2024 12:00 AM CDT RHYTHM STRIP 11/20/2024 12:00 AM CDT POCT GLUCOSE Routine 11/19/2024 9:13 PM CDT POCT GLUCOSE Routine 11/19/2024 4:55 PM CDT POCT GLUCOSE Routine 11/19/2024 11:42 AM CDT POCT GLUCOSE Routine 11/19/2024 7:53 AM CDT CBC WITH AUTO DIFFERENTIAL Routine 11/19/2024 5:11 AM CDT COMPLETE BLOOD COUNT (CBC) WITH DIFF Routine 11/19/2024 5:11 AM CDT BASIC METABOLIC PANEL W/ CALCIUM TOTAL Routine 11/19/2024 5:11 AM CDT RHYTHM STRIP 11/19/2024 12:00 AM CDT RHYTHM STRIP 11/19/2024 12:00 AM CDT RHYTHM STRIP 11/19/2024 12:00 AM CDT POCT GLUCOSE Routine 11/18/2024 9:28 PM CDT POCT GLUCOSE Routine 11/18/2024 4:20 PM CDT US LEFT DUPLEX LOWER EXTREMITY VEINS Routine 11/18/2024 3:45 PM CDT POCT GLUCOSE Routine 11/18/2024 11:22 AM CDT POCT GLUCOSE Routine 11/18/2024 8:28 AM CDT CBC WITH AUTO DIFFERENTIAL Routine 11/18/2024 5:09 AM CDT THYROXINE (T4) FREE Routine 11/18/2024 5:09 AM CDT COMPLETE BLOOD COUNT (CBC) WITH DIFF Routine 11/18/2024 5:09 AM CDT BASIC METABOLIC PANEL W/ CALCIUM TOTAL Routine 11/18/2024 5:09 AM CDT APTT (PTT) Routine 11/18/2024 5:09 AM CDT RHYTHM STRIP 11/18/2024 12:00 AM CDT RHYTHM STRIP 11/18/2024 12:00 AM CDT RHYTHM STRIP 11/18/2024 12:00 AM CDT RHYTHM STRIP 11/18/2024 12:00 AM CDT POCT GLUCOSE Routine 11/17/2024 8:40 PM CDT POCT GLUCOSE Routine 11/17/2024 3:57 PM CDT APTT (PTT) Timed 11/17/2024 11:25 AM CDT POCT GLUCOSE Routine 11/17/2024 11:[address] ANGIO BILAT ABD AORTA ILIOFEMORAL W/WO Routine 11/17/2024 8:59 AM CDT POCT GLUCOSE Routine 11/17/2024 6:58 AM CDT CBC WITH AUTO DIFFERENTIAL Routine 11/17/2024 3:58 AM CDT VANCOMYCIN Timed 11/17/2024 3:58 AM CDT APTT (PTT) Routine 11/17/2024 3:58 AM CDT BASIC METABOLIC PANEL W/ CALCIUM TOTAL Routine 11/17/2024 3:58 AM CDT COMPLETE BLOOD COUNT (CBC) WITH DIFF Routine 11/17/2024 3:58 AM CDT RHYTHM STRIP 11/17/2024 12:00 AM CDT RHYTHM STRIP 11/17/2024 12:00 AM CDT APTT (PTT) Timed 11/16/2024 9:08 PM CDT POCT GLUCOSE Routine 11/16/2024 8:59 PM CDT POCT GLUCOSE Routine 11/16/2024 4:10 PM CDT APTT (PTT) Timed 11/16/2024 2:42 PM CDT POCT GLUCOSE Routine 11/16/2024 11:52 AM CDT XR KNEE 1 OR 2 VIEWS BILATERAL Stat with Interpretation 11/16/2024 9:50 AM CDT POCT GLUCOSE Routine 11/16/2024 7:08 AM CDT FLUID, DIFFERENTIAL Routine 11/16/2024 5:45 AM CDT BODY FLUID CELL COUNT W/ DIFFERENTIAL Routine 11/16/2024 5:45 AM CDT CULTURE, BODY FLUID (ESTEFANY) Routine 11/16/2024 5:45 AM CDT SMEAR, GRAM STAIN Routine 11/16/2024 5:4 5 AM CDT CULTURE, AEROBIC ONLY Routine 11/16/2024 5:45 AM CDT FLUID, DIFFERENTIAL Routine 11/16/2024 5:35 AM CDT BODY FLUID CELL COUNT W/ DIFFERENTIAL Routine 11/16/2024 5:35 AM CDT SMEAR, GRAM STAIN Routine 11/16/2024 5:3 5 AM CDT CULTURE, AEROBIC ONLY Routine 11/16/2024 5:35 AM CDT CBC WITH AUTO DIFFERENTIAL Routine 11/16/2024 4:56 AM CDT LIPID PANEL Routine 11/16/2024 4:56 AM CDT LACTIC ACID (LACTATE) Routine 11/16/2024 4:56 AM CDT BASIC METABOLIC PANEL W/ CALCIUM TOTAL Routine 11/16/2024 4:56 AM CDT COMPLETE BLOOD COUNT (CBC) WITH DIFF Routine 11/16/2024 4:56 AM CDT APTT (PTT) Routine 11/16/2024 3:20 AM CDT CULTURE, MRSA SCREEN Routine 11/15/2024 10:25 PM CDT APTT (PTT) STAT 11/15/2024 9:22 PM CDT PROTIME (PT) (PROTHROMBIN TIME) STAT 11/15/2024 9:22 PM CDT COMPLETE BLOOD COUNT (CBC) WITHOUT DIFF STAT 11/15/2024 9:22 PM CDT POCT GLUCOSE Routine 11/15/2024 9:14 PM CDT XR REFERENCE IMAGES FOR IMAGE IMPORT Routine 11/15/2024 8:[address] REFERENCE IMAGES FOR IMAGE IMPORT Routine 11/15/2024 8:52 PM CDT CULTURE, AEROBIC ONLY Routine 11/15/2024 8:28 PM CDT CULTURE, ANAEROBIC Routine 11/15/2024 8: 28 PM CDT CULTURE, AEROBIC ONLY Routine 11/15/2024 8:28 PM CDT CULTURE, ANAEROBIC Routine 11/15/2024 8: 28 PM CDT CULTURE, ANAEROBIC WITH CULTURE, AEROBIC Routine 11/15/2024 8:28 PM CDT CULTURE, ANAEROBIC WITH CULTURE, AEROBIC Routine 11/15/2024 8:28 PM CDT EKG 12 LEAD Stat with Interpretation 11/15/2024 7:32 PM CDT URINALYSIS REFLEX IF INDICATED BY ABNORMAL RESULTS Routine 11/15/2024 7:24 PM CDT URINE DRUG SCREEN STAT 11/15/2024 7:2 4 PM CDT CULTURE, URINE STAT 11/15/2024 7:24 PM CDT TROPONIN I, HIGH SENSITIVITY (HSTRP) Timed 11/15/2024 7:23 PM CDT LACTIC ACID (LACTATE) STAT 11/15/2024 7:[address] ABDOMEN PELVIS W/ CONTRAST Stat with Interpretation 11/15/2024 7:[address] ANGIO BILAT ABD AORTA ILIOFEMORAL W/WO Routine 11/15/2024 7:05 PM CDT GOLD TOP TUBE Routine 11/15/2024 5:15 PM CDT BLUE TOP TUBE Routine 11/15/2024 5:15 PM CDT EXTRA TUBES Routine 11/15/2024 5:15 PM CDT CBC WITH AUTO DIFFERENTIAL STAT 11/15/2024 5:01 PM CDT HEMOGLOBIN A1C W/ ESTIMATED GLUCOSE STAT 11/15/2024 5:01 PM CDT AMMONIA STAT 11/15/2024 5:01 PM CDT THYROXINE (T4) FREE STAT 11/15/2024 5:01 PM CDT THYROID STIMULATING HORMONE (TSH) STAT 11/15/2024 5:01 PM CDT TROPONIN I, HIGH SENSITIVITY (HSTRP) STAT 11/15/2024 5:01 PM CDT CREATINE KINASE (CK) TOTAL STAT 11/15/2024 5:01 PM CDT C-REACTIVE PROTEIN (CRP) QUANT STAT 11/15/2024 5:01 PM CDT LACTIC ACID (LACTATE) STAT 11/15/2024 5:01 PM CDT CMP (COMPREHENSIVE METABOLIC PANEL) STAT 11/15/2024 5:01 PM CDT COMPLETE BLOOD COUNT (CBC) WITH DIFF STAT 11/15/2024 5:01 PM CDT CULTURE, BLOOD STAT 11/15/2024 5:01 PM CDT CULTURE, BLOOD STAT 11/15/2024 5:01 PM CDT RHYTHM STRIP 11/15/2024 12:00 AM CDT EKG SCAN 11/15/2024 12:00 AM CDT EKG SCAN 11/15/2024 12:00 AM CDT XR - CHEST 11/15/2024 12:[address] - HEAD/NECK 11/15/2024 12:00 AM CDT from Last 3 Months Results * (ABNORMAL) CBC WITH AUTO DIFFERENTIAL (12/15/2024 1:03 PM CDT) Only the most recent of11 resultswithin the time period is included. WBC 4.18 4.00 - 12.00 10(3)/mcL 12/15/2024 2:[address] [facility] RBC 4.41 3.80 - 5.30 10(6)/mcL 12/15/2024 2:[address] [facility] HEMOGLOBIN (HGB) 12.1 12.0 - 15.8 g/dL 12/15/2024 2:20 PM CDT [facility] HEMATOCRIT (HCT) 38.2 36.0 - 47.0 % 12/15/2024 2:20 PM CDT [facility] MCV 86.6 82.0 - 96.0 fL 12/15/2024 2:20 PM CDT [facility] MCH 27.4 26.0 - 34.0 pg 12/15/2024 2:20 PM CDT [facility] MCHC 31.7 31.0 - 36.0 g/dL 12/15/2024 2:20 PM CDT [facility] PLATELET COUNT 130(L) 140 - 440 10(3)/mcL 12/15/2024 2:20 PM CDT [facility] RDW 15.9(H) 11.8 - 15.5 % 12/15/2024 2:20 PM CDT [facility] MPV 9.3(L) 9.7 - 12.4 fL 12/15/2024 2:20 PM CDT [facility] NEUTROPHILS 55.2 47.0 - 73.0 % 12/15/2024 2:20 PM CDT [facility] LYMPHOCYTES 28.0 18.0 - 42.0 % 12/15/2024 2:20 PM CDT [facility] MONOCYTES 14.1(H) 4.0 - 12.0 % 12/15/2024 2:20 PM CDT [facility] EOSINOPHILS 2.2 0.0 - 5.0 % 12/15/2024 2:20 PM CDT [facility] BASOPHILS 0.5 0.0 - 1.0 % 12/15/2024 2:20 PM CDT [facility] ABSOLUTE NEUTROPHILS 2.31 1.60 - 7.70 10(3)/mcL 12/15/2024 2:20 PM CDT [facility] ABSOLUTE LYMPHOCYTES 1.17(L) 1.30 - 3.20 10(3)/[facility] 12/15/2024 2:20 PM CDT [facility] ABSOLUTE MONOCYTES 0.59 0.20 - 1.00 10(3)/[facility] 12/15/2024 2:20 PM CDT [facility] ABSOLUTE EOSINOPHIL 0.09 0.00 - 0.40 10(3)/[facility] 12/15/2024 2:20 PM CDT [facility] ABSOLUTE BASOPHILS 0.02 0.00 - 0.10 10(3)/[facility] 12/15/2024 2:20 PM CDT [facility] NRBC PER 100 WBC 0 12/16/19 2:20 PM CDT [facility] Blood No Phlebotomy Charged / Unknown 12/15/2024 1:03 PM CDT 12/15/2024 2:09 PM CDT us Jesse Wheeler MD HEMATOLOGY ORDERABLES Fi nal Result [facility] [address] [place] [address] * (ABNORMAL) CMP (COMPREHENSIVE METABOLIC PANEL) (12/15/2024 1:03 PM CDT) Only the most recent of5 resultswithin the time period is included. SODIUM 137 136 - 145 mmol/L 12/15/2024 2:30 PM CDT [facility] POTASSIUM 3.6 3.5 - 5.1 mmol/L 12/15/2024 2:30 PM CDT [facility] CHLORIDE 104 98 - 107 mmol/L 12/15/2024 2:30 PM CDT [facility] CO2, VENOUS 27 22 - 30 mmol/L 12/15/2024 2:30 PM CDT [facility] ANION GAP 9.6 <18.0 mmol/L 12/15/2024 2:[address] [facility] GLUCOSE 146(H) 70 - 99 mg/dL 12/15/2024 2:30 PM CDT [facility] BUN 16 10 - 20 mg/dL 12/15/2024 2:30 PM CDT [facility] CREATININE, BLOOD 0.67 0.60 - 1.00 mg/dL 12/15/2024 2:30 PM CDT [facility] BUN/CREATININE RATIO 24(H) 12 - 20 ratio 12/15/2024 2:30 PM CDT [facility] TOTAL PROTEIN 9.4(H) 6.0 - 8.0 g/dL 12/15/2024 2:30 PM CDT [facility] ALBUMIN 3.0(L) 3.5 - 5.0 g/dL 12/15/2024 2:30 PM CDT [facility] A/G RATIO 0.5(L) 1.0 - 2.2 12/15/2024 2:30 PM CDT [facility] CALCIUM 8.6(L) 8.7 - 10.5 mg/dL 12/15/2024 2:30 PM CDT [facility] T BILI 0.5 0.2 - 1.2 mg/dL 12/15/2024 2:30 PM CDT [facility] SGOT (AST) 57(H) <43 U/L 12/15/2024 2:30 PM CDT [facility] SGPT (ALT) 10 <56 U/L 12/15/2024 2:30 PM CDT [facility] ALKALINE PHOSPHATASE 175(H) 40 - 150 U/L 12/15/2024 2:30 PM CDT [facility] GFR, ESTIMATED >60 >=60 12/15/2024 2:[address] [facility] Comment: Creatinine Clearance is the preferred criteria for selecting drug dose adjustments in renally impaired patients. The GFR is provided as additional pertinent clinical information. GFR is reported in mL/min/1.73 sq m. Calculation based on the Chronic Kidney Disease Epidemiology Collaboration (CKD- EPI) equation refit without adjustment for race. GFR, EST. >60 >=60 025 2:[address] [facility] GFR, EST. NONAFRICAN >60 >=60 12/15/2024 2:[address] [facility] Blood No Phlebotomy Charged / Unknown 12/15/2024 1:03 PM CDT 12/15/2024 2:09 PM CDT us Jesse Wheeler MD CHEMISTRY ORDERABLES Fin al Result Performing Organization Address City/[facility] Co de Phone Number [facility] [address] [place] [address] * (ABNORMAL) POCT Glucose (11/21/2024 3:39 PM CDT) Only the most recent of24 resultswithin the time period is included. [facility] Signature GLUCOSE,BEDSID E POCT 218(H) 70 - 99 mg/dL 11/21/2024 3:45 PM CDT [facility] Blood 11/21/2024 3:39 PM CDT 11/21/2024 3:45 PM CDT us None Provider POINT OF CARE TESTING Final Resu lt Performing Organization Address City/[facility] Co de Phone Number [facility] [address] [place] [address] * (ABNORMAL) BMP AM (11/21/2024 4:21 AM CDT) Only the most recent of6 resultswithin the time period is included. SODIUM 138 136 - 145 mmol/L 11/21/2024 5:38 AM [facility] POTASSIUM 3.6 3.5 - 5.1 mmol/L 11/21/2024 5:38 AM [facility] CHLORIDE 108(H) 98 - 107 mmol/L 11/21/2024 5:38 AM [facility] CO2, VENOUS 22 22 - 30 mmol/L 11/21/2024 5:38 AM [facility] ANION GAP 11.6 <18.0 mmol/L 11/21/2024 5:38 AM [facility] GLUCOSE 210(H) 70 - 99 mg/dL 11/21/2024 5:38 AM [facility] BUN 12 10 - 20 mg/dL 11/21/2024 5:38 AM [facility] CREATININE, BLOOD 0.65 0.60 - 1.00 mg/dL 11/21/2024 5:38 AM [facility] BUN/CREATININE RATIO 18 12 - 20 ratio 11/21/2024 5:38 AM [facility] CALCIUM 8.0(L) 8.7 - 10.5 mg/dL 11/21/2024 5:38 AM [facility] GFR, ESTIMATED >60 >=60 11/21/2024 5:38 AM [facility] Comment: Creatinine Clearance is the preferred criteria for selecting drug dose adjustments in renally impaired patients. The GFR is provided as additional pertinent clinical information. GFR is reported in mL/min/1.73 sq m. Calculation based on the Chronic Kidney Disease Epidemiology Collaboration (CKD- EPI) equation refit without adjustment for race. GFR, EST. >60 >=60 025 5:38 AM [facility] GFR, EST. NONAFRICAN >60 >=60 11/21/2024 5:38 AM [facility] Blood BLOOD SPECIMEN / Unknown Venipuncture / Unknown 11/21/2024 4:21 AM CDT 11/21/2024 5:09 AM CDT us Sheyla English APRN, CNP CHEMISTRY ORDERABLES Final Result [facility] [address] [place] [address] * RHYTHM STRIP (11/21/2024 12:00 AM CDT) Only the most recent of15 resultswithin the time period is included. 11/21/2024 us Provider Scan IMG ECG ORDERABLES Final Result Performing Organization Address City/[facility] Co de Phone Number RESULTING AGENCY * CT RIGHT FOOT W CONTRAST (11/20/2024 4:28 PM CDT) Anatomical Region Laterality Modality LOWER EXTREMITY Right Computed Tomogra phy 11/20/2024 4:50 PM CDT Impressions 11/20/2024 4:52 PM CDT IMPRESSION: Postsurgical changes. Focal cortical lucency at the distal aspect of the 1st metatarsal resection site, which would raise the possibility of osteomyelitis if there is overlying skin ulceration. Dorsal soft tissue swelling in the foot. No drainable abscess. 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 Narrative 11/20/2024 4:52 PM CDT EXAM DESCRIPTION: CT RIGHT FOOT W CONTRAST REASON FOR STUDY: Right diabetic foot wound. Hx right toes amputation. Foot wound cultures + MRSA and Proteus mirabilis. osteomyelitis suspected. TECHNIQUE: Multidetector CT scan of the right foot was performed after intravenous contrast. 3D surface rendered images as well as coronal and sagittal images were reconstructed. 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 There has been partial resection of the 1st metatarsal and 2nd middle phalanx, with complete resection of the 1st digit phalanges and the 2nd distal phalanx. No acute fracture is identified. There is focal cortical lucency at the distal aspect of the 1st metatarsal resection site (axial series 2 image 60, sagittal series 402 image 53). This would raise the possibility of infection. No periosteal reaction is seen. 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 Soft Tissues: Dorsal soft tissue swelling in the foot. No drainable abscess. Atrophy of the plantar foot musculature. Other: No other finding. THIS IS AN ELECTRONICALLY VERIFIED FINAL REPORT 11/20/2024 4:50 PM - Electronically signed by Johnny Reyes M.D. JR: Report ID: [id number] Reading Location: [id number] Procedure Note Johnny Reyes MD - 11/20/2024 EXAM DESCRIPTION: CT RIGHT FOOT W CONTRAST REASON FOR STUDY: Right diabetic foot wound. Hx right toes amputation. Foot wound cultures + MRSA and Proteus mirabilis. osteomyelitis suspected. TECHNIQUE: Multidetector CT scan of the right foot was performed after intravenous contrast. 3D surface rendered images as well as coronal and sagittal images were reconstructed. 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 There has been partial resection of the 1st metatarsal and 2nd middle phalanx, with complete resection of the 1st digit phalanges and the 2nd distal phalanx. No acute fracture is identified. There is focal cortical lucency at the distal aspect of the 1st metatarsal resection site (axial series 2 image 60, sagittal series 402 image 53). This would raise the possibility of infection. No periosteal reaction is seen. 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 Soft Tissues: Dorsal soft tissue swelling in the foot. No drainable abscess. Atrophy of the plantar foot musculature. Other: No other finding. THIS IS AN ELECTRONICALLY VERIFIED FINAL REPORT 11/20/2024 4:50 PM - Electronically signed by Johnny Reyes M.D. JR: Report ID: [id number] Reading Location: [id number] IMPRESSION: Postsurgical changes. Focal cortical lucency at the distal aspect of the 1st metatarsal resection site, which would raise the possibility of osteomyelitis if there is overlying skin ulceration. Dorsal soft tissue swelling in the foot. No drainable abscess. 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 Jesse Wheeler MD IMG CT ORDERABLES Final Result * XR FOOT 3 OR MORE VIEWS RIGHT (11/20/2024 10:11 AM CDT) Anatomical Region Laterality Modality LOWER EXTREMITY, foot Right Digital Ra diography 11/20/2024 12:4 2 PM CDT Impressions 11/20/2024 12:45 PM CDT IMPRESSION: Severe arthritis in the midfoot and subtalar joint. Vague lytic change in the posterior calcaneus. This is of uncertain significance. If osteomyelitis is suspected clinically, consider MRI. Narrative 11/20/2024 12:45 PM CDT EXAM DESCRIPTION: XR FOOT 3 OR MORE VIEWS RIGHT REASON FOR STUDY: osteomyelitis- admitted 11/15/2024 for acute infective cystitiss-wound to posterior heel since August 2024- ulcer debriedment last night- follow up examination- HX diabetic neuroptathy TECHNIQUE: 3 radiographic view(s) of the right foot . COMPARISON: None FINDINGS: BONES/JOINTS: Amputation of the 1st toe at the level of the distal metatarsal is noted. Severe arthritis is seen in the midfoot and subtalar joint. A calcaneal spur is seen. Some vague lytic change is seen in the posterior calcaneus. This is of uncertain significance. SOFT TISSUES: No soft tissue gas was seen. Swelling is seen in the forefoot. THIS IS AN ELECTRONICALLY VERIFIED FINAL REPORT 11/20/2024 12:42 PM - Electronically signed by Yogesh Morocho M.D. SETH: SETH Report ID: [id number] Reading Location: [id number] Procedure Note Roshan Morocho MD - 11/20/2024 EXAM DESCRIPTION: XR FOOT 3 OR MORE VIEWS RIGHT REASON FOR STUDY: osteomyelitis- admitted 11/15/2024 for acute infective cystitiss-wound to posterior heel since August 2024- ulcer debriedment last night- follow up examination- HX diabetic neuroptathy TECHNIQUE: 3 radiographic view(s) of the right foot . COMPARISON: None FINDINGS: BONES/JOINTS: Amputation of the 1st toe at the level of the distal metatarsal is noted. Severe arthritis is seen in the midfoot and subtalar joint. A calcaneal spur is seen. Some vague lytic change is seen in the posterior calcaneus. This is of uncertain significance. SOFT TISSUES: No soft tissue gas was seen. Swelling is seen in the forefoot. THIS IS AN ELECTRONICALLY VERIFIED FINAL REPORT 11/20/2024 12:42 PM - Electronically signed by Yogesh Morocho M.D. SETH: SETH Report ID: [id number] Reading Location: [id number] IMPRESSION: Severe arthritis in the midfoot and subtalar joint. Vague lytic change in the posterior calcaneus. This is of uncertain significance. If osteomyelitis is suspected clinically, consider MRI. Juvenal Rios DPM IMG DIAGNOSTIC ORDERABLES F inal Result * (ABNORMAL) Vancomycin Level (11/20/2024 5:23 AM CDT) Only the most recent of2 resultswithin the time period is included. VANCOMYCIN RESULT 16(L) 20 - 40 mcg/mL 11/20/2024 5:53 AM CDT [facility] Blood Venipuncture / Unknown 11/20/2024 5:23 AM CDT 11/20/2024 5:30 AM CDT Narrative [facility] - 11/20/2024 5:53 AM CDT CALL PHARMACY FOR THERAPEUTIC RANGE. Hardeep Hagan MD CHEMISTRY ORDERABLES Final Res ult [facility] [address] [place] [address] * US LEFT DUPLEX LOWER EXTREMITY VEINS (11/18/2024 3:45 PM CDT) Anatomical Region Laterality Modality vascular Left Ultrasound 11/18/2024 4:40 PM CDT Impressions 11/18/2024 4:43 PM CDT IMPRESSION: No lower extremity deep venous thrombosis. Narrative 11/18/2024 4:43 PM CDT EXAM DESCRIPTION: US LEFT DUPLEX LOWER EXTREMITY VEINS REASON FOR STUDY: Suspicion of DVT, lower extremity swelling. TECHNIQUE: Duplex scan using the B-mode, spectral Doppler, and color-flow Doppler of the deep venous system of the left lower extremity was performed. Images stored on PACS. COMPARISON: None. FINDINGS: The common femoral, common femoral-saphenous vein confluence, visualized profunda femoral, superficial femoral, and popliteal veins are readily compressible with no intraluminal thrombus on bryan scale images. There is normal color and spectral Doppler signal, including augmentation. Greater saphenous vein appears patent. Visualized calf veins are patent. There is a prominent left groin lymph node 3.1 x 2.5 x 0.9 cm, with an echogenic hilum and vascular flow. There is edema noted in the soft tissues. THIS IS AN ELECTRONICALLY VERIFIED FINAL REPORT 11/18/2024 4:40 PM - Electronically signed by Molina Sotelo M.D. CH: Report ID: [id number] Reading Location: [id number] Procedure Note Molina Sotelo Jr., MD - 11/18/2024 EXAM DESCRIPTION: US LEFT DUPLEX LOWER EXTREMITY VEINS REASON FOR STUDY: Suspicion of DVT, lower extremity swelling. TECHNIQUE: Duplex scan using the B-mode, spectral Doppler, and color-flow Doppler of the deep venous system of the left lower extremity was performed. Images stored on PACS. COMPARISON: None. FINDINGS: The common femoral, common femoral-saphenous vein confluence, visualized profunda femoral, superficial femoral, and popliteal veins are readily compressible with no intraluminal thrombus on bryan scale images. There is normal color and spectral Doppler signal, including augmentation. Greater saphenous vein appears patent. Visualized calf veins are patent. There is a prominent left groin lymph node 3.1 x 2.5 x 0.9 cm, with an echogenic hilum and vascular flow. There is edema noted in the soft tissues. THIS IS AN ELECTRONICALLY VERIFIED FINAL REPORT 11/18/2024 4:40 PM - Electronically signed by Molina Sotelo M.D. CH: Report ID: [id number] Reading Location: [place] [id number] IMPRESSION: No lower extremity deep venous thrombosis. Hardeep Hagan MD IMG US ORDERABLES Final Result * THYROXINE (T4) FREE (11/18/2024 5:09 AM CDT) Only the most recent of2 resultswithin the time period is included. T4 FREE 1.0 0.7 - 1.9 ng/dL 11/18/2024 10:[address] [facility] Blood BLOOD SPECIMEN / Unknown Venipuncture / Unknown 11/18/2024 5:09 AM CDT 11/18/2024 5:28 AM CDT Hardeep Hagan MD CHEMISTRY ORDERABLES Final Res ult [facility] [address] [place] [address] * (ABNORMAL) PTT (Partial Thromboplastin Time) - Daily AM. Retime if drawn within 6 hours. (11/18/2024 5:09 AM CDT) Only the most recent of7 resultswithin the time period is included. PTT 72(H) 24 - 36 sec 11/18/2024 5:[address] [facility] Blood Venipuncture / Unknown 11/18/2024 5:09 AM CDT 11/18/2024 5:28 AM CDT Narrative [facility] - 11/18/2024 5:47 AM CDT Therapeutic range for unfractionated heparin at 0.3-0.7 U/mL is an aPTT value in the range of 71-100 seconds. Critical value for the PTT test is >= 122 seconds. us Selma Panda APRN, CNP HEMATOLOGY ORDERABLES Fin al Result [facility] [address] [place] [address] * CT ANGIO BILAT ABD AORTA ILIOFEMORAL W/WO (11/17/2024 8:59 AM CDT) Only the most recent of2 resultswithin the time period is included. Anatomical Region Laterality Modality vascular Bilateral Computed Tomogra phy 11/17/2024 11:0 5 AM CDT Impressions 11/17/2024 11:08 AM CDT IMPRESSION: Significantly limited evaluation of the vasculature due to suboptimal arterial contrast and streak artifact from right hip arthroplasty. 1. Right lower extremity: Evidence of a least moderate common femoral artery stenoses. Severe distal superficial femoral artery stenosis with extensive moderate and mild stenoses elsewhere. Moderate popliteal stenoses. Limited evaluation of the vasculature below the knee with apparent three-vessel runoff. 2. Left lower extremity: Evidence of a least moderate stenoses throughout the superficial femoral and popliteal arteries. Significantly limited evaluation of the arteries below the knee with venous contamination. Evidence of three-vessel runoff. 3. Asymmetric subcutaneous edema within the left lower extremity. Recommend correlation with physical examination. 4. The abdomen and pelvis was better evaluated on the dedicated CT of the abdomen and pelvis on 11/15/2024. Please refer to that report for further findings and follow-up recommendations. Narrative 11/17/2024 11:08 AM CDT EXAM DESCRIPTION: CT ANGIO BILAT ABD AORTA ILIOFEMORAL W/WO REASON FOR STUDY: F/U bilat lower extremity wounds on feet. Pt states cellulitis of left leg. Hx of right toes amputation. TECHNIQUE: CTA of the abdominal aorta with bilateral lower extremity runoff was performed without and with intravenous contrast using helical scanning technique. Precontrast and arterial images were obtained of the lower extremities. Images reviewed with soft tissue and bone windows. Reconstructed coronal and sagittal MPR images reviewed. All images stored on PACS. 3D MIP images rendered on scanning unit and reviewed at time of interpretation. Automated exposure control was used as a dose optimization technique for this examination. CONTRAST TYPE/DOSE: 124mL of IOPAMIDOL 76 % IV SOLN injected via Intravenous COMPARISON: 11/15/2024 VASCULATURE The examination is significantly limited by poor arterial contrast as well as streak artifact from a right hip arthroplasty. ABDOMINAL AORTA: The abdominal aorta is partially included within the field of view. No aneurysm is seen. Moderate atherosclerosis is noted. The superior mesenteric artery origin is partially included within the field of view. Mild stenosis of the origin of the left renal artery. Moderate stenosis of the origin of the right renal artery. The inferior mesenteric artery is patent. PELVIC VASCULATURE: Mild right common iliac artery stenosis. Mild distal right external iliac artery stenosis. Right internal iliac artery is patent. Mild stenosis of the origin of the left common iliac artery. Mild stenoses elsewhere. No significant left external iliac artery stenosis. The left internal iliac artery is patent. RIGHT LOWER EXTREMITY VASCULATURE: The right common femoral artery is obscured by streak artifact from a right hip arthroplasty. Atherosclerosis is noted. Inferiorly there is moderate stenosis. Mild stenosis of the proximal profunda. Mild-moderate stenosis the origin of the superficial femoral artery. Extensive atherosclerosis and streak artifact within the proximal superficial femoral artery limits evaluation. There are evidence of at least moderate and mild stenoses within the mid thigh. Severe distal stenosis is noted due to calcified and noncalcified plaque, not well evaluated. Mild and moderate stenoses of the popliteal artery above the knee. Significant limited evaluation below the knee due to limited contrast. At least mild stenosis below the knee. Prominent atherosclerotic plaque of the proximal anterior tibial artery. The artery is otherwise patent in followed to the dorsalis pedis. Minimal stenosis of the TP trunk. Peroneal artery is patent without significant stenosis and followed to the upper ankle. The posterior tibial artery is patent without significant stenosis and followed to the foot. Atherosclerosis is noted within the plantar artery distally. LEFT LOWER EXTREMITY VASCULATURE: Mild stenosis of the left common femoral artery. The profunda is patent without significant stenosis. Mild-moderate stenosis of the origin of the superficial femoral artery. Evidence of least moderate stenoses throughout the superficial femoral artery with limited contrast again noted. Evidence of at least moderate stenosis of the proximal popliteal artery above the knee. Mild stenosis at the knee. Mild-moderate stenoses below the knee. Limited evaluation of the arteries below the knee due to limited contrast in venous contamination. The anterior tibial artery appears to be patent and followed to the dorsalis pedis. Mild stenosis of the proximal peroneal artery. The artery is otherwise patent in followed to the ankle. The posterior tibial artery appears to be patent. ABDOMEN/PELVIS: LOWER CHEST: Not included within the field of view. LIVER: Partially included within the field of view. Incompletely evaluated findings of cirrhosis. The reported possible liver mass and portal vein thrombus as seen on the recent CT is not appreciated. GALLBLADDER: Partially distended, previously distended on 11/15/2024. Gallbladder wall edema is noted in likely due to the patient's underlying liver disease. Small stones are seen. BILE DUCTS: Partially included within the field of view SPLEEN: Partially included within the field of view. Calcified granulomas. PANCREAS: Partially included within the field of view. No gross abnormality. ADRENALS: Not included within the field of view. KIDNEYS/URINARY TRACT: Partially included within the field of view. No hydronephrosis is seen. Urinary bladder is partially distended. Small amount of gas is noted within the antidependent urinary bladder lumen which is likely due to the recent catheter. GI: The bowel is partially included within the field of view. No evidence of bowel obstruction PERITONEUM: No significant ascites. Trace presacral fluid is noted. No organized drainable fluid collection. No free air. Indeterminate periportal lymph nodes are seen. These are better evaluated on the recent abdominal CT. RETROPERITONEUM: Prominent retroperitoneal lymph nodes are redemonstrated REPRODUCTIVE: Indeterminate retroperitoneal lymphadenopathy redemonstrated and better evaluated on the recent abdominal CT. Recommend close attention on follow-up imaging. MUSCULOSKELETAL: Asymmetric subcutaneous edema within the left lower extremity no drainable fluid collection is seen. Limited evaluation of the feet due to motion artifact. Significant lumbar degenerative disc disease. OTHER: No other abnormality. THIS IS AN ELECTRONICALLY VERIFIED FINAL REPORT 11/17/2024 11:05 AM - Electronically signed by Daryl Rachel M.D. AG: DOMINIK Report ID: [id number] Reading Location: [id number] Procedure Note Daryl Rachel MD - 11/17/2024 EXAM DESCRIPTION: CT ANGIO BILAT ABD AORTA ILIOFEMORAL W/WO REASON FOR STUDY: F/U bilat lower extremity wounds on feet. Pt states cellulitis of left leg. Hx of right toes amputation. TECHNIQUE: CTA of the abdominal aorta with bilateral lower extremity runoff was performed without and with intravenous contrast using helical scanning technique. Precontrast and arterial images were obtained of the lower extremities. Images reviewed with soft tissue and bone windows. Reconstructed coronal and sagittal MPR images reviewed. All images stored on PACS. 3D MIP images rendered on scanning unit and reviewed at time of interpretation. Automated exposure control was used as a dose optimization technique for this examination. CONTRAST TYPE/DOSE: 124mL of IOPAMIDOL 76 % IV SOLN injected via Intravenous COMPARISON: 11/15/2024 VASCULATURE The examination is significantly limited by poor arterial contrast as well as streak artifact from a right hip arthroplasty. ABDOMINAL AORTA: The abdominal aorta is partially included within the field of view. No aneurysm is seen. Moderate atherosclerosis is noted. The superior mesenteric artery origin is partially included within the field of view. Mild stenosis of the origin of the left renal artery. Moderate stenosis of the origin of the right renal artery. The inferior mesenteric artery is patent. PELVIC VASCULATURE: Mild right common iliac artery stenosis. Mild distal right external iliac artery stenosis. Right internal iliac artery is patent. Mild stenosis of the origin of the left common iliac artery. Mild stenoses elsewhere. No significant left external iliac artery stenosis. The left internal iliac artery is patent. RIGHT LOWER EXTREMITY VASCULATURE: The right common femoral artery is obscured by streak artifact from a right hip arthroplasty. Atherosclerosis is noted. Inferiorly there is moderate stenosis. Mild stenosis of the proximal profunda. Mild-moderate stenosis the origin of the superficial femoral artery. Extensive atherosclerosis and streak artifact within the proximal superficial femoral artery limits evaluation. There are evidence of at least moderate and mild stenoses within the mid thigh. Severe distal stenosis is noted due to calcified and noncalcified plaque, not well evaluated. Mild and moderate stenoses of the popliteal artery above the knee. Significant limited evaluation below the knee due to limited contrast. At least mild stenosis below the knee. Prominent atherosclerotic plaque of the proximal anterior tibial artery. The artery is otherwise patent in followed to the dorsalis pedis. Minimal stenosis of the TP trunk. Peroneal artery is patent without significant stenosis and followed to the upper ankle. The posterior tibial artery is patent without significant stenosis and followed to the foot. Atherosclerosis is noted within the plantar artery distally. LEFT LOWER EXTREMITY VASCULATURE: Mild stenosis of the left common femoral artery. The profunda is patent without significant stenosis. Mild-moderate stenosis of the origin of the superficial femoral artery. Evidence of least moderate stenoses throughout the superficial femoral artery with limited contrast again noted. Evidence of at least moderate stenosis of the proximal popliteal artery above the knee. Mild stenosis at the knee. Mild-moderate stenoses below the knee. Limited evaluation of the arteries below the knee due to limited contrast in venous contamination. The anterior tibial artery appears to be patent and followed to the dorsalis pedis. Mild stenosis of the proximal peroneal artery. The artery is otherwise patent in followed to the ankle. The posterior tibial artery appears to be patent. ABDOMEN/PELVIS: LOWER CHEST: Not included within the field of view. LIVER: Partially included within the field of view. Incompletely evaluated findings of cirrhosis. The reported possible liver mass and portal vein thrombus as seen on the recent CT is not appreciated. GALLBLADDER: Partially distended, previously distended on 11/15/2024. Gallbladder wall edema is noted in likely due to the patient's underlying liver disease. Small stones are seen. BILE DUCTS: Partially included within the field of view SPLEEN: Partially included within the field of view. Calcified granulomas. PANCREAS: Partially included within the field of view. No gross abnormality. ADRENALS: Not included within the field of view. KIDNEYS/URINARY TRACT: Partially included within the field of view. No hydronephrosis is seen. Urinary bladder is partially distended. Small amount of gas is noted within the antidependent urinary bladder lumen which is likely due to the recent catheter. GI: The bowel is partially included within the field of view. No evidence of bowel obstruction PERITONEUM: No significant ascites. Trace presacral fluid is noted. No organized drainable fluid collection. No free air. Indeterminate periportal lymph nodes are seen. These are better evaluated on the recent abdominal CT. RETROPERITONEUM: Prominent retroperitoneal lymph nodes are redemonstrated REPRODUCTIVE: Indeterminate retroperitoneal lymphadenopathy redemonstrated and better evaluated on the recent abdominal CT. Recommend close attention on follow-up imaging. MUSCULOSKELETAL: Asymmetric subcutaneous edema within the left lower extremity no drainable fluid collection is seen. Limited evaluation of the feet due to motion artifact. Significant lumbar degenerative disc disease. OTHER: No other abnormality. THIS IS AN ELECTRONICALLY VERIFIED FINAL REPORT 11/17/2024 11:05 AM - Electronically signed by Daryl Rachel M.D. AG: DOMINIK Report ID: [id number] Reading Location: [id number] IMPRESSION: Significantly limited evaluation of the vasculature due to suboptimal arterial contrast and streak artifact from right hip arthroplasty. 1. Right lower extremity: Evidence of a least moderate common femoral artery stenoses. Severe distal superficial femoral artery stenosis with extensive moderate and mild stenoses elsewhere. Moderate popliteal stenoses. Limited evaluation of the vasculature below the knee with apparent three-vessel runoff. 2. Left lower extremity: Evidence of a least moderate stenoses throughout the superficial femoral and popliteal arteries. Significantly limited evaluation of the arteries below the knee with venous contamination. Evidence of three-vessel runoff. 3. Asymmetric subcutaneous edema within the left lower extremity. Recommend correlation with physical examination. 4. The abdomen and pelvis was better evaluated on the dedicated CT of the abdomen and pelvis on 11/15/2024. Please refer to that report for further findings and follow-up recommendations. Chiara Glass MD IM CT ORDERABLES Final Resul t * XR KNEE 1 OR 2 VIEWS BILATERAL (11/16/2024 9:50 AM CDT) Anatomical Region Laterality Modality LOWER EXTREMITY, knee Bilateral Digital Ra diography 11/16/2024 10:1 3 AM CDT Impressions 11/16/2024 10:15 AM CDT IMPRESSION: Oblique focus of sclerosis involving the left fibular neck, which is concerning for a minimally displaced healing fracture. Degenerative changes of the bilateral knees without definite evidence of acute displaced fracture involving the right knee. Focal osteopenia involving the left fibular head, which is indeterminate in etiology. The necessity of further evaluation with MRI can be determined clinically. Small suprapatellar joint effusion involving the left knee and trace suprapatellar joint effusion involving the right knee. Nonspecific soft tissue swelling involving the bilateral knees. Narrative 11/16/2024 10:15 AM CDT EXAM DESCRIPTION: XR KNEE 1 OR 2 VIEWS BILATERAL REASON FOR STUDY: Evaluation of knees for possible arthrocentesis as requested by orthopedic surgeon TECHNIQUE: Frontal and lateral view(s) of the bilateral knees COMPARISON: 11/15/2024 FINDINGS: There is mild osteopenia. There is no definite evidence of acute displaced fracture or dislocation involving the right knee. There are degenerative changes right knee with joint space narrowing, mild spurring, and minimal sclerosis. There is a trace suprapatellar joint effusion. There is nonspecific soft tissue swelling. There are scattered vascular calcifications noted. There is a oblique focus of sclerosis involving the left fibular neck, which is concerning for a minimally displaced healing fracture. There is focal osteopenia involving the left fibular head, which is indeterminate in etiology. There are degenerative changes of the left knee with joint space narrowing, spurring, and mild sclerosis. There is whlq-tp-[id number] articulation of the lateral compartment with near dnyc-ga-aurl articulation of the medial compartment. There is a small suprapatellar joint effusion. There is soft tissue swelling. There are scattered vascular calcifications noted. THIS IS AN ELECTRONICALLY VERIFIED FINAL REPORT 11/16/2024 10:13 AM - Electronically signed by Alanis Carvajal D.O. PS: PRANAY Report ID: [id number] Reading Location: [place] [address] Procedure Note Alanis Carvajal DO - 11/16/2024 EXAM DESCRIPTION: XR KNEE 1 OR 2 VIEWS BILATERAL REASON FOR STUDY: Evaluation of knees for possible arthrocentesis as requested by orthopedic surgeon TECHNIQUE: Frontal and lateral view(s) of the bilateral knees COMPARISON: 11/15/2024 FINDINGS: There is mild osteopenia. There is no definite evidence of acute displaced fracture or dislocation involving the right knee. There are degenerative changes right knee with joint space narrowing, mild spurring, and minimal sclerosis. There is a trace suprapatellar joint effusion. There is nonspecific soft tissue swelling. There are scattered vascular calcifications noted. There is a oblique focus of sclerosis involving the left fibular neck, which is concerning for a minimally displaced healing fracture. There is focal osteopenia involving the left fibular head, which is indeterminate in etiology. There are degenerative changes of the left knee with joint space narrowing, spurring, and mild sclerosis. There is kulp-qa-bbpx articulation of the lateral compartment with near jzil-wc-xfkn articulation of the medial compartment. There is a small suprapatellar joint effusion. There is soft tissue swelling. There are scattered vascular calcifications noted. THIS IS AN ELECTRONICALLY VERIFIED FINAL REPORT 11/16/2024 10:13 AM - Electronically signed by Alanis Carvajal D.O. PS: PS Report ID: [id number] Reading Location: [id number] IMPRESSION: Oblique focus of sclerosis involving the left fibular neck, which is concerning for a minimally displaced healing fracture. Degenerative changes of the bilateral knees without definite evidence of acute displaced fracture involving the right knee. Focal osteopenia involving the left fibular head, which is indeterminate in etiology. The necessity of further evaluation with MRI can be determined clinically. Small suprapatellar joint effusion involving the left knee and trace suprapatellar joint effusion involving the right knee. Nonspecific soft tissue swelling involving the bilateral knees. us Chiara Glass MD IMG DIAGNOSTIC ORDERABLES [facility] Result * SMEAR, GRAM STAIN (11/16/2024 5:45 AM CDT) Only the most recent of2 resultswithin the time period is included. GRAM STAIN No Organisms seen 11/17/2024 5:37 PM CDT [facility] Other (Sterile Body Fluid) Non-Phlebotomy Collection / Unknown 11/16/2024 5:45 AM CDT 11/16/2024 6:16 PM CDT us Godfrey Foley MD MICROBIOLOGY - GENERAL ORDERABLE S Final Result [facility] [address] [place] [address], [place] * Fluid, Differential (11/16/2024 5:45 AM CDT) Only the most recent of2 resultswithin the time period is included. FLUID NEUTROPHILS % 14 % 11/16/2024 8:30 PM CDT [facility] FLUID LYMPH % BKR 15 % 025 8:30 PM CDT [facility] FLUID MONO % 71 % 11/16/2024 8:30 PM CDT [facility] FLUID EOSINOPHILS % BKR 0 % 11/16/2024 8:30 PM CDT [facility] FLUID MACROPHAGE % 0 % 11/16/2024 8:[address] [facility] FLUID PLASMA CELL % 0 % 11/16/2024 8:[address] [facility] FLUID LINING CELL % 0 % 11/16/2024 8:[address] [facility] FLUID OTHER CELL % 0 % 11/16/2024 8:[address] [facility] TOTAL COUNT BODY FLUID DIFFERENTIAL BKR 100 11/16/2024 8:30 PM CDT [facility] FLUID LARGE MONO % BKR 0 % 11/16/2024 8:[address] [facility] FLUID TYPE Knee, left 11/16/2024 8:[address] [facility] Other Non-Phlebotomy Collection / Unknown 11/16/2024 5:45 AM CDT 11/16/2024 6:16 PM CDT Godfrey Foley MD BODY FLUIDS & STOOLS ORDERABLES Final Result [facility] [address] [place] [address] * Body Fluid Cell Count w/ Differential (11/16/2024 5:45 AM CDT) Only the most recent of2 resultswithin the time period is included. FLUID TYPE Knee, left 11/16/2024 8:[address] [facility] CLARITY Cloudy 11/16/2024 8:30 PM CDT [facility] COLOR Elizabeth 11/16/2024 8:30 PM CDT [facility] VOLUME 25.0 mLs 11/16/2024 8:30 PM CDT [facility] FLUID RBC COUNT 12,000 /mm(3) 11/16/2024 8:30 PM CDT [facility] FLUID, TOTAL NUCLEATED CELLS 459 /mm(3) 11/16/2024 8:[address] [facility] Other Non-Phlebotomy Collection / Unknown 11/16/2024 5:45 AM CDT 11/16/2024 6:16 PM CDT Narrative [facility] - 11/16/2024 8:30 PM CDT The reference range has not been established for this body fluid. The test result must be integrated into the clinical context for interpretation us Godfrey Foley MD BODY FLUIDS & STOOLS ORDERABLES Final Result [facility] [address] [place] [address] * Culture, Body Fluid (ESTEFANY) (11/16/2024 5:45 AM CDT) CULTURE RESULTS NO GROWTH WITHIN 5 DAYS, FINAL RESULT 11/22/2024 4:00 PM CDT [facility] Culture KNEE REGION STRUCTURE / Unknown Non-Phlebotomy Collection / Unknown 11/16/2024 5:45 AM CDT 11/17/2024 3:58 PM CDT us Godfrey Foley MD MICROBIOLOGY - GENERAL ORDERABLE S Final Result [facility] [address] [place] [address], [place] * CULTURE, AEROBIC (11/16/2024 5:45 AM CDT) Only the most recent of4 resultswithin the time period is included. CULTURE RESULTS No growth final 11/20/2024 11:06 PM CDT [facility] Culture KNEE REGION STRUCTURE / Unknown Non-Phlebotomy Collection / Unknown 11/16/2024 5:45 AM CDT 11/16/2024 6:16 PM CDT us Godfrey Foley MD MICROBIOLOGY - GENERAL ORDERABLE S Final Result [facility] [address] [place] [address], [place] * (ABNORMAL) Lipid Panel (11/16/2024 4:56 AM CDT) CHOLESTEROL 93 <200 mg/dL 11/16/2024 6:10 AM CDT [facility] TRIGLYCERIDES 73 <150 mg/dL 11/16/2024 6:10 AM CDT [facility] HDL CHOLESTEROL 19(L) >40 mg/dL 6:10 AM CDT [facility] LDL 59 <130 mg/dL 11/16/2024 6:10 AM CDT [facility] VLDL 15 10 - 50 mg/dL 11/16/2024 6:10 AM CDT [facility] CHOL/HDL RATIO 4.9(H) 0.0 - 4.4 11/16/2024 6:10 AM CDT [facility] NON-HDL CHOLESTEROL 74 <130 mg/dL 11/16/2024 6:10 AM CDT [facility] Blood BLOOD SPECIMEN / Unknown Venipuncture / Unknown 11/16/2024 4:56 AM CDT 11/16/2024 5:36 AM CDT us Chiara Glass MD CHEMISTRY ORDERABLES Final Re sult [facility] [address] [place] [address] * Lactic Acid (Lactate) (11/16/2024 4:56 AM CDT) Only the most recent of3 resultswithin the time period is included. LACTIC ACID 1.3 0.7 - 2.0 mmol/L 11/16/2024 5:[address] [facility] Comment: Specimen is hemolyzed. In vitro hemolysis could affect results. Clinical correlation advised. Blood Venipuncture / Unknown 11/16/2024 4:56 AM CDT 11/16/2024 5:36 AM CDT us Chiara Glass MD CHEMISTRY ORDERABLES Final Re sult Performing Organization Address City/[facility]/ZIP Co de Phone Number [facility] [address] [place] [address] * Culture, MRSA Screen (11/15/2024 10:25 PM CDT) CULTURE RESULTS NO METHICILLIN RESISTANT STAPH AUREUS ISOLATED 11/18/2024 5:08 PM CDT [facility] Culture NASOPHARYNGEAL SWAB / Unknown Non-Phlebotomy Collection / Unknown 11/15/2024 10:25 PM CDT 11/15/2024 10:37 PM CDT Selma Panda APRN, CNP MICROBIOLOGY - GENERAL OR DERABLES Final Result Performing Organization Address City/[facility]/ZIP Co de Phone Number [facility] [address] [place] [address], [place] * (ABNORMAL) Protime (PT or Prothrombin Time) - baseline (11/15/2024 9:22 PM CDT) PROTIME-PATIENT 17.1(H) 11.6 - 14.8 sec 11/15/2024 9:[address] [facility] INR 1.4(H) 0.9 - 1.2 11/15/2024 9:[address] [facility] Comment: Therapeutic Ranges INR = 2.0-3.0: Venous thromb, atrial fib, pul embolism, tissue heart valve, ami. INR = 2.5-3.5: Mechanical heart valve Critical value for INR is >/= 4.5 Blood Venipuncture / Unknown 11/15/2024 9:22 PM CDT 11/15/2024 9:37 PM CDT us Selma Panda LABORER [employer], MACHINE CLOTH EXAMINER HEMATOLOGY ORDERABLES Fin al Result [facility] [address] [place] [address] * (ABNORMAL) Complete Blood Count (CBC) WITHOUT Diff - baseline (11/15/2024 9:22 PM CDT) WBC 9.78 4.00 - 12.00 10(3)/mcL 11/15/2024 9:[address] [facility] RBC 3.65(L) 3.80 - 5.30 10(6)/mcL 11/15/2024 9:[address] [facility] HEMOGLOBIN (HGB) 10.2(L) 12.0 - 15.8 g/dL 11/15/2024 9:[address] [facility] HEMATOCRIT (HCT) 31.3(L) 36.0 - 47.0 % 11/15/2024 9:[address] [facility] MCV 85.8 82.0 - 96.0 fL 11/15/2024 9:46 PM CDT [facility] MCH 27.9 26.0 - 34.0 pg 11/15/2024 9:[address] [facility] MCHC 32.6 31.0 - 36.0 g/dL 11/15/2024 9:[address] [facility] PLATELET COUNT 99(L) 140 - 440 10(3)/mcL 11/15/2024 9:[address] [facility] RDW 16.5(H) 11.8 - 15.5 % 11/15/2024 9:[address] [facility] MPV 8.9(L) 9.7 - 12.4 fL 11/15/2024 9:46 PM CDT [facility] Blood Venipuncture / Unknown 11/15/2024 9:22 PM CDT 11/15/2024 9:37 PM CDT us Selma Panda LABORER [employer]OL[employer]RSE, MACHINE CLOTH EXAMINER HEMATOLOGY ORDERABLES Fin al Result [facility] [address] [place] [address] * XR REFERENCE IMAGES FOR IMAGE IMPORT (11/15/2024 8:53 PM CDT) MD JESSICA Graham DIAGNOSTIC ORDERABLES Fin al Result * CT REFERENCE IMAGES FOR IMAGE IMPORT (11/15/2024 8:52 PM CDT) MD JESSICA Graham CT ORDERABLES Final Resul t * CULTURE, ANAEROBIC (11/15/2024 8:28 PM CDT) Only the most recent of2 resultswithin the time period is included. CULTURE RESULTS METHICILLIN RESISTANT STAPHYLOCOCCUS AUREUS 11/22/2024 4:25 PM CDT [facility] Comment:PREVIOUSLY FLAGGED S MAKAYLA ORGANISM Culture (Deep Wound) Non-Phlebotomy Collection / Unknown 11/15/2024 8:28 PM CDT 11/15/2024 8:37 PM CDT Narrative Organism Antibiotic Method Susceptibility Methicillin Resistant Staph aureus Oxacillin [facility] IIB >=4 mcg/ml: Resistant Methicillin Resistant Staph aureus Gentamicin [facility] IIB <=0.5 mcg/ml: Susceptible Methicillin Resistant Staph aureus Linezolid [facility] IIB 2 mcg/ml: Susceptible Methicillin Resistant Staph aureus Vancomycin [facility] IIB <=0.5 mcg/ml: Susceptible Methicillin Resistant Staph aureus Tetracycline [facility] IIB <=1 mcg/ml: Susceptible Methicillin Resistant Staph aureus Trimeth/Sulfamethoxazol e [facility] VITEK IIB <=10 mcg/ml: Susceptible us Selma Panda APRN, CNP MICROBIOLOGY - GENERAL OR DERABLES Final Result Performing Organization Address City/[facility]/ZIP Co de Phone Number [facility] [address] [place] [address], [place] * EKG 12 LEAD (11/15/2024 7:32 PM CDT) Ventricular Rate 110 BPM EXTERNAL EKG Atrial Rate 110 BPM EXTERNAL EKG P-R Interval 176 ms EXTERNAL EKG QRS Duration 106 ms EXTERNAL EKG Q-T Duration 346 ms EXTERNAL EKG QTC CALCULATION 468 ms EXTERNAL EKG P Maynard 50 degrees EXTERNAL EKG R Maynard 81 degrees EXTERNAL EKG T Maynard 77 degrees EXTERNAL EKG 11/15/2024 7:32 PM CDT Impressions EXTERNAL EKG - 11/18/2024 4:49 PM CDT Sinus tachycardia Otherwise normal ECG No previous ECGs available Confirmed by SAM JORDAN ([id number]) on 11/18/2024 4:49:28 PM Narrative Procedure Note Sam Jordan MD - 11/18/2024 IMPRESSION: Sinus tachycardia Otherwise normal ECG No previous ECGs available Confirmed by SAM JORDAN ([id number]) on 11/18/2024 4:49:28 PM Chiara Glass MD IMG ECG ORDERABLES Final Resu lt EXTERNAL EKG * (ABNORMAL) URINALYSIS REFLEX IF INDICATED BY ABNORMAL RESULTS (11/15/2024 7:24 PM CDT) SPECIFIC GRAVITY 1.025 1.003 - 1.030 11/15/2024 7:50 PM CDT [facility] URINE PH 6.0 5.0 - 9.0 11/15/2024 7:50 PM CDT [facility] WBC ESTERASE 25 /ul(A) Negative 11/15/2024 7:50 PM CDT [facility] NITRITE Negative Negative 11/15/2024 7:50 PM CDT [facility] PROTEIN, RANDOM URINE 30 mg/dL(A) Negative 11/15/2024 7:50 PM CDT [facility] URINE GLUCOSE, QUAL Negative Negative 11/15/2024 7:50 PM CDT [facility] URINE KETONES 15 mg/dL(A) Negative 11/15/2024 7:50 PM CDT [facility] UROBILINOGEN Normal Normal mg/dL 11/15/2024 7:[address] [facility] URINE BLOOD 250 /uL(A) Negative carroll/ul 11/15/2024 7:50 PM CDT [facility] URINALYSIS COLOR Dark Yellow 025 7:50 PM CDT [facility] URINALYSIS CLARITY Very Cloudy 11/15/2024 7:[address] [facility] WBC (Urine) 21-50(A) Negative, 0-5 /hpf 11/15/2024 7:[address] [facility] URINE RBC'S 11-20(A) Negative, 0-2 /hpf 11/15/2024 7:[address] [facility] EPITHELIAL CELLS Occasional /lpf 11/16/19 25 7:[address] [facility] BACTERIA, URINE Many(A) Negative /hpf 11/15/2024 7:[address] [facility] Urine (Indwelling Catheter) Non-Phlebotomy Collection / Unknown 11/15/2024 7:24 PM CDT 11/15/2024 7:33 PM CDT us Chiara Glass MD URINE ORDERABLES Final Result [facility] [address] [place] [address] * Culture, Urine (11/15/2024 7:24 PM CDT) CULTURE RESULTS No growth final 11/17/2024 12:31 PM CDT [facility] Culture (Indwelling Catheter) Non-Phlebotomy Collection / Unknown 11/15/2024 7:24 PM CDT 11/15/2024 7:33 PM CDT us Chiara Glass MD MICROBIOLOGY - GENERAL ORDERA BLES Final Result [facility] [address] [place] [address], * (ABNORMAL) Urine Drug Screen (11/15/2024 7:24 PM CDT) UR AMPHETAMINE DETECTED(A) NON DETECTED 11/15/2024 7:48 PM CDT [facility] Comment: FOR MEDICAL USE ONLY. CUTOFF CONCENTRATION FOR DETECTED RESULT: AMPHETAMINE: 500 NG/ML UR BENZODIAZEPINES NON DETECTED NON DETECTED 11/15/2024 7:[address] [facility] Comment: FOR MEDICAL USE ONLY. CUTOFF CONCENTRATION FOR DETECTED RESULT: BENZODIAZAPINE: 200 NG/ML UR COCAINE METABOLITE DETECTED(A) NON DETECTED 11/15/2024 7:48 PM CDT [facility] Comment: FOR MEDICAL USE ONLY. CUTOFF CONCENTRATION FOR DETECTED RESULT: COCAINE: 150 NG/ML UR OPIATES NON DETECTED NON DETECTED 11/15/2024 7:[address] [facility] Comment: FOR MEDICAL USE ONLY. CUTOFF CONCENTRATION FOR DETECTED RESULT: OPIATES: 300 NG/ML UR PHENCYCLIDINE NON DETECTED NON DETECTED 11/15/2024 7:[address] [facility] Comment: FOR MEDICAL USE ONLY. CUTOFF CONCENTRATION FOR DETECTED RESULT: PCP: 25 NG/ML UR CANNABINOID NON DETECTED NON DETECTED 11/15/2024 7:48 PM CDT [facility] Comment: FOR MEDICAL USE ONLY. CUTOFF CONCENTRATION FOR DETECTED RESULT: THC (MARIJUANA): 50 NG/ML UR BARBITURATE NON DETECTED NON DETECTED 11/15/2024 7:[address] [facility] Comment: FOR MEDICAL USE ONLY. CUTOFF CONCENTRATION FOR DETECTED RESULT: BARBITUATES: 200 NG/ML UR FENTANYL NON DETECTED NON DETECTED 11/15/2024 7:[address] [facility] Comment: FOR MEDICAL USE ONLY. CUTOFF CONCENTRATION FOR DETECTED RESULT: FENTANYL: 1.0 NG/ML Urine Non-Phlebotomy Collection / Unknown 11/15/2024 7:24 PM CDT 11/15/2024 7:33 PM CDT Chiara Glass MD URINE ORDERABLES Final Result [facility] [address] [place] [address] * (ABNORMAL) TROPONIN I, HIGH SENSITIVITY (HSTRP) (11/15/2024 7:23 PM CDT) Only the most recent of2 resultswithin the time period is included. Pathologist [facility] TROPONIN I, HIGH SENSITIVITY- [place] 16(H) <=14 ng/L 11/15/2024 7:[address] [facility] Comment: High-sensitivity troponin I results are reported in ng/L making the result appear to be 1,000 times higher than the contemporary troponin I value which is reported in ng/ml. Results from [facility]. Blood Venipuncture / Unknown 11/15/2024 7:23 PM CDT 11/15/2024 7:29 PM CDT Chiara Glass MD CHEMISTRY ORDERABLES Final Re sult [facility] [address] [place] [address] * CT ABDOMEN PELVIS W/ CONTRAST (11/15/2024 7:05 PM CDT) Anatomical Region Laterality Modality Abdomen N/A Computed Tomogra phy 11/15/2024 8:45 PM CDT Impressions 11/15/2024 8:47 PM CDT IMPRESSION: The liver is small and demonstrates surface nodularity and prominence of the caudate lobe characteristic of cirrhosis. There is an ill-defined hypodense lobulated mass within the dome of the right hepatic lobe measuring approximately 5 cm in diameter. A 2nd masses seen more medially in the dome of the right hepatic lobe measuring 3.7 cm. 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 Recommend nonemergent correlation with liver MRI with contrast. The findings were called to the patient's nurse Brent Yoder at 8:44 p.m. on 11/15/2024. She agreed to immediately inform the ordering clinician. Portal venous hypertension with gastric and splenic varices and a splenorenal shunt. Splenomegaly. Cholelithiasis. Diverticulosis. No evidence of diverticulitis. Narrative 11/15/2024 8:47 PM CDT EXAM DESCRIPTION: CT ABDOMEN PELVIS W/ CONTRAST REASON FOR STUDY: pt has bilateral non-healing wounds on feet. pt report cellulitis on LT lower leg that painful. hx of RT toes amputation. pt suspected for PAD. Acute generalized abdominal pain today. TECHNIQUE: CT scan of the abdomen and pelvis performed with intravenous and without oral contrast using helical scanning technique with dynamic intravenous contrast injection. Reconstructed coronal and sagittal MPR images reviewed. All images stored on PACS. Automated exposure control was used as a dose optimization technique for this examination. CONTRAST TYPE/DOSE: 124mL of IOPAMIDOL 76 % IV SOLN injected via Intravenous COMPARISON: None FINDINGS: LOWER CHEST: No significant pulmonary abnormalities. No effusion. Atelectasis in the posterior aspect of the lower lobes bilaterally. LIVER: The liver is small and demonstrates surface nodularity and prominence of the caudate lobe characteristic of cirrhosis. There is an ill-defined hypodense lobulated mass within the dome of the right hepatic lobe measuring approximately 5 cm in diameter. A 2nd masses seen more medially in the dome of the right hepatic lobe measuring 3.7 cm. 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 Recommend nonemergent correlation with liver MRI with contrast. There is portal venous hypertension with gastric and splenic varices and a splenorenal shunt. GALLBLADDER: Stones. No wall thickening or pericholecystic fluid. BILE DUCTS: No intrahepatic or extrahepatic ductal dilatation. SPLEEN: Enlarged at 16.6 cm. Calcified granulomas. PANCREAS: No identified cystic or solid masses. No significant calcifications. No adjacent inflammation or peripancreatic fluid collections. Pancreatic duct not dilated. ADRENALS: Normal. KIDNEYS/URINARY TRACT: No identified significant cystic or solid masses. No visualized stones. No hydronephrosis or hydroureter. Symmetric enhancement. The bladder is decompressed by a Castanon catheter. GI: No dilated bowel loops. No obvious wall thickening. Normal appendix. Scattered diverticular disease without diverticulitis. PERITONEUM: Minimal ascites. No evidence of free air. RETROPERITONEUM: No mass or adenopathy. REPRODUCTIVE: No significant abnormality. VASCULATURE: Atherosclerotic disease in the aorta and iliacs MUSCULOSKELETAL: Multilevel degenerative changes are present without fracture. No concerning lesions are present. Right hip arthroplasty with resulting artifact. Grade 1 anterolisthesis L5 on S1 due to bilateral pars defects at L5. OTHER: No other abnormality. THIS IS AN ELECTRONICALLY VERIFIED FINAL REPORT 11/15/2024 8:45 PM - Electronically signed by Frankie Mccoy M.D. KT: [id number] Report ID: [id number] Reading Location: [id number] Procedure Note Frankie Mccoy MD - 11/15/2024 EXAM DESCRIPTION: CT ABDOMEN PELVIS W/ CONTRAST REASON FOR STUDY: pt has bilateral non-healing wounds on feet. pt report cellulitis on LT lower leg that painful. hx of RT toes amputation. pt suspected for PAD. Acute generalized abdominal pain today. TECHNIQUE: CT scan of the abdomen and pelvis performed with intravenous and without oral contrast using helical scanning technique with dynamic intravenous contrast injection. Reconstructed coronal and sagittal MPR images reviewed. All images stored on PACS. Automated exposure control was used as a dose optimization technique for this examination. CONTRAST TYPE/DOSE: 124mL of IOPAMIDOL 76 % IV SOLN injected via Intravenous COMPARISON: None FINDINGS: LOWER CHEST: No significant pulmonary abnormalities. No effusion. Atelectasis in the posterior aspect of the lower lobes bilaterally. LIVER: The liver is small and demonstrates surface nodularity and prominence of the caudate lobe characteristic of cirrhosis. There is an ill-defined hypodense lobulated mass within the dome of the right hepatic lobe measuring approximately 5 cm in diameter. A 2nd masses seen more medially in the dome of the right hepatic lobe measuring 3.7 cm. 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 Recommend nonemergent correlation with liver MRI with contrast. There is portal venous hypertension with gastric and splenic varices and a splenorenal shunt. GALLBLADDER: Stones. No wall thickening or pericholecystic fluid. BILE DUCTS: No intrahepatic or extrahepatic ductal dilatation. SPLEEN: Enlarged at 16.6 cm. Calcified granulomas. PANCREAS: No identified cystic or solid masses. No significant calcifications. No adjacent inflammation or peripancreatic fluid collections. Pancreatic duct not dilated. ADRENALS: Normal. KIDNEYS/URINARY TRACT: No identified significant cystic or solid masses. No visualized stones. No hydronephrosis or hydroureter. Symmetric enhancement. The bladder is decompressed by a Castanon catheter. GI: No dilated bowel loops. No obvious wall thickening. Normal appendix. Scattered diverticular disease without diverticulitis. PERITONEUM: Minimal ascites. No evidence of free air. RETROPERITONEUM: No mass or adenopathy. REPRODUCTIVE: No significant abnormality. VASCULATURE: Atherosclerotic disease in the aorta and iliacs MUSCULOSKELETAL: Multilevel degenerative changes are present without fracture. No concerning lesions are present. Right hip arthroplasty with resulting artifact. Grade 1 anterolisthesis L5 on S1 due to bilateral pars defects at L5. OTHER: No other abnormality. THIS IS AN ELECTRONICALLY VERIFIED FINAL REPORT 11/15/2024 8:45 PM - Electronically signed by Frankie Mccoy M.D. KT: KT Report ID: [id number] Reading Location: [id number] IMPRESSION: The liver is small and demonstrates surface nodularity and prominence of the caudate lobe characteristic of cirrhosis. There is an ill-defined hypodense lobulated mass within the dome of the right hepatic lobe measuring approximately 5 cm in diameter. A 2nd masses seen more medially in the dome of the right hepatic lobe measuring 3.7 cm. 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 Recommend nonemergent correlation with liver MRI with contrast. The findings were called to the patient's nurse Brent Yoder at 8:44 p.m. on 11/15/2024. She agreed to immediately inform the ordering clinician. Portal venous hypertension with gastric and splenic varices and a splenorenal shunt. Splenomegaly. Cholelithiasis. Diverticulosis. No evidence of diverticulitis. us Chiara Glass MD IMG CT ORDERABLES Final Resul t * Gold Top Tube (11/15/2024 5:15 PM CDT) Blood No Phlebotomy Charged / Unknown 11/15/2024 5:15 PM CDT 11/15/2024 5:15 PM CDT Chiara Glass MD CHEMISTRY ORDERABLES Final Re sult Performing Organization Address City/[facility]/ZIP Co de Phone Number [facility] [place] [address] * Blue Top Tube (11/15/2024 5:15 PM CDT) Blood No Phlebotomy Charged / Unknown 11/15/2024 5:15 PM CDT 11/15/2024 5:15 PM CDT Chiara Glass MD HEMATOLOGY ORDERABLES Final R esult Performing Organization Address [facility] Co de Phone Number [facility] [place] [address] * (ABNORMAL) Hemoglobin A1C w/ Estimated Glucose (11/15/2024 5:01 PM CDT) HGB-A1C 6.2(H) 4.0 - 6.0 % 11/15/2024 5:[address] [facility] Est Average Glucose 131.2 mg/dL 11/15/2024 5:[address] [facility] Blood Venipuncture / Unknown 11/15/2024 5:01 PM CDT 11/15/2024 5:14 PM CD[address] [facility] - 11/15/2024 5:37 PM CDT HEMOGLOBIN A1C: DIABETIC PATIENTS: WELL-CONTROLLED: 6.2 - 7.0 INTERMEDIATE WELL-CONTROLLED: 7.0 - 9.0 POORLY-CONTROLLED: >9.0 Specimens containing greater than 5% of Hemoglobin F may result in lower than expected % HbA1C results. Chiara Glass MD CHEMISTRY ORDERABLES Final Re sult Performing Organization Address City/[facility]/ZIP Co de Phone Number [facility] [place] [address] * (ABNORMAL) Thyroid Stimulating Hormone (TSH) (11/15/2024 5:01 PM CDT) TSH 0.104(L) 0.300 - 5.000 mIU/L 11/15/2024 6:04 PM CDT [facility] Blood Venipuncture / Unknown 11/15/2024 5:01 PM CDT 11/15/2024 5:13 PM CDT Chiara Glass MD CHEMISTRY ORDERABLES Final Re sult Performing Organization Address [facility] Co de Phone Number [facility] [place] [address] * Culture, Blood (11/15/2024 5:01 PM CDT) Only the most recent of2 resultswithin the time period is included. CULTURE RESULTS NO GROWTH WITHIN 5 DAYS, FINAL RESULT 11/20/2024 6:01 PM CDT [facility] Culture (Peripheral Vein) Venipuncture / Unknown 11/15/2024 5:01 PM CDT 11/15/2024 5:13 PM CDT Chiara Glass MD MICROBIOLOGY - GENERAL ORDERA BLES Final Result Performing Organization Address City/[facility]/ZIP Co de Phone Number [facility] [address] [place] [address], [place] * Creatine Kinase (CK) Total (11/15/2024 5:01 PM CDT) CK (CPK) 90 29 - 168 U/L 11/15/2024 5:[address] [facility] Blood Venipuncture / Unknown 11/15/2024 5:01 PM CDT 11/15/2024 5:13 PM CDT Chiara Glass MD HEMATOLOGY ORDERABLES Final R esult [facility] [place] [address] * (ABNORMAL) C-Reactive Protein (CRP) Quant (11/15/2024 5:01 PM CDT) C-REACTIVE PROTEIN 15.29(H) <0.50 mg/dL 11/15/2024 5:[address] [facility] Blood Venipuncture / Unknown 11/15/2024 5:01 PM CDT 11/15/2024 5:13 PM CDT Chiara Glass MD CHEMISTRY ORDERABLES Final Re sult Performing Organization Address City/[facility]/ZIP Co de Phone Number [facility] [place] [address] * AMMONIA (11/15/2024 5:01 PM CDT) AMMONIA 43 18 - 72 umol/L 11/15/2024 5:[address] [facility] Blood Venipuncture / Unknown 11/15/2024 5:01 PM CDT 11/15/2024 5:14 PM CDT Chiara Glass MD CHEMISTRY ORDERABLES Final Re sult [facility] [place] [address] * EKG SCAN (11/15/2024 12:00 AM CDT) Only the most recent of2 resultswithin the time period is included. 11/15/2024 us Provider Scan IMG ECG ORDERABLES Final Result RESULTING AGENCY * XR - CHEST (11/15/2024 12:00 AM CDT) 11/15/2024 us Provider Scan IMG DIAGNOSTIC ORDERABLES Final Result Performing Organization Address City/[facility]/ZIP Co de Phone Number SCAN * CT - HEAD/NECK (11/15/2024 12:00 AM CDT) 11/15/2024 us Provider Scan IMG CT ORDERABLES Final Result Performing Organization Address City/[facility]/ZIP Co de Phone Number SCAN from Last 3 Months Additional Health Concerns Infection Onset Date Last Indicated MRSA 11/15/2024 11/15/2024 Insurance MEDICAID [place] MEDICARE C [employer] Advance Directives Documents on File Type Date Recorded 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 PRE-ARREST: Use entire range of life support measures to stabilize the patient. * Full Code Date Activated Date Inactivated Comments 08/16/2024 8:15 PM 11/15/2024 6:30 PM CPR-Full Treat ment: FULL ARREST: Attempt Resuscitation/CPR wit intubation and mechanical ventilation. PRE-ARREST: Use entire range of life support measures to stabilize the patient. Healthcare Agents on File Name Relationship Healthcare Agent Relationship Communication Malinda Bran Daughter/Step-Daughter Surrogate Celia on Maker [phone] (Wilson) Care Teams Systems Coordinator Relationship Specialty Start Date End Date Nayana Garber PAC [address] [place] [id number] PCP - General Advanced Practice Nurse 08/17/24
--- OUTSIDE RECORDS SUMMARY | 2025-01-27 13:11 | XMS_ITS | Encounter Summary ---
Author Organization [facility] Address [address] [place] [address] Phone Care Team Providers Care Fall Internship Name Role Phone Nayana Garber PAC Primary Care Provider + Encounter Details Date Type Department Care Team (Late st Contact Info) Description 11/26/2024 [facility] [address] [place] [phone] [place] [address] [place] [address] Local infection of the skin and subcutaneous tissue, unspecified Social History Tobacco Use Types Packs/Day Years Used Date Smoking Tobacco: Unknown [facility] Utilities Answer Date Recorded In the past 12 months has [employer] electric, gas, oil, or water company threatened [...] declined 11/15/2024 How often do you attend worship or rastafari serv ices? Patient declined 11/15/2024 Do you [...] medical care, and heating? Patient declined 11/15/2024 [facility] [...] any time in the past 12 m [facility], were you homeless or living in a custodial (including now)? Patient declined 11/15/2024 Comments Unknown Sex and Gender Information Value Date Recorded Sex Assigned at Not on file Legal Sex Female 11:42 AM CDT Gender Identity Not on file Sexual Orientation Not on file documented as of this encounter Plan of Treatment Upcoming Encounters Date Type Department Care Team (Late st Contact Info) Description 01/28/2025 9:40 AM CDT Office Visit [facility] [address] [place] [phone] Serjio Santoro MD [address] [place] [address] Discharge Disposition: Discharged to home or Selfcare documented as of this encounter Procedures Procedure Name Priority Date/Time Associated Diagnosis Comments CBC WITH AUTO DIFFERENTIAL Routine 11/26/2024 11:35 [...] Results * (ABNORMAL) CBC WITH AUTO DIFFERENTIAL (11/26/2024 11:35 AM CDT) WBC 3.63(L) 4.00 - 12.00 10(3)/mcL 11/26/2024 12:54 PM CDT [facility] RBC 3.59(L) 3.80 - 5.30 10(6)/mcL 11/26/2024 12:54 PM CDT [facility] HEMOGLOBIN (HGB) 10.0(L) 12.0 - 15.8 g/dL 11/26/2024 12:54 PM CDT [facility] HEMATOCRIT (HCT) 31.7(L) 36.0 - 47.0 % 11/26/2024 12:54 PM CDT [facility] MCV 88.3 82.0 - 96.0 fL 11/26/2024 12:54 PM CDT [facility] MCH 27.9 26.0 - 34.0 pg 11/26/2024 12:54 PM CDT [facility] MCHC 31.5 31.0 - 36.0 g/dL 11/26/2024 12:54 PM CDT [facility] PLATELET COUNT 167 140 - 440 10(3)/mcL 11/26/2024 12:54 PM CDT [facility] RDW 16.5(H) 11.8 - 15.5 % 11/26/2024 12:54 PM CDT [facility] MPV 8.9(L) 9.7 - 12.4 fL 11/26/2024 12:54 PM CDT [facility] NEUTROPHILS 61.4 47.0 - 73.0 % 11/26/2024 12:54 PM CDT [facility] LYMPHOCYTES 27.3 18.0 - 42.0 % 11/26/2024 12:54 PM CDT [facility] MONOCYTES 9.6 4.0 - 12.0 % 11/26/2024 12:54 PM CDT [facility] EOSINOPHILS 1.1 0.0 - 5.0 % 11/26/2024 12:54 PM CDT [facility] BASOPHILS 0.6 0.0 - 1.0 % 11/26/2024 12:54 PM CDT [facility] ABSOLUTE NEUTROPHILS 2.23 1.60 - 7.70 10(3)/mcL 11/26/2024 12:54 PM CDT [facility] ABSOLUTE LYMPHOCYTES 0.99(L) 1.30 - 3.20 10(3)/mcL 11/26/2024 12:54 PM CDT [facility] ABSOLUTE MONOCYTES 0.35 0.20 - 1.00 10(3)/mcL 11/26/2024 12:54 PM CDT [facility] ABSOLUTE EOSINOPHIL 0.04 0.00 - 0.40 10(3)/mcL 11/26/2024 12:54 PM CDT [facility] ABSOLUTE BASOPHILS 0.02 0.00 - 0.10 10(3)/mcL 11/26/2024 12:54 PM CDT [facility] NRBC PER 100 WBC 0 11/27/19 12:54 PM CDT [facility] Blood No Phlebotomy Charged / Unknown 11/26/2024 11:35 AM CDT 11/26/2024 12:48 PM CDT us Jesse Wheeler MD HEMATOLOGY ORDERABLES Fi nal Result [facility] [address] [place] [address] * (ABNORMAL) CMP (COMPREHENSIVE METABOLIC PANEL) (11/26/2024 11:35 AM CDT) SODIUM 138 136 - 145 mmol/L 11/26/2024 1:15 PM CDT [facility] POTASSIUM 4.1 3.5 - 5.1 mmol/L 11/26/2024 1:15 PM CDT [facility] CHLORIDE 107 98 - 107 mmol/L 11/26/2024 1:15 PM CDT [facility] CO2, VENOUS 27 22 - 30 mmol/L 11/26/2024 1:15 PM CDT [facility] ANION GAP 8.1 <18.0 mmol/L 11/26/2024 1:15 PM CDT [facility] GLUCOSE 119(H) 70 - 99 mg/dL 11/26/2024 1:15 PM CDT [facility] BUN 12 10 - 20 mg/dL 11/26/2024 1:15 PM CDT [facility] CREATININE, BLOOD 0.64 0.60 - 1.00 mg/dL 11/26/2024 1:15 PM T [facility] BUN/CREATININE RATIO 19 12 - 20 ratio 11/26/2024 1:15 PM [facility] TOTAL PROTEIN 8.7(H) 6.0 - 8.0 g/dL 11/26/2024 1:15 PM CDT [facility] ALBUMIN 2.5(L) 3.5 - 5.0 g/dL 11/26/2024 1:15 PM T [facility] A/G RATIO 0.4(L) 1.0 - 2.2 11/26/2024 1:15 PM T [facility] CALCIUM 8.2(L) 8.7 - 10.5 mg/dL 11/26/2024 1:15 PM T [facility] T BILI 0.5 0.2 - 1.2 mg/dL 11/26/2024 1:15 PM T [facility] SGOT (AST) 42 <43 U/L 11/26/2024 1:15 PM [facility] SGPT (ALT) 13 <56 U/L 11/26/2024 1:15 PM [facility] ALKALINE PHOSPHATASE 169(H) 40 - 150 U/L 11/26/2024 1:15 PM T [facility] GFR, ESTIMATED >60 >=60 11/26/2024 1:15 PM [facility] Comment: Creatinine Clearance is the preferred criteria for selecting drug dose adjustments in renally impaired patients. The GFR is provided as additional pertinent clinical information. GFR is reported in mL/min/1.73 sq m. Calculation based on the Chronic Kidney Disease Epidemiology Collaboration (CKD- EPI) equation refit without adjustment for race. GFR, EST. >60 >=60 025 1:15 PM T [facility] GFR, EST. NONAFRICAN >60 >=60 11/26/2024 1:15 PM [facility] Blood No Phlebotomy Charged / Unknown 11/26/2024 11:35 AM CDT 11/26/2024 12:48 PM CDT Jesse Wheeler MD CHEMISTRY ORDERABLES Fin al Result [facility] [place] [address] documented in this encounter Visit Diagnoses Diagnosis Local infection of the skin and subcutaneous tissue, unspecified documented in this encounter Additional Health Concerns Infection Onset Date Last Indicated Resolved Time MRSA 11/15/2024 11/15/2024 documented as of this encounter Care Teams Fall Internship Relationship Specialty Start Date End Date Nayana Garber PAC [address] [place] [id number] PCP - General Advanced Practice Nurse 08/17/24 documented as of this encounter
--- OUTSIDE RECORDS SUMMARY | 2025-01-27 13:11 | XMS_ITS | Encounter Summary ---
Author Organization [facility] Address [address] [place] [address] Phone Care Team Providers Care Embossing Clerk Name Role Phone Nayana Garber PAC Primary Care Provider + Encounter Details Date Type Department Care Team (Late st Contact Info) Description 12/01/2024 [facility] [address] [place] [address] [place] [address] [place] [address] Local infection of the skin and subcutaneous tissue, unspecified Social History Tobacco Use Types Packs/Day Years Used Date Smoking Tobacco: Unknown [facility] Utilities Answer Date Recorded In the past 12 months has [employer] electric, gas, oil, or water company threatened [...] declined 11/15/2024 How often do you attend gnosticism or episcopalian serv ices? Patient declined 11/15/2024 Do you belong to any clubs o r organizations such as gnosticism groups, unions, fraternal or athletic groups, or [...] care, and heating? Patient declined 11/15/2024 [facility] - [...] were you homeless or living in a detention (including now)? Patient declined 11/15/2024 Comments Unknown Sex and Gender Information Value Date Recorded Sex Assigned at Not on file Legal Sex Female 11:42 AM CDT Gender Identity Not on file Sexual Orientation Not on file documented as of this encounter Plan of Treatment Upcoming Encounters Date Type Department Care Team (Late st Contact Info) Description 01/28/2025 9:40 AM CDT Office Visit [facility] [address] [place] [phone] Serjio Santoro MD [address] [place] [address] Discharge Disposition: Discharged to home or Selfcare documented as of this encounter Procedures Procedure Name Priority Date/Time Associated Diagnosis Comments CBC WITH AUTO DIFFERENTIAL Routine 12/01/2024 11:40 [...] Results * (ABNORMAL) CBC WITH AUTO DIFFERENTIAL (12/01/2024 11:40 AM CDT) WBC 4.24 4.00 - 12.00 10(3)/mcL 12/01/2024 12:54 PM CDT [facility] RBC 3.75(L) 3.80 - 5.30 10(6)/mcL 12/01/2024 12:54 PM CDT [facility] HEMOGLOBIN (HGB) 10.5(L) 12.0 - 15.8 g/dL 12/01/2024 12:54 PM CDT [facility] HEMATOCRIT (HCT) 33.3(L) 36.0 - 47.0 % 12/01/2024 12:54 PM CDT [facility] MCV 88.8 82.0 - 96.0 fL 12/01/2024 12:54 PM CDT [facility] MCH 28.0 26.0 - 34.0 pg 12/01/2024 12:54 PM CDT [facility] MCHC 31.5 31.0 - 36.0 g/dL 12/01/2024 12:54 PM CDT [facility] PLATELET COUNT 140 140 - 440 10(3)/mcL 12/01/2024 12:54 PM CDT [facility] RDW 16.6(H) 11.8 - 15.5 % 12/01/2024 12:54 PM CDT [facility] MPV 9.3(L) 9.7 - 12.4 fL 12/01/2024 12:54 PM CDT [facility] NEUTROPHILS 64.9 47.0 - 73.0 % 12/01/2024 12:54 PM CDT [facility] LYMPHOCYTES 20.5 18.0 - 42.0 % 12/01/2024 12:54 PM CDT [facility] MONOCYTES 11.8 4.0 - 12.0 % 12/01/2024 12:54 PM CDT [facility] EOSINOPHILS 2.1 0.0 - 5.0 % 12/01/2024 12:54 PM CDT [facility] BASOPHILS 0.7 0.0 - 1.0 % 12/01/2024 12:54 PM CDT [facility] ABSOLUTE NEUTROPHILS 2.75 1.60 - 7.70 10(3)/mcL 12/01/2024 12:54 PM CDT [facility] ABSOLUTE LYMPHOCYTES 0.87(L) 1.30 - 3.20 10(3)/mcL 12/01/2024 12:54 PM CDT [facility] ABSOLUTE MONOCYTES 0.50 0.20 - 1.00 10(3)/mcL 12/01/2024 12:54 PM CDT [facility] ABSOLUTE EOSINOPHIL 0.09 0.00 - 0.40 10(3)/mcL 12/01/2024 12:54 PM CDT [facility] ABSOLUTE BASOPHILS 0.03 0.00 - 0.10 10(3)/mcL 12/01/2024 12:54 PM CDT [facility] NRBC PER 100 WBC 0 12/02/19 12:54 PM CDT [facility] Blood No Phlebotomy Charged / Unknown 12/01/2024 11:40 AM CDT 12/01/2024 12:47 PM CDT us Jesse Wheeler MD HEMATOLOGY ORDERABLES Fi nal Result [facility] [address] [place] [address] * (ABNORMAL) CMP (COMPREHENSIVE METABOLIC PANEL) (12/01/2024 11:40 AM CDT) SODIUM 139 136 - 145 mmol/L 12/01/2024 1:16 PM CDT [facility] POTASSIUM 3.9 3.5 - 5.1 mmol/L 12/01/2024 1:16 PM CDT [facility] CHLORIDE 109(H) 98 - 107 mmol/L 12/01/2024 1:16 PM CDT [facility] CO2, VENOUS 25 22 - 30 mmol/L 12/01/2024 1:16 PM CDT [facility] ANION GAP 8.9 <18.0 mmol/L 12/01/2024 1:16 PM CDT [facility] GLUCOSE 143(H) 70 - 99 mg/dL 12/01/2024 1:16 PM CDT [facility] BUN 10 10 - 20 mg/dL 12/01/2024 1:16 PM CDT [facility] CREATININE, BLOOD 0.70 0.60 - 1.00 mg/dL 12/01/2024 1:16 PM [facility] BUN/CREATININE RATIO 14 12 - 20 ratio 12/01/2024 1:16 PM [facility] TOTAL PROTEIN 9.2(H) 6.0 - 8.0 g/dL 12/01/2024 1:16 PM T [facility] ALBUMIN 2.8(L) 3.5 - 5.0 g/dL 12/01/2024 1:16 PM [facility] A/G RATIO 0.4(L) 1.0 - 2.2 12/01/2024 1:16 PM [facility] CALCIUM 8.1(L) 8.7 - 10.5 mg/dL 12/01/2024 1:16 PM [facility] T BILI 0.6 0.2 - 1.2 mg/dL 12/01/2024 1:16 PM [facility] SGOT (AST) 48(H) <43 U/L 12/01/2024 1:16 PM [facility] SGPT (ALT) 12 <56 U/L 12/01/2024 1:16 PM [facility] ALKALINE PHOSPHATASE 180(H) 40 - 150 U/L 12/01/2024 1:16 PM [facility] GFR, ESTIMATED >60 >=60 12/01/2024 1:16 PM [facility] Comment: Creatinine Clearance is the preferred criteria for selecting drug dose adjustments in renally impaired patients. The GFR is provided as additional pertinent clinical information. GFR is reported in mL/min/1.73 sq m. Calculation based on the Chronic Kidney Disease Epidemiology Collaboration (CKD- EPI) equation refit without adjustment for race. GFR, EST. >60 >=60 025 1:16 PM [facility] GFR, EST. NONAFRICAN >60 >=60 12/01/2024 1:16 PM [facility] Blood No Phlebotomy Charged / Unknown 12/01/2024 11:40 AM CDT 12/01/2024 12:47 PM CDT Jesse Wheeler MD CHEMISTRY ORDERABLES Fin al Result [facility] [place] [address] documented in this encounter Visit Diagnoses Diagnosis Local infection of the skin and subcutaneous tissue, unspecified documented in this encounter Additional Health Concerns Infection Onset Date Last Indicated Resolved Time MRSA 11/15/2024 11/15/2024 documented as of this encounter Care Teams Embossing Clerk Relationship Specialty Start Date End Date Nayana Garber, ZULAY [address] [place] [id number] PCP - General Advanced Practice Nurse 08/17/24 documented as of this encounter
--- OUTSIDE RECORDS SUMMARY | 2025-01-27 13:12 | XMS_ITS | Clinical Summary ---
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
--- OUTSIDE RECORDS SUMMARY | 2025-01-27 13:12 | XMS_ITS | Referral Summary ---
Author Organization [facility] Address [address] [place] [address] Care Team Providers Care Training Engineer Name Role Phone No, Physician Primary Care Provider [phone] Encounters Date Type Department Care Team Description 11/13/2024 2:35 PM CDT - 11/13/2024 11:59 PM CDT Hospital Encounter [facility] [address] [place] [address] S/P cervical spinal fusion; Right hand weakness Discharge Disposition: Discharge to home or self care 11/13/2024 2:45 PM CDT Office Visit [facility] Neurosurgery [address] [facility] Advanced Medicine [address] [place] [address] [place] [id number] Carol Monae NP S/P cervical spinal fusion (Primary Dx) 11/05/2024 Telephone [facility] Scheduling [address] [place] [address] Carol Monae NP from Last 3 Months Allergies Active Allergy Reactions Criticality Noted Date Comments Naproxen Hives Medium 03/08/2024 Silver Rash Medium 01/31/2024 Vancomycin Itching,Other (See comments) Low 024 Skin peeling Medications semaglutide 0.25 mg or 0.5 mg (2 mg/3 mL) pen injector injectionIndica tions:type 2 diabetes mellitus Inject 0.25 mg under the skin every 7 days Active bacitracin 500 unit/gram ointment Apply 1 [...] & Plan (04/06/2024 8:30 AM CDT): - 8: awaiting PT/OT evaluation, monitoring [...] Lispro increased 16u TID per Endocrine - Hvac Project Manager consulted - Vice President Risk Management consulted for further education on food/snack choices [...] no regular soda Discharge Planning [facility] Diabetes Discharge Order Set - Lantus [...] Lispro increased 16u TID per Endocrine - Hvac Project Manager consulted - Vice President Risk Management consulted for further education on food/snack choices [...] MAP > 90 augmentation per nsgy - ULTRASOUND TECH/TLSO brace, [place] until custom ULTRASOUND TECH/TLSO complete - Normotensive MAP goals, - Strict [...] has been staffed with Dr. Tapia. Custom ULTRASOUND TECH/TLSO Follow Up Clinic in 4-6 weeks with [...] MAP > 90 augmentation per nsgy - ULTRASOUND TECH/TLSO brace, [place] until custom ULTRASOUND TECH/TLSO complete - Normotensive MAP goals, - Strict [...] has been staffed with Dr. Tapia. Custom ULTRASOUND TECH/TLSO Follow Up Clinic in 4-6 weeks with [...] MAP > 90 augmentation per nsgy - ULTRASOUND TECH/TLSO brace, [place] until custom ULTRASOUND TECH/TLSO complete - Normotensive MAP goals, - Strict [...] MAP > 90 augmentation per nsgy - ULTRASOUND TECH/TLSO brace, [place] until custom ULTRASOUND TECH/TLSO complete - Normotensive MAP goals, - Strict [...] Tobacco: Former Cigarettes Tobacco Cessation:Counseling Given: No [facility] Utilities Answer Date Recorded In the past [...] often do you attend chur ch or yarsani services? 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 Gender Identity Not on file Sexual [...] on file Medical Devices Implanted Type Area Ep Specialist Device Identifier Shelf Expiration Date Model / Serial / Lot Allosource Canpac Allograft Frozen Nonpurge Graft 10cc Bone Cancellous [id number] - [id number] Implanted:Qty: 1 on 03/13/2024 by Marcio Tapia MD at [facility] Bone N/A: Cervical- Thoracic Spine Allosource 02/04/2029 [id number] / / [id number] Allosource Canpac Allograft Frozen Nonpurge Graft 10cc Bone Cancellous [id number] - [id number] Implanted:Qty: 1 on 03/13/2024 by Marcio Tapia MD at [facility] Bone N/A: Cervical- Thoracic Spine Allosource 01/31/2029 [id number] / / [id number] Allosource Canpac Allograft Frozen Nonpurge Graft 10cc Bone Cancellous [id number] - [id number] Implanted:Qty: 1 on 03/13/2024 by Marcio Tapia MD at [facility] Bone N/A: Cervical- Thoracic Spine Allosource 01/18/2029 [id number] / / [id number] Nuvasive Inc Wayne Spinal Posterior Cervical Prebent Reline 4.7j413df Titanium [id number] - [id number] Implanted:Qty: 1 on 03/13/2024 by Marcio Tapia MD at [facility] N/A: Cervical- Thoracic Spine [employer]uv[employer] Inc [id number] / / Nuv[employer] Wayne Spine Reline C Ti Straight 4.2a779rs [id number] - [id number] Implanted:Qty: 1 on 03/13/2024 by Marcio Tapia MD at [facility] N/A: Cervical- Thoracic Spine Nuv[employer] Inc [id number] / / Medtronic Inc Kit Graft Bone Sponge Xlg Infuse 8cc Granules [id number] - [id number] Implanted:Qty: 1 on 03/13/2024 by Marcio Tapia MD at [facility] N/A: Cervical- Thoracic Spine Medtronic Inc 02/10/2025 [id number] / / [id number] [employer] Graft Bone Magnetos 10cc 1-2mm Granules In Moldable Putty 703-038-[id number] - [id number] Implanted:Qty: 1 on 03/13/2024 by Marcio Tapia MD at [facility] N/A: Cervical- Thoracic Spine [employer] [id number] 01/12/2028 [id number] / / [id number] Nuvasive Inc Screw Spine Reline C Lock Open Non-Sterile Latex Free [id number] - [id number] Implanted:Qty: 14 on 03/13/2024 by Marcio Tapia MD at [facility] N/A: Cervical- Thoracic Spine [employer] Inc [id number] / / Nuv[employer] Inc Screw Spine Reline C Ma 3.5x16mm Non-Sterile Latex Free [id number] - [id number] Implanted:Qty: 8 on 03/13/2024 by Marcio Tapia MD at [facility] N/A: Cervical- Thoracic Spine [employer]uv[employer] Inc [id number] / / Nuv[employer] Inc Reline C Screw 5.5x35mm Reduction Thor [id number] - [id number] Implanted:Qty: 4 on 03/13/2024 by Marcio Tapia MD at [facility] N/A: Cervical- Thoracic Spine [employer]uv[employer] Inc [id number] / / Nuv[employer] Inc Reline C Screw 3.5x28mm Reduction Fa [id number] - [id number] Implanted:Qty: 2 on 03/13/2024 by Marcio Tapia MD at [facility] N/A: Cervical- Thoracic Spine [employer] Inc [id number] / / Procedures Procedure Name Priority Date/Time [...] signed by: Gopal Calderon M.D. Carol Monae PROP CUTTER IMG XR PROCEDURES Final Result * eGFR [...] S Final Result AJIT SAUL (ROMIE) [address] [facility] Department [place] [address] * (ABNORMAL) Hemoglobin A1c (03/11/2024 8:59 PM CDT) Hgb A1C 8.9(H) 4.0 - 5.6 % Estimated Average Glucose 209 mg/dL [facility] Comment: The ADA recommends reporting an [...] BLOOD ORDERABLES Final Result Performing Organization Address [facility] Co de Phone Number [facility] Department [place] [address] * Hepatitis panel, acute Blood (03/09/2024 7:59 PM CDT) Pathologist [facility] Hep A IgM Nonreactive Nonreactive Hep B core IgM Nonreactive Nonreactive [facility] Hep C Ab Nonreactive Nonreactive [facility] Comment:Antibodies to HCV no t detected. Does NOT exclude the possibility of recent exposure to HCV. Current interpretive data was last revised on 22 HepBsAg Nonreactive Nonreactive [facility] Blood 03/09/2024 7:59 PM CDT 03/09/2024 8:07 PM CDT Chadd Toledo DO LAB MICROBIOLOGY - GE NERAL ORDERABLES Final Result Performing Organization Address City/[facility]/ZIP Co de Phone Number [facility] Department [place] [address] from Last 3 Months or Most Recently Relevant to Health Maintenance Insurance [place] [id number] Advance Directives For more information, please contact: [phone] * Full Code (Latest Code Status on File) Date Activated Date Inactivated Comments 04/16/2024 7:23 AM 04/18/2024 8:03 PM * Full Code Date Activated Date Inactivated Comments 03/09/2024 6:10 AM 04/08/2024 7:32 PM Care Teams Training Engineer Relationship Specialty Start Date End Date No, Physician PCP - General 04/10/24
== END 2025-01-27 12:43 | disposition home or self-care (01) ==
LOC: CHSIMG 12:45
PROVIDERS: PCP Physician Assistant; Visit Provider Physician Assistant
DX: Z12.31 Encounter for screening mammogram for malignant neoplasm of breast (principal)
CPT/HCPCS: 77063; 77067

== ENCOUNTER 2025-04-12 13:25 | Inpatient (IN) | payer MEDICARE, MEDICAID, SELFPAY ==
--- OUTSIDE RECORDS SUMMARY | 2025-01-06 05:20 | XMS_ITS ---
Author Organization [facility] Address [address] [place] [address] Care Team Providers Care Advanced Practice Professional Name Role Phone UNKNOWN, UNKNOWN Primary Care Provider Jamesab Kevin Zelaya Unavailable REASON FOR VISIT VLU/DFU screening Encounters Encounter Location Date Provider Diagnosis [facility] [address] [place] [address] 01/06/2025 Kevin Washington Plan Of Treatment No Information Progress Notes * Chelly BRANeDOB: 7 (60 yo F)Acc No.[id number]:01/06/2025 CLINICAL TRIAL RELATED VISIT Patient: Khadijah EM Farzana Provider: [facility] :1965 A ge:59 Y S ex:Female Date:01/06/2025 Address:[address] [place], [place] [address] Pcp:UNKNOWN UNKNOWN Subjective: * Chief Complaints: * 1 . VLU/DFU screening. * Medical History: Objective: * Vitals: Assessment: Plan: * Treatment: * Images: * Electronic signature of Lara [facility] on 04/12/2025 at 02:48 PM CDT Sign off status: Pending * Provider: [facility] Date: 01/06/2025 Generated for Shree neal/Shanel/Brady on: 04/12/2025 02:48 PM CDT
[2025-04-12] VITALS (24 sets, daily range): BP systolic 123–164; BP diastolic 55–71; PULSE 92–107; RESP 16–27; TEMP 36.2–37; O2SAT 95–100; BMI 31.8
--- NOTE | ~2025-04-12 | CT_ITS ---
EXAMINATION: CT chest abdomen pelvis w con DATE: 04/12/2025 15:38 INDICATION: Liver cancer. Altered mental status. TECHNIQUE: Computed tomography (CT) of the chest, abdomen, and pelvis was performed with 100 mL Omnipaque-350 intravenous contrast. Automated exposure control and iterative reconstruction technique were employed. The dose-length product was 2805.74 mGy-cm. COMPARISON: None FINDINGS: CHEST CT: Mild dependent atelectasis at the posterior lateral right upper and lower lobes and to lesser degree in the posterior medial left lower lobe. Calcified right lower lobe nodules and calcified right hilar lymph nodes consistent with old granulomatous disease. No pneumonia, pulmonary edema or pleural effusion. Heart size is normal. Atherosclerotic coronary artery calcifications. No pericardial effusion. Thoracic aorta is normal in caliber with no dissection. No pathologically enlarged thoracic lymphadenopathy. Likely benign 1 cm hypodense right thyroid nodule. Partially visualized instrumented cervicothoracic posterior spinal fusion. Moderate to severe thoracic spondylosis. ABDOMEN/PELVIS CT: Evaluation of the abdomen is limited in places by streak artifact from cardiac monitoring leads in the patient's arms which are at the patient's side. Heterogeneous hepatic attenuation/enhancement particularly on the right hepatic lobe which could be related to cirrhosis with nodular liver surface. No clearly defined hepatic mass to suggest malignancy however assessment is limited due to the background liver disease and streak artifact. There is a 2.3 cm low- attenuation likely cyst at the dome of the liver. Multiple small gallstones the dependent fundus of the normal-appearing gallbladder with no wall thickening or pericholecystic infiltrate stranding to suggest acute cholecystitis. Splenomegaly measuring 17.1 cm in length suggestive of pulmonary venous hypertension related to cirrhosis. There are multiple splenic calcific lesions consistent with old granulomatous disease. Pancreas, bilateral adrenal glands and kidneys are normal. There is excreted contrast in the bilateral renal collecting systems and ureters. Evaluation of the pelvis is further limited by dense metallic streak artifact from a right total hip arthroplasty as well as motion artifact. No bowel obstruction. Bladder and uterus are unremarkable. No free intraperitoneal gas or fluid. Prominent upper abdominal lymphadenopathy including a 6.3 x 2.7 cm portacaval lymph node, a 2.1 x 1.8 standard gastrohepatic lymph node and a 3.7 x 2.7 cm aortocaval lymph node. Lumbar dextrocurvature with severe spondylosis. IMPRESSION: 1. Cirrhotic liver with heterogeneous enhancement primarily in the right hepatic lobe likely related to cirrhosis. No discrete hepatic mass is identified however sensitivity is decreased by the background liver disease and streak artifact from patient's arms which were at the patient's side during scanning. Given history of reported known liver cancer would recommend correlation with any prior outside imaging. Alternatively repeat imaging could be obtained with dedicated multiphase pre and postcontrast CT or MRI when patient is able to hold still. 2. Multiple enlarged upper abdominal lymph nodes which are concerning for metastatic disease. 3. Splenomegaly consistent with portal venous hypertension secondary to cirrhosis. 4. Cholelithiasis. Reviewed, dictated and finalized at location A. IMPRESSION: 1. Cirrhotic liver with heterogeneous enhancement primarily in the right hepati c lobe likely related to cirrhosis. No discrete hepatic mass is identified koch jc sensitivity is decreased by the background liver disease and streak artifac t from patient's arms which were at the patient's side during scanning. Given h istory of reported known liver cancer would recommend correlation with any prio r outside imaging. Alternatively repeat imaging could be obtained with dedicate d multiphase pre and postcontrast CT or MRI when patient is able to hold still. 2. Multiple enlarged upper abdominal lymph nodes which are concerning for metas tatic disease. 3. Splenomegaly consistent with portal venous hypertension secondary to cirrhos is. 4. Cholelithiasis.
--- NOTE | ~2025-04-12 | MR_ITS ---
EXAMINATION: MR brain/brain stem wo/w con DATE: 04/14/2025 12:52 INDICATION: Altered mental status. Garbled speech. TECHNIQUE: Magnetic resonance imaging (MRI) of the brain and brainstem was performed without and with 18 mL Multihance intravenous contrast. Sequences included sagittal and axial T1-weighted SE, axial diffusion-weighted FS SE, axial 3D SWAN, axial T2-weighted FLAIR, and axial T2-weighted FSE. Postcontrast axial and coronal T1-weighted SE was obtained. Apparent diffusion coefficient (ADC) maps were created. COMPARISON: Head CT and CT angiogram dated 04/12/2025 FINDINGS: There are no areas of restricted diffusion to suggest acute infarction. No intracranial hemorrhage or abnormal intracranial mass lesion. There are a few small scattered foci of nonspecific increased T2-weighted signal intensity in the cerebral white matter, predominantly involving the deep and periventricular white matter which is within normal limits for age and likely sequela of chronic small vessel ischemic disease.. There are no intraparenchymal signal abnormalities seen on the other pulse sequences. The ventricles are symmetric and normal in size. There are no abnormal extra-axial fluid collections. Flow voids are seen in the cerebral arteries on the T2-weighted sequences consistent with their expected patency. Changes of bilateral intraocular lens replacement. Mild mucosal thickening the bilateral ethmoid sinuses. Prominent leftward bowing of the nasal septum. There are no areas of abnormal enhancement on the post contrast images. IMPRESSION: 1. Normal aging brain. No acute intracranial process or abnormally enhancing brain lesions. Reviewed, dictated and finalized at location A. IMPRESSION: 1. Normal aging brain. No acute intracranial process or abnormally enhancing br ain lesions.
--- NOTE | ~2025-04-12 | CT_ITS ---
EXAM: CT cervical spine wo con - 04/15/2025 12:38 CDT History: 60 years old Female with neck pain, RUE weakness COMPARISON: None available. PROCEDURE: CT of the cervical spine without contrast. Axial, sagittal and coronal reformatted planes were evaluated. Automatic exposure control was used for this study. FINDINGS: C2-T2 posterior spinal fusion hardware with intact hardware and no loosening. No acute fracture or subluxation. Straightening of cervical lordosis, likely positional or may be related to muscle spasm. Multilevel degenerative changes of the cervical spine include varying degrees of disk space narrowing, endplate osteophytosis as well as facet and uncal arthropathy. Prevertebral soft tissues are within normal limits. Visualized lung apices are clear. 1.2 cm left thyroid nodule. IMPRESSION: 1. No evidence for cervical spine fracture or traumatic subluxation. 2. Multilevel degenerative changes of the cervical spine. 3. 1.2 cm left thyroid nodule. Nonemergent outpatient thyroid ultrasound is recommended for further evaluation. Reviewed, dictated and finalized at location N. IMPRESSION: 1. No evidence for cervical spine fracture or traumatic subluxation. 2. Multilevel degenerative changes of the cervical spine. 3. 1.2 cm left thyroid nodule. Nonemergent outpatient thyroid ultrasound is re commended for further evaluation.
--- NOTE | ~2025-04-12 | XR_ITS ---
EXAM/ PROCEDURE: XR shoulder RT min 2V - 04/15/2025 12:25 CDT HISTORY: 60 years old Female with right shoulder pain UNKNOWN INJ COMPARISON: None available TECHNIQUE: Three view(s) FINDINGS/ IMPRESSION: There are no fractures or dislocations.Joint space narrowing, subchondral sclerosis, subchondral cyst formation and osteophyte formation, compatible with mild osteoarthritis. Partially visualized spinal fusion hardware. Reviewed, dictated and finalized at location N.
--- NOTE | ~2025-04-12 | MR_ITS ---
EXAMINATION: MR abdomen wo/w con DATE: 04/15/2025 13:41 INDICATION: Assess for primary liver malignancy TECHNIQUE: Magnetic resonance imaging (MRI) of the abdomen was performed without and with 18 mL Multihance intravenous contrast. Sequences included coronal T2- weighted SS-FSE, coronal and axial FS 2D-FIESTA, axial STIR FSE, axial T2- weighted SS-FSE, axial T2-weighted FS SS-FSE, axial diffusion-weighted SE, axial dual-echo T1-weighted FSPGR, and axial and coronal T1-weighted LAVA. Postcontrast axial T1-weighted LAVA images were obtained in a time course. Postcontrast coronal T1-weighted LAVA images were obtained. COMPARISON: CT dated 04/12/2025 FINDINGS: Heart size is normal. No pericardial or pleural effusion. Dependent lung disease in the bilateral lower lobes, left greater than right which could represent atelectasis, pulmonary edema or pneumonia. Nodular liver surface consistent with cirrhosis. There is a 14.7 x 8.4 x 8.1 cm region of heterogeneous increased T2 signal and enhancement occupying a significant portion of the right hepatic lobe. Much of the enhancement at the periphery of the long septations surrounding numerous small lesions without enhancement which suggestive of malignancy with regions of central necrosis. Dependently layering sludge and gallstones within the otherwise normal gallbladder. Splenomegaly measuring 15.5 cm in craniocaudal length consistent with portal venous hypertension. Pancreas, bilateral adrenal glands and right kidney are normal. 5 mm T2 hyperintense nonenhancing left renal cyst. Visualized bowels are unremarkable no obstruction. There are enlarged enhancing left periaortic, periportal and portacaval lymph n odes which are likely metastatic. Mild lumbar dextrocurvature with moderate thoracic and severe lumbar spondylosis. There are associated fibrofatty degenerative endplate changes. No pathologic marrow replacing process. IMPRESSION: 1. Cirrhotic liver with 14.7 x 8.4 x 8.1 cm heterogeneously enhancing lesion occupying a large portion of the right hepatic lobe which appears to represent a conglomeration of centrally necrotic masses concerning for primary malignancy. 2. Several enlarged periaortic, periportal and portacaval lymph nodes consistent with metastatic disease. 3. Cholelithiasis. 4. Multiple opacities in the dependent lower lobes which could represent atelectasis, mild pulmonary edema or pneumonia. 5. Splenomegaly likely related to portal venous hypertension. Reviewed, dictated and finalized at location A. IMPRESSION: 1. Cirrhotic liver with 14.7 x 8.4 x 8.1 cm heterogeneously enhancing lesion oc cupying a large portion of the right hepatic lobe which appears to represent a conglomeration of centrally necrotic masses concerning for primary malignancy. 2. Several enlarged periaortic, periportal and portacaval lymph nodes consisten t with metastatic disease. 3. Cholelithiasis. 4. Multiple opacities in the dependent lower lobes which could represent atelec tasis, mild pulmonary edema or pneumonia. 5. Splenomegaly likely related to portal venous hypertension.
--- NOTE | ~2025-04-12 | CT_ITS ---
EXAMINATION: CTA BRAIN/CAROTID DATE: 04/12/2025 15:38 INDICATION: Altered mental status. Garbled speech. TECHNIQUE: Computed tomographic angiography (CTA) of the head and neck was performed with 100 mL Omnipaque-350 intravenous contrast. Multiplanar reconstructions and maximum intensity projection 3D-reconstructions of the carotid arteries and of the intracranial arteries were created by the technologist on a separate workstation. Automated exposure control and iterative reconstruction technique were employed.The dose-length product was 2805.74 mGy-cm. COMPARISON: None. FINDINGS: Intracranial arteries Right vertebral artery is dominant. Nonhemodynamically significant atherosclerotic plaque at the bilateral carotid siphons. There is no hemodynamically significant stenosis in the vertebral, basilar and internal carotid arteries. The bilateral A1 and right P1 segments are patent. The left A1 segment is relatively small with collateral flow supplied via a patent anterior communicating artery. The left posterior cerebral artery supplied via a patent left posterior communicating artery. There are no aneurysms identified. Cerebral arterial arborization appears symmetric. Carotid arteries: The aortic arch and the great vessels arising from the arch are normal in caliber with no dissection. Atherosclerotic plaque along the left subclavian artery at the origin of the left vertebral artery which appears potentially minimally significant however evaluation is limited by dense streak artifact at this level resulting from residual contrast in the left internal jugular and brachiocephalic veins. There is additional potentially hemodynamically significant stenosis at the origin of the dominant right vertebral artery. There is 35% stenosis of the right carotid bulb relative to normal distal artery lumen diameter (NASCET criteria). There is atherosclerotic plaque with 0% stenosis of the left carotid bulb relative to normal distal artery lumen diameter. Postoperative changes in the cervical spine of C3-T1 laminectomies and instrumented C2-T2 posterior spinal fusion with bilateral vertical tati and lateral mass/pedicle screw fixation. Anterior fusion without instrumentation at T1-T2. Mild emphysema and mild dependent atelectasis in the visualized upper lungs. Likely benign 1.0 cm hypodense right thyroid nodule. IMPRESSION: 1. 35% stenosis of the right carotid bulb relative to normal distal artery lumen diameter (NASCET criteria). 2. 0% stenosis of the left carotid bulb relative to normal distal artery lumen diameter. 3. Unremarkable cerebral CT angiogram with no hemodynamically significant stenosis, thrombosis or aneurysm 3. Suggestion of likely hemodynamically significant stenosis at the origins of the left vertebral and dominant right vertebral arteries. Reviewed, dictated and finalized at location A. IMPRESSION: 1. 35% stenosis of the right carotid bulb relative to normal distal artery lume n diameter (NASCET criteria). 2. 0% stenosis of the left carotid bulb relative to normal distal artery lumen diameter. 3. Unremarkable cerebral CT angiogram with no hemodynamically significant steno sis, thrombosis or aneurysm 3. Suggestion of likely hemodynamically significant stenosis at the origins of the left vertebral and dominant right vertebral arteries.
--- NOTE | ~2025-04-12 | CT_ITS ---
EXAMINATION: CT brain wo con DATE: 04/12/2025 14:31 INDICATION: Altered mental status. Garbled speech. TECHNIQUE: Computed tomography (CT) of the head was performed without intravenous contrast. Sagittal and coronal reconstructions were performed. The mA was adjusted according to patient size. Iterative reconstruction technique was employed. The dose-length product was 1523.88 mGy-cm. COMPARISON: head CT dated 11/15/2024 FINDINGS: No acute intracranial hemorrhage, acute infarction or abnormal extra axial fluid collection. Ventricles are normal and symmetric. No mass/mass effect. The orbits and mastoid air cells are normal. 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 Partially visualized cervical posterior spinal fusion with bilateral vertical rods and lateral mass screws at C2 and extends to C3 and C4 on the childcare provider topogram. IMPRESSION: 1. Normal brain. No acute intracranial process. Reviewed, dictated and finalized at location A.
--- NOTE | 2025-04-12 13:34 | ECG_ITS ---
Test Date: 2025-04-12 14:39:47 Measurements Intervals [place] Rate: 105 P: 68 CO: 185 QRS: 67 QRSD: 106 T: 75 QT: 368 QTc: 488 Interpretive Statements SINUS TACHYCARDIA BASELINE ARTIFACT- I, II, III, AVR, AVL, AVF, V1-V2, V4-V6 BORDERLINE ECG Compared to ECG 11/15/2024 09:23:17 NO SIGNIFICANT CHANGE Electronically Signed On 04-12-2025 15:53:02 CDT by Doug Huffman D.O.
[2025-04-12 13:58] LABS: Add Urine Microscopic? YES; Appearance Urine Cloudy (Clear); Glucose Urine UA Trace mg/dL (Negative); Leukocyte Esterase Ur Negative LEU/UL (Negative); Nitrate Urine Negative (Negative); Non Pathogenic Casts 0-2; Specific Grav Ur 1.028 (1.001-1.035)
[2025-04-12 14:11] LABS: Hematocrit 38.9 % (37.0-47.0); Hemoglobin 13.0 g/dL (12.0-15.0); Immature Granulocyte Percent A 0.4 % (0-0.5); Lymphocytes Absolute Auto 0.89 K/mm3 (0.9-3.2); Mean Corpuscular HGB Conc 33.4 g/dl (32-36); Mean Corpuscular Hemoglobin 28.7 pg (26-34); Mean Corpuscular Volume 85.9 fl (80-100); Nucleated Red Blood Cells Absolute Auto 0.000 K/mm3 (0.0-0.012); Nucleated Red Blood Cells Perc 0.0 % (0.0-0.2); Platelet Count Result 100 k/mm3 (150-375); Red Blood Count 4.53 M/mm3 (4.2-5.4); White Blood Count 8.3 K/mm3 (4.5-10.0)
[2025-04-12 14:21] LABS: INR 1.2; Prothrombin Time 15.6 Seconds (11.1-14.7)
[2025-04-12 14:22] LABS: Partial Thromboplastin Time 28.1 Seconds (22.3-36.8)
[2025-04-12 14:23] LABS: Alanine Aminotransferase 30 U/L (6-35); Albumin Level 4.2 g/dL (3.5-5.1); Alkaline Phosphatase 158 U/L (38-126); Anion Gap 13 mmol/L (4-12); Aspartate Amino Transferase 67 U/L (14-36); Bilirubin,Total 1.5 mg/dL (0.2-1.3); Blood Urea Nitrogen 17 mg/dL (7-17); Calcium 9.2 mg/dL (8.4-10.2); Carbon Dioxide 20 mmol/L (22-30); Chloride 99 mmol/L (98-107); Estimated CRCL calculation 88 ml/min; Estimated Glomerular Filt Rate > 60; Glucose 247 mg/dL (65-110); Potassium 4.0 mmol/L (3.4-5.0); Sodium 132 mmol/L (137-145); Total Protein 9.8 g/dL (6.3-8.2)
--- NOTE | 2025-04-12 14:35 | ED.NEUROSD ---
HPI - Neuro Symptoms/Deficit General Chief Complaint: Suspected CVA <Emerald Vences PA-C - Last Filed: 04/12/25 17:17> Stated Complaint: ams <Emerald Vences PA-C - Last Filed: 04/12/25 17:17> Time Seen by Provider: 04/12/25 14:04 <Emerald Vences PA-C - Last Filed: 04/12/25 17:17> Source: patient and EMS <Emerald Vences PA-C - Last Filed: 04/12/25 17:17> Mode of arrival: EMS <NICHOLAS Orozco Last Filed: 04/12/25 17:17> Limitations: clinical condition <NICHOLAS Orozco Last Filed: 04/12/25 17:17> History of Present Illness HPI Narrative: Patient is a 60 year old female who presents the ED via EMS with report of altered mental status. Per EMS report, patient's family called for EMS today as patient was altered. They reported that they last saw patient in her normal state of health around 2:00 a.m. this morning. They noted that she was confused this afternoon with garbled speech. Family has history of type 2 diabetes, liver cancer with metastases to abdominal lymph nodes. <Emerald Vences PA-C - Last Filed: 04/12/25 17:17> Related Data Home Medications: Home Medications ?Medication ?Instructions ?Recorded ?Confirmed ?Last Taken ?Type cyclobenzaprine 10 mg tablet 10 mg PO BID 05/23/23 04/12/25 Unknown History gabapentin 300 mg capsule 300 mg PO BID 05/23/23 04/12/25 Unknown History glipizide 10 mg tablet 10 mg PO BID 05/23/23 04/12/25 Unknown History insulin detemir U-100 100 unit/mL 12 unit subcut HS 05/23/23 04/12/25 Unknown History (3 mL) subcutaneous pen meloxicam 15 mg tablet 15 mg PO HS 05/23/23 04/12/25 Unknown History esomeprazole magnesium 40 mg 40 mg PO Q24H 04/12/25 04/12/25 Unknown History capsule,delayed release methocarbamol 500 mg tablet 1,000 mg PO QID 04/12/25 04/12/25 Unknown History omeprazole 40 mg capsule,delayed 40 mg PO DAILY 04/12/25 04/12/25 Unknown History release <Emerald Vences PA-C - Last Filed: 04/12/25 17:17> Allergies/Adverse Reactions: Allergies Allergy/AdvReac Type Severity Reaction Status Date / Time naproxen Allergy Unknown Hives Verified 11/15/24 13:06 <Emerald Vences PA-C - Last Filed: 04/12/25 17:17> Review of Systems Review of Systems: All systems reviewed & are unremarkable except as noted in HPI. <Emerald Vences PA-C - Last Filed: 04/12/25 17:17> All systems reviewed & are unremarkable except as noted in HPI and below <Emerald Vences PA-C - Last Filed: 04/12/25 17:17> [facility] Past Medical History Medical History: Medical History Cervical vertebral fusion TBI (traumatic brain injury) <Emerald Vences PA-C - Last Filed: 04/12/25 17:17> Family History Family History: Family History Other Cerebrovascular accident Diabetes mellitus Family history of cardiovascular disease Family history of malignant neoplasm Hypertension <Emerald Vences PA-C - Last Filed: 04/12/25 17:17> Social History Social History: Social History Smoking packs per day: 0.1 Smoking cigarettes per day: 2.0 Years smoked: 40 Smoking pack-years: 4.00 Smoking status: Current every day smoker Tobacco type: cigarettes Alcohol intake: never Substance use: current Substance use type: marijuana Lack of Transportation: No Lack of Food: Never True Current Housing: I Have Housing Concerned About Future Housing: No Difficulty Paying Gas/Electric Bills: No Difficulty Paying for Meds: No Currently Unemployed: No Education: High School Diploma/GED Difficulty w/ Childcare or Family Care: No Spiritual care concerns: No <Emerald Vences PA-C - Last Filed: 04/12/25 17:17> Exam Narrative: GENERAL: Appears older than stated age, mildly disheveled, obese with BMI of 31.8, in no acute distress. HEAD: Normocephalic, atraumatic. EYES: PERRL/EOMI, conjunctivae clear bilaterally. No nystagmus. ENT: MMs very dry and crusted. Missing several teeth. NECK: Supple. No meningeal signs. RESPIRATORY: Airway patent, respirations nonlabored. Clear to auscultation bilaterally, no rales, rhonchi, wheezing. CARDIOVASCULAR: Borderline tachycardic with regular rhythm without murmurs, rubs, or gallops. Peripheral pulses 2+ and equal bilaterally. ABDOMINAL: Soft, no appreciable tenderness, nondistended. Normoactive BS. MUSCULOSKELETAL: Moves all extremities. No gross deformities. SKIN: Warm, dry, normal color. Chronic ulcerative wounds to L medial lower leg, minimal surrounding erythema. No drainage. NEURO: A&O X3, able to answer orientation questions but has garbled speech/incoherent words that follow comprehensible words. Follows most commands, but does require multiple redirections. CN II-XII grossly intact. Sensation grossly intact. No ataxic movements. Strength 5/5 in upper and lower extremities bilaterally. No appreciable pronator drift. 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 PSYCHIATRIC: Difficult to assess, no obvious evidence of psychosis. Normal mood <Emerald Vences PA-C - Last Filed: 04/12/25 17:17> Course RESIDENT INSPECTOR/PA Physician Supervision This visit was performed by both a physician and an APC. I performed all aspects of the MDM as documented. <Faisal Harding MD - Last Filed: 04/12/25 18:52> Vital Signs Vital signs: Vital Signs Temperature 98.6 F 04/12/25 13:23 Pulse Rate 100 04/12/25 13:23 Respiratory Rate 21 H 04/12/25 13:23 Blood Pressure 154/69 H 04/12/25 13:23 Pulse Oximetry 98 04/12/25 13:23 Oxygen Delivery Room Air 04/12/25 13:23 Temperature 98.6 F 04/12/25 13:23 Pulse Rate 106 H 04/12/25 17:32 Respiratory Rate 21 H 04/12/25 17:32 Blood Pressure 123/55 L 04/12/25 16:45 Pulse Oximetry 100 04/12/25 16:45 Oxygen Delivery Room Air 04/12/25 14:08 <Emerald Vences PA-C - Last Filed: 04/12/25 17:17> Vital Signs Temperature 98.6 F 04/12/25 13:23 Pulse Rate 100 04/12/25 13:23 Respiratory Rate 21 H 04/12/25 13:23 Blood Pressure 154/69 H 04/12/25 13:23 Pulse Oximetry 98 04/12/25 13:23 Oxygen Delivery Room Air 04/12/25 13:23 Temperature 98.6 F 04/12/25 13:23 Pulse Rate 106 H 04/12/25 17:32 Respiratory Rate 21 H 04/12/25 17:32 Blood Pressure 123/55 L 04/12/25 16:45 Pulse Oximetry 100 04/12/25 16:45 Oxygen Delivery Room Air 04/12/25 14:08 <Faisal Harding MD - Last Filed: 04/12/25 18:52> MDM - Neuro Symptoms/Deficit MDM Narrative Medical decision making narrative: Patient presented to ED from home with report of altered mental status, garbled speech. Last known well 2 a.m. this morning. Patient's vital signs are stable upon arrival. She is borderline tachycardic. Fluids initiated. Her mouth does appear very dry. She is alert and oriented x3 and does appear to be neurologically intact upon my evaluation. She does have garbled speech at times with questioning, but I do not appreciate any strength discrepancies in upper lower extremities. She follows most commands, but requires some redirection. Laboratory studies without significant abnormalities. No leukocytosis or anemia. Shows chronic thrombocytopenia. CMP was some evidence of dehydration but kidney function is stable. Blood glucose mildly elevated to 247. Lactic acid within normal range. Chronic mild elevation of liver enzymes, appear consistent with previous records. Ammonia within normal range. Viral swabs are negative. Alcohol level negative. UA with 3+ ketones, but no signs of infection. UDS did result positive for amphetamines and cannabinoids. EKG with sinus tachycardia, no concerning ST changes. Troponin is undetectable. CT brain without acute findings. CTA of brain and carotids showing very mild carotid stenosis on R, possible hemodynamically significant vertebral artery stenosis. No large vessel occlusion. No aneurysm. CT of chest/abdomen/pelvis was obtained as part of altered mental status workup and shows findings consistent with family's report of metastatic liver cancer. No other acute findings. Patient will be admitted for further evaluation of altered mental status. Discussed case with Ana SIMENTAL hospitalist, accepted patient for admission. <Emerald Vences PA-C - Last Filed: 04/12/25 17:17> Patient presented to ED from home with report of altered mental status, garbled speech. Last known well 2 a.m. this morning. Patient's vital signs are stable upon arrival. She is borderline tachycardic. Fluids initiated. Her mouth does appear very dry. She is alert and oriented x3 and does appear to be neurologically intact upon my evaluation. She does have garbled speech at times with questioning, but I do not appreciate any strength discrepancies in upper lower extremities. She follows most commands, but requires some redirection. Laboratory studies without significant abnormalities. No leukocytosis or anemia. Shows chronic thrombocytopenia. CMP was some evidence of dehydration but kidney function is stable. Blood glucose mildly elevated to 247. Lactic acid within normal range. Chronic mild elevation of liver enzymes, appear consistent with previous records. Ammonia within normal range. Viral swabs are negative. Alcohol level negative. UA with 3+ ketones, but no signs of infection. UDS did result positive for amphetamines and cannabinoids. EKG with sinus tachycardia, no concerning ST changes. Troponin is undetectable. CT brain without acute findings. CTA of brain and carotids showing very mild carotid stenosis on R, possible hemodynamically significant vertebral artery stenosis. No large vessel occlusion. No aneurysm. CT of chest/abdomen/pelvis was obtained as part of altered mental status workup and shows findings consistent with family's report of metastatic liver cancer. No other acute findings. Patient will be admitted for further evaluation of altered mental status. Discussed case with Ana SIMENTAL hospitalist, accepted patient for admission. This visit was performed by both a physician and an APC. I performed all aspects of the MDM as documented. <Faisal Harding MD - Last Filed: 04/12/25 18:52> Medical Records Attestation: I reviewed the patient's medical records. <Emerald Vences PA-C - Last Filed: 04/12/25 17:17> Lab Data Attestation: I reviewed the patient's lab results. <Emerald Vences PA-C - Last Filed: 04/12/25 17:17> Result diagrams: 04/12/25 14:05 04/12/25 14:05 <Emerald Vences PA-C - Last Filed: 04/12/25 17:17> Labs: Lab Results 04/12/25 04/12/25 04/12/25 Range/Units 13:33 13:46 14:05 WBC 8.3 (4.5-10.0) K/mm3 RBC 4.53 (4.2-5.4) M/mm3 Hgb 13.0 (12.0-15.0) g/dL Hct 38.9 (37.0-47.0) % MCV 85.9 (80-100) fl MCH 28.7 (26-34) pg MCHC 33.4 (32-36) g/dl RDW 14.0 (11.5-14.5) % Plt Count 100 L (150-375) k/mm3 MPV 8.8 (7.4-10.4) fl Immature Gran % (Auto) 0.4 (0-0.5) % Neut % (Auto) 79.5 H (45.5-73.1) % Lymph % (Auto) 10.7 L (18.3-44.2) % [place] % (Auto) 9.0 H (2.6-8.5) % Eos % (Auto) 0.0 (0-4.4) % Baso % (Auto) 0.4 (0.2-1.2) % Lymph # (Auto) 0.89 L (0.9-3.2) K/mm3 [place] # (Auto) 0.8 H (0.1-0.6) K/mm3 Eos # (Auto) 0.0 (0-0.3) K/mm3 Baso # (Auto) 0.0 (0.0-0.1) K/mm3 Abs Immat Gran (auto) 0.03 (0.00-0.031) K/mm3 Absolute Neuts (auto) 6.6 (1.3-6.7) K/mm3 Absolute Nucleated RBC 0.000 (0.0-0.012) K/mm3 Nucleated RBC % 0.0 (0.0-0.2) % PT 15.6 H (11.1-14.7) Seconds INR 1.2 APTT 28.1 (22.3-36.8) Seconds Methemoglobin (0-1.5) %THb Sodium 132 L (137-145) mmol/L Potassium 4.0 (3.4-5.0) mmol/L Chloride 99 (98-107) mmol/L Carbon Dioxide 20 L (22-30) mmol/L Anion Gap 13 H (4-12) mmol/L BUN 17 (7-17) mg/dL Creatinine 0.67 L (0.7-1.0) mg/dL Estim Creat Clear Calc 88 ml/min Estimated GFR > 60 (59 - ) Glucose 247 H (65-110) mg/dL POC Capillary Glucose 240 H (65-105) mg/dl Lactic Acid (0.7-2.0) mmol/L Calcium 9.2 (8.4-10.2) mg/dL Magnesium 1.6 (1.6-2.3) mg/dL Total Bilirubin 1.5 H (0.2-1.3) mg/dL AST 67 H (14-36) U/L ALT 30 (6-35) U/L Alkaline Phosphatase 158 H (38-126) U/L Ammonia (9-30) umol/L Total Creatine Kinase 154 H (30-135) U/L Troponin I < 0.012 (0.000-0.034) ng/mL Total Protein 9.8 H (6.3-8.2) g/dL Albumin 4.2 (3.5-5.1) g/dL Urine Color Dark yellow (Yellow) Urine Appearance Cloudy H (Clear) Urine pH 5.5 (5.0-9.0) Ur Specific [place] 1.028 (1.001-1.035) Urine Protein 3+ H (Negative) mg/dL Urine Glucose (UA) Trace H (Negative) mg/dL Urine Ketones 3+ H (Negative) mg/dL Ur Blood (Man) 2+ H (Negative) Urine Nitrate Negative (Negative) Urine Bilirubin Negative (Negative) Urine Urobilinogen 1.0 (<2.0) mg/dL Leukocyte Esterase Rfl Negative (Negative) UDAY/UL Urine RBC 11-20 H (0-2) /hpf Urine WBC 0-5 (0-3) /hpf Ur Squamous Epith Cells None seen (Few) /hpf Urine Bacteria None seen /hpf Urine Casts 0-2 Urine Opiates Screen Negative (Negative) Urine Methadone Screen Negative (Negative) Ur Barbiturates Screen Negative (Negative) Ur Phencyclidine Scrn Negative (Negative) Ur Amphetamine Screen Positive A (Negative) U Benzodiazepines Scrn Negative (Negative) Urine Cocaine Screen Negative (Negative) U Cannabinoids Screen Positive A (Negative) Ethyl Alcohol < 10 (<10) mg/dL Influenza A (RT-PCR) (Negative) Influenza B (RT-PCR) (Negative) RSV (RT-PCR) (Negative) SARS-CoV-2 RNA (RT-PCR) (Negative) 04/12/25 04/12/25 04/12/25 Range/Units 14:43 14:51 15:36 WBC (4.5-10.0) K/mm3 RBC (4.2-5.4) M/mm3 Hgb (12.0-15.0) g/dL Hct (37.0-47.0) % MCV (80-100) fl MCH (26-34) pg MCHC (32-36) g/dl RDW (11.5-14.5) % Plt Count (150-375) k/mm3 MPV (7.4-10.4) fl Immature Gran % (Auto) (0-0.5) % Neut % (Auto) (45.5-73.1) % Lymph % (Auto) (18.3-44.2) % [place] % (Auto) (2.6-8.5) % Eos % (Auto) (0-4.4) % Baso % (Auto) (0.2-1.2) % Lymph # (Auto) (0.9-3.2) K/mm3 [place] # (Auto) (0.1-0.6) K/mm3 Eos # (Auto) (0-0.3) K/mm3 Baso # (Auto) (0.0-0.1) K/mm3 Abs Immat Gran (auto) (0.00-0.031) K/mm3 Absolute Neuts (auto) (1.3-6.7) K/mm3 Absolute Nucleated RBC (0.0-0.012) K/mm3 Nucleated RBC % (0.0-0.2) % PT (11.1-14.7) Seconds INR APTT (22.3-36.8) Seconds Methemoglobin 0.3 (0-1.5) %THb Sodium (137-145) mmol/L Potassium (3.4-5.0) mmol/L Chloride (98-107) mmol/L Carbon Dioxide (22-30) mmol/L Anion Gap (4-12) mmol/L BUN (7-17) mg/dL Creatinine (0.7-1.0) mg/dL Estim Creat Clear Calc ml/min Estimated GFR (59 - ) Glucose (65-110) mg/dL POC Capillary Glucose (65-105) mg/dl Lactic Acid 1.9 (0.7-2.0) mmol/L Calcium (8.4-10.2) mg/dL Magnesium (1.6-2.3) mg/dL Total Bilirubin (0.2-1.3) mg/dL AST (14-36) U/L ALT (6-35) U/L Alkaline Phosphatase (38-126) U/L Ammonia 18 (9-30) umol/L Total Creatine Kinase (30-135) U/L Troponin I (0.000-0.034) ng/mL Total Protein (6.3-8.2) g/dL Albumin (3.5-5.1) g/dL Urine Color (Yellow) Urine Appearance (Clear) Urine pH (5.0-9.0) Ur Specific [place] (1.001-1.035) Urine Protein (Negative) mg/dL Urine Glucose (UA) (Negative) mg/dL Urine Ketones (Negative) mg/dL Ur Blood (Man) (Negative) Urine Nitrate (Negative) Urine Bilirubin (Negative) Urine Urobilinogen (<2.0) mg/dL Leukocyte Esterase Rfl (Negative) UDAY/UL Urine RBC (0-2) /hpf Urine WBC (0-3) /hpf Ur Squamous Epith Cells (Few) /hpf Urine Bacteria /hpf Urine Casts Urine Opiates Screen (Negative) Urine Methadone Screen (Negative) Ur Barbiturates Screen (Negative) Ur Phencyclidine Scrn (Negative) Ur Amphetamine Screen (Negative) U Benzodiazepines Scrn (Negative) Urine Cocaine Screen (Negative) U Cannabinoids Screen (Negative) Ethyl Alcohol (<10) mg/dL Influenza A (RT-PCR) Negative (Negative) Influenza B (RT-PCR) Negative (Negative) RSV (RT-PCR) Negative (Negative) SARS-CoV-2 RNA (RT-PCR) Negative (Negative) <Emerald Vences PA-C - Last Filed: 04/12/25 17:17> Lab Results 04/12/25 04/12/25 04/12/25 Range/Units 13:33 13:46 14:05 WBC 8.3 (4.5-10.0) K/mm3 RBC 4.53 (4.2-5.4) M/mm3 Hgb 13.0 (12.0-15.0) g/dL Hct 38.9 (37.0-47.0) % MCV 85.9 (80-100) fl MCH 28.7 (26-34) pg MCHC 33.4 (32-36) g/dl RDW 14.0 (11.5-14.5) % Plt Count 100 L (150-375) k/mm3 MPV 8.8 (7.4-10.4) fl Immature Gran % (Auto) 0.4 (0-0.5) % Neut % (Auto) 79.5 H (45.5-73.1) % Lymph % (Auto) 10.7 L (18.3-44.2) % [place] % (Auto) 9.0 H (2.6-8.5) % Eos % (Auto) 0.0 (0-4.4) % Baso % (Auto) 0.4 (0.2-1.2) % Lymph # (Auto) 0.89 L (0.9-3.2) K/mm3 [place] # (Auto) 0.8 H (0.1-0.6) K/mm3 Eos # (Auto) 0.0 (0-0.3) K/mm3 Baso # (Auto) 0.0 (0.0-0.1) K/mm3 Abs Immat Gran (auto) 0.03 (0.00-0.031) K/mm3 Absolute Neuts (auto) 6.6 (1.3-6.7) K/mm3 Absolute Nucleated RBC 0.000 (0.0-0.012) K/mm3 Nucleated RBC % 0.0 (0.0-0.2) % PT 15.6 H (11.1-14.7) Seconds INR 1.2 APTT 28.1 (22.3-36.8) Seconds Methemoglobin (0-1.5) %THb Sodium 132 L (137-145) mmol/L Potassium 4.0 (3.4-5.0) mmol/L Chloride 99 (98-107) mmol/L Carbon Dioxide 20 L (22-30) mmol/L Anion Gap 13 H (4-12) mmol/L BUN 17 (7-17) mg/dL Creatinine 0.67 L (0.7-1.0) mg/dL Estim Creat Clear Calc 88 ml/min Estimated GFR > 60 (59 - ) Glucose 247 H (65-110) mg/dL POC Capillary Glucose 240 H (65-105) mg/dl Lactic Acid (0.7-2.0) mmol/L Calcium 9.2 (8.4-10.2) mg/dL Magnesium 1.6 (1.6-2.3) mg/dL Total Bilirubin 1.5 H (0.2-1.3) mg/dL AST 67 H (14-36) U/L ALT 30 (6-35) U/L Alkaline Phosphatase 158 H (38-126) U/L Ammonia (9-30) umol/L Total Creatine Kinase 154 H (30-135) U/L Troponin I < 0.012 (0.000-0.034) ng/mL Total Protein 9.8 H (6.3-8.2) g/dL Albumin 4.2 (3.5-5.1) g/dL Urine Color Dark yellow (Yellow) Urine Appearance Cloudy H (Clear) Urine pH 5.5 (5.0-9.0) Ur Specific [place] 1.028 (1.001-1.035) Urine Protein 3+ H (Negative) mg/dL Urine Glucose (UA) Trace H (Negative) mg/dL Urine Ketones 3+ H (Negative) mg/dL Ur Blood (Man) 2+ H (Negative) Urine Nitrate Negative (Negative) Urine Bilirubin Negative (Negative) Urine Urobilinogen 1.0 (<2.0) mg/dL Leukocyte Esterase Rfl Negative (Negative) UDAY/UL Urine RBC 11-20 H (0-2) /hpf Urine WBC 0-5 (0-3) /hpf Ur Squamous Epith Cells None seen (Few) /hpf Urine Bacteria None seen /hpf Urine Casts 0-2 Urine Opiates Screen Negative (Negative) Urine Methadone Screen Negative (Negative) Ur Barbiturates Screen Negative (Negative) Ur Phencyclidine Scrn Negative (Negative) Ur Amphetamine Screen Positive A (Negative) U Benzodiazepines Scrn Negative (Negative) Urine Cocaine Screen Negative (Negative) U Cannabinoids Screen Positive A (Negative) Ethyl Alcohol < 10 (<10) mg/dL Influenza A (RT-PCR) (Negative) Influenza B (RT-PCR) (Negative) RSV (RT-PCR) (Negative) SARS-CoV-2 RNA (RT-PCR) (Negative) 04/12/25 04/12/25 04/12/25 Range/Units 14:43 14:51 15:36 WBC (4.5-10.0) K/mm3 RBC (4.2-5.4) M/mm3 Hgb (12.0-15.0) g/dL Hct (37.0-47.0) % MCV (80-100) fl MCH (26-34) pg MCHC (32-36) g/dl RDW (11.5-14.5) % Plt Count (150-375) k/mm3 MPV (7.4-10.4) fl Immature Gran % (Auto) (0-0.5) % Neut % (Auto) (45.5-73.1) % Lymph % (Auto) (18.3-44.2) % [place] % (Auto) (2.6-8.5) % Eos % (Auto) (0-4.4) % Baso % (Auto) (0.2-1.2) % Lymph # (Auto) (0.9-3.2) K/mm3 [place] # (Auto) (0.1-0.6) K/mm3 Eos # (Auto) (0-0.3) K/mm3 Baso # (Auto) (0.0-0.1) K/mm3 Abs Immat Gran (auto) (0.00-0.031) K/mm3 Absolute Neuts (auto) (1.3-6.7) K/mm3 Absolute Nucleated RBC (0.0-0.012) K/mm3 Nucleated RBC % (0.0-0.2) % PT (11.1-14.7) Seconds INR APTT (22.3-36.8) Seconds Methemoglobin 0.3 (0-1.5) %THb Sodium (137-145) mmol/L Potassium (3.4-5.0) mmol/L Chloride (98-107) mmol/L Carbon Dioxide (22-30) mmol/L Anion Gap (4-12) mmol/L BUN (7-17) mg/dL Creatinine (0.7-1.0) mg/dL Estim Creat Clear Calc ml/min Estimated GFR (59 - ) Glucose (65-110) mg/dL POC Capillary Glucose (65-105) mg/dl Lactic Acid 1.9 (0.7-2.0) mmol/L Calcium (8.4-10.2) mg/dL Magnesium (1.6-2.3) mg/dL Total Bilirubin (0.2-1.3) mg/dL AST (14-36) U/L ALT (6-35) U/L Alkaline Phosphatase (38-126) U/L Ammonia 18 (9-30) umol/L Total Creatine Kinase (30-135) U/L Troponin I (0.000-0.034) ng/mL Total Protein (6.3-8.2) g/dL Albumin (3.5-5.1) g/dL Urine Color (Yellow) Urine Appearance (Clear) Urine pH (5.0-9.0) Ur Specific [place] (1.001-1.035) Urine Protein (Negative) mg/dL Urine Glucose (UA) (Negative) mg/dL Urine Ketones (Negative) mg/dL Ur Blood (Man) (Negative) Urine Nitrate (Negative) Urine Bilirubin (Negative) Urine Urobilinogen (<2.0) mg/dL Leukocyte Esterase Rfl (Negative) UDAY/UL Urine RBC (0-2) /hpf Urine WBC (0-3) /hpf Ur Squamous Epith Cells (Few) /hpf Urine Bacteria /hpf Urine Casts Urine Opiates Screen (Negative) Urine Methadone Screen (Negative) Ur Barbiturates Screen (Negative) Ur Phencyclidine Scrn (Negative) Ur Amphetamine Screen (Negative) U Benzodiazepines Scrn (Negative) Urine Cocaine Screen (Negative) U Cannabinoids Screen (Negative) Ethyl Alcohol (<10) mg/dL Influenza A (RT-PCR) Negative (Negative) Influenza B (RT-PCR) Negative (Negative) RSV (RT-PCR) Negative (Negative) SARS-CoV-2 RNA (RT-PCR) Negative (Negative) <Faisal Harding MD - Last Filed: 04/12/25 18:52> ABG Data ABG results: 04/12/25 14:43 Puncture Site Right radial ABG pH 7.492 H ABG pCO2 30.2 L ABG pO2 76.9 L ABG PO2/FiO2 Ratio 3.66 ABG HCO3 22.6 ABG O2 Saturation 96.4 ABG O2 Content 18.3 ABG Base Excess 0.3 A-a Gradient 36.7 Oxyhemoglobin 94.6 Carboxyhemoglobin 1.5 Reduced Hemoglobin 3.6 Total Hemoglobin 13.7 O2 Delivery Device Room air O2 Liters/Min Not Reportable FiO2 21 <Emerald Vences PA-C - Last Filed: 04/12/25 17:17> 04/12/25 14:43 Puncture Site Right radial ABG pH 7.492 H ABG pCO2 30.2 L ABG pO2 76.9 L ABG PO2/FiO2 Ratio 3.66 ABG HCO3 22.6 ABG O2 Saturation 96.4 ABG O2 Content 18.3 ABG Base Excess 0.3 A-a Gradient 36.7 Oxyhemoglobin 94.6 Carboxyhemoglobin 1.5 Reduced Hemoglobin 3.6 Total Hemoglobin 13.7 O2 Delivery Device Room air O2 Liters/Min Not Reportable FiO2 21 <Faisal Harding MD - Last Filed: 04/12/25 18:52> Attestation: I personally reviewed and interpreted this ABG as follows: <Emerald Vences PA-C - Last Filed: 04/12/25 17:17> Imaging Data Attestation: I personally reviewed and interpreted this imaging study as follows: <Emerald Vences PA-C - Last Filed: 04/12/25 17:17> Radiologist's impression: ITS Impressions Head CT 04/12/25 14:32 IMPRESSION: 1. Normal brain. No acute intracranial process. Head/Neck CTA 04/12/25 15:43 IMPRESSION: 1. 35% stenosis of the right carotid bulb relative to normal distal artery lumen diameter (NASCET criteria). 2. 0% stenosis of the left carotid bulb relative to normal distal artery lumen diameter. 3. Unremarkable cerebral CT angiogram with no hemodynamically significant stenosis, thrombosis or aneurysm 3. Suggestion of likely hemodynamically significant stenosis at the origins of the left vertebral and dominant right vertebral arteries. Chest/Abdomen/Pelvis CT 04/12/25 16:08 IMPRESSION: 1. Cirrhotic liver with heterogeneous enhancement primarily in the right hepatic lobe likely related to cirrhosis. No discrete hepatic mass is identified however sensitivity is decreased by the background liver disease and streak artifact from patient's arms which were at the patient's side during scanning. Given history of reported known liver cancer would recommend correlation with any prior outside imaging. Alternatively repeat imaging could be obtained with dedicated multiphase pre and postcontrast CT or MRI when patient is able to hold still. 2. Multiple enlarged upper abdominal lymph nodes which are concerning for metastatic disease. 3. Splenomegaly consistent with portal venous hypertension secondary to cirrhosis. 4. Cholelithiasis. <Emerald Vences PA-C - Last Filed: 04/12/25 17:17> ECG Data EKG #1: Attestation: I personally reviewed and interpreted this ECG as follows: <Emerald Vences PA-C - Last Filed: 04/12/25 17:17> ECG completion date: 04/12/25 <Emerald Vences PA-C - Last Filed: 04/12/25 17:17> ECG completion time: 14:39 <Emerald Vences PA-C - Last Filed: 04/12/25 17:17> EKG Interpretation: tachycardia (105), sinus rhythm and no ST changes <Emerald Vences PA-C - Last Filed: 04/12/25 17:17> Discharge Plan Discharge Clinical Impression: History of liver cancer, Amphetamine use, Dehydration, Garbled speech Altered mental status Qualifiers: Altered mental status type: unspecified Qualified Code(s): R41.82 - Altered mental status, unspecified Vertebral artery stenosis Qualifiers: Laterality: bilateral Qualified Code(s): I65.03 - Occlusion and stenosis of bilateral vertebral arteries <Emerald Vences PA-C - Last Filed: 04/12/25 17:17> Patient Disposition: Still a Patient <Emerald Vences PA-C - Last Filed: 04/12/25 17:17> Condition: Stable <Emerald Vences PA-C - Last Filed: 04/12/25 17:17>
[2025-04-12] MEDS: SODIUM CHLORIDE 0.9% IV 1,000 ML 999 ML IV CONT ×2 (14:45→14:46)
[2025-04-12 14:46] LABS: Alveolar/Arterial O2 Gradient 36.7 mmHg; Carboxyhemoglobin 1.5 % THb (0-2.0); Fractional Inspired Oxygen 21 %; HCO3 ABG 22.6 mEq/l (22.0-26.0); Methemoglobin ABG 0.3 %THb (0-1.5); Modified Allen's Test Pass; Oxygen Content ABG 18.3 %vol (16.0-22.0); Oxygen Saturation ABG 96.4 % (95.0-100.0); PCO2 ABG 30.2 mmHg (35.0-45.0); PO2 ABG 76.9 mmHg (80.0-100.0); PO2 FiO2 Ratio Arterial Blood 3.66 %; Reduced Hemoglobin 3.6 %THb (0-5.0); Site Drawn RIGHT RADIAL
--- OUTSIDE RECORDS SUMMARY | 2025-04-12 14:48 | XMS_ITS | Encounter Summary ---
Author Organization [facility] Health Address [address] [place] [address] Care Team Providers Care Physical Security Engineer Name Role Phone Unavailable Primary Care Provider Unavailabl e Encounter Details Date Type Department Care Team (Late st Contact Info) Description 12/11/2023 Ophth Exam [facility] - [facility] [address] [place] [phone] Miya Crooks MD [address] [place] [phone] Social History Tobacco Use Types Packs/Day Years [...] medical care, and heating? Somewhat hard 12/11/2023 [employer] [place] of Occupat ional Health - Occupational Stress [...] a group home (including now)? No 12/11/2023 Comments Unknown Sex [...]
--- OUTSIDE RECORDS SUMMARY | 2025-04-12 14:48 | XMS_ITS | Encounter Summary ---
Author Organization [facility] Address [address] [place] [address] Phone Care Team Providers Care Blocking Machine Operator Name Role Phone Nayana Garber PAC Primary Care Provider + Encounter Details Date Type Department Care Team (Late st Contact Info) Description 11/26/2024 [facility] [address] [place] [address] [place] [address] [place] [address] Local infection of the skin and subcutaneous tissue, unspecified Social History Tobacco Use Types Packs/Day Years Used Date Smoking Tobacco: Unknown [facility] Utilities Answer Date Recorded In the past 12 months has [employer] electric, gas, oil, or water company threatened [...] declined 11/15/2024 How often do you attend islam or taoist serv ices? Patient declined 11/15/2024 Do you belong to any clubs o r organizations such as islam groups, unions, fraternal or athletic groups, or [...] medical care, and heating? Patient declined 11/15/2024 [facility] of Occupat ional Health - [...] time in the past 12 m [facility], were you homeless or living in a care home (including now)? Patient declined 11/15/2024 Comments Unknown Sex and Gender Information Value Date Recorded Sex Assigned at Not on file Legal Sex Female 11:42 AM CDT Gender Identity Not on file Sexual Orientation Not on file documented as of this encounter Plan of Treatment Upcoming Encounters Date Type Department Care Team (Late st Contact Info) Description 04/15/2025 1:00 PM CDT Office Visit [facility] 1 [place] [address] Daquan Nunez MD [address]1 [place] [address] Discharge Disposition: Discharged to home or Selfcare 04/22/2025 1:00 PM CDT Office Visit [facility] 1 [place] [address] Daquan Nunez MD [address] [place] [address] 04/28/2025 3:20 PM CDT Office Visit [facility] [address] [place] [address] Serjio Santoro MD [address] [place] [address] Discharge Disposition: Discharged to home or Selfcare 04/28/2025 4:00 PM CDT Lab [facility] [address] [place] [phone] Discharge Disposition: Discharged to home or Selfcare 04/29/2025 1:00 PM CDT Clinical Support [facility] [address] [place] [address] Discharge Disposition: Discharged to home or Selfcare 04/29/2025 1:00 PM CDT [facility] 1 [place] [address] Daquan Nunez MD [address] [place] [address] 05/06/2025 1:00 PM CDT [facility] 1 [place] [address] Daquan Nunez MD [address] [place] [address] documented as of this encounter Procedures Procedure [...] WITH AUTO DIFFERENTIAL (11/26/2024 11:35 AM CDT) [facility] WBC 3.63(L) 4.00 - 12.00 10(3)/mcL 11/26/2024 12:54 PM CDT [facility] RBC 3.59(L) 3.80 - 5.30 10(6)/mcL 11/26/2024 12:54 PM CDT [facility] HEMOGLOBIN (HGB) 10.0(L) 12.0 - 15.8 g/dL 11/26/2024 12:54 PM CDT [facility] HEMATOCRIT (HCT) 31.7(L) 36.0 - 47.0 % 11/26/2024 12:54 PM CDT [facility] MCV 88.3 82.0 - 96.0 fL 11/26/2024 12:54 PM CDT [facility] MCH 27.9 26.0 - 34.0 pg 11/26/2024 12:54 PM CDT [facility] MCHC 31.5 31.0 - 36.0 g/dL 11/26/2024 12:54 PM CDT [facility] PLATELET COUNT 167 140 - 440 10(3)/mcL 11/26/2024 12:54 PM CDT [facility] RDW 16.5(H) 11.8 - 15.5 % 11/26/2024 12:54 PM CDT [facility] MPV 8.9(L) 9.7 - 12.4 fL 11/26/2024 12:54 PM CDT [facility] NEUTROPHILS 61.4 47.0 - 73.0 % 11/26/2024 12:54 PM CDT [facility] LYMPHOCYTES 27.3 18.0 - 42.0 % 11/26/2024 12:54 PM CDT [facility] MONOCYTES 9.6 4.0 - 12.0 % 11/26/2024 12:54 PM CDT [facility] EOSINOPHILS 1.1 0.0 - 5.0 % 11/26/2024 12:54 PM CDT [facility] BASOPHILS 0.6 0.0 - 1.0 % 11/26/2024 12:54 PM CDT [facility] ABSOLUTE NEUTROPHILS 2.23 1.60 - 7.70 10(3)/mcL 11/26/2024 12:54 PM CDT [facility] ABSOLUTE LYMPHOCYTES 0.99(L) 1.30 - 3.20 10(3)/mcL 11/26/2024 12:54 PM CDT [facility] ABSOLUTE MONOCYTES 0.35 0.20 - 1.00 10(3)/mcL 11/26/2024 12:54 PM CDT [facility] ABSOLUTE EOSINOPHIL 0.04 0.00 - 0.40 10(3)/mcL 11/26/2024 12:54 PM CDT [facility] ABSOLUTE BASOPHILS 0.02 0.00 - 0.10 10(3)/mcL 11/26/2024 12:54 PM CDT [facility] NRBC PER 100 WBC 0 11/27/19 12:54 PM CDT [facility] Blood No Phlebotomy Charged / Unknown 11/26/2024 11:35 AM CDT 11/26/2024 12:48 PM CDT us Jesse Wheeler MD HEMATOLOGY ORDERABLES Fi nal Result [facility] [address] [place] [address] * (ABNORMAL) CMP (COMPREHENSIVE METABOLIC PANEL) (11/26/2024 11:35 AM CDT) SODIUM 138 136 - 145 mmol/L 11/26/2024 1:15 PM CDT [facility] POTASSIUM 4.1 3.5 - 5.1 mmol/L 11/26/2024 1:15 PM CDT [facility] CHLORIDE 107 98 - 107 mmol/L 11/26/2024 1:15 PM CDT [facility] CO2, VENOUS 27 22 - 30 mmol/L 11/26/2024 1:15 PM CDT [facility] ANION GAP 8.1 <18.0 mmol/L 11/26/2024 1:15 PM CDT [facility] GLUCOSE 119(H) 70 - 99 mg/dL 11/26/2024 1:15 PM CDT [facility] BUN 12 10 - 20 mg/dL 11/26/2024 1:15 PM CDT [facility] CREATININE, BLOOD 0.64 0.60 - 1.00 mg/dL 11/26/2024 1:15 PM T [facility] BUN/CREATININE RATIO 19 12 - 20 ratio 11/26/2024 1:15 PM [facility] TOTAL PROTEIN 8.7(H) 6.0 - 8.0 g/dL 11/26/2024 1:15 PM T [facility] ALBUMIN 2.5(L) 3.5 - 5.0 g/dL 11/26/2024 1:15 PM [facility] A/G RATIO 0.4(L) 1.0 - 2.2 11/26/2024 1:15 PM [facility] CALCIUM 8.2(L) 8.7 - 10.5 mg/dL 11/26/2024 1:15 PM [facility] T BILI 0.5 0.2 - 1.2 mg/dL 11/26/2024 1:15 PM [facility] SGOT (AST) 42 <43 U/L 11/26/2024 1:15 PM [facility] SGPT (ALT) 13 <56 U/L 11/26/2024 1:15 PM [facility] ALKALINE PHOSPHATASE 169(H) 40 - 150 U/L 11/26/2024 1:15 PM [facility] GFR, ESTIMATED >60 >=60 11/26/2024 1:15 PM [facility] Comment: Creatinine Clearance is the preferred criteria for selecting drug dose adjustments in renally impaired patients. The GFR is provided as additional pertinent clinical information. GFR is reported in mL/min/1.73 sq m. Calculation based on the Chronic Kidney Disease Epidemiology Collaboration (CKD- EPI) equation refit without adjustment for race. GFR, EST. >60 >=60 025 1:15 PM [facility] GFR, EST. NONAFRICAN >60 >=60 11/26/2024 1:15 PM [facility] Blood No Phlebotomy Charged / Unknown 11/26/2024 11:35 AM CDT 11/26/2024 12:48 PM CDT Jesse Wheeler MD CHEMISTRY ORDERABLES Fin al Result [facility] [address] [place] [address] documented in this encounter Visit Diagnoses Diagnosis Local infection of the skin and subcutaneous tissue, unspecified documented in this encounter Additional Health Concerns Infection Onset Date Last Indicated Resolved Time MRSA 11/15/2024 03/19/2025 documented as of this encounter Care Teams Blocking Machine Operator Relationship Specialty Start Date End Date Nayana Garber PAC [address] [place] [id number] PCP - General Advanced Practice Nurse 08/17/24 documented as of this encounter
--- OUTSIDE RECORDS SUMMARY | 2025-04-12 14:48 | XMS_ITS | Encounter Summary ---
Author Organization [facility] Health Address [address] [place] [address] Care Team Providers Care Bowling Ball Mold Assembler Name Role Phone Unavailable Primary Care Provider Unavailabl e Encounter Details Date Type Department Care Team (Late st Contact Info) Description 12/10/2023 Ophth Exam [facility] [address] [place] [address] Ho Anthony MD [address] [facility] [place] [address] Social History Tobacco Use Types [...] medical care, and heating? Somewhat hard 12/11/2023 [facility] [place] of Occupat ional Health - Occupational Stress [...] slept in a fdc (including now)? No 12/11/2023 Comments Unknown Sex [...] one occasion? Never 12/10/2023 7:31 PM Roshan Rosario RN * Audit-C Score Answer Date of [...]
--- OUTSIDE RECORDS SUMMARY | 2025-04-12 14:48 | XMS_ITS | Clinical Summary ---
Author Organization [facility] Address [address] [place] [address] Care Team Providers Care Test Case Developer Name Role Phone Unavailable Primary Care Provider Unavailabl e Source Comments [facility],non-owned Affiliates and Associated Physician Practices is amultiple site organization consisting of ambulatory clinics and hospital sitesin [place], [place], [place] and [place]. This disclosure is being madepursuant to the Care Everywhere program and may not contain all information available regarding this patient. Last updated 18.[facility] Allergies Active Allergy Reactions Criticality Noted Date [...] medical care, and heating? Somewhat hard 12/17/2023 [facility] of Occupat ional Health - Occupational Stress [...] slept in a correction (including now)? No 12/17/2023 Comments Unknown Sex [...] SCREENING 1967 LIPID TESTING 1967 MAMMOGRAM 1967 HIV SCREENING 1982 HEPATITIS C SCREENING 02/26/1985 HEPATITIS B VACCINE (1 of 3 - 19+ 3-dose series) 1986 PNEUMOCOCCAL VACCINE 50+ (1 of 2 - PCV) 1986 PAP SMEAR 1988 ZOSTER VACCINE (1 of 2) 2017 COVID-19 VACCINE ( - season) 2024 08/17/2022, 04/07/2022, 03/14/2022 DEPRESSION SCREENING 08/13/2024 MEDICARE AWV CALENDAR YEAR 2024 INFLUENZA VACCINE (#1) 2025 3, 07/24/2017, 05/25/2016 SCREENING FOR DIABETES 12/17/2026 4, 12/18/2023, 12/18/2023, [...] - 115 mg/dL 12/18/2023 12:11 AM CDT [facility] Specimen Type Cap Fingerstick 2023 12:11 AM CDT [facility] Blood BLOOD SPECIMEN / Unknown 12/18/2023 12:10 AM CDT 12/18/2023 12:11 AM CDT Ho Parada MD LAB - POINT OF CARE ORDERABLES Final Result [facility] [address] [place] [address], [facility] [phone] from Last 3 Months or Most Recently Relevant to Health Maintenance Additional Health Concerns Infection Onset Date Last Indicated MRSA Hx 12/17/2023 12/17/2023 Insurance [place]ICAID - [place] [facility] MANAGED MEDICARE ADV [facility] THIRD DEMOCRAT LIABILITY [place]ICAID - [place] [facility] MANAGED MEDICARE [facility] MANAGED MEDICARE ADV [place]ID - [place] Advance Directives * Full Code (Latest Code Status on File) Date Activated Date Inactivated Comments 12/14/2023 10:20 PM 12/18/2023 5:17 PM * Full Code Date Activated Date Inactivated Comments 12/10/2023 10:01 PM 12/14/2023 8:07 PM
--- OUTSIDE RECORDS SUMMARY | 2025-04-12 14:48 | XMS_ITS | Encounter Summary ---
Author Organization [facility] Address [address] [place] [address] Phone Care Team Providers Care Red Hat Engineer Name Role Phone Nayana Garber PAC Primary Care Provider + Encounter Details Date Type Department Care Team (Late st Contact Info) Description 12/01/2024 [facility] [address] [place] [address] [place] [address] [place] [address] Local infection of the skin and subcutaneous tissue, unspecified Social History Tobacco Use Types Packs/Day Years Used Date Smoking Tobacco: Unknown [facility] Utilities Answer Date Recorded In the past 12 months has [employer] electric, gas, oil, or water company threatened [...] declined 11/15/2024 How often do you attend mormonism or adventism serv ices? Patient declined 11/15/2024 Do you [...] medical care, and heating? Patient declined 11/15/2024 [facility] of Occupat ional Health - [...] time in the past 12 m [facility], were you homeless or living in a long-term (including now)? Patient declined 11/15/2024 Comments Unknown Sex and Gender Information Value Date Recorded Sex Assigned at Not on file Legal Sex Female 11:42 AM CDT Gender Identity Not on file Sexual Orientation Not on file documented as of this encounter Plan of Treatment Upcoming Encounters Date Type Department Care Team (Late st Contact Info) Description 04/15/2025 1:00 PM CDT Office Visit [facility] 1 [place] [address] Daquan Nunez MD #[address] [place] [address] Discharge Disposition: Discharged to home or Selfcare 04/22/2025 1:00 PM CDT Office Visit [facility] 1 [place] [address] Daquan Nunez MD [address] [place] [address] 04/28/2025 3:20 PM CDT Office Visit [facility] Services [address] [place] [address] Serjio Santoro MD [address] [place] [address] Discharge Disposition: Discharged to home or Selfcare 04/28/2025 4:00 PM CDT Lab [facility] [address] [place] [address] Discharge Disposition: Discharged to home or Selfcare 04/29/2025 1:00 PM CDT Clinical Support [facility] [address] [place] [address] Discharge Disposition: Discharged to home or Selfcare 04/29/2025 1:00 PM CDT [facility] 1 [place] [address] Daquan Nunez MD #[address] [place] [address] 05/06/2025 1:00 PM CDT [facility] 1 [place] [address] Daquan Nunez MD [address] [place] [address] documented as of this encounter Procedures Procedure [...] - 12.00 10(3)/mcL 12/01/2024 12:54 PM CDT [facility] RBC 3.75(L) 3.80 - 5.30 10(6)/mcL 12/01/2024 12:54 PM CDT [facility] HEMOGLOBIN (HGB) 10.5(L) 12.0 - 15.8 g/dL 12/01/2024 12:54 PM CDT [facility] HEMATOCRIT (HCT) 33.3(L) 36.0 - 47.0 % 12/01/2024 12:54 PM CDT [facility] MCV 88.8 82.0 - 96.0 fL 12/01/2024 12:54 PM CDT [facility] MCH 28.0 26.0 - 34.0 pg 12/01/2024 12:54 PM CDT [facility] MCHC 31.5 31.0 - 36.0 g/dL 12/01/2024 12:54 PM CDT [facility] PLATELET COUNT 140 140 - 440 10(3)/mcL 12/01/2024 12:54 PM CDT [facility] RDW 16.6(H) 11.8 - 15.5 % 12/01/2024 12:54 PM CDT [facility] MPV 9.3(L) 9.7 - 12.4 fL 12/01/2024 12:54 PM CDT [facility] NEUTROPHILS 64.9 47.0 - 73.0 % 12/01/2024 12:54 PM CDT [facility] LYMPHOCYTES 20.5 18.0 - 42.0 % 12/01/2024 12:54 PM CDT [facility] MONOCYTES 11.8 4.0 - 12.0 % 12/01/2024 12:54 PM CDT [facility] EOSINOPHILS 2.1 0.0 - 5.0 % 12/01/2024 12:54 PM CDT [facility] BASOPHILS 0.7 0.0 - 1.0 % 12/01/2024 12:54 PM CDT [facility] ABSOLUTE NEUTROPHILS 2.75 1.60 - 7.70 10(3)/mcL 12/01/2024 12:54 PM CDT [facility] ABSOLUTE LYMPHOCYTES 0.87(L) 1.30 - 3.20 10(3)/mcL 12/01/2024 12:54 PM CDT [facility] ABSOLUTE MONOCYTES 0.50 0.20 - 1.00 10(3)/mcL 12/01/2024 12:54 PM CDT [facility] ABSOLUTE EOSINOPHIL 0.09 0.00 - 0.40 10(3)/mcL 12/01/2024 12:54 PM CDT [facility] ABSOLUTE BASOPHILS 0.03 0.00 - 0.10 10(3)/mcL 12/01/2024 12:54 PM CDT [facility] NRBC PER 100 WBC 0 12/02/19 12:54 PM CDT [facility] Blood No Phlebotomy Charged / Unknown 12/01/2024 11:40 AM CDT 12/01/2024 12:47 PM CDT us Jesse Wheeler MD HEMATOLOGY ORDERABLES Fi nal Result [facility] #[address] [place] [address] * (ABNORMAL) CMP (COMPREHENSIVE METABOLIC PANEL) (12/01/2024 11:40 AM CDT) SODIUM 139 136 - 145 mmol/L 12/01/2024 1:16 PM CDT [facility] POTASSIUM 3.9 3.5 - 5.1 mmol/L 12/01/2024 1:16 PM CDT [facility] CHLORIDE 109(H) 98 - 107 mmol/L 12/01/2024 1:16 PM CDT [facility] CO2, VENOUS 25 22 - 30 mmol/L 12/01/2024 1:16 PM CDT [facility] ANION GAP 8.9 <18.0 mmol/L 12/01/2024 1:16 PM CDT [facility] GLUCOSE 143(H) 70 - 99 mg/dL 12/01/2024 1:16 PM CDT [facility] BUN 10 10 - 20 mg/dL 12/01/2024 1:16 PM CDT [facility] CREATININE, BLOOD 0.70 0.60 - 1.00 mg/dL 12/01/2024 1:16 PM [facility] BUN/CREATININE RATIO 14 12 - 20 ratio 12/01/2024 1:16 PM [facility] TOTAL PROTEIN 9.2(H) 6.0 - 8.0 g/dL 12/01/2024 1:16 PM T [facility] ALBUMIN 2.8(L) 3.5 - 5.0 g/dL 12/01/2024 1:16 PM [facility] A/G RATIO 0.4(L) 1.0 - 2.2 12/01/2024 1:16 PM [facility] CALCIUM 8.1(L) 8.7 - 10.5 mg/dL 12/01/2024 1:16 PM [facility] T BILI 0.6 0.2 - 1.2 mg/dL 12/01/2024 1:16 PM [facility] SGOT (AST) 48(H) <43 U/L 12/01/2024 1:16 PM [facility] SGPT (ALT) 12 <56 U/L 12/01/2024 1:16 PM [facility] ALKALINE PHOSPHATASE 180(H) 40 - 150 U/L 12/01/2024 1:16 PM [facility] GFR, ESTIMATED >60 >=60 12/01/2024 1:16 PM [facility] Comment: Creatinine Clearance is the preferred criteria for selecting drug dose adjustments in renally impaired patients. The GFR is provided as additional pertinent clinical information. GFR is reported in mL/min/1.73 sq m. Calculation based on the Chronic Kidney Disease Epidemiology Collaboration (CKD- EPI) equation refit without adjustment for race. GFR, EST. >60 >=60 025 1:16 PM [facility] GFR, EST. NONAFRICAN >60 >=60 12/01/2024 1:16 PM [facility] Blood No Phlebotomy Charged / Unknown 12/01/2024 11:40 AM CDT 12/01/2024 12:47 PM CDT Jesse Wheeler MD CHEMISTRY ORDERABLES Fin al Result [facility] [address] [place] [address] documented in this encounter Visit Diagnoses Diagnosis Local infection of the skin and subcutaneous tissue, unspecified documented in this encounter Additional Health Concerns Infection Onset Date Last Indicated Resolved Time MRSA 11/15/2024 03/19/2025 documented as of this encounter Care Teams Red Hat Engineer Relationship Specialty Start Date End Date Nayana Garber PAC [address] [place] [id number] PCP - General Advanced Practice Nurse 08/17/24 documented as of this encounter
--- OUTSIDE RECORDS SUMMARY | 2025-04-12 14:48 | XMS_ITS | Encounter Summary ---
Author Organization [facility] Address [address] [place] [address] Phone Care Team Providers Care Civil Laboratory Technician Name Role Phone Nayana Garber PAC Primary Care Provider + Encounter Details Date Type Department Care Team (Late st Contact Info) Description 12/15/2024 Lab Requisition [facility] [address] [place] [address] [place] [address] [place] [address] Local infection of the skin and subcutaneous tissue, unspecified Social History Tobacco Use Types Packs/Day Years Used Date Smoking Tobacco: Unknown [facility] Utilities Answer Date Recorded In the past 12 months has [employer] electric, gas, oil, or water company threatened [...] declined 11/15/2024 How often do you attend mormon or tenriism serv ices? Patient declined 11/15/2024 Do you [...] medical care, and heating? Patient declined 11/15/2024 [facility] [...] in the past 12 [address] [facility], were you homeless or living in a long term (including now)? Patient declined 11/15/2024 Comments Unknown Sex and Gender Information Value Date Recorded Sex Assigned at Not on file Legal Sex Female 11:42 AM CDT Gender Identity Not on file Sexual Orientation Not on file documented as of this encounter Plan of Treatment Upcoming Encounters Date Type Department Care Team (Late st Contact Info) Description 04/15/2025 1:00 PM CDT Office Visit [facility] [address] [place] [address] Daquan Nunez MD [address] [place] [address] Discharge Disposition: Discharged to home or Selfcare 04/22/2025 1:00 PM CDT Office Visit [facility] [address] [place] [address] Daqaun Nunez MD [address] [place] [address] 04/28/2025 3:20 PM CDT Office Visit [facility] [address] [place] [address] Serjio Santoro MD [address] [place] [address] Discharge Disposition: Discharged to home or Selfcare 04/28/2025 4:00 PM CDT Lab [facility] [address] [place] [phone] Discharge Disposition: Discharged to home or Selfcare 04/29/2025 1:00 PM CDT Clinical Support [facility] [address] [place] [address] Discharge Disposition: Discharged to home or Selfcare 04/29/2025 1:00 PM CDT [facility] [address] [place] [address] Daquan Nunez MD [address] [place] [address] 05/06/2025 1:00 PM CDT [facility] [address] [place] [address] Daquan Nunez MD [address] [place] [address] documented as of this encounter Procedures Procedure [...] - 12.00 10(3)/mcL 12/15/2024 2:20 PM CDT [facility] RBC 4.41 3.80 - 5.30 10(6)/mcL 12/15/2024 2:20 PM CDT [facility] HEMOGLOBIN (HGB) 12.1 12.0 - 15.8 g/dL 12/15/2024 2:20 PM CDT [facility] HEMATOCRIT (HCT) 38.2 36.0 - 47.0 % 12/15/2024 2:20 PM CDT [facility] MCV 86.6 82.0 - 96.0 fL 12/15/2024 2:20 PM CDT [facility] MCH 27.4 26.0 - 34.0 pg 12/15/2024 2:20 PM CDT [facility] MCHC 31.7 31.0 - 36.0 g/dL 12/15/2024 2:20 PM CDT [facility] PLATELET COUNT 130(L) 140 - 440 10(3)/mcL 12/15/2024 2:20 PM CDT [facility] RDW 15.9(H) 11.8 - 15.5 % 12/15/2024 2:20 PM CDT [facility] MPV 9.3(L) 9.7 - 12.4 fL 12/15/2024 2:20 PM CDT [facility] NEUTROPHILS 55.2 47.0 - 73.0 % 12/15/2024 2:20 PM CDT [facility] LYMPHOCYTES 28.0 18.0 - 42.0 % 12/15/2024 2:20 PM CDT [facility] MONOCYTES 14.1(H) 4.0 - 12.0 % 12/15/2024 2:20 PM CDT [facility] EOSINOPHILS 2.2 0.0 - 5.0 % 12/15/2024 2:20 PM CDT [facility] BASOPHILS 0.5 0.0 - 1.0 % 12/15/2024 2:20 PM CDT [facility] ABSOLUTE NEUTROPHILS 2.31 1.60 - 7.70 10(3)/mcL 12/15/2024 2:20 PM CDT [facility] ABSOLUTE LYMPHOCYTES 1.17(L) 1.30 - 3.20 10(3)/mcL 12/15/2024 2:20 PM CDT [facility] ABSOLUTE MONOCYTES 0.59 0.20 - 1.00 10(3)/mcL 12/15/2024 2:20 PM CDT [facility] ABSOLUTE EOSINOPHIL 0.09 0.00 - 0.40 10(3)/mcL 12/15/2024 2:20 PM CDT [facility] ABSOLUTE BASOPHILS 0.02 0.00 - 0.10 10(3)/mcL 12/15/2024 2:20 PM CDT [facility] NRBC PER 100 WBC 0 12/16/19 2:20 PM CDT [facility] Blood No Phlebotomy Charged / Unknown 12/15/2024 1:03 PM CDT 12/15/2024 2:09 PM CDT Jesse Wheeler MD HEMATOLOGY ORDERABLES Fi nal Result [facility] [address] [place] [address] * (ABNORMAL) CMP (COMPREHENSIVE METABOLIC PANEL) (12/15/2024 1:03 PM CDT) SODIUM 137 136 - 145 mmol/L 12/15/2024 2:30 PM CDT [facility] POTASSIUM 3.6 3.5 - 5.1 mmol/L 12/15/2024 2:30 PM CDT [facility] CHLORIDE 104 98 - 107 mmol/L 12/15/2024 2:30 PM CDT [facility] CO2, VENOUS 27 22 - 30 mmol/L 12/15/2024 2:30 PM CDT [facility] ANION GAP 9.6 <18.0 mmol/L 12/15/2024 2:30 PM CDT [facility] GLUCOSE 146(H) 70 - 99 mg/dL 12/15/2024 2:30 PM CDT [facility] BUN 16 10 - 20 mg/dL 12/15/2024 2:30 PM CDT [facility] CREATININE, BLOOD 0.67 0.60 - 1.00 mg/dL 12/15/2024 2:30 PM CDT [facility] BUN/CREATININE RATIO 24(H) 12 - 20 ratio 12/15/2024 2:30 PM CDT [facility] TOTAL PROTEIN 9.4(H) 6.0 - 8.0 g/dL 12/15/2024 2:30 PM CDT [facility] ALBUMIN 3.0(L) 3.5 - 5.0 g/dL 12/15/2024 2:30 PM CDT [facility] A/G RATIO 0.5(L) 1.0 - 2.2 12/15/2024 2:30 PM CDT [facility] CALCIUM 8.6(L) 8.7 - 10.5 mg/dL 12/15/2024 2:30 PM CDT [facility] T BILI 0.5 0.2 - 1.2 mg/dL 12/15/2024 2:30 PM T [facility] SGOT (AST) 57(H) <43 U/L 12/15/2024 2:30 PM T [facility] SGPT (ALT) 10 <56 U/L 12/15/2024 2:30 PM [facility] ALKALINE PHOSPHATASE 175(H) 40 - 150 U/L 12/15/2024 2:30 PM T [facility] GFR, ESTIMATED >60 >=60 12/15/2024 2:30 PM T [facility] Comment: Creatinine Clearance is the preferred criteria for selecting drug dose adjustments in renally impaired patients. The GFR is provided as additional pertinent clinical information. GFR is reported in mL/min/1.73 sq m. Calculation based on the Chronic Kidney Disease Epidemiology Collaboration (CKD- EPI) equation refit without adjustment for race. GFR, EST. >60 >=60 025 2:30 PM CDT [facility] GFR, EST. NONAFRICAN >60 >=60 12/15/2024 2:30 PM [facility] Blood No Phlebotomy Charged / Unknown 12/15/2024 1:03 PM CDT 12/15/2024 2:09 PM CDT Jesse Wheeler MD CHEMISTRY ORDERABLES Fin al Result [facility] #[address] [place] [address] documented in this encounter Visit Diagnoses Diagnosis Local infection of the skin and subcutaneous tissue, unspecified documented in this encounter Additional Health Concerns Infection Onset Date Last Indicated Resolved Time MRSA 11/15/2024 03/19/2025 documented as of this encounter Care Teams Civil Laboratory Technician Relationship Specialty Start Date End Date Nayana Garber PAC [address] [place] [id number] PCP - General Advanced Practice Nurse 08/17/24 documented as of this encounter
--- OUTSIDE RECORDS SUMMARY | 2025-04-12 14:48 | XMS_ITS | Encounter Summary ---
Author Organization [facility] Address [address] [place] [address] Phone Care Team Providers Care Nurse Paralegal Name Role Phone Nayana Garber PAC Primary Care Provider + Encounter Details Date Type Department Care Team (Late st Contact Info) Description 12/08/2024 Lab [facility]quisition [facility] [address] [place] [address] [place] [address] [place] [address] Local infection of the skin and subcutaneous tissue, unspecified Social History Tobacco Use Types Packs/Day Years Used Date Smoking Tobacco: Unknown [facility] Utilities Answer Date Recorded In the past 12 months has [employer] electric, gas, oil, or water company threatened [...] declined 11/15/2024 How often do you attend advent or jewish serv ices? Patient declined 11/15/2024 Do you [...] medical care, and heating? Patient declined 11/15/2024 [facility] - [...] living in a halfway (including now)? Patient declined 11/15/2024 Comments Unknown Sex and Gender Information Value Date Recorded Sex Assigned at Not on file Legal Sex Female 11:42 AM CDT Gender Identity Not on file Sexual Orientation Not on file documented as of this encounter Plan of Treatment Upcoming Encounters Date Type Department Care Team (Late st Contact Info) Description 04/15/2025 1:00 PM CDT Office Visit [facility] [address] [place] [address] Daquan Nunez MD [address] [place] [address] Discharge Disposition: Discharged to home or Selfcare 04/22/2025 1:00 PM CDT Office Visit [facility] [address] [place] [address] Daquan Nunez MD [address] [place] [address] 04/28/2025 3:20 PM CDT Office Visit [facility] [address] [place] [address] Serjio Santoro MD [address] [place] [address] Discharge Disposition: Discharged to home or Selfcare 04/28/2025 4:[address] [facility] [address] [place] [phone] Discharge Disposition: Discharged to home or Selfcare 04/29/2025 1:00 PM CDT Clinical Support [facility] [address] [place] [address] Discharge Disposition: Discharged to home or Selfcare 04/29/2025 1:00 PM CDT [facility] [address] [place] [address] Daquan Nunez MD [address] [place] [address] 05/06/2025 1:00 PM CDT [facility] [address] [place] [address] Daquan Nunez MD [address] [place] [address] documented as of this encounter Procedures Procedure [...] - 12.00 10(3)/mcL 12/08/2024 11:44 AM CDT [facility] RBC 4.15 3.80 - 5.30 10(6)/mcL 12/08/2024 11:44 AM CDT [facility] HEMOGLOBIN (HGB) 11.5(L) 12.0 - 15.8 g/dL 12/08/2024 11:44 AM CDT [facility] HEMATOCRIT (HCT) 36.1 36.0 - 47.0 % 12/08/2024 11:44 AM CDT [facility] MCV 87.0 82.0 - 96.0 fL 12/08/2024 11:44 AM CDT [facility] MCH 27.7 26.0 - 34.0 pg 12/08/2024 11:44 AM CDT [facility] MCHC 31.9 31.0 - 36.0 g/dL 12/08/2024 11:44 AM CDT [facility] PLATELET COUNT 132(L) 140 - 440 10(3)/mcL 12/08/2024 11:44 AM CDT [facility] RDW 16.4(H) 11.8 - 15.5 % 12/08/2024 11:44 AM CDT [facility] MPV 9.1(L) 9.7 - 12.4 fL 12/08/2024 11:44 AM CDT [facility] NEUTROPHILS 54.5 47.0 - 73.0 % 12/08/2024 11:44 AM CDT [facility] LYMPHOCYTES 30.2 18.0 - 42.0 % 12/08/2024 11:44 AM CDT [facility] MONOCYTES 12.6(H) 4.0 - 12.0 % 12/08/2024 11:44 AM CDT [facility] EOSINOPHILS 2.0 0.0 - 5.0 % 12/08/2024 11:44 AM CDT [facility] BASOPHILS 0.7 0.0 - 1.0 % 12/08/2024 11:44 AM CDT [facility] ABSOLUTE NEUTROPHILS 2.20 1.60 - 7.70 10(3)/mcL 12/08/2024 11:44 AM CDT [facility] ABSOLUTE LYMPHOCYTES 1.22(L) 1.30 - 3.20 10(3)/mcL 12/08/2024 11:44 AM CDT [facility] ABSOLUTE MONOCYTES 0.51 0.20 - 1.00 10(3)/mcL 12/08/2024 11:44 AM CDT [facility] ABSOLUTE EOSINOPHIL 0.08 0.00 - 0.40 10(3)/mcL 12/08/2024 11:44 AM CDT [facility] ABSOLUTE BASOPHILS 0.03 0.00 - 0.10 10(3)/mcL 12/08/2024 11:44 AM CDT [facility] NRBC PER 100 WBC 0 12/09/19 11:44 AM CDT [facility] Blood No Phlebotomy Charged / Unknown 12/08/2024 10:50 AM CDT 12/08/2024 11:41 AM CDT us Jesse Wheeler MD HEMATOLOGY ORDERABLES Fi nal Result [facility] #[address] [place] [address] * (ABNORMAL) CMP (COMPREHENSIVE METABOLIC PANEL) (12/08/2024 10:50 AM CDT) SODIUM 139 136 - 145 mmol/L 12/08/2024 12:06 PM CDT [facility] POTASSIUM 3.8 3.5 - 5.1 mmol/L 12/08/2024 12:06 PM CDT [facility] CHLORIDE 110(H) 98 - 107 mmol/L 12/08/2024 12:06 PM CDT [facility] CO2, VENOUS 23 22 - 30 mmol/L 12/08/2024 12:06 PM CDT [facility] ANION GAP 9.8 <18.0 mmol/L 12/08/2024 12:06 PM CDT [facility] GLUCOSE 70 70 - 99 mg/dL 12/08/2024 12:06 PM CDT [facility] BUN 11 10 - 20 mg/dL 12/08/2024 12:06 PM CDT [facility] CREATININE, BLOOD 0.66 0.60 - 1.00 mg/dL 12/08/2024 12:06 PM [facility] BUN/CREATININE RATIO 17 12 - 20 ratio 12/08/2024 12:06 PM [facility] TOTAL PROTEIN 9.4(H) 6.0 - 8.0 g/dL 12/08/2024 12:06 PM [facility] ALBUMIN 2.8(L) 3.5 - 5.0 g/dL 12/08/2024 12:06 PM [facility] A/G RATIO 0.4(L) 1.0 - 2.2 12/08/2024 12:06 PM [facility] CALCIUM 8.3(L) 8.7 - 10.5 mg/dL 12/08/2024 12:06 PM [facility] T BILI 0.7 0.2 - 1.2 mg/dL 12/08/2024 12:06 PM [facility] SGOT (AST) 52(H) <43 U/L 12/08/2024 12:06 PM [facility] SGPT (ALT) 8 <56 U/L 12/08/2024 12:06 PM [facility] ALKALINE PHOSPHATASE 167(H) 40 - 150 U/L 12/08/2024 12:06 PM [facility] GFR, ESTIMATED >60 >=60 12/08/2024 12:06 PM [facility] Comment: Creatinine Clearance is the preferred criteria for selecting drug dose adjustments in renally impaired patients. The GFR is provided as additional pertinent clinical information. GFR is reported in mL/min/1.73 sq m. Calculation based on the Chronic Kidney Disease Epidemiology Collaboration (CKD- EPI) equation refit without adjustment for race. GFR, EST. >60 >=60 025 12:06 PM [facility] GFR, EST. 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
--- OUTSIDE RECORDS SUMMARY | 2025-04-12 14:48 | XMS_ITS | Clinical Summary ---
Author Organization [facility] Address [address] [place] [address] Phone Care Team Providers Care Contact Center Professional Name Role Phone Nayana Garber [facility] Primary Care Provider + Allergies Active Allergy Reactions Criticality Noted Date Comments Naproxen Hives Medium 12/07/2023 Vancomycin Itching,Other (see Comments) Low 024 Skin peeling Medications meloxicam (MOBIC) 15 MG Tablet Take 15 mg by mouth nightly. Active pregabalin (LYRICA) 150 MG Capsule Take 150 mg by mouth 2 times daily. 04/08/20 24 Active methocarbamol (ROBAXIN) 500 MG Tablet Take 1,000 mg by mouth 4 times daily. Active insulin glargine (LANTUS) 100 UNIT/ML Solution 12 Units by Subcutaneous route nightly. Active acetaminophen (TYLENOL) 500 MG Tablet Take 1,000 mg by mouth every 6 hours as needed for Mild or more severe pain. 10/29/19 25 Active esomeprazole (NexIUM) 40 MG CAPSULE DELAYED RELEASE Take 1 Capsule by mouth every morning (before breakfast). 30 Capsule 03/11/20 25 Active TURMERIC PO Take by mouth daily. Active ELDERBERRY PO Take by mouth as needed. 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 30 Tablet 2 03/03/20 25 025 Discontinu ed(Med List Clean Up) prochlorperazin e (COMPAZINE) 10 MG TabletIndicatio ns:Hepatocellul ar carcinoma metastatic to lymph nodes of multiple sites (HCC) Take 1 Tablet by mouth every 6 hours as needed for Nausea - 2nd line. 30 Tablet 2 03/03/20 25 025 Discontinu ed(Med List Clean Up) doxycycline monohydrate 100 MG Tablet Take 1 Tablet by mouth 2 times daily for 14 days. 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 02/25/2025 Cirrhosis of liver without ascites 01/28/2025 Encounter for screening for other viral diseases 01/28/2025 Chronic heel ulcer, right, limited to breakdown of skin 01/28/2025 DVT (deep venous thrombosis) 11/21/2024 Liver lesion 11/21/2024 Peripheral vascular disease 11/21/2024 Sepsis 08/19/2024 Foot infection 08/19/2024 Type 2 diabetes mellitus 08/19/2024 Substance abuse 08/19/2024 Type 2 diabetes mellitus wit h diabetic neuropathy, with long-term current use of insulin 03/16/2024 History of traumatic brain injury 01/28/2024 Resolved Problems Problem Noted Date Diagnosed Date Resolved Date Acute infective cystitis 11/15/202406/2025 Encounters Date Type Department Care Team Description 04/08/2025 Travel 04/01/2025 11:00 AM CDT Clinical Support [facility] [address] [place] [address] Serjio Santoro MD 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) (Primary Dx) Discharge Disposition: Discharged to home or Selfcare 04/01/2025 Travel 03/31/2025 2:10 PM CDT Lab [facility] [address] [place] [address] Serjio Santoro MD Liver lesion; Liver mass; 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); Cirrhosis of liver without ascites, unspecified hepatic cirrhosis type (HCC); Metastatic hepatocellular carcinoma to soft tissue (HCC) Discharge Disposition: Discharged to home or Selfcare 03/31/2025 1:40 PM CDT Office Visit [facility] [address] [place] [address] Serjio Santoro MD 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) (Primary Dx); Cirrhosis of liver without ascites, unspecified hepatic cirrhosis type (HCC); Liver cell carcinoma (HCC) Discharge Disposition: Discharged to home or Selfcare 03/31/2025 Travel 03/30/2025 Travel 03/25/2025 1:00 PM CDT Office Visit [facility] [address] [place] [address] Daquan Nunez MD Discharge Disposition: Discharged to home or Selfcare 03/23/2025 Telephone [facility] [address] [place] [address] Daquan Nunez MD 03/23/2025 Travel 03/19/2025 Telephone [facility] [address] [place] [address] Daquan Nunez MD 03/18/2025 11:15 AM CDT Anesthesia Event [facility] Periop [address] [place] [address] Daniel Santana APRN, CRNA 03/18/2025 10:30 AM CDT - 03/18/2025 11:00 AM CDT Surgery [facility] Periop [address] [place] [address] Manuel Lovett MD EGD - ESOPHAGEAL VARICES, SMALL HIATAL HERNIA 03/18/2025 9:20 AM CDT Ancillary Procedure [facility] Main [address] [place] [address] Manuel Lovett MD Discharge Disposition: Discharged to home or Selfcare 03/18/2025 9:02 AM CDT - 03/18/2025 12:24 PM CDT Hospital Encounter [facility] Preop/Pacu II [address] [place] [address] Manuel Lovett MD Esophageal varices in cirrhosis (HCC) Discharge Disposition: Discharged to home or Selfcare 03/18/2025 Travel 03/13/2025 Travel 03/12/2025 Telephone [facility] Gastroenter[facility] [address] [place] [address] Manuel Lovett MD 03/11/2025 11:45 AM CDT Office Visit [facility] [address] [place] [address] Jaki Kim, ASSISTANT PROFESSOR OF MUSIC, OIL BURNER MECHANIC 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) (Primary Dx) Discharge Disposition: Discharged to home or Selfcare 03/11/2025 Telephone [facility] [address] [place] [address] Jaki Kim, ASSISTANT PROFESSOR OF MUSIC, OIL BURNER MECHANIC 03/11/2025 Travel 03/04/2025 11:00 AM CDT Clinical Support [facility] [address] [place] [address] Serjio Santoro MD Liver lesion (Primary Dx); Liver mass; 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); Cirrhosis of liver without ascites, unspecified hepatic cirrhosis type (HCC); Metastatic hepatocellular carcinoma to soft tissue (HCC) Discharge Disposition: Discharged to home or Selfcare 03/04/2025 Travel 02/26/2025 Telephone [facility] Gastroenter[facility] [address] [place] [address] Haley Mathew APRN, OIL BURNER MECHANIC 02/25/2025 2:45 PM CDT [facility] [address] [place] [phone] Daquan Nunez MD Baxley, Brandy M, ASSISTANT PROFESSOR OF MUSIC, OIL BURNER MECHANIC 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) (Primary Dx) Discharge Disposition: Discharged to home or Selfcare 02/25/2025 Travel 02/23/2025 Telephone [facility] [address] [place] [phone] Jaki Kim, ASSISTANT PROFESSOR OF MUSIC, OIL BURNER MECHANIC 02/19/2025 9:15 AM CDT Office [facility] [address] [place] [phone] Serjio Santoro MD Baxley, Brandy M, ASSISTANT PROFESSOR OF MUSIC, OIL BURNER MECHANIC Liver mass (Primary Dx) Discharge Disposition: Discharged to home or Selfcare 02/19/2025 Travel 02/18/2025 1:00 PM CDT Office Visit [facility] [address] [place] [address] Daquan Nunez MD Peripheral vascular disease (HCC) (Primary Dx) Discharge Disposition: Discharged to home or Selfcare 02/18/2025 Travel 02/10/2025 Travel 02/03/2025 8:19 AM CDT - 02/03/2025 11:59 PM CDT Hospital Encounter [facility] [address] [place] [address] Serjio Santoro MD Discharge Disposition: Discharged to home or Selfcare 02/01/2025 Travel 01/28/2025 9:40 AM CDT Office [facility] [address] [place] [phone] Serjio Santoro MD Liver mass (Primary Dx); Cirrhosis of liver without ascites, unspecified hepatic cirrhosis type (HCC); Encounter for screening for other viral diseases; Liver lesion; Chronic heel ulcer, right, limited to breakdown of skin (HCC) Discharge Disposition: Discharged to home or Selfcare 01/28/2025 9:00 AM CDT Clinical Support [facility] [address] [place] [address] Serjio Santoro MD Liver mass; Cirrhosis of liver without ascites, unspecified hepatic cirrhosis type (HCC); Encounter for screening for other viral diseases Discharge Disposition: Discharged to home or Selfcare 01/28/2025 Travel 01/13/2025 Telephone [facility] [address] [place] [address] Serjio Santoro MD from Last 3 Months Family History Medical History Relation Name Comments Cancer Father Lung Cancer Father Pancreatic Cancer Father Heart Disease Maternal Grandfather Diabetes Mother Heart Disease Mother Hypertension Mother Cerebral Anuerysm Paternal Grandfather Diabetes Sister leukemia Sister Relation Name Status Comments Father Maternal Grandfather Mother Paternal Grandfather Sister Social History Tobacco Use Types Packs/Day Years Used Date Smoking Tobacco: Former Cigarettes 2019 Smokeless Tobacco: Never Tobacco Cessation:Counseling Given: Not Answered Alcohol Use Standard Drinks/Week Comments Not Currently 0 (1 standard drink = 0.6 oz pur e alcohol) [facility] Utilities Answer Date Recorded In the past 12 months has [employer], [employer], or water [employer] threatened to shut off services in your home? Patient declined 11/15/2024 Social Connection and Isolation Panel Answer Date Recorded In a typical week, how many times do you talk on the phone with family, friends, or neighbors? Patient declined 11/15/2024 How often do you get togethe r with friends or relatives? Patient declined 11/15/2024 How often do you attend moravian or druze serv ices? Patient declined 11/15/2024 Do you belong to any clubs o r organizations such as moravian groups, unions, fraternal or athletic groups, or [...] medical care, and heating? Patient declined 11/15/2024 [facility] [...] any time in the past 12 m [facility], were you homeless or living in a senior living (including now)? Patient declined 11/15/2024 Comments Unknown Sex and Gender Information Value Date Recorded Sex Assigned at Not on file Legal Sex Female 11:42 AM CDT Gender Identity Not on file Sexual Orientation Not on file Last Filed Vital Signs Vital Sign Reading Time Taken Comments Blood Pressure 143/76 04/01/2025 11:08 AM CDT Pulse 87 04/01/2025 11:08 AM CDT Temperature 36.1 C (97 F) 04/01/2025 11:08 AM CDT Respiratory Rate 16 04/01/2025 11:0 8 AM CDT Oxygen Saturation 98% 04/01/2025 11: 08 AM CDT Inhaled Oxygen Concentration - - Weight 92.4 kg (203 lb 12.8 oz) 025 11:08 AM CDT Height 177.8 cm (5' 10) 03/31/2025 2:11 PM CDT Body Mass Index 29.24 03/31/2025 2:11 PM CDT Plan of Treatment Upcoming Encounters Date Type Department Care Team (Late st Contact Info) Description 04/15/2025 1:00 PM CDT Office Visit [facility] [address] [place] [address] Daquan Nunez MD [address] [place] [address] Discharge Disposition: Discharged to home or Selfcare 04/22/2025 1:00 PM CDT Office Visit [facility] [address] [place] [address] Daquan Nunez MD [address] [place] [address] 04/28/2025 3:20 PM CDT Office Visit [facility] [address] [place] [address] Serjio Santoro MD [address] [place] [address] Discharge Disposition: Discharged to home or Selfcare 04/28/2025 4:00 PM CDT Lab [facility] [address] [place] [address] Discharge Disposition: Discharged to home or Selfcare 04/29/2025 1:00 PM CDT Clinical Support [facility] [address] [place] [phone] Discharge Disposition: Discharged to home or Selfcare 04/29/2025 1:00 PM CDT Office Visit [facility] [address] [place] [address] Daquan Nunez MD [address] [place] [address] 05/06/2025 1:00 PM CDT Office Visit [facility] [address] [place] [address] Daquan Nunez MD [address] [place] [address] Health Maintenance Due Date Last Done Comments Diabetes: Eye Exam 1967 Diabetes: Foot Exam 1967 Mammogram 1967 Hepatitis B Immunization (1 of 3 - 19+ 3-dose series) 1986 Zoster Immunization (1 of 2) 1986 Pap Smear 1988 Cervical Cancer Screening (CCS) 1997 HPV/Cotest 1997 Cologuard 2012 Colonoscopy 2012 Colorectal Cancer Screening 2012 Immunochemical Fecal Occult Blood 2012 SARS-COV-2 Immunization ( season) 2024 08/17/2022, 04/07/2022, 03/14/2022 Influenza Immunization (#1) 04/13/202507/13, 08/17/2022, 07/24/2017, Additional history exists Diabetes: Hemoglobin A1c 05/17/2025 025, 08/16/2024, 03/11/2024, Additional history exists Diabetes: Nephropathy Screening 03/31/2026 03/31/2025, 03/04/2025, 01/28/2025, Additional history exists Respiratory Syncytial Virus (RSV) Immunization (Adult) (1 - 1-dose 75+ series) 2042 TdaP Immunization Completed 12/10/2023 Pneumococcal Immunization (50+ years) Completed 07/30/2024 Hepatitis C Virus (HCV) Screening Completed 01/28/2025, 01/28/2025 Human Papillomavirus (HPV) Immunization Aged Out No longer eligible based on patient's age to complete this topic Meningococcal Immunization (ACWY) Aged Out No longer eligible based on patient's age to complete this topic Rotavirus Immunization Aged Out No lo nger eligible based on patient's age to complete this topic Procedures Procedure Name Priority Date/Time Associated Diagnosis Comments CBC WITH AUTO DIFFERENTIAL STAT 03/31 2:30 PM CDT Liver lesion Liver mass 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) Cirrhosis of liver without ascites, unspecified hepatic cirrhosis type (HCC) ALPHA FETOPROTEIN, TUMOR MARKER Routine 03/31/2025 2:30 PM CDT 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) Metastatic hepatocellular carcinoma to soft tissue (HCC) THYROID STIMULATING HORMONE (TSH) STAT 03/31/2025 2:30 PM CDT Liver lesion Liver mass 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) Cirrhosis of liver without ascites, unspecified hepatic cirrhosis type (HCC) Metastatic hepatocellular carcinoma to soft tissue (HCC) CMP (COMPREHENSIVE METABOLIC PANEL) STAT 03/31/2025 2:30 PM CDT Liver lesion Liver mass 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) Cirrhosis of liver without ascites, unspecified hepatic cirrhosis type (HCC) COMPLETE BLOOD COUNT (CBC) WITH DIFF STAT 03/31/2025 2:30 PM CDT Liver lesion Liver mass 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) Cirrhosis of liver without ascites, unspecified hepatic cirrhosis type (HCC) CULTURE, AEROBIC ONLY Routine 03/19/2025 11:34 AM CDT Venous stasis ulcer of other part of left lower leg with fat layer exposed without varicose veins [place] EGD FLEXIBLE TRANSNASAL D X W/COLLJ SPEC BR/WA 03/18/2025 11:12 AM CDT EGD - ESOPHAGEAL VARICES, SMALL HIATAL HERNIA Special Needs DM - Dx HEPATOCELLULAR CARCINOMA METASTATIC TO LYMPH NODES AZ ESOPHAGOGASTRODUODENOSCOP Y TRANSORAL DIAGNOSTIC 03/18/2025 11:12 AM CDT EGD - ESOPHAGEAL VARICES, SMALL HIATAL HERNIA Special Needs DM - Dx HEPATOCELLULAR CARCINOMA METASTATIC TO LYMPH NODES POCT GLUCOSE Routine 03/18/2025 9:42 AM CDT GI LAB IMAGING - EGD Routine 03/18/2025 9:18 AM CDT THYROID STIMULATING HORMONE (TSH) STAT 03/04/2025 11:44 AM CDT Liver lesion Liver mass 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) Cirrhosis of liver without ascites, unspecified hepatic cirrhosis type (HCC) Metastatic hepatocellular carcinoma to soft tissue (HCC) CMP (COMPREHENSIVE METABOLIC PANEL) STAT 03/04/2025 11:44 AM CDT Liver lesion Liver mass 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) Cirrhosis of liver without ascites, unspecified hepatic cirrhosis type (HCC) CBC WITH AUTO DIFFERENTIAL STAT 03/04 11:22 AM CDT Liver lesion Liver mass 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) Cirrhosis of liver without ascites, unspecified hepatic cirrhosis type (HCC) COMPLETE BLOOD COUNT (CBC) WITH DIFF STAT 03/04/2025 11:22 AM CDT Liver lesion Liver mass 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) Cirrhosis of liver without ascites, unspecified hepatic cirrhosis type (HCC) CULTURE, AEROBIC ONLY Routine 02/18/2025 5:17 PM CDT Peripheral vascular disease (HCC) CULTURE, ANAEROBIC Routine 02/18/2025 5:17 PM CDT Peripheral vascular disease (HCC) CULTURE, ANAEROBIC WITH CULTURE, AEROBIC Routine 02/18/2025 5:17 PM CDT Peripheral vascular disease (HCC) MRI ABDOMEN W/WO CONTRAST Routine 2024 10:12 AM CDT Liver lesion POCT CREATININE Routine 02/03/2025 9:05 AM CDT CBC WITH AUTO DIFFERENTIAL Routine 01/28 10:29 AM CDT Liver mass Cirrhosis of liver without ascites, unspecified hepatic cirrhosis type (HCC) HEPATITIS C RNA QUANT PCR VIRAL LOAD Routine 01/28/2025 10:29 AM CDT Liver mass Cirrhosis of liver without ascites, unspecified hepatic cirrhosis type (HCC) HEPATITIS C ANTIBODY Routine 01/28/2025 10:29 AM CDT Liver mass Cirrhosis of liver without ascites, unspecified hepatic cirrhosis type (HCC) HEPATITIS B SURFACE ANTIGEN (HBSAG) Routine 01/28/2025 10:29 AM CDT Liver mass Cirrhosis of liver without ascites, unspecified hepatic cirrhosis type (HCC) Encounter for screening for other viral diseases HEPATITIS B CORE ANTIBODY IGM Routine 10:29 AM CDT Liver mass Cirrhosis of liver without ascites, unspecified hepatic cirrhosis type (HCC) HEPATITIS B SURFACE ANTIBODY (HBSAB) Routine 01/28/2025 10:29 AM CDT Liver mass Cirrhosis of liver without ascites, unspecified hepatic cirrhosis type (HCC) Encounter for screening for other viral diseases ALPHA FETOPROTEIN, TUMOR MARKER Routine 01/28/2025 10:29 AM CDT Liver mass Cirrhosis of liver without ascites, unspecified hepatic cirrhosis type (HCC) COMPLETE BLOOD COUNT (CBC) WITH DIFF Routine 01/28/2025 10:29 AM CDT Liver mass Cirrhosis of liver without ascites, unspecified hepatic cirrhosis type (HCC) CMP (COMPREHENSIVE METABOLIC PANEL) Routine 01/28/2025 10:29 AM CDT Liver mass Cirrhosis of liver without ascites, unspecified hepatic cirrhosis type (HCC) HEMOGLOBIN A1C W/ ESTIMATED GLUCOSE STAT 11/15/2024 5:01 PM CDT from Last 3 Months or Most Recently Relevant to Health Maintenance Results * (ABNORMAL) CBC WITH AUTO DIFFERENTIAL (03/31/2025 2:30 PM CDT) Only the most recent of3 resultswithin the time period is included. WBC 4.77 4.00 - 12.00 10(3)/mcL 03/31/2025 2:57 PM CDT [facility] RBC 4.33 3.80 - 5.30 10(6)/mcL 03/31/2025 2:57 PM CDT [facility] HEMOGLOBIN (HGB) 12.8 12.0 - 15.8 g/dL 03/31/2025 2:57 PM CDT [facility] HEMATOCRIT (HCT) 38.2 36.0 - 47.0 % 03/31/2025 2:57 PM CDT [facility] MCV 88.2 82.0 - 96.0 fL 03/31/2025 2:57 PM CDT [facility] MCH 29.6 26.0 - 34.0 pg 03/31/2025 2:57 PM CDT [facility] MCHC 33.5 31.0 - 36.0 g/dL 03/31/2025 2:57 PM CDT [facility] PLATELET COUNT 116(L) 140 - 440 10(3)/mcL 03/31/2025 2:57 PM CDT [facility] RDW 14.4 11.8 - 15.5 % 03/31/2025 2:57 PM CDT [facility] MPV 9.1(L) 9.7 - 12.4 fL 03/31/2025 2:57 PM CDT [facility] NEUTROPHILS 65.7 47.0 - 73.0 % 03/31/2025 2:57 PM CDT [facility] LYMPHOCYTES 20.3 18.0 - 42.0 % 03/31/2025 2:57 PM CDT [facility] MONOCYTES 11.1 4.0 - 12.0 % 03/31/2025 2:57 PM CDT [facility] EOSINOPHILS 2.1 0.0 - 5.0 % 03/31/2025 2:57 PM CDT [facility] BASOPHILS 0.6 0.0 - 1.0 % 03/31/2025 2:57 PM CDT [facility] IMMATURE GRANULOCYTE 0.2 0.0 - 0.4 % 03/31/2025 2:57 PM CDT [facility] ABSOLUTE NEUTROPHILS 3.13 1.60 - 7.70 10(3)/[facility] 03/31/2025 2:57 PM CDT [facility] ABSOLUTE LYMPHOCYTES 0.97(L) 1.30 - 3.20 10(3)/[facility] 03/31/2025 2:57 PM CDT [facility] ABSOLUTE MONOCYTES 0.53 0.20 - 1.00 10(3)/[facility] 03/31/2025 2:57 PM CDT [facility] ABSOLUTE EOSINOPHIL 0.10 0.00 - 0.40 10(3)/[facility] 03/31/2025 2:57 PM CDT [facility] ABSOLUTE BASOPHILS 0.03 0.00 - 0.10 10(3)/[facility] 03/31/2025 2:57 PM CDT [facility] ABSOLUTE IMMATURE GRANULOCYTE 0.01 0.00 - 0.03 10 (3) mcL. 03/31/2025 2:57 PM CDT [facility] NRBC PER 100 WBC 0 03/31/20 25 2:57 PM CDT [facility] Blood Venipuncture / Unknown 03/31/2025 2:30 PM CDT 03/31/2025 2:30 PM CDT Jaki Kim APRN, CNP HEMATOLOGY ORDERABLES Final Result Performing Organization Address [facility] Co de Phone Number [facility] [address] [place] [address] * THYROID STIMULATING HORMONE (TSH) (03/31/2025 2:30 PM CDT) Only the most recent of2 resultswithin the time period is included. TSH 0.359 0.300 - 5.000 mIU/L 03/31/2025 3:17 PM CDT [facility] Blood Venipuncture / Unknown 03/31/2025 2:30 PM CDT 03/31/2025 2:30 PM CDT Jaki Kim APRN, CNP CHEMISTRY ORDERABLES F inal Result Performing Organization Address [facility] Co de Phone Number [facility] [address] [place] [address] * (ABNORMAL) CMP (COMPREHENSIVE METABOLIC PANEL) (03/31/2025 2:30 PM CDT) Only the most recent of3 resultswithin the time period is included. SODIUM 137 136 - 145 mmol/L 03/31/2025 2:56 PM CDT [facility] POTASSIUM 4.2 3.5 - 5.1 mmol/L 03/31/2025 2:56 PM CDT [facility] CHLORIDE 106 98 - 107 mmol/L 03/31/2025 2:56 PM CDT [facility] CO2, VENOUS 25 22 - 30 mmol/L 03/31/2025 2:56 PM CDT [facility] ANION GAP 10.2 <18.0 mmol/L 03/31/2025 2:56 PM CDT [facility] GLUCOSE 223(H) 70 - 99 mg/dL 03/31/2025 2:56 PM CDT [facility] BUN 21(H) 10 - 20 mg/dL 03/31/2025 2:56 PM CDT [facility] CREATININE, BLOOD 0.75 0.60 - 1.00 mg/dL 03/31/2025 2:56 PM CDT [facility] BUN/CREATININE RATIO 28(H) 12 - 20 ratio 03/31/2025 2:56 PM CDT [facility] TOTAL PROTEIN 9.1(H) 6.0 - 8.0 g/dL 03/31/2025 2:56 PM CDT [facility] ALBUMIN 3.7 3.5 - 5.0 g/dL 03/31/2025 2:56 PM CDT [facility] A/G RATIO 0.7(L) 1.0 - 2.2 03/31/2025 2:56 PM CDT [facility] CALCIUM 8.9 8.7 - 10.5 mg/dL 03/31/2025 2:56 PM CDT [facility] T BILI 0.7 0.2 - 1.2 mg/dL 03/31/2025 2:56 PM CDT [facility] SGOT (AST) 67(H) <43 U/L 03/31/2025 2:56 PM CDT [facility] SGPT (ALT) 16 <56 U/L 03/31/2025 2:56 PM CDT [facility] ALKALINE PHOSPHATASE 182(H) 40 - 150 U/L 03/31/2025 2:56 PM CDT [facility] IS THE PATIENT REQUIRED TO BE FASTING? No 03/31/2025 2:56 PM CDT [facility] GFR, ESTIMATED >60 >=60 03/31/2025 2:56 PM CDT [facility] Comment: Creatinine Clearance is the preferred criteria for selecting drug dose adjustments in renally impaired patients. The GFR is provided as additional pertinent clinical information. GFR is reported in mL/min/1.73 sq m. Calculation based on the 2020 Chronic Kidney Disease Epidemiology Collaboration (CKD-EPI) equation refit without adjustment for race. GFR, EST. >60 >=60 025 2:56 PM CDT [facility] Comment: Creatinine Clearance is the preferred criteria for selecting drug dose adjustments in renally impaired patients. The GFR is provided as additional pertinent clinical information. GFR is reported in mL/min/1.73 sq m. Calculation based on the 2009 Chronic Kidney Disease Epidemiology Collaboration (CKD-EPI). GFR, EST. NONAFRICAN >60 >=60 03/31/2025 2:56 PM CDT [facility] Comment: Creatinine Clearance is the preferred criteria for selecting drug dose adjustments in renally impaired patients. The GFR is provided as additional pertinent clinical information. GFR is reported in mL/min/1.73 sq m. Calculation based on the 2009 Chronic Kidney Disease Epidemiology Collaboration (CKD-EPI). Blood Venipuncture / Unknown 03/31/2025 2:30 PM CDT 03/31/2025 2:30 PM CDT us Jaki Kim ASSISTANT PROFESSOR OF MUSIC, OIL BURNER MECHANIC CHEMISTRY ORDERABLES F inal Result [facility] [address] [place] [address] * (ABNORMAL) ALPHA FETOPROTEIN, TUMOR MARKER (03/31/2025 2:30 PM CDT) Only the most recent of2 resultswithin the time period is included. ALPHA FETOPROTEIN 9,188.6(H) 0.0 - 8.8 ng/mL 04/01/2025 12:14 AM CDT [facility] Blood Venipuncture / Unknown 03/31/2025 2:30 PM CDT 03/31/2025 2:46 PM CDT Serjio Santoro MD CHEMISTRY ORDERABLES Fin al Result Performing Organization Address [facility] Co de Phone Number [facility] [address] [place] [address], [place] * CULTURE, AEROBIC ONLY (03/19/2025 11:34 AM CDT) Only the most recent of2 resultswithin the time period is included. CULTURE RESULTS METHICILLIN RESISTANT STAPHYLOCOCCUS AUREUS 03/21/2025 8:05 PM CDT [facility] Culture (Superficial Wound) Non-Phlebotomy Collection / Unknown 03/19/2025 11:34 AM CDT 03/19/2025 1:29 PM CDT Narrative Organism Antibiotic Method Susceptibility Methicillin Resistant Staph aureus Oxacillin [facility] II >=4 mcg/ml: Resistant Methicillin Resistant Staph aureus Gentamicin [facility] II <=0.5 mcg/ml: Susceptible Methicillin Resistant Staph aureus Erythromycin [facility] II >=8 mcg/ml: Resistant Methicillin Resistant Staph aureus Linezolid [facility] II 2 mcg/ml: Susceptible Methicillin Resistant Staph aureus Vancomycin [facility] II 1 mcg/ml: Susceptible Methicillin Resistant Staph aureus Tetracycline [facility] II <=1 mcg/ml: Susceptible Methicillin Resistant Staph aureus Trimeth/Sulfamethoxazol e [facility] II <=10 mcg/ml: Susceptible Daquan Nunez MD MICROBIOLOGY - GENERAL ORDERABLE S Final Result Performing Organization Address [facility] Co de Phone Number [facility] [address] [address], [place] * (ABNORMAL) POCT Glucose (03/18/2025 9:42 AM CDT) GLUCOSE,BEDSID E POCT 119(H) 70 - 99 mg/dL 03/18/2025 9:43 AM CDT [facility] Blood 03/18/2025 9:42 AM CDT 03/18/2025 9:43 AM CDT us None Provider POINT OF CARE TESTING Final Resu lt [facility] [address] [place] [address] * GI LAB IMAGING - EGD (03/18/2025 9:18 AM CDT) us Manuel Lovett MD IMG DIAGNOSTIC ORDERABLES Final Result * CULTURE, ANAEROBIC (02/18/2025 5:17 PM CDT) CULTURE RESULTS MIXED PROBABLE ANAEROBES PRESENT. NO FURTHER WORKUP PERFORMED. 02/21/2025 1:43 PM CDT [facility] Culture (Deep Wound) Non-Phlebotomy Collection / Unknown 02/18/2025 5:17 PM CDT 02/18/2025 5:21 PM CDT Daquan Nunez MD MICROBIOLOGY - GENERAL ORDERABLE S Final Result Performing Organization Address City/[facility]/ZIP Co de Phone Number [facility] [address] [place] [address], [place] * MRI ABDOMEN W/WO CONTRAST (02/03/2025 10:12 AM CDT) Anatomical Region Laterality Modality Abdomen N/A Magnetic Resonan ce 02/10/2025 2:16 PM CDT Impressions 02/10/2025 2:19 PM CDT IMPRESSION: 1. Advanced cirrhotic morphology of the liver with a large mass occupying hepatic segments 8 7 5 and partially 6. This mass encases and obliterates the right portal vein. Small amount of enhancing thrombus is seen within the proximal aspect of right portal vein favored to represent tumor thrombus. Findings are most compatible with hepatocellular carcinoma. LR-TIV. 2. Multiple periportal and retroperitoneal enlarged necrotic appearing lymph nodes. The largest periportal lymph node measures approximately 4.7 x 2.3 cm. A left para-aortic lymph node measures a maximum of 2 x 1.8 cm. Findings are concerning for metastatic disease. 3. Stigmata of portal hypertension including splenomegaly gastroesophageal varices and gastroesophageal varices. 4. Cholelithiasis. Narrative 02/10/2025 2:19 PM CDT EXAM DESCRIPTION: MRI ABDOMEN W/WO CONTRAST REASON FOR STUDY: Liver mass on CT 11/15/24. MRI for further evaluation. TECHNIQUE: MRI of the abdomen performed without and with intravenous contrast according to the protocol. All images stored on PACS. CONTRAST TYPE/DOSE: 20mL of GADOBENATE DIMEGLUMINE 529 MG/ML IV SOLN injected via Intravenous COMPARISON: CT dated November 17, 2024 FINDINGS: LOWER CHEST: No effusion. LIVER: There is advanced cirrhotic morphology of the liver. There is a large mass occupying hepatic segments 8 7 5 and partially 6. This appears T2 heterogeneous. No microscopic or macroscopic fat. This strongly restricts diffusion. This is difficult to measure in size however measures approximately 5.6 x 4.6 cm (series 11,102, image 28). This mass encases and obliterates the right portal vein. Small amount of enhancing thrombus is seen within the proximal aspect of right portal vein favored to represent tumor thrombus. Findings are most compatible with hepatocellular carcinoma. LR-TIV GALLBLADDER: Multiple stones are seen. No wall thickening or pericholecystic fluid. BILE DUCTS: No intrahepatic or extrahepatic ductal dilatation. SPLEEN: The spleen is enlarged measuring 16.7 cm in craniocaudal dimension. No focal parenchymal lesion is seen.. No focal lesions. PANCREAS: No masses. No adjacent inflammation or peripancreatic fluid collections. Pancreatic duct not dilated ADRENALS: Normal. KIDNEYS/URINARY TRACT: No solid masses. No cysts. No hydronephrosis or hydroureter. Symmetric enhancement. GI: No visualized abnormality. PERITONEUM: No ascites. RETROPERITONEUM: There are multiple periportal and retroperitoneal enlarged necrotic appearing lymph nodes. The largest periportal lymph node measures approximately 4.7 x 2.3 cm (series 4, image 51). A left para-aortic lymph node measures a maximum of 2 x 1.8 cm (series 4, image 47). VASCULATURE: No abdominal aortic aneurysm. Gastroesophageal varices are seen. A splenorenal shunt is noted. MUSCULOSKELETAL: No acute findings. OTHER: No other abnormality. THIS IS AN ELECTRONICALLY VERIFIED FINAL REPORT 02/10/2025 2:16 PM - Electronically signed by Ben Kirkland M.D. JA: MONROE Report ID: [id number] Reading Location: [id number] Procedure Note Ben Kirkland MD - 02/10/2025 EXAM DESCRIPTION: MRI ABDOMEN W/WO CONTRAST REASON FOR STUDY: Liver mass on CT 11/15/24. MRI for further evaluation. TECHNIQUE: MRI of the abdomen performed without and with intravenous contrast according to the protocol. All images stored on PACS. CONTRAST TYPE/DOSE: 20mL of GADOBENATE DIMEGLUMINE 529 MG/ML IV SOLN injected via Intravenous COMPARISON: CT dated November 17, 2024 FINDINGS: LOWER CHEST: No effusion. LIVER: There is advanced cirrhotic morphology of the liver. There is a large mass occupying hepatic segments 8 7 5 and partially 6. This appears T2 heterogeneous. No microscopic or macroscopic fat. This strongly restricts diffusion. This is difficult to measure in size however measures approximately 5.6 x 4.6 cm (series 11,102, image 28). This mass encases and obliterates the right portal vein. Small amount of enhancing thrombus is seen within the proximal aspect of right portal vein favored to represent tumor thrombus. Findings are most compatible with hepatocellular carcinoma. LR-TIV GALLBLADDER: Multiple stones are seen. No wall thickening or pericholecystic fluid. BILE DUCTS: No intrahepatic or extrahepatic ductal dilatation. SPLEEN: The spleen is enlarged measuring 16.7 cm in craniocaudal dimension. No focal parenchymal lesion is seen.. No focal lesions. PANCREAS: No masses. No adjacent inflammation or peripancreatic fluid collections. Pancreatic duct not dilated ADRENALS: Normal. KIDNEYS/URINARY TRACT: No solid masses. No cysts. No hydronephrosis or hydroureter. Symmetric enhancement. GI: No visualized abnormality. PERITONEUM: No ascites. RETROPERITONEUM: There are multiple periportal and retroperitoneal enlarged necrotic appearing lymph nodes. The largest periportal lymph node measures approximately 4.7 x 2.3 cm (series 4, image 51). A left para-aortic lymph node measures a maximum of 2 x 1.8 cm (series 4, image 47). VASCULATURE: No abdominal aortic aneurysm. Gastroesophageal varices are seen. A splenorenal shunt is noted. MUSCULOSKELETAL: No acute findings. OTHER: No other abnormality. THIS IS AN ELECTRONICALLY VERIFIED FINAL REPORT 02/10/2025 2:16 PM - Electronically signed by Ben Kirkland M.D. JA: MONROE Report ID: [id number] Reading Location: [id number] IMPRESSION: 1. Advanced cirrhotic morphology of the liver with a large mass occupying hepatic segments 8 7 5 and partially 6. This mass encases and obliterates the right portal vein. Small amount of enhancing thrombus is seen within the proximal aspect of right portal vein favored to represent tumor thrombus. Findings are most compatible with hepatocellular carcinoma. LR-TIV. 2. Multiple periportal and retroperitoneal enlarged necrotic appearing lymph nodes. The largest periportal lymph node measures approximately 4.7 x 2.3 cm. A left para-aortic lymph node measures a maximum of 2 x 1.8 cm. Findings are concerning for metastatic disease. 3. Stigmata of portal hypertension including splenomegaly gastroesophageal varices and gastroesophageal varices. 4. Cholelithiasis. us Serjio Santoro MD IMG MR ORDERABLES Final Result * POCT Creatinine (02/03/2025 9:05 AM CDT) [facility] CREATININE - POCT 0.6 0.6 - 1.3 mg/dL 02/03/2025 9:06 AM CDT [facility] Blood 02/03/2025 9:05 AM CDT 02/03/2025 9:06 AM CDT None Provider POINT OF CARE TESTING Final Resu lt [facility] [address] [place] [address] * HEPATITIS C RNA QUANT PCR VIRAL LOAD (01/28/2025 10:29 AM CDT) [facility] HCV RNA QUANT PCR NON DETECTED NON DETECTED 02/03/2025 6:58 AM CDT [facility] HCV RNA QT LOG10 02/03/2025 6:58 AM CDT [facility] Comment: LOG 10 is not applicable. This test was performed using GRANT 5800 Real Time PCR. Blood Venipuncture / Unknown 01/28/2025 10:29 AM CDT 01/28/2025 10:29 AM CDT Serjio Santoro MD IMMUNOLOGY ORDERABLES Fi nal Result Performing Organization Address [facility] Co de Phone Number [facility] [address] [place] [address], [place] * HEPATITIS C ANTIBODY (01/28/2025 10:29 AM CDT) hepatitis C antibody 0.13 <1 S/CO 01/28/2025 10:54 PM CDT [facility] Comment: Signal/Cutoff ratio < 0.79 is Nondetected Signal/Cutoff ratio 0.80-0.99 is Grayzone Signal/Cutoff ratio > 0.99 is Detected Supplemental assays are recommended if signal/cutoff ratio is >/=1.00. Signal/cutoff ratio result >/= 5.00 is 97% predictive of positivity for recombinant immunoblot assay (RIBA) and will be reported to the [place] Department of Public [facility] as required. Blood Venipuncture / Unknown 01/28/2025 10:29 AM CDT 01/28/2025 10:29 AM CDT Serjio Santoro MD CHEMISTRY ORDERABLES Fin al Result Performing Organization Address [facility] Co de Phone Number [facility] [address] [place] [address], [place] * HEPATITIS B SURFACE ANTIBODY (HBSAB) (01/28/2025 10:29 AM CDT) HEPATITIS B SURFACE ANTIBODY <8.00 mIU/mL 01/28/2025 10:54 PM CDT [facility] Comment:Individual is consid ered not immune to HBV infection. Blood Venipuncture / Unknown 01/28/2025 10:29 AM CDT 01/28/2025 10:29 AM CDT Serjio Santoro MD CHEMISTRY ORDERABLES Fin al Result Performing Organization Address City/[facility] Co de Phone Number [facility] [address] [place] [address], [place] * HEPATITIS B SURFACE ANTIGEN (HBSAG) (01/28/2025 10:29 AM CDT) HEPATITIS B SURFACE ANTIGEN NON DETECTED NON DETECTED 01/28/2025 11:32 AM CDT [facility] Comment:A nonreactive test r esult does not exclude the possibility of exposure to or infection with Hepatitis B virus. A nonreactive test result in individuals with prior exposure to hepatitis B may be due to antigen levels below the detection limit of this assay or lack of antigen reactivity to the antibodies in this assay. Blood Venipuncture / Unknown 01/28/2025 10:29 AM CDT 01/28/2025 10:29 AM CDT Serjio Santoro MD CHEMISTRY ORDERABLES Fin al Result Performing Organization Address [facility] de Phone Number [facility] [address] [place] [address] * HEPATITIS B CORE ANTIBODY IGM (01/28/2025 10:29 AM CDT) HEP B CORE AB (IGM) NON DETECTED NON DETECTED 01/28/2025 11:04 PM CDT [facility] Comment:IGM anti-HBC not det ected. Does not exclude the possibility of exposure to or infection with HBV. Blood Venipuncture / Unknown 01/28/2025 10:29 AM CDT 01/28/2025 10:29 AM CDT Serjio Santoro MD CHEMISTRY ORDERABLES Fin al Result Performing Organization Address City/[facility]/ZIP Co de Phone Number [facility] [address] [place] [address], * (ABNORMAL) Hemoglobin A1C w/ Estimated Glucose (11/15/2024 5:01 PM CDT) HGB-A1C 6.2(H) 4.0 - 6.0 % 11/15/2024 5:37 PM CDT [facility] Est Average Glucose 131.2 mg/dL 11/15/2024 5:37 PM CDT [facility] Blood Venipuncture / Unknown 11/15/2024 5:01 PM CDT 11/15/2024 5:14 PM CDT Narrative [facility] - 11/15/2024 5:37 PM CDT HEMOGLOBIN A1C: DIABETIC PATIENTS: WELL-CONTROLLED: 6.2 - 7.0 INTERMEDIATE WELL-CONTROLLED: 7.0 - 9.0 POORLY-CONTROLLED: >9.0 Specimens containing greater than 5% of Hemoglobin F may result in lower than expected % HbA1C results. 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 03/19/2025 Insurance MEDICAID [place] [employer] [place] [facility] Member Subscriber Plan / Payer (Ef fective 2023-Present) Name:Farzana Bran Relation to Subscriber:Self Name:Farzana Bran Payer ID:[id number] (NAIC) Type:Not on file Address: [place] [phone] Advance Directives Documents on File Type Date Recorded Patient Production Officer Expl anation Power of Chairman Of The Board for Health Care 11/16/2024 3:44 PM POA-HC, [...] Agent Relationship Communication Malinda Bran Daughter/Step-Daughter Surrogate Tioi on Maker Care Teams Contact Center Professional Relationship Specialty Start Date End Date Nayana Garber PAC [address] [place] [id number] PCP - General Advanced Practice Nurse 08/17/24
--- OUTSIDE RECORDS SUMMARY | 2025-04-12 14:49 | XMS_ITS | Clinical Summary ---
Author Organization [facility] Address [address] [place] [address] Care Team Providers Care Plane Captain Name Role Phone No, Physician Primary Care [...] as directed 3 times a day Active alcohol swabs (Alcohol Wipes) pads, medicated Use as directed. Active lancets misc Use as directed up [...] traMADoL (ULTRAM) 50 mg tablet 5 Active glucose 4 gram chewable tablet Chew 4 tablets as directed by provider for low blood sugar. My repeat every 15 minutes as needed. 4 04/08/20 Additional Information Patient not taking.Reported on 06/06/2024 Active Problems Problem Noted Date Diagnosed Date [...] Lispro increased 16u TID per Endocrine - Search Engine Marketing Manager consulted - Cash Register Balancer consulted for further education on food/snack choices [...] no regular soda Discharge Planning Use A [facility] Diabetes Discharge Order Set - Lantus [...] Lispro increased 16u TID per Endocrine - Search Engine Marketing Manager consulted - Cash Register Balancer consulted for further education on food/snack choices [...] MAP > 90 augmentation per nsgy - HOURLY MANAGER/TLSO brace, Alutiiq J until custom HOURLY MANAGER/TLSO complete - Normotensive MAP goals, - Strict [...] has been staffed with Dr. Tapia. Custom HOURLY MANAGER/TLSO Follow Up Clinic in 4-6 weeks with [...] MAP > 90 augmentation per nsgy - HOURLY MANAGER/TLSO brace, Alutiiq J until custom HOURLY MANAGER/TLSO complete - Normotensive MAP goals, - Strict [...] has been staffed with Dr. Tapia. Custom HOURLY MANAGER/TLSO Follow Up Clinic in 4-6 weeks with [...] MAP > 90 augmentation per nsgy - HOURLY MANAGER/TLSO brace, Alutiiq J until custom HOURLY MANAGER/TLSO complete - Normotensive MAP goals, - Strict [...] MAP > 90 augmentation per nsgy - HOURLY MANAGER/TLSO brace, Alutiiq J until custom HOURLY MANAGER/TLSO complete - Normotensive MAP goals, - Strict [...] Encounters Date Type Department Care Team Description 04/09/2025 Orders Only [facility] Medicine Neurosurgery [address] [place] [address] [place] [address] Carol Monae, HOLA S/P cervical spinal fusion (Primary Dx); Right hand weakness from Last 3 Months Immunizations Immunization Administration Dates Next Due Influenza, Quadrivalent, Split, Intramuscular Influenza, Quadrivalent, Spl it, Preservative Free, Intramuscular 08/17/2022,05/25/2016 Tdap 12/10/2023 Social History Tobacco Use Types Packs/Day Years Used Date Smoking Tobacco: Former Cigarettes Tobacco Cessation:Counseling Given: No [facility] Utilities Answer Date Recorded In the past 12 months has [employer], gas, oil, or water company threatened to shut off services in your home? No 04/10/2024 Social Connection and Isolation Panel Answer Date Recorded In a typical week, how many times do you talk on the phone with family, friends, or neighbors? More than three times a week 04/10/2024 How often do you get togethe r with friends or relatives? More than three times a week 04/10/2024 How often do you attend chur ch or caodaism services? 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 Gender Identity Not on file Sexual Orientation [...] PCV) 1986 Zoster Vaccine (1 of 2) 2017 Covid-19 Vaccine (4 - 2023-2 5 season) 2024 08/17/2022, 04/07/2022, 03/14/2022 Hemoglobin A1C 09/12/2024 03/12/2024, 02/12, 03/11/2024, Additional history exists Depression Screening 03/08/2025 03/08/2024 Influenza Vaccine (#1) 2025 , 07/24/2017, 05/25/2016 eGFR 04/15/2025 04/15/2024, 03/14, 03/19/2024, Additional history exists DTaP/Tdap/Td Vaccine (2 - Td or Tdap) 12/09/2033 12/10/2023 Hepatitis C Screening Completed 03/09/2024 Medical Devices Implanted Type Area Security Guard Device Identifier Shelf Expiration Date Model / Serial / Lot Allosource Canpac Allograft Frozen Nonpurge Graft 10cc Bone Cancellous [id number] - [id number] Implanted:Qty: 1 on 03/13/2024 by Marcio Tapia MD at [facility] Bone N/A: Cervical- Thoracic Spine Allosource 02/04/2029 [id number] / / [id number] Allosource Canpac Allograft Frozen Nonpurge Graft 10cc Bone Cancellous [id number] - [id number] Implanted:Qty: 1 on 03/13/2024 by Marcio Tapia MD at [facility] Bone N/A: Cervical- Thoracic Spine Allosource 01/31/2029 [id number] / / [id number] Allosource Canpac Allograft Frozen Nonpurge Graft 10cc Bone Cancellous [id number] - [id number] Implanted:Qty: 1 on 03/13/2024 by Marcio Tapia MD at [facility] Bone N/A: Cervical- Thoracic Spine Allosource 01/18/2029 [id number] / / [id number] Nuvasive Inc Wayne Spinal Posterior Cervical Prebent Reline [id number] Titanium [id number] - [id number] Implanted:Qty: 1 on 03/13/2024 by Marcio Tapia MD at [facility] N/A: Cervical- Thoracic Spine Nuvasive Inc [id number] / / Nuvasive Inc Wayne Spine Reline C Ti Straight [id number] - [id number] Implanted:Qty: 1 on 03/13/2024 by Marcio Tapia MD at [facility] N/A: Cervical- Thoracic Spine Nuvasive Inc [id number] / / Medtronic Inc Kit Graft Bone Sponge Xlg Infuse 8cc Granules [id number] - [id number] Implanted:Qty: 1 on 03/13/2024 by Marcio Tapia MD at [facility] N/A: Cervical- Thoracic Spine Medtronic Inc 02/10/2025 [id number] / / [id number] [employer] Graft Bone Magnetos 10cc 1-2mm Granules In Moldable Putty [id number] - [id number] Implanted:Qty: 1 on 03/13/2024 by Marcio Tapia MD at [facility] N/A: Cervical- Thoracic Spine [employer] [id number] 01/12/2028 [id number] / / [id number] Nuvasive Inc Screw Spine Reline C Lock Open Non-Sterile Latex Free [id number] - [id number] Implanted:Qty: 14 on 03/13/2024 by Marcio Tapia MD at [facility] N/A: Cervical- Thoracic Spine Nuvasive Inc [id number] / / Nuvasive Inc Screw Spine Reline C Ma 3.5x16mm Non-Sterile Latex Free [id number] - [id number] Implanted:Qty: 8 on 03/13/2024 by Marcio Tapia MD at [facility] N/A: Cervical- Thoracic Spine Nuvasive Inc [id number] / / Nuvasive Inc Reline C Screw 5.5x35mm Reduction Thor [id number] - [id number] Implanted:Qty: 4 on 03/13/2024 by Marcio Tapia MD at [facility] N/A: Cervical- Thoracic Spine Nuvasive Inc [id number] / / Nuvasive Inc Reline C Screw 3.5x28mm Reduction Fa [id number] - [id number] Implanted:Qty: 2 on 03/13/2024 by Marcio Tapia MD at [facility] N/A: Cervical- Thoracic Spine Nuv[employer] Inc [id number] / / Procedures Procedure Name Priority Date/Time Associated Diagnosis Comments EGFR Routine 04/15/2024 9:33 AM CDT HEMOGLOBIN A1C Routine 03/11/2024 8:59 PM CDT HEPATITIS PANEL, ACUTE Routine 03/09/2024 7:59 PM CDT from Last 3 Months or Most Recently Relevant to Health Maintenance Results * eGFR (04/15/2024 9:33 AM CDT) eGFR [...] ORDERABLE S Final Result Performing Organization Address City/State/ZIP Co ma Phone Number [facility] Department [place] [address] * (ABNORMAL) Hemoglobin A1c (03/11/2024 8:59 PM CDT) Hgb A1C 8.9(H) 4.0 - 5.6 % Estimated Average Glucose 209 mg/dL [facility] Comment: The ADA recommends reporting an [...] DO LAB BLOOD ORDERABLES Final Result [facility] Department [place] [address] * Hepatitis panel, acute Blood (03/09/2024 7:59 PM CDT) Hep A IgM Nonreactive Nonreactive Hep B core IgM Nonreactive Nonreactive [facility] Hep C Ab Nonreactive Nonreactive [facility] Comment:Antibodies to HCV no t detected. Does NOT exclude the possibility of recent exposure to HCV. Current interpretive data was last revised on 22 HepBsAg Nonreactive Nonreactive [facility] Blood 03/09/2024 7:59 PM CDT 03/09/2024 8:07 PM CDT Chadd Toledo DO LAB MICROBIOLOGY - NERAL ORDERABLES Final Result Performing Organization Address [facility] Co de Phone Number [facility] Department [place] [address] from Last 3 Months or Most Recently Relevant to Health Maintenance Insurance [facility] MEDICARE ADVANTAGE [facility] MEDIC[facility] ADVANTAGE Advance Directives For more information, please contact: [phone] * Full Code (Latest Code Status on File) Date Activated Date Inactivated Comments 04/16/2024 7:23 AM 04/18/2024 8:03 PM * Full Code Date Activated Date Inactivated Comments 03/09/2024 6:10 AM 04/08/2024 7:32 PM Care Teams Plane Captain Relationship Specialty Start Date End Date No, Physician PCP - General 04/10/24
--- OUTSIDE RECORDS SUMMARY | 2025-04-12 14:49 | XMS_ITS ---
Author Organization [facility] Address [address] [place] [address] Phone Care Team Providers Care Community Outreach Worker Name Role Phone Nayana Garber PAC Primary Care Provider + Active Problems Problem Noted Date Diagnosed Date [...] 03/16/2024 History of traumatic brain injury 01/28/2024 Current Treatment and Therapy Plans [facility]: Durvalumab - (Every 4 Weeks) - Hepatocellular Carcinoma* Plan Start Date:02/26/2025 Plan Provider:Jaki Kim, GENERAL FOREMAN, DIGITAL MARKETING LEAD Linked Problems Hepatocellular carcinoma met astatic to lymph nodes of multiple sites (HCC) Treatment Medications Current Day (Day 1 , Cycle 3 - Planned for 04/29/2025) Next Day (Day 1, Cycle 4 - Planned for 05/27/2025) durvalumab (IMFINZI) chemo infusion durvalumab (IMFINZI) 1,500 mg in sodium chloride 0.9 % 250 mL chemo infusion durvalumab (IMFINZI) 1,500 mg in sodium chloride 0.9 % 250 mL chemo infusion Past Treatment and Therapy Plans No past plan information found. Resolved Problems Problem Noted Date Diagnosed Date Resolved Date Acute infective cystitis 11/15/202406/2025
--- OUTSIDE RECORDS SUMMARY | 2025-04-12 14:49 | XMS_ITS | Patient Health Record ---
Author Organization 1 OF Kenia mancini [facility] Address [address] [place] [address] Care Team Providers Care It Programmer Analyst Name Role Phone UNKNOWN, UNKNOWN Primary Care Provider Unavailab Kevin Zelaya Unavailable Reason For Referral No Information Encounters Encounter Location Date Provider Diagnosis 1 OF [place] [facility] [address] [place] [address] 01/06/2025 Kevin Washington 1 OF [place] [facility] [address] [place] [address] 01/22/2025 Kevin Washington Plan Of Treatment No Information
[2025-04-12 14:52] LABS: Creatine Kinase 154 U/L (30-135); Magnesium 1.6 mg/dL (1.6-2.3)
[2025-04-12 15:04] LABS: Troponin I < 0.012 ng/mL (0.000-0.034)
[2025-04-12 15:32] LABS: Influenza A QL RT-PCR Negative (Negative); Influenza B QL RT-PCR Negative (Negative); RSV RNA, RT-PCR Negative (Negative); SARS-CoV-2 RNA PCR Negative (Negative)
[2025-04-12] MEDS: MAGNESIUM SULF 2 GM/WATER 50ML 2 GM/50 ML BAG IVPB (15:38)
[2025-04-12 15:54] LABS: Ammonia 18 umol/L (9-30)
[2025-04-12 16:17] LABS: Cannabinoid Screen Urine Positive (Negative)
--- NOTE | 2025-04-12 17:22 | PM.IMHP ---
H&P: HPI History of Present Illness Date/Time: 04/12/25 17:22 Chief Complaint: Altered mental status [facility] Past Medical History Medical History Cervical vertebral fusion TBI (traumatic brain injury) Family History Family History Other Cerebrovascular accident Diabetes mellitus Family history of cardiovascular disease Family history of malignant neoplasm Hypertension Social History Social History Smoking packs per day: 0.1 Smoking cigarettes per day: 2.0 Years smoked: 40 Smoking pack-years: 4.00 Smoking status: Current every day smoker Tobacco type: cigarettes Alcohol intake: never Substance use: current Substance use type: marijuana Lack of Transportation: No Lack of Food: Never True Current Housing: I Have Housing Concerned About Future Housing: No Difficulty Paying Gas/Electric Bills: No Difficulty Paying for Meds: No Currently Unemployed: No Education: High School Diploma/GED Difficulty w/ Childcare or Family Care: No Spiritual care concerns: No Meds Home Medications and Allergies Home Medications ?Medication ?Instructions ?Recorded ?Confirmed ?Type cyclobenzaprine 10 mg tablet 10 mg PO BID 05/23/23 05/23/23 History gabapentin 300 mg capsule 300 mg PO TID 05/23/23 05/23/23 History glipizide 10 mg tablet 10 mg PO BID 05/23/23 05/23/23 History insulin detemir U-100 100 unit/mL 10 unit subcut 05/23/23 05/23/23 History (3 mL) subcutaneous pen meloxicam 15 mg tablet 15 mg PO 05/23/23 05/23/23 History Allergies Allergy/AdvReac Type Severity Reaction Status Date / Time naproxen Allergy Unknown Hives Verified 11/15/24 13:06 Vital Signs Vital Signs - 24 hr 04/12/25 13:23 04/12/25 13:29 04/12/25 13:30 Temperature 98.6 F Pulse Rate 100 101 H 100 Respiratory Rate 21 H 19 20 Blood Pressure 154/69 H 154/69 H Pulse Oximetry 98 95 97 Oxygen Delivery Room Air 04/12/25 13:45 04/12/25 14:01 04/12/25 14:08 Temperature Pulse Rate 107 H 104 H Respiratory Rate 24 H 21 H Blood Pressure Pulse Oximetry 96 Oxygen Delivery Room Air 04/12/25 14:15 04/12/25 14:18 04/12/25 14:31 Temperature Pulse Rate 105 H 104 H 106 H Respiratory Rate 27 H 21 H 17 Blood Pressure 154/69 H Pulse Oximetry 96 98 Oxygen Delivery 04/12/25 14:32 04/12/25 14:45 04/12/25 15:03 Temperature Pulse Rate 101 H 107 H 100 Respiratory Rate 20 21 H 18 Blood Pressure 150/66 H Pulse Oximetry 96 97 100 Oxygen Delivery 04/12/25 15:30 04/12/25 15:31 04/12/25 15:45 Temperature Pulse Rate 99 101 H 99 Respiratory Rate 20 20 18 Blood Pressure 148/56 H Pulse Oximetry 99 Oxygen Delivery 04/12/25 16:00 04/12/25 16:01 04/12/25 16:16 Temperature Pulse Rate 101 H 101 H 101 H Respiratory Rate 18 18 17 Blood Pressure 137/71 Pulse Oximetry 100 100 Oxygen Delivery 04/12/25 16:32 04/12/25 16:45 Temperature Pulse Rate 104 H 100 Respiratory Rate 20 19 Blood Pressure 123/55 L Pulse Oximetry 98 100 Oxygen Delivery H&P: Results Labs Labs: Short CBC 04/12/25 Range/Units 14:05 WBC 8.3 (4.5-10.0) K/mm3 Hgb 13.0 (12.0-15.0) g/dL Hct 38.9 (37.0-47.0) % Plt Count 100 L (150-375) k/mm3 BMP 04/12/25 14:05 Sodium 132 L Potassium 4.0 Chloride 99 Carbon Dioxide 20 L BUN 17 Creatinine 0.67 L Glucose 247 H Calcium 9.2 Cardiac Enzymes 04/12/25 Range/Units 14:05 Total Creatine Kinase 154 H (30-135) U/L Troponin I < 0.012 (0.000-0.034) ng/mL Liver Function 04/12/25 Range/Units 14:05 Total Bilirubin 1.5 H (0.2-1.3) mg/dL AST 67 H (14-36) U/L ALT 30 (6-35) U/L Alkaline Phosphatase 158 H (38-126) U/L Albumin 4.2 (3.5-5.1) g/dL Urine 04/12/25 Range/Units 13:46 Urine Color Dark yellow (Yellow) Urine Appearance Cloudy H (Clear) Urine pH 5.5 (5.0-9.0) Ur Specific [place] 1.028 (1.001-1.035) Urine Protein 3+ H (Negative) mg/dL Urine Glucose (UA) Trace H (Negative) mg/dL
--- NOTE | 2025-04-12 18:10 | ADMGEN ---
This patient, Farzana Bran, was admitted to Medical Room 348-01. Patient/family oriented to hospital policies and general routines including ID bracelet, bed and alarms, visiting hours, pain management, procedures, bathroom and other care routines, personal items, smoking policy, room service/diet, and visiting hours. Information on how to activate the Rapid Response Team has been discussed. Patient/Family are encouraged to report perceived risks to care and to ask questions if they do not understand what they are told or what they should do.
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
[2025-04-12] MEDS: INSULIN GLARGINE (*BKC) 100 UNITS/ML 22 UNITS SUB-Q (23:39)
[2025-04-13] VITALS (12 sets, daily range): BP systolic 119–156; BP diastolic 50–92; PULSE 82–97; RESP 16–18; TEMP 36.1–36.5; O2SAT 92–100
--- NOTE | 2025-04-13 | ECHO_ITS ---
Patient Info Name: Farzana Bran Age: 60 years : 1965 Gender: Female Ht: 66 in Wt: 197 lbs BSA: 2.07 m2 HR: 97 bpm BP: 156 / 67 mmHg Heart Rhythm: Sinus Rhythm Technical Quality: Fair Exam Date: 04/13/2025 1:36 PM Patient Status: I Admit Date: 04/13/2025 Exam Type: CA echo dop bubble study w con Complete two-dimentional, color flow and Doppler transthoracic echocardiogram is performed with agitated saline and with contrast to opacify the left ventricle and to improve the delineation of the left ventricle endocardial borders. Staff Referring Physician: Timo Feldman General Assembler: Jen Davalos Attending Provider: Jeffery Bose Contrast/Agitated Saline Contrast/Ag. Saline: Definity Amount: 2.00 ml Administered By: Jen Davalos Existing IV Access: Yes IV Access Condition: patent with no signs of infiltration Contrast/Ag. Saline: Agitated Saline Amount: 20.00 ml Existing IV Access: Yes IV Access Condition: patent with no signs of infiltration Summary 1. Contrast administered improved wall motion interpretation. 2. Left ventricular chamber dimension is normal. 3. Left ventricular systolic function is normal, estimated at 60-65. 4. The left ventricular diastolic function is grade I diastolic dysfunction. 5. E/e' 10 is mildly elevated. 6. Left atrial chamber dimension is mildly enlarged. 7. 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 Consider MAURICE for better visualization of mass if clinically indicated. 8. Agitated saline injection with and with without valsalva maneuver opacified right side cardiac chambers with few bubbles shunt to left side cardiac chambers suggestive of patent foramen ovale. 9. Suspected patent foramen ovale visualized by 2D and agitated saline imaging but images were suboptimal. 10. The aortic valve is not well visualized. Cannot determine number of aortic valve leaflets. 11. There is moderate aortic valve sclerosis. 12. There is mild aortic valve stenosis based on a peak velocity of 174 cm/s, mean gradient of 6 mmHg, and aortic valve area of 1.8 cm2. Left Ventricle Left ventricular chamber dimension is normal. Left ventricular systolic function is normal, estimated at 60-65. The left ventricular diastolic function is grade I diastolic dysfunction. Contrast administered improved wall motion interpretation. E/e' 10 is mildly elevated. Right Ventricle Right ventricular chamber dimension is normal. Right ventricular systolic function is normal and with normal TAPSE 2.0 cm. Left Atria Left atrial chamber dimension is mildly enlarged. Right Atria Right atrial chamber dimension is normal. 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 Consider MAURICE for better visualization of mass if clinically indicated. Atrial Septum Suspected patent foramen ovale visualized by 2D and agitated saline imaging but images were suboptimal. Agitated saline injection with and with without valsalva maneuver opacified right side cardiac chambers with few bubbles shunt to left side cardiac chambers suggestive of patent foramen ovale. Aortic Valve The aortic valve is not well visualized. Cannot determine number of aortic valve leaflets. There is moderate aortic valve sclerosis. There is mild aortic valve stenosis based on a peak velocity of 174 cm/s, mean gradient of 6 mmHg, and aortic valve area of 1.8 cm2. There is no aortic valve regurgitation. Pulmonic Valve There is no pulmonic regurgitation. Mitral Valve There is no mitral valve stenosis. There is no mitral valve regurgitation. Tricuspid Valve There is no tricuspid valve regurgitation. Pericardium/Pleural There is no pericardial effusion. Inferior Vena Cava Normal inferior vena cava with >50% collapse upon inspiration consistent with normal right atrial pressure, 5 mmHg. Aorta The aortic root size at the sinus of Valsalva is normal. Left Ventricular Outflow Tract Name Value Normal LVOT 2D LVOT Diameter 1.9 cm LVOT Doppler LVOT Peak Velocity 93 cm/s LVOT Peak Gradient 3 mmHg LVOT Mean Gradient 2 mmHg LVOT VTI 18 cm LVOT VTI/AV VTI Ratio 0.6 LVOT Stroke Volume 49 ml LVOT CO 4.0 l/min LVOT CI 2.0 l/min/m2 Mitral Valve Name Value Normal MV Diastolic Function MV E Peak Velocity 88 cm/s MV A Peak Velocity 88 cm/s MV E/A 1.0 MV Decel Time (PW) 207 ms MV Annular TDI MV E/e' (Septal) 12.4 MV E/e' (Lateral) 9.8 MV E/e' (Average) 11.1 Tricuspid Valve Name Value Normal Estimated PAP/RSVP RA Pressure 5 mmHg <=5 TV Annular TDI TV Lateral Harriet s' Velocity 17.4 cm/s >=9.5 Aorta Name Value Normal Ascending Aorta Ao Root Diameter (MM) 3.0 cm Ao Root Diam Index (MM) 1.5 cm/m2 Aortic Valve Name Value Normal AV Doppler AV Peak Velocity 174 cm/s AV Peak Gradient 12 mmHg AV Mean Gradient 6 mmHg AV VTI 27 cm AV Area (Cont Eq VTI) 1.8 cm2 >=3.0 AV Area (Cont Eq Oleg) 1.5 cm2 AV DI (Oleg) 0.54 AV Regurgitation 2D LVOT Area 2.8 cm2 Ventricles Name Value Normal LV Dimensions 2D/MM IVS Diastolic Thickness (2D) 1.0 cm 0.6-1.0 LVID Diastole (2D) 5.7 cm 3.8-5.2 LVIW Diastolic Thickness (2D) 0.9 cm 0.6-0.9 LVID Systole (2D) 3.6 cm 2.2-3.5 LVOT Diameter 1.9 cm LV Mass (2D Cubed) 213.90 g 67.00-162.00 LV Mass Index (2D Cubed) 103 g/m2 43-95 Relative Wall Thickness (2D) 0.31 <=0.42 LV Fractional Shortening/Ejection Fraction 2D/MM LV Fractional Shortening (2D) 36 % 27-45 LV EF (2D Teichholz) 65 % LV Diastolic Volume (4C MOD) 95 ml LV EF (4C MOD) 57 % LV Diastolic Volume (2C MOD) 82 ml LV EF (2C MOD) 53 % LV Diastolic Volume (BP MOD) 88 ml 46-106 LV Diastolic Volume Index (BP MOD) 42 ml/m2 29-61 LV Systolic Volume (BP MOD) 41 ml 14-42 LV Systolic Volume Index (BP MOD) 20 ml/m2 8-24 LV EF (BP MOD) 54 % 54-74 LV Diastolic Length (4C) 8.8 cm LV Systolic Length (4C) 7.4 cm LV Stroke Volume (4C MOD) 54 ml Atria Name Value Normal LA Dimensions LA Dimension (MM) 3.6 cm 2.7-3.8 LA Volume (4C A-L) 75 ml LA Volume (BP A-L) 74 ml RA Dimensions RA Area (4C) 21.0 cm2 <=18.0 Report Signatures
[2025-04-13 05:20] LABS: Hematocrit 37.2 % (37.0-47.0); Hemoglobin 12.5 g/dL (12.0-15.0); Immature Granulocyte Percent A 0.4 % (0-0.5); Lymphocytes Absolute Auto 0.94 K/mm3 (0.9-3.2); Mean Corpuscular HGB Conc 33.6 g/dl (32-36); Mean Corpuscular Hemoglobin 29.5 pg (26-34); Mean Corpuscular Volume 87.7 fl (80-100); Nucleated Red Blood Cells Absolute Auto 0.000 K/mm3 (0.0-0.012); Nucleated Red Blood Cells Perc 0.0 % (0.0-0.2); Platelet Count Result 104 k/mm3 (150-375); Red Blood Count 4.24 M/mm3 (4.2-5.4); White Blood Count 7.3 K/mm3 (4.5-10.0)
[2025-04-13 05:23] LABS: Hemoglobin A1C 6.8 % (<5.7)
[2025-04-13 05:36] LABS: Alanine Aminotransferase 21 U/L (6-35); Albumin Level 3.8 g/dL (3.5-5.1); Alkaline Phosphatase 148 U/L (38-126); Anion Gap 8 mmol/L (4-12); Aspartate Amino Transferase 57 U/L (14-36); Bilirubin,Total 1.5 mg/dL (0.2-1.3); Blood Urea Nitrogen 18 mg/dL (7-17); Calcium 8.5 mg/dL (8.4-10.2); Carbon Dioxide 23 mmol/L (22-30); Chloride 100 mmol/L (98-107); Creatine Kinase 176 U/L (30-135); Estimated CRCL calculation 101 ml/min; Estimated Glomerular Filt Rate > 60; Glucose 129 mg/dL (65-110); Potassium 3.5 mmol/L (3.4-5.0); Sodium 131 mmol/L (137-145); Total Protein 8.8 g/dL (6.3-8.2)
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
--- NOTE | 2025-04-13 09:59 | PCSTNOTE ---
Please refer to the Bedside Swallow Evaluation in the EMR. Please note, silent aspiration cannot be ruled out at bedside. The patient is a 60 year old female admitted with a history of a TBI and Stage 4 CA. Here with a new possible CVA diagnosis and severely garbled speech. Orders received to complete a BSE and r/o aspiration risk. The patient is currently NPO. Oral Mechanism Exam: Extremely limited dentition. Some limited lingual ROM but maybe due to patient still having some confusion with direction following. Labial ROM within functional limits. Still some confusion for following complex directives. Speech is mildly dysarthric but based on nursing report is much improved. [employer]INS[employer]ING F[employer]RICATION SUPERVISOR able to comprehend questions patient answered about self at phrase level 80% of time. The patient was assessed with the following consistencies: 5cc/tsp thin liquid, straw drinks thin liquid, Puree consistencies, and cracker/solid consistency. Oral Stage: Timely oral preparation with 5cc/thin, straw thin and pudding consistency. prolonged time for oral preparation and transit with solids due to significantly limited dentition. Pharyngeal Stage: Patient elevated to 80 degrees c/o back pain when MAINSPRING FABRICATION SUPERVISOR attempted to elevate higher. However, swallow initiation was timely across consistencies with good laryngeal elevation and no CSA aspiration such as coughing, choking, or changes in vocal quality. Recommend 1. Regular Liquids/Level 0 2. Minced and Moist Diet/Level 5 secondary to limited dentition (May consider advancement as patient alertness improves) 3. Upright with meals as tolerated 4. Frequent Observation 5. Speech Consult for Communication evaluation and diet advancement as tolerated.
[2025-04-13] MEDS: ACETAMINOPHEN 325 MG TABLET 650 MG PO (10:36)
--- NOTE | 2025-04-13 13:08 | WPDONCCN ---
Assessment and Plan Assessment and plan (1) Abdominal lymphadenopathy: Code(s): R59.0 - Localized enlarged lymph nodes Status: Acute Assessment and Plan: patient admitted for Altered mental status and incidental findings of prominent upper abdominal lymphadenopathy including a 6.3 x 2.7 cm portacaval lymph node, a 2.1 x 1.8 standard gastrohepatic lymph node and a 3.7 x 2.7 cm aortocaval lymph node. There were no liver masses or pulmonary masses. Oncology is consulted for work up of abdominal lymphadenopathy concerning for metastatic disease. Past medical hx on records states liver cancer but patient is unable to provide any information including treatments or outside oncologist. I am ordering several tumor markers. Hospitalist team to order MRI of liver to assess for primary liver malignancy as CT abd/pelvis was not reliable with artifact. If tumor markers are normal and Liver MRI is normal then patent will need IR guided abdominal lymph node biopsy. HPI Data of Consult Date/Time: 04/13/25 13:09 Requesting Physician: Jeffery Bose MD Primary Care Provider: Nayana Garber, PAAdrianC Consult Narrative Narrative: Farzana Bran is a 60 year old female presented to ER on 04/12/25 for concerns of altered mental status. In the ER a brain CT scan was performed which showed no acute pathology of stroke, hemorrhage or mass. Patient also underwent CT scan of chest/abdomen/pelvis on 04/12/25 which shows finding of prominent upper abdominal lymphadenopathy including a 6.3 x 2.7 cm portacaval lymph node, a 2.1 x 1.8 standard gastrohepatic lymph node and a 3.7 x 2.7 cm aortocaval lymph node. There were no liver masses or pulmonary masses. Oncology is consulted for work up of abdominal lymphadenopathy concerning for metastatic disease EXAMINATION: CT chest abdomen pelvis w con DATE: 04/12/2025 15:38 COMPARISON: None FINDINGS: CHEST CT: Mild dependent atelectasis at the posterior lateral right upper and lower lobes and to lesser degree in the posterior medial left lower lobe. Calcified right lower lobe nodules and calcified right hilar lymph nodes consistent with old granulomatous disease. No pneumonia, pulmonary edema or pleural effusion. Heart size is normal. Atherosclerotic coronary artery calcifications. No pericardial effusion. Thoracic aorta is normal in caliber with no dissection. No pathologically enlarged thoracic lymphadenopathy. Likely benign 1 cm hypodense right thyroid nodule. Partially visualized instrumented cervicothoracic posterior spinal fusion. Moderate to severe thoracic spondylosis. ABDOMEN/PELVIS CT: Evaluation of the abdomen is limited in places by streak artifact from cardiac monitoring leads in the patient's arms which are at the patient's side. Heterogeneous hepatic attenuation/enhancement particularly on the right hepatic lobe which could be related to cirrhosis with nodular liver surface. No clearly defined hepatic mass to suggest malignancy however assessment is limited due to the background liver disease and streak artifact. There is a 2.3 cm low-attenuation likely cyst at the dome of the liver. Multiple small gallstones the dependent fundus of the normal-appearing gallbladder with no wall thickening or pericholecystic infiltrate stranding to suggest acute cholecystitis. Splenomegaly measuring 17.1 cm in length suggestive of pulmonary venous hypertension related to cirrhosis. There are multiple splenic calcific lesions consistent with old granulomatous disease. Pancreas, bilateral adrenal glands and kidneys are normal. There is excreted contrast in the bilateral renal collecting systems and ureters. Evaluation of the pelvis is further limited by dense metallic streak artifact from a right total hip arthroplasty as well as motion artifact. No bowel obstruction. Bladder and uterus are unremarkable. No free intraperitoneal gas or fluid. Prominent upper abdominal lymphadenopathy including a 6.3 x 2.7 cm portacaval lymph node, a 2.1 x 1.8 standard gastrohepatic lymph node and a 3.7 x 2.7 cm aortocaval lymph node. Lumbar dextrocurvature with severe spondylosis. IMPRESSION: 1. Cirrhotic liver with heterogeneous enhancement primarily in the right hepatic lobe likely related to cirrhosis. No discrete hepatic mass is identified however sensitivity is decreased by the background liver disease and streak artifact from patient's arms which were at the patient's side during scanning. Given history of reported known liver cancer would recommend correlation with any prior outside imaging. Alternatively repeat imaging could be obtained with dedicated multiphase pre and postcontrast CT or MRI when patient is able to hold still. 2. Multiple enlarged upper abdominal lymph nodes which are concerning for metastatic disease. 3. Splenomegaly consistent with portal venous hypertension secondary to cirrhosis. 4. Cholelithiasis. Review of Systems Review of Systems: Patient is resting comfortably on bed, able to open eyes to command but unable to provide any ROS. [facility] Past Medical History Medical History Cervical vertebral fusion TBI (traumatic brain injury) Family History Family History Other Cerebrovascular accident Diabetes mellitus Family history of cardiovascular disease Family history of malignant neoplasm Hypertension Social History Social History Smoking packs per day: 0.1 Smoking cigarettes per day: 2.0 Years smoked: 40 Smoking pack-years: 4.00 Smoking status: Current every day smoker Tobacco type: cigarettes Alcohol intake: unknown Substance use: current Substance use type: marijuana Other substance usage details: unknown Lack of Transportation: No Lack of Food: Never True Current Housing: I Have Housing Concerned About Future Housing: No Difficulty Paying Gas/Electric Bills: No Difficulty Paying for Meds: No Currently Unemployed: No Education: High School Diploma/GED Difficulty w/ Childcare or Family Care: No Spiritual care concerns: No Meds Home Medications and Allergies Home Medications ?Medication ?Instructions ?Recorded ?Confirmed ?Type cyclobenzaprine 10 mg tablet 10 mg PO BID 05/23/23 04/12/25 History gabapentin 300 mg capsule 300 mg PO BID 05/23/23 04/12/25 History glipizide 10 mg tablet 10 mg PO BID 05/23/23 04/12/25 History insulin detemir U-100 100 unit/mL 12 unit subcut HS 05/23/23 04/12/25 History (3 mL) subcutaneous pen meloxicam 15 mg tablet 15 mg PO HS 05/23/23 04/12/25 History esomeprazole magnesium 40 mg 40 mg PO Q24H 04/12/25 04/12/25 History capsule,delayed release methocarbamol 500 mg tablet 1,000 mg PO QID 04/12/25 04/12/25 History omeprazole 40 mg capsule,delayed 40 mg PO DAILY 04/12/25 04/12/25 History release Allergies Allergy/AdvReac Type Severity Reaction Status Date / Time naproxen Allergy Unknown Hives Verified 11/15/24 13:06 Vital Signs Vital Signs - 24 hr 04/12/25 13:23 04/12/25 13:29 04/12/25 13:30 Temperature 37.0 C Pulse Rate 100 101 H 100 Respiratory Rate 21 H 19 20 Blood Pressure 154/69 H 154/69 H Pulse Oximetry 98 95 97 Oxygen Delivery Room Air 04/12/25 13:45 04/12/25 14:01 04/12/25 14:08 Temperature Pulse Rate 107 H 104 H Respiratory Rate 24 H 21 H Blood Pressure Pulse Oximetry 96 Oxygen Delivery Room Air 04/12/25 14:15 04/12/25 14:18 04/12/25 14:31 Temperature Pulse Rate 105 H 104 H 106 H Respiratory Rate 27 H 21 H 17 Blood Pressure 154/69 H Pulse Oximetry 96 98 Oxygen Delivery 04/12/25 14:32 04/12/25 14:45 04/12/25 15:03 Temperature Pulse Rate 101 H 107 H 100 Respiratory Rate 20 21 H 18 Blood Pressure 150/66 H Pulse Oximetry 96 97 100 Oxygen Delivery 04/12/25 15:30 04/12/25 15:31 04/12/25 15:45 Temperature Pulse Rate 99 101 H 99 Respiratory Rate 20 20 18 Blood Pressure 148/56 H Pulse Oximetry 99 Oxygen Delivery 04/12/25 16:00 04/12/25 16:01 04/12/25 16:16 Temperature Pulse Rate 101 H 101 H 101 H Respiratory Rate 18 18 17 Blood Pressure 137/71 Pulse Oximetry 100 100 Oxygen Delivery 04/12/25 16:32 04/12/25 16:45 04/12/25 17:32 Temperature Pulse Rate 104 H 100 106 H Respiratory Rate 20 19 21 H Blood Pressure 123/55 L Pulse Oximetry 98 100 Oxygen Delivery 04/12/25 20:00 04/12/25 20:00 04/12/25 20:36 Temperature 36.3 C L Pulse Rate 95 92 Respiratory Rate 16 Blood Pressure 154/68 H Pulse Oximetry 100 Oxygen Delivery Room Air 04/12/25 23:57 04/13/25 00:00 04/13/25 03:57 Temperature 36.2 C L 36.1 C L Pulse Rate 95 94 94 Respiratory Rate 18 16 Blood Pressure 164/62 H 156/67 H Pulse Oximetry 100 92 Oxygen Delivery 04/13/25 04:00 04/13/25 08:42 04/13/25 12:53 Temperature 36.4 C 36.4 C Pulse Rate 97 97 94 Respiratory Rate 16 16 Blood Pressure 144/63 H 138/51 L Pulse Oximetry 93 96 Oxygen Delivery Exam Narrative: GENERAL: Arousable, no acute distress, appears more than stated age, HEENT: PERRL, EOMI, no scleral icterus NECK: Supple. No meningeal signs. RESPIRATORY: CTAB CARDIOVASCULAR: RRR, no m/g/r ABDOMINAL: Soft, no appreciable tenderness, nondistended. Normoactive BS. MUSCULOSKELETAL: Moves all extremities. No gross deformities. SKIN: Warm, dry, normal color. Chronic ulcerative wounds to L medial lower leg, minimal surrounding erythema. No drainage. NEURO: arousable to voice command but is not following commands or answering questions. Results Labs 04/13/25 04:59 04/13/25 04:59 Labs: Short CBC 04/12/25 04/13/25 Range/Units 14:05 04:59 WBC 8.3 7.3 (4.5-10.0) K/mm3 Hgb 13.0 12.5 (12.0-15.0) g/dL Hct 38.9 37.2 (37.0-47.0) % Plt Count 100 L 104 L (150-375) k/mm3 BMP 04/12/25 04/13/25 14:05 04:59 Sodium 132 L 131 L Potassium 4.0 3.5 Chloride 99 100 Carbon Dioxide 20 L 23 BUN 17 18 H Creatinine 0.67 L 0.58 L Glucose 247 H 129 H Calcium 9.2 8.5 Cardiac Enzymes 04/12/25 04/13/25 Range/Units 14:05 04:59 Total Creatine Kinase 154 H 176 H (30-135) U/L Troponin I < 0.012 (0.000-0.034) ng/mL Liver Function 04/12/25 04/13/25 Range/Units 14:05 04:59 Total Bilirubin 1.5 H 1.5 H (0.2-1.3) mg/dL AST 67 H 57 H (14-36) U/L ALT 30 21 (6-35) U/L Alkaline Phosphatase 158 H 148 H (38-126) U/L Albumin 4.2 3.8 (3.5-5.1) g/dL Urine 04/12/25 Range/Units 13:46 Urine Color Dark yellow (Yellow) Urine Appearance Cloudy H (Clear) Urine pH 5.5 (5.0-9.0) Ur Specific [place] 1.028 (1.001-1.035) Urine Protein 3+ H (Negative) mg/dL Urine Glucose (UA) Trace H (Negative) mg/dL
[2025-04-13] MEDS: PERFLUTREN LIPID MICROSPHERES 1.5 ML VIAL DILUTED TO 10 ML TOTAL VOLUME IV PUSH (14:30)
--- NOTE | 2025-04-13 14:41 | IVDEFINITY ---
Prior to administration of IV Definity the patient was educated on the risks and benefits of the imaging enhancing agent including potential adverse side effects. The patient verbalized understanding. Allergies were verified. No exclusion criteria were identified and at least one of the following inclusion criteria were met: 1) physician request, 2) patient technically difficult to image (per the [place] [employer] guidelines of two or more segments not discernable within the apical view), or 3) questionable left ventricular function. ?
[2025-04-13 15:44] LABS: Carcinoembryonic Antigen 4.1 ng/mL (0.0-3.0)
--- NOTE | 2025-04-13 18:00 | WPDNEURCNPN ---
Assessment and Plan Assessment and plan (1) Altered mental status: Qualifiers: Altered mental status type: unspecified Qualified Code(s): R41.82 - Altered mental status, unspecified Code(s): R41.82 - Altered mental status, unspecified Status: Acute (2) Amphetamine use: Code(s): F15.90 - Other stimulant use, unspecified, uncomplicated Status: Acute (3) T2DM (type 2 diabetes mellitus): Code(s): E11.9 - Type 2 diabetes mellitus without complications Status: Acute (4) History of liver cancer: Code(s): Z85.05 - Personal history of malignant neoplasm of liver Status: Acute (5) Tobacco dependence: Code(s): F17.200 - Nicotine dependence, unspecified, uncomplicated Status: Acute Plan Patient mental status is improving however she has multiple problems including liver cancer with metastasis to lymph node for which she is being evaluated by oncologist. CT angiogram of head and neck show any large vessel occlusion however there is stenosis of the vertebral arteries. The 35% narrowing of the right carotid bowel and possible significant stenosis of the vertebral arteries on both sides. MRI of the brain is pending. 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 She also history of diabetes mellitus. We should follow up the results MRI of the brain. Her speech was very garbled initially and but has now improved. There is also reference to use of amphetamine and cannabis. Her urinalysis was positive for ketones and protein.. She appears to have multiple concurrent medical problems that require addressing. Consult date: 04/13/25 HPI: Farzana Bran is a 60 year old female who presented to the hospital with the altered mental status. His speech was garbled. 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 She is being evaluated by oncologist here however she has been to see an outside oncologist in past. There is also history of diabetes mellitus. Upon presentation in view of the speech disturbance she underwent a CT scan of brain and CT angiogram head and neck which did not show any large vessel occlusion or any acute findings in the CT scan of brain. There is evidence of vertebral artery stenosis. Toxicology was positive for cannabis and amphetamine. Patient also gives a history of a traumatic injury leading to fracture of the cervical spine and weakness in her hands particular on the right side. It was noted that she was found to her abdominal lymphadenopathy. Her liver enzymes are mildly abnormal. Scan the abdomen has shown cirrhosis of liver and enlargement of spleen. She had amputation of big toe on the right side on account of infection. Patient lives alone. [facility] Past Medical History Medical History Cervical vertebral fusion TBI (traumatic brain injury) Family History Family History Other Cerebrovascular accident Diabetes mellitus Family history of cardiovascular disease Family history of malignant neoplasm Hypertension Social History Social History Smoking packs per day: 0.1 Smoking cigarettes per day: 2.0 Years smoked: 40 Smoking pack-years: 4.00 Smoking status: Current every day smoker Tobacco type: cigarettes Alcohol intake: unknown Substance use: current Substance use type: marijuana Other substance usage details: unknown Lack of Transportation: No Lack of Food: Never True Current Housing: I Have Housing Concerned About Future Housing: No Difficulty Paying Gas/Electric Bills: No Difficulty Paying for Meds: No Currently Unemployed: No Education: High School Diploma/GED Difficulty w/ Childcare or Family Care: No Spiritual care concerns: No Meds Home Medications and Allergies Home Medications ?Medication ?Instructions ?Recorded ?Confirmed ?Type cyclobenzaprine 10 mg tablet 10 mg PO BID 05/23/23 04/12/25 History gabapentin 300 mg capsule 300 mg PO BID 05/23/23 04/12/25 History glipizide 10 mg tablet 10 mg PO BID 05/23/23 04/12/25 History insulin detemir U-100 100 unit/mL 12 unit subcut HS 05/23/23 04/12/25 History (3 mL) subcutaneous pen meloxicam 15 mg tablet 15 mg PO HS 05/23/23 04/12/25 History esomeprazole magnesium 40 mg 40 mg PO Q24H 04/12/25 04/12/25 History capsule,delayed release methocarbamol 500 mg tablet 1,000 mg PO QID 04/12/25 04/12/25 History omeprazole 40 mg capsule,delayed 40 mg PO DAILY 04/12/25 04/12/25 History release Allergies Allergy/AdvReac Type Severity Reaction Status Date / Time naproxen Allergy Unknown Hives Verified 11/15/24 13:06 Vital Signs Vital Signs - 24 hr 04/12/25 20:00 04/12/25 20:00 04/12/25 20:36 Temperature 97.4 F L Pulse Rate 95 92 Respiratory Rate 16 Blood Pressure 154/68 H Pulse Oximetry 100 Oxygen Delivery Room Air 04/12/25 23:57 04/13/25 00:00 04/13/25 03:57 Temperature 97.2 F L 97.0 F L Pulse Rate 95 94 94 Respiratory Rate 18 16 Blood Pressure 164/62 H 156/67 H Pulse Oximetry 100 92 Oxygen Delivery 04/13/25 04:00 04/13/25 08:42 04/13/25 10:10 Temperature 97.6 F Pulse Rate 97 97 Respiratory Rate 16 Blood Pressure 144/63 H Pulse Oximetry 93 96 Oxygen Delivery Room Air 04/13/25 12:53 04/13/25 17:08 Temperature 97.6 F 97.3 F L Pulse Rate 94 90 Respiratory Rate 16 16 Blood Pressure 138/51 L 119/50 L Pulse Oximetry 96 98 Oxygen Delivery Exam Narrative: Fully conscious alert oriented to self time place and person. No aphasia or dysarthria. Examination head and neck shows no evidence of external trauma. Carotid arteries are palpable. No carotid bruit. Heart sounds were normal. Cranial nerves pupils were equal react to light. Visual chacko and extraocular movements are intact. There is no facial asymmetry. Facial sensation intact. Other cranial nerves within normal limits for motor system normal strength in both upper and lower limbs showsr she has hammertoe deformity on the left side and amputation of the great toe on the right side. There is mild weakness distally in both lower limbs and weakness of the right hand. She is unable to extend her her digits on the right hand due to previous injury to cervical spine for which she has cervical spine fusion. Results Labs 04/13/25 04:59 04/13/25 04:59 Labs: Short CBC 04/13/25 Range/Units 04:59 WBC 7.3 (4.5-10.0) K/mm3 Hgb 12.5 (12.0-15.0) g/dL Hct 37.2 (37.0-47.0) % Plt Count 104 L (150-375) k/mm3 BMP 04/13/25 04:59 Sodium 131 L Potassium 3.5 Chloride 100 Carbon Dioxide 23 BUN 18 H Creatinine 0.58 L Glucose 129 H Calcium 8.5 Cardiac Enzymes 04/13/25 Range/Units 04:59 Total Creatine Kinase 176 H (30-135) U/L Liver Function 04/13/25 Range/Units 04:59 Total Bilirubin 1.5 H (0.2-1.3) mg/dL AST 57 H (14-36) U/L ALT 21 (6-35) U/L Alkaline Phosphatase 148 H (38-126) U/L Albumin 3.8 (3.5-5.1) g/dL
[2025-04-13] MEDS: INSULIN GLARGINE (*BKC) 100 UNITS/ML 22 UNITS SUB-Q (20:52)
[2025-04-14] VITALS (16 sets, daily range): BP systolic 123–139; BP diastolic 55–76; PULSE 78–93; RESP 17–19; TEMP 36.3–37.6; O2SAT 95–100; BMI 31.8
--- NOTE | 2025-04-14 | ECHO_ITS ---
Patient Info Name: Farzana Bran Age: 60 years : 1965 Gender: Female Ht: 66 in Wt: 107 lbs BSA: 1.49 m2 Technical Quality: Good Exam Date: 04/14/2025 8:20 AM Patient Status: I Admit Date: 04/13/2025 Exam Type: CA echo transesophageal Complete two-dimensional, color flow and Doppler transesophageal study is performed. Staff Referring Physician: Emerald Vences Molder Apprentice: Dorothy Foreman Attending Provider: Jeffery Bose Summary 1. Left ventricular chamber dimension is normal. 2. Left ventricular systolic function is normal with an ejection fraction of 60-65% by visual estimation. 3. There is mild concentric increased left ventricular wall thickness. 4. The left ventricular diastolic function is indeterminate as it was not assessed. 5. 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 Recommend CT surgery evaluation for resection. 6. Agitated saline injection opacified right side cardiac chambers with shunt to left side cardiac chambers suggestive of patent foramen ovale. 7. There is trace mitral valve regurgitation. Procedure Details Risks/benefits/alternative to MAURICE discuss with patient and she gave informed consent. She was monitored electrocardiographically, vitals and pulse ox. She was in sinus rhythm, HR 75 bpm, BP 125/80 mmHg, pulse ox 100%. Cetacaine spray x 1 to posterior oropharynx. Fentanyl 25 mcg and Versed 3 mg IV for conscious sedation. She swallowed probe without incident. Multiple images were obtained. Agitated saline injection x1. MAURICE probe withdrawn and no blood noted on MAURICE probe tip. She tolerated procedure well with no complications. Left Ventricle Left ventricular chamber dimension is normal. Left ventricular systolic function is normal with an ejection fraction of 60-65% by visual estimation. There is mild concentric increased left ventricular wall thickness. The left ventricular diastolic function is indeterminate as it was not assessed. Right Ventricle Right ventricular chamber dimension is normal. Right ventricular systolic function is normal. Left Atria Left atrial chamber dimension is normal. Right Atria Right atrial chamber dimension is normal. 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 Recommend CT surgery evaluation for resection. Atrial Septum Suspected patent foramen ovale visualized by 2D and agitated saline imaging. Agitated saline injection opacified right side cardiac chambers with shunt to left side cardiac chambers suggestive of patent foramen ovale. Atrial Appendage There is no thrombus visualized in the left atrial appendage. Aortic Valve The aortic valve is trileaflet. There is no aortic valve stenosis. There is no aortic valve regurgitation. Pulmonic Valve There is no pulmonic regurgitation. Mitral Valve There is no mitral valve stenosis. There is trace mitral valve regurgitation. Tricuspid Valve There is no tricuspid valve regurgitation. Pericardium/Pleural There is no pericardial effusion. Inferior Vena Cava Inferior vena cava is not well visualized. Aorta The aortic root size at the sinus of Valsalva is normal. Report Signatures
[2025-04-14] MEDS: ACETAMINOPHEN 325 MG TABLET 650 MG PO (04:10)
[2025-04-14 06:00] LABS: Hematocrit 39.4 % (37.0-47.0); Hemoglobin 13.3 g/dL (12.0-15.0); Immature Granulocyte Percent A 0.5 % (0-0.5); Immature Platelet Fraction Pct 1.3 % (0.9-11.2); Lymphocytes Absolute Auto 1.07 K/mm3 (0.9-3.2); Mean Corpuscular HGB Conc 33.8 g/dl (32-36); Mean Corpuscular Hemoglobin 29.4 pg (26-34); Mean Corpuscular Volume 87.2 fl (80-100); Nucleated Red Blood Cells Absolute Auto 0.000 K/mm3 (0.0-0.012); Nucleated Red Blood Cells Perc 0.0 % (0.0-0.2); Platelet Count Result 119 k/mm3 (150-375); Red Blood Count 4.52 M/mm3 (4.2-5.4); White Blood Count 6.2 K/mm3 (4.5-10.0)
[2025-04-14 06:40] LABS: Alanine Aminotransferase 20 U/L (6-35); Albumin Level 3.7 g/dL (3.5-5.1); Alkaline Phosphatase 172 U/L (38-126); Anion Gap 8 mmol/L (4-12); Aspartate Amino Transferase 56 U/L (14-36); Bilirubin,Total 1.3 mg/dL (0.2-1.3); Blood Urea Nitrogen 22 mg/dL (7-17); Calcium 8.6 mg/dL (8.4-10.2); Carbon Dioxide 24 mmol/L (22-30); Chloride 102 mmol/L (98-107); Estimated CRCL calculation 92 ml/min; Estimated Glomerular Filt Rate > 60; Glucose 140 mg/dL (65-110); Potassium 3.2 mmol/L (3.4-5.0); Sodium 134 mmol/L (137-145); Total Protein 8.8 g/dL (6.3-8.2)
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
--- NOTE | 2025-04-14 07:50 | PM.CNCAR ---
Assessment and Plan Assessment and plan (1) Right atrial mass: Code(s): I51.89 - Other ill-defined heart diseases Status: Acute Assessment and Plan: Discuss risks/benefits/alternative to MAURICE and she is agreeable to it. (2) Tobacco dependence: Code(s): F17.200 - Nicotine dependence, unspecified, uncomplicated Status: Acute Assessment and Plan: Counseled regarding smoking cessation. (3) History of liver cancer: Code(s): Z85.05 - Personal history of malignant neoplasm of liver Status: Acute Assessment and Plan: Followed by oncologist. (4) Altered mental status: Qualifiers: Altered mental status type: unspecified Qualified Code(s): R41.82 - Altered mental status, unspecified Code(s): R41.82 - Altered mental status, unspecified Status: Acute Assessment and Plan: Resolved. Had possible PFO on TTE. (5) Mild aortic stenosis: Code(s): I35.0 - Nonrheumatic aortic (valve) stenosis Status: Acute History of Present Illness History of Present Illness Consult date/time: 04/14/25 07:50 Reason For Visit: AMS/Garbled Speech/Dehydration/Amphetamine Use Narrative: 60 yr old woman presented to hospital with altered mental status. 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 Reports her family members noted she was confused and altered speech but since being here she is no longer confused and speech is back to normal. States she can walk around her house without any problems and thinks she can walk at least a block but has not tried. She smokes 1/2 ppd. Denies chest pain, sob, orthopnea, PND, edema, dizziness, palpitations. Review of Systems Review of Systems: All systems reviewed & are unremarkable except as noted in HPI and below Constitutional: Constitutional: Reports as per HPI, Denies chills and Denies fever(s) Cardiovascular: Cardiovascular: Reports as per HPI, Denies chest pain and Denies irregular heart rhythm Respiratory: Respiratory: Reports as per HPI and Denies dyspnea Gastrointestinal: Gastrointestinal: Reports as per HPI and Denies abdominal pain Genitourinary: Genitourinary: Reports as per HPI and Denies dysuria Musculoskeletal: Musculoskeletal: Reports as per HPI Neurologic: Reports as per HPI, Denies dizziness and Denies syncope [facility] Past Medical History Medical History Cervical vertebral fusion TBI (traumatic brain injury) Family History Family History Other Cerebrovascular accident Diabetes mellitus Family history of cardiovascular disease Family history of malignant neoplasm Hypertension Social History Social History Smoking packs per day: 0.1 Smoking cigarettes per day: 2.0 Years smoked: 40 Smoking pack-years: 4.00 Smoking status: Current every day smoker Tobacco type: cigarettes Alcohol intake: unknown Substance use: current Substance use type: marijuana Other substance usage details: unknown Lack of Transportation: No Lack of Food: Never True Current Housing: I Have Housing Concerned About Future Housing: No Difficulty Paying Gas/Electric Bills: No Difficulty Paying for Meds: No Currently Unemployed: No Education: High School Diploma/GED Difficulty w/ Childcare or Family Care: No Spiritual care concerns: No Meds Home Medications and Allergies Home Medications ?Medication ?Instructions ?Recorded ?Confirmed ?Type cyclobenzaprine 10 mg tablet 10 mg PO BID 05/23/23 04/12/25 History gabapentin 300 mg capsule 300 mg PO BID 05/23/23 04/12/25 History glipizide 10 mg tablet 10 mg PO BID 05/23/23 04/12/25 History insulin detemir U-100 100 unit/mL 12 unit subcut HS 05/23/23 04/12/25 History (3 mL) subcutaneous pen meloxicam 15 mg tablet 15 mg PO HS 05/23/23 04/12/25 History esomeprazole magnesium 40 mg 40 mg PO Q24H 04/12/25 04/12/25 History capsule,delayed release methocarbamol 500 mg tablet 1,000 mg PO QID 04/12/25 04/12/25 History omeprazole 40 mg capsule,delayed 40 mg PO DAILY 04/12/25 04/12/25 History release Allergies Allergy/AdvReac Type Severity Reaction Status Date / Time naproxen Allergy Unknown Hives Verified 11/15/24 13:06 Vital Signs Vital Signs - 24 hr 04/13/25 08:00 04/13/25 08:42 04/13/25 10:10 Temperature 97.6 F Pulse Rate 96 97 Respiratory Rate 16 Blood Pressure 144/63 H Pulse Oximetry 93 96 Oxygen Delivery Room Air 04/13/25 12:00 04/13/25 12:53 04/13/25 16:00 Temperature 97.6 F Pulse Rate 88 94 82 Respiratory Rate 16 Blood Pressure 138/51 L Pulse Oximetry 96 Oxygen Delivery 04/13/25 17:08 04/13/25 20:00 04/13/25 20:00 Temperature 97.3 F L 97.5 F L Pulse Rate 90 89 Respiratory Rate 16 16 Blood Pressure 119/50 L 155/92 H Pulse Oximetry 98 100 Oxygen Delivery Room Air 04/13/25 20:00 04/13/25 23:59 04/14/25 00:00 Temperature 97.7 F Pulse Rate 84 86 83 Respiratory Rate 18 Blood Pressure 123/55 L Pulse Oximetry 95 Oxygen Delivery 04/14/25 04:00 04/14/25 04:00 Temperature 99.7 F H Pulse Rate 84 90 Respiratory Rate 18 Blood Pressure 139/61 Pulse Oximetry 95 Oxygen Delivery Exam Const: General: cooperative, healthy appearing and comfortable Resp: Auscultation: clear to auscultation bilaterally, no crackles, no rales, no rhonchi and no wheezes Cardio: Rate: regular rate Rhythm: regular rhythm Heart sounds: Murmur heart sound present (II/ systolic murmur RICS) Peripheral pulses: dorsalis pedis present GI: GI Palp: No abdominal tenderness and Yes Soft to palpation Neuro: General: oriented to person, oriented to place and oriented to time Extrem: Right lower extremity: no edema Left lower extremity: no edema Results Labs and Meds 04/14/25 05:42 04/14/25 05:42 Lab results: Cardiac Enzymes 04/14/25 Range/Units 05:42 AST 56 H (14-36) U/L CBC 04/14/25 Range/Units 05:42 WBC 6.2 (4.5-10.0) K/mm3 RBC 4.52 (4.2-5.4) M/mm3 Hgb 13.3 (12.0-15.0) g/dL Hct 39.4 (37.0-47.0) % Plt Count 119 L (150-375) k/mm3 Lymph # (Auto) 1.07 (0.9-3.2) K/mm3 [place] # (Auto) 0.8 H (0.1-0.6) K/mm3 Eos # (Auto) 0.1 (0-0.3) K/mm3 Baso # (Auto) 0.0 (0.0-0.1) K/mm3 Comprehensive Metabolic Panel 04/14/25 Range/Units 05:42 Sodium 134 L (137-145) mmol/L Potassium 3.2 L (3.4-5.0) mmol/L Chloride 102 (98-107) mmol/L Carbon Dioxide 24 (22-30) mmol/L BUN 22 H (7-17) mg/dL Creatinine 0.64 L (0.7-1.0) mg/dL Glucose 140 H (65-110) mg/dL Calcium 8.6 (8.4-10.2) mg/dL AST 56 H (14-36) U/L ALT 20 (6-35) U/L Alkaline Phosphatase 172 H (38-126) U/L Total Protein 8.8 H (6.3-8.2) g/dL Albumin 3.7 (3.5-5.1) g/dL Intake and Output 04/13/25 04/13/25 04/14/25 15:59 23:59 07:59 Intake Total 330 300 Output Total 750 350 Balance 330 -450 -350 Intake: Oral 330 300 Output: Catheter Urine 750 350 External/Condom 750 350 Other: # Unmeasured Voids 1 1 1
--- NOTE | 2025-04-14 08:21 | WPDGICN ---
Assessment and Plan Assessment and plan (1) Cirrhosis: Qualifiers: Ascites presence: without ascites Hepatic cirrhosis type: unspecified hepatic cirrhosis Qualified Code(s): K74.60 - Unspecified cirrhosis of liver Code(s): K74.60 - Unspecified cirrhosis of liver Status: Acute (2) Splenomegaly: Code(s): R16.1 - Splenomegaly, not elsewhere classified Status: Acute (3) Thrombocytopenia: Code(s): D69.6 - Thrombocytopenia, unspecified Status: Acute (4) Elevated LFTs: Code(s): R79.89 - Other specified abnormal findings of blood chemistry Status: Acute (5) Portal hypertension: Code(s): K76.6 - Portal hypertension Status: Acute (6) Cholelithiasis: Qualifiers: Biliary obstruction: without biliary obstruction Cholecystitis presence: without cholecystitis Cholelithiasis location: gallbladder Qualified Code(s): K80.20 - Calculus of gallbladder without cholecystitis without obstruction Code(s): K80.20 - Calculus of gallbladder without cholecystitis without obstruction Status: Acute (7) Liver cancer: Qualifiers: Liver malignancy type: unspecified liver malignancy Qualified Code(s): C22.9 - Malignant neoplasm of liver, not specified as primary or secondary Code(s): C22.9 - Malignant neoplasm of liver, not specified as primary or secondary Status: Acute Plan 1. Cirrhosis/splenomegaly/portal hypertension/thrombocytopenia/elevated LFT's/stage 4 liver cancer/lymphadenopathy: Per patient she was diagnosed with stage IV liver cancer approximately 1 year ago at [facility] in [place] but she was unable to provide any further details regarding this diagnosis. CT showing Cirrhotic liver with heterogeneous enhancement primarily in the right hepatic lobe likely related to cirrhosis. No discrete hepatic mass is identified however sensitivity is decreased by the background liver disease and streak artifact from patient's arms which were at the patient's side during scanning, multiple enlarged upper abdominal lymph nodes which are concerning for metastatic disease (prominent upper abdominal lymphadenopathy including a 6.3 x 2.7 cm portacaval lymph node, a 2.1 x 1.8 standard gastrohepatic lymph node and a 3.7 x 2.7 cm aortocaval lymph node) and splenomegaly consistent with portal venous hypertension secondary to cirrhosis. Patient with intermittent LFT elevation and low platelets since 2022 but ALT has remained normal. Labs today show total bilirubin 1.3, AST 56, ALT 20, Alk Phos 172, albumin 3.7, platelets 119 and INR normal at 1.2 on 04/12. CEA 4.1 and CA 19-9 and CA 125 ordered with results pending. Oncology on case with plan that is liver MRI and tumor markers are normal she will need IR guided abdominal lymph node biopsy. liver work up ordered to rule out chronic liver etiology including PBC or PSC no biliary ductal dilation noted on imaging but LFT's more consistent with cholestasis given ALT has remained normal, MRI pending above issues are likely related to known liver cancer 2. Cholelithiasis: Multiple small gallstones the dependent fundus of the normal-appearing gallbladder with no wall thickening or pericholecystic infiltrate stranding to suggest acute cholecystitis. No signs of biliary obstruction or ductal dilation. Patient asymptomatic. will take a more observational approach unless MRI findings warrant endoscopic evaluation Thank you very much for allowing me to share in the care of this very nice patient. This report may have been done utilizing a voice recognition system. Attempts have been made to correct errors. However, there may be uncorrected grammatical, spelling, and recognition errors present. GI Consult Note Consult date/time: 04/14/25 08:21 Reason for consult: Portal hypertension and cirrhosis HPI: Farzana Bran is a 60 year old female with PMSH of diabetes, liver cancer with mets, methamphetamine use, marijuana use, GERD, TBI and cervical vertebral fusion. She presented to the ER 04/12/2025 with complaints of altered mental status and slurred speech. GI has been consulted for portal hypertension and cirrhosis. Per RN patient's son who initially found the patient with altered mental status noted that the patient had been using methamphetamines prior to admission. During today's visit she denies any GI complaints. She states she has not had a bowel movement since admission. Per patient she was diagnosed with stage IV liver cancer at [facility] approximately 1 year ago but was unable to provide any further details. Patient denies abdominal pain, nausea, vomiting, bloating, odynophagia, dysphagia, reflux, regurgitation, appetite loss, or weight loss. Prior to admission she states she is having regular bowel movements but was unable to provide details regarding bowel habits. Denies diarrhea, constipation, hematochezia, melena, fecal incontinence, or rectal pain. Denies alcohol use. She uses marijuana and methamphetamines. Patient's father had pancreatic cancer. ENDOSCOPY HISTORY: EGD: Per patient she has never had an EGD COLONOSCOPY: Per patient she has never had a colonoscopy LABS AND STOOL STUDIES: Labs 04/14/2025: Sodium 134, potassium 3.2, BUN 22, creatinine 0.64, GFR >60, calcium 8.6 WBC 6, Hgb 13, Hct 39, MCV 87, platelets 119, INR 1.2 (04/12) Total bilirubin 1.3, AST 56, ALT 20, Alkaline Phos 172, albumin 3.7 CEA 4.1 CA 19-9 and CA 125 pending IMAGING: CT chest/abd/pelvis w/contrast 04/12/2025: IMPRESSION: 1. Cirrhotic liver with heterogeneous enhancement primarily in the right hepatic lobe likely related to cirrhosis. No discrete hepatic mass is identified however sensitivity is decreased by the background liver disease and streak artifact from patient's arms which were at the patient's side during scanning. Given history of reported known liver cancer would recommend correlation with any prior outside imaging. Alternatively repeat imaging could be obtained with dedicated multiphase pre and postcontrast CT or MRI when patient is able to hold still. 2. Multiple enlarged upper abdominal lymph nodes which are concerning for metastatic disease. 3. Splenomegaly consistent with portal venous hypertension secondary to cirrhosis. 4. Cholelithiasis. Review of Systems Constitutional: Constitutional: Reports as per HPI ENT: Reports as per HPI Cardiovascular: Cardiovascular: Reports as per HPI, Denies chest pain and Denies dyspnea Respiratory: Respiratory: Denies cough and Denies dyspnea Gastrointestinal: Gastrointestinal: Reports as per HPI Musculoskeletal: Musculoskeletal: Reports as per HPI Integumentary/Breasts: Skin/Breast: Reports as per HPI Psychiatric: Psychiatric: Reports as per HPI Endocrine: Endocrine: Reports no additional endocrine complaints Hematologic/Lymphatic: Hematologic/Lymphatic: Reports no additional hematologic/lymphatic complaints [facility] Past Medical History Medical History Cervical vertebral fusion TBI (traumatic brain injury) Family History Family History Other Cerebrovascular accident Diabetes mellitus Family history of cardiovascular disease Family history of malignant neoplasm Hypertension Social History Social History Smoking packs per day: 0.1 Smoking cigarettes per day: 2.0 Years smoked: 40 Smoking pack-years: 4.00 Smoking status: Current every day smoker Tobacco type: cigarettes Alcohol intake: unknown Substance use: current Substance use type: marijuana Other substance usage details: unknown Lack of Transportation: No Lack of Food: Never True Current Housing: I Have Housing Concerned About Future Housing: No Difficulty Paying Gas/Electric Bills: No Difficulty Paying for Meds: No Currently Unemployed: No Education: High School Diploma/GED Difficulty w/ Childcare or Family Care: No Spiritual care concerns: No Meds Home Medications and Allergies Home Medications ?Medication ?Instructions ?Recorded ?Confirmed ?Type cyclobenzaprine 10 mg tablet 10 mg PO BID 05/23/23 04/12/25 History gabapentin 300 mg capsule 300 mg PO BID 05/23/23 04/12/25 History glipizide 10 mg tablet 10 mg PO BID 05/23/23 04/12/25 History insulin detemir U-100 100 unit/mL 12 unit subcut HS 05/23/23 04/12/25 History (3 mL) subcutaneous pen meloxicam 15 mg tablet 15 mg PO HS 05/23/23 04/12/25 History esomeprazole magnesium 40 mg 40 mg PO Q24H 04/12/25 04/12/25 History capsule,delayed release methocarbamol 500 mg tablet 1,000 mg PO QID 04/12/25 04/12/25 History omeprazole 40 mg capsule,delayed 40 mg PO DAILY 04/12/25 04/12/25 History release Allergies Allergy/AdvReac Type Severity Reaction Status Date / Time naproxen Allergy Unknown Hives Verified 11/15/24 13:06 Vital Signs Vital Signs - 24 hr 04/13/25 08:42 04/13/25 10:10 04/13/25 12:00 Temperature 97.6 F Pulse Rate 97 88 Respiratory Rate 16 Blood Pressure 144/63 H Pulse Oximetry 93 96 Oxygen Delivery Room Air 04/13/25 12:53 04/13/25 16:00 04/13/25 17:08 Temperature 97.6 F 97.3 F L Pulse Rate 94 82 90 Respiratory Rate 16 16 Blood Pressure 138/51 L 119/50 L Pulse Oximetry 96 98 Oxygen Delivery 04/13/25 20:00 04/13/25 20:00 04/13/25 20:00 Temperature 97.5 F L Pulse Rate 89 84 Respiratory Rate 16 Blood Pressure 155/92 H Pulse Oximetry 100 Oxygen Delivery Room Air 04/13/25 23:59 04/14/25 00:00 04/14/25 04:00 Temperature 97.7 F 99.7 F H Pulse Rate 86 83 84 Respiratory Rate 18 18 Blood Pressure 123/55 L 139/61 Pulse Oximetry 95 95 Oxygen Delivery 04/14/25 04:00 Temperature Pulse Rate 90 Respiratory Rate Blood Pressure Pulse Oximetry Oxygen Delivery Exam Const: General: cooperative, comfortable, no acute distress and well developed Orientation/consciousness: oriented to person, oriented to place, oriented to time and patient oriented x3 HENMT: Head: normal to inspection, normocephalic and atraumatic Mouth: Yes Normal oral and palatal mucosa present and Yes moist mucous membranes Eyes: General: appearance normal, both eyes and all related structures Conjunctivae: conjunctivae normal Sclera: sclerae normal Pupils: Equal, round and reactive pupils present Neck: Neck: normal visual inspection Chest: Chest palpation & inspection: normal inspection of the chest Resp: Effort & Inspection: normal respiratory effort and able to speak in complete sentences Auscultation: clear to auscultation bilaterally Cardio: Jugular venous distension: no JVD Rate: regular rate Rhythm: regular rhythm Heart sounds: S1 normal heart sound present and S2 normal heart sound present GI: Inspection: normal to inspection GI Palp: Yes Soft to palpation and Yes No hepatosplenomegaly present Auscultation: normal bowel sounds Rectal Exam: deferred Skin: General skin exam: normal color and no rashes or lesions noted Neuro: General: oriented to person, oriented to place, oriented to time and patient oriented x3 Cranial nerves: Yes Equal, round and reactive pupils present Speech: No normal speech (slow to respond) Extrem: General: normal to inspection and no clubbing, cyanosis or edema Psych: Appearance: grossly normal and well kempt Affect: normal affect Results Labs 04/14/25 05:42 04/14/25 05:42 Labs: Short CBC 04/14/25 Range/Units 05:42 WBC 6.2 (4.5-10.0) K/mm3 Hgb 13.3 (12.0-15.0) g/dL Hct 39.4 (37.0-47.0) % Plt Count 119 L (150-375) k/mm3 BMP 04/14/25 05:42 Sodium 134 L Potassium 3.2 L Chloride 102 Carbon Dioxide 24 BUN 22 H Creatinine 0.64 L Glucose 140 H Calcium 8.6 Liver Function 04/14/25 Range/Units 05:42 Total Bilirubin 1.3 (0.2-1.3) mg/dL AST 56 H (14-36) U/L ALT 20 (6-35) U/L Alkaline Phosphatase 172 H (38-126) U/L Albumin 3.7 (3.5-5.1) g/dL
[2025-04-14] MEDS: fentaNYL CITRATE INJ (*CRX) 100 MCG/2 ML VIAL 25 MCG IV PUSH (08:41)
[2025-04-14] MEDS: MIDAZOLAM HCL (*CRX) 2 MG/2 ML VIAL 3 MG IV PUSH (08:41)
[2025-04-14] MEDS: POTASSIUM CHLORIDE 20 MEQ ER TABLET PO (11:07)
[2025-04-14] MEDS: PREGABALIN (*CRX) 75 MG CAPSULE 150 MG PO ×2 (14:11→21:13)
[2025-04-14] MEDS: INSULIN ASPART (*BKC) 100 UNITS/ML 7 UNITS SUB-Q (14:13)
[2025-04-14] MEDS: INSULIN GLARGINE (*BKC) 100 UNITS/ML 22 UNITS SUB-Q (21:13)
[2025-04-14] MEDS: MELOXICAM 7.5 MG TABLET 15 MG PO (21:13)
[2025-04-15] VITALS (8 sets, daily range): BP systolic 108–135; BP diastolic 58–78; PULSE 85–100; RESP 18; TEMP 36.3–36.7; O2SAT 93–99
[2025-04-15] MEDS: PREGABALIN (*CRX) 75 MG CAPSULE 150 MG PO ×3 (05:43→21:19)
[2025-04-15 05:54] LABS: Hematocrit 39.1 % (37.0-47.0); Hemoglobin 12.8 g/dL (12.0-15.0); Immature Granulocyte Percent A 0.6 % (0-0.5); Lymphocytes Absolute Auto 1.13 K/mm3 (0.9-3.2); Mean Corpuscular HGB Conc 32.7 g/dl (32-36); Mean Corpuscular Hemoglobin 29.0 pg (26-34); Mean Corpuscular Volume 88.7 fl (80-100); Nucleated Red Blood Cells Absolute Auto 0.000 K/mm3 (0.0-0.012); Nucleated Red Blood Cells Perc 0.0 % (0.0-0.2); Platelet Count Result 105 k/mm3 (150-375); Red Blood Count 4.41 M/mm3 (4.2-5.4); White Blood Count 5.2 K/mm3 (4.5-10.0)
[2025-04-15 06:07] LABS: Alanine Aminotransferase 20 U/L (6-35); Albumin Level 3.6 g/dL (3.5-5.1); Alkaline Phosphatase 176 U/L (38-126); Anion Gap 7 mmol/L (4-12); Aspartate Amino Transferase 61 U/L (14-36); Bilirubin,Total 0.9 mg/dL (0.2-1.3); Blood Urea Nitrogen 21 mg/dL (7-17); Calcium 8.8 mg/dL (8.4-10.2); Carbon Dioxide 26 mmol/L (22-30); Chloride 103 mmol/L (98-107); Estimated CRCL calculation 88 ml/min; Estimated Glomerular Filt Rate > 60; Glucose 139 mg/dL (65-110); Potassium 3.7 mmol/L (3.4-5.0); Sodium 136 mmol/L (137-145); Total Protein 8.6 g/dL (6.3-8.2)
--- NOTE | 2025-04-15 07:40 | P.PNCA_ITS ---
Progress Note: A&P Assessment and Plan (1) Right atrial mass: Code(s): I51.89 - Other ill-defined heart diseases Status: Acute Assessment and Plan: This is suggestive of very large atrial myxoma. Discuss with patient that should be evaluated by CT surgeon for resection given the size and to prevent obstruction of flow. She wanted to discuss with her kids first and let us know. If she decides on transfer, given her extensive noncardiac issues, would have hospitalist coordinate transfer to facility of her choice like [facility]. I will sign off, please call with any questions. (2) Tobacco dependence: Code(s): F17.200 - Nicotine dependence, unspecified, uncomplicated Status: Acute Assessment and Plan: Counseled regarding smoking cessation. (3) History of liver cancer: Code(s): Z85.05 - Personal history of malignant neoplasm of liver Status: Acute Assessment and Plan: Followed by oncologist. (4) Altered mental status: Qualifiers: Altered mental status type: unspecified Qualified Code(s): R41.82 - Altered mental status, unspecified Code(s): R41.82 - Altered mental status, unspecified Status: Acute Assessment and Plan: Resolved. Had possible PFO on TTE. Subjective Date/time seen: 04/15/25 07:40 Interval history: Denies chest pain or sob. Exam Const: General: cooperative, healthy appearing and comfortable Orientation/consciousness: oriented to person, oriented to place and oriented to time Resp: Auscultation: clear to auscultation bilaterally, no crackles, no rales, no rhonchi and no wheezes Cardio: Rate: regular rate Rhythm: regular rhythm Heart sounds: Murmur heart sound present (II/ systolic murmur RICS) Peripheral pulses: dorsalis pedis present Neuro: General: oriented to person, oriented to place and oriented to time Extrem: Right lower extremity: no edema Left lower extremity: no edema Objective Data Vital Signs Vital Signs: Vital Signs - 24 hr 04/14/25 08:00 04/14/25 08:00 04/14/25 08:41 Temperature Pulse Rate 85 87 Respiratory Rate 19 Blood Pressure 129/66 Pulse Oximetry 100 100 Oxygen Delivery Room Air Nasal Cannula Oxygen Flow Rate 2 04/14/25 08:46 04/14/25 08:51 04/14/25 08:56 Temperature Pulse Rate 88 90 86 Respiratory Rate 17 19 17 Blood Pressure 136/76 137/69 124/66 Pulse Oximetry 99 100 99 Oxygen Delivery Nasal Cannula Nasal Cannula Nasal Cannula Oxygen Flow Rate 2 2 2 04/14/25 09:00 04/14/25 09:15 04/14/25 09:30 Temperature Pulse Rate 83 84 84 Respiratory Rate 18 17 19 Blood Pressure 136/66 123/63 129/64 Pulse Oximetry 99 95 97 Oxygen Delivery Room Air Room Air Room Air Oxygen Flow Rate 04/14/25 09:47 04/14/25 11:39 04/14/25 12:00 Temperature 97.3 F L Pulse Rate 78 92 Respiratory Rate 18 Blood Pressure 137/61 Pulse Oximetry 95 Oxygen Delivery Room Air Oxygen Flow Rate 04/14/25 14:47 04/14/25 16:00 04/14/25 19:50 Temperature 97.5 F L 98.4 F Pulse Rate 83 84 93 Respiratory Rate 18 18 Blood Pressure 125/55 L 136/65 Pulse Oximetry 100 97 Oxygen Delivery Oxygen Flow Rate 04/14/25 20:00 04/14/25 20:00 04/15/25 00:00 Temperature Pulse Rate 89 89 Respiratory Rate Blood Pressure Pulse Oximetry Oxygen Delivery Room Air Oxygen Flow Rate 04/15/25 04:00 04/15/25 04:00 Temperature 97.5 F L Pulse Rate 89 86 Respiratory Rate 18 Blood Pressure 108/58 L Pulse Oximetry 93 Oxygen Delivery Oxygen Flow Rate Intake/Output Intake/Output: Intake & Output 04/12/25 04/13/25 04/14/25 04/15/25 23:59 23:59 23:59 23:59 Intake Total 2050 630 1030 120 Output Total 101 604 5789 400 Balance 1650 -120 -20 -280 Meds/Results Medications: Active Medications Generic Name Dose Route Start Last Admin Trade Name Freq PRN Reason Stop Dose Admin Acetaminophen 650 mg 04/12/25 16:50 Acetaminophen 650 Mg Suppository RECTAL Q6H PRN Mild Pain (1-3) or Fever Acetaminophen 650 mg 04/13/25 10:25 04/14/25 04:10 Acetaminophen 325 Mg Tablet PO 650 mg Q6H PRN Administration Mild Pain (1-3) or Fever Dextrose 12.5 gm 04/12/25 19:18 Dextrose 50% 25 Gm/50 Ml Syringe IV PUSH PRN PRN Hypoglycemia Protocol Gabapentin 300 mg 04/14/25 21:00 04/14/25 21:13 Gabapentin 300 Mg Capsule PO Not Given Q12HR OLIVIA Glucagon 1 mg 04/12/25 19:18 Glucagon For Inj 1 Mg Vial IM PRN PRN Hypoglycemia Protocol Glucose 15 gm 04/12/25 19:18 Glucose Oral Gel 15 Gm Of Glucse In 37.5 Gm Tube PO PRN PRN Hypoglycemia Protocol Dextrose 1,000 mls @ 100 mls/hr 04/12/25 19:18 Dextrose 5% 1,000 Ml IVPB PRN PRN Hypoglycemia Protocol Insulin Aspart 7 units 04/13/25 08:00 04/14/25 17:24 Insulin Aspart (*Bkc) 100 Units/Ml 0.083 units/kg (7 units) Not Given SUB-Q TIDWM OLIVIA Insulin Glargine 22 units 04/12/25 21:00 04/14/25 21:13 Insulin Glargine (*Bkc) 100 Units/Ml 0.25 units/kg (22 units) 22 units SUB-Q Administration HS OLIVIA Meloxicam 15 mg 04/14/25 21:00 04/14/25 21:13 Meloxicam 7.5 Mg Tablet PO 15 mg HS OLIVIA Administration Methocarbamol 1,000 mg 04/14/25 13:00 04/14/25 21:13 Methocarbamol 500 Mg Tablet PO 1,000 mg QID OLIVIA Administration Pantoprazole Sodium 40 mg 04/15/25 09:00 Pantoprazole 40 Mg Tablet PO QAM OLIVIA Pregabalin 150 mg 04/14/25 14:00 04/15/25 05:43 Pregabalin (*Crx) 75 Mg Capsule PO 150 mg Q8H OLIVIA Administration Radiology Results: ITS Impressions Head CT 04/12/25 14:32 IMPRESSION: 1. Normal brain. No acute intracranial process. Head/Neck CTA 04/12/25 15:43 IMPRESSION: 1. 35% stenosis of the right carotid bulb relative to normal distal artery lumen diameter (NASCET criteria). 2. 0% stenosis of the left carotid bulb relative to normal distal artery lumen diameter. 3. Unremarkable cerebral CT angiogram with no hemodynamically significant stenosis, thrombosis or aneurysm 3. Suggestion of likely hemodynamically significant stenosis at the origins of the left vertebral and dominant right vertebral arteries. Chest/Abdomen/Pelvis CT 04/12/25 16:08 IMPRESSION: 1. Cirrhotic liver with heterogeneous enhancement primarily in the right hepatic lobe likely related to cirrhosis. No discrete hepatic mass is identified however sensitivity is decreased by the background liver disease and streak artifact from patient's arms which were at the patient's side during scanning. Given history of reported known liver cancer would recommend correlation with any prior outside imaging. Alternatively repeat imaging could be obtained with dedicated multiphase pre and postcontrast CT or MRI when patient is able to hold still. 2. Multiple enlarged upper abdominal lymph nodes which are concerning for metastatic disease. 3. Splenomegaly consistent with portal venous hypertension secondary to cirrhosis. 4. Cholelithiasis. Brain MRI 04/14/25 14:46 IMPRESSION: 1. Normal aging brain. No acute intracranial process or abnormally enhancing brain lesions. Labs Labs: Laboratory Results - last 24 hr 04/13/25 04/14/25 04/14/25 14:54 05:39 05:42 WBC RBC Hgb Hct MCV MCH MCHC RDW Plt Count MPV Immature Gran % (Auto) Neut % (Auto) Lymph % (Auto) [place] % (Auto) Eos % (Auto) Baso % (Auto) Lymph # (Auto) [place] # (Auto) Eos # (Auto) Baso # (Auto) Abs Immat Gran (auto) Absolute Neuts (auto) Absolute Nucleated RBC Nucleated RBC % Sodium Potassium Chloride Carbon Dioxide Anion Gap BUN Creatinine Estim Creat Clear Calc Estimated GFR Glucose POC Capillary Glucose Calcium Total Bilirubin Indirect Bilirubin 0.6 AST ALT Alkaline Phosphatase Total Protein Albumin CA 125 Antigen 13.4 PEth 16:0/18.1 (POPEth) Cancelled PEth 16:0/18.2 (PLPEth) Cancelled Misc Test Comment Cancelled 04/14/25 04/14/25 04/14/25 08:01 13:07 16:40 WBC RBC Hgb Hct MCV MCH MCHC RDW Plt Count MPV Immature Gran % (Auto) Neut % (Auto) Lymph % (Auto) [place] % (Auto) Eos % (Auto) Baso % (Auto) Lymph # (Auto) [place] # (Auto) Eos # (Auto) Baso # (Auto) Abs Immat Gran (auto) Absolute Neuts (auto) Absolute Nucleated RBC Nucleated RBC % Sodium Potassium Chloride Carbon Dioxide Anion Gap BUN Creatinine Estim Creat Clear Calc Estimated GFR Glucose POC Capillary Glucose 139 H 241 H 131 H Calcium Total Bilirubin Indirect Bilirubin AST ALT Alkaline Phosphatase Total Protein Albumin CA 125 Antigen PEth 16:0/18.1 (POPEth) PEth 16:0/18.2 (PLPEth) Misc Test Comment 04/14/25 04/15/25 20:01 05:41 WBC 5.2 RBC 4.41 Hgb 12.8 Hct 39.1 MCV 88.7 MCH 29.0 MCHC 32.7 RDW 14.2 Plt Count 105 L MPV 9.2 Immature Gran % (Auto) 0.6 H Neut % (Auto) 61.7 Lymph % (Auto) 21.6 [place] % (Auto) 13.0 H Eos % (Auto) 2.5 Baso % (Auto) 0.6 Lymph # (Auto) 1.13 [place] # (Auto) 0.7 H Eos # (Auto) 0.1 Baso # (Auto) 0.0 Abs Immat Gran (auto) 0.03 Absolute Neuts (auto) 3.2 Absolute Nucleated RBC 0.000 Nucleated RBC % 0.0 Sodium 136 L Potassium 3.7 Chloride 103 Carbon Dioxide 26 Anion Gap 7 BUN 21 H Creatinine 0.67 L Estim Creat Clear Calc 88 Estimated GFR > 60 Glucose 139 H POC Capillary Glucose 196 H Calcium 8.8 Total Bilirubin 0.9 Indirect Bilirubin AST 61 H ALT 20 Alkaline Phosphatase 176 H Total Protein 8.6 H Albumin 3.6 CA 125 Antigen PEth 16:0/18.1 (POPEth) PEth 16:0/18.2 (PLPEth) Misc Test Comment
[2025-04-15] MEDS: PANTOPRAZOLE 40 MG TABLET PO (08:42)
[2025-04-15] MEDS: INSULIN ASPART (*BKC) 100 UNITS/ML 7 UNITS SUB-Q ×3 (08:45→17:32)
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
[2025-04-15 10:08] LABS: GGT 142 IU/L (0-60)
[2025-04-15 10:08] LABS: CA 19-9 89 U/mL (0-35)
--- NOTE | 2025-04-15 15:40 | WPDGIPROGNO ---
Progress Note: A&P Assessment and Plan (1) Liver cancer, primary, with metastasis from liver to other site: Code(s): C22.8 - Malignant neoplasm of liver, primary, unspecified as to type Status: Acute Assessment and Plan: she is already established with oncologist and has received treatment as outpatient (2) Cirrhosis: Qualifiers: Hepatic cirrhosis type: unspecified hepatic cirrhosis Ascites presence: without ascites Qualified Code(s): K74.60 - Unspecified cirrhosis of liver Code(s): K74.60 - Unspecified cirrhosis of liver Status: Acute Assessment and Plan: known cirrhosis and liver cancer based on records she can follow-up with her provider (3) Thrombocytopenia: Code(s): D69.6 - Thrombocytopenia, unspecified Status: Acute Assessment and Plan: probably from liver disease (4) Amphetamine use: Code(s): F15.90 - Other stimulant use, unspecified, uncomplicated Status: Acute (5) Right atrial mass: Code(s): I51.89 - Other ill-defined heart diseases Status: Acute Assessment and Plan: new finding by food technologist planning to transfer to [facility] (6) Abdominal lymphadenopathy: Code(s): R59.0 - Localized enlarged lymph nodes Status: Acute (7) Encephalopathy: Code(s): G93.40 - Encephalopathy, unspecified Status: Acute Assessment and Plan: resolved h/o drug abuse Subjective Date/time seen: 04/15/25 15:40 Interval history: she is fully awake and coherent, comfortable Review of Systems Review of Systems: All systems reviewed & are unremarkable except as noted in HPI and below Exam Const: General: comfortable and no acute distress HENMT: Face/Nose/Sinus: Normal nares present Eyes: General: appearance normal, both eyes and all related structures Neck: Neck: supple Resp: Auscultation: clear to auscultation bilaterally Cardio: Rate: regular rate GI: Inspection: non-distended GI Palp: Yes Soft to palpation and No Tenderness to palpation present (GI) Skin: Other: chronic wound in left leg- dressing in place Neuro: Speech: normal speech Motor exam (neuro): 5/5 motor strength present throughout Extrem: General: normal to inspection Psych: Affect: Anxious affect present Objective Data Vital Signs Vital Signs: Vital Signs - 24 hr 04/14/25 16:00 04/14/25 19:50 04/14/25 20:00 Temperature 98.4 F Pulse Rate 84 93 89 Respiratory Rate 18 Blood Pressure 136/65 Pulse Oximetry 97 Oxygen Delivery 04/14/25 20:00 04/15/25 00:00 04/15/25 04:00 Temperature Pulse Rate 89 89 Respiratory Rate Blood Pressure Pulse Oximetry Oxygen Delivery Room Air 04/15/25 04:00 04/15/25 08:00 04/15/25 08:40 Temperature 97.5 F L Pulse Rate 86 85 Respiratory Rate 18 Blood Pressure 108/58 L Pulse Oximetry 93 Oxygen Delivery Room Air 04/15/25 10:43 04/15/25 11:23 Temperature 98.1 F Pulse Rate 89 Respiratory Rate 18 Blood Pressure 124/62 Pulse Oximetry 96 Oxygen Delivery Room Air Intake/Output Intake/Output: Intake & Output 04/12/25 04/13/25 04/14/25 04/15/25 23:59 23:59 23:59 23:59 Intake Total 2050 630 1030 1080 Output Total 535 420 4390 400 Balance 1650 120 -20 680 Meds/Results Medications: Active Medications Generic Name Dose Route Start Last Admin Trade Name Freq PRN Reason Stop Dose Admin Acetaminophen 650 mg 04/12/25 16:50 Acetaminophen 650 Mg Suppository RECTAL Q6H PRN Mild Pain (1-3) or Fever Acetaminophen 650 mg 04/13/25 10:25 04/14/25 04:10 Acetaminophen 325 Mg Tablet PO 650 mg Q6H PRN Administration Mild Pain (1-3) or Fever Dextrose 12.5 gm 04/12/25 19:18 Dextrose 50% 25 Gm/50 Ml Syringe IV PUSH PRN PRN Hypoglycemia Protocol Glucagon 1 mg 04/12/25 19:18 Glucagon For Inj 1 Mg Vial IM PRN PRN Hypoglycemia Protocol Glucose 15 gm 04/12/25 19:18 Glucose Oral Gel 15 Gm Of Glucse In 37.5 Gm Tube PO PRN PRN Hypoglycemia Protocol Dextrose 1,000 mls @ 100 mls/hr 04/12/25 19:18 Dextrose 5% 1,000 Ml IVPB PRN PRN Hypoglycemia Protocol Insulin Aspart 7 units 04/13/25 08:00 04/15/25 14:24 Insulin Aspart (*Bkc) 100 Units/Ml 0.083 units/kg (7 units) 7 units SUB-Q Administration [facility] Insulin Glargine 22 units 04/12/25 21:00 04/14/25 21:13 Insulin Glargine (*Bkc) 100 Units/Ml 0.25 units/kg (22 units) 22 units SUB-Q Administration HS OLIVIA Meloxicam 15 mg 04/14/25 21:00 04/14/25 21:13 Meloxicam 7.5 Mg Tablet PO 15 mg HS OLIVIA Administration Methocarbamol 1,000 mg 04/14/25 13:00 04/15/25 14:24 Methocarbamol 500 Mg Tablet PO 1,000 mg QID OLIVIA Administration Pantoprazole Sodium 40 mg 04/15/25 09:00 04/15/25 08:42 Pantoprazole 40 Mg Tablet PO 40 mg QAM OLIVIA Administration Pregabalin 150 mg 04/14/25 14:00 04/15/25 14:24 Pregabalin (*Crx) 75 Mg Capsule PO 150 mg Q8H OLIVIA Administration Radiology Results: ITS Impressions Head CT 04/12/25 14:32 IMPRESSION: 1. Normal brain. No acute intracranial process. Head/Neck CTA 04/12/25 15:43 IMPRESSION: 1. 35% stenosis of the right carotid bulb relative to normal distal artery lumen diameter (NASCET criteria). 2. 0% stenosis of the left carotid bulb relative to normal distal artery lumen diameter. 3. Unremarkable cerebral CT angiogram with no hemodynamically significant stenosis, thrombosis or aneurysm 3. Suggestion of likely hemodynamically significant stenosis at the origins of the left vertebral and dominant right vertebral arteries. Chest/Abdomen/Pelvis CT 04/12/25 16:08 IMPRESSION: 1. Cirrhotic liver with heterogeneous enhancement primarily in the right hepatic lobe likely related to cirrhosis. No discrete hepatic mass is identified however sensitivity is decreased by the background liver disease and streak artifact from patient's arms which were at the patient's side during scanning. Given history of reported known liver cancer would recommend correlation with any prior outside imaging. Alternatively repeat imaging could be obtained with dedicated multiphase pre and postcontrast CT or MRI when patient is able to hold still. 2. Multiple enlarged upper abdominal lymph nodes which are concerning for metastatic disease. 3. Splenomegaly consistent with portal venous hypertension secondary to cirrhosis. 4. Cholelithiasis. Brain MRI 04/14/25 14:46 IMPRESSION: 1. Normal aging brain. No acute intracranial process or abnormally enhancing brain lesions. Cervical Spine CT 04/15/25 12:52 IMPRESSION: 1. No evidence for cervical spine fracture or traumatic subluxation. 2. Multilevel degenerative changes of the cervical spine. 3. 1.2 cm left thyroid nodule. Nonemergent outpatient thyroid ultrasound is recommended for further evaluation. Abdomen MRI 04/15/25 14:53 IMPRESSION: 1. Cirrhotic liver with 14.7 x 8.4 x 8.1 cm heterogeneously enhancing lesion occupying a large portion of the right hepatic lobe which appears to represent a conglomeration of centrally necrotic masses concerning for primary malignancy. 2. Several enlarged periaortic, periportal and portacaval lymph nodes consistent with metastatic disease. 3. Cholelithiasis. 4. Multiple opacities in the dependent lower lobes which could represent atelectasis, mild pulmonary edema or pneumonia. 5. Splenomegaly likely related to portal venous hypertension. Labs Labs: Laboratory Results - last 24 hr 04/13/25 04/14/25 04/14/25 14:54 10:34 16:40 WBC RBC Hgb Hct MCV MCH MCHC RDW Plt Count MPV Immature Gran % (Auto) Neut % (Auto) Lymph % (Auto) [place] % (Auto) Eos % (Auto) Baso % (Auto) Lymph # (Auto) [place] # (Auto) Eos # (Auto) Baso # (Auto) Abs Immat Gran (auto) Absolute Neuts (auto) Absolute Nucleated RBC Nucleated RBC % Sodium Potassium Chloride Carbon Dioxide Anion Gap BUN Creatinine Estim Creat Clear Calc Estimated GFR Glucose POC Capillary Glucose 131 H Calcium Total Bilirubin GGT 142 H AST ALT Alkaline Phosphatase Total Protein Albumin CA 19-9 Antigen 89 H CA 125 Antigen 13.4 Mitochondria M2 Ab <20.0 Actin IgG Antibody 27 H 04/14/25 04/15/25 04/15/25 20:01 05:41 08:27 WBC 5.2 RBC 4.41 Hgb 12.8 Hct 39.1 MCV 88.7 MCH 29.0 MCHC 32.7 RDW 14.2 Plt Count 105 L MPV 9.2 Immature Gran % (Auto) 0.6 H Neut % (Auto) 61.7 Lymph % (Auto) 21.6 [place] % (Auto) 13.0 H Eos % (Auto) 2.5 Baso % (Auto) 0.6 Lymph # (Auto) 1.13 [place] # (Auto) 0.7 H Eos # (Auto) 0.1 Baso # (Auto) 0.0 Abs Immat Gran (auto) 0.03 Absolute Neuts (auto) 3.2 Absolute Nucleated RBC 0.000 Nucleated RBC % 0.0 Sodium 136 L Potassium 3.7 Chloride 103 Carbon Dioxide 26 Anion Gap 7 BUN 21 H Creatinine 0.67 L Estim Creat Clear Calc 88 Estimated GFR > 60 Glucose 139 H POC Capillary Glucose 196 H 134 H Calcium 8.8 Total Bilirubin 0.9 GGT AST 61 H ALT 20 Alkaline Phosphatase 176 H Total Protein 8.6 H Albumin 3.6 CA 19-9 Antigen CA 125 Antigen Mitochondria M2 Ab Actin IgG Antibody 04/15/25 12:03 WBC RBC Hgb Hct MCV MCH MCHC RDW Plt Count MPV Immature Gran % (Auto) Neut % (Auto) Lymph % (Auto) [place] % (Auto) Eos % (Auto) Baso % (Auto) Lymph # (Auto) [place] # (Auto) Eos # (Auto) Baso # (Auto) Abs Immat Gran (auto) Absolute Neuts (auto) Absolute Nucleated RBC Nucleated RBC % Sodium Potassium Chloride Carbon Dioxide Anion Gap BUN Creatinine Estim Creat Clear Calc Estimated GFR Glucose POC Capillary Glucose 176 H Calcium Total Bilirubin GGT AST ALT Alkaline Phosphatase Total Protein Albumin CA 19-9 Antigen CA 125 Antigen Mitochondria M2 Ab Actin IgG Antibody
--- NOTE | 2025-04-15 20:33 | P.PNONC_ITS ---
Progress Note: A&P Assessment and Plan (1) Liver cancer, primary, with metastasis from liver to other site: Code(s): C22.8 - Malignant neoplasm of liver, primary, unspecified as to type Status: Acute Assessment and Plan: patient admitted for Altered mental status and incidental findings of prominent upper abdominal lymphadenopathy including a 6.3 x 2.7 cm portacaval lymph node, a 2.1 x 1.8 standard gastrohepatic lymph node and a 3.7 x 2.7 cm aortocaval lymph node. There were no liver masses or pulmonary masses. Oncology is consulted for work up of abdominal lymphadenopathy concerning for metastatic disease. Past medical hx on records stated liver cancer but patient at admission was unable to provide any information including treatments or outside oncologist. Today, patient was able to give full hx and states that she was diagnosed with stage IV Hepatocellular carcinoma in 02/2025. She is Dr. Santoro in [facility]. She is currently on immunotherapy treatment with last treatment given 04/01/25 and next treatment is due in few weeks. MRI liver done 04/15/25 showed IMPRESSION: 1. Cirrhotic liver with 14.7 x 8.4 x 8.1 cm heterogeneously enhancing lesion oc cupying a large portion of the right hepatic lobe which appears to represent a conglomeration of centrally necrotic masses concerning for primary malignancy. 2. Several enlarged periaortic, periportal and portacaval lymph nodes consistent with metastatic disease. 3. Cholelithiasis. 4. Multiple opacities in the dependent lower lobes which could represent atelectasis, mild pulmonary edema or pneumonia. 5. Splenomegaly likely related to portal venous hypertension. Patient will follow with her oncologist as outpatient. She and daughter are aware of her outpatient treatment in next few weeks. Subjective Date/time seen: 04/15/25 20:33 Review of Systems Review of Systems Patient is sitting up on chair, talking to her daughter. feels well. She denies any f/c, night sweats. No headache, vision changes, dizziness. Denies chest pain, dyspnea, orthopnea. Denies abdominal pain, n/v/d. no hematochezia or melena. Rest of 12 point ROS is negative. Exam Narrative: GENERAL: Alert and orientedx3, no acute distress HEENT: PERRL, EOMI, no scleral icterus NECK: Supple. No meningeal signs. RESPIRATORY: CTAB CARDIOVASCULAR: RRR, no m/g/r ABDOMINAL: Soft, no appreciable tenderness, nondistended. Normoactive BS. MUSCULOSKELETAL: Moves all extremities. No gross deformities. SKIN: Warm, dry, normal color. Chronic ulcerative wounds to L medial lower leg, minimal surrounding erythema. No drainage. NEURO: No focal deficits Objective Data Vital Signs Vital Signs: Vital Signs - 24 hr 04/15/25 00:00 04/15/25 04:00 04/15/25 04:00 Temperature 36.4 C L Pulse Rate 89 89 86 Respiratory Rate 18 Blood Pressure 108/58 L Pulse Oximetry 93 Oxygen Delivery 04/15/25 08:00 04/15/25 08:40 04/15/25 10:43 Temperature 36.7 C Pulse Rate 85 89 Respiratory Rate 18 Blood Pressure 124/62 Pulse Oximetry 96 Oxygen Delivery Room Air 04/15/25 11:23 04/15/25 12:06 04/15/25 16:00 Temperature Pulse Rate 96 100 Respiratory Rate Blood Pressure Pulse Oximetry Oxygen Delivery Room Air 04/15/25 16:00 Temperature 36.3 C L Pulse Rate 94 Respiratory Rate 18 Blood Pressure 127/60 Pulse Oximetry 97 Oxygen Delivery Intake/Output Intake/Output: Intake & Output 04/12/25 04/13/25 04/14/25 04/15/25 23:59 23:59 23:59 23:59 Intake Total 2050 630 1030 1620 Output Total 852 435 3524 800 Balance 1650 -120 -20 820 Meds/Results Medications: Active Medications Generic Name Dose Route Start Last Admin Trade Name Freq PRN Reason Stop Dose Admin Acetaminophen 650 mg 04/12/25 16:50 Acetaminophen 650 Mg Suppository RECTAL Q6H PRN Mild Pain (1-3) or Fever Acetaminophen 650 mg 04/13/25 10:25 04/14/25 04:10 Acetaminophen 325 Mg Tablet PO 650 mg Q6H PRN Administration Mild Pain (1-3) or Fever Dextrose 12.5 gm 04/12/25 19:18 Dextrose 50% 25 Gm/50 Ml Syringe IV PUSH PRN PRN Hypoglycemia Protocol Glucagon 1 mg 04/12/25 19:18 Glucagon For Inj 1 Mg Vial IM PRN PRN Hypoglycemia Protocol Glucose 15 gm 04/12/25 19:18 Glucose Oral Gel 15 Gm Of Glucse In 37.5 Gm Tube PO PRN PRN Hypoglycemia Protocol Dextrose 1,000 mls @ 100 mls/hr 04/12/25 19:18 Dextrose 5% 1,000 Ml IVPB PRN PRN Hypoglycemia Protocol Insulin Aspart 7 units 04/13/25 08:00 04/15/25 17:32 Insulin Aspart (*Bkc) 100 Units/Ml 0.083 units/kg (7 units) 7 units SUB-Q Administration TIDWM OLIVIA Insulin Glargine 22 units 04/12/25 21:00 04/14/25 21:13 Insulin Glargine (*Bkc) 100 Units/Ml 0.25 units/kg (22 units) 22 units SUB-Q Administration HS OLIVIA Meloxicam 15 mg 04/14/25 21:00 04/14/25 21:13 Meloxicam 7.5 Mg Tablet PO 15 mg HS OLIVIA Administration Methocarbamol 1,000 mg 04/14/25 13:00 04/15/25 17:31 Methocarbamol 500 Mg Tablet PO 1,000 mg QID OLIVIA Administration Pantoprazole Sodium 40 mg 04/15/25 09:00 04/15/25 08:42 Pantoprazole 40 Mg Tablet PO 40 mg QAM OLIVIA Administration Pregabalin 150 mg 04/14/25 14:00 04/15/25 14:24 Pregabalin (*Crx) 75 Mg Capsule PO 150 mg Q8H OLIVIA Administration Radiology Results: ITS Impressions Head CT 04/12/25 14:32 IMPRESSION: 1. Normal brain. No acute intracranial process. Head/Neck CTA 04/12/25 15:43 IMPRESSION: 1. 35% stenosis of the right carotid bulb relative to normal distal artery lumen diameter (NASCET criteria). 2. 0% stenosis of the left carotid bulb relative to normal distal artery lumen diameter. 3. Unremarkable cerebral CT angiogram with no hemodynamically significant stenosis, thrombosis or aneurysm 3. Suggestion of likely hemodynamically significant stenosis at the origins of the left vertebral and dominant right vertebral arteries. Chest/Abdomen/Pelvis CT 04/12/25 16:08 IMPRESSION: 1. Cirrhotic liver with heterogeneous enhancement primarily in the right hepatic lobe likely related to cirrhosis. No discrete hepatic mass is identified however sensitivity is decreased by the background liver disease and streak artifact from patient's arms which were at the patient's side during scanning. Given hist ory of reported known liver cancer would recommend correlation with any prior outside imaging. Alternatively repeat imaging could be obtained with dedicated multiphase pre and postcontrast CT or MRI when patient is able to hold still. 2. Multiple enlarged upper abdominal lymph nodes which are concerning for metastatic disease. 3. Splenomegaly consistent with portal venous hypertension secondary to cirrhosis. 4. Cholelithiasis. Brain MRI 04/14/25 14:46 IMPRESSION: 1. Normal aging brain. No acute intracranial process or abnormally enhancing brain lesions. Cervical Spine CT 04/15/25 12:52 IMPRESSION: 1. No evidence for cervical spine fracture or traumatic subluxation. 2. Multilevel degenerative changes of the cervical spine. 3. 1.2 cm left thyroid nodule. Nonemergent outpatient thyroid ultrasound is recommended for further evaluation. Abdomen MRI 04/15/25 14:53 IMPRESSION: 1. Cirrhotic liver with 14.7 x 8.4 x 8.1 cm heterogeneously enhancing lesion occupying a large portion of the right hepatic lobe which appears to represent a conglomeration of centrally necrotic masses concerning for primary malignancy. 2. Several enlarged periaortic, periportal and portacaval lymph nodes consistent with metastatic disease. 3. Cholelithiasis. 4. Multiple opacities in the dependent lower lobes which could represent atelectasis, mild pulmonary edema or pneumonia. 5. Splenomegaly likely related to portal venous hypertension. Labs Labs: Laboratory Results - last 24 hr 04/13/25 04/14/25 04/15/25 14:54 10:34 05:41 WBC 5.2 RBC 4.41 Hgb 12.8 Hct 39.1 MCV 88.7 MCH 29.0 MCHC 32.7 RDW 14.2 Plt Count 105 L MPV 9.2 Immature Gran % (Auto) 0.6 H Neut % (Auto) 61.7 Lymph % (Auto) 21.6 [place] % (Auto) 13.0 H Eos % (Auto) 2.5 Baso % (Auto) 0.6 Lymph # (Auto) 1.13 [place] # (Auto) 0.7 H Eos # (Auto) 0.1 Baso # (Auto) 0.0 Abs Immat Gran (auto) 0.03 Absolute Neuts (auto) 3.2 Absolute Nucleated RBC 0.000 Nucleated RBC % 0.0 Sodium 136 L Potassium 3.7 Chloride 103 Carbon Dioxide 26 Anion Gap 7 BUN 21 H Creatinine 0.67 L Estim Creat Clear Calc 88 Estimated GFR > 60 Glucose 139 H POC Capillary Glucose Calcium 8.8 Total Bilirubin 0.9 GGT 142 H AST 61 H ALT 20 Alkaline Phosphatase 176 H Total Protein 8.6 H Albumin 3.6 CA 19-9 Antigen 89 H CA 125 Antigen 13.4 Mitochondria M2 Ab <20.0 Actin IgG Antibody 27 H 04/15/25 04/15/25 04/15/25 08:27 12:03 16:43 WBC RBC Hgb Hct MCV MCH MCHC RDW Plt Count MPV Immature Gran % (Auto) Neut % (Auto) Lymph % (Auto) [place] % (Auto) Eos % (Auto) Baso % (Auto) Lymph # (Auto) [place] # (Auto) Eos # (Auto) Baso # (Auto) Abs Immat Gran (auto) Absolute Neuts (auto) Absolute Nucleated RBC Nucleated RBC % Sodium Potassium Chloride Carbon Dioxide Anion Gap BUN Creatinine Estim Creat Clear Calc Estimated GFR Glucose POC Capillary Glucose 134 H 176 H 250 H Calcium Total Bilirubin GGT AST ALT Alkaline Phosphatase Total Protein Albumin CA 19-9 Antigen CA 125 Antigen Mitochondria M2 Ab Actin IgG Antibody
[2025-04-15] MEDS: MELOXICAM 7.5 MG TABLET 15 MG PO (21:19)
[2025-04-15] MEDS: INSULIN GLARGINE (*BKC) 100 UNITS/ML 22 UNITS SUB-Q (21:32)
[2025-04-16] VITALS (10 sets, daily range): BP systolic 116–128; BP diastolic 48–65; PULSE 82–94; RESP 16–20; TEMP 35.8–36.3; O2SAT 96–99
[2025-04-16] MEDS: PREGABALIN (*CRX) 75 MG CAPSULE 150 MG PO ×2 (05:56→13:34)
[2025-04-16 06:07] LABS: Hematocrit 37.9 % (37.0-47.0); Hemoglobin 12.7 g/dL (12.0-15.0); Immature Granulocyte Percent A 0.5 % (0-0.5); Lymphocytes Absolute Auto 1.03 K/mm3 (0.9-3.2); Mean Corpuscular HGB Conc 33.5 g/dl (32-36); Mean Corpuscular Hemoglobin 29.4 pg (26-34); Mean Corpuscular Volume 87.7 fl (80-100); Nucleated Red Blood Cells Absolute Auto 0.000 K/mm3 (0.0-0.012); Nucleated Red Blood Cells Perc 0.0 % (0.0-0.2); Platelet Count Result 102 k/mm3 (150-375); Red Blood Count 4.32 M/mm3 (4.2-5.4); White Blood Count 4.2 K/mm3 (4.5-10.0)
[2025-04-16 06:27] LABS: Alanine Aminotransferase 21 U/L (6-35); Albumin Level 3.5 g/dL (3.5-5.1); Alkaline Phosphatase 188 U/L (38-126); Anion Gap 4 mmol/L (4-12); Aspartate Amino Transferase 63 U/L (14-36); Bilirubin,Total 0.8 mg/dL (0.2-1.3); Blood Urea Nitrogen 19 mg/dL (7-17); Calcium 8.8 mg/dL (8.4-10.2); Carbon Dioxide 29 mmol/L (22-30); Chloride 102 mmol/L (98-107); Estimated CRCL calculation 90 ml/min; Estimated Glomerular Filt Rate > 60; Glucose 167 mg/dL (65-110); Potassium 3.8 mmol/L (3.4-5.0); Sodium 135 mmol/L (137-145); Total Protein 8.0 g/dL (6.3-8.2)
[2025-04-16] MEDS: PANTOPRAZOLE 40 MG TABLET PO (08:28)
[2025-04-16] MEDS: INSULIN ASPART (*BKC) 100 UNITS/ML 7 UNITS SUB-Q ×3 (08:35→17:30)
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
[2025-04-16 14:08] LABS: ANA by IFA Rfx Titer/Pattern Positive (.)
[2025-04-17 18:08] LABS: Phosphatidylethanol (PEth) Negative (.)
--- NOTE | 2025-04-18 15:08 | PM.TDS ---
Transfer Discharge Sum: Prov Provider Date of admission: 04/13/25 11:53 Primary care physician: Nayana Garber, PA-C Admitting clinician: Jeffery Bose MD Consults: 04/12/25 Wound/ET Consult Routine Reason for Consult:: wounds left leg, left foot and right heel 04/12/25 19:21 Consult to Physician Routine Comment: Spoke to DR @0818 04/13 [facility] Consulting Provider: Dieter Diehl at home independent call center agent/MD group to consult: Neurology in the am Reason for consultation: AMS Has provider been notified: Yes 04/13/25 10:48 Consult to Physician Routine Comment: Spoke to exchange @1208 04/13 [facility] Consulting Provider: Fidencio Camargo at home independent call center agent/MD group to consult: Heme/onc Reason for consultation: Concern for metastatic disease Has provider been notified: Yes 04/13/25 15:27 Consult to Physician Routine Comment: Per notes PT has been seen 04/13 [facility] Consulting Provider: Doug Huffman at home independent call center agent/MD group to consult: Cardiology Reason for consultation: Echo findings - echogenic mass, possible MAURICE need Has provider been notified: Yes Attending physician on discharge: Sue Kearney Discharging clinician: Marizol Isidro Anticipated date of transfer: 04/17/25 [facility]: Admitting Diagnosis Discharge Date 04/16/25 Admitting Diagnosis - altered mental status - amphetamine abuse - history of liver cancer DS: Discharge Diagnosis Discharge Diagnosis (1) Right atrial mass: Code(s): I51.89 - Other ill-defined heart diseases Status: Acute (2) Altered mental status: Qualifiers: Altered mental status type: unspecified Qualified Code(s): R41.82 - Altered mental status, unspecified Code(s): R41.82 - Altered mental status, unspecified Status: Acute (3) History of liver cancer: Code(s): Z85.05 - Personal history of malignant neoplasm of liver Status: Acute (4) Portal hypertension: Code(s): K76.6 - Portal hypertension Status: Acute (5) Amphetamine use: Code(s): F15.90 - Other stimulant use, unspecified, uncomplicated Status: Acute (6) T2DM (type 2 diabetes mellitus): Code(s): E11.9 - Type 2 diabetes mellitus without complications Status: Acute (7) Tobacco dependence: Code(s): F17.200 - Nicotine dependence, unspecified, uncomplicated Status: Acute (8) History of fusion of cervical spine: Code(s): Z98.1 - Arthrodesis status Status: Acute (9) Thyroid nodule: Code(s): E04.1 - Nontoxic single thyroid nodule Status: Acute Transfer Discharge Sum: Med Medications Active and Home Medications: Home Medications cyclobenzaprine 10 mg tablet 10 mg PO BID 05/23/23 [History Confirmed 04/12/25] glipizide 10 mg tablet 10 mg PO BID 05/23/23 [History Confirmed 04/12/25] insulin detemir U-100 100 unit/mL (3 mL) subcutaneous pen 12 unit subcut HS 05/23/23 [History Confirmed 04/12/25] meloxicam 15 mg tablet 15 mg PO HS 05/23/23 [History Confirmed 04/12/25] esomeprazole magnesium 40 mg capsule,delayed release 40 mg PO Q24H 04/12/25 [History Confirmed 04/12/25] methocarbamol 500 mg tablet 1,000 mg PO QID 04/12/25 [History Confirmed 04/12/25] omeprazole 40 mg capsule,delayed release 40 mg PO DAILY 04/12/25 [History Confirmed 04/12/25] pregabalin 150 mg capsule 150 mg PO Q8H 04/14/25 [History Confirmed 04/14/25] Transfer Discharge Sum: Hosp Hospital Course Hospital course: 60-year-old female with a PMHx: of type 2 diabetes, uncontrolled with history of toe amputation, amphetamine use, history of TBI in November 2023 that resulted in multiple cervical fractures. Presented to the emergency room via EMS with reports made by family that patient was altered mental status. ED Work-up reveals: Laboratory studies without significant abnormalities. No leukocytosis or anemia. Shows chronic thrombocytopenia. CMP was some evidence of dehydration but kidney function is stable. Blood glucose mildly elevated to 247. Lactic acid within normal range. Chronic mild elevation of liver enzymes, appear consistent with previous records. Ammonia within normal range. Viral swabs are negative. Alcohol level negative. UA with 3+ ketones, but no signs of infection. UDS did result positive for amphetamines and cannabinoids. EKG with sinus tachycardia, no concerning ST changes. Troponin is undetectable. CT brain without acute findings. CTA of brain and carotids showing very mild carotid stenosis on R, possible hemodynamically significant vertebral artery stenosis. No large vessel occlusion. No aneurysm. CT of chest/abdomen/pelvis was obtained as part of altered mental status workup and shows findings consistent with family's report of metastatic liver cancer. No other acute findings. Patient was admitted for further work-up. Patient underwent MRI brain which showed no acute process. Neurology was consulted who felt altered mental status likely secondary to drug use. Patient's mental status returned to baseline. Echocardiogram was obtained which incidentally showed a large right atrial mass. 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 Cardiology recommended transfer for cardiothoracic surgery evaluation. Patient was accepted in transfer to [place]. Patient transferred in stable condition. Of note, patient has history of stage IV liver cancer. Patient underwent MRCP which was consistent with this. She is currently following at [facility] and is receiving monthly immunotherapy. Patient Condition: Stable Time Spent with Patient Time attestation: Total time spent providing and/or coordinating transfer services: Total time spent: Greater than 30 minutes Exam Narrative: General: NAD Eyes: EOMI ENT: neck supple Cardiovascular: Regular rate and rhythm Respiratory: Clear to auscultation, respirations even and unlabored on RA Gastrointestinal: Soft, non tender Genitourinary: no suprapubic tenderness Musculoskeletal: No edema Skin: warm, dry Neuro: Alert and oriented x4. 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 Otherwise full strength. Psych: tearful DS: Data Data Completed and Pending Completed studies during hospitalization: ITS Impressions Head CT 04/12/25 14:32 IMPRESSION: 1. Normal brain. No acute intracranial process. Head/Neck CTA 04/12/25 15:43 IMPRESSION: 1. 35% stenosis of the right carotid bulb relative to normal distal artery lumen diameter (NASCET criteria). 2. 0% stenosis of the left carotid bulb relative to normal distal artery lumen diameter. 3. Unremarkable cerebral CT angiogram with no hemodynamically significant stenosis, thrombosis or aneurysm 3. Suggestion of likely hemodynamically significant stenosis at the origins of the left vertebral and dominant right vertebral arteries. Chest/Abdomen/Pelvis CT 04/12/25 16:08 IMPRESSION: 1. Cirrhotic liver with heterogeneous enhancement primarily in the right hepatic lobe likely related to cirrhosis. No discrete hepatic mass is identified however sensitivity is decreased by the background liver disease and streak artifact from patient's arms which were at the patient's side during scanning. Given history of reported known liver cancer would recommend correlation with any prior outside imaging. Alternatively repeat imaging could be obtained with dedicated multiphase pre and postcontrast CT or MRI when patient is able to hold still. 2. Multiple enlarged upper abdominal lymph nodes which are concerning for metastatic disease. 3. Splenomegaly consistent with portal venous hypertension secondary to cirrhosis. 4. Cholelithiasis. Brain MRI 04/14/25 14:46 IMPRESSION: 1. Normal aging brain. No acute intracranial process or abnormally enhancing brain lesions. Cervical Spine CT 04/15/25 12:52 IMPRESSION: 1. No evidence for cervical spine fracture or traumatic subluxation. 2. Multilevel degenerative changes of the cervical spine. 3. 1.2 cm left thyroid nodule. Nonemergent outpatient thyroid ultrasound is recommended for further evaluation. Abdomen MRI 04/15/25 14:53 IMPRESSION: 1. Cirrhotic liver with 14.7 x 8.4 x 8.1 cm heterogeneously enhancing lesion occupying a large portion of the right hepatic lobe which appears to represent a conglomeration of centrally necrotic masses concerning for primary malignancy. 2. Several enlarged periaortic, periportal and portacaval lymph nodes consistent with metastatic disease. 3. Cholelithiasis. 4. Multiple opacities in the dependent lower lobes which could represent atelectasis, mild pulmonary edema or pneumonia. 5. Splenomegaly likely related to portal venous hypertension. Labs on day of discharge: Labs from last 24 hours 04/14/25 05:39 Phosphatidylethanol Negative Phosphatidylethanol Quant Negative
== END 2025-04-16 19:35 | disposition short-term general hospital (02) | DRG 91 ==
LOC: ANHED 17:03 → ANH3MED 18:14
PROVIDERS: Emergency Medicine; Internal Medicine; Internal Medicine Cardiovascular Disease; Nurse Practitioner; Nurse Practitioner Family; Admitting Provider General Practice; Emergency Provider Physician Assistant; PCP Physician Assistant; Visit Provider Physician Assistant
PROC: B24BZZ4 Ultrasonography of Heart with Aorta, Transesophageal (ICD-10-PCS; CPT 93312; principal; 2025-04-14 08:30)
DX: G92.8 Other toxic encephalopathy (principal); G93.41 Metabolic encephalopathy; C22.8 Malignant neoplasm of liver, primary, unspecified as to type; C77.2 Secondary and unspecified malignant neoplasm of intra-abdominal lymph nodes; K76.6 Portal hypertension; E87.8 Other disorders of electrolyte and fluid balance, not elsewhere classified; F15.10 Other stimulant abuse, uncomplicated; I65.03 Occlusion and stenosis of bilateral vertebral arteries; R47.89 Other speech disturbances; D69.6 Thrombocytopenia, unspecified; E86.0 Dehydration; D15.1 Benign neoplasm of heart; E11.9 Type 2 diabetes mellitus without complications; I35.0 Nonrheumatic aortic (valve) stenosis; K74.60 Unspecified cirrhosis of liver; K80.20 Calculus of gallbladder without cholecystitis without obstruction; E04.1 Nontoxic single thyroid nodule; R59.0 Localized enlarged lymph nodes; Z20.822 Contact with and (suspected) exposure to COVID-19; F17.210 Nicotine dependence, cigarettes, uncomplicated; Z87.820 Personal history of traumatic brain injury; Z89.411 Acquired absence of right great toe; E66.9 Obesity, unspecified; Z68.31 Body mass index [BMI] 31.0-31.9, adult; Z98.1 Arthrodesis status
CPT/HCPCS: 36415; 36600; 70450; 70496; 70498; 70553; 71260; 72125; 73030; 74177; 74183; 80053; 80307; 80321; 81001; 82077; 82140; 82375; 82378; 82390; 82550; 82805; 82948; 82977; 83036; 83050; 83605; 83735; 84484; 85018; 85025; 85055; 85610; 85730; 86015; 86038; 86301; 86304; 86381; 87637; 92507; 92523; 92610; 93005; 93312; 93320; 93325; 96361; 96365; 96375; 97162; 97166; 97530; 97535; 99285; A9270; A9577; C8929; G0378; G0480; J1815; J2250; J3010; J3475; J7030; J7040; Q9957; Q9967